=== PATIENT | female | born 1935 | race Caucasian/White ===

== ENCOUNTER 2019-11-29 08:55 | Outpatient (RCR) | payer MEDICARE, SELFPAY ==
[2019-09-14 09:55] LABS: INR 1.6
[2019-10-18 08:56] LABS: INR 1.9; Prothrombin Time 20.4 Seconds (9.64-11.0)
[2019-11-29 09:13] LABS: INR 2.5; Prothrombin Time 25.2 Seconds (9.64-11.0)
== END 2019-12-13 23:59 | disposition home or self-care (01) ==
LOC: CHSLAB 08:55
PROVIDERS: PCP Internal Medicine Cardiovascular Disease; Visit Provider Internal Medicine Cardiovascular Disease
DX: I48.91 Unspecified 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 (principal); Z79.01 Long term (current) use of anticoagulants
CPT/HCPCS: 36415; 85610

== ENCOUNTER 2020-03-27 09:06 | Outpatient (RCR) | payer MEDICARE, SELFPAY ==
[2020-01-04 09:41] LABS: INR 2.3; Prothrombin Time 22.8 Seconds (9.64-11.0)
[2020-02-14 07:43] LABS: INR 2.9; Prothrombin Time 28.5 Seconds (9.64-11.0)
[2020-03-27 09:38] LABS: INR 2.1; Prothrombin Time 20.8 Seconds (9.64-11.0)
== END 2020-04-03 23:59 | disposition home or self-care (01) ==
LOC: CHSLAB 09:06
PROVIDERS: PCP Internal Medicine Cardiovascular Disease; Visit Provider Internal Medicine Cardiovascular Disease
DX: I48.91 Unspecified 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 (principal); Z79.01 Long term (current) use of anticoagulants
CPT/HCPCS: 36415; 85610

== ENCOUNTER 2020-07-17 08:34 | Outpatient (RCR) | payer MEDICARE, SELFPAY ==
[2020-05-08 09:56] LABS: INR 3.2; Prothrombin Time 31.5 Seconds (9.64-11.0)
[2020-06-05 08:43] LABS: INR 2.8; Prothrombin Time 27.6 Seconds (9.64-11.0)
[2020-07-17 09:01] LABS: INR 2.8; Prothrombin Time 27.6 Seconds (9.64-11.0)
== END 2020-08-06 23:59 | disposition home or self-care (01) ==
LOC: CHSLAB 08:34
PROVIDERS: PCP Internal Medicine Cardiovascular Disease; Visit Provider Internal Medicine Cardiovascular Disease
DX: I48.0 Paroxysmal 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 (principal); Z79.01 Long term (current) use of anticoagulants
CPT/HCPCS: 36415; 85610

== ENCOUNTER 2020-10-09 08:09 | Outpatient (RCR) | payer MEDICARE, SELFPAY ==
[2020-08-28 08:28] LABS: INR 2.5; Prothrombin Time 25.5 Seconds (9.64-11.0)
[2020-10-09 08:33] LABS: INR 2.1; Prothrombin Time 22.3 Seconds (9.50-12.10)
== END 2020-11-26 23:59 | disposition home or self-care (01) ==
LOC: CHSLAB 08:09
PROVIDERS: PCP Family Medicine; Visit Provider Internal Medicine Cardiovascular Disease
DX: I48.0 Paroxysmal 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 (principal); Z79.01 Long term (current) use of anticoagulants
CPT/HCPCS: 36415; 85610

== ENCOUNTER 2020-10-18 05:47 | Emergency (ER) | payer MEDICARE, SELFPAY ==
[2020-10-18 06:16] VITALS: BP 125/68; PULSE 93; RESP 20; TEMP 37.5; O2SAT 96
[2020-10-18] MEDS: ACETAMINOPHEN 500 MG TABLET 1000 MG PO (06:23)
[2020-10-18 06:32] LABS: Influenza Control Valid (Valid)
[2020-10-18 06:38] LABS: SARS-CoV-2 Ag Positive (Negative)
--- NOTE | 2020-10-18 06:48 | ED.GENADULT ---
HPI - General Adult General Chief complaint: Unspecified Stated complaint: Body aches Source: patient and family History of Present Illness HPI narrative: This an 85-year-old female that presents with a mild cough otherwise asymptomatic with no shortness of breath no audible wheezing temperature is 37.5? with O2 saturations of 96% on room air. The patient believes that she has been exposed to COVID-19 while at work with people that are not wearing masks. The patient wanted to come in to be tested, again asymptomatic except for mild nonproductive cough. patient with a history of 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, hypertension and hyperlipidemia. Onset (ago): day(s) Severity: mild Related Data Home Medications Medication Instructions Recorded Confirmed hydrochlorothiazide 25 mg tablet 25 mg PO DAILY 05/16/20 10/18/20 losartan 100 mg tablet 100 mg PO DAILY 05/16/20 10/18/20 warfarin 4 mg tablet 4 mg PO DAILY 05/16/20 10/18/20 Allergies Allergy/AdvReac Type Severity Reaction Status Date / Time No Known Allergies Allergy Unknown Verified 05/16/20 10:20 Review of Systems Review of Systems: All systems reviewed & are unremarkable except as noted in HPI and below [facility] Past Medical History Medical History (Updated 10/18/20 @ 06:52 by Grant Alexander MD) Atrial fibrillation, chronic Hyperlipidemia Hypertension Surgical History Surgical History Hx of tonsillectomy Family History Family History Father Family history of malignant neoplasm Social History Social History Smoking status: Never smoker Exam Const: General: cooperative, comfortable, no acute distress and well developed HENMT: Head: normal to inspection General nose exam: Normal external nose present Face and sinus: normal facial exam Mouth: Yes Normal oral and palatal mucosa present Eyes: General: appearance normal, both eyes and all related structures Eyelids: eyelids normal Conjunctivae: conjunctivae normal Sclera: sclerae normal Pupils: Equal, round and reactive pupils present Neck: Neck: normal visual inspection Chest: Chest palpation & inspection: normal inspection of the chest and normal palpation of entire chest wall Resp: Effort & Inspection: normal respiratory effort and able to speak in complete sentences Auscultation: clear to auscultation bilaterally Cardio: Jugular venous distension: no JVD Palpation: normal PMI Rate: regular rate Rhythm: abnormal rhythm Heart sounds: S1 normal heart sound present and S2 normal heart sound present GI: Inspection: normal to inspection Percussion: Yes normal to percussion Back/Spine/Pelvis: Back: no CVA tenderness Skin: General skin exam: normal color and no rashes or lesions noted Course Course Emergency Course: Patient told that she was COVID positive and with no symptoms can be discharged home and advised to self isolate and follow-up with primary care physician if having increased symptoms Vital Signs Vital signs: Vital Signs Temperature 37.5 C 10/18/20 06:16 Pulse Rate 93 10/18/20 06:16 Respiratory Rate 20 10/18/20 06:16 Blood Pressure 125/68 10/18/20 06:16 Pulse Oximetry 96 10/18/20 06:16 Temperature 37.5 C 10/18/20 06:16 Pulse Rate 93 10/18/20 06:16 Respiratory Rate 20 10/18/20 06:16 Blood Pressure 125/68 10/18/20 06:16 Pulse Oximetry 96 10/18/20 06:16 Medical Decision Making Vital Signs Vital Signs: Vital Signs Temperature 37.5 C 10/18/20 06:16 Pulse Rate 93 10/18/20 06:16 Respiratory Rate 20 10/18/20 06:16 Blood Pressure 125/68 10/18/20 06:16 Pulse Oximetry 96 10/18/20 06:16 Temperature 37.5 C 10/18/20 06:16 Pulse Rate 93 10/18/20 06:16 Respiratory Rate 20 10/18/20 06:16 Blood Pressure 125/68 10/18/20 06:16 Pulse Oximetry 96
[2020-10-18 06:55] VITALS: BP 128/80; PULSE 80; RESP 20; TEMP 37.3; O2SAT 96
== END 2020-10-18 07:03 | disposition home or self-care (01) ==
PROVIDERS: Emergency Provider Emergency Medicine; PCP Family Medicine
DX: U07.1 COVID-19 (principal)
CPT/HCPCS: 87426; 87804; 99283; C9803

== ENCOUNTER 2020-10-28 09:32 | Inpatient (IN) | payer MEDICARE, SELFPAY ==
[2020-10-28] VITALS (8 sets, daily range): BP systolic 111–136; BP diastolic 52–63; PULSE 64–74; RESP 16–22; TEMP 35.7–36.6; O2SAT 93–100; BMI 31.0
--- NOTE | ~2020-10-28 | XR_ITS ---
EXAMINATION: XR chest 1V portable DATE: 10/28/2020 12:06 INDICATION: Dyspnea. COVID-19 positive. TECHNIQUE: A single frontal view of the chest was obtained. COMPARISON: None. FINDINGS: There are mild airspace opacities in the right mid and lower lung zones and left lower lung zone with a peripheral predominance. No pleural effusion or pneumothorax. The heart size is normal. IMPRESSION: 1. Mild airspace opacities in the right mid and lower lung zones and left lower lung zone, consistent with pneumonia. Reviewed, dictated and finalized at location B. MACY RESIDENT
--- NOTE | 2020-10-28 09:39 | ECG_ITS ---
Measurements Intervals [place] Rate: 71 P: 80 MA: 148 QRS: -50 QRSD: 108 T: 55 QT: 387 QTc: 422 Interpretive Statements SINUS RHYTHM LEFT AXIS DEVIATION INCOMPLETE RIGHT BUNDLE BRANCH BLOCK BORDERLINE ST ABNORMALITY- ANTEROLATERAL LEADS BASELINE ARTIFACT- II, III, AVR, AVL, V1 BORDERLINE ECG Electronically Signed On 10-28-2020 10:41:38 [employer] WORK[employer] by Adán Gunter D.O.
[2020-10-28] MEDS: SODIUM CHLORIDE 0.9% IV 1,000 ML 999 ML IV CONT ×2 (09:46→16:51)
--- NOTE | 2020-10-28 10:06 | ED.WEAKNESS ---
HPI - Weakness General Source: patient and family Mode of arrival: EMS Limitations: no limitations History of Present Illness HPI Narrative: 85-year-old woman comes in today complaining of weakness and mild shortness of breath. Patient states that she was diagnosed 10 days ago with COVID-19. she has had some diarrhea. Family states that she has not been eating or drinking for the last few days. She denies chest pain, vomiting, sputum production, sore throat, nasal congestion, fever, abdominal pain, blood in her stools, dysuria or hematuria. She denies history of lung disease. MD Complaint: generalized weakness Onset (ago): day(s) Duration: constant Location: generalized Migration: none Severity: moderate Relieving factors: none Exacerbating factors: none Context: recent illness Associated symptoms: loss of appetite, nausea/vomiting, myalgias and shortness of breath Related Data Home Medications Medication Instructions Recorded Confirmed hydrochlorothiazide 25 mg tablet 25 mg PO DAILY 05/16/20 10/28/20 losartan 100 mg tablet 100 mg PO DAILY 05/16/20 10/28/20 warfarin 4 mg tablet 4 mg PO DAILY 05/16/20 10/28/20 Allergies Allergy/AdvReac Type Severity Reaction Status Date / Time No Known Allergies Allergy Unknown Verified 10/24/20 12:11 Review of Systems Constitutional: Constitutional: Denies chills, Denies fever(s) and Reports weakness Eyes: Eyes: Denies change in vision and Denies photophobia ENT: Denies dysphagia, Denies nasal congestion and Denies sore throat Cardiovascular: Cardiovascular: Denies chest pain and Denies radiating jaw, neck or arm pain Respiratory: Respiratory: Denies cough, Reports dyspnea and Denies wheezing Gastrointestinal: Gastrointestinal: Denies abdominal pain, Reports diarrhea, Reports nausea and Denies vomiting Genitourinary: Genitourinary: Denies hematuria and Denies dysuria Musculoskeletal: Musculoskeletal: Denies back pain, Denies arthralgias and Denies joint swelling Integumentary/Breasts: Skin/Breast: Denies pruritus, Denies erythema and Denies rash Neurologic: Denies vertigo, Denies dizziness, Denies syncope and Reports headache(s) Hematologic/Lymphatic: Hematologic/Lymphatic: Denies easy bleeding and Denies easy bruising Allergic/Immunologic: Allergic/Immunologic: Denies lip swelling and Denies throat swelling [facility] Past Medical History Medical History (Updated 10/28/20 @ 17:38 by Duncan Dover MD) Atrial fibrillation, chronic Hyperlipidemia Hypertension Surgical History Surgical History Hx of tonsillectomy Family History Family History Father Family history of malignant neoplasm Social History Social History (Updated 10/28/20 @ 10:11 by Dunacn Dover MD) Smoking status: Never smoker Alcohol intake: former Drinks per week: 7 Substance use: never Living arrangements: with family Gender identity (if verbalized by the patient): Female Spiritual care concerns: No Exam Const: General: alert Other: Follow-up acute distress. oriented to person, place, month HENMT: Head: normal to inspection General nose exam: Normal nares present Face and sinus: normal facial exam Mouth: Yes moist mucous membranes Throat: posterior oropharynx normal Eyes: Conjunctivae: conjunctivae normal Pupils: Equal, round and reactive pupils present EOM: EOMs intact bilaterally Resp: Effort & Inspection: normal respiratory effort Auscultation: wheezes (bibasilar, faint expiratory) Cardio: Rate: regular rate Rhythm: regular rhythm Heart sounds: no murmurs GI: GI Palp: Yes Soft to palpation, No Tenderness to palpation present (GI) and No Guarding due to palpation present (GI) Auscultation: normal bowel sounds Skin: General skin exam: normal color, no jaundice and no pallor Rashes: no rashes Neuro: General: moves all extremities, n
[2020-10-28 10:14] LABS: Eosinophils Absolute Auto 0.01 K/mm3 (0.02-0.50); Eosinophils Percent Auto 0.2 % (1.0-6.0); Hemoglobin 12.4 g/dL (11.7-13.8); Immature Granulocyte Absolute 0.02 K/mm3 (0.00-0.00); Immature Granulocyte Percent A 0.4 % (0.0-0.0); Lymphocytes Absolute Auto 0.41 K/mm3 (1.10-4.50); Lymphocytes Percent Auto 8.1 % (18.0-42.0); Mean Corpuscular HGB Conc 34.4 g/dL (32.0-36.0); Mean Corpuscular Hemoglobin 27.9 pg (27.0-31.0); Mean Corpuscular Volume 81.1 fL (78.0-102.0); Mean Platelet Volume 8.9 fl (9.2-11.8); Monocytes Absolute Auto 0.31 K/mm3 (0.10-0.90); Monocytes Percent Auto 6.2 % (2.0-11.0); Neutrophils Absolute Auto 4.3 K/mm3 (1.7-7.2); Neutrophils Percent Auto 85.1 % (50.0-70.0); Platelet Count Result 267 K/mm3 (150-420); Red Blood Count 4.44 M/mm3 (4.20-5.40); Red Cell Distribution Width 13.3 % (11.6-14.4)
[2020-10-28 10:19] LABS: Base Excess ABG 4.2 mmol/L (0-2); HCO3 ABG 24.5 mmol/L (23-29); Oxygen Content ABG 18.9 %vol (16.0-22.0); Oxygen Saturation ABG 98.9 % (95-97); Oxyhemoglobin 98.2 % (94-100); PCO2 ABG 25.3 mmHg (35-45); PO2 ABG 156.3 mmHg (75-85); Total Hemoglobin 13.5 g/dL
[2020-10-28 10:21] LABS: Device NASAL CANNULA; Site Drawn RIGHT BRACHIAL
[2020-10-28 10:31] LABS: Influenza Control Valid (Valid)
[2020-10-28 10:32] LABS: BNP 14 pg/mL (0-100)
[2020-10-28 10:34] LABS: Alanine Aminotransferase 17 U/L (14-59); Albumin Level 2.8 g/dL (3.4-5.0); Alkaline Phosphatase 68 U/L (46-116); Anion Gap 10 mmol/L (8-16); Aspartate Amino Transferase 21 U/L (15-37); Bilirubin,Total 0.6 mg/dL (0.00-1.00); Blood Urea Nitrogen 38 mg/dL (7-18); Calcium 8.2 mg/dL (8.5-10.1); Carbon Dioxide 26 mmol/L (21-32); Chloride 97 mmol/L (98-108); Estimated Glomerular Filt Rate 30; Glucose 127 mg/dL (70-99); Osmolality Calculated 287 mOsm/kg (285-295); Potassium 3.1 mmol/L (3.5-5.1); Sodium 133 mmol/L (136-145); Total Protein 6.9 g/dL (6.4-8.2)
[2020-10-28 10:35] LABS: D Dimer < 0.19 mg/L (0.19-0.50); INR 1.6; Partial Thromboplastin Time 46.1 SEC (23.90-30.70); Prothrombin Time 16.2 Seconds (9.64-11.0)
[2020-10-28 11:55] LABS: Lactic Acid Reflex 1.3 mmol/L (0.4-2.0)
--- NOTE | 2020-10-28 12:10 | ADMGEN ---
This patient, Quin Talley, was admitted to 2nd Floor Room 209-1. Patient/family oriented to hospital policies and general routines including ID bracelet, bed and alarms, visiting hours, pain management, procedures, bathroom and other care routines, personal items, smoking policy, room service/diet, and visiting hours. Information on how to activate the Rapid Response Team has been discussed. Patient/Family are encouraged to report perceived risks to care and to ask questions if they do not understand what they are told or what they should do.
--- NOTE | 2020-10-28 13:55 | PM.IMHP ---
H&P: HPI History of Present Illness Date/Time: 10/28/20 13:55 Chief Complaint: Shortness of breath, fatigue, chills, and diarrhea Narrative: Quin Talley is a 85 year old female that presented to urgent care with generalized weakness, shortness of breath, chills, diarrhea, and decreased appetite. Patient has a past medical history of A. fib, hyperlipidemia and hypertension. According to patient she tested positive for Covid 1 10/18/2020. Yesterday 10/27/2020 was her last day of quarantine. Patient noted that her condition did not improve, patient states that I was miserable . She noted that she did have episodes of diarrhea ,she had a low-grade temperature of 99.0, she also experiences some shortness of breath with a productive cough ,clear white foamy sputum. Patient also noted that she had no desire to consume any fluids or eat. Patient did not receive any treatment for her Covid diagnosis. Patient sodium level 133 her potassium level 3.1 creatinine 1.65 lactic acid within normal limits. Patient is being admitted for pneumonia and Covid Review of Systems Review of Systems: All systems reviewed & are unremarkable except as noted in HPI and below (10 point system review) [facility] Past Medical History Medical History (Updated 10/28/20 @ 14:03 by JOSE ANGEL Alicea) Atrial fibrillation, chronic Hyperlipidemia Hypertension Surgical History Surgical History Hx of tonsillectomy Family History Family History Father Family history of malignant neoplasm Social History Social History (Updated 10/28/20 @ 10:11 by Duncan Dover MD) Smoking status: Never smoker Alcohol intake: former Drinks per week: 7 Substance use: never Living arrangements: with family Gender identity (if verbalized by the patient): Female Spiritual care concerns: No Meds Home Medications and Allergies Home Medications Medication Instructions Recorded Confirmed Type hydrochlorothiazide 25 mg tablet 25 mg PO DAILY 05/16/20 10/28/20 History losartan 100 mg tablet 100 mg PO DAILY 05/16/20 10/28/20 History warfarin 4 mg tablet 4 mg PO DAILY 05/16/20 10/28/20 History Allergies Allergy/AdvReac Type Severity Reaction Status Date / Time No Known Allergies Allergy Unknown Verified 10/24/20 12:11 Vital Signs Vital Signs - 24 hr 10/28/20 09:35 10/28/20 11:20 10/28/20 11:59 Temperature 97.9 F Pulse Rate 73 68 68 Respiratory Rate 16 Blood Pressure 131/58 L 111/55 L 134/52 L Pulse Oximetry 97 96 100 10/28/20 12:47 Temperature 97.2 F L Pulse Rate 66 Respiratory Rate 20 Blood Pressure 125/63 Pulse Oximetry 98 Exam Narrative: Exam Narrative: GENERAL: Fatigued elderly female, in no apparent distress. HEAD: normocephalic, atraumatic. EYES: PERRL. Sclera clear/white. Vision is grossly intact. EARS: External ears normal, auditory canals clear and without drainage, TMs normal without perforation. Hearing grossly intact. NOSE: External nose normal with no obvious nasal discharge, nares without redness, no rhinorrhea. THROAT: Mucous membranes moist, posterior pharynx clear. NECK: Neck supple, non-tender without lymphadenopathy, masses or thyromegaly. CARDIOVASCULAR: Regular rate and rhythm without murmurs, gallops, or rubs. RESPIRATORY: Wheezing GASTROINTESTINAL: Abdomen soft, non-tender, nondistended. Bowel sounds are active. No hepato-splenomegaly, or palpable masses. No guarding. SKIN: warm, intact with no suspicious lesions or rash, good texture and turgor. NEURO: awake, alert, and oriented to person, place and time. There were no obvious focal neurologic abnormalities. Steady gait EXTREMITIES: Normal range of motion. No edema. No calf tenderness. Negative Homans sign bilaterally. BACK: Nontender without deformity or crepitance. No flank tenderness. H&P: Results Labs Labs: Short CBC
--- NOTE | 2020-10-28 15:34 | PC.NURSE ---
Patient transferred up to commode and back to bed. SPO2 99-100%RA. 93% lying flat in bed 1 liter o2 applied
[2020-10-28] MEDS: LOSARTAN POTASSIUM 50 MG TABLET 100 MG PO (15:52)
[2020-10-28] MEDS: SODIUM CHLORIDE 0.9% IV 1,000 ML 150 ML IV CONT (15:52)
[2020-10-28] MEDS: HYDROcodone/acetaminophen (*CRX) 5-325 MG TABLET 1 TAB PO (15:54)
[2020-10-28] MEDS: WARFARIN (*PBKC) 2 MG TABLET 4 MG PO (16:51)
[2020-10-28] MEDS: BENZONATATE 100 MG CAPSULE PO (16:51)
[2020-10-28 18:38] LABS: Troponin I 8.8 ng/L (0.00-60.4)
[2020-10-28 18:39] LABS: Add Urine Microscopic? YES; Appearance Urine Clear (Clear); Bilirubin Urine Negative (Negative); Blood Urine Negative (Negative); Color Urine Yellow (Yellow); Glucose Urine UA Negative (Negative); Ketones Urine Trace (Negative); Leukocyte Esterase Ur Negative LEU/UL (Negative); Nitrate Urine Negative (Negative); Protein Urine Negative (Negative); Specific Grav Ur 1.025 (1.010-1.020); Urobilinogen Urine Negative mg/dL (0.2-1.0)
[2020-10-28 18:40] LABS: Bacteria Urine Trace /hpf; Mucus Urine Few /lpf; RBC Urine None seen /hpf (0-2); Squamous Epithelial Cell Urine Rare /hpf (Few); WBC Urine None seen /hpf (0-3)
[2020-10-28] MEDS: guaiFENesin 12 HR 600 MG TABCR PO (21:54)
[2020-10-28] MEDS: DOXYCYCLINE HYCLATE 100 MG TABLET PO (21:54)
[2020-10-28] MEDS: BUDESONIDE/FORMOTEROL 80/4.5 MCG 6.9 GM INHALER (*SP) 2 PUFF INHALATION (21:54)
[2020-10-29] VITALS (7 sets, daily range): BP systolic 111–152; BP diastolic 47–70; PULSE 57–68; RESP 18–20; TEMP 36.2–37.3; O2SAT 92–98
--- NOTE | 2020-10-29 | PC.NURSE ---
Pt. called for assistance to get up, upon assessment, pt. c/o feeling very nauseated. Pt. assisted to BSC and had small loose stool. Pt. given Zofran for nausea and SBA back to bed. Pt. VSS, call lou in reach.
[2020-10-29] MEDS: ONDANSETRON INJ 4 MG/2 ML VIAL IV PUSH (00:20)
[2020-10-29] MEDS: SODIUM CHLORIDE 0.9% IV 1,000 ML 150 ML IV CONT ×3 (00:32→14:52)
[2020-10-29 01:10] LABS: Troponin I 12.6 ng/L (0.00-60.4)
[2020-10-29 05:54] LABS: Basophils Absolute Auto 0.01 K/mm3 (0.00-0.10); Basophils Percent Auto 0.2 % (0.0-1.0); Eosinophils Absolute Auto 0.01 K/mm3 (0.02-0.50); Eosinophils Percent Auto 0.2 % (1.0-6.0); Hematocrit 31.8 % (35.0-42.0); Hemoglobin 10.2 g/dL (11.7-13.8); Immature Granulocyte Absolute 0.02 K/mm3 (0.00-0.00); Immature Granulocyte Percent A 0.5 % (0.0-0.0); Lymphocytes Absolute Auto 0.46 K/mm3 (1.10-4.50); Lymphocytes Percent Auto 11.4 % (18.0-42.0); Mean Corpuscular HGB Conc 32.1 g/dL (32.0-36.0); Mean Corpuscular Hemoglobin 27.1 pg (27.0-31.0); Mean Corpuscular Volume 84.6 fL (78.0-102.0); Mean Platelet Volume 9.1 fl (9.2-11.8); Monocytes Absolute Auto 0.35 K/mm3 (0.10-0.90); Monocytes Percent Auto 8.7 % (2.0-11.0); Neutrophils Absolute Auto 3.2 K/mm3 (1.7-7.2); Platelet Count Result 205 K/mm3 (150-420); Red Blood Count 3.76 M/mm3 (4.20-5.40); Red Cell Distribution Width 13.5 % (11.6-14.4)
[2020-10-29 06:08] LABS: INR 1.7; Prothrombin Time 18.2 Seconds (9.50-12.10)
[2020-10-29 06:39] LABS: Alanine Aminotransferase 13 U/L (14-59); Albumin Level 2.4 g/dL (3.4-5.0); Alkaline Phosphatase 58 U/L (46-116); Anion Gap 10 mmol/L (8-16); Aspartate Amino Transferase 29 U/L (15-37); Bilirubin,Total 0.4 mg/dL (0.00-1.00); Blood Urea Nitrogen 35 mg/dL (7-18); Calcium 7.1 mg/dL (8.5-10.1); Carbon Dioxide 28 mmol/L (21-32); Chloride 103 mmol/L (98-108); Estimated CRCL calculation 22 ml/min; Estimated Glomerular Filt Rate 26; Glucose 96 mg/dL (70-99); Osmolality Calculated 300 mOsm/kg (285-295); Potassium 3.3 mmol/L (3.5-5.1); Sodium 141 mmol/L (136-145); Total Protein 5.1 g/dL (6.4-8.2)
[2020-10-29] MEDS: POTASSIUM CHLORIDE 20 MEQ TABLET 40 MEQ PO (09:26)
[2020-10-29] MEDS: BENZONATATE 100 MG CAPSULE PO ×3 (11:10→16:51)
[2020-10-29] MEDS: DOXYCYCLINE HYCLATE 100 MG TABLET PO ×2 (11:11→21:50)
[2020-10-29] MEDS: DEXAMETHASONE SOD PHOS INJ 4 MG/ML VIAL 6 MG IV PUSH (11:11)
[2020-10-29] MEDS: BUDESONIDE/FORMOTEROL 80/4.5 MCG 6.9 GM INHALER (*SP) 2 PUFF INHALATION ×2 (11:11→21:50)
[2020-10-29] MEDS: POTASSIUM CHLORIDE 20 MEQ TABLET 40 MEQ (11:12)
[2020-10-29] MEDS: guaiFENesin 12 HR 600 MG TABCR PO ×2 (11:12→21:50)
--- NOTE | 2020-10-29 12:33 | PM.IMPN ---
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: Code(s): M76.32 - Iliotibial band syndrome, left leg Status: Chronic Assessment and Plan: 10/29/2020 Follow-up with primary care physician, patient has Tylenol and [place] for pain control as needed (4) Atrial fibrillation, chronic: Code(s): I48.20 - Chronic 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, unspecified Status: Chronic Assessment and Plan: 10/29/2020 continue Coumadin with pharmacy to dose and follow, discussion today is that since patient is on doxycycline this likely will cause INR levels to increase currently 1.7, telemetry monitoring, rate controlled at this time (5) Hypertension: Code(s): I10 - Essential (primary) hypertension Status: Chronic Assessment and Plan: 10/29/2020 Blood pressure stable, ontinue losartan 100 mg daily, adjust medication as needed Subjective Date/time seen: 10/29/20 12:33 Patient denies any issues this time. No questions or concerns. States her breathing is getting better. Patient's nurse indicated patient was having difficulty urinating. Patient stated she absolutely did not want a Kumar catheter placed because it makes urinating worse. Will allow patient to attempt to void on her own and at this time she has voided 100 mL. Bladder scan ordered. Review of Systems Constitutional: Constitutional: Reports no additional constitutional complaints Cardiovascular: Cardiovascular: Reports no additional cardiovascular complaints Respiratory: Respiratory: Reports no additional respiratory complaints Gastrointestinal: Gastrointestinal: Reports no additional gastrointestinal complaints Neurologic: Reports system reviewed and no additional complaints, except as documented Exam Const: General: cooperative, comfortable, no acute distress, alert and awake Nutritional Appearance: overweight Resp: Effort & Inspection: normal respiratory effort Auscultation: clear to auscultation bilaterally (But a little diminished) Cardio: Rate: regular rate Rhythm: regular rhythm Heart sounds: S1 normal heart sound present and S2 normal heart sound present Neuro: General: oriented to person, oriented to place and oriented to time Cranial nerves: Yes CN's II-XII intact bilaterally (grossly intact) Objective Data Vital Signs Vital Signs: Vital Signs - 24 hr 10/28/20 12:47 10/28/20 16:00 10/28/20 20:00 Temperature 97.2 F L 96.2 F L 97.2 F L Pulse Rate 66 74 64 Respiratory Rate 20 22 H 20 Blood Pressure 125/63 136/58 L 128/58 L Pulse Oximetry 98 97 93 10/28/20 20:05 10/28/20 22:34 10/29/20 00:00 Temperature 98.1 F Pulse Rate 64 64 57 L Respiratory Rate 20 Blood Pressure 135/55 L Pulse Oximetry 94 10/29/20 00:38 10/29/20 03:48 10/29/20 08:00 Temperature 99.1 F 97.4 F L Pulse Rate 57 L 65 61 Respiratory Rate 20 20 20 Blood Pressure 126/70 111/47 L Pulse Oximetry 94 97 95 Intake/Output Intake/Output: Intake & Output 10/26/20 10/27/20 10/28/20 10/29/20 23:59 23:59 23:59 23:59 Intake Total 1700 3070 Output Total 1200 300 Balance 500 2770 Meds/Results Medications: Active Medications Generic Name Dose Route Start Last Admin Trade Name Freq PRN Reason Stop Dose Admin Acetaminophen 1,000 mg 10/28/20 12:58 Acetaminophen 500 Mg Tablet PO Q6H PRN Mild Pain (1-3) or Fever Hydrocodone Bitart/Acet
[2020-10-29] MEDS: WARFARIN (*PBKC) 2 MG TABLET 4 MG PO (16:51)
[2020-10-30] VITALS: BP 123/65; PULSE 60; RESP 18; TEMP 36.1; O2SAT 91
[2020-10-30 04:00] VITALS: BP 119/50; PULSE 68; RESP 20; TEMP 36.1; O2SAT 95
[2020-10-30 06:12] LABS: INR 2.7; Prothrombin Time 28.6 Seconds (9.50-12.10)
[2020-10-30 06:51] LABS: Hematocrit 31.4 % (35.0-42.0); Hemoglobin 10.4 g/dL (11.7-13.8); Mean Corpuscular HGB Conc 33.1 g/dL (32.0-36.0); Mean Corpuscular Hemoglobin 27.9 pg (27.0-31.0); Mean Corpuscular Volume 84.2 fL (78.0-102.0); Mean Platelet Volume 9.3 fl (9.2-11.8); Platelet Count Result 254 K/mm3 (150-420); Red Blood Count 3.73 M/mm3 (4.20-5.40); Red Cell Distribution Width 13.7 % (11.6-14.4); White Blood Count 5.5 K/mm3 (4.8-10.8)
[2020-10-30 06:55] LABS: Anion Gap 13 mmol/L (8-16); Blood Urea Nitrogen 29 mg/dL (7-18); Calcium 7.6 mg/dL (8.5-10.1); Carbon Dioxide 23 mmol/L (21-32); Chloride 106 mmol/L (98-108); Estimated CRCL calculation 21 ml/min; Estimated Glomerular Filt Rate 25; Glucose 126 mg/dL (70-99); Osmolality Calculated 301 mOsm/kg (285-295); Potassium 3.6 mmol/L (3.5-5.1); Sodium 142 mmol/L (136-145)
[2020-10-30 08:00] VITALS: BP 148/59; PULSE 56; RESP 16; TEMP 36.2; O2SAT 95
[2020-10-30] MEDS: DEXAMETHASONE SOD PHOS INJ 4 MG/ML VIAL 6 MG IV PUSH (09:28)
[2020-10-30] MEDS: BUDESONIDE/FORMOTEROL 80/4.5 MCG 6.9 GM INHALER (*SP) 2 PUFF INHALATION (09:29)
[2020-10-30] MEDS: BENZONATATE 100 MG CAPSULE PO (09:30)
[2020-10-30] MEDS: DOXYCYCLINE HYCLATE 100 MG TABLET PO (09:30)
[2020-10-30] MEDS: guaiFENesin 12 HR 600 MG TABCR PO (09:30)
[2020-10-30] MEDS: LOSARTAN POTASSIUM 50 MG TABLET 100 MG PO (09:30)
--- NOTE | 2020-10-30 11:43 | PM.DS ---
DS: Admitting Diagnosis Admitting Diagnosis Admitting Diagnosis: COVID pneumonia, JUSTYN, Dehydration. <Shashi AnisaDENTON SanchezC - Last Filed: 10/30/20 12:19> DS: Discharge Diagnosis Discharge Diagnosis (1) COVID-19: Code(s): U07.1 - COVID-19 <Shashi AnisaRyan Landis APN-C - Last Filed: 10/30/20 12:19> Status: Acute <Shashi AnisaDENTON SanchezC - Last Filed: 10/30/20 12:19> Assessment and Plan: 10/29/2020 Patient tested positive for 10/18/2020, recommendation from ID is to start Decadron, supplemental oxygen as needed, patient's SpO2 at rest and on room air 95% 10/30/2020 will continue Decadron as PO on DC to complete 8 more days of Tx, Pt have no breathing issues at this time, she is able to walk about her room without SOB or increased WOB <DENTON AguilarC - Last Filed: 10/30/20 12:19> (2) CAP (community acquired pneumonia): Code(s): J18.9 - Pneumonia, unspecified organism <Shashi Landis APN-C - Last Filed: 10/30/20 12:19> Status: Acute <Shashi AnisaDENTON SanchezC - Last Filed: 10/30/20 12:19> Assessment and Plan: 10/29/2020 continue Rocephin and doxycycline, blood cultures still pending, supplemental oxygen as needed, WBC within normal limits 10/30/2020 Continue Doxycycline on DC for 5 days <Shashi Landis APN-C - Last Filed: 10/30/20 12:19> (3) 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: Code(s): M76.32 - Iliotibial band syndrome, left leg <DENTON AguilarC - Last Filed: 10/30/20 12:19> Status: Chronic <Shashi Landis APN-C - Last Filed: 10/30/20 12:19> Assessment and Plan: 10/29/2020 Follow-up with primary care physician, patient has Tylenol and [place] for pain control as needed 10/30/2020 according to the MAR Pt has not needed her PRN pain medication, she is to f/u with PCP after DC <JUSTIN Aguilar - Last Filed: 10/30/20 12:19> (4) Atrial fibrillation, chronic: Code(s): I48.20 - Chronic 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, unspecified <JUSTIN Aguilar - Last Filed: 10/30/20 12:19> Status: Chronic <JUSTIN Aguilar - Last Filed: 10/30/20 12:19> Assessment and Plan: 10/29/2020 continue Coumadin with pharmacy to dose and follow, discussion today is that since patient is on doxycycline this likely will cause INR levels to increase currently 1.7, telemetry monitoring, rate controlled at this time 10/30/2020 Continue Coumadin and f/u with PCP for new INR, Pt will need INR rechecked after Doxycycline is complete, HR controlled and has been SR. <JUSTIN Aguilar - Last Filed: 10/30/20 12:19> (5) Hypertension: Code(s): I10 - Essential (primary) hypertension <JUSTIN Aguilar - Last Filed: 10/30/20 12:19> Status: Chronic <JUSTIN Aguilar - Last Filed: 10/30/20 12:19> Assessment and Plan: 10/29/2020 Blood pressure stable, continue losartan 100 mg daily, adjust medication as needed 10/30/2020 Blood pressure has been stable, continue current regiment <JUSTIN Aguilar - Last Filed: 10/30/20 12:19> DS: Summary Hospital Course Hospital Course: Pt has had no breathing issues and is ambulating in the room without SOB or increased WOB, she did have some urinary retention but was able to void with some residual urine, Pt did refuse a franz cath stating it caused her NOT to be able to void once it was removed. Pt will follow up closely with PCP. <JUSTIN Aguilar - Last Filed: 10/30/20 12:19> Time Spent with Patient Time attestation: Total time spent providing and/or coordinating discharge services: < 30 minutes <JUSTIN Aguilar - Last Filed: 10/30/20 12:19> Exam Const: General: cooperative, comfortable, no acute distress, alert, awake and Physically active <JUSTIN Aguilar - Last Filed: 10/30/20 12:19> Nutritional Appearance: overweight <JUSTIN Aguilar - Last Filed: 10/30/20 12:19> Resp: Effort & I
[2020-10-30 12:00] VITALS: BP 136/66; PULSE 64; RESP 18; TEMP 36.3; O2SAT 94
--- NOTE | 2020-10-31 11:36 | PC.NURSE ---
Pt states she received and understood her discharge instructions. Has no other comments.
== END 2020-10-30 13:00 | disposition home or self-care (01) | DRG 177 ==
LOC: CHSED 09:36 → CHS2ND 11:55
PROVIDERS: Nurse Practitioner; Nurse Practitioner Family; Admitting Provider Emergency Medicine; Emergency Provider Emergency Medicine; PCP Family Medicine; Visit Provider Emergency Medicine
DX: U07.1 COVID-19 (principal); J12.82 Pneumonia due to coronavirus disease 2019; I48.20 Chronic 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, unspecified; N17.9 Acute kidney failure, unspecified; E86.0 Dehydration; E78.5 Hyperlipidemia, unspecified; I10 Essential (primary) hypertension; M76.32 Iliotibial band syndrome, left leg; Z79.01 Long term (current) use of anticoagulants
CPT/HCPCS: 36415; 36600; 71045; 80048; 80053; 81001; 82805; 83605; 83880; 84484; 85025; 85027; 85380; 85610; 85730; 87040; 87804; 93005; 96360; 99285; A9270; J0696; J1100; J2405; J7030

== ENCOUNTER 2021-02-05 07:51 | Outpatient (RCR) | payer MEDICARE, SELFPAY ==
[2020-12-05 08:17] LABS: INR 3.2; Prothrombin Time 32.3 Seconds (9.50-12.10)
[2021-01-02 08:16] LABS: INR 2.2
[2021-02-05 08:22] LABS: INR 1.9
== END 2021-03-05 23:59 | disposition home or self-care (01) ==
LOC: CHSLAB 07:51
PROVIDERS: PCP Family Medicine; Visit Provider Internal Medicine Cardiovascular Disease
DX: I48.0 Paroxysmal 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 (principal); Z79.01 Long term (current) use of anticoagulants
CPT/HCPCS: 36415; 85610

== ENCOUNTER 2021-06-05 07:58 | Outpatient (RCR) | payer MEDICARE, SELFPAY ==
[2021-03-19 08:19] LABS: INR 2.5; Prothrombin Time 25.6 Seconds (9.50-12.10)
[2021-04-30 09:07] LABS: INR 2.7; Prothrombin Time 27.7 Seconds (9.50-12.10)
[2021-06-05 08:50] LABS: INR 2.2; Prothrombin Time 22.8 Seconds (9.50-12.10)
== END 2021-06-17 23:59 | disposition home or self-care (01) ==
LOC: CHSLAB 07:58
PROVIDERS: PCP Family Medicine; Visit Provider Internal Medicine Cardiovascular Disease
DX: I48.0 Paroxysmal 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 (principal); Z79.01 Long term (current) use of anticoagulants
CPT/HCPCS: 36415; 85610

== ENCOUNTER 2021-10-01 08:11 | Outpatient (RCR) | payer MEDICARE, SELFPAY ==
[2021-07-16 08:49] LABS: INR 2.7; Prothrombin Time 27.2 Seconds (9.50-12.10)
[2021-08-28 08:25] LABS: INR 2.4; Prothrombin Time 24.9 Seconds (9.50-12.10)
[2021-10-01 08:43] LABS: INR 3.4; Prothrombin Time 34.3 Seconds (9.50-12.10)
== END 2021-10-14 23:59 | disposition home or self-care (01) ==
LOC: CHSLAB 08:11
PROVIDERS: PCP Family Medicine; Visit Provider Internal Medicine Cardiovascular Disease
DX: I48.0 Paroxysmal 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 (principal); Z79.01 Long term (current) use of anticoagulants
CPT/HCPCS: 36415; 85610

== ENCOUNTER 2021-10-15 08:29 | Outpatient (CLI) | payer MEDICARE, SELFPAY ==
--- NOTE | ~2021-10-15 | US_ITS ---
EXAMINATION: US carotid duplex BI DATE: 10/15/2021 09:10 INDICATION: Left carotid bruit. TECHNIQUE: Grayscale, color Doppler, and pulsed Doppler images of the cervical carotid arteries were obtained. The degree of vessel stenosis is placed in one of the following categories: normal, <50%, 5 0-69%, >=70% but less than near-occlusion, near-occlusion, or total occlusion. Note that percent sten osis relative to normal distal artery lumen diameter is indirectly measured from velocity measurement s as described by Lc, et al. Radiology 2003; [id number]. COMPARISON: Ultrasound 12/15/2017 FINDINGS: RIGHT: The right common carotid artery (CCA) peak systolic velocity (PSV) is 83 cm/s. The right internal car otid artery (ICA) PSV is 104 cm/s. The right ICA end-diastolic velocity (EDV) is 22 cm/s. The right I CA/CCA PSV ratio is 1.2. Grayscale and color Doppler images yield an estimate of <50% diameter reduct ion from plaque in the ICA. There is antegrade flow in the right vertebral artery. LEFT: The left CCA PSV is 103 cm/s. The left ICA PSV is 87 cm/s. The left ICA EDV is 24 cm/s. The left ICA/ CCA PSV ratio is 0.8. Grayscale and color Doppler images yield an estimate of <50% diameter reduction from plaque in the ICA. There is antegrade flow in the left vertebral artery. IMPRESSION: 1. <50% stenosis in the right internal carotid artery. 2. <50% stenosis in the left internal carotid artery. Reviewed, dictated and finalized at location A. LER
== END 2021-10-15 08:30 | disposition home or self-care (01) ==
PROVIDERS: PCP Family Medicine; Visit Provider Internal Medicine Cardiovascular Disease
DX: R09.89 Other specified symptoms and signs involving the circulatory and respiratory systems (principal); I65.23 Occlusion and stenosis of bilateral carotid arteries
CPT/HCPCS: 93880

== ENCOUNTER 2021-12-22 07:42 | Outpatient (CLI) | payer MEDICARE, SELFPAY ==
[2021-12-22 07:55] LABS: Basophils Absolute Auto 0.04 K/mm3 (0.00-0.10); Basophils Percent Auto 0.7 % (0.0-1.0); Eosinophils Absolute Auto 0.19 K/mm3 (0.02-0.50); Eosinophils Percent Auto 3.2 % (1.0-6.0); Hematocrit 39.2 % (35.0-42.0); Hemoglobin 12.2 g/dL (11.7-13.8); Immature Granulocyte Absolute 0.02 K/mm3 (0.00-0.00); Immature Granulocyte Percent A 0.3 % (0.0-0.0); Lymphocytes Absolute Auto 1.14 K/mm3 (1.10-4.50); Lymphocytes Percent Auto 19.4 % (18.0-42.0); Mean Corpuscular HGB Conc 31.1 g/dL (32.0-36.0); Mean Corpuscular Hemoglobin 27.5 pg (27.0-31.0); Mean Corpuscular Volume 88.3 fL (78.0-102.0); Mean Platelet Volume 8.9 fl (9.2-11.8); Monocytes Absolute Auto 0.35 K/mm3 (0.10-0.90); Neutrophils Absolute Auto 4.1 K/mm3 (1.7-7.2); Neutrophils Percent Auto 70.4 % (50.0-70.0); Platelet Count Result 319 K/mm3 (150-420); Red Blood Count 4.44 M/mm3 (4.20-5.40); White Blood Count 5.9 K/mm3 (4.8-10.8)
[2021-12-22 09:25] LABS: Alanine Aminotransferase 23 U/L (14-59); Albumin Level 3.2 g/dL (3.4-5.0); Alkaline Phosphatase 118 U/L (46-116); Anion Gap 9 mmol/L (8-16); Aspartate Amino Transferase 15 U/L (15-37); Bilirubin,Total 0.3 mg/dL (0.00-1.00); Blood Urea Nitrogen 17 mg/dL (7-18); Calcium 8.4 mg/dL (8.5-10.1); Carbon Dioxide 28 mmol/L (21-32); Chloride 106 mmol/L (98-108); Cholesterol 238 mg/dL (0-200); Estimated Glomerular Filt Rate 44; Glucose 99 mg/dL (70-99); HDL Direct 47 mg/dL (40-60); LDL Cholesterol Calculated 158 mg/dL (<130); Osmolality Calculated 297 mOsm/kg (285-295); Potassium 3.9 mmol/L (3.5-5.1); Sodium 143 mmol/L (136-145); Thyroid Stimulating Hormone 3.07 uIU/mL (0.36-3.74); Total Protein 5.8 g/dL (6.4-8.2); Triglycerides 165 mg/dL (0-150)
[2021-12-22 13:07] LABS: Creatinine Urine 259.27 mg/dL (40-278); MALB Creatinine Ratio 6.9 mg/g (0-30); Microalbumin Urine Random 18.1 mg/L
== END 2021-12-22 07:43 | disposition home or self-care (01) ==
LOC: CHSLAB 07:44
PROVIDERS: PCP Family Medicine; Visit Provider Family Medicine
DX: E78.2 Mixed hyperlipidemia (principal); I10 Essential (primary) hypertension
CPT/HCPCS: 36415; 80053; 80061; 82043; 84443; 85025

== ENCOUNTER 2022-02-19 07:46 | Outpatient (RCR) | payer MEDICARE, SELFPAY ==
[2021-12-03 10:00] LABS: INR 3.3; Prothrombin Time 33.3 Seconds (9.50-12.10)
[2022-01-08 08:58] LABS: INR 2.2; Prothrombin Time 22.4 Seconds (9.50-12.10)
[2022-02-19 08:28] LABS: INR 4.7; Prothrombin Time 46.6 Seconds (9.50-12.10)
== END 2022-03-03 23:59 | disposition home or self-care (01) ==
LOC: CHSLAB 07:46
PROVIDERS: PCP Family Medicine; Visit Provider Internal Medicine Cardiovascular Disease
DX: I48.0 Paroxysmal 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 (principal); Z79.01 Long term (current) use of anticoagulants
CPT/HCPCS: 36415; 85610

== ENCOUNTER 2022-05-14 08:30 | Outpatient (RCR) | payer MEDICARE, SELFPAY ==
[2022-03-05 11:39] LABS: INR 2.7; Prothrombin Time 27.2 Seconds (9.50-12.10)
[2022-04-24 08:21] LABS: INR 4.7; Prothrombin Time 45.1 Seconds (9.50-12.10)
[2022-05-14 08:54] LABS: INR 2.8; Prothrombin Time 28.7 Seconds (9.50-12.10)
== END 2022-06-03 23:59 | disposition home or self-care (01) ==
LOC: CHSLAB 08:30
PROVIDERS: PCP Family Medicine; Visit Provider Internal Medicine Cardiovascular Disease
DX: I48.0 Paroxysmal 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 (principal); Z79.01 Long term (current) use of anticoagulants
CPT/HCPCS: 36415; 85610

== ENCOUNTER 2022-09-10 11:29 | Emergency (ER) | payer MEDICARE, SELFPAY ==
[2022-09-10 11:42] VITALS: BP 150/81; PULSE 75; TEMP 35.7; O2SAT 100
[2022-09-10] MEDS: PHYTONADIONE INJ 10 MG/ML AMP SUB-Q (12:20)
--- NOTE | 2022-09-10 13:07 | ED.RECABL ---
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 Otherwise the patient is comfortable. Related Data Home Medications Medication Instructions Recorded Confirmed hydrochlorothiazide 25 mg tablet 25 mg PO DAILY 05/16/20 11/08/20 losartan 100 mg tablet 100 mg PO DAILY 05/16/20 11/08/20 warfarin 4 mg tablet 4 mg PO DAILY 05/16/20 11/08/20 Allergies Allergy/AdvReac Type Severity Reaction Status Date / Time No Known Allergies Allergy Unknown Verified 11/08/20 09:49 Review of Systems Review of Systems: All systems reviewed & are unremarkable except as noted in HPI and below Constitutional: Constitutional: Reports as per HPI Eyes: Eyes: Reports as per HPI ENT: Reports system reviewed and no additional complaints, except as documented Cardiovascular: Cardiovascular: Reports as per HPI Respiratory: Respiratory: Reports as per HPI PMFSH Past Medical History Medical History JUSTYN (acute kidney injury) Atrial fibrillation, chronic COVID-19 Hyperlipidemia Hypertension Pneumonia Surgical History Surgical History Hx of tonsillectomy Family History Family History Father Family history of malignant neoplasm Social History Social History Smoking status: Never smoker Alcohol intake: former Drinks per week: 7 Substance use: never Gender identity (if verbalized by the patient): Female Spiritual care concerns: No Exam Const: General: healthy appearing Nutritional Appearance: well nourished Orientation/consciousness: patient oriented x3 HENMT: Head: normal to inspection Face/Nose/Sinus: Normal external nose present Face and sinus: normal facial exam Eyes: Conjunctivae: conjunctivae normal Pupils: Equal, round and reactive pupils present EOM: EOMs intact bilaterally Neck: Neck: normal visual inspection Chest: Chest palpation & inspection: normal inspection of the chest Resp: Effort & Inspection: normal respiratory effort Auscultation: clear to auscultation bilaterally Cardio: Rate: regular rate Rhythm: regular rhythm GI: GI Palp: Yes Soft to palpation Auscultation: normal bowel sounds : General: Yes bladder normal to palpation Skin: General skin exam: normal color Rashes: no rashes Neuro: General: patient oriented x3 Cranial nerves: Yes Nystagmus not present Psych: Mental Status: mental status grossly normal Affect: normal affect Course Course Emergency Course: Currently no bleeding, patient did receive a dose of 10mg subQ vitamin K. Vital Signs Vital signs: Vital Signs Temperature 35.7 C L 09/10/22 11:42 Pulse Rate 75 09/10/22 11:42 Blood Pressure 150/81 H 09/10/22 11:42 Pulse Oximetry 100 09/10/22 11:42 Oxygen Delivery Room Air 09/10/22 11:42 Temperature 35.7 C L 09/10/22 11:42 Pulse Rate 75 09/10/22 11:42 Blood Pressure 150/81 H 09/10/22 11:42 Pulse Oximetry 100 09/10/22 11:42 Oxygen Delivery Room Air 09/10/22 11:42 Critical Care Time Critical Care Time Critical Care Time: No Discharge Plan Discharge Clinical Impression: Warfarin-induced coagulopathy Patient Disposition: Home, Self-Care Condition: Stable Instructions: Antibiotic Form
[2022-09-10 13:21] VITALS: BP 147/50; PULSE 66; RESP 20; TEMP 36.7; O2SAT 95
== END 2022-09-10 13:24 | disposition home or self-care (01) ==
PROVIDERS: Emergency Provider Emergency Medicine; PCP Family Medicine
DX: D68.8 Other specified coagulation defects (principal); I48.91 Unspecified 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; E78.5 Hyperlipidemia, unspecified; I10 Essential (primary) hypertension
CPT/HCPCS: 36415; 85610; 96372; 99283; J3430

== ENCOUNTER 2022-09-11 08:24 | Outpatient (RCR) | payer MEDICARE, SELFPAY ==
[2022-06-19 08:07] LABS: INR 2.4; Prothrombin Time 24.5 Seconds (9.50-12.10)
[2022-08-05 08:47] LABS: INR 4.9; Prothrombin Time 47.1 Seconds (9.50-12.10)
[2022-09-10 09:27] LABS: INR 12.2
[2022-09-10 11:05] LABS: INR 12.7
[2022-09-11 08:46] LABS: INR 2.2
== END 2022-09-17 23:59 | disposition home or self-care (01) ==
LOC: CHSLAB 08:24
PROVIDERS: PCP Family Medicine; Visit Provider Internal Medicine Cardiovascular Disease
DX: I48.0 Paroxysmal 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 (principal); Z79.01 Long term (current) use of anticoagulants
CPT/HCPCS: 36415; 85610

== ENCOUNTER 2022-09-23 15:26 | Outpatient (CLI) | payer MEDICARE, SELFPAY ==
--- NOTE | ~2022-09-23 | XR_ITS ---
Right wrist Technique: PA, oblique, lateral, and ulnar deviation views were obtained. Clinical History: Pain Findings: No acute fracture or dislocation is seen. There is degenerative change at the STT articulat ions. Soft tissues are unremarkable. 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
--- NOTE | ~2022-09-23 | XR_ITS ---
Left wrist Technique: PA, oblique, lateral, and ulnar deviation views were obtained. Clinical History: Pain Findings: No acute fracture or dislocation is seen. Osseous alignment is anatomic. Joint spaces are p reserved. Soft tissues are unremarkable. Impression: Unremarkable left wrist radiographs. Reviewed, dictated and finalized at location [] /SYQ 13 NAV/C2 OPERATOR Impression: Unremarkable left wrist radiographs.
[2022-09-23 16:08] LABS: Basophils Absolute Auto 0.02 K/mm3 (0.00-0.10); Basophils Percent Auto 0.3 % (0.0-1.0); Eosinophils Absolute Auto 0.05 K/mm3 (0.02-0.50); Eosinophils Percent Auto 0.7 % (1.0-6.0); Hematocrit 29.8 % (35.0-42.0); Hemoglobin 9.1 g/dL (11.7-13.8); Immature Granulocyte Absolute 0.03 K/mm3 (0.00-0.00); Immature Granulocyte Percent A 0.4 % (0.0-0.0); Lymphocytes Absolute Auto 0.91 K/mm3 (1.10-4.50); Lymphocytes Percent Auto 12.6 % (18.0-42.0); Mean Corpuscular HGB Conc 30.5 g/dL (32.0-36.0); Mean Corpuscular Hemoglobin 23.8 pg (27.0-31.0); Mean Platelet Volume 8.9 fl (9.2-11.8); Monocytes Absolute Auto 0.36 K/mm3 (0.10-0.90); Neutrophils Absolute Auto 5.9 K/mm3 (1.7-7.2); Platelet Count Result 489 K/mm3 (150-420); Red Blood Count 3.82 M/mm3 (4.20-5.40); Red Cell Distribution Width 16.1 % (11.6-14.4); White Blood Count 7.2 K/mm3 (4.8-10.8)
[2022-09-23 16:19] LABS: Rheumatoid Factor Screen Negative (Negative)
[2022-09-23 16:21] LABS: Anion Gap 7 mmol/L (8-16); Blood Urea Nitrogen 11 mg/dL (7-18); CRP 6.5 mg/dL (0.0-0.9); Calcium 8.9 mg/dL (8.5-10.1); Carbon Dioxide 33 mmol/L (21-32); Chloride 98 mmol/L (98-108); Estimated Glomerular Filt Rate 44; Glucose 101 mg/dL (70-99); Osmolality Calculated 285 mOsm/kg (285-295); Potassium 3.5 mmol/L (3.5-5.1); Sodium 138 mmol/L (136-145); Uric Acid 5.8 mg/dL (2.6-6.0)
[2022-09-23 17:12] LABS: Erythrocyte Sedimentation Rate 56 mm/hr (0-20)
[2022-09-23 18:06] LABS: Ferritin 141 ng/mL (8-252); Iron 14 ug/dL (50-170); Percent Iron Saturation 6 % (12-57)
[2022-10-01 23:38] LABS: ANCA Screen Negative (Negative)
== END 2022-09-23 15:27 | disposition home or self-care (01) ==
LOC: CHSLAB 15:29
PROVIDERS: PCP Family Medicine; Visit Provider Family Medicine
DX: M13.0 Polyarthritis, unspecified (principal); D64.9 Anemia, unspecified; M25.532 Pain in left wrist; M25.531 Pain in right wrist
CPT/HCPCS: 36415; 73110; 80048; 82728; 83540; 83550; 84550; 85025; 85652; 86036; 86140; 86430

== ENCOUNTER 2022-09-25 16:16 | Outpatient (CLI) | payer MEDICARE, SELFPAY ==
[2022-09-25 16:33] LABS: Add Urine Microscopic? YES; Appearance Urine Clear (Clear); Bilirubin Urine Negative (Negative); Blood Urine Negative (Negative); Color Urine Light Yellow (Yellow); Glucose Urine UA Negative (Negative); Ketones Urine Trace (Negative); Leukocyte Esterase Ur 3+ (Negative); Nitrate Urine Negative (Negative); Protein Urine Negative (Negative); Specific Grav Ur 1.025 (1.010-1.020); Urobilinogen Urine 0.2 mg/dL (0.2-1.0)
[2022-09-25 16:53] LABS: Creatinine Urine 153.52 mg/dL (40-278); MALB Creatinine Ratio 8.6 mg/g (0-30); Microalbumin Urine Random 13.3 mg/L
[2022-09-25 16:54] LABS: Bacteria Urine 1+ /hpf; Mucus Urine Few /lpf; Occult Blood Negative (Negative); RBC Urine None seen /hpf (0-2); Squamous Epithelial Cell Urine Few /hpf (Few); WBC Urine 16-20 /hpf (0-3)
[2022-09-25 16:55] LABS: Occult Blood Negative (Negative)
[2022-09-25 16:55] LABS: Occult Blood Negative (Negative)
== END 2022-09-25 16:17 | disposition home or self-care (01) ==
LOC: CHSLAB 16:21
PROVIDERS: PCP Family Medicine; Visit Provider Family Medicine
DX: D64.9 Anemia, unspecified (principal)
CPT/HCPCS: 81001; 82043; 82272

== ENCOUNTER 2023-01-07 08:37 | Outpatient (RCR) | payer MEDICARE, SELFPAY ==
[2022-10-14 09:09] LABS: INR 3.8; Prothrombin Time 37.7 Seconds (9.50-12.10)
[2022-11-11 11:14] LABS: INR 5.9; Prothrombin Time 55.9 Seconds (9.64-11.0)
[2022-11-25 09:35] LABS: INR 3.5; Prothrombin Time 34.3 Seconds (9.50-12.10)
[2023-01-07 09:09] LABS: INR 4.1; Prothrombin Time 40.4 Seconds (9.50-12.10)
== END 2023-01-12 23:59 | disposition home or self-care (01) ==
LOC: CHSLAB 08:37
PROVIDERS: PCP Family Medicine; Visit Provider Internal Medicine Cardiovascular Disease
DX: Z51.81 Encounter for therapeutic drug level monitoring (principal); I48.0 Paroxysmal 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; Z79.01 Long term (current) use of anticoagulants
CPT/HCPCS: 36415; 85610

== ENCOUNTER 2023-01-26 08:03 | Outpatient (RCR) | payer MEDICARE, SELFPAY ==
[2023-01-26 08:31] LABS: INR 1.9; Prothrombin Time 19.8 Seconds (9.50-12.10)
== END 2023-04-26 23:59 | disposition home or self-care (01) ==
LOC: CHSLAB 08:03
PROVIDERS: PCP Family Medicine; Visit Provider Internal Medicine Cardiovascular Disease
DX: Z51.81 Encounter for therapeutic drug level monitoring (principal); I48.91 Unspecified 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; Z79.01 Long term (current) use of anticoagulants
CPT/HCPCS: 36415; 85610

== ENCOUNTER 2024-10-15 00:56 | Inpatient (IN) | payer MEDICARE, SELFPAY ==
[2024-10-15] VITALS (11 sets, daily range): BP systolic 130–177; BP diastolic 47–97; PULSE 64–89; RESP 14–21; TEMP 36.2–37; O2SAT 91–99; BMI 21.7
--- NOTE | ~2024-10-15 | XR_ITS ---
XR chest 1V portable DATE: 10/15/2024 01:57 INDICATION: Anasarca TECHNIQUE: Portable upright AP chest on at 0155 hours COMPARISON: 10/28/2020 portable AP chest FINDINGS: Normal heart size. There is aortic arch calcification and aortic unfolding. No hilar or mediastinal enlargement. Bilateral hyperinflation. Minimal atelectasis lung bases. The lungs otherwise appear clear. Osteopenia. Mild thoracic levoscoliosis. Osteoarthritic changes glenohumeral joints, particularly severe on the right. IMPRESSION: Bilateral hyperinflation and minimal atelectasis at the lung bases Reviewed, dictated and finalized at location A. OIDERY OPERATOR
--- NOTE | 2024-10-15 01:15 | ED_ITS ---
HPI - Extremity Problem General Chief complaint: Extremity Problem,Nontraumatic Stated complaint: leg pain Time Seen by Provider: 10/15/24 01:14 Source: patient and family Mode of arrival: EMS Limitations: no limitations History of Present Illness HPI Narrative: 89-year-old female with a history of hypertension, CKD, 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, dyslipidemia presents to the ED with a 1 year history of -- generalized arthralgia with swelling of the knees. the patient had a hip replacement and was scheduled to get another hip replacement which could not be done secondary to her medical conditions including CKD and anemia -- anasarca -- unable to ambulate MD Complaint: extremity pain and extremity swelling Onset (ago): year(s) ( 1 year) Pain Consistency: constant Quality: aching Relieving factors: nothing Exacerbating factors: nothing Associated symptoms: denies other symptoms Related Data Home Medications ?Medication ?Instructions ?Recorded ?Confirmed ?Last Taken ?Type hydrochlorothiazide 25 mg tablet 25 mg PO DAILY 05/16/20 10/15/24 Unknown History losartan 100 mg tablet 100 mg PO DAILY 05/16/20 10/15/24 Unknown History warfarin 4 mg tablet 4 mg PO DAILY 05/16/20 10/15/24 Unknown History Allergies Allergy/AdvReac Type Severity Reaction Status Date / Time No Known Allergies Allergy Unknown Verified 10/15/24 01:34 Review of Systems 2 Review of Systems: All systems reviewed & are unremarkable except as noted in HPI and below Constitutional: Constitutional: Reports as per HPI and Reports no additional constitutional complaints Eyes: Eyes: Reports as per HPI and Reports no additional eye complaints ENT: Reports system reviewed and no additional complaints, except as documented and Reports as per HPI Cardiovascular: Cardiovascular: Reports as per HPI and Reports no additional cardiovascular complaints Respiratory: Respiratory: Reports as per HPI and Reports no additional respiratory complaints Gastrointestinal: Gastrointestinal: Reports as per HPI and Reports no additional gastrointestinal complaints Genitourinary: Genitourinary: Reports no additional female genitourinary complaints and Reports as per HPI Musculoskeletal: Musculoskeletal: Reports no additional musculoskeletal complaints and Reports as per HPI Integumentary/Breasts: Skin/Breast: Reports system reviewed and no additional complaints, except as docu and Reports as per HPI Neurologic: Reports system reviewed and no additional complaints, except as documented and Reports as per HPI Psychiatric: Psychiatric: Reports no additional psychiatric complaints and Reports as per HPI Endocrine: Endocrine: Reports no additional endocrine complaints and Reports as per HPI Hematologic/Lymphatic: Hematologic/Lymphatic: Reports no additional hematologic/lymphatic complaints and Reports as per HPI Allergic/Immunologic: Allergic/Immunologic: Reports no additional allergic/immunologic complaints and Reports as per HPI REPLACED BY [facility] Past Medical History Medical History JUSTYN (acute kidney injury) COVID-19 Pneumonia Atrial fibrillation, chronic Hypertension Hyperlipidemia Surgical History Surgical History Hx of tonsillectomy Family History Family History Father Family history of malignant neoplasm Social History Social History Smoking status: Never smoker Alcohol intake: former Drinks per week: 7 Substance use: never Living arrangements: with family Gender identity (if verbalized by the patient): Female Spiritual care concerns: No Exam 2 Narrative: blood pressure 135/97 Const: General: no acute distress Orientation/consciousness: patient oriented x3 HENMT: Head: normal to inspection Ears: external ears normal F mirela/Nose/Sinus: Normal external nose present Face and sinus: normal facial exam Mouth: Yes Normal oral and palatal mucosa present Throat: posterior oropharynx normal Eyes: Conjunctivae: conjunctivae normal Pupils: Equal, round and reactive pupils present EOM: EOMs intact bilaterally Direct Ophthalmoscopy: no photophobia Neck: Neck: normal visual inspection, no lymphadenopathy and no meningeal signs Chest: Chest palpation & inspection: normal inspection of the chest Resp: Effort & Inspection: normal respiratory effort Auscultation: clear to auscultation bilaterally Cardio: Rate: regular rate Rhythm: regular rhythm GI: GI Palp: Yes Soft to palpation Auscultation: normal bowel sounds O ther: no tenderness/rigidity/rebound : General: Yes no CVA tenderness Back/Spine/Pelvis: Back: no CVA tenderness Skin: General skin exam: normal color Rashes: no rashes Wounds: no wounds Neuro: General: patient oriented x3, moves all extremities, no meningeal signs, no focal motor deficits and CN's II-XI intact bilaterally Cranial nerves: Yes Nystagmus not present Speech: normal speech Extrem: General: normal to inspection and edema Psych: Mental Status: mental status grossly normal Affect: normal affect Attitude: cooperative Course Course Emergency Course: arthralgia anasarca- Patient had normal renal function. This could be secondary to CHF versus hypoproteinemia. anemia- H&H of 7.6/26.6. Anemia is microcytic hypochromic.This is chronic. CHF-- 1st troponin was noted to be 1 9. Repeat troponin was noted to be 193. patient has refused medical treatment in the past. She is unable to ambulate at home. Will admit the patient for placement. Vital Signs Vital signs: Vital Signs Temperature 37.0 C 10/15/24 01:06 Pulse Rate 89 10/15/24 01:06 Respiratory Rate 14 10/15/24 01:06 Blood Pressure 135/97 H 10/15/24 01:06 Pulse Oximetry 99 10/15/24 01:06 Oxygen Delivery Room Air 10/15/24 01:06 Temperature 37.0 C 10/15/24 01:06 Pulse Rate 89 10/15/24 01:06 Respiratory Rate 14 10/15/24 01:06 Blood Pressure 135/97 H 10/15/24 01:06 Pulse Oximetry 99 10/15/24 01:06 Oxygen Delivery Room Air 10/15/24 01:06 MDM - Extremity (Nontraumatic) MDM Narrative Medical decision making narrative: Arthralgia anasarca microcytic hypochromic anemia CHF Lab Data 10/15/24 01:51 10/15/24 01:51 Labs: Lab Results 10/15/24 10/15/24 Range/Units 01:51 06:11 WBC 7.4 (4.8-10.8) K/mm3 RBC 3.54 L (4.20-5.40) M/mm3 Hgb 7.6 L (11.7-13.8) g/dL Hct 26.6 L (35.0-42.0) % MCV 75.1 L (78.0-102.0) fL MCH 21.5 L (27.0-31.0) pg MCHC 28.6 L (32-36) g/dL RDW 17.9 H (11.6-14.4) % Plt Count 470 H (150-420) K/mm3 MPV 8.1 L (9.2-11.8) fl Immature Gran % (Auto) 0.5 H (0.0-0.0) % Neut % (Auto) 81.2 H (50.0-70.0) % Lymph % (Auto) 9.9 L (18.0-42.0) % [place] % (Auto) 6.5 (2.0-11.0) % Eos % (Auto) 1.4 (1.0-6.0) % Baso % (Auto) 0.5 (0.0-1.0) % Lymph # (Auto) 0.73 L (1.10-4.50) K/mm3 [place] # (Auto) 0.48 (0.10-0.90) K/mm3 Eos # (Auto) 0.10 (0.02-0.50) K/mm3 Baso # (Auto) 0.04 (0.00-0.10) K/mm3 Abs Immat Gran (auto) 0.04 H (0.00-0.00) K/mm3 Absolute Neuts (auto) 5.96 (1.70-7.20) K/mm3 Absolute Nucleated RBC 0.00 (0.00-0.00) K/mm3 Nucleated RBC % 0.0 (0-0.0) % PT 11.1 (9.50-12.1) Seconds INR 1.0 APTT 32.5 H (23.9-30.70) Sec Sodium 141 (136-145) mmol/L Potassium 3.7 (3.5-5.1) mmol/L Chloride 107 (98-108) mmol/L Carbon Dioxide 27 (21-32) mmol/L Anion Gap 7 (4-12) mmol/L BUN 16 (7-18) mg/dL Creatinine 1.00 (0.55-1.02) mg/dL Estim Creat Clear Calc 37 ml/min Estimated GFR 52 L (59 - ) Glucose 109 H (70-99) mg/dL Calculated Osmolality 294 (285-295) mOsm/kg Calcium 7.9 L (8.5-10.1) mg/dL Total Bilirubin 0.4 (0.00-1.00) mg/dL AST < 10 L (15-37) U/L ALT 8 L (14-59) U/L Alkaline Phosphatase 155 H (46-116) U/L Total Creatine Kinase 25 L (26-192) U/L Troponin I 209.4 H* 193.0 H* (0.00-60.4) ng/L NT-Pro-B Natriuret Pep 8428 H (0-450) pg/mL Total Protein 5.6 L (6.4-8.2) g/dL Albumin 1.9 L (3.4-5.0) g/dL Lipase 26 (16-77) U/L TSH 2.08 (0.36-3.74) uIU/mL Urine Color Light yellow (Yellow) Urine Appearance Clear (Clear) Urine pH 6.5 (5.0-8.0) Ur Specific [place] 1.020 (1.010-1.020) Urine Protein Negative (Negative) Urine Glucose (UA) Negative (Negative) Urine Ketones Negative (Negative) Ur Blood (Man) Negative (Negative) Urine Nitrate Negative (Negative) Urine Bilirubin Negative (Negative) Urine Urobilinogen 0.2 (0.2-1.0) mg/dL Leukocyte Esterase Rfl Negative (Negative) MASSIMO/UL Influenza A (RT-PCR) Negative (Negative) Influenza B (RT-PCR) Negative (Negative) RSV (RT-PCR) Negative (Negative) SARS-CoV-2 RNA (RT-PCR) Negative (Negative) ECG Data EKG #1: ECG completion date: 10/15/24 ECG completion time: 01:43 Interpretation: normal sinus rhythm. Right bundle-branch block pattern with left anterior hemiblock. No ST elevation noted. Discharge Plan Discharge Clinical Impression: Anemia Qualifiers: Anemia type: unspecified type Qualified Code(s): D64.9 - Anemia, unspecified Arthralgia Qualifiers: Joint pain location: unspecified Qualified Code(s): M25.50 - Pain in unspecified joint CHF (congestive heart failure) Qualifiers: Heart failure type: unspecified Heart failure chronicity: unspecified Qualified Code(s): I50.9 - Heart failure, unspecified Patient Disposition: Acute Care [facility] Condition: Stable Patient Language: Luxembourgish Prescriptions: No Action doxycycline hyclate 100 mg Tablet 100 mg PO Q12HR Qty: 10 0RF warfarin 4 mg tablet 4 mg PO DAILY hydrochlorothiazide 25 mg tablet 25 mg PO DAILY losartan 100 mg tablet 100 mg PO DAILY Follow-up/Referrals: UNKNOWN,DOCTOR [Primary Care Provider] - Time of Disposition: 07:01
--- NOTE | 2024-10-15 01:40 | ECG_ITS ---
Test Date: 2024-10-15 01:43:36 Measurements Intervals [place] Rate: 80 P: 66 DC: 134 QRS: -51 QRSD: 131 T: 48 QT: 415 QTc: 480 Interpretive Statements SINUS RHYTHM RIGHT BUNDLE BRANCH BLOCK [120+ ms QRS DURATION, UPRIGHT V1, 40+ ms S IN I/aVL/V4/V5/V6] LEFT ANTERIOR FASCICULAR BLOCK [QRS AXIS <= -45, QR IN I, RS IN II] No previous ECG available for comparison Electronically Signed On 10-17-2024 17:41:57 REHABILITATION CLERK by Janeen Comer M.D.
[2024-10-15 02:01] LABS: Basophils Absolute Auto 0.04 K/mm3 (0.00-0.10); Basophils Percent Auto 0.5 % (0.0-1.0); Eosinophils Percent Auto 1.4 % (1.0-6.0); Hematocrit 26.6 % (35.0-42.0); Hemoglobin 7.6 g/dL (11.7-13.8); Immature Granulocyte Absolute 0.04 K/mm3 (0.00-0.00); Immature Granulocyte Percent A 0.5 % (0.0-0.0); Lymphocytes Absolute Auto 0.73 K/mm3 (1.10-4.50); Lymphocytes Percent Auto 9.9 % (18.0-42.0); Mean Corpuscular HGB Conc 28.6 g/dL (32-36); Mean Corpuscular Hemoglobin 21.5 pg (27.0-31.0); Mean Corpuscular Volume 75.1 fL (78.0-102.0); Mean Platelet Volume 8.1 fl (9.2-11.8); Monocytes Absolute Auto 0.48 K/mm3 (0.10-0.90); Monocytes Percent Auto 6.5 % (2.0-11.0); Neutrophils Absolute Auto 5.96 K/mm3 (1.70-7.20); Neutrophils Percent Auto 81.2 % (50.0-70.0); Platelet Count Result 470 K/mm3 (150-420); Red Blood Count 3.54 M/mm3 (4.20-5.40); Red Cell Distribution Width 17.9 % (11.6-14.4); White Blood Count 7.4 K/mm3 (4.8-10.8)
--- NOTE | 2024-10-15 02:03 | PC.NURSE ---
pt aware urine specimen is needed. pt unable to urinate at this time
[2024-10-15 02:28] LABS: Partial Thromboplastin Time 32.5 Sec (23.9-30.70); Prothrombin Time 11.1 Seconds (9.50-12.1)
[2024-10-15 02:41] LABS: Alanine Aminotransferase 8 U/L (14-59); Albumin Level 1.9 g/dL (3.4-5.0); Alkaline Phosphatase 155 U/L (46-116); Anion Gap 7 mmol/L (4-12); Aspartate Amino Transferase < 10 U/L (15-37); Bilirubin,Total 0.4 mg/dL (0.00-1.00); Blood Urea Nitrogen 16 mg/dL (7-18); Calcium 7.9 mg/dL (8.5-10.1); Carbon Dioxide 27 mmol/L (21-32); Chloride 107 mmol/L (98-108); Creatine Kinase 25 U/L (26-192); Estimated CRCL calculation 37 ml/min; Estimated Glomerular Filt Rate 52; Glucose 109 mg/dL (70-99); Lipase 26 U/L (16-77); NT Pro B Type Natriuretic Pept 8428 pg/mL (0-450); Osmolality Calculated 294 mOsm/kg (285-295); Potassium 3.7 mmol/L (3.5-5.1); Sodium 141 mmol/L (136-145); Thyroid Stimulating Hormone 2.08 uIU/mL (0.36-3.74); Total Protein 5.6 g/dL (6.4-8.2)
[2024-10-15 02:46] LABS: SARS-CoV-2 RNA PCR Negative (Negative)
[2024-10-15 02:48] LABS: Influenza A QL RT-PCR Negative (Negative); Influenza B QL RT-PCR Negative (Negative); RSV RNA, RT-PCR Negative (Negative); Troponin I 209.4 ng/L (0.00-60.4)
[2024-10-15] MEDS: HYDROcodone/acetaminophen (*CRX) 5-325 MG TABLET 1 TAB PO ×2 (03:28→17:48)
--- NOTE | 2024-10-15 03:38 | PC.NURSE ---
Daughter, Nel Sheikh, . She is going to go home and get a nap. Please call her when repeat labs are complete and ERP has decided if transfer is necessary. She wants to be here to discuss options for transfer with her mother. She lives in [place].
[2024-10-15 05:05] LABS: Add Urine Microscopic? NO; Appearance Urine Clear (Clear); Bilirubin Urine Negative (Negative); Blood Urine Negative (Negative); Color Urine Light Yellow (Yellow); Glucose Urine UA Negative (Negative); Ketones Urine Negative (Negative); Leukocyte Esterase Ur Negative LEU/UL (Negative); Nitrate Urine Negative (Negative); Protein Urine Negative (Negative); Urobilinogen Urine 0.2 mg/dL (0.2-1.0); pH Urine 6.5 (5.0-8.0)
--- NOTE | 2024-10-15 06:55 | PC.NURSE ---
ASSUMED CARE. REPORT RECEIVED FROM SIMIN SETH. PATIENT CURRENTLY RESTING ON STRETCHER WITH EYES CLOSED. DR ALATORRE ON THE PHONE WITH PATIENTS DAUGHTER. CALL LIGHT IN REACH
--- NOTE | 2024-10-15 07:53 | PC.NURSE ---
PATIENT BEING HELPED OFF OF BEDSIDE COMMODE AND BACK TO BED BY ANILA SMITH
--- NOTE | 2024-10-15 08:16 | PC.NURSE ---
POLST COMPLETED BY DR MCKEON, FAMILY AND PATIENT AND PLACED ON CHART. ORIGINAL COPY WAS GIVEN TO FAMILY MEMBERS.
--- NOTE | 2024-10-15 08:20 | PC.NURSE ---
Patient arrived to unit in w/ and required 1 assist gait belt and walker to transfer from w/c to bed. Patient admitted to room 208. Patient educated on use of bed controls, call light, infection control practices, general hospital policies and visiting hours. Admission folder given to patient. Patient and patient's daughter voiced understanding on education.
--- NOTE | 2024-10-15 08:20 | PC.NURSE ---
NOTIFIED REGISTRATION THAT PATIENT WILL BE GOING TO ROOM 208 AT [facility]
--- NOTE | 2024-10-15 08:23 | PC.NURSE ---
UPDATED FAMILY ON ROOM ASSIGNMENT. PATIENT BACK UP TO BEDSIDE COMMODE WITH ASSIST X 1
[2024-10-15] MEDS: DOCUSATE SODIUM 100 MG CAPSULE PO ×2 (09:49→17:30)
[2024-10-15] MEDS: ENOXAPARIN 40 MG/0.4 ML SYRINGE SUB-Q (09:52)
[2024-10-15] MEDS: FUROSEMIDE INJ 40 MG/4 ML VIAL IV PUSH (10:18)
--- NOTE | 2024-10-15 11:30 | PC.NURSE ---
Nurses heard crying coming from patient's room. Patient was crying out loud because she didn't know what we had done to her because she was suddenly wet all over. Patient had urinated on herself. Splunk Architect got patient cleaned up and assisted patient to chair for lunch.
--- NOTE | 2024-10-15 12:32 | P.HP_ITS ---
H&P: HPI History of Present Illness Date/Time: 10/15/24 12:32 Chief Complaint: weakness Narrative: Quin is a 89F with a PMH of CHF, polyarthralgia, HTN, HLD and intermittent Afib that presented to the ED with generalized weakness, pain and anasarca. She stopped taking her meds over a year ago and has not left the house. She denies any chest pain, fevers, chills or injury. Review of Systems Review of Systems: All systems reviewed & are unremarkable except as noted in HPI and below PMFSH Past Medical History Medical History JUSTYN (acute kidney injury) COVID-19 Pneumonia Atrial fibrillation, chronic Hypertension Hyperlipidemia Surgical History Surgical History Hx of tonsillectomy Family History Family History Father Family history of malignant neoplasm Social History Social History Smoking packs per day: 1 Smoking cigarettes per day: 20.0 Years smoked: 20 Smoking pack-years: 20.00 Smoking status: Former smoker Tobacco type: cigarettes Second hand tobacco smoke exposure: Yes Smoking end date: 10/15/24 Alcohol intake: former Drinks per week: 7 Substance use: never Do You Feel Safe in your Home?: Yes Lack of Transportation: No Lack of Food: Never True Current Housing: I Have Housing Concerned About Future Housing: No Difficulty Paying Gas/Electric Bills: No Difficulty Paying for Meds: No Currently Unemployed: No Education: High School Diploma/GED Difficulty w/ Childcare or Family Care: No Living arrangements: with family Gender identity (if verbalized by the patient): Female Spiritual care concerns: No Meds Home Medications and Allergies Home Medications ?Medication ?Instructions ?Recorded ?Confirmed ?Type hydrochlorothiazide 25 mg tablet 25 mg PO DAILY 05/16/20 10/15/24 History losartan 100 mg tablet 100 mg PO DAILY 05/16/20 10/15/24 History warfarin 4 mg tablet 4 mg PO DAILY 05/16/20 10/15/24 History doxycycline hyclate 100 mg tablet 100 mg PO Q12HR #10 tabs 10/30/20 10/15/24 Rx Allergies Allergy/AdvReac Type Severity Reaction Status Date / Time No Known Allergies Allergy Unknown Verified 10/15/24 01:34 Vital Signs Vital Signs - 24 hr 10/15/24 01:06 10/15/24 01:16 10/15/24 01:31 Temperature 98.6 F Pulse Rate 89 82 79 Respiratory Rate 14 18 16 Blood Pressure 135/97 H 146/92 H 177/83 H Pulse Oximetry 99 99 Oxygen Delivery Room Air 10/15/24 05:00 10/15/24 07:00 10/15/24 07:16 Temperature Pulse Rate 68 65 80 Respiratory Rate 19 17 18 Blood Pressure 161/58 H 161/58 H Pulse Oximetry 96 96 94 Oxygen Delivery Room Air 10/15/24 07:31 10/15/24 07:57 10/15/24 08:01 Temperature Pulse Rate 75 66 70 Respiratory Rate 17 15 21 H Blood Pressure 157/47 H 173/62 H 172/68 H Pulse Oximetry 94 99 99 Oxygen Delivery Room Air Room Air Exam Narrative: blood pressure 135/97 Const: General: no acute distress Orientation/consciousness: patient oriented x3 HENMT: Head: normal to inspection Ears: external ears normal Face/Nose/Sinus: Normal external nose present Face and sinus: normal facial exam Mouth: Yes Normal oral and palatal mucosa present Throat: posterior oropharynx normal Eyes: Conjunctivae: conjunctivae normal Pupils: Equal, round and reactive pupils present EOM: EOMs intact bilaterally Direct Ophthalmoscopy: no photophobia Neck: Neck: normal visual inspection, no lymphadenopathy and no meningeal signs Chest: Chest palpation & inspection: normal inspection of the chest Resp: Effort & Inspection: normal respiratory effort Auscultation: clear to auscultation bilaterally Cardio: Rate: regular rate Rhythm: regular rhythm Other: Diffuse swelling with 4+ pitting edema up to the mid thigh. GI: GI Palp: Yes Soft to palpation Auscultation: normal bowel sounds Other: no tenderness/rigidity/rebound : General: Yes no CVA tenderness Back/Spine/Pelvis: Back: no CVA tenderness Skin: General skin exam: normal color Rashes: no rashes Wounds: no wounds Neuro: General: patient oriented x3, moves all extremities, no meningeal signs, no focal motor deficits and CN's II-XI intact bilaterally Cranial nerves: Yes Nystagmus not present Speech: normal speech Extrem: General: normal to inspection and edema Psych: Mental Status: mental status grossly normal Affect: normal affect Attitude: cooperative H&P: Results Labs Labs: Short CBC 10/15/24 Range/Units 01:51 WBC 7.4 (4.8-10.8) K/mm3 Hgb 7.6 L (11.7-13.8) g/dL Hct 26.6 L (35.0-42.0) % Plt Count 470 H (150-420) K/mm3 BMP 10/15/24 01:51 Sodium 141 Potassium 3.7 Chloride 107 Carbon Dioxide 27 BUN 16 Creatinine 1.00 Glucose 109 H Calcium 7.9 L Cardiac Enzymes 10/15/24 10/15/24 Range/Units 01:51 06:11 Total Creatine Kinase 25 L (26-192) U/L Troponin I 209.4 H* 193.0 H* (0.00-60.4) ng/L Liver Function 10/15/24 Range/Units 01:51 Total Bilirubin 0.4 (0.00-1.00) mg/dL AST < 10 L (15-37) U/L ALT 8 L (14-59) U/L Alkaline Phosphatase 155 H (46-116) U/L Albumin 1.9 L (3.4-5.0) g/dL Urine 10/15/24 Range/Units 01:51 Urine Color Light yellow (Yellow) Urine Appearance Clear (Clear) Urine pH 6.5 (5.0-8.0) Ur Specific [place] 1.020 (1.010-1.020) Urine Protein Negative (Negative) Urine Glucose (UA) Negative (Negative) Assessment and Plan Assessment and plan (1) CHF (congestive heart failure): Qualifiers: Heart failure chronicity: unspecified Heart failure type: unspecified Qualified Code(s): I50.9 - Heart failure, unspecified Code(s): I50.9 - Heart failure, unspecified Status: Acute Plan CHF exacerbation -most likely cause of Anasarca -lasix 40mg QD -will trend troponin, most likely high form CHF exacerbation -place catheter as she cannot get to commode in time Arthralgia -PT/OT Afib -currently in sinus rhythm Chronic anemia -ferritin and iron studies FEN/GI -No IV fluids -electrolytes WNL -Low sodium, heart healthy diet
[2024-10-15] MEDS: LORazepam INJ (*CRX) 2 MG/ML VIAL 0.5 MG IV PUSH (14:23)
[2024-10-15 14:41] LABS: Ferritin 393 ng/mL (8-252); Iron 13 ug/dL (50-170); Percent Iron Saturation 6 % (12-57)
--- NOTE | 2024-10-15 14:44 | PC.NURSE ---
Kumar catheter inserted. Patient tolerated well. Stabilization device applied.
[2024-10-15 14:48] LABS: Troponin I 208.9 ng/L (0.00-60.4)
--- NOTE | 2024-10-15 15:04 | PC.NURSE ---
Patient set off bed alarm and when nurses went to room, patient was climbing out of bed on the window side and was in danger of pulling out franz catheter. Patient moved to room 206 for patient safety.
[2024-10-15] MEDS: POTASSIUM CHLORIDE 20 MEQ PACKET (FOR LIQUID) 40 MEQ PO (17:50)
[2024-10-15] MEDS: MORPHINE SULFATE (*CRX) 2 MG/ML INJ IV PUSH (19:29)
[2024-10-16] VITALS (10 sets, daily range): BP systolic 145–171; BP diastolic 37–60; PULSE 70–96; RESP 16–17; TEMP 36.3–36.7; O2SAT 97–99
[2024-10-16 06:35] LABS: Hematocrit 23.7 % (35.0-42.0); Mean Corpuscular HGB Conc 28.7 g/dL (32-36); Mean Corpuscular Hemoglobin 21.5 pg (27.0-31.0); Mean Platelet Volume 7.8 fl (9.2-11.8); Platelet Count Result 356 K/mm3 (150-420); Red Blood Count 3.16 M/mm3 (4.20-5.40); Red Cell Distribution Width 17.9 % (11.6-14.4); White Blood Count 5.8 K/mm3 (4.8-10.8)
[2024-10-16 06:43] LABS: Hemoglobin 6.8 g/dL (11.7-13.8)
[2024-10-16 06:51] LABS: Alanine Aminotransferase 7 U/L (14-59); Albumin Level 1.7 g/dL (3.4-5.0); Alkaline Phosphatase 120 U/L (46-116); Anion Gap 7 mmol/L (4-12); Aspartate Amino Transferase < 10 U/L (15-37); Bilirubin,Total 0.4 mg/dL (0.00-1.00); Blood Urea Nitrogen 15 mg/dL (7-18); Calcium 8.1 mg/dL (8.5-10.1); Carbon Dioxide 30 mmol/L (21-32); Chloride 106 mmol/L (98-108); Estimated CRCL calculation 39 ml/min; Estimated Glomerular Filt Rate > 60; Glucose 89 mg/dL (70-99); Osmolality Calculated 295 mOsm/kg (285-295); Potassium 3.9 mmol/L (3.5-5.1); Sodium 143 mmol/L (136-145); Total Protein 4.8 g/dL (6.4-8.2)
--- NOTE | 2024-10-16 07:11 | PC.NURSE ---
Hgb at 6.8, patient may need blood transfusion. Attempts made x2 by newspaper writer to start new IV site since patient removed previous, attempts unsuccessful. Call placed to ED for assistance.
[2024-10-16] MEDS: SODIUM CHLORIDE 0.9% IV 250 ML 30 ML IV CONT (08:30)
[2024-10-16] MEDS: FUROSEMIDE INJ 40 MG/4 ML VIAL IV PUSH ×2 (08:52→17:01)
[2024-10-16] MEDS: FERROUS SULFATE 325 MG TABLET DR PO ×2 (09:58→17:01)
[2024-10-16] MEDS: DOCUSATE SODIUM 100 MG CAPSULE PO (09:58)
[2024-10-16] MEDS: LOSARTAN POTASSIUM 50 MG TABLET 100 MG PO (09:58)
[2024-10-16] MEDS: ENOXAPARIN 40 MG/0.4 ML SYRINGE SUB-Q (09:58)
[2024-10-16] MEDS: POTASSIUM CHLORIDE 20 MEQ PACKET (FOR LIQUID) 40 MEQ PO (09:58)
[2024-10-16] MEDS: ACETAMINOPHEN 325 MG TABLET 650 MG PO (10:00)
[2024-10-16 13:54] LABS: Hematocrit 31.9 % (35.0-42.0); Hemoglobin 9.2 g/dL (11.7-13.8)
--- NOTE | 2024-10-16 14:49 | P.PNIM_ITS ---
Progress Note: A&P Assessment and Plan (1) CHF (congestive heart failure): Qualifiers: Heart failure chronicity: unspecified Heart failure type: unspecified Qualified Code(s): I50.9 - Heart failure, unspecified Code(s): I50.9 - Heart failure, unspecified Status: Acute Assessment and Plan: patient reports history of congestive heart failure however she stopped taking all medications, presented today with moderate to severe edema to bilateral lower extremities Acute on chronic diastolic heart failure * BNP >8000 * IV Lasix b.i.d. * monitor renal function during diuresis * echocardiogram pending * EKG SR with BBB * chest x-ray reviewed * Resumed losartan started ASA * elevate/Rajiv wrap legs if needed (2) Hypertension: Code(s): I10 - Essential (primary) hypertension Status: Chronic Assessment and Plan: * Hypertensive on admission * not taking any BP medication stopped Losartan a year ago * Resumed 100mg daily losartan * monitor BP per unit protocol * adjust as needed (3) JUSTYN (acute kidney injury): Code(s): N17.9 - Acute kidney failure, unspecified Status: Resolved Assessment and Plan: patient with previous history CKD close to baseline small bump on admission * Avoid nephrotoxic drugs. * Monitor antihypertensive drug therapy. * Avoid NSAIDs. * Routine CMP monitoring GFR. * Monitor electrolytes especially potassium. RESOLVED (4) History of cardiac ablation for 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: Code(s): Z98.890 - Other specified postprocedural states; I48.91 - Unspecified 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 Status: Acute Assessment and Plan: Off Note for 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 2016 (5) Malnutrition: Code(s): E46 - Unspecified protein-calorie malnutrition Status: Acute Assessment and Plan: * encourage protein shakes with each meal (6) Non-STEMI (non-ST elevated myocardial infarction): Code(s): I21.4 - Non-ST elevation (NSTEMI) myocardial infarction Status: Acute Assessment and Plan: patient made aware of elevated troponins the possible need for evaluation by Cardiology however at this time patient states she does not want any cardiac interventions including cardiac catheterization or stress test she was made aware of the risks, elevated troponins trending flat could be secondary to CHF exacerbation, CKD and anemia * 209.4 <193<208.9 NG/L * echocardiogram pending * added ASA daily * resumed losartan 100 mg * patient wants no interventions or stress test (7) Anemia: Qualifiers: Anemia type: unspecified type Qualified Code(s): D64.9 - Anemia, unspecified Code(s): D64.9 - Anemia, unspecified Status: Acute Assessment and Plan: patient reported history of previous chronic anemia secondary to iron 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 was following with a orthotic fitter outpatient and had previously received iron transfusions patient reports she stopped taking her iron supplement due to constipation. * Hgb 6.8 * No acute bleeding noted * transfused 1 unit PRBC * started Ferrous Sulfate BID with stool softners * monitor and trend transfuse PRBC if Hgb <7.0 * Encouraged iron enriched foods (8) Hypoalbuminemia: Code(s): E88.09 - Other disorders of plasma-protein metabolism, not elsewhere classified Status: Acute Assessment and Plan: * albumin 1.9 could be secondary to her anasarca in malnutrition * albumin 25% x1 Plan Code status: Full code per patient DVT prophylaxis: SCD's Stress ulcer prophylaxis: Protonix 40 daily PT/OT notes: SWING Bed Disposition: Patient continues admission to the medical unit for further evaluation and treatment of CHF exacerbation and anemia will monitor hemoglobin and transfuse as needed continue with IV Lasix echocardiogram scheduled for 10/19/2024. plan for patient to discharge to swing bed for further rehabilitation needs. Time Spent With Patient Time with patient: 15 - 25 minutes Subjective Date/time seen: 10/16/24 14:49 Interval history: Patient is an 89-year-old female who presented to the emergency department with increased generalized weakness and increased swelling to bilateral lower extremities. Patient does report she had a past medical history of chronic kidney disease, 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 with an ablation x2, HTN and anemia. patient reports she does live home alone and was unable to ambulate or care for self due to worsening swelling. Patient was admitted to the medical unit for further evaluation and treatment of CHF exacerbation, anemia and acute on chronic renal failure. 10/16/2024: patient with no acute distress still reporting bilateral lower extremity edema pain but improving with Lasix. patient did report she discontinued any medications a year ago did not feel she needed them. patient denied any chest pain or shortness of breath no nausea or vomiting. hemoglobin dropped to 6.8 which patient has had a problem with anemia in the past but quit taking her iron supplements due to constipation. Patient was transfused 1 unit PRBCs, iron panel showing significant iron-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 resumed ferrous sulfate. Review of Systems Review of Systems: All systems reviewed & are unremarkable except as noted in HPI and below Exam Narrative: * GENERAL: Alert and oriented x 3 pleasant female up in chair with family at bedside. No acute distress. * EYES: PERRLA. * HEENT: Moist mucous membranes. * LUNGS: Clear to auscultation bilaterally. No accessory muscle use. * CARDIOVASCULAR: Regular rate and rhythm. Murmur noted ? echo pending. No JVD. S1-S2 * ABDOMEN: Soft, non tenderness and non-distended. No palpable masses. * EXTREMITIES: 2+ pitting edema. Non-tender * SKIN: No rashes or lesions. Skin warm, dry. Pale * NEUROLOGIC: No focal neurological deficits. CN II-XII grossly intact * PSYCHIATRIC: Appropriate mood and affect. Good judgement and insight. Objective Data Vital Signs Vital Signs: Vital Signs - 24 hr 10/15/24 16:00 10/15/24 20:00 10/16/24 00:00 Temperature 97.1 F L 97.7 F Pulse Rate 64 64 96 Respiratory Rate 16 16 17 Blood Pressure 130/51 L 171/59 H Pulse Oximetry 91 97 97 Oxygen Delivery Room Air Room Air Room Air 10/16/24 07:45 10/16/24 08:56 10/16/24 09:12 Temperature 97.6 F 97.6 F 97.8 F Pulse Rate 84 84 89 Respiratory Rate 16 16 16 Blood Pressure 161/60 H 161/60 H 145/42 H Pulse Oximetry 97 97 98 Oxygen Delivery Room Air 10/16/24 10:12 10/16/24 11:12 10/16/24 12:00 Temperature 98.1 F 97.3 F L 98.1 F Pulse Rate 84 72 70 Respiratory Rate 16 16 16 Blood Pressure 147/37 H 156/52 H 147/47 H Pulse Oximetry 99 99 99 Oxygen Delivery Intake/Output Intake/Output: Intake & Output 10/13/24 10/14/24 10/15/24 10/16/24 23:59 23:59 23:59 23:59 Intake Total 750 1230 Output Total 1950 1100 Balance -1200 130 Meds/Results Medications: Active Medications Generic Name Dose Route Start Last Admin Trade Name Freq PRN Reason Stop Dose Admin Acetaminophen 650 mg 10/15/24 08:18 10/16/24 10:00 Acetaminophen 325 Mg Tablet PO 650 mg Q4H PRN Administration Mild Pain (1-3) or Fever Hydrocodone Bitart/Acetaminophen 1 tab 10/15/24 08:18 10/15/24 17:48 Hydrocodone/Acetaminophen (*Crx) 5-325 Mg Tablet PO 1 tab Q4H PRN Administration Moderate Pain (4-6) Al Hydrox/Mg Hydrox/Simethicone 30 ml 10/15/24 08:18 Mag Hydrox/Al Hydrox/Simeth 30 Ml Udc PO QID PRN Dyspepsia Ferrous Sulfate 325 mg 10/16/24 09:00 10/16/24 09:58 Ferrous Sulfate [address] PO 325 mg BID ANGELINE Administration Furosemide 40 mg 10/16/24 09:00 10/16/24 08:52 Furosemide Inj 40 Mg/4 Ml Vial IV PUSH 40 mg BID ANGELINE Administration Sodium Chloride 250 mls @ 30 mls/hr 10/16/24 06:58 10/16/24 12:30 Normal Saline Iv IV CONT 10/16/24 15:17 Infused .Q8H20M STA Infusion Sodium Chloride 250 mls @ 30 mls/hr 10/16/24 13:02 Normal Saline Iv IV CONT 10/16/24 21:21 .Q8H20M STA Albumin Human 100 mls @ 60 mls/hr 10/16/24 14:46 Albutein IVPB 10/16/24 16:25 ONCE ONE Lorazepam 1 mg 10/15/24 18:19 Lorazepam Inj (*Crx) 2 Mg/Ml Vial IV PUSH Q6H PRN Anxiety Losartan Potassium 100 mg 10/15/24 17:31 10/16/24 09:58 Losartan Potassium 50 Mg Tablet PO 100 mg QAM ANGELINE Administration Morphine Sulfate 2 mg 10/15/24 08:18 10/15/24 19:29 Morphine Sulfate (*Crx) 2 Mg/Ml Inj IV PUSH 2 mg Q4H PRN Administration Pain Rated 7-10 Naloxone HCl 0.1 mg 10/15/24 08:18 Naloxone Hcl 0.4 Mg/Ml Vial IV PUSH Q2M PRN Opiate Reversal Ondansetron HCl 4 mg 10/15/24 08:18 Ondansetron Inj 4 Mg/2 Ml Vial IV PUSH Q6H PRN Nausea And Vomiting Perflutren Lipid Microsphere 0 ml 10/15/24 20:44 Perflutren Lipid Microspheres 1.5 Ml Vial Diluted To 10 Ml Total Volume IV PUSH 10/18/24 20:44 ONCE PRN adequate visualization Protocol Polyethylene Glycol 17 gm 10/16/24 14:47 Polyethylene Glycol 3350 17 Gm Powd.Pack PO QAM PRN Constipation Potassium Chloride 40 meq 10/15/24 17:30 10/16/24 09:58 Potassium Chloride 20 Meq Packet (For Liquid) PO 40 meq DAILY ANGELINE Administration Senna/Docusate Sodium 1 tab 10/16/24 21:00 Senna/Docusate Sodium Tablet PO HS ANGELINE Radiology Results: ITS Impressions Chest X-Ray 10/15/24 07:44 IMPRESSION: Bilateral hyperinflation and minimal atelectasis at the lung bases Labs Labs: Laboratory Results - last 24 hr 10/16/24 10/16/24 06:30 13:50 WBC 5.8 RBC 3.16 L Hgb 6.8 L* 9.2 L Hct 23.7 L 31.9 L MCV 75.0 L MCH 21.5 L MCHC 28.7 L RDW 17.9 H Plt Count 356 MPV 7.8 L Sodium 143 Potassium 3.9 Chloride 106 Carbon Dioxide 30 Anion Gap 7 BUN 15 Creatinine 0.83 Estim Creat Clear Calc 39 Estimated GFR > 60 Glucose 89 Calculated Osmolality 295 Calcium 8.1 L Total Bilirubin 0.4 AST < 10 L ALT 7 L Alkaline Phosphatase 120 H Total Protein 4.8 L Albumin 1.7 L Blood Type O Negative Antibody Screen Negative Crossmatch See Detail Quality VTE Prophylaxis VTE prophylaxis: mechanical ordered -Patient's previous records reviewed on admission -ER notes reviewed in detail on admission -discussed all findings and current treatment plan with patient/Family/POA -Consultations reviewed for recommendations -Patient's disposition for safe discharge discussed with disease case manager Dictation performed by [employer] direct speech recognition software, therefore oracle sql developer variants and typographical errors may occur. Hospitalist MIPS Advance Care Plan I have confirmed that the patient's Advanced Care Plan is present, code status is documented, or surrogate decision maker is listed in patient medical record.: Yes Medication Reconciliation I have utilized all available resources to obtain, update and review the patients current medications (includes all prescriptions, OTC, herbals, cannabis, and nutritional supplements).: Yes The patient is not eligible for med reconciliation; the patient is in a emergent medical situation where delaying treatment would jeopardize the patients health.: No
[2024-10-16] MEDS: ALBUMIN HUMAN 25% 25 GM/100 ML 100 ML IVPB (17:00)
[2024-10-16] MEDS: LORazepam INJ (*CRX) 2 MG/ML VIAL 1 MG IV PUSH (19:49)
[2024-10-16] MEDS: SENNA/DOCUSATE SODIUM TABLET 1 TAB PO (19:50)
[2024-10-16] MEDS: HYDROcodone/acetaminophen (*CRX) 5-325 MG TABLET 1 TAB PO (19:52)
[2024-10-16] MEDS: MORPHINE SULFATE (*CRX) 2 MG/ML INJ IV PUSH (23:18)
[2024-10-17] VITALS: BP 151/47; PULSE 85; RESP 17; TEMP 36.6; O2SAT 97
[2024-10-17 05:34] LABS: Hematocrit 26.2 % (35.0-42.0); Hemoglobin 7.7 g/dL (11.7-13.8); Mean Corpuscular HGB Conc 29.4 g/dL (32-36); Mean Corpuscular Hemoglobin 22.3 pg (27.0-31.0); Mean Corpuscular Volume 75.9 fL (78.0-102.0); Mean Platelet Volume 8.2 fl (9.2-11.8); Platelet Count Result 349 K/mm3 (150-420); Red Blood Count 3.45 M/mm3 (4.20-5.40); White Blood Count 5.5 K/mm3 (4.8-10.8)
[2024-10-17 05:50] LABS: Alanine Aminotransferase 12 U/L (14-59); Albumin Level 2.1 g/dL (3.4-5.0); Alkaline Phosphatase 104 U/L (46-116); Anion Gap 5 mmol/L (4-12); Aspartate Amino Transferase < 10 U/L (15-37); Bilirubin,Total 0.6 mg/dL (0.00-1.00); Blood Urea Nitrogen 17 mg/dL (7-18); Carbon Dioxide 33 mmol/L (21-32); Chloride 104 mmol/L (98-108); Estimated CRCL calculation 38 ml/min; Estimated Glomerular Filt Rate > 60; Glucose 95 mg/dL (70-99); Osmolality Calculated 295 mOsm/kg (285-295); Potassium 3.8 mmol/L (3.5-5.1); Sodium 142 mmol/L (136-145)
[2024-10-17 07:40] VITALS: BP 158/57; PULSE 91; RESP 16; TEMP 36.8; O2SAT 95
[2024-10-17] MEDS: POTASSIUM CHLORIDE 20 MEQ PACKET (FOR LIQUID) 40 MEQ PO (09:07)
[2024-10-17] MEDS: ASPIRIN 81 MG ENTERIC TABLET PO (09:07)
[2024-10-17] MEDS: FUROSEMIDE INJ 40 MG/4 ML VIAL IV PUSH ×2 (09:07→17:50)
[2024-10-17] MEDS: LOSARTAN POTASSIUM 50 MG TABLET 100 MG PO (09:07)
[2024-10-17] MEDS: FERROUS SULFATE 325 MG TABLET DR PO ×2 (09:08→17:51)
--- NOTE | 2024-10-17 10:28 | P.PNIM_ITS ---
Progress Note: A&P Assessment and Plan (1) CHF (congestive heart failure): Qualifiers: Heart failure chronicity: unspecified Heart failure type: unspecified Qualified Code(s): I50.9 - Heart failure, unspecified Code(s): I50.9 - Heart failure, unspecified Status: Acute Assessment and Plan: patient reports history of congestive heart failure however she stopped taking all medications, presented today with moderate to severe edema to bilateral lower extremities Acute on chronic diastolic heart failure * BNP >8000 * IV Lasix b.i.d. * monitor renal function during diuresis * echocardiogram pending * EKG SR with BBB * chest x-ray reviewed * Resumed losartan started ASA * elevate/Rajiv wrap legs if needed 10/17/2024 * appears euvolemic today we will transition to oral Lasix (2) Hypertension: Code(s): I10 - Essential (primary) hypertension Status: Chronic Assessment and Plan: * Hypertensive on admission * not taking any BP medication stopped Losartan a year ago * Resumed 100mg daily losartan * monitor BP per unit protocol * adjust as needed (3) JUSTYN (acute kidney injury): Code(s): N17.9 - Acute kidney failure, unspecified Status: Resolved Assessment and Plan: patient with previous history CKD close to baseline small bump on admission * Avoid nephrotoxic drugs. * Monitor antihypertensive drug therapy. * Avoid NSAIDs. * Routine CMP monitoring GFR. * Monitor electrolytes especially potassium. RESOLVED (4) History of cardiac ablation for 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: Code(s): Z98.890 - Other specified postprocedural states; I48.91 - Unspecified 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 Status: Acute Assessment and Plan: Off Note for 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 2016 (5) Malnutrition: Code(s): E46 - Unspecified protein-calorie malnutrition Status: Acute Assessment and Plan: * encourage protein shakes with each meal (6) Non-STEMI (non-ST elevated myocardial infarction): Code(s): I21.4 - Non-ST elevation (NSTEMI) myocardial infarction Status: Acute Assessment and Plan: patient made aware of elevated troponins the possible need for evaluation by Cardiology however at this time patient states she does not want any cardiac interventions including cardiac catheterization or stress test she was made aware of the risks, elevated troponins trending flat could be secondary to CHF exacerbation, CKD and anemia * 209.4 <193<208.9 NG/L * echocardiogram pending * added ASA daily * resumed losartan 100 mg * patient wants no interventions or stress test (7) Anemia: Qualifiers: Anemia type: unspecified type Qualified Code(s): D64.9 - Anemia, uns pecified Code(s): D64.9 - Anemia, unspecified Status: Acute Assessment and Plan: patient reported history of previous chronic anemia secondary to iron 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 was following with a network systems administrator outpatient and had previously received iron transfusions patient reports she stopped taking her iron supplement due to constipation. * Hgb 6.8 * No acute bleeding noted * transfused 1 unit PRBC * started Ferrous Sulfate BID with stool softners * monitor and trend transfuse PRBC if Hgb <7.0 * Encouraged iron enriched foods 10/17/2024 * Hgb 7.7 today * Patient denying any blood in stool will get and occult * give iron infusion (8) Hypoalbuminemia: Code(s): E88.09 - Other disorders of plasma-protein metabolism, not elsewhere classified Status: Acute Assessment and Plan: * albumin 1.9 could be secondary to her anasarca in malnutrition * albumin 25% x1 Plan Code status: Full code per patient DVT prophylaxis: SCD's Stress ulcer prophylaxis: Protonix 40 daily PT/OT notes: SWING Bed Disposition: Patient continues admission to the medical unit for further evaluation and treatment of CHF exacerbation and anemia will monitor hemoglobin and transfuse as needed continue with IV Lasix echocardiogram scheduled for 10/19/2024. plan for patient to discharge to swing bed for further re habilitation needs. Time Spent With Patient Time with patient: 15 - 25 minutes Subjective Date/time seen: 10/17/24 10:28 Interval history: Patient is an 89-year-old female who presented to the emergency department with increased generalized weakness and increased swelling to bilateral lower extremities. Patient does report she had a past medical history of chronic kidney disease, 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 with an ablation x2, HTN and anemia. patient reports she does live home alone and was unable to ambulate or care for self due to worsening swelling. Patient was admitted to the medical unit for further evaluation and treatment of CHF exacerbation, anemia and acute on chronic renal failure. 10/17/2024: Patient reporting weakness and very tired today otherwise denies CP, SOB, dizziness likely secondary to diuresis and low blood counts appears euvolemic today will transition back to oral Lasix. hemoglobin did have almost a 2 point drop will get an occult stool. Review of Systems Review of Systems: All systems reviewed & are unremarkable except as noted in HPI and below Exam Narrative: * GENERAL: Alert and oriented x 3 pleasant female up in chair lethargic. No acute distress. * EYES: PERRLA. * HEENT: Moist mucous membranes. * LUNGS: Clear to auscultation bilaterally. No accessory muscle use. * CARDIOVASCULAR: Regular rate and rhythm. Murmur noted ? echo pending. No JVD. S1-S2 * ABDOMEN: Soft, non tenderness and non-distended. No palpable masses. * EXTREMITIES: 2+ pitting edema. Non-tender * SKIN: No rashes or lesions. Skin warm, dry. Pale * NEUROLOGIC: No focal neurological deficits. CN II-XII grossly intact * PSYCHIATRIC: Appropriate mood and affect. Good judgement and insight. Objective Data Vital Signs Vital Signs: Vital Signs - 24 hr 10/16/24 11:12 10/16/24 12:00 10/16/24 16:40 Temperature 97.3 F L 98.1 F 97.7 F Pulse Rate 72 70 83 Respiratory Rate 16 16 16 Blood Pressure 156/52 H 147/47 H 155/53 H Pulse Oximetry 99 99 98 Oxygen Delivery Room Air 10/16/24 20:00 10/16/24 20:50 10/17/24 00:00 Temperature 97.9 F Pulse Rate 83 70 85 Respiratory Rate 16 17 17 Blood Pressure 151/47 H Pulse Oximetry 98 99 97 Oxygen Delivery Room Air Room Air Room Air 10/17/24 07:40 Temperature 98.3 F Pulse Rate 91 Respiratory Rate 16 Blood Pressure 158/57 H Pulse Oximetry 95 Oxygen Delivery Room Air Intake/Output Intake/Output: Intake & Output 10/14/24 10/15/24 10/16/24 10/17/24 23:59 23:59 23:59 23:59 Intake Total 750 1710 360 Output Total 1119 3219 2514 Balance -1200 -9399 -114 Meds/Results Medications: Active Medications Generic Name Dose Route Start Last Admin Trade Name Freq PRN Reason Stop Dose Admin Acetaminophen 650 mg 10/15/24 08:18 10/16/24 10:00 Acetaminophen 325 Mg Tablet PO 650 mg Q4H PRN Administration Mild Pain (1-3) or Fever Hydrocodone Bitart/Acetaminophen 1 tab 10/15/24 08:18 10/16/24 19:52 Hydrocodone/Acetaminophen (*Crx) 5-325 Mg Tablet PO 1 tab Q4H PRN Administration Moderate Pain (4-6) Al Hydrox/Mg Hydrox/Simethicone 30 ml 10/15/24 08:18 Mag Hydrox/Al Hydrox/Simeth 30 Ml Udc PO QID PRN Dyspepsia Aspirin 81 mg 10/17/24 09:00 10/17/24 09:07 Aspirin 81 Mg Enteric Tablet PO 81 mg QAM ANGELINE Administration Ferrous Sulfate 325 mg 10/16/24 09:00 10/17/24 09:08 Ferrous Sulfate [address] PO 325 mg BID ANGELINE Administration Furosemide 40 mg 10/16/24 09:00 10/17/24 09:07 Furosemide Inj 40 Mg/4 Ml Vial IV PUSH 40 mg BID ANGELINE Administration Lorazepam 1 mg 10/15/24 18:19 10/16/24 19:49 Lorazepam Inj (*Crx) 2 Mg/Ml Vial IV PUSH 1 mg Q6H PRN Administration Anxiety Losartan Potassium 100 mg 10/15/24 17:31 10/17/24 09:07 Losartan Potassium 50 Mg Tablet PO 100 mg QAM ANGELINE Administration Morphine Sulfate 2 mg 10/15/24 08:18 10/16/24 23:18 Morphine Sulfate (*Crx) 2 Mg/Ml Inj IV PUSH 2 mg Q4H PRN Administration Pain Rated 7-10 Naloxone HCl 0.1 mg 10/15/24 08:18 Naloxone Hcl 0.4 Mg/Ml Vial IV PUSH Q2M PRN Opiate Reversal Ondansetron HCl 4 mg 10/15/24 08:18 Ondansetron Inj 4 Mg/2 Ml Vial IV PUSH Q6H PRN Nausea And Vomiting Perflutren Lipid Microsphere 0 ml 10/15/24 20:44 Perflutren Lipid Microspheres 1.5 Ml Vial Diluted To 10 Ml Total Volume IV PUSH 10/18/24 20:44 ONCE PRN adequate visualization Protocol Polyethylene Glycol 17 gm 10/16/24 14:47 Polyethylene Glycol 3350 17 Gm Powd.Pack PO QAM PRN Constipation Potassium Chloride 40 meq 10/15/24 17:30 10/17/24 09:07 Potassium Chloride 20 Meq Packet (For Liquid) PO 40 meq DAILY ANGELINE Administration Senna/Docusate Sodium 1 tab 10/16/24 21:00 10/16/24 19:50 Senna/Docusate Sodium Tablet PO 1 tab HS ANGELINE Administration Radiology Results: ITS Impressions Chest X-Ray 10/15/24 07:44 IMPRESSION: Bilateral hyperinflation and minimal atelectasis at the lung bases Labs Labs: Laboratory Results - last 24 hr 10/16/24 10/16/24 10/17/24 06:30 13:50 05:23 WBC 5.5 RBC 3.45 L Hgb 9.2 L 7.7 L Hct 31.9 L 26.2 L MCV 75.9 L MCH 22.3 L MCHC 29.4 L RDW 18.0 H Plt Count 349 MPV 8.2 L Sodium 142 Potassium 3.8 Chloride 104 Carbon Dioxide 33 H Anion Gap 5 BUN 17 Creatinine 0.85 Estim Creat Clear Calc 38 Estimated GFR > 60 Glucose 95 Calculated Osmolality 295 Calcium 8.0 L Total Bilirubin 0.6 AST < 10 L ALT 12 L Alkaline Phosphatase 104 Total Protein 5.0 L Albumin 2.1 L Blood Type O Negative Antibody Screen Negative Crossmatch See Detail Quality VTE Prophylaxis VTE prophylaxis: mechanical ordered -Patient's previous records reviewed on admission -ER notes reviewed in detail on admission -discussed all findings and current treatment plan with patient/Family/POA -Consultations reviewed for recommendations -Patient's disposition for safe discharge discussed with family service caseworker Dictation performed by [employer] direct speech recognition software, therefore psychology technician variants and typographical errors may occur. Hospitalist MIPS Advance Care Plan I have confirmed that the patient's Advanced Care Plan is present, code status is documented, or surrogate decision maker is listed in patient medical record.: Yes Medication Reconciliation I have utilized all available resources to obtain, update and review the patients current medications (includes all prescriptions, OTC, herbals, cannabis, and nutritional supplements).: Yes The patient is not eligible for med reconciliation; the patient is in a emergent medical situation where delaying treatment would jeopardize the patients heal th.: No
[2024-10-17] MEDS: HYDROcodone/acetaminophen (*CRX) 5-325 MG TABLET 1 TAB PO ×2 (12:06→19:30)
[2024-10-17 16:45] VITALS: BP 163/58; PULSE 79; RESP 16; TEMP 36.4; O2SAT 99
[2024-10-17] MEDS: SENNA/DOCUSATE SODIUM TABLET 1 TAB PO (20:50)
[2024-10-18] VITALS: BP 149/46; PULSE 82; RESP 18; TEMP 36.9; O2SAT 98
[2024-10-18] MEDS: HYDROcodone/acetaminophen (*CRX) 5-325 MG TABLET 1 TAB PO ×3 (03:30→22:45)
[2024-10-18 05:14] LABS: Hematocrit 27.3 % (35.0-42.0); Mean Corpuscular HGB Conc 29.3 g/dL (32-36); Mean Platelet Volume 7.8 fl (9.2-11.8); Platelet Count Result 376 K/mm3 (150-420); Red Blood Count 3.64 M/mm3 (4.20-5.40); Red Cell Distribution Width 18.6 % (11.6-14.4); White Blood Count 5.6 K/mm3 (4.8-10.8)
[2024-10-18 05:31] LABS: Alanine Aminotransferase 9 U/L (14-59); Albumin Level 2.1 g/dL (3.4-5.0); Alkaline Phosphatase 119 U/L (46-116); Anion Gap 9 mmol/L (4-12); Aspartate Amino Transferase 12 U/L (15-37); Bilirubin,Total 0.5 mg/dL (0.00-1.00); Blood Urea Nitrogen 17 mg/dL (7-18); Calcium 8.2 mg/dL (8.5-10.1); Carbon Dioxide 30 mmol/L (21-32); Chloride 101 mmol/L (98-108); Estimated CRCL calculation 37 ml/min; Estimated Glomerular Filt Rate 60; Glucose 115 mg/dL (70-99); Osmolality Calculated 292 mOsm/kg (285-295); Potassium 3.7 mmol/L (3.5-5.1); Sodium 140 mmol/L (136-145); Total Protein 5.4 g/dL (6.4-8.2)
[2024-10-18 08:00] VITALS: BP 157/46; PULSE 81; RESP 16; TEMP 36.7; O2SAT 97
[2024-10-18] MEDS: FERROUS SULFATE 325 MG TABLET DR PO ×2 (09:06→16:17)
[2024-10-18] MEDS: LOSARTAN POTASSIUM 50 MG TABLET 100 MG PO (09:06)
[2024-10-18] MEDS: FUROSEMIDE INJ 40 MG/4 ML VIAL IV PUSH (09:07)
[2024-10-18] MEDS: POTASSIUM CHLORIDE 20 MEQ PACKET (FOR LIQUID) 40 MEQ PO (09:07)
[2024-10-18] MEDS: IRON SUCROSE COMPLEX 100 MG in SODIUM CHLORIDE 0.9% IV 50 ML 220 MG IVPB (09:08)
--- NOTE | 2024-10-18 13:03 | P.PNIM_ITS ---
Progress Note: A&P Assessment and Plan (1) CHF (congestive heart failure): Qualifiers: Heart failure chronicity: unspecified Heart failure type: unspecified Qualified Code(s): I50.9 - Heart failure, unspecified Code(s): I50.9 - Heart failure, unspecified Status: Acute Assessment and Plan: patient reports history of congestive heart failure however she stopped taking all medications, presented today with moderate to severe edema to bilateral lower extremities Acute on chronic diastolic heart failure * BNP >8000 * IV Lasix b.i.d. * monitor renal function during diuresis * echocardiogram pending * EKG SR with BBB * chest x-ray reviewed * Resumed losartan started ASA * elevate/Rajiv wrap legs if needed 10/17/2024 * appears euvolemic today we will transition to oral Lasix 10/18 * Euvolemic, on oral Lasix * Echo ordered (2) Hypertension: Code(s): I10 - Essential (primary) hypertension Status: Chronic Assessment and Plan: * Hypertensive on admission * not taking any BP medication stopped Losartan a year ago * Resumed 100mg daily losartan * monitor BP per unit protocol * adjust as needed 10/18 * blood pressures ranging 149/46 to 163/58 * continue losartan 100 mg daily * will start amlodipine 5 mg daily for better control, will hold off on giving her hydrochlorothiazide due to her acute kidney injury and she is already on Lasix. (3) JUSTYN (acute kidney injury): Code(s): N17.9 - Acute kidney failure, unspecified Status: Resolved Assessment and Plan: patient with previous history CKD close to baseline small bump on admission * Avoid nephrotoxic drugs. * Monitor antihypertensive drug therapy. * Avoid NSAIDs. * Routine CMP monitoring GFR. * Monitor electrolytes especially potassium. RESOLVED (4) History of cardiac ablation for 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: Code(s): Z98.890 - Other specified postprocedural states; I48.91 - Unspecified 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 Status: Acute Assessment and Plan: Of Note for 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 2017 (5) Malnutrition: Code(s): E46 - Unspecified protein-calorie malnutrition Status: Acute Assessment and Plan: 10/18 * encourage protein shakes with each meal * Nut Tightener consulted (6) Anemia: Qualifiers: Anemia type: unspecified type Qualified Code(s): D64.9 - Anemia, unspecified Code(s): D64.9 - Anemia, unspecified Status: Acute Assessment and Plan: patient reported history of previous chronic anemia secondary to iron 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 * Hgb 6.8 * No acute bleeding noted * transfused 1 unit PRBC * started Ferrous Sulfate BID with stool softners * monitor and trend transfuse PRBC if Hgb <7.0 * Encouraged iron enriched foods 10/17/2024 * Hgb 7.7 today * Patient denying any blood in stool will get and occult * give iron infusion 10/18 * Hgb 8.0 today * Occult blood negative * continue ferrous sulfate * Had iron infusion this admission (7) Hypoalbuminemia: Code(s): E88.09 - Other disorders of plasma-protein metabolism, not elsewhere classified Status: Acute Assessment and Plan: * albumin 1.9 could be secondary to her anasarca in malnutrition * albumin 25% x1 (8) Non-STEMI (non-ST elevated myocardial infarction): Code(s): I21.4 - Non-ST elevation (NSTEMI) myocardial infarction Status: Acute Assessment and Plan: patient made aware of elevated troponins the possible need for evaluation by Cardiology however at this time patient states she does not want any cardiac interventions including cardiac catheterization or stress test she was made aware of the risks, elevated troponins trending flat could be secondary to CHF exacerbation, CKD and anemia * 209.4 <193<208.9 NG/L * echocardiogram pending * added ASA daily * resumed losartan 100 mg * patient wants no interventions or stress test (9) Weakness generalized: Code(s): R53.1 - Weakness Status: Acute Assessment and Plan: 10/18 * Continue PT and OT * Continue fall precautions * Case management following * Awaiting insurance approval for swing bed program here at [place] Time Spent With Patient Time with patient: 25 - 35 minutes Subjective Date/time seen: 10/18/24 13:03 Interval history: Interval history: This is an 89-year-old female who presented to the hospital on 10/15/2024 with complaints of weakness. Workup in the hospital included a chest x-ray which shown bilateral hyperinflation and minimal atelectasis at the lung bases. Initial labs revealed a white blood cell count of 7.4, hemoglobin 7.6> 6.8 re quiring blood transfusion, INR 1.0. EKG showed sinus rhythm with right bundle branch block with a rate of 80, QTC 480. Patient was given Ativan, morphine while in the ED. she was then given Lasix 40 mg IV push b.i.d. once admitted to the floor. Patient received 1 unit of blood on 10/16/2024. Hemoglobin immediately post infusion was 9.2 then dropped to 7.7 yesterday and now is at 8.0 today. Her Lasix was also switched over to oral yesterday. PT and OT have been working with her and is recommending swing bed for rehab. subjective: Patient denies any fever, chills, nausea, vomiting, diarrhea, abdominal pain, chest pain, shortness a breath. She states she is much improved since she 1st was admitted. She still is requiring PT and OT as she does have some gen eralized weakness. Labs and imaging reviewed. Review of Systems Review of Systems: All systems reviewed & are unremarkable except as noted in HPI and below Constitutional: Constitutional: Reports as per HPI and Reports no additional constitutional complaints Eyes: Eyes: Reports as per HPI and Reports no additional eye complaints ENT: Reports system reviewed and no additional complaints, except as documented and Reports as per HPI Cardiovascular: Cardiovascular: Reports as per HPI and Reports no additional cardiovascular complaints Respiratory: Respiratory: Reports as per HPI and Reports no additional respiratory complaints Gastrointestinal: Gastrointestinal: Reports as per HPI and Reports no additional gastrointestinal complaints Genitourinary: Genitourinary: Reports no additional female genitourinary complaints and Reports as per HPI Musculoskeletal: Musculoskeletal: Reports no additional musculoskeletal complaints and Reports as per HPI Integumentary/Breasts: Skin/Breast: Reports system reviewed and no additional complaints, except as docu and Reports as per HPI Neurologic: Reports system reviewed and no additional complaints, except as documented and Reports as per HPI Psychiatric: Psychiatric: Reports no additional psychiatric complaints and Reports as per HPI Exam Narrative: General: In no acute distress Head: atraumatic, no encephalopathy Eyes: PERRLA, sclera clear ENT: moist mucous membranes, nasal passages clear Neck: supple, no JVD, no adenopathy, trachea midline Cardiac: Normal S1 and S2. No murmur, gallops or friction rubs, peripheral pulses intact. Respiratory: Lungs clear to auscultation, no adventitious lung sounds, currently on room air Gastrointestinal: soft, non-distended, non-tender, normoactive bowel sounds. BM noted today : franz catheter in place draining clear [place] urine. Extremities: moves all extremities well, 1+ pitting edema BLE Skin: clean, dry, intact. No wounds or lesions. Neuro: Alert and oriented x4, cranial nerves intact, no neuro deficits. Psych: normal mood, normal affect, interactive Objective Data Vital Signs Vital Signs: Vital Signs - 24 hr 10/17/24 16:45 10/18/24 00:00 10/18/24 08:00 Temperature 97.5 F L 98.5 F 98.1 F Pulse Rate 79 82 81 Respiratory Rate 16 18 16 Blood Pressure 163/58 H 149/46 H 157/46 H Pulse Oximetry 99 98 97 Oxygen Delivery Room Air Room Air Room Air Intake/Output Intake/Output: Intake & Output 10/15/24 10/16/24 10/17/24 10/18/24 23:59 23:59 23:59 23:59 Intake Total 750 1710 870 860 Output Total 6776 3475 4375 1300 Balance -1200 -1765 -3505 -440 Meds/Results Medications: Active Medications Generic Name Dose Route Start Last Admin Trade Name Freq PRN Reason Stop Dose Admin Acetaminophen 650 mg 10/15/24 08:18 10/16/24 10:00 Acetaminophen 325 Mg Tablet PO 650 mg Q4H PRN Administration Mild Pain (1-3) or Fever Hydrocodone Bitart/Acetaminophen 1 tab 10/15/24 08:18 10/18/24 09:05 Hydrocodone/Acetaminophen (*Crx) 5-325 Mg Tablet PO 1 tab Q4H PRN Administration Moderate Pain (4-6) Al Hydrox/Mg Hydrox/Simethicone 30 ml 10/15/24 08:18 Mag Hydrox/Al Hydrox/Simeth 30 Ml Udc PO QID PRN Dyspepsia Aspirin 81 mg 10/17/24 09:00 10/17/24 09:07 Aspirin 81 Mg Enteric Tablet PO 81 mg QAM ANGELINE Administration Ferrous Sulfate 325 mg 10/16/24 09:00 10/18/24 09:06 Ferrous Sulfate [address] PO 325 mg BID ANGELINE Administration Furosemide 40 mg 10/16/24 09:00 10/18/24 09:07 Furosemide Inj 40 Mg/4 Ml Vial IV PUSH 40 mg BID ANGELINE Administration Iron Sucrose 100 mg/ Sodium 55 mls @ 220 mls/hr 10/18/24 09:00 10/18/24 09:08 Chloride IVPB 220 mls/hr DAILY ANGELINE Administration Losartan Potassium 100 mg 10/15/24 17:31 10/18/24 09:06 Losartan Potassium 50 Mg Tablet PO 100 mg QAM ANGELINE Administration Naloxone HCl 0.1 mg 10/15/24 08:18 Naloxone Hcl 0.4 Mg/Ml Vial IV PUSH Q2M PRN Opiate Reversal Ondansetron HCl 4 mg 10/15/24 08:18 Ondansetron Inj 4 Mg/2 Ml Vial IV PUSH Q6H PRN Nausea And Vomiting Perflutren Lipid Microsphere 0 ml 10/15/24 20:44 Perflutren Lipid Microspheres 1.5 Ml Vial Diluted To 10 Ml Total Volume IV PUSH 10/18/24 20:44 ONCE PRN adequate visualization Protocol Polyethylene Glycol 17 gm 10/16/24 14:47 Polyethylene Glycol 3350 17 Gm Powd.Pack PO QAM PRN Constipation Potassium Chloride 40 meq 10/15/24 17:30 10/18/24 09:07 Potassium Chloride 20 Meq Packet (For Liquid) PO 40 meq DAILY ANGELINE Administration Senna/Docusate Sodium 1 tab 10/16/24 21:00 10/17/24 20:50 Senna/Docusate Sodium Tablet PO 1 tab HS ANGELINE Administration Radiology Results: ITS Impressions Chest X-Ray 10/15/24 07:44 IMPRESSION: Bilateral hyperinflation and minimal atelectasis at the lung bases Labs Labs: Laboratory Results - last 24 hr 10/18/24 05:03 WBC 5.6 RBC 3.64 L Hgb 8.0 L Hct 27.3 L MCV 75.0 L MCH 22.0 L MCHC 29.3 L RDW 18.6 H Plt Count 376 MPV 7.8 L Sodium 140 Potassium 3.7 Chloride 101 Carbon Dioxide 30 Anion Gap 9 BUN 17 Creatinine 0.89 Estim Creat Clear Calc 37 Estimated GFR 60 Glucose 115 H Calculated Osmolality 292 Calcium 8.2 L Total Bilirubin 0.5 AST 12 L ALT 9 L Alkaline Phosphatase 119 H Total Protein 5.4 L Albumin 2.1 L Quality VTE Prophylaxis VTE prophylaxis: mechanical ordered
[2024-10-18 16:00] VITALS: BP 151/51; PULSE 78; RESP 18; TEMP 36.8; O2SAT 98
[2024-10-18] MEDS: amLODIPine BESYLATE 5 MG TABLET PO (16:17)
--- NOTE | 2024-10-18 17:19 | PC.NURSE ---
Patient very tearful, wanting to call her mother. Attempting out of chair to leave facility. Much encouragement needed to console.
--- NOTE | 2024-10-18 17:32 | PC.NURSE ---
Was able to get ahold of pts family, Nel. Resident now talking to Nel on phone, still crying but not trying to get out of chair.
--- NOTE | 2024-10-18 18:01 | PC.NURSE ---
Patient now resting in bed with eyes closed.
[2024-10-18 18:34] LABS: Occult Blood Negative (Negative)
[2024-10-18 20:00] VITALS: PULSE 89; RESP 18; O2SAT 95
[2024-10-18] MEDS: SENNA/DOCUSATE SODIUM TABLET 1 TAB PO (21:19)
--- NOTE | 2024-10-18 22:40 | PC.NURSE ---
Pt crying and sitting at end of her bed wanting to get out of it to use BR. Pt assisted to BR and she was unable to urinate. Pt assisted back to bed w/ depend in place and c/o severe pain to her knees and bones. Pt asked if she wanted pain med and she stated yes at this time. Pt positions self in bed, call lou at side.
[2024-10-18 23:46] VITALS: BP 139/50; PULSE 88; RESP 18; TEMP 37.2; O2SAT 95
[2024-10-19 05:07] LABS: Hematocrit 33.8 % (35.0-42.0); Mean Corpuscular HGB Conc 26.6 g/dL (32-36); Mean Corpuscular Hemoglobin 22.3 pg (27.0-31.0); Mean Corpuscular Volume 83.9 fL (78.0-102.0); Platelet Count Result 382 K/mm3 (150-420); Red Blood Count 4.03 M/mm3 (4.20-5.40); Red Cell Distribution Width 19.2 % (11.6-14.4); White Blood Count 5.9 K/mm3 (4.8-10.8)
[2024-10-19 05:24] LABS: Alanine Aminotransferase < 6 U/L (14-59); Albumin Level 2.2 g/dL (3.4-5.0); Alkaline Phosphatase 126 U/L (46-116); Anion Gap 5 mmol/L (4-12); Aspartate Amino Transferase 15 U/L (15-37); Bilirubin,Total 0.6 mg/dL (0.00-1.00); Blood Urea Nitrogen 19 mg/dL (7-18); Calcium 8.8 mg/dL (8.5-10.1); Carbon Dioxide 29 mmol/L (21-32); Chloride 101 mmol/L (98-108); Estimated CRCL calculation 40 ml/min; Estimated Glomerular Filt Rate > 60; Glucose 105 mg/dL (70-99); Osmolality Calculated 282 mOsm/kg (285-295); Potassium 4.7 mmol/L (3.5-5.1); Sodium 135 mmol/L (136-145)
--- NOTE | 2024-10-19 06:00 | ECHO_ITS ---
Patient Info Name: Quin Talley Age: 89 years : 1935 Gender: Female Ht: 66 in Wt: 134 lbs BSA: 1.68 m2 HR: 88 bpm BP: 139 / 50 mmHg Heart Rhythm: Sinus Rhythm Technical Quality: Good Exam Date: 10/19/2024 9:49 AM Exam Location: Echo Lab Exam Room: [facility] Patient Status: Inpatient Admit Date: 10/16/2024 Staff Ordering Physician: Gwyn Kim DO Dub Room Engineer: Mia Dao RDCS Attending Provider: Flor Smith APRN Referring Physician: Julio MERRILL; Exam Type: CA echo doppler color flow Study Info Complete two-dimensional, color flow and Doppler transthoracic echocardiogram is performed. Summary 1. Complete two-dimensional, color flow and Doppler transthoracic echocardiogram is performed. 2. Left ventricular chamber dimension is normal. 3. Left ventricular systolic function is normal, estimated at 55-60%. 4. The left ventricular diastolic function is grade I diastolic dysfunction. 5. E/e' 16 is elevated. 6. The aortic valve is not well visualized. Cannot determine number of aortic valve leaflets. 7. There is at least moderate aortic valve sclerosis. 8. There is moderate to severe aortic valve stenosis with a peak velocity of 356 cm/s, mean gradient of 26 mmHg, and aortic valve area of 0.9 cm2. 9. The mitral valve has moderately calcified annulus. 10. There is mild mitral valve regurgitation. 11. There is trace tricuspid valve regurgitation. 12. No pulmonary hypertension, estimated pulmonary arterial systolic pressure is 24 mmHg. Left Ventricle E/e' 16 is elevated. Left ventricular chamber dimension is normal. Left ventricular systolic function is normal, estimated at 55-60%. The left ventricular diastolic function is grade I diastolic dysfunction. Right Ventricle Right ventricular systolic function is normal and with normal TAPSE 2.3 cm. Right ventricular chamber dimension is normal. Left Atria Left atrial chamber dimension is normal. Right Atria Right atrial chamber dimension is normal. Aortic Valve The aortic valve is not well visualized. Cannot determine number of aortic valve leaflets. There is at least moderate aortic valve sclerosis. There is moderate to severe aortic valve stenosis with a peak velocity of 356 cm/s, mean gradient of 26 mmHg, and aortic valve area of 0.9 cm2. There is no aortic valve regurgitation. Pulmonic Valve The pulmonic valve is not well visualized. Mitral Valve The mitral valve has moderately calcified annulus. There is no mitral valve stenosis. There is mild mitral valve regurgitation. Tricuspid Valve There is trace tricuspid valve regurgitation. No pulmonary hypertension, estimated pulmonary arterial systolic pressure is 24 mmHg. Pericardium/Pleural There is no pericardial effusion. Inferior Vena Cava Normal inferior vena cava with >50% collapse upon inspiration consistent with normal right atrial pressure, 5 mmHg. Aorta The aortic root size at the sinus of Valsalva is normal. Left Ventricular Outflow Tract Name Value Normal LVOT 2D LVOT Diameter 1.8 cm LVOT Doppler LVOT Peak Velocity 154 cm/s LVOT Peak Gradient 10 mmHg LVOT Mean Gradient 5 mmHg LVOT VTI 28 cm LVOT VTI/AV VTI Ratio 0.4 LVOT Stroke Volume 70 ml Pulmonic Valve Name Value Normal PV Doppler PV Peak Velocity 121 cm/s PV Peak Gradient 6 mmHg Mitral Valve Name Value Normal MV Doppler MV Peak Gradient 8 mmHg MV Mean Gradient 3 mmHg MV Decel Mccracken 321 cm/s2 MV PHT 102 ms MV Area (PHT) 2.2 cm2 4.0-5.0 MV Area (Cont Eq VTI) 1.8 cm2 MV Regurgitation Doppler MR Peak Gradient 196 mmHg MV Diastolic Function MV E Peak Velocity 112 cm/s MV A Peak Velocity 126 cm/s MV E/A 0.9 MV Decel Time 350 ms Tricuspid Valve Name Value Normal TV Regurgitation Doppler TR Peak Velocity 219 cm/s TR Peak Gradient 19 mmHg Estimated PAP/RSVP RA Pressure 5 mmHg <=5 PA Systolic Pressure 24 mmHg <36 RV Systolic Pressure 24 mmHg <36 Aortic Valve Name Value Normal AV Doppler AV Peak Velocity 356 cm/s AV Peak Gradient 40 mmHg AV Mean Gradient 26 mmHg AV VTI 78 cm AV Area (Cont Eq VTI) 0.9 cm2 >=3.0 AV Area (Cont Eq Festus) 1.1 cm2 AV V1/V2 Ratio 0.43 AV Regurgitation 2D LVOT Area 2.5 cm2 Ventricles Name Value Normal LV Dimensions 2D/MM IVS Diastolic Thickness (2D) 0.7 cm 0.6-1.0 LVID Diastole (2D) 4.7 cm 3.8-5.2 LVIW Diastolic Thickness (2D) 0.7 cm 0.6-0.9 LVID Systole (2D) 3.5 cm 2.2-3.5 LVOT Diameter 1.8 cm LV Mass (2D Cubed) 104.12 g 67.00-162.00 LV Mass Index (2D Cubed) 62 g/m2 43-95 Relative Wall Thickness (2D) 0.30 LV Fractional Shortening/Ejection Fraction 2D/MM LV Fractional Shortening (2D) 26 % 27-45 LV EF (2D Teicholz) 51 % 54-74 LV Diastolic Volume (4C MOD) 104 ml LV EF (4C MOD) 58 % LV Diastolic Volume (2C MOD) 120 ml LV EF (2C MOD) 61 % LV Diastolic Volume (BP MOD) 112 ml 46-106 LV Diastolic Volume Index (BP MOD) 66 ml/m2 29-61 LV Systolic Volume (BP MOD) 46 ml 14-42 LV Systolic Volume Index (BP MOD) 27 ml/m2 8-24 LV EF (BP MOD) 59 % 54-74 LV Diastolic Length (4C) 8.2 cm LV Systolic Length (4C) 6.8 cm LV Stroke Volume (4C MOD) 60 ml LV CO (BP MOD) 5.6 l/min LV CI (BP MOD) 3.4 l/min/m2 Atria Name Value Normal LA Dimensions LA Volume (4C A-L) 30 ml LA Volume (BP A-L) 43 ml RA Dimensions RA Area (4C) 15.6 cm2 <=18.0 Report Signatures
[2024-10-19 08:00] VITALS: BP 165/55; PULSE 84; RESP 18; TEMP 36.6; O2SAT 100
--- NOTE | 2024-10-19 08:34 | PM.DS ---
DS: Admitting Diagnosis Discharge Date 10/19/24 Admitting Diagnosis CHF DS: Discharge Diagnosis Discharge Diagnosis (1) CHF (congestive heart failure): Qualifiers: Heart failure chronicity: unspecified Heart failure type: unspecified Qualified Code(s): I50.9 - Heart failure, unspecified Code(s): I50.9 - Heart failure, unspecified Status: Acute (2) Hypertension: Code(s): I10 - Essential (primary) hypertension Status: Chronic (3) JUSTYN (acute kidney injury): Code(s): N17.9 - Acute kidney failure, unspecified Status: Resolved (4) History of cardiac ablation for 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: Code(s): Z98.890 - Other specified postprocedural states; I48.91 - Unspecified 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 Status: Acute (5) Malnutrition: Code(s): E46 - Unspecified protein-calorie malnutrition Status: Acute (6) Anemia: Qualifiers: Anemia type: unspecified type Qualified Code(s): D64.9 - Anemia, unspecified Code(s): D64.9 - Anemia, unspecified Status: Acute (7) Hypoalbuminemia: Code(s): E88.09 - Other disorders of plasma-protein metabolism, not elsewhere classified Status: Acute (8) Non-STEMI (non-ST elevated myocardial infarction): Code(s): I21.4 - Non-ST elevation (NSTEMI) myocardial infarction Status: Acute (9) Weakness generalized: Code(s): R53.1 - Weakness Status: Acute DS: Summary Hospital Course Reason for hospitalization: CHF Hospital Course: This is an 89-year-old female who presented to the hospital on 10/15/2024 with complaints of weakness. Workup in the hospital included a chest x-ray which shown bilateral hyperinflation and minimal atelectasis at the lung bases. Initial labs revealed a white blood cell count of 7.4, hemoglobin 7.6> 6.8 requiring blood transfusion, INR 1.0. EKG showed sinus rhythm with right bundle branch block with a rate of 80, QTC 480. Patient was given Ativan, morphine while in the ED. she was then given Lasix 40 mg IV push b.i.d. once admitted to the floor. Patient received 1 unit of blood on 10/16/2024. Hemoglobin immediately post infusion was 9.2 then dropped to 7.7 yesterday and now is at 8.0 today. Her Lasix was also switched over to oral yesterday. PT and OT have been working with her and is recommending swing bed for rehab. patient is stable for discharge at this time to swing bed program here at [facility]. Vital signs are stable, she is afebrile, she is currently on room air. Labs are unremarkable. final diagnosis: acute on chronic congestive heart failure, generalized deconditioning Status at Discharge Cognitive/behavioral status at discharge: alert and confused Functional status at discharge: uses cane/walker Overall status at discharge: patient is progressing back to baseline Time Spent with Patient Time attestation: Total time spent providing and/or coordinating discharge services: Time spent: Greater than 30 minutes Exam Narrative: General: In no acute distress Cardiac: Normal S1 and S2. No murmur, gallops or friction rubs, peripheral pulses intact. Respiratory: Lungs clear to auscultation, no adventitious lung sounds, currently on room air Gastrointestinal: soft, non-distended, non-tender, normoactive bowel sounds. BM noted today : voiding without difficulty Extremities: moves all extremities well, 1+ pitting edema BLE. Neuro: Alert and oriented x4 DS: Data Data Completed and Pending Completed studies during hospitalization: chest x-ray Pending studies at discharge: none Labs on day of discharge: Labs from last 24 hours 10/19/24 10/17/24 04:55 18:29 WBC 5.9 RBC 4.03 L Hgb 9.0 L Hct 33.8 L MCV 83.9 MCH 22.3 L MCHC 26.6 L RDW 19.2 H Plt Count 382 MPV 8.0 L Sodium 135 L Potassium 4.7 Chloride 101 Carbon Dioxide 29 Anion Gap 5 BUN 19 H Creatinine 0.80 Estim Creat Clear Calc 40 Estimated GFR > 60 Glucose 105 H Calculated Osmolality 282 L Calcium 8.8 Total Bilirubin 0.6 AST 15 ALT < 6 L Alkaline Phosphatase 126 H Total Protein 6.0 L Albumin 2.2 L Stool Occult Blood Negative Procedures/Treatments: none Discharge Plan Discharge Attending physician on discharge: Dat Babin Discharging Clinician: Flor Smith Anticipated Discharge Date/Time: 10/19/24 08:32 Patient Disposition: Hospital Swing Bed Patient Language: Citizen Of [place] Stand Alone Forms: General Discharge Information Discharge Medications: Continued losartan 100 mg tablet 100 mg PO DAILY Discontinued doxycycline hyclate 100 mg Tablet 100 mg PO Q12HR Qty: 10 0RF warfarin 4 mg tablet 4 mg PO DAILY hydrochlorothiazide 25 mg tablet 25 mg PO DAILY Date of admission: 10/16/24 15:23 Primary Care Provider: UNKNOWN,DOCTOR Admitting Provider: Dat Babin Attending physician on admission: Flor Smith Condition: Stable Quality VTE Prophylaxis VTE prophylaxis: mechanical ordered
[2024-10-19] MEDS: LOSARTAN POTASSIUM 50 MG TABLET 100 MG PO (09:33)
[2024-10-19] MEDS: amLODIPine BESYLATE 5 MG TABLET PO (09:33)
[2024-10-19] MEDS: FUROSEMIDE 40 MG TABLET PO (09:33)
[2024-10-19] MEDS: FERROUS SULFATE 325 MG TABLET DR PO (09:33)
[2024-10-19] MEDS: POTASSIUM CHLORIDE 20 MEQ PACKET (FOR LIQUID) 40 MEQ PO (09:33)
[2024-10-19] MEDS: IRON SUCROSE COMPLEX 100 MG in SODIUM CHLORIDE 0.9% IV 50 ML 220 MG IVPB (09:33)
[2024-10-19] MEDS: HYDROcodone/acetaminophen (*CRX) 5-325 MG TABLET 1 TAB PO (09:34)
--- OUTSIDE RECORDS SUMMARY | 2024-10-22 00:17 | XMS_ITS | Encounter Summary ---
Author Organization [facility] Address [address] [place] [address] Phone Care Team Providers Care Disability Rater Name Role Phone Denis Platt MD Primary Care Provider [phone] Reason for Visit * Auth/Cert Specialty Diagnoses / Procedures Referred By Lyndsey farmer Referred To Contact Referral ID Status Reason Start Date Expiration Date Visits Re quested Visits Authorized [id number] 1 1 Encounter Details Date Type Department Care Team (Late st Contact Info) Description 04/10/2022 Home Care Visit [facility] [address] [place] [address] Cyn Roblero, PT [place] TELEPHONE ENCOUNTER Social History Tobacco Use Types Packs/Day Years Used Date Smoking Tobacco: Former Cigarettes Q uit: 1970 Smokeless Tobacco: Never Alcohol Use Standard Drinks/Week Comments Not Currently 0 (1 standard drink = 0.6 oz pur e alcohol) Comments Unknown Sex and Gender Information Value Date Recorded Sex Assigned at Not on file Legal Sex Female 11:12 AM CDT Gender Identity Not on file Sexual Orientation Not on file COVID-19 Exposure Response Date Recorded In the last 10 days, have yo u been in contact with someone who was confirmed or suspected to have Coronavirus/COVID-19? No / Unsure 04/07/2022 5:12 AM CDT documented as of this encounter Plan of Treatment Not on file documented as of this encounter Visit Diagnoses Not on filedocumented in this encounter Care Teams Disability Rater Relationship Specialty Start Date End Date Denis Platt MD [address] [phone] PCP - General Pediatrics 04/08/22 02/15/24 documented as of this encounter
--- OUTSIDE RECORDS SUMMARY | 2024-10-22 00:17 | XMS_ITS | Encounter Summary ---
Author Organization [facility] Address [address] [place] [address] Phone Care Team Providers Care Flight Control Tower Operator Name Role Phone Denis Platt MD Primary Care Provider [phone] Reason for Visit * Auth/Cert Specialty Diagnoses / Procedures Referred By Lyndsey farmer Referred To Contact Referral ID Status Reason Start Date Expiration Date Visits Re quested Visits Authorized [id number] 1 1 Encounter Details Date Type Department Care Team (Late st Contact Info) Description 04/20/2022 1:00 PM CDT Home Care Visit [facility] [address] [place] [address] Verona Restrepo, DENTAL LABORATORY MANAGER PT - HOME VISIT Social History Tobacco Use Types Packs/Day Years [...] AM CDT documented as of this encounter Last Filed Vital Signs Vital Sign Reading Time Taken Comments Blood Pressure 122/58 04/20/2022 1:38 PM CDT Pulse 68 04/20/2022 1:38 PM CDT Temperature 35.9 ??C (96.6 ??F) 04/20/2022 1:38 PM CD T Respiratory Rate 18 04/20/2022 1:38 PM CDT Oxygen Saturation 97% 04/20/2022 1:38 PM CDT room air Inhaled Oxygen Concentration - - Weight - - Height - - Body Mass Index - - documented in this encounter Plan of Treatment Not on file documented as of this encounter Visit Diagnoses Not on filedocumented in this encounter Home Health Visit - Care Plan Visit Details Visit Type -PT - HOME VISIT Discipline -Physical Therapy Problems Problem Description Start Date Status Goals Interve ntions PHYSICAL THERAPY GENERAL (O) Disciplines: Physical Therapy Physical Therapy General Order 04/09/2022 Active 1 goal linked to scheduled/document ed intervention 1 goal intervention scheduled/document ed in this visit PT COMPREHENSIVE Disciplines: Physical Therapy 04/09/2022 Active 6 goals linked to scheduled/document ed interventions 6 goal interventions scheduled/document ed in this visit THERAPY INCISION/WOUN D CARE Disciplines: Physical Therapy PT Incision 04/09/2022 Active 1 goal linked to scheduled/document ed intervention 1 goal intervention scheduled/document ed in this visit Goals Goal Associated Problem Outcome Goal Met? 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 Target Date: by 05/02/22 (date) PHYSICAL THERAPY GENERAL (O) No PT Precautions Description: Short Term Goal: Patient will demonstrate adherence to anterior hip precautions - no excessive hip extension, no excessive external rotation in order to promote healing and reduce risk of injury. To be met by 05/02/22. PT COMPREHENSIVE No PT Stairs and Home Exit Description: Short Term Goal: Patient will be independent on 4-5 steps with use of 1 rail and cane while maintaining ordered precautions to allow for ability to enter/exit home safely . To be met by 05/02/22. PT COMPREHENSIVE No PT Bed Mobility Description: Short Term Goal Patient will be independent with supine to sit, sit to supine and repositioning in order to increase independence with functional mobility. To be met by 05/02/22. PT COMPREHENSIVE No PT Ambulation Description: Short Term Goal: Patient will ambulate Independently 150 feet with use of Straight cane, over even surfaces and uneven surfaces with the following improved gait characteristics good step length, good balance in order to safely leave home for appointments/work. To be met by 05/02/22. PT COMPREHENSIVE Ongoing (see interventions/no benigno) No PT Transfers Description: Short Term Goal: Patient will perform sit to stand/pivot transfers independently with use of device as needed ; in order to safely negotiate home. To be met by 05/02/22. PT COMPREHENSIVE No PT HEP/Strength and Exercise Description: HEP Goals: Short Term Goal: Patient will independently with initial HEP of ROM, strengthening, balance training and conditioning in order to progress strength and functional mobility. To be met by 05/02/22. PT COMPREHENSIVE No Therapy Incision/Wound Care Description: 1. Patient/Caregiver will verbalize understanding of wound treatment regimen, and signs and symptoms to report. 2. Expected wound outcome/goal: Closure 3. Target Date: 05/25/22 THERAPY INCISION/WOUND CARE No Interventions Intervention Associated Problem/Goal Status Variance Visit Notes Physical Therapy General (Order Only) Description: Admission Certification: 86 y.o. female admitted to [facility] for PT. Estimation of how long skilled services will be required 60 days. Face to Face encounter occurred on 04/07/[address] Her[address]nott. Dr. Herber Knott contacted and agrees with plan of care. Clinical findings: 86 year old female inpatient 04/07-04/08/22 for L total hip replacement, anterior approach by Dr. Herber Knott. She lives alone and has 4-5 stairs to enter. Her daughters have been staying with her since surgery. She is a very active woman, states that she hopes to return to work in the next 2 weeks. She works for a [employer], sedentary work. At PT eval patient answers the door without her walker, she was instructed to use the walker at all times for the first 2 weeks. She also was not wearing MARYANN hose, stating she didn't have them. She was also not interested in getting them stating that they would be too hard for her to get on and off. PT educated patient on DVT signs/symptoms. Sandoval's sign negative. Incision is covered with a non removeable dressing (to be removed day 5 post op). Patient is min assist with bed mobility (did show patient how to lift L LE with gait belt, however she wasn't interested in performing this way), CGA with transfers. She ambulates with wheeled walker as instructed, step to gait pattern with decreased single limb stance time on her L LE. Patient was instructed on stairs with one rail and cane on this date descending with the L LE first and ascending with the R LE first, min assist for safety. R hip strength is 3-/5 with pain with all motions of the hip. Patient was instructed in Dr. Knott's anterior hip precautions on this date: 1. NO hip extension beyond 10 degrees (kicking backwards) 2. NO external rotation greater than 30 degrees (Toes facing outwards) 3. No Straight Leg Raises for 4-6 weeks (Lifting the Right leg by itself) 4. No active hip flexion beyond 90 degrees for 6 weeks PT so see patient short term for strengthening, balance, gait safety, stair safety and bed mobility/transfers. Physical Therapy Focus: strengthening, balance, gait safety, stair safety and bed mobility/transfers. Occupational Therapy to evaluate and treat for: not ordered, patient declined the need Speech Therapy to evaluate and treat for: not ordered Skilled Nurse to evaluate for: not ordered Social Work to evaluate for: not ordered, patient declined need for ACP Replanting Machine Crew to provide: not ordered Past Medical History: A-fib, PAD, hypertension, aortic stenosis, GERD, R knee torn cartilage Other contributing issues: not willing to do MD recommendation with MARYANN abdi/bosotn Clinician to instruct patient/ caregiver on signs and symptoms to report, emergency measures, safety measures, diet, and activity. Instruct on medication regime, and patient management. Perform physical assessment including vital signs and pain assessment. Perform pulse oximetry PRN for intermittent assessment and/ or respiratory distress. Homebound Criteria 1- Patient has illness/injury: R total hip replacement , and needs/has: unsteady gait/frequent falls/poor balance Homebound Criteria 2- Inability to leave the home and leaving the home requires a taxing and considerable effort due to: leaving home exacerbates symptoms pain and fatigue Patient has the following structural impairments: Eye, ear, and related structures , Structures of the cardiovascular system and Structures related to movement Patient has the following functional impairments: Sensory functions and pain, Functions of the cardiovascular system and Functions of the skin and related structures The patient's activity limitation affects the following: Mobility, Self-care and Domestic life Telehealth contact via video or phone by any discipline as needed to assess/monitor condition related to current diagnoses, to assist with achieving identified goals. Problem:PHYSICAL THERAPY GENERAL (O) Goal:Physical Therapy General Scheduled with variance Not addressed at this visit PT Precautions Description: Educate patient on indicated precautions. Problem:PT COMPREHENSIVE Goal:PT Precautions Completed Instructed patient on Anterior hip precautions - no excessive hip extension, no excessive external rotation. To facilitate ability to maintain precautions while performing bed mobility. Skill provided Safety instruction. Evaluate compliance: compliant Instruction provided to Patient. Response verbalize understanding and return demonstration. PT Stairs and Home Exit Description: Instruct in proper safety and technique for stair training or home exit as directed in the goal. Problem:PT COMPREHENSIVE Goal:PT Stairs and Home Exit Completed Provided skilled training on 4 steps to back foyer then 1 step to outdoors, 1 step in/out of garage with use of cane with independence. Skills provided: Verbal cues consisting of pt to take her time and proper sequencing for descending LLE/ascending RLE Tolerance to activity good. Instruction provided to Patient. Response verbalize understanding, return demonstration and ongoing. Progress toward goal: goal partially met at [facility] today PT Bed Mobility Description: Instruct on bed mobility techniques and safety. Equipment as needed. Problem:PT COMPREHENSIVE Goal:PT Bed Mobility Completed Bed mobility training consisting of: supine to sit and sit to supine. Assistance required: be independent With use of No assistive device. Skills provided: Verbal cues consisting of scooting back onto bed more before lifting legs into bed. Tolerance to activity: good Instruction provided to Patient. Response verbalize understanding and return demonstration. PT Ambulation Description: Provide gait training for increased safety and efficiency. Progress per patient tolerance and safety. Problem:PT COMPREHENSIVE Goal:PT Ambulation Completed Patient ambulated Independently 150 feet with use of 4 wheel walker. WBAT Left lower extremity over even surfaces with the following gait characteristics fast alfred with reciprical pattern. No limp. No LOB noted. Pt instructed in use and proper sequencing of st cane in R hand for 100ft independently to/from detached garage with no LOB on grassy surface noted. Pt again using no AD up arrival and fair/poor compliance using the walker when therapy not present. Pt to see orthopedic MD tomorrow for follow up and instructed pt to continue using walker until then/further instruction from MD Skills provided: Verbal cues consisting of slow down, keep head up. Tolerance to activity Increased gait distance. Instruction provided to Patient. Response verbalize understanding, return demonstration and ongoing. PT Transfers Description: Instruct in proper safety and transfer technique. Problem:PT COMPREHENSIVE Goal:PT Transfers Completed Transfer training provided this date Sit to/from stand . Level of support required for safety independently. Assistive devices used: Front wheeled walker, no AD Skill provided Proper hand placement for BUE reach back and sit down slowly Tolerance to activity fair Instruction provided to Patient. Response verbalize understanding, return demonstration and ongoing. PT HEP/Strength and Exercise Description: Instruct on therapeutic exercises and home exercise program. Progress as tolerated. Problem:PT COMPREHENSIVE Goal:PT HEP/Strength and Exercise Completed Therapeutic exercise instruction this date Pt was instructed in and performed supine ex's to BLE x 15-20 reps: ankle pumps, quad sets, glut sets, heels slides, hip abd/add, saq. Pt was instructed in and performed standing ex's x 15-20 reps to LLE: B heel raises, B toe raises, partial hip flexion, hip abd/add, hamstring curls and partial mini squats. Pt denies any increase in pain in L hip following ex's. Skills provided: Initial instruction in technique and increase in reps this date Home Exercise Program issued continue LE HEP up to 20 reps Instruction provided to Patient. Response verbalize understanding, return demonstration and ongoing. Therapy Incision Care (O) Description: Incision care to be performed by therapist, patient and caregiver. Frequency: daily and PRN. Remove old dressing on day 5 post op. Cleanse incision with: wound cleanser, leave steri strips in place Cover incision with: island dressing. Secure with tape. Problem:THERAPY INCISION/WOUND CARE Goal:Therapy Incision/Wound Care Completed Wound care performed by therapist. Looked at incision with no drainage noted, good color. no odor. Pt planning to take shower this evening and will place new bandage. documented in this encounter Care Teams Flight Control Tower Operator Relationship Specialty Start Date End Date Denis Platt MD [address] [place] [address] PCP - General Pediatrics 04/08/22 02/15/24 documented as of this encounter
--- OUTSIDE RECORDS SUMMARY | 2024-10-22 00:17 | XMS_ITS | Clinical Summary ---
Author Organization [facility] Address [address] [place] [address] Phone Care Team Providers Care Aircraft Motor Mechanic Name Role Phone Gideon Campbell MD Primary Care Provider [phone] Allergies No known active allergies Medications warfarin (COUMADIN) 4 MG Tablet Take 4 mg by mouth daily. . Active losartan (COZAAR) 100 MG Tablet Take 100 mg by mouth daily. Active hydroCHLOROthiaz elena 25 MG Tablet Take 25 mg by mouth daily. Active HYDROcodone-acet aminophen (NORCO) 5-325 MG TabletIndication s:Moderate to Moderately Severe Pain Take 1-2 Tablets by mouth every 4 hours as needed for Moderate or more severe pain. Indications: Moderate to Moderately Severe Pain 60 Tablet 2 Active ondansetron (ZOFRAN-ODT) 4 MG TABLET DISPERSIBLE Take 1 Tablet by mouth every 6 hours as needed for Nausea - 1st line. 20 Tablet 1 2 Active scopolamine (TRANSDERM-SCOP) 1 MG/3DAYS PATCH 72 HR 1 Patch by Transdermal route every 72 hours. 1.5 mg patch delivers 1 mg over 3 days 4 Patch 2 Active ferrous sulfate 325 (65 Fe) MG Tablet Take 1 Tablet by mouth daily. 30 Tablet 2 Active senna-docusate (SENOKOT S) 8.6-50 MG Tablet Take 2 Tablets by mouth 2 times daily. 60 Tablet 1 2 Active ascorbic acid 500 MG Tablet Take 1 Tablet by mouth daily. 30 Tablet 2 Active Family History Medical History Relation Name Comments Cancer Father prostate No Known Problems Mother Relation Name Status Comments Father Mother Social History Tobacco Use Types Packs/Day Years [...] on file Sexual Orientation Not on file Last Filed Vital Signs Vital Sign Reading Time Taken Comments Blood Pressure 152/70 04/22/2022 12:08 PM CDT Pulse 70 04/22/2022 12:08 PM CDT Temperature 35.6 ??C (96 ??F) 04/22/2022 12:08 PM CDT Respiratory Rate 18 04/22/2022 12:08 PM CDT Oxygen Saturation 99% 04/22/2022 12:08 PM CDT Inhaled Oxygen Concentration - - Weight 81.6 kg (180 lb) 04/09/2022 1:56 PM CDT Height 162.6 cm (5' 4 ) 04/09/2022 1:56 PM CDT Body Mass Index 30.9 04/09/2022 1:56 PM CDT Plan of Treatment Health Maintenance Due Date Last Done Comments DEXA Bone Density 1935 Hepatitis C Virus (HCV) Screening 1935 TdaP Immunization 1935 Pneumococcal Immunization (50+ years) (1 of 1 - PCV) 1987 Zoster Immunization (1 of 2) 1987 Respiratory Syncytial Virus (RSV) Immunization (Adult) (1 - 1-dose 75+ series) 2012 Influenza Immunization (#1) 2024 SARS-COV-2 Immunization ( season) 2024 03/16/2022, 08/13/2021, 12/06/2020, Additional history exists Hepatitis B Immunization Aged Out No longer eligible based on patient's age to complete this topic Meningococcal Immunization (ACWY) Aged Out No longer eligible based on patient's age to complete this topic Rotavirus Immunization Aged Out No lo nger eligible based on patient's age to complete this topic Medical Devices Implanted Type Area Manager Of Patient Device Identifier Shelf Expiration Date Model / Serial / Lot Shell Actb 54mm Hip Sector Gription [place] - [id number] Implanted:Qty: 1 on 04/07/2022 by Herber Knott MD at [facility] IMPLANT Left: Hip [employer] 02/08/2032 [id number] / [id number] / [id number] Liner Actb Altrx [place] Neutral 54mm 36mm Hip - [id number] Implanted:Qty: 1 on 04/07/2022 by Herber Knott MD at [facility] IMPLANT Left: Hip [employer] 08/10/2026 [id number] / [id number] / [id number] Screw Bone 6.5mm 35mm [place] Dome 4 Point Cut Flute Hip Actb Canc Slftp Hex Head Blunt Tip - [id number] Implanted:Qty: 1 on 04/07/2022 by Herber Knott MD at [facility] IMPLANT Left: Hip [employer] 09/09/2031 [id number] / [id number] / [id number] Head Fem 1.5mm /14 Taper 36mm Hip Cementless Biolox Delta Articul/Warren - [id number] Implanted:Qty: 1 on 04/07/2022 by Herber Knott MD at [facility] IMPLANT Left: Hip [employer] 02/07/2027 [id number] / [id number] / [id number] Depuy Femoral Stem / Taper Actis Duofix Hip Prothesis Cementless, High Vollar Implanted:Qty: 1 on 04/07/2022 by Herber Knott MD at [facility] Left: Hip [employer] 12/09/2031 / / [id number] Insurance [facility] on file Advance Directives * Full Code (Latest Code Status on File) Date Activated Date Inactivated Comments 04/17/2022 9:30 AM Care Teams Aircraft Motor Mechanic Relationship Specialty Start Date End Date Gideon Campbell MD [address] [place] [address] [place] [address] PCP - General Clinical Phlebotomist 02/16/24
--- OUTSIDE RECORDS SUMMARY | 2024-10-22 00:17 | XMS_ITS | Encounter Summary ---
Author Organization [facility] Address [address] [place] [address] Phone Care Team Providers Care Memory Care Program Director Name Role Phone Denis Platt MD Primary Care Provider [phone] Reason for Visit * Auth/Cert Specialty Diagnoses / Procedures Referred By Lyndsey farmer Referred To Contact Referral ID Status Reason Start Date Expiration Date Visits Re quested Visits Authorized [id number] 1 1 Encounter Details Date Type Department Care Team (Late st Contact Info) Description 04/10/2022 [facility] [address] [place] [address] Cyn Roblero, PT [place] CASE COMMUNICATION Social History Tobacco Use Types Packs/Day Years [...] on filedocumented in this encounter Care Teams Memory Care Program Director Relationship Specialty Start Date End Date Denis Platt MD [address] [id number] PCP - General Pediatrics 04/08/22 02/15/24 documented as of this encounter
--- OUTSIDE RECORDS SUMMARY | 2024-10-22 00:17 | XMS_ITS | Encounter Summary ---
Author Organization [facility] Address [address] [place] [address] Phone Care Team Providers Care Process Manufacturing Engineer Name Role Phone Denis Platt MD Primary Care Provider [phone] Reason for Visit * Auth/Cert Specialty Diagnoses / Procedures Referred By Lyndsey farmer Referred To Contact Referral ID Status Reason Start Date Expiration Date Visits Re quested Visits Authorized [id number] 1 1 Encounter Details Date Type Department Care Team (Late st Contact Info) Description 04/16/2022 11:00 AM CDT Home Care Visit [facility] [address] [place] [address] Verona Restrepo, GOLF COURSE MECHANIC PT - HOME VISIT Social History Tobacco [...] Sign Reading Time Taken Comments Blood Pressure 132/60 04/16/2022 11:08 AM CDT Pulse 68 04/16/2022 11:08 AM CDT Temperature 36.1 ??C (96.9 ??F) 04/16/2022 11:08 AM C DT Respiratory Rate 18 04/16/2022 11:08 AM CDT Oxygen Saturation 96% 04/16/2022 11:08 AM CDT room air Inhaled Oxygen Concentration - [...] goal interventions scheduled/document ed in this visit Goals Goal Associated Problem Outcome Goal Met? 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 Target Date: by 05/02/22 (date) PHYSICAL THERAPY GENERAL (O) No PT Edema Management Description: Short Term Goal: Patient will demonstrate consistent implementation of therapeutic edema management principles including: rest, elevation, use of ice/cold as prescribed , ankle pumps, compression and therapeutic exercise as indicated in order to reduce edema. To be met by 05/02/22. PT COMPREHENSIVE [...] be met by 05/02/22. PT COMPREHENSIVE No Interventions Intervention Associated Problem/Goal Status Variance Visit Notes Physical Therapy General (Order Only) Description: Admission Certification: 86 y.o. female admitted to [facility] for PT. Estimation of [...] next 2 weeks. She works for a local [employer], sedentary work. At PT eval patient answers [...] not ordered, patient declined need for ACP Vice President Of Marketing to provide: not ordered Past Medical History: A-fib, PAD, hypertension, aortic stenosis, GERD, R knee torn cartilage Other contributing issues: not willing to do MD recommendation with MARYANN abdi/walker Clinician to instruct patient/ caregiver on signs [...] variance Not addressed at this visit PT Edema Management Description: Instruct on edema management techniques. If using ice/cold, utilize the following parameters: location left hip; duration 10-15 mintues; frequency 3-5X/day. Monitor skin integrity. Problem:PT COMPREHENSIVE Goal:PT Edema Management Completed Edema management performed reveiwed ice/elevation to L hip for pain and swelling control. Pt states that she is having swelling during the day but resolves with ice/elevation. Discussed iwth pt on keeping her L leg elevated more during the day. Instructed on Edema management techniques ice/elevation as needed during day and after therapy/exercise Evaluate compliance: compliant Instruction provided to Patient. Response verbalize understanding, return demonstration and ongoing. PT Stairs and Home Exit Description: Instruct in proper safety and technique for stair training or home exit as directed in the goal. Problem:PT COMPREHENSIVE Goal:PT Stairs and Home Exit Not addressed at this visit no outdoors steps today due to rainy weather PT Bed Mobility Description: Instruct on bed mobility techniques and safety. Equipment as needed. Problem:PT COMPREHENSIVE Goal:PT Bed Mobility Completed Bed mobility training consisting of: supine to sit and sit to supine. Assistance required: be independent With use of No assistive device. Pt using her UE's to assist leg into bed. Pt reports increase in L hip discomfort when getting in/out of bed. Skills provided: Verbal cues consisting of scooting farther back onto bed before lifting LE into bed. Tolerance to activity: fair Instruction provided to Patient. Response verbalize understanding, return demonstration and ongoing. PT Ambulation Description: Provide gait training for increased safety and efficiency. Progress per patient tolerance and safety. Problem:PT COMPREHENSIVE Goal:PT Ambulation Completed Patient ambulated With supervision/indep 200 feet with use of 2 wheel walker. WBAT Left lower extremity over even surfaces with the following gait characteristics fast alfred with pt at times keeping back walker legs up from floor. Pt using no AD again today upon arrival and discussed with pt on MD wanting walker use for first 2 weeks after surgery. Pt voices no real c/o pain just soreness with mild fatigue after gait. Skills provided: Verbal cues consisting of slow down, improve posture and keep walker legs on floor (recommended tennis ball on walker legs). Tolerance to activity Increased gait distance. Instruction provided to Patient. Response verbalize understanding, return demonstration and ongoing. PT Transfers Description: Instruct in proper safety and transfer technique. Problem:PT COMPREHENSIVE Goal:PT Transfers Completed Transfer training provided this date Sit to/from stand . Level of support required for safety independently. Assistive devices used: Front wheeled walker Skill provided Initial instruction in safety and technique with rising slowly Tolerance to activity fair Instruction provided to Patient. Response verbalize understanding, return demonstration and ongoing. PT HEP/Strength and Exercise Description: Instruct on therapeutic exercises and home exercise program. Progress as tolerated. Problem:PT COMPREHENSIVE Goal:PT HEP/Strength and Exercise Completed Therapeutic exercise instruction this date Pt was instructed in and performed supine ex's to BLE x 15 reps: ankle pumps, quad sets, glut sets, heels slides, hip abd/add, saq. Pt was instructed in and performed standing ex's x 15 reps to LLE: B heel raises, B toe raises, partial hip flexion, hip abd/add and hamstring curls. In sitting 15 reps heel/toe raises, attempt 3 reps of LAQ however pt reports increase in L hip pain therefore had pt stop. Skills provided: Initial instruction in technique and increase reps as tolerated Home Exercise Program issued continue LE HEP in supine position, use walker for all gait Instruction provided to Patient. Response verbalize understanding, return demonstration and ongoing. documented in this encounter Care Teams Process Manufacturing Engineer Relationship Specialty Start Date End Date Denis Platt MD [address] [place] [address] PCP - General Pediatrics 04/08/22 02/15/24 documented as of this encounter
--- OUTSIDE RECORDS SUMMARY | 2024-10-22 00:17 | XMS_ITS | Encounter Summary ---
Author Organization [facility] Address [address] [place] [address] Phone Care Team Providers Care Shoe Patternmaker Name Role Phone Denis Platt MD Primary Care Provider [phone]- [phone] Reason for Visit * Auth/Cert Specialty Diagnoses / Procedures Referred By Lyndsey farmer Referred To Contact Referral ID Status Reason Start Date Expiration Date Visits Re quested Visits Authorized [id number] 1 1 Encounter Details Date Type Department Care Team (Late st Contact Info) Description 04/13/2022 Home Care [facility] [address] [place] [address] Lilia Menendez, RN [place] CASE COMMUNICATION Social History Tobacco Use [...] on filedocumented in this encounter Care Teams Shoe Patternmaker Relationship Specialty Start Date End Date Denis Platt MD [address] [place] [address] PCP - General Pediatrics 04/08/22 02/15/24 documented as of this encounter
--- OUTSIDE RECORDS SUMMARY | 2024-10-22 00:17 | XMS_ITS | Encounter Summary ---
Author Organization [facility] Address [address] [place] [address] Phone Care Team Providers Care Gas Refrigerator Servicer Name Role Phone Denis Platt MD Primary Care Provider [phone]- [phone] Reason for Visit * Auth/Cert Specialty Diagnoses / Procedures Referred By Lyndsey farmer Referred To Contact Referral ID Status Reason Start Date Expiration Date Visits Re quested Visits Authorized [id number] 1 1 Encounter Details Date Type Department Care Team (Late st Contact Info) Description 04/14/2022 1:00 PM CDT Home Care Visit [facility] [address] [place] [address] Verona Restrepo, VACCINATOR PT - HOME VISIT Social History Tobacco [...] Sign Reading Time Taken Comments Blood Pressure 142/62 04/14/2022 1:07 PM CDT Pulse 60 04/14/2022 1:07 PM CDT Temperature 36.1 ??C (96.9 ??F) 04/14/2022 1:07 PM CD T Respiratory Rate 18 04/14/2022 1:07 PM CDT Oxygen Saturation 96% 04/14/2022 1:07 PM CDT Inhaled Oxygen Concentration - - Weight - [...] goals the following were identified: 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 Target Date: [...] next 2 weeks. She works for a [employer], sedentary work. At PT eval patient answers [...] not ordered, patient declined need for ACP Glass Blower to provide: not ordered Past Medical History: A-fib, PAD, hypertension, aortic stenosis, GERD, R knee torn cartilage Other contributing issues: not willing to do MD recommendation with MARYANN abdi/[place] Clinician to instruct patient/ caregiver on signs [...] facilitate ability to maintain precautions while performing ADL, gait and bed mobility. Skill provided Initial instruction in safety and technique. Evaluate compliance: compliant Instruction provided to Patient. Response verbalize understanding. PT Stairs and Home Exit Description: Instruct in proper safety and technique for stair training or home exit as directed in the goal. Problem:PT COMPREHENSIVE Goal:PT Stairs and Home Exit Completed Provided skilled training on 4 steps at back entry with use of 1 rail and cane with supervision. Skills provided: Verbal cues consisting of for proper sequencing- leading down with LLE, up with RLE Tolerance to activity fair. Instruction provided to Patient. Response verbalize understanding, return demonstration and ongoing. PT Bed Mobility Description: Instruct on bed mobility techniques and safety. Equipment as needed. Problem:PT COMPREHENSIVE Goal:PT Bed Mobility Completed Bed mobility training consisting of: supine to sit and sit to supine. Assistance required: require supervision With use of No assistive device. Skills provided: Verbal cues consisting of assisting L LE in/out of bed using UE's or cane as a electoral officer. Tolerance to activity: fair Instruction provided to Patient. Response verbalize understanding, return demonstration and ongoing. PT Ambulation Description: Provide gait training for increased safety and efficiency. Progress per patient tolerance and safety. Problem:PT COMPREHENSIVE Goal:PT Ambulation Completed Patient ambulated With supervision/indep 150 feet with use of 2 wheel walker. WBAT Left lower extremity over even surfaces with the following gait characteristics improved step thru pattern with very little limp. Pt answered door with no AD. Discussed with pt on using her w/walker for at least first 2 weeks per MD. Skills provided: Verbal cues consisting of step thru pattern. Tolerance to activity Increased gait distance. Instruction provided to Patient. Response verbalize understanding, return demonstration and ongoing. PT Transfers Description: Instruct in proper safety and transfer technique. Problem:PT COMPREHENSIVE Goal:PT Transfers Completed Transfer training provided this date Sit to/from stand from couch and EOB . Level of support required for safety independently. Assistive devices used: Front wheeled walker Skill provided Initial instruction in safety and technique maintaining ant hip precuations Tolerance to activity good Instruction provided to Patient. Response verbalize understanding, return demonstration and ongoing. PT HEP/Strength and Exercise Description: Instruct on therapeutic exercises and home exercise program. Progress as tolerated. Problem:PT COMPREHENSIVE Goal:PT HEP/Strength and Exercise Completed Therapeutic exercise instruction this date Pt was instructed in and performed standing ex's x 10 reps: B heel raises,B toe raises, partial L hip flexion, L hip abd/add, L hamstring curls.Pt was instructed in and performed supine ex's to BLE x 10 reps: ankle pumps, quad sets, glut sets, heels slides, hip abd/add, saq. Skills provided: Initial instruction in technique thru hip precaution range Home Exercise Program issued increase reps to 20 for LE HEP Instruction provided to Patient. Response verbalize understanding, [...] Incision/Wound Care Completed Wound care performed by therapist to L hip Removed old dressing. Cleansed with: wound cleanser. Covered with: island dressing. Secured with na. Patient tolerated good. Incision good color , no siginificant drainage documented in this encounter Care Teams Gas Refrigerator Servicer Relationship Specialty Start Date End Date Denis Platt MD [address] [place] [address] PCP - General Pediatrics 04/08/22 02/15/24 documented as of this encounter
--- OUTSIDE RECORDS SUMMARY | 2024-10-22 00:17 | XMS_ITS | Encounter Summary ---
Author Organization [facility] Address [address] [place] [address] Phone Care Team Providers Care Aircraft Metalsmith Name Role Phone Denis Platt MD Primary Care Provider [phone]- [phone] Reason for Visit * Auth/Cert Specialty Diagnoses / Procedures Referred By Lyndsey farmer Referred To Contact Referral ID Status Reason Start Date Expiration Date Visits Re quested Visits Authorized [id number] 1 1 Encounter Details Date Type Department Care Team (Latest Contact Info) Description 04/22/2022 12:00 PM CDT Home Care Visit [facility] [address] [place] [address] Cyn Roblero, PT [place] PT - OASIS DISCHARGE Social History Tobacco Use Types Packs/Day Years [...] Plan Visit Details Visit Type -PT - OASIS DISCH ARGE Discipline -Physical Therapy Problems Problem Description Start Date Status Goals Interve ntions THERAPY DISEASE MANAGEMENT (O) Disciplines: Physical Therapy 04/09/2022 Active - 1 problem intervention scheduled/documen maryann in this visit PAIN-MANAGEMENT /EDUCATION Disciplines: Skilled Clinicians 04/09/2022 Active 1 goal linked to scheduled/document ed intervention PT DISCHARGE/REASS ESSMENT Disciplines: Physical Therapy PT Discharge 04/09/2022 Active - 1 problem intervention scheduled/documen maryann in this visit PHYSICAL THERAPY GENERAL (O) Disciplines: Physical Therapy Physical Therapy General Order 04/09/2022 Active 1 goal linked to scheduled/document ed intervention 1 goal intervention scheduled/documen maryann in this visit FALL PREVENTION (O) Disciplines: SN, PT, OT, LICENSED LAND SURVEYOR, HCA, DOOR REPAIRMAN, RT 04/09/2022 Active 1 goal linked to scheduled/document ed intervention TELEHEALTH/VIRT UAL CONTACT Disciplines: All Home Care HC Telehealth/Virtu al Contact 04/09/2022 Active 1 goal linked to scheduled/document ed intervention PT COMPREHENSIVE Disciplines: Physical Therapy 04/09/2022 Active 8 goals linked to scheduled/document ed interventions 1 goal intervention scheduled/documen maryann in this visit THERAPY INCISION/WOUND CARE Disciplines: Physical Therapy PT Incision 04/09/2022 Active 1 goal linked to scheduled/document ed intervention Goals Goal Associated Problem Outcome Goal Met? Visit Notes Pain Management/Education Description: Shared goal applicable to all disciplines with visit frequency order. Patient's pain level will remain at an acceptable level of 2/10 or lower with current pain medications/intervention s. 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 Target Date: by 05/02/22 (date) PHYSICAL THERAPY GENERAL (O) Outcome Achieved Yes Fall Prevention Description: Shared goal applicable to all disciplines with a visit frequency order. Patient/ Caregiver will verbalize understanding of identified fall risk based on [facility]-10 Fall Risk assessment and methods to prevent falls. Target date: by 05/02/22 (date) FALL PREVENTION (O) Outcome Achieved Yes Telehealth/Virtual Contact TELEHEALTH/VIRTUAL CONTACT Outcome Achieved Yes PT Balance Description: Short Term Goal: Patient will show improved dynamic standing balance as demonstrated by improved Tinetti score from not to in order to Improve functional mobility. To be met by 05/02/22. PT COMPREHENSIVE Outcome Achieved Yes PT Precautions Description: Short Term Goal: Patient will demonstrate adherence to anterior hip precautions - no excessive hip extension, no excessive external rotation in order to promote healing and reduce risk of injury. To be met by 05/02/22. PT COMPREHENSIVE Outcome Achieved Yes PT Edema Management Description: Short Term Goal: Patient will demonstrate consistent implementation of therapeutic edema management principles including: rest, elevation, use of ice/cold as prescribed , ankle pumps, compression and therapeutic exercise as indicated in order to reduce edema. To be met by 05/02/22. PT COMPREHENSIVE Outcome Achieved Yes PT Stairs and Home Exit Description: Short Term Goal: Patient will be independent on 4-5 steps with use of 1 rail and cane while maintaining ordered precautions to allow for ability to enter/exit home safely . To be met by 05/02/22. PT COMPREHENSIVE Outcome Achieved Yes PT Bed Mobility Description: Short Term Goal Patient will be independent with supine to sit, sit to supine and repositioning in order to increase independence with functional mobility. To be met by 05/02/22. PT COMPREHENSIVE Outcome Achieved Yes PT Ambulation Description: Short Term Goal: Patient will ambulate Independently 150 feet with use of Straight cane, over even surfaces and uneven surfaces with the following improved gait characteristics good step length, good balance in order to safely leave home for appointments/work. To be met by 05/02/22. PT COMPREHENSIVE Outcome Achieved Yes PT Transfers Description: Short Term Goal: Patient will perform sit to stand/pivot transfers independently with use of device as needed ; in order to safely negotiate home. To be met by 05/02/22. PT COMPREHENSIVE Outcome Achieved Yes PT HEP/Strength and Exercise Description: HEP Goals: Short Term Goal: Patient will independently with initial HEP of ROM, strengthening, balance training and conditioning in order to progress strength and functional mobility. To be met by 05/02/22. PT COMPREHENSIVE Outcome Achieved Yes Therapy Incision/Wound Care Description: 1. Patient/Caregiver will verbalize understanding of wound treatment regimen, and signs and symptoms to report. 2. Expected wound outcome/goal: Closure 3. Target Date: 05/25/22 THERAPY INCISION/WOUND CARE Therapy: Goal partially met No Interventions Intervention Associated Problem/Goal Status Variance Visit Notes Therapy Pressure Injury Prevention (O) Description: Instruct on pressure injury prevention techniques and safety. Problem:THERAPY DISEASE MANAGEMENT (O) Completed Patient performed pressure injury prevention techniques of positioning, frequent standing with adaptive equipment of none with independence and good activity tolerance. Caregiver training provided na. Skill provided to improve this function consisted of transfers/mobility Compliance of follow through is good. Progress toward goal: met SSKIN Bundle interventions provided: N/A PT Discharge Problem:PT DISCHARGE/REASSESSMEN T Completed Medication list reviewed and left in home. Medicare notice of discharge signed on 04/22/22. Discharge Instructions provided to Patient. Response verbalize understanding. Physical Therapy General (Order Only) Description: Admission [...] 2 weeks. She works for a local [employer], sedentary work. At PT eval patient answers [...] not ordered, patient declined need for ACP Manager City to provide: not ordered Past Medical History: [...] Problem:PHYSICAL THERAPY GENERAL (O) Goal:Physical Therapy General Completed PT Ambulation Description: Provide gait training for increased safety and efficiency. Progress per patient tolerance and safety. Problem:PT COMPREHENSIVE Goal:PT Ambulation Completed Patient ambulated Independently 150 feet with use of no device and 150 feet with cane independenlty. Recommend cane for outdoors for safety. Skills provided: Verbal cues consisting of slow down, keep head up. Tolerance to activity Increased gait distance. Instruction provided to Patient. Response verbalize understanding, return demonstration and ongoing. Goal met documented in this encounter Care Teams Aircraft Metalsmith Relationship Specialty Start Date End Date Denis Platt MD [address] [place] [address] PCP - General Pediatrics 04/08/22 02/15/24 documented as of this encounter
--- OUTSIDE RECORDS SUMMARY | 2024-10-22 00:18 | XMS_ITS | Encounter Summary ---
Author Organization [facility] Address [address] [place] [address] Phone Care Team Providers Care Tooth Cutter Spur Name Role Phone Provider, Not On File Primary Care Provider Unav ailable Reason for Visit * Auth/Cert Specialty Diagnoses / Procedures Referred By Lyndsey farmer Referred To Contact Diagnoses PRIMARY OSTEOARTHRITIS OF LEFT HIP Procedures TOTAL HIP ARTHROPLASTY Herber Knott MD [address] [place] [address], [address] [place] [address] Phone: tel: fax: Referral ID Status Reason Start Date Expiration Date Visits Re quested Visits Authorized [id number] 1 1 Encounter Details Date Type Department Care Team (Late st Contact Info) Description 04/07/2022 7:29 AM CDT [facility] [address] [place] [address] Pito Sepulveda, [address] [place] [address] Malik Doss APRN, [facility] [address] [place] [address] Anesthesia Record Procedure Summary Procedure Name Responsible Anesthesiologist Anesthesia Start Time Anesthesia Stop Time LEFT TOTAL HIP ARTHROPLASTY, ANTERIOR APPROACH (Left: Hip) Pito Sepulveda DO 04/07/22 0729 04/07/22 0938 Events Date Time Event Comment 04/07/2022 0713 0729 An Start 0731 An Start Data 0734 ANASSESSCMPLT 0736 Spinal 0743 Start Supplemental O2 0757 Anesthesia Ready 0827 An LMA 0931 Airway Removed 0932 Stop Data Collection 0937 Handoff to RN I completed my SBAR handoff to the receiving nurse. Last vitals BP: 152/68 Temp: 37.2 ??C Pulse: 64 Resp: 16 SpO2: 96 % 0938 An Stop Last vitals: BP : 152/68 Temp: 37.2 ??C Pulse: 64 Resp: 16 SpO2: 96 % Meds Name Total propofol 10 mg/mL 428,670 mcg fentaNYL 50 mcg/mL 100 mcg ondansetron 4 mg/2 mL 4 mg dexamethasone 10 mg/mL 5 mg phenylephrine 10 mg/mL 400 mcg Bupivacaine 0.75% (Spinal) 1 mL ceFAZolin (ANCEF) injection 2 g 2 g tranexamic acid bolus from infusion 1,00 0 mg lactated ringers infusion 1,800 mL * Agents Name FiO2 (%) FexpO2 (%) Inspired CO2 (mmHg) ETCO2 (mmHg) Inspired N2O (%) N2O (%) Sevoflurane (%) Inspired Sevoflurane (%) * Blood No blood administrations on file. Lines, Drains, and Airways Type Details Placement Removal PIV-Single Lumen Placement Date: 04/07/22; Placement Time: 0555; Catheter Size: 20 G; Orientation: Anterior, Left, Proximal; Location: Forearm; Site Prep: Alcohol; Local Anesth: None; Technique: Anatomical landmarks; Insertion Attempts: 1; Patient Tolerance: Tolerated well; Removal Date: 04/08/22; Removal Time: 1056 04/07/22 0555 by Nehal Hammond RN 04/08/22 1056 by Mellissa Ruano RN RETIRED Incision 04/07/22; 0824; Left ; anterior; hip; 05/28/22 (Removed & Completed by utility. See Epic RA 4054); 1746 (Removed & Completed by utility. See Epic RA 4054) 04/07/22 0824 by Bia Howard RN 05/28/221746 by Charan Rivera documented in this encounter Social History Tobacco Use Types Packs/Day Years [...] AM CDT documented as of this encounter OR Notes * Anesthesia Postprocedure Evaluation - Pito Sepulveda DO - 04/07/2022 9:54 AM CDT Patient: Quin Talley Procedure Summary Date: 04/07/22 Room / Location: [facility] OR / [facility] Anesthesia Start: 728 Anesthesia Stop: 937 Procedure: LEFT TOTAL HIP ARTHROPLASTY, ANTERIOR APPROACH (Left Hip) Diagnosis: (PRIMARY OSTEOARTHRITIS OF LEFT HIP) Surgeons: Herber Knott MD Responsible Provider: Pito Sepulveda DO Anesthesia Type: spinal ASA Status: 3 Anesthesia Type: spinal Last vitals Vitals Value Taken Time BP Temp Pulse Resp SpO2 Pain score: 2 Pain management: adequate Patient location during evaluation: ASU Patient participation: Fully recovered to participate Level of consciousness: awake Cardiovascular status: acceptable Respiratory status: acceptable Hydration status: acceptable Anesthetic complications: no Airway patency: patent Nausea and Vomiting: none * Anesthesia Postprocedure Evaluation - Pito Sepulveda DO - 04/07/2022 9:52 AM CDT Patient: Quin Talley Procedure Summary Date: 04/07/22 Room / Location: [facility] OR 05 / [facility] [place] Anesthesia Start: 728 Anesthesia Stop: 937 Procedure: LEFT TOTAL HIP ARTHROPLASTY, ANTERIOR APPROACH (Left Hip) Diagnosis: (PRIMARY OSTEOARTHRITIS OF LEFT HIP) Surgeons: Herber Knott MD Responsible Provider: Pito Sepulveda DO Anesthesia Type: spinal ASA Status: 3 Anesthesia Type: spinal Last vitals Vitals Value Taken Time BP Temp Pulse Resp SpO2 Pain score: 2 Pain management: adequate Patient location during evaluation: ASU Patient participation: Fully recovered to participate Level of consciousness: awake Cardiovascular status: acceptable Respiratory status: acceptable Hydration status: acceptable Anesthetic complications: no Airway patency: patent Nausea and Vomiting: none * Anesthesia Procedure Notes - Pito Sepulveda DO - 04/07/2022 9:04 AM CDTAssociated Order(s): LMA LMA Staffing Performed: anesthesiologist Anesthesiologist: Pito Sepulveda DO Airway Details Overall Difficulty: Easy Preoxygenated: Yes LMA Size: 4 Adequate seal established: Yes LMA placement confirmed by: bilateral breath sounds, CO2 detection Atraumatic LMA Placement * Anesthesia Procedure Notes - Pito Sepulveda DO - 04/07/2022 8:10 AM CDTAssociated Order(s): Spinal by Anesthesia Spinal by Anesthesia Start time: 04/07/2022 7:36 AM End time: 04/07/2022 7:45 AM Staffing Performed: anesthesiologist Anesthesiologist: Pito Sepulveda DO Preanesthetic Checklist Completed: patient identified, IV checked, risks and benefits discussed, surgical consent, monitorsand equipment checked, pre-op evaluation and timeout performed Spinal: Monitoring: EKG Position: sitting Prep: Betadine, surgical hat, sterile gloves, sterile drape, surgical mask, sterile technique and surgical mask, surgical hat, sterile gloves Coaxial introducer size: none. Needle type: Quincke Needle gauge: 22g Needle length: 3.5 in Approach: midline Level: L3-L4 CSF: CSF return Paresthesia: Paresthesia noted. Heme: No blood return on aspiration Medications Given: Bupivacaine 0.75% (Spinal) - Intrathecal 1 mL - 04/07/2022 7:42:00 AM @ 04/07/2022 7:36 AM Additional Notes Patient Tolerance: Patient tolerated the procedure well with no immediate complications Additional Notes: Attempt at L2-3 with transient paraesthesia right leg no injection made switched to L3-4 first pass no paraesthesia no heme pos CSF 1.4 cc hyperbaric 0.75% bupivicaine with complication * Anesthesia Preprocedure Evaluation - Pito Sepulveda DO - 04/07/2022 7:15 AM CDT Anesthesia Evaluation Procedure Information Date/Time: 04/07/22709 Procedure: LEFT TOTAL HIP ARTHROPLASTY, ANTERIOR APPROACH (Left Hip) Location: [facility] OR 05 / [facility] Surgeons: Herber Knott MD Patient summary reviewed and Nursing notes reviewed No history of anesthetic complications No family history of anesthesia reaction Allergies: No Known Allergies Patient allergies reviewed. Medications: Current Facility-Administered Medications: ??? bupivacaine (PF) 0.5 % 100 mg, ketorolac 30 MG/ML 30 mg, morphine sulfate (PF) 10 MG/ML 10 mg, EPINEPHrine (Anaphylaxis) 0.3 mg solution, , Injection, Once, Herber Knott MD ??? ceFAZolin (ANCEF) injection 2 g, 2 g, Intravenous, Once, Herber Knott MD ??? lactated ringers infusion, 20 mL/hr, Intravenous, Continuous, Tim Amaya MD, Last Rate: 20 mL/hr at 04/07/22608, 20 mL/hr at 04/07/22608 ??? oxyCODONE (OxyCONTIN) ER tablet 20 mg, 20 mg, Oral, Once, Herber Knott MD ??? tranexamic acid (Cyklokapron) 1,220 mg in sodium chloride 0.9 % 100 mL IVPB, 15 mg/kg, Intravenous, Once, Herber Knott MD Medications Prior to Admission: hydroCHLOROthiazide 25 MG Tablet, Take 25 mg by mouth daily., Disp: , Rfl: losartan (COZAAR) 100 MG Tablet, Take 100 mg by mouth daily., Disp: , Rfl: warfarin (COUMADIN) 4 MG Tablet, Take 4 mg by mouth daily. ., Disp: , Rfl: Patient medications reviewed. Airway Mallampati: II TM distance: >3 FB Neck ROM: full Dental Pulmonary breath sounds clear to auscultation Cardiovascular (+) hypertension (afib), Neuro/Psych GI/Hepatic/Renal Endo/Other (+) arthritis, Risks, benefits, alternatives discussed with:patient. Anesthesia Plan ASA 3 spinal Anesthetic plan and risks discussed with Patient. Use of blood products discussed with patient who. Plan discussed with surgeon and SRNA. documented in this encounter Plan of Treatment Not on file documented as of this encounter Procedures Procedure Name Priority Date/Time Associated Diagnosis Comments LMA Routine 04/07/2022 9:04 AM CDT SPINAL Routine 04/07/2022 7:36 AM CDT documented in this encounter Results * LMA (04/07/2022 9:04 AM CDT) Narrative Pito Sepulveda DO - 04/07/2022 9:04 AM CDT Pito Sepulveda, ? 04/07/2022 ??9:04 AM LMA Staffing Performed: anesthesiologist Anesthesiologist: Pito Sepulveda DO Airway Details Overall Difficulty: ??Easy Preoxygenated: ??Yes LMA Size: ??4 Adequate seal established: ??Yes LMA placement confirmed by: ??bilateral breath sounds, ??CO2 detection Atraumatic LMA Placement Pito Sepulveda DO ANESTHESIA ORDERABL ES Final Result * Spinal by Anesthesia (04/07/2022 7:36 AM CDT) Narrative Pito Sepulveda DO - 04/07/2022 7:36 AM CDT Pito Sepulveda DO ? 04/07/2022 ??8:16 AM Spinal by Anesthesia Start time: 04/07/2022 7:36 AM End time: 04/07/2022 7:45 AM Staffing Performed: anesthesiologist Anesthesiologist: Pito Sepulveda DO Preanesthetic Checklist Completed: patient identified, IV checked, risks and benefits discussed, surgical consent, monitors and equipment checked, pre-op evaluation and timeout performed Spinal: Monitoring: EKG Position: sitting Prep: Betadine, surgical hat, sterile gloves, sterile drape, surgical mask, sterile technique and surgical mask, surgical hat, sterile gloves Coaxial introducer size: none. Needle type: Quincke Needle gauge: 22g Needle length: 3.5 in Approach: midline Level: L3-L4 CSF: CSF return Paresthesia: ??Paresthesia noted. Heme: ??No blood return on aspiration Medications Given: ??Bupivacaine 0.75% (Spinal) - Intrathecal 1 mL - 04/07/2022 7:42:00 AM @ ??04/07/2022 7:36 AM Additional Notes Patient Tolerance: ??Patient tolerated the procedure well with no immediate complications Additional Notes: Attempt at L2-3 with transient paraesthesia right leg no injection made switched to L3-4 first pass no paraesthesia no heme pos CSF 1.4 cc hyperbaric 0.75% bupivicaine with complication Pito Sepulveda DO ANESTHESIA ORDERABL ES Final Result documented in this encounter Visit Diagnoses Not on filedocumented in this encounter Administered Medications Inactive Administered Medications - up to 3 most recent administrations Medication Order MAR Action Action Date Dose Rate Site bupivacaine 0.75% in dextrose 8.25% (intrathecal) (SENSORCAINE) 0.75-8.25 % injection Intrathecal, Starting on Wed04/07/22 at 0742, Until Wed04/07/22 at 0742 Given 04/07/2022 7:42 AM CDT 1 mL ceFAZolin (ANCEF) injection 2 g 2 g, Intravenous, ONCE, 1 dose, On Wed04/07/22 at 0600, Administer over 5 Minutes, INTRA-OP, Indications: Perioperative PharmacoprophylaxisIndications:[place] operative Pharmacoprophylaxis Given 04/07/2022 7:45 AM CDT 2 g dexamethasone (DECADRON) injection Intravenous, ONCE (in OR), Starting on Wed04/07/22 at 0856, Until Wed04/07/22 at 0952 Given 04/07/2022 8:56 AM CDT 5 mg fentaNYL (PF) (SUBLIMAZE) injection Intravenous, ONCE (in OR), Starting on Wed04/07/22 at 0734, Until Wed04/07/22 at 0952 Given 04/07/2022 9:23 AM CDT 50 mcg Given 04/07/2022 7:34 AM CDT 50 mcg ondansetron (ZOFRAN) injection Intravenous, ONCE (in OR), Starting on Wed04/07/22 at 0857, Until Wed04/07/22 at 0952 Given 04/07/2022 8:57 AM CDT 4 mg phenylephrine (TERRI-SYNEPHRINE) injection Intravenous, ONCE (in OR), Starting on Wed04/07/22 at 0819, Until Wed04/07/22 at 0952 Given 04/07/2022 8:34 AM CD T 200 mcg Given 04/07/2022 8:19 AM CDT 200 mcg propofol (DIPRIVAN) injection Intravenous, ONCE (in OR), Starting on Wed04/07/22 at 0752, Until Wed04/07/22 at 0952 New Bag 04/07/2022 8:01 AM CDT 50 mcg/kg/min 24.66 mL/hr Given 04/07/2022 7:52 AM CDT 30 mg tranexamic acid bolus from infusion Intravenous, ONCE (in OR), Starting on Wed04/07/22 at 0749, Until Wed04/07/22 at 0952, Administer over 10 Minutes Given 04/07/2022 7:49 AM CDT 1,000 mg documented in this encounter Care Teams Tooth Cutter Spur Relationship Specialty Start Date End Date Provider, Not On File [place] PCP - General 03/19/22 04/07/22 documented as of this encounter
--- OUTSIDE RECORDS SUMMARY | 2024-10-22 00:18 | XMS_ITS | Encounter Summary ---
Author Organization [employer] Care Team Providers Care Sales And Catering Coordinator Name Role Phone Provider, Not On File Primary Care Provider Unav ailable Encounter Details Date Type Department Care Team (Latest Contact Info) Description 03/25/2022 Travel Social History Tobacco Use Types Packs/Day Years [...] suspected to have Coronavirus/COVID-19? No / Unsure 03/25/2022 8:17 AM CDT documented as of this encounter Plan of Treatment Not on file documented as of this encounter Visit Diagnoses Not on filedocumented in this encounter Care Teams Sales And Catering Coordinator Relationship Specialty Start Date End Date Provider, Not On File [place] PCP - General 03/19/22 04/07/22 documented as of this encounter
--- OUTSIDE RECORDS SUMMARY | 2024-10-22 00:18 | XMS_ITS | Encounter Summary ---
Author Organization [employer] Care Team Providers Care Bricklayer Apprentice Name Role Phone Provider, Not On File Primary Care Provider Unav ailable Encounter Details Date Type Department Care Team (Latest Contact Info) Description 04/07/2022 Travel Social History Tobacco Use Types Packs/Day [...] on filedocumented in this encounter Care Teams Bricklayer Apprentice Relationship Specialty Start Date End Date Provider, Not On File [place] PCP - General 03/19/22 04/07/22 documented as of this encounter
--- OUTSIDE RECORDS SUMMARY | 2024-10-22 00:18 | XMS_ITS | Encounter Summary ---
Author Organization [facility] Address [address] [place] [address] Phone Care Team Providers Care Meter Tester Name Role Phone Provider, Not On File Primary Care Provider Unav ailable Reason for Visit * Auth/Cert Specialty Diagnoses / Procedures Referred By Lyndsey t Referred To Contact Diagnoses PRIMARY OSTEOARTHRITIS OF LEFT HIP Procedures TOTAL HIP ARTHROPLASTY Herber Knott MD [address], [address] [place] [address] Phone: tel: fax: Referral ID Status Reason Start Date Expiration Date Visits Re quested Visits Authorized [id number] 1 1 Encounter Details Date Type Department Care Team (Late st Contact Info) Description 04/07/2022 7:10 AM CDT - 04/07/2022 9:10 AM CDT Surgery [facility] Periop [address] [place] [address] Herber Knott MD [address], [address] [place] [address] LEFT TOTAL HIP ARTHROPLASTY, ANTERIOR APPROACH Surgery Details Date/Time Status Location OR Service Patient Class Case Class Case Type Trauma Case? 04/07/2022 7:10 AM Posted [facility] [address] [place] [address] Ambulatory Surgery Panel 1 Procedure LRB Anes Op Region Wound Class Comments LEFT TOTAL HIP ARTHROPLASTY, ANTERIOR APPROACH Left Combined General and Spinal Hip Clean Surgeon Surgeon Role Service Panel Herber Knott MD Primary Orthopaedic 1 Special Needs 5'4 179#, VACC. W/ BOOST X2, HX AFIB AND ROLLS BAKER WARFARIN, TO HOLD 5 DAYS PRIOR TO SURGERY, PT AND PTT ON ADM. TO DS. + URINE CULTURE ON 03/22, OFFICE NOTIFIED ON 03/25. documented in this encounter Social History Tobacco [...] Sign Reading Time Taken Comments Blood Pressure 152/68 04/07/2022 5:59 AM CDT Pulse 64 04/07/2022 5:59 AM CDT Temperature 37.2 ??C (99 ??F) 04/07/2022 5:59 AM CDT Respiratory Rate 16 04/07/2022 5:59 AM CDT Oxygen Saturation 96% 04/07/2022 5:59 AM CDT Inhaled Oxygen Concentration - - Weight 82.2 kg (181 lb 5 oz) 04/07/2022 5:59 AM CDT Height 162.6 cm (5' 4 ) 04/07/2022 5:59 AM CDT Body Mass Index 30.9 04/07/2022 10:54 AM CDT documented in this encounter Discharge Summaries * Kami Lyons PAC - 04/08/2022 6:53 AM CDT Inpatient Discharge Summary BRIEF OVERVIEW Admitting Provider: Herber Knott MD Discharge Provider: Herber Knott MD Primary Care Physician at Discharge: NOT ON FILE PROVIDER None Admission Date: 04/07/2022 Discharge Date: 04/08/22 Primary Discharge Diagnosis: left hip osteoarthritis status post total hip arthroplasty Secondary Discharge Diagnosis: none DETAILS OF HOSPITAL STAY Presenting Problem/History of Present Illness: Left hip osteoarthritis Hospital Course: Quin Talley presented to the hospital and underwent a left total hip arthroplasty without any complications. She progressed well with physical therapy and met all objectives. Oral intake was tolerated well. Pain was well controlled with oral pain medication throughout the hospital stay.She was placed on lovenox bridge to coumadin for DVT prophylaxis and discharged to home in stable condition. Test Results Pending at Discharge: See chart Operative Procedures Performed: Procedure(s): LEFT TOTAL HIP ARTHROPLASTY, ANTERIOR APPROACH Discharge Details Physical Exam at Discharge: Discharge Condition: stable Pulse: 53 Resp: 18 BP: 113/40 Temp: 98.7 ??F (37.1 ??C) Weight: 180 lb (81.6 kg) Discharge Disposition: stable Discharge Instructions: Patient is continue with activity and weight-bearing as tolerated. Continue to keep the wound cleanand dry for 5 days. May shower on the 5th day. To perform p.r.n. dressing changes thereafter. Continue home therapy and home exercises. Discharge Medications: See chart Outpatient Follow-Up: No future appointments. Cosigned by Herber Knott MD at 04/21/2022 7:39 AM CDT documented in this encounter Discharge Instructions * Discharge Instructions* Delilah Woods - 04/08/2022 10:23 AM CDT You have chosen [facility] for the nursing, physical therapy your doctor has ordered. They will call you to schedule initial visit. If you have not heard from them within 24 hours of your discharge, please call ( ). [facility] is providing your wheeled walker. This has been delivered to your hospital room. If you have questions regarding your equipment, please call [phone] (or toll free [phone]). documented in this encounter Medications at Time of Discharge ascorbic acid 500 MG Tablet Take 1 Tablet by mouth daily. 30 Tablet 04/08/2022 ferrous sulfate 325 (65 Fe) MG Tablet Take 1 Tablet by mouth daily. 30 Tablet 04/08/2022 hydroCHLOROthiazi de 25 MG Tablet Take 25 mg by mouth daily. HYDROcodone-aceta minophen (NORCO) 5-325 MG TabletIndications :Moderate to Moderately Severe Pain Take 1-2 Tablets by mouth every 4 hours as needed for Moderate or more severe pain. Indications: Moderate to Moderately Severe Pain 60 Tablet 04/08/2022 losartan (COZAAR) 100 MG Tablet Take 100 mg by mouth daily. ondansetron (ZOFRAN-ODT) 4 MG TABLET DISPERSIBLE Take 1 Tablet by mouth every 6 hours as needed for Nausea - 1st line. 20 Tablet 1 04/08/2022 scopolamine (TRANSDERM-SCOP) 1 MG/3DAYS PATCH 72 HR 1 Patch by Transdermal route every 72 hours. 1.5 mg patch delivers 1 mg over 3 days 4 Patch 04/08/2022 senna-docusate (SENOKOT S) 8.6-50 MG Tablet Take 2 Tablets by mouth 2 times daily. 60 Tablet 1 04/08/2022 warfarin (COUMADIN) 4 MG Tablet Take 4 mg by mouth daily. . enoxaparin (LOVENOX) 40 MG/0.4ML Solution Prefilled Syringe [The details of the medication are not available because there are pending changes by a home health clinician.] 2.8 mL 04/08/2022 2 documented as of this encounter Progress Notes * Kami Lyons PAC - 04/08/2022 6:51 AM CDT Orthopedic Total Hip Progress Note Assessment & Plan Status post-left total hip arthroplasty: Doing well postoperatively. Nausea resolved. Pain controlled with norco. Discussed home health with patient, she does not want at this time, but will think about it and decide later this afternoon. Order placed. Continues current post-op course. Home with family on discharge today. Pt is to continue on lovenoxbridge to Coumadin for DVT prophylaxis and is to follow up two weeks following surgery for the initial postoperative appointment. She will call PCP tomorrow for INR checks Activity: up with assistance Weight Bearing: WBAT LOS: 1 day Subjective Post-Operative Day: 1 post-left total hip arthroplasty Systemic or Specific Complaints: No Complaints. Denies any chest pain, shortness of breath, nausea or vomiting. Pt is progressing well with physical therapy and is ambulating with the use of a wheeled walker. Pt reports mild pain, which is well controlled with prescribed oral narcotics. Objective Vital signs in last 24 hours: Temp: [96.8 ??F (36 ??C)-98.7 ??F (37.1 ??C)] 98.7 ??F (37.1 ??C) Pulse: [50-93] 53 Resp: [14-19] 18 BP: (103-135)/(39-80) 113/40 General: no distress, cooperative, appears stated age Neurovascular: NV intact Wound: Wound clean and dry no evidence of infection. Range of Motion: Limited due to post op state DVT Exam: No evidence of DVT seen on physical exam. Data Review CBC:@LABRCNTIP(WBC,RBC,HGB,HCT,PLT)@ VALENCIA Sullivan Date: 04/08/2022 Time: 6:51 AM CDT Cosigned by Herber Knott MD at 04/21/2022 7:39 AM CDT documented in this encounter H&P Notes * Herber Knott MD - 04/07/2022 7:10 AM CDT Risks, benefits, and alternatives reviewed and patient wishes to proceed with left total hip replacement. Herber Knott Source Note - Herber Knott MD - 03/24/2022 11:35 AM CDT documented in this encounter Nursing Notes * Bia Ang RN - 04/07/2022 9:44 AM CDT Specimen Transported to OR SPECIMEN ROOM by Kiarra ANG. * Bia Ang RN - 04/07/2022 9:07 AM CDT WHO Safety Checklist Team Debriefing completed. Additional information discussed during debrief, inrelation to patient specific assessment, includes blood loss, glycemic control, pain management, and venous thromboembolism prophylaxis, as needed. All members of the surgical team participated in the debriefing process, and each records information as applicable in their respective areas of documen tation. documented in this encounter OR Notes * OR Surgeon - Herber Knott MD - 04/08/2022 4:49 PM CDT OPERATIVE REPORT Admit: 04/07/2022 CSN: [id number] Dictating Provider: [id number] Herber Knott MD DATE OF PROCEDURE: 04/07/2022 SURGEON: Herber Knott MD PHOSPHATIC FERTILIZER SUPERVISOR: VALENCIA Hernandez PREOPERATIVE DIAGNOSIS: Left hip osteoarthritis. POSTOPERATIVE DIAGNOSIS: Left hip osteoarthritis. PROCEDURE: Left total hip replacement. ANESTHESIA: Spinal. COMPLICATIONS: None. ESTIMATED BLOOD LOSS: 200 cubic centimeters. CONDITION: Stable, to PACU. IMPLANTED COMPONENTS: Please see supplementary OR documentation for exact sizes. A DePuy Gription pinnacle shell with polyethylene liner and Actis femoral stem and ceramic head were implanted. TECHNIQUE: I met the patient in the preoperative holding area and signed her left hip. She was transferred to the operating room where spinal anesthesia was administered, preoperative antibiotics were given, and a time-out was carried out with all appropriate parties in the room. The bilateral lower extremities were prepped and draped in usual sterile fashion with the patient in the supine position. Following time-out, a longitudinal incision was made over the anterior aspect of the left hip and an anterior approach was carried out to the Hueter interval. The branches of the lateral femoral circumflex artery were identified and coagulated, and the pre-capsular fat pad was excised. An inverted T capsulotomy was performed, and the arthritic head was resected at the appropriate level as had been previously templated. The acetabulum was exposed and the pulvinar and labrum were excised. Acetabular reaming ensued, and the appropriate size cup was impacted under fluoroscopic guidance after thorough irrigation. Screws were drilled, measured and placed only if necessary, and the polyethylene was locked into place. Attention was turned to the femur, which was exposed in standard fashion utilizing the Omni-Tract femoral hook with the leg in adduction, external rotation and extension. Sequential broaching ensued up to the appropriate size, and the appropriate head and neck combination was placed and the hip was trialed. Leg lengths were appropriate, offset was appropriate, femoral and acetabular component position was appropriate under fluoroscopy, and stability testing was appropriate. Therefore, the hip was gently dislocated and the trial components were removed. The femoral canal was thoroughly irrigated, and the final Actis stem was placed inside at the same level as the previous broach. Therefore, the appropriate size ceramic head was tapped onto the clean dry trunnion and locking was confirmed. The hip was gently reduced with traction and internal rotation and once again, leg lengths were equal, Shuck test was appropriate, stability testing was appropriate and fluoroscopic images confirmed appropriate component position. The wound was thoroughly irrigated and injected with standard analgesic cocktail in the periarticular soft tissues, and then closed with tying of Orthocord suture in the capsule, running Stratafix in the fascia, running barbed suture in the subcutaneous tissue, and Monocryl in the skin reinforced with Steri-Strips. Sterile bandage was applied, and the patient was transported to the PACU in good condition having had no complications during her procedure. Sponge, needle, and instrument counts were all correct at the end of the case. JAKE/aracely /[id number] documented in this encounter Miscellaneous Notes * Interdisciplinary - Mellissa Ruano RN - 04/08/2022 4:44 PM CDT Patient up walking in the scott with walker without difficulty, pt denies pain at this time, no s/s of distress noted, pt has been unable to urinate today, pt has had adequate intake and a liter of fluids, bladder scan showed 400cc in her bladder, pt states she has trouble unless she is at home, made a call to Dr Monte office to make them aware and see if pt could still discharge, no return phone call at this time, pt insisted that she was going home, her ride is at bedside to transport her via family car, pt instructed to go to ER if she cont to not urinate and to call her primary doctor in the am. Patient understands all instructions. * Plan of Care - Bernie Schumacher, PT - 04/08/2022 12:15 PM CDT Problem: Adult Inpatient Plan of Care Goal: PT - Goal Description: PT Plan of Care: Date of Initial Evaluation: 04/07/2022 Patient to be seen by Physical Therapy BID. Physical Therapy to address impairments and functional limitations. Treatments to include: Balance training, Endurance training, Gait, Mobility/Transfers, Neuro re-education, Safety, Stairs , and Therex Precautions: Full Code, Hip: anterior hip precautions, Weight Bearing: WBAT, and Fall Goals to be achieved by: 04/14/2022 - Patient will perform supine-sit transfers with Supervision to be able to assist with positioning.MET 04/08/22 dcf - Patient will perform sit-stand transfers with wheeled walker and Stand by assist to be able to complete higher level upright mobility.MET 04/08/22 dcf - Patient will ambulate with least restrictive device for 100 feet with Contact guard assist to be able to facilitate patient access to entire home environment. MET 04/08/22 dcf - Patient will ascend/descend 2 stairs with single rail on right when ascending and Contact guard assist to be able to access main entry of apartment/home. MET 04/08/22 dcf - Patient will improve AM-PAC score to be greater than or equal to 2 points (predicted level of improvement) to indicate improved overall daily function. ONGOING 04/08/22 dcf - Patient will demonstrate hip precautions during functional mobility to promote healing of hip andreduce pain. ONGOING Patient stated goal: to be able to go shopping PHYSICAL THERAPY TREATMENT NOTE Recommendations: Recommendations for floor staff include up with assist and requires Stand by assist with Gait belt and Wheeled walker. At discharge from Acute care facility, it appears that patient would benefit from Home health physical therapy due to Impaired Gait and Balance Deficits. DME recommendations include: Wheeled walker. Activity recommendations communicated with , RN. Assessment: Patient seen Bedside for participation in physical therapy for treatment. Patient limited this session by Decreased endurance, Decreased strength, Impaired balance, and Impaired gait that leads to functional limitations including decreased ability to safely ambulate through the house where she lives along. Patient???s strengths include Good participation/motivation and Independent prior to admission. Patient demonstrates progress towards goals as evidenced by improved gait and transfers. Patient will benefit from continued physical therapy to address deficits. Next session plan to progress as tolerated. Patient was seen 04/08/2022. Plan of Care reviewed with: patient Patient Progress: Progress towards functional goals as expected All charges entered today are appropriate and separate from each other. Eval /Treat Visit and Timing Start Time: 950 Stop Time: 1008 Time Calculation (min): 17 min Time Calculation Comment: 17 therapttic activities Type of visit: Treatment Treatment Type: Therapeutic Activities Therapeutic Activity Time Entry: 17 Eval /Treat General Information Patient Profile Reviewed: yes Pertinent History of Current Functional Problem: left anterior approach TKA Onset of Illness/Injury or Date of Surgery: 04/07/22 Referring Physician: Hedy General Observations of Patient: Patient laying supine in bed with HOB elevated Subjective Information: I feel much better today, no more throwing up!' R: Location*: hip, right R: Number Pain Rating: Rest*: 0 R: Number Pain Rating: Activity*: 2 Existing Precautions/Restrictions: fall, hip, weight bearing Extremity Weight-bearing Status: left lower extremity Left Lower Extremity (Weight-bearing Status): weight-bearing as tolerated (WBAT) Safety Interventions Safety Promotion/Fall Prevention: lighting adjusted for task/safety, mobility aid, nonskid shoes/slippers when out of bed All Alarms: alarm(s) activated and audible Cognition Affect/Mental Status (Cognition): WFL Bed Mobility Bed Mobility: supine-sit Scooting/Bridging Huson (Bed Mobility): modified independence Supine-Sit Huson (Bed Mobility): modified independence Comment (Bed Mobility): Patient able to perform bed mobility indpedently but slowly without bed rails or assist. Sit/Stand Transfer Level of Assistance (Sit-Stand Transfers): verbal cues, standby assist, 1 person to manage equipment Level of Assistance (STAND/SIT): 1 person to manage equipment Assistive Device (Transfers): walker, front-wheeled, gait belt Comment: Patient verbalized safe sequencing, then perfomred task with [facility] and supervision for optimal balance. Gait Mobility Huson Level (Gait): verbal cues, standby assist, 1 person to manage equipment Assistive Device (Gait): walker, front-wheeled, gait belt Distance in Feet (Gait): 150 x 2 Deviations/Abnormal Patterns (Gait): decreased gait speed, decreased step length Comment: Patient ambulated 150 feet with wheeled walker with verbal cues to increase step length. After cueed, ambulation improved. pateint then walked an additional 150 feet and for approx 75 feet of that attempted ambulation without an assistive device. Patient requried CGA without the device andbut had no increase in pain. Instructed patient to make sure and use the wheeled walker at home. Stairs Mobility Negotiation (Stairs): stairs assistive device, handrail location, number of steps Assistive Device (Stairs): gait belt Number of Steps (Stairs): 4 Handrail Location (Stairs): left side (ascending) Stair Comments: Pateint was educated on sequencing for steps for optimal safety. Educated on rationale for sequencing. patient perfomred 2 steps x 2 with CGA and verbal cues in step to pattern. Mobility Exercises and addl. Comments Comment (Therapeutic Exercise): reviewed hip precautions with patient and educated on HHC and benefits of ongoing therapy to transition to a cane as tolerate. instructed patient to continue to use wheeled walker until cleared by HHC or doctor to progress away from walker. Balance Balance Assessment: sitting static balance, sitting dynamic balance, sit to stand dynamic balance, standing static balance, standing dynamic balance Static Sitting Balance: WFL Dynamic Sitting Balance: WFL Sit to Stand Dynamic Balance: WFL Static Standing Balance: WFL Dynamic Standing Balance: mild impairment Functional Outcome [facility] used: [facility]?? Basic Mobility Inpatient Short Form How much help from another person does the patient currently need??? 1. Turning from your back to your side while in a flat bed without using bedrails? 4 None 2. Moving from lying on your back to sitting on the side of a flat bed without using bedrails? 4 None 3. Moving to and from a bed to a chair (including a wheelchair)? 3 A Little 4. Standing up from a chair using your arms (e.g. wheelchair or bedside chair)? 3 A Little 5. To walk in hospital room? 3 A Little 6. Climbing 3-5 steps with a railing? 3 A Little Raw Score 20 16 or Less = predictive of discharge to an institutional setting. 17-24 = predictive of discharge to home Brendon Grover at al. Association of A-PAC ???6 Clicks?? Basic Mobility and Daily Activity Scores with Discharge Destination. PTJ. November 2020 Patient was left up in chair with indicated alarms after therapy with call light near. BERNIE SCHUMACHER, PT Outcome: Ongoing (see interventions/notes) * Plan of Care - Mellissa Ruano RN - 04/08/2022 10:54 AM CDT Patient has met all goals for this stay, pt to discharge home with home health and a walker * Interdisciplinary - Angeles Mast Ace - 04/08/2022 10:38 AM CDT Decal Applier - Transition Arrangements Coordinated Note - Transition Specialists do not coordinate all transitions or aspects of transitions- CONFIRM PATIENT READINESS WITH JUNIOR MEDIA BUYER PRIOR TO DISCHARGE Oil Refinery Operator notified: yes, notified NIA Mazariegos at the following time 1038 via ID. Additional Details of Discharge Plan: Patient is discharging home with home health. [facility] will call patient to schedule SOC. Home Health - coordination complete with [facility] (Home Health Agency) Updates for Elitra???s discharge sent to agencies and agency personnel notified: yes, notified [facility] at the following time 1029 via Epic IB. Home Agency added to/ verified on patient's [facility] Care Team? Agency does not have a Direct Messaging Digital Address Agency is [facility] Follow-Up Appointment Information: Readmission risk level (if calculated) is: (Note: TS makes the PRIMARY Hospital Follow Up appointment for Medium-High, High Risk and Heart Failure patients ONLY) N/A - Readmission risk level NOT high, medium-high, OR principle problem is NOT heart failure or COVID Bonny Mast Decal Applier Care Management, [facility] * Interdisciplinary - Angeles Mast Ace - 04/08/2022 10:37 AM CDT Decal Applier Coordination Note SUMMARY - Decal Applier currently working the potential transition plan(s): ??? 04/08/2022 @ 10:30 AM CDT ([facility]) Home Health [WASTEWATER SUPERINTENDENT] (See detail within the referral type(s) below for information on what is needed to complete coordination Note - the Transition Specialists do not coordinate all transition types - please direct all question regarding hospital transition to the Oil Refinery Operator) Readmission risk level (if calculated) is: Primary Care Provider: PCP: HODAN PENDLETON MD Primary Medical Coverage: Medicare Part A And B Secondary Medical Coverage: [employer] [place] [facility] Follow-Up appointment(s) scheduling status: ??? N/A - Readmission risk level NOT high, medium-high, OR principle problem is NOT heart failure or COVID Home Health Referral Status: coordination complete Referral Type: New Provider who will sign on-going Home Health Plan of Care: PCP: HODAN PENDLETON MD Home Health Services Needed: longterm, physical therapy Needed Information / Documentation to complete Home Health coordination: ??? None [facility] - ACCEPTED & SELECTED - coordination complete Contact is [facility] ??? 04/08/2022 @ 10:31 AM CDT (KTM, TS) Received IB from NIA Mazariegos stating that patient is discharging today and will need home health. Notified [facility] and referral was sent via [facility] IB * Interdisciplinary - Delilah Woods - 04/08/2022 10:23 AM CDT Case Management Discharge Readiness Note Quin's readmission risk level (if calculated) is: Patient Class: Hospital Ambulatory Surgery Consecutive Inpatient Midnights :none - not currently inpatient class Actual day(s) of hospital stay (compare to working DRG): 1 Discharge: Final home discharge arrangements: home with Home Health Mode of transportation at discharge:: Family car Additional Information regarding DC Plan: Patient is returning home with a walker that has been delivered to bedside and [facility]. Discharge Plan Notification/ Verification 1. Patient's Phone numbers: [phone] (home) 2. Patient's preferred discharge phone number for follow up appointments, etc: (if different from above): N/A 3. Information for bedside nurse to call report and fax PACT Document in Sticky Note?: Not applicable - no external home care agencies or hemodialysis 4. Nursing notified: YES Mellissa RN 5. Patient/ Decision Maker and family notified: Quin IM Letter Documentation, if applicable N/A - Medicare but Observation, Assisted Inpatient, Emergency, or Ambulatory Surgery patientclass Decision Maker / Caregiver Information Medical Decision Maker Assessment: Patient is medical decision-maker * Plan of Care - Delilah Woods Delio - 04/08/2022 10:17 AM CDT Case Management Comprehensive Assessment Quin's readmission risk level (if calculated) is: Patient Class: Hospital Ambulatory Surgery Consecutive Inpatient Midnights :none - not currently inpatient class Actual day(s) of hospital stay (compare to working DRG): 1 Reason for Oil Refinery OperatorFinance Officer: Consult for home health and walker Quin is in the hospital due to: Hip replacement Prior to Admission (Support, Living Environment,ADLs IADLs, Transportation, Employment, Access to Care) Patient is alert and oriented x3. Quin is an 86 year old, , , female. Patient lives alone in a single story house with 2 steps to enter/exit. She is independent with ADL's includingmeals, cleaning, laundry, and driving. Patient does not have or use DME. Patient's PCP is HODAN PENDLETON MD located in [place] and she is active with them. Patient has Medicare and BCBS and denies any complications obtaining or affording medications. Patient does not have advanced directives on file and declines information. Quin is not a 30 day re-hospitalization. Plan of Care (Problem/ situation/ barrier + goals/ milestones + interventions + evaluation of progress = Plan of Care) Hospital Plan: discharge home today, PT/OT, pain control Anticipated Discharge Plan: Home Health () 04/08/22 Patient/ patient digital media representative's preferences regarding the discharge plan: Return home with home health and walker SUMMARY (summary of interaction with patient/decision maker, family and interdisciplinary team) Met with Quin and introduced self and role and discussed plan of care. Patient plans to return home and her daughter will be staying to assist as needed. She is agreeablewith home health and walker. She prefers [facility] with referral for home health routed. CM provided walker at bedside. Patient denies any additional needs at this time. CM will continue to follow. IM Letter Documentation, if applicable N/A - Medicare but Observation, Assisted Inpatient, Emergency, or Ambulatory Surgery patientclass Decision Maker / [place] Information Patient is medical decision-maker New referral(s) for [facility] [[facility]PER[facility]END[facility]] Agency Choice(s) ??? [facility] List of Medicare approved HH agencies with quality measures and resource data (with any financial affiliations disclosed and/ or in network providers identified as applicable) provided to patient / family: Yes Provider who will be signing the ongoing Home Health plan of care: HODAN PENDLETON MD (Note: at least one PRIMARY service of longterm, physical therapy or speech is required to meet medical necessity criteria for [facility] SU[employer]INT[employer]) Home Health Services Needed: longterm, physical therapy Anticipated Needs: disease management and education, post hospital rehabilitation services (PT, OT,SP) * Interdisciplinary - Didi Pretty RD - 04/08/2022 9:46 AM CDT Consult for warfarin and vitamin K potential food and drug interaction completed. Patient with prior knowledge of foods containing vitamin K and states prior education related to same. Provided refresher diet education with printed diet guidelines for home reference. Denies further diet questions or concerns at this time. * Home Care Referral - Kami Lyons PAC - 04/08/2022 6:55 AM CDT Face to Face Encounter Referral to Home Health made for Quin Talley, : 1935. This patient has been under my care and I, or a nurse practitioner or physician???s assistant associate professor working with me, had a [id number] encounter with her that meets the requirements on (date) 04/08/22. Primary Reason for Home Health Care (description of the current medical condition): S/p L DEEDEE (This encounter was in whole or in part for the patient???s medical condition and reason for Home Care) Based on my findings, the following services are medically necessary home health services (must have at least one primary service: Nursing, PT, Speech Language Pathology): Primary Services : Nursing and Physical Therapy Additional Services: Nursing Care and Physical Therapy To provide the following care / treatments: Rehabilitation Services and Gait Training My clinical findings support the need for the above services because of the following problems: Patient with history of falls, problems with poor balance, gait instability (Describe what the RN, PT, or TRACTOR SWEEPER DRIVER and other services will be doing in the home Therapy services must be provided with the expectation that, based on the assessment made by the physician of the patient's restorative potential, the condition of the patient will improve materially in a reasonable and generally predictable period of time.) This patient is considered homebound because: Unsteady gait/frequent falls/poor/balance (The patient must either: Because of illness or injury, need the aid of supportive devices such as crutches, canes, wheelchairs, and walkers; the use of special transportation; or the assistance of another person in order to leave their place of residence, OR Have a condition such that leaving his or her home is medically contraindicated AND there must exist: A normal inability to leave home; ANDLeaving home must require a considerable and taxing effort.) Allergies: Allergies There is no known ICA information for this patient. Immunizations: Immunization History Administered Date(s) Administered ??? Covid-19, Mrna, Lnp-s, Pf, 100 Mcg Or 50 Mcg Dose (MODERNA) 11/08/2020, 12/06/2020, 08/13/2021 ??? Covid-19, Mrna, Lnp-s, Pf, 30 Mcg/0.3 Ml Dose, Lavon-sucrose ([facility]) 03/16/2022 She has a past medical history of A-fib (HCC), Arthritis, group home use of blood thinners, and Hypertension. She has a past surgical history that includes Tonsillectomy. Payor: MEDICARE / Plan: MEDICARE PART A AND B / Product Type: *No Product type* / The physician who will be the attending physician for ongoing home care services and who will sign the Plan of Care will be: Dr. Knott Midlevel Practitioner Statement: My supervising physician for this encounter and referral is Dr. Knott, who will review and cosign this order. Signed: VALENCIA Sullivan, 04/08/2022, 6:56 AM CDT Cosigned by Herber Knott MD at 04/21/2022 7:39 AM CDT * Interdisciplinary - Karan Cruz RN - 04/08/2022 5:48 AM CDT Patient resting in bed, alarm active and audible. Pt denies pain, denies SOB per shift. IV fluids infusing. Pt was up to chair previous shift. Hip dressing dry and intact per shift. Pedal pulses WNL per shift. IV fluids infusing per MAR. Pt denies nausea per shift. Call light in reach, will continue to monitor. * Plan of Care - Karan Cruz RN - 04/08/2022 3:24 AM CDT Problem: Adult Inpatient Plan of Care Goal: Plan of Care Review Flowsheets Taken 04/08/2022 0303 by Karan Cruz, RN Outcome Summary: Dressing D/I per shift. pedal pulses 2+ per shift. Patient-Specific Preferences: lights out door open Taken 04/07/2022 1940 by Karan Cruz, RN Today's Goal: Dressing D/I per shift Taken 04/07/2022 1201 by Nehal Rosario, RN Progress: progress toward functional goals as expected Plan of Care Reviewed With: patient Does the patient need assistance with discharge and/or transitioning to the next level of care?: No, no needs anticipated Goal: Absence of Hospital-Acquired Illness or Injury Intervention: Prevent and Manage VTE (Venous Thromboembolism) Risk Flowsheets (Taken 04/07/20221939) VTE Prevention/Management: patient refused intervention Goal: Optimal Comfort and Wellbeing Intervention: Provide Person-Centered Care Flowsheets (Taken 04/07/20221939) Trust Relationship/Rapport: care explained choices provided empathic listening provided questions answered questions encouraged reassurance provided respect patient/family decisions provided nonverbal communication acknowledged safe/supportive environment facilitated thoughts/feelings acknowledged Problem: Pain Acute Goal: Acceptable Pain Control and Functional Ability Intervention: Develop Pain Management Plan Flowsheets (Taken 04/07/20221939) Pain Management Interventions: care clustered medication offered but refused pain management plan reviewed with patient/caregiver quiet environment facilitated Intervention: Prevent or Manage Pain Flowsheets (Taken 04/07/20221939) Sensory Stimulation Regulation: care clustered lighting decreased quiet environment promoted sleep/wake cycle managed Bowel Elimination Promotion: activity promoted adequate fluid intake promoted Sleep/Rest Enhancement: awakenings minimized regular sleep/rest pattern promoted noise level reduced natural light exposure provided room darkened relaxation techniques promoted Medication Review/Management: medications reviewed Intervention: Optimize Psychosocial Wellbeing Flowsheets (Taken 04/07/2022 1201 by Nehal Rosario, RN) Supportive Measures: active listening utilized relaxation techniques promoted self-care encouraged Diversional Activities: television Spiritual Activities Assistance: affirmation provided Problem: Hypertension Comorbidity Goal: Blood Pressure in Desired Range Intervention: Maintain Blood Pressure Management Flowsheets (Taken 04/07/20221939) Medication Review/Management: medications reviewed Problem: Bleeding (Surgery Nonspecified) Goal: Absence of Bleeding Intervention: Monitor and Manage Bleeding Flowsheets (Taken 04/08/2022 0303) Bleeding Management: dressing monitored Problem: Bowel Motility Impaired (Surgery Nonspecified) Goal: Effective Bowel Elimination Intervention: Enhance Bowel Motility and Elimination Flowsheets (Taken 04/08/2022 0303) Bowel Elimination Management: relaxation techniques promoted toileting offered Bowel Motility Enhancement: ambulation promoted fluid intake encouraged Problem: Infection (Surgery Nonspecified) Goal: Absence of Infection Signs and Symptoms Intervention: Prevent or Manage Infection Flowsheets (Taken 04/08/2022 0303) Infection Management: aseptic techniques maintained Fever Reduction/Comfort Measures: fluid intake increased lightweight bedding lightweight clothing Problem: Ongoing Anesthesia Effects (Surgery Nonspecified) Goal: Anesthesia/Sedation Recovery Intervention: Optimize Anesthesia Recovery Flowsheets Taken 04/08/2022 0303 by Karan Cruz, RN Reorientation Measures: clock in view Taken 04/07/2022 1800 by Annetta Galvan CNA Safety Promotion/Fall Prevention: nonskid shoes/slippers when out of bed room near unit station low bed Problem: Pain (Surgery Nonspecified) Goal: Acceptable Pain Control Intervention: Prevent or Manage Pain Flowsheets Taken 04/07/2022 1940 by Karan Cruz, supervisor tank storage Interventions: care clustered medication offered but refused pain management plan reviewed with patient/caregiver quiet environment facilitated Taken 04/07/2022 1201 by Nehal Rosario RN Diversional Activities: television Problem: Postoperative Urinary Retention (Surgery Nonspecified) Goal: Effective Urinary Elimination Intervention: Monitor and Manage Urinary Retention Flowsheets (Taken 04/08/2022 0303) Urinary Elimination Promotion: toileting device within reach toileting offered * Interdisciplinary - Marichuy Alejo RN - 04/07/2022 5:20 PM CDT Patient had c/os of persisting nausea after zofran and compazine were given. Pam BUSH called orders for a scopolamine patch given * Plan of Care - Elizabeth Lopez OT - 04/07/2022 3:28 PM CDT Problem: Adult Inpatient Plan of Care Goal: OT- Goal Description: OT Plan of Care Date of Initial Evaluation: 04/07/2022 Patient to be seen by Occupational Therapy 2 to 3 x/week to address impairments and functional limitations. Treatments to include: ADL's, Balance training, Endurance training, Gait, Mobility/Transfers, Neuro re-education, and Safety Precautions: Anterior Hip Precautions (L), Weight Bearing: WBAT, and Fall Goals to be achieved by: 04/14/2022 - Patient will perform lower body bathing and dressing with Stand by assist using adaptive equipment while adhering to hip precautions to be able to complete independently at discharge. - Patient will perform self care transfer to toilet, chair, and tub/shower with Stand by assist to perform functional mobility within the home. - Patient will demo good balance for toileting tasks and clothing management. - Patient will perform all bed mobility while adhering to hip precautions with Modified Independentto be able to complete independently at discharge. - Patient will state all hip precautions independently and follow during ADL training to decrease possibility of dislocation. - Patient will improve AM-PAC score to be greater than or equal to 4 points (predicted level of improvement) to indicate improved overall daily function. Patient stated goal: I want to go back to work and walk normally Outcome: Ongoing (see interventions/notes) OCCUPATIONAL THERAPY INITIAL EVALUATION Recommendations: ? ? Recommendations for floor staff include sit <> stand transfer and requires Minimal assistwith Gait belt and Wheeled walker ??? At discharge from Acute care facility, it appears that patient would benefit from SNF with continued therapy v. with continued therapy due to Difficulty With Transfers, Balance Deficits, and Decreased Ability To Perform ADLs ??? DME recommendations include:Wheeled walker ??? Activity recommendations communicated with DORINDA Benedict. Assessment: ?? Significant occupational therapist findings with this patient include Weakness, Pain, Decreased endurance, Decreased strength, Impaired motor control, Impaired balance, Impaired coordination, Impaired gait, and Weight Bearing status that leads to functional limitations including decreased ability to complete ADLs independently. ?? This represents a functional decline that requires acute OT intervention. Patient will benefit from occupational therapy to address these deficits during their hospitalization. ?? Strengths of this patient include Good participation/motivation and Independent prior to admission. ?? Anticipate patient will progress toward stated goals with therapeutic intervention. ?? Next session plan to continue POC. Pt. is a 86 y.o. female admitted 04/07/2022 for L DEEDEE. Occupational Therapy was ordered on 04/07/2022for Eval and Treat. Patient was seen 04/07/2022. 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 Past Surgical History: has a past surgical history that includes Tonsillectomy. Number of Falls in the Previous Year: 0 All charges entered today are appropriate and separate from each other. OT Eval /Treat Visit and Timing Start Time: 1442 Stop Time: 1458 Time Calculation (min): 16 min OT Received On: 04/07/22 Type of visit: Evaluation OT Evaluation (Moderate) Time Entry: 16 OT Eval /Treat General Information Patient Profile Reviewed: yes Pertinent History of Current Functional Problem: left anterior approach TKA Onset of Illness/Injury or Date of Surgery: 04/07/22 Referring Physician: Hedy General Observations of Patient: Patient sitting in recliner with head in hand feeling nauseous when therapy entered. O2 sats at 97% on room air. Subjective Information: I feel like someone beat me up. R: Number Pain Rating: Rest*: 0 R: Number Pain Rating: Activity*: 0 Existing Precautions/Restrictions: fall, L anterior hip precautions, weight bearing (Safety) Left Lower Extremity (Weight-bearing Status): weight-bearing as tolerated (WBAT) Safety Interventions Safety Promotion/Fall Prevention: nonskid shoes/slippers when out of bed, fall reduction program maintained All Alarms: alarm(s) activated and audible Living Environment People in Home: alone Current Living Arrangements: home/apartment/condo Home Accessibility: stairs to enter home, stairs within home, 1 story Living Arrangement Comments: Patient reports she does the cooking, cleaning and laundry. Patient reports she drives. Stairs Within Home, Primary Stairs, Within Home, Primary: Basement laundry Number of Stairs, Within Home, Primary: eight Stair Railings, Within Home, Primary: railings on both sides of stairs Home Main Entrance Number of Stairs, Main Entrance: four Stair Railings, Main Entrance: railings on both sides of stairs Disability/Function Hearing Difficulty or Deaf: no Wear Glasses or Blind: yes Vision Management: Patient wears glasses Walking or Climbing Stairs Difficulty: none Dressing/Bathing Difficulty: no (Patient has a tub/shower and a shower chair that she doesn't use.) Doing Errands Independently Difficulty (such as shopping): no Equipment Currently Used at Home: shower chair Comments: Patient reports that she would like a walker to take home Cognition Affect/Mental Status (Cognition): WFL Orientation Status (Cognition): oriented x 4 Follows Commands (Cognition): follows two-step commands, WFL ROM ROM Upper Right Extremity: no ROM deficits were identified ROM Upper Left Extremity: no ROM deficits were identified Comment, General Range of Motion: BUE AROM grossly WFL Strength Comprehensive (MMT) General Manual Muscle Testing (MMT) Assessment: no strength deficits identified Comment, General Manual Muscle Testing (MMT) Assessment: 4-/5 BUE grossly Sit/Stand Transfer Level of Assistance (Sit-Stand Transfers): verbal cues, minimum assist (75% patient effort), set up Level of Assistance (STAND/SIT): verbal cues, minimum assist (75% patient effort), set up Assistive Device (Transfers): walker, front-wheeled, gait belt Comment: Patient required min A and verbal cues to follow hip precuations for sit <> stand with front-wheeled walker. O2 sats stayed at 97% on room air after activity. Balance Balance Assessment: sitting static balance, sitting dynamic balance, sit to stand dynamic balance, standing static balance Static Sitting Balance: WFL Dynamic Sitting Balance: WFL Sit to Stand Dynamic Balance: mild impairment Static Standing Balance: mild impairment Comment, Balance: Patient required front-wheeled walker to maintain balance in standing positions. Functional Outcome Measure Used: [facility]-PAC 6 Clicks Daily Activity How much help from another person does the patient currently need ??? 1.Putting on and taking off lower body clothing? 2 A Lot 2. Bathing (including washing, rinsing, drying?) 2 A Lot 3. Toileting, which includes using toilet, bedpan or urinal? 2 A Lot 4. Putting on and taking off regular upper body clothing? 3 A Little 5. Taking care of personal grooming such as brushing teeth? 3 A Little 6. Eating meals? 4 None Raw Score 16 18 or Less= predictive of discharge to institutional setting 19-24 predictive of discharge to home actual discharge disposition may be impacted by other factors Brendon Grover at al. [employer] of A-PAC ???6 Clicks?? Basic Mobility and Daily Activity Scores with Discharge Destination. PTJ. November 2020 General Comments: Patient states she feels nauseous at the beginning of the therapy session and that she threw up with PT earlier. Patient is still willing to participate in therapy session with OT to answer questions and perform sit <> stand. Patient states she has never had a surgery like her hip surgery before, therefore she would benefit from further ADL training and education on how to adhere to her anterior hip precautions while performing these activities going forward. Patient was left up in chair with indicated alarms after therapy with call light and phone near. SOCO ABBASI, Student I have read and agree with student documentation by Soco Abbasi, OT/s on this date. Review of documentation included: OT Navigator, Care plan documentation, Adult PCS flow sheet, Non-Violent/Non-Self Destructive Restraints flow sheet, Vitals flow sheet, and Education documentation. ELIZABETH LOPEZ OT * Plan of Care - Bernie Schumacher, PT - 04/07/2022 2:50 PM CDT Problem: Adult Inpatient Plan of Care Goal: PT - Goal Description: PT Plan of Care: Date of Initial Evaluation: 04/07/2022 Patient to be seen by Physical Therapy BID. Physical Therapy to address impairments and functional limitations. Treatments to include: Balance training, Endurance training, Gait, Mobility/Transfers, Neuro re-education, Safety, Stairs , and Therex Precautions: Full Code, Hip: anterior hip precautions, Weight Bearing: WBAT, and Fall Goals to be achieved by: 04/14/2022 - Patient will perform supine-sit transfers with Supervision to be able to assist with positioning. - Patient will perform sit-stand transfers with wheeled walker and Stand by assist to be able to complete higher level upright mobility. - Patient will ambulate with least restrictive device for 100 feet with Contact guard assist to be able to facilitate patient access to entire home environment. - Patient will ascend/descend 2 stairs with single rail on right when ascending and Contact guard assist to be able to access main entry of apartment/home. - Patient will improve AM-PAC score to be greater than or equal to 2 points (predicted level of improvement) to indicate improved overall daily function. - Patient will demonstrate hip precautions during functional mobility to promote healing of hip andreduce pain. Patient stated goal: to be able to go shopping Outcome: Ongoing (see interventions/notes) PHYSICAL THERAPY INITIAL EVALUATION Recommendations: Recommendations for floor staff include up with assist and requires Minimal assist with Gait belt and Wheeled walker. At discharge from Acute care facility, it appears that patient would benefit from Home health physical therapy due to Impaired Gait, Difficulty With Transfers, Balance Deficits, and Difficulty With Bed Mobility. DME recommendations include: Wheeled walker The patient qualifies for and requires the use of a wheeled walker Based on the following criteria: significant weakness, or gait abnormality, significant impairment of gait due to pain in the hip following surgery. The patient's mobility deficit can be gonzáles fficiently resolved with the use of the wheeld walker . The patient is able to safely use the wheeled walker . The patient's mobility impairment does not allow the patient to complete mobility related activities of daily living (MRADLs) in a reasonable timeframe or completely without the use of theassistive device (AD). The patient has a mobility limitation that impairs his/her ability to participate in one or more MRADLs, such as bathing and toileting. The patient is at a high risk of morbidity or mortality secondary to attempts to complete MRADLs in the home without an AD. .BERNIE SCHUMACHER, PT Activity recommendations communicated with DORINDA Benedict. Assessment: Significant physical therapist findings with this patient include Pain, Decreased strength, Decreased range of motion, Impaired balance, Impaired gait, and Weight Bearing status that leads to functional limitations including decreased ability to safely ambulate through the house to go to the bathroom. This represents a functional decline that requires acute PT intervention. Patient will benefit fromphysical therapy to address these deficits during their hospitalization. Strengths of this patient include Family support, Good participation/motivation, and Independent prior to admission. Anticipate patient will progress well toward stated goals with therapeutic intervention. Next session plan to progress with ambulation. Pt. is a 86 y.o. female admitted 04/07/2022 for DEEDEE. Physical Therapy was ordered on 04/07/2022 for Eval and Treat. Patient was seen 04/07/2022. 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 Past Surgical History: has a past surgical history that includes Tonsillectomy. Number of Falls in the Previous Year:4 All charges entered today are appropriate and separate from each other. Eval /Treat Visit and Timing Start Time: 1356 Stop Time: 1434 Time Calculation (min): 38 min PT Received On: 04/07/22 Type of visit: Evaluation, Treatment PT Evaluation (Moderate) Time Entry: 15 Treatment Type: Therapeutic Activities Therapeutic Activity Time Entry: Eval /Treat General Information Patient Profile Reviewed: yes Pertinent History of Current Functional Problem: left anterior approach TKA Onset of Illness/Injury or Date of Surgery: 04/07/22 Referring Physician: Heyd General Observations of Patient: patient laying in bed with PIV intact in left UE Subjective Information: I dont know how I feel, quesy but not really any pain. R: Location*: hip, right R: Number Pain Rating: Rest*: 0 R: Number Pain Rating: Activity*: 2 Existing Precautions/Restrictions: fall, hip, weight bearing Extremity Weight-bearing Status: left lower extremity Left Lower Extremity (Weight-bearing Status): weight-bearing as tolerated (WBAT) Safety Interventions Safety Promotion/Fall Prevention: assistive device, bed alarm, chair alarm, lighting adjusted for task/safety, nonskid shoes/slippers when out of bed All Alarms: alarm(s) activated and audible Living Environment People in Home: alone Current Living Arrangements: home/apartment/condo Home Accessibility: stairs to enter home, stairs within home, 1 story (laundry in basement) Primary Care Provided by: self Provides Primary Care For: no one Family Caregiver if Needed: child(angie), adult Family Caregiver Names: Daughter will be staying with her for a while after surgery Stairs Within Home, Primary Stairs, Within Home, Primary: to basement for laundry Number of Stairs, Within Home, Primary: eight Stair Railings, Within Home, Primary: railings on both sides of stairs Home Main Entrance Number of Stairs, Main Entrance: two Stair Railings, Main Entrance: railing on right side (ascending) Disability/Function Hearing Difficulty or Deaf: no Wear Glasses or Blind: yes Vision Management: wears glasses Concentrating, Remembering or Making Decisions Difficulty: no Difficulty Communicating: no Difficulty Eating/Swallowing: no Walking or Climbing Stairs Difficulty: none Dressing/Bathing Difficulty: no Doing Errands Independently Difficulty (such as shopping): no (Independent but difficulty walking throughout the store due to pain) Equipment Currently Used at Home: none Cognition Affect/Mental Status (Cognition): WNL Orientation Status (Cognition): oriented x 4 Follows Commands (Cognition): follows two-step commands Cognitive Function: WFL ROM Comment, General Range of Motion: right LE wfl, left limited hip flexion due to pain, otherwise wflwith respect to hip precautions Strength Comprehensive (MMT) Comment, General Manual Muscle Testing (MMT) Assessment: right LE wfl, left hip flexino 3-/5, knee extension 3+/5, knee flexion 4/5. ankle 4/5 Bed Mobility Bed Mobility: supine-sit Supine-Sit Huson (Bed Mobility): set up, verbal cues, 1 person assist, moderate assist (50% patient effort) Assistive Device (Bed Mobility): bed rails Comment (Bed Mobility): verbal cues for sequencing and mod assist to elevate trunk and move left leg to edge of bed Bed/Chair Transfer Bed-Chair Level of Assistance: set up, verbal cues, contact guard, 1 person assist Bed to Chair Distance: 3 steps Assistive Device (Bed-Chair Transfers): walker, front-wheeled, gait belt Comment: verbal cue sfor sequencing and walker placement, cues to push off bed and to reach back for chair. Sit/Stand Transfer Level of Assistance (Sit-Stand Transfers): verbal cues, contact guard Level of Assistance (STAND/SIT): verbal cues, minimum assist (75% patient effort), 1 person assist Assistive Device (Transfers): walker, front-wheeled, gait belt Comment: verbal cues to reach back for chair and cues to scoot left leg forward to decrease pain Gait Mobility Huson Level (Gait): set up, verbal cues, contact guard Assistive Device (Gait): walker, front-wheeled, gait belt Distance in Feet (Gait): 3 steps Pattern (Gait): step-to Deviations/Abnormal Patterns (Gait): antalgic, left, decreased heel strike, decreased step length, decreased weight shifting Comment: patient required cues for sequencing and walker placement. patient became nauseous and asked to go to chair. Mobility Exercises and addl. Comments Comment (Therapeutic Exercise): educated patient on anterior hip precautions and why she needs to adhere to them. Educated on use of walker and sequencing for gait and transfers. Balance Balance Assessment: sitting static balance, sit to stand dynamic balance, sitting dynamic balance, standing static balance, standing dynamic balance Static Sitting Balance: WFL Dynamic Sitting Balance: WFL Sit to Stand Dynamic Balance: mild impairment Static Standing Balance: mild impairment Dynamic Standing Balance: mild impairment Functional [facility]?? Basic Mobility Inpatient Short Form How much help from another person does the patient currently need??? 1. Turning from your back to your side while in a flat bed without using bedrails? 3 A Little 2. Moving from lying on your back to sitting on the side of a flat bed without using bedrails? 3 A Little 3. Moving to and from a bed to a chair (including a wheelchair)? 3 A Little 4. Standing up from a chair using your arms (e.g. wheelchair or bedside chair)? 3 A Little 5. To walk in hospital room? 3 A Little 6. Climbing 3-5 steps with a railing? 1 Unable Raw Score 16 16 or Less = predictive of discharge to an institutional setting. 17-24 = predictive of discharge to home jackeline Hernandez. Association of A-PAC ???6 Clicks?? Basic Mobility and Daily Activity Scores with Discharge Destination. PTJ. November 2020 Patient was left up in chair with indicated alarms after therapy with call light near. BERNIE SCHUMACHER, PT * Plan of Care - Nehal Rosario RN - 04/07/2022 12:04 PM CDT Problem: Adult Inpatient Plan of Care Goal: Plan of Care Review Flowsheets (Taken 04/07/2022 1201) Progress: progress toward functional goals as expected Plan of Care Reviewed With: patient Today's Goal: Pain control Does the patient need assistance with discharge and/or transitioning to the next level of care?: No, no needs anticipated Goal: Absence of Hospital-Acquired Illness or Injury Intervention: Prevent and Manage VTE (Venous Thromboembolism) Risk Flowsheets (Taken 04/07/2022 1201) VTE Prevention/Management: ambulation encouraged compression stockings on Goal: Optimal Comfort and Wellbeing Intervention: Provide Person-Centered Care Flowsheets (Taken 04/07/2022 1201) Trust Relationship/Rapport: care explained choices provided questions encouraged safe/supportive environment facilitated thoughts/feelings acknowledged Problem: Pain Acute Goal: Acceptable Pain Control and Functional Ability Intervention: Develop Pain Management Plan Flowsheets (Taken 04/07/2022 1201) Pain Management Interventions: pain management plan reviewed with patient/caregiver care clustered relaxation techniques promoted quiet environment facilitated Intervention: Prevent or Manage Pain Flowsheets (Taken 04/07/2022 1201) Sensory Stimulation Regulation: relaxation techniques promoted Bowel Elimination Promotion: ambulation promoted adequate fluid intake promoted Sleep/Rest Enhancement: awakenings minimized relaxation techniques promoted Medication Review/Management: medications reviewed Intervention: Optimize Psychosocial Wellbeing Flowsheets (Taken 04/07/2022 1201) Supportive Measures: active listening utilized relaxation techniques promoted self-care encouraged Diversional Activities: television Spiritual Activities Assistance: affirmation provided Problem: Hypertension Comorbidity Goal: Blood Pressure in Desired Range Intervention: Maintain Blood Pressure Management Flowsheets (Taken 04/07/2022 1201) Medication Review/Management: medications reviewed * Interdisciplinary - Marichuy Alejo RN - 04/07/2022 10:21 AM CDT Patient transferred from pacu. C/os of a dull ache. Pedal pulses 2 plus. Admission to follow. * Plan of Care - Annetta Carter RN - 04/07/2022 10:00 AM CDT Patient will be discharge from PACU when criteria has been met. * Plan of Care - Nehal Recinos RN - 04/07/2022 5:41 AM CDT Problem: Adult Inpatient Plan of Care Goal: Plan of Care Review Outcome: Ongoing (see interventions/notes) Flowsheets (Taken 04/07/2022 0540) Progress: progress toward functional goals as expected Plan of Care Reviewed With: patient Today's Goal: pain control Does the patient need assistance with discharge and/or transitioning to the next level of care?: No, no needs anticipated Goal: Absence of Hospital-Acquired Illness or Injury Outcome: Ongoing (see interventions/notes) Intervention: Prevent and Manage VTE (Venous Thromboembolism) Risk Flowsheets (Taken 04/07/2022 0540) VTE Prevention/Management: ambulation encouraged Goal: Optimal Comfort and Wellbeing Outcome: Ongoing (see interventions/notes) Intervention: Provide Person-Centered Care Flowsheets (Taken 04/07/2022 0540) Trust Relationship/Rapport: care explained choices provided Goal: Readiness for Transition of Care Outcome: Ongoing (see interventions/notes) * Padmini Soliz RN - 03/25/2022 8:52 AM CDT SPOKE TO KOLE WITH DR. KNOTT'S OFFICE TO INFORM THAT URINE CULTURE COLLECTED ON 03/19/22 AT [facility] WAS POSITIVE, BUT PATIENT STATED SHE IS NOT TREATING WITH ANTIBIOTIC YET. SHE STATED THAT SHE WOULD FOLLOW UP WITH DR. KNOTT REGARDING THIS INFORMATION. * Padmini Soliz RN - 03/25/2022 8:42 AM CDT [facility] ADULT TEACHING Patient Name: Quin Talley : 1935 [facility]#: [id number] Person Educated Patient Ready to Learn Yes Teaching Method Phone HAVE REQUIRED COVID SWAB TEST ON 04/04/22 [id number], ALONG WITH TYPE AND CROSSMATCH BLOOD DRAW. PROTECT FROM INFECTION AFTERWARDS UNTIL YOUR SURGERY. The Day of Surgery: Call your physician if your physical condition changes (cold, fever, flu). Do not come to the hospital without first calling your physician. Do not eat or drink (no gum, mints, water etc.) unless instructed to do so for at least 8 hours prior to arrival to the hospital. Medications can be taken with a small sip of water. Do not drink any alcohol 24 hours prior to surgery if applicable. Do not smoke for 24 hrs prior to surgery if applicable. Bring CPAP/BIPAP if applicable. Take a shower or bath. Do not apply make-up Wear comfortable, loose fitting clothing Instruction to leave all jewelry at home including wedding/engagement rings or any body piercing jewelry. Leave all valuables at home. Children ages 17 and under must be accompanied by a parent or legal guardian in the hospital at alltimes. Follow your surgeon's instructions for arrival time. If you have questions concerning arrival time,call your surgeon's office. Detailed instructions given for arrival location and parking. Arrange for a responsible person to accompany you, drive you home and stay with you for the first 24 hours following your surgery. If you have not made these arrangements you may be at risk of your surgery being cancelled. Follow directions regarding medications to Take or Hold. It is very important to follow directions from your surgeon's office on Diabetic medication or Blood Thinners. Only 2 adults over the age of 16 will be allowed to accompany you to the [facility]. No children under theage of 16 will be allowed in the [facility] unless they are the patient. If the patient chooses to bring their children under the age of 16, an adult must accompany those children in the surgery waiting room and cannot leave them unattended. During the flu season: refer to the visitation restriction guidelines implemented during that season if applicable. Fall Prevention Teaching The Day of Surgery: ?? Your safety while you are in the hospital is very important to us. Following surgery, you might be at increased risk for falling for several reasons: -The hospital environment is unfamiliar. It???s not the same as being at home -You may be weaker than you realize. -You may be connected to lines or equipment that can cause you to trip. -You may be on medications that make you drowsy or dizzy. We know this can happen especially with pain medication and anesthesia. We want to partner with you in the hospital to make sure you are safe -Please do not feel hesitant to ask for help while in the hospital. You will - need extra help untilyou get stronger especially with walking and using the bathroom. -Pay close attention to what the doctors and nurses tell you about your risk of falling. -A fall can mean a longer hospital stay. Also, injuries from a fall can affect your health for the rest of your life. Some things the nurses may do to keep you safe are: -Have you use the call light for help whenever you get out of bed. -Wear non-skid slippers to keep you from slipping on the floors -Use a special belt that wraps around your waist so we can help steady you when you walk -Activate an alarm on your bed so we know if you are getting up in case you forget to use your calllight -Stay in the bathroom with you in case you become dizzy or light headed Patient Response: Verbalizes Understanding Patient assessed for speech and language assistant during the preop interview and appropriate interventions taken if applicable. documented in this encounter Plan of Treatment Not on file documented as of this encounter Procedures Procedure Name Priority Date/Time Associated Diagnosis Comments CBC WITH AUTO DIFFERENTIAL Routine 04/08/2022 4:02 AM CDT PROTIME (PT) (PROTHROMBIN TIME) Routine 04/08/2022 4:02 AM CDT COMPLETE BLOOD COUNT (CBC) WITH DIFF Routine 04/08/2022 4:02 AM CDT BASIC METABOLIC PANEL W/ CALCIUM TOTAL Routine 04/08/2022 4:02 AM CDT APTT (PTT) STAT 04/07/2022 11:04 AM CDT PROTIME (PT) (PROTHROMBIN TIME) STAT 04/07/2022 11:04 AM CDT XR PELVIS AP PORT STAT 04/07/2022 9:5 7 AM CDT PATHOLOGY SURGICAL Routine 04/07/2022 9: 16 AM CDT XR SURGICAL EXAM Routine 04/07/2022 9:14 AM CDT TOTAL HIP ARTHROPLASTY 04/07/2022 7:09 AM CDT PRIMARY OSTEOARTHRITIS OF LEFT HIP Special Needs 5'4 179#, VACC. W/ BOOST X2, HX AFIB AND ROLLS BAKER WARFARIN, TO HOLD 5 DAYS PRIOR TO SURGERY, PT AND PTT ON ADM. TO DS. + URINE CULTURE ON 03/22, OFFICE NOTIFIED ON 03/25. ABO/RH (D) RECHECK Routine 04/07/2022 6: 20 AM CDT Pre-op testing URINALYSIS REFLEX IF INDICATED BY ABNORMAL RESULTS STAT 04/07/2022 5:34 AM CDT CULTURE, URINE Routine 04/07/2022 5:34 AM CDT documented in this encounter Results * (ABNORMAL) CBC with Auto Differential (04/08/2022 4:02 AM CDT) WBC 9.03 4.00 - 12.00 10(3)/mcL 04/08/2022 6:55 AM CDT [facility] RBC 3.51(L) 3.80 - 5.30 10(6)/mcL 04/08/2022 6:55 AM CDT [facility] HEMOGLOBIN (HGB) 9.3(L) 12.0 - 15.8 g/dL 04/08/2022 6:55 AM CDT [facility] HEMATOCRIT (HCT) 30.2(L) 36.0 - 47.0 % 04/08/2022 6:55 AM CDT [facility] MCV 86.0 82.0 - 96.0 fL 04/08/2022 6:55 AM CDT [facility] MCH 26.5 26.0 - 34.0 pg 04/08/2022 6:55 AM CDT [facility] MCHC 30.8(L) 31.0 - 36.0 g/dL 04/08/2022 6:55 AM CDT [facility] PLATELET COUNT 160 140 - 440 10(3)/mcL 04/08/2022 6:55 AM CDT [facility] RDW 14.3 11.8 - 15.5 % 04/08/2022 6:55 AM CDT [facility] MPV 10.5 9.7 - 12.4 fL 04/08/2022 6:55 AM CDT [facility] NEUTROPHILS 88.2(H) 47.0 - 73.0 % 04/08/2022 6:55 AM CDT [facility] LYMPHOCYTES 6.1(L) 18.0 - 42.0 % 04/08/2022 6:55 AM CDT [facility] MONOCYTES 5.6 4.0 - 12.0 % 04/08/2022 6:55 AM CDT [facility] EOSINOPHILS 0.0 0.0 - 5.0 % 04/08/2022 6:55 AM CDT [facility] BASOPHILS 0.1 0.0 - 1.0 % 04/08/2022 6:55 AM CDT [facility] ABSOLUTE NEUTROPHILS 7.96(H) 1.60 - 7.70 10(3)/[facility] 04/08/2022 6:55 AM CDT [facility] ABSOLUTE LYMPHOCYTES 0.55(L) 1.30 - 3.20 10(3)/[facility] 04/08/2022 6:55 AM CDT [facility] ABSOLUTE MONOCYTES 0.51 0.20 - 1.00 10(3)/[facility] 04/08/2022 6:55 AM CDT [facility] ABSOLUTE EOSINOPHIL 0.00 0.00 - 0.40 10(3)/[facility] 04/08/2022 6:55 AM CDT [facility] ABSOLUTE BASOPHILS 0.01 0.00 - 0.10 10(3)/[facility] 04/08/2022 6:55 AM CDT [facility] NRBC PER 100 WBC 0 04/08/20 6:55 AM CDT [facility] RESULTS ARE CONSISTENT WITH PERIPHERAL SMEAR REVIEW Yes 04/08/2022 6:55 AM CDT [facility] Blood Venipuncture / Unknown 04/08/2022 4:02 AM CDT 04/08/2022 5:07 AM CDT us Kami Lyons PAC HEMATOLOGY ORDERABLES Fin al Result [facility] [address] [place] [address] * Protime (PT) (Prothrombin Time) (04/08/2022 4:02 AM CDT) Only the most recent of2 resultswithin the time period is included. Pathologist [facility] PROTIME-PATIENT 13.9 11.6 - 14.8 sec 04/08/2022 5:34 AM CDT [facility] INR 1.1 0.9 - 1.2 04/08/2022 5:34 AM CDT [facility] Comment: Therapeutic Ranges INR = 2.0-3.0: Venous thromb, atrial fib, pul embolism, tissue heart valve, ami. INR = 2.5-3.5: Mechanical heart valve Critical value for INR is >/= 4.5 Blood Venipuncture / Unknown 04/08/2022 4:02 AM CDT 04/08/2022 5:07 AM CDT us Kami Lyons PAC HEMATOLOGY ORDERABLES Fin al Result [facility] [address] [place] [address] * (ABNORMAL) BMP with Ca, Total (04/08/2022 4:02 AM CDT) Pathologist [facility] SODIUM 131(L) 136 - 144 mmol/L 04/08/2022 5:27 AM CDT [facility] POTASSIUM 3.9 3.5 - 5.1 mmol/L 04/08/2022 5:27 AM CDT [facility] CHLORIDE 98(L) 100 - 110 mmol/L 04/08/2022 5:27 AM CDT [facility] CO2, VENOUS 26 22 - 32 mmol/L 04/08/2022 5:27 AM CDT [facility] ANION GAP 10.9 8.0 - 20.0 mmol/L 04/08/2022 5:27 AM CDT [facility] GLUCOSE 133(H) 70 - 99 mg/dL 04/08/2022 5:27 AM CDT [facility] BUN 22 8 - 23 mg/dL 04/08/2022 5:27 AM CDT [facility] CREATININE, BLOOD 1.44(H) 0.60 - 1.10 mg/dL 04/08/2022 5:27 AM CDT [facility] BUN/CREATININE RATIO 15 12 - 20 ratio 04/08/2022 5:27 AM CDT [facility] CALCIUM 8.0(L) 8.9 - 10.3 mg/dL 04/08/2022 5:27 AM CDT [facility] GFR, EST. NONAFRICAN 35(L) >=60 04/08/2022 5:27 AM CDT [facility] GFR, EST. 42(L) >=60 04/08/2022 5:27 AM CDT [facility] Comment: Creatinine Clearance is the preferred criteria for selecting drug dose adjustments in renally impaired patients. ??The GFR is provided as additional pertinent clinical information. GFR is reported in mL/min/1.73 sq m. HAS THE PATIENT BEEN FASTING? No 04/08/2022 5:27 AM CDT [facility] Blood Venipuncture / Unknown 04/08/2022 4:02 AM CDT 04/08/2022 5:07 AM CDT Kami Lyons PAC CHEMISTRY ORDERABLES Noris l Result [facility] [address] [place] [address] * APTT (PTT) (04/07/2022 11:04 AM CDT) PTT 31 24 - 36 sec 04/07/2022 11:30 AM CDT [facility] Blood Venipuncture / Unknown 04/07/2022 11:04 AM CDT 04/07/2022 11:14 AM CDT Narrative [facility] - 04/07/2022 11:30 AM CDT Therapeutic range for unfractionated heparin at 0.3-0.7 U/mL is an aPTT value in the range of 71-100 seconds. Critical value for the PTT test is >= 122 seconds. us Herber Knott MD HEMATOLOGY ORDERABLES Final Re sult [facility] [facility] [place] [address] * XR PELVIS AP PORT (04/07/2022 9:57 AM CDT) Anatomical Region Laterality Modality Abdomen, Pelvis N/A Digital Radiogra phy 04/07/2022 10:3 4 AM CDT Impressions 04/07/2022 10:37 AM CDT IMPRESSION: Recent postoperative changes from left hip arthroplasty. Narrative 04/07/2022 10:37 AM CDT EXAM DESCRIPTION: ?? XR PELVIS AP PORT REASON FOR STUDY: ?? s/p L DEEDEE TECHNIQUE: Frontal radiograph ??of the pelvis was obtained. COMPARISON: ?? None available FINDINGS: ??There are recent postoperative changes from left hip arthroplasty projecting in expected position. ??Postsurgical gas and soft tissue swelling are seen in the operative bed. ??No periprosthetic fracture. There is moderate right hip osteoarthritis. THIS IS AN ELECTRONICALLY VERIFIED FINAL REPORT 04/07/2022 10:34 AM - Electronically signed by ??Marcos Marquez M.D. KN: DESHAWN D: ??04/07/2022 10:34 AM T: ??04/07/2022 10:34 AM Report ID: [id number] Reading Location: ??[id number] Procedure Note Marcos Marquez MD - 04/07/2022 EXAM DESCRIPTION: XR PELVIS AP PORT REASON FOR STUDY: s/p L DEEDEE TECHNIQUE: Frontal radiograph of the pelvis was obtained. COMPARISON: None available FINDINGS: There are recent postoperative changes from left hip arthroplasty projecting in expected position. Postsurgical gas and soft tissue swelling are seen in the operative bed. No periprosthetic fracture. There is moderate right hip osteoarthritis. THIS IS AN ELECTRONICALLY VERIFIED FINAL REPORT 04/07/2022 10:34 AM - Electronically signed by Marcos Marquez M.D. KN: KN Report ID: [id number] Reading Location: [id number] IMPRESSION: Recent postoperative changes from left hip arthroplasty. us Kami Lyons PAC IMG DIAGNOSTIC ORDERABLES Final Result * Pathology Surgical (04/07/2022 9:16 AM CDT) Case Report Surgical Pathology Report ? Case: [id number] ? Authorizing Provider: ??Herber Knott MD ?Collected: ? 04/07/2022 09:16 AM ? [facility] ? Received: ?04/07/2022 10:57 AM ? [facility] ? Main OR ? Pathologist: ? Duncan Dillon MD ? Specimen: ?Hip, DEBRIDED BONE AND TISSUE, LEFT HIP ? 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 - HYPOCELLULAR MARROW. - NEGATIVE FOR MALIGNANCY OR SIGNIFICANT INFLAMMATION. 04/09/2022 8:57 AM [facility] Pre-Operative Diagnosis PRIMARY OSTEOARTHRITIS OF LEFT HIP 04/09/2022 8:57 AM T [facility] Gross Description A. DEBRIDED BONE AND TISSUE, LEFT HIP The specimen presents in a single formalin container for gross and microscopic examination, labeled with the patient's name, Quin Talley, and designated debrided bone and tissue left head. The specimen consist of a femoral head weighing 85 grams and measures up to 8 cm in diameter and has a maximum thickness of 4 cm. The femoral neck is attached and has a flat bony-hard resection margin measuring 3 x 3.5 x 1.4 cm. There is an osteophyte formation around the neck of the femoral head and on the surface of the femoral head there are areas of eburnation. Digital Design Engineer sample will be submitted in cassette A1 after proper fixation and decalcification. KS/sb 04/09/2022 8:57 AM T [facility] Microscopic Description Microscopic examination was performed which supports the final diagnosis. All control tissues stained appropriately. 04/09/2022 8:57 AM CDT [facility] Tissue HIP REGION STRUCTURE / Unknown 04/07/2022 9:16 AM CDT 04/07/2022 10:57 AM CDT us Herber Knott MD PATHOLOGY/CYTOLOGY ORDERABLES Final Result [facility] [address] [place] [address] * XR SURGICAL EXAM (04/07/2022 9:14 AM CDT) Anatomical Region Laterality Modality BODY N/A Radio Fluoroscop y 04/08/2022 9:29 AM CDT Impressions 04/08/2022 9:32 AM CDT IMPRESSION: ?? 1. ?? Intraoperative fluoroscopic image guidance utilized during a left hip arthroplasty. ??Please see operative report for further details. Narrative 04/08/2022 9:32 AM CDT EXAM DESCRIPTION: ?? XR SURGICAL EXAM REASON FOR STUDY: ?? Left hip pain. ??Left hip arthroplasty today. COMPARISON: ?? None available FLUOROSCOPY TIME/IMAGE COUNT: Fluoro Time: ?? 8.5 seconds Image Count: ?? 5 Views: 1 AP view of the hip TECHNIQUE: ?? Intraoperative fluoroscopic images were obtained during a left hip arthroplasty. FINDINGS: ??Initial images show placement the acetabular cup component of the prosthesis. ??Subsequent images show the femoral component of the prosthesis. THIS IS AN ELECTRONICALLY VERIFIED FINAL REPORT 04/08/2022 9:29 AM - Electronically signed by ??Jagdish Ratliff M.D. LB: MARISSA D: ??04/08/2022 9:29 AM T: ??04/08/2022 9:29 AM Report ID: [id number] Reading Location: ??[id number] Procedure Note Jagdish Ratliff MD - 04/08/2022 EXAM DESCRIPTION: XR SURGICAL EXAM REASON FOR STUDY: Left hip pain. Left hip arthroplasty today. COMPARISON: None available FLUOROSCOPY TIME/IMAGE COUNT: Fluoro Time: 8.5 seconds Image Count: 5 Views: 1 AP view of the hip TECHNIQUE: Intraoperative fluoroscopic images were obtained during a left hip arthroplasty. FINDINGS: Initial images show placement the acetabular cup component of the prosthesis. Subsequent images show the femoral component of the prosthesis. THIS IS AN ELECTRONICALLY VERIFIED FINAL REPORT 04/08/2022 9:29 AM - Electronically signed by Jagdish Ratliff M.D. LB: MARISSA Report ID: [id number] Reading Location: [id number] IMPRESSION: 1. Intraoperative fluoroscopic image guidance utilized during a left hip arthroplasty. Please see operative report for further details. Herber Knott MD IMG DIAGNOSTIC ORDERABLES Noris l Result * ABO/RH (D) Recheck (04/07/2022 6:20 AM CDT) ABO TYPING O 04/07/2022 7:20 AM CDT [facility] RH Positive 04/07/2022 7:20 AM CDT [facility] Blood Venipuncture / Unknown 04/07/2022 6:20 AM CDT 04/07/2022 6:24 AM CDT Duncan Dillon MD BLOOD BANK ORDERABLES Final Result [facility] [place] [address] * Culture, Urine (04/07/2022 5:34 AM CDT) [facility] CULTURE RESULTS MIXED GROWTH OF ONE OR MORE DISTAL URETHRAL CONTAMINANTS 04/08/2022 1:28 PM CDT [facility] Urine URINE SPECIMEN COLLECTION, CLEAN CATCH / Unknown Non-Phlebotomy Collection / Unknown 04/07/2022 5:34 AM CDT 04/07/2022 5:41 AM CDT Herber Knott MD MICROBIOLOGY - GENERAL ORDERAB LES Final Result [facility] [address] [place] [address], * (ABNORMAL) URINALYSIS REFLEX IF INDICATED BY ABNORMAL RESULTS (04/07/2022 5:34 AM CDT) SPECIFIC GRAVITY 1.015 1.003 - 1.030 04/07/2022 6:22 AM CDT [facility] URINE PH 5.0 5.0 - 9.0 04/07/2022 6:22 AM CDT [facility] WBC ESTERASE 500 /uL(A) Negative 04/07/2022 6:22 AM CDT [facility] NITRITE Negative Negative 04/07/2022 6:22 AM CDT [facility] PROTEIN, RANDOM URINE Negative Negative 04/07/2022 6:22 AM CDT [facility] URINE GLUCOSE, QUAL Negative Negative 04/07/2022 6:22 AM CDT [facility] URINE KETONES Negative Negative 04/07/2022 6:22 AM CDT [facility] UROBILINOGEN Normal Normal mg/dL 04/07/2022 6:22 AM CDT [facility] URINE BLOOD Negative Negative bill/ul 04/07/2022 6:22 AM CDT [facility] URINALYSIS COLOR Yellow 04/07/20 6:22 AM CDT [facility] URINALYSIS CLARITY Slightly Cloudy 04/07/2022 6:22 AM CDT [facility] WBC (Urine) 11-20(A) Negative, 0-5 /hpf 04/07/2022 6:22 AM CDT [facility] URINE RBC'S 0-2 Negative, 0-2 /hpf 04/07/2022 6:22 AM CDT [facility] EPITHELIAL CELLS Moderate amount /lpf 04/07/2022 6:22 AM CDT [facility] BACTERIA, URINE Many(A) Negative /hpf 04/07/2022 6:22 AM CDT [facility] Urine URINE SPECIMEN COLLECTION, CLEAN CATCH / Unknown Non-Phlebotomy Collection / Unknown 04/07/2022 5:34 AM CDT 04/07/2022 5:41 AM CDT Herber Knott MD URINE ORDERABLES Final Result [facility] [facility] [place] [address] documented in this encounter Visit Diagnoses Not on filedocumented in this encounter Administered Medications Inactive Administered Medications - up to 3 most recent administrations Medication Order MAR Action Action Date Dose Rate Site 0.9 % sodium chloride solution at 125 mL/hr, Intravenous, CONTINUOUS, Starting on Wed04/07/22 at 1100, Until Wed04/08/22 at 1849, POST-OP (NURSING UNIT) New Bag 04/08/2022 3:55 AM CDT 125 mL/hr New Bag 04/07/2022 8:00 PM CDT 125 mL/hr New Bag 04/07/2022 11:26 AM CDT 125 mL/hr acetaminophen (TYLENOL) tablet 975 mg 975 mg, Oral, ONCE, 1 dose, On Wed04/07/22 at 0600, Maximum dose of acetaminophen is 4000 mg from all sources in 24 hours., PRE-OP (SURGERY) Given 04/07/2022 6:08 AM CDT 975 mg ACETAMINOPHEN 325 MG PO TABS 1 dose, Starting on Wed04/07/22 at 0545, Until Wed04/07/22 at 0608, Created by cabinet override ascorbic acid tablet 500 mg 500 mg, Oral, DAILY, First dose on Wed04/07/22 at 1100, Until Discontinued Given 04/08/2022 8:23 AM CDT 500 mg Given 04/07/2022 11:22 AM CDT 500 mg bupivacaine (PF) 0.5 % 100 mg, ketorolac 30 MG/ML 30 mg, morphine sulfate (PF) 10 MG/ML 10 mg, EPINEPHrine (Anaphylaxis) 0.3 mg solution Injection, ONCE, 1 dose, On Wed04/07/22 at 0730, Total Volume in NS = 100 mL Given 04/07/2022 8:50 AM CDT Operative Site ceFAZolin (ANCEF) injection 2 g 2 g, Intravenous, EVERY 8 HOURS, 2 doses, First dose on Wed04/07/22 at 1530, Last dose on Wed04/07/22 at 2330, Administer over 5 Minutes, POST-OP (NURSING UNIT), Indications: Perioperative PharmacoprophylaxisIndications:Periop erative Pharmacoprophylaxis Given 04/07/2022 10:30 PM CDT 2 g Given 04/07/2022 4:18 PM CDT 2 g celecoxib (CeleBREX) capsule 200 mg 200 mg, Oral, 2 TIMES DAILY, First dose on Wed04/07/22 at 1100, Until Discontinued, POST-OP (NURSING UNIT) Given 04/07/2022 10:00 PM CDT 200 mg Given 04/07/2022 11:22 AM CDT 200 mg celecoxib (CeleBREX) capsule 400 mg 400 mg, Oral, ONCE, 1 dose, On Wed04/07/22 at 0600, Give in Pre-op holding area. Do not substitute., PRE-OP (SURGERY) Given 04/07/2022 6:08 AM CDT 400 mg CELECOXIB 200 MG PO CAPS 1 dose, Starting on Wed04/07/22 at 0545, Until Wed04/07/22 at 0608, Created by cabinet override dexamethasone (DECADRON) injection 8 mg 8 mg, Intravenous, ONCE, 1 dose, On Wed04/07/22 at 0600, PRE-OP (SURGERY) Given 04/07/2022 6:08 AM CDT 8 mg DEXAMETHASONE SODIUM PHOSPHATE 4 MG/ML IJ SOLN 1 dose, Starting on Wed04/07/22 at 0545, Until Wed04/07/22 at 0608, Created by cabinet override enoxaparin (LOVENOX) injection 40 mg 40 mg, Subcutaneous, EVERY 24 HOURS SCHEDULED (Daily), First dose on Wed04/07/22 at 2200, Until Discontinued, POST-OP (NURSING UNIT) Given 04/08/2022 9:00 AM CDT 40 mg Left Abdomen famotidine (PEPCID) tablet 20 mg 20 mg, Oral, 2 TIMES DAILY, First dose on Wed04/07/22 at 1100, Until Discontinued, POST-OP (NURSING UNIT), Indications: Stress Ulcer ProphylaxisIndications:Stress Ulcer Prophylaxis Given 04/08/2022 8:23 AM CDT 20 mg Given 04/07/2022 11:22 AM CDT 20 mg fentaNYL (PF) (SUBLIMAZE) injection 25 mcg 25 mcg, Intravenous, ONCE, 1 dose, On Wed04/07/22 at 1030 Given 04/07/2022 9:56 AM CDT 25 mcg ferrous sulfate tablet 325 mg 325 mg, Oral, DAILY, First dose on Wed04/07/22 at 1100, Until Discontinued, Do not crush., POST-OP (NURSING UNIT) Given 04/08/2022 8:23 AM CDT 325 mg Given 04/07/2022 11:22 AM CDT 325 mg hydroCHLOROthiazide tablet 25 mg 25 mg, Oral, DAILY, First dose on Wed04/07/22 at 1100, Until Discontinued, POST-OP (NURSING UNIT) Given 04/08/2022 8:23 AM CDT 25 mg Given 04/07/2022 11:22 AM CDT 25 mg ketorolac (TORADOL) injection 15 mg 15 mg, Intravenous, EVERY 6 HOURS, 2 doses, First dose on Wed04/07/22 at 1100, Last dose on Wed04/07/22 at 1700, POST-OP (NURSING UNIT) Given 04/07/2022 5: 14 PM CDT 15 mg Given 04/07/2022 11:22 AM CDT 15 mg lactated ringers infusion at 20 mL/hr, Intravenous, CONTINUOUS, Starting on Wed04/07/22 at 0600, Until Wed04/08/22 at 1849, PRE-OP (SURGERY) New Bag 04/07/2022 6:09 AM CDT 20 mL/hr 20 mL/hr lidocaine-EPINEPHrine 1 %-1:[id number] injection ONCE (in OR), Starting on Wed04/07/22 at 0921, Until Wed04/07/22 at 0934, INTRA-OP Given 04/07/2022 9:21 AM CDT 20 mL Operative Site losartan (COZAAR) tablet 100 mg 100 mg, Oral, DAILY, First dose on Wed04/07/22 at 1100, Until Discontinued, POST-OP (NURSING UNIT) Given 04/08/2022 8:23 AM CDT 100 mg Given 04/07/2022 11:22 AM CDT 100 mg ondansetron (ZOFRAN) injection 4 mg 4 mg, Intravenous, EVERY 6 HOURS PRN, Starting on Wed04/07/22 at 1016, Until Wed04/08/22 at 1849, Nausea - 1st line, 1. First Line Antiemetic. 2. Use Injection only if patient unable to tolerate oral medications., POST-OP (NURSING UNIT) Given 04/07/2022 1:58 PM CDT 4 mg ondansetron (ZOFRAN) injection 4 mg 4 mg, Intravenous, ONCE, 1 dose, On Wed04/07/22 at 0600, PRE-OP (SURGERY) Given 04/07/2022 6:08 AM CDT 4 mg ondansetron (ZOFRAN-ODT) disintegrating tablet 4 mg 4 mg, Oral, EVERY 6 HOURS PRN, Starting on Wed04/07/22 at 1016, Until Wed04/08/22 at 1849, Nausea - 1st line, 1. First Line Antiemetic. 2. Use PO form unless unable to tolerate PO medications, then use Injection, POST-OP (NURSING UNIT) ONDANSETRON HCL 4 MG/2ML IJ SOLN 1 dose, Starting on Wed04/07/22 at 0545, Until Wed04/07/22 at 0608, Created by cabinet masoudide oxyCODONE (OxyCONTIN) ER tablet 20 mg 20 mg, Oral, ONCE, 1 dose, On Wed04/07/22 at 0600, Do not crush. Give in holding area. Do not Substitute, PRE-OP (SURGERY) Given 04/07/2022 7:28 AM CDT 20 mg polymyxin B injection ONCE (in OR), Starting on Wed04/07/22 at 0845, Until Wed04/07/22 at 0934, INTRA-OP Given 04/07/2022 8:45 AM CDT 5,000 Units Operative Site Prochlorperazine Edisylate (COMPAZINE) injection 10 mg 10 mg, Intravenous, EVERY 6 HOURS PRN, Starting on Wed04/07/22 at 1016, Until Wed04/08/22 at 1849, Nausea - 2nd line, Second Line Antiemetic Give if nausea/vomiting recurs after ondansetron (if ordered)., POST-OP (NURSING UNIT) Given 04/07/2022 2:35 PM CDT 10 mg scopolamine (TRANSDERM-SCOP) 1 MG/3DAYS patch 1 mg 1 mg (1 Patch), Transdermal, ONCE, 1 dose, On Wed04/07/22 at 1730, Administer over 24 Hours, 1.5 mg patch delivers 1 mg over 3 days Patch Applied 04/07/2022 5:14 PM CDT 1 mg Behind the ear senna-docusate (SENOKOT S) 8.6-50 MG per tablet 2 Tablet 2 Tablet, Oral, 2 TIMES DAILY, First dose on Wed04/07/22 at 1100, Until Discontinued, Hold for loose stools (loose, liquid, mucoid, soft, watery stool that takes the shape of the container) or greater than 2 moderate or larger stools in 24hrs, POST-OP (NURSING UNIT) Given 04/08/2022 8:24 AM CDT 2 Tablets Given 04/07/2022 11:22 AM CDT 2 Tablets sodium chloride (irrigation) 0.9 % irrigation ONCE (in OR), Starting on Wed04/07/22 at 0921, Until Wed04/07/22 at 0934, INTRA-OP Given 04/07/2022 9:21 AM CDT 1,000 mL Operative Site TRANSDERMAL PATCH ACKNOWLEDGEMENT Miscellaneous, DAILY, First dose on Wed04/07/22 at 1730, Until Discontinued, This order is a communication order only. The patient has a scopolamine transdermal patch. Please use the Acknowledged' MAR action when documenting on the MAR. warfarin (COUMADIN) tablet 4 mg 4 mg, Oral, EVERY EVENING, First dose on Wed04/07/22 at 1800, Until Discontinued, POST-OP (NURSING UNIT) Given 04/07/2022 5:14 PM CDT 4 mg WARFARIN/COUMADIN THERAPY Miscellaneous, EVERY EVENING, First dose on Wed04/07/22 at 1800, Until Discontinued, This order is a communication order only. The patient is receiving Warfarin therapy and having INR values monitored on a routine basis. Please use 'Acknowledge' MAR action to document this on the MAR. documented in this encounter Active and Recently Administered Medications Times are shown in CDT. Scheduled Medication Order 04/06/2022 04/07/2022 04/08/2022 acetaminophen (TYLENOL) tablet 975 mg (COMPLETED) 975 mg, Oral, ONCE, 1 dose, On Wed04/07/22 at 0600, Maximum dose of acetaminophen is 4000 mg from all sources in 24 hours., PRE-OP (SURGERY) 0608 (Given - Provider: Nehal Recinos RN) ascorbic acid tablet 500 mg 500 mg, Oral, DAILY, First dose on Wed04/07/22 at 1100, Until Discontinued 1122 (Given - Provider: Nehal Rosario RN) 0823 (Given - Provider: Mellissa Ruano RN) bupivacaine (PF) 0.5 % 100 mg, ketorolac 30 MG/ML 30 mg, morphine sulfate (PF) 10 MG/ML 10 mg, EPINEPHrine (Anaphylaxis) 0.3 mg solution (COMPLETED) Injection, ONCE, 1 dose, On Wed04/07/22 at 0730, Total Volume in NS = 100 mL 0730 (Due)0850 (Given - Provider: Herber Knott MD) ceFAZolin (ANCEF) injection 2 g (COMPLETED) 2 g, Intravenous, ONCE, 1 dose, On Wed04/07/22 at 0600, Administer over 5 Minutes, INTRA-OP, Indications: Perioperative Pharmacoprophylaxis 0745 (Given - Provider: Pito Sepulveda DO) ceFAZolin (ANCEF) injection 2 g (COMPLETED) 2 g, Intravenous, EVERY 8 HOURS, 2 doses, First dose on Wed04/07/22 at 1530, Last dose on Wed04/07/22 at 2330, Administer over 5 Minutes, POST-OP (NURSING UNIT), Indications: Perioperative Pharmacoprophylaxis 1618 (Given - Provider: Nehal Rosario RN)2230 (Given - Provider: Karan Cruz, DORINDA) celecoxib (CeleBREX) capsule 200 mg (CANCELED) 200 mg, Oral, 2 TIMES DAILY, First dose on Wed04/07/22 at 1100, Until Discontinued, POST-OP (NURSING UNIT) 1122 (Given - Provider: Nehal Rosario, DORINDA)2200 (Given - Provider: Karan Cruz, DORINDA) celecoxib (CeleBREX) capsule 400 mg (COMPLETED) 400 mg, Oral, ONCE, 1 dose, On Wed04/07/22 at 0600, Give in Pre-op holding area. Do not substitute., PRE-OP (SURGERY) 06 (Given - Provider: Nehal Recinos, DORINDA) dexamethasone (DECADRON) injection 8 mg (COMPLETED) 8 mg, Intravenous, ONCE, 1 dose, On Wed04/07/22 at 0600, PRE-OP (SURGERY) 0608 (Given - Provider: Nehal Recinos, RN) enoxaparin (LOVENOX) injection 40 mg 40 mg, Subcutaneous, EVERY 24 HOURS SCHEDULED (Daily), First dose on Wed04/07/22 at 2200, Until Discontinued, POST-OP (NURSING UNIT) 2200 (Not Given - Provider: Karan Cruz, RN - Reason: Patient/family refused) 0900 (Given - Provider: Mellissa Ruano, RN) famotidine (PEPCID) tablet 20 mg 20 mg, Oral, 2 TIMES DAILY, First dose on Wed04/07/22 at 1100, Until Discontinued, POST-OP (NURSING UNIT), Indications: Stress Ulcer Prophylaxis 1122 (Given - Provider: Nehal Rosario, DORINDA)2100 (Not Given - Provider: Karan Cruz, RN - Reason: Patient/family refused) 0823 (Given - Provider: Mellissa Ruano, DORINDA) fentaNYL (PF) (SUBLIMAZE) injection 25 mcg (COMPLETED) 25 mcg, Intravenous, ONCE, 1 dose, On Wed04/07/22 at 1030 0956 (Given - Provider: Annetta Carter, DORINDA) ferrous sulfate tablet 325 mg 325 mg, Oral, DAILY, First dose on Wed04/07/22 at 1100, Until Discontinued, Do not crush., POST-OP (NURSING UNIT) 1122 (Given - Provider: Nehal Rosario, DORINDA) 0823 (Given - Provider: Mellissa Ruano, RN) hydroCHLOROthiazide tablet 25 mg 25 mg, Oral, DAILY, First dose on Wed04/07/22 at 1100, Until Discontinued, POST-OP (NURSING UNIT) 1122 (Given - Provider: Nehal Rosario, DORINDA) 0823 (Given - Provider: Mellissa Ruano, DORINDA) ketorolac (TORADOL) injection 15 mg (COMPLETED) 15 mg, Intravenous, EVERY 6 HOURS, 2 doses, First dose on Wed04/07/22 at 1100, Last dose on Wed04/07/22 at 1700, POST-OP (NURSING UNIT) 1122 (Given - Provider: Nehal Rosario, DORINDA)1714 (Given - Provider: Nehal Rosario, DORINDA) losartan (COZAAR) tablet 100 mg 100 mg, Oral, DAILY, First dose on Wed04/07/22 at 1100, Until Discontinued, POST-OP (NURSING UNIT) 1122 (Given - Provider: Nehal Rosario RN) 0823 (Given - Provider: Mellissa Ruano, RN) ondansetron (ZOFRAN) injection 4 mg (COMPLETED) 4 mg, Intravenous, ONCE, 1 dose, On Wed04/07/22 at 0600, PRE-OP (SURGERY) 0608 (Given - Provider: Nehal Recinos RN) oxyCODONE (OxyCONTIN) ER tablet 20 mg (COMPLETED) 20 mg, Oral, ONCE, 1 dose, On Wed04/07/22 at 0600, Do not crush. Give in holding area. Do not Substitute, PRE-OP (SURGERY) 727 (Given - Provider: Alice Saunders RN - Comment: pre-op before surgery) scopolamine (TRANSDERM-SCOP) 1 MG/3DAYS patch 1 mg 1 mg (1 Patch), Transdermal, ONCE, 1 dose, On Wed04/07/22 at 1730, Administer over 24 Hours, 1.5 mg patch delivers 1 mg over 3 days 1714 (Patch Applied - Provider: Nehal Rosario, DORINDA) 1714 (Patch Removed - Provider: Mellissa Ruano, DORINDA) senna-docusate (SENOKOT S) 8.6-50 MG per tablet 2 Tablet 2 Tablet, Oral, 2 TIMES DAILY, First dose on Wed04/07/22 at 1100, Until Discontinued, Hold for loose stools (loose, liquid, mucoid, soft, watery stool that takes the shape of the container) or greater than 2 moderate or larger stools in 24hrs, POST-OP (NURSING UNIT) 1122 (Given - Provider: Nehal Rosario, DORINDA)2100 (Not Given - Provider: Karan Cruz RN - Reason: Patient/family refused) 0824 (Given - Provider: Mellissa Ruano, DORINDA) TRANSDERMAL PATCH ACKNOWLEDGEMENT Miscellaneous, DAILY, First dose on Wed04/07/22 at 1730, Until Discontinued, This order is a communication order only. The patient has a scopolamine transdermal patch. Please use the Acknowledged' DEC action when documenting on the DEC. 173 (Acknowledged - Provider: Nehal Rosario RN) 0900 (Acknowledged - Provider: Mellissa Ruano, RN) warfarin (COUMADIN) tablet 4 mg 4 mg, Oral, EVERY EVENING, First dose on Wed04/07/22 at 1800, Until Discontinued, POST-OP (NURSING UNIT) 1714 (Given - Provider: Nehal Rosario, DORINDA) WARFARIN/COUMADIN THERAPY Miscellaneous, EVERY EVENING, First dose on Wed04/07/22 at 1800, Until Discontinued, This order is a communication order only. The patient is receiving Warfarin therapy and having INR values monitored on a routine basis. Please use 'Acknowledge' DEC action to document this on the DEC. 1800 (Acknowledged - Provider: Nehal Rosario RN) Continuous Medication Order 04/06/2022 04/07/2022 04/08/2022 0.9 % sodium chloride solution at 125 mL/hr, Intravenous, CONTINUOUS, Starting on Wed04/07/22 at 1100, Until Wed04/08/22 at 1849, POST-OP (NURSING UNIT) 1126 (New Bag - Provider: Nehal Rosario RN)1959 (Stopped - Provider: Karan Cruz, DORINDA)1999 (New Bag - Provider: Karan Cruz, DORINDA) 0354 (Stopped - Provider: Karan Cruz RN)0355 (New Bag - Provider: Karan Cruz, DORINDA)1055 (Stopped - Provider: Mellissa Ruano, DORINDA) lactated ringers infusion at 20 mL/hr, Intravenous, CONTINUOUS, Starting on Wed04/07/22 at 0600, Until Wed04/08/22 at 1849, PRE-OP (SURGERY) 0609 (New Bag - Provider: Nehal Recinos RN)0729 (Continued by Anesthesia - Provider: Pito Sepulveda DO)0951 (Anesthesia Volume Adjustment - Provider: Pito Sepulveda DO)1007 (Stopped - Provider: Annetta Carter RN) PRN Medication Order 04/06/2022 04/07/2022 04/08/2022 bisacodyl suppository 10 mg 10 mg, Rectal, DAILY PRN, Starting on Wed04/07/22 at 1016, Until Wed04/08/22 at 1849, Constipation - 3rd line, Hold for loose stools (loose, liquid, mucoid, soft, watery stool that takes the shape of the container) or greater than 2 moderate or larger stools in 24hrs, POST-OP (NURSING UNIT) calcium carbonate (TUMS) chewable tablet 1,000 mg 1,000 mg, Oral, 3 TIMES DAILY PRN, Starting on Wed04/07/22 at 1016, Until Wed04/08/22 at 1849, Heartburn, Indigestion, POST-OP (NURSING UNIT) diphenhydrAMINE (BENADRYL) capsule 25 mg 25 mg, Oral, EVERY 8 HOURS PRN, Starting on Wed04/07/22 at 1016, Until Wed04/08/22 at 1849, Itching, POST-OP (NURSING UNIT) HYDROcodone-acetaminophen (NORCO) 5-325 MG per tablet 1-2 Tablet 1-2 Tablet, Oral, EVERY 4 HOURS PRN, Starting on Wed04/07/22 at 1016, Until Wed04/08/22 at 1849, Moderate pain or more severe pain if patient requests, Maximum dose of acetaminophen is 4000 mg from all sources in 24 hours.If pain not effectively managed, then contact provider to discuss possibly 1) adding scheduled opioid dosing or non-opioid pain treatments, 2) increasing dosage, or 3) changing to SET UP MECHANIC., POST-OP (NURSING UNIT) lidocaine-EPINEPHrine 1 %-1:[id number] injection (CANCELED) ONCE (in OR), Starting on Wed04/07/22 at 0921, Until Wed04/07/22 at 0934, INTRA-OP 0921 (Given - Provider: Herber Knott MD) magnesium hydroxide (MILK OF MAGNESIA) 400 MG/5ML suspension 30 mL 30 mL, Oral, DAILY PRN, Starting on Wed04/07/22 at 1016, Until Wed04/08/22 at 1849, Constipation - 2nd line, Magnesium hydroxide 400 mg/5 ml = 166.7 mg elemental magnesium/5ml. Hold for loose stools (loose, liquid, mucoid, soft, watery stool that takes the shape of the container) or greater than 2 moderate or larger stools in 24hrs, POST-OP (NURSING UNIT) ondansetron (ZOFRAN) injection 4 mg(Linked Group 1) 4 mg, Intravenous, EVERY 6 HOURS PRN, Starting on Wed04/07/22 at 1016, Until Wed04/08/22 at 1849, Nausea - 1st line, 1. First Line Antiemetic. 2. Use Injection only if patient unable to tolerate oral medications., POST-OP (NURSING UNIT) 1358 (Given - Provider: Nehal Rosario, RN) ondansetron (ZOFRAN-ODT) disintegrating tablet 4 mg(Linked Group 1) 4 mg, Oral, EVERY 6 HOURS PRN, Starting on Wed04/07/22 at 1016, Until Wed04/08/22 at 1849, Nausea - 1st line, 1. First Line Antiemetic. 2. Use PO form unless unable to tolerate PO medications, then use Injection, POST-OP (NURSING UNIT) 1358 (See Alternative - Provider: Nehal Rosario RN) oxyCODONE (ROXICODONE) immediate release tablet 5 mg 5 mg, Oral, EVERY 4 HOURS PRN, Starting on Wed04/07/22 at 1016, Until Wed04/08/22 at 1849, Severe pain, If pain not effectively managed, then contact provider to discuss possibly 1) adding scheduled opioid dosing or non-opioid pain treatments, 2) increasing dosage, or 3) changing to SET UP MECHANIC., POST-OP (NURSING UNIT) polymyxin B injection (CANCELED) ONCE (in OR), Starting on Wed04/07/22 at 0845, Until Wed04/07/22 at 0934, INTRA-OP 0845 (Given - Provider: Herber Knott MD) Prochlorperazine Edisylate (COMPAZINE) injection 10 mg 10 mg, Intravenous, EVERY 6 HOURS PRN, Starting on Wed04/07/22 at 1016, Until Wed04/08/22 at 1849, Nausea - 2nd line, Second Line Antiemetic Give if nausea/vomiting recurs after ondansetron (if ordered)., POST-OP (NURSING UNIT) 1435 (Given - Provider: Nehal Rosario RN) sodium chloride (irrigation) 0.9 % irrigation (CANCELED) ONCE (in OR), Starting on Wed04/07/22 at 0921, Until Wed04/07/22 at 0934, INTRA-OP 0921 (Given - Provider: Herber Knott MD) Linked Groups Order Group 1: ondansetron (ZOFRAN-ODT) disintegrating tablet 4 mgJump to med 4 mg, Oral, EVERY 6 HOURS PRN, Starting on Wed04/07/22 at 1016, Until Wed04/08/22 at 1849, Nausea - 1st line, 1. First Line Antiemetic. 2. Use PO form unless unable to tolerate PO medications, then use Injection, POST-OP (NURSING UNIT) Or ondansetron (ZOFRAN) injection 4 mgJump to med 4 mg, Intravenous, EVERY 6 HOURS PRN, Starting on Wed04/07/22 at 1016, Until Wed04/08/22 at 1849, Nausea - 1st line, 1. First Line Antiemetic. 2. Use Injection only if patient unable to tolerate oral medications., POST-OP (NURSING UNIT) documented in this encounter Care Teams Meter Tester Relationship Specialty Start Date End Date Provider, Not On File [place] PCP - General 03/19/22 04/07/22 documented as of this encounter
--- OUTSIDE RECORDS SUMMARY | 2024-10-22 00:18 | XMS_ITS | Encounter Summary ---
Author Organization [facility] Address [address] [place] [address] Phone Care Team Providers Care Project Management Manager Name Role Phone Denis Platt MD Primary Care Provider [phone] Encounter Details Date Type Department Care Team ([facility] Contact Info) Description 04/09/2022 Plan of Care Documentation [facility] [address] [place] [address] Social History Tobacco Use Types Packs/Day Years [...] on filedocumented in this encounter Care Teams Project Management Manager Relationship Specialty Start Date End Date Denis Platt MD [address], [place] [id number] PCP - General Pediatrics 04/08/22 02/15/24 documented as of this encounter
--- OUTSIDE RECORDS SUMMARY | 2024-10-22 00:18 | XMS_ITS | Encounter Summary ---
Author Organization [facility] Address [address] [place] [address] Phone Care Team Providers Care White Sugar Boiler Name Role Phone Provider, Not On File Primary Care Provider Unav ailable Reason for Referral * Radiology Services (Routine) - Closed Specialty Diagnoses / Procedures Referred By Lyndsey farmer Referred To Contact Radiology Diagnoses Preop examination Procedures EKG 12 LEAD Herber Knott MD Phone: tel: fax: Referral ID Status Reason Start Date Expiration Date Visits Re quested Visits Authorized [id number] Closed 03/19/2022 1 1 Reason for Visit * Radiology Services (Routine) - Closed Specialty Diagnoses / Procedures Referred By Lyndsey farmer Referred To Contact Radiology Diagnoses Preop examination Procedures EKG 12 LEAD Herber Knott MD Phone: tel: fax: Referral ID Status Reason Start Date Expiration Date Visits Re quested Visits Authorized [id number] Closed 03/19/2022 1 1 Encounter Details Date Type Department Care Team (Latest Contact Info) Description 03/19/2022 11:30 AM CDT - 03/19/2022 12:58 PM CDT [facility] [address] [place] [address] Herber Knott MD [address] [place] [address], [address] [place] [address] Discharge Disposition: Discharged to home or Selfcare Social History Tobacco Use Types Packs/Day Years Used Date Smoking Tobacco: Never Assessed Comments Unknown Sex and Gender Information Value Date Recorded Sex Assigned at Not on file Legal Sex Female 11:12 AM CDT Gender Identity Not on file Sexual Orientation Not on file COVID-19 Exposure Response Date Recorded In the last 10 days, have yo u been in contact with someone who was confirmed or suspected to have Coronavirus/COVID-19? No / Unsure 03/19/2022 11:39 AM CDT documented as of this encounter Plan of Treatment Not on file documented as of this encounter Procedures Procedure Name Priority Date/Time Associated Diagnosis Comments EKG 12 LEAD Routine 03/19/2022 1:11 PM CDT Preop examination Preop cardiovascular exam documented in this encounter Results * EKG 12 LEAD (03/19/2022 1:11 PM CDT) Ventricular Rate BPM EXTERNAL EKG Atrial Rate BPM EXTERNAL EKG P-R Interval 140 ms EXTERNAL EKG QRS Duration 132 ms EXTERNAL EKG Q-T Duration 420 ms EXTERNAL EKG QTC CALCULATION 454 ms EXTERNAL EKG P [place] 75 degrees EXTERNAL EKG R [place] -56 degrees EXTERNAL EKG T [place] 53 degrees EXTERNAL EKG 03/19/2022 1:11 PM CDT Impressions EXTERNAL EKG - 03/20/2022 12:47 PM CDT Sinus rhythm Left axis deviation RBBB with left anterior fascicular block Possible anterior infarct - age undetermined Low QRS voltages in precordial leads Comparison Summary: No serial comparison made Summary: Abnormal ECG Confirmed by Giuliano Morrell [id number] on 03/20/2022 12:47:32 PM Narrative Procedure Note Petros Sher MD - 03/20/2022 IMPRESSION: Sinus rhythm Left axis deviation RBBB with left anterior fascicular block Possible anterior infarct - age undetermined Low QRS voltages in precordial leads Comparison Summary: No serial comparison made Summary: Abnormal ECG Confirmed by Giuliano Morrell [id number] on 03/20/2022 12:47:32 PM us Herber Knott MD IMG ECG ORDERABLES Final Resul t EXTERNAL EKG documented in this encounter Visit Diagnoses Diagnosis Preop examination Preoperative examination, unspecified Preop cardiovascular exam Pre-operative cardiovascular examination documented in this encounter Care Teams White Sugar Boiler Relationship Specialty Start Date End Date Provider, Not On File [place] PCP - General 03/19/22 04/07/22 documented as of this encounter
--- OUTSIDE RECORDS SUMMARY | 2024-10-22 00:18 | XMS_ITS | Encounter Summary ---
Author Organization [facility] Address [address] [place] [address] Phone Care Team Providers Care Overlock Collar Setter Name Role Phone Denis Platt MD Primary Care Provider [phone] Reason for Visit * Auth/Cert Specialty Diagnoses / Procedures Referred By Lyndsey farmer Referred To Contact Referral ID Status Reason Start Date Expiration Date Visits Re quested Visits Authorized [id number] 1 1 Encounter Details Date Type Department Care Team (Latest Contact Info) Description 04/09/2022 2:00 PM CDT Home Care Visit [facility] [address] [place] [address] Cyn Roblero, PT [place] PT - [place] START OF CARE Social History Tobacco Use Types Packs/Day Years [...] Sign Reading Time Taken Comments Blood Pressure 142/74 04/09/2022 1:56 PM CDT Pulse 63 04/09/2022 1:56 PM CDT Temperature 35.6 ??C (96.1 ??F) 04/09/2022 1:56 PM CD T Respiratory Rate 18 04/09/2022 1:56 PM CDT Oxygen Saturation 100% 04/09/2022 1:56 PM CDT Inhaled Oxygen Concentration - - Weight 81.6 kg (180 lb) 04/09/2022 1:56 PM CDT Height 162.6 cm (5' 4 ) 04/09/2022 1:56 PM CDT Body Mass Index 30.9 04/09/2022 1:56 PM CDT documented in this encounter Plan of Treatment Not on file documented as of this encounter Visit Diagnoses Not on filedocumented in this encounter Home Health Visit - Care Plan Visit Details Visit Type -PT - [facility] START OF CARE Discipline -Physical Therapy Problems Problem Description Start Date Status Goals Interve ntions PHYSICAL THERAPY GENERAL (O) Disciplines: Physical Therapy Physical Therapy General Order 04/09/2022 Active 1 goal linked to scheduled/documen maryann intervention 1 goal intervention scheduled/document ed in this visit PT COMPREHENSIVE Disciplines: Physical Therapy 04/09/2022 Active 1 goal linked to scheduled/documen maryann intervention 1 goal intervention scheduled/document ed in this visit Goals Goal Associated Problem Outcome Goal Met? 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 [employer] Date: by 05/02/22 (date) PHYSICAL THERAPY GENERAL (O) No PT HEP/Strength and Exercise Description: HEP [...] next 2 weeks. She works for a [employer], sedentary work. At PT eval patient answers [...] not ordered, patient declined need for ACP Team[facility] Consultant to provide: not ordered Past Medical History: A-fib, PAD, hypertension, aortic stenosis, GERD, R knee torn cartilage Other contributing issues: not willing to do MD recommendation with MARYANN hose/walker Clinician to instruct patient/ caregiver on signs [...] GENERAL (O) Goal:Physical Therapy General Completed PT HEP/Strength and Exercise Description: Instruct on therapeutic exercises and home exercise program. Progress as tolerated. Problem:PT COMPREHENSIVE Goal:PT HEP/Strength and Exercise Completed Therapeutic exercise instruction this date supine HEP: ankle pumps, quad sets, short arc quad, hip abduction (with assist), hip flexion (with assist). Educated on anterior hip precautions and given handouts: 1. NO hip extension beyond 10 degrees (kicking backwards) 2. NO external rotation greater than 30 degrees (Toes facing outwards) 3. No Straight Leg Raises for 4-6 weeks (Lifting the Right leg by itself) 4. No active hip flexion beyond 90 degrees for 6 weeks Skills provided: Initial instruction in technique, reps, and frequency to perform Home Exercise Program issued yes Instruction provided to Patient. Response verbalize understanding. Progress toward goal: ongoing documented in this encounter Care Teams Overlock Collar Setter Relationship Specialty Start Date End Date Denis Platt MD [address] [place] [address] PCP - General Pediatrics 04/08/22 02/15/24 documented as of this encounter
--- OUTSIDE RECORDS SUMMARY | 2024-10-22 00:18 | XMS_ITS | Encounter Summary ---
Author Organization [employer] Care Team Providers Care Music Educator Name Role Phone Provider, Not On File Primary Care Provider Unav ailable Encounter Details Date Type Department Care Team (Latest Contact Info) Description 03/19/2022 Travel Social History Tobacco Use Types Packs/Day [...] on filedocumented in this encounter Care Teams Music Educator Relationship Specialty Start Date End Date Provider, Not On File [place] PCP - General 03/19/22 04/07/22 documented as of this encounter
--- OUTSIDE RECORDS SUMMARY | 2024-10-22 00:18 | XMS_ITS | Encounter Summary ---
Author Organization [facility] Care Team Providers Care Lung Splitter Name Role Phone Provider, Not On File Primary Care Provider Unav ailable Encounter Details Date Type Department Care Team (Latest Contact Info) Description 04/04/2022 Travel Social History Tobacco Use Types Packs/Day [...] suspected to have Coronavirus/COVID-19? No / Unsure 04/04/2022 9:32 AM CDT documented as of this encounter Plan of Treatment Not on file documented as of this encounter Visit Diagnoses Not on filedocumented in this encounter Care Teams Lung Splitter Relationship Specialty Start Date End Date Provider, Not On File [place] PCP - General 03/19/22 04/07/22 documented as of this encounter
--- OUTSIDE RECORDS SUMMARY | 2024-10-22 00:18 | XMS_ITS | Encounter Summary ---
Author Organization [facility] Address [address] [place] [address] Phone Care Team Providers Care Communication Spec Name Role Phone Provider, Not On File Primary Care Provider Unav ailable Denis Pendleton MD Primary Care Provider [phone] Reason for Visit * Auth/Cert Specialty Diagnoses / Procedures Referred By Contac t Referred To Contact Diagnoses PRIMARY OSTEOARTHRITIS OF LEFT HIP Procedures TOTAL HIP ARTHROPLASTY Herber Knott MD [address], [address] [place] [address] Phone: tel: fax: Referral ID Status Reason Start Date Expiration Date Visits Re quested Visits Authorized [id number] 1 1 Encounter Details Date Type Department Care Team (Latest Contact Info) Description 04/07/2022 5:12 AM CDT - 04/08/2022 4:49 PM CDT Hospital Encounter [facility] [address] [place] [phone] Herber Knott MD [address], [address] [place] [address] Discharge Disposition: Home Health Care Svc Social History Tobacco Use Types Packs/Day Years [...] Sign Reading Time Taken Comments Blood Pressure 95/62 04/08/2022 3:32 PM CDT Pulse 53 04/07/2022 9:55 PM CDT Temperature 35.3 ??C (95.6 ??F) 04/08/2022 3:32 PM CD T Respiratory Rate 16 04/08/2022 3:32 PM CDT Oxygen Saturation 100% 04/08/2022 3:32 PM CDT Inhaled Oxygen Concentration - - Weight 81.6 kg (180 lb) 04/07/2022 10:54 AM CDT Height 162.6 cm (5' 4 ) 04/07/2022 10:54 AM CDT Body Mass Index 30.9 04/07/2022 [...] 04/08/2022 10:23 AM CDT You have chosen [facility] for the nursing, physical therapy your doctor has ordered. They will call you to schedule initial visit. If you have not heard from them within 24 hours of your discharge, please call ( ). [facility] is providing your wheeled walker. This has been delivered to your hospital room. If you have questions regarding your equipment, please call [phone] (or toll free [phone]). documented in this encounter Medications at Time [...] PM CDT OPERATIVE REPORT Admit: 04/07/2022 CSN: [id number] Dictating Provider: [id number] Herber Knott MD DATE OF PROCEDURE: 04/07/2022 SURGEON: Herber Knott MD FOOD DEMONSTRATOR: VALENCIA Hernandez PREOPERATIVE DIAGNOSIS: Left hip osteoarthritis. [...] at the end of the case. JAKE/aracely /[id number] documented in this encounter Miscellaneous Notes * [...] Wheeled walker. Activity recommendations communicated with , DORINDA. Assessment: Patient seen Bedside for participation in [...] WFL Bed Mobility Bed Mobility: supine-sit Scooting/Bridging Fountain (Bed Mobility): modified independence Supine-Sit Fountain (Bed Mobility): modified independence Comment (Bed Mobility): Patient able to perform bed mobility indpedently but slowly without bed rails or assist. Sit/Stand Transfer Level of Assistance (Sit-Stand Transfers): verbal cues, standby assist, 1 person to manage equipment Level of Assistance (STAND/SIT): 1 person to manage equipment Assistive Device (Transfers): walker, front-wheeled, gait belt Comment: Patient verbalized safe sequencing, then perfomred task with [facility] and supervision for optimal balance. Gait Mobility Fountain Level (Gait): verbal cues, standby assist, 1 [...] Balance: mild impairment Functional Outcome Measure used: [facility] AM-PAC?6 Clicks?? Basic Mobility Inpatient Short Form How [...] Mast Ace - 04/08/2022 10:38 AM CDT Supply Cataloguer - Transition Arrangements Coordinated Note - Transition Specialists do not coordinate all transitions or aspects of transitions- CONFIRM PATIENT READINESS WITH RELIEF OPERATOR PRIOR TO DISCHARGE Banquet Lead notified: yes, notified NIA Mazariegos at the following time 1038 via AL. Additional Details of Discharge Plan: Patient is discharging home with home health. [facility] will call patient to schedule SOC. Home Health - coordination complete with [facility] (Home Health Agency) Updates for Elitra???s discharge sent to agencies and agency personnel notified: yes, notified [facility] at the following time 1029 via Service Seeking IB. Home Agency added to/ verified on [...] NOT heart failure or COVID Bonny Mast Supply Cataloguer Care Management, Center of Expertise * Interdisciplinary - Angeles Mast Ace - 04/08/2022 10:37 AM CDT Supply Cataloguer Coordination Note SUMMARY - Supply Cataloguer currently working the potential transition plan(s): ??? 04/08/2022 @ 10:30 AM CDT (EMERALD [place]) Home Health [LINDERMAN MACHINE OPERATOR] (See detail within the referral type(s) below for information on what is needed to complete coordination Note - the Transition Specialists do not coordinate all transition types - please direct all question regarding hospital transition to the Banquet Lead) Readmission risk level (if calculated) is: Primary Care Provider: PCP: DENIS PENDLETON MD Primary Medical Coverage: Medicare Part A And B Secondary Medical Coverage: [employer] [facility] Follow-Up appointment(s) scheduling status: ??? N/A - Readmission risk level NOT high, medium-high, OR principle problem is NOT heart failure or COVID Home Health Referral Status: coordination complete Referral Type: New Provider who will sign on-going Home Health Plan of Care: PCP: DENIS PENDLETON MD Home Health Services Needed: long term, physical therapy Needed Information / Documentation to complete Home Health coordination: ??? None [facility] - ACCEPTED & SELECTED - coordination complete Contact is [facility] ??? 04/08/2022 @ 10:31 AM CDT (EMERALD W[place]) Received IB from NIA Mazariegos stating that patient is discharging today and will need home health. Notified [facility] and referral was sent via Service Seeking IB * Edwin - Delilah Woods - 04/08/2022 10:23 AM [...] Plan Notification/ Verification 1. Patient's Phone numbers: [phone] (home) 2. Patient's preferred discharge phone number for follow up appointments, etc: (if different from above): N/A 3. Information for bedside nurse to call report and fax PACT Document in Sticky Note?: Not applicable - no external home care agencies or hemodialysis 4. Nursing notified: YES Mellissa SETH 5. Patient/ Decision Maker and family notified: Quin IM Letter Documentation, if applicable N/A - Medicare but Observation, Penitentiary Inpatient, Emergency, or Ambulatory Surgery patientclass Decision Maker / Caregiver Information Medical Decision Maker Assessment: Patient is medical decision-maker * Plan of Care - Delilah Woods - 04/08/2022 10:17 AM CDT Case Management Comprehensive Assessment Quin's readmission risk level (if calculated) is: Patient Class: Hospital Ambulatory Surgery Consecutive Inpatient Midnights :none - not currently inpatient class Actual day(s) of hospital stay (compare to working DRG): 1 Reason for Banquet LeadRn Labor Delivery: Consult for home health and walker Quin [...] have or use DME. Patient's PCP is DENIS PENDLETON MD located in [place] and she is active with them. Patient has Medicare and BCBS and denies any complications obtaining or affording medications. Patient does not have advanced directives on file and declines information. Quni is not a 30 day re-hospitalization. Plan of Care (Problem/ situation/ barrier + goals/ milestones + interventions + evaluation of progress = Plan of Care) Hospital Plan: discharge home today, PT/OT, pain control Anticipated Discharge Plan: Home Health () 04/08/22 Patient/ patient education courses sales representative's preferences regarding the discharge plan: Return [...] if applicable N/A - Medicare but Observation, Penitentiary Inpatient, Emergency, or Ambulatory Surgery patientclass Decision Maker / Research Statistician Information Patient is medical decision-maker New referral(s) for Supply Cataloguer Home Health Agency [LINDERMAN MACHINE OPERATOR] Agency Choice(s) ??? [facility] List of Medicare approved HH agencies with quality measures and resource data (with any financial affiliations disclosed and/ or in network providers identified as applicable) provided to patient / family: Yes Provider who will be signing the ongoing Home Health plan of care: DENIS PENDLETON MD (Note: at least one PRIMARY service of long term, physical therapy or speech is required to meet medical necessity criteria for LINDERMAN MACHINE OPERATOR) Home Health Services Needed: long term, physical therapy Anticipated Needs: disease management and [...] I, or a nurse practitioner or physician???s dental assistant working with me, had a [id number]-ecti encounter with her that meets the requirements [...] instability (Describe what the RN, PT, or IT MANAGER and other services will be doing in [...] Lnp-s, Pf, 30 Mcg/0.3 Ml Dose, Lavon-sucrose (Mendix thomas top) 03/16/2022 She has a past medical history of A-fib (HCC), Arthritis, custodial use of blood thinners, and Hypertension. She [...] will review and cosign this order. Signed: Kami Lyons PAC, 04/08/2022, 6:56 AM CDT Cosigned by Herber [...] per shift Taken 04/07/2022 1201 by Nehal Rosario RN Progress: progress toward functional goals as expected Plan of Care Reviewed With: patient Does the patient need assistance with discharge and/or transitioning to the next level of care?: No, no needs anticipated Goal: Absence of Hospital-Acquired Illness or Injury Intervention: Prevent and Manage VTE (Venous Thromboembolism) Risk Flowsheets (Taken 04/07/2022 194) VTE Prevention/Management: patient refused intervention Goal: Optimal [...] Wellbeing Flowsheets (Taken 04/07/2022 1201 by Nehal Rosario RN) Supportive Measures: active listening utilized relaxation [...] Recovery Flowsheets Taken 04/08/2022 0303 by Karan Cruz RN Reorientation Measures: clock in view Taken 04/07/2022 1800 by Annetta Galvan CNA Safety Promotion/Fall Prevention: nonskid shoes/slippers when out of bed room near unit station low bed Problem: Pain (Surgery Nonspecified) Goal: Acceptable Pain Control Intervention: Prevent or Manage Pain Flowsheets Taken 04/07/2022 1940 by Karan Cruz, stiff straw hat washer Interventions: care clustered medication offered but refused [...] past medical history of A-fib (HCC), Arthritis, terminologist use of blood thinners, and Hypertension. Past [...] in standing positions. Functional Outcome Measure Used: [facility] AM-PAC 6 Clicks Daily Activity How much help [...] timeframe or completely without the use of the assistive device (AD). The patient has a mobility [...] past medical history of A-fib (HCC), Arthritis, custodial use of blood thinners, and Hypertension. Past [...] Type: Therapeutic Activities Therapeutic Activity Time Entry: 23 Eval /Treat General Information Patient Profile Reviewed: yes Pertinent History of Current Functional Problem: left anterior approach TKA Onset of Illness/Injury or Date of Surgery: 04/07/22 Referring Physician: Hedy General Observations of Patient: patient laying in [...] 4/5 Bed Mobility Bed Mobility: supine-sit Supine-Sit Fountain (Bed Mobility): set up, verbal cues, 1 [...] leg forward to decrease pain Gait Mobility Fountain Level (Gait): set up, verbal cues, contact [...] Balance: mild impairment Functional Outcome Measure used: [facility] AM-PAC?6 Clicks?? Basic Mobility Inpatient Short Form How [...] after therapy with call light near. BERNIE SCHUMACHER PT * Plan of Care - Nehal [...] of Care Outcome: Ongoing (see interventions/notes) * Interdisciplinary - Padmini Goddard RN - 03/25/2022 8:52 AM CDT SPOKE TO KOLE WITH DR. KNOTT'S OFFICE TO INFORM THAT URINE CULTURE COLLECTED ON 03/19/22 AT [facility] WAS POSITIVE, BUT PATIENT STATED SHE IS NOT TREATING WITH ANTIBIOTIC YET. SHE STATED THAT SHE WOULD FOLLOW UP WITH DR. KNOTT REGARDING THIS INFORMATION. * Interdisciplinary - Padmini Goddard RN - 03/25/2022 8:42 AM CDT [facility] ADULT TEACHING Patient Name: Quin Talley : 1935 CSN#: [id number] Person Educated Patient Ready to Learn Yes Teaching Method Phone HAVE REQUIRED COVID SWAB TEST ON 04/04/22 [id number], ALONG WITH TYPE AND CROSSMATCH BLOOD DRAW. [...] be allowed to accompany you to the [facility]. No children under theage of 16 will be allowed in the [facility] unless they are the patient. 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 W/ BOOST X2, HX AFIB AND MCC WARFARIN, TO HOLD 5 DAYS PRIOR TO [...] - 12.00 10(3)/mcL 04/08/2022 6:55 AM CDT [facility] RBC 3.51(L) 3.80 - 5.30 10(6)/mcL 04/08/2022 6:55 AM CDT [facility] HEMOGLOBIN (HGB) 9.3(L) 12.0 - 15.8 g/dL 04/08/2022 6:55 AM CDT [facility] HEMATOCRIT (HCT) 30.2(L) 36.0 - 47.0 % 04/08/2022 6:55 AM CDT [facility] MCV 86.0 82.0 - 96.0 fL 04/08/2022 6:55 AM CDT [facility] MCH 26.5 26.0 - 34.0 pg 04/08/2022 6:55 AM CDT [facility] MCHC 30.8(L) 31.0 - 36.0 g/dL 04/08/2022 6:55 AM CDT [facility] PLATELET COUNT 160 140 - 440 10(3)/mcL 04/08/2022 6:55 AM CDT [facility] RDW 14.3 11.8 - 15.5 % 04/08/2022 6:55 AM CDT [facility] MPV 10.5 9.7 - 12.4 fL 04/08/2022 6:55 AM CDT [facility] NEUTROPHILS 88.2(H) 47.0 - 73.0 % 04/08/2022 6:55 AM CDT [facility] LYMPHOCYTES 6.1(L) 18.0 - 42.0 % 04/08/2022 6:55 AM CDT [facility] MONOCYTES 5.6 4.0 - 12.0 % 04/08/2022 6:55 AM CDT [facility] EOSINOPHILS 0.0 0.0 - 5.0 % 04/08/2022 6:55 AM CDT [facility] BASOPHILS 0.1 0.0 - 1.0 % 04/08/2022 6:55 AM CDT [facility] ABSOLUTE NEUTROPHILS 7.96(H) 1.60 - 7.70 10(3)/mcL 04/08/2022 6:55 AM CDT [facility] ABSOLUTE LYMPHOCYTES 0.55(L) 1.30 - 3.20 10(3)/[facility] 04/08/2022 6:55 AM CDT [facility] ABSOLUTE MONOCYTES 0.51 0.20 - 1.00 10(3)/[facility] 04/08/2022 6:55 AM CDT [facility] ABSOLUTE EOSINOPHIL 0.00 0.00 - 0.40 10(3)/[facility] 04/08/2022 6:55 AM CDT [facility] ABSOLUTE BASOPHILS 0.01 0.00 - 0.10 10(3)/[facility] 04/08/2022 6:55 AM CDT [facility] NRBC PER 100 WBC 0 04/08/20 6:55 AM CDT [facility] RESULTS ARE CONSISTENT WITH PERIPHERAL SMEAR REVIEW Yes 04/08/2022 6:55 AM CDT [facility] Blood Venipuncture / Unknown 04/08/2022 4:02 AM CDT 04/08/2022 5:07 AM CDT Kami Lyons PAC HEMATOLOGY ORDERABLES Fin al Result [facility] [address] [place] [address] * Protime (PT) (Prothrombin Time) (04/08/2022 4:02 AM CDT) Only the most recent of2 resultswithin the time period is included. PROTIME-PATIENT 13.9 11.6 - 14.8 sec 04/08/2022 5:34 AM CDT [facility] INR 1.1 0.9 - 1.2 04/08/2022 5:34 AM CDT [facility] Comment: Therapeutic Ranges INR = 2.0-3.0: Venous thromb, atrial fib, pul embolism, tissue heart valve, ami. INR = 2.5-3.5: Mechanical heart valve Critical value for INR is >/= 4.5 Blood Venipuncture / Unknown 04/08/2022 4:02 AM CDT 04/08/2022 5:07 AM CDT us Kami Lyons PAC HEMATOLOGY ORDERABLES Fin al Result [facility] [address] [place] [address] * (ABNORMAL) BMP with Ca, Total (04/08/2022 4:02 AM CDT) SODIUM 131(L) 136 - 144 mmol/L 04/08/2022 5:27 AM CDT [facility] POTASSIUM 3.9 3.5 - 5.1 mmol/L 04/08/2022 5:27 AM CDT [facility] CHLORIDE 98(L) 100 - 110 mmol/L 04/08/2022 5:27 AM CDT [facility] CO2, VENOUS 26 22 - 32 mmol/L 04/08/2022 5:27 AM CDT [facility] ANION GAP 10.9 8.0 - 20.0 mmol/L 04/08/2022 5:27 AM CDT [facility] GLUCOSE 133(H) 70 - 99 mg/dL 04/08/2022 5:27 AM CDT [facility] BUN 22 8 - 23 mg/dL 04/08/2022 5:27 AM CDT [facility] CREATININE, BLOOD 1.44(H) 0.60 - 1.10 mg/dL 04/08/2022 5:27 AM CDT [facility] BUN/CREATININE RATIO 15 12 - 20 ratio 04/08/2022 5:27 AM CDT [facility] CALCIUM 8.0(L) 8.9 - 10.3 mg/dL 04/08/2022 5:27 AM CDT [facility] GFR, EST. NONAFRICAN 35(L) >=60 04/08/2022 5:27 AM CDT [facility] GFR, EST. 42(L) >=60 04/08/2022 5:27 AM CDT [facility] Comment: Creatinine Clearance is the preferred criteria for selecting drug dose adjustments in renally impaired patients. ??The GFR is provided as additional pertinent clinical information. GFR is reported in mL/min/1.73 sq m. HAS THE PATIENT BEEN FASTING? No 04/08/2022 5:27 AM CDT [facility] Blood Venipuncture / Unknown 04/08/2022 4:02 AM CDT 04/08/2022 5:07 AM CDT us Kami Lyons PAC CHEMISTRY ORDERABLES Noris l Result Performing Organization Address [place]/[facility] Co de Phone Number [facility] [address] [place] [address] * APTT (PTT) (04/07/2022 11:04 AM CDT) PTT 31 24 - 36 sec 04/07/2022 11:30 AM CDT [facility] Blood Venipuncture / Unknown 04/07/2022 11:04 AM CDT 04/07/2022 11:14 AM CDT Narrative [facility] - 04/07/2022 11:30 AM CDT Therapeutic range for unfractionated heparin at 0.3-0.7 U/mL is an aPTT value in the range of 71-100 seconds. Critical value for the PTT test is >= 122 seconds. us Herber Knott MD HEMATOLOGY ORDERABLES Final Re sult Performing Organization Address City/[facility]/ZIP Co de Phone Number [facility] [address] [place] [address] * XR PELVIS AP PORT (04/07/2022 9:57 [...] 10:34 AM - Electronically signed by ??Marcos HESS: DESHAWN D: ??04/07/2022 10:34 AM T: ??04/07/2022 10:34 AM Report ID: [id number] Reading Location: ??[id number] Procedure Note Marcos Marquez MD - 04/07/2022 [...] 10:34 AM - Electronically signed by Marcos HESS: DESHAWN Report ID: [id number] Reading Location: [id number] IMPRESSION: Recent postoperative changes from left hip arthroplasty. [facility] IMG DIAGNOSTIC ORDERABLES Final Result * Pathology Surgical (04/07/2022 9:16 AM CDT) Case Report Surgical Pathology Report ? Case: [id number] ? Authorizing Provider: ??Herber Knott MD ?Collected: ? 04/07/2022 09:16 AM ? Ordering Location: ? [facility] ? Received: ?04/07/2022 10:57 AM ? [facility] ? Main OR ? Pathologist: ? Duncan Dillon MD ? Specimen: ?Hip, DEBRIDED BONE AND TISSUE, LEFT HIP ? 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 - HYPOCELLULAR MARROW. - NEGATIVE FOR MALIGNANCY OR SIGNIFICANT INFLAMMATION. 04/09/2022 8:57 AM CDT [facility] Pre-Operative Diagnosis PRIMARY OSTEOARTHRITIS OF LEFT HIP 04/09/2022 8:57 AM CDT [facility] Gross Description A. DEBRIDED BONE AND [...] femoral head there are areas of eburnation. Cable Engineer sample will be submitted in cassette A1 after proper fixation and decalcification. KS/sb 04/09/2022 8:57 AM CDT [facility] Microscopic Description Microscopic examination was performed which supports the final diagnosis. All control tissues stained appropriately. 04/09/2022 8:57 AM CDT [facility] Tissue HIP REGION STRUCTURE / Unknown 04/07/2022 9:16 AM CDT 04/07/2022 10:57 AM CDT us Herber Knott MD PATHOLOGY/CYTOLOGY ORDERABLES Final Result [facility] [address] [place] [address] * XR SURGICAL EXAM (04/07/2022 9:14 AM [...] Electronically signed by ??Jagdish Ratliff M.D. LB: LB D: ??04/08/2022 9:29 AM T: ??04/08/2022 9:29 AM Report ID: [id number] Reading Location: ??[id number] Procedure Note Jagdish Ratliff MD - 04/08/2022 [...] Electronically signed by Jagdish Ratliff M.D. LB: LB Report ID: [id number] Reading Location: [id number] IMPRESSION: 1. Intraoperative fluoroscopic image guidance utilized during a left hip arthroplasty. Please see operative report for further details. Herber Knott MD IMG DIAGNOSTIC ORDERABLES Noris zunilda Result * ABO/RH (D) Recheck (04/07/2022 6:20 AM CDT) ABO TYPING O 04/07/2022 7:20 AM CDT [facility]OD [facility] RH Positive 04/07/2022 7:20 AM CDT [facility] Blood Venipuncture / Unknown 04/07/2022 6:20 AM CDT 04/07/2022 6:24 AM CDT us Duncan Dillon MD BLOOD BANK ORDERABLES Final Result [facility] BLOOD B[facility] [address] [place] [address] * Culture, Urine (04/07/2022 5:34 AM CDT) [facility] CULTURE RESULTS MIXED GROWTH OF ONE OR MORE DISTAL URETHRAL CONTAMINANTS 04/08/2022 1:28 PM CDT [facility]rine URINE SPECIMEN COLLECTION, CLEAN CATCH / Unknown Non-Phlebotomy Collection / Unknown 04/07/2022 5:34 AM CDT 04/07/2022 5:41 AM CDT us Herber Knott MD MICROBIOLOGY - GENERAL ORDERAB LES Final Result [facility] [address] [place] [address], [place] * (ABNORMAL) URINALYSIS REFLEX IF INDICATED BY ABNORMAL RESULTS (04/07/2022 5:34 AM CDT) Pathologist [facility] SPECIFIC GRAVITY 1.015 1.003 - 1.030 04/07/2022 6:22 AM CDT [facility] URINE PH 5.0 5.0 - 9.0 04/07/2022 6:22 AM CDT [facility] WBC ESTERASE 500 /uL(A) Negative 04/07/2022 6:22 AM CDT [facility] NITRITE Negative Negative 04/07/2022 6:22 AM CDT [facility] PROTEIN, RANDOM URINE Negative Negative 04/07/2022 6:22 AM CDT [facility] URINE GLUCOSE, QUAL Negative Negative 04/07/2022 6:22 AM CDT [facility] URINE KETONES Negative Negative 04/07/2022 6:22 AM CDT [facility] UROBILINOGEN Normal Normal mg/dL 04/07/2022 6:22 AM CDT [facility] URINE BLOOD Negative Negative bill/ul 04/07/2022 6:22 AM CDT [facility] URINALYSIS COLOR Yellow 04/07/20 6:22 AM CDT [facility] URINALYSIS CLARITY Slightly Cloudy 04/07/2022 6:22 AM CD[address] [facility] WBC (Urine) 11-20(A) Negative, 0-5 /hpf 04/07/2022 6:22 AM CDT [facility] URINE RBC'S 0-2 Negative, 0-2 /hpf 04/07/2022 6:22 AM CDT [facility] EPITHELIAL CELLS Moderate amount /lpf 04/07/2022 6:22 AM CDT [facility] BACTERIA, URINE Many(A) Negative /hpf 04/07/2022 6:22 AM CD[address] [facility] Urine URINE SPECIMEN COLLECTION, CLEAN CATCH / Unknown Non-Phlebotomy Collection / Unknown 04/07/2022 5:34 AM CDT 04/07/2022 5:41 AM CDT Herber Knott MD URINE ORDERABLES Final Result [facility] [address] [place] [address] documented in this encounter Visit Diagnoses Diagnosis Primary osteoarthritis of left hip- Primary Primary localized osteoarthrosis, pelvic region and thigh Pre-op testing Preoperative examination, unspecified documented in this encounter Administered Medications Inactive Administered [...] Given 04/07/2022 11:22 AM CDT 500 mg ceFAZolin (ANCEF) injection 2 g 2 g, Intravenous, EVERY 8 HOURS, 2 doses, First dose on Wed04/07/22 at 1530, Last dose on Wed04/07/22 at 2330, Administer over 5 Minutes, POST-OP (NURSING UNIT), Indications: Perioperative PharmacoprophylaxisIndications:Perioperative Pharmacoprophylaxis Given 04/07/2022 10:30 PM CDT 2 [...] 04/07/2022 6:09 AM CDT 20 mL/hr 20 mL /hr losartan (COZAAR) tablet 100 mg 100 mg, [...] 0545, Until Wed04/07/22 at 0608, Created by penny hung oxyCODONE (OxyCONTIN) ER tablet 20 mg 20 mg, Oral, ONCE, 1 dose, On Wed04/07/22 at 0600, Do not crush. Give in holding area. Do not Substitute, PRE-OP (SURGERY) Given 04/07/2022 7:28 AM CDT 20 mg Prochlorperazine Edisylate (COMPAZINE) injection 10 mg 10 [...] Given 04/07/2022 11:22 AM CDT 2 Tablets TRANSDERMAL PATCH ACKNOWLEDGEMENT Miscellaneous, DAILY, First dose on Wed04/07/22 at 1730, Until Discontinued, This order is a communication order only. The patient has a scopolamine transdermal patch. Please use the Acknowledged' DEC action when documenting on the MAR. warfarin [...] (SURGERY) 0608 (Given - Provider: Nehal Recinos, DORINDA) ascorbic acid tablet 500 mg 500 mg, Oral, DAILY, First dose on Wed04/07/22 at 1100, Until Discontinued 112 (Given - Provider: Nehal Rosario, DORINDA) 08 (Given - Provider: Mellissa Ruano RN) bupivacaine [...] Perioperative Pharmacoprophylaxis 1618 (Given - Provider: Nehal Rosario, DORINDA)2230 (Given - Provider: Karan Cruz RN) celecoxib (CeleBREX) capsule 200 mg (CANCELED) 200 mg, Oral, 2 TIMES DAILY, First dose on Wed04/07/22 at 1100, Until Discontinued, POST-OP (NURSING UNIT) 112 (Given - Provider: Nehal Rosario, RN)2200 (Given - Provider: Karan Cruz, RN) celecoxib (CeleBREX) capsule 400 mg (COMPLETED) 400 mg, Oral, ONCE, 1 dose, On Wed04/07/22 at 0600, Give in Pre-op holding area. Do not substitute., PRE-OP (SURGERY) 0608 (Given - Provider: Nehal Recinos, RN) dexamethasone (DECADRON) injection 8 mg (COMPLETED) 8 mg, Intravenous, ONCE, 1 dose, On Wed04/07/22 at 0600, PRE-OP (SURGERY) 0608 (Given - Provider: Nehal Recinos, RN) enoxaparin (LOVENOX) injection 40 mg 40 mg, Subcutaneous, EVERY 24 HOURS SCHEDULED (Daily), First dose on Wed04/07/22 at 2200, Until Discontinued, POST-OP (NURSING UNIT) 220 (Not Given - Provider: Karan Cruz, RN - Reason: Patient/family refused) 0900 (Given - Provider: Mellissa Ruano, DORINDA) famotidine (PEPCID) tablet 20 mg 20 mg, [...] 0823 (Given - Provider: Mellissa Ruano, DORINDA) hydroCHLOROthiazide tablet 25 mg 25 mg, Oral, DAILY, First dose on Wed04/07/22 at 1100, Until Discontinued, POST-OP (NURSING UNIT) 1122 (Given - Provider: Nehal Rosario RN) 0823 (Given - Provider: Mellissa Ruano, RN) ketorolac (TORADOL) injection 15 mg (COMPLETED) 15 mg, Intravenous, EVERY 6 HOURS, 2 doses, First dose on Wed04/07/22 at 1100, Last dose on Wed04/07/22 at 1700, POST-OP (NURSING UNIT) 112 (Given - Provider: Nehal Rosario RN)171 (Given - Provider: Nehal Rosario RN) losartan (COZAAR) tablet 100 mg 100 mg, Oral, DAILY, First dose on Wed04/07/22 at 1100, Until Discontinued, POST-OP (NURSING UNIT) 112 (Given - Provider: Nehal Rosario RN) 08 (Given - Provider: Mellissa Ruano, DORINDA) ondansetron (ZOFRAN) injection 4 mg (COMPLETED) 4 mg, Intravenous, ONCE, 1 dose, On Wed04/07/22 at 0600, PRE-OP (SURGERY) 06 (Given - Provider: Nehal Recinos RN) oxyCODONE [...] patch delivers 1 mg over 3 days 1713 (Patch Applied - Provider: Nehal Rosario RN) 1713 (Patch Removed - Provider: Mellissa Ruano, DORINDA) [...] Karan Cruz, RN - Reason: Patient/family refused) 0824 (Given - Provider: Mellissa Ruano, RN) TRANSDERMAL PATCH ACKNOWLEDGEMENT Miscellaneous, DAILY, First dose on Wed04/07/22 at 1730, Until Discontinued, This order is a communication order only. The patient has a scopolamine transdermal patch. Please use the Acknowledged' MAR action when documenting on the MAR. 1730 (Acknowledged - Provider: Nehal Rosario, DORINDA) 0900 (Acknowledged - Provider: Mellissa Ruano, RN) [...] action to document this on the MAR. 1800 (Acknowledged - Provider: Nehal Rosario, DORINDA) Continuous Medication Order 04/06/2022 04/07/2022 04/08/2022 0.9 % sodium chloride solution at 125 mL/hr, Intravenous, CONTINUOUS, Starting on Wed04/07/22 at 1100, Until Wed04/08/22 at 1849, POST-OP (NURSING UNIT) 1126 (New Bag - Provider: Nehal Rosario, DORINDA)1959 (Stopped - Provider: Karan Cruz, RN)1999 (New Bag - Provider: Karan Cruz, RN) 035 (Stopped - Provider: Karan Cruz, RN)035 (New Bag - Provider: Karan Cruz, RN)1055 (Stopped - Provider: Mellissa Ruano, RN) lactated ringers infusion at 20 mL/hr, Intravenous, [...] 2) increasing dosage, or 3) changing to WEBSITE ADMIN., POST-OP (NURSING UNIT) lidocaine-EPINEPHrine 1 %-[id number] injection (CANCELED) ONCE (in OR), Starting on [...] UNIT) 1358 (Given - Provider: Nehal Rosario, DORINDA) ondansetron (ZOFRAN-ODT) disintegrating tablet 4 mg(Linked Group 1) 4 mg, Oral, EVERY 6 HOURS PRN, Starting on Wed04/07/22 at 1016, Until Wed04/08/22 at 1849, Nausea - 1st line, 1. First Line Antiemetic. 2. Use PO form unless unable to tolerate PO medications, then use Injection, POST-OP (NURSING UNIT) 1358 (See Alternative - Provider: Nehal Rosario, DORINDA) oxyCODONE (ROXICODONE) immediate release tablet 5 mg 5 mg, Oral, EVERY 4 HOURS PRN, Starting on Wed04/07/22 at 1016, Until Wed04/08/22 at 1849, Severe pain, If pain not effectively managed, then contact provider to discuss possibly 1) adding scheduled opioid dosing or non-opioid pain treatments, 2) increasing dosage, or 3) changing to WEBSITE ADMIN., POST-OP (NURSING UNIT) polymyxin B injection (CANCELED) [...] UNIT) documented in this encounter Care Teams Communication Spec Relationship Specialty Start Date End Date Provider, Not On File [place] PCP - General 03/19/22 04/07/22 Denis Pendleton MD [address] [place] [address] PCP - General Pediatrics 04/08/22 02/15/24 documented as of this encounter
--- OUTSIDE RECORDS SUMMARY | 2024-10-22 00:18 | XMS_ITS | Encounter Summary ---
Author Organization [facility] Address [address] [place] [place] [address] Phone Care Team Providers Care Material Control Clerk Name Role Phone Provider, Not On File Primary Care Provider Unav ailable Reason for Referral * Radiology Services (Routine) - Closed Specialty Diagnoses / Procedures Referred By Lyndsey farmer Referred To Contact Radiology Diagnoses Preop examination Procedures EKG 12 LEAD Herber Knott MD Phone: tel: fax: Referral ID Status Reason Start Date Expiration Date Visits Re quested Visits Authorized [id number] Closed 03/19/2022 1 1 * Radiology Services (Routine) - Closed Specialty Diagnoses / Procedures Referred By Lyndsey farmer Referred To Contact Radiology Diagnoses Preop examination Procedures XR CHEST 2 VIEWS Herber Knott MD Phone: tel: fax: Referral ID Status Reason Start Date Expiration Date Visits Re quested Visits Authorized [id number] Closed 03/19/2022 1 1 Encounter Details Date Type Department Care Team (Latest Contact Info) Description 03/19/2022 Transcribe Orders [facility] Patient Access Admitting 1 [place] [address] Herber Knott MD [address] [place] [address], [address] [place] [address] Preop cardiovascular exam (Primary Dx); Preop examination Social History Tobacco Use Types Packs/Day Years [...] on file documented as of this encounter Results * XR CHEST 2 VIEWS (03/19/2022 1:23 PM CDT) Anatomical Region Laterality Modality Chest N/A Digital Radiogra phy 03/20/2022 3:45 PM CDT Impressions 03/20/2022 3:48 PM CDT IMPRESSION: ?? No acute cardiopulmonary findings. Narrative 03/20/2022 3:48 PM CDT EXAM DESCRIPTION: ?? XR CHEST 2 VIEWS REASON FOR STUDY: ?? Preoperative exam. TECHNIQUE: ?? Frontal ??and lateral radiographic views of the chest acquired. COMPARISON: ?? None available FINDINGS: LUNGS/PLEURA: ?? No focal consolidation or pneumothorax. No pleural effusion. HEART/MEDIASTINUM: ?? Heart size is normal. Normal mediastinal and hilar contours. HARDWARE/LINES/TUBES: ?? None. BONES: ?? No acute findings. OTHER: ?? No other significant finding. THIS IS AN ELECTRONICALLY VERIFIED FINAL REPORT 03/20/2022 3:45 PM - Electronically signed by ??Baldemar Caro M.D. MZ: CHULA D: ??03/20/2022 3:45 PM T: ??03/20/2022 3:45 PM Report ID: [id number] Reading Location: ??[id number] Procedure Note Baldemar Caro MD - 03/20/2022 EXAM DESCRIPTION: XR CHEST 2 VIEWS REASON FOR STUDY: Preoperative exam. TECHNIQUE: Frontal and lateral radiographic views of the chest acquired. COMPARISON: None available FINDINGS: LUNGS/PLEURA: No focal consolidation or pneumothorax. No pleural effusion. HEART/MEDIASTINUM: Heart size is normal. Normal mediastinal and hilar contours. HARDWARE/LINES/TUBES: None. BONES: No acute findings. OTHER: No other significant finding. THIS IS AN ELECTRONICALLY VERIFIED FINAL REPORT 03/20/2022 3:45 PM - Electronically signed by Baldemar Caro M.D. MZ: MZ Report ID: [id number] Reading Location: [id number] IMPRESSION: No acute cardiopulmonary findings. Herber Knott MD IMG DIAGNOSTIC ORDERABLES Noris l Result * EKG 12 LEAD (03/19/2022 1:11 PM CDT) Ventricular Rate BPM EXTERNAL EKG Atrial Rate BPM EXTERNAL EKG P-R Interval 140 ms EXTERNAL EKG QRS Duration 132 ms EXTERNAL EKG Q-T Duration 420 ms EXTERNAL EKG QTC CALCULATION 454 ms EXTERNAL EKG P [place] 75 degrees EXTERNAL EKG R [place] -56 degrees EXTERNAL EKG T [place] 53 degrees EXTERNAL EKG 03/19/2022 1:11 PM CDT Impressions EXTERNAL EKG - 03/20/2022 12:47 PM CDT Sinus rhythm Left axis deviation RBBB with left anterior fascicular block Possible anterior infarct - age undetermined Low QRS voltages in precordial leads Comparison Summary: No serial comparison made Summary: Abnormal ECG Confirmed by Giuliano Morrell [id number] on 03/20/2022 12:47:32 PM Narrative Procedure Note Petros Sher MD - 03/20/2022 IMPRESSION: Sinus rhythm Left axis deviation RBBB with left anterior fascicular block Possible anterior infarct - age undetermined Low QRS voltages in precordial leads Comparison Summary: No serial comparison made Summary: Abnormal ECG Confirmed by Giuliano Morrell [id number] on 03/20/2022 12:47:32 PM us Herber Knott MD IMG ECG ORDERABLES Final Resul t Performing Organization Address [facility] Co de Phone Number EXTERNAL EKG * (ABNORMAL) APTT (PTT) (03/19/2022 11:55 AM CDT) PTT 59(H) 24 - 36 sec 03/19/2022 12:38 PM CDT [facility] Blood Venipuncture / Unknown 03/19/2022 11:55 AM CDT 03/19/2022 12:19 PM CDT Narrative [facility] - 03/19/2022 12:38 PM CDT Therapeutic range for unfractionated heparin at 0.3-0.7 U/mL is an aPTT value in the range of 71-100 seconds. Critical value for the PTT test is >= 122 seconds. Herber Knott MD HEMATOLOGY ORDERABLES Final Re sult Performing Organization Address [facility] de Phone Number [facility] [address] [place] [address] * (ABNORMAL) CMP (COMPREHENSIVE METABOLIC PANEL) (03/19/2022 11:55 AM CDT) SODIUM 134(L) 136 - 144 mmol/L 03/19/2022 12:52 PM CDT [facility] POTASSIUM 3.4(L) 3.5 - 5.1 mmol/L 03/19/2022 12:52 PM CDT [facility] CHLORIDE 95(L) 100 - 110 mmol/L 03/19/2022 12:52 PM CDT [facility] CO2, VENOUS 28 22 - 32 mmol/L 03/19/2022 12:52 PM CDT [facility] ANION GAP 14.4 8.0 - 20.0 mmol/L 03/19/2022 12:52 PM CDT [facility] GLUCOSE 112(H) 70 - 99 mg/dL 03/19/2022 12:52 PM CDT [facility] BUN 16 8 - 23 mg/dL 03/19/2022 12:52 PM [facility] CREATININE, BLOOD 0.90 0.60 - 1.10 mg/dL 03/19/2022 12:52 PM [facility] BUN/CREATININE RATIO 18 12 - 20 ratio 03/19/2022 12:52 PM [facility] TOTAL PROTEIN 6.9 6.0 - 8.3 g/dL 03/19/2022 12:52 PM T [facility] ALBUMIN 4.0 3.5 - 5.2 g/dL 03/19/2022 12:52 PM [facility] Comment: The colormetric methods used for the determination of Albumin may lead to falsely elevated test results in patients suffering from renal failure or insufficiency due to interference with other proteins. A/G RATIO 1.4 1.0 - 2.0 03/19/2022 12:52 PM T [facility] CALCIUM 9.1 8.9 - 10.3 mg/dL 03/19/2022 12:52 PM [facility] T BILI 0.4 <=1.2 mg/dL 03/19/2022 12:52 PM [facility] SGOT (AST) 14 <=32 U/L 03/19/2022 12:52 PM [facility] SGPT (ALT) 7 <=41 U/L 03/19/2022 12:52 PM T [facility] ALKALINE PHOSPHATASE 120(H) 35 - 105 U/L 03/19/2022 12:52 PM [facility] GFR, EST. NONAFRICAN 60 >=60 03/19/2022 12:52 PM T [facility] GFR, EST. >60 >=60 022 12:52 PM T [facility] Comment: Creatinine Clearance is the preferred criteria for selecting drug dose adjustments in renally impaired patients. ??The GFR is provided as additional pertinent clinical information. GFR is reported in mL/min/1.73 sq m. IS THE PATIENT REQUIRED TO BE FASTING? No 03/19/2022 12:52 PM CDT [facility] Blood Venipuncture / Unknown 03/19/2022 11:55 AM CDT 03/19/2022 12:19 PM CDT Herber Knott MD CHEMISTRY ORDERABLES Final Res ult Performing Organization Address City/[facility]/ZIP Co de Phone Number [facility] [address] [place] [address] * (ABNORMAL) PROTIME (PT) (PROTHROMBIN TIME) (03/19/2022 11:55 AM CDT) PROTIME-PATIENT 26.7(H) 11.6 - 14.8 sec 03/19/2022 12:38 PM CDT [facility] INR 2.4(H) 0.9 - 1.2 03/19/2022 12:38 PM CDT [facility] Comment: Therapeutic Ranges INR = 2.0-3.0: Venous thromb, atrial fib, pul embolism, tissue heart valve, ami. INR = 2.5-3.5: Mechanical heart valve Critical value for INR is >/= 4.5 Blood Venipuncture / Unknown 03/19/2022 11:55 AM CDT 03/19/2022 12:19 PM CDT Herber Knott MD HEMATOLOGY ORDERABLES Final Re sult Performing Organization Address [facility] Co de Phone Number [facility] [address] [place] [address] * HEMOGLOBIN A1C W/ ESTIMATED GLUCOSE (03/19/2022 11:55 AM CDT) [facility] HGB-A1C 6.0 4.0 - 6.0 % 03/19/2022 1:02 PM CDT [facility] Est Average Glucose 125.5 mg/dL 03/19/2022 1:02 PM CDT [facility] Blood Venipuncture / Unknown 03/19/2022 11:55 AM CDT 03/19/2022 12:19 PM CDT Narrative [facility] - 03/19/2022 1:02 PM CDT HEMOGLOBIN A1C: DIABETIC PATIENTS: WELL-CONTROLLED: ?? 6.2 - 7.0 INTERMEDIATE WELL-CONTROLLED: ??7.0 - 9.0 POORLY-CONTROLLED: ??>9.0 us Herber Knott MD CHEMISTRY ORDERABLES Final Res ult [facility] [address] [place] [address] documented in this encounter Visit Diagnoses Diagnosis Preop cardiovascular exam- Primary Pre-operative cardiovascular examination Preop examination Preoperative examination, unspecified Preop examination Preoperative examination, unspecified Preop cardiovascular exam Pre-operative cardiovascular examination Preop examination Preoperative examination, unspecified Preop cardiovascular exam Pre-operative cardiovascular examination documented in this encounter Care Teams Material Control Clerk Relationship Specialty Start Date End Date Provider, Not On File [place] PCP - General 03/19/22 04/07/22 documented as of this encounter
--- OUTSIDE RECORDS SUMMARY | 2024-10-22 00:18 | XMS_ITS | Encounter Summary ---
Author Organization [facility] Address [address] [place] [address] Phone Care Team Providers Care Sleeve Sewer Name Role Phone Provider, Not On File Primary Care Provider Unav ailable Reason for Referral * Radiology Services (Routine) - Closed Specialty Diagnoses / Procedures Referred By Lyndsey farmer Referred To Contact Radiology Diagnoses Preop examination Procedures XR CHEST 2 VIEWS Herber Knott MD Phone: tel: fax: Referral ID Status Reason Start Date Expiration Date Visits Re quested Visits Authorized [id number] Closed 03/19/2022 1 1 Reason for Visit * Radiology Services (Routine) - Closed Specialty Diagnoses / Procedures Referred By Lyndsey farmer Referred To Contact Radiology Diagnoses Preop examination Procedures XR CHEST 2 VIEWS Herber Knott MD Phone: tel: fax: Referral ID Status Reason Start Date Expiration Date Visits Re quested Visits Authorized [id number] Closed 03/19/2022 1 1 Encounter Details Date Type Department Care Team (Latest Contact Info) Description 03/19/2022 12:59 PM CDT - 03/19/2022 11:59 PM CDT Hospital [facility] [address] [place] [address] Herber Knott MD [address] [place] [address], [address] [place] [address] Discharge Disposition: Discharged to home or Selfcare [...] Procedure Name Priority Date/Time Associated Diagnosis Comments XR CHEST 2 VIEWS Routine 03/19/2022 1:23 PM CDT Preop examination Preop cardiovascular exam documented in this encounter Results * XR CHEST 2 [...] PM T: ??03/20/2022 3:45 PM Report ID: [id number] Reading Location: ??[id number] Procedure Note Baldemar Caro MD - 03/20/2022 [...] Baldemar Caro M.D. MZ: MZ Report ID: [id number] Reading Location: [id number] IMPRESSION: No acute cardiopulmonary findings. Herber Knott MD IMG DIAGNOSTIC ORDERABLES Noris l Result documented in this encounter Visit Diagnoses Diagnosis Preop examination Preoperative examination, unspecified Preop cardiovascular exam Pre-operative cardiovascular examination documented in this encounter Care Teams Sleeve Sewer Relationship Specialty Start Date End Date Provider, Not On File [place] PCP - General 03/19/22 04/07/22 documented as of this encounter
--- OUTSIDE RECORDS SUMMARY | 2024-10-22 00:18 | XMS_ITS | Encounter Summary ---
Author Organization [facility] Address [address] [place] [address] Phone Care Team Providers Care Sap Technical Developer Name Role Phone Provider, Not On File Primary Care Provider Unav ailable Denis Platt MD Primary Care Provider Gideon Campbell MD Primary Care Provider Encounter Details Date Type Department Care Team (Late st Contact Info) Description 03/24/2022 Transcribe Orders [facility] Preop[facility]Pacu II 1 [place] [id number] Herber Knott MD [address] [place] [address], [address] [place] [address] Pre-op testing (Primary Dx) Social History Tobacco Use Types Packs/Day Years [...] documented as of this encounter Results * TYPE & SCREEN (CROSSMATCH CONVERTIBLE) (04/04/2022 9:50 AM CDT) ABO TYPING O 04/04/2022 11:22 AM CDT [facility] RH Positive 04/04/2022 11:22 AM CDT [facility] ABSC Negative 04/04/2022 11:22 AM CDT [facility] Blood Venipuncture / Unknown 04/04/2022 9:50 AM CDT 04/04/2022 10:04 AM CDT Herber Knott MD BLOOD BANK ORDERABLES Edited R esult - Final [facility] [address] [place] [address] * SARS-COV-2 BY MOLECULAR (04/04/2022 9:46 AM CDT) Pathologist [facility] SARSCOV2 NOT DETECTED (Referenc e Range for this test is Not Detected) [facility] [place] ID NOW 04/04/2022 10:33 AM CDT [facility] Comment:This test was perfor med by a MOLECULAR, NON-PCR method Other NASAL STRUCTURE / Unknown Non-Phlebotomy Collection / Unknown 04/04/2022 9:46 AM CDT 04/04/2022 10:04 AM CDT Narrative [facility] - 04/04/2022 10:33 AM CDT This test has been authorized by the FDA under an Emergency Use Authorization (EUA) only. Negative results should be treated as presumptive and, if inconsistent with clinical signs and symptoms or necessary for patient management, the patient should be tested with an alternative molecular assay. Negative results do not preclude SARS-CoV-2 infection or any other respiratory pathogen. Additional information for Clinicians can be found at: https://www.fda.gov/media/696639/download Additional information for Patients can be found at: https://www.fda.gov/media/442885/download us Herber Knott MD MICROBIOLOGY - GENERAL ORDERAB LES Final Result [facility] [address] [place] [address] documented in this encounter Visit Diagnoses Diagnosis Pre-op testing- Primary Preoperative examination, unspecified documented in this encounter Care Teams Sap Technical Developer Relationship Specialty Start Date End Date Provider, Not On File [place] PCP - General 03/19/22 04/07/22 Denis Platt MD [address] [place] [address] PCP - General Pediatrics 04/08/22 02/15/24 Gideon Campbell MD [address] [place] [address] [place] [address] PCP - General Composition Siding Worker 02/16/24 documented as of this encounter
--- OUTSIDE RECORDS SUMMARY | 2024-10-22 00:23 | XMS_ITS | Encounter Summary ---
Author Organization [facility] Healthcare Address [address] [place] [address] Care Team Providers Care State'S Attorney Name Role Phone Gideon Campbell MD Primary Care Provider [phone] Reason for Visit * Reason Onset Date Comments Medical Question/Miscellaneous 02/07/2024 Encounter Details Date Type Department Care Team (Late st Contact Info) Description 02/07/2024 Telephone [facility] Medical [facility] Primary Care at [address] [address] Gideon Campbell MD [address] [place] [address] [address] [place] [address] Medical Question/Miscellaneous Social History Tobacco Use Types Packs/Day Years Used Date Smoking Tobacco: Former Cigarettes Q uit: 09/28/1978 Smokeless Tobacco: Never Alcohol Use Standard Drinks/Week Comments Yes 0 (1 standard drink = 0.6 oz pur e alcohol) AUDIT-C Answer Date Recorded Q1: How often do you have a drink containing alcohol? Never 10/18/2023 Q2: How many drinks containi ng alcohol do you have on a typical day when you are drinking? Patient does not drink Q3: How often do you have si x or more drinks on one occasion? Never 10/18/2023 PHQ-2 Answer Date Recorded PHQ-2 Total Score (If total score is 3 or more points, staff should administer the PHQ-9) 0 10/18/2023 Comments No Sex and Gender Information Value Date Recorded Sex Assigned at Not on file Legal Sex Female 8:30 AM FLOOR COVERING LAYER Gender Identity Female 10/06/2021 4:28 PM FLOOR COVERING LAYER Sexual Orientation Choose not to disclose 2020 4:28 PM FLOOR COVERING LAYER documented as of this encounter Miscellaneous Notes * Telephone Encounter - Gideon Campbell MD - 02/15/2024 8:49 AM [address]T We can place referral to pain mgmt dx chronic joint pain, chronic back pain * Telephone Encounter - Bree Murdock MA - 02/14/2024 3:07 PM CDT Nel stated they would like to try pain management first. She states the pt may be in so much pain she is not able to cook for herself and is using a wheelchair to get around. She would like to stay local with pain management FYI * Telephone Encounter - Gideon Campbell MD - 02/14/2024 9:30 AM CDT I'm not sure if rheuymatology will be so helpful at [facility] time, but we can do either. We can etiher send referral to dr. Diaz dx primary osteoarthritis, chronic joint pain, or to pain management. As for the note from dr. Lofton I would agree in terms of the colonscopy but I like the grandson said it maybe difficult to do and they would need to discuss that with GI. We can place a referral to GI forher to be seen in the office first and discuss then. Likely would have to go to [facility] or [facility] Dx iron defiency anemia * Telephone Encounter - Juliet Cohn - 02/07/2024 9:15 AM CDT Medical Question/Miscellaneous Caller???s Concern: Patients Cresencio Carson calls in asking for the doctor to look over the notes that Dr. Lofton was sending on her iron and Anemia. He advised a Colonoscopy to see where she is losing the iron from She has a lot of joint pain/arthritis, and Alli is worried about her getting up so much when do a prep for a Colonoscopy. He asks if you think she should go to Pain Management, or Rheumatology? He is really concerned. He said he knows he isn't on HIPAA, but the patients daughter Nel Evans is, Ph. # [phone]. Please all her back with the advise on all of this. Does message need to be routed? Yes-Action Needed documented in this encounter Plan of Treatment Not on file documented as of this encounter Visit Diagnoses Not on filedocumented in this encounter Care Teams State'S Attorney Relationship Specialty Start Date End Date Gideon Campbell MD [address] [facility] [address] [place] [address] PCP - General Family Medicine 07/19/23 documented as of this encounter
--- OUTSIDE RECORDS SUMMARY | 2024-10-22 00:23 | XMS_ITS | Encounter Summary ---
Author Organization [facility] Address [address] [place] [address] Phone Care Team Providers Care Hot Sealing Machine Operator Name Role Phone Gideon Campbell MD Primary Care Provider [phone] Reason for Visit * Reason Comments Follow-up Anemia Encounter Details Date Type Department Care Team (Late st Contact Info) Description 01/31/2024 9:45 AM CDT Office Visit [facility] Oncology [address] [place] [address] Medical [facility] Delio Erickson [address] [place] [phone] Luis F Lofton MD [address] [place] [address] [place] [address] 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, unspecified iron 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 type (Primary Dx) Social History Tobacco Use Types [...] on file Legal Sex Female 8:30 AM CUPOLA TAPPER Gender Identity Female 10/06/2021 4:28 PM CUPOLA TAPPER Sexual Orientation Choose not to disclose 2020 4:28 PM CUPOLA TAPPER documented as of this encounter Last Filed Vital Signs Vital Sign Reading Time Taken Comments Blood Pressure 153/58 01/31/2024 9:55 AM CDT Pulse 71 01/31/2024 9:55 AM CDT Temperature 36.4 ??C (97.6 ??F) 01/31/2024 9:55 AM CD T Respiratory Rate 20 01/31/2024 9:55 AM CDT Oxygen Saturation 98% 01/31/2024 9:55 AM CDT Inhaled Oxygen Concentration - - Weight 56 kg (123 lb 6.4 oz) 01/31/2024 9:55 AM CDT Height - - Body Mass Index 21.52 12/13/2023 10:47 AM CUPOLA TAPPER documented in this encounter Progress Notes * Luis F Lofton MD - 01/31/2024 9:45 AM CDT Images from the original note were not included. Patient Identifying Data: Quin Talley is a 88 y.o. female seen in followup today DIAGNOSIS: CARLOS, Anemia of chronic disease HEMATOLOGY/ONCOLOGY TREATMENT HISTORY: 10/18/2023--the patient is an 88-year-old with multiple comorbidities including 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on chronic anticoagulation; hypertension; osteoarthritis of the left knee; hyperlipidemia; 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; microcytic anemia. She has a number of CBC is done over the past several years which shows that most recent normal hemoglobin occurred on 01/27/2017 at 12.9 grams/deciliter. However on the next day, 01/28/2017, the hemoglobin was 10.8. Since that time the hemoglobin has been in the 8.1-7.3 grams/deciliter range including today 10/18/2023. Iron studies done on 07/08/2023 revealed: Serum iron low at 11 TIBC low at 161 Iron saturation 7% No ferritin level drawn It should also be noted that her white blood cell count during this time interval has been normal. Her platelet count however has been normal until 06/16/2023 when it was noted to be 597 and then again today 507. Interval History: The patient returns today for reassessment of her anemia. She is with leg pain and constipation. She dizziness and SOB. She is taking only 1 ferrous sulfate per day. I do not have iron studies on her today but about 6 weeks ago on 12/13/2023 her iron saturation only 8% with a ferritin of 216 and an iron of 14 reticulocyte count was only 1. Her chemistry panel reveals a total protein is low at 5.9 with an albumin only 2.9. Creatinine 0.72 with an EGFR of 81 She has 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 and 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. I am sure she would feel better and perform better for hemoglobin was higher. Review of Systems Review of systems positive for symptoms as per interval history. All other review of systems negative. Objective Vitals: Vitals: 01/31/24 0955 BP: 153/58 BP Location: Right arm Pulse: 71 Resp: 20 Temp: 36.4 ??C (97.6 ??F) TempSrc: Skin SpO2: 98% Weight: 56 kg (123 lb 6.4 oz) PHYSICAL EXAM: Physical Exam -GENERAL: calm -EYES: Extraocular movements intact -ENT: Neck supple. -LUNG: Clear to auscultation bilaterally, No wheezes, No crackles -CVS: Regular rate rhythm, S1 and S2 normal, No murmurs, -EXT: no lower Ext edema. -NEURO: no deficit -SKIN: Skin color, texture, turgor normal. No rashes or lesions Lab/Radiology/Diagnostic Review: Hematology Lab History Latest Ref Rng & Units 07/08/2023 13:30 10/18/2023 10:35 12/13/2023 10:15 01/31/2024 09:20 Labs - Hematology WBC 3.8 - 9.9 K/cumm 6.2 6.9 6.2 5.2 Total Hb, POC 11.9 - 15.5 g/dL 7.6 7.3 7.5 7.5 Hct 35.6 - 45.5 % 26.6 26.3 26.7 26.2 Plt 150 - 400 K/cumm 510 507 559 468 Neutrophil abs 1.5 - 6.5 K/cumm 5.1 6.0 5.0 4.4 Lymphocytes, abs 0.8 - 3.3 K/cumm 0.7 0.5 0.7 0.5 Chemistry Component Value Date/Time SODIUM 138 01/31/2024 0920 POTASSIUM 4.1 01/31/2024 0920 CHLORIDE 101 01/31/2024 0920 CO2 27 01/31/2024 0920 BUNSER 9 01/31/2024 0920 CREATININE 0.72 01/31/2024 0920 GLUCOSE 108 01/31/2024 09 Component Value Date/Time CALCIUM 8.9 01/31/2024 0920 ALKPHOS 127 01/31/2024 0920 AST 7 (L) 01/31/2024 09 ALT 5 (L) 01/31/2024919 BILITOT 0.4 01/31/2024 09 Tumor Marker History Latest Ref Rng & Units 10/18/2023 13:00 Tumor Markers Fibrinogen 170 - 400 mg/dL 533 No results found. Recent labs, radiology and pathology reviewed in EPIC ASSESSMENT: CARLOS likely from GI with reactive thrombocytosis: Hemoglobin 7.5, MCV 67.1, and platelets 559 K. WBC normal. Ferritin 216, iron 14, TIBC 172, and TSAT 8%. With reticulocyte count of 1.0 and ESR elevated at 93. PT/INR: 14.2/1.25 slightly above normal. Will hold on further work up as recommended by Dr. Lofton. PLAN: Start oral iron slower release. If the slow iron release capsules do not effectively bring up her hemoglobin or least her iron levels, then we should discuss with her the possibility of getting parenteral iron on least 1 or 2 occasions if not 3 I discussed with her the thoughts about parenteral iron and having her return in 4-6 weeks to see if she needs 2 more seriously consider this but she did not want to reschedule appointment at this time Luis F Lofton MD Senior Support Engineer Internal Medicine-Medical Oncology [facility] in [place] - Physicians in [address]; [address] [address] Office: (after hours this rolls over to [facility] Oncologist on-call) Freight Separator completed using M*Modal fluency direct speaking software, therefore, silk screen layout drafter variances may occur. documented in this encounter Plan of Treatment Scheduled Orders Name Type Priority Associated Diagnoses Orde r Schedule CBC with auto differential Lab Routine 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, unspecified iron 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 type Expected: 02/28/2024, Expires: 01/30/2025 documented as of this encounter Visit Diagnoses Diagnosis 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, unspecified iron 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 type- Primary documented in this encounter Orders Appointment Requests Count Last Ordered Date Fi rst Ordered Date ONCBCN CLINIC APPOINTMENT REQUEST 1 024 ONCBCN LAB APPOINTMENT 1 01/31/2024 documented in this encounter Care Teams Hot Sealing Machine Operator Relationship Specialty Start Date End Date Gideon Campbell MD [address] [facility] [address] [place] [address] [place] [id number] PCP - General Family Medicine 07/19/23 documented as of this encounter
--- OUTSIDE RECORDS SUMMARY | 2024-10-22 00:23 | XMS_ITS | Referral Summary ---
Author Organization [facility] Address [address] [place] [address] Care Team Providers Care Psychiatric Clinical Nurse Specialist Name Role Phone Gideon Campbell MD Primary Care Provider [phone] Allergies No known active allergies Medications ascorbic acid (VITAMIN C) 500 mg tablet,chewable Take 1 tablet/chew tab (500 mg total) by mouth daily 2 Active losartan (COZAAR) 100 mg tablet TAKE 1 TABLET BY MOUTH DAILY 90 tablet 1 3 Active lidocaine (LIDODERM) 5 % Place 1 patch on the skin daily Apply to painful area 12 hours per day, remove for 12 hours. 90 patch 4 4 Active ferrous sulfate 325 mg (65 mg of elemental iron) tabletIndicatio ns:Iron Deficiency Anemia Take 1 tablet (65 mg of elemental iron total) by mouth daily with breakfast 90 tablet 2 4 Active Active Problems Problem Noted Date Diagnosed Date 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 secon kg to inadequate dietary iron intake 12/23/2023 Absolute anemia 07/29/2023 Medicare annual wellness visit, subsequent 07/29 Assessment & Plan (07/29/2023 12:14 PM CDT): A yearly Medicare Annual Wellness Visit has been performed today. Quin Huerta is up to date on screening tests. They are in need of None- no screening indicated at this time- these have been ordered. Patient is not up to date on needed preventative vaccinations; Is in need of Zoster and Covid-19 (booster). These have been ordered/arranged unless otherwise indicated. Microcytic anemia 07/08/2023 Assessment & Plan (07/08/2023 1:03 PM CDT): significant anemia and in setting of heart hx would recommend tranfusion if hgb <8 pt recently started PO iron - check cbc, iron panel now may need transfusion vs iron infusion scheduled for OR but postponed due to abnormalities also noted with thrombocytosis which is likely reactive Would recommend holding off surgery until there is improvement in hgb/hct or clearance from cardiology Primary osteoarthritis of right hip 06/15/2023 Assessment & Plan (10/18/2023 2:47 PM ONLINE ADVERTISING ANALYST): Worsening sx at this time Weight loss 01/27/2023 Assessment & Plan (10/18/2023 2:38 PM ONLINE ADVERTISING ANALYST): Wt Readings from Last 3 Encounters: 10/18/23 59.1 kg (130 lb 4.8 oz) 10/18/23 57 kg (125 lb 9.6 oz) 07/29/23 56.9 kg (125 lb 6.4 oz) 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 It is recommended that he remain anticoagulated for thromboprophylaxis.[id number]. Left carotid bruit 10/13/2017 Ventricular ectopy 05/17/2017 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 goal <100 04/07/2017 Assessment & Plan (07/08/2023 12:52 PM CDT): No results found for: CHOL , POCCHOL Lab Results Component Value Date POCHDL 46 04/07/2017 Lab Results Component Value Date POCLDL 105 04/07/2017 Lab Results Component Value Date POCTRIG 176 04/07/2017 Lab Results Component Value Date POCCHDLR 4.0 04/07/2017 Lab Results Component Value Date POCNONHDL 140 04/07/2017 Lab Results Component Value Date POCCHLPL 186 04/07/2017 PAD (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) 04/07/2017 Essential hypertension 04/07/2017 Assessment & Plan (10/18/2023 2:39 PM ONLINE ADVERTISING ANALYST): BP Readings from Last 3 Encounters: 10/18/23 160/78 10/18/23 168/68 07/29/23 130/60 Vitals BP 160/78 (BP Location: Left arm, Patient Position: Sitting) Pulse 63 Resp 16 Ht 161.3 cm (5' 3.5 ) Wt 59.1 kg (130 lb 4.8 oz) SpO2 99% BMI 22.72 kg/m?? Lab Results Component Value Date POTASSIUM 4.0 06/16/2023 Significantly elevated Likely 2/2 to pain Assessment & Plan (07/29/2023 12:14 PM CDT): BP Readings from Last 3 Encounters: 07/08/23 136/78 04/15/23 (!) 173/69 04/02/23 158/76 There were no vitals taken for this visit. Lab Results Component Value Date POTASSIUM 4.0 06/16/2023 At goal at this time Continue losartan 100 mg every day Has not been taking her hctz D/c hctz for now C/w losartan 100 mg every day only Assessment & Plan (07/08/2023 12:54 PM CDT): BP Readings from Last 3 Encounters: 07/08/23 136/78 04/15/23 (!) 173/69 04/02/23 158/76 Vitals BP 136/78 (BP Location: Right arm, Patient Position: Sitting) Pulse 69 Resp 16 Ht 161.3 cm (5' 3.5 ) Wt 57.7 kg (127 lb 4.8 oz) SpO2 99% BMI 22.19 kg/m?? Lab Results Component Value Date POTASSIUM 4.0 06/16/2023 At goal at this time Continue losartan 100 mg every day Has not been taking her hctz D/c hctz for now C/w losartan 100 mg every day only Atrial fibrillation (CMS/HCC) [I48.91] 7 Assessment & Plan (07/29/2023 12:02 PM CDT): Currently rate controlled Pt is s/p multiple ablations - no recent episodes as per patietn Chadvasc2 Following with cardio Assessment & Plan (07/08/2023 12:40 PM CDT): Currently rate controlled Pt is s/p multiple ablations - no recent episodes as per patietn Chadvasc2 Following with cardio Assessment & Plan (02/24/2018 11:08 AM CDT): Post repeat ablation of highly symptomatic paroxysmal 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 on 01/27/2017. Since her last office visit in August 2017 she denies any recent episodes of 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. She is currently maintaining sinus rhythm without the use of antiarrhythmic drug therapy. We will continue to monitor for recurrence and manage expectantly. She can follow up in 1 year for an office visit and 12 lead EKG. Assessment & Plan (08/19/2017 10:05 AM ONLINE ADVERTISING ANALYST): Post repeat ablation of her highly symptomatic paroxysmal 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 on 01/27/2017. Since her last office visit in May 2017 she denies any recent episodes of 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. She is currently maintaining sinus rhythm without antiarrhythmic drug therapy. We will continue to monitor for recurrence and manage expectantly. She can follow up in 6 months for an office visit and 12 lead EKG. Assessment & Plan (05/17/2017 2:09 PM CDT): Post repeat ablation of her highly symptomatic paroxysmal 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 01/27/2017. Since her last office visit February 2017 she denies any episodes of 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. She is currently maintaining sinus rhythm without antiarrhythmic drug therapy. We will continue to monitor for recurrence and manage expectantly. No changes to her medications were made at this time. She can follow up in 3 months for an office visit and 12 lead EKG. [facility] 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 0 03/29/2017 Assessment & Plan (07/08/2023 1:04 PM CDT): Pt no longer taking warfarin Unsure of cardiology aware Chadvasc2 = 2 (4% chance of stroke) Discussed risks of taking vs not taking medication Had some issues with getting INR under control but seems taht last INR on file was at goal Lab Results Component Value Date INR 1.90 (A) 01/26/2023 INR 4.10 (A) 01/07/2023 INR 3.50 (A) 11/25/2022 Had an episode where INR was supratherapeutic to 12 No episodes of bleeding Assessment & Plan (08/19/2017 10:05 AM ONLINE ADVERTISING ANALYST): She remains anticoagulated on Coumadin. She has a [id number] score of 4, therefore it is recommended that she remain anticoagulated for thromboprophylaxis. Assessment & Plan (05/17/2017 2:10 PM CDT): She remains anticoagulated with Coumadin.She has a [id number] score of 4(annualized stroke risk of 4%), therefore it is recommended that she remain anticoagulated for thromboprophylaxis. Resolved Problems Problem Noted Date Diagnosed Date Resolved Date Primary osteoarthritis of left hip 09/12/2020 04/21/2022 Immunizations Name Administration Dates Next Due Influenza, Quad, Adjuvantate d, Intramuscular 06/18/2023 Influenza, Quadrivalent, Dulce l Culture-based MDCK, Antibiotic Free, Intramuscular 08/06/2022 Influenza, Unspecified 07/04/2023,07/18/2022 Moderna SARS-CoV-2 Monovalen t Vaccination (12+ YRS) 12/06/2020,11/08/2020 Pneumococcal Conjugate Pcv20 10/18/2023(Deferred : Patient Refused) Social History Tobacco Use Types Packs/Day Years Used Date Smoking Tobacco: Former Cigarettes Q uit: 09/28/1978 Smokeless Tobacco: Never Tobacco Cessation:Counseling Given: Not Answered Alcohol Use Standard Drinks/Week Comments Yes 0 [...] on file Legal Sex Female 8:30 AM ONLINE ADVERTISING ANALYST Gender Identity Female 10/06/2021 4:28 PM ONLINE ADVERTISING ANALYST Sexual Orientation Choose not to disclose 2020 4:28 PM ONLINE ADVERTISING ANALYST Last Filed Vital Signs Vital Sign Reading [...] 6.4 oz) 01/31/2024 9:55 AM CDT Height 161.3 cm (5' 3.5 ) 12/13/2023 10:47 AM CS T Body Mass Index 21.52 12/13/2023 10:47 AM ONLINE ADVERTISING ANALYST Plan of Treatment Not on file Insurance MEDICARE [facility] MEDICARE [employer] [facility]IC[facility] Address: [address] [address] [place] [address] MEDICARE SOLUTIONS Care Teams Psychiatric Clinical Nurse Specialist Relationship Specialty Start Date End Date Gideon Campbell MD [address] [facility] [address] [place] [address] PCP - General Family Medicine 07/19/23
--- OUTSIDE RECORDS SUMMARY | 2024-10-22 00:23 | XMS_ITS | Encounter Summary ---
Author Organization [facility] Healthcare Address [address] [place] [address] Care Team Providers Care Issue Clerk Name Role Phone Gideon Campbell MD Primary Care Provider [phone] Encounter Details Date Type Department Care Team (Late st Contact Info) Description 01/31/2024 9:15 AM CDT Lab [facility] 4 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 Social History Tobacco Use Types Packs/Day Years [...] on file Legal Sex Female 8:30 AM MOLECULAR MODELER Gender Identity Female 10/06/2021 4:28 PM MOLECULAR MODELER Sexual Orientation Choose not to disclose 2020 4:28 PM MOLECULAR MODELER documented as of this encounter Plan of Treatment Not on file documented as of this encounter Procedures Procedure Name Priority Date/Time Associated Diagnosis Comments EGFR Routine 01/31/2024 9:20 AM CDT 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, unspecified iron 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 type long-term (current) use of anticoagulants DIFFERENTIAL AUTO Routine 01/31/2024 9:2 0 AM CDT 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, unspecified iron 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 type CBC WITH AUTO DIFFERENTIAL Routine 01/31/2024 9:20 AM CDT 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, unspecified iron 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 type COMPREHENSIVE METABOLIC PANEL Routine 01/31/2024 9:20 AM CDT 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, unspecified iron 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 type long-term (current) use of anticoagulants documented in this encounter Results * eGFR (01/31/2024 9:20 AM CDT) eGFR 81 >=60 mL/min/1. 73 m2 Comment: Interpretive Data Reference Interval Normal ?>/= 90 mL/min/1.73m2 Mildly decreased* ? 60 - 89 mL/min/1.73m2 Mildly to moderately decreased ?45 - 59 mL/min/1.73m2 Moderately to severely decreased ??30 - 44 mL/min/1.73m2 Severely decreased ?15 - 29 mL/min/1.73m2 Kidney Failure ?< 15 ??mL/min/1.73m2 *Relative to young adult level Estimated glomerular filtration rate is determined by the 2020 CKD-EPI equation recommended by the National Kidney Foundation (A Unifying Approach to GFR Estimation: Recommendations of the NKF-ASK Task Force on Reassessing the Inclusion of Race in Diagnosing Kidney Disease, JASN 2020). The CKD-EPI equation should not be used for patients with unstable renal function and has not been validated in children and those over 70. Current interpretive data was last reviewed 2021. Testing performed by: [place], [address] Blood 01/31/2024 9:20 AM CDT 01/31/2024 9:38 AM CDT us Luis F Lofton MD LAB BLOOD ORDERABLES Final Re sult [facility] ([place]) 1 [facility] [place] [address] * (ABNORMAL) Differential, auto (01/31/2024 9:20 AM CDT) Neutrophil abs 4.4 1.5 - 6.5 K/cumm Comment:Testing performed by : [place], [address] Imm gran abs 0.0 0.0 - 0.1 K/cumm [facility] ([place]) Comment:Testing performed by : [place], [address] Lymphocyte abs 0.5(L) 0.8 - 3.3 K/cumm [facility] ([place]) Comment:Testing performed by : [facility], [place], [address] Monocyte abs 0.5 0.2 - 0.8 K/cumm [facility] ([place]) Comment:Testing performed by : [facility], [place], [address] Eosinophil abs 0.0 0.0 - 0.5 K/cumm [facility] ([place]) Comment:Testing performed by : [place], [address] Basophil abs 0.0 0.0 - 0.1 K/cumm [facility] ([place]) Comment:Testing performed by : [facility], [place], [address] Neutrophil pct 79.3 % [facility] ([place]) Comment: Interpretive Data Percent cell count reference ranges are not reported, since discordance with absolute values may lead to misinterpretation of CBC data. Current Interpretive Data was last revised on 2018. Testing performed by: [place], [address] Imm gran pct 0.4 % [facility] ([place]) Comment: Interpretive Data Percent cell count reference ranges are not reported, since discordance with absolute values may lead to misinterpretation of CBC data. Current Interpretive Data was last revised on 2018. Testing performed by: [place], [address] Lymphocyte pct 9.7 % [facility] ([place]) Comment: Interpretive Data Percent cell count reference ranges are not reported, since discordance with absolute values may lead to misinterpretation of CBC data. Current Interpretive Data was last revised on 2018. Testing performed by: [place], [address] Monocyte pct 9.6 % [facility] ([place]) Comment: Interpretive Data Percent cell count reference ranges are not reported, since discordance with absolute values may lead to misinterpretation of CBC data. Current Interpretive Data was last revised on 2018. Testing performed by: [place], [address] Eosinophil pct 0.5 % [facility] ([place]) Comment: Interpretive Data Percent cell count reference ranges are not reported, since discordance with absolute values may lead to misinterpretation of CBC data. Current Interpretive Data was last revised on 2018. Testing performed by: [place], [address] Basophil pct 0.5 % [facility] ([place]) Comment: Interpretive Data Percent cell count reference ranges are not reported, since discordance with absolute values may lead to misinterpretation of CBC data. Current Interpretive Data was last revised on 2018. Testing performed by: [place], [address] Blood 01/31/2024 9:20 AM CDT 01/31/2024 9:41 AM CDT us Mia Barger TRACK SWEEPER LAB BLOOD ORDERABLES Final Result [facility] ([place]) 1 [facility] [place] [address] * (ABNORMAL) Comprehensive metabolic panel (01/31/2024 9:20 AM CDT) Sodium 138 135 - 145 mmol/L Comment:Testing performed by : [facility], [place], [address] Potassium, pl 4.1 3.3 - 4.9 mmol/L [facility] ([place]) Comment:Testing performed by : [facility], [place], [address] Chloride 101 97 - 110 mmol/L [facility] ([place]) Comment:Testing performed by : [facility], [place], [address] CO2 27 22 - 32 mmol/L [facility] ([place]) Comment:Testing performed by : [facility], [place], [address] Anion gap 10 2 - 15 mmol/L [facility] ([place]) Comment:Testing performed by : [facility], [place], [address] BUN 9 6 - 25 mg/dL [facility] ([place]) Comment:Testing performed by : [facility], [place], [address] Creatinine 0.72 0.60 - 1.10 mg/dL [facility] ([place]) Comment:Testing performed by : [facility], [place], [address] Glucose 108 70 - 199 mg/dL [facility] ([place]) Comment: Interpretive Data Fasting glucose >/= 126 mg/dl is diagnostic for diabetes. ?? Fasting is defined as no caloric intake for at least 8 hours. Fasting glucose between 100 mg/dl to 125 mg/dl is diagnostic of prediabetes. In a patient with classic symptoms of hyperglycemia or hyperglycemic crisis, a random glucose >/= 200 mg/dl is diagnostic for diabetes. In the absence of unequivocal hyperglycemia, results should be confirmed by repeat testing. The classification and Diagnosis of Diabetes Diabetes Care 2021; 46: S19-S40. Current interpretive data was last revised 2022. Testing performed by: [facility], [facility], [place], [address] Calcium 8.9 8.5 - 10.3 mg/dL [facility] ([place]) Comment:Testing performed by : [facility], [facility], [place], [address] Bilirubin, total 0.4 0.1 - 1.2 mg/dL [facility] ([place]) Comment:Testing performed by : [facility], [place], [address] Protein, pl 5.9(L) 6.5 - 8.5 g/dL [facility] ([place]) Comment:Testing performed by : [facility], [facility], [place], [address] Albumin 2.9(L) 3.5 - 5.0 g/dL [facility] ([place]) Comment:Testing performed by : [facility], [facility], [place], [address] Alk phos 127 40 - 130 Units/L [facility] ([place]) Comment:Testing performed by : [facility], [place], [address] ALT 5(L) 7 - 45 Units/L [facility] ([place]) Comment:Testing performed by : [facility], [place], [address] AST 7(L) 10 - 45 Units/L [facility] ([place]) Comment:Testing performed by : [facility], [place], [address] Blood 01/31/2024 9:20 AM CDT 01/31/2024 9:38 AM CDT Narrative [facility] ([place]) - 01/31/2024 10:05 AM CDT [id number] us Luis F Lofton MD LAB BLOOD ORDERABLES Final Re sult [facility] ([place]) 1 [facility] [place] [address] * (ABNORMAL) CBC with auto differential (01/31/2024 9:20 AM CDT) WBC 5.2 3.8 - 9.9 K/cumm Comment:Testing performed by : [facility] [place], [address], Medical Office [address], [place] [address] Hgb 7.5(L) 11.9 - 15.5 g/dL [facility] ([place]) Comment:Testing performed by : [facility] [address], Medical Office [facility] [address], [place] [address] Hct 26.2(L) 35.6 - 45.5 % [facility] ([place]) Comment:Testing performed by : [facility] [address], Medical Office [facility] [address], [place] [address] Plt 468(H) 150 - 400 K/cumm [facility] ([place]) Comment:Testing performed by : [facility] [address], Medical Office [facility] [address], [place] [address] MPV 8.7(L) 9.1 - 12.3 fL [facility] ([place]) Comment:Testing performed by : [facility] [address], Medical Office [facility] [address], [place] [address] RBC 3.64(L) 3.90 - 5.20 M/cumm [facility] ([place]) Comment:Testing performed by : [facility] [address], Medical Office [facility] [address], [place] [address] MCV 72.0(L) 81.3 - 96.4 fL [facility] ([place]) Comment:Testing performed by : [facility] [address], Medical Office [facility] [address], [place] [address] MCH 20.6(L) 27.1 - 33.3 pg [facility] ([place]) Comment:Testing performed by : [facility] [address], Medical Office [facility] [address], [place] [address] MCHC 28.6(L) 32.3 - 35.7 g/dL [facility] ([place]) Comment:Testing performed by : [facility] [address], Medical Office [facility] [address], [place] [address] RDW CV 21.4(H) 11.1 - 14.9 % [facility] ([place]) Comment:Testing performed by : [facility] [address], Medical Office [facility] [address], [place] [address] RDW SD 56.4(H) 35.7 - 48.1 fL [facility] ([place]) Comment:Testing performed by : [facility] [place], 4 [facility] , Medical Office [facility] [address], [place] [address] NRBC abs Not Measured 0.00 - 0.01 K/cumm [facility] ([place]) Comment:Testing performed by : [facility] [place], 4 [facility] , Medical Office [facility] [address], [place] [address] Blood 01/31/2024 9:20 AM CDT 01/31/2024 9:41 AM CDT Mia Barger TRACK SWEEPER LAB BLOOD ORDERABLES Final Result [facility] ([place]) 1 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
--- OUTSIDE RECORDS SUMMARY | 2024-10-22 00:23 | XMS_ITS | Clinical Summary ---
Author Organization [facility] Address [address] [place] [address] Care Team Providers Care Assembler Final Name Role Phone Gideon Campbell MD Primary Care Provider [phone] Allergies No known active allergies Medications ascorbic [...] Wellness Visit has been performed today. Quin Thomasonner is up to date on screening tests. [...] 06/15/2023 Assessment & Plan (10/18/2023 2:47 PM FLARING MACHINE OPERATOR): Worsening sx at this time Weight loss 01/27/2023 Assessment & Plan (10/18/2023 2:38 PM FLARING MACHINE OPERATOR): Wt Readings from Last 3 Encounters: 10/18/23 [...] is recommended that he remain anticoagulated for thromboprophylaxis.[id number]=3. Left carotid bruit 10/13/2017 Ventricular ectopy 05/17/2017 [...] 04/07/2017 Assessment & Plan (10/18/2023 2:39 PM FLARING MACHINE OPERATOR): BP Readings from Last 3 Encounters: 10/18/23 [...] EKG. Assessment & Plan (08/19/2017 10:05 AM FLARING MACHINE OPERATOR): Post repeat ablation of her highly symptomatic [...] an office visit and 12 lead EKG. intermediate 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 0 03/29/2017 [...] bleeding Assessment & Plan (08/19/2017 10:05 AM FLARING MACHINE OPERATOR): She remains anticoagulated on Coumadin. She has a [id number] score of 4, therefore it is recommended that she remain anticoagulated for thromboprophylaxis. Assessment & Plan (05/17/2017 2:10 PM CDT): She remains anticoagulated with Coumadin.She has a [id number]-YSDr score of 4(annualized stroke risk of 4%), [...] Pneumococcal Conjugate Pcv20 10/18/2023(Deferred : Patient Refused) Surgical History Surgery Date Site/Laterality Comments TONSILLECTOMY FL FLUORO GUIDED INJECTION HIP LEFT 06/26/2020 Left FL FLUORO GUIDED INJECTION HIP LEFT 10/23/2021 Left CATARACT EXTRACTION 10/11/2008 - 10/10/2009 JOINT REPLACEMENT left hip April 07, 2022 Medical History Medical History Date Comments Gastroesophageal reflux disease GERD Hx Other Medical 2005 PAD - non-occl. femoral sclerosis Hx Other Medical R. 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 Family History Medical History Relation Name Comments Cancer Father Rigo Oneill Hearing loss Father Rigo Oneill Heart attack Father Rigo Oneill Myocardial in farction; Unexplained Mother natural ca uses Relation Name Status Comments Father Rigo Oneill (Age 86) Mother (Age 95) Social History Tobacco Use Types Packs/Day Years [...] on file Legal Sex Female 8:30 AM FLARING MACHINE OPERATOR Gender Identity Female 10/06/2021 4:28 PM FLARING MACHINE OPERATOR Sexual Orientation Choose not to disclose 2020 4:28 PM FLARING MACHINE OPERATOR Obstetrics History Last Filed Vital Signs Vital Sign Reading [...] Body Mass Index 21.52 12/13/2023 10:47 AM FLARING MACHINE OPERATOR Plan of Treatment Health Maintenance Due Date Last Done Comments DTaP/Tdap/Td Vaccine (1 - Tdap) 1948 Hepatitis B Screening 1955 Zoster Vaccine (1 of 2) 1987 Pneumococcal vaccine 65+ (1 of 1 - PCV) 2002 Covid-19 Vaccine (5 - 2023-2 5 season) 2024 03/16/2022, 08/13/2021, 12/06/2020, Additional history exists Influenza Vaccine (#1) 2024 3, 06/18/2023, 08/06/2022, Additional history exists Fall Risk Assessment 07/29/2024 07/29/2023, 07/08/20 23 Well Visit 65+ 07/29/2024 07/29/2023 Depression Screening 10/18/2024 10/18/2023, 07/29/2023, 07/08/2023 Insurance MEDICARE [facility] MEDICARE SOLUTIONS MEDICARE SOLUTIONS Care Teams Assembler Final Relationship Specialty Start Date End Date Gideon Campbell MD [address] [facility] [place] [address] PCP - General Family Medicine 07/19/23
--- OUTSIDE RECORDS SUMMARY | 2024-10-22 00:23 | XMS_ITS | Encounter Summary ---
Author Organization [facility] Address [address] [place] [address] Phone Care Team Providers Care Submarine Operator Name Role Phone Gideon Campbell MD Primary Care Provider [phone] Encounter Details Date Type Department Care Team (Late st Contact Info) Description 02/22/2024 Telephone [facility] Oncology [address] [place] [id number] Yamileth Santiago, JACOB Social History Tobacco Use Types Packs/Day Years [...] on file Legal Sex Female 8:30 AM HEALTH ACTUARY Gender Identity Female 10/06/2021 4:28 PM HEALTH ACTUARY Sexual Orientation Choose not to disclose 2020 4:28 PM HEALTH ACTUARY documented as of this encounter Miscellaneous Notes * Telephone Encounter - Yamileth Santiago CLT - 02/22/2024 1:44 PM CDT PATIENT CALLED IN TO CANCEL APPT., DOES NOT WANT TO RESCHEDULE AT THIS TIME documented in this encounter Plan of Treatment Not on file documented as of this encounter Visit Diagnoses Not on filedocumented in this encounter Care Teams Submarine Operator Relationship Specialty Start Date End Date Gideon Campbell MD 2 [facility] [address] [place] [address] PCP - General Family Medicine 07/19/23 documented as of this encounter
--- OUTSIDE RECORDS SUMMARY | 2024-10-22 00:23 | XMS_ITS | Encounter Summary ---
Author Organization [facility] Healthcare Address [address] [place] [address] Care Team Providers Care Weekend Anchor Name Role Phone Gideon Campbell MD Primary Care Provider [phone] Reason for Referral * Consultation (Routine) - Authorized Specialty Diagnoses / Procedures Referred By Contac t Referred To Contact Pain Management Diagnoses Chronic joint pain Chronic back pain, unspecified back location, unspecified back pain laterality Gideon Campbell MD [address] [place] [address] [address] [place] [address] Phone: tel: fax: Wendi Washington MD Phone: tel: fax: Referral ID Status Reason Start Date Expiration Date Visits Requested Visits Authorized [id number] Authorized Specialty Services Required 02/15/2024 03/16/2025 1 1 Question Answer Please select the performing region: [facility] [144] To provider: WENDI WASHINGTON [[id number]] # of visits: 1 Comments Or other Provider * Consultation (Routine) - Closed Specialty Diagnoses / Procedures Referred By Contac t Referred To Contact Gastroenterology Diagnoses Other iron 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 Gideon Campbell MD 2 [facility] [address] [place] [address] Phone: tel: fax: Maynor Reyna MD 2 [facility] [address] [place] [address] Phone: tel: fax: Referral ID Status Reason Start Date Expiration Date V isits Requested Visits Authorized [id number] Closed Specialty Services Required 02/15/2024 03/16/2025 1 1 Question Answer Please select the performing region: External Order [171] To provider: MAYNOR REYNA [[id number]] # of visits: 1 Comments [facility] [address]Khalid Reyna (P) [phone] (F) [phone] Encounter Details Date Type Department Care Team (Late st Contact Info) Description 02/15/2024 Orders Only [facility] Primary [facility] [place] 2 [facility] [address] [place] [address] Gideon Campbell MD [address] [place] [address] [address] [place] [address] Other iron 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; Chronic joint pain; Chronic back pain, unspecified back location, unspecified back pain laterality Social History Tobacco Use Types Packs/Day Years [...] on file Legal Sex Female 8:30 AM OPTOELECTRONICS ENGINEER Gender Identity Female 10/06/2021 4:28 PM OPTOELECTRONICS ENGINEER Sexual Orientation Choose not to disclose 2020 4:28 PM OPTOELECTRONICS ENGINEER documented as of this encounter Plan of Treatment Scheduled Referrals Name Type Priority Associated Diagnoses Order Schedule Ambulatory referral to Gastroenterology Outpatient Referral Routine Other iron 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 Expected: 02/15/2024 (Approximate), Expires: 02/14/2025 Ambulatory referral to Pain Management Outpatient Referral Routine Chronic joint pain Chronic back pain, unspecified back location, unspecified back pain laterality Expected: 02/15/2024 (Approximate), Expires: 02/14/2025 documented as of this encounter Visit Diagnoses Diagnosis Other iron 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 Chronic joint pain Pain in joint, site unspecified Chronic back pain, unspecified back location, unspecified back pain laterality documented in this encounter Care Teams Weekend Anchor Relationship Specialty Start Date End Date Gideon Campbell MD [address] [facility] [address] [place] [address] PCP - General Family Medicine 07/19/23 documented as of this encounter
--- OUTSIDE RECORDS SUMMARY | 2024-10-22 00:23 | XMS_ITS | Encounter Summary ---
Author Organization [facility] Healthcare Address [address] [place] [address] Care Team Providers Care Sap Hana Developer Name Role Phone Gideon Campbell MD Primary Care Provider [phone] Encounter Details Date Type Department Care Team (Late st Contact Info) Description 01/14/2024 Telephone [facility] Orthopedics and Sports Medicine 4 [facility] [address] [place] [address] Herber Knott MD [address] [place] [address] [address] [place] [address] Social History Tobacco Use Types Packs/Day Years [...] on file Legal Sex Female 8:30 AM ALUMNI SECRETARY Gender Identity Female 10/06/2021 4:28 PM ALUMNI SECRETARY Sexual Orientation Choose not to disclose 2020 4:28 PM ALUMNI SECRETARY documented as of this encounter Miscellaneous Notes * Telephone Encounter - Tiana Beltran MA - 01/14/2024 3:16 PM CDT Spoke to patients daughter advised we are going to cancel appointment for her mother until she has been worked up completely, iron deficiency taken care of and any other issues that need addressed. The daughter stated her mother will go back to Dr. Lofton again on 01/31/24. Daughter states she would like to change her mother's PCP to [place] where all the family lives and this be much easier. Daughter stated understanding and agreed with proposed plan. Thank you * Telephone Encounter - Emerald Malone - 01/14/2024 2:50 PM CDT Patients daughter Nel called in and LVM stating that patient needs to be seen for over all bodypain. I called daughter back (on HIPAA) and informed her that we typically only treat one body part, that it would be best contact primary care doctor. Patients daughter requested to be scheduled with Dr. Garnica for R hip pain to discuss options since her previous surgery was cancelled due to bad labs. I scheduled patient but then spoke to Pam to discuss if apt needs to be cancelled due to her not being a surgery candidate. Will touch base with patient after reviewing with Pam. documented in this encounter Plan of Treatment Not on file documented as of this encounter Visit Diagnoses Not on filedocumented in this encounter Care Teams Sap Hana Developer Relationship Specialty Start Date End Date Gideon Campbell MD 2 [facility] [place] [address] [place], [place] [address] PCP - General Family Medicine 07/19/23 documented as of this encounter
--- OUTSIDE RECORDS SUMMARY | 2024-10-22 00:24 | XMS_ITS | Encounter Summary ---
Author Organization [facility] Address [address] [place] [address] Phone Care Team Providers Care Cooperer Name Role Phone Gideon Campbell MD Primary Care Provider [phone] Encounter Details Date Type Department Care Team (Late st Contact Info) Description 10/28/[address] [facility] Oncology [address] [place] [phone] Yamileth Santiago, JACOB Social History Tobacco [...] on file Legal Sex Female 8:30 AM TERADATA ARCHITECT Gender Identity Female 10/06/2021 4:28 PM TERADATA ARCHITECT Sexual Orientation Choose not to disclose 2020 4:28 PM TERADATA ARCHITECT documented as of this encounter Miscellaneous Notes * Telephone Encounter - Carmela Puri RN - 10/29/2023 8:12 AM TERADATA ARCHITECT Patient's daughter was called and reviewed lab test results with her. Patient to start on Slow Fe otc tablets 1 daily and FU labs and DV in 6 weeks./res DATA ARCHITECT documented in this encounter Plan of Treatment Not on file documented as of this encounter Visit Diagnoses Not on filedocumented in this encounter Care Teams Cooperer Relationship Specialty Start Date End Date Gideon Campbell MD [address] [facility] [address] [place] [id number] PCP - General Family Medicine 07/19/23 documented as of this encounter
--- OUTSIDE RECORDS SUMMARY | 2024-10-22 00:24 | XMS_ITS | Encounter Summary ---
Author Organization [facility] Address [address] [place] [address] Phone Care Team Providers Care Director Medical Name Role Phone Gideon Campbell MD Primary Care Provider [phone] Encounter Details Date Type Department Care Team (Late st Contact Info) Description 10/25/2023 Telephone [facility] Oncology [address] [place] [phone] Deborah Armstrong, JACOB Social History Tobacco Use Types Packs/Day [...] on file Legal Sex Female 8:30 AM PROCUREMENT AGENT Gender Identity Female 10/06/2021 4:28 PM PROCUREMENT AGENT Sexual Orientation Choose not to disclose 2020 4:28 PM PROCUREMENT AGENT documented as of this encounter Miscellaneous Notes * Telephone Encounter - Deborah Armstrong CLT - 10/25/2023 1:08 PM PROCUREMENT AGENT Patient's daughter Nel Sheikh called regarding lab results. Nel's number is [phone]. Carmela will return her call. UREMENT AGENT documented in this encounter Plan of Treatment Not on file documented as of this encounter Visit Diagnoses Not on filedocumented in this encounter Care Teams Director Medical Relationship Specialty Start Date End Date Gideon Campbell MD 2 [facility] [address] [place] [id number] PCP - General Family Medicine 07/19/23 documented as of this encounter
--- OUTSIDE RECORDS SUMMARY | 2024-10-22 00:24 | XMS_ITS | Encounter Summary ---
Author Organization [facility] Address [address] [place] [address] Care Team Providers Care Stock Clipper Name Role Phone Gideon Campbell MD Primary Care Provider [phone] Reason for Visit * Reason Comments OP Infusion * Episode Based Medications (Routine) - Closed Specialty Diagnoses / Procedures Referred By Contac t Referred To Contact Diagnoses 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 secondary to inadequate dietary iron intake Anemia, unspecified type Microcytic anemia Luis F Lofton MD [address] [place] [address] Phone: tel: fax: [address] [address] Phone: tel: Referral ID Status Reason Start Date Expiration Date Visits Re quested Visits Authorized [id number] Closed 12/23/2023 12/22/2024 3 3 Encounter Details Date Type Department Care Team (Late st Contact Info) Description 01/11/2024 9:00 AM CDT Infusion [address] [place] [phone] 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 secondary to inadequate dietary iron intake (Primary Dx); 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, unspecified iron 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 type; Anemia, unspecified type; Microcytic anemia Social History Tobacco Use Types Packs/Day Years [...] on file Legal Sex Female 8:30 AM 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 OF 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 Gender Identity Female 10/06/2021 4:28 PM DIRECTOR OF 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 Sexual Orientation Choose not to disclose 2020 4:28 PM DIRECTOR OF 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 documented as of this encounter Last Filed Vital Signs Vital Sign Reading Time Taken Comments Blood Pressure 158/49 01/11/2024 9:06 AM CDT Pulse 71 01/11/2024 9:06 AM CDT Temperature 36.3 ??C (97.3 ??F) 01/11/2024 9:06 AM CD T Respiratory Rate 20 01/11/2024 9:06 AM CDT Oxygen Saturation 100% 01/11/2024 9:06 AM CDT Inhaled Oxygen Concentration - - Weight - - Height - - Body Mass Index - - documented in this encounter Nursing Notes * Carmela Tirado RN - 01/11/2024 9:00 AM CDT The patient presented to the infusion center per Dr. Lofton for Venofer. The patients vital signs are stable and she has no questions or concerns. The IV was started in the left arm, blood return was noted and it flushed without resistance. Venofer was administered as ordered per DEC. Infusion completed and the patients IV was then flushed with NS and discontinued She was given her discharge instructions and left in stable condition. documented in this encounter Plan of Treatment Not on file documented as of this encounter Visit Diagnoses Diagnosis 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 secondary to inadequate dietary iron intake- Primary 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, unspecified iron 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 type Anemia, unspecified type Microcytic anemia Unspecified iron 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 documented in this encounter Administered Medications Inactive Administered Medications - up to 3 most recent administrations Medication Order MAR Action Action Date Dose Rate Site iron sucrose (VENOFER) 300 mg in sodium chloride 0.9% 250 mL IVPB 300 mg, intravenous, at 176.7 mL/hr, Administer over 90 Minutes, Once, On Wed01/11/24 at 0945, For 1 doseIndications: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 secondary to inadequate dietary iron intake,Anemia, unspecified type,Microcytic anemia New Bag 01/11/2024 9:15 AM CDT 300 mg 176.7 mL /hr sodium chloride 0.9% flush 10 mL 10 mL, intravenous, As needed, line care, Starting on Wed01/11/24 at 0914, Flush pre and post IV catheter use.Indications: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 secondary to inadequate dietary iron intake,Anemia, unspecified type,Microcytic anemia Given 01/11/2024 10:58 AM CDT 10 mL documented in this encounter Orders Appointment Requests Count Last Ordered Date Fi rst Ordered Date ONCBCN INFUSION APPT REQUEST 1 01/11/2024 documented in this encounter Care Teams Stock Clipper Relationship Specialty Start Date End Date Gideon Campbell MD 2 [facility] [address] [place] [id number] PCP - General Family Medicine 07/19/23 documented as of this encounter
--- OUTSIDE RECORDS SUMMARY | 2024-10-22 00:24 | XMS_ITS | Encounter Summary ---
Author Organization [facility] Address [address] [place] [address] Phone Care Team Providers Care Funeral Director/Embalmer Name Role Phone Gideon Campbell MD Primary Care Provider [phone] Reason for Visit * Reason Comments Follow-up FPC use (curre nt) of anticoagulant * Diagnostic Lab (Routine) - Canceled Specialty Diagnoses / Procedures Referred By Contac t Referred To Contact Lab Diagnoses 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, unspecified iron 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 type PAD (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) ([facility]) Procedures ESR - Miscellaneous Test ESR - Miscellaneous Test Luis F Lofton MD [address] [place] [address] [place] [address] Phone: tel: fax: Referral ID Status Reason Start Date Expiration Date V isits Requested Visits Authorized [id number] Canceled 10/28/2023 11/26/2024 1 1 Encounter Details Date Type Department Care Team (Late st Contact Info) Description 12/13/2023 10:15 AM GEOMORPHOLOGIST Office Visit [facility] Oncology [address] [place] [address] [place] [phone] Luis F Lofton MD [address] [place] [address] [place], [place] [id number] 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, unspecified iron 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 type; FPC (current) use of anticoagulants; PAD (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) ([facility]) Social History Tobacco Use Types Packs/Day Years [...] on file Legal Sex Female 8:30 AM GEOMORPHOLOGIST Gender Identity Female 10/06/2021 4:28 PM GEOMORPHOLOGIST Sexual Orientation Choose not to disclose 2020 4:28 PM GEOMORPHOLOGIST documented as of this encounter Last Filed Vital Signs Vital Sign Reading Time Taken Comments Blood Pressure 144/76 12/13/2023 10:47 AM GEOMORPHOLOGIST Pulse 77 12/13/2023 10:47 AM GEOMORPHOLOGIST Temperature 36.3 ??C (97.3 ??F) 12/13/2023 10:[address] Respiratory Rate 20 12/13/2023 10:47 AM GEOMORPHOLOGIST Oxygen Saturation 99% 12/13/2023 10:47 AM GEOMORPHOLOGIST Inhaled Oxygen Concentration - - Weight 54.4 kg (120 lb) 12/13/2023 10:47 AM GEOMORPHOLOGIST Height 161.3 cm (5' 3.5 ) 12/13/2023 10:47 AM CS T Body Mass Index 20.92 12/13/2023 10:47 AM GEOMORPHOLOGIST documented in this encounter Ordered Prescriptions Prescription Sig Dispense Quantity Refills Last Filled Start Date End Date ferrous sulfate 325 mg (65 mg of elemental iron) tabletIndications: Iron Deficiency Anemia Take 1 tablet (65 mg of elemental iron total) by mouth daily with breakfast 90 tablet 2 12/13/2023 documented in this encounter Progress Notes * Mia Barger, GANG SUPERVISOR - 12/13/2023 10:15 AM CST Images from the original note were not [...] her anemia. She is with leg pain anconstipation. She dizziness and SOB. Review of Systems Review of systems positive for symptoms as per interval history. All other review of systems negative. Objective Vitals: Vitals: 12/13/23 1047 BP: 144/76 BP Location: Right arm Pulse: 77 Resp: 20 Temp: 36.3 ??C (97.3 ??F) TempSrc: Skin SpO2: 99% Weight: 54.4 kg (120 lb) Height: 161.3 cm (5' 3.5 ) PHYSICAL EXAM: Physical Exam -GENERAL: calm -EYES: Extraocular movements intact -ENT: Neck supple. -LUNG: Clear to auscultation bilaterally, No wheezes, No crackles -CVS: Regular rate rhythm, S1 and S2 normal, No murmurs, -EXT: no lower Ext edema. -NEURO: no deficit -SKIN: Skin color, texture, turgor normal. No rashes or lesions Lab/Radiology/Diagnostic Review: Hematology Lab History Latest Ref Rng & Units 06/16/2023 10:05 07/08/2023 13:30 10/18/2023 10:35 12/13/2023 10:15 Labs - Hematology WBC 3.8 - 9.9 K/cumm 7.3 6.2 6.9 6.2 Total Hb, POC 11.9 - 15.5 g/dL 8.1 7.6 7.3 7.5 Hct 35.6 - 45.5 % 28.2 26.6 26.3 26.7 Plt 150 - 400 K/cumm 597 510 507 559 Neutrophil abs 1.5 - 6.5 K/cumm 6.0 5.1 6.0 5.0 Lymphocytes, abs 0.8 - 3.3 K/cumm 0.7 0.7 0.5 0.7 Chemistry Component Value Date/Time SODIUM 137 06/16/2023 1005 POTASSIUM 4.0 06/16/2023 1005 CHLORIDE 99 06/16/2023 1005 CO2 25 06/16/2023 1005 BUNSER 14 06/16/2023 1005 CREATININE 0.76 06/16/2023 1005 GLUCOSE 104 06/16/2023 1005 Component Value Date/Time CALCIUM 9.2 06/16/2023 1005 ALKPHOS 115 06/16/2023 1005 AST 8 (L) 06/16/2023 1005 ALT 6 (L) 06/16/2023 1005 BILITOT 0.5 06/16/2023 1005 Tumor Marker History Latest Ref Rng & Units 10/18/2023 13:00 Tumor Markers Fibrinogen 170 - 400 mg/dL 533 No results found. Recent labs, radiology and pathology reviewed in [facility] ASSESSMENT: CARLOS likely from GI with reactive thrombocytosis: Hemoglobin 7.5, MCV 67.1, and platelets 559 K. WBC normal. Ferritin 216, iron 14, TIBC 172, and TSAT 8%. With reticulocyte count of 1.0 and ESR elevated at 93. PT/INR: 14.2/1.25 slightly above normal. Will hold on further work up as recommended by Dr. Lofton. PLAN: Start oral iron slower release. She will return for office visit in 4 weeks with repeat laboratory studies. I have discussed the assessment and plan of care of this patient with my collaborating physician. PENELOPE Arriaga Nurse Practitioner Medical Oncology [facility] ORPHOLOGIST documented in this encounter Miscellaneous Notes * Addendum Note - Sarita Parnell CLT - 12/13/2023 10:15 AM CSTAddended by: SARITA PARNELL on: 01/31/2024 09:20 AM Modules accepted: Orders documented in this encounter Plan of Treatment Not on file documented as of this encounter Results * (ABNORMAL) CBC with auto differential (01/31/2024 9:20 AM CDT) WBC 5.2 3.8 - 9.9 K/cumm Comment:Testing performed by : [facility] [address], Medical Office [facility] [address], [place] [address] Hgb 7.5(L) 11.9 - 15.5 g/dL [facility] ([place]) Comment:Testing performed by : [facility] [address], Medical Office [facility] [address], [place] [address] Hct 26.2(L) 35.6 - 45.5 % [facility] ([place]) Comment:Testing performed by : [facility] [address], Medical Office [facility] [address], [place] [address] Plt 468(H) 150 - 400 K/cumm [facility] ([place]) Comment:Testing performed by : [facility] [address], Medical Office [facility] [address], [place] [address] MPV 8.7(L) 9.1 - 12.3 fL [facility] ([place]) Comment:Testing performed by : [facility] [address], Medical Office [facility] [address], [place] [address] RBC 3.64(L) 3.90 - 5.20 M/cumm [facility] ([place]) Comment:Testing performed by : [facility] [address], Medical Office [facility] [address], [place] [address] MCV 72.0(L) 81.3 - 96.4 fL [facility] ([place]) Comment:Testing performed by : [facility] [address], Medical Office [facility] [address], [place] [address] MCH 20.6(L) 27.1 - 33.3 pg [facility] ([place]) Comment:Testing performed by : [facility] [address], Medical Office [address], [place] [address] MCHC 28.6(L) 32.3 - 35.7 g/dL [facility] ([place]) Comment:Testing performed by : [facility] [address], Medical Office [facility] [address], [place] [address] RDW CV 21.4(H) 11.1 - 14.9 % [facility] ([place]) Comment:Testing performed by : [facility] [address], Medical Office [facility] [address], [place] [address] RDW SD 56.4(H) 35.7 - 48.1 fL [facility] ([place]) Comment:Testing performed by : [facility] [address], Medical Office [facility] [address], [place] [address] NRBC abs Not Measured 0.00 - 0.01 K/cumm [facility] ([place]) Comment:Testing performed by : [facility] [address], Medical Office [facility] [address], [place] [address] Blood 01/31/2024 9:20 AM CDT 01/31/2024 9:41 AM CDT us Mia Barger GANG SUPERVISOR LAB BLOOD ORDERABLES Final Result [facility] ([place]) [address] [facility] [place] [address] * (ABNORMAL) Protime-INR (12/13/2023 11:30 AM GEOMORPHOLOGIST) PT 14.2(H) 10.3 - 13.7 sec [facility] ([place]) Comment:Testing performed by : [facility], [place], [address] INR 1.25(H) 0.90 - 1.20 [facility] ([place]) Comment: Interpretive data Oral anticoagulant therapeutic ranges: Venous thromboembolism prophylaxis or treatment: 2.0-3.0 CARDIOLOGY Standard range: 2.0-3.0 High-intensity range: 2.5-3.5 Refer to indication-specific guidelines for appropriate target ranges for prosthetic heart valve replacement. Current interpretive data was last revised on 2019. Testing performed by: [facility], [place], [address] Blood 12/13/2023 11:3 0 AM GEOMORPHOLOGIST 12/13/2023 12:04 PM GEOMORPHOLOGIST us Mia Barger GANG SUPERVISOR LAB BLOOD ORDERABLES Final Result [facility] ([place]) [address] [place] [address] [place] [address] documented in this encounter Visit Diagnoses Diagnosis 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, unspecified iron 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 type terminal gauger (current) use of anticoagulants Long-term (current) use of anticoagulants PAD (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) (HCC) Unspecified peripheral vascular disease documented in this encounter Orders Appointment Requests Count Last Ordered Date Fi rst Ordered Date ONCBCN CLINIC APPOINTMENT REQUEST 2 024 ONCBCN LAB APPOINTMENT 1 12/13/2023 documented in this encounter Care Teams Funeral Director/Embalmer Relationship Specialty Start Date End Date Gideon Campbell MD [address] [facility] [address] [place] [address] PCP - General Family Medicine 07/19/23 documented as of this encounter
--- OUTSIDE RECORDS SUMMARY | 2024-10-22 00:24 | XMS_ITS | Encounter Summary ---
Author Organization [facility] Healthcare Address [address] [place] [address] Care Team Providers Care Lei Seller Name Role Phone Gideon Campbell MD Primary Care Provider [phone] Reason for Visit * Reason Comments OP Infusion * Episode Based Medications (Routine) - Closed Specialty Diagnoses / Procedures Referred By Contac t Referred To Contact Diagnoses 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 secondary to inadequate dietary iron intake Anemia, unspecified type Microcytic anemia Luis F Lofton MD [address] [place] [address] Phone: tel: fax: [address] [place] [phone] Phone: tel: Referral ID Status Reason Start Date Expiration Date Visits Re quested Visits Authorized [id number] Closed 12/23/2023 12/22/2024 3 3 Encounter Details Date Type Department Care Team (Late st Contact Info) Description 12/28/2023 9:00 AM CDT Infusion [address] [place] [phone] 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 secondary to inadequate dietary [...] on file Legal Sex Female 8:30 AM FOOD SERVICE 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 ATTENDANT Gender Identity Female 10/06/2021 4:28 PM FOOD SERVICE TRAY ATTENDANT Sexual Orientation Choose not to disclose 2020 4:28 PM FOOD SERVICE TRAY ATTENDANT documented as of this encounter Last Filed Vital Signs Vital Sign Reading Time Taken Comments Blood Pressure 159/55 12/28/2023 9:10 AM CDT Pulse 75 12/28/2023 9:10 AM CDT Temperature 36.2 ??C (97.1 ??F) 12/28/2023 9:10 AM CD T Respiratory Rate 20 12/28/2023 9:10 AM CDT Oxygen Saturation 100% 12/28/2023 9:10 AM CDT Inhaled Oxygen Concentration - - Weight - - Height - - Body Mass Index - - documented in this encounter Nursing Notes * Glynn Zheng RN - 12/28/2023 9:00 AM CDT Patient presented to infusion center for venofer infusion. Vitals were taken and stable. All patient questions answered. IV was placed in left arm and showed brisk blood return and easy flush. Venofer was given per order and tolerated well by patient. IV was removed after reassessing for brisk blood return and easy flush. AVS was printed and presented to patient who was discharged in stable condition. documented in this encounter [...] mL/hr, Administer over 90 Minutes, Once, On Wed12/28/23 at 0945, For 1 doseIndications: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 secondary to inadequate dietary iron intake,Anemia, unspecified type,Microcytic anemia New Bag 12/28/2023 9:34 AM CDT 300 mg 176.7 mL /hr sodium chloride 0.9% flush 10 mL 10 mL, intravenous, As needed, line care, Starting on Wed12/28/23 at 0905, Flush pre and post IV catheter use.Indications: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 secondary to inadequate dietary iron intake,Anemia, unspecified type,Microcytic anemia Given 12/28/2023 11:14 AM CDT 10 mL documented in this encounter Orders Appointment Requests Count Last Ordered Date Fi rst Ordered Date ONCBCN INFUSION APPT REQUEST 1 12/28/2023 documented in this encounter Care Teams Lei Seller Relationship Specialty Start Date End Date Gideon Campbell MD [address] [place] [address] [address] [place] [id number] PCP - General Family Medicine 07/19/23 documented as of this encounter
--- OUTSIDE RECORDS SUMMARY | 2024-10-22 00:24 | XMS_ITS | Encounter Summary ---
Author Organization [facility] Address [address] [place] [address] Care Team Providers Care House Fellow Name Role Phone Gideon Campbell MD Primary Care Provider [phone] Encounter Details Date Type Department Care Team (Late st Contact Info) Description 12/23/2023 Orders Only [facility] 4 [facility] [address] [place] [address] Luis F Lofton MD [address] [place] [address] [address] [place] [address] Social History Tobacco Use Types Packs/Day Years [...] on file Legal Sex Female 8:30 AM DECISION SCIENCE ANALYST Gender Identity Female 10/06/2021 4:28 PM DECISION SCIENCE ANALYST Sexual Orientation Choose not to disclose 2020 4:28 PM DECISION SCIENCE ANALYST documented as of this encounter Plan of Treatment Not on file documented as of this encounter Visit Diagnoses Not on filedocumented in this encounter Care Teams House Fellow Relationship Specialty Start Date End Date Gideon Campbell MD [address] [facility] [address] [place] [address] PCP - General Family Medicine 07/19/23 documented as of this encounter
--- OUTSIDE RECORDS SUMMARY | 2024-10-22 00:24 | XMS_ITS | Encounter Summary ---
Author Organization [facility] Address [address] [place] [address] Phone Care Team Providers Care Denture Processor Name Role Phone Gideon Campbell MD Primary Care Provider [phone] Encounter Details Date Type Department Care Team (Late st Contact Info) Description 12/23/2023 Orders Only [facility] Oncology [address] [place] [phone] Karen Giles RN 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, unspecified iron 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 [...] on file Legal Sex Female 8:30 AM CARPENTER WOODEN TANK ERECTING Gender Identity Female 10/06/2021 4:28 PM CARPENTER WOODEN TANK ERECTING Sexual Orientation Choose not to disclose 2020 4:28 PM CARPENTER WOODEN TANK ERECTING documented as of this encounter Plan of Treatment Not on file documented as of this encounter Visit Diagnoses Diagnosis 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, unspecified iron 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 type- Primary documented in this encounter Orders Appointment Requests Count Last Ordered Date Fi rst Ordered Date ONCBCN INFUSION APPT REQUEST 3 01/11/2024 12/28/2023 documented in this encounter Care Teams Denture Processor Relationship Specialty Start Date End Date Gideon Campbell MD [address] [facility] [address] [place] [phone] PCP - General Family Medicine 07/19/23 documented as of this encounter
--- OUTSIDE RECORDS SUMMARY | 2024-10-22 00:24 | XMS_ITS | Encounter Summary ---
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 Procedures pROTIME MIXING TEST - Miscellaneous Test Luis F Lofton MD [address] [place] [id number] Phone: tel: fax: Referral ID Status Reason Start Date Expiration Date V isits Requested Visits Authorized [id number] Canceled 10/18/2023 11/16/2024 1 1 Encounter Details Date Type Department Care Team (Late st Contact Info) Description 10/18/2023 10:30 AM SUPERVISOR TAN ROOM Lab [facility] 4 [facility] [address] [place] [phone] 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, unspecified iron 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 type (Primary Dx); 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 Social History Tobacco [...] on file Legal Sex Female 8:30 AM SUPERVISOR TAN ROOM Gender Identity Female 10/06/2021 4:28 PM SUPERVISOR TAN ROOM Sexual Orientation Choose not to disclose 2020 4:28 PM SUPERVISOR TAN ROOM documented as of this encounter Plan of Treatment Not on file documented as of this encounter Procedures Procedure Name Priority Date/Time Associated Diagnosis Comments PT MIXING STUDY Routine 10/18/2023 1:00 PM SUPERVISOR TAN ROOM APTT Routine 10/18/2023 1:00 PM SUPERVISOR TAN ROOM 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, unspecified iron 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 type 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 PROTIME-INR Routine 10/18/2023 1:00 PM SUPERVISOR TAN ROOM 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, unspecified iron 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 type senior care (current) use of anticoagulants FIBRINOGEN Routine 10/18/2023 1:00 PM SUPERVISOR TAN ROOM 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, unspecified iron 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 type 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 DIFFERENTIAL AUTO Routine 10/18/2023 10: 35 AM SUPERVISOR TAN ROOM 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, unspecified iron 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 type CBC WITH AUTO DIFFERENTIAL Routine 10/18/2023 10:35 AM SUPERVISOR TAN ROOM 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, unspecified iron 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 type documented in this encounter Results * PT mixing study (10/18/2023 1:00 PM SUPERVISOR TAN ROOM) PT 13.5 10.3 - 13.7 sec [facility] ([place]) Comment:Testing performed by : [facility], [address] [facility] [place]., [address] INR 1.18 0.90 - 1.20 [facility] ([place]) Comment: Interpretive data Oral anticoagulant therapeutic ranges: Venous thromboembolism prophylaxis or treatment: 2.0-3.0 CARDIOLOGY Standard range: 2.0-3.0 High-intensity range: 2.5-3.5 Refer to indication-specific guidelines for appropriate target ranges for prosthetic heart valve replacement. Current interpretive data was last revised on 2019. Testing performed by: [facility], [address] [place]., [address] PT, 50/50 mix See Comment 10.3 - 13.7 sec [facility] ([place]) Comment: Credited,Test Not Indicated. Interpretive data Evaluating an unexpected prolonged aPTT/PT begins with a 50:50 mix (patient plasma: pooled normal plasma). If the aPTT/PT is markedly prolonged and 50:50 mix corrects (to within or slightly above upper limit of aPTT/PT reference range), a deficiency of > 1 coagulation factor is likely. If aPTT/PT 50:50 mix does not correct, there may be an inhibitory antibody. Order testing for lupus anticoagulant (LA) or specific factor inhibitor (almost exclusively to FVIII), guided by clinical findings. FVIII inhibitors (and rarely LA) will partially correct immediately after 50:50 mix, but prolong again after 1 hour incubation. When the aPTT/PT is minimally prolonged, 50:50 mix complete correction is non-specific since a weak inhibitor may disappear on dilution. Anticoagulants (heparin, LMWH, argatroban, bivalirudin, dabigatran) prolong aPTT and behave like inhibitory antibodies in 50:50 mix. The lab will screen for them and cancel if present. Current interpretive data was last revised on 2019. Testing performed by: [facility], [address] [place]., [address] INR, 50/50 mix See Comment 0.90 - 1.20 [facility] ([place]) Comment: Credited,Test Not Indicated. Testing performed by: [facility], [address] [place]., [address] Blood 10/18/2023 1:00 PM SUPERVISOR TAN ROOM 10/18/2023 6:00 PM SUPERVISOR TAN ROOM Luis F Lofton MD LAB BLOOD ORDERABLES Final Re sult Performing Organization Address City/[facility] Co de Phone Number [facility] ([place]) 1 [facility] [place] [address] * (ABNORMAL) Fibrinogen (10/18/2023 1:00 PM SUPERVISOR TAN ROOM) Fibrinogen 533(H) 170 - 400 mg/dL [facility] ([place]) Comment:Testing performed by : [place], [address] Blood 10/18/2023 1:00 PM SUPERVISOR TAN ROOM 10/18/2023 2:08 PM SUPERVISOR TAN ROOM Luis F Lofton MD LAB BLOOD ORDERABLES Final Re sult Performing Organization Address [facility] de Phone Number [facility] ([place]) [address] [place] [address] Department [place] [address] * Protime-INR (10/18/2023 1:00 PM SUPERVISOR TAN ROOM) PT 13.7 10.3 - 13.7 sec [facility] ([place]) Comment:Testing performed by : [place], [address] INR 1.20 0.90 - 1.20 [facility] ([place]) Comment: Interpretive data Oral anticoagulant therapeutic ranges: Venous thromboembolism prophylaxis or treatment: 2.0-3.0 CARDIOLOGY Standard range: 2.0-3.0 High-intensity range: 2.5-3.5 Refer to indication-specific guidelines for appropriate target ranges for prosthetic heart valve replacement. Current interpretive data was last revised on 2019. Testing performed by: [place], [address] Blood 10/18/2023 1:00 PM SUPERVISOR TAN ROOM 10/18/2023 2:08 PM SUPERVISOR TAN ROOM Result [facility] Luis F Lofton MD LAB BLOOD ORDERABLES Final Re sult Performing Organization Address City/[facility]/ZIP Co de Phone Number [facility] ([place]) 1 [facility] Department [place] [address] * (ABNORMAL) aPTT (10/18/2023 1:00 PM SUPERVISOR TAN ROOM) aPTT 40(H) 28 - 38 sec [facility] ([place]) Comment: Interpretive Data Heparin therapeutic range: 66.0 - 100.0 seconds. Range based on correlation with therapeutic heparin activity range of 0.3 - 0.7 Units/mL. Current interpretive data was last revised on 2023. Testing performed by: [facility], One [facility], [place], [address] Blood 10/18/2023 1:00 PM SUPERVISOR TAN ROOM 10/18/2023 2:08 PM SUPERVISOR TAN ROOM Luis F Lofton MD LAB BLOOD ORDERABLES Final Re sult Performing Organization Address [facility] Co de Phone Number [facility] ([place]) 1 [facility] Department [place] [address] * (ABNORMAL) Differential, auto (10/18/2023 10:35 AM SUPERVISOR TAN ROOM) Neutrophil abs 6.0 1.5 - 6.5 K/cumm [facility] ([place]) Comment:Testing performed by : [facility] [address], Medical Office [facility] [address], [place] [address] Imm gran abs 0.0 0.0 - 0.1 K/cumm [facility] ([place]) Comment:Testing performed by : [facility] [address], Medical Office [facility] [address], [place] [address] Lymphocyte abs 0.5(L) 0.8 - 3.3 K/cumm [facility] ([place]) Comment:Testing performed by : [facility] [address], Medical Office [facility] [address], [place] [address] Monocyte abs 0.3 0.2 - 0.8 K/cumm [facility] ([place]) Comment:Testing performed by : [facility] [address], Medical Office [facility] [address], [place] [address] Eosinophil abs 0.1 0.0 - 0.5 K/cumm [facility] ([place]) Comment:Testing performed by : [facility] [address], Medical Office [facility] [address], [place] [address] Basophil abs 0.0 0.0 - 0.1 K/cumm [facility] ([place]) Comment:Testing performed by : [facility] [address], Medical Office [facility] [address], [place] [address] Neutrophil pct 87.1 % [facility] ([place]) Comment: Interpretive Data Percent cell count reference ranges are not reported, since discordance with absolute values may lead to misinterpretation of CBC data. Current Interpretive Data was last revised on 2022. Testing performed by: [facility] [address], Medical Office [facility] [address], [place] [address] Imm gran pct 0.1 % [facility] ([place]) Comment: Interpretive Data Percent cell count reference ranges are not reported, since discordance with absolute values may lead to misinterpretation of CBC data. Current Interpretive Data was last revised on 2022. Testing performed by: [facility] [address], Medical Office [facility] [address], [place] [address] Lymphocyte pct 7.4 % [facility] ([place]) Comment: Interpretive Data Percent cell count reference ranges are not reported, since discordance with absolute values may lead to misinterpretation of CBC data. Current Interpretive Data was last revised on 2022. Testing performed by: [facility] [address], Medical Office [facility] [address], [place] [address] Monocyte pct 3.9 % [facility] ([place]) Comment: Interpretive Data Percent cell count reference ranges are not reported, since discordance with absolute values may lead to misinterpretation of CBC data. Current Interpretive Data was last revised on 2022. Testing performed by: [facility] [address], Medical Office [facility] [address], [place] [address] Eosinophil pct 1.2 % [facility] ([place]) Comment: Interpretive Data Percent cell count reference ranges are not reported, since discordance with absolute values may lead to misinterpretation of CBC data. Current Interpretive Data was last revised on 2022. Testing performed by: [facility] [address], Medical Office [facility] B [facility] [address], [place] [address] Basophil pct 0.3 % [facility] ([place]) Comment: Interpretive Data Percent cell count reference ranges are not reported, since discordance with absolute values may lead to misinterpretation of CBC data. Current Interpretive Data was last revised on 2022. Testing performed by: [facility] [address], Medical Office [facility] B [facility] [address], [place] [address] Blood 10/18/2023 10:3 5 AM SUPERVISOR TAN ROOM 10/18/2023 10:36 AM SUPERVISOR TAN ROOM us Luis F Lofton MD LAB BLOOD ORDERABLES Final Re sult [facility] ([place]) 1 [facility] [place] [address] * (ABNORMAL) CBC with auto differential (10/18/2023 10:35 AM SUPERVISOR TAN ROOM) WBC 6.9 3.8 - 9.9 K/cumm [facility] ([place]) Comment:Testing performed by : [facility] [address], Medical Office [facility] [address], [place] [address] Hgb 7.3(L) 11.9 - 15.5 g/dL [facility] ([place]) Comment:Testing performed by : [facility] [address], Medical Office [facility] B [facility] [address], [place] [address] Hct 26.3(L) 35.6 - 45.5 % [facility] ([place]) Comment:Testing performed by : [facility] [address], Medical Office [facility] B [facility] [address], [place] [address] Plt 507(H) 150 - 400 K/cumm [facility] ([place]) Comment:Testing performed by : [facility] [address], Medical Office [facility] [address], [place] [address] MPV 8.5(L) 9.1 - 12.3 fL [facility] ([place]) Comment:Testing performed by : [facility] [address], Medical Office [facility] [address] [facility] [address], [place] [address] RBC 3.97 3.90 - 5.20 M/cumm [facility] ([place]) Comment:Testing performed by : [facility] [address], Medical Office [facility] B [facility] [address], [place] [address] MCV 66.2(L) 81.3 - 96.4 fL [facility] ([place]) Comment:Testing performed by : [facility] [address], Medical Office [facility] [address], [place] [address] MCH 18.4(L) 27.1 - 33.3 pg [facility] ([place]) Comment:Testing performed by : [facility] [address], Medical Office [facility] [address], [place] [address] MCHC 27.8(L) 32.3 - 35.7 g/dL [facility] ([place]) Comment:Testing performed by : [facility] [address], Medical Office [facility] B [facility] [address], [place] [address] RDW CV 19.4(H) 11.1 - 14.9 % [facility] ([place]) Comment:Testing performed by : [facility] [address], Medical Office [facility] B [facility] [address], [place] [address] RDW SD 46.5 35.7 - 48.1 fL [facility] ([place]) Comment:Testing performed by : [facility] [address], Medical Office [facility] [address], [place] [address] NRBC abs Not Measured 0.00 - 0.01 K/cumm [facility] ([place]) Comment:Testing performed by : [facility] [address], Medical Office [facility] [address], [place] [address] Blood 10/18/2023 10:3 5 AM SUPERVISOR TAN ROOM 10/18/2023 10:36 AM SUPERVISOR TAN ROOM us Luis F Lofton MD LAB BLOOD ORDERABLES Final Re sult [facility] ([place]) 1 [facility] Department [place] [address] documented in this encounter Visit Diagnoses Diagnosis 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, unspecified iron 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 type- Primary senior care (current) use of anticoagulants Long-term (current) use of anticoagulants documented in this encounter Care Teams Deicer Finisher Relationship Specialty Start Date End Date Gideon Campbell MD 2 [facility] [address] [address] PCP - General Family Medicine 07/19/23 documented as of this encounter
--- OUTSIDE RECORDS SUMMARY | 2024-10-22 00:24 | XMS_ITS | Encounter Summary ---
Author Organization [facility] Healthcare Address [address] [place] [address] Care Team Providers Care Administrative Secretary Name Role Phone Gideon Campbell MD Primary Care Provider [phone] Reason for Visit * Reason Comments Leg Pain Hip Pain Follow-up Pt is trying to get back on surgery list. Dr. Lofton found something in her lab that needs discussed. Leg Swelling Pt R leg and knee is swollen Encounter Details Date Type Department Care Team (Late st Contact Info) Description 10/18/2023 2:30 PM CATTLE BROKER Office Visit [facility] Primary Care at [address] [phone] Gideon Campbell MD [address] [place] [phone] Weight loss (Primary Dx); Essential hypertension; Primary osteoarthritis of right hip; Microcytic anemia Social History Tobacco Use Types [...] on file Legal Sex Female 8:30 AM CATTLE BROKER Gender Identity Female 10/06/2021 4:28 PM CATTLE BROKER Sexual Orientation Choose not to disclose 2020 4:28 PM CATTLE BROKER documented as of this encounter Last Filed Vital Signs Vital Sign Reading Time Taken Comments Blood Pressure 160/78 10/18/2023 2:18 PM CATTLE BROKER Pulse 63 10/18/2023 2:18 PM CATTLE BROKER Temperature - - Respiratory Rate 16 10/18/2023 2:18 PM CATTLE BROKER Oxygen Saturation 99% 10/18/2023 2:18 PM CATTLE BROKER Inhaled Oxygen Concentration - - Weight 59.1 kg (130 lb 4.8 oz) 10/18/2023 2:18 P M CATTLE BROKER Height 161.3 cm (5' 3.5 ) 10/18/2023 2:18 PM CATTLE BROKER Body Mass Index 22.72 10/18/2023 2:18 PM CATTLE BROKER documented in this encounter Ordered Prescriptions Prescription Sig Dispense Quantity Refills Last Filled Start Date End Date lidocaine (LIDODERM) 5 % Place 1 patch on the skin daily Apply to painful area 12 hours per day, remove for 12 hours. 90 patch 4 10/18/2023 documented in this encounter Progress Notes * Gideon Campbell MD - 10/18/2023 2:30 PM CST Images from the original note were not included. Subjective/Objective Patient ID: Quin Talley is a 88 y.o. female. Chief Complaint Leg Pain, Hip Pain, Follow-up (Pt is trying to get back on surgery list. Dr. oLfton found something in her lab that needs discussed. ), and Leg Swelling (Pt R leg and knee is swollen) HPI: Quin Talley 88 y.o. woman has a past medical history of Arthritis, Gastroesophageal refluxdisease, OTHER MEDICAL (2005), OTHER MEDICAL, Hypertension, and 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. who presents for follow up of leg pain and blood work abnormalities Daughter present today as indepdent historian PHQ Screening Over the last 2 weeks, how often have you been bothered by any of the following problems? Little Interest or Pleasure in Doing Things: Not at all Feeling Down, Depressed, or Hopeless: Not at all PHQ-2 Total Score (If total score is 3 or more points, staff should administer the PHQ-9): 0 Over the past 2 weeks, how often have you been bothered by any of the following problems? Little Interest or Pleasure in Doing Things: Not at all Feeling Down, Depressed, or Hopeless: Not at all PHQ-2 Total Score (If total score is 3 or more points, staff should administer the PHQ-9): 0 No Known Allergies Current Outpatient Medications Medication Sig Dispense Refill ascorbic acid (VITAMIN C) 500 mg tablet,chewable Take 1 tablet/chew tab (500 mg total) by mouth daily losartan (COZAAR) 100 mg tablet TAKE 1 TABLET BY MOUTH DAILY 90 tablet 1 No current facility-administered medications for this visit. Review of Systems Constitutional: Negative for chills and fever. Respiratory: Negative for cough, chest tightness and shortness of breath. Cardiovascular: Negative for chest pain and palpitations. Gastrointestinal: Negative for abdominal pain and diarrhea. Genitourinary: Negative for difficulty urinating. Musculoskeletal: Positive for arthralgias, gait problem and myalgias. Neurological: Negative for headaches. BP 160/78 (BP Location: Left arm, Patient Position: Sitting) Pulse 63 Resp 16 Ht 161.3 cm (5'3.5 ) Wt 59.1 kg (130 lb 4.8 oz) SpO2 99% BMI 22.72 kg/m?? Body mass index is 22.72 kg/m??. Physical Exam HENT: Head: Normocephalic. Right Ear: External ear normal. Left Ear: External ear normal. Nose: Nose normal. Eyes: Extraocular Movements: Extraocular movements intact. Pulmonary: Effort: Pulmonary effort is normal. Musculoskeletal: General: Normal range of motion. Cervical back: Normal range of motion. Right lower leg: Edema present. Left lower leg: Edema present. Neurological: Mental Status: She is alert and oriented to person, place, and time. Psychiatric: Mood and Affect: Mood normal. Behavior: Behavior normal. Lab Results Component Value Date WBC 6.9 10/18/2023 HGB 7.3 (L) 10/18/2023 HCT 26.3 (L) 10/18/2023 MCV 66.2 (L) 10/18/2023 LABPLAT 507 (H) 10/18/2023 Chemistry Lab Results Component Value Date SODIUM 137 06/16/2023 POTASSIUM 4.0 06/16/2023 CHLORIDE 99 06/16/2023 CO2 25 06/16/2023 ANIONGAP 14 06/16/2023 BUNSER 14 06/16/2023 CREATININE 0.76 06/16/2023 GLUCOSE 104 06/16/2023 CALCIUM 9.2 06/16/2023 BILITOT 0.5 06/16/2023 ALBUMIN 3.1 (L) 06/16/2023 GFRNAA 77 06/16/2023 ALKPHOS 115 06/16/2023 AST 8 (L) 06/16/2023 ALT 6 (L) 06/16/2023 Lab Results Component Value Date HGBA1C 5.2 06/16/2023 Lab Results Component Value Date LDLCALC 81 07/08/2023 CREATININE 0.76 06/16/2023 Lab Results Component Value Date CHOL 143 07/08/2023 Lab Results Component Value Date HDL 43 07/08/2023 POCHDL 46 04/07/2017 Lab Results Component Value Date LDLCALC 81 07/08/2023 POCLDL 105 04/07/2017 Lab Results Component Value Date TRIG 94 07/08/2023 POCTRIG 176 04/07/2017 Lab Results Component Value Date POCCHDLR 4.0 04/07/2017 Lab Results Component Value Date POCNONHDL 140 04/07/2017 Lab Results Component Value Date POCCHLPL 186 04/07/2017 Assessment/Plan Diagnoses and all orders for this visit: Weight loss (Primary) Assessment & Plan: Wt Readings from Last 3 Encounters: 10/18/23 59.1 kg (130 lb 4.8 oz) 10/18/23 57 kg (125 lb 9.6 oz) 07/29/23 56.9 kg (125 lb 6.4 oz) Essential hypertension Assessment & Plan: BP Readings from Last 3 Encounters: 10/18/23 160/78 10/18/23 168/68 07/29/23 130/60 Vitals BP 160/78 (BP Location: Left arm, Patient Position: Sitting) Pulse 63 Resp 16 Ht 161.3 cm (5' 3.5 ) Wt 59.1 kg (130 lb 4.8 oz) SpO2 99% BMI 22.72 kg/m?? Lab Results Component Value Date POTASSIUM 4.0 06/16/2023 Significantly elevated Likely 2/2 to pain Primary osteoarthritis of right hip Assessment & Plan: Worsening sx at this time Microcytic anemia Comments: worsening at this time following with Heme will defer mgmt for now/further recs Other orders - lidocaine (LIDODERM) 5 %; Place 1 patch on the skin daily Apply to painful area 12 hours per day,remove for 12 hours. No follow-ups on file. LE BROKER documented in this encounter Miscellaneous Notes * Assessment & Plan Note - Gideon Campbell MD - 10/18/2023 2:47 PM CSTAssociated Problem(s): Primary osteoarthritis of right hip Worsening sx at this time LE BROKER * Assessment & Plan Note - Gideon Campbell MD - 10/18/2023 2:39 PM CSTAssociated Problem(s): Essential hypertension BP Readings from Last 3 Encounters: 10/18/23 160/78 10/18/23 168/68 07/29/23 130/60 Vitals BP 160/78 (BP Location: Left arm, Patient Position: Sitting) Pulse 63 Resp 16 Ht 161.3 cm (5' 3.5 ) Wt 59.1 kg (130 lb 4.8 oz) SpO2 99% BMI 22.72 kg/m?? Lab Results Component Value Date POTASSIUM 4.0 06/16/2023 Significantly elevated Likely 2/2 to pain LE BROKER * Assessment & Plan Note - Gideon Campbell MD - 10/18/2023 2:38 PM CSTAssociated Problem(s): Weight loss Wt Readings from Last 3 Encounters: 10/18/23 59.1 kg (130 lb 4.8 oz) 10/18/23 57 kg (125 lb 9.6 oz) 07/29/23 56.9 kg (125 lb 6.4 oz) LE BROKER documented in this encounter Plan of Treatment Not on file documented as of this encounter Visit Diagnoses Diagnosis Weight loss- Primary Loss of weight Essential hypertension Unspecified essential hypertension Primary osteoarthritis of right hip Microcytic anemia Unspecified iron 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 documented in this encounter Care Teams Administrative Secretary Relationship Specialty Start Date End Date Gideon Campbell MD 2 [facility] [address] [address] PCP - General Family Medicine 07/19/23 documented as of this encounter
--- OUTSIDE RECORDS SUMMARY | 2024-10-22 00:24 | XMS_ITS | Encounter Summary ---
Author Organization [facility] Address [address] [place] [address] Phone Care Team Providers Care Scroll Saw Operator Name Role Phone Gideon Campbell MD Primary Care Provider [phone] Encounter Details Date Type Department Care Team (Late st Contact Info) Description 12/10/2023 Telephone [facility] Oncology [address] [place] [phone] Deborah Armstrong, JACOB Social History Tobacco [...] on file Legal Sex Female 8:30 AM ORGANIZATIONAL DEVELOPMENT CONSULTANT Gender Identity Female 10/06/2021 4:28 PM ORGANIZATIONAL DEVELOPMENT CONSULTANT Sexual Orientation Choose not to disclose 2020 4:28 PM ORGANIZATIONAL DEVELOPMENT CONSULTANT documented as of this encounter Miscellaneous Notes * Telephone Encounter - Deborah Armstrong CLT - 12/10/2023 1:50 PM ORGANIZATIONAL DEVELOPMENT CONSULTANT 12/13/23 appt confirmation NIZATIONAL DEVELOPMENT CONSULTANT documented in this encounter Plan of Treatment Not on file documented as of this encounter Visit Diagnoses Not on filedocumented in this encounter Care Teams Scroll Saw Operator Relationship Specialty Start Date End Date Gideon Campbell MD 2 [facility] [address] [address] PCP - General Family Medicine 07/19/23 documented as of this encounter
--- OUTSIDE RECORDS SUMMARY | 2024-10-22 00:24 | XMS_ITS | Encounter Summary ---
Author Organization [facility] Address [address] [place] [address] Phone Care Team Providers Care Garbage Truck Helper Name Role Phone Gideon Campbell MD Primary Care Provider [phone] Encounter Details Date Type Department Care Team (Late st Contact Info) Description 12/23/2023 Telephone [facility] Oncology [address] [place] [address] [phone] Luis F Lofton MD [address] [place] [phone] Social History Tobacco Use Types Packs/Day Years [...] on file Legal Sex Female 8:30 AM SCRAP DROP CRANE OPERATOR Gender Identity Female 10/06/2021 4:28 PM SCRAP DROP CRANE OPERATOR Sexual Orientation Choose not to disclose 2020 4:28 PM SCRAP DROP CRANE OPERATOR documented as of this encounter Miscellaneous Notes * Telephone Encounter - Karen Giles RN - 12/23/2023 2:11 PM CDT Patient will be set up for Venofer weekly x 3 and follow up 2 weeks after last infusion. * Telephone Encounter - Deborah Armstrong CLT - 12/23/2023 12:24 PM CDT Patients daughter called, Nel, she is on patients HIPAA form. They have discussed her needing iron infusions and want to go ahead with it, can you please call her at [phone] documented in this encounter Plan of Treatment Not on file documented as of this encounter Visit Diagnoses Not on filedocumented in this encounter Care Teams Garbage Truck Helper Relationship Specialty Start Date End Date Gideon Campbell MD [address] [facility] [place] [place] [address] PCP - General Family Medicine 07/19/23 documented as of this encounter
--- OUTSIDE RECORDS SUMMARY | 2024-10-22 00:24 | XMS_ITS | Encounter Summary ---
Author Organization [facility] Address [address] [place] [address] Phone Care Team Providers Care Associate Professor Of Communication Name Role Phone Gideon Campbell MD Primary Care Provider [phone] Encounter Details Date Type Department Care Team (Late st Contact Info) Description 10/28/2023 Orders Only [facility] Oncology [address] [place] [phone] Carmela Puri RN 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, unspecified iron 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 type (Primary Dx); PAD (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) (HCC) Social History Tobacco Use Types Packs/Day Years [...] on file Legal Sex Female 8:30 AM FUEL CELL BINDER Gender Identity Female 10/06/2021 4:28 PM FUEL CELL BINDER Sexual Orientation Choose not to disclose 2020 4:28 PM FUEL CELL BINDER documented as of this encounter Miscellaneous Notes * Addendum Note - Deborah Armstrong CLT - 10/28/2023 4:36 PM CSTAddended by: DEBORAH ARMSTRONG on: 12/13/2023 10:12 AM Modules accepted: Orders CELL BINDER * Addendum Note - Sarita Parnell CLT - 10/28/2023 4:36 PM CSTAddended by: SARITA PARNELL on: 12/13/2023 11:37 AM Modules accepted: Orders CELL BINDER documented in this encounter Plan of Treatment Not on file documented as of this encounter Results * (ABNORMAL) CBC with auto differential (12/13/2023 10:15 AM FUEL CELL BINDER) WBC 6.2 3.8 - 9.9 K/cumm [facility] ([place]) Comment:Testing performed by : [facility] [address], Medical Office [facility] [address], [place] [address] Hgb 7.5(L) 11.9 - 15.5 g/dL [facility] ([place]) Comment:Testing performed by : [facility] [address], Medical Office [facility] [address], [place] [address] Hct 26.7(L) 35.6 - 45.5 % [facility] ([place]) Comment:Testing performed by : [facility] [address], Medical Office [facility] [address], [place] [address] Plt 559(H) 150 - 400 K/cumm [facility] ([place]) Comment:Testing performed by : [facility] [address], Medical Office [facility] [address], [place] [address] MPV 8.1(L) 9.1 - 12.3 fL [facility] ([place]) Comment:Testing performed by : [facility] [address], Medical Office [facility], [place] [address] RBC 3.98 3.90 - 5.20 M/cumm [facility] ([place]) Comment:Testing performed by : [facility] [address], Medical Office [facility], [place] [address] MCV 67.1(L) 81.3 - 96.4 fL [facility] ([place]) Comment:Testing performed by : [facility] [address], Medical Office [facility], [place] [address] MCH 18.8(L) 27.1 - 33.3 pg [facility] ([place]) Comment:Testing performed by : [facility] [address], Medical Office [facility], [place] [address] MCHC 28.1(L) 32.3 - 35.7 g/dL [facility] ([place]) Comment:Testing performed by : [facility] [address], Medical Office [facility], [place] [address] RDW CV 19.2(H) 11.1 - 14.9 % [facility] ([place]) Comment:Testing performed by : [facility] [address], Medical Office [facility], [place] [address] RDW SD 47.1 35.7 - 48.1 fL [facility] ([place]) Comment:Testing performed by : [facility] [address], Medical Office [facility] [address], [place] [address] NRBC abs Not Measured 0.00 - 0.01 K/cumm [facility] ([place]) Comment:Testing performed by : [facility] [address], Medical Office [facility], [place] [address] Blood 12/13/2023 10:1 5 AM FUEL CELL BINDER 12/13/2023 10:20 AM FUEL CELL BINDER us Luis F Lofton MD LAB BLOOD ORDERABLES Final Re sult [facility] ([place]) 1 [facility] Department [place] [address] * (ABNORMAL) Iron profile w/ IBC (12/13/2023 10:15 AM FUEL CELL BINDER) Iron 14(L) 35 - 145 mcg/dL [facility] ([place]) Comment:Testing performed by : [facility], [facility], [place], [address] TIBC 172(L) 250 - 400 mcg/dL [facility] ([place]) Comment:Testing performed by : [facility], [facility], [place], [address] Transferrin saturation 8(L) 20 - 50 % [facility] ([place]) Comment:Testing performed by : [facility], [place], [address] Blood 12/13/2023 10:1 5 AM FUEL CELL BINDER 12/13/2023 10:32 AM FUEL CELL BINDER Luis F Lofton MD LAB BLOOD ORDERABLES Final Re sult [facility] ([place]) [address] [place] [address] Department [place] [address] * (ABNORMAL) Ferritin (12/13/2023 10:15 AM FUEL CELL BINDER) Ferritin 216(H) 15 - 150 ng/mL [facility] ([place]) Comment:Testing performed by : [facility], [place], [address] Blood 12/13/2023 10:1 5 AM FUEL CELL BINDER 12/13/2023 10:32 AM FUEL CELL BINDER Luis F Lofton MD LAB BLOOD ORDERABLES Final Re sult [facility] ([place]) [address] [place] [address] Department [place] [address] * (ABNORMAL) Reticulocyte Count (12/13/2023 10:15 AM FUEL CELL BINDER) Retics, absolute 0.038 0.020 - 0.087 M/cumm [facility] ([place]) Comment:Testing performed by : [facility], [facility], [place], [address] Retics 1.0 0.4 - 2.9 % [facility] ([place]) Comment:Testing performed by : [facility], [facility], [place], [address] Reticulocyte Hgb 17.7(L) 30.5 - 38.0 pg [facility] ([place]) Comment:Testing performed by : [facility], [facility], [place], [address] Blood 12/13/2023 10:1 5 AM FUEL CELL BINDER 12/13/2023 10:32 AM FUEL CELL BINDER us Luis F Lofton MD LAB BLOOD ORDERABLES Final Re sult [facility] ([place]) 1 [facility] Department [place] [address] documented in this encounter Visit Diagnoses Diagnosis 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, unspecified iron 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 type- Primary PAD (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) (HCC) Unspecified peripheral vascular disease documented in this encounter Orders Appointment Requests Count Last Ordered Date Fi rst Ordered Date ONCBCN LAB APPOINTMENT 1 12/13/2023 documented in this encounter Care Teams Associate Professor Of Communication Relationship Specialty Start Date End Date Gideon Campbell MD [address] [facility] [address] [place] [address] PCP - General Family Medicine 07/19/23 documented as of this encounter
--- OUTSIDE RECORDS SUMMARY | 2024-10-22 00:24 | XMS_ITS | Encounter Summary ---
Author Organization [facility] Address [address] [place] [address] Care Team Providers Care Workday Consultant Name Role Phone Gideon Campbell MD Primary Care Provider Reason for Visit * Reason Comments OP Infusion * Episode Based Medications (Routine) - Closed Specialty Diagnoses / Procedures Referred By Contac t Referred To Contact Diagnoses 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 secondary to inadequate dietary iron intake Anemia, unspecified type Microcytic anemia Luis F Lofton MD [address] [place] [address] Phone: tel: fax: [address] [address] Phone: tel: Referral ID Status Reason Start Date Expiration Date Visits Re quested Visits Authorized [id number] Closed 12/23/2023 12/22/2024 3 3 Encounter Details Date Type Department Care Team (Late st Contact Info) Description 01/04/2024 2:00 PM CDT Infusion [address] [phone] 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 secondary to inadequate dietary [...] on file Legal Sex Female 8:30 AM HAT COPYIST Gender Identity Female 10/06/2021 4:28 PM HAT COPYIST Sexual Orientation Choose not to disclose 2020 4:28 PM HAT COPYIST documented as of this encounter Last Filed Vital Signs Vital Sign Reading Time Taken Comments Blood Pressure 148/47 01/04/2024 1:54 PM CDT Pulse 79 01/04/2024 1:54 PM CDT Temperature 36.7 ??C (98.1 ??F) 01/04/2024 1:54 PM CD T Respiratory Rate 20 01/04/2024 1:54 PM CDT Oxygen Saturation 100% 01/04/2024 1:54 PM CDT Inhaled Oxygen Concentration - - Weight - - Height - - Body Mass Index - - documented in this encounter Nursing Notes * Velma Albert RN - 01/04/2024 2:00 PM CDT Patient presented to the infusion center today for IV venofer. Vitals stable. IV inserted in the left forearm. Venofer given as ordered and charted on DEC. Patient tolerated well. IV removed. AVS printed and reviewed with patient. Patient had no further questions and left in stable condition. documented in [...] mL/hr, Administer over 90 Minutes, Once, On Wed01/04/24 at 1445, For 1 doseIndications: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 secondary to inadequate dietary iron intake,Anemia, unspecified type,Microcytic anemia New Bag 01/04/2024 2:10 PM CDT 300 mg 176.7 mL /hr sodium chloride 0.9% flush 10 mL 10 mL, intravenous, As needed, line care, Starting on Wed01/04/24 at 1410, Flush pre and post IV catheter use.Indications: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 secondary to inadequate dietary iron intake,Anemia, unspecified type,Microcytic anemia Given 01/04/2024 3:41 PM CDT 10 mL documented in this encounter Orders Appointment Requests Count Last Ordered Date Fi rst Ordered Date ONCBCN INFUSION APPT REQUEST 1 01/04/2024 documented in this encounter Care Teams Workday Consultant Relationship Specialty Start Date End Date Gideon Campbell MD 2 [facility] [address] [address] PCP - General Family Medicine 07/19/23 documented as of this encounter
--- OUTSIDE RECORDS SUMMARY | 2024-10-22 00:24 | XMS_ITS | Encounter Summary ---
Author Organization [facility] Healthcare Address [address] [place] [address] Care Team Providers Care Reporting Developer Name Role Phone Gideon Campbell MD Primary Care Provider [phone] Reason for Visit * Diagnostic Lab (Routine) - Canceled Specialty Diagnoses / Procedures Referred By Lyndsey t Referred To Contact Lab Diagnoses 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, unspecified iron 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 type PAD (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) (HCC) Procedures ESR - Miscellaneous Test ESR - Miscellaneous Test Luis F Lofton MD [address] [place] [address] Phone: tel: fax: Referral ID Status Reason Start Date Expiration Date V isits Requested Visits Authorized [id number] Canceled 10/28/2023 11/26/2024 1 1 Encounter Details Date Type Department Care Team (Late st Contact Info) Description 12/13/2023 9:45 AM INDUSTRIAL THERAPIST Lab [address] [place] [phone] 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, unspecified iron 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 type (Primary Dx); 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 (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) (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); 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 Social History Tobacco [...] on file Legal Sex Female 8:30 AM INDUSTRIAL THERAPIST Gender Identity Female 10/06/2021 4:28 PM INDUSTRIAL THERAPIST Sexual Orientation Choose not to disclose 2020 4:28 PM INDUSTRIAL THERAPIST documented as of this encounter Plan of Treatment Not on file documented as of this encounter Procedures Procedure Name Priority Date/Time Associated Diagnosis Comments ERYTHROCYTE SEDIMENTATION RATE Routine 12/13/2023 11:30 AM INDUSTRIAL THERAPIST PROTIME-INR Routine 12/13/2023 11:30 AM INDUSTRIAL THERAPIST [facility] (current) use of anticoagulants DIFFERENTIAL AUTO Routine 12/13/2023 10: 15 AM INDUSTRIAL THERAPIST 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, unspecified iron 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 type IRON PROFILE W/ IBC Routine 12/13/2023 1 0:15 AM INDUSTRIAL THERAPIST 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, unspecified iron 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 type CBC WITH AUTO DIFFERENTIAL Routine 12/13/2023 10:15 AM INDUSTRIAL THERAPIST 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, unspecified iron 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 type ERYTHROCYTE SEDIMENTATION RATE Routine 12/13/2023 10:15 AM INDUSTRIAL THERAPIST 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, unspecified iron 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 type RETICULOCYTES Routine 12/13/2023 10:15 AM INDUSTRIAL THERAPIST 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, unspecified iron 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 type FERRITIN Routine 12/13/2023 10:15 AM INDUSTRIAL THERAPIST 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, unspecified iron 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 type documented in this encounter Results * (ABNORMAL) Erythrocyte sedimentation rate (12/13/2023 11:30 AM INDUSTRIAL THERAPIST) Erythrocyte sedimentation rate 99(H) 1 - 30 mm/hr [facility] (TRURO) Comment:Testing performed by : [place], [address] Blood 12/13/2023 11:3 0 AM INDUSTRIAL THERAPIST 12/13/2023 12:11 PM INDUSTRIAL THERAPIST us Luis F Lofton MD LAB BLOOD ORDERABLES Final Re sult [facility] ([place]) [address] [place] [address] [place] [address] * (ABNORMAL) Protime-INR (12/13/2023 11:30 AM INDUSTRIAL THERAPIST) Pathologist [facility] PT 14.2(H) 10.3 - 13.7 sec [facility] (TRURO) Comment:Testing performed by : [facility] [place], [address] INR 1.25(H) 0.90 - 1.20 [facility] (TRURO) Comment: Interpretive data Oral anticoagulant therapeutic ranges: Venous thromboembolism prophylaxis or treatment: 2.0-3.0 CARDIOLOGY Standard range: 2.0-3.0 High-intensity range: 2.5-3.5 Refer to indication-specific guidelines for appropriate target ranges for prosthetic heart valve replacement. Current interpretive data was last revised on 2019. Testing performed by: [facility], [place], [address] Blood 12/13/2023 11:3 0 AM INDUSTRIAL THERAPIST 12/13/2023 12:04 PM INDUSTRIAL THERAPIST us Mia Barger NP LAB BLOOD ORDERABLES Final Result [facility] ([place]) 1 [facility] Department [place] [address] * (ABNORMAL) Differential, auto (12/13/2023 10:15 AM INDUSTRIAL THERAPIST) Pathologist [facility] Neutrophil abs 5.0 1.5 - 6.5 K/cumm [facility] ([place]) Comment:Testing performed by : [facility] [address] Medical [address], [place] [address] Imm gran abs 0.0 0.0 - 0.1 K/cumm [facility] ([place]) Comment:Testing performed by : [facility] [address], Medical [address], [place] [address] Lymphocyte abs 0.7(L) 0.8 - 3.3 K/cumm [facility] ([place]) Comment:Testing performed by : [facility] [address], Medical [address], [place] [address] Monocyte abs 0.4 0.2 - 0.8 K/cumm [facility] ([place]) Comment:Testing performed by : [facility] [address], Medical Office [facility] [address], [place] [address] Eosinophil abs 0.0 0.0 - 0.5 K/cumm [facility] ([place]) Comment:Testing performed by : [facility] [address], Medical Office [facility] [address], [place] [address] Basophil abs 0.0 0.0 - 0.1 K/cumm [facility] ([place]) Comment:Testing performed by : [facility] [address], Medical Office [facility] [address], [place] [address] Neutrophil pct 81.6 % [facility] (TRUR[place]) Comment: Interpretive Data Percent cell count reference ranges are not reported, since discordance with absolute values may lead to misinterpretation of CBC data. Current Interpretive Data was last revised on 2022. Testing performed by: [facility] [address], Medical Office [facility] [address], [place] [address] Imm gran pct 0.2 % [facility] (TR[facility]) Comment: Interpretive Data Percent cell count reference ranges are not reported, since discordance with absolute values may lead to misinterpretation of CBC data. Current Interpretive Data was last revised on 2022. Testing performed by: [facility] [address], Medical Office [address], [place] [address] Lymphocyte pct 10.9 % [facility] ([place]) Comment: Interpretive Data Percent cell count reference ranges are not reported, since discordance with absolute values may lead to misinterpretation of CBC data. Current Interpretive Data was last revised on 2022. Testing performed by: [facility] [address], Medical Office [facility] [address], [place] [address] Monocyte pct 6.5 % [facility] ([place]) Comment: Interpretive Data Percent cell count reference ranges are not reported, since discordance with absolute values may lead to misinterpretation of CBC data. Current Interpretive Data was last revised on 2022. Testing performed by: [facility] [address], Medical Office [facility] [address], [place] [address] Eosinophil pct 0.6 % [facility] R [facility] ([place]) Comment: Interpretive Data Percent cell count reference ranges are not reported, since discordance with absolute values may lead to misinterpretation of CBC data. Current Interpretive Data was last revised on 2022. Testing performed by: [facility] [address], Medical Office [facility] [address], [place] [address] Basophil pct 0.2 % [facility] ([place]) Comment: Interpretive Data Percent cell count reference ranges are not reported, since discordance with absolute values may lead to misinterpretation of CBC data. Current Interpretive Data was last revised on 2022. Testing performed by: [facility] [address], Medical Office [facility] [address], [place] [address] Blood 12/13/2023 10:1 5 AM INDUSTRIAL THERAPIST 12/13/2023 10:20 AM INDUSTRIAL THERAPIST us Luis F Lofton MD LAB BLOOD ORDERABLES Final Re sult [facility] ([place]) 1 [facility] [place] [address] * (ABNORMAL) CBC with auto differential (12/13/2023 10:15 AM INDUSTRIAL THERAPIST) WBC 6.2 3.8 - 9.9 K/cumm [facility] ([place]) Comment:Testing performed by : [facility] [address], Medical Office [address], [place] [address] Hgb 7.5(L) 11.9 - 15.5 g/dL [facility] ([place]) Comment:Testing performed by : [facility] [address], Medical Office [address], [place] [address] Hct 26.7(L) 35.6 - 45.5 % [facility] ([place]) Comment:Testing performed by : [facility] [address], Medical Office [facility] [address], [place] [address] Plt 559(H) 150 - 400 K/cumm [facility] ([place]) Comment:Testing performed by : [facility] [address], Medical Office [facility] [address], [place] [address] MPV 8.1(L) 9.1 - 12.3 fL [facility] ([place]) Comment:Testing performed by : [facility] [address], Medical Office [facility] [address], [place] [address] RBC 3.98 3.90 - 5.20 M/cumm [facility] ([place]) Comment:Testing performed by : [facility] [address], Medical Office [facility] [address], [place] [address] MCV 67.1(L) 81.3 - 96.4 fL [facility] ([place]) Comment:Testing performed by : [facility] [address], Medical Office [facility] [address], [place] [address] MCH 18.8(L) 27.1 - 33.3 pg [facility] ([place]) Comment:Testing performed by : [facility] [address], Medical Office [address], [place] [address] MCHC 28.1(L) 32.3 - 35.7 g/dL [facility] ([place]) Comment:Testing performed by : [facility] [address], Medical Office [facility] [address], [place] [address] RDW CV 19.2(H) 11.1 - 14.9 % [facility] ([place]) Comment:Testing performed by : [facility] [address], Medical Office [facility] [address], [place] [address] RDW SD 47.1 35.7 - 48.1 fL [facility] (TR[facility]) Comment:Testing performed by : [facility] [address], Medical Office [facility] [address], [place] [address] NRBC abs Not Measured 0.00 - 0.01 K/cumm [facility] ([facility]) Comment:Testing performed by : [facility] [address], Medical Office [facility] [address], [place] [address] Blood 12/13/2023 10:1 5 AM INDUSTRIAL THERAPIST 12/13/2023 10:20 AM INDUSTRIAL THERAPIST Luis F Lofton MD LAB BLOOD ORDERABLES Final Re sult Performing Organization Address [facility]/ZIP Co de Phone Number [facility] ([place]) 1 [facility] [place] [address] * (ABNORMAL) Reticulocyte Count (12/13/2023 10:15 AM INDUSTRIAL THERAPIST) Retics, absolute 0.038 0.020 - 0.087 M/cumm [facility] (TR[facility]) Comment:Testing performed by : [place], [address] Retics 1.0 0.4 - 2.9 % [facility] (TR[facility]) Comment:Testing performed by : [place], [address] Reticulocyte Hgb 17.7(L) 30.5 - 38.0 pg [facility] (TRURO) Comment:Testing performed by : [facility], [place], [address] Blood 12/13/2023 10:1 5 AM INDUSTRIAL THERAPIST 12/13/2023 10:32 AM INDUSTRIAL THERAPIST Luis F Lofton MD LAB BLOOD ORDERABLES Final Re sult Performing Organization Address City/[facility]/ZIP Co de Phone Number [facility] ([place]) 1 [facility] [place] [address] * (ABNORMAL) Ferritin (12/13/2023 10:15 AM INDUSTRIAL THERAPIST) Ferritin 216(H) 15 - 150 ng/mL [facility] ([place]) Comment:Testing performed by : [place], [address] Blood 12/13/2023 10:1 5 AM INDUSTRIAL THERAPIST 12/13/2023 10:32 AM INDUSTRIAL THERAPIST Luis F Lofton MD LAB BLOOD ORDERABLES Final Re sult [facility] ([place]) [address] [place] [address] [place] [address] * (ABNORMAL) Iron profile w/ IBC (12/13/2023 10:15 AM INDUSTRIAL THERAPIST) Iron 14(L) 35 - 145 mcg/dL [facility] ([place]) Comment:Testing performed by : [place], [address] TIBC 172(L) 250 - 400 mcg/dL [facility] ([place]) Comment:Testing performed by : [place], [address] Transferrin saturation 8(L) 20 - 50 % [facility] ([place]) Comment:Testing performed by : [place], [address] Blood 12/13/2023 10:1 5 AM INDUSTRIAL THERAPIST 12/13/2023 10:32 AM INDUSTRIAL THERAPIST Luis F Lofton MD LAB BLOOD ORDERABLES Final Re sult [facility] ([place]) 1 [facility] [place] [address] * (ABNORMAL) Erythrocyte sedimentation rate (12/13/2023 10:15 AM INDUSTRIAL THERAPIST) Erythrocyte sedimentation rate 93(H) 1 - 30 mm/hr [facility] ([place]) Comment:Testing performed by : [place], [address] Blood 12/13/2023 10:1 5 AM INDUSTRIAL THERAPIST 12/13/2023 10:20 AM INDUSTRIAL THERAPIST us Luis F Lofton MD LAB BLOOD ORDERABLES Final Re sult [facility] ([place]) 1 [facility] [place] [address] documented in this encounter Visit Diagnoses Diagnosis 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, unspecified iron 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 type- Primary PAD (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) (HCC) Unspecified peripheral vascular disease [facility] (current) use of anticoagulants Long-term (current) use of anticoagulants documented in this encounter Orders Appointment Requests Count Last Ordered Date Fi rst Ordered Date ONCBCN LAB APPOINTMENT 1 12/13/2023 documented in this encounter Care Teams Reporting Developer Relationship Specialty Start Date End Date Gideon Campbell MD [address] [facility] [address] [place] [address] PCP - General Family Medicine 07/19/23 documented as of this encounter
--- OUTSIDE RECORDS SUMMARY | 2024-10-22 00:24 | XMS_ITS | Encounter Summary ---
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 Social History Tobacco Use Types Packs/Day Years [...] on file Legal Sex Female 8:30 AM PLATE PREPARER Gender Identity Female 10/06/2021 4:28 PM PLATE PREPARER Sexual Orientation Choose not to disclose 2020 4:28 PM PLATE PREPARER documented as of this encounter Plan of Treatment Not on file documented as of this encounter Visit Diagnoses Diagnosis Atrial fibrillation (CMS/HCC) [I48.91]- Primary Atrial fibrillation half-way 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 documented in this encounter Care Teams Printed Circuit Boards Laminator Relationship Specialty Start Date End Date Gideon Campbell MD 2 [facility] [place] [id number] PCP - General Family Medicine 07/19/23 documented as of this encounter
--- OUTSIDE RECORDS SUMMARY | 2024-10-22 00:24 | XMS_ITS | Encounter Summary ---
Author Organization [facility] Healthcare Address [address] [place] [address] Care Team Providers Care Robot Designer Name Role Phone Gideon Campbell MD Primary Care Provider [phone] Encounter Details Date Type Department Care Team (Late st Contact Info) Description 10/18/2023 Telephone [facility] Medical Group Cardiology [address] [place] [address] Andrade Brown MD [facility] [place] [address] Social History Tobacco Use Types Packs/Day Years [...] on file Legal Sex Female 8:30 AM COLLECTIONS REPRESENTATIVE Gender Identity Female 10/06/2021 4:28 PM COLLECTIONS REPRESENTATIVE Sexual Orientation Choose not to disclose 2020 4:28 PM COLLECTIONS REPRESENTATIVE documented as of this encounter Miscellaneous Notes * Telephone Encounter - Jacque Hitchcock RN - 10/22/2023 10:21 AM COLLECTIONS REPRESENTATIVE Unable to reach pt by phone, Par8o message sent. ECTIONS REPRESENTATIVE * Telephone Encounter - Jacque Hitchcock RN - 10/20/2023 1:55 PM COLLECTIONS REPRESENTATIVE LM on with response from [facility]. Requested pt return call to schedule a f/u in the office with [facility]. ECTIONS REPRESENTATIVE * Telephone Encounter - Jacque Hitchcock RN - 10/18/2023 4:55 PM COLLECTIONS REPRESENTATIVE Spoke with pt after getting INR results today. Called pt to discuss. Pt states she is no longer taking warfarin and she stopped i a while ago . Advised that I did not have any notes about a discussion of her stopping warfarin. She states she has had 2 ablations and doesn't need it anymore. Also noted, pt does not have a f/u with [facility]. Will forward to [facility]. ECTIONS REPRESENTATIVE documented in this encounter Plan of Treatment Not on file documented as of this encounter Visit Diagnoses Not on filedocumented in this encounter Care Teams Robot Designer Relationship Specialty Start Date End Date Gideon Campbell MD [address] [place] [address] [place] [address] PCP - General Family Medicine 07/19/23 documented as of this encounter
--- OUTSIDE RECORDS SUMMARY | 2024-10-22 00:24 | XMS_ITS | Encounter Summary ---
Author Organization [facility] Address [address] [place] [address] Phone Care Team Providers Care Centrifugal Casting Machine Tender Name Role Phone Gideon Campbell MD Primary Care Provider [phone] Encounter Details Date Type Department Care Team (Late st Contact Info) Description 10/28/2023 Orders Only [facility] Oncology [address] [place] [address] Medical [facility] [place] [address] [address] Luis F Lofton MD [address] [place] [address] Social History Tobacco Use Types Packs/Day Years [...] on file Legal Sex Female 8:30 AM ORDER PICKER/ASSEMBLER Gender Identity Female 10/06/2021 4:28 PM ORDER PICKER/ASSEMBLER Sexual Orientation Choose not to disclose 2020 4:28 PM ORDER PICKER/ASSEMBLER documented as of this encounter Plan of Treatment Not on file documented as of this encounter Visit Diagnoses Not on filedocumented in this encounter Care Teams Centrifugal Casting Machine Tender Relationship Specialty Start Date End Date Gideon Campbell MD 2 [facility] [address] [address] PCP - General Family Medicine 07/19/23 documented as of this encounter
--- OUTSIDE RECORDS SUMMARY | 2024-10-22 00:24 | XMS_ITS | Encounter Summary ---
Author Organization [facility] Address [address] [place] [address] Phone Care Team Providers Care Studio Operations Manager Name Role Phone Gideon Campbell MD Primary Care Provider [phone] Encounter Details Date Type Department Care Team (Late st Contact Info) Description 10/28/2023 Documentation [facility] Oncology [address] [place] [phone] Carmela Puri RN Social History Tobacco Use Types Packs/Day Years [...] on file Legal Sex Female 8:30 AM INSTRUCTIONAL MATERIALS DIRECTOR Gender Identity Female 10/06/2021 4:28 PM INSTRUCTIONAL MATERIALS DIRECTOR Sexual Orientation Choose not to disclose 2020 4:28 PM INSTRUCTIONAL MATERIALS DIRECTOR documented as of this encounter Nursing Notes * Carmela Puri RN - 10/28/2023 4:45 PM CST Patient's daughter calls asking for patient's blood test results. Dr. Lofton reviewed them. Patient was scheduled to return tomorrow for follow up but cancelled and rescheduled afraid of bad weather. After Dr. Lofton's review. He ordered patient to start on slow Fe one talet daily. Reschedule appointment for follow up in 6 weeks with labs CBC, Retic, Iron panel/IBC ferritin, and ESR. Patient's daughter was called and told Dr. Lofton's recommendations. Patient's daughter had asked about iron infusions. Patient was to have had right hip replacement surgery back in June 2023, but this was cancelled due to patient's anemia. Dr. Lofton was asked about the iron infusion and he does not recommendthem. Plan will stay as above. Orders placed for appointments and labs placed in chart./res RUCTIONAL MATERIALS DIRECTOR documented in this encounter Plan of Treatment Not on file documented as of this encounter Visit Diagnoses Not on filedocumented in this encounter Care Teams Studio Operations Manager Relationship Specialty Start Date End Date Gideon Campbell MD [address] [place] [address] [address] PCP - General Family Medicine 07/19/23 documented as of this encounter
--- OUTSIDE RECORDS SUMMARY | 2024-10-22 00:24 | XMS_ITS | Encounter Summary ---
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 Social History [...] on file Legal Sex Female 8:30 AM SHIP CEILER Gender Identity Female 10/06/2021 4:28 PM SHIP CEILER Sexual Orientation Choose not to disclose 2020 4:28 PM SHIP CEILER documented as of this encounter Plan of Treatment Not on file documented as of this encounter Visit Diagnoses Diagnosis Atrial fibrillation (CMS/HCC) [I48.91]- Primary Atrial fibrillation snf 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 documented in this encounter Care Teams Sanitation Director Relationship Specialty Start Date End Date Gideon Campbell MD 2 [facility] [place] [id number] PCP - General Family Medicine 07/19/23 documented as of this encounter
--- OUTSIDE RECORDS SUMMARY | 2024-10-22 00:24 | XMS_ITS | Encounter Summary ---
Author Organization [facility] Address [address] [place] [address] Phone Care Team Providers Care Salesperson Burial Plots Name Role Phone Gideon Campbell MD Primary Care Provider [phone] Encounter Details Date Type Department Care Team (Late st Contact Info) Description 12/23/2023 Orders Only [facility] Oncology [address] [place] [address] Medical Count Includes [facility] [address] [address] Luis F Lofton MD [address] [place] [address] Social History Tobacco Use Types Packs/Day Years [...] on file Legal Sex Female 8:30 AM FEATURE WRITER Gender Identity Female 10/06/2021 4:28 PM FEATURE WRITER Sexual Orientation Choose not to disclose 2020 4:28 PM FEATURE WRITER documented as of this encounter Plan of Treatment Not on file documented as of this encounter Visit Diagnoses Not on filedocumented in this encounter Care Teams Salesperson Burial Plots Relationship Specialty Start Date End Date Gideon Campbell MD 2 [facility] [address] [address] PCP - General Family Medicine 07/19/23 documented as of this encounter
--- OUTSIDE RECORDS SUMMARY | 2024-10-22 00:25 | XMS_ITS | Encounter Summary ---
Author Organization [facility] Address [address] [place] [address] Phone Care Team Providers Care Disintegrator Name Role Phone Gideon Campbell MD Primary Care Provider [phone] Reason for Referral * Consultation (Routine) - Closed Specialty Diagnoses / Procedures Referred By Contac t Referred To Contact Oncology Diagnoses 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, unspecified iron 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 type Gideon Campbell MD [address] [place] [address] [address] [place] [address] Phone: tel: fax: [facility] [address] [place] [address] Medical [facility] [address] [place] [address] Phone: tel: fax: Referral ID Status Reason Start Date Expiration Date V isits Requested Visits Authorized [id number] Closed Specialty Services Required 09/15/2023 10/10/2024 99 99 Question Answer Please select the performing region: [facility] (All Locations) [[id number]] Please select the performing department: [facility] IM ONC [facility] [id number] [[id number]] Is this referral for Breast Health Multi-Disciplinary Clinic? No Does the patient have a diagnosis of a Head and Neck cancer? No # of visits: 1 PRESIDENT FINANCIAL Encounter Details Date Type Department Care Team (Late st Contact Info) Description 09/15/2023 Orders Only [facility] 4 [facility] [place][Note 2] Office Bldg Delio Erickson [address] [place] [id number] Yamileth Santiago, CLT 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, unspecified iron 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 type (Primary Dx) Social History Tobacco Use Types Packs/Day Years Used Date Smoking Tobacco: Former Cigarettes Q uit: 09/28/1978 Smokeless Tobacco: Never Alcohol Use Standard Drinks/Week Comments Yes 0 (1 standard drink = 0.6 oz pur e alcohol) AUDIT-C Answer Date Recorded Q1: How often do you have a drink containing alcohol? Never 07/29/2023 Q2: How many drinks containi ng alcohol do you have on a typical day when you are drinking? Patient does not drink Q3: How often do you have si x or more drinks on one occasion? Never 07/29/2023 PHQ-2 Answer Date Recorded PHQ-2 Total Score (If total score is 3 or more points, staff should administer the PHQ-9) 0 07/29/2023 Comments No Sex and Gender Information Value Date Recorded Sex Assigned at Not on file Legal Sex Female 8:30 AM VICE PRESIDENT FINANCIAL Gender Identity Female 10/06/2021 4:28 PM VICE PRESIDENT FINANCIAL Sexual Orientation Choose not to disclose 2020 4:28 PM VICE PRESIDENT FINANCIAL documented as of this encounter Plan of Treatment Scheduled Referrals Name Type Priority Associated Diagnoses Orde r Schedule Ambulatory referral to Oncology Outpatient Referral Routine 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, unspecified iron 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 type Expected: 09/29/2023 (Approximate), Expires: 09/15/2024 documented as of this encounter Visit Diagnoses Diagnosis 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, unspecified iron 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 type- Primary documented in this encounter Care Teams Disintegrator Relationship Specialty Start Date End Date Gideon Campbell MD [address] [place] [address] [place] [address] PCP - General Family Medicine 07/19/23 documented as of this encounter
--- OUTSIDE RECORDS SUMMARY | 2024-10-22 00:25 | XMS_ITS | Encounter Summary ---
Author Organization [facility] Healthcare Address [address] [place] [address] Care Team Providers Care Manager Float Name Role Phone Denis Platt MD Primary Care Provide r Encounter Details Date Type Department Care Team (Latest Contact Info) Description 06/16/2023 9:32 AM CDT - 06/16/2023 11:59 PM CDT Hospital Encounter [facility] [address] [place] [address] Pre-operative exam Discharge Disposition: Discharge to home or self care Social History Tobacco Use Types Packs/Day Years Used Date Smoking Tobacco: Former Cigarettes Q uit: 09/28/1978 Smokeless Tobacco: Never Alcohol Use Standard Drinks/Week Comments Yes 0 (1 standard drink = 0.6 oz pur e alcohol) Comments Unknown Sex and Gender Information Value Date Recorded Sex Assigned at Not on file Legal Sex Female 8:30 AM MOTION GRAPHICS ARTIST Gender Identity Female 10/06/2021 4:28 PM MOTION GRAPHICS ARTIST Sexual Orientation Choose not to disclose 2020 4:28 PM MOTION GRAPHICS ARTIST documented as of this encounter Medications at Time of Discharge ascorbic acid (VITAMIN C) 500 mg tablet,chewable Take 1 tablet/chew tab (500 mg total) by mouth daily 04/08/2022 hydroCHLOROthiazi de (HYDRODIURIL) 25 mg tablet Take 1 tablet (25 mg total) by mouth daily 90 tablet 2 10/20/2021 07/08/2023 losartan (COZAAR) 100 mg tablet Take 1 tablet (100 mg total) by mouth daily 90 tablet 2 12/11/2022 08/13/2023 warfarin (COUMADIN) 4 mg tablet Take 1 tablet (4 mg total) by mouth daily 90 tablet 09/22/2022 07/08/2023 documented as of this encounter Discharge Disposition Disposition Code Departure Means Destination Discharge to home or self care documented in this encounter Plan of Treatment Not on file documented as of this encounter Procedures Procedure Name Priority Date/Time Associated Diagnosis Comments XR CHEST PA LATERAL 2 VIEWS Schedule Routine, Read Routine (OP Routine) 06/16/2023 10:01 AM CDT Pre-operative exam documented in this encounter Results * XR Chest Pa Lateral 2 Views (06/16/2023 10:01 AM CDT) Anatomical Region Laterality Modality Body, Chest N/A Computed Radiogr aphy 06/17/2023 5:08 PM CDT Narrative 06/17/2023 5:08 PM CDT EXAM DESCRIPTION: ?? XR CHEST PA LATERAL 2 VIEWS REASON FOR STUDY: Pre-operative Exam ?? Pre-op for hip replacement. ??No respiratory issues. ??Medicated for high blood pressure. ? TECHNIQUE: 2 ??radiographic view(s) of the chest. COMPARISON: None FINDINGS: The cardiomediastinal silhouette appears normal. ??There is no airspace consolidation or pleural effusion. ?? Calcified granuloma in the right lung. IMPRESSION: No acute findings. THIS IS AN ELECTRONICALLY VERIFIED FINAL REPORT 06/17/2023 5:08 PM - Electronically signed by ??aKli Georges M.D., JR: D: ??06/17/2023 5:08 PM T: ??06/17/2023 5:08 PM Report ID: [id number] Reading Location: ??[id number] Procedure Note Kali Georges MD - 06/17/2023 EXAM DESCRIPTION: XR CHEST PA LATERAL 2 VIEWS REASON FOR STUDY: Pre-operative Exam Pre-op for hip replacement. No respiratory issues. Medicated for highblood pressure. TECHNIQUE: 2 radiographic view(s) of the chest. COMPARISON: None FINDINGS: The cardiomediastinal silhouette appears normal. There is no airspace consolidation or pleural effusion. Calcified granuloma in the rightlung. IMPRESSION: No acute findings. THIS IS AN ELECTRONICALLY VERIFIED FINAL REPORT 06/17/2023 5:08 PM - Electronically signed by Kali Georges M.D. JR: Report ID: [id number] Reading Location: [place] [address] Herber Knott MD IMG XR PROCEDURES Final Result documented in this encounter Visit Diagnoses Diagnosis Pre-operative exam Unspecified pre-operative examination documented in this encounter Care Teams Manager Float Relationship Specialty Start Date End Date Denis Platt MD [address] [place] [address] PCP - General Family Medicine 01/14/22 07/18/23 documented as of this encounter
--- OUTSIDE RECORDS SUMMARY | 2024-10-22 00:25 | XMS_ITS | Encounter Summary ---
Author Organization [facility] Healthcare Address [address] [place] [address] Care Team Providers Care Writing Center Director Name Role Phone Gideon Campbell MD Primary Care Provider [phone] Encounter Details Date Type Department Care Team (Late st Contact Info) Description 07/19/2023 Telephone [facility] Medical Group Primary Care at [address] [place] [address] Gideon Campbell MD [address] [place] [address] [address] [place] [address] Social History Tobacco Use Types Packs/Day Years Used Date Smoking Tobacco: Former Cigarettes Q uit: 09/28/1978 Smokeless Tobacco: Never Alcohol Use Standard Drinks/Week Comments Yes 0 (1 standard drink = 0.6 oz pur e alcohol) PHQ-2 Answer Date Recorded PHQ-2 Total Score (If total score is 3 or more points, staff should administer the PHQ-9) 0 07/08/2023 Comments No Sex and Gender Information Value Date Recorded Sex Assigned at Not on file Legal Sex Female 8:30 AM CREW SCHEDULER Gender Identity Female 10/06/2021 4:28 PM CREW SCHEDULER Sexual Orientation Choose not to disclose 2020 4:28 PM CREW SCHEDULER documented as of this encounter Miscellaneous Notes * Telephone Encounter - Diandra Christopher LPN - 07/19/2023 3:18 PM CDT Patient made aware of lab results. Patient declines being referred to personnel manager at this time andwants to discuss it further at her upcoming appointment. * Telephone Encounter - Diandra Christopher LPN - 07/19/2023 3:14 PM CDT ----- Message from Gideon Campbell MD sent at 07/19/2023 9:24 AM CDT ----- Blood work shows significant anemia still and very low iron - however, it does looke like her iron is being bound up I would probably recommend evaluation by dr. Lofton - dr. Knott has a certain cut off for her red blood cell level to do surgery - if we can't this taken care of best bet would be to see hematology Dx would anemia of chronic disease, iron 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 She should continue her iron supplement, and may need iron infusions as well but I would recommend seeing dr. Lofton first documented in this encounter Plan of Treatment Not on file documented as of this encounter Visit Diagnoses Not on filedocumented in this encounter Care Teams Writing Center Director Relationship Specialty Start Date End Date Gideon Campbell MD [address] [place] [address] [place] [address] PCP - General Family Medicine 07/19/23 documented as of this encounter
--- OUTSIDE RECORDS SUMMARY | 2024-10-22 00:25 | XMS_ITS | Encounter Summary ---
Author Organization [facility] Address [address] [place] [address] Care Team Providers Care Shoe Repair Supervisor Name Role Phone Denis Platt MD Primary Care Provide r Reason for Visit * Reason Comments Establish Care New patient Hip Pain Knee Pain Encounter Details Date Type Department Care Team (Late st Contact Info) Description 07/08/2023 12:30 PM CDT Office Visit [facility] Primary Care at [address] [place] [address] Gideon Campbell MD [address] [place] [address] [address] [place] [address] Essential hypertension (Primary Dx); Paroxysmal 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 (CMS/HCC) (HCC); Microcytic anemia; 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 goal <100; Non-rheumatic aortic stenosis; Thrombocytosis; FDC 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 Social History [...] on file Legal Sex Female 8:30 AM AVIONICS ENGINEER Gender Identity Female 10/06/2021 4:28 PM AVIONICS ENGINEER Sexual Orientation Choose not to disclose 2020 4:28 PM AVIONICS ENGINEER documented as of this encounter Last Filed Vital Signs Vital Sign Reading Time Taken Comments Blood Pressure 136/78 07/08/2023 12:28 PM CDT Pulse 69 07/08/2023 12:28 PM CDT Temperature - - Respiratory Rate 16 07/08/2023 12:28 PM CDT Oxygen Saturation 99% 07/08/2023 12:28 PM CDT Inhaled Oxygen Concentration - - Weight 57.7 kg (127 lb 4.8 oz) 07/08/2023 12:28 PM CDT Height 161.3 cm (5' 3.5 ) 07/08/2023 12:28 PM CD T Body Mass Index 22.19 07/08/2023 12:28 PM CDT documented in this encounter Progress Notes * Gideon Campbell MD - 07/08/2023 12:30 PM CDT Images from the original note were not included. Subjective/Objective Patient ID: Quin Talley is a 87 y.o. female. Chief Complaint Establish Care (New patient), Hip Pain, and Knee Pain HPI: Quin Talley 87 y.o. woman has a past medical history of Arthritis, Gastroesophageal refluxdisease, OTHER MEDICAL (2006), OTHER MEDICAL, and Hypertension. who presents to [facility] States that she recently went for pst testing Hip surgery is currently on hold due to abnormal blood work PHQ Screening Over the last 2 weeks, [...] Current Outpatient Medications Medication Sig Dispense Refill hydroCHLOROthiazide (HYDRODIURIL) 25 mg tablet Take 1 tablet (25 mg total) by mouth daily 90 tablet2 losartan (COZAAR) 100 mg tablet Take 1 tablet (100 mg total) by mouth daily 90 tablet 2 ascorbic acid (VITAMIN C) 500 mg tablet,chewable Take 1 tablet/chew tab (500 mg total) by mouth daily (Patient not taking: Reported on 07/08/2023) No current facility-administered medications for this visit. Review of Systems Constitutional: Negative for chills and fever. Respiratory: Negative for cough, chest tightness and shortness of breath. Cardiovascular: Negative for chest pain and palpitations. Gastrointestinal: Negative for abdominal pain and diarrhea. Genitourinary: Negative for difficulty urinating. Neurological: Negative for headaches. BP 136/78 (BP Location: Right arm, Patient Position: Sitting) Pulse 69 Resp 16 Ht 161.3 cm (5' 3.5 ) Wt 57.7 kg (127 lb 4.8 oz) SpO2 99% BMI 22.19 kg/m?? Body mass index is 22.19 kg/m??. Physical Exam Constitutional: Appearance: Normal appearance. Cardiovascular: Rate and Rhythm: Normal rate and regular rhythm. Pulses: Normal pulses. Heart sounds: Murmur heard. Pulmonary: Effort: Pulmonary effort is normal. Breath sounds: Normal breath sounds. Musculoskeletal: General: Normal range of motion. Cervical back: Neck supple. Skin: General: Skin is warm and dry. Neurological: Mental Status: She is alert and oriented to person, place, and time. Lab Results Component Value Date WBC 7.3 06/16/2023 HGB 8.1 (L) 06/16/2023 HCT 28.2 (L) 06/16/2023 MCV 70.5 (L) 06/16/2023 LABPLAT 597 (H) 06/16/2023 Chemistry Lab Results Component Value Date SODIUM [...] 5.2 06/16/2023 Lab Results Component Value Date CREATININE 0.76 06/16/2023 No results found for: CHOL , POCCHOL Lab Results Component Value Date POCHDL 46 04/07/2017 Lab Results Component Value Date POCLDL 105 04/07/2017 Lab Results Component Value Date POCTRIG 176 04/07/2017 Lab Results Component Value Date POCCHDLR 4.0 04/07/2017 Lab Results Component Value Date POCNONHDL 140 04/07/2017 Lab Results Component Value Date POCCHLPL 186 04/07/2017 Assessment/Plan Diagnoses and all orders for this visit: Essential hypertension (Primary) Assessment & Plan: BP Readings from Last 3 Encounters: 07/08/23 [...] C/w losartan 100 mg every day only Paroxysmal 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 (CMS/HCC) (HCC) Assessment & Plan: Currently rate controlled Pt is s/p multiple ablations - no recent episodes as per bhupendra Andino Following with cardio Microcytic anemia Assessment & Plan: significant anemia and in setting of heart hx would recommend tranfusion if hgb <8 pt recently started PO iron - check cbc, iron panel now may need transfusion vs iron infusion scheduled for OR but postponed due to abnormalities also noted with thrombocytosis which is likely reactive Would recommend holding off surgery until there is improvement in hgb/hct or clearance from cardiology Orders: - CBC with auto differential; Future - Iron profile w/ IBC; Future 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 goal <100 Assessment & Plan: No results found for: CHOL , POCCHOL Lab Results Component Value Date POCHDL 46 04/07/2017 Lab Results Component Value Date POCLDL 105 04/07/2017 Lab Results Component Value Date POCTRIG 176 04/07/2017 Lab Results Component Value Date POCCHDLR 4.0 04/07/2017 Lab Results Component Value Date POCNONHDL 140 04/07/2017 Lab Results Component Value Date POCCHLPL 186 04/07/2017 Orders: - Lipid panel; Future Non-rheumatic aortic stenosis Comments: stable at this time following with cardio +murmur Thrombocytosis 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 Pt no longer taking warfarin Unsure of [...] supratherapeutic to 12 No episodes of bleeding * Assessment & Plan Note - Gideon Campbell MD - 07/08/2023 1:03 PM CDTAssociated Problem(s): Microcytic anemia significant anemia and in setting of heart hx would recommend tranfusion if hgb <8 pt recently started PO iron - check cbc, iron panel now may need transfusion vs iron infusion scheduled for OR but postponed due to abnormalities also noted with thrombocytosis which is likely reactive Would recommend holding off surgery until there is improvement in hgb/hct or clearance from cardiology * Assessment & Plan Note - Gideon Campbell MD - 07/08/2023 12:52 PM CDTAssociated Problem(s): 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 goal <100 No results found for: CHOL , POCCHOL Lab Results Component Value Date POCHDL 46 04/07/2017 Lab Results Component Value Date POCLDL 105 04/07/2017 Lab Results Component Value Date POCTRIG 176 04/07/2017 Lab Results Component Value Date POCCHDLR 4.0 04/07/2017 Lab Results Component Value Date POCNONHDL 140 04/07/2017 Lab Results Component Value Date POCCHLPL 186 04/07/2017 * Assessment & Plan Note - Gideon Campbell MD - 07/08/2023 12:40 PM CDTAssociated Problem(s): Atrial fibrillation (CMS/HCC) [I48.91] Currently rate controlled Pt is s/p multiple ablations - no recent episodes as per bhupendra Andino Following with cardio * Assessment & Plan Note - Gideon Campbell MD - 07/08/2023 12:38 PM CDTAssociated Problem(s): Essential hypertension BP Readings from Last 3 Encounters: 07/08/23 [...] C/w losartan 100 mg every day only documented in this encounter Plan of Treatment Not on file documented as of this encounter Results * Lipid panel (07/08/2023 1:30 PM CDT) Cholesterol 143 30 - 199 mg/dL [facility] ([place]) Comment: Interpretive Data Ages < or = 19 years ??Acceptable: ? <170 mg/dL ??Borderline high: ??170-199 mg/dL ??High: ? >or= 200 mg/dL Ages > or = 20 years ??Desirable: ?<200 mg/dL ??Borderline high: ??200-239 mg/dL ??High: ? >or= 240 mg/dL Literature References: 1. Expert Panel on Integrated Guidelines for Cardiovascular Health and Risk Reduction in Children and Adolescents. Pediatrics 2011;128:S213 2. NCEP Expert Panel. Circulation 2004;110:227 Current Interpretive Data was last revised on 2018. Triglycerides 94 <=149 mg/dL [facility] ([place]) Comment: Interpretive Data Ages < or = 9 years ??Acceptable: ? <75 mg/dL ??Borderline high: ??75-99 mg/dL ??High: ? >or= 100 mg/dL Ages 10 to 20 years ??Acceptable: ? <90 mg/dL ??Borderline high: ??90-129 mg/dL ??High: ? >or= 130 mg/dL Ages > or = 20 years ??Desirable: ?<150 mg/dL ??Borderline high: ??150-199 mg/dL ??High: ? 200-499 mg/dL ?Very high: ?? >or= 499 mg/dL Literature References: 1. Expert Panel on Integrated Guidelines for Cardiovascular Health and Risk Reduction in Children and Adolescents. Pediatrics 2011;128:S213 2. NCEP Expert Panel. Circulation 2004;110:227 Current Interpretive Data was last revised on 2018. HDL 43 >=40 mg/dL [facility] ([place]) Comment: Interpretive Data Ages < or = 19 years ??Acceptable: ? >45 mg/dL ??Borderline low: ?? 40-45 mg/dL ??Low: ? <40 mg/dL Ages > or = 20 years ??Desirable: ?>or= 60 mg/dL ??Low: ? <40 mg/dL Literature References: 1. Expert Panel on Integrated Guidelines for Cardiovascular Health and Risk Reduction in Children and Adolescents. Pediatrics 2011;128:S213 2. NCEP Expert Panel. Circulation 2004;110:227 Current Interpretive Data was last revised on 2018. LDL, calculated 81 <=129 mg/dL [facility] ([place]) Comment: Interpretive Data Ages < or = 19 years ??Acceptable: ? <110 mg/dL ??Borderline high: ??110-129 mg/dL ??High: ?>or= 130 mg/dL Ages > or = 20 years ??Optimal: ? <100 mg/dL ??Near optimal: ?100-129 mg/dL ??Borderline high: ?? 130-159 mg/dL ??High: ?>160 mg/dL Literature References: 1. Expert Panel on Integrated Guidelines for Cardiovascular Health and Risk Reduction in Children and Adolescents. Pediatrics 2011;128:S213 2. NCEP Expert Panel. Circulation 2004;110:227 Current Interpretive Data was last revised on 2018. Non-HDL Cholesterol 100 mg/dL [facility] ([place]) Comment: Interpretive Data Ages < or = 19 years ??Acceptable: ?<120 mg/dL ??Borderline high: ??120-144 mg/dL ??High: ?>145 mg/dL Ages > or = 20 years ??When triglycerides are >200 mg/dL, Non-HDL cholesterol is a secondary target of ? therapy with treatment goals that are 30 mg/dL greater than the LDL cholesterol target. ? Literature References: 1. Expert Panel on Integrated Guidelines for Cardiovascular Health and Risk Reduction in Children and Adolescents. Pediatrics 2011;128:S213 2. NCEP Expert Panel. Circulation 2004;110:227 Current Interpretive Data was last revised on 2018. Chol/HDL ratio 3 [facility] ([place]) Blood 07/08/2023 1:30 PM CDT 07/08/2023 2:09 PM CDT Gideon Campbell MD LAB BLOOD ORDERABLES Final Resul t [facility] ([place]) [address] [facility] [place] [address] * (ABNORMAL) Iron profile w/ IBC (07/08/2023 1:30 PM CDT) Iron 11(L) 35 - 145 mcg/dL [facility] ([place]) TIBC 161(L) 250 - 400 mcg/dL [facility] ([place]) Transferrin saturation 7(L) 20 - 50 % [facility] ([place]) Blood 07/08/2023 1:30 PM CDT 07/08/2023 2:09 PM CDT Gideon Campbell MD LAB BLOOD ORDERABLES Final Resul t [facility] ([place]) [address] [facility] [place] [address] * (ABNORMAL) CBC with auto differential (07/08/2023 1:30 PM CDT) WBC 6.2 3.8 - 9.9 K/cumm [facility] ([place]) Hgb 7.6(L) 11.9 - 15.5 g/dL [facility] ([place]) Hct 26.6(L) 35.6 - 45.5 % [facility] ([place]) Plt 510(H) 150 - 400 K/cumm [facility] ([place]) MPV 9.2 9.1 - 12.3 fL [facility] ([place]) RBC 3.75(L) 3.90 - 5.20 M/cumm [facility] ([place]) MCV 70.9(L) 81.3 - 96.4 fL [facility] ([place]) MCH 20.3(L) 27.1 - 33.3 pg [facility] ([place] MCHC 28.6(L) 32.3 - 35.7 g/dL [facility] ([place]) RDW CV 18.4(H) 11.1 - 14.9 % [facility] ([place]) RDW SD 46.8 35.7 - 48.1 fL [facility] ([place]) NRBC abs 0.00 0.00 - 0.01 K/cumm [facility] ([place]) Blood 07/08/2023 1:30 PM CDT 07/08/2023 2:09 PM CDT us Gideon Campbell MD LAB BLOOD ORDERABLES Final Resul t [facility] ([place]) 1 [facility] [place] [address] documented in this encounter Visit Diagnoses Diagnosis Essential hypertension- Primary Unspecified essential hypertension Paroxysmal 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 (CMS/HCC) (HCC) Atrial fibrillation Microcytic anemia Unspecified iron 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 goal <100 Other and unspecified hyperlipidemia Non-rheumatic aortic stenosis Thrombocytosis Essential thrombocythemia 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 warfarin (COUMADIN) 4 mg tablet Take 1 tablet (4 mg total) by mouth 10/18/2023 added in this encounter Care Teams Shoe Repair Supervisor Relationship Specialty Start Date End Date Denis Platt MD [address] [place] [address] PCP - General Family Medicine 01/14/22 07/18/23 documented as of this encounter
--- OUTSIDE RECORDS SUMMARY | 2024-10-22 00:25 | XMS_ITS | Encounter Summary ---
Author Organization [facility] Address [address] [place] [address] Care Team Providers Care Merchandising Internship Name Role Phone Denis Platt MD Primary Care Provide r Encounter Details Date Type Department Care Team (Late st Contact Info) Description 06/11/2023 Telephone [facility] Orthopedics and Sports Medicine [address] [facility] [address] [place] [phone] Herber Knott MD [address] [place] [address] [address] [place] [address] Social History Tobacco Use Types Packs/Day Years Used Date Smoking Tobacco: Former Cigarettes Q uit: 09/28/1978 Smokeless Tobacco: Never Alcohol Use Standard Drinks/Week Comments Yes 0 (1 standard drink = 0.6 oz pur e alcohol) Comments Unknown Sex and Gender Information Value Date Recorded Sex Assigned at Not on file Legal Sex Female 8:30 AM HAT BRUSHER MACHINE Gender Identity Female 10/06/2021 4:28 PM HAT BRUSHER MACHINE Sexual Orientation Choose not to disclose 2020 4:28 PM HAT BRUSHER MACHINE documented as of this encounter Miscellaneous Notes * Telephone Encounter - Amie Lion MA - 06/11/2023 11:23 AM CDT Called and lvm for patient to have labs and clearance done chloe. documented in this encounter Plan of Treatment Not on file documented as of this encounter Visit Diagnoses Not on filedocumented in this encounter Care Teams Merchandising Internship Relationship Specialty Start Date End Date Denis Platt MD [address] [place] [address] PCP - General Family Medicine 01/14/22 07/18/23 documented as of this encounter
--- OUTSIDE RECORDS SUMMARY | 2024-10-22 00:25 | XMS_ITS | Encounter Summary ---
Author Organization [facility] Address [address] [place] [address] Care Team Providers Care Photoengraver Apprentice Name Role Phone Gideon Campbell MD Primary Care Provider Encounter Details Date Type Department Care Team (Late st Contact Info) Description 07/30/2023 Orders Only [facility] Primary Care at [address] [place] [address] Gideon Campbell MD [address] [place] [address] [address] [place] [address] Other iron 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 (Primary Dx); Unintentional weight loss Social History Tobacco Use Types Packs/Day Years [...] on file Legal Sex Female 8:30 AM 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 JOB CAPTAIN Gender Identity Female 10/06/2021 4:28 PM 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 JOB CAPTAIN Sexual Orientation Choose not to disclose 2020 4:28 PM 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 JOB CAPTAIN documented as of this encounter Plan of Treatment Not on file documented as of this encounter Visit Diagnoses Diagnosis Other iron 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- Primary Unintentional weight loss Loss of weight documented in this encounter Care Teams Photoengraver Apprentice Relationship Specialty Start Date End Date Gideon Campbell MD [address] [facility] [facility] [facility] [address] ROJAS [address] [place] [id number] PCP - General Family Medicine 07/19/23 documented as of this encounter
--- OUTSIDE RECORDS SUMMARY | 2024-10-22 00:25 | XMS_ITS | Encounter Summary ---
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 Gender Identity Female 10/06/2021 4:28 PM MUSIC SUPERVISOR Sexual Orientation Choose not to disclose 2020 4:28 PM MUSIC SUPERVISOR documented as of this encounter Miscellaneous Notes * Telephone Encounter - Yamileth Santiago CLT - 08/02/2023 8:42 AM CDT LMOM TO SCHEDULE APPT documented in this encounter Plan of Treatment Not on file documented as of this encounter Visit Diagnoses Not on filedocumented in this encounter Care Teams Receivables Specialist Relationship Specialty Start Date End Date Gideon Campbell MD 2 [facility] [address] [address] PCP - General Family Medicine 07/19/23 documented as of this encounter
--- OUTSIDE RECORDS SUMMARY | 2024-10-22 00:25 | XMS_ITS | Encounter Summary ---
Author Organization [facility] Healthcare Address [address] [place] [address] Care Team Providers Care Occupational Physician Name Role Phone Denis Platt MD Primary Care Provide r Encounter Details Date Type Department Care Team (Late st Contact Info) Description 06/16/2023 9:25 AM CDT [address] [phone] Pre-operative exam Social History Tobacco Use Types Packs/Day Years Used Date Smoking Tobacco: Former Cigarettes Q uit: 09/28/1978 Smokeless Tobacco: Never Alcohol Use Standard Drinks/Week Comments Yes 0 (1 standard drink = 0.6 oz pur e alcohol) Comments Unknown Sex and Gender Information Value Date Recorded Sex Assigned at Not on file Legal Sex Female 8:30 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 Gender Identity Female 10/06/2021 4:28 PM DENSITOMETER READER Sexual Orientation Choose not to disclose 2020 4:28 PM DENSITOMETER READER documented as of this encounter Plan of Treatment Not on file documented as of this encounter Procedures Procedure Name Priority Date/Time Associated Diagnosis Comments EGFR Routine 06/16/2023 10:05 AM CDT Pre-operative exam DIFFERENTIAL AUTO Routine 06/16/2023 10: 05 AM CDT Pre-operative exam CBC WITH AUTO DIFFERENTIAL Routine 06/16/2023 10:05 AM CDT Pre-operative exam HEMOGLOBIN A1C Routine 06/16/2023 10:05 AM CDT Pre-operative exam COMPREHENSIVE METABOLIC PANEL Routine 06/16/2023 10:05 AM CDT Pre-operative exam documented in this encounter Results * eGFR (06/16/2023 10:05 AM CDT) eGFR 77 mL/min/1. 73 m2 [facility] ([place]) Comment: Interpretive Data Reference Interval Normal ?>/= [...] of Race in Diagnosing Kidney Disease, JASN 202). The CKD-EPI equation should not be used for patients with unstable renal function and has not been validated in children and those over 70. Current interpretive data was last reviewed 2021. Blood 06/16/2023 10:0 5 AM CDT 06/16/2023 11:05 AM CDT us Herber Knott MD LAB BLOOD ORDERABLES Fin al Result [facility] ([place]) 1 [facility] Department [place] [address] * (ABNORMAL) Differential, auto (06/16/2023 10:05 AM CDT) Neutrophil abs 6.0 1.7 - 6.5 K/cumm [facility] ([place]) Imm gran abs 0.0 0.0 - 0.1 K/cumm [facility] ([place]) Lymphocyte abs 0.7(L) 0.8 - 3.3 K/cumm [facility] ([place]) Monocyte abs 0.5 0.2 - 0.8 K/cumm [facility] ([place]) Eosinophil abs 0.1 0.0 - 0.5 K/cumm [facility] ([place]) Basophil abs 0.0 0.0 - 0.1 K/cumm [facility] ([place]) Neutrophil pct 82.2 % [facility] ([place]) Comment: Interpretive Data Percent cell count reference ranges are not reported, since discordance with absolute values may lead to misinterpretation of CBC data. Current Interpretive Data was last revised on 2018. Imm gran pct 0.3 % [facility] ([place]) Comment: Interpretive Data Percent cell count reference ranges are not reported, since discordance with absolute values may lead to misinterpretation of CBC data. Current Interpretive Data was last revised on 2018. Lymphocyte pct 9.2 % [facility] ([place]) Comment: Interpretive Data Percent cell count reference ranges are not reported, since discordance with absolute values may lead to misinterpretation of CBC data. Current Interpretive Data was last revised on 2018. Monocyte pct 6.7 % [facility] ([place]) Comment: Interpretive Data Percent cell count reference ranges are not reported, since discordance with absolute values may lead to misinterpretation of CBC data. Current Interpretive Data was last revised on 2018. Eosinophil pct 1.0 % [facility] ([place]) Comment: Interpretive Data Percent cell count reference ranges are not reported, since discordance with absolute values may lead to misinterpretation of CBC data. Current Interpretive Data was last revised on 2018. Basophil pct 0.6 % [facility] ([place]) Comment: Interpretive Data Percent cell count reference ranges are not reported, since discordance with absolute values may lead to misinterpretation of CBC data. Current Interpretive Data was last revised on 2018. Blood 06/16/2023 10:0 5 AM CDT 06/16/2023 11:05 AM CDT us Herber Knott MD LAB BLOOD ORDERABLES Fin al Result [facility] ([place]) 1 [facility] [employer] [place] [address] * (ABNORMAL) CBC with auto differential (06/16/2023 10:05 AM CDT) WBC 7.3 3.8 - 9.9 K/cumm [facility] ([place]) Hgb 8.1(L) 11.9 - 15.5 g/dL [facility] ([place]) Hct 28.2(L) 35.6 - 45.5 % [facility] ([place]) Plt 597(H) 150 - 400 K/cumm [facility] ([place]) MPV 8.8(L) 9.1 - 12.3 fL [facility] ([place]) RBC 4.00 3.90 - 5.20 M/cumm [facility] ([place]) MCV 70.5(L) 81.3 - 96.4 fL [facility] ([place]) MCH 20.3(L) 27.1 - 33.3 pg [facility] ([place]) MCHC 28.7(L) 32.3 - 35.7 g/dL [facility] ([place]) RDW CV 18.2(H) 11.1 - 14.9 % [facility] ([place]) RDW SD 46.0 35.7 - 48.1 fL [facility] ([place]) NRBC abs 0.00 0.00 - 0.01 K/cumm [facility] ([place]) Blood 06/16/2023 10:0 5 AM CDT 06/16/2023 11:05 AM CDT us Herber Knott MD LAB BLOOD ORDERABLES Fin al Result [facility] ([place]) 1 [facility] Department [place] [address] * (ABNORMAL) Comprehensive metabolic panel (06/16/2023 10:05 AM CDT) Sodium 137 135 - 145 mmol/L [facility] ([place]) Potassium, pl 4.0 3.3 - 4.9 mmol/L [facility] ([place]) Chloride 99 97 - 110 mmol/L [facility] ([place]) CO2 25 22 - 32 mmol/L [facility] ([place]) Anion gap 14 2 - 15 mmol/L [facility] ([place]) BUN 14 6 - 25 mg/dL [facility] ([place]) Creatinine 0.76 0.60 - 1.10 mg/dL [facility] ([place]) Glucose 104 70 - 199 mg/dL [facility] ([place]) Comment: Interpretive Data Fasting glucose >/= 126 [...] Current interpretive data was last revised 2022. Calcium 9.2 8.5 - 10.3 mg/dL [facility] ([place]) Bilirubin, total 0.5 0.1 - 1.2 mg/dL [facility] ([place]) Protein, pl 6.4(L) 6.5 - 8.5 g/dL [facility] ([place]) Albumin 3.1(L) 3.5 - 5.0 g/dL [facility] ([place]) Alk phos 115 40 - 130 Units/L [facility] ([place]) ALT 6(L) 7 - 45 Units/L [facility] ([place]) AST 8(L) 10 - 45 Units/L [facility] ([place]) Blood 06/16/2023 10:0 5 AM CDT 06/16/2023 11:05 AM CDT Herber Knott MD LAB BLOOD ORDERABLES Fin al Result Performing Organization Address [facility] Co de Phone Number [facility] ([place]) 1 [facility] [place] [address] * Hemoglobin A1c (06/16/2023 10:05 AM CDT) Hgb A1C 5.2 4.0 - 5.6 % [facility] ([place]) Estimated Average Glucose 103 mg/dL [facility] ([place]) Comment: The ADA recommends reporting an estimated Average Glucose (eAG) with all Hemoglobin A1c results using the equation derived from a study of 507 normal and diabetic adults. ??Minority populations were underrepresented and children were not included. ?? (Diabetes Care 31:8863-9380, 2008). ??The eAG is not equivalent to a fasting glucose. Blood 06/16/2023 10:0 5 AM CDT 06/16/2023 11:05 AM CDT Herber Knott MD LAB BLOOD ORDERABLES Fin al Result Performing Organization Address [facility] de Phone Number [facility] ([place]) [address] [facility] [place] [address] documented in this encounter Visit Diagnoses Diagnosis Pre-operative exam Unspecified pre-operative examination documented in this encounter Care Teams Occupational Physician Relationship Specialty Start Date End Date Denis Platt MD [address] [place] [address] PCP - General Family Medicine 01/14/22 07/18/23 documented as of this encounter
--- OUTSIDE RECORDS SUMMARY | 2024-10-22 00:25 | XMS_ITS | Encounter Summary ---
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 Gender Identity Female 10/06/2021 4:28 PM HUMAN RESOURCES ANALYST Sexual Orientation Choose not to disclose 2020 4:28 PM HUMAN RESOURCES ANALYST documented as of this encounter Plan of Treatment Not on file documented as of this encounter Procedures Procedure Name Priority Date/Time Associated Diagnosis Comments DIFFERENTIAL AUTO Routine 07/08/2023 1:3 0 PM CDT Microcytic anemia IRON PROFILE W/ IBC Routine 07/08/2023 1 :30 PM CDT Microcytic anemia CBC WITH AUTO DIFFERENTIAL Routine 07/08/2023 1:30 PM CDT Microcytic anemia LIPID PANEL Routine 07/08/2023 1:30 PM CDT 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 goal <100 documented in this encounter Results * (ABNORMAL) Differential, auto (07/08/2023 1:30 PM CDT) Neutrophil abs 5.1 1.7 - 6.5 K/cumm [facility] ([place]) Imm gran abs 0.0 0.0 - 0.1 K/cumm [facility] ([place]) Lymphocyte abs 0.7(L) 0.8 - 3.3 K/cumm [facility] ([place]) Monocyte abs 0.4 0.2 - 0.8 K/cumm [facility] ([place]) Eosinophil abs 0.0 0.0 - 0.5 K/cumm [facility] ([place]) Basophil abs 0.0 0.0 - 0.1 K/cumm [facility] ([place]) Neutrophil pct 81.5 % [facility] ([place]) Comment: Interpretive Data Percent cell count reference ranges are not reported, since discordance with absolute values may lead to misinterpretation of CBC data. Current Interpretive Data was last revised on 2018. Imm gran pct 0.6 % [facility] ([place]) Comment: Interpretive Data Percent cell count reference ranges are not reported, since discordance with absolute values may lead to misinterpretation of CBC data. Current Interpretive Data was last revised on 2018. Lymphocyte pct 11.0 % [facility] ([place]) Comment: Interpretive Data Percent cell count reference ranges are not reported, since discordance with absolute values may lead to misinterpretation of CBC data. Current Interpretive Data was last revised on 2018. Monocyte pct 6.1 % [facility] ([place]) Comment: Interpretive Data Percent cell count reference ranges are not reported, since discordance with absolute values may lead to misinterpretation of CBC data. Current Interpretive Data was last revised on 2018. Eosinophil pct 0.3 % [facility] ([place]) Comment: Interpretive Data Percent cell count reference ranges are not reported, since discordance with absolute values may lead to misinterpretation of CBC data. Current Interpretive Data was last revised on 2018. Basophil pct 0.5 % [facility] ([place]) Comment: Interpretive Data Percent cell count reference ranges are not reported, since discordance with absolute values may lead to misinterpretation of CBC data. Current Interpretive Data was last revised on 2018. Blood 07/08/2023 1:30 PM CDT 07/08/2023 2:09 PM CDT us Gideon Campbell MD LAB BLOOD ORDERABLES Final Resul t [facility] ([place]) 1 [facility] Department [place] [address] * Lipid panel (07/08/2023 1:30 PM CDT) [...] on 2018. HDL 43 >=40 mg/dL [facility]) Comment: Interpretive Data Ages < or = [...] last revised on 2018. Chol/HDL ratio 3 [facility] ([place]) Blood 07/08/2023 1:30 PM CDT 07/08/2023 2:09 PM CDT us Gideon Campbell MD LAB BLOOD ORDERABLES Final Resul t [facility] ([place]) 1 [facility] Department of Laboratories [place], [place] [id number] * (ABNORMAL) Iron profile w/ IBC (07/08/2023 1:30 PM CDT) Iron 11(L) 35 - 145 mcg/dL [facility] ([place]) TIBC 161(L) 250 - 400 mcg/dL [facility] ([place]) Transferrin saturation 7(L) 20 - 50 % [facility] ([place]) Blood 07/08/2023 1:30 PM CDT 07/08/2023 2:09 PM CDT us Gideon Campbell MD LAB BLOOD ORDERABLES Final Resul t Performing Organization Address City/[facility]/ZIP Co de Phone Number [facility] ([place]) 1 [facility] [place] [address] * (ABNORMAL) CBC with auto differential (07/08/2023 [...] - 33.3 pg [facility] ([place]) MCHC 28.6(L) 32.3 - 35.7 g/dL [facility] ([place]) RDW CV 18.4(H) 11.1 - 14.9 % [facility] ([place]) RDW SD 46.8 35.7 - 48.1 fL [facility] ([place]) NRBC abs 0.00 0.00 - 0.01 K/cumm [facility] ([place]) Blood 07/08/2023 1:30 PM CDT 07/08/2023 2:09 PM CDT us Gideon Campbell MD LAB BLOOD ORDERABLES Final Resul t [facility] ([place]) 1 [facility] Department [place] [employer] [place] [address] documented in this encounter Visit Diagnoses Diagnosis Microcytic anemia Unspecified iron 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 goal <100 Other and unspecified hyperlipidemia documented in this encounter Care Teams Capacitor Inspector Relationship Specialty Start Date End Date Denis Platt MD [address] [place] [address] PCP - General Family Medicine 01/14/22 07/18/23 documented as of this encounter
--- OUTSIDE RECORDS SUMMARY | 2024-10-22 00:25 | XMS_ITS | Encounter Summary ---
Author Organization [facility] Healthcare Address [address] [place] [address] Care Team Providers Care Flash Developer Name Role Phone Gideon Campbell MD Primary Care Provider [phone] Reason for Visit * Reason Comments Anemia Follow-up Pt states she is hav ing a lot of pain in her joints. B shoulders and knees hurt. Encounter Details Date Type Department Care Team (Late st Contact Info) Description 07/29/2023 12:30 PM CDT Office Visit [facility] Primary Care at [address] [place] [id number] Gideon Campbell MD [address] [place] [id number] Medicare annual wellness visit, subsequent (Primary Dx); Paroxysmal 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 (CMS/HCC) (HCC); Other iron 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; Essential hypertension; Unintentional weight loss Social History Tobacco Use [...] on file Legal Sex Female 8:30 AM REHABILITATION PHYSICIAN Gender Identity Female 10/06/2021 4:28 PM REHABILITATION PHYSICIAN Sexual Orientation Choose not to disclose 2020 4:28 PM REHABILITATION PHYSICIAN documented as of this encounter Last Filed Vital Signs Vital Sign Reading Time Taken Comments Blood Pressure 130/60 07/29/2023 12:29 PM CDT Pulse 75 07/29/2023 12:29 PM CDT Temperature - - Respiratory Rate 16 07/29/2023 12:29 PM CDT Oxygen Saturation 99% 07/29/2023 12:29 PM CDT Inhaled Oxygen Concentration - - Weight 56.9 kg (125 lb 6.4 oz) 07/29/2023 12:29 PM CDT Height 161.3 cm (5' 3.5 ) 07/29/2023 12:29 PM CD T Body Mass Index 21.86 07/29/2023 12:29 PM CDT documented in this encounter Progress Notes * Gideon Campbell MD - 07/29/2023 12:30 PM CDT Images from the original note were not included. MEDICARE ANNUAL WELLNESS VISIT Quin Talley Medicare Health Risk Assessment has been completed. Presents for medicare wellness visit and follow up of iron def anemia Problem List, Past Medical and Surgical History: Patient Active Problem List Diagnosis Atrial fibrillation (CMS/HCC) [I48.91] monitoring specialist 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 goal <100 PAD (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) (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 femoral sclerosis HX OTHER MEDICAL R. knee torn cartlage Hypertension Past Surgical History: Procedure Laterality Date CATARACT EXTRACTION 2008 [place] FLUORO GUIDED INJECTION HIP LEFT Left 06/26/2020 FL FLUORO GUIDED INJECTION HIP LEFT Left 10/23/2021 JOINT REPLACEMENT left hip April 07, 2022 TONSILLECTOMY Family History: Family History Problem Relation Age of Onset Heart attack Father Myocardial infarction; Cancer Father Hearing loss Father Unexplained Mother natural causes Social History: Social History Tobacco Use Smoking status: Former Types: Cigarettes Quit date: 09/28/1978 Years since quittin.8 Smokeless tobacco: Never Substance and Sexual Activity Drug use: No Sexual activity: None Alcohol Use: Not At Risk (07/29/2023) AUDIT-C Frequency of Alcohol Consumption: Never Average Number of Drinks: Patient does not drink Frequency of Binge Drinking: Never Allergies: No Known Allergies Medications: Current Outpatient Medications: losartan (COZAAR) 100 mg tablet, Take 1 tablet (100 mg total) by mouth daily, Disp: 90 tablet, Rfl:2 ascorbic acid (VITAMIN C) 500 mg tablet,chewable, Take 1 tablet/chew tab (500 mg total) by mouth daily (Patient not taking: Reported on 07/08/2023), Disp: , Rfl: warfarin (COUMADIN) 4 mg tablet, Take 1 tablet (4 mg total) by mouth (Patient not taking: Reported on 07/29/2023), Disp: , Rfl: Vitals: Vitals BP 130/60 (BP Location: Left arm, Patient Position: Sitting) Pulse 75 Resp 16 Ht 161.3 cm (5' 3.5 ) Wt 56.9 kg (125 lb 6.4 oz) SpO2 99% BMI 21.86 kg/m?? Body mass index is 21.86 kg/m??. Exam: Physical Exam Constitutional: Appearance: Normal appearance. Cardiovascular: Rate and Rhythm: Normal rate and regular rhythm. Pulses: Normal pulses. Heart sounds: Normal heart sounds. Pulmonary: Effort: Pulmonary effort is normal. Breath sounds: Normal breath sounds. Musculoskeletal: General: Normal range of motion. Cervical back: Neck supple. Skin: General: Skin is warm and dry. Neurological: Mental Status: She is alert and oriented to person, place, and time. Care Team Providers: Patient Care Team: Gideon Campbell MD as PCP - General (Family Medicine) Primary Pharmacy/DME suppliers: [facility] [place], [place] - [address] [facility] [id number] [employer] (MAIL [facility]) [facility] [place], [place] - [address] [facility] [id number] Medicare Health Risk Assessment Basic Information In general, would you say your health is: Excellent Do you have an advance directive, such as a living will or durable power of waste handling technician?: (!) No Would you like information regarding Advanced Directive (Living Will) and/or Durable Power of Patient Accounting Representative?: No Do you have to strain or struggle to hear/understand conversations?: No Fall Risk In the past year, patient experienced: One or more falls in the last year: No Do you feel unsteady when standing or walking?: No Do you worry about falling?: No Safety Do you have a working smoke detector in your home?: Yes Does your home have throw rugs, poor lighting, or a slippery bath tub/shower?: No Do you always fasten your seatbelt when you are in a vehicle?: Yes What is your typical mode of transportation: Car Physical Activity How many days a week do you usually exercise?: 0 - I do not exercise How intense is your typical exercise?: I am currently not exercising Nutrition How would you rate your appetite?: Good How would you describe the condition of your mouth and teeth/dentures?: Fair On a typical day, how many servings of fruits and vegetables do you eat?: 1 On a typical day, how many servings of high fiber/whole-grain foods do you eat?: 1 On a typical day, how many servings of high fat/fried foods do you eat?: 0 Have you experienced any of the following problems currently or recently? Eating: No Grooming: No Bathing: No Walking: No Using the toilet: No Memory problems: No Difficulty speaking: No Dressing: No Balance: No Pain: No Sexual Health: No Fatigue: No Have you experienced any of the following problems currently or recently? Laundry and/or housekeeping: No Handling money: No Shopping: No Using the Phone: No Food preparation: No Transportation: No Taking and/or getting your own medications: No Do you use prescription drugs that are not prescribed for you?: No Do you struggle with any of the following: depression, stress, anger, loneliness or social isolation?: No Depression/PHQ Screen: Over the past 2 weeks, how often have you been bothered by any of the following problems? Little Interest or Pleasure in Doing Things: Not at all Feeling Down, Depressed, or Hopeless: Not at all PHQ-2 Total Score (If total score is 3 or more points, staff should administer the PHQ-9): 0 Diet: well balanced Physical Activities: Never Functional Capacity Patient is able to perform the following: ambulation, bathing and hygiene, feeding, continence, grooming, toileting, and dressing Up and Go Test: Patient was unsteady or time test was longer than 30 seconds? No CRYSTALADI Fall Risk Screening: In the past year, patient experienced: One or more falls in the last year: No Incontinence: Are you experiencing or have concern about urine leakage? No How does your current physical health compare to last year? worse How does your current mental health compare to last year? same Medication Compliance: Over the past 2 weeks, were there any days that you did not take your medicine as prescribed? no How often do you miss doses? Not often What factor keeps you from taking your medicine as directed? none Weight Loss: Have you recently lost weight without trying? Yes - 50 lbs in about 1 year Wt Readings from Last 3 Encounters: 07/29/23 56.9 kg (125 lb 6.4 oz) 07/08/23 57.7 kg (127 lb 4.8 oz) 04/15/23 59.4 kg (131 lb) Vitals: Vitals BP 130/60 (BP Location: Left arm, Patient Position: Sitting) Pulse 75 Resp 16 Ht 161.3 cm (5' 3.5 ) Wt 56.9 kg (125 lb 6.4 oz) SpO2 99% BMI 21.86 kg/m?? BP Readings from Last 3 Encounters: 07/29/23 130/60 07/08/23 136/78 04/15/23 (!) 173/69 Lab Results Component Value Date WBC 6.2 07/08/2023 HGB 7.6 (L) 07/08/2023 HCT 26.6 (L) 07/08/2023 MCV 70.9 (L) 07/08/2023 LABPLAT 510 (H) 07/08/2023 Chemistry Lab Results Component Value Date SODIUM 137 06/16/2023 POTASSIUM 4.0 06/16/2023 CHLORIDE 99 06/16/2023 CO2 25 06/16/2023 ANIONGAP 14 06/16/2023 BUNSER 14 06/16/2023 CREATININE 0.76 06/16/2023 GLUCOSE 104 06/16/2023 CALCIUM 9.2 06/16/2023 BILITOT 0.5 06/16/2023 ALBUMIN 3.1 (L) 06/16/2023 GFRNAA 77 06/16/2023 ALKPHOS 115 06/16/2023 AST 8 (L) 06/16/2023 ALT 6 (L) 06/16/2023 Lab Results Component Value Date CHOL [...] Results Component Value Date POCCHLPL 186 04/07/2017 Lab Results Component Value Date HGBA1C 5.2 06/16/2023 Lab Results Component Value Date LDLCALC 81 07/08/2023 CREATININE 0.76 06/16/2023 .last Counseling and Referral of Preventative Services: Lifestyle Recommendations Increase Physical Activity Detection of Cognitive Impairment: The patient does not have cognitive impairment based on direct observation, discussion with patientor family, or review of medical records. [facility] Mental Status Mini-Cog Test: The Mini-Cog Repeat Words: Patient was able to repeat words Clock Drawing Test: Normal Clock Word Recall: Three words recalled Advanced Directive Durable Power of AttorneyNo Living Will No Health Maintenance: Health Maintenance Topics with due status: Overdue Topic Date Due DTaP/Tdap/Td Vaccine Never done Zoster Vaccine Never done Pneumococcal vaccine 65+ Never done Covid-19 Vaccine 05/11/2022 Health Maintenance Topics with due status: Not Due Topic Last Completion Date Fall Risk Assessment 07/29/2023 Depression Screening-PHQ 07/29/2023 Well Visit 65+ 07/29/2023 Health Maintenance Topics with due status: Completed Topic Last Completion Date Influenza Vaccine 07/04/2023 Assessment and Plan: Diagnoses and all orders for this visit: Medicare annual wellness visit, subsequent (Primary) Assessment & Plan: A yearly Medicare Annual Wellness Visit has been performed today. Quin Talley is up to date on screening tests. They are in need of None- no screening indicated at this time- these have been ordered. Patient is not up to date on needed preventative vaccinations; Is in need of Zoster and Covid-19 (booster). These have been ordered/arranged unless otherwise indicated. Paroxysmal 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 (CMS/HCC) (HCC) Assessment & Plan: Currently rate controlled Pt is s/p multiple ablations - no recent episodes as per bhupendra Andino Following with cardio Other iron 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 Comments: unsure of cause at this time - worsening could be chjronic blood loss well refer to heme onc- discussed iron transfusion as well Essential hypertension Assessment & Plan: BP Readings from Last 3 Encounters: 07/08/23 136/78 04/15/23 (!) 173/69 04/02/23 158/76 There were no vitals taken for this visit. Lab Results Component Value Date POTASSIUM 4.0 06/16/2023 At goal at this time Continue losartan 100 mg every day Has not been taking her hctz D/c hctz for now C/w losartan 100 mg every day only Unintentional weight loss Comments: will refer to heme onc for eval in setting of anemia of chornic disease Patient here for annual Medicare wellness visit and for review of complete medical problem list. All the elements of the plan were completed as outlined by CMS. A copy of the prevention plan was given to the patient. I reviewed Medicare Wellness Questionnaire (other physicians involved in care, depression screen, advanced directives), cognitive/memory, and functional assessment. Forms scanned in progress notes. I reviewed and updated the complete problem list, medication list, family history, and immunization records with the patient. I provided preventive counseling and early detection interventions to the patient through health maintenance update and summary of today's office visit. Thanks for coming in today. Gideon Campbell MD documented in this encounter Miscellaneous Notes * Assessment & Plan Note - Gideon Campbell MD - 07/29/2023 12:14 PM CDTAssociated Problem(s): Essential hypertension BP Readings from Last 3 Encounters: 07/08/23 136/78 04/15/23 (!) 173/69 04/02/23 158/76 There were no vitals taken for this visit. Lab Results Component Value Date POTASSIUM 4.0 06/16/2023 At goal at this time Continue losartan 100 mg every day Has not been taking her hctz D/c hctz for now C/w losartan 100 mg every day only * Assessment & Plan Note - Gideon Campbell MD - 07/29/2023 12:14 PM CDTAssociated Problem(s): Medicare annual wellness visit, subsequent A yearly Medicare Annual Wellness Visit has been performed today. Quin Talley is up to date on screening tests. They are in need of None- no screening indicated at this time- these have been ordered. Patient is not up to date on needed preventative vaccinations; Is in need of Zoster and Covid-19 (booster). These have been ordered/arranged unless otherwise indicated. * Assessment & Plan Note - Gideon Campbell MD - 07/29/2023 12:02 PM CDTAssociated Problem(s): Atrial fibrillation (CMS/HCC) [I48.91] Currently rate controlled Pt is s/p multiple ablations - no recent episodes as per bhupendra Andino Following with cardio documented in this encounter Plan of Treatment Not on file documented as of this encounter Visit Diagnoses Diagnosis Medicare annual wellness visit, subsequent- Primary Paroxysmal 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 (CMS/HCC) (HCC) Atrial fibrillation Other iron 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 Essential hypertension Unspecified essential hypertension Unintentional weight loss Loss of weight documented in this encounter Care Teams Flash Developer Relationship Specialty Start Date End Date Gideon Campbell MD 2 [facility] [address] [address] PCP - General Family Medicine 07/19/23 documented as of this encounter
--- OUTSIDE RECORDS SUMMARY | 2024-10-22 00:25 | XMS_ITS | Encounter Summary ---
Author Organization [facility] Healthcare Address [address] [place] [address] Care Team Providers Care Filter Plant Supervisor Name Role Phone Denis Platt MD Primary Care Provide r Encounter Details Date Type Department Care Team (Latest Contact Info) Description 06/17/2023 10:54 AM CDT - 06/17/2023 11:59 PM CDT Hospital Encounter [address] [phone] Pre-operative exam Discharge Disposition: Discharge to home [...] on file Legal Sex Female 8:30 AM FILLING MIXER Gender Identity Female 10/06/2021 4:28 PM FILLING MIXER Sexual Orientation Choose not to disclose 2020 4:28 PM FILLING MIXER documented as of this encounter Medications at [...] Procedure Name Priority Date/Time Associated Diagnosis Comments URINALYSIS AND REFLEX TO MICROSCOPIC AND CULTURE Routine 06/17/2023 10:30 AM CDT Pre-operative exam URINALYSIS, MICROSCOPIC ONLY Routine 06/17/2023 10:30 AM CDT Pre-operative exam URINE CULTURE Routine 06/17/2023 10:30 AM CDT documented in this encounter Results * Urine culture Urine (06/17/2023 10:30 AM CDT) Report Final Report: Less than 100,000 colonies/mL (clinically insignificant growth based on current clinical standards) [facility] CONN ([place]) Comment:Testing performed by : [facility], [address] [facility] [place]., [address] Organism (CLINICALLY INSIGNIFICANT GROWTH [facility] ([place]) Urine 06/17/2023 10:3 0 AM CDT 06/17/2023 3:00 PM CDT Narrative [facility] ([place]) - 06/18/2023 5:27 PM CDT Urine culture reflexed based upon urinalysis results. Testing performed by [facility] ([phone]) us Herber Knott MD LAB MICROBIOLOGY - [facility] AL ORDERABLES Final Result [facility]IGRE CONTI) 1 [facility] Department [place] [address] * (ABNORMAL) Urinalysis, microscopic only (06/17/2023 10:30 AM CDT) WBC, ur >50(A) 0 - 5 /HPF [facility] ([place]) RBC, ur 11-20(A) 0 - 2 /HPF [facility] ([place]) Epithelial cells, squamous, ur 1-5 0 - 5 /HPF [facility] ([place]) Bacteria, ur Trace(A) [facility] ([place]) Mucous, ur Present(A) [facility] A ([place]) Hyaline casts, ur 1-5 0 - 10 /LPF [facility] ([place]) Culture Reflex Comment Reflex to urine culture will be performed. [facility] ([place]) Urine 06/17/2023 10:3 0 AM CDT 06/17/2023 11:12 AM CDT Herber Knott MD LAB URINE ORDERABLES [facility] al Result [facility] ([place]) [address] [facility] [place] [address] * (ABNORMAL) Urinalysis reflex to microscopic and culture Urine (06/17/2023 10:30 AM CDT) Color, ur Yellow Yellow [facility] ([place]) Clarity, ur Turbid(A) Clear [facility] A ([place]) Specific gravity, ur 1.009 1.003 - 1.030 [facility] ([place]) pH, urine 6.5 [facility] ([place]) Protein, ur ql Negative Negative [facility] ([place]) Glucose, ur ql Negative Negative [facility] ([place]) Ketones, ur Negative Negative [facility] A ([place]) Bilirubin, ur Negative Negative [facility] ([place]) Blood, ur Negative Negative [facility] ([place]) Urobilinogen, ur <2.0 <2.0 mg/dL [facility] ([place]) Nitrite, ur Negative Negative [facility] ([place]) Leukocyte esterase, ur 4+(A) Negative [facility] ([place]) UA reflex comment Reflex to microscopic UA will be performed. [facility] ([place]) Urine 06/17/2023 10:3 0 AM CDT 06/17/2023 11:12 AM CDT Narrative [facility] CON[facility] ([place]) - 06/17/2023 11:16 AM CDT ?? Urine pH is affected by diet, medications, systemic acid-base disturbances, and renal tubular function. ??pH may affect urinary stone formation. ??For example, urine pH below 6.0 may help reduce the tendency for calcium phosphate stones and pH greater than 6.0 may reduce the tendency for uric acid stone formation. Source: [employer]. Last revised 10-21-2017 us Herber Knott MD LAB MICROBIOLOGY - [facility] AL ORDERABLES Final Result [facility] FABIEN ([place]) 1 [facility] Department [place] [address] documented in this encounter Visit Diagnoses Diagnosis Pre-operative exam Unspecified pre-operative examination documented in this encounter Care Teams Filter Plant Supervisor Relationship Specialty Start Date End Date Denis Platt MD [address] [place] [address] PCP - General Family Medicine 01/14/22 07/18/23 documented as of this encounter
--- OUTSIDE RECORDS SUMMARY | 2024-10-22 00:25 | XMS_ITS | Encounter Summary ---
Author Organization [facility] Address [address] [place] [address] Phone Care Team Providers Care Director Security Risk Management Name Role Phone Gideon Campbell MD Primary Care Provider [phone] Reason for Visit * Reason Comments Consult * Consultation (Routine) - Closed Specialty Diagnoses / Procedures Referred By Contac t Referred To Contact Oncology Diagnoses 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, unspecified iron 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 type Gideon Campbell MD [address] [facility] [address] [place] [address] Phone: tel: fax: [facility] [address] [place] [address] [address] Phone: tel: fax: Referral ID Status Reason Start Date Expiration Date V isits Requested Visits Authorized [id number] Closed Specialty Services Required 09/15/2023 10/10/2024 99 [phone] Encounter Details Date Type Department Care Team (Late st Contact Info) Description 10/18/2023 11:00 AM JEWELLERY DESIGNER Office Visit [facility] [address] [place] [address] B [facility] [address] [place] [address] Luis F Lofton MD [address] [place] [address] [address] [place] [address] FPC (current) use of anticoagulants (Primary Dx); 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, unspecified iron 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 type Social History Tobacco Use Types Packs/Day Years [...] on file Legal Sex Female 8:30 AM JEWELLERY DESIGNER Gender Identity Female 10/06/2021 4:28 PM JEWELLERY DESIGNER Sexual Orientation Choose not to disclose 2020 4:28 PM JEWELLERY DESIGNER documented as of this encounter Last Filed Vital Signs Vital Sign Reading Time Taken Comments Blood Pressure 168/68 10/18/2023 11:16 AM JEWELLERY DESIGNER Pulse 75 10/18/2023 11:16 AM JEWELLERY DESIGNER Temperature 36.3 ??C (97.3 ??F) 10/18/2023 11:[address] Respiratory Rate 20 10/18/2023 11:16 AM JEWELLERY DESIGNER Oxygen Saturation 100% 10/18/2023 11:16 AM JEWELLERY DESIGNER Inhaled Oxygen Concentration - - Weight 57 kg (125 lb 9.6 oz) 10/18/2023 11:16 AM JEWELLERY DESIGNER Height 161.3 cm (5' 3.5 ) 10/18/2023 11:16 AM CS T Body Mass Index 21.9 10/18/2023 11:16 AM JEWELLERY DESIGNER documented in this encounter Progress Notes * Luis F Lofton MD - 10/18/2023 11:00 AM CST Hematology/Oncology Consult Visit Date: 10/18/2023 Primary Care Physician:Gideon Campbell MD Requesting Provider: MD Quin Perry Mayank 88 y.o. female Chief Complaint: The patient was referred from my opinion and recommendations regarding further evaluation and management of her CARLOS/anemia of chronic disease. However the patient was elderly and may have some problem with confusion thought that she was here for me to evaluate her ???clotting disorder?? HPI: 10/18/2023--the patient is an 88-year-old with multiple [...] to be 597 and then again today 507 Past Medical History: Diagnosis Date Arthritis Gastroesophageal reflux disease GERD HX OTHER MEDICAL 2005 PAD - non-occl. femoral sclerosis HX OTHER MEDICAL R. knee torn cartlage Hypertension 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 Past Surgical History: Procedure Laterality Date CATARACT EXTRACTION 2008 [place] FLUORO GUIDED INJECTION HIP LEFT Left 06/26/2020 FL FLUORO GUIDED INJECTION HIP LEFT Left 10/23/2021 JOINT REPLACEMENT left hip April 07, 2022 TONSILLECTOMY Prior to Admission medications Medication Sig Start Date End Date Taking? Authorizing Provider ascorbic acid (VITAMIN C) 500 mg tablet,chewable Take 1 tablet/chew tab (500 mg total) by mouth daily 04/08/22 Yes Peggy Perla MD losartan (COZAAR) 100 mg tablet TAKE 1 TABLET BY MOUTH DAILY 08/13/23 Yes Andrade Brown MD warfarin (COUMADIN) 4 mg tablet Take 1 tablet (4 mg total) by mouth 10/18/23 Yes Peggy Perla MD No Known Allergies Social History Tobacco Use Smoking status: Former Types: Cigarettes Quit date: 09/28/1978 Years since quittin.0 Smokeless tobacco: Never Substance and Sexual Activity Drug use: No Sexual activity: None Alcohol Use: Not At Risk (07/29/2023) AUDIT-C Frequency of Alcohol Consumption: Never Average Number of Drinks: Patient does not drink Frequency of Binge Drinking: Never Family History Problem Relation Age of Onset Heart attack Father Myocardial infarction; Cancer Father Hearing loss Father Unexplained Mother natural causes Review of Systems: Review of Systems Constitutional: Positive for fatigue. Negative for appetite change, chills, diaphoresis, fever and unexpected weight change. HENT: Negative for hearing loss, lump/mass, mouth sores, nosebleeds, sore throat, tinnitus, troubleswallowing and voice change. Eyes: Negative for eye problems and icterus. Respiratory: Negative for chest tightness, cough, hemoptysis, shortness of breath and wheezing. Cardiovascular: Negative for chest pain, leg swelling and palpitations. Gastrointestinal: Negative for abdominal distention, abdominal pain, blood in stool, constipation, diarrhea, nausea, rectal pain and vomiting. Endocrine: Negative for hot flashes. Genitourinary: Negative for bladder incontinence, difficulty urinating, dyspareunia, dysuria, frequency, hematuria and nocturia. Musculoskeletal: Negative for arthralgias, back pain, flank pain, gait problem, myalgias, neck painand neck stiffness. Skin: Negative for itching, rash and wound. Neurological: Negative for dizziness, extremity weakness, gait problem, headaches, light-headedness, numbness, seizures and speech difficulty. Hematological: Negative for adenopathy. Does not bruise/bleed easily. Psychiatric/Behavioral: Negative for confusion, decreased concentration, depression, sleep disturbance and suicidal ideas. The patient is not nervous/anxious. Objective Vitals: Vitals BP 168/68 (BP Location: Right arm) Pulse 75 Temp 36.3 ??C (97.3 ??F) (Skin) Resp 20 Ht 161.3 cm (5' 3.5 ) Wt 57 kg (125 lb 9.6 oz) SpO2 100% BMI 21.90 kg/m?? Physical Exam: Physical Exam Vitals and nursing note reviewed. Constitutional: General: She is not in acute distress. Appearance: Normal appearance. She is normal weight. She is not ill-appearing, toxic-appearing or diaphoretic. HENT: Head: Normocephalic and atraumatic. Right Ear: Tympanic membrane, ear canal and external ear normal. Left Ear: Tympanic membrane, ear canal and external ear normal. Nose: Nose normal. Mouth/Throat: Mouth: Mucous membranes are moist. Pharynx: Oropharynx is clear. No oropharyngeal exudate or posterior oropharyngeal erythema. Eyes: General: No scleral icterus. Right eye: No discharge. Left eye: No discharge. Extraocular Movements: Extraocular movements intact. Conjunctiva/sclera: Conjunctivae normal. Pupils: Pupils are equal, round, and reactive to light. Cardiovascular: Rate and Rhythm: Normal rate and regular rhythm. Pulses: Normal pulses. Heart sounds: Normal heart sounds. No murmur heard. No friction rub. No gallop. Pulmonary: Effort: Pulmonary effort is normal. No respiratory distress. Breath sounds: Normal breath sounds. No stridor. No wheezing, rhonchi or rales. Chest: Chest wall: No tenderness. Abdominal: General: Abdomen is flat. Bowel sounds are normal. There is no distension. Palpations: Abdomen is soft. There is no mass. Tenderness: There is no abdominal tenderness. There is no right CVA tenderness, left CVA tenderness, guarding or rebound. Hernia: No hernia is present. Musculoskeletal: General: No swelling, tenderness, deformity or signs of injury. Cervical back: No rigidity. No muscular tenderness. Right lower leg: No edema. Left lower leg: No edema. Lymphadenopathy: Cervical: No cervical adenopathy. Skin: Coloration: Skin is not jaundiced or pale. Findings: No bruising, erythema, lesion or rash. Neurological: General: No focal deficit present. Mental Status: She is alert and oriented to person, place, and time. Mental status is at baseline. Cranial Nerves: No cranial nerve deficit. Sensory: No sensory deficit. Motor: No weakness. Coordination: Coordination normal. Gait: Gait normal. Psychiatric: Mood and Affect: Mood normal. Behavior: Behavior normal. Thought Content: Thought content normal. Judgment: Judgment normal. Lab/Radiology/Diagnostic Review: Recent Results (from the past 336 hour(s)) CBC with auto differential Collection Time: 10/18/23 10:35 AM Result Value Ref Range WBC 6.9 3.8 - 9.9 K/cumm Hgb 7.3 (L) 11.9 - 15.5 g/dL Hct 26.3 (L) 35.6 - 45.5 % Plt 507 (H) 150 - 400 K/cumm MPV 8.5 (L) 9.1 - 12.3 fL RBC 3.97 3.90 - 5.20 M/cumm MCV 66.2 (L) 81.3 - 96.4 fL MCH 18.4 (L) 27.1 - 33.3 pg MCHC 27.8 (L) 32.3 - 35.7 g/dL RDW CV 19.4 (H) 11.1 - 14.9 % RDW SD 46.5 35.7 - 48.1 fL NRBC abs Not Measured 0.00 - 0.01 K/cumm Differential, auto Collection Time: 10/18/23 10:35 AM Result Value Ref Range Neutrophil abs 6.0 1.5 - 6.5 K/cumm Imm gran abs 0.0 0.0 - 0.1 K/cumm Lymphocyte abs 0.5 (L) 0.8 - 3.3 K/cumm Monocyte abs 0.3 0.2 - 0.8 K/cumm Eosinophil abs 0.1 0.0 - 0.5 K/cumm Basophil abs 0.0 0.0 - 0.1 K/cumm Neutrophil pct 87.1 % Imm gran pct 0.1 % Lymphocyte pct 7.4 % Monocyte pct 3.9 % Eosinophil pct 1.2 % Basophil pct 0.3 % No results found. Patient Active Problem List Diagnosis Date Noted Absolute anemia 07/29/2023 Medicare annual wellness visit, subsequent 07/29/2023 Microcytic anemia 07/08/2023 Primary osteoarthritis of right hip 06/15/2023 Weight loss 01/27/2023 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 04/21/2022 Primary osteoarthritis of left knee 10/30/2021 Pes anserinus bursitis of left knee 10/30/2021 Non-rheumatic aortic stenosis 08/20/2021 History of COVID-19 02/12/2021 Anticoagulation management encounter 02/24/2018 Left carotid bruit 10/13/2017 Ventricular ectopy 05/17/2017 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 goal <100 04/07/2017 PAD (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) ([facility]) 04/07/2017 Essential hypertension 04/07/2017 Atrial fibrillation ([facility]) [I48.91] 03/29/2017 FPC 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 03/29/2017 Assessment: This patient appears to have iron-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. She also has thrombocytosis which can occur star number of situations but in this setting reasons possible that she is having some GI bleeding causing both problems. Although she thought that she had some problem with clotting problems except that I can not find any indication of such other than her expected prolongation of protime and PTT with warfarin. . She stated that she stopped taking warfarin on 10/18/23 (today) Plan: She will return in a few weeks to repeat her protime, PTT, and fibrinogen having been off warfarin for several days. If she still has a prolonged PTT and/or PT, then I will do a factor 8 activity as well as von Willebrand's factor activity and antigen which is the only likely condition she could have unless she hassome antibody to 1 of the clotting factors or significant liver disease that we do not see. When she returns he will also get a ferritin in addition to her CBC and iron panel. When she returns I anticipate putting her on ferrous sulfate in the form of Slow Fe OTC in order tominimize GI toxicity and hopefully get some iron absorbed Luis F Lofton MD 10/18/2023 LLERY DESIGNER documented in this encounter Plan of Treatment Scheduled Orders Name Type Priority Associated Diagnoses Orde r Schedule CBC with auto differential Lab Routine 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, unspecified iron 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 type FPC (current) use of anticoagulants Expected: 10/25/2023, Expires: 10/18/2024 documented as of this encounter Results * (ABNORMAL) Comprehensive metabolic panel (01/31/2024 9:20 AM CDT) Sodium 138 135 - 145 mmol/L Comment:Testing performed by : [place], [address] Potassium, pl 4.1 3.3 - 4.9 mmol/L [facility] Comment:Testing performed by : [place], [address] Chloride 101 97 - 110 mmol/L [facility]) Comment:Testing performed by : [place], [address] CO2 27 22 - 32 mmol/L [facility]) Comment:Testing performed by : [facility], [facility], [place], [address] Anion gap 10 2 - 15 mmol/L [facility]) Comment:Testing performed by : [facility], [facility], [place], [address] BUN 9 6 - 25 mg/dL [facility]) Comment:Testing performed by : [facility], [place], [address] Creatinine 0.72 0.60 - 1.10 mg/dL [facility]) Comment:Testing performed by : [facility], [place], [address] Glucose 108 70 - 199 mg/dL [facility]) Comment: Interpretive Data Fasting glucose >/= 126 [...] was last revised 2022. Testing performed by: [facility], [place], [address] Calcium 8.9 8.5 - 10.3 mg/dL [facility]) Comment:Testing performed by : [facility], [place], [address] Bilirubin, total 0.4 0.1 - 1.2 mg/dL [facility] Comment:Testing performed by : [facility], [place], [address] Protein, pl 5.9(L) 6.5 - 8.5 g/dL [facility] Comment:Testing performed by : [facility], [place], [address] Albumin 2.9(L) 3.5 - 5.0 g/dL [facility]) Comment:Testing performed by : [place], [address] Alk phos 127 40 - 130 Units/L [facility]) Comment:Testing performed by : [facility], [facility], [place], [address] ALT 5(L) 7 - 45 Units/L [facility]) Comment:Testing performed by : [facility], [facility], [place], [address] AST 7(L) 10 - 45 Units/L [facility]) Comment:Testing performed by : [facility], [facility], [place], [address] Blood 01/31/2024 9:20 AM CDT 01/31/2024 9:38 AM CDT Narrative [facility]) - 01/31/2024 10:05 AM CDT [facility] us Luis F Lofton MD LAB BLOOD ORDERABLES Final Re sult Performing Organization Address City/[facility]/ZIP Co de Phone Number [facility]) [address] [place] [address] Department [place] [address] * (ABNORMAL) aPTT (10/18/2023 1:00 PM JEWELLERY DESIGNER) aPTT 40(H) 28 - 38 sec [facility]) Comment: Interpretive Data Heparin therapeutic range: 66.0 - 100.0 seconds. Range based on correlation with therapeutic heparin activity range of 0.3 - 0.7 Units/mL. Current interpretive data was last revised on 2023. Testing performed by: [place], [address] Blood 10/18/2023 1:00 PM JEWELLERY DESIGNER 10/18/2023 2:08 PM JEWELLERY DESIGNER us Luis F Lofton MD LAB BLOOD ORDERABLES Final Re sult [facility]) 1 [facility] Department [place] [address] * Protime-INR (10/18/2023 1:00 PM JEWELLERY DESIGNER) PT 13.7 10.3 - 13.7 sec [facility]) Comment:Testing performed by : [place], [address] INR 1.20 0.90 - 1.20 [facility]) Comment: Interpretive data Oral anticoagulant therapeutic ranges: Venous thromboembolism prophylaxis or treatment: 2.0-3.0 CARDIOLOGY Standard range: 2.0-3.0 High-intensity range: 2.5-3.5 Refer to indication-specific guidelines for appropriate target ranges for prosthetic heart valve replacement. Current interpretive data was last revised on 2019. Testing performed by: [place], [address] Blood 10/18/2023 1:00 PM JEWELLERY DESIGNER 10/18/2023 2:08 PM JEWELLERY DESIGNER Luis F Lofton MD LAB BLOOD ORDERABLES Final Re sult Performing Organization Address City/[facility]/ZIP Co de Phone Number [facility]) [address] [place] [address] [place] [address] * (ABNORMAL) Fibrinogen (10/18/2023 1:00 PM JEWELLERY DESIGNER) Fibrinogen 533(H) 170 - 400 mg/dL [facility]) Comment:Testing performed by : [facility], [place], [address] Blood 10/18/2023 1:00 PM JEWELLERY DESIGNER 10/18/2023 2:08 PM JEWELLERY DESIGNER Luis F Lofton MD LAB BLOOD ORDERABLES Final Re sult [facility]) 1 [facility] [place] [address] documented in this encounter Visit Diagnoses Diagnosis FPC (current) use of anticoagulants- Primary Long-term (current) use of anticoagulants 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, unspecified iron 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 type 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, unspecified iron 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 type FPC (current) use of anticoagulants Long-term (current) use of anticoagulants documented in this encounter Discontinued Medications Medication Sig Discontinue Reason Start Date End Da te warfarin (COUMADIN) 4 mg tablet Take 1 tablet (4 mg total) by mouth Error 10/18/2023 documented as of this encounter Orders Outpatient Referral Count Last Ordered Date Fir st Ordered Date AMB REFERRAL TO ONCOLOGY 1 10/18/2023 Appointment Requests Count Last Ordered Date Fi rst Ordered Date ON[facility]N CLINIC APPOINTMENT REQUEST 1 024 ON[facility] LAB APPOINTMENT 1 10/18/2023 documented in this encounter Care Teams Director Security Risk Management Relationship Specialty Start Date End Date Gideon Campbell MD [address] [facility] [address] [place] [address] PCP - General Family Medicine 07/19/23 documented as of this encounter
--- OUTSIDE RECORDS SUMMARY | 2024-10-22 00:25 | XMS_ITS | Encounter Summary ---
Author Organization [facility] Address [address] [place] [address] Phone Care Team Providers Care Manager Nicu Name Role Phone Gideon Campbell MD Primary Care Provider [phone] Encounter Details Date Type Department Care Team (Late st Contact Info) Description 10/15/2023 Telephone [facility] Oncology [address] [place] [phone] Deborah Armstrong, JACOB Social History Tobacco [...] on file Legal Sex Female 8:30 AM NURSE GYNECOLOGY Gender Identity Female 10/06/2021 4:28 PM NURSE GYNECOLOGY Sexual Orientation Choose not to disclose 2020 4:28 PM NURSE GYNECOLOGY documented as of this encounter Miscellaneous Notes * Telephone Encounter - Deborah Armstrong CLT - 10/15/2023 1:32 PM NURSE GYNECOLOGY appt confirmation E GYNECOLOGY documented in this encounter Plan of Treatment Not on file documented as of this encounter Visit Diagnoses Not on filedocumented in this encounter Care Teams Manager Nicu Relationship Specialty Start Date End Date Gideon Campbell MD [address] [facility] [address] [place] [address] PCP - General Family Medicine 07/19/23 documented as of this encounter
--- OUTSIDE RECORDS SUMMARY | 2024-10-22 00:25 | XMS_ITS | Encounter Summary ---
Author Organization [facility] Address [address] [facility] [address] [place] [address] Care Team Providers Care Direct Care Provider Name Role Phone Denis Platt MD Primary Care Provide r Encounter Details Date Type Department Care Team (Late st Contact Info) Description 06/18/2023 Telephone [facility] Orthopedics and Sports Medicine [address] [facility] [address] [place] [address] Herber Knott MD [address] [place] [address] [address] [place] [address] Social History Tobacco Use Types Packs/Day Years Used Date Smoking Tobacco: Former Cigarettes Q uit: 09/28/1978 Smokeless Tobacco: Never Alcohol Use Standard Drinks/Week Comments Yes 0 (1 standard drink = 0.6 oz pur e alcohol) Comments Unknown Sex and Gender Information Value Date Recorded Sex Assigned at Not on file Legal Sex Female 8:30 AM BALL MAKER Gender Identity Female 10/06/2021 4:28 PM BALL MAKER Sexual Orientation Choose not to disclose 2020 4:28 PM BALL MAKER documented as of this encounter Miscellaneous Notes * Telephone Encounter - Lisa Hernandez MA - 06/30/2023 3:16 PM CDT Pt called in. She has fired her PCP. Pt stated that she wanted a vitamin K injection like she got in the past to fix her labs. I tried to explain to her that most physicians would want to work up theabnormal labs. Pt [facility] the [facility] if they are acceptingnew patients. * Telephone Encounter - Lisa Hernandez MA - 06/24/2023 10:08 AM CDT Pt called in. She felt like her PCP was doing nothing regarding her abnormal labs. I spoke with pt and she stated that she has been anemic in the past and gotten infusions and been good to go. I tried to explain to her that it sounded like her PCP was ordering additional labs to make sure that was the problem before treating her. I also tried to explain to her that would be the correct plan sinceif she was anemic and was getting treated for anemia that could cause more problems. Pt stated thatshe felt like her PCP was just running up labs bills. Pt was informed that she is welcome to try finding a new PCP and transferring care. Pt was instructed about PCPs in [facility]. Pt also informed she could try [place] or calling her insurance for recommendations. * Telephone Encounter - Amie Lion MA - 06/22/2023 1:03 PM CDT Taken out of book thank you. * Telephone Encounter - Lisa Hernandez MA - 06/22/2023 11:26 AM CDT Pt returned called. She was informed that we would need to postpone her surgery due to abnormal labs. Pt was informed that she would need to reach out to PCP do discuss her lab levels. ONce she is worked up and cleared by her PCP she will give us a call and get her surgery rescheduled. * Telephone Encounter - Lisa Hernandez MA - 06/22/2023 9:01 AM CDT 3 attempt made to contact pt. No answer. Message left asking pt to give the office a call back [id number]. Mychart message will be sent. * Telephone Encounter - Lsia Hernandez MA - 06/21/2023 8:52 AM CDT Attempted to contact pt. No answer. Message left asking pt to give the office a call back. * Telephone Encounter - Lisa Hernandez MA - 06/18/2023 12:50 PM CDT Attempted to contact pt. No answer. Message left asking pt to give the office a call back. * Telephone Encounter - Victoria Madison PA - 06/18/2023 12:27 PM CDT At 8.1 she will need to be postponed and worked up further by her PCP. * Telephone Encounter - Lisa Hernandez MA - 06/18/2023 10:49 AM CDT Pt had her pre op testing done. Please review. Pts HGB and HCT have dropped from 04/08 at [facility]. documented in this encounter Plan of Treatment Not on file documented as of this encounter Visit Diagnoses Not on filedocumented in this encounter Care Teams Direct Care Provider Relationship Specialty Start Date End Date Denis Platt MD [address] [place] [address] PCP - General Family Medicine 01/14/22 07/18/23 documented as of this encounter
--- OUTSIDE RECORDS SUMMARY | 2024-10-22 00:25 | XMS_ITS | Encounter Summary ---
Author Organization [facility] Address [address] [place] [address] Phone Care Team Providers Care Recreational Vehicle Resort Manager Name Role Phone Gideon Campbell MD Primary Care Provider [phone] Encounter Details Date Type Department Care Team (Late st Contact Info) Description 08/04/2023 Telephone [facility] [address] [place] [phone] Yamileth Santiago, JACOB Social History Tobacco [...] on file Legal Sex Female 8:30 AM BIOMECHANICAL ENGINEER Gender Identity Female 10/06/2021 4:28 PM BIOMECHANICAL ENGINEER Sexual Orientation Choose not to disclose 2020 4:28 PM BIOMECHANICAL ENGINEER documented as of this encounter Miscellaneous Notes * Telephone Encounter - Yamileth Santiago CLT - 08/04/2023 10:06 AM CDT PATIENT REFUSED TO SCHEDULE CONSULT STATING THE SHE IS TIRED OF FOOLING WITH IT. SURGERY WAS CANCELLED BECAUSE SOMETHING WAS WRONG WITH HER BLOOD. documented in this encounter Plan of Treatment Not on file documented as of this encounter Visit Diagnoses Not on filedocumented in this encounter Care Teams Recreational Vehicle Resort Manager Relationship Specialty Start Date End Date Gideon Campbell MD [address] [facility] [address] [place] [id number] PCP - General Family Medicine 07/19/23 documented as of this encounter
--- OUTSIDE RECORDS SUMMARY | 2024-10-22 00:25 | XMS_ITS | Encounter Summary ---
Author Organization [facility] Healthcare Address [address] [place] [address] Care Team Providers Care Tag Meter Operator Name Role Phone Denis Platt MD Primary Care Provide r Encounter Details Date Type Department Care Team (Late st Contact Info) Description 06/16/2023 Orders Only [facility] Cardiology [address] [place] [id number] Stormy Bell Social History Tobacco Use Types Packs/Day Years Used Date Smoking Tobacco: Former Cigarettes Q uit: 09/28/1978 Smokeless Tobacco: Never Alcohol Use Standard Drinks/Week Comments Yes 0 (1 standard drink = 0.6 oz pur e alcohol) Comments Unknown Sex and Gender Information Value Date Recorded Sex Assigned at Not on file Legal Sex Female 8:30 AM TRANSACTION PROCESSOR Gender Identity Female 10/06/2021 4:28 PM TRANSACTION PROCESSOR Sexual Orientation Choose not to disclose 2020 4:28 PM TRANSACTION PROCESSOR documented as of this encounter Plan of Treatment Not on file documented as of this encounter Visit Diagnoses Not on filedocumented in this encounter Care Teams Tag Meter Operator Relationship Specialty Start Date End Date Denis Platt MD [address] [place] [address] PCP - General Family Medicine 01/14/22 07/18/23 documented as of this encounter
--- OUTSIDE RECORDS SUMMARY | 2024-10-22 00:25 | XMS_ITS | Encounter Summary ---
Author Organization [facility] Healthcare Address [address] [place] [address] Care Team Providers Care Processor Solid Propellant Name Role Phone Denis Platt MD Primary Care Provide r Reason for Referral * Cardiology (Routine) - Closed Specialty Diagnoses / Procedures Referred By Jayaac t Referred To Contact Diagnoses Pre-operative exam Procedures ECG 12 lead Herber Knott MD [address] [place] [address] [address], [place] [address] Phone: tel: [address] [phone] Referral ID Status Reason Start Date Expiration Date Visits Re quested Visits Authorized [id number] Closed 04/22/2023 06/16/2023 1 1 Reason for Visit * Cardiology (Routine) - Closed Specialty Diagnoses / Procedures Referred By Lyndsey farmer Referred To Contact Diagnoses Pre-operative exam Procedures ECG 12 lead Herber Knott MD [address] [place] [address] [address], [place] [address] Phone: tel: [address] [phone] Referral ID Status Reason Start Date Expiration Date Visits Re quested Visits Authorized [id number] Closed 04/22/2023 06/16/2023 1 1 Encounter Details Date Type Department Care Team (Latest Contact Info) Description 06/16/2023 9:30 AM CDT - 06/16/2023 11:59 PM CDT Hospital Encounter [facility] Cardiology [address] [place] [address] Pre-operative exam Discharge Disposition: Discharge to home [...] on file Legal Sex Female 8:30 AM TITLE 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 Gender Identity Female 10/06/2021 4:28 PM TITLE OFFICER Sexual Orientation Choose not to disclose 2020 4:28 PM TITLE OFFICER documented as of this encounter Medications at [...] Procedure Name Priority Date/Time Associated Diagnosis Comments ECG 12-LEAD Routine 06/16/2023 10:25 AM CDT Pre-operative exam documented in this encounter Results * ECG 12 lead (06/16/2023 10:25 AM CDT) 06/16/2023 11:0 0 AM CDT Narrative [facility] - 06/16/2023 11:36 AM CDT Vent Rate: 70 bpm RR Interval: [address] Interval: 139 msec QRS Duration: 132 msec QT Interval: 393 msec QTC Interval: 414 msec P-R-T [place]: 76 - -60 - 38 degrees SINUS RHYTHM RIGHT BUNDLE BRANCH BLOCK ??[120+ ms QRS DURATION, UPRIGHT V1, 40+ ms S IN I/aVL/V4/V5/V6] LEFT ANTERIOR FASCICULAR BLOCK ??[QRS AXIS <= -45, QR IN I, RS IN II] PROBABLE SEPTAL MYOCARDIAL INFARCTION , OF INDETERMINATE AGE [35 ms Q WAVE IN V1/V2] ABNORMAL ECG Electronically Signed By: Lewis Darby MD us Herber Knott MD ECG ORDERABLES Edited R esult - Final [facility] Apiphany [facility] documented in this encounter Visit Diagnoses Diagnosis Pre-operative exam Unspecified pre-operative examination documented in this encounter Care Teams Processor Solid Propellant Relationship Specialty Start Date End Date Denis Platt MD [address] [place] [address] PCP - General Family Medicine 01/14/22 07/18/23 documented as of this encounter
--- OUTSIDE RECORDS SUMMARY | 2024-10-22 00:25 | XMS_ITS | Encounter Summary ---
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 Pt should be contacted to schedule. * Telephone Encounter - Evie Funk - 07/29/2023 2:20 PM CDT Provider Referral Request Requesting Provider: Dr. Campbell Specialty: Specialty Provider/ desired region: Dr. Lofton Diagnosis/Reason for referral: unintentional weight loss, anemia of chronic disease, iron deficiency Additional information: documented in this encounter Plan of Treatment Not on file documented as of this encounter Visit Diagnoses Not on filedocumented in this encounter Care Teams Filtration Plant Operator Relationship Specialty Start Date End Date Gideon Campbell MD [address] [facility] [address] [address] PCP - General Family Medicine 07/19/23 documented as of this encounter
--- OUTSIDE RECORDS SUMMARY | 2024-10-22 00:26 | XMS_ITS | Encounter Summary ---
Author Organization [facility] Address [address] [place] [address] Care Team Providers Care Repair Welder Name Role Phone Denis Platt MD Primary Care Provide r Reason for Referral * Diagnostic Imaging (Routine) - Closed Specialty Diagnoses / Procedures Referred By Lyndsey farmer Referred To Contact Diagnoses 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 Procedures XR Hip Left 2 or 3 Views Herber Knott MD [address] [place] [address] [address], [place] [address] Phone: tel: [facility] Referral ID Status Reason Start Date Expiration Date Visits Re quested Visits Authorized [id number] Closed 04/15/2023 04/15/2023 1 1 Reason for Visit * Reason Comments Follow-up Encounter Details Date Type Department Care Team (Late st Contact Info) Description 04/15/2023 9:45 AM CDT Office Visit [facility] Orthopedics and Sports Medicine [address] [facility] [address], [place] [address] Herber Knott MD [address] [place] [address] 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 (Primary Dx); Primary osteoarthritis of right hip; Aftercare following joint replacement surgery, unspecified joint Social History Tobacco Use Types Packs/Day Years Used Date Smoking Tobacco: Former Cigarettes Q uit: 09/28/1978 Smokeless Tobacco: Never Alcohol Use Standard Drinks/Week Comments Yes 0 (1 standard drink = 0.6 oz pur e alcohol) Comments Unknown Sex and Gender Information Value Date Recorded Sex Assigned at Not on file 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 Gender Identity Female 10/06/2021 4:28 PM SHOW HORSE DRIVER Sexual Orientation Choose not to disclose 2020 4:28 PM SHOW HORSE DRIVER documented as of this encounter Last Filed Vital Signs Vital Sign Reading Time Taken Comments Blood Pressure 173/69 04/15/2023 8:51 AM CDT Pulse 73 04/15/2023 8:51 AM CDT Temperature - - Respiratory Rate - - Oxygen Saturation - - Inhaled Oxygen Concentration - - Weight 59.4 kg (131 lb) 04/15/2023 8:51 AM CDT Height 161.3 cm (5' 3.5 ) 04/15/2023 8:51 AM CDT Body Mass Index 22.84 04/15/2023 8:51 AM CDT documented in this encounter Progress Notes * Herber Knott MD - 04/15/2023 9:45 AM CDT Images from the original note were not included. FOLLOW UP VISIT Subjective CHIEF COMPLAINT She had concerns including Follow-up of the Left Hip. HISTORY OF PRESENT ILLNESS This is a pleasant 87-year-old female who is 1 year status post left total hip arthroplasty with nopain and full function on that side and satisfactory result. However she has pain on the right sidewhich is relatively severe and debilitating. She is known advanced right hip osteoarthritis which has failed extensive conservative management including anti-inflammatories, pain medication, injections, activity modification, and more. She is diminished quality of life and pain with activities of daily living and has questions regarding ongoing care. Pain Assessment Pain Assessment: 0-10 Pain Score: 0 - No pain MEDICATIONS She has a current medication list which includes the following prescription(s): ascorbic acid, hydrochlorothiazide, losartan, and warfarin. REVIEW OF SYSTEMS Review of Systems Constitutional: Negative for appetite change and fever. HENT: Negative for drooling, facial swelling and voice change. Eyes: Negative for discharge. Respiratory: Negative for apnea and wheezing. Cardiovascular: Negative for chest pain and palpitations. Gastrointestinal: Negative for abdominal distention and abdominal pain. Endocrine: Negative for polydipsia. Genitourinary: Negative for flank pain. Musculoskeletal: Positive for arthralgias and myalgias. Skin: Negative for color change and rash. Neurological: Negative for speech difficulty. Hematological: Does not bruise/bleed easily. Psychiatric/Behavioral: Negative for hallucinations. Objective PHYSICAL EXAM BP (!) 173/69 Pulse 73 Ht 161.3 cm (5' 3.5 ) Wt 59.4 kg (131 lb) BMI 22.84 kg/m?? Right hip Inspection Erythema: absent Edema: absent Swelling: absent Effusion: absent Skin temperature: normal Surgical scar/wound: absent. Gait: antalgic Limp: slight Supportive device: none Limb length: equal. Palpation Tenderness: absent. Radiating pain: no. Pop or click: no. Pelvic stability AP stress: stable Pelvic stability lateral stress: stable Range of motion The patient has reduced range of motion of the right hip. The patient has pain with range of motion of the right hip. Stability The patient has normal stabiltiy of the right hip. Strength The patient has 5/5 strength throughout. Neurovascular The patient has normal vascular on the right side of their body. The patient has normal sensation. Tests Anterior impingement: positive Posterior impingement: posterior Lateral impingement: positive Anterior apprehension: posterior JAVIER: positive Resisted SLR (straight leg raise): positive REVIEW OF X-RAYS/STUDIES/LABS XR Hip Left 2 or 3 Views Left total hip arthroplasty in appropriate position with advanced right hip osteoarthritis with ryko-po-lzoi contact, osteophyte formation, subluxation. Assessment/Plan Quin was seen today for follow-up. Diagnoses and all orders for this visit: 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 - XR Hip Left 2 or 3 Views Primary osteoarthritis of right hip PLAN I personally discussed the nature of the patient's arthritis with the patient in clinic today. The patient has tried conservative treatment with minimal relief. I recommended total hip replacement inclinic today and personally discussed the risks and benefits of total hip replacement with the patient. The risks that were discussed include, but are not limited to, delayed wound healing, infection, blood clot in the form of DVT or PE, leg length discrepancy, dislocation, periprosthetic fracture, persistent pain and dysfunction, need for additional surgery, implant wear and failure, perioperative myocardial infarction, stroke, pneumonia, and even . Patient understands these risks and agreed to proceed with the surgery as described above. All questions and concerns were addressed with the patient prior to informed surgical consent being established in the office today. The patient will follow up for surgery. Herber Knott MD documented in this encounter Plan of Treatment Not on file documented as of this encounter Procedures Procedure Name Priority Date/Time Associated Diagnosis Comments XR HIP LEFT 2 OR 3 VIEWS Schedule Routine, Read Routine (OP Routine) 04/15/2023 8:55 AM CDT 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 documented in this encounter Results * XR Hip Left 2 or 3 Views (04/15/2023 8:55 AM CDT) Anatomical Region Laterality Modality Lower Extremities, Hip, Pelvis Left D igital Radiography Narrative 04/15/2023 3:35 PM CDT Left total hip arthroplasty in appropriate position with advanced right hip osteoarthritis with ukdn-gb-deyn contact, osteophyte formation, subluxation. us Herber Knott MD IMG XR PROCEDURES Final Result documented in this encounter Visit Diagnoses Diagnosis 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- Primary Primary osteoarthritis of right hip Aftercare following joint replacement surgery, unspecified joint documented in this encounter Care Teams Repair Welder Relationship Specialty Start Date End Date Denis Platt MD [address] [place] [address] PCP - General Family Medicine 01/14/22 07/18/23 documented as of this encounter
--- OUTSIDE RECORDS SUMMARY | 2024-10-22 00:26 | XMS_ITS | Encounter Summary ---
Author Organization [facility] Address [address] [place] [address] Care Team Providers Care Perishable Freight Inspector Name Role Phone Denis Platt MD Primary Care Provide r Reason for Visit * Reason Comments Aortic Stenosis Atrial Fibrillation 6 mo f/u Encounter Details Date Type Department Care Team (Latest Contact Info) Description 01/27/2023 11:30 AM CDT Office Visit [facility] Cardiology [address] [place] [address] Andrade Brown MD [address] [address] Non-rheumatic aortic stenosis (Primary Dx); Paroxysmal 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 (CMS/HCC) (HCC); Essential hypertension; 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 goal <100; PAD (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) (HCC); 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; Weight loss Social History Tobacco Use Types Packs/Day Years Used Date Smoking Tobacco: Former Cigarettes Q uit: 09/28/1978 Smokeless Tobacco: Never Alcohol Use Standard Drinks/Week Comments Yes 0 (1 standard drink = 0.6 oz pur e alcohol) Comments Unknown Sex and Gender Information Value Date Recorded Sex Assigned at Not on file Legal Sex Female 8:30 AM TICKET SALES SUPERVISOR Gender Identity Female 10/06/2021 4:28 PM TICKET SALES SUPERVISOR Sexual Orientation Choose not to disclose 2020 4:28 PM TICKET SALES SUPERVISOR documented as of this encounter Last Filed Vital Signs Vital Sign Reading Time Taken Comments Blood Pressure 164/70 01/27/2023 11:31 AM CDT Pulse 78 01/27/2023 11:31 AM CDT Temperature - - Respiratory Rate - - Oxygen Saturation 99% 01/27/2023 11:31 AM CDT Inhaled Oxygen Concentration - - Weight 67.1 kg (148 lb) 01/27/2023 11:31 AM CDT Height 165.1 cm (5' 5 ) 01/27/2023 11:31 AM CDT Body Mass Index 24.63 01/27/2023 11:31 AM CDT documented in this encounter Progress Notes * Andrade Brown MD - 01/27/2023 11:30 AM CDT Images from the original note were not included. [facility] DATE OF VISIT: 01/27/2023 CHIEF COMPLAINT Chief Complaint Patient presents with Aortic Stenosis Atrial Fibrillation 6 mo f/u HPI Quin Talley is a 87 y.o. female with 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. She was originally seen in 2012 and she spontaneously converted. She has history of PAF dating back to 2005. She had been on flecainide and well controlled but due to worsening symptoms she was sent to Dr. Love who performed a PVI ablation last fall. Unfortunately she has reverted back into 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 had its frequent episodes and she had repeat PVI ablation recently which has been successful to this point. She feels welland denies any chest pain, shortness of breath, syncope, presyncope, paroxysmal nocturnal dyspnea, orthopnea, edema or palpitations Follow-up note October 13, 2017: Patient returns today feeling very well and denies any chest pain, shortness of breath, syncope, presyncope, paroxysmal nocturnal dyspnea, orthopnea, edema palpitations. Follow-up note 08/20/2021: Patient returns today feeling well and denies any chest pain, shortness breath, syncope, presyncope, paroxysmal nocturnal dyspnea, orthopnea, edema or palpitations. No bleeding problems Follow-up note 01/14/2022: She returns today feeling okay from a cardiac perspective: She denies any chest pain, shortness breath, syncope, presyncope, paroxysmal nocturnal dyspnea, orthopnea, edema or palpitations. She is however having significant hip pain and is probably going to be having a hipreplacement within the next couple months. Surgical date is not scheduled. Follow-up note 01/27/2023 She denies any chest pain, shortness breath, syncope, presyncope, paroxysmal nocturnal dyspnea, orthopnea, edema or palpitations. She has lost significant weight since last visit which she attributes to eating less because of inability to shop as she typically would MEDICAL HISTORY Past Medical History: Diagnosis Date Gastroesophageal reflux disease GERD HX OTHER MEDICAL 2005 PAD - non-occl. femoral sclerosis HX OTHER MEDICAL R. knee torn cartlage Hypertension Social History Tobacco Use Smoking status: Former Smoker Types: Cigarettes Quit date: 09/28/1978 Years since quittin.3 Smokeless tobacco: Never Used Substance Use Topics Alcohol use: Yes Drug use: No Family History Problem Relation Age of Onset Heart attack Father Myocardial infarction; Cancer Father Hearing loss Father Unexplained Mother natural causes MEDICATIONS Medication List Accurate as of January 27, 2023 11:35 AM. If you have any questions, ask your nurse or doctor. CONTINUE taking these medications ascorbic acid 500 mg tablet,chewable Commonly known as: VITAMIN C hydroCHLOROthiazide 25 mg tablet Commonly known as: HYDRODIURIL Take 1 tablet (25 mg total) by mouth daily losartan 100 mg tablet Commonly known as: COZAAR Take 1 tablet (100 mg total) by mouth daily warfarin 4 mg tablet Commonly known as: COUMADIN Take 1 tablet (4 mg total) by mouth daily STOP taking these medications ferrous sulfate 325 mg (65 mg of elemental iron) tablet Stopped by: Andrade Brown MD HYDROcodone-acetaminophen 5-325 mg per tablet Commonly known as: NORCO Stopped by: Andrade Brown MD ondansetron ODT 4 mg disintegrating tablet Commonly known as: ZOFRAN-ODT Stopped by: Andrade Brown MD scopolamine 1 mg over 3 days patch 3 day Stopped by: Andrade Brown MD senna-docusate 8.6-50 mg Commonly known as: PERICOLACE Stopped by: Andrade Brown MD ALLERGIES No Known Allergies REVIEW OF SYSTEMS Review of Systems Constitutional: Negative for weight gain and weight loss. HENT: Negative for hearing loss. Eyes: Negative for blurred vision and visual disturbance. Cardiovascular: Negative for chest pain, claudication, dyspnea on exertion, irregular heartbeat, leg swelling, near-syncope, orthopnea, palpitations, paroxysmal nocturnal dyspnea and syncope. Respiratory: Negative for cough, hemoptysis, shortness of breath, sleep disturbances due to breathing, snoring and wheezing. Endocrine: Negative for cold intolerance, heat intolerance and polyuria. Hematologic/Lymphatic: Bruises/bleeds easily. Skin: Negative for color change, itching and rash. Musculoskeletal: Positive for joint pain. Negative for falls, joint swelling, muscle cramps, muscleweakness and myalgias. Gastrointestinal: Positive for heartburn. Negative for abdominal pain, nausea and vomiting. Genitourinary: Negative for dysuria. Neurological: Negative for excessive daytime sleepiness, dizziness, focal weakness, headaches, light-headedness, loss of balance and numbness. Psychiatric/Behavioral: Negative for altered mental status, depression and substance abuse. The patient is not nervous/anxious. Allergic/Immunologic: Negative for environmental allergies. PHYSICAL EXAM Blood pressure 164/70, pulse 78, height 165.1 cm (5' 5 ), weight 67.1 kg (148 lb), SpO2 99 %. Body mass index is 24.63 kg/m??. Physical Exam HENT: Head: Normocephalic and atraumatic. Nose: Nose normal. Eyes: General: No scleral icterus. Conjunctiva/sclera: Conjunctivae normal. Cardiovascular: Rate and Rhythm: Normal rate and regular rhythm. Pulses: Intact distal pulses. Carotid pulses are on the left side with bruit. Heart sounds: Normal heart sounds. No murmur heard. No friction rub. No gallop. Pulmonary: Effort: Pulmonary effort is normal. No respiratory distress. Breath sounds: Normal breath sounds. No wheezing or rales. Chest: Chest wall: No tenderness. Abdominal: General: Bowel sounds are normal. There is no distension. Palpations: Abdomen is soft. Tenderness: There is no abdominal tenderness. Musculoskeletal: General: Normal range of motion. Cervical back: Neck supple. Comments: Trivial lower extremity edema bilaterally Skin: General: Skin is warm and dry. Findings: No rash. Neurological: Mental Status: She is alert and oriented to person, place, and time. LABS AND OTHER DIAGNOSTIC TESTS Lab Results Component Value Date WBC 4.73 01/28/2017 HGB 10.8 (L) 01/28/2017 HCT 33.7 (L) 01/28/2017 MCV 86.6 01/28/2017 Chemistry Component Value Date/Time CO2 24 01/28/2017 0553 CREATININE 1.21 (H) 01/28/201753 Component Value Date/Time CALCIUM 7.7 (L) 01/28/2017 0553 No results found for: CHOL No results found for: HDL No results found for: LDL] No results found for: LDLCALC No results found for: TRIG No results found for: CHOLHDL EKG 01/14/2022: Normal sinus rhythm, right bundle-branch block, left anterior fascicular block. Abnormal EKG Echo 04/02/2021 Normal left ventricular systolic function. No focal wall motion abnormalities. Normal left ventricular size. Moderate concentric left ventricular hypertrophy. Paradoxical septal motion consistent with IVCD or bundle branch block. Ejection fraction is measured at 74 %. Normal appearance of the mitral valve. Mild mitral annular calcification. Trivial regurgitation of the mitral valve. Aortic valve not well visualized. Mild aortic stenosis. Peak gradient of 23.0 mmHg. Mean gradient of 12.0 mmHg. Valve area of 1.54 cm2. No aortic regurgitation. Normal appearance of the tricuspid valve. Mild pulmonary hypertension based on right ventricular systolic pressure. Estimated peak RVSP is 38 mmHg. Mild tricuspid regurgitation. Normal sinus rhythm. Carotid artery Dopplers 10/2021: Less than 50% bilateral carotid disease MPI 02/26/2022 There is hyperdynamic global left ventricular systolic function. Left ventricular ejection fraction is 76 %. Myocardial perfusion imaging is normal. Negative EKG portion of stress test. ASSESSMENT Diagnoses and all orders for this visit: 1. Hyperlipidemia, unspecified hyperlipidemia type (Primary) Off statin because of her rash 2. Paroxysmal 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 (CMS/HCC) Status post PVI ablation x2 with recent success 3. USP (current) use of anticoagulants [Z79.01] No bleeding problems 4. PAD (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/HCC) Mild femoral disease 5. 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 goal <100 6. HTN (hypertension), benign At goal 7.. Mild carotid artery disease 8. Non-rheumatic aortic stenosis Mild: Asymptomatic 9. Weight loss Concerning amount of weight loss since last visit PLAN/RECOMMENDATIONS She has lost a concerning amount of weight since last visit. I have encouraged her to follow-up with her primary care provider for further workup evaluation and treatment. She verbalized understanding Home INR monitoring is discussed but she is not interested. Will continue to do in lab testing. She is otherwise stable. I recommend continue her current cardiac regimen without change including warfarin for PAF and anticoagulation and I will see her back in 6 months or sooner as clinically indicated. 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 Weight loss Loss of weight documented in this encounter Discontinued Medications Medication Sig Discontinue Reason Start Date End Da te ferrous sulfate 325 mg (65 mg of elemental iron) tablet Take 325 mg by mouth daily Therapy completed 04/08/2022 01/27/2023 HYDROcodone-acetaminophen (NORCO) 5-325 mg per tablet Take 1-2 tablets by mouth every 4 (four) hours as needed Therapy completed 04/08/2022 01/27/2023 ondansetron ODT (ZOFRAN-ODT) 4 mg disintegrating tablet Take 4 mg by mouth every 6 (six) hours as needed Therapy completed 04/08/2022 01/27/2023 scopolamine 1 mg over 3 days patch [address] 1 mg on the skin every third day Therapy completed 04/08/2022 01/27/2023 senna-docusate (PERICOLACE) 8.6-50 mg Take 2 tablets by mouth 2 (two) times a day Therapy completed 04/08/2022 01/27/2023 documented as of this encounter Care Teams Perishable Freight Inspector Relationship Specialty Start Date End Date Denis Platt MD [address] [place] [address] PCP - General Family Medicine 01/14/22 07/18/23 documented as of this encounter
--- OUTSIDE RECORDS SUMMARY | 2024-10-22 00:26 | XMS_ITS | Encounter Summary ---
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 Social History Tobacco Use Types Packs/Day Years Used Date Smoking Tobacco: Former Cigarettes Q uit: 09/28/1978 Smokeless Tobacco: Never Alcohol Use Standard Drinks/Week Comments Yes 0 (1 standard drink = 0.6 oz pur e alcohol) Comments Unknown Sex and Gender Information Value Date Recorded Sex Assigned at Not on file Legal Sex Female 8:30 AM TRANSIT BUS DRIVER Gender Identity Female 10/06/2021 4:28 PM TRANSIT BUS DRIVER Sexual Orientation Choose not to disclose 2020 4:28 PM TRANSIT BUS DRIVER documented as of this encounter Plan of Treatment Not on file documented as of this encounter Procedures Procedure Name Priority Date/Time Associated Diagnosis Comments PROTIME-INR Routine 01/26/2023 documented in this encounter Results * (ABNORMAL) Protime-INR (01/26/2023) INR 1.90(A) 0.9 - 1.1 EXTERNAL LAB Blood us Historical Provider LAB BLOOD ORDERABLES Noris mauro Result EXTERNAL LAB documented in this encounter Visit Diagnoses Diagnosis Atrial fibrillation, unspecified type (HCC)- Primary [facility]DC 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 documented in this encounter Care Teams Dopster Relationship Specialty Start Date End Date Denis Platt MD [address] [place] [address] PCP - General Family Medicine 01/14/22 07/18/23 documented as of this encounter
--- OUTSIDE RECORDS SUMMARY | 2024-10-22 00:26 | XMS_ITS | Encounter Summary ---
Author Organization [facility] Address [address] [place] [address] Care Team Providers Care Cdl Company Flatbed Driver Name Role Phone Denis Platt MD Primary Care Provide r Reason for Referral * Cardiology (Routine) - Closed Specialty Diagnoses / Procedures Referred By Lyndsey t Referred To Contact Diagnoses Pre-operative exam Procedures ECG 12 lead Herber Knott MD [address] [place] [address] [address], [place] [address] Phone: tel: [facility] [address] [place] [address] Referral ID Status Reason Start Date Expiration Date Visits Re quested Visits Authorized [id number] Closed 04/22/2023 06/16/2023 1 1 Encounter Details Date Type Department Care Team (Late st Contact Info) Description 04/22/2023 Orders Only [facility] Orthopedics and Sports Medicine [address], [place] [address] Herber Knott MD [address] [place] [address] [address] [place] [address] Pre-operative exam (Primary Dx) Social History Tobacco Use Types Packs/Day Years Used Date Smoking Tobacco: Former Cigarettes Q uit: 09/28/1978 Smokeless Tobacco: Never Alcohol Use Standard Drinks/Week Comments Yes 0 (1 standard drink = 0.6 oz pur e alcohol) Comments Unknown Sex and Gender Information Value Date Recorded Sex Assigned at Not on file Legal Sex Female 8:30 AM EVIDENCE CUSTODIAN Gender Identity Female 10/06/2021 4:28 PM EVIDENCE CUSTODIAN Sexual Orientation Choose not to disclose 2020 4:28 PM EVIDENCE CUSTODIAN documented as of this encounter Miscellaneous Notes * Addendum Note - Amy Tripathi CLT - 04/22/2023 1:03 PM CDTAddended by: AMY TRIPATHI on: 06/16/2023 10:36 AM Modules accepted: Orders documented in this encounter Plan of Treatment Not on file documented as of this encounter Results * (ABNORMAL) Urinalysis reflex to microscopic and culture Urine (06/17/2023 10:30 AM CDT) Color, ur Yellow Yellow [facility] ([place] Clarity, ur Turbid(A) Clear [facility] ([place]) Specific gravity, ur 1.009 1.003 - 1.030 [facility]) pH, urine 6.5 [facility] Protein, ur ql Negative Negative [facility]) Glucose, ur ql Negative Negative [facility]) Ketones, ur Negative Negative [facility] ([place]) Bilirubin, ur Negative Negative [facility]) Blood, ur Negative Negative [facility]) Urobilinogen, ur <2.0 <2.0 mg/dL [facility] ([place]) Nitrite, ur Negative Negative [facility]) Leukocyte esterase, ur 4+(A) Negative [facility] ([place]) UA reflex comment Reflex to microscopic UA will be performed. [facility]) Urine 06/17/2023 10:3 0 AM CDT 06/17/2023 11:12 AM CDT Narrative [facility] - 06/17/2023 11:16 AM CDT ?? Urine pH is affected by diet, medications, systemic acid-base disturbances, and renal tubular function. ??pH may affect urinary stone formation. ??For example, urine pH below 6.0 may help reduce the tendency for calcium phosphate stones and pH greater than 6.0 may reduce the tendency for uric acid stone formation. Source: [employer]. Last revised 10-21-2017 Herber Knott MD LAB MICROBIOLOGY - GENER AL ORDERABLES Final Result Performing Organization Address [facility] Co de Phone Number [facility] ([place]) [address] Department [place] [address] * ECG 12 lead (06/16/2023 10:25 AM CDT) 06/16/2023 11:0 0 AM CDT Narrative [facility] - 06/16/2023 11:36 AM CDT Vent Rate: 70 bpm RR Interval: 852 msec DC Interval: 139 msec QRS Duration: 132 msec QT Interval: 393 msec QTC Interval: 414 msec P-R-T Lamoni: 76 - -60 - 38 degrees SINUS RHYTHM RIGHT BUNDLE BRANCH BLOCK ??[120+ ms QRS DURATION, UPRIGHT V1, 40+ ms S IN I/aVL/V4/V5/V6] LEFT ANTERIOR FASCICULAR BLOCK ??[QRS AXIS <= -45, QR IN I, RS IN II] PROBABLE SEPTAL MYOCARDIAL INFARCTION , OF INDETERMINATE AGE [35 ms Q WAVE IN V1/V2] ABNORMAL ECG Electronically Signed By: Lewis Darby MD Herber Knott MD ECG ORDERABLES Edited R esult - Final Performing Organization Address [facility] de Phone Number [facility] * (ABNORMAL) CBC with auto differential (06/16/2023 10:05 AM CDT) WBC 7.3 3.8 - 9.9 K/cumm [facility]) Hgb 8.1(L) 11.9 - 15.5 g/dL [facility] ([place]) Hct 28.2(L) 35.6 - 45.5 % [facility] ([place]) Plt 597(H) 150 - 400 K/cumm [facility]) MPV 8.8(L) 9.1 - 12.3 fL [facility] ([place]) RBC 4.00 3.90 - 5.20 M/cumm [facility] ([place]) MCV 70.5(L) 81.3 - 96.4 fL [facility] ([place]) MCH 20.3(L) 27.1 - 33.3 pg [facility] ([place]) MCHC 28.7(L) 32.3 - 35.7 g/dL [facility] RDW CV 18.2(H) 11.1 - 14.9 % [facility]) RDW SD 46.0 35.7 - 48.1 fL [facility] NRBC abs 0.00 0.00 - 0.01 K/cumm [facility] Blood 06/16/2023 10:0 5 AM CDT 06/16/2023 11:05 AM CDT us Herber Knott MD LAB BLOOD ORDERABLES Fin al Result [facility] ([place]) [address] Department [place] [address] * (ABNORMAL) Comprehensive metabolic panel (06/16/2023 10:05 AM CDT) Sodium 137 135 - 145 mmol/L [facility] Potassium, pl 4.0 3.3 - 4.9 mmol/L [facility] Chloride 99 97 - 110 mmol/L [facility]) CO2 25 22 - 32 mmol/L [facility] Anion gap 14 2 - 15 mmol/L [facility] BUN 14 6 - 25 mg/dL [facility] Creatinine 0.76 0.60 - 1.10 mg/dL [facility]) Glucose 104 70 - 199 mg/dL [facility] Comment: Interpretive Data Fasting glucose [...] 2022. Calcium 9.2 8.5 - 10.3 mg/dL [facility] Bilirubin, total 0.5 0.1 - [...] LAB BLOOD ORDERABLES Fin al Result [facility] [address] Department [place] [address] * Hemoglobin A1c (06/16/2023 10:05 AM CDT) Hgb A1C 5.2 4.0 - 5.6 % [facility] ([place]) Estimated Average Glucose 103 mg/dL [facility] ([place]) Comment: The ADA recommends reporting an estimated Average Glucose (eAG) with all Hemoglobin A1c results using the equation derived from a study of 507 normal and diabetic adults. ??Minority populations were underrepresented and children were not included. ?? (Diabetes Care 31:3054-1892, 2008). ??The eAG is not equivalent to a fasting glucose. Blood 06/16/2023 10:0 5 AM CDT 06/16/2023 11:05 AM CDT us Herber Knott MD LAB BLOOD ORDERABLES Fin al Result [facility] [place]) [address] Department [place] [address] * XR Chest Pa Lateral 2 Views [...] 06/17/2023 5:08 PM - Electronically signed by ??Kali Georges M.D., JR: D: ??06/17/2023 5:08 PM T: ??06/17/2023 5:08 PM Report ID: [id number] Reading Location: ??[id number] Procedure Note Kali Georges MD - 06/17/2023 [...] PM - Electronically signed by Kali Georges M.D., JR: Report ID: [id number] Reading Location: [id number] Herber Knott MD IMG XR PROCEDURES Final Result documented in this encounter Visit Diagnoses Diagnosis Pre-operative exam- Primary Unspecified pre-operative examination Pre-operative exam Unspecified pre-operative examination Pre-operative exam Unspecified pre-operative examination Pre-operative exam Unspecified pre-operative examination documented in this encounter Care Teams Cdl Company Flatbed Driver Relationship Specialty Start Date End Date Denis Platt MD [address] [place] [address] PCP - General Family Medicine 01/14/22 07/18/23 documented as of this encounter
--- OUTSIDE RECORDS SUMMARY | 2024-10-22 00:26 | XMS_ITS | Encounter Summary ---
Author Organization [facility] Address [address] [place] [address] Care Team Providers Care Rn Correctional Name Role Phone Denis Platt MD Primary Care Provide r Encounter Details Date Type Department Care Team (Late st Contact Info) Description 04/24/[address] 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 Gender Identity Female 10/06/2021 4:28 PM DUMB WAITER OPERATOR Sexual Orientation Choose not to disclose 2020 4:28 PM DUMB WAITER OPERATOR documented as of this encounter Miscellaneous Notes * Telephone Encounter - Rosy White RN - 04/24/2022 9:13 AM CDT Spoke with Tennille and informed we manage INR and will call pt for todays inr * Telephone Encounter - Gavin Thornton - 04/24/2022 9:00 AM CDT Tennille called from pcp office inquiring on who manages pt INR, she will be faxing INR results from 04/05 and 04/24 to [phone],Thank you Contact:[phone] documented in this encounter Plan of Treatment Not on file documented as of this encounter Visit Diagnoses Not on filedocumented in this encounter Care Teams Rn Correctional Relationship Specialty Start Date End Date Denis Platt MD [address] [place] [address] PCP - General Family Medicine 01/14/22 07/18/23 documented as of this encounter
--- OUTSIDE RECORDS SUMMARY | 2024-10-22 00:26 | XMS_ITS | Encounter Summary ---
Author Organization [facility] Address [address] [place] [address] Care Team Providers Care Crusher Machine Operator Name Role Phone Denis Platt MD Primary Care Provide r Reason for Visit * Diagnostic Imaging (Routine) - Closed Specialty Diagnoses / Procedures Referred By Lyndsey farmer Referred To Contact Diagnoses 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 Procedures XR Hip Left 2 or 3 Views Herber Knott MD Phone: tel: [facility] Referral ID Status Reason Start Date Expiration Date Visits Re quested Visits Authorized [id number] Closed 05/21/2022 06/20/2023 1 1 Encounter Details Date Type Department Care Team (Latest Contact Info) Description 05/21/2022 7:45 AM CDT - 05/21/2022 11:59 PM CDT Hospital Encounter [facility] Orthopedics and Sports Medicine [address] [place] [address] [place] [phone] Discharge Disposition: Discharge to home or self care Social History Tobacco Use Types Packs/Day Years Used Date Smoking Tobacco: Former Cigarettes Q uit: 09/28/1978 Smokeless Tobacco: Never Alcohol Use Standard Drinks/Week Comments Yes 0 (1 standard drink = 0.6 oz pur e alcohol) Comments Unknown Sex and Gender Information Value Date Recorded Sex Assigned at Not on file Legal Sex Female 8:30 AM ADMINISTRATIVE INTERN Gender Identity Female 10/06/2021 4:28 PM ADMINISTRATIVE INTERN Sexual Orientation Choose not to disclose 2020 4:28 PM ADMINISTRATIVE INTERN documented as of this encounter Medications at Time of Discharge ascorbic acid (VITAMIN C) 500 mg tablet,chewable Take 1 tablet/chew tab (500 mg total) by mouth daily 04/08/2022 ferrous sulfate 325 mg (65 mg of elemental iron) tablet Take 325 mg by mouth daily 04/08/2022 3 hydroCHLOROthiazide (HYDRODIURIL) 25 mg tablet Take 1 tablet (25 mg total) by mouth daily 90 tablet 2 10/20/2021 3 HYDROcodone-acetamin ophen (NORCO) 5-325 mg per tablet Take 1-2 tablets by mouth every 4 (four) hours as needed 04/08/2022 3 losartan (COZAAR) 100 mg tablet Take 1 tablet (100 mg total) by mouth daily 90 tablet 2 01/08/2022 3 ondansetron ODT (ZOFRAN-ODT) 4 mg disintegrating tablet Take 4 mg by mouth every 6 (six) hours as needed 04/08/2022 3 scopolamine 1 mg over 3 days patch [address] 1 mg on the skin every third day 04/08/2022 3 senna-docusate (PERICOLACE) 8.6-50 mg Take 2 tablets by mouth 2 (two) times a day 04/08/2022 3 warfarin (COUMADIN) 4 mg tablet Take 1 tablet (4 mg total) by mouth daily 90 tablet 03/26/2022 2 documented as of this encounter Discharge Disposition Disposition Code Departure Means Destination Discharge to home or self care documented in this encounter Plan of Treatment Not on file documented as of this encounter Procedures Procedure Name Priority Date/Time Associated Diagnosis Comments XR HIP LEFT 2 OR 3 VIEWS Schedule Routine, Read Routine (OP Routine) 05/21/2022 9:06 AM CDT 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 documented in this encounter Results * XR Hip Left 2 or 3 Views (05/21/2022 9:06 AM CDT) Anatomical Region Laterality Modality Lower Extremities, Hip, Pelvis Left D igital Radiography Narrative 05/21/2022 9:26 AM CDT Left total hip replacement Herber Knott MD IMG XR PROCEDURES Edited Result - Final documented in this encounter Visit Diagnoses Not on filedocumented in this encounter Care Teams Crusher Machine Operator Relationship Specialty Start Date End Date Denis Platt MD [address] [place] [address] PCP - General Family Medicine 01/14/22 07/18/23 documented as of this encounter
--- OUTSIDE RECORDS SUMMARY | 2024-10-22 00:26 | XMS_ITS | Encounter Summary ---
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 Social History Tobacco Use Types Packs/Day Years Used Date Smoking Tobacco: Former Cigarettes Q uit: 09/28/1978 Smokeless Tobacco: Never Alcohol Use Standard Drinks/Week Comments Yes 0 (1 standard drink = 0.6 oz pur e alcohol) Comments Unknown Sex and Gender Information Value Date Recorded Sex Assigned at Not on file Legal Sex Female 8:30 AM 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 CEMENT AND PAINT MAKER Gender Identity Female 10/06/2021 4:28 PM ROOF CEMENT AND PAINT MAKER Sexual Orientation Choose not to disclose 2020 4:28 PM ROOF CEMENT AND PAINT MAKER documented as of this encounter Plan of Treatment Not on file documented as of this encounter Procedures Procedure Name Priority Date/Time Associated Diagnosis Comments PROTIME-INR Routine 08/05/2022 documented in this encounter Results * (ABNORMAL) Protime-INR (08/05/2022) INR 4.90(A) 0.9 - 1.1 EXTERNAL LAB Blood Narrative Resulting Agency Comment us Historical Provider LAB BLOOD ORDERABLES Noris mauro Result EXTERNAL LAB documented in this encounter Visit Diagnoses Diagnosis Atrial fibrillation, unspecified type (HCC)- Primary 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
--- OUTSIDE RECORDS SUMMARY | 2024-10-22 00:26 | XMS_ITS | Encounter Summary ---
Author Organization [facility] Address [address] [place] [address] Care Team Providers Care Ships Equipment Engineer Name Role Phone Denis Platt MD Primary Care Provide r Reason for Visit * Reason Comments Post-op Encounter Details Date Type Department Care Team ([facility] st Contact Info) Description 04/21/2022 11:00 AM CDT Office Visit [facility] Orthopedics and Sports Medicine [address] [place] [phone] Victoria Madison PA [address] [place] [address] [address] [place] [address] 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 (Primary Dx) Social History Tobacco Use Types Packs/Day Years Used Date Smoking Tobacco: Former Cigarettes Q uit: 09/28/1978 Smokeless Tobacco: Never Alcohol Use Standard Drinks/Week Comments Yes 0 (1 standard drink = 0.6 oz pur e alcohol) Comments Unknown Sex and Gender Information Value Date Recorded Sex Assigned at Not on file Legal Sex Female 8:30 AM EARLY CHILDHOOD LEAD TEACHER Gender Identity Female 10/06/2021 4:28 PM EARLY CHILDHOOD LEAD TEACHER Sexual Orientation Choose not to disclose 2020 4:28 PM EARLY CHILDHOOD LEAD TEACHER documented as of this encounter Last Filed Vital Signs Vital Sign Reading Time Taken Comments Blood Pressure 157/60 04/21/2022 10:53 AM CDT Pulse 67 04/21/2022 10:53 AM CDT Temperature - - Respiratory Rate - - Oxygen Saturation - - Inhaled Oxygen Concentration - - Weight 78.5 kg (173 lb) 04/21/2022 10:53 AM CDT Height 162.6 cm (5' 4 ) 04/21/2022 10:53 AM CDT Body Mass Index 29.7 04/21/2022 10:53 AM CDT documented in this encounter Progress Notes * Victoria Madison PA - 04/21/2022 11:00 AM CDT POST-OPERATIVE PROGRESS NOTE History of Present Illness Patient is a 86 y.o. female who presents for a 2 week follow-up s/p left total hip arthroplasty. The patient has no complaints at this time and has been progressing well. Pain is well controlled withoral pain medications. ROS Negative except for stated in HPI. Physical Exam Patient is A&Ox3, NAD. Incision healing well without erythema or drainage. Good hip ROM withoutimpingement. Leg lengths equal bilaterally. Ambulates well with minimal limp or antalgic gait. SILT, good DF/PF. 2+ distal pulses, cap refill < 2 seconds. XR Interpretation X-rays show well positioned hip arthroplasty without interval change. No acute pathology is noted. Assessment 1. S/P left DEEDEE, progressing well. Plan 1. Continue WBAT and activity as tolerated. 2. Continue Warfarin for post-operative DVT prophylaxis x 4 weeks. 3. Continue home therapy and daily home exercise program. 4. Follow up in 4 weeks for re-evaluation. Cosigned by Herber Knott MD at 04/21/2022 12:53 PM CDT documented in this encounter Plan of Treatment Not on file documented as of this encounter Visit Diagnoses Diagnosis 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- Primary documented in this encounter Historical Medications * This list may reflect changes made after this encounter. ascorbic acid (VITAMIN C) 500 mg tablet,chewable Take 1 tablet/chew tab (500 mg total) by mouth daily 04/08/2022 senna-docusate (PERICOLACE) 8.6-50 mg Take 2 tablets by mouth 2 (two) times a day 04/08/2022 3 scopolamine 1 mg over 3 days patch [address] 1 mg on the skin every third day 04/08/2022 3 ondansetron ODT (ZOFRAN-ODT) 4 mg disintegrating tablet Take 4 mg by mouth every 6 (six) hours as needed 04/08/2022 3 HYDROcodone-acetamin ophen (NORCO) 5-325 mg per tablet Take 1-2 tablets by mouth every 4 (four) hours as needed 04/08/2022 3 ferrous sulfate 325 mg (65 mg of elemental iron) tablet Take 325 mg by mouth daily 04/08/2022 3 added in this encounter Care Teams Ships Equipment Engineer Relationship Specialty Start Date End Date Denis Platt MD [address] [place], [place] [id number] PCP - General Family Medicine 01/14/22 07/18/23 documented as of this encounter
--- OUTSIDE RECORDS SUMMARY | 2024-10-22 00:26 | XMS_ITS | Encounter Summary ---
Author Organization [facility] Address [address] [place] [address] Care Team Providers Care Flavoring Oil Filterer Name Role Phone Denis Platt MD Primary Care Provide r Encounter Details Date Type Department Care Team (Latest Contact Info) Description 09/23/2022 Anticoagulation Visit [facility] Cardiology 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 Social History Tobacco Use Types Packs/Day Years Used Date Smoking Tobacco: Former Cigarettes Q uit: 09/28/1978 Smokeless Tobacco: Never Alcohol Use Standard Drinks/Week Comments Yes 0 (1 standard drink = 0.6 oz pur e alcohol) Comments Unknown Sex and Gender Information Value Date Recorded Sex Assigned at Not on file Legal Sex Female 8:30 AM USED CAR MANAGER Gender Identity Female 10/06/2021 4:28 PM USED CAR MANAGER Sexual Orientation Choose not to disclose 2020 4:28 PM USED CAR MANAGER documented as of this encounter Plan of Treatment Not on file documented as of this encounter Visit Diagnoses Diagnosis Atrial fibrillation, unspecified type (HCC)- Primary 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
--- OUTSIDE RECORDS SUMMARY | 2024-10-22 00:26 | XMS_ITS | Encounter Summary ---
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 Social History Tobacco Use Types Packs/Day Years Used Date Smoking Tobacco: Former Cigarettes Q uit: 09/28/1978 Smokeless Tobacco: Never Alcohol Use Standard Drinks/Week Comments Yes 0 (1 standard drink = 0.6 oz pur e alcohol) Comments Unknown Sex and Gender Information Value Date Recorded Sex Assigned at Not on file Legal Sex Female 8:30 AM DRAWING IN HAND Gender Identity Female 10/06/2021 4:28 PM DRAWING IN HAND Sexual Orientation Choose not to disclose 2020 4:28 PM DRAWING IN HAND documented as of this encounter Plan of Treatment Not on file documented as of this encounter Procedures Procedure Name Priority Date/Time Associated Diagnosis Comments PROTIME-INR Routine 05/14/2022 documented in this encounter Results * (ABNORMAL) Protime-INR (05/14/2022) INR 2.80(A) 0.9 - 1.1 EXTERNAL LAB Blood specimen (specimen) us Historical Provider LAB BLOOD ORDERABLES Noris mauro Result EXTERNAL LAB documented in this encounter Visit Diagnoses Diagnosis Atrial fibrillation, unspecified type (HCC)- Primary skilled nursing 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 documented in this encounter Care Teams Inspector Boiler Relationship Specialty Start Date End Date Denis Platt MD [address] [place] [address] PCP - General Family Medicine 01/14/22 07/18/23 documented as of this encounter
--- OUTSIDE RECORDS SUMMARY | 2024-10-22 00:26 | XMS_ITS | Encounter Summary ---
Author Organization [facility] Address [address] [place] [address] Care Team Providers Care Doctor Chiropractic Name Role Phone Denis Platt MD Primary Care Provide r Encounter Details Date Type Department Care Team (Late st Contact Info) Description 01/26/2023 Telephone [facility] Cardiology [address] [place] [address] Andrade Brown MD [facility] [place] [phone] Social History Tobacco Use Types Packs/Day Years Used Date Smoking Tobacco: Former Cigarettes Q uit: 09/28/1978 Smokeless Tobacco: Never Alcohol Use Standard Drinks/Week Comments Yes 0 (1 standard drink = 0.6 oz pur e alcohol) Comments Unknown Sex and Gender Information Value Date Recorded Sex Assigned at Not on file Legal Sex Female 8:30 AM FILTER PRESS SUPERVISOR Gender Identity Female 10/06/2021 4:28 PM FILTER PRESS SUPERVISOR Sexual Orientation Choose not to disclose 2020 4:28 PM FILTER PRESS SUPERVISOR documented as of this encounter Miscellaneous Notes * Telephone Encounter - Jacque Hitchcock RN - 01/26/2023 9:12 AM CDT Order faxed as requested. * Telephone Encounter - Elif Christina - 01/26/2023 8:45 AM CDT Alice called from [facility] requesting standing INR order be faxed. Contact: documented in this encounter Plan of Treatment Not on file documented as of this encounter Visit Diagnoses Not on filedocumented in this encounter Care Teams Doctor Chiropractic Relationship Specialty Start Date End Date Denis Platt MD [address] [place] [address] PCP - General Family Medicine 01/14/22 07/18/23 documented as of this encounter
--- OUTSIDE RECORDS SUMMARY | 2024-10-22 00:26 | XMS_ITS | Encounter Summary ---
Author Organization [facility] Address [address] [place] [address] Care Team Providers Care Interior Design Professor Name Role Phone Denis Platt MD Primary Care Provide r Encounter Details Date Type Department Care Team (Latest Contact Info) Description 04/24/2022 Anticoagulation Visit [facility] Cardiology [address] [place] [address] Rosy White RN Atrial fibrillation, unspecified type (HCC) (Primary Dx); prison 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 Social History Tobacco Use Types Packs/Day Years Used Date Smoking Tobacco: Former Cigarettes Q uit: 09/28/1978 Smokeless Tobacco: Never Alcohol Use Standard Drinks/Week Comments Yes 0 (1 standard drink = 0.6 oz pur e alcohol) Comments Unknown Sex and Gender Information Value Date Recorded Sex Assigned at Not on file Legal Sex Female 8:30 AM CORDUROY CUTTING SUPERVISOR Gender Identity Female 10/06/2021 4:28 PM CORDUROY CUTTING SUPERVISOR Sexual Orientation Choose not to disclose 2020 4:28 PM CORDUROY CUTTING SUPERVISOR documented as of this encounter Plan of Treatment Not on file documented as of this encounter Procedures Procedure Name Priority Date/Time Associated Diagnosis Comments PROTIME-INR Routine 04/24/2022 documented in this encounter Results * (ABNORMAL) Protime-INR (04/24/2022) INR 4.70(A) 0.9 - 1.1 EXTERNAL LAB Blood specimen (specimen) us Historical Provider LAB BLOOD ORDERABLES Noris mauro Result EXTERNAL LAB documented in this encounter Visit Diagnoses Diagnosis Atrial fibrillation, unspecified type (HCC)- Primary prison 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 documented in this encounter Care Teams Interior Design Professor Relationship Specialty Start Date End Date Denis Platt MD [address] [place] [address] PCP - General Family Medicine 01/14/22 07/18/23 documented as of this encounter
--- OUTSIDE RECORDS SUMMARY | 2024-10-22 00:26 | XMS_ITS | Encounter Summary ---
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 Social History Tobacco Use Types Packs/Day Years Used Date Smoking Tobacco: Former Cigarettes Q uit: 09/28/1978 Smokeless Tobacco: Never Alcohol Use Standard Drinks/Week Comments Yes 0 (1 standard drink = 0.6 oz pur e alcohol) Comments Unknown Sex and Gender Information Value Date Recorded Sex Assigned at Not on file Legal Sex Female 8:30 AM CHAIN REPAIRER Gender Identity Female 10/06/2021 4:28 PM CHAIN REPAIRER Sexual Orientation Choose not to disclose 2020 4:28 PM CHAIN REPAIRER documented as of this encounter Plan of Treatment Not on file documented as of this encounter Procedures Procedure Name Priority Date/Time Associated Diagnosis Comments PROTIME-INR Routine 11/25/2022 documented in this encounter Results * (ABNORMAL) Protime-INR (11/25/2022) INR 3.50(A) 0.9 - 1.1 EXTERNAL LAB Blood us Historical Provider LAB BLOOD ORDERABLES Noris mauro Result EXTERNAL LAB documented in this encounter Visit Diagnoses Diagnosis Atrial fibrillation, unspecified type (HCC)- Primary senior care 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 documented in this encounter Care Teams Head Stock Operator Relationship Specialty Start Date End Date Denis Platt MD [address] [place] [address] PCP - General Family Medicine 01/14/22 07/18/23 documented as of this encounter
--- OUTSIDE RECORDS SUMMARY | 2024-10-22 00:26 | XMS_ITS | Encounter Summary ---
Author Organization [facility] Address [address] [place] [address] Care Team Providers Care It Administrator Name Role Phone Denis Platt MD Primary Care Provide r Encounter Details Date Type Department Care Team (Late st Contact Info) Description 09/17/2022 Telephone [facility] Cardiology [address] [facility] [place] [address] Andrade Brown MD [facility] [place] [phone] Social History Tobacco Use Types Packs/Day Years Used Date Smoking Tobacco: Former Cigarettes Q uit: 09/28/1978 Smokeless Tobacco: Never Alcohol Use Standard Drinks/Week Comments Yes 0 (1 standard drink = 0.6 oz pur e alcohol) Comments Unknown Sex and Gender Information Value Date Recorded Sex Assigned at Not on file Legal Sex Female 8:30 AM REHAB THERAPIST Gender Identity Female 10/06/2021 4:28 PM REHAB THERAPIST Sexual Orientation Choose not to disclose 2020 4:28 PM REHAB THERAPIST documented as of this encounter Miscellaneous Notes * Telephone Encounter - Rachel Zhao RN - 09/23/2022 1:16 PM REHAB THERAPIST Spoke with pt, reviewed message from [facility]-she is agreeable to go back on warfarin-she wanted to [id number] 5 days a week and 2mg 2 days a week and will recheck INR in 2 weeks. B THERAPIST * Telephone Encounter - Rachel Zhao RN - 09/22/2022 9:15 AM REHAB THERAPIST Sent pt [facility]'s response via my chart also. B THERAPIST * Telephone Encounter - Rachel Zhao RN - 09/22/2022 9:13 AM REHAB THERAPIST LM on VM reviewing message from [facility]-requested callback to discuss. B THERAPIST * Telephone Encounter - Rachel Zhao RN - 09/21/2022 9:29 AM REHAB THERAPIST LM on VM reviewing message from [facility]-requested callback to discuss. B THERAPIST * Telephone Encounter - Rachel Zhao RN - 09/18/2022 10:21 AM REHAB THERAPIST LM on VM reviewing message from [facility]-requested callback to discuss. B THERAPIST * Telephone Encounter - Rachel Zhao RN - 09/17/2022 3:07 PM REHAB THERAPIST Spoke with pt about INR from last week-see ac flowsheet. Pt had an INR on 12.0 last week, went to ED for vit K and the following day was 2.2. Pt is very skeptical about taking warfarin anymore because of these recent erratic readings and she has not resumed her warfarin because of this. She would prefer to not take anymore if ok with [facility]. She would like to know his recommendations. Will forward to [facility]. Please advise, thank you! B THERAPIST documented in this encounter Plan of Treatment Not on file documented as of this encounter Visit Diagnoses Not on filedocumented in this encounter Care Teams It Administrator Relationship Specialty Start Date End Date Denis Platt MD [address] [place], [place] [id number] PCP - General Family Medicine 01/14/22 07/18/23 documented as of this encounter
--- OUTSIDE RECORDS SUMMARY | 2024-10-22 00:26 | XMS_ITS | Encounter Summary ---
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 Procedures XR Hip Left 2 or 3 Views Herber Knott MD [address] [place] [address] [address], [place] [address] Phone: tel: [facility] Referral ID Status Reason Start Date Expiration Date Visits Re quested Visits Authorized [id number] Closed 04/15/2023 04/15/2023 1 1 Encounter Details Date Type Department Care Team (Latest Contact Info) Description 04/15/2023 7:43 AM CDT - 04/15/2023 11:59 PM CDT Hospital Encounter [facility] Orthopedics and Sports Medicine [address] [facility] [address] [place] [id number] Discharge Disposition: Discharge to home or self care Social History Tobacco Use Types Packs/Day Years Used Date Smoking Tobacco: Former Cigarettes Q uit: 09/28/1978 Smokeless Tobacco: Never Alcohol Use Standard Drinks/Week Comments Yes 0 (1 standard drink = 0.6 oz pur e alcohol) Comments Unknown Sex and Gender Information Value Date Recorded Sex Assigned at Not on file Legal Sex Female 8:30 AM EDGE POLISHER Gender Identity Female 10/06/2021 4:28 PM EDGE POLISHER Sexual Orientation Choose not to disclose 2020 4:28 PM EDGE POLISHER documented as of this encounter Medications at [...] position with advanced right hip osteoarthritis with [id number] contact, osteophyte formation, subluxation. us Herber Knott MD IMG XR PROCEDURES Final Result documented in this encounter Visit Diagnoses Not on filedocumented in this encounter Care Teams Retrimmer Relationship Specialty Start Date End Date Denis Platt MD [address] [place] [address] PCP - General Family Medicine 01/14/22 07/18/23 documented as of this encounter
--- OUTSIDE RECORDS SUMMARY | 2024-10-22 00:26 | XMS_ITS | Encounter Summary ---
Author Organization [facility] Address [address] [place] [address] Care Team Providers Care Hardware Supplies Sales Representative Name Role Phone Denis Platt MD Primary Care Provide r Encounter Details Date Type Department Care Team (Late st Contact Info) Description 04/22/2023 Documentation [facility] Orthopedics and Sports Medicine [address] [facility] [address] [place] [phone] Amie Lion MA Social History Tobacco Use Types Packs/Day Years Used Date Smoking Tobacco: Former Cigarettes Q uit: 09/28/1978 Smokeless Tobacco: Never Alcohol Use Standard Drinks/Week Comments Yes 0 (1 standard drink = 0.6 oz pur e alcohol) Comments Unknown Sex and Gender Information Value Date Recorded Sex Assigned at Not on file Legal Sex Female 8:30 AM LEAD MECHANICAL ENGINEER Gender Identity Female 10/06/2021 4:28 PM LEAD MECHANICAL ENGINEER Sexual Orientation Choose not to disclose 2020 4:28 PM LEAD MECHANICAL ENGINEER documented as of this encounter Progress Notes * Amie Lion MA - 04/22/2023 3:29 PM CDT 1. Have you ever had a total joint replacement before? yes 2. Have you ever had a problem with anesthesia? no 3. Do you have anyone at home who can care for you? no 4. Do you have a preference of home health or outpatient therapy for the first two weeks? [facility] 5. Lower extremity only Do you own a walker? yes 6. What Pharmacy do you prefer - [facility] 7. What outpatient therapy location do you prefer - [facility] documented in this encounter Plan of Treatment Not on file documented as of this encounter Visit Diagnoses Not on filedocumented in this encounter Care Teams Hardware Supplies Sales Representative Relationship Specialty Start Date End Date Denis Platt MD [address] [place] [address] PCP - General Family Medicine 01/14/22 07/18/23 documented as of this encounter
--- OUTSIDE RECORDS SUMMARY | 2024-10-22 00:26 | XMS_ITS | Encounter Summary ---
Author Organization [facility] Address [address] [place] [address] Care Team Providers Care Community Organization Director Name Role Phone Denis Platt MD Primary Care Provide r Encounter Details Date Type Department Care Team (Latest Contact Info) Description 04/02/2023 7:54 AM CDT - 04/02/2023 11:59 PM CDT Hospital Encounter [facility] Orthopedics and Sports Medicine [address] [facility] [address], [place] [address] Discharge Disposition: Discharge to home or self care Social History Tobacco Use Types Packs/Day Years Used Date Smoking Tobacco: Former Cigarettes Q uit: 09/28/1978 Smokeless Tobacco: Never Alcohol Use Standard Drinks/Week Comments Yes 0 (1 standard drink = 0.6 oz pur e alcohol) Comments Unknown Sex and Gender Information Value Date Recorded Sex Assigned at Not on file Legal Sex Female 8:30 AM BRUSHING OPERATOR Gender Identity Female 10/06/2021 4:28 PM BRUSHING OPERATOR Sexual Orientation Choose not to disclose 2020 4:28 PM BRUSHING OPERATOR documented as of this encounter Medications at [...] Name Priority Date/Time Associated Diagnosis Comments XR KNEE RIGHT 4 OR MORE VIEWS Schedule Routine, Read Routine (OP Routine) 04/02/2023 3:33 PM CDT Primary osteoarthritis of right knee documented in this encounter Results * XR Knee Right 4 or More Views (04/02/2023 3:33 PM CDT) Anatomical Region Laterality Modality Lower Extremities, Knee Right Digital Radiography Narrative 04/05/2023 3:19 PM CDT AP, PA, lateral, and sunrise views taken of the right knee today reveal moderate to severe degenerative changes with subchondral sclerosis, osteophyte formation, and diminished joint space. us Ann Marie BUSH IMG XR PROCEDURES Final Resu lt documented in this encounter Visit Diagnoses Not on filedocumented in this encounter Care Teams Community Organization Director Relationship Specialty Start Date End Date Denis Platt MD [address] [place] [address] PCP - General Family Medicine 01/14/22 07/18/23 documented as of this encounter
--- OUTSIDE RECORDS SUMMARY | 2024-10-22 00:26 | XMS_ITS | Encounter Summary ---
Author Organization [facility] Address [address] [place] [address] Care Team Providers Care Kaiwhakahaere Name Role Phone Denis Platt MD Primary Care Provide r Encounter Details Date Type Department Care Team (Latest Contact Info) Description 11/11/[address] 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 Social History Tobacco Use Types Packs/Day Years Used Date Smoking Tobacco: Former Cigarettes Q uit: 09/28/1978 Smokeless Tobacco: Never Alcohol Use Standard Drinks/Week Comments Yes 0 (1 standard drink = 0.6 oz pur e alcohol) Comments Unknown Sex and Gender Information Value Date Recorded Sex Assigned at Not on file Legal Sex Female 8:30 AM OVERLOCK ELASTIC ATTACHER Gender Identity Female 10/06/2021 4:28 PM OVERLOCK ELASTIC ATTACHER Sexual Orientation Choose not to disclose 2020 4:28 PM OVERLOCK ELASTIC ATTACHER documented as of this encounter Plan of Treatment Not on file documented as of this encounter Procedures Procedure Name Priority Date/Time Associated Diagnosis Comments PROTIME-INR Routine 11/11/2022 documented in this encounter Results * (ABNORMAL) Protime-INR (11/11/2022) INR 5.88(A) 0.9 - 1.1 EXTERNAL LAB Blood us Historical Provider LAB BLOOD ORDERABLES Noris mauro Result EXTERNAL LAB documented in this encounter Visit Diagnoses Diagnosis Atrial fibrillation, unspecified type (HCC)- Primary nursing home 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 documented in this encounter Care Teams Kaiwhakahaere Relationship Specialty Start Date End Date Denis Platt MD [address] [place] [address] PCP - General Family Medicine 01/14/22 07/18/23 documented as of this encounter
--- OUTSIDE RECORDS SUMMARY | 2024-10-22 00:26 | XMS_ITS | Encounter Summary ---
Author Organization [facility] Address [address] [place] [address] Care Team Providers Care Architecture Department Chair Name Role Phone Denis Platt MD Primary Care Provide r Encounter Details Date Type Department Care Team (Latest Contact Info) Description 01/07/[address] 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 Social History Tobacco Use Types Packs/Day Years Used Date Smoking Tobacco: Former Cigarettes Q uit: 09/28/1978 Smokeless Tobacco: Never Alcohol Use Standard Drinks/Week Comments Yes 0 (1 standard drink = 0.6 oz pur e alcohol) Comments Unknown Sex and Gender Information Value Date Recorded Sex Assigned at Not on file Legal Sex Female 8:30 AM CLINICAL NURSING ASSISTANT Gender Identity Female 10/06/2021 4:28 PM CLINICAL NURSING ASSISTANT Sexual Orientation Choose not to disclose 2020 4:28 PM CLINICAL NURSING ASSISTANT documented as of this encounter Plan of Treatment Not on file documented as of this encounter Procedures Procedure Name Priority Date/Time Associated Diagnosis Comments PROTIME-INR Routine 01/07/2023 documented in this encounter Results * (ABNORMAL) Protime-INR (01/07/2023) INR 4.10(A) 0.9 - 1.1 EXTERNAL LAB Blood us Historical Provider LAB BLOOD ORDERABLES Edit ed Result - Final EXTERNAL LAB documented in this encounter Visit Diagnoses Diagnosis Atrial fibrillation, unspecified type (HCC)- Primary assisted 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 documented in this encounter Care Teams Architecture Department Chair Relationship Specialty Start Date End Date Denis Platt MD [address] [place] [address] PCP - General Family Medicine 01/14/22 07/18/23 documented as of this encounter
--- OUTSIDE RECORDS SUMMARY | 2024-10-22 00:26 | XMS_ITS | Encounter Summary ---
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 Social History Tobacco Use Types Packs/Day Years Used Date Smoking Tobacco: Former Cigarettes Q uit: 09/28/1978 Smokeless Tobacco: Never Alcohol Use Standard Drinks/Week Comments Yes 0 (1 standard drink = 0.6 oz pur e alcohol) Comments Unknown Sex and Gender Information Value Date Recorded Sex Assigned at Not on file Legal Sex Female 8:30 AM FRONT DESK MONITOR Gender Identity Female 10/06/2021 4:28 PM FRONT DESK MONITOR Sexual Orientation Choose not to disclose 2020 4:28 PM FRONT DESK MONITOR documented as of this encounter Plan of Treatment Not on file documented as of this encounter Procedures Procedure Name Priority Date/Time Associated Diagnosis Comments PROTIME-INR Routine 09/11/2022 PROTIME-INR Routine 09/10/2022 documented in this encounter Results * (ABNORMAL) Protime-INR (09/11/2022) INR 2.20(A) 0.9 - 1.1 EXTERNAL LAB Blood Historical Provider MD LAB BLOOD ORDERABLES Noris l Result EXTERNAL LAB * (ABNORMAL) Protime-INR (09/10/2022) INR 12.20(A) 0.9 - 1.1 EXTERNAL LAB Blood Historical Provider LAB BLOOD ORDERABLES Noris l Result EXTERNAL LAB documented in this encounter Visit Diagnoses Diagnosis Atrial fibrillation, unspecified type (HCC)- Primary [facility] 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 documented in this encounter Care Teams Rn Midwife Relationship Specialty Start Date End Date Denis Platt MD [address] [place] [address] PCP - General Family Medicine 01/14/22 07/18/23 documented as of this encounter
--- OUTSIDE RECORDS SUMMARY | 2024-10-22 00:26 | XMS_ITS | Encounter Summary ---
Author Organization [facility] Address [address] [place] [address] Care Team Providers Care Spool Fixer Name Role Phone Denis Platt MD Primary Care Provide r Encounter Details Date Type Department Care Team (Late st Contact Info) Description 01/20/2023 Telephone [facility] Cardiology [address] [place] [address] Andrade Brwon MD [facility] [place] [id number] Social History Tobacco Use Types Packs/Day Years Used Date Smoking Tobacco: Former Cigarettes Q uit: 09/28/1978 Smokeless Tobacco: Never Alcohol Use Standard Drinks/Week Comments Yes 0 (1 standard drink = 0.6 oz pur e alcohol) Comments Unknown Sex and Gender Information Value Date Recorded Sex Assigned at Not on file Legal Sex Female 8:30 AM MARINE ENGINEER Gender Identity Female 10/06/2021 4:28 PM MARINE ENGINEER Sexual Orientation Choose not to disclose 2020 4:28 PM MARINE ENGINEER documented as of this encounter Miscellaneous Notes * Telephone Encounter - Jacque Hitchcock RN - 01/25/2023 3:31 PM CDT Standing order for INR faxed to [facility] as requested. * Telephone Encounter - Rachel Zhao RN - 01/20/2023 9:52 AM CDT See ac note. * Telephone Encounter - Elif Christina - 01/20/2023 9:38 AM CDT Pt returned call from Rachel. Informed pt her INR from 01/07 was 4.1. States she has been taking Warfarin 2 mg everyday. Also states she has not started antibiotics, steroids or any other changes to her medications. Contact: documented in this encounter Plan of Treatment Scheduled Orders Name Type Priority Associated Diagnoses Orde r Schedule Protime-INR Lab Routine Atrial fibrillation, unspecified type (HCC) [facility] 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 52 Occurrences starting 01/25/2023 until 01/26/2024 documented as of this encounter Visit Diagnoses Diagnosis Atrial fibrillation, unspecified type (HCC)- Primary [facility] 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 documented in this encounter Care Teams Spool Fixer Relationship Specialty Start Date End Date Denis Platt MD [address] [place] [address] PCP - General Family Medicine 01/14/22 07/18/23 documented as of this encounter
--- OUTSIDE RECORDS SUMMARY | 2024-10-22 00:26 | XMS_ITS | Encounter Summary ---
Author Organization [facility] Address [address] [place] [address] Care Team Providers Care Evp Strategy Name Role Phone Denis Platt MD Primary Care Provide r Reason for Visit * Diagnostic Imaging (Routine) - Closed Specialty Diagnoses / Procedures Referred By Lyndsey farmer Referred To Contact Diagnoses Primary osteoarthritis of right knee Procedures XR Hip Right 2 or 3 Views Ann Marie Puri PA Phone: tel: fax: [facility] Referral ID Status Reason Start Date Expiration Date Visits Re quested Visits Authorized [id number] Closed 04/02/2023 04/02/2023 1 1 Encounter Details Date Type Department Care Team (Latest Contact Info) Description 04/02/2023 3:51 PM CDT - 04/02/2023 11:59 PM CDT Hospital Encounter [facility] Orthopedics and Sports Medicine [address] [place] [address] [address], [place] [phone] Discharge Disposition: Discharge to home or self care Social History Tobacco Use Types Packs/Day Years Used Date Smoking Tobacco: Former Cigarettes Q uit: 09/28/1978 Smokeless Tobacco: Never Alcohol Use Standard Drinks/Week Comments Yes 0 (1 standard drink = 0.6 oz pur e alcohol) Comments Unknown Sex and Gender Information Value Date Recorded Sex Assigned at Not on file Legal Sex Female 8:30 AM COMPOUND SPECIALIST Gender Identity Female 10/06/2021 4:28 PM COMPOUND SPECIALIST Sexual Orientation Choose not to disclose 2020 4:28 PM COMPOUND SPECIALIST documented as of this encounter Medications at [...] Priority Date/Time Associated Diagnosis Comments XR HIP RIGHT 2 OR 3 VIEWS Schedule Routine, Read Routine (OP Routine) 04/05/2023 3:18 PM CDT Primary osteoarthritis of right knee documented in this encounter Results * XR Hip Right 2 or 3 Views (04/05/2023 3:18 PM CDT) Anatomical Region Laterality Modality Lower Extremities, Hip, Pelvis Right D igital Radiography Narrative 04/05/2023 3:18 PM CDT AP pelvis and false profile radiographs taken of the right hip today reveal severe degenerative changes with subchondral sclerosis, osteophyte formation, and diminished joint space. us Ann Marie BUSH IMG XR PROCEDURES Final Resu lt documented in this encounter Visit Diagnoses Not on filedocumented in this encounter Care Teams Evp Strategy Relationship Specialty Start Date End Date Denis Platt MD [address] [place] [address] PCP - General Family Medicine 01/14/22 07/18/23 documented as of this encounter
--- OUTSIDE RECORDS SUMMARY | 2024-10-22 00:26 | XMS_ITS | Encounter Summary ---
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 Social History Tobacco Use Types Packs/Day Years Used Date Smoking Tobacco: Former Cigarettes Q uit: 09/28/1978 Smokeless Tobacco: Never Alcohol Use Standard Drinks/Week Comments Yes 0 (1 standard drink = 0.6 oz pur e alcohol) Comments Unknown Sex and Gender Information Value Date Recorded Sex Assigned at Not on file Legal Sex Female 8:30 AM WOOD WEB WEAVING MACHINE OPERATOR Gender Identity Female 10/06/2021 4:28 PM WOOD WEB WEAVING MACHINE OPERATOR Sexual Orientation Choose not to disclose 2020 4:28 PM WOOD WEB WEAVING MACHINE OPERATOR documented as of this encounter Plan of Treatment Not on file documented as of this encounter Procedures Procedure Name Priority Date/Time Associated Diagnosis Comments PROTIME-INR Routine 10/14/2022 documented in this encounter Results * (ABNORMAL) Protime-INR (10/14/2022) INR 3.80(A) 0.9 - 1.1 EXTERNAL LAB Blood us Historical Provider LAB BLOOD ORDERABLES Noris mauro Result EXTERNAL LAB documented in this encounter Visit Diagnoses Diagnosis Atrial fibrillation, unspecified type (HCC)- Primary retirement 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 documented in this encounter Care Teams Head Of Design Relationship Specialty Start Date End Date Denis Platt MD [address] [place] [address] PCP - General Family Medicine 01/14/22 07/18/23 documented as of this encounter
--- OUTSIDE RECORDS SUMMARY | 2024-10-22 00:26 | XMS_ITS | Encounter Summary ---
Author Organization [facility] Address [address] [facility] [address] [place] [address] Care Team Providers Care V Belt Finisher Name Role Phone Denis Platt MD Primary Care Provide r Reason for Visit * Reason Comments Follow-up 6 mo f/u Atrial Fibrillation Non-rheumatic aortic stenosis Encounter Details Date Type Department Care Team (Latest Contact Info) Description 07/22/2022 10:30 AM CDT Office Visit [facility] Cardiology [address] [place] [address] Andrade Brown MD [facility] [address] PAD (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/HCC) (HCC) (Primary Dx); 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 goal <100; 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; Non-rheumatic aortic stenosis; Essential hypertension Social History Tobacco Use Types Packs/Day Years Used Date Smoking Tobacco: Former Cigarettes Q uit: 09/28/1978 Smokeless Tobacco: Never Alcohol Use Standard Drinks/Week Comments Yes 0 (1 standard drink = 0.6 oz pur e alcohol) Comments Unknown Sex and Gender Information Value Date Recorded Sex Assigned at Not on file Legal Sex Female 8:30 AM SALESPERSON FURS Gender Identity Female 10/06/2021 4:28 PM SALESPERSON FURS Sexual Orientation Choose not to disclose 2020 4:28 PM SALESPERSON FURS documented as of this encounter Last Filed Vital Signs Vital Sign Reading Time Taken Comments Blood Pressure 138/60 07/22/2022 10:23 AM CDT Pulse 80 07/22/2022 10:23 AM CDT Temperature - - Respiratory Rate - - Oxygen Saturation 99% 07/22/2022 10:23 AM CDT Inhaled Oxygen Concentration - - Weight 76.8 kg (169 lb 4.8 oz) 07/22/2022 10:23 AM CDT Height 165.1 cm (5' 5 ) 07/22/2022 10:23 AM CDT Body Mass Index 28.17 07/22/2022 10:23 AM CDT documented in this encounter Progress Notes * Andrade Brown MD - 07/22/2022 10:30 AM CDT Images from the original note were not included. [facility] DATE OF VISIT: 07/22/2022 CHIEF COMPLAINT Chief Complaint Patient presents with Follow-up 6 mo f/u Atrial Fibrillation Non-rheumatic aortic stenosis HPI Quin Talley is a 86 y.o. female with 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. She was [...] Surgical date is not scheduled. Follow-up note 07/22/2022: She denies any chest pain, shortness breath, syncope, presyncope, paroxysmal nocturnal dyspnea, orthopnea, edema or palpitations. MEDICAL HISTORY Past Medical History: Diagnosis Date [...] causes MEDICATIONS Medication List Accurate as of July 22, 2022 11:13 AM. If you have any questions, ask your nurse or doctor. CONTINUE taking these medications ascorbic acid 500 mg tablet,chewable Commonly known as: VITAMIN C ferrous sulfate 325 mg (65 mg of elemental iron) tablet hydroCHLOROthiazide 25 mg tablet Commonly known as: HYDRODIURIL Take 1 tablet (25 mg total) by mouth daily HYDROcodone-acetaminophen 5-325 mg per tablet Commonly known as: NORCO losartan 100 mg tablet Commonly known as: COZAAR Take 1 tablet (100 mg total) by mouth daily ondansetron ODT 4 mg disintegrating tablet Commonly known as: ZOFRAN-ODT scopolamine 1 mg over 3 days patch 3 day senna-docusate 8.6-50 mg Commonly known as: PERICOLACE warfarin 4 mg tablet Commonly known as: COUMADIN Take 1 tablet (4 mg total) by mouth daily ALLERGIES No Known Allergies REVIEW OF SYSTEMS [...] for environmental allergies. PHYSICAL EXAM Blood pressure 138/60, pulse 80, height 165.1 cm (5' 5 ), weight 76.8 kg (169 lb 4.8 oz), SpO2 99 %. Body mass index is 28.17 kg/m??. 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 PAD (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/HCC) Mild femoral disease 5. 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 goal <100 6. HTN (hypertension), benign At goal 7.. Mild carotid artery disease 8. Non-rheumatic aortic stenosis Mild: Asymptomatic PLAN/RECOMMENDATIONS She is otherwise stable. I recommend continue her current cardiac regimen without change including warfarin and I will see her back in 6 months or sooner as clinically indicated. 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
--- OUTSIDE RECORDS SUMMARY | 2024-10-22 00:26 | XMS_ITS | Encounter Summary ---
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 Social History Tobacco Use Types Packs/Day Years Used Date Smoking Tobacco: Former Cigarettes Q uit: 09/28/1978 Smokeless Tobacco: Never Alcohol Use Standard Drinks/Week Comments Yes 0 (1 standard drink = 0.6 oz pur e alcohol) Comments Unknown Sex and Gender Information Value Date Recorded Sex Assigned at Not on file Legal Sex Female 8:30 AM SNOW RANGER Gender Identity Female 10/06/2021 4:28 PM SNOW RANGER Sexual Orientation Choose not to disclose 2020 4:28 PM SNOW RANGER documented as of this encounter Plan of Treatment Not on file documented as of this encounter Procedures Procedure Name Priority Date/Time Associated Diagnosis Comments PROTIME-INR Routine 06/19/2022 documented in this encounter Results * (ABNORMAL) Protime-INR (06/19/2022) INR 2.40(A) 0.9 - 1.1 EXTERNAL LAB Blood us Historical Provider LAB BLOOD ORDERABLES Noris mauro Result EXTERNAL LAB documented in this encounter Visit Diagnoses Diagnosis Atrial fibrillation, unspecified type (HCC)- Primary 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
--- OUTSIDE RECORDS SUMMARY | 2024-10-22 00:26 | XMS_ITS | Encounter Summary ---
Author Organization [facility] Address [address] [place] [address] Care Team Providers Care Professional Soccer Player Name Role Phone Denis Platt MD Primary Care Provide r Encounter Details Date Type Department Care Team (Late st Contact Info) Description 01/15/2023 Telephone [facility] Cardiology [address] [place] [address] Andrade Brown MD [facility] [place] [phone] Social History Tobacco Use Types Packs/Day Years Used Date Smoking Tobacco: Former Cigarettes Q uit: 09/28/1978 Smokeless Tobacco: Never Alcohol Use Standard Drinks/Week Comments Yes 0 (1 standard drink = 0.6 oz pur e alcohol) Comments Unknown Sex and Gender Information Value Date Recorded Sex Assigned at Not on file Legal Sex Female 8:30 AM RECEIVING ASSOCIATE STORE Gender Identity Female 10/06/2021 4:28 PM RECEIVING ASSOCIATE STORE Sexual Orientation Choose not to disclose 2020 4:28 PM RECEIVING ASSOCIATE STORE documented as of this encounter Miscellaneous Notes * Telephone Encounter - Rachel Zhao RN - 01/15/2023 9:41 AM CDT Pt INR from 01/07 was 4.1. I have reached out to pt daily via phone calls and VM, sent her a my chart message and mailing her a letter today but have been unsuccessful in reaching pt. Her second contact is a non working number. Difficulty in reaching pt regarding INR results has been a re-occuring problem. Will forward to [facility] as FYI. Pt has an upcoming appt on 01/27. documented in this encounter Plan of Treatment Not on file documented as of this encounter Visit Diagnoses Not on filedocumented in this encounter Care Teams Professional Soccer Player Relationship Specialty Start Date End Date Denis Platt MD [address] [place] [phone] PCP - General Family Medicine 01/14/22 07/18/23 documented as of this encounter
--- OUTSIDE RECORDS SUMMARY | 2024-10-22 00:26 | XMS_ITS | Encounter Summary ---
Author Organization [facility] Address [address] [place] [address] Care Team Providers Care High Court Justice Name Role Phone Denis Platt MD Primary Care Provide r Reason for Referral * Diagnostic Imaging (Routine) - Closed Specialty Diagnoses / Procedures Referred By Lyndsey farmer Referred To Contact Diagnoses 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 Procedures XR Hip Left 2 or 3 Views Herber Knott MD Phone: tel: [facility] Referral ID Status Reason Start Date Expiration Date Visits Re quested Visits Authorized [id number] Closed 05/21/2022 06/20/2023 1 1 Reason for Visit * Reason Comments Post-op Encounter Details Date Type Department Care Team ([facility] st Contact Info) Description 05/21/2022 9:15 AM CDT Office Visit [facility] Orthopedics and Sports Medicine [address] [facility] [address] [place] [phone] Herber Knott MD [address] [place] [address] [address] [place] [address] 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 (Primary Dx); Aftercare following joint replacement surgery, unspecified joint Social History Tobacco Use Types Packs/Day Years Used Date Smoking Tobacco: Former Cigarettes Q uit: 09/28/1978 Smokeless Tobacco: Never Alcohol Use Standard Drinks/Week Comments Yes 0 (1 standard drink = 0.6 oz pur e alcohol) Comments Unknown Sex and Gender Information Value Date Recorded Sex Assigned at Not on file Legal Sex Female 8:30 AM MICROPHONE OPERATOR Gender Identity Female 10/06/2021 4:28 PM MICROPHONE OPERATOR Sexual Orientation Choose not to disclose 2020 4:28 PM MICROPHONE OPERATOR documented as of this encounter Last Filed Vital Signs Vital Sign Reading Time Taken Comments Blood Pressure 160/72 05/21/2022 9:02 AM CDT Pulse 61 05/21/2022 9:02 AM CDT Temperature - - Respiratory Rate - - Oxygen Saturation - - Inhaled Oxygen Concentration - - Weight 78.5 kg (173 lb) 05/21/2022 9:02 AM CDT Height 162.6 cm (5' 4 ) 05/21/2022 9:02 AM CDT Body Mass Index 29.7 05/21/2022 9:02 AM CDT documented in this encounter Progress Notes * Herber Knott MD - 05/21/2022 9:15 AM CDT POST-OPERATIVE PROGRESS NOTE History of Present Illness Patient is a 86 y.o. female who presents for a 6 week follow-up s/p left total hip arthroplasty. The patient has no complaints at this time and has been progressing well. ROS Negative except for stated in HPI. Physical Exam Patient is A&Ox3, NAD. Incision is well healed. Good ROM without impingement. No limp or antalgic gait. 2+ distal pulses, cap refill < 2 seconds. SILT, good DF/PF. Assessment 1. S/P left DEEDEE, progressing well. Plan 1. Continue WBAT and activity as tolerated. 2. May discontinue post-operative DVT prophylaxis. 3. Follow up at one year for re-evaluation. 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
--- OUTSIDE RECORDS SUMMARY | 2024-10-22 00:26 | XMS_ITS | Encounter Summary ---
Author Organization [facility] Address [address] [place] [address] Care Team Providers Care Diesel Truck Technician Name Role Phone Denis Platt MD Primary Care Provide r Reason for Visit * Reason Onset Date Comments Surgery Date 04/16/2023 Encounter Details Date Type Department Care Team (Late st Contact Info) Description 04/16/2023 Telephone [facility] Orthopedics and Sports Medicine [address] [facility] [address] [place] [id number] Herber Knott MD [address] [place] [address] [address] [place], [place] [id number] Surgery Date Social History Tobacco Use Types Packs/Day Years Used Date Smoking Tobacco: Former Cigarettes Q uit: 09/28/1978 Smokeless Tobacco: Never Alcohol Use Standard Drinks/Week Comments Yes 0 (1 standard drink = 0.6 oz pur e alcohol) Comments Unknown Sex and Gender Information Value Date Recorded Sex Assigned at Not on file Legal Sex Female 8:30 AM POLYSTYRENE MOLDING MACHINE TENDER Gender Identity Female 10/06/2021 4:28 PM POLYSTYRENE MOLDING MACHINE TENDER Sexual Orientation Choose not to disclose 2020 4:28 PM POLYSTYRENE MOLDING MACHINE TENDER documented as of this encounter Miscellaneous Notes * Telephone Encounter - Nichole Shaikh - 04/21/2023 9:06 AM CDT Patient left a message stating that she will be able to come in tomorrow 04/22 as close to 1 pm as possible to sign her paperwork. * Telephone Encounter - Emi Núñez - 04/20/2023 9:45 AM CDT Patient returned Amie's call, stated to call back @ [phone]---tried calling that #,, it is not accepting calls at this time. Left voicemail on [phone] to let us know which day she can come in and what time between 1-3 she can come in. * Telephone Encounter - Amie Lion MA - 04/19/2023 10:54 AM CDT Called and left voicemail she may come in tomorrow 04/20 between 1:00pm and 3:00pm or between the same times, and to just give us a call if one of those days work for her. I have a folder filled out in my cabinet. * Telephone Encounter - Lisa Hernandez MA - 04/16/2023 11:18 AM CDT Pt called in. She would like to go ahead and hold a surgery date of 06/28. Pt will need to come in and formally sign consent. Please call her to set up a time for her to come in. documented in this encounter Plan of Treatment Not on file documented as of this encounter Visit Diagnoses Not on filedocumented in this encounter Care Teams Diesel Truck Technician Relationship Specialty Start Date End Date Denis Platt MD [address] [place] [id number] PCP - General Family Medicine 01/14/22 07/18/23 documented as of this encounter
--- OUTSIDE RECORDS SUMMARY | 2024-10-22 00:26 | XMS_ITS | Encounter Summary ---
Author Organization [facility] Address [address] [place] [address] Care Team Providers Care Telegraph Dispatcher Name Role Phone Denis Platt MD Primary Care Provide r Encounter Details Date Type Department Care Team (Late st Contact Info) Description 09/10/2022 Telephone [facility] Cardiology [address] [place] [address] Andrade Brown MD [facility] [place] [phone] Social History Tobacco Use Types Packs/Day Years Used Date Smoking Tobacco: Former Cigarettes Q uit: 09/28/1978 Smokeless Tobacco: Never Alcohol Use Standard Drinks/Week Comments Yes 0 (1 standard drink = 0.6 oz pur e alcohol) Comments Unknown Sex and Gender Information Value Date Recorded Sex Assigned at Not on file Legal Sex Female 8:30 AM ENTERPRISE APPLICATION DEVELOPER Gender Identity Female 10/06/2021 4:28 PM ENTERPRISE APPLICATION DEVELOPER Sexual Orientation Choose not to disclose 2020 4:28 PM ENTERPRISE APPLICATION DEVELOPER documented as of this encounter Miscellaneous Notes * Telephone Encounter - Jacque Hitchcock RN - 09/10/2022 11:24 AM ENTERPRISE APPLICATION DEVELOPER Called and spoke with pt, pt agreed to go to ER. Pt will go to [facility]. Called [facility], spoke with Olivia SETH to make aware. MAF aware. RPRISE APPLICATION DEVELOPER * Telephone Encounter - Elif Christina - 09/10/2022 11:05 AM CST Elizabeth called from [facility] to report a critical INR result. They repeated it as requested. Pt still refusing to go to ER. Pt states she is going home to take a nap. INR- 12.7 Contact: RPRISE APPLICATION DEVELOPER RPRISE APPLICATION DEVELOPER * Telephone Encounter - Jacque Hitchcock RN - 09/10/2022 9:38 AM ENTERPRISE APPLICATION DEVELOPER [facility]ceived [facility] from [facility] Critical INR result of 12.2. Spoke with pt, pt refusing to go to ER. Advised of risk of bleeding. Pt verbalizes understanding. Pt states she is done with coumadin and is not going to take it any more. She reports that she stopped taking it after the last time her INR was elevated and then restarted it taking 4 mg daily and has been doing this the past 4weeks. Discussed the risk of not taking warfarin and risk of stroke. Discussed with MAF. Pt will have INR redrawn STAT. Pt agrees. Will await repeat INR. RPRISE APPLICATION DEVELOPER RPRISE APPLICATION DEVELOPER documented in this encounter Plan of Treatment Not on file documented as of this encounter Visit Diagnoses Not on filedocumented in this encounter Care Teams Telegraph Dispatcher Relationship Specialty Start Date End Date Denis Platt MD [address] [place] [address] PCP - General Family Medicine 01/14/22 07/18/23 documented as of this encounter
--- OUTSIDE RECORDS SUMMARY | 2024-10-22 00:26 | XMS_ITS | Encounter Summary ---
Author Organization [facility] Address [address] [address] Care Team Providers Care Entry Level Paralegal Name Role Phone Denis Platt MD Primary Care Provide r Reason for Referral * Procedure (Routine) - Closed Specialty Diagnoses / Procedures Referred By Contac t Referred To Contact Diagnoses Primary osteoarthritis of right knee Procedures Large Joint (Hip, Knee, Shoulder) Injection: R knee Ann Marie Puri PA Phone: tel: fax: [facility] Referral ID Status Reason Start Date Expiration Date Visits Re quested Visits Authorized [id number] Closed 04/05/2023 04/05/2023 1 1 * Diagnostic Imaging (Routine) - Closed Specialty Diagnoses / Procedures Referred By Contac t Referred To Contact Diagnoses Primary osteoarthritis of right knee Procedures XR Hip Right 2 or 3 Views Ann Marie Puri PA Phone: tel: fax: [facility] Referral ID Status Reason Start Date Expiration Date Visits Re quested Visits Authorized [id number] Closed 04/02/2023 04/02/2023 1 1 Reason for Visit * Reason Comments Pain Encounter Details Date Type Department Care Team (Late st Contact Info) Description 04/02/2023 3:15 PM CDT Office Visit [facility] Orthopedics and Sports Medicine [address] [address] [place] [address] Ann Marie Puri PA [address] [place] [address] [address] [place] [address] Primary osteoarthritis of right knee (Primary Dx); Primary osteoarthritis of right hip Social History Tobacco Use Types Packs/Day Years Used Date Smoking Tobacco: Former Cigarettes Q uit: 09/28/1978 Smokeless Tobacco: Never Alcohol Use Standard Drinks/Week Comments Yes 0 (1 standard drink = 0.6 oz pur e alcohol) Comments Unknown Sex and Gender Information Value Date Recorded Sex Assigned at Not on file Legal Sex Female 8:30 AM SURGICAL SUPPLY ASSISTANT Gender Identity Female 10/06/2021 4:28 PM SURGICAL SUPPLY ASSISTANT Sexual Orientation Choose not to disclose 2020 4:28 PM SURGICAL SUPPLY ASSISTANT documented as of this encounter Last Filed Vital Signs Vital Sign Reading Time Taken Comments Blood Pressure 158/76 04/02/2023 3:37 PM CDT Pulse 99 04/02/2023 3:37 PM CDT Temperature - - Respiratory Rate - - Oxygen Saturation - - Inhaled Oxygen Concentration - - Weight 61.2 kg (135 lb) 04/02/2023 3:37 PM CDT Height 162.6 cm (5' 4 ) 04/02/2023 3:37 PM CDT Body Mass Index 23.17 04/02/2023 3:37 PM CDT documented in this encounter Progress Notes * Ann Marie Puri PA - 04/02/2023 3:15 PM CDTAssociated Order(s): Large Joint (Hip, Knee, Shoulder) Injection: R knee Post-Procedure Diagnose(s): Primary osteoarthritis of right knee Images from the original note were not included. FOLLOW UP VISIT WITH NEW COMPLAINT Subjective CHIEF COMPLAINT She had concerns including Pain of the Right Knee. HISTORY OF PRESENT ILLNESS Quin Talley is a pleasant 87 y.o. female who presents today with complaints of right knee pain.The right knee pain started over the last few months and is a continuous ache. The pain is worse with moving and better with sitting. She takes Tylenol, which eases the pain temporarily. She reports that she tries to do as little as possible to avoid the knee pain. The pain is located on the sides of the knee and on the superior aspect of the knee. She reports she only has pain with standing. Shereports having injections into the knees in the past with relief. She had a left DEEDEE on 04/07/2022. Her past medical history includes hypertension and ablation for 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 (2). She has been able to stop warfarin with the successful ablation. She denies any history of heart attack, stroke, or DVT/PE. She is not a diabetic. She is a former smoker who quit in 1977. Her BMI in the office today is 23.17. Pain Assessment Pain Assessment: 0-10 Pain Score: 9 MEDICATIONS She has a current medication list which includes the following prescription(s): ascorbic acid, hydrochlorothiazide, losartan, and warfarin. REVIEW OF SYSTEMS Review of Systems Constitutional: Negative for activity change, appetite change, chills and fever. HENT: Negative for congestion, dental problem, ear pain, hearing loss and voice change. Eyes: Negative for pain and visual disturbance. Respiratory: Negative for apnea, cough, chest tightness and shortness of breath. Cardiovascular: Negative for chest pain, palpitations and leg swelling. Gastrointestinal: Negative for blood in stool, constipation, diarrhea, nausea and vomiting. Endocrine: Negative for cold intolerance and heat intolerance. Genitourinary: Negative for difficulty urinating and hematuria. Musculoskeletal: Positive for arthralgias and myalgias. Skin: Negative for color change, rash and wound. Allergic/Immunologic: Negative for environmental allergies. Neurological: Negative for dizziness, syncope, numbness and headaches. Hematological: Negative for adenopathy. Does not bruise/bleed easily. Psychiatric/Behavioral: Negative for confusion. The patient is not nervous/anxious and is not hyperactive. Objective PHYSICAL EXAM BP 158/76 Pulse 99 Ht 162.6 cm (5' 4 ) Wt 61.2 kg (135 lb) BMI 23.17 kg/m?? Right hip Inspection Erythema: absent Edema: [...] positive Resisted SLR (straight leg raise): positive Right knee Inspection Erythema: absent Cellulitis: absent Swelling: mild Surgical scar/wound: absent. Skin temperature: normal Alignment: neutral Gait: antalgic Palpation Tenderness: present. The tenderness is located in the condyle, patella and tibial tubercle. Patellar tracking: normal Crepitus: positive Patella grind: positive Subluxation: negative Range of motion The patient has reduced range of motion of the right knee. The patient has pain with range of motion of the right knee. Active extension: 0 Active flexion: 121-125 Extensor lag: no. Stability AP stability: stable ML stability: stable Varus stress at 0 degrees: stable Valgus stress at 0 degrees: stable Varus stress at 30 degrees: stable Valgus stress at 30 degrees: stable Pivot shift: negative Sherry: negative Anterior drawer: negative Posterior drawer: negative Strength The patient has 5/5 strength thoughout right knee. Neurovascular The patient has normal vascular on the right side of their body. The patient has normal sensation on the right side of their body. Special tests Spencer: medial negative Spencer: lateral negative Patellar apprehension: negative REVIEW OF X-RAYS/STUDIES/LABS XR Knee Right 4 or More Views AP, PA, lateral, and sunrise views taken of the right knee today reveal moderate to severe degenerative changes with subchondral sclerosis, osteophyte formation, and diminished joint space. XR Hip Right 2 or 3 Views AP pelvis and false profile radiographs taken of the right hip today reveal severe degenerative changes with subchondral sclerosis, osteophyte formation, and diminished joint space. Assessment/Plan Quin was seen today for pain. Diagnoses and all orders for this visit: Primary osteoarthritis of right knee - XR Knee Right 4 or More Views - XR Hip Right 2 or 3 Views Primary osteoarthritis of right hip Other orders - Large Joint (Hip, Knee, Shoulder) Injection Large Joint (Hip, Knee, Shoulder) Injection: R knee Performed by: Ann Marie Puri PA Authorized by: Ann Marie Puri PA Large Joint Injection/Aspiration: Consent Given by: Patient Site marked: the procedure site was marked Timeout: prior to procedure the correct patient, procedure, and site was verified Verbal consent obtained: Yes Supporting Documentation: Indications: Pain Procedure Details: Location: Knee Site: R knee Needle Size: 22 G Approach: Anterolateral Medications: 80 mg methylPREDNISolone acetate 80 mg/mL; 3 mL lidocaine 20 mg/mL (2 %) Patient tolerance: Patient tolerated the procedure well with no immediate complications PLAN I discussed with Ms. Talley her condition and treatment options. He has moderate to severe osteoarthritis of her right knee. I recommended conservative management at this time including antiinflammatories, activity modification, and intraarticular steroid injection. I gave an intraarticular steroidinjection into her right knee today which She tolerated well. She may return to clinic in 3 months for reevaluation and possible repeat injection. On examination, I noticed that she had painful and decreased range of motion of her right hip, which may be contributing to her right knee pain. I ordered a right hip x-ray, which showed severe osteoarthritis of the right hip. I offered the patient a intra-articular fluoro guided injection to be done at [facility], but the patient would tend to see how the right knee injection went first. If the knee injection does not provide relief, she will call and we can either order a fluoro guided right hip injection or she may see Dr. Knott to discuss surgical options. She should call the office should Shehave any concerns or questions. RACHELLE Fu documented in this encounter Plan of Treatment Not on file documented as of this encounter Procedures Procedure Name Priority Date/Time Associated Diagnosis Comments XR HIP RIGHT 2 OR 3 VIEWS Schedule Routine, Read Routine (OP Routine) 04/05/2023 3:18 PM CDT Primary osteoarthritis of right knee XR KNEE RIGHT 4 OR MORE VIEWS Schedule Routine, Read Routine (OP Routine) 04/02/2023 3:33 PM CDT Primary osteoarthritis of right knee DE ARTHROCENTESIS ASPIR&/INJ MAJOR JT/BURSA W/O US Routine 04/02/2023 3:15 PM CDT Primary osteoarthritis of right knee [...] sclerosis, osteophyte formation, and diminished joint space. Ann Marie BUSH IMG XR PROCEDURES Final Resu lt * XR Knee Right 4 or More Views (04/02/2023 3:33 PM CDT) Anatomical Region Laterality Modality Lower Extremities, Knee Right Digital Radiography Narrative 04/05/2023 3:19 PM CDT AP, PA, lateral, and sunrise views taken of the right knee today reveal moderate to severe degenerative changes with subchondral sclerosis, osteophyte formation, and diminished joint space. Ann Marie BUSH IMG XR PROCEDURES Final Resu lt * DE ARTHROCENTESIS ASPIR&/INJ MAJOR JT/BURSA W/O US (04/02/2023 3:15 PM CDT) Narrative Ann Marie Puri PA - 04/02/2023 3:15 PM CDT Ann Marie Puri PA ? 04/05/2023 ??3:21 PM Large Joint (Hip, Knee, Shoulder) Injection: R knee Performed by: Ann Marie Puri PA Authorized by: Ann Marie Puri PA ?? Large Joint Injection/Aspiration: ??Consent Given by: ??Patient ??Site marked: the procedure site was marked ?Timeout: prior to procedure the correct patient, procedure, and site was verified ?Verbal consent obtained: Yes ?? Supporting Documentation: ??Indications: ??Pain Procedure Details: ??Location: ??Knee ??Site: ??R knee ??Needle Size: ??22 G ??Approach: ??Anterolateral ??Medications: ??80 mg methylPREDNISolone acetate 80 mg/mL; 3 mL lidocaine 20 mg/mL (2 %) ??Patient tolerance: ??Patient tolerated the procedure well with no immediate complications us Ann Marie BUSH IN CLINIC/BEDSIDE ORDERABLES Final Result documented in this encounter Visit Diagnoses Diagnosis Primary osteoarthritis of right knee- Primary Primary osteoarthritis of right hip documented in this encounter Administered Medications Inactive Administered Medications - up to 3 most recent administrations Medication Order MAR Action Action Date Dose Rate Site lidocaine (XYLOCAINE) 20 mg/mL (2 %) injection 3 mL 3 mL, One-Time Injection, Starting on Wed04/05/23 at 1520, For 1 dose, Indications: Administration of Local AnesthesiaIndications:Administ ration of Local Anesthesia Given 04/05/2023 3:20 PM CDT 3 mL Right Knee methylPREDNISolone acetate (DEPO-medrol) injection 80 mg 80 mg, intra-articular, One-Time Injection, Starting on Wed04/05/23 at 1520, For 1 doseIndications:Primary osteoarthritis of right knee Given 04/05/2023 3:20 PM CDT 80 mg Right Knee documented in this encounter Care Teams Entry Level Paralegal Relationship Specialty Start Date End Date Denis Platt MD [address] [place] [address] PCP - General Family Medicine 01/14/22 07/18/23 documented as of this encounter
--- OUTSIDE RECORDS SUMMARY | 2024-10-22 00:27 | XMS_ITS | Encounter Summary ---
Author Organization [facility] Address [address] [place] [address] Care Team Providers Care Plumber Maintenance Name Role Phone Devaughn Macias MD Primary Care Provider Encounter Details Date Type Department Care Team (Latest Contact Info) Description 04/30/2021 Anticoagulation Visit [facility] Cardiology [address] [place] [address] Jesica Estrada RN Atrial fibrillation, unspecified type (HCC) (Primary Dx); long-term 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 Social History Tobacco Use Types Packs/Day Years Used Date Smoking Tobacco: Former Cigarettes Q uit: 09/28/1978 Smokeless Tobacco: Never Alcohol Use Standard Drinks/Week Comments Yes 0 (1 standard drink = 0.6 oz pur e alcohol) Comments Unknown Sex and Gender Information Value Date Recorded Sex Assigned at Not on file Legal Sex Female 8:30 AM 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 Gender Identity Female 10/06/2021 4:28 PM 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 Sexual Orientation Choose not to disclose 2020 4:28 PM 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 documented as of this encounter Plan of Treatment Not on file documented as of this encounter Procedures Procedure Name Priority Date/Time Associated Diagnosis Comments PROTIME-INR Routine 04/30/2021 documented in this encounter Results * (ABNORMAL) Protime-INR (04/30/2021) INR 2.70(A) 0.9 - 1.1 EXTERNAL LAB Blood specimen (specimen) us Historical Provider LAB BLOOD ORDERABLES Noris mauro Result EXTERNAL LAB documented in this encounter Visit Diagnoses Diagnosis Atrial fibrillation, unspecified type (HCC)- Primary 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
--- OUTSIDE RECORDS SUMMARY | 2024-10-22 00:27 | XMS_ITS | Encounter Summary ---
Author Organization [facility] Address [address] [place] [address] Care Team Providers Care Broadcast Checker Name Role Phone Devaughn Macias MD Primary Care Provider Reason for Visit * Diagnostic Imaging (Routine) - Closed Specialty Diagnoses / Procedures Referred By Lyndsey t Referred To Contact Diagnoses Left knee pain, unspecified chronicity Procedures XR Knee Left 4 or More Views Victoria Madison PA [address] [place] [address] [address] [address] Phone: tel: fax: Referral ID Status Reason Start Date Expiration Date Visits Re quested Visits Authorized [id number] Closed 10/30/2021 11/29/2022 1 1 Encounter Details Date Type Department Care Team (Latest Contact Info) Description 10/30/2021 7:48 AM ANTHROPOMETRIST - 10/30/2021 11:59 PM ANTHROPOMETRIST Hospital Encounter [facility] Orthopedics and Sports Medicine [address] [place] [id number] Discharge Disposition: Discharge to home or self care Social History Tobacco Use Types Packs/Day Years Used Date Smoking Tobacco: Former Cigarettes Q uit: 09/28/1978 Smokeless Tobacco: Never Alcohol Use Standard Drinks/Week Comments Yes 0 (1 standard drink = 0.6 oz pur e alcohol) Comments Unknown Sex and Gender Information Value Date Recorded Sex Assigned at Not on file Legal Sex Female 8:30 AM ANTHROPOMETRIST Gender Identity Female 10/06/2021 4:28 PM ANTHROPOMETRIST Sexual Orientation Choose not to disclose 2020 4:28 PM ANTHROPOMETRIST documented as of this encounter Medications at Time of Discharge hydroCHLOROthiazi de (HYDRODIURIL) 25 mg tablet Take 1 tablet (25 mg total) by mouth daily 90 tablet 2 10/20/2021 07/08/2023 losartan (COZAAR) 100 mg tablet Take 1 tablet (100 mg total) by mouth daily 90 tablet 2 10/20/2021 01/08/2022 warfarin (COUMADIN) 4 mg tablet Take one and one-half tablets by mouth every Wednesday, , and one tablet all other days of the week. 90 tablet 10/20/2021 01/08/2022 documented as of this encounter Discharge Disposition Disposition Code Departure Means Destination Discharge to home or self care documented in this encounter Plan of Treatment Not on file documented as of this encounter Procedures Procedure Name Priority Date/Time Associated Diagnosis Comments XR KNEE LEFT 4 OR MORE VIEWS Schedule Routine, Read Routine (OP Routine) 10/30/2021 8:49 AM ANTHROPOMETRIST Primary osteoarthritis of left knee documented in this encounter Results * XR Knee Left 4 or More Views (10/30/2021 8:49 AM ANTHROPOMETRIST) Anatomical Region Laterality Modality Lower Extremities, Knee Left Digital Radiography Narrative 10/30/2021 9:37 AM ANTHROPOMETRIST Radiographs taken of the left knee today reveal moderate degenerative changes with subchondral sclerosis, osteophyte formation, and diminished joint space. Victoria BUSH IMG XR PROCEDURES Fin al Result documented in this encounter Visit Diagnoses Not on filedocumented in this encounter Care Teams Broadcast Checker Relationship Specialty Start Date End Date Devaughn Macias MD PCP - General Family Medicine 01/31/20 01/13/22 documented as of this encounter
--- OUTSIDE RECORDS SUMMARY | 2024-10-22 00:27 | XMS_ITS | Encounter Summary ---
Author Organization [facility] Address [address] [place] [address] Care Team Providers Care Slide Maker Name Role Phone Devaughn Macias MD Primary Care Provider Encounter Details Date Type Department Care Team (Late st Contact Info) Description 10/09/[address] [facility] Orthopedics and Sports Medicine [address] [facility] [address], [place] [address] Blossom Conley MA Social History Tobacco Use Types Packs/Day Years Used Date Smoking Tobacco: Former Cigarettes Q uit: 09/28/1978 Smokeless Tobacco: Never Alcohol Use Standard Drinks/Week Comments Yes 0 (1 standard drink = 0.6 oz pur e alcohol) Comments Unknown Sex and Gender Information Value Date Recorded Sex Assigned at Not on file Legal Sex Female 8:30 AM CORNER BLOCK CUTTER Gender Identity Female 10/06/2021 4:28 PM CORNER BLOCK CUTTER Sexual Orientation Choose not to disclose 2020 4:28 PM CORNER BLOCK CUTTER documented as of this encounter Miscellaneous Notes * Telephone Encounter - Blossom Conley MA - 10/13/2021 9:01 AM CORNER BLOCK CUTTER Secondary insurance is a Medicare supplement plan. No auth required. Called and left voicemail for patient with scheduling's number. ER BLOCK CUTTER * Telephone Encounter - Blossom Conley MA - 10/09/2021 10:52 AM CORNER BLOCK CUTTER Fluoro guided injection ordered. Working on auth- has secondary insurance of [employer] ER BLOCK CUTTER documented in this encounter Plan of Treatment Not on file documented as of this encounter Visit Diagnoses Not on filedocumented in this encounter Care Teams Slide Maker Relationship Specialty Start Date End Date Devaughn Macias MD PCP - General Family Medicine 01/31/20 01/13/22 documented as of this encounter
--- OUTSIDE RECORDS SUMMARY | 2024-10-22 00:27 | XMS_ITS | Encounter Summary ---
Author Organization [facility] Address [address] [place] [address] Care Team Providers Care Activities Specialist Name Role Phone Denis Platt MD Primary Care Provide r Reason for Visit * Reason Comments Follow-up Encounter Details Date Type Department Care Team ([facility] Contact Info) Description 03/19/2022 10:30 AM CDT Office Visit [facility] Orthopedics and Sports Medicine [address] [facility] [address] [place] [phone] Herber Knott MD [address] [place] [address] [address] [place] [address] Primary osteoarthritis of left hip (Primary Dx); Pre-operative exam Social History Tobacco Use Types Packs/Day Years Used Date Smoking Tobacco: Former Cigarettes Q uit: 09/28/1978 Smokeless Tobacco: Never Alcohol Use Standard Drinks/Week Comments Yes 0 (1 standard drink = 0.6 oz pur e alcohol) Comments Unknown Sex and Gender Information Value Date Recorded Sex Assigned at Not on file Legal Sex Female 8:30 AM RESEARCH LAB ASSISTANT Gender Identity Female 10/06/2021 4:28 PM RESEARCH LAB ASSISTANT Sexual Orientation Choose not to disclose 2020 4:28 PM RESEARCH LAB ASSISTANT documented as of this encounter Last Filed Vital Signs Vital Sign Reading Time Taken Comments Blood Pressure 149/68 03/19/2022 10:07 AM CDT Pulse 79 03/19/2022 10:07 AM CDT Temperature - - Respiratory Rate - - Oxygen Saturation - - Inhaled Oxygen Concentration - - Weight 81.6 kg (180 lb) 03/19/2022 10:07 AM CDT Height 162.6 cm (5' 4 ) 03/19/2022 10:07 AM CDT Body Mass Index 30.9 03/19/2022 10:07 AM CDT documented in this encounter Progress Notes * Herber Knott MD - 03/19/2022 10:30 AM CDT Images from the original note were not included. FOLLOW UP VISIT Subjective CHIEF COMPLAINT She had concerns including Follow-up of the Left Hip. HISTORY OF PRESENT ILLNESS This is a pleasant 86-year-old female with known severe advanced left hip osteoarthritis refractoryto extensive conservative management including anti- inflammatories, pain medication, injections, activity modification, and more. She has diminished quality of life and pain with activities of daily living. She is requesting left total hip replacement. Her pain is 9/10 in severity. She denies diabetes and smoking and has a BMI of 31. Pain Assessment Pain Assessment: 0-10 Pain Score: 9 MEDICATIONS She has a current medication list which includes the following prescription(s): hydrochlorothiazide, losartan, and warfarin. REVIEW OF SYSTEMS Review of Systems Constitutional: Negative for appetite change and fever. HENT: Negative for drooling, facial swelling and voice change. Eyes: Negative for discharge. Respiratory: Negative for apnea and wheezing. Cardiovascular: Negative for chest pain and palpitations. Gastrointestinal: Negative for abdominal distention and abdominal pain. Endocrine: Negative for polydipsia. Genitourinary: Negative for flank pain. Musculoskeletal: Positive for arthralgias, gait problem, joint swelling and myalgias. Skin: Negative for color change and rash. Neurological: Negative for speech difficulty. Hematological: Does not bruise/bleed easily. Psychiatric/Behavioral: Negative for hallucinations. Objective PHYSICAL EXAM BP 149/68 Pulse 79 Ht 162.6 cm (5' 4 ) Wt 81.6 kg (180 lb) BMI 30.90 kg/m?? Left hip Inspection Erythema: absent Edema: absent Swelling: absent Effusion: absent Skin temperature: normal Surgical scar/wound: absent. Gait: antalgic Limp: slight Supportive device: none Limb length: equal. Palpation Tenderness: absent. Radiating pain: no. Pop or click: no. Pelvic stability AP stress: stable Pelvic stability lateral stress: stable Range of motion The patient has reduced range of motion of the left hip. The patient has pain with range of motion of the left hip. Stability The patient has normal stability of the left hip. Strength The patient has 5/5 strength throughout. Neurovascular The patient has normal vascular on the left side of their body. The patient has normal sensation on the left side of their body. Tests Anterior impingement: positive Posterior impingement: positive Lateral impingement: positive Anterior apprehension: positive JAVIER: positive Hardeep's: negative Resisted SLR (straight leg raise): positive REVIEW OF X-RAYS/STUDIES/LABS severe advanced left hip osteoarthritis with [id number] contact, osteophyte formation, subluxation. Assessment/Plan Quin was seen today for follow-up. Diagnoses and all orders for this visit: Pre-operative exam - XR Chest Pa Lateral 2 Views; Future - Urinalysis reflex to microscopic and culture Urine; Future - Protime-INR; Future - Hemoglobin A1c; Future - ECG 12 lead; Future - Comprehensive metabolic panel; Future - CBC with auto differential; Future - aPTT; Future PLAN I personally discussed the nature of [...] as of this encounter Visit Diagnoses Diagnosis Primary osteoarthritis of left hip- Primary Pre-operative exam Unspecified pre-operative examination documented in this encounter Care Teams Activities Specialist Relationship Specialty Start Date End Date Denis Platt MD [address] [place] [address] PCP - General Family Medicine 01/14/22 07/18/23 documented as of this encounter
--- OUTSIDE RECORDS SUMMARY | 2024-10-22 00:27 | XMS_ITS | Encounter Summary ---
Author Organization [facility] Address [address] [place] [address] Care Team Providers Care Drivematic Machine Operator Name Role Phone Denis Platt MD Primary Care Provide r Encounter Details Date Type Department Care Team (Late st Contact Info) Description 03/25/2022 Orders Only [facility] Orthopedics and Sports Medicine [address] [facility] [address] [place] [address] Herber Knott MD [address] [place] [address] [address] [place], [place] [id number] Social History Tobacco Use Types Packs/Day Years Used Date Smoking Tobacco: Former Cigarettes Q uit: 09/28/1978 Smokeless Tobacco: Never Alcohol Use Standard Drinks/Week Comments Yes 0 (1 standard drink = 0.6 oz pur e alcohol) Comments Unknown Sex and Gender Information Value Date Recorded Sex Assigned at Not on file Legal Sex Female 8:30 AM FILM TESTS CHECKER Gender Identity Female 10/06/2021 4:28 PM FILM TESTS CHECKER Sexual Orientation Choose not to disclose 2020 4:28 PM FILM TESTS CHECKER documented as of this encounter Ordered Prescriptions Prescription Sig Dispense Quantity Refills Last Filled Start Date End Date nitrofurantoin monohydrate (MACROBID) 100 mg capsule Take 1 capsule (100 mg total) by mouth 2 (two) times a day for 10 days 20 capsule 03/25/2022 documented in this encounter Progress Notes * Lilly Moncada MA - 03/25/2022 12:11 PM CDT Sent script to patients pharmacy and she is aware documented in this encounter Plan of Treatment Not on file documented as of this encounter Visit Diagnoses Not on filedocumented in this encounter Care Teams Drivematic Machine Operator Relationship Specialty Start Date End Date Denis Platt MD [address] [place], [place] [id number] PCP - General Family Medicine 01/14/22 07/18/23 documented as of this encounter
--- OUTSIDE RECORDS SUMMARY | 2024-10-22 00:27 | XMS_ITS | Encounter Summary ---
Author Organization [facility] Address [address] [place] [address] Care Team Providers Care Magnetic Doctor Name Role Phone Devaughn Macias MD Primary Care Provider Encounter Details Date Type Department Care Team (Latest Contact Info) Description 07/16/2021 Anticoagulation Visit [facility] Cardiology [address] [place] [address] Rachel Zhao RN Atrial fibrillation, unspecified type (HCC) (Primary Dx); skilled nursing 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 Social History Tobacco Use Types Packs/Day Years Used Date Smoking Tobacco: Former Cigarettes Q uit: 09/28/1978 Smokeless Tobacco: Never Alcohol Use Standard Drinks/Week Comments Yes 0 (1 standard drink = 0.6 oz pur e alcohol) Comments Unknown Sex and Gender Information Value Date Recorded Sex Assigned at Not on file Legal Sex Female 8:30 AM HOT STRIP FINISHER Gender Identity Female 10/06/2021 4:28 PM HOT STRIP FINISHER Sexual Orientation Choose not to disclose 2020 4:28 PM HOT STRIP FINISHER documented as of this encounter Plan of Treatment Not on file documented as of this encounter Procedures Procedure Name Priority Date/Time Associated Diagnosis Comments PROTIME-INR Routine 07/16/2021 documented in this encounter Results * (ABNORMAL) Protime-INR (07/16/2021) INR 2.70(A) 0.9 - 1.1 EXTERNAL LAB Blood specimen (specimen) us Historical Provider LAB BLOOD ORDERABLES Noris mauro Result EXTERNAL LAB documented in this encounter Visit Diagnoses Diagnosis Atrial fibrillation, unspecified type (HCC)- Primary skilled nursing 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 documented in this encounter Care Teams Magnetic Doctor Relationship Specialty Start Date End Date Devaughn Macias MD PCP - General Family Medicine 01/31/20 01/13/22 documented as of this encounter
--- OUTSIDE RECORDS SUMMARY | 2024-10-22 00:27 | XMS_ITS | Encounter Summary ---
Author Organization [facility] Address [address] [address] Care Team Providers Care Commuter Train Operator Name Role Phone Devaughn Macias MD Primary Care Provider Reason for Referral * Procedure (Routine) - Closed Specialty Diagnoses / Procedures Referred By Contac t Referred To Contact Diagnoses Primary osteoarthritis of left knee Procedures Large Joint (Hip, Knee, Shoulder) Injection: L knee Victoria Madison PA [address] [place] [address] Phone: tel: fax: [facility] Referral ID Status Reason Start Date Expiration Date Visits Re quested Visits Authorized [id number] Closed 10/30/2021 11/29/2022 1 1 RVISOR SOUND TECHNICIAN * Diagnostic Imaging (Routine) - Closed Specialty Diagnoses / Procedures Referred By Contac t Referred To Contact Diagnoses Left knee pain, unspecified chronicity Procedures XR Knee Left 4 or More Views Victoria Madison PA [address] [place] [address] [place] [address] Phone: tel: fax: Referral ID Status Reason Start Date Expiration Date Visits Re quested Visits Authorized [id number] Closed 10/30/2021 11/29/2022 1 1 RVISOR SOUND TECHNICIAN Reason for Visit * Reason Comments Pain Encounter Details Date Type Department Care Team (Late st Contact Info) Description 10/30/2021 9:00 AM SUPERVISOR SOUND TECHNICIAN Office Visit [facility] Orthopedics and Sports Medicine [address] [place] [address] [address] [place] [phone] Victoria Madison PA [address] [place] [address] [address] [place] [address] Primary osteoarthritis of left knee (Primary Dx); Pes anserinus bursitis of left knee Social History Tobacco Use Types Packs/Day Years Used Date Smoking Tobacco: Former Cigarettes Q uit: 09/28/1978 Smokeless Tobacco: Never Alcohol Use Standard Drinks/Week Comments Yes 0 (1 standard drink = 0.6 oz pur e alcohol) Comments Unknown Sex and Gender Information Value Date Recorded Sex Assigned at Not on file Legal Sex Female 8:30 AM SUPERVISOR SOUND TECHNICIAN Gender Identity Female 10/06/2021 4:28 PM SUPERVISOR SOUND TECHNICIAN Sexual Orientation Choose not to disclose 2020 4:28 PM SUPERVISOR SOUND TECHNICIAN documented as of this encounter Last Filed Vital Signs Vital Sign Reading Time Taken Comments Blood Pressure 172/77 10/30/2021 8:52 AM SUPERVISOR SOUND TECHNICIAN Pulse 56 10/30/2021 8:52 AM SUPERVISOR SOUND TECHNICIAN Temperature - - Respiratory Rate - - Oxygen Saturation - - Inhaled Oxygen Concentration - - Weight 86.2 kg (190 lb) 10/30/2021 8:52 AM SUPERVISOR SOUND TECHNICIAN Height 165.1 cm (5' 5 ) 10/30/2021 8:52 AM SUPERVISOR SOUND TECHNICIAN Body Mass Index 31.62 10/30/2021 8:52 AM SUPERVISOR SOUND TECHNICIAN documented in this encounter Progress Notes * Victoria Madison PA - 10/30/2021 9:00 AM CSTAssociated Order(s): Large Joint (Hip, Knee, Shoulder) Injection: L knee Post-Procedure Diagnose(s): Primary osteoarthritis of left knee Images from the original note were not included. This patient has been reviewed and COVID-19 risk has been assessed. Based on our clinical judgement, we find it appropriate to see this patient in clinic today. Our staff performed proper precautionsand wore appropriate PPE when caring for this patient in office today. Both myself and the patient wore a mask throughout the visit. The patient understands current COVID-19 risks and wished to be seen today. NEW PATIENT VISIT Subjective CHIEF COMPLAINT She had no chief complaint listed for this encounter. HISTORY OF PRESENT ILLNESS Ms. Talley is a pleasant 86 year old female who presents to clinic with the new complaint of left knee pain. The pain has been present for quite some time now and continues to worsen gradually. She denies any pain at rest, but states her symptoms worsen with standing and ambulation. She localizes the pain primarily to the medial aspect of her knee with radiation down the anterior aspect of her lower leg. She describes the pain as a dull ache and rates it at a 5 to 6/10. She takes Tylenol when it is severe, which provides her with relief. She denies any mechanical symptoms or feelings of instability as well as any other complaints at this time. PAST MEDCIAL HISTORY She has a past medical history of Gastroesophageal reflux disease, OTHER MEDICAL (2005), and OTHER MEDICAL. PAST SURGICAL HISTORY She has a past surgical history that includes Tonsillectomy; [place] Fluoro Guided Injection Hip Left (Left, 06/26/2020); and [place] Fluoro Guided Injection Hip Left (Left, 10/23/2021). MEDICATIONS She has a current medication list which includes the following prescription(s): hydrochlorothiazide, losartan, and warfarin. ALLERGIES She has No Known Allergies. SOCIAL HISTORY She reports that she quit smoking about 43 years ago. Her smoking use included cigarettes. She has never used smokeless tobacco. She reports current alcohol use. She reports that she does not use drugs. FAMILY HISTORY Her family history includes Cancer in her father; Heart attack in her father; Unexplained in her mother. REVIEW OF SYSTEMS Review of Systems Constitutional: Negative for appetite change and fever. HENT: Negative for drooling, facial swelling and voice change. Eyes: Negative for discharge. Respiratory: Negative for apnea and wheezing. Cardiovascular: Negative for chest pain and palpitations. Gastrointestinal: Negative for abdominal distention and abdominal pain. Endocrine: Negative for polydipsia. Genitourinary: Negative for flank pain. Musculoskeletal: Positive for arthralgias, joint swelling and myalgias. Skin: Negative for color change and rash. Neurological: Negative for speech difficulty. Hematological: Does not bruise/bleed easily. Psychiatric/Behavioral: Negative for hallucinations. Objective PHYSICAL EXAM There were no vitals taken for this visit. Left knee Inspection Erythema: absent Cellutlis: absent Swelling: mild Effusion: absent Surgical scar/wound: absent. Skin temperature: normal Alignment: neutral Gait: antalgic Palpation Tenderness: present. The tenderness is located in the condyle, patella, tibial tubercle and pes anserinus. Patellar tracking: normal Crepitus: positive Patella grind: positive Subluxation: negative Range of motion The patient has normal range of motion of the left knee. The patient does not have pain with range of motion of the left knee. Active extension: 0 Active flexion: 121-125 Extensor lag: no. Stability AP stability: stable ML stability: stable Varus stress at 0 degrees: stable Valgus stress at 0 degrees: stable Varus stress at 30 degrees: stable Valgus stress at 30 degrees: stable Sherry: negative Anterior drawer: negative Posterior drawer: negative Strength The patient has 5/5 strength throughout. Neurovascular The patient has normal vascular on the left side of their body. The patient has normal sensation on the left side of their body. Special tests Spencer: medial negative lateral negative Patellar apprehension: negative REVIEW OF X-RAYS/STUDIES/LABS Assessment/Plan There are no diagnoses linked to this encounter. Large Joint (Hip, Knee, Shoulder) Injection: L knee Performed by: Victoria Madison PA Authorized by: Victoria Madison PA Large Joint Injection/Aspiration: Consent Given by: Patient Site marked: the procedure site was marked Timeout: prior to procedure the correct patient, procedure, and site was verified Verbal consent obtained: Yes Supporting Documentation: Indications: Pain Procedure Details: Location: Knee Site: L knee Needle Size: 22 G Approach: Anterolateral Medications: 3 mL lidocaine 20 mg/mL (2 %); 40 mg triamcinolone 40 mg/mL Patient tolerance: Patient tolerated the procedure well with no immediate complications PLAN I explained to Ms. Talley the nature of her condition and treatment options. I provided her with anintra-articular steroid injection under sterile conditions, which she tolerated well. Hopefully this provides her with excellent relief. She is also experiencing symptoms of pes bursitis, but states this does not cause her discomfort very often. She should continue with Tylenol use and activity modification and may return to clinic in 3-4 months as needed. She may contact our office with any additional questions or concerns moving forward. RACHELLE Sparrow Cosigned by Herber Knott MD at 11/04/2021 3:51 PM SUPERVISOR SOUND TECHNICIAN RVISOR SOUND TECHNICIAN RVISOR SOUND TECHNICIAN documented in this encounter Plan of Treatment Not on file documented as of this encounter Procedures Procedure Name Priority Date/Time Associated Diagnosis Comments NM ARTHROCENTESIS ASPIR&/INJ MAJOR JT/BURSA W/O US Routine 10/30/2021 9:00 AM SUPERVISOR SOUND TECHNICIAN Primary osteoarthritis of left knee XR KNEE LEFT 4 OR MORE VIEWS Schedule Routine, Read Routine (OP Routine) 10/30/2021 8:49 AM SUPERVISOR SOUND TECHNICIAN Primary osteoarthritis of left knee documented in this encounter Results * NM ARTHROCENTESIS ASPIR&/INJ MAJOR JT/BURSA W/O US (10/30/2021 9:00 AM SUPERVISOR SOUND TECHNICIAN) Narrative Herber Knott MD - 10/30/2021 9:00 AM SUPERVISOR SOUND TECHNICIAN Victoria Madison PA ? 10/30/2021 ??9:44 AM Large Joint (Hip, Knee, Shoulder) Injection: L knee Performed by: Victoria Madison PA Authorized by: Victoria Madison PA Large Joint Injection/Aspiration: ??Consent Given by: ??Patient ??Site marked: the procedure site was marked ?Timeout: prior to procedure the correct patient, procedure, and site was verified ?Verbal consent obtained: Yes ?? Supporting Documentation: ??Indications: ??Pain Procedure Details: ??Location: ??Knee ??Site: ??L knee ??Needle Size: ??22 G ??Approach: ??Anterolateral ??Medications: ??3 mL lidocaine 20 mg/mL (2 %); 40 mg triamcinolone 40 mg/mL ??Patient tolerance: ??Patient tolerated the procedure well with no immediate complications us Victoria BUSH IN CLINIC/BEDSIDE ORD ERABLES Final Result * XR Knee Left 4 or More Views (10/30/2021 8:49 AM SUPERVISOR SOUND TECHNICIAN) Anatomical Region Laterality Modality Lower Extremities, Knee Left Digital Radiography Narrative 10/30/2021 9:37 AM SUPERVISOR SOUND TECHNICIAN Radiographs taken of the left knee today reveal moderate degenerative changes with subchondral sclerosis, osteophyte formation, and diminished joint space. Victoria BUSH IMG XR PROCEDURES Fin al Result documented in this encounter Visit Diagnoses Diagnosis Primary osteoarthritis of left knee- Primary Pes anserinus bursitis of left knee documented in this encounter Administered Medications Inactive Administered Medications - up to 3 most recent administrations Medication Order MAR Action Action Date Dose Rate Site lidocaine (XYLOCAINE) 20 mg/mL (2 %) injection 3 mL 3 mL, One-Time Injection, Starting on Lisbeth 10/30/21 at 0944, For 1 dose, Indications: Administration of Local AnesthesiaIndications:Administratio n of Local Anesthesia Given 10/30/2021 9:44 AM SUPERVISOR SOUND TECHNICIAN 3 mL triamcinolone (KENALOG) 40 mg/mL injection 40 mg 40 mg, intra-articular, One-Time Injection, Starting on Lisbeth 10/30/21 at 0944, For 1 doseIndications:Primary osteoarthritis of left knee Given 10/30/2021 9:44 AM SUPERVISOR SOUND TECHNICIAN 40 mg documented in this encounter Care Teams Commuter Train Operator Relationship Specialty Start Date End Date Devaughn Macias MD PCP - General Family Medicine 01/31/20 01/13/22 documented as of this encounter
--- OUTSIDE RECORDS SUMMARY | 2024-10-22 00:27 | XMS_ITS | Encounter Summary ---
Author Organization [facility] Address [address] [place] [address] Care Team Providers Care Insulation And Flooring Assembler Name Role Phone Devaughn Macias MD Primary Care Provider Reason for Referral * Diagnostic Imaging (Routine) - Closed Specialty Diagnoses / Procedures Referred By Lyndsey t Referred To Contact Diagnoses Primary osteoarthritis of left hip Procedures FL Fluoro Guided Injection Hip Left Tawny Yung PA Phone: tel: fax: [facility] [address] [place] [address] Referral ID Status Reason Start Date Expiration Date Visits Re quested Visits Authorized [id number] Closed 10/09/2021 11/08/2022 1 1 EPOINT TRAINER Reason for Visit * Reason Comments Pain Encounter Details Date Type Department Care Team (Late st Contact Info) Description 10/09/2021 9:15 AM SHAREPOINT TRAINER Office Visit [facility] Orthopedics and Sports Medicine [address] [place] [address] Tawny Yung PA [address] [address] Primary osteoarthritis of left hip (Primary Dx) Social History Tobacco Use Types Packs/Day Years Used Date Smoking Tobacco: Former Cigarettes Q uit: 09/28/1978 Smokeless Tobacco: Never Alcohol Use Standard Drinks/Week Comments Yes 0 (1 standard drink = 0.6 oz pur e alcohol) Comments Unknown Sex and Gender Information Value Date Recorded Sex Assigned at Not on file Legal Sex Female 8:30 AM SHAREPOINT TRAINER Gender Identity Female 10/06/2021 4:28 PM SHAREPOINT TRAINER Sexual Orientation Choose not to disclose 2020 4:28 PM SHAREPOINT TRAINER documented as of this encounter Last Filed Vital Signs Vital Sign Reading Time Taken Comments Blood Pressure 174/73 10/09/2021 9:11 AM SHAREPOINT TRAINER Pulse 64 10/09/2021 9:11 AM SHAREPOINT TRAINER Temperature - - Respiratory Rate - - Oxygen Saturation - - Inhaled Oxygen Concentration - - Weight 89.2 kg (196 lb 9.6 oz) 10/09/2021 9:11 A M SHAREPOINT TRAINER Height 165.1 cm (5' 5 ) 10/09/2021 9:11 AM SHAREPOINT TRAINER Body Mass Index 32.72 10/09/2021 9:11 AM SHAREPOINT TRAINER documented in this encounter Progress Notes * Tawny Yugn PA - 10/09/2021 9:15 AM CST Images from the original note [...] risks and wished to be seen today. FOLLOW UP VISIT Subjective CHIEF COMPLAINT She had concerns including Pain of the Left Hip. HISTORY OF PRESENT ILLNESS Quin Talley is a pleasant 86 y.o. female who presents today in follow up of her left hip osteoarthritis. She was seen last year, at which time an intraarticular injection was ordered. This was performed on 06/26/2020 and provided excellent relief for over a year. She now states she has groin pain that radiates down into her knee at times. She is not currently taking anything for her discomfort and is unable to tolerate NSAIDs due to being on Coumadin. She has a history A-fib and PAD for which she takes Coumadin. She denies history of stroke, seizures, DVT/PE. Pain Assessment Pain Assessment: 0-10 Pain Score: 5 - Moderate pain PAST MEDCIAL HISTORY She has a past medical history of Gastroesophageal reflux disease, OTHER MEDICAL (2005), and OTHER MEDICAL. PAST SURGICAL HISTORY She has a past surgical history that includes Tonsillectomy and FL Fluoro Guided Injection Hip Left(Left, 06/26/2020). MEDICATIONS She has a current medication list [...] is not hyperactive. Objective PHYSICAL EXAM BP (!) 174/73 Pulse 64 Ht 165.1 cm (5' 5 ) Wt 89.2 kg (196 lb 9.6 oz) BMI 32.72 kg/m?? Left hip Inspection Erythema: absent Edema: [...] (straight leg raise): positive REVIEW OF X-RAYS/STUDIES/LABS Assessment/Plan Quin was seen today for pain. Diagnoses and all orders for this visit: Primary osteoarthritis of left hip PLAN I discussed with Ms. Talley the results of her injection and future treatment options. She has known severe osteoarthritis of her left hip and would benefit from a total hip arthroplasty in the future. She would like to receive an additional injection, which I have ordered for her today. Shall her symptoms in the knee fail to improve, she may return to clinic at any time for evaluation. She is encouraged to contact the office with any further questions or concerns. RACHELLE Mckeon Cosigned by Herber Knott MD at 10/14/2021 3:28 PM SHAREPOINT TRAINER EPOINT TRAINER EPOINT TRAINER documented in this encounter Miscellaneous Notes * Addendum Note - Rito Patel MA - 10/09/2021 9:15 AM CSTAddended by: RITO PATEL on: 10/09/2021 10:51 AM Modules accepted: Orders EPOINT TRAINER documented in this encounter Plan of Treatment Not on file documented as of this encounter Results * FL Fluoro Guided Injection Hip Left (10/23/2021 2:34 PM SHAREPOINT TRAINER) Anatomical Region Laterality Modality Hip Left Radio Fluoroscop y 10/24/2021 6:25 AM SHAREPOINT TRAINER Narrative 10/24/2021 6:27 AM SHAREPOINT TRAINER EXAMINATION: ? Left hip ??joint injection under fluoroscopic guidance HISTORY: Left hip ??osteoarthritis ATTENDING PRESENCE: Dr. Grant Carlos M.D., the attending radiologist, was present from the beginning to the end of the procedure. SEDATION: The patient did not require conscious sedation for the procedure. TECHNIQUE: The risks, benefits and alternatives were discussed and informed consent was obtained. ??Prior to beginning the procedure, universal Protocol was performed to confirm the patient's identity and the planned procedure. Sterile barriers used during the procedure included cap, mask, hand hygiene, sterile gloves, and sterile drape. ??Chloraprep was used for cutaneous antisepsis. The patient was placed supine on the fluoroscopy ??table. ?? The ipsilateral artery was palpated and marked. ??The ??left hip ??joint was localized with fluoroscopic guidance. ??Local anesthesia was achieved with subcutaneous injection of 1% lidocaine 2 mL. ??A 22-gauge needle was then introduced into the joint under fluoroscopic guidance. ??3 mL of a 2:1 mixture of Omnipaque-240 and 1% lidocaine was injected to verify intra-articular position of the needle tip. Subsequently, a 3 mL mixture consisting of Depo-Medrol 80 mg/mL, 1% lidocaine 1 mL, and 1 mL Omnipaque 240 was administered. The needle was removed. The skin was cleansed with hydrogen peroxide, and a bandage was placed. There were no complications of the procedure. ?? ESTIMATED BLOOD LOSS: None CONDITION: Stable condition. DISCHARGED TO: Home FINDINGS: Fluoroscopy time was 22.6 seconds. 3 fluoroscopic images submitted. ?? Fluoroscopic images confirm intra-articular position of the needle tip. ?? IMPRESSION: 1. ?? Left hip ??joint injection under fluoroscopic guidance. ?? THIS IS AN ELECTRONICALLY VERIFIED FINAL REPORT 10/24/2021 6:27 AM - Electronically signed by ??Grant LOPEZ: JOHN D: ??10/24/2021 6:27 AM T: ??10/24/2021 6:27 AM Report ID: [id number] Reading Location: ??[id number] Procedure Note Grant Carlos MD - 10/24/2021 EXAMINATION: Left hip joint injection under fluoroscopic guidance HISTORY: Left hip osteoarthritis ATTENDING PRESENCE: Dr. Grant Carlos M.D., the attendingradiologist, was present from the beginning to the end of the procedure. SEDATION: The patient did not require conscious sedation for theprocedure. TECHNIQUE: The risks, benefits and alternatives were discussed andinformed consent was obtained. Prior to beginning the procedure, universalProtocol was performed to confirm the patient's identity and the plannedprocedure. Sterile barriers used during the procedure included cap, mask, handhygiene, sterile gloves, and sterile drape. Chloraprep was used for cutaneous antisepsis. The patient was placed supine on the fluoroscopy table. The ipsilateral artery was palpated and marked. The left hip joint was localized with fluoroscopic guidance. Local anesthesia was achieved with subcutaneous injection of 1% lidocaine 2 mL. A 22-gauge needle was then introducedinto the joint under fluoroscopic guidance. 3 mL of a 2:1 mixture ofOmnipaque-240 and 1% lidocaine was injected to verify intra-articular position of theneedle tip. Subsequently, a 3 mL mixture consisting of Depo-Medrol 80 mg/mL, 1% lidocaine 1 mL, and 1 mL Omnipaque 240 was administered. The needle was removed. The skin was cleansed with hydrogen peroxide, and a bandage was placed. There were no complications of the procedure. ESTIMATED BLOOD LOSS: None CONDITION: Stable condition. DISCHARGED TO: Home FINDINGS: Fluoroscopy time was 22.6 seconds. 3 fluoroscopic images submitted. Fluoroscopic images confirm intra-articular position of the needle tip. IMPRESSION: 1. Left hip joint injection under fluoroscopic guidance. THIS IS AN ELECTRONICALLY VERIFIED FINAL REPORT 10/24/2021 6:27 AM - Electronically signed by Grant Carlos M.D. MF: [email or web address] Report ID: [id number] Reading Location: [id number] Tawny BUSH IMG FLUOROSCOPY PROCEDURE S Final Result documented in this encounter Visit Diagnoses Diagnosis Primary osteoarthritis of left hip- Primary Primary osteoarthritis of left hip documented in this encounter Care Teams Insulation And Flooring Assembler Relationship Specialty Start Date End Date Devaughn Macias MD PCP - General Family Medicine 01/31/20 01/13/22 documented as of this encounter
--- OUTSIDE RECORDS SUMMARY | 2024-10-22 00:27 | XMS_ITS | Encounter Summary ---
Author Organization [facility] Address [address] [place] [address] Care Team Providers Care Silk Folder Name Role Phone Denis Platt MD Primary Care Provide r Encounter Details Date Type Department Care Team (Late st Contact Info) Description 03/19/2022 Telephone [facility] Orthopedics and Sports Medicine [address], [place] [address] Lilly Moncada MA Social History Tobacco Use Types Packs/Day Years Used Date Smoking Tobacco: Former Cigarettes Q uit: 09/28/1978 Smokeless Tobacco: Never Alcohol Use Standard Drinks/Week Comments Yes 0 (1 standard drink = 0.6 oz pur e alcohol) Comments Unknown Sex and Gender Information Value Date Recorded Sex Assigned at Not on file Legal Sex Female 8:30 AM SCORER HELPER Gender Identity Female 10/06/2021 4:28 PM SCORER HELPER Sexual Orientation Choose not to disclose 2020 4:28 PM SCORER HELPER documented as of this encounter Miscellaneous Notes * Telephone Encounter - Lilly Moncada MA - 03/19/2022 10:57 AM CDT 1. Have you ever had a total joint replacement before? no 2. Have you ever had a problem with anesthesia? no 3. Do you have anyone at home who can care for you? yes 4. Do you have a preference of home health or outpatient therapy for the first two weeks? n/a 5. Lower extremity only Do you own a walker? no 6. What Pharmacy do you prefer - [facility] 7. What outpatient therapy location do you prefer - n/a documented in this encounter Plan of Treatment Not on file documented as of this encounter Visit Diagnoses Not on filedocumented in this encounter Care Teams Silk Folder Relationship Specialty Start Date End Date Denis Platt MD [address] [place] [address] PCP - General Family Medicine 01/14/22 07/18/23 documented as of this encounter
--- OUTSIDE RECORDS SUMMARY | 2024-10-22 00:27 | XMS_ITS | Encounter Summary ---
Author Organization [facility] Address [address] [place] [address] Care Team Providers Care Continuous Miner Operator Name Role Phone Denis Platt MD Primary Care Provide r Encounter Details Date Type Department Care Team (Late st Contact Info) Description 03/25/2022 Telephone [facility] Orthopedics and Sports Medicine [address] [place] [address] Herber Knott MD [address] [place] [address] [address] [place] [address] Social History Tobacco Use Types Packs/Day Years Used Date Smoking Tobacco: Former Cigarettes Q uit: 09/28/1978 Smokeless Tobacco: Never Alcohol Use Standard Drinks/Week Comments Yes 0 (1 standard drink = 0.6 oz pur e alcohol) Comments Unknown Sex and Gender Information Value Date Recorded Sex Assigned at Not on file Legal Sex Female 8:30 AM CALL CENTER TRAINER Gender Identity Female 10/06/2021 4:28 PM CALL CENTER TRAINER Sexual Orientation Choose not to disclose 2020 4:28 PM CALL CENTER TRAINER documented as of this encounter Miscellaneous Notes * Telephone Encounter - Anh Polanco - 03/25/2022 4:28 PM CDT Per Padmini needs written order. This was faxed * Telephone Encounter - Lilly Moncada MA - 03/25/2022 12:14 PM CDT Talked to patient script sent to pharmacy LM for padmini [phone] to let her know repeat urine morning of surgery * Telephone Encounter - Lilly Moncada MA - 03/25/2022 10:41 AM CDT LM for patient to return call * Telephone Encounter - Victoria Madison PA - 03/25/2022 9:36 AM CDT Please reach out to patient to inquire if her PCP has already treated her for this. If not, she will need a prescription for Macrobid. Her urine will need repeated the morning of surgery. * Telephone Encounter - Lilly Moncada MA - 03/25/2022 9:11 AM CDT Please advise * Telephone Encounter - Anh Polanco - 03/25/2022 8:52 AM CDT Padmini at [facility] calling stated patient had a positive urine culture with many bacteria. Please review She is also asking if repeat urine is needed day of surgery documented in this encounter Plan of Treatment Not on file documented as of this encounter Visit Diagnoses Not on filedocumented in this encounter Care Teams Continuous Miner Operator Relationship Specialty Start Date End Date Denis Platt MD [address] [place], [place] [id number] PCP - General Family Medicine 01/14/22 07/18/23 documented as of this encounter
--- OUTSIDE RECORDS SUMMARY | 2024-10-22 00:27 | XMS_ITS | Encounter Summary ---
Author Organization [facility] Address [address] [place] [address] Care Team Providers Care Piece Goods Packer Name Role Phone Denis Platt MD Primary Care Provide r Encounter Details Date Type Department Care Team (Latest Contact Info) Description 03/06/2022 Anticoagulation Visit [facility] Cardiology [address] [place] [address] Rachel Zhao RN Atrial fibrillation, unspecified type (HCC) (Primary Dx); joint terminal attack controller 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 Social History Tobacco Use Types Packs/Day Years Used Date Smoking Tobacco: Former Cigarettes Q uit: 09/28/1978 Smokeless Tobacco: Never Alcohol Use Standard Drinks/Week Comments Yes 0 (1 standard drink = 0.6 oz pur e alcohol) Comments Unknown Sex and Gender Information Value Date Recorded Sex Assigned at Not on file Legal Sex Female 8:30 AM CENTER PUNCH OPERATOR Gender Identity Female 10/06/2021 4:28 PM CENTER PUNCH OPERATOR Sexual Orientation Choose not to disclose 2020 4:28 PM CENTER PUNCH OPERATOR documented as of this encounter Plan of Treatment Not on file documented as of this encounter Procedures Procedure Name Priority Date/Time Associated Diagnosis Comments PROTIME-INR Routine 03/05/2022 documented in this encounter Results * (ABNORMAL) Protime-INR (03/05/2022) INR 2.70(A) 0.9 - 1.1 EXTERNAL LAB Blood specimen (specimen) us Historical Provider LAB BLOOD ORDERABLES Noris mauro Result EXTERNAL LAB documented in this encounter Visit Diagnoses Diagnosis Atrial fibrillation, unspecified type (HCC)- Primary joint terminal attack controller 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 documented in this encounter Care Teams Piece Goods Packer Relationship Specialty Start Date End Date Denis Platt MD [address] [place] [address] PCP - General Family Medicine 01/14/22 07/18/23 documented as of this encounter
--- OUTSIDE RECORDS SUMMARY | 2024-10-22 00:27 | XMS_ITS | Encounter Summary ---
Author Organization [facility] Address [address] [place] [address] Care Team Providers Care Near Eastern Archaeology Lecturer Name Role Phone Devaughn Macias MD Primary Care Provider Denis Platt MD Primary Care Provide r Encounter Details Date Type Department Care Team (Late st Contact Info) Description 04/02/2021 Orders Only [facility] Health Information Management [address] [place] [address] Scanning, Provider Social History Tobacco Use Types Packs/Day Years Used Date Smoking Tobacco: Former Cigarettes Q uit: 09/28/1978 Smokeless Tobacco: Never Alcohol Use Standard Drinks/Week Comments Yes 0 (1 standard drink = 0.6 oz pur e alcohol) Comments Unknown Sex and Gender Information Value Date Recorded Sex Assigned at Not on file Legal Sex Female 8:30 AM 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 WOOD MODEL MAKER Gender Identity Female 10/06/2021 4:28 PM 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 WOOD MODEL MAKER Sexual Orientation Choose not to disclose 2020 4:28 PM 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 WOOD MODEL MAKER documented as of this encounter Plan of Treatment Not on file documented as of this encounter Procedures Procedure Name Priority Date/Time Associated Diagnosis Comments CARDIOLOGY DOCUMENT SCAN 04/02/2021 documented in this encounter Results * SCAN - CARDIOLOGY (04/02/2021) Anatomical Region Laterality Modality Other us Provider Scanning CV CARDIAC SERVICES PROCEDURES Final Result documented in this encounter Visit Diagnoses Not on filedocumented in this encounter Care Teams Near Eastern Archaeology Lecturer Relationship Specialty Start Date End Date Devaughn Macias MD PCP - General Family Medicine 01/31/20 01/13/22 Denis Platt MD [address] [place] [address] PCP - General Family Medicine 01/14/22 07/18/23 documented as of this encounter
--- OUTSIDE RECORDS SUMMARY | 2024-10-22 00:27 | XMS_ITS | Encounter Summary ---
Author Organization [facility] Address [address] [place] [address] Care Team Providers Care Sausage Machine Operator Name Role Phone Denis Platt MD Primary Care Provide r Encounter Details Date Type Department Care Team (Late st Contact Info) Description 01/14/2022 Telephone [facility] Cardiology [address] [place] [address] Andrade Brown MD [facility] [place] [id number] Social History Tobacco Use Types Packs/Day Years Used Date Smoking Tobacco: Former Cigarettes Q uit: 09/28/1978 Smokeless Tobacco: Never Alcohol Use Standard Drinks/Week Comments Yes 0 (1 standard drink = 0.6 oz pur e alcohol) Comments Unknown Sex and Gender Information Value Date Recorded Sex Assigned at Not on file Legal Sex Female 8:30 AM HEEL CUTTER Gender Identity Female 10/06/2021 4:28 PM HEEL CUTTER Sexual Orientation Choose not to disclose 2020 4:28 PM HEEL CUTTER documented as of this encounter Miscellaneous Notes * Telephone Encounter - Rachel Zhao RN - 01/14/2022 12:45 PM CDT Standing INR sent to [facility] as pt requested. documented in this encounter Plan of Treatment Scheduled Orders Name Type Priority Associated Diagnoses Orde r Schedule Protime-INR Lab Routine Paroxysmal 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 (CMS/HCC) (HCC) Anticoagulation management encounter weekly for 52 Occurrences starting 01/14/2022 until 01/14/2023 documented as of this encounter Visit Diagnoses Diagnosis Paroxysmal 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 (CMS/HCC) (HCC)- Primary Atrial fibrillation Anticoagulation management encounter Encounter for therapeutic drug monitoring documented in this encounter Care Teams Sausage Machine Operator Relationship Specialty Start Date End Date Denis Platt MD [address] [place] [address] PCP - General Family Medicine 01/14/22 07/18/23 documented as of this encounter
--- OUTSIDE RECORDS SUMMARY | 2024-10-22 00:27 | XMS_ITS | Encounter Summary ---
Author Organization [facility] Address [address] [place] [address] Care Team Providers Care Medical Collections Specialist Name Role Phone Denis Platt MD Primary Care Provide r Reason for Visit * Diagnostic Imaging (Routine) - Closed Specialty Diagnoses / Procedures Referred By Lyndsey farmer Referred To Contact Diagnoses Left hip pain Procedures XR Hip Left 2 or 3 Views Kami Lyons PA Phone: tel: fax: [facility] Referral ID Status Reason Start Date Expiration Date Visits Re quested Visits Authorized [id number] Closed 02/26/2022 03/28/2023 1 1 Encounter Details Date Type Department Care Team (Latest Contact Info) Description 02/26/2022 8:05 AM CDT - 02/26/2022 11:59 PM CDT Hospital Encounter [facility] Orthopedics and Sports Medicine [address] [place] [address] [address] [address] Discharge Disposition: Discharge to home [...] on file Legal Sex Female 8:30 AM PRINTING ENGINEER Gender Identity Female 10/06/2021 4:28 PM PRINTING ENGINEER Sexual Orientation Choose not to disclose 2020 4:28 PM PRINTING ENGINEER documented as of this encounter Medications at Time of Discharge hydroCHLOROthiazi de (HYDRODIURIL) 25 mg tablet Take 1 tablet (25 mg total) by mouth daily 90 tablet 2 10/20/2021 07/08/2023 losartan (COZAAR) 100 mg tablet Take 1 tablet (100 mg total) by mouth daily 90 tablet 2 01/08/2022 12/11/2022 warfarin (COUMADIN) 4 mg tablet Take one and one-half tablets by mouth every Wednesday, , and one tablet all other days of the week. 90 tablet 01/08/2022 03/23/2022 documented as of this encounter Discharge Disposition Disposition Code Departure Means Destination Discharge to home or self care documented in this encounter Plan of Treatment Not on file documented as of this encounter Procedures Procedure Name Priority Date/Time Associated Diagnosis Comments XR HIP LEFT 2 OR 3 VIEWS Schedule Routine, Read Routine (OP Routine) 02/26/2022 2:59 PM CDT Left hip pain documented in this encounter Results * XR Hip Left 2 or 3 Views (02/26/2022 2:59 PM CDT) Anatomical Region Laterality Modality Lower Extremities, Hip, Pelvis Left D igital Radiography Narrative 02/26/2022 3:20 PM CDT AP pelvis and false profile radiographs taken of the left hip today reveal severe degenerative changes with subchondral sclerosis, osteophyte formation, and bone on bone contact. Kami BUSH IMBen XR PROCEDURES F inal Result documented in this encounter Visit Diagnoses Not on filedocumented in this encounter Care Teams Medical Collections Specialist Relationship Specialty Start Date End Date Denis Platt MD [address] [place] [address] PCP - General Family Medicine 01/14/22 07/18/23 documented as of this encounter
--- OUTSIDE RECORDS SUMMARY | 2024-10-22 00:27 | XMS_ITS | Encounter Summary ---
Author Organization [facility] Address [address] [facility] [address] [place] [address] Care Team Providers Care Cotton Baler Name Role Phone Denis Platt MD Primary Care Provide r Reason for Visit * Reason Comments Atrial Fibrillation Peripheral Artery Disease Hypertension Aortic Stenosis 5 mo f/u Encounter Details Date Type Department Care Team (Latest Contact Info) Description 01/14/2022 11:30 AM CDT Office Visit [facility] Cardiology [address] [facility] [address] [place] [address] Andrade Brown MD [facility] [address] Non-rheumatic aortic stenosis (Primary Dx); snf 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; 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 goal <100; Essential hypertension Social History Tobacco Use Types Packs/Day Years Used Date Smoking Tobacco: Former Cigarettes Q uit: 09/28/1978 Smokeless Tobacco: Never Alcohol Use Standard Drinks/Week Comments Yes 0 (1 standard drink = 0.6 oz pur e alcohol) Comments Unknown Sex and Gender Information Value Date Recorded Sex Assigned at Not on file Legal Sex Female 8:30 AM RISK MANAGEMENT SPECIALIST Gender Identity Female 10/06/2021 4:28 PM RISK MANAGEMENT SPECIALIST Sexual Orientation Choose not to disclose 2020 4:28 PM RISK MANAGEMENT SPECIALIST documented as of this encounter Last Filed Vital Signs Vital Sign Reading Time Taken Comments Blood Pressure 160/64 01/14/2022 11:41 AM CDT Pulse 79 01/14/2022 11:41 AM CDT Temperature - - Respiratory Rate - - Oxygen Saturation 99% 01/14/2022 11:41 AM CDT Inhaled Oxygen Concentration - - Weight 84.8 kg (187 lb) 01/14/2022 11:41 AM CDT Height 165.1 cm (5' 5 ) 01/14/2022 11:41 AM CDT Body Mass Index 31.12 01/14/2022 11:41 AM CDT documented in this encounter Progress Notes * Andrade Brown MD - 01/14/2022 11:30 AM CDT Images from the original note were not included. [facility] DATE OF VISIT: 01/14/2022 CHIEF COMPLAINT Chief Complaint Patient presents with ??? Atrial Fibrillation ??? Peripheral Artery Disease ??? Hypertension ??? Aortic Stenosis 5 mo f/u HPI Quin Camacho Mayank is a 86 y.o. female with atrial [...] couple months. Surgical date is not scheduled. MEDICAL HISTORY Past Medical History: Diagnosis Date ??? Gastroesophageal reflux disease GERD ??? HX OTHER MEDICAL 2006 PAD - non-occl. femoral sclerosis ??? HX OTHER MEDICAL R. knee torn cartlage ??? Hypertension Social History Tobacco Use ??? Smoking status: Former Smoker Types: Cigarettes Quit date: 09/28/1978 Years since quittin.3 ??? Smokeless tobacco: Never Used Substance Use Topics ??? Alcohol use: Yes ??? Drug use: No Family History Problem Relation Age of Onset ??? Heart attack Father Myocardial infarction; ??? Cancer Father ??? Hearing loss Father ??? Unexplained Mother natural causes MEDICATIONS Medication List Accurate as of January 14, 2022 12:09 PM. If you have any questions, ask your nurse or doctor. CONTINUE taking these medications hydroCHLOROthiazide 25 mg tablet Commonly known as: HYDRODIURIL Take 1 tablet (25 mg total) by mouth daily losartan 100 mg tablet Commonly known as: COZAAR Take 1 tablet (100 mg total) by mouth daily warfarin 4 mg tablet Commonly known as: COUMADIN Take one and one-half tablets by mouth every Wednesday, , and one tablet all other days of theweek. ALLERGIES No Known Allergies REVIEW OF SYSTEMS [...] for environmental allergies. PHYSICAL EXAM Blood pressure 160/64, pulse 79, height 165.1 cm (5' 5 ), weight 84.8 kg (187 lb), SpO2 99 %. Body mass index is 31.12 kg/m??. Physical Exam HENT: Head: Normocephalic and [...] 10/2021: Less than 50% bilateral carotid disease ASSESSMENT Diagnoses and all orders for this visit: 1. Hyperlipidemia, unspecified hyperlipidemia type (Primary) Off statin because of her rash 2. Paroxysmal 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 (CMS/HCC) Status post PVI ablation x2 with recent success 3. 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 [Z79.01] No bleeding problems 4. PAD (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/HCC) Mild femoral disease 5. 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 goal <100 6. HTN (hypertension), benign At goal 7.. Mild carotid artery disease 8. Non-rheumatic aortic stenosis Mild: Asymptomatic PLAN/RECOMMENDATIONS EKG today because of her 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 history Standing order for INR to be sent to [place] She will likely need a stress test prior to hip surgery. I do not reliably think that she can perform greater than 4 Mets without stopping because of hip pain. She also does not have a normal EKG. Lexiscan to be performed prior to surgery. This will not be ordered yet though until a more firm surgical date is scheduled She is otherwise stable. I recommend continue her current cardiac regimen without change including warfarin and I will see her back in 6 months or sooner as clinically indicated. Low-salt diet Andrade Brown MD, [facility] documented in this encounter Miscellaneous Notes * Addendum Note - Austin Ross MA - 01/14/2022 11:30 AM CDTAddended by: AUSTIN ROSS on: 01/14/2022 02:44 PM Modules accepted: Orders documented in this encounter Plan of Treatment Not on file documented as of this encounter Procedures Procedure Name Priority Date/Time Associated Diagnosis Comments ECG 12-LEAD Routine 01/14/2022 Non-rheumatic aortic stenosis Essential hypertension documented in this encounter Results * ECG 12 lead (01/14/2022) us Andrade Brown MD ECG ORDERABLES Final Res ult documented in this encounter Visit Diagnoses Diagnosis Non-rheumatic aortic stenosis- Primary snf 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 goal <100 Other and unspecified hyperlipidemia Essential hypertension Unspecified essential hypertension documented in this encounter Care Teams Cotton Baler Relationship Specialty Start Date End Date Denis Platt MD [address] [place], [place] [id number] PCP - General Family Medicine 01/14/22 07/18/23 documented as of this encounter
--- OUTSIDE RECORDS SUMMARY | 2024-10-22 00:27 | XMS_ITS | Encounter Summary ---
Author Organization [facility] Address [address] [place] [address] Care Team Providers Care Md Psychiatry Name Role Phone Denis Platt MD Primary Care Provide r Encounter Details Date Type Department Care Team (Late st Contact Info) Description 04/14/2022 Telephone [facility] Orthopedics and Sports Medicine [address] [facility] [address] [place] [address] Herber Knott MD [address] [place] [address] [address] [place] [address] Social History Tobacco Use Types Packs/Day Years Used Date Smoking Tobacco: Former Cigarettes Q uit: 09/28/1978 Smokeless Tobacco: Never Alcohol Use Standard Drinks/Week Comments Yes 0 (1 standard drink = 0.6 oz pur e alcohol) Comments Unknown Sex and Gender Information Value Date Recorded Sex Assigned at Not on file Legal Sex Female 8:30 AM PUBLISHING MANAGER Gender Identity Female 10/06/2021 4:28 PM PUBLISHING MANAGER Sexual Orientation Choose not to disclose 2020 4:28 PM PUBLISHING MANAGER documented as of this encounter Miscellaneous Notes * Telephone Encounter - Stephanie Saldaña - 04/14/2022 10:48 AM CDT Padmini with [facility] called stating they still need the op note documented. documented in this encounter Plan of Treatment Not on file documented as of this encounter Visit Diagnoses Not on filedocumented in this encounter Care Teams Md Psychiatry Relationship Specialty Start Date End Date Denis Platt MD [address] [place] [address] PCP - General Family Medicine 01/14/22 07/18/23 documented as of this encounter
--- OUTSIDE RECORDS SUMMARY | 2024-10-22 00:27 | XMS_ITS | Encounter Summary ---
Author Organization [facility] Healthcare Address [address] [place] [address] Care Team Providers Care Cook Restaurant Name Role Phone Devaughn Macias MD Primary Care Provider Denis Platt MD Primary Care Provide r Gideon Campbell MD Primary Care Provider [phone] Encounter Details Date Type Department Care Team (Late st Contact Info) Description 10/15/2021 Telephone [facility] [address] [place] [address] Katie Hendrix, DORINDA Social History Tobacco Use Types Packs/Day Years Used Date Smoking Tobacco: Former Cigarettes Q uit: 09/28/1978 Smokeless Tobacco: Never Alcohol Use Standard Drinks/Week Comments Yes 0 (1 standard drink = 0.6 oz pur e alcohol) Comments Unknown Sex and Gender Information Value Date Recorded Sex Assigned at Not on file Legal Sex Female 8:30 AM REGULATION SUPERVISOR Gender Identity Female 10/06/2021 4:28 PM REGULATION SUPERVISOR Sexual Orientation Choose not to disclose 2020 4:28 PM REGULATION SUPERVISOR documented as of this encounter Plan of Treatment Not on file documented as of this encounter Visit Diagnoses Not on filedocumented in this encounter Care Teams Cook Restaurant Relationship Specialty Start Date End Date Devaughn Macias MD PCP - General Family Medicine 01/31/20 01/13/22 Denis Platt MD [address] [place] [address] PCP - General Family Medicine 01/14/22 07/18/23 Gideon Campbell MD [address] [facility] [address] [address] PCP - General Family Medicine 07/19/23 documented as of this encounter
--- OUTSIDE RECORDS SUMMARY | 2024-10-22 00:27 | XMS_ITS | Encounter Summary ---
Author Organization [facility] Address [address] [place] [address] Care Team Providers Care Psychology Lecturer Name Role Phone Devaughn Macias MD Primary Care Provider Reason for Visit * Reason Comments Peripheral Artery Disease Atrial Fibrillation 6 mo f/u Encounter Details Date Type Department Care Team (Latest Contact Info) Description 08/20/2021 9:45 AM INSPECTOR PACKER GLASS CONTAINER Office Visit [facility] Cardiology [address] [facility] [address] [place] [address] Andrade Brown MD [address] [address] Non-rheumatic aortic stenosis (Primary Dx); HTN (hypertension), benign; PAD (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) ([facility]/HCC) (HCC); 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; 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 goal <100; Left carotid bruit Social History Tobacco Use Types Packs/Day Years Used Date Smoking Tobacco: Former Cigarettes Q uit: 09/28/1978 Smokeless Tobacco: Never Alcohol Use Standard Drinks/Week Comments Yes 0 (1 standard drink = 0.6 oz pur e alcohol) Comments Unknown Sex and Gender Information Value Date Recorded Sex Assigned at Not on file Legal Sex Female 8:30 AM INSPECTOR PACKER GLASS CONTAINER Gender Identity Female 10/06/2021 4:28 PM INSPECTOR PACKER GLASS CONTAINER Sexual Orientation Choose not to disclose 2020 4:28 PM INSPECTOR PACKER GLASS CONTAINER documented as of this encounter Last Filed Vital Signs Vital Sign Reading Time Taken Comments Blood Pressure 112/62 08/20/2021 9:38 AM INSPECTOR PACKER GLASS CONTAINER Pulse 60 08/20/2021 9:38 AM INSPECTOR PACKER GLASS CONTAINER Temperature - - Respiratory Rate - - Oxygen Saturation 98% 08/20/2021 9:38 AM INSPECTOR PACKER GLASS CONTAINER Inhaled Oxygen Concentration - - Weight 87.1 kg (192 lb) 08/20/2021 9:38 AM INSPECTOR PACKER GLASS CONTAINER Height 165.1 cm (5' 5 ) 08/20/2021 9:38 AM INSPECTOR PACKER GLASS CONTAINER Body Mass Index 31.95 08/20/2021 9:38 AM INSPECTOR PACKER GLASS CONTAINER documented in this encounter Progress Notes * Andrade Brown MD - 08/20/2021 9:45 AM CST [facility] DATE OF VISIT: 08/20/2021 CHIEF COMPLAINT Chief Complaint Patient presents with ??? Peripheral Artery Disease ??? Atrial Fibrillation 6 mo f/u HPI Quin Talley is a 86 y.o. [...] orthopnea, edema or palpitations. No bleeding problems MEDICAL HISTORY Past Medical History: Diagnosis Date ??? Gastroesophageal reflux disease GERD ??? HX OTHER MEDICAL 2006 PAD - non-occl. femoral sclerosis ??? HX OTHER MEDICAL R. knee torn cartlage Social History Tobacco Use ??? Smoking status: Former Smoker Types: Cigarettes Quit date: 09/28/1978 Years since quittin.9 ??? Smokeless tobacco: Never Used Substance Use Topics ??? Alcohol use: Yes ??? Drug use: No Family History Problem Relation Age of Onset ??? Heart attack Father Myocardial infarction; ??? Cancer Father ??? Unexplained Mother natural causes MEDICATIONS ALLERGIES No Known Allergies REVIEW OF SYSTEMS [...] for environmental allergies. PHYSICAL EXAM Blood pressure 112/62, pulse 60, height 165.1 cm (5' 5 ), weight 87.1 kg (192 lb), SpO2 98 %. Body mass index is 31.95 kg/m??. Physical Exam HENT: Head: Normocephalic and [...] TRIG No results found for: CHOLHDL EKG Echo 04/02/2021 Normal left ventricular systolic [...] regurgitation. Normal sinus rhythm. Carotid artery Dopplers December 2017: Less than 50% bilateral carotid disease ASSESSMENT Diagnoses and all orders for this visit: 1. Hyperlipidemia, unspecified hyperlipidemia type (Primary) Off statin because of her rash 2. Paroxysmal 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 (CMS/HCC) Status post PVI ablation x2 with recent success 3. 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 PAD (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/HCC) Mild femoral disease 5. 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 goal <100 6. HTN (hypertension), benign At goal 7.. Mild carotid artery disease 8. Non-rheumatic aortic stenosis Mild: Asymptomatic 9. Left carotid bruit Seems more prominent PLAN/RECOMMENDATIONS Bilateral carotid artery ultrasound because of her bruit and known mild carotid disease. She is otherwise stable. I recommend continue her current cardiac regimen without change including warfarin and I will see her back in 5- 6 months or sooner as clinically indicated. 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
--- OUTSIDE RECORDS SUMMARY | 2024-10-22 00:27 | XMS_ITS | Encounter Summary ---
Author Organization [facility] Address [address] [place] [address] Care Team Providers Care Elevator Starter Name Role Phone Devaughn Macias MD Primary Care Provider Encounter Details Date Type Department Care Team (Latest Contact Info) Description 07/16/2021 Anticoagulation Visit [facility] Cardiology [address] [place] [address] Rachel Zhao RN Atrial fibrillation, unspecified type (HCC) (Primary Dx); longterm 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 Social History Tobacco Use Types Packs/Day Years Used Date Smoking Tobacco: Former Cigarettes Q uit: 09/28/1978 Smokeless Tobacco: Never Alcohol Use Standard Drinks/Week Comments Yes 0 (1 standard drink = 0.6 oz pur e alcohol) Comments Unknown Sex and Gender Information Value Date Recorded Sex Assigned at Not on file Legal Sex Female 8:30 AM RACEBOOK WRITER Gender Identity Female 10/06/2021 4:28 PM RACEBOOK WRITER Sexual Orientation Choose not to disclose 2020 4:28 PM RACEBOOK WRITER documented as of this encounter Plan [...] Diagnosis Atrial fibrillation, unspecified type (HCC)- Primary longterm 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 documented in this encounter Care Teams Elevator Starter Relationship Specialty Start Date End Date Devaughn Macias MD PCP - General Family Medicine 01/31/20 01/13/22 documented as of this encounter
--- OUTSIDE RECORDS SUMMARY | 2024-10-22 00:27 | XMS_ITS | Encounter Summary ---
Author Organization [facility] Address [address] [place] [address] Care Team Providers Care Cloud Architect Name Role Phone Denis Platt MD Primary Care Provide r Encounter Details Date Type Department Care Team (Late st Contact Info) Description 03/25/2022 Orders Only [facility] Orthopedics and Sports Medicine [address] [facility] [address] [place] [address] Herber Knott MD [address] [place] [address] [address] [place], [place] [id number] Primary osteoarthritis of left hip (Primary Dx); [...] on file Legal Sex Female 8:30 AM PARKING TECHNICIAN Gender Identity Female 10/06/2021 4:28 PM PARKING TECHNICIAN Sexual Orientation Choose not to disclose 2020 4:28 PM PARKING TECHNICIAN documented as of this encounter Plan of Treatment Scheduled Orders Name Type Priority Associated Diagnoses Orde r Schedule Urinalysis reflex to microscopic and culture Urine Microbiology Routine Primary osteoarthritis of left hip Pre-operative exam Expected: 03/25/2022, Expires: 03/25/2023 documented as of this encounter Visit Diagnoses Diagnosis Primary osteoarthritis of left hip- Primary Pre-operative exam Unspecified pre-operative examination documented in this encounter Care Teams Cloud Architect Relationship Specialty Start Date End Date Denis Platt MD [address] [place] [address] PCP - General Family Medicine 01/14/22 07/18/23 documented as of this encounter
--- OUTSIDE RECORDS SUMMARY | 2024-10-22 00:27 | XMS_ITS | Encounter Summary ---
Author Organization [facility] Address [address] [place] [address] Care Team Providers Care Patch Finisher Name Role Phone Devaughn Macias MD Primary Care Provider Encounter Details Date Type Department Care Team (Latest Contact Info) Description 10/01/2021 Anticoagulation Visit [facility] Cardiology [address] [place] [address] Rosy White RN Atrial fibrillation, unspecified type (HCC) (Primary Dx); care home 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 Social History Tobacco Use Types Packs/Day Years Used Date Smoking Tobacco: Former Cigarettes Q uit: 09/28/1978 Smokeless Tobacco: Never Alcohol Use Standard Drinks/Week Comments Yes 0 (1 standard drink = 0.6 oz pur e alcohol) Comments Unknown Sex and Gender Information Value Date Recorded Sex Assigned at Not on file Legal Sex Female 8:30 AM FORESTRY SUPPORT SPECIALIST Gender Identity Female 10/06/2021 4:28 PM FORESTRY SUPPORT SPECIALIST Sexual Orientation Choose not to disclose 2020 4:28 PM FORESTRY SUPPORT SPECIALIST documented as of this encounter Plan of Treatment Not on file documented as of this encounter Procedures Procedure Name Priority Date/Time Associated Diagnosis Comments PROTIME-INR Routine 10/01/2021 documented in this encounter Results * (ABNORMAL) Protime-INR (10/01/2021) INR 3.40(A) 0.9 - 1.1 EXTERNAL LAB Blood specimen (specimen) us Historical Provider LAB BLOOD ORDERABLES Noris mauro Result EXTERNAL LAB documented in this encounter Visit Diagnoses Diagnosis Atrial fibrillation, unspecified type (HCC)- Primary care home 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 documented in this encounter Care Teams Patch Finisher Relationship Specialty Start Date End Date Devaughn Macias MD PCP - General Family Medicine 01/31/20 01/13/22 documented as of this encounter
--- OUTSIDE RECORDS SUMMARY | 2024-10-22 00:27 | XMS_ITS | Encounter Summary ---
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 Social History Tobacco Use Types Packs/Day Years Used Date Smoking Tobacco: Former Cigarettes Q uit: 09/28/1978 Smokeless Tobacco: Never Alcohol Use Standard Drinks/Week Comments Yes 0 (1 standard drink = 0.6 oz pur e alcohol) Comments Unknown Sex and Gender Information Value Date Recorded Sex Assigned at Not on file Legal Sex Female 8:30 AM SWEATBAND SHAPER Gender Identity Female 10/06/2021 4:28 PM SWEATBAND SHAPER Sexual Orientation Choose not to disclose 2020 4:28 PM SWEATBAND SHAPER documented as of this encounter Plan of Treatment Not on file documented as of this encounter Procedures Procedure Name Priority Date/Time Associated Diagnosis Comments PROTIME-INR Routine 02/19/2022 documented in this encounter Results * (ABNORMAL) Protime-INR (02/19/2022) INR 4.70(A) 0.9 - 1.1 EXTERNAL LAB Blood specimen (specimen) us Historical Provider LAB BLOOD ORDERABLES Noris mauro Result EXTERNAL LAB documented in this encounter Visit Diagnoses Diagnosis Atrial fibrillation, unspecified type (HCC)- Primary intermediate 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 documented in this encounter Care Teams Sleeve Baster Relationship Specialty Start Date End Date Denis Platt MD [address] [place] [address] PCP - General Family Medicine 01/14/22 07/18/23 documented as of this encounter
--- OUTSIDE RECORDS SUMMARY | 2024-10-22 00:27 | XMS_ITS | Encounter Summary ---
Author Organization [facility] Healthcare Address [address] [place] [address] Care Team Providers Care Moving Worker Name Role Phone Devaughn Macias MD Primary Care Provider Encounter Details Date Type Department Care Team (Late st Contact Info) Description 10/20/2021 Telephone [facility] [address] [place] [address] Katie Hendrix RN Social History Tobacco Use Types Packs/Day Years Used Date Smoking Tobacco: Former Cigarettes Q uit: 09/28/1978 Smokeless Tobacco: Never Alcohol Use Standard Drinks/Week Comments Yes 0 (1 standard drink = 0.6 oz pur e alcohol) Comments Unknown Sex and Gender Information Value Date Recorded Sex Assigned at Not on file Legal Sex Female 8:30 AM TRUCK CRANE OPERATOR HELPER Gender Identity Female 10/06/2021 4:28 PM TRUCK CRANE OPERATOR HELPER Sexual Orientation Choose not to disclose 2020 4:28 PM TRUCK CRANE OPERATOR HELPER documented as of this encounter Miscellaneous Notes * Telephone Encounter - Katie Hendrix RN - 10/20/2021 11:07 AM TRUCK CRANE OPERATOR HELPER Patient called to let IR know that she was instructed to hold blood thinners for hip injection on 10/23/21. K CRANE OPERATOR HELPER documented in this encounter Plan of Treatment Not on file documented as of this encounter Visit Diagnoses Not on filedocumented in this encounter Care Teams Moving Worker Relationship Specialty Start Date End Date Devaughn Macias MD PCP - General Family Medicine 01/31/20 01/13/22 documented as of this encounter
--- OUTSIDE RECORDS SUMMARY | 2024-10-22 00:27 | XMS_ITS | Encounter Summary ---
Author Organization [facility] Address [address] [place] [address] Care Team Providers Care Emc Storage Architect Name Role Phone Devaughn Macias MD Primary Care Provider Encounter Details Date Type Department Care Team (Late st Contact Info) Description 08/20/2021 Orders Only [facility] Cardiology [address] [place] [id number] ProviderPeggy MD [address] [place], [place] [id number] Social History Tobacco Use Types Packs/Day Years Used Date Smoking Tobacco: Former Cigarettes Q uit: 09/28/1978 Smokeless Tobacco: Never Alcohol Use Standard Drinks/Week Comments Yes 0 (1 standard drink = 0.6 oz pur e alcohol) Comments Unknown Sex and Gender Information Value Date Recorded Sex Assigned at Not on file Legal Sex Female 8:30 AM MACHINE PAINT MIXER Gender Identity Female 10/06/2021 4:28 PM MACHINE PAINT MIXER Sexual Orientation Choose not to disclose 2020 4:28 PM MACHINE PAINT MIXER documented as of this encounter Plan of Treatment Not on file documented as of this encounter Procedures Procedure Name Priority Date/Time Associated Diagnosis Comments CARDIOLOGY DOCUMENT SCAN Routine 08/20/2021 documented in this encounter Results * SCAN - CARDIOLOGY (08/20/2021) Anatomical Region Laterality Modality Other Historical Provider CV CARDIAC SERVICES FRANCISCO J PRUETT Final Result documented in this encounter Visit Diagnoses Not on filedocumented in this encounter Care Teams Emc Storage Architect Relationship Specialty Start Date End Date Devaughn Macias MD PCP - General Family Medicine 01/31/20 01/13/22 documented as of this encounter
--- OUTSIDE RECORDS SUMMARY | 2024-10-22 00:27 | XMS_ITS | Encounter Summary ---
Author Organization [facility] Address [address] [place] [address] Care Team Providers Care Reporting Coordinator Name Role Phone Denis Platt MD Primary Care Provide r Encounter Details Date Type Department Care Team (Late st Contact Info) Description 03/27/2022 Documentation [facility] Orthopedics and Sports Medicine [address] [place] [address] [address] [place] [phone] Lilly Moncada MA Social History Tobacco Use Types Packs/Day Years Used Date Smoking Tobacco: Former Cigarettes Q uit: 09/28/1978 Smokeless Tobacco: Never Alcohol Use Standard Drinks/Week Comments Yes 0 (1 standard drink = 0.6 oz pur e alcohol) Comments Unknown Sex and Gender Information Value Date Recorded Sex Assigned at Not on file Legal Sex Female 8:30 AM MANAGER CASH Gender Identity Female 10/06/2021 4:28 PM MANAGER CASH Sexual Orientation Choose not to disclose 2020 4:28 PM MANAGER CASH documented as of this encounter Progress Notes * Lilly Moncada MA - 03/27/2022 10:24 AM CDT Patient is cleared for LTHA on 04/07/[address] Platt and Dr. Brown documented in this encounter Plan of Treatment Not on file documented as of this encounter Visit Diagnoses Not on filedocumented in this encounter Care Teams Reporting Coordinator Relationship Specialty Start Date End Date Denis Platt MD [address] [place] [address] PCP - General Family Medicine 01/14/22 07/18/23 documented as of this encounter
--- OUTSIDE RECORDS SUMMARY | 2024-10-22 00:27 | XMS_ITS | Encounter Summary ---
Author Organization [facility] Address [address] [place] [address] Care Team Providers Care Dry Pan Operator Name Role Phone Devaughn Macias MD Primary Care Provider Encounter Details Date Type Department Care Team (Late st Contact Info) Description 10/16/2021 Telephone [facility] Cardiology [address] [facility] [address] [address] [facility] [address] [place] [address] Andrade Brown MD [facility] [place] [id number] Social History Tobacco Use Types Packs/Day Years Used Date Smoking Tobacco: Former Cigarettes Q uit: 09/28/1978 Smokeless Tobacco: Never Alcohol Use Standard Drinks/Week Comments Yes 0 (1 standard drink = 0.6 oz pur e alcohol) Comments Unknown Sex and Gender Information Value Date Recorded Sex Assigned at Not on file Legal Sex Female 8:30 AM SMOKEHOUSE WORKER Gender Identity Female 10/06/2021 4:28 PM SMOKEHOUSE WORKER Sexual Orientation Choose not to disclose 2020 4:28 PM SMOKEHOUSE WORKER documented as of this encounter Miscellaneous Notes * Telephone Encounter - Rosy White RN - 10/16/2021 1:32 PM CST No significant carotid disease bilateral. Spoke w/ pt and reviewed results above per MAF. Pt verbalized understanding. KK/VW EHOUSE WORKER documented in this encounter Plan of Treatment Not on file documented as of this encounter Visit Diagnoses Not on filedocumented in this encounter Care Teams Dry Pan Operator Relationship Specialty Start Date End Date Devaughn Macias MD PCP - General Family Medicine 01/31/20 01/13/22 documented as of this encounter
--- OUTSIDE RECORDS SUMMARY | 2024-10-22 00:27 | XMS_ITS | Encounter Summary ---
Author Organization [facility] Address [address] [place] [address] Care Team Providers Care General Warehouse Worker Name Role Phone Denis Platt MD Primary Care Provide r Reason for Referral * Diagnostic Imaging (Routine) - Closed Specialty Diagnoses / Procedures Referred By Lyndsey farmer Referred To Contact Diagnoses Left hip pain Procedures XR Hip Left 2 or 3 Views Kami Lyons PA Phone: tel: fax: [facility] Referral ID Status Reason Start Date Expiration Date Visits Re quested Visits Authorized [id number] Closed 02/26/2022 03/28/2023 1 1 Reason for Visit * Reason Comments Pain Encounter Details Date Type Department Care Team (Late st Contact Info) Description 02/26/2022 3:15 PM CDT Office Visit [facility] Orthopedics and Sports Medicine [address] [place] [address] [address], [place] [address] [place] [address] [place] [address] Left hip pain (Primary Dx); Primary osteoarthritis of left hip Social History Tobacco Use Types Packs/Day Years Used Date Smoking Tobacco: Former Cigarettes Q uit: 09/28/1978 Smokeless Tobacco: Never Alcohol Use Standard Drinks/Week Comments Yes 0 (1 standard drink = 0.6 oz pur e alcohol) Comments Unknown Sex and Gender Information Value Date Recorded Sex Assigned at Not on file Legal Sex Female 8:30 AM ENVIRONMENTAL COORDINATOR Gender Identity Female 10/06/2021 4:28 PM ENVIRONMENTAL COORDINATOR Sexual Orientation Choose not to disclose 2020 4:28 PM ENVIRONMENTAL COORDINATOR documented as of this encounter Last Filed Vital Signs Vital Sign Reading Time Taken Comments Blood Pressure 144/70 02/26/2022 3:01 PM CDT Pulse 73 02/26/2022 3:01 PM CDT Temperature - - Respiratory Rate - - Oxygen Saturation - - Inhaled Oxygen Concentration - - Weight 82 kg (180 lb 12.8 oz) 02/26/2022 3:01 PM CDT Height 162.6 cm (5' 4 ) 02/26/2022 3:01 PM CDT Body Mass Index 31.03 02/26/2022 3:01 PM CDT documented in this encounter Progress Notes * Kami Lyons PA - 02/26/2022 3:15 PM CDT Images from the original note were not included. FOLLOW UP VISIT Subjective CHIEF COMPLAINT She had concerns including Pain of the Left Hip. HISTORY OF PRESENT ILLNESS Quin Talley is a pleasant 86 y.o. female who presents today for follow up of her left hip osteoarthritis. She was last seen on 10/09/21, at which time she preferred to continue with conservative management. Her last fluoro guided injection was on 10/23/21 which provided her with 1 week of relief. She reports continued groin pain with radiation down to her knee. Her pain is worse with activity and better with rest. She is ready to pursue surgery as she has failed conservative management. She is on Coumadin due to a-fib. She denies history of DM, DVT/PE. BMI is 31. She lives alone but will have family available to help her after surgery. MEDICATIONS She has a current medication list [...] is not hyperactive. Objective PHYSICAL EXAM BP 144/70 Pulse 73 Ht 162.6 cm (5' 4 ) Wt 82 kg (180 lb 12.8 oz) BMI 31.03 kg/m?? Left hip Inspection Erythema: absent Edema: [...] (straight leg raise): positive REVIEW OF X-RAYS/STUDIES/LABS AP pelvis and false profile radiographs taken of the left hip today reveal severe degenerative changes with subchondral sclerosis, osteophyte formation, and bone on bone contact. Assessment/Plan Quin was seen today for pain. Diagnoses and all orders for this visit: Left hip pain - Cancel: XR Spine Lumbar 2 or 3 Views - XR Hip Left 2 or 3 Views PLAN I discussed with Ms Talley her condition and treatment options. She continues to have pain and decrease in quality of life due to her severe osteoarthritis of her left hip. She has failed conservative management, including activity modification, antiinflammatories, and steroid injection. She would like to pursue total hip arthroplasty, therefore, I will refer the patient to Dr. Knott for surgical evaluation. She will pick a date today. She should call the office should She have any concerns or questions. RACHELLE Sullivan Cosigned by Herber Knott MD at 02/26/2022 6:27 PM CDT documented in this encounter Plan [...] and bone on bone contact. Kami BUSH IMG XR PROCEDURES F inal Result documented in this encounter Visit Diagnoses Diagnosis Left hip pain- Primary Pain in joint, pelvic region and thigh Primary osteoarthritis of left hip documented in this encounter Care Teams General Warehouse Worker Relationship Specialty Start Date End Date Denis Platt MD [address] [place] [address] PCP - General Family Medicine 01/14/22 07/18/23 documented as of this encounter
--- OUTSIDE RECORDS SUMMARY | 2024-10-22 00:27 | XMS_ITS | Encounter Summary ---
Author Organization [facility] Address [address] [place] [address] Care Team Providers Care Airplane Cleaner Name Role Phone Devaughn Macias MD Primary Care Provider Encounter Details Date Type Department Care Team (Latest Contact Info) Description 08/28/2021 Anticoagulation Visit [facility] Cardiology [address] [place] [address] Jacque Hitchcock RN Atrial fibrillation, unspecified type (HCC) (Primary Dx); snf 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 Social History Tobacco Use Types Packs/Day Years Used Date Smoking Tobacco: Former Cigarettes Q uit: 09/28/1978 Smokeless Tobacco: Never Alcohol Use Standard Drinks/Week Comments Yes 0 (1 standard drink = 0.6 oz pur e alcohol) Comments Unknown Sex and Gender Information Value Date Recorded Sex Assigned at Not on file Legal Sex Female 8:30 AM CORPORATE TRAINER Gender Identity Female 10/06/2021 4:28 PM CORPORATE TRAINER Sexual Orientation Choose not to disclose 2020 4:28 PM CORPORATE TRAINER documented as of this encounter Plan of Treatment Not on file documented as of this encounter Procedures Procedure Name Priority Date/Time Associated Diagnosis Comments PROTIME-INR Routine 08/28/2021 documented in this encounter Results * (ABNORMAL) Protime-INR (08/28/2021) INR 2.40(A) 0.9 - 1.1 EXTERNAL LAB Blood specimen (specimen) us Historical Provider LAB BLOOD ORDERABLES Noris mauro Result EXTERNAL LAB documented in this encounter Visit Diagnoses Diagnosis Atrial fibrillation, unspecified type (HCC)- Primary snf 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 documented in this encounter Care Teams Airplane Cleaner Relationship Specialty Start Date End Date Devaughn Macias MD PCP - General Family Medicine 01/31/20 01/13/22 documented as of this encounter
--- OUTSIDE RECORDS SUMMARY | 2024-10-22 00:27 | XMS_ITS | Encounter Summary ---
Author Organization formerly [facility] Address [address] [place] [address] Care Team Providers Care Adapted Physical Education Specialist Name Role Phone Devaughn Macias MD Primary Care Provider Reason for Referral * Diagnostic Imaging (Routine) - Closed Specialty Diagnoses / Procedures Referred By Contac t Referred To Contact Diagnoses Primary osteoarthritis of left hip Procedures FL Fluoro Guided Injection Hip Left Tawny Yung PA Phone: tel: fax: [address] [phone] Referral ID Status Reason Start Date Expiration Date Visits Re quested Visits Authorized [id number] Closed 10/09/2021 11/08/2022 1 1 DESIGNER Reason for Visit * Diagnostic Imaging (Routine) - Closed Specialty Diagnoses / Procedures Referred By Lyndsey farmer Referred To Contact Diagnoses Primary osteoarthritis of left hip Procedures FL Fluoro Guided Injection Hip Left Tawny Yung PA Phone: tel: fax: [address] [phone] Referral ID Status Reason Start Date Expiration Date Visits Re quested Visits Authorized [id number] Closed 10/09/2021 11/08/2022 1 1 Encounter Details Date Type Department Care Team (Latest Contact Info) Description 10/23/2021 1:58 PM PCB DESIGNER - 10/23/2021 11:59 PM PCB DESIGNER Hospital Encounter [facility] [address] [place] [address] Tawny Yung, RACHELLE [address] [place] [address] Rad, Amh Breast Primary osteoarthritis of left hip Discharge Disposition: Discharge to home or self care Social History Tobacco Use Types Packs/Day Years Used Date Smoking Tobacco: Former Cigarettes Q uit: 09/28/1978 Smokeless Tobacco: Never Alcohol Use Standard Drinks/Week Comments Yes 0 (1 standard drink = 0.6 oz pur e alcohol) Comments Unknown Sex and Gender Information Value Date Recorded Sex Assigned at Not on file Legal Sex Female 8:30 AM PCB DESIGNER Gender Identity Female 10/06/2021 4:28 PM PCB DESIGNER Sexual Orientation Choose not to disclose 2020 4:28 PM PCB DESIGNER documented as of this encounter Medications at [...] or self care documented in this encounter Miscellaneous Notes * Post-Procedure Note - Grant Carlos MD - 10/23/2021 2:15 PM PCB DESIGNER Radiology Brief Post Procedure Note Attending: Dr. Grant Carlos Sedation/Anesthesia: Local Pre-procedure Diagnosis: Left hip OA Post-procedure Diagnosis: Same Procedure Performed: FL FLUORO GUIDED INJECTION HIP LEFT Procedure Findings: Successful Complications: None Estimated Blood Loss: None Specimens: None Condition: Stable Full report to follow. DESIGNER documented in this encounter Plan of Treatment Not on file documented as of this encounter Procedures Procedure Name Priority Date/Time Associated Diagnosis Comments FL FLUORO GUIDED INJECTION HIP LEFT Schedule Routine, Read Routine (OP Routine) 10/23/2021 2:34 PM PCB DESIGNER Primary osteoarthritis of left hip documented in this encounter Results * FL Fluoro Guided Injection Hip Left (10/23/2021 2:34 PM PCB DESIGNER) Anatomical Region Laterality Modality Hip Left Radio Fluoroscop y 10/24/2021 6:25 AM PCB DESIGNER Narrative 10/24/2021 6:27 AM PCB DESIGNER EXAMINATION: ? Left hip ??joint injection under [...] 6:27 AM - Electronically signed by ??Grant Carlos M.D. MF: JOHN D: ??10/24/2021 6:27 AM T: ??10/24/2021 6:27 AM Report ID: [id number] Reading Location: ??[id number] Procedure Note Grant Carlos MD - 10/24/2021 [...] Grant Carlos M.D. MF: JOHN Report ID: [id number] Reading Location: [place] [address] Tawny BUSH IMG FLUOROSCOPY PROCEDURE S Final Result documented in this encounter Visit Diagnoses Diagnosis Primary osteoarthritis of left hip documented in this encounter Administered Medications Inactive Administered Medications - up to 3 most recent administrations Medication Order MAR Action Action Date Dose Rate Site iohexoL (OMNIPAQUE) 240 mg iodine/mL injection solution 10 mL 10 mL, intra-articular, Once in imaging, contrast, Starting on Lisbeth 10/23/21 at 1404, For 1 dose Contrast Given 10/23/2021 2:17 PM PCB DESIGNER 1 mL lidocaine PF (XYLOCAINE) 10 mg/mL (1 %) preservative free injection 50 mg 50 mg (5 mL), other, Once, On Lisbeth 10/23/21 at 1445, For 1 dose Given 10/23/2021 2:18 PM PCB DESIGNER 5 mL methylPREDNISolone acetate (DEPO-medrol) injection 80 mg 80 mg, intra-articular, Once, On Lisbeth 10/23/21 at 1445, For 1 dose Given 10/23/2021 2:18 PM PCB DESIGNER 80 mg documented in this encounter Care Teams Adapted Physical Education Specialist Relationship Specialty Start Date End Date Devaughn Mcaias MD PCP - General Family Medicine 01/31/20 01/13/22 documented as of this encounter
--- OUTSIDE RECORDS SUMMARY | 2024-10-22 00:27 | XMS_ITS | Encounter Summary ---
Author Organization [facility] Address [address] [place] [address] Care Team Providers Care Landscape Architect Name Role Phone Devaughn Macias MD Primary Care Provider Denis Platt MD Primary Care Provide r Gideon Campbell MD Primary Care Provider [phone] Encounter Details Date Type Department Care Team (Late st Contact Info) Description 10/17/2021 Telephone [facility] [address] [place] [address] Katie Hendrix, DORINDA Social History Tobacco Use Types Packs/Day Years Used Date Smoking Tobacco: Former Cigarettes Q uit: 09/28/1978 Smokeless Tobacco: Never Alcohol Use Standard Drinks/Week Comments Yes 0 (1 standard drink = 0.6 oz pur e alcohol) Comments Unknown Sex and Gender Information Value Date Recorded Sex Assigned at Not on file Legal Sex Female 8:30 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 AND COMMUNICATIONS OFFICER Gender Identity Female 10/06/2021 4:28 PM MARKETING AND COMMUNICATIONS OFFICER Sexual Orientation Choose not to disclose 2020 4:28 PM MARKETING AND COMMUNICATIONS OFFICER documented as of this encounter Plan of Treatment Not on file documented as of this encounter Visit Diagnoses Not on filedocumented in this encounter Care Teams Landscape Architect Relationship Specialty Start Date End Date Devaughn Macias MD PCP - General Family Medicine 01/31/20 01/13/22 Denis Platt MD [address] [place] [address] PCP - General Family Medicine 01/14/22 07/18/23 Gideon Campbell MD [address] [facility] [address] [address] PCP - General Family Medicine 07/19/23 documented as of this encounter
--- OUTSIDE RECORDS SUMMARY | 2024-10-22 00:27 | XMS_ITS | Encounter Summary ---
Author Organization [facility] Address [address] [place] [address] Care Team Providers Care Aluminum Container Tester Name Role Phone Devaughn Macias MD Primary Care Provider Encounter Details Date Type Department Care Team (Latest Contact Info) Description 06/05/2021 Anticoagulation Visit [facility] Cardiology [address] [place] [address] Jesica Estrada RN Atrial fibrillation, unspecified type (HCC) (Primary Dx); nursing home 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 Social History Tobacco Use Types Packs/Day Years Used Date Smoking Tobacco: Former Cigarettes Q uit: 09/28/1978 Smokeless Tobacco: Never Alcohol Use Standard Drinks/Week Comments Yes 0 (1 standard drink = 0.6 oz pur e alcohol) Comments Unknown Sex and Gender Information Value Date Recorded Sex Assigned at Not on file Legal Sex Female 8:30 AM CITY DETECTIVE Gender Identity Female 10/06/2021 4:28 PM CITY DETECTIVE Sexual Orientation Choose not to disclose 2020 4:28 PM CITY DETECTIVE documented as of this encounter Plan of Treatment Not on file documented as of this encounter Procedures Procedure Name Priority Date/Time Associated Diagnosis Comments PROTIME-INR Routine 06/05/2021 documented in this encounter Results * (ABNORMAL) Protime-INR (06/05/2021) INR 2.20(A) 0.9 - 1.1 EXTERNAL LAB Blood specimen (specimen) us Historical Provider LAB BLOOD ORDERABLES Noris mauro Result EXTERNAL LAB documented in this encounter Visit Diagnoses Diagnosis Atrial fibrillation, unspecified type (HCC)- Primary inspector clip on sunglasses 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 documented in this encounter Care Teams Aluminum Container Tester Relationship Specialty Start Date End Date Devaughn Macias MD PCP - General Family Medicine 01/31/20 01/13/22 documented as of this encounter
--- OUTSIDE RECORDS SUMMARY | 2024-10-22 00:27 | XMS_ITS | Encounter Summary ---
Author Organization [facility] Address [address] [place] [address] Care Team Providers Care Distribution Sales Representative Name Role Phone Devaughn Macias MD Primary Care Provider Encounter Details Date Type Department Care Team (Latest Contact Info) Description 12/03/2021 Anticoagulation Visit [facility] Cardiology [address] [place] [address] Jacque Hitchcock RN Atrial fibrillation, unspecified type (HCC) (Primary Dx); senior care 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 Social History Tobacco Use Types Packs/Day Years Used Date Smoking Tobacco: Former Cigarettes Q uit: 09/28/1978 Smokeless Tobacco: Never Alcohol Use Standard Drinks/Week Comments Yes 0 (1 standard drink = 0.6 oz pur e alcohol) Comments Unknown Sex and Gender Information Value Date Recorded Sex Assigned at Not on file Legal Sex Female 8:30 AM MONOGRAM MAKER Gender Identity Female 10/06/2021 4:28 PM MONOGRAM MAKER Sexual Orientation Choose not to disclose 2020 4:28 PM MONOGRAM MAKER documented as of this encounter Plan of Treatment Not on file documented as of this encounter Procedures Procedure Name Priority Date/Time Associated Diagnosis Comments PROTIME-INR Routine 12/03/2021 documented in this encounter Results * (ABNORMAL) Protime-INR (12/03/2021) INR 3.30(A) 0.9 - 1.1 EXTERNAL LAB Blood specimen (specimen) us Historical Provider LAB BLOOD ORDERABLES Noris mauro Result EXTERNAL LAB documented in this encounter Visit Diagnoses Diagnosis Atrial fibrillation, unspecified type (HCC)- Primary senior care 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 documented in this encounter Care Teams Distribution Sales Representative Relationship Specialty Start Date End Date Devaughn Macias MD PCP - General Family Medicine 01/31/20 01/13/22 documented as of this encounter
--- OUTSIDE RECORDS SUMMARY | 2024-10-22 00:27 | XMS_ITS | Encounter Summary ---
Author Organization [facility] Address [address] [place] [address] Care Team Providers Care Lieutenant Firefighter Name Role Phone Denis Platt MD Primary Care Provide r Reason for Referral * Diagnostic Imaging (Routine) - Closed Specialty Diagnoses / Procedures Referred By Lyndsey farmer Referred To Contact Diagnoses Preoperative clearance Paroxysmal 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 (CMS/HCC) (HCC) Essential hypertension PAD (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) (HCC) 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 goal <100 Procedures NM MPI SPECT (Rest and/or Stress) Multiple Studies Ciarra Fitzpatrick MD [address] [place] [address] Phone: tel: fax: [facility] Referral ID Status Reason Start Date Expiration Date Visits Re quested Visits Authorized [id number] Closed 02/18/2022 03/20/2023 1 1 Encounter Details Date Type Department Care Team (Late Contact Info) Description 02/17/2022 Telephone [facility] Cardiology [address] [facility] [address] [place] [address] Ciarra Fitzpatrick MD [address] [place] [address] Social History Tobacco Use Types Packs/Day Years Used Date Smoking Tobacco: Former Cigarettes Q uit: 09/28/1978 Smokeless Tobacco: Never Alcohol Use Standard Drinks/Week Comments Yes 0 (1 standard drink = 0.6 oz pur e alcohol) Comments Unknown Sex and Gender Information Value Date Recorded Sex Assigned at Not on file Legal Sex Female 8:30 AM STAINED GLASS ARTIST Gender Identity Female 10/06/2021 4:28 PM STAINED GLASS ARTIST Sexual Orientation Choose not to disclose 2020 4:28 PM STAINED GLASS ARTIST documented as of this encounter Miscellaneous Notes * Telephone Encounter - Rachel Zhao RN - 02/18/2022 11:01 AM CDT Called pt and scheduled stress test-reviewed instructions with her and she verbalized understanding. * Telephone Encounter - Rachel Zhao RN - 02/18/2022 10:54 AM CDT Ordered stress test. * Telephone Encounter - Ciarra Fitzpatrick MD - 02/18/2022 10:40 AM CDT Proceed in order a Lexiscan stress test for ischemic evaluation with diagnosis preop. Inability to exercise because of hip pain * Telephone Encounter - Rachel Zhao RN - 02/17/2022 2:15 PM CDT Will forward to [facility]. Please advise, thank you! * Telephone Encounter - Elif Christina - 02/17/2022 1:52 PM CDT Pt states [facility] recommends pt gets a stress test done prior to surgery. Pt states she has an appointment on 02/25 to set a date for surgery but pt is wanting to get the stress test done sooner rather than later. There is no order placed for a stress test. Please place stress test order to assist in scheduling. Thank you. Contact: documented in this encounter Plan of Treatment Not on file documented as of this encounter Results * NM MPI SPECT (Rest and/or Stress) Multiple Studies (02/26/2022 12:07 PM CDT) Anatomical Region Laterality Modality Body N/A Nuclear Medicine 02/26/2022 9:55 AM CDT Narrative 02/26/2022 1:09 PM CDT [facility] Cardiology [address] [facility] [address], [place] [address] [address] [facility] [address], [place] [address] P:[phone] P:[phone] MPI Imaging Report Patient Name: QUIN HUERTADoug : 1935 Study Date: 02/26/2022 9:55:19 AM Gender: F Tech: [facility] Location: [place] Ref.Provider: CIARRA FITZPATRICK Height(Cm): 165.1 BSA: Weight(Kg): 84.8 BMI: 31.11Order Provider: CIARRA FITZPATRICK - Physician: Referring Physician: Dr. Platt. HCG Physician: Adalberto Fitzpatrick M.D. Interpreting Physician: Adalberto Fitzpatrick M.D. Stress Supervision: Adalberto Fitzpatrick M.D. Procedures: Myocardial perfusion imaging with Tc99M Sestamibi SPECT at rest and stress post regadenoson (Lexiscan) infusion. Indications: Paroxysmal Atrial Fibrillation, Hypertension. PAD, Pre-Op Clearance, Family Hx CAD, High Cholesterol, and Former Smoker. Findings: Procedural Findings: One day rest/stress was used. Tc99m Sestamibi injected IV at rest was 10.4 millicuries. 33.0 millicuries of Tc99M Sestamibi injected IV during Lexiscan stress. Lexiscan 0.4mg administered IV over 10 seconds. Patient had no symptoms during stress test. Baseline heart rate was 60 BPM. Maximum Heart Rate Achieved was: 93 BPM. Baseline blood pressure was 142/78 mmHg. Post Stress Blood Pressure was 144/78 mmHg. Termination: Protocol complete. Resting ECG: Cannot r/o anterior infarct - age uncertain. RBBB, LAFB. Post ECG: No diagnostic ST changes. Perfusion Findings: Normal perfusion imaging. No definite fixed or reversible defects. Technical quality of study is excellent. Prone imaging was not performed. Left ventricle cavity size at rest is normal. Left ventricle cavity size with stress is unchanged. A TID of 0.75 was automatically calculated. LV Function: There is hyperdynamic global left ventricular systolic function. Left ventricular ejection fraction is 76 %. Conclusions: There is hyperdynamic global left ventricular systolic function. Left ventricular ejection fraction is 76 %. Myocardial perfusion imaging is normal. Negative EKG portion of stress test. Electronically Signed By: Ciarra Fitzpatrick MD 2022-02-26 13:09:00 CDT Electronically Signed By: Ciarra Fitzpatrick MD 2022-02-26 13:09:00 CDT CC: CC: Procedure Note Ciarra Fitzpatrick MD - 02/26/2022 [facility] Cardiology [address] [facility] [address] [address] [address] [facility] [address], [place] [address] P:[phone] P:[phone] MPI Imaging Report Patient Name: QUIN HUERTA Rickey ID: [id number] : [id number] Date: 02/26/2022 9:55:19 AM Gender: FAccession #: [id number] Tech: [facility], MTLocation: [place] Ref.Provider: Shanell FITZPATRICKight(Cm): 165.1 BSA: Weight(Kg): 84.8 BMI: 31.11Order Provider: CIARRA FITZPATRICK - Physician: Referring Physician: Dr. Platt. HCG Physician: Adalberto Fitzpatrick M.D.Interpreting Physician: Adalberto Fitzpatrick M.D. Stress Supervision: Adalberto Kevin, M.D. Procedures: Myocardial perfusion imaging with Tc99M Sestamibi SPECT at rest and stresspost regadenoson (Lexiscan) infusion. Indications: Paroxysmal Atrial Fibrillation, Hypertension. PAD, Pre-Op Clearance,Family Hx CAD, High Cholesterol, and Former Smoker. Findings: Procedural Findings: One day rest/stress was used. Tc99m Sestamibi injected IV at rest was 10.4millicuries. 33.0 millicuries of Tc99M Sestamibi injected IV during Lexiscan stress.Lexiscan 0.4mg administered IV over 10 seconds. Patient had no symptoms during stresstest. Baseline heart rate was 60 BPM. Maximum Heart Rate Achieved was: 93 BPM. Baselineblood pressure was 142/78 mmHg. Post Stress Blood Pressure was 144/78 mmHg. Termination: Protocol complete. Resting ECG: Cannot r/o anterior infarct - age uncertain. RBBB, LAFB. Post ECG: No diagnostic ST changes. Perfusion Findings: Normal perfusion imaging. No definite fixed or reversible defects.Technical quality of study is excellent. Prone imaging was not performed. Left ventricle cavitysize at rest is normal. Left ventricle cavity size with stress is unchanged. A TID of0.75 was automatically calculated. LV Function: There is hyperdynamic global left ventricular systolic function. Leftventricular ejection fraction is 76 %. Conclusions: There is hyperdynamic global left ventricular systolic function. Leftventricular ejection fraction is 76 %. Myocardial perfusion imaging is normal. Negative EKG portion of stress test. Electronically Signed By: Ciarra Fitzpatrick MD 2022-02-26 13:09:00 CDT Electronically Signed By: Ciarra Fitzpatrick MD 2022-02-26 13:09:00 CDT CC: CC: us Ciarra Fitzpatrick MD IMG NM PROCEDURES Final R esult documented in this encounter Visit Diagnoses Diagnosis Preoperative clearance- Primary Unspecified pre-operative examination Paroxysmal 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 (CMS/HCC) (HCC) Atrial fibrillation Essential hypertension Unspecified essential hypertension PAD (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) (HCC) Unspecified peripheral vascular disease 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 goal <100 Other and unspecified hyperlipidemia Preoperative clearance Unspecified pre-operative examination Paroxysmal 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 (CMS/HCC) (HCC) Atrial fibrillation Essential hypertension Unspecified essential hypertension PAD (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) (HCC) Unspecified peripheral vascular disease 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 goal <100 Other and unspecified hyperlipidemia documented in this encounter Care Teams Lieutenant Firefighter Relationship Specialty Start Date End Date Denis Platt MD [address] [place], [place] [id number] PCP - General Family Medicine 01/14/22 07/18/23 documented as of this encounter
--- OUTSIDE RECORDS SUMMARY | 2024-10-22 00:27 | XMS_ITS | Encounter Summary ---
Author Organization [facility] Address [address] [place] [address] Care Team Providers Care High Pressure Boiler Operator Name Role Phone Denis Platt MD Primary Care Provide r Reason for Visit * Diagnostic Imaging (Routine) - Closed Specialty Diagnoses / Procedures Referred By Lyndsey farmer Referred To Contact Diagnoses Preoperative clearance Paroxysmal 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 (CMS/HCC) (HCC) Essential hypertension PAD (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) (HCC) 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 goal <100 Procedures NM MPI SPECT (Rest and/or Stress) Multiple Studies Andrade Fitzpatrick MD [facility] [address] Phone: tel: fax: [facility] Referral ID Status Reason Start Date Expiration Date Visits Re quested Visits Authorized [id number] Closed 02/18/2022 03/20/2023 1 1 Encounter Details Date Type Department Care Team (Latest Contact Info) Description 02/26/2022 10:15 AM CDT Ancillary Procedure [facility] Cardiology [address] [facility] [address] [place] [address] Preoperative clearance; Paroxysmal 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 (CMS/HCC) (HCC); Essential hypertension; PAD (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/HCC) (HCC); 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 goal <100 Social History Tobacco Use Types Packs/Day Years Used Date Smoking Tobacco: Former Cigarettes Q uit: 09/28/1978 Smokeless Tobacco: Never Alcohol Use Standard Drinks/Week Comments Yes 0 (1 standard drink = 0.6 oz pur e alcohol) Comments Unknown Sex and Gender Information Value Date Recorded Sex Assigned at Not on file Legal Sex Female 8:30 AM MOLDING MACHINE OPERATOR HELPER Gender Identity Female 10/06/2021 4:28 PM MOLDING MACHINE OPERATOR HELPER Sexual Orientation Choose not to disclose 2020 4:28 PM MOLDING MACHINE OPERATOR HELPER documented as of this encounter Plan of Treatment Not on file documented as of this encounter Procedures Procedure Name Priority Date/Time Associated Diagnosis Comments NM MPI SPECT (REST AND/OR STRESS) MULTIPLE STUDIES Schedule Routine, Read Routine (OP Routine) 02/26/2022 12:07 PM CDT Preoperative clearance Paroxysmal 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 (CMS/HCC) (HCC) Essential hypertension PAD (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/HCC) (HCC) 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 goal <100 documented in this encounter Results * NM MPI SPECT (Rest and/or Stress) Multiple Studies (02/26/2022 12:07 PM CDT) Anatomical Region Laterality Modality Body N/A Nuclear Medicine 02/26/2022 9:55 AM CDT Narrative 02/26/2022 1:09 PM CDT [facility] Cardiology [address] [facility] [address], [place] [address] [place] [address] [address] [id number] P:[phone] P:[phone] MPI Imaging Report Patient Name: QUIN HUERTADoug : [birth year] Study Date: 02/26/2022 9:55:19 AM Gender: F Tech: [facility] Location: [place] Ref.Provider: ANDRADE FITZPATRICK Height(Cm): 165.1 BSA: Weight(Kg): 84.8 BMI: 31.11Order Provider: ANDRADE FITZPATRICK - Physician: Referring Physician: Dr. Platt. [...] portion of stress test. Electronically Signed By: Andrade Fitzpatrick MD 2022-02-26 13:09:00 CDT Electronically Signed By: Andrade Fitzpatrick MD 2022-02-26 13:09:00 CDT CC: CC: Procedure Note Andrade Fitzpatrick MD - 02/26/2022 [facility] Cardiology [address] [facility] [address], [place] [address] [address], [place] [address] P:[phone] P:[phone] MPI Imaging Report Patient Name: QUIN HUERTA Nydiant ID: [id number] : [id number] Date: 02/26/2022 9:55:19 AM Gender: FAccession #: [id number] Tech: LE, CNMTLocation: [place] Ref.Provider: Shanell FITZPATRICKight(Cm): 165.1 BSA: Weight(Kg): 84.8 BMI: 31.11Order Provider: ANDRADE FITZPATRICK - Physician: Referring Physician: Dr. Platt. [...] portion of stress test. Electronically Signed By: Andrade Fitzpatrick MD 2022-02-26 13:09:00 CDT Electronically Signed By: Andrade Fitzpatrick MD 2022-02-26 13:09:00 CDT CC: CC: us Andrade Fitzpatrick MD IMG NM PROCEDURES Final R esult documented in this encounter Visit Diagnoses Diagnosis Preoperative clearance Unspecified pre-operative examination Paroxysmal 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 (CMS/HCC) (HCC) Atrial fibrillation Essential hypertension Unspecified essential hypertension PAD (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) (HCC) Unspecified peripheral vascular disease 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 goal <100 Other and unspecified hyperlipidemia documented in this encounter Administered Medications Inactive Administered Medications - up to 3 most recent administrations Medication Order MAR Action Action Date Dose Rate Site regadenoson (LEXISCAN) 0.4 mg/5 mL injection 0.4 mg 0.4 mg, intravenous, Once, On Lisbeth 02/26/22 at 1245, For 1 dose, Administer IV push over 10 seconds., Indications: Myocardial Perfusion Imaging AdjunctIndications:Myocard ial Perfusion Imaging Adjunct Given 02/26/2022 12:08 PM CDT 0.4 mg tc-99m sestamibi unit dose injection 10.4 millicurie 10.4 millicurie, intravenous, Once in imaging, radiopharmaceutical, Starting on Lisbeth 02/26/22 at 1008, For 1 dose, Indications: Diagnostic RadiographyIndications:Chelsea gnostic Radiography Given 02/26/2022 10:09 AM CDT 10.4 millicuries tc-99m sestamibi unit dose injection 33 millicurie 33 millicurie, intravenous, Once in imaging, radiopharmaceutical, Starting on Lisbeth 02/26/22 at 1207, For 1 dose, Indications: Diagnostic RadiographyIndications:Chelsea gnostic Radiography Given 02/26/2022 12:09 PM CDT 33 millicuries documented in this encounter Care Teams High Pressure Boiler Operator Relationship Specialty Start Date End Date Denis Platt MD [address] [place] [address] PCP - General Family Medicine 01/14/22 07/18/23 documented as of this encounter
--- OUTSIDE RECORDS SUMMARY | 2024-10-22 00:27 | XMS_ITS | Encounter Summary ---
Author Organization [facility] Address [address] [facility] [address] [place] [address] Care Team Providers Care Ferry Pilot Name Role Phone Denis Platt MD Primary Care Provide r Encounter Details Date Type Department Care Team (Late st Contact Info) Description 01/15/2022 Telephone [facility] Orthopedics and Sports Medicine [address] [facility] [address] [place] [address] Herber Knott MD [address] [place] [address] [address] [place] [address] Social History Tobacco Use Types Packs/Day Years Used Date Smoking Tobacco: Former Cigarettes Q uit: 09/28/1978 Smokeless Tobacco: Never Alcohol Use Standard Drinks/Week Comments Yes 0 (1 standard drink = 0.6 oz pur e alcohol) Comments Unknown Sex and Gender Information Value Date Recorded Sex Assigned at Not on file Legal Sex Female 8:30 AM TOWER SUPERVISOR Gender Identity Female 10/06/2021 4:28 PM TOWER SUPERVISOR Sexual Orientation Choose not to disclose 2020 4:28 PM TOWER SUPERVISOR documented as of this encounter Miscellaneous Notes * Telephone Encounter - Delfina Lugo - 01/15/2022 3:53 PM CDT Pt called wanting to be next or Wednesday by one of Dr Knott's PA S to schedule surgery andwhen I told her I couldn't get her in til at least March and Tawny was no longer with us she saiddwaynecarie would see Victoria instead, I told her I have 1115 am or 230 pm on March 06 with Victoria and she said that she cant do this right now and hung up. documented in this encounter Plan of Treatment Not on file documented as of this encounter Visit Diagnoses Not on filedocumented in this encounter Care Teams Ferry Pilot Relationship Specialty Start Date End Date Denis Platt MD [address] [place] [address] PCP - General Family Medicine 01/14/22 07/18/23 documented as of this encounter
--- OUTSIDE RECORDS SUMMARY | 2024-10-22 00:27 | XMS_ITS | Encounter Summary ---
Author Organization [facility] Address [address] [place] [address] Care Team Providers Care Recruitment And Outreach Assistant Name Role Phone Denis Platt MD Primary Care Provide r Encounter Details Date Type Department Care Team (Late st Contact Info) Description 04/08/2022 Telephone [facility] Orthopedics and Sports Medicine [address] [facility] [address] [address] Tiana Beltran MA Social History Tobacco Use Types Packs/Day Years Used Date Smoking Tobacco: Former Cigarettes Q uit: 09/28/1978 Smokeless Tobacco: Never Alcohol Use Standard Drinks/Week Comments Yes 0 (1 standard drink = 0.6 oz pur e alcohol) Comments Unknown Sex and Gender Information Value Date Recorded Sex Assigned at Not on file Legal Sex Female 8:30 AM PLUG GROWER Gender Identity Female 10/06/2021 4:28 PM PLUG GROWER Sexual Orientation Choose not to disclose 2020 4:28 PM PLUG GROWER documented as of this encounter Miscellaneous Notes * Telephone Encounter - Tiana Beltran MA - 04/09/2022 8:27 AM CDT Called patient to see how she is doing today. She states she is doing well, she urinated quite a bit when she got home and was able to relax. She slept well last night, having minimal pain today, having her first cup of coffee and she will call if she needs anything. Thank you * Telephone Encounter - Tiana Beltran MA - 04/08/2022 4:57 PM CDT Patient had surgery on 04/07/22 DEED[place], Mellissa(nurse) called from [facility] stating the patient had not urinated since surgery and she was scanned, noting 400 cc's urine. I instructed Dr. Knott and his team were in surgery and would try to get a verbal and call back. [phone] I could not reach Dr. Knott or his team as they were in surgery all day. I called Mellissa back at [facility], she stated the patient was adamant about going home, was released and she stated she does this, she will go to the bathroom when she gets home. Mellissa instructed patient to go to ER if she does notand symptoms worsen. Patient told Mellissa, per Mellissa, she understood and would call clinic if any further issues. Thank you documented in this encounter Plan of Treatment Not on file documented as of this encounter Visit Diagnoses Not on filedocumented in this encounter Care Teams Recruitment And Outreach Assistant Relationship Specialty Start Date End Date Denis Platt MD [address] [place] [address] PCP - General Family Medicine 01/14/22 07/18/23 documented as of this encounter
--- OUTSIDE RECORDS SUMMARY | 2024-10-22 00:27 | XMS_ITS | Encounter Summary ---
Author Organization [facility] Address [address] [facility] [address] [place] [address] Care Team Providers Care Machine Worker Name Role Phone Devaughn Macias MD Primary Care Provider Encounter Details Date Type Department Care Team (Latest Contact Info) Description 01/08/2022 Anticoagulation Visit [facility] Cardiology [address] [place] [address] Jacque Hitchcock RN Atrial fibrillation, unspecified type (HCC) (Primary Dx); [facility] 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 Social History Tobacco Use Types Packs/Day Years Used Date Smoking Tobacco: Former Cigarettes Q uit: 09/28/1978 Smokeless Tobacco: Never Alcohol Use Standard Drinks/Week Comments Yes 0 (1 standard drink = 0.6 oz pur e alcohol) Comments Unknown Sex and Gender Information Value Date Recorded Sex Assigned at Not on file Legal Sex Female 8:30 AM WATER PURIFIER OPERATOR Gender Identity Female 10/06/2021 4:28 PM WATER PURIFIER OPERATOR Sexual Orientation Choose not to disclose 2020 4:28 PM WATER PURIFIER OPERATOR documented as of this encounter Plan of Treatment Not on file documented as of this encounter Procedures Procedure Name Priority Date/Time Associated Diagnosis Comments PROTIME-INR Routine 01/08/2022 documented in this encounter Results * (ABNORMAL) Protime-INR (01/08/2022) INR 2.20(A) 0.9 - 1.1 EXTERNAL LAB Blood specimen (specimen) us Historical Provider LAB BLOOD ORDERABLES Noris mauro Result EXTERNAL LAB documented in this encounter Visit Diagnoses Diagnosis Atrial fibrillation, unspecified type (HCC)- Primary [facility] 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 documented in this encounter Care Teams Machine Worker Relationship Specialty Start Date End Date Devaughn Macias MD PCP - General Family Medicine 01/31/20 01/13/22 documented as of this encounter
--- OUTSIDE RECORDS SUMMARY | 2024-10-22 00:28 | XMS_ITS | Encounter Summary ---
Author Organization [facility] Address [address] [place] [address] Care Team Providers Care Supervisor Phosphatic Fertilizer Name Role Phone Devaughn Macias MD Primary Care Provider Encounter Details Date Type Department Care Team (Late st Contact Info) Description 06/19/2020 Telephone [facility] Orthopedics and Sports Medicine [address] [facility] [address], [place] [address] [place] [address] [place] [address] Social History Tobacco Use Types Packs/Day Years Used Date Smoking Tobacco: Former Cigarettes Q uit: 09/28/1978 Smokeless Tobacco: Never Alcohol Use Standard Drinks/Week Comments Yes 0 (1 standard drink = 0.6 oz pur e alcohol) Comments Unknown Sex and Gender Information Value Date Recorded Sex Assigned at Not on file Legal Sex Female 8:30 AM CUT AND COVER LINE WORKER Gender Identity Female 10/06/2021 4:28 PM CUT AND COVER LINE WORKER Sexual Orientation Choose not to disclose 2020 4:28 PM CUT AND COVER LINE WORKER documented as of this encounter Miscellaneous Notes * Telephone Encounter - Lilly Moncada MA - 06/19/2020 1:32 PM CDT Noted * Telephone Encounter - Andrade Brown MD - 06/19/2020 1:18 PM CDT Okay to hold for 4 days prior then resume on day of injection * Telephone Encounter - Lilly Moncada MA - 06/19/2020 8:32 AM CDT Is it ok for this patient to hold her blood thinner 3-5 days prior to having fluoro guided hip injection? * Telephone Encounter - Tennille Roy - 06/19/2020 8:24 AM CDT Jadgish with [facility] called over here, she wants to let us know they are rescheduling this patient's fluoro guided injection scheduled for today, patient was not aware that she needed to stop taking her blood thinners as she took some yesterday. Jagdish states this has been the 3rd or 4th time this has happened with patients now and she just wants us to let the patients know this when scheduling . documented in this encounter Plan of Treatment Not on file documented as of this encounter Visit Diagnoses Not on filedocumented in this encounter Care Teams Supervisor Phosphatic Fertilizer Relationship Specialty Start Date End Date Devaughn Macias MD PCP - General Family Medicine 01/31/20 01/13/22 documented as of this encounter
--- OUTSIDE RECORDS SUMMARY | 2024-10-22 00:28 | XMS_ITS | Encounter Summary ---
Author Organization [facility] Address [address] [place] [address] Care Team Providers Care Launch Engineer Name Role Phone Devaughn Macias MD Primary Care Provider Encounter Details Date Type Department Care Team (Latest Contact Info) Description 02/05/2021 Anticoagulation Visit [facility] Cardiology [address] [place] [address] Rachel Zhao RN Atrial fibrillation, unspecified type (CMS/HCC); detention 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 Social History Tobacco Use Types Packs/Day Years Used Date Smoking Tobacco: Former Cigarettes Q uit: 09/28/1978 Smokeless Tobacco: Never Alcohol Use Standard Drinks/Week Comments Yes 0 (1 standard drink = 0.6 oz pur e alcohol) Comments Unknown Sex and Gender Information Value Date Recorded Sex Assigned at Not on file Legal Sex Female 8:30 AM CHARHOUSE WORKER Gender Identity Female 10/06/2021 4:28 PM CHARHOUSE WORKER Sexual Orientation Choose not to disclose 2020 4:28 PM CHARHOUSE WORKER documented as of this encounter Plan of Treatment Not on file documented as of this encounter Procedures Procedure Name Priority Date/Time Associated Diagnosis Comments PROTIME-INR Routine 02/05/2021 documented in this encounter Results * (ABNORMAL) Protime-INR (02/05/2021) INR 1.90(A) 0.9 - 1.1 EXTERNAL LAB Blood specimen (specimen) us Historical Provider LAB BLOOD ORDERABLES Noris mauro Result EXTERNAL LAB documented in this encounter Visit Diagnoses Diagnosis Atrial fibrillation, unspecified type (HCC) detention 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 documented in this encounter Care Teams Launch Engineer Relationship Specialty Start Date End Date Devaughn Macias MD PCP - General Family Medicine 01/31/20 01/13/22 documented as of this encounter
--- OUTSIDE RECORDS SUMMARY | 2024-10-22 00:28 | XMS_ITS | Encounter Summary ---
Author Organization [facility] Address [address] [place] [address] Care Team Providers Care Apartment Rental Clerk Name Role Phone Devaughn Macias MD Primary Care Provider Encounter Details Date Type Department Care Team (Latest Contact Info) Description 09/20/2020 Anticoagulation Visit [facility] Cardiology [address] [place] [address] Jesica Estrada RN penitentiary 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; Atrial fibrillation, unspecified type (CMS/HCC) Social History Tobacco Use Types Packs/Day Years Used Date Smoking Tobacco: Former Cigarettes Q uit: 09/28/1978 Smokeless Tobacco: Never Alcohol Use Standard Drinks/Week Comments Yes 0 (1 standard drink = 0.6 oz pur e alcohol) Comments Unknown Sex and Gender Information Value Date Recorded Sex Assigned at Not on file Legal Sex Female 8:30 AM ENVIRONMENTAL ASSOCIATE Gender Identity Female 10/06/2021 4:28 PM ENVIRONMENTAL ASSOCIATE Sexual Orientation Choose not to disclose 2020 4:28 PM ENVIRONMENTAL ASSOCIATE documented as of this encounter Progress Notes * Jesica Estrada RN - 09/20/2020 3:44 PM CST Opened under wrong patient RONMENTAL ASSOCIATE documented in this encounter Plan of Treatment Not on file documented as of this encounter Procedures Procedure Name Priority Date/Time Associated Diagnosis Comments PROTIME-INR Routine 09/20/2020 documented in this encounter Results * (ABNORMAL) Protime-INR (09/20/2020) INR 2.50(A) 0.9 - 1.1 EXTERNAL LAB Blood specimen (specimen) Historical Provider LAB BLOOD ORDERABLES Noris l Result EXTERNAL LAB documented in this encounter 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
--- OUTSIDE RECORDS SUMMARY | 2024-10-22 00:28 | XMS_ITS | Encounter Summary ---
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 Social History Tobacco Use Types Packs/Day Years Used Date Smoking Tobacco: Former Cigarettes Q uit: 09/28/1978 Smokeless Tobacco: Never Alcohol Use Standard Drinks/Week Comments Yes 0 (1 standard drink = 0.6 oz pur e alcohol) Comments Unknown Sex and Gender Information Value Date Recorded Sex Assigned at Not on file Legal Sex Female 8:30 AM MRI SPECIAL PROCEDURES TECHNOLOGIST Gender Identity Female 10/06/2021 4:28 PM MRI SPECIAL PROCEDURES TECHNOLOGIST Sexual Orientation Choose not to disclose 2020 4:28 PM MRI SPECIAL PROCEDURES TECHNOLOGIST documented as of this encounter Plan of Treatment Not on file documented as of this encounter Procedures Procedure Name Priority Date/Time Associated Diagnosis Comments PROTIME-INR Routine 03/27/2020 documented in this encounter Results * (ABNORMAL) Protime-INR (03/27/2020) INR 2.10(A) 0.9 - 1.1 EXTERNAL LAB Blood specimen (specimen) us Historical Provider LAB BLOOD ORDERABLES Noris mauro Result EXTERNAL LAB documented in this encounter Visit Diagnoses Diagnosis Atrial fibrillation (CMS/HCC) (HCC) Atrial fibrillation halfway 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 documented in this encounter Care Teams Paper Sorter And Counter Relationship Specialty Start Date End Date Devaughn Macias MD PCP - General Family Medicine 01/31/20 01/13/22 documented as of this encounter
--- OUTSIDE RECORDS SUMMARY | 2024-10-22 00:28 | XMS_ITS | Encounter Summary ---
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 Social History Tobacco Use Types Packs/Day Years Used Date Smoking Tobacco: Former Cigarettes Q uit: 09/28/1978 Smokeless Tobacco: Never Alcohol Use Standard Drinks/Week Comments Yes 0 (1 standard drink = 0.6 oz pur e alcohol) Comments Unknown Sex and Gender Information Value Date Recorded Sex Assigned at Not on file Legal Sex Female 8:30 AM COLLECTIONS ASSISTANT Gender Identity Female 10/06/2021 4:28 PM COLLECTIONS ASSISTANT Sexual Orientation Choose not to disclose 2020 4:28 PM COLLECTIONS ASSISTANT documented as of this encounter Plan of Treatment Not on file documented as of this encounter Visit Diagnoses Diagnosis Atrial fibrillation (CMS/HCC) (HCC) Atrial fibrillation [facility] 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 documented in this encounter Care Teams Coupon And Bond Collection Clerk Relationship Specialty Start Date End Date Devaughn Macias MD PCP - General Family Medicine 01/31/20 01/13/22 documented as of this encounter
--- OUTSIDE RECORDS SUMMARY | 2024-10-22 00:28 | XMS_ITS | Encounter Summary ---
Author Organization [facility] Address [address] [place] [address] Care Team Providers Care Industrial Truck Driver Name Role Phone Devaughn Macias MD Primary Care Provider Reason for Visit * Cardiology (Routine) - Closed Specialty Diagnoses / Procedures Referred By Contac t Referred To Contact Diagnoses History of COVID-19 Paroxysmal 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 (CMS/HCC) (HCC) HTN (hypertension), benign Procedures Transthoracic Echo Complete W Doppler/CF Ciarra Fitzpatrick MD [address] [address] Phone: tel: fax: [facility] Referral ID Status Reason Start Date Expiration Date Visits Re quested Visits Authorized [id number] Closed 02/12/2021 03/14/2022 1 1 Encounter Details Date Type Department Care Team (Latest Contact Info) Description 04/02/2021 9:15 AM CDT Ancillary Procedure [facility] Cardiology [address] [place] [address] History of COVID-19; Paroxysmal 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 (CMS/HCC); HTN (hypertension), benign Social History Tobacco Use Types Packs/Day Years Used Date Smoking Tobacco: Former Cigarettes Q uit: 09/28/1978 Smokeless Tobacco: Never Alcohol Use Standard Drinks/Week Comments Yes 0 (1 standard drink = 0.6 oz pur e alcohol) Comments Unknown Sex and Gender Information Value Date Recorded Sex Assigned at Not on file Legal Sex Female 8:30 AM MANAGER EDITORIAL Gender Identity Female 10/06/2021 4:28 PM MANAGER EDITORIAL Sexual Orientation Choose not to disclose 2020 4:28 PM MANAGER EDITORIAL documented as of this encounter Plan of Treatment Not on file documented as of this encounter Procedures Procedure Name Priority Date/Time Associated Diagnosis Comments TRANSTHORACIC ECHO (TTE) COMPLETE W DOPPLER/CF WO CONTRAST Routine 04/02/2021 9:59 AM CDT History of COVID-19 Paroxysmal 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 (CMS/HCC) HTN (hypertension), benign documented in this encounter Results * TRANSTHORACIC ECHO (TTE) COMPLETE W DOPPLER/CF WO CONTRAST (04/02/2021 9:59 AM CDT) Anatomical Region Laterality Modality Ultrasound 04/02/2021 8:42 AM CDT Narrative 04/02/2021 12:28 PM CDT [facility] Cardiology [address] [facility], [place] [address] [address], [place] [address] P:[phone] P:[phone] Echocardiographic Report Patient Name: QUIN HUERTA : [id number] Study Date: 04/02/2021 8:42:16 AM Gender: F Tech: Location: MD Ref.Provider: CIARRA FITZPATRICK Height(Cm): 165 BSA: 1.94 Weight(Kg): 86.64 Heart Rate: 56 BP: 150/88 Quality: Good Order Provider: CIARRA FITZPATRICK Procedures: Echocardiographic Report: Transthoracic echocardiogram with complete 2D, M-Mode, and color Doppler examination. Indications: History of COVID, Hypertension, and Paroxysmal 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. Measurements: 2D/M Mode ?Doppler ? Measurement ?Value ?Normal Range ? Measurement ?Value ?Normal Range ? EF Mod ? 74 ?JULISA ?1.54 ? [ 2.00 - 4.00 ] cm2 ? EF MM ?68 ? [ 55 - 70 ] % ?AV Mean PG ? 12 ? mmHg ? LVIDd MM ? 4.67 ? [ 3.90 - 5.30 ] cm ? AV Peak Festus ?2.40 ? m/s ? LVIDs MM ? 2.92 ? [ 2.30 - 3.90 ] cm ? AV Peak PG ? 23 ? mmHg ? LVPWd MM ? 1.33 ? [ 0.60 - 1.00 ] cm ? AV VTI ? 0.67 ? cm ? IVSd MM ?1.33 ? [ 0.60 - 0.90 ] cm ? LVOT Diam ?2.01 ? [ 1.70 - 2.10 ] cm ? LA Dimension MM ?3.92 ? [ 2.70 - 3.80 ] cm ? LVOT Peak Festus ?1.16 ? [ 0.70 - 1.10 ] m/s ? AoR Diam MM ?2.83 ? [ 2.60 - 3.70 ] cm ? LVOT VTI ? 0.29 ? cm ? LA Volume Index ?21.00 ?[ 16.00 - 28.00 ] cc/m2 ?MV E Peak Festus ?0.98 ? [ 0.60 - 1.30 ] m/s ? ACS MM ? 1.67 ? cm ? MV A Peak Festus ?0.87 ? [ 0.40 - 0.80 ] m/s ? MV Decel Time ?289 ?[ 150 - 200 ] msec ? PV Peak Festus ?1.38 ? [ 0.40 - 0.80 ] m/s ? TR Peak Festus ?2.75 ? [ 0.40 - 0.80 ] m/s ? TR Peak PG ? 30 ? mmHg ? RVSP ? 38.00 ?mmHg ? E' ? 0.09 ? E/E' ? 10 ? Findings: Interpretation Site: Exam was interpreted at [facility]. Left Ventricle: Normal left ventricular systolic function. No focal wall motion abnormalities. Normal left ventricular size. Moderate concentric left ventricular hypertrophy. Paradoxical septal motion consistent with IVCD or bundle branch block. Ejection fraction is measured at 74 %. Right Ventricle: Normal right ventricular size. Normal right ventricular systolic function. Left Atrium: The left atrium is normal in size. Right Atrium: The right atrium is normal in size. Atrial Septum: Normal atrial septum. Mitral Valve: Normal appearance of the mitral valve. Mild mitral annular calcification. Trivial regurgitation of the mitral valve. Aortic Valve: Aortic valve not well visualized. Mild aortic stenosis. Peak gradient of 23.0 mmHg. Mean gradient of 12.0 mmHg. Valve area of 1.54 cm2. No aortic regurgitation. Tricuspid Valve: Normal appearance of the tricuspid valve. Mild pulmonary hypertension based on right ventricular systolic pressure. Estimated peak RVSP is 38 mmHg. Mild tricuspid regurgitation. Pulmonic Valve: Pulmonic valve not well visualized. Trivial regurgitation in the pulmonic valve. Pericardium: Normal pericardium with no significant pericardial effusion. There is an anterior echo free space consistent with epicardial fat pad. Aorta: Normal aortic root. No aortic root dilation. Mild aortic root calcification. IVC: The IVC is not well visualized. Conclusions: Normal left ventricular systolic function. No focal [...] mmHg. Mild tricuspid regurgitation. Normal sinus rhythm. Electronically Signed By: Natalie Rowell MD 2021-04-02 12:28:51 CDT Procedure Note Prieto Rowell MD - 04/02/2021 [facility] Cardiology [address] [facility] [address], [place] [address] [address] [address] P:[phone] P:[phone] Echocardiographic Report Patient Name: QUIN HUERTAPatient ID: [id number] : [id number] Date: 04/02/2021 8:42:16 AM Gender: FAccession #: [id number] Tech: GMLocation: MD Ref.Provider: CIARRA FITZPATRICKHeight(Cm): 165 BSA: 1.94Weight(Kg): 86.64 Heart Rate: 56BP: 150/88 Quality: GoodOrder Provider: CIARRA FITZPATRICK Procedures: Echocardiographic Report: Transthoracic echocardiogram with complete 2D, M-Mode, and color Dopplerexamination. Indications: History of COVID, Hypertension, and Paroxysmal 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. Measurements: 2D/M Mode Doppler Measurement Value Normal Range MeasurementValue Normal Range EF Mod 74 AVA1.54 [ 2.00 - 4.00 ] cm2 EF MM 68 [ 55 - 70 ] % AV Mean PG 12mmHg LVIDd MM 4.67 [ 3.90 - 5.30 ] cm AV Peak Vel2.40 m/s LVIDs MM 2.92 [ 2.30 - 3.90 ] cm AV Peak PG 23mmHg LVPWd MM 1.33 [ 0.60 - 1.00 ] cm AV VTI0.67 cm IVSd MM 1.33 [ 0.60 - 0.90 ] cm LVOT Diam2.01 [ 1.70 - 2.10 ] cm LA Dimension MM 3.92 [ 2.70 - 3.80 ] cm LVOT Peak Vel1.16 [ 0.70 - 1.10 ] m/s AoR Diam MM 2.83 [ 2.60 - 3.70 ] cm LVOT VTI0.29 cm LA Volume Index 21.00 [ 16.00 - 28.00 ] cc/m2 MV E Peak Vel0.98 [ 0.60 - 1.30 ] m/s ACS MM 1.67 cm MV A Peak Vel0.87 [ 0.40 - 0.80 ] m/s MV Decel [id number] [ 150 - 200 ] msec PV Peak Vel1.38 [ 0.40 - 0.80 ] m/s TR Peak Vel2.75 [ 0.40 - 0.80 ] m/s TR Peak PG 30mmHg RVSP38.00 mmHg E'0.09 E/E' 10 Findings: Interpretation Site: Exam was interpreted at [facility]. Left Ventricle: Normal left ventricular systolic function. No focal wall motionabnormalities. Normal left ventricular size. Moderate concentric left ventricular hypertrophy.Paradoxical septal motion consistent with IVCD or bundle branch block. Ejectionfraction is measured at 74 %. Right Ventricle: Normal right ventricular size. Normal right ventricular systolicfunction. Left Atrium: The left atrium is normal in size. Right Atrium: The right atrium is normal in size. Atrial Septum: Normal atrial septum. Mitral Valve: Normal appearance of the mitral valve. Mild mitral annular calcification.Trivial regurgitation of the mitral valve. Aortic Valve: Aortic valve not well visualized. Mild aortic stenosis. Peak gradient of23.0 mmHg. Mean gradient of 12.0 mmHg. Valve area of 1.54 cm2. No aortic regurgitation. Tricuspid Valve: Normal appearance of the tricuspid valve. Mild pulmonary hypertensionbased on right ventricular systolic pressure. Estimated peak RVSP is 38 mmHg. Mildtricuspid regurgitation. Pulmonic Valve: Pulmonic valve not well visualized. Trivial regurgitation in the pulmonicvalve. Pericardium: Normal pericardium with no significant pericardial effusion. There is ananterior echo free space consistent with epicardial fat pad. Aorta: Normal aortic root. No aortic root dilation. Mild aortic rootcalcification. IVC: The IVC is not well visualized. Conclusions: Normal left ventricular systolic function. No focal wall motionabnormalities. Normal left ventricular size. Moderate concentric left ventricular hypertrophy.Paradoxical septal motion consistent with IVCD or bundle branch block. Ejectionfraction is measured at 74 %. Normal appearance of the mitral valve. Mild mitral annular calcification.Trivial regurgitation of the mitral valve. Aortic valve not well visualized. Mild aortic stenosis. Peak gradient of23.0 mmHg. Mean gradient of 12.0 mmHg. Valve area of 1.54 cm2. No aortic regurgitation. Normal appearance of the tricuspid valve. Mild pulmonary hypertensionbased on right ventricular systolic pressure. Estimated peak RVSP is 38 mmHg. Mildtricuspid regurgitation. Normal sinus rhythm. Electronically Signed By: Natalie Rowell MD 2021-04-02 12:28:51 CDT us Ciarra Fitzpatrick MD CV ECHO PROCEDURES Final Result documented in this encounter Visit Diagnoses Diagnosis History of COVID-19 Paroxysmal 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 (CMS/HCC) (HCC) Atrial fibrillation HTN (hypertension), benign Essential hypertension, benign documented in this encounter Care Teams Industrial Truck Driver Relationship Specialty Start Date End Date Devaughn Macias MD PCP - General Family Medicine 01/31/20 01/13/22 documented as of this encounter
--- OUTSIDE RECORDS SUMMARY | 2024-10-22 00:28 | XMS_ITS | Encounter Summary ---
Author Organization [facility] Address [address] [place] [address] Care Team Providers Care Or Scrub Tech Name Role Phone Devaughn Macias MD Primary Care Provider Encounter Details Date Type Department Care Team (Late st Contact Info) Description 12/04/2020 Telephone [facility] Cardiology [address] [facility] [address] [place] [address] Andrade Brown MD [facility] [place] [id number] Social History Tobacco Use Types Packs/Day Years Used Date Smoking Tobacco: Former Cigarettes Q uit: 09/28/1978 Smokeless Tobacco: Never Alcohol Use Standard Drinks/Week Comments Yes 0 (1 standard drink = 0.6 oz pur e alcohol) Comments Unknown Sex and Gender Information Value Date Recorded Sex Assigned at Not on file Legal Sex Female 8:30 AM CERTIFIED NURSING ATTENDANT Gender Identity Female 10/06/2021 4:28 PM CERTIFIED NURSING ATTENDANT Sexual Orientation Choose not to disclose 2020 4:28 PM CERTIFIED NURSING ATTENDANT documented as of this encounter Ordered Prescriptions Prescription Sig Dispense Quantity Refills Last Filled Start Date End Date warfarin (COUMADIN) 4 mg tablet TAKE ONE AND ONE-HALF TABLETS BY MOUTH EVERY WEDNESDAY, WEDNESDAY AND ONE TABLET BY MOUTH ALL OTHER DAYS OR DIRECTED 90 tablet 12/04/2020 documented in this encounter Miscellaneous Notes * Telephone Encounter - Jacque Hurley MA - 12/04/2020 4:20 PM CST Spoke with pt and sent 90 day supply. She is overdue for INR check bc she had COVID in Oct 2020. Ptwill get blood test tomorrow. IFIED NURSING ATTENDANT * Telephone Encounter - Khushi Mcelroy - 12/04/2020 3:00 PM CST Received refill for Warfarin, but instead od 90 day supply, she received a 30 day supply. Pharmacy told her that's what we ordered and we will have to send them a new order. Verified pharmacy in chart is correct. IFIED NURSING ATTENDANT documented in this encounter Plan of Treatment Not on file documented as of this encounter Visit Diagnoses Not on filedocumented in this encounter Discontinued Medications Medication Sig Discontinue Reason Start Date End Da te warfarin (COUMADIN) 4 mg tablet TAKE ONE AND ONE-HALF TABLETS BY MOUTH EVERY WEDNESDAY, WEDNESDAY AND ONE TABLET BY MOUTH ALL OTHER DAYS OR DIRECTED Reorder 12/04/2020 12/04/2020 documented as of this encounter Care Teams Or Scrub Tech Relationship Specialty Start Date End Date Devaughn Macias MD PCP - General Family Medicine 01/31/20 01/13/22 documented as of this encounter
--- OUTSIDE RECORDS SUMMARY | 2024-10-22 00:28 | XMS_ITS | Encounter Summary ---
Author Organization [facility] Address [address] [address] [place] [address] Care Team Providers Care Establishment Guide Name Role Phone Devaughn Macias MD Primary Care Provider Encounter Details Date Type Department Care Team (Latest Contact Info) Description 02/14/2020 Anticoagulation Visit [facility] Cardiology [address] [place] [address] Jacque Herrera RN Paroxysmal 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 (CMS/HCC); rn long term care 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 Social History Tobacco Use Types Packs/Day Years Used Date Smoking Tobacco: Former Cigarettes Q uit: 09/28/1978 Smokeless Tobacco: Never Alcohol Use Standard Drinks/Week Comments Yes 0 (1 standard drink = 0.6 oz pur e alcohol) Comments Unknown Sex and Gender Information Value Date Recorded Sex Assigned at Not on file Legal Sex Female 8:30 AM MILL ROLL OPERATOR Gender Identity Female 10/06/2021 4:28 PM MILL ROLL OPERATOR Sexual Orientation Choose not to disclose 2020 4:28 PM MILL ROLL OPERATOR documented as of this encounter Plan of Treatment Not on file documented as of this encounter Procedures Procedure Name Priority Date/Time Associated Diagnosis Comments PROTIME-INR Routine 02/14/2020 documented in this encounter Results * (ABNORMAL) Protime-INR (02/14/2020) INR 2.90(A) 0.9 - 1.1 EXTERNAL LAB Blood specimen (specimen) us Historical Provider LAB BLOOD ORDERABLES Noris mauro Result EXTERNAL LAB documented in this encounter Visit Diagnoses Diagnosis Paroxysmal 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 (CMS/HCC) (HCC) Atrial fibrillation [facility] 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 documented in this encounter Care Teams Establishment Guide Relationship Specialty Start Date End Date Devaughn Macias MD PCP - General Family Medicine 01/31/20 01/13/22 documented as of this encounter
--- OUTSIDE RECORDS SUMMARY | 2024-10-22 00:28 | XMS_ITS | Encounter Summary ---
Author Organization [facility] Address [address] [facility] [address] [facility] [address] [place] [address] Care Team Providers Care Head Teller Name Role Phone Devaughn Macias MD Primary Care Provider Encounter Details Date Type Department Care Team (Latest Contact Info) Description 05/08/2020 Anticoagulation Visit [facility] Cardiology [address] [place] [address] Rosy White RN Atrial fibrillation (CMS/HCC); residential 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 Social History Tobacco Use Types Packs/Day Years Used Date Smoking Tobacco: Former Cigarettes Q uit: 09/28/1978 Smokeless Tobacco: Never Alcohol Use Standard Drinks/Week Comments Yes 0 (1 standard drink = 0.6 oz pur e alcohol) Comments Unknown Sex and Gender Information Value Date Recorded Sex Assigned at Not on file Legal Sex Female 8:30 AM PHOTOGRAPHIC ENLARGER OPERATOR Gender Identity Female 10/06/2021 4:28 PM PHOTOGRAPHIC ENLARGER OPERATOR Sexual Orientation Choose not to disclose 2020 4:28 PM PHOTOGRAPHIC ENLARGER OPERATOR documented as of this encounter Plan of Treatment Not on file documented as of this encounter Procedures Procedure Name Priority Date/Time Associated Diagnosis Comments PROTIME-INR Routine 05/08/2020 documented in this encounter Results * (ABNORMAL) Protime-INR (05/08/2020) INR 3.20(A) 0.9 - 1.1 EXTERNAL LAB Blood specimen (specimen) us Historical Provider LAB BLOOD ORDERABLES Noris mauro Result EXTERNAL LAB documented in this encounter Visit Diagnoses Diagnosis Atrial fibrillation (CMS/HCC) (HCC) Atrial fibrillation residential 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 documented in this encounter Care Teams Head Teller Relationship Specialty Start Date End Date Devaughn Macias MD PCP - General Family Medicine 01/31/20 01/13/22 documented as of this encounter
--- OUTSIDE RECORDS SUMMARY | 2024-10-22 00:28 | XMS_ITS | Encounter Summary ---
Author Organization [facility] Medical Group Address [address] [place] [address] Care Team Providers Care Computer Systems Information Director Name Role Phone Devaughn Macias MD Primary Care Provider Encounter Details Date Type Department Care Team (Late st Contact Info) Description 02/12/2021 Telephone [facility] Medical [facility] Cardiology [address] [place] [address] Andrade Brown MD [facility] [place] [id number] Social History Tobacco Use Types Packs/Day Years Used Date Smoking Tobacco: Former Cigarettes Q uit: 09/28/1978 Smokeless Tobacco: Never Alcohol Use Standard Drinks/Week Comments Yes 0 (1 standard drink = 0.6 oz pur e alcohol) Comments Unknown Sex and Gender Information Value Date Recorded Sex Assigned at Not on file Legal Sex Female 8:30 AM YARN SPOOLER Gender Identity Female 10/06/2021 4:28 PM YARN SPOOLER Sexual Orientation Choose not to disclose 2020 4:28 PM YARN SPOOLER documented as of this encounter Miscellaneous Notes * Telephone Encounter - Rosy White RN - 02/12/2021 10:56 AM CDT Pt inr documented in this encounter Plan of Treatment Scheduled Orders Name Type Priority Associated Diagnoses Orde r Schedule Protime-INR Lab Routine Paroxysmal 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 (CMS/HCC) manager intermediate 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 52 Occurrences starting 02/12/2021 until 02/12/2022 documented as of this encounter Visit Diagnoses Diagnosis Paroxysmal 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 (CMS/HCC) (HCC)- Primary Atrial fibrillation shelter 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 documented in this encounter Care Teams Computer Systems Information Director Relationship Specialty Start Date End Date Devaughn Macias MD PCP - General Family Medicine 01/31/20 01/13/22 documented as of this encounter
--- OUTSIDE RECORDS SUMMARY | 2024-10-22 00:28 | XMS_ITS | Encounter Summary ---
Author Organization [facility] Medical Group Address [address] [place] [address] Care Team Providers Care Sweatband Perforator Name Role Phone Devaughn Macias MD Primary Care Provider Encounter Details Date Type Department Care Team (Late st Contact Info) Description 10/09/2020 Telephone [facility] Medical Group Cardiology [address] [facility] [address] [place] [address] Andrade Brown MD [facility] [place] [id number] Social History Tobacco Use Types Packs/Day Years Used Date Smoking Tobacco: Former Cigarettes Q uit: 09/28/1978 Smokeless Tobacco: Never Alcohol Use Standard Drinks/Week Comments Yes 0 (1 standard drink = 0.6 oz pur e alcohol) Comments Unknown Sex and Gender Information Value Date Recorded Sex Assigned at Not on file Legal Sex Female 8:30 AM GROUP PRESIDENT Gender Identity Female 10/06/2021 4:28 PM GROUP PRESIDENT Sexual Orientation Choose not to disclose 2020 4:28 PM GROUP PRESIDENT documented as of this encounter Miscellaneous Notes * Telephone Encounter - Jesica Estrada RN - 10/09/2020 11:16 AM GROUP PRESIDENT Images from the original note were not included. Spoke with patient,test was in error and Patient had labs drawn again today. MayankQuin akins Matthew Alan, MD 2 hours ago (8:31 AM) My Chart shows results from a test. I had no such test taken. P PRESIDENT documented in this encounter Plan of Treatment Not on file documented as of this encounter Visit Diagnoses Not on filedocumented in this encounter Care Teams Sweatband Perforator Relationship Specialty Start Date End Date Devaughn Macias MD PCP - General Family Medicine 01/31/20 01/13/22 documented as of this encounter
--- OUTSIDE RECORDS SUMMARY | 2024-10-22 00:28 | XMS_ITS | Encounter Summary ---
Author Organization [facility] Medical Group Address [address] [place] [address] Care Team Providers Care Director Of Software Engineering Name Role Phone Devaughn Macias MD Primary Care Provider Encounter Details Date Type Department Care Team (Latest Contact Info) Description 07/17/2020 Anticoagulation Visit [facility] Medical Group Cardiology [address] [place] [address] Rachel Zhao RN Atrial fibrillation, unspecified type (CMS/HCC); jail 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 Social History Tobacco Use Types Packs/Day Years Used Date Smoking Tobacco: Former Cigarettes Q uit: 09/28/1978 Smokeless Tobacco: Never Alcohol Use Standard Drinks/Week Comments Yes 0 (1 standard drink = 0.6 oz pur e alcohol) Comments Unknown Sex and Gender Information Value Date Recorded Sex Assigned at Not on file Legal Sex Female 8:30 AM FRAME BANDER Gender Identity Female 10/06/2021 4:28 PM FRAME BANDER Sexual Orientation Choose not to disclose 2020 4:28 PM FRAME BANDER documented as of this encounter Plan of Treatment Not on file documented as of this encounter Procedures Procedure Name Priority Date/Time Associated Diagnosis Comments PROTIME-INR Routine 07/17/2020 documented in this encounter Results * (ABNORMAL) Protime-INR (07/17/2020) INR 2.80(A) 0.9 - 1.1 EXTERNAL LAB Blood specimen (specimen) us Historical Provider LAB BLOOD ORDERABLES Noris mauro Result EXTERNAL LAB documented in this encounter Visit Diagnoses Diagnosis Atrial fibrillation, unspecified type (HCC) jail 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 documented in this encounter Care Teams Director Of Software Engineering Relationship Specialty Start Date End Date Devaughn Macias MD PCP - General Family Medicine 01/31/20 01/13/22 documented as of this encounter
--- OUTSIDE RECORDS SUMMARY | 2024-10-22 00:28 | XMS_ITS | Encounter Summary ---
Author Organization [facility] Medical Group Address [address] [place] [address] Care Team Providers Care Inspector Finishing Name Role Phone Devaughn Macias MD Primary Care Provider Encounter Details Date Type Department Care Team (Latest Contact Info) Description 06/05/[address] 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 Social History Tobacco Use Types Packs/Day Years Used Date Smoking Tobacco: Former Cigarettes Q uit: 09/28/1978 Smokeless Tobacco: Never Alcohol Use Standard Drinks/Week Comments Yes 0 (1 standard drink = 0.6 oz pur e alcohol) Comments Unknown Sex and Gender Information Value Date Recorded Sex Assigned at Not on file Legal Sex Female 8:30 AM COLLAR TAILOR Gender Identity Female 10/06/2021 4:28 PM COLLAR TAILOR Sexual Orientation Choose not to disclose 2020 4:28 PM COLLAR TAILOR documented as of this encounter Plan of Treatment Not on file documented as of this encounter Procedures Procedure Name Priority Date/Time Associated Diagnosis Comments PROTIME-INR Routine 06/05/2020 documented in this encounter Results * (ABNORMAL) Protime-INR (06/05/2020) INR 2.80(A) 0.9 - 1.1 EXTERNAL LAB Blood specimen (specimen) us Historical Provider LAB BLOOD ORDERABLES Noris mauro Result EXTERNAL LAB documented in this encounter Visit Diagnoses Diagnosis Atrial fibrillation (CMS/HCC) (HCC) Atrial fibrillation halfway 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 documented in this encounter Care Teams Inspector Finishing Relationship Specialty Start Date End Date Devaughn Macias MD PCP - General Family Medicine 01/31/20 01/13/22 documented as of this encounter
--- OUTSIDE RECORDS SUMMARY | 2024-10-22 00:28 | XMS_ITS | Encounter Summary ---
Author Organization [facility] Healthcare Address [address] [place] [address] Care Team Providers Care Controls Designer Name Role Phone Devaughn Macias MD Primary Care Provider Reason for Visit * Diagnostic Imaging (Routine) - Closed Specialty Diagnoses / Procedures Referred By Lyndsey farmer Referred To Contact Diagnoses Left hip pain Primary osteoarthritis of left hip Procedures FL Fluoro Guided Injection Hip Left Kaim Lyons PA Phone: tel: fax: [address] [phone] Referral ID Status Reason Start Date Expiration Date Visits Re quested Visits Authorized [id number] Closed 06/07/2020 07/07/2021 1 1 Encounter Details Date Type Department Care Team (Late st Contact Info) Description 06/26/2020 7:32 AM CDT - 06/26/2020 11:59 PM CDT Hospital Encounter [facility] [address] [place] [address] Herber Knott MD [address] [place] [address] [place] [address] [place] [address] Discharge Disposition: Discharge to home or self care Social History Tobacco Use Types Packs/Day Years Used Date Smoking Tobacco: Former Cigarettes Q uit: 09/28/1978 Smokeless Tobacco: Never Alcohol Use Standard Drinks/Week Comments Yes 0 (1 standard drink = 0.6 oz pur e alcohol) Comments Unknown Sex and Gender Information Value Date Recorded Sex Assigned at Not on file Legal Sex Female 8:30 AM IGNITER CAPPER Gender Identity Female 10/06/2021 4:28 PM IGNITER CAPPER Sexual Orientation Choose not to disclose 2020 4:28 PM IGNITER CAPPER documented as of this encounter Medications at Time of Discharge hydroCHLOROthiazi de (HYDRODIURIL) 25 mg tablet TAKE 1 TABLET BY MOUTH DAILY 90 tablet 1 01/29/2020 08/05/2020 losartan (COZAAR) 100 mg tablet TAKE 1 TABLET BY MOUTH DAILY 90 tablet 1 01/29/2020 08/05/2020 warfarin (COUMADIN) 4 mg tablet 6 mg (4 mg x 1.5) every Mon, Lisbeth; 4 mg (4 mg x 1) all other days 90 tablet 2 02/27/2020 10/09/2020 documented as of this encounter Discharge Disposition Disposition Code Departure Means Destination Discharge to home or self care documented in this encounter Miscellaneous Notes * Post-Procedure Note - Grant Carlos MD - 06/26/2020 9:00 AM CDT Radiology Brief Post Procedure Note Attending: Dr. Grant Carlos Sedation/Anesthesia: Local Pre-procedure Diagnosis: Left hip OA Post-procedure Diagnosis: Same Procedure Performed: FL FLUORO GUIDED INJECTION HIP LEFT Procedure Findings: Successful Complications: None Estimated Blood Loss: None Specimens: None Condition: Stable Full report to follow. documented in this encounter Plan of Treatment Not on file documented as of this encounter Procedures Procedure Name Priority Date/Time Associated Diagnosis Comments FL FLUORO GUIDED INJECTION HIP LEFT Schedule Routine, Read Routine (OP Routine) 06/26/2020 10:18 AM CDT Left hip pain Primary osteoarthritis of left hip PROTIME-INR STAT 06/26/2020 8:31 AM CDT documented in this encounter Results * Protime-INR (06/26/2020 8:31 AM CDT) PT 12.8 9.5 - 13.0 sec [facility] INR 1.1 0.9 - 1.2 [facility] Comment: Interpretive data Oral anticoagulant therapeutic ranges: Venous thromboembolism prophylaxis or treatment: 2.0-3.0 CARDIOLOGY Standard range: 2.0-3.0 High-intensity range: 2.5-3.5 Refer to indication-specific guidelines for appropriate target ranges for prosthetic heart valve replacement. Current interpretive data was last revised on 2019. Blood specimen (specimen) 06/26/2020 8:31 AM CDT 06/26/2020 8:33 AM CDT us Kami BUSH LAB BLOOD ORDERABLE S Final Result [facility] ([place]) [address] [facility] Department [place] [address] documented in this encounter Visit Diagnoses Not on filedocumented in this encounter Administered Medications Inactive Administered Medications - up to 3 most recent administrations Medication Order MAR Action Action Date Dose Rate Site iohexoL (OMNIPAQUE) 240 mg iodine/mL injection solution 10 mL 10 mL, intra-articular, Once in imaging, contrast, Starting on Wed06/26/20 at 0917, For 1 dose Given 06/26/2020 10:26 AM CDT 1 mL lidocaine PF (XYLOCAINE) 10 mg/mL (1 %) preservative free injection 300 mg 300 mg (30 mL), subcutaneous, Once, On Wed06/26/20 at 1000, For 1 dose Given 06/26/2020 10:25 AM CDT 5 mL Left Upper Hip methylPREDNISolone acetate (DEPO-medrol) injection 80 mg 80 mg, intra-articular, Once, On Wed06/26/20 at 1000, For 1 dose Given 06/26/2020 10:24 AM CDT 80 mg documented in this encounter Care Teams Controls Designer Relationship Specialty Start Date End Date Devaughn Macias MD PCP - General Family Medicine 01/31/20 01/13/22 documented as of this encounter
--- OUTSIDE RECORDS SUMMARY | 2024-10-22 00:28 | XMS_ITS | Encounter Summary ---
Author Organization [facility] Medical Group Address [address] [place] [address] Care Team Providers Care Amortization Clerk Name Role Phone Devaughn Macias MD Primary Care Provider Reason for Visit * Diagnostic Imaging (Routine) - Closed Specialty Diagnoses / Procedures Referred By Lyndsey farmer Referred To Contact Diagnoses Left hip pain Procedures XR Hip Left 2 or 3 Views Kami Lyons PA Phone: tel: fax: Referral ID Status Reason Start Date Expiration Date Visits Re quested Visits Authorized [id number] Closed 06/07/2020 07/07/2021 1 1 Encounter Details Date Type Department Care Team (Latest Contact Info) Description 06/07/2020 8:06 AM CDT - 06/07/2020 11:59 PM CDT Hospital Encounter [facility] Medical [facility] Orthopedics and Sports Medicine [address] [place] [address] [address] [address] Discharge Disposition: Discharge to home [...] on file Legal Sex Female 8:30 AM HAND STONE POLISHER Gender Identity Female 10/06/2021 4:28 PM HAND STONE POLISHER Sexual Orientation Choose not to disclose 12/27/ 2021 4:28 PM HAND STONE POLISHER documented as of this encounter Medications [...] VIEWS Schedule Routine, Read Routine (OP Routine) 06/07/2020 1:18 PM CDT Left hip pain documented in this encounter Results * XR Hip Left 2 or 3 Views (06/07/2020 1:18 PM CDT) Anatomical Region Laterality Modality Lower Extremities, Hip, Pelvis Left D igital Radiography Narrative 06/07/2020 1:18 PM CDT AP pelvis and false profile radiographs taken of the left hip today reveal severe degenerative changes with subchondral sclerosis, osteophyte formation, and bone on bone contact. Kami BUSH IMBen XR PROCEDURES F inal Result documented in this encounter Visit Diagnoses Not on filedocumented in this encounter Care Teams Amortization Clerk Relationship Specialty Start Date End Date Devaughn Macias MD PCP - General Family Medicine 01/31/20 01/13/22 documented as of this encounter
--- OUTSIDE RECORDS SUMMARY | 2024-10-22 00:28 | XMS_ITS | Encounter Summary ---
Author Organization [facility] Medical Group Address [address] [place] [address] Care Team Providers Care Forging Die Finisher Name Role Phone Devaughn Macias MD Primary Care Provider Reason for Visit * Reason Comments Pain Encounter Details Date Type Department Care Team (Late st Contact Info) Description 09/12/2020 11:30 AM PROGRAM MANAGER TRANSPORTATION Office Visit [facility] Medical [facility] Orthopedics and Sports Medicine [address] [place] [phone] Victoria Madison PA [address] [place] [address] [address] [place] [address] Primary osteoarthritis of left hip (Primary Dx) Social History Tobacco Use Types Packs/Day Years Used Date Smoking Tobacco: Former Cigarettes Q uit: 09/28/1978 Smokeless Tobacco: Never Alcohol Use Standard Drinks/Week Comments Yes 0 (1 standard drink = 0.6 oz pur e alcohol) Comments Unknown Sex and Gender Information Value Date Recorded Sex Assigned at Not on file Legal Sex Female 8:30 AM PROGRAM MANAGER TRANSPORTATION Gender Identity Female 10/06/2021 4:28 PM PROGRAM MANAGER TRANSPORTATION Sexual Orientation Choose not to disclose 2020 4:28 PM PROGRAM MANAGER TRANSPORTATION documented as of this encounter Last Filed Vital Signs Vital Sign Reading Time Taken Comments Blood Pressure 190/84 09/12/2020 11:11 AM PROGRAM MANAGER TRANSPORTATION Pulse 72 09/12/2020 11:11 AM PROGRAM MANAGER TRANSPORTATION Temperature 36.1 ??C (96.9 ??F) 09/12/2020 11:[address] Respiratory Rate - - Oxygen Saturation - - Inhaled Oxygen Concentration - - Weight 88.9 kg (196 lb) 09/12/2020 11:11 AM PROGRAM MANAGER TRANSPORTATION Height 165.1 cm (5' 5 ) 09/12/2020 11:11 AM PROGRAM MANAGER TRANSPORTATION Body Mass Index 32.62 09/12/2020 11:11 AM PROGRAM MANAGER TRANSPORTATION documented in this encounter Progress Notes * Victoria Madison PA - 09/12/2020 11:30 AM CST Images from the original note [...] UP VISIT Subjective CHIEF COMPLAINT She had no chief complaint listed for this encounter. HISTORY OF PRESENT ILLNESS Quin Talley is a pleasant 85 y.o. female who presents today in follow up of her left hip osteoarthritis. She was seen by Pam in May, at which time an intraarticular injection was ordered. Thiswas performed on 06/26 and provided moderate relief. She notes new onset pain about her right knee and lateral hip as well, but states her groin pain is the worst of the three at this time. She is notcurrently taking anything for her discomfort and is unable to tolerate NSAIDs due to being on Coumadin. She has a history A fib and PAD for which she takes Coumadin. She denies history of stroke, seizures, DVT/PE. PAST MEDCIAL HISTORY She has a past [...] She reports that she quit smoking about 41 years ago. Her smoking use included cigarettes. [...] and is not hyperactive. Objective PHYSICAL EXAM There were no vitals taken for this visit. Left hip Inspection Erythema: absent Edema: absent [...] leg raise): positive REVIEW OF X-RAYS/STUDIES/LABS Assessment/Plan There are no diagnoses linked to this encounter. PLAN I discussed with Ms Talley the results of her injection and future treatment options. She has knownsevere osteoarthritis of her left hip and would benefit from a total hip arthroplasty in the future. However, she is undecided as to whether or not she would like to proceed at this time. She is going to take some time to think about it and will contact us when she decides how to proceed, be it an additional intraarticular injection under fluoroscopy vs. scheduling of DEEDEE. Shall her symptoms in the knee fail to improve, she may return to clinic at any time for evaluation. She is encouraged to contact the office with any further questions or concerns. RACHELLE Sparrow Cosigned by Herber Knott MD at 09/12/2020 4:09 PM PROGRAM MANAGER TRANSPORTATION RAM MANAGER TRANSPORTATION RAM MANAGER TRANSPORTATION documented in this encounter Plan of Treatment Not on file documented as of this encounter Visit Diagnoses Diagnosis Primary osteoarthritis of left hip- Primary documented in this encounter Care Teams Forging Die Finisher Relationship Specialty Start Date End Date Devaughn Macias MD PCP - General Family Medicine 01/31/20 01/13/22 documented as of this encounter
--- OUTSIDE RECORDS SUMMARY | 2024-10-22 00:28 | XMS_ITS | Encounter Summary ---
Author Organization [facility] Medical Group Address [address] [place] [address] Care Team Providers Care Photo Intern Name Role Phone Devaughn Macias MD Primary Care Provider Encounter Details Date Type Department Care Team (Latest Contact Info) Description 01/02/2021 Anticoagulation Visit [facility] Medical [facility] Cardiology [address] [place] [address] Jesica Estrada RN Atrial fibrillation, unspecified type (CMS/HCC); correction 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 Social History Tobacco Use Types Packs/Day Years Used Date Smoking Tobacco: Former Cigarettes Q uit: 09/28/1978 Smokeless Tobacco: Never Alcohol Use Standard Drinks/Week Comments Yes 0 (1 standard drink = 0.6 oz pur e alcohol) Comments Unknown Sex and Gender Information Value Date Recorded Sex Assigned at Not on file Legal Sex Female 8:30 AM INDUSTRIAL ENERGY ENGINEER Gender Identity Female 10/06/2021 4:28 PM INDUSTRIAL ENERGY ENGINEER Sexual Orientation Choose not to disclose 2020 4:28 PM INDUSTRIAL ENERGY ENGINEER documented as of this encounter Plan of Treatment Not on file documented as of this encounter Procedures Procedure Name Priority Date/Time Associated Diagnosis Comments PROTIME-INR Routine 01/02/2021 documented in this encounter Results * (ABNORMAL) Protime-INR (01/02/2021) INR 2.20(A) 0.9 - 1.1 EXTERNAL LAB Blood specimen (specimen) us Historical Provider LAB BLOOD ORDERABLES Noris mauro Result EXTERNAL LAB documented in this encounter Visit Diagnoses Diagnosis Atrial fibrillation, unspecified type (HCC) long term 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 documented in this encounter Care Teams Photo Intern Relationship Specialty Start Date End Date Devaughn Macias MD PCP - General Family Medicine 01/31/20 01/13/22 documented as of this encounter
--- OUTSIDE RECORDS SUMMARY | 2024-10-22 00:28 | XMS_ITS | Encounter Summary ---
Author Organization [facility] Medical Group Address 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 Social History Tobacco Use Types Packs/Day Years Used Date Smoking Tobacco: Former Cigarettes Q uit: 09/28/1978 Smokeless Tobacco: Never Alcohol Use Standard Drinks/Week Comments Yes 0 (1 standard drink = 0.6 oz pur e alcohol) Comments Unknown Sex and Gender Information Value Date Recorded Sex Assigned at Not on file Legal Sex Female 8:30 AM PAN GREASER Gender Identity Female 10/06/2021 4:28 PM PAN GREASER Sexual Orientation Choose not to disclose 2020 4:28 PM PAN GREASER documented as of this encounter Plan of Treatment Not on file documented as of this encounter Procedures Procedure Name Priority Date/Time Associated Diagnosis Comments PROTIME-INR Routine 08/28/2020 documented in this encounter Results * (ABNORMAL) Protime-INR (08/28/2020) INR 2.50(A) 0.9 - 1.1 EXTERNAL LAB Blood specimen (specimen) us Historical Provider LAB BLOOD ORDERABLES Noris mauro Result EXTERNAL LAB documented in this encounter Visit Diagnoses Diagnosis Paroxysmal 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 (CMS/HCC) (HCC) Atrial fibrillation [facility] 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 documented in this encounter Care Teams Perishable Freight Inspector Relationship Specialty Start Date End Date Devaughn Macias MD PCP - General Family Medicine 01/31/20 01/13/22 documented as of this encounter
--- OUTSIDE RECORDS SUMMARY | 2024-10-22 00:28 | XMS_ITS | Encounter Summary ---
Author Organization [facility] Address [address] [place] [address] Care Team Providers Care Inspecting And Testing Lead Hand Name Role Phone Devaughn Macias MD Primary Care Provider Encounter Details Date Type Department Care Team (Latest Contact Info) Description 10/09/2020 Anticoagulation Visit [facility] Cardiology [address] [place] [address] Jesica Estrada RN Atrial fibrillation, unspecified type (CMS/HCC); shelter 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 Social History Tobacco Use Types Packs/Day Years Used Date Smoking Tobacco: Former Cigarettes Q uit: 09/28/1978 Smokeless Tobacco: Never Alcohol Use Standard Drinks/Week Comments Yes 0 (1 standard drink = 0.6 oz pur e alcohol) Comments Unknown Sex and Gender Information Value Date Recorded Sex Assigned at Not on file Legal Sex Female 8:30 AM SUPERVISOR GAS METER REPAIR Gender Identity Female 10/06/2021 4:28 PM SUPERVISOR GAS METER REPAIR Sexual Orientation Choose not to disclose 2020 4:28 PM SUPERVISOR GAS METER REPAIR documented as of this encounter Plan of Treatment Not on file documented as of this encounter Procedures Procedure Name Priority Date/Time Associated Diagnosis Comments PROTIME-INR Routine 10/09/2020 documented in this encounter Results * (ABNORMAL) Protime-INR (10/09/2020) INR 2.10(A) 0.9 - 1.1 EXTERNAL LAB Blood specimen (specimen) us Historical Provider LAB BLOOD ORDERABLES Noris mauro Result EXTERNAL LAB documented in this encounter Visit Diagnoses Diagnosis Atrial fibrillation, unspecified type (HCC) 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
--- OUTSIDE RECORDS SUMMARY | 2024-10-22 00:28 | XMS_ITS | Encounter Summary ---
Author Organization [facility] Address [address] [place] [address] Care Team Providers Care Steamer Blocker Name Role Phone Devaughn Macias MD Primary Care Provider Reason for Visit * Reason Comments Hyperlipidemia Hypertension Peripheral Artery Disease 6 mo f/u Encounter Details Date Type Department Care Team (Latest Contact Info) Description 01/31/2020 9:45 AM CDT Telemedicine [facility] Cardiology [address] [place] [address] Andrade Brown MD [address] [address] PAD (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/HCC) (Primary Dx); 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 goal <100; 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; Paroxysmal 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 (CMS/HCC); HTN (hypertension), benign Social History Tobacco Use Types Packs/Day Years Used Date Smoking Tobacco: Former Cigarettes Q uit: 09/28/1978 Smokeless Tobacco: Never Alcohol Use Standard Drinks/Week Comments Yes 0 (1 standard drink = 0.6 oz pur e alcohol) Comments Unknown Sex and Gender Information Value Date Recorded Sex Assigned at Not on file Legal Sex Female 8:30 AM AUTOMOBILE BRAKE BONDER Gender Identity Female 10/06/2021 4:28 PM AUTOMOBILE BRAKE BONDER Sexual Orientation Choose not to disclose 2020 4:28 PM AUTOMOBILE BRAKE BONDER documented as of this encounter Last Filed Vital Signs Vital Sign Reading Time Taken Comments Blood Pressure 130/80 01/31/2020 9:43 AM CDT Pulse 58 01/31/2020 9:43 AM CDT Temperature - - Respiratory Rate - - Oxygen Saturation - - Inhaled Oxygen Concentration - - Weight - - Height - - Body Mass Index - - documented in this encounter Progress Notes * Andrade Brown MD - 01/31/2020 9:45 AM CDT [facility] DATE OF VISIT: 01/31/2020 CHIEF COMPLAINT Chief Complaint Patient presents with ??? Hyperlipidemia ??? Hypertension ??? Peripheral Artery Disease 6 mo f/u HPI Quin Talley is a 84 y.o. female with 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. She was [...] presyncope, paroxysmal nocturnal dyspnea, orthopnea, edema palpitations. Telephone visit 01/31/2020: Patient returns feeling well and denies any chest pain, shortness breath, syncope, presyncope, paroxysmal nocturnal dyspnea, orthopnea, edema or palpitations. No bleeding problems MEDICAL HISTORY Past Medical History: Diagnosis Date ??? Gastroesophageal reflux disease GERD ??? HX OTHER MEDICAL 2006 PAD - non-occl. femoral sclerosis ??? HX OTHER MEDICAL R. knee torn cartlage Social History Tobacco Use ??? Smoking status: Former Smoker Types: Cigarettes Last attempt to quit: 09/28/1978 Years since quittin.3 ??? Smokeless tobacco: Never Used Substance Use Topics ??? Alcohol use: Yes ??? Drug use: No Family History Problem Relation Age of Onset ??? Heart attack Father Myocardial infarction; ??? Cancer Father ??? Unexplained Mother natural causes MEDICATIONS Home Medications HYDROCHLOROTHIAZIDE (HYDRODIURIL) 25 MG TABLET TAKE 1 TABLET BY MOUTH DAILY LOSARTAN (COZAAR) 100 MG TABLET TAKE 1 TABLET BY MOUTH DAILY WARFARIN (COUMADIN) 4 MG TABLET TAKE 1 TABLET BY MOUTH DAILY. GENERIC EQUIVALENT FOR COUMADIN. ALLERGIES No Known Allergies REVIEW OF SYSTEMS Review of Systems Cardiovascular: Negative for chest pain, dyspnea on exertion, irregular heartbeat, leg swelling, near-syncope, orthopnea, palpitations, paroxysmal nocturnal dyspnea and syncope. Hematologic/Lymphatic: Does not bruise/bleed easily. PHYSICAL EXAM Blood pressure 130/80, pulse 58. There is no height or weight on file to calculate BMI. Physical Exam Psychiatric: She has a normal mood and affect. LABS AND OTHER DIAGNOSTIC TESTS Lab Results [...] No results found for: CHOLHDL EKG Echo Carotid artery Dopplers December 2017: Less than 50% bilateral carotid disease ASSESSMENT Diagnoses and all orders for this visit: 1. Hyperlipidemia, unspecified hyperlipidemia type (Primary) Off statin because of her rash 2. Paroxysmal 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 (CMS/HCC) Status post PVI ablation x2 with recent success 3. retirement (current) use of anticoagulants [Z79.01] No bleeding problems 4. PAD (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/HCC) Mild femoral disease 5. 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 goal <100 6. HTN (hypertension), benign At goal 7.. Mild carotid artery disease PLAN/RECOMMENDATIONS She is stable. I recommend continue her current cardiac regimen without change and I will see her back in 6 months or sooner as clinically indicated. Andrade Brown MD, [facility] This was a telemedicine visit with Quin Talley which took place via Telephone. During the visit, I was located [facility] and the patient was located at her home. The session started at 9:48 a.m. and ended at 9:53 a.m.. The patient has been informed that the visit may not be secure and acknowledged the information. I have explained the option of participating in a telephone or video visit during the COVID-19 public health emergency to the patient. After being given an opportunity to ask questions about and discuss this type of visit, the patient verbally consented to proceeding with the telephone / video visit. The patient understands that this service replaces an office visit and they may be billed and/or responsible for any applicable copayments. 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
--- OUTSIDE RECORDS SUMMARY | 2024-10-22 00:28 | XMS_ITS | Encounter Summary ---
Author Organization [facility] Address [address] [place] [address] Care Team Providers Care Green Chain Offbearer Name Role Phone Devaughn Macias MD Primary Care Provider Encounter Details Date Type Department Care Team (Latest Contact Info) Description 12/05/[address] [facility] Cardiology [address] [place] [address] Rosy White RN Atrial fibrillation, unspecified type (CMS/HCC); [facility] 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 Social History Tobacco Use Types Packs/Day Years Used Date Smoking Tobacco: Former Cigarettes Q uit: 09/28/1978 Smokeless Tobacco: Never Alcohol Use Standard Drinks/Week Comments Yes 0 (1 standard drink = 0.6 oz pur e alcohol) Comments Unknown Sex and Gender Information Value Date Recorded Sex Assigned at Not on file Legal Sex Female 8:30 AM CANT GANG SAWYER Gender Identity Female 10/06/2021 4:28 PM CANT GANG SAWYER Sexual Orientation Choose not to disclose 2020 4:28 PM CANT GANG SAWYER documented as of this encounter Plan of Treatment Not on file documented as of this encounter Procedures Procedure Name Priority Date/Time Associated Diagnosis Comments PROTIME-INR Routine 12/05/2020 documented in this encounter Results * (ABNORMAL) Protime-INR (12/05/2020) INR 3.20(A) 0.9 - 1.1 EXTERNAL LAB Blood specimen (specimen) us Historical Provider LAB BLOOD ORDERABLES Noris mauro Result EXTERNAL LAB documented in this encounter Visit Diagnoses Diagnosis Atrial fibrillation, unspecified type (HCC) 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
--- OUTSIDE RECORDS SUMMARY | 2024-10-22 00:28 | XMS_ITS | Encounter Summary ---
Author Organization [facility] Address [address] [place] [address] Care Team Providers Care Certified Personal Finance Counselor Name Role Phone Devaughn Macias MD Primary Care Provider Denis Platt MD Primary Care Provide r Gideon Campbell MD Primary Care Provider [phone] Encounter Details Date Type Department Care Team (Late st Contact Info) Description 06/18/2020 Telephone [facility] [address] [place] [address] Jagdish Ortega RT Social History Tobacco Use Types Packs/Day Years Used Date Smoking Tobacco: Former Cigarettes Q uit: 09/28/1978 Smokeless Tobacco: Never Alcohol Use Standard Drinks/Week Comments Yes 0 (1 standard drink = 0.6 oz pur e alcohol) Comments Unknown Sex and Gender Information Value Date Recorded Sex Assigned at Not on file Legal Sex Female 8:30 AM GLASS CURVATURE GAUGER Gender Identity Female 10/06/2021 4:28 PM GLASS CURVATURE GAUGER Sexual Orientation Choose not to disclose 2020 4:28 PM GLASS CURVATURE GAUGER documented as of this encounter Plan of Treatment Not on file documented as of this encounter Visit Diagnoses Not on filedocumented in this encounter Care Teams Certified Personal Finance Counselor Relationship Specialty Start Date End Date Devaughn Macias MD PCP - General Family Medicine 01/31/20 01/13/22 Denis Platt MD [address] [place] [address] PCP - General Family Medicine 01/14/22 07/18/23 Gideon Campbell MD [address] [address] [place] [id number] PCP - General Family Medicine 07/19/23 documented as of this encounter
--- OUTSIDE RECORDS SUMMARY | 2024-10-22 00:28 | XMS_ITS | Encounter Summary ---
Author Organization [facility] Address [address] [place] [address] Care Team Providers Care Laser Engineer Name Role Phone Devaughn Macias MD Primary Care Provider Encounter Details Date Type Department Care Team (Late st Contact Info) Description 02/08/2020 Telephone [facility] Cardiology [address] [place] [address] Andrade Brown MD [facility] [place] [id number] Social History Tobacco Use Types Packs/Day Years Used Date Smoking Tobacco: Former Cigarettes Q uit: 09/28/1978 Smokeless Tobacco: Never Alcohol Use Standard Drinks/Week Comments Yes 0 (1 standard drink = 0.6 oz pur e alcohol) Comments Unknown Sex and Gender Information Value Date Recorded Sex Assigned at Not on file Legal Sex Female 8:30 AM ESTIMATOR BINDING Gender Identity Female 10/06/2021 4:28 PM ESTIMATOR BINDING Sexual Orientation Choose not to disclose 2020 4:28 PM ESTIMATOR BINDING documented as of this encounter Miscellaneous Notes * Telephone Encounter - Rachel Zhao, RN - 02/08/2020 9:19 AM CDT Called pt back. New standing order for INR faxed to [facility] as requested. * Telephone Encounter - Mandy Zamora - 02/08/2020 9:12 AM CDT Pt called to request a blood work order be faxed to [facility]. 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
--- OUTSIDE RECORDS SUMMARY | 2024-10-22 00:28 | XMS_ITS | Encounter Summary ---
Author Organization [facility] Address [address] [address] Care Team Providers Care Jig Boring Machine Set Up Operator Name Role Phone Devaughn Macias MD Primary Care Provider Reason for Referral * Diagnostic Imaging (Routine) - Closed Specialty Diagnoses / Procedures Referred By Contac t Referred To Contact Diagnoses Left hip pain Primary osteoarthritis of left hip Procedures [place] Fluoro Guided Injection Hip Left Kami Lyons PA Phone: tel: fax: [address] [phone] Referral ID Status Reason Start Date Expiration Date Visits Re quested Visits Authorized [id number] Closed 06/07/2020 07/07/2021 1 1 * Diagnostic Imaging (Routine) - Closed Specialty Diagnoses / Procedures Referred By Contac t Referred To Contact Diagnoses Left hip pain Procedures XR Hip Left 2 or 3 Views Kami Lyons PA Phone: tel: fax: Referral ID Status Reason Start Date Expiration Date Visits Re quested Visits Authorized [id number] Closed 06/07/2020 07/07/2021 1 1 Reason for Visit * Reason Comments Pain Encounter Details Date Type Department Care Team (Late st Contact Info) Description 06/07/2020 1:30 PM CDT Office Visit [facility] Orthopedics and Sports Medicine [address] [place] [address] [place] [phone] [place] [id number] [place] [address] Primary osteoarthritis of left hip (Primary Dx); Left hip pain Social History Tobacco Use Types Packs/Day Years Used Date Smoking Tobacco: Former Cigarettes Q uit: 09/28/1978 Smokeless Tobacco: Never Alcohol Use Standard Drinks/Week Comments Yes 0 (1 standard drink = 0.6 oz pur e alcohol) Comments Unknown Sex and Gender Information Value Date Recorded Sex Assigned at Not on file Legal Sex Female 8:30 AM INSIGHT LEADER Gender Identity Female 10/06/2021 4:28 PM INSIGHT LEADER Sexual Orientation Choose not to disclose 2020 4:28 PM INSIGHT LEADER documented as of this encounter Last Filed Vital Signs Vital Sign Reading Time Taken Comments Blood Pressure - - Pulse 71 06/07/2020 1:14 PM CDT Temperature - - Respiratory Rate - - Oxygen Saturation - - Inhaled Oxygen Concentration - - Weight 87.4 kg (192 lb 9.6 oz) 06/07/2020 1:14 P M CDT Height 165.1 cm (5' 5 ) 06/07/2020 1:14 PM CDT Body Mass Index 32.05 06/07/2020 1:14 PM CDT documented in this encounter Progress Notes * Kami Lyons PA - 06/07/2020 1:30 PM CDT Images from the original note [...] PATIENT VISIT Subjective CHIEF COMPLAINT She had concerns including Pain of the Left Hip. HISTORY OF PRESENT ILLNESS Quin Talley is a pleasant 84 y.o. female who presents today with complaints of left hip pain for the past several years. Her pain is located in her groin and is worse with walking, crossing her left leg over her right, and getting into and out of a car.. She denies any recent injury or trauma. She denies any numbness, tingling, radiculopathy. She has a history A fib and PAD for which she takes Coumadin. She denies history of stroke, seizures, DVT/PE. PAST MEDCIAL HISTORY She has a past medical history of Gastroesophageal reflux disease, OTHER MEDICAL (2005), and OTHER MEDICAL. PAST SURGICAL HISTORY She has a past surgical history that includes Tonsillectomy. MEDICATIONS She has a current medication list [...] and is not hyperactive. Objective PHYSICAL EXAM Pulse 71 Ht 165.1 cm (5' 5 ) Wt 87.4 kg (192 lb 9.6 oz) BMI 32.05 kg/m?? Left hip Inspection Erythema: absent Edema: [...] formation, and bone on bone contact. Assessment/Plan There are no diagnoses linked to this encounter. PLAN I discussed with Ms Talley her condition and treatment options. She has severe osteoarthritis of her left hip. She will likely need a total hip arthroplasty for definitive treatment, however, she would like to begin with conservative management including antiinflammatories, activity modification, and intraarticular steroid injection. I will order an intraarticular steroid injection into her left hip to be done under fluoro at [facility]. She may return to clinic in 3 months for reevaluation. She should call the office should She have any concerns or questions. RACHELLE Sullivan Cosigned by Herber Knott MD at 06/10/2020 3:24 PM CDT documented in this encounter Plan of Treatment Not on file documented as of this encounter Procedures Procedure Name Priority Date/Time Associated Diagnosis Comments XR HIP LEFT 2 OR 3 VIEWS Schedule Routine, Read Routine (OP Routine) 06/07/2020 1:18 PM CDT Left hip pain documented in this encounter Results * FL Fluoro Guided Injection Hip Left (06/26/2020 10:18 AM CDT) Anatomical Region Laterality Modality Hip Left Radio Fluoroscop y 06/26/2020 11:0 8 AM CDT Impressions 06/26/2020 11:10 AM CDT 1. ??Left hip joint injection under fluoroscopic guidance. Electronically signed by: Grant Carlos M.D. Narrative 06/26/2020 11:10 AM CDT EXAMINATION: ??Left hip joint injection under fluoroscopic guidance HISTORY: Left hip osteoarthritis ATTENDING PRESENCE: Dr. Grant Carlos M.D., the attending radiologist, was present from the beginning to the end of the procedure. SEDATION: The patient did not require conscious sedation for the procedure. TECHNIQUE: ??The risks, benefits and alternatives were discussed and informed consent was obtained. ??Prior to beginning the procedure, Star Protocol was performed to confirm the patient's identity and the planned procedure. Sterile barriers used during the procedure included cap, mask, hand hygiene, sterile gloves, and sterile drape. ??Chloraprep was used for cutaneous antisepsis. The patient was placed supine on the fluoroscopy ??table. ??The ipsilateral femoral artery was palpated and marked. The left hip joint was localized with fluoroscopic guidance. ??Local anesthesia was achieved with subcutaneous injection of 1% lidocaine 2 mL. ??A 22-gauge ??needle was then introduced into the joint under fluoroscopic guidance. ??5 mL of a 2:1 mixture of Omnipaque-240 and 0.5% bupivacaine was injected to verify intra-articular position of the needle tip. Subsequently, a 3 mL mixture consisting of Depo-Medrol 80 mg/mL, 1% lidocaine 1 mL, and 1 mL Omnipaque 240 was administered. The needle was removed. ??The skin was cleansed with hydrogen peroxide, and a bandage was placed. ??There were no complications of the procedure. ?? ESTIMATED BLOOD LOSS: None CONDITION: Stable condition. DISCHARGED TO: Home FINDINGS: The fluoroscopy time is 23.2 seconds. ?? Fluoroscopic images confirm intra-articular position of the needle tip. ?? Procedure Note Grant Carlos MD - 06/26/2020 EXAMINATION: Left hip joint injection under fluoroscopic guidance HISTORY: Left hip osteoarthritis ATTENDING PRESENCE: Dr. Grant Carlos M.D., the attending radiologist, was present from the beginning to the end of the procedure. SEDATION: The patient did not require conscious sedation for the procedure. TECHNIQUE: The risks, benefits and alternatives were discussed and informed consent was obtained. Prior to beginning the procedure, Star Protocol was performed to confirm the patient's identity and the planned procedure. Sterile barriers used during the procedure included cap, mask, hand hygiene, sterile gloves, and sterile drape. Chloraprep was used for cutaneous antisepsis. The patient was placed supine on the fluoroscopy table. The ipsilateral femoral artery was palpated and marked. The left hip joint was localized with fluoroscopic guidance. Local anesthesia was achieved with subcutaneous injection of 1% lidocaine 2 mL. A 22-gauge needle was then introduced into the joint under fluoroscopic guidance. 5 mL of a 2:1 mixture of Omnipaque-240 and 0.5% bupivacaine was injected to verify intra-articular position of [...] CONDITION: Stable condition. DISCHARGED TO: Home FINDINGS: The fluoroscopy time is 23.2 seconds. Fluoroscopic images confirm intra-articular position of the needle tip. IMPRESSION: 1. Left hip joint injection under fluoroscopic guidance. Electronically signed by: Grant Carlos M.D. Kami BUSH IMG FLUOROSCOPY PRO CEDURES Final Result * XR Hip Left 2 or 3 [...] Diagnosis Primary osteoarthritis of left hip- Primary Left hip pain Pain in joint, pelvic region and thigh documented in this encounter Care Teams Jig Boring Machine Set Up Operator Relationship Specialty Start Date End Date Devaughn Macias MD PCP - General Family Medicine 01/31/20 01/13/22 documented as of this encounter
--- OUTSIDE RECORDS SUMMARY | 2024-10-22 00:28 | XMS_ITS | Encounter Summary ---
Author Organization [facility] Address [address] [place] [address] Care Team Providers Care Office Inspector Name Role Phone Devaughn Macias MD Primary Care Provider Reason for Referral * Cardiology (Routine) - Closed Specialty Diagnoses / Procedures Referred By Contac t Referred To Contact Diagnoses History of COVID-19 Paroxysmal 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 (CMS/HCC) (HCC) HTN (hypertension), benign Procedures Transthoracic Echo Complete W Doppler/CF Ciarra Fitzpatrick MD [address] [facility] [address] [place] [address] Phone: tel: fax: [facility] Referral ID Status Reason Start Date Expiration Date Visits Re quested Visits Authorized [id number] Closed 02/12/2021 03/14/2022 1 1 Reason for Visit * Reason Comments Atrial Fibrillation Carotid Artery Disease Hypertension 6 mo f/u Encounter Details Date Type Department Care Team (Latest Contact Info) Description 02/12/2021 10:15 AM CDT Office Visit [facility] Cardiology [address] [facility] [address] [place] [address] Ciarra Fitzpatrick MD [address] [place] [address] History of COVID-19 (Primary Dx); [facility] 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; Paroxysmal 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 (CMS/HCC); PAD (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/HCC); HTN (hypertension), benign Social History Tobacco Use Types Packs/Day Years Used Date Smoking Tobacco: Former Cigarettes Q uit: 09/28/1978 Smokeless Tobacco: Never Alcohol Use Standard Drinks/Week Comments Yes 0 (1 standard drink = 0.6 oz pur e alcohol) Comments Unknown Sex and Gender Information Value Date Recorded Sex Assigned at Not on file Legal Sex Female 8:30 AM ADJUNCT INSTRUCTOR CHEMISTRY Gender Identity Female 10/06/2021 4:28 PM ADJUNCT INSTRUCTOR CHEMISTRY Sexual Orientation Choose not to disclose 2020 4:28 PM ADJUNCT INSTRUCTOR CHEMISTRY documented as of this encounter Last Filed Vital Signs Vital Sign Reading Time Taken Comments Blood Pressure 160/72 02/12/2021 10:24 AM CDT Pulse 66 02/12/2021 10:24 AM CDT Temperature - - Respiratory Rate - - Oxygen Saturation 99% 02/12/2021 10:24 AM CDT Inhaled Oxygen Concentration - - Weight 86.6 kg (191 lb) 02/12/2021 10:24 AM CDT Height 165.1 cm (5' 5 ) 02/12/2021 10:24 AM CDT Body Mass Index 31.78 02/12/2021 10:24 AM CDT documented in this encounter Progress Notes * Ciarra Fitzpatrick MD - 02/12/2021 10:15 AM CDT [facility] DATE OF VISIT: 02/12/2021 CHIEF COMPLAINT Chief Complaint Patient presents with ??? Atrial Fibrillation ??? Carotid Artery Disease ??? Hypertension 6 mo f/u SADIE Camacho Mayank is a 85 y.o. female with 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. She was [...] nocturnal dyspnea, orthopnea, edema palpitations. Follow-up note 02/12/2021: Patient returns today feeling well and denies [...] Types: Cigarettes Quit date: 09/28/1978 Years since quittin.4 ??? Smokeless tobacco: Never Used Substance Use Topics ??? Alcohol use: Yes ??? Drug use: No Family History Problem Relation Age of Onset ??? Heart attack Father Myocardial infarction; ??? Cancer Father ??? Unexplained Mother natural causes MEDICATIONS Home Medications HYDROCHLOROTHIAZIDE (HYDRODIURIL) 25 MG TABLET TAKE 1 TABLET BY MOUTH DAILY. LOSARTAN (COZAAR) 100 MG TABLET TAKE 1 TABLET BY MOUTH DAILY. WARFARIN (COUMADIN) 4 MG TABLET TAKE ONE AND ONE-HALF TABLETS BY MOUTH EVERY WEDNESDAY, WEDNESDAY AND ONE TABLET BY MOUTH ALL OTHER DAYS OR DIRECTED ALLERGIES No Known Allergies REVIEW OF SYSTEMS Review of Systems Constitution: Negative for weight gain and weight loss. [...] for environmental allergies. PHYSICAL EXAM Blood pressure 160/72, pulse 66, height 165.1 cm (5' 5 ), weight 86.6 kg (191 lb), SpO2 99 %. Body mass index is 31.78 kg/m??. Physical Exam Constitutional: She is oriented to person, place, and time. She appears well-nourished. HENT: Head: Normocephalic and atraumatic. Nose: Nose normal. Eyes: Conjunctivae and EOM are normal. No scleral icterus. Cardiovascular: Normal rate, regular rhythm, normal heart sounds and intact distal pulses. Exam reveals no gallop and no friction rub. No murmur heard. Pulses: Carotid pulses are on the left side with bruit. Pulmonary/Chest: Effort normal and breath sounds normal. No respiratory distress. She has no wheezes. She has no rales. She exhibits no tenderness. Abdominal: Soft. Bowel sounds are normal. She exhibits no distension. There is no abdominal tenderness. Musculoskeletal: General: Edema present. Normal range of motion. Cervical back: Neck supple. Comments: Trivial lower extremity edema bilaterally Neurological: She is alert and oriented to person, place, and time. Skin: Skin is warm and dry. No rash noted. 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 PAD (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/HCC) Mild femoral disease 5. 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 goal <100 6. HTN (hypertension), benign At goal 7.. Mild carotid artery disease 8. History of COVID PLAN/RECOMMENDATIONS 2D echocardiogram Doppler because of her history of COVID as well as PAF, hypertension Home blood pressure monitoring is encouraged and she will contact us with results She is otherwise stable. I recommend continue her current cardiac regimen without change and I willsee her back in 6 months or sooner as clinically indicated. Low-salt diet Ciarra Fitzpatrick MD, [facility] documented in this encounter Plan of Treatment Not on file documented as of this encounter Results * TRANSTHORACIC ECHO (TTE) COMPLETE W DOPPLER/CF WO CONTRAST (04/02/2021 9:59 AM CDT) Anatomical Region Laterality Modality Ultrasound 04/02/2021 8:42 AM CDT Narrative 04/02/2021 12:28 PM CDT [facility] Cardiology [address], [place] [address] [address] [facility] [address], [place] [address] P:[phone] P:[phone] Echocardiographic Report Patient Name: QUIN HUERTA : 1935 Study Date: 04/02/2021 8:42:16 AM Gender: F Tech: Location: [place] Ref.Provider: CIARRA FITZPATRICK Height(Cm): 165 BSA: 1.94 [...] Interpretation Site: Exam was interpreted at [facility]. Left Ventricle: Normal left ventricular systolic function. [...] Procedure Note Prieto Rowell MD - 04/02/2021 [facility] Cardiology [address], [place] [address] [address] [facility] [address], [place] [address] P:[phone] P:[phone] Echocardiographic Report Patient Name: QUIN HUERTAPatient ID: [id number] : [id number] Date: 04/02/2021 8:42:16 AM Gender: FAccession #: [id number] Tech: GMLocation: [place] Ref.Provider: CIARRA FITZPATRICKHeight(Cm): 165 BSA: 1.94Weight(Kg): 86.64 [...] 0.40 - 0.80 ] m/s MV Decel [id number] [ 150 - 200 ] msec PV Peak Vel1.38 [ 0.40 - 0.80 ] m/s TR Peak Vel2.75 [ 0.40 - 0.80 ] m/s TR Peak PG 30mmHg RVSP38.00 mmHg E'0.09 E/E' 10 Findings: Interpretation Site: Exam was interpreted at [facility]. Left Ventricle: Normal left ventricular systolic function. 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
--- OUTSIDE RECORDS SUMMARY | 2024-10-22 00:28 | XMS_ITS | Encounter Summary ---
Author Organization [facility] Address [address] [place] [address] Care Team Providers Care On Site Nurse Name Role Phone Devaughn Macias MD Primary Care Provider Encounter Details Date Type Department Care Team (Late st Contact Info) Description 06/26/2020 8:15 AM CDT [address] [address] Social History Tobacco Use Types Packs/Day Years Used Date Smoking Tobacco: Former Cigarettes Q uit: 09/28/1978 Smokeless Tobacco: Never Alcohol Use Standard Drinks/Week Comments Yes 0 (1 standard drink = 0.6 oz pur e alcohol) Comments Unknown Sex and Gender Information Value Date Recorded Sex Assigned at Not on file Legal Sex Female 8:30 AM CHALKER SOLES Gender Identity Female 10/06/2021 4:28 PM CHALKER SOLES Sexual Orientation Choose not to disclose 2020 4:28 PM CHALKER SOLES documented as of this encounter Plan of Treatment Not on file documented as of this encounter Visit Diagnoses Not on filedocumented in this encounter Care Teams On Site Nurse Relationship Specialty Start Date End Date Devaughn Macias MD PCP - General Family Medicine 01/31/20 01/13/22 documented as of this encounter
--- OUTSIDE RECORDS SUMMARY | 2024-10-22 00:28 | XMS_ITS | Encounter Summary ---
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 Social History Tobacco Use Types Packs/Day Years Used Date Smoking Tobacco: Former Cigarettes Q uit: 09/28/1978 Smokeless Tobacco: Never Alcohol Use Standard Drinks/Week Comments Yes 0 (1 standard drink = 0.6 oz pur e alcohol) Comments Unknown Sex and Gender Information Value Date Recorded Sex Assigned at Not on file Legal Sex Female 8:30 AM UKRAINIAN FOLK ARTS INSTRUCTOR Gender Identity Female 10/06/2021 4:28 PM UKRAINIAN FOLK ARTS INSTRUCTOR Sexual Orientation Choose not to disclose 2020 4:28 PM UKRAINIAN FOLK ARTS INSTRUCTOR documented as of this encounter Plan of Treatment Not on file documented as of this encounter Procedures Procedure Name Priority Date/Time Associated Diagnosis Comments PROTIME-INR Routine 03/19/2021 documented in this encounter Results * (ABNORMAL) Protime-INR (03/19/2021) INR 2.50(A) 0.9 - 1.1 EXTERNAL LAB Blood specimen (specimen) us Historical Provider LAB BLOOD ORDERABLES Noris mauro Result EXTERNAL LAB documented in this encounter Visit Diagnoses Diagnosis Atrial fibrillation, unspecified type (HCC)- Primary 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
--- OUTSIDE RECORDS SUMMARY | 2024-10-22 00:28 | XMS_ITS | Encounter Summary ---
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 Social History Tobacco Use Types Packs/Day Years Used Date Smoking Tobacco: Former Cigarettes Q uit: 09/28/1978 Smokeless Tobacco: Never Alcohol Use Standard Drinks/Week Comments Yes 0 (1 standard drink = 0.6 oz pur e alcohol) Comments Unknown Sex and Gender Information Value Date Recorded Sex Assigned at Not on file Legal Sex Female 8:30 AM TANK SETTER HELPER Gender Identity Female 10/06/2021 4:28 PM TANK SETTER HELPER Sexual Orientation Choose not to disclose 2020 4:28 PM TANK SETTER HELPER documented as of this encounter Plan of Treatment Not on file documented as of this encounter Procedures Procedure Name Priority Date/Time Associated Diagnosis Comments PROTIME-INR Routine 01/04/2020 documented in this encounter Results * (ABNORMAL) Protime-INR (01/04/2020) INR 2.30(A) 0.9 - 1.1 EXTERNAL LAB Blood specimen (specimen) us Historical Provider LAB BLOOD ORDERABLES Noris mauro Result EXTERNAL LAB documented in this encounter Visit Diagnoses Diagnosis Paroxysmal 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 (CMS/HCC) (HCC) 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
--- OUTSIDE RECORDS SUMMARY | 2024-10-22 00:28 | XMS_ITS | Encounter Summary ---
Author Organization [facility] Address [address] [place] [address] Care Team Providers Care R And D Lab Technician Name Role Phone Devaughn Macias MD Primary Care Provider Reason for Visit * Reason Comments Follow-up Encounter Details Date Type Department Care Team (Latest Contact Info) Description 08/07/2020 10:15 AM CDT Office Visit [facility] Cardiology [address] [place] [address] Andrade Brown MD [facility] [place] [id number] PAD (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/HCC) (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); 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; Paroxysmal atrial [...] on file Legal Sex Female 8:30 AM COMMUNITY RELATIONS SPECIALIST Gender Identity Female 10/06/2021 4:28 PM COMMUNITY RELATIONS SPECIALIST Sexual Orientation Choose not to disclose 2020 4:28 PM COMMUNITY RELATIONS SPECIALIST documented as of this encounter Last Filed Vital Signs Vital Sign Reading Time Taken Comments Blood Pressure 150/76 08/07/2020 11:00 AM CDT Pulse 66 08/07/2020 11:00 AM CDT Temperature - - Respiratory Rate - - Oxygen Saturation 97% 08/07/2020 11:00 AM CDT Inhaled Oxygen Concentration - - Weight 90.7 kg (200 lb) 08/07/2020 11:00 AM CDT Height 165.1 cm (5' 5 ) 08/07/2020 11:00 AM CDT Body Mass Index 33.28 08/07/2020 11:00 AM CDT documented in this encounter Progress Notes * Andrade Brown MD - 08/07/2020 10:15 AM CDT [facility] DATE OF VISIT: 08/07/2020 CHIEF COMPLAINT Chief Complaint Patient presents with ??? Follow-up HPI Quin Talley is a 85 y.o. female with atrial [...] nocturnal dyspnea, orthopnea, edema palpitations. Follow-up note 08/07/2020: Patient returns today feeling well and denies [...] Cigarettes Quit date: 09/28/1978 Years since quittin.8 ??? Smokeless tobacco: Never Used Substance Use [...] MOUTH DAILY. WARFARIN (COUMADIN) 4 MG TABLET 6 mg (4 mg x 1.5) every Mon, Lisbeth; 4 mg (4 mg x 1) all other days ALLERGIES No Known Allergies REVIEW OF SYSTEMS [...] for environmental allergies. PHYSICAL EXAM Blood pressure 150/76, pulse 66, height 165.1 cm (5' 5 ), weight 90.7 kg (200 lb), SpO2 97 %. Body mass index is 33.28 kg/m??. Physical Exam Constitutional: She is oriented to person, place, and time. She appears well-nourished. HENT: Head: Normocephalic and atraumatic. Nose: Nose normal. Eyes: Conjunctivae and EOM are normal. No scleral icterus. Neck: Neck supple. Cardiovascular: Normal rate, regular rhythm, normal heart [...] distension. There is no abdominal tenderness. Musculoskeletal: Normal range of motion. General: Edema present. Comments: Trivial lower extremity edema bilaterally Neurological: [...] PVI ablation x2 with recent success 3. detention (current) use of anticoagulants [Z79.01] No bleeding problems 4. PAD (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/HCC) Mild femoral disease 5. 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 goal <100 6. HTN (hypertension), benign At goal 7.. Mild carotid artery disease PLAN/RECOMMENDATIONS She is stable. I recommend continue her current cardiac regimen without change and I will see her back in 6 months or sooner as clinically indicated. Low-salt diet and home blood pressure monitor Andrade Brown MD, [facility] documented in this encounter Plan of Treatment Not on file documented as of this encounter Visit Diagnoses Diagnosis PAD (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) (HCC)- Primary Unspecified peripheral vascular disease detention 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 Paroxysmal 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 (CMS/HCC) (HCC) Atrial fibrillation HTN (hypertension), benign Essential hypertension, benign documented in this encounter Care Teams R And D Lab Technician Relationship Specialty Start Date End Date Devaughn Macias MD PCP - General Family Medicine 01/31/20 01/13/22 documented as of this encounter
--- OUTSIDE RECORDS SUMMARY | 2024-10-22 00:29 | XMS_ITS | Encounter Summary ---
Author Organization [facility] Care Team Providers Care Dado Operator Name Role Phone Kali Hunt MD Primary Care Provider [phone] Encounter Details Date Type Department Care Team (Latest Contact Info) Description 07/26/2019 Travel Social History Tobacco Use Types Packs/Day Years Used Date Smoking Tobacco: Former Cigarettes Q uit: 09/28/1978 Smokeless Tobacco: Never Alcohol Use Standard Drinks/Week Comments Yes 0 (1 standard drink = 0.6 oz pur e alcohol) Comments Unknown Sex and Gender Information Value Date Recorded Sex Assigned at Not on file Legal Sex Female 8:30 AM LABOR SERVICE REPRESENTATIVE Gender Identity Female 10/06/2021 4:28 PM LABOR SERVICE REPRESENTATIVE Sexual Orientation Choose not to disclose 2020 4:28 PM LABOR SERVICE REPRESENTATIVE documented as of this encounter Plan of Treatment Not on file documented as of this encounter Visit Diagnoses Not on filedocumented in this encounter Care Teams Dado Operator Relationship Specialty Start Date End Date Kali Hunt MD [address] [address] PCP - General Family Medicine 02/08/19 01/30/20 documented as of this encounter
--- OUTSIDE RECORDS SUMMARY | 2024-10-22 00:29 | XMS_ITS | Encounter Summary ---
Author Organization [facility] Address [address] [place] [address] Care Team Providers Care Lead Application Architect Name Role Phone Kali Hunt MD Primary Care Provider Encounter Details Date Type Department Care Team (Latest Contact Info) Description 08/02/2019 Anticoagulation Visit [facility] [address] [place] [phone] Rosy White RN Paroxysmal 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 (CMS/HCC); halfway 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 Social History Tobacco Use Types Packs/Day Years Used Date Smoking Tobacco: Former Cigarettes Q uit: 09/28/1978 Smokeless Tobacco: Never Alcohol Use Standard Drinks/Week Comments Yes 0 (1 standard drink = 0.6 oz pur e alcohol) Comments Unknown Sex and Gender Information Value Date Recorded Sex Assigned at Not on file Legal Sex Female 8:30 AM TUBE FITTER Gender Identity Female 10/06/2021 4:28 PM TUBE FITTER Sexual Orientation Choose not to disclose 2020 4:28 PM TUBE FITTER documented as of this encounter Plan of Treatment Not on file documented as of this encounter Procedures Procedure Name Priority Date/Time Associated Diagnosis Comments PROTIME-INR Routine 08/02/2019 documented in this encounter Results * (ABNORMAL) Protime-INR (08/02/2019) INR 2.10(A) 0.9 - 1.1 EXTERNAL LAB Blood specimen (specimen) us Historical Provider LAB BLOOD ORDERABLES Noris mauro Result EXTERNAL LAB documented in this encounter Visit Diagnoses Diagnosis Paroxysmal 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 (CMS/HCC) (HCC) 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
--- OUTSIDE RECORDS SUMMARY | 2024-10-22 00:29 | XMS_ITS | Encounter Summary ---
Author Organization [facility] Address [address] [place] [address] Care Team Providers Care Optometrist/Practice Owner Name Role Phone Priscilla Barrera MD Primary Care Provider [phone] Reason for Visit * Reason Comments Atrial Fibrillation Encounter Details Date Type Department Care Team (Late st Contact Info) Description 02/23/2018 2:00 PM CDT Office Visit [facility] [address] [place] [address] Kath Byrd, [place] [address] [place] [address] Paroxysmal 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 (CMS/HCC) (Primary Dx); HTN (hypertension), benign; Anticoagulation management encounter Social History Tobacco Use Types Packs/Day Years Used Date Smoking Tobacco: Former Smokeless Tobacco: Never Alcohol Use Standard Drinks/Week Comments Yes 0 (1 standard drink = 0.6 oz pur e alcohol) Comments Unknown Sex and Gender Information Value Date Recorded Sex Assigned at Not on file Legal Sex Female 8:30 AM DOPING SUPERVISOR Gender Identity Female 10/06/2021 4:28 PM DOPING SUPERVISOR Sexual Orientation Choose not to disclose 2020 4:28 PM DOPING SUPERVISOR documented as of this encounter Last Filed Vital Signs Vital Sign Reading Time Taken Comments Blood Pressure 138/78 02/23/2018 2:02 PM CDT Pulse 60 02/23/2018 2:02 PM CDT Temperature - - Respiratory Rate - - Oxygen Saturation - - Inhaled Oxygen Concentration - - Weight 88.6 kg (195 lb 6.4 oz) 02/23/2018 2:02 P M CDT Height 167.6 cm (5' 6 ) 02/23/2018 2:02 PM CDT Body Mass Index 31.54 02/23/2018 2:02 PM CDT documented in this encounter Patient Instructions * Patient Instructions* Aimee Gomez MA - 02/23/2018 1:53 PM CDT Images from the original note were not included. Patient Education A-fib (Atrial Fibrillation) FUR TRAPPER: Atrial fibrillation (a-fib) is an irregular heartbeat. It reduces your heart's ability to pump blood through your body. A-fib may come and go, or it may be a long-term condition. A-fib can cause life-threatening blood clots, stroke, or heart failure. It is important to treat and manage a-fib to help prevent these problems. Common signs and symptoms include the following: ?? A heartbeat that races, pounds, or flutters ?? Weakness, severe tiredness, or confusion ?? Feeling lightheaded, sweaty, dizzy, or faint ?? Shortness of breath or anxiety ?? Chest pain or pressure Call 911 for any of the following: ?? You have any of the following signs of a heart attack: ?? Squeezing, pressure, or pain in your chest that lasts longer than 5 minutes or returns ?? Discomfort or pain in your back, neck, jaw, stomach, or arm ?? Trouble breathing ?? Nausea or vomiting ?? Lightheadedness or a sudden cold sweat, especially with chest pain or trouble breathing ?? You have any of the following signs of a stroke: ?? Numbness or drooping on one side of your face ?? Weakness in an arm or leg ?? Confusion or difficulty speaking ?? Dizziness, a severe headache, or vision loss Seek care immediately if: You have any of the following signs of a blood clot: ?? You feel lightheaded, are short of breath, and have chest pain. ?? You cough up blood. ?? You have swelling, redness, pain, or warmth in your arm or leg. Contact your fit model or healthcare provider if: ?? Your target heart rate is not in the range it should be. ?? You have new or worsening swelling in your legs, feet, ankles, or abdomen. ?? You are short of breath, even at rest. ?? You have questions or concerns about your condition or care. Treatment for A-fib: Conditions that cause a-fib, such as thyroid disease, will be treated. You mayalso need any of the following: ?? Heart medicines help control your heart rate and rhythm. You may need more than one medicine to treat your symptoms. ?? Antiplatelet and blood thinner medicines help prevent blood clots. ?? Cardioversion is a procedure to return your heart rate and rhythm to normal. It can be done using medicines or electric shock. ?? A-fib ablation is a procedure that uses energy to burn a small area of heart tissue. This creates scar tissue and prevents electrical signals that cause a- fib. You may need this procedure more than once. Ask for more information on a- fib ablation. ?? A pacemaker may be inserted into your heart. A pacemaker is a device that controls your heartbeat. A pacemaker may be inserted during an ablation procedure or surgery. Ask your healthcare providerfor more information on pacemakers. ?? Surgery may be needed if other procedures do not work. During surgery your healthcare provider will make cuts in the upper part of your heart. The provider will stitch the cuts together to create scar tissue. The scar tissue will prevent electrical signals that cause a-fib. Manage A-fib: ?? Know your target heart rate. Learn how to take your pulse and monitor your heart rate. ?? Manage other health conditions. This includes high blood pressure, sleep apnea, thyroid disease,diabetes, and other heart conditions. Take medicine as directed and follow your treatment plan. ?? Limit or do not drink alcohol. Alcohol can make a-fib hard to manage. Ask your healthcare provider if it is safe for you to drink alcohol. A drink of alcohol is 12 ounces of beer, 5 ounces of wine, or 1?? ounces of liquor. ?? Do not smoke. Nicotine and other chemicals in cigarettes and cigars can cause heart and lung damage. Ask your healthcare provider for information if you currently smoke and need help to quit. E-cigarettes or smokeless tobacco still contain nicotine. Talk to your healthcare provider before you use these products. ?? Eat heart-healthy foods. Heart healthy foods will help keep your cholesterol low. These include fruits, vegetables, whole-grain breads, low-fat dairy products, beans, lean meats, and fish. Replacebutter and margarine with heart- healthy oils such as olive oil and canola oil. ?? Maintain a healthy weight. Ask your healthcare provider how much you should weigh. Ask him to help you create a weight loss plan if you are overweight. ?? Exercise for 30 minutes most days of the week. Ask your healthcare provider about the best exercise plan for you. Follow up with your fit model as directed: You will need regular blood tests and monitoring. Write down your questions so you remember to ask them during your visits. ?? 2016 [employer]. Information is for End User's use only and may not be sold, redistributed or otherwise used for commercial purposes. All illustrations and images included in CareNotes?? are the copyrighted property of [employer]. or [employer]. The above information is an inpatient nursing aide only. It is not intended as medical advice for individual conditions or treatments. Talk to your doctor, nurse or pharmacist before following any medical regimen to see if it is safe and effective for you. documented in this encounter Progress Notes * Kath Byrd NP - 02/23/2018 2:00 PM CDT [facility] [address] [place] [address], [address] [address] Patient Name: Quin Talley Date of : 1935 Primary Physician: Priscilla Barrera MD This note was dictated with voice-recognition software, and strap stitcher errors may be present. Subjective/Objective Patient ID: Quin Talley is a 82 y.o. female Chief Complaint Atrial Fibrillation HPI Ms. Talley presented to the [facility] on 02/23/2018, for follow-up today for her history of 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. She is an 82-year-old female who has a past medical history PAF, hypertension, dyslipidemia. On 07/23/2016 she underwent radiofrequency catheter ablation of her 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. She was free of atrial arrhythmia for brief time following the procedure but then continued to have 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 on a near daily basis shortly thereafter. When she was seenin December of 2016 options for management were discussed and she was offered repeat ablation. On 01/27/2017 she underwent repeat ablation which included repeat ablation of LSPV/LIPV clarke, RIPV, linearablation of the left atrium, SVT isolation, and focal right atrial tachycardia ablation. She was last seen in August 2017. She denies any recent palpitations, shortness of breath, dizziness, or chest pain. She remains active and feels well. She remains anticoagulated with Coumadin is tolerating well. EKG on my review today demonstrates sinus rhythm (60) with normal QRS duration and QT interval. No Known Allergies Current Outpatient Prescriptions: ??? hydroCHLOROthiazide (HYDRODIURIL) 25 mg tablet, TAKE 1 TABLET BY MOUTH DAILY, Disp: 90 tablet, Rfl: 3 ??? losartan (COZAAR) 100 mg tablet, TAKE 1 TABLET BY MOUTH DAILY, Disp: 90 tablet, Rfl: 2 ??? warfarin (COUMADIN) 4 mg tablet, TAKE 1 TABLET BY MOUTH DAILY, Disp: 90 tablet, Rfl: 0 Past Medical History: Past Medical History: Diagnosis Date ??? Gastroesophageal reflux disease GERD ??? HX OTHER MEDICAL 2006 PAD - non-occl. femoral sclerosis ??? HX OTHER MEDICAL R. knee torn cartlage Family History: Family History Problem Relation Age of Onset ??? Heart attack Father Myocardial infarction; ??? Cancer Father ??? Unexplained Mother natural causes Social History: Social History Social History ??? Marital status: Spouse name: N/A ??? Number of children: N/A ??? Years of education: N/A Occupational History ??? Not on file. Social History Main Topics ??? Smoking status: Former Smoker ??? Smokeless tobacco: Never Used ??? Alcohol use Yes ??? Drug use: No ??? Sexual activity: Not on file Other Topics Concern ??? Not on file Social History Narrative ??? No narrative on file Review of Systems Constitutional: Negative. HENT: Negative. Eyes: Negative. Respiratory: Negative. Cardiovascular: Negative. Gastrointestinal: Negative. Endocrine: Negative. Genitourinary: Negative. Musculoskeletal: Negative. Skin: Positive for rash. Allergic/Immunologic: Negative. Neurological: Negative. Hematological: Negative. Psychiatric/Behavioral: Negative. Breast: Negative. Physical Exam Constitutional: She is oriented to person, place, and time. She appears well- developed and well-nourished. HENT: Head: Normocephalic and atraumatic. Eyes: Conjunctivae and EOM are normal. Neck: Normal range of motion. Neck supple. Cardiovascular: Normal rate and regular rhythm. No murmur heard. Pulmonary/Chest: Effort normal and breath sounds normal. Abdominal: Soft. Bowel sounds are normal. Musculoskeletal: Normal range of motion. Neurological: She is alert and oriented to person, place, and time. Skin: Skin is warm and dry. Psychiatric: She has a normal mood and affect. Her behavior is normal. BP 138/78 (BP Location: Left arm, Patient Position: Sitting) Pulse 60 Ht 167.6 cm (5' 6 ) Wt 88.6 kg (195 lb 6.4 oz) BMI 31.54 kg/m?? Assessment/Plan Diagnoses and all orders for this visit: Paroxysmal 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 (CMS/HCC) (Primary) Assessment & Plan: Post repeat ablation of highly symptomatic paroxysmal [...] an office visit and 12 lead EKG. Orders: - ECG 12 lead HTN (hypertension), benign Anticoagulation management encounter Assessment & Plan: She remains anticoagulated on Coumadin. It is recommended that he remain anticoagulated for thromboprophylaxis.[id number]. Kath Byrd NP 02/23/2018 documented in this encounter Miscellaneous Notes * Assessment & Plan Note - Kath Byrd NP - 02/24/2018 11:07 AM CDT Associated Problem(s): Atrial fibrillation (CMS/HCC) [I48.91] Post repeat ablation of highly symptomatic paroxysmal [...] an office visit and 12 lead EKG. * Assessment & Plan Note - Kath Byrd NP - 02/24/2018 11:07 AM CDT Associated Problem(s): Anticoagulation management encounter She remains anticoagulated on Coumadin. It is recommended that he remain anticoagulated for thromboprophylaxis.[id number]. documented in this encounter Plan of Treatment Not on file documented as of this encounter Procedures Procedure Name Priority Date/Time Associated Diagnosis Comments ECG 12-LEAD Routine 02/23/2018 Paroxysmal 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 (CMS/HCC) documented in this encounter Results * ECG 12 lead (02/23/2018) Kath Byrd NP ECG ORDERABLES Edited Res ult - Final documented in this encounter Visit Diagnoses Diagnosis Paroxysmal 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 (CMS/HCC) (HCC)- Primary Atrial fibrillation HTN (hypertension), benign Essential hypertension, benign Anticoagulation management encounter Encounter for therapeutic drug monitoring documented in this encounter Discontinued Medications Medication Sig Discontinue Reason Start Date End Da te atorvastatin (LIPITOR) 40 mg tablet Take 1 tablet (40 mg total) by mouth daily. Allergic response 02/03/2018 02/23/2018 documented as of this encounter Care Teams Optometrist/Practice Owner Relationship Specialty Start Date End Date Priscilla Barrera MD [place] [address] PCP - General 01/08/17 02/07/19 documented as of this encounter
--- OUTSIDE RECORDS SUMMARY | 2024-10-22 00:29 | XMS_ITS | Encounter Summary ---
Author Organization [facility] Address [address] [place] [address] Care Team Providers Care Press Smith Helper Name Role Phone Priscilla Barrera MD Primary Care Provider [phone] Encounter Details Date Type Department Care Team (Late st Contact Info) Description 04/27/2018 Telephone [facility] [address] [address] [address] [place] [address] Andrade Brown MD [facility] [place] [address] Social History Tobacco Use Types Packs/Day Years Used Date Smoking Tobacco: Former Smokeless Tobacco: Never Alcohol Use Standard Drinks/Week Comments Yes 0 (1 standard drink = 0.6 oz pur e alcohol) Comments Unknown Sex and Gender Information Value Date Recorded Sex Assigned at Not on file Legal Sex Female 8:30 AM CANTEEN OPERATOR Gender Identity Female 10/06/2021 4:28 PM CANTEEN OPERATOR Sexual Orientation Choose not to disclose 2020 4:28 PM CANTEEN OPERATOR documented as of this encounter Miscellaneous Notes * Telephone Encounter - Jacque Herrera RN - 04/27/2018 12:04 PM CDT Called patient with INR result. States that [facility] never received standing order. Order [facility]axed to [facility] [phone]. documented in this encounter Plan of Treatment Not on file documented as of this encounter Visit Diagnoses Not on filedocumented in this encounter Care Teams Press Smith Helper Relationship Specialty Start Date End Date Priscilla Barrera MD [address] [place] [address] PCP - General 01/08/17 02/07/19 documented as of this encounter
--- OUTSIDE RECORDS SUMMARY | 2024-10-22 00:29 | XMS_ITS | Encounter Summary ---
Author Organization [facility] Address [address] [place] [address] Care Team Providers Care Forestry Technical Officer Name Role Phone Priscilla Barrera MD Primary Care Provider [phone] Encounter Details Date Type Department Care Team (Latest Contact Info) Description 09/21/2018 Anticoagulation Visit [facility] [address] [place] [id number] Andrade Brown MD [facility] [place] [address] Paroxysmal 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 (CMS/HCC); detention 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 Social History Tobacco Use Types Packs/Day Years Used Date Smoking Tobacco: Former Smokeless Tobacco: Never Alcohol Use Standard Drinks/Week Comments Yes 0 (1 standard drink = 0.6 oz pur e alcohol) Comments Unknown Sex and Gender Information Value Date Recorded Sex Assigned at Not on file Legal Sex Female 8:30 AM FIELD AUDITOR Gender Identity Female 10/06/2021 4:28 PM FIELD AUDITOR Sexual Orientation Choose not to disclose 2020 4:28 PM FIELD AUDITOR documented as of this encounter Plan of Treatment Not on file documented as of this encounter Procedures Procedure Name Priority Date/Time Associated Diagnosis Comments PROTIME-INR Routine 09/21/2018 documented in this encounter Results * (ABNORMAL) Protime-INR (09/21/2018) INR 2.42(A) 0.9 - 1.1 EXTERNAL LAB Blood specimen (specimen) us Historical Provider LAB BLOOD ORDERABLES Noris mauro Result EXTERNAL LAB documented in this encounter Visit Diagnoses Diagnosis Paroxysmal 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 (CMS/HCC) (HCC) Atrial fibrillation detention 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 documented in this encounter Care Teams Forestry Technical Officer Relationship Specialty Start Date End Date Priscilla Barrera MD [address] [place] [address] PCP - General 01/08/17 02/07/19 documented as of this encounter
--- OUTSIDE RECORDS SUMMARY | 2024-10-22 00:29 | XMS_ITS | Encounter Summary ---
Author Organization [facility] Address [address] [place] [address] Care Team Providers Care Sorter Packer Name Role Phone Kali Hunt MD Primary Care Provider [phone] Encounter Details Date Type Department Care Team (Latest Contact Info) Description 11/29/[address] [facility] [address] [place] [phone] Rosy White RN Paroxysmal 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 (CMS/HCC); senior living 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 Social History Tobacco Use Types Packs/Day Years Used Date Smoking Tobacco: Former Cigarettes Q uit: 09/28/1978 Smokeless Tobacco: Never Alcohol Use Standard Drinks/Week Comments Yes 0 (1 standard drink = 0.6 oz pur e alcohol) Comments Unknown Sex and Gender Information Value Date Recorded Sex Assigned at Not on file Legal Sex Female 8:30 AM SUPERVISOR WATERPROOFING Gender Identity Female 10/06/2021 4:28 PM SUPERVISOR WATERPROOFING Sexual Orientation Choose not to disclose 2020 4:28 PM SUPERVISOR WATERPROOFING documented as of this encounter Plan of Treatment Not on file documented as of this encounter Procedures Procedure Name Priority Date/Time Associated Diagnosis Comments PROTIME-INR Routine 11/29/2019 documented in this encounter Results * (ABNORMAL) Protime-INR (11/29/2019) INR 2.50(A) 0.9 - 1.1 EXTERNAL LAB Blood specimen (specimen) us Historical Provider LAB BLOOD ORDERABLES Noris mauro Result EXTERNAL LAB documented in this encounter Visit Diagnoses Diagnosis Paroxysmal 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 (CMS/HCC) (HCC) Atrial fibrillation senior living 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 documented in this encounter Care Teams Sorter Packer Relationship Specialty Start Date End Date Kali Hunt MD [address] [place] [address] PCP - General Family Medicine 02/08/19 01/30/20 documented as of this encounter
--- OUTSIDE RECORDS SUMMARY | 2024-10-22 00:29 | XMS_ITS | Encounter Summary ---
Author Organization [facility] Address [address] [place] [address] Care Team Providers Care Stock Preparation Supervisor Name Role Phone Kali Hunt MD Primary Care Provider [phone] Reason for Visit * Reason Comments Atrial Fibrillation Encounter Details Date Type Department Care Team ([facility] Contact Info) Description 03/01/2019 11:00 AM CDT Office Visit [facility] [address] [address] [facility] [address] [place] [address] Kath Byrd, RAMONA [address] [facility] [address] [place] [address] Paroxysmal 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 (CMS/HCC) (Primary Dx) Social History Tobacco Use Types Packs/Day Years Used Date Smoking Tobacco: Former Cigarettes Q uit: 09/28/1978 Smokeless Tobacco: Never Alcohol Use Standard Drinks/Week Comments Yes 0 (1 standard drink = 0.6 oz pur e alcohol) Comments Unknown Sex and Gender Information Value Date Recorded Sex Assigned at Not on file Legal Sex Female 8:30 AM WHITE METAL CORROSION PROOFER Gender Identity Female 10/06/2021 4:28 PM WHITE METAL CORROSION PROOFER Sexual Orientation Choose not to disclose 2020 4:28 PM WHITE METAL CORROSION PROOFER documented as of this encounter Last Filed Vital Signs Vital Sign Reading Time Taken Comments Blood Pressure 132/80 03/01/2019 10:20 AM CDT Pulse 57 03/01/2019 10:20 AM CDT Temperature - - Respiratory Rate - - Oxygen Saturation - - Inhaled Oxygen Concentration - - Weight 89.8 kg (198 lb) 03/01/2019 10:20 AM CDT Height 167.6 cm (5' 6 ) 03/01/2019 10:20 AM CDT Body Mass Index 31.96 03/01/2019 10:20 AM CDT documented in this encounter Progress Notes * Kaht Byrd, RETAIL SALES ADVISOR - 03/01/2019 11:00 AM CDT Patient ID: Quin Talley is a 83 y.o. female Chief Complaint Atrial fibrillation HPI Ms. Talley presents to the [facility] on 03/01/2019 for follow-up today for her history of 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. She is an 82-year-old female who has a past medical history PAF, hypertension, dyslipidemia. On 07/23/2016 she underwent radiofrequency catheter ablation of her 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.She was free of atrial arrhythmia for brief time following the procedure but then continued to have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 on a near daily basis shortly thereafter. When she was seen in December of 2016 options for management were discussed and she was offered repeat ablation. On 01/27/2017 she underwent repeat ablation which included repeat ablation of LSPV/LIPV clarke, RIPV, linear ablation of the left atrium, SVT isolation, and focal right atrial tachycardia ablation. She denies any recent palpitations, shortness of breath, dizziness, or chest pain. She remains active and feels well. She remains anticoagulated with Coumadin is tolerating well. EKG on my review today demonstrates sinus rhythm (57) with normal QRS duration and QT interval. Past Medical History: Diagnosis Date ??? Gastroesophageal reflux disease GERD ??? HX OTHER MEDICAL 2006 PAD - non-occl. femoral sclerosis ??? HX OTHER MEDICAL R. knee torn cartla Family History Problem Relation Age of Onset ??? Heart attack Father Myocardial infarction; ??? Cancer Father ??? Unexplained Mother natural causes Social History Tobacco Use ??? Smoking status: Former Smoker Types: Cigarettes Last attempt to quit: 09/28/1978 Years since quittin.4 ??? Smokeless tobacco: Never Used Substance Use Topics ??? Alcohol use: Yes Current Outpatient Medications: ??? hydroCHLOROthiazide (HYDRODIURIL) 25 mg tablet, TAKE 1 TABLET BY MOUTH DAILY, Disp: 90 tablet, Rfl: 0 ??? losartan (COZAAR) 100 mg tablet, TAKE 1 TABLET BY MOUTH DAILY, Disp: 90 tablet, Rfl: 1 ??? warfarin (COUMADIN) 4 mg tablet, TAKE 1 TABLET BY MOUTH DAILY, Disp: 90 tablet, Rfl: 0 Review of Systems Constitutional: Negative. HENT: Negative. Eyes: Negative. Respiratory: Negative. Cardiovascular: Negative. Gastrointestinal: Negative. Endocrine: Negative. Genitourinary: Negative. Skin: Negative. Neurological: Negative. Hematological: Negative. Psychiatric/Behavioral: Negative. Physical Exam Constitutional: No distress. Head: Normocephalic. Nose: Nose normal. Mouth/Throat: Mucous membranes are normal. Eyes: EOM are normal. Neck: Normal range of motion. Cardiovascular: Regular rhythm, S1 normal and S2 normal. Pulmonary/Chest: Effort normal and breath sounds normal. Abdominal: Soft. Normal appearance. Neurological: alert, oriented to person, place, and time and easily aroused. Skin: warm and dry. Psychiatric: normal mood and affect. Musculoskeletal: No joint inflammation Assessment/Plan Diagnoses and all orders for this visit: Paroxysmal 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 (CMS/HCC) (Primary) - ECG 12 lead Impression: 1. Paroxysmal 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. She is status post repeat ablation for her highly symptomatic paroxysmal 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 on 01/27/2017. Since her last office visit she denies any recent episodes of 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. She is currently maintaining sinus rhythm without the use of antiarrhythmic drug therapy. At this time she would prefer to follow up with us as needed and will continue to follow with Dr. Brown with [facility]. 2. Hypertension 3. Long-term use of anticoagulant therapy. She remains anticoagulated on Coumadin. It is recommended that she remain anticoagulated for thromboprophylaxis. Plan: No changes to her medications are made at this office visit She will follow-up with Dr. Brown. She will follow up with us as needed. documented in this encounter Plan of Treatment Not on file documented as of this encounter Procedures Procedure Name Priority Date/Time Associated Diagnosis Comments ECG 12-LEAD Routine 03/01/2019 Paroxysmal 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 (CMS/HCC) documented in this encounter Results * ECG 12 lead (03/01/2019) Kath Byrd RETAIL SALES ADVISOR ECG ORDERABLES Edited Res ult - Final documented in this encounter Visit Diagnoses Diagnosis Paroxysmal 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 (CMS/HCC) (HCC)- Primary Atrial fibrillation documented in this encounter Care Teams Stock Preparation Supervisor Relationship Specialty Start Date End Date Kali Hunt MD [address] [place] [address] PCP - General Family Medicine 02/08/19 01/30/20 documented as of this encounter
--- OUTSIDE RECORDS SUMMARY | 2024-10-22 00:29 | XMS_ITS | Encounter Summary ---
Author Organization [facility] Care Team Providers Care Inspector Assemblies And Installations Name Role Phone Kali Hunt MD Primary Care Provider [phone] Encounter Details Date Type Department Care Team (Latest Contact Info) Description 02/08/2019 Travel Social History Tobacco Use Types Packs/Day Years Used Date Smoking Tobacco: Former Cigarettes Q uit: 09/28/1978 Smokeless Tobacco: Never Alcohol Use Standard Drinks/Week Comments Yes 0 (1 standard drink = 0.6 oz pur e alcohol) Comments Unknown Sex and Gender Information Value Date Recorded Sex Assigned at Not on file Legal Sex Female 8:30 AM SENIOR NET WEB DEVELOPER Gender Identity Female 10/06/2021 4:28 PM SENIOR NET WEB DEVELOPER Sexual Orientation Choose not to disclose 2020 4:28 PM SENIOR NET WEB DEVELOPER documented as of this encounter Plan of Treatment Not on file documented as of this encounter Visit Diagnoses Not on filedocumented in this encounter Care Teams Inspector Assemblies And Installations Relationship Specialty Start Date End Date Kali Hunt MD [address] [address] PCP - General Family Medicine 02/08/19 01/30/20 documented as of this encounter
--- OUTSIDE RECORDS SUMMARY | 2024-10-22 00:29 | XMS_ITS | Encounter Summary ---
Author Organization [facility] Address [address] [place] [address] Care Team Providers Care Parcel Carrier Name Role Phone Kali Hunt MD Primary Care Provider [phone] Encounter Details Date Type Department Care Team (Latest Contact Info) Description 05/17/2019 [facility]ticoagulation Visit [facility] [address] [place] [phone] Andrade Brown MD [address] [place] [address] Paroxysmal 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 (CMS/HCC); [facility] 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 Social History Tobacco Use Types Packs/Day Years Used Date Smoking Tobacco: Former Cigarettes Q uit: 09/28/1978 Smokeless Tobacco: Never Alcohol Use Standard Drinks/Week Comments Yes 0 (1 standard drink = 0.6 oz pur e alcohol) Comments Unknown Sex and Gender Information Value Date Recorded Sex Assigned at Not on file Legal Sex Female 8:30 AM ANODIZING LINE OPERATOR Gender Identity Female 10/06/2021 4:28 PM ANODIZING LINE OPERATOR Sexual Orientation Choose not to disclose 2020 4:28 PM ANODIZING LINE OPERATOR documented as of this encounter Plan of Treatment Not on file documented as of this encounter Procedures Procedure Name Priority Date/Time Associated Diagnosis Comments PROTIME-INR Routine 05/17/2019 documented in this encounter Results * (ABNORMAL) Protime-INR (05/17/2019) INR 2.42(A) 0.9 - 1.1 EXTERNAL LAB Blood specimen (specimen) us [facility] Provider LAB BLOOD ORDERABLES Noris l Result EXTERNAL LAB documented in this encounter Visit Diagnoses Diagnosis Paroxysmal 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 (CMS/HCC) (HCC) Atrial fibrillation [facility] 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 documented in this encounter Care Teams Parcel Carrier Relationship Specialty Start Date End Date Kali Hunt MD [address] [address] PCP - General Family Medicine 02/08/19 01/30/20 documented as of this encounter
--- OUTSIDE RECORDS SUMMARY | 2024-10-22 00:29 | XMS_ITS | Encounter Summary ---
Author Organization [facility] Facility Care Team Providers Care Braiding Operator Name Role Phone Kali Hunt MD Primary Care Provider Encounter Details Date Type Department Care Team (Latest Contact Info) Description 03/01/2019 Travel Social History Tobacco Use Types Packs/Day Years Used Date Smoking Tobacco: Former Cigarettes Q uit: 09/28/1978 Smokeless Tobacco: Never Alcohol Use Standard Drinks/Week Comments Yes 0 (1 standard drink = 0.6 oz pur e alcohol) Comments Unknown Sex and Gender Information Value Date Recorded Sex Assigned at Not on file Legal Sex Female 8:30 AM STULL HEWER Gender Identity Female 10/06/2021 4:28 PM STULL HEWER Sexual Orientation Choose not to disclose 2020 4:28 PM STULL HEWER documented as of this encounter Plan of Treatment Not on file documented as of this encounter Visit Diagnoses Not on filedocumented in this encounter Care Teams Braiding Operator Relationship Specialty Start Date End Date Kali Hunt MD [address] [address] PCP - General Family Medicine 02/08/19 01/30/20 documented as of this encounter
--- OUTSIDE RECORDS SUMMARY | 2024-10-22 00:29 | XMS_ITS | Encounter Summary ---
Author Organization [facility] Address [address] [facility] [address] [place] [address] Care Team Providers Care Certified Bench Jeweler Technician Name Role Phone Priscilla Barrera MD Primary Care Provider [phone] Encounter Details Date Type Department Care Team (Late st Contact Info) Description 04/07/2018 Telephone [facility] [address] [phone] Andrade Brown MD [address] [place], [place] [id number] Social History Tobacco Use Types Packs/Day Years Used Date Smoking Tobacco: Former Smokeless Tobacco: Never Alcohol Use Standard Drinks/Week Comments Yes 0 (1 standard drink = 0.6 oz pur e alcohol) Comments Unknown Sex and Gender Information Value Date Recorded Sex Assigned at Not on file Legal Sex Female 8:30 AM BREAK OUT WORKER Gender Identity Female 10/06/2021 4:28 PM BREAK OUT WORKER Sexual Orientation Choose not to disclose 2020 4:28 PM BREAK OUT WORKER documented as of this encounter Miscellaneous Notes * Telephone Encounter - Nalini Zazueta RN - 04/07/2018 10:01 AM CDT Faxed standing order for PT/INR to [facility]. * Telephone Encounter - Yuedlka Marie - 04/07/2018 9:42 AM CDT Needs new standing orders for blood work sent to [facility] lab. documented in this encounter Plan of Treatment Not on file documented as of this encounter Visit Diagnoses Not on filedocumented in this encounter Care Teams Certified Bench Jeweler Technician Relationship Specialty Start Date End Date Priscilla Barrera MD [address] [place] [address] PCP - General 01/08/17 02/07/19 documented as of this encounter
--- OUTSIDE RECORDS SUMMARY | 2024-10-22 00:29 | XMS_ITS | Encounter Summary ---
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 Social History Tobacco Use Types Packs/Day Years Used Date Smoking Tobacco: Former Smokeless Tobacco: Never Alcohol Use Standard Drinks/Week Comments Yes 0 (1 standard drink = 0.6 oz pur e alcohol) Comments Unknown Sex and Gender Information Value Date Recorded Sex Assigned at Not on file Legal Sex Female 8:30 AM SURVEILLANCE SPECIALIST Gender Identity Female 10/06/2021 4:28 PM SURVEILLANCE SPECIALIST Sexual Orientation Choose not to disclose 2020 4:28 PM SURVEILLANCE SPECIALIST documented as of this encounter Plan of Treatment Not on file documented as of this encounter Procedures Procedure Name Priority Date/Time Associated Diagnosis Comments PROTIME-INR Routine 02/16/2018 documented in this encounter Results * (ABNORMAL) Protime-INR (02/16/2018) INR 2.51(A) 0.9 - 1.1 EXTERNAL LAB Blood specimen (specimen) us Historical Provider LAB BLOOD ORDERABLES Noris mauro Result EXTERNAL LAB documented in this encounter Visit Diagnoses Diagnosis Paroxysmal 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 (CMS/HCC) (HCC) Atrial fibrillation [facility] 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 documented in this encounter Care Teams Guide Tour Relationship Specialty Start Date End Date Priscilla Barrera MD [address] [place] [address] PCP - General 01/08/17 02/07/19 documented as of this encounter
--- OUTSIDE RECORDS SUMMARY | 2024-10-22 00:29 | XMS_ITS | Encounter Summary ---
Author Organization [facility] Address [address] [facility] [address] [place] [address] Care Team Providers Care Track Man Name Role Phone Priscilla Barrera MD Primary Care Provider [phone] Encounter Details Date Type Department Care Team (Latest Contact Info) Description 04/27/2018 Anticoagulation Visit [facility] [address] [facility] [address] [place] [phone] Andrade Brown MD [facility] [place] [address] Paroxysmal 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 (CMS/HCC); [facility] 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 Social History Tobacco Use Types Packs/Day Years Used Date Smoking Tobacco: Former Smokeless Tobacco: Never Alcohol Use Standard Drinks/Week Comments Yes 0 (1 standard drink = 0.6 oz pur e alcohol) Comments Unknown Sex and Gender Information Value Date Recorded Sex Assigned at Not on file Legal Sex Female 8:30 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 ADMIN Gender Identity Female 10/06/2021 4:28 PM MARKETING ADMIN Sexual Orientation Choose not to disclose 2020 4:28 PM MARKETING ADMIN documented as of this encounter Plan of Treatment Not on file documented as of this encounter Procedures Procedure Name Priority Date/Time Associated Diagnosis Comments PROTIME-INR Routine 04/27/2018 documented in this encounter Results * (ABNORMAL) Protime-INR (04/27/2018) INR 2.78(A) 0.9 - 1.1 EXTERNAL LAB Blood specimen (specimen) us Historical Provider LAB BLOOD ORDERABLES Noris mauro Result EXTERNAL LAB documented in this encounter Visit Diagnoses Diagnosis Paroxysmal 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 (CMS/HCC) (HCC) Atrial fibrillation [facility] 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 documented in this encounter Care Teams Track Man Relationship Specialty Start Date End Date Priscilla Barrera MD [address] [place] [address] PCP - General 01/08/17 02/07/19 documented as of this encounter
--- OUTSIDE RECORDS SUMMARY | 2024-10-22 00:29 | XMS_ITS | Encounter Summary ---
Author Organization [facility] Address [address] [facility] [address] [place] [address] Care Team Providers Care Forming And Assembling Supervisor Name Role Phone Kali Hunt MD Primary Care Provider [phone] Devaughn Macias MD Primary Care Provider Encounter Details Date Type Department Care Team (Late st Contact Info) Description 10/18/2019 Orders Only [facility] [address] [place] [address] Scanning, Provider Social History Tobacco Use Types Packs/Day Years Used Date Smoking Tobacco: Former Cigarettes Q uit: 09/28/1978 Smokeless Tobacco: Never Alcohol Use Standard Drinks/Week Comments Yes 0 (1 standard drink = 0.6 oz pur e alcohol) Comments Unknown Sex and Gender Information Value Date Recorded Sex Assigned at Not on file Legal Sex Female 8:30 AM INDUSTRIAL HYGENIST Gender Identity Female 10/06/2021 4:28 PM INDUSTRIAL HYGENIST Sexual Orientation Choose not to disclose 2020 4:28 PM INDUSTRIAL HYGENIST documented as of this encounter Plan of Treatment Not on file documented as of this encounter Procedures Procedure Name Priority Date/Time Associated Diagnosis Comments SCAN - LABS 10/18/2019 documented in this encounter Results * SCAN - LABS (10/18/2019) us Provider Scanning Final Result documented in this encounter Visit Diagnoses Not on filedocumented in this encounter Care Teams Forming And Assembling Supervisor Relationship Specialty Start Date End Date Kali Hunt MD [address] [place] [address] PCP - General Family Medicine 02/08/19 01/30/20 Devaughn Macias MD [address] [place] [address] PCP - General Family Medicine 01/31/20 01/13/22 documented as of this encounter
--- OUTSIDE RECORDS SUMMARY | 2024-10-22 00:29 | XMS_ITS | Encounter Summary ---
Author Organization [facility] Address [address] [facility] [address] [place] [address] Care Team Providers Care Coal Bagger Name Role Phone Priscilla Barrera MD Primary Care Provider [phone] Encounter Details Date Type Department Care Team (Latest Contact Info) Description 01/18/2019 Anticoagulation Visit [facility] [address] [facility] [address] [place] [phone] Andrade Brown MD [facility] [place] [address] Paroxysmal 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 (CMS/HCC); long-term 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 Social History Tobacco Use Types Packs/Day Years Used Date Smoking Tobacco: Former Smokeless Tobacco: Never Alcohol Use Standard Drinks/Week Comments Yes 0 (1 standard drink = 0.6 oz pur e alcohol) Comments Unknown Sex and Gender Information Value Date Recorded Sex Assigned at Not on file Legal Sex Female 8:30 AM ELECTRONICS TECHNICIAN Gender Identity Female 10/06/2021 4:28 PM ELECTRONICS TECHNICIAN Sexual Orientation Choose not to disclose 2020 4:28 PM ELECTRONICS TECHNICIAN documented as of this encounter Plan of Treatment Not on file documented as of this encounter Procedures Procedure Name Priority Date/Time Associated Diagnosis Comments PROTIME-INR Routine 01/18/2019 documented in this encounter Results * (ABNORMAL) Protime-INR (01/18/2019) INR 2.06(A) 0.9 - 1.1 EXTERNAL LAB Blood specimen (specimen) us Historical Provider LAB BLOOD ORDERABLES Noris mauro Result EXTERNAL LAB documented in this encounter Visit Diagnoses Diagnosis Paroxysmal 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 (CMS/HCC) (HCC) Atrial fibrillation long-term 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 documented in this encounter Care Teams Coal Bagger Relationship Specialty Start Date End Date Priscilla Barrera MD [address] [place] [address] PCP - General 01/08/17 02/07/19 documented as of this encounter
--- OUTSIDE RECORDS SUMMARY | 2024-10-22 00:29 | XMS_ITS | Encounter Summary ---
Author Organization [facility] Address [address] [facility] [address] [place] [address] Care Team Providers Care Legal Contracts Specialist Name Role Phone Kali Hunt MD Primary Care Provider Reason for Visit * Reason Comments Atrial Fibrillation Peripheral Artery Disease Hypertension Hyperlipidemia 6 mo f/u Encounter Details Date Type Department Care Team (Latest Contact Info) Description 07/26/2019 11:30 AM CDT Office Visit [facility] [address] [facility] [address] [place] [address] Andrade Brown MD [address] [address] 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 goal <100 (Primary Dx); 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; PAD (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/HCC); Paroxysmal 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 (CMS/HCC) Social History Tobacco Use Types Packs/Day Years Used Date Smoking Tobacco: Former Cigarettes Q uit: 09/28/1978 Smokeless Tobacco: Never Alcohol Use Standard Drinks/Week Comments Yes 0 (1 standard drink = 0.6 oz pur e alcohol) Comments Unknown Sex and Gender Information Value Date Recorded Sex Assigned at Not on file Legal Sex Female 8:30 AM CLAY PRESS OPERATOR Gender Identity Female 10/06/2021 4:28 PM CLAY PRESS OPERATOR Sexual Orientation Choose not to disclose 2020 4:28 PM CLAY PRESS OPERATOR documented as of this encounter Last Filed Vital Signs Vital Sign Reading Time Taken Comments Blood Pressure 126/80 07/26/2019 11:33 AM CDT Pulse 53 07/26/2019 11:33 AM CDT Temperature - - Respiratory Rate - - Oxygen Saturation - - Inhaled Oxygen Concentration - - Weight 87.1 kg (192 lb) 07/26/2019 11:33 AM CDT Height 161.9 cm (5' 3.75 ) 07/26/2019 11:33 AM C DT Body Mass Index 33.22 07/26/2019 11:33 AM CDT documented in this encounter Progress Notes * Andrade Brown MD - 07/26/2019 11:30 AM CDT [facility] DATE OF VISIT: 07/26/2019 CHIEF COMPLAINT Chief Complaint Patient presents with ??? Atrial Fibrillation ??? Peripheral Artery Disease ??? Hypertension ??? Hyperlipidemia 6 mo f/u HPI Quin Talley is a 83 y.o. female with 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. She was [...] nocturnal dyspnea, orthopnea, edema palpitations. Follow-up note 07/26/2019: Patient returns today feeling well and denies [...] Last attempt to quit: 09/28/1978 Years since quittin.8 ??? Smokeless tobacco: [...] MOUTH DAILY WARFARIN (COUMADIN) 4 MG TABLET Take 1 tablet (4 mg total) by [...] cold intolerance, heat intolerance and polyuria. Hematologic/Lymphatic: Does not bruise/bleed easily. Skin: Negative for color change, itching [...] for environmental allergies. PHYSICAL EXAM Blood pressure 126/80, pulse 53, height 161.9 cm (5' 3.75 ), weight 87.1 kg (192 lb), head circumference 98 cm (38.58 ). Body mass index is 33.22 kg/m??. Physical Exam Constitutional: She is oriented [...] She exhibits no distension. There is no tenderness. Musculoskeletal: Normal range of motion. General: No edema. Neurological: She is alert and oriented to [...] PVI ablation x2 with recent success 3. skilled nursing (current) use of anticoagulants [Z79.01] No bleeding problems 4. PAD (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/HCC) Mild femoral disease 5. 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 goal <100 6. HTN (hypertension), benign At goal 7.. Mild carotid artery disease PLAN/RECOMMENDATIONS She is stable. I recommend continue her current cardiac regimen without change and I will see her back in 6 months or sooner as clinically indicated. Andrade Brown MD, [facility] documented in this encounter Plan of Treatment Not on file documented as of this encounter Visit Diagnoses Diagnosis 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 goal <100- Primary Other and unspecified hyperlipidemia skilled nursing 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 PAD (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) (HCC) Unspecified peripheral vascular disease Paroxysmal 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 (CMS/HCC) (HCC) Atrial fibrillation documented in this encounter Care Teams Legal Contracts Specialist Relationship Specialty Start Date End Date Kali Hunt MD [address] [place] [address] PCP - General Family Medicine 02/08/19 01/30/20 documented as of this encounter
--- OUTSIDE RECORDS SUMMARY | 2024-10-22 00:29 | XMS_ITS | Encounter Summary ---
Author Organization [facility] Address [address] [facility] [place] [address] Care Team Providers Care City Carrier Assistant Name Role Phone Priscilla Barrera MD Primary Care Provider Reason for Visit * Reason Comments Atrial Fibrillation Peripheral Artery Disease Hypertension Hyperlipidemia Encounter Details Date Type Department Care Team (Latest Contact Info) Description 04/20/2018 9:30 AM CDT Office Visit [facility] [address] [facility] [address] [place] [address] Andrade Brown MD [facility] [place] [id number] HTN (hypertension), benign (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); 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; PAD (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) ([facility]) Social History Tobacco Use Types Packs/Day Years Used Date Smoking Tobacco: Former Smokeless Tobacco: Never Alcohol Use Standard Drinks/Week Comments Yes 0 (1 standard drink = 0.6 oz pur e alcohol) Comments Unknown Sex and Gender Information Value Date Recorded Sex Assigned at Not on file Legal Sex Female 8:30 AM METAL BUGGY OPERATOR Gender Identity Female 10/06/2021 4:28 PM METAL BUGGY OPERATOR Sexual Orientation Choose not to disclose 2020 4:28 PM METAL BUGGY OPERATOR documented as of this encounter Last Filed Vital Signs Vital Sign Reading Time Taken Comments Blood Pressure 138/68 04/20/2018 10:21 AM CDT Pulse 64 04/20/2018 10:21 AM CDT Temperature - - Respiratory Rate - - Oxygen Saturation 97% 04/20/2018 10:21 AM CDT Inhaled Oxygen Concentration - - Weight 87.5 kg (193 lb) 04/20/2018 10:21 AM CDT Height 167.6 cm (5' 6 ) 04/20/2018 10:21 AM CDT Body Mass Index 31.15 04/20/2018 10:21 AM CDT documented in this encounter Progress Notes * Andrade Brown MD - 04/20/2018 9:30 AM CDT [facility] DATE OF VISIT: 04/20/2018 CHIEF COMPLAINT Chief Complaint Patient presents with ??? Atrial Fibrillation ??? Peripheral Artery Disease ??? Hypertension ??? Hyperlipidemia HPI Quin Talley is a 82 y.o. female with 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. She was [...] nocturnal dyspnea, orthopnea, edema palpitations. Follow-up note 04/20/2018: Patient returns today feeling well and denies any chest pain, shortness breath, syncope, presyncope, paroxysmal nocturnal dyspnea, orthopnea, edema or palpitations. MEDICAL HISTORY Past Medical History: Diagnosis Date ??? Gastroesophageal reflux disease GERD ??? HX OTHER MEDICAL 2006 PAD - non-occl. femoral sclerosis ??? HX OTHER MEDICAL R. knee torn cartlage Social History Substance Use Topics ??? Smoking status: Former Smoker ??? Smokeless tobacco: Never Used ??? Alcohol use Yes Family History Problem Relation Age of Onset ??? Heart attack Father Myocardial infarction; ??? Cancer Father ??? Unexplained Mother natural causes MEDICATIONS Home Medications HYDROCHLOROTHIAZIDE (HYDRODIURIL) 25 MG TABLET TAKE 1 TABLET BY MOUTH DAILY LOSARTAN (COZAAR) 100 MG TABLET TAKE 1 TABLET BY MOUTH DAILY WARFARIN (COUMADIN) 4 MG TABLET TAKE 1 TABLET BY MOUTH DAILY ALLERGIES No Known Allergies REVIEW OF SYSTEMS [...] intolerance and polyuria. Hematologic/Lymphatic: Bruises/bleeds easily. Skin: Positive for rash. Negative for color change and itching. Musculoskeletal: Positive for joint pain. Negative for [...] for environmental allergies. PHYSICAL EXAM Blood pressure 138/68, pulse 64, height 167.6 cm (5' 6 ), weight 87.5 kg (193 lb), SpO2 97 %. Body mass index is 31.15 kg/m??. Physical Exam Constitutional: She is oriented [...] no tenderness. Musculoskeletal: Normal range of motion. She exhibits no edema. Neurological: She is alert and oriented to person, place, and time. Skin: Skin is warm and dry. Rash noted. Psychiatric: She has a normal mood [...] visit: 1. Hyperlipidemia, unspecified hyperlipidemia type (Primary) Rash which she thinks is related to her statin 2. 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 PAD (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/HCC) Mild femoral disease 5. 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 goal <100 6. HTN (hypertension), benign At goal 7.. Mild carotid artery disease PLAN/RECOMMENDATIONS 1. Stop simvastatin because of her rash. 2. 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
--- OUTSIDE RECORDS SUMMARY | 2024-10-22 00:29 | XMS_ITS | Encounter Summary ---
Author Organization [facility] Address [address] [facility] [address] [place] [address] Care Team Providers Care Gis Scientist Name Role Phone Priscilla Barrera MD Primary Care Provider [phone] Encounter Details Date Type Department Care Team (Late st Contact Info) Description 04/28/2018 Orders Only [facility] [address] [facility] [address] [place] [phone] Provider, MD Peggy [address] [place] [address] Social History Tobacco Use Types Packs/Day Years Used Date Smoking Tobacco: Former Smokeless Tobacco: Never Alcohol Use Standard Drinks/Week Comments Yes 0 (1 standard drink = 0.6 oz pur e alcohol) Comments Unknown Sex and Gender Information Value Date Recorded Sex Assigned at Not on file Legal Sex Female 8:30 AM THERAPEUTIC RECREATION DIRECTOR Gender Identity Female 10/06/2021 4:28 PM THERAPEUTIC RECREATION DIRECTOR Sexual Orientation Choose not to disclose 2020 4:28 PM THERAPEUTIC RECREATION DIRECTOR documented as of this encounter Plan of Treatment Not on file documented as of this encounter Procedures Procedure Name Priority Date/Time Associated Diagnosis Comments XR BONE AGE STUDY Schedule Routine, Re ad Routine (OP Routine) 04/27/2018 documented in this encounter Results * XR Bone Age Study (04/27/2018) Anatomical Region Laterality Modality Upper Extremities, Shoulder, Upper Arm, Elbow, Forearm, Wrist, Hand N/A Radiographic Imaging Historical Provider MD RODRIGUEZ XR PROCEDURES Final R esult documented in this encounter Visit Diagnoses Not on filedocumented in this encounter Care Teams Gis Scientist Relationship Specialty Start Date End Date Priscilla Barrera MD [facility] [place] [address] PCP - General 01/08/17 02/07/19 documented as of this encounter
--- OUTSIDE RECORDS SUMMARY | 2024-10-22 00:29 | XMS_ITS | Encounter Summary ---
Author Organization [facility] Address [address] [facility] [address] [place] [address] Care Team Providers Care Dopeman Name Role Phone Kali Hunt MD Primary Care Provider [phone] Encounter Details Date Type Department Care Team (Latest Contact Info) Description 04/12/2019 Anticoagulation Visit [facility] [address] [place] [address] Andrade Brown MD [address] [place] [address] Paroxysmal 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 (CMS/HCC); long-term current use [...] on file Legal Sex Female 8:30 AM PERSONAL SECURITY SPECIALIST Gender Identity Female 10/06/2021 4:28 PM PERSONAL SECURITY SPECIALIST Sexual Orientation Choose not to disclose 2020 4:28 PM PERSONAL SECURITY SPECIALIST documented as of this encounter Plan of Treatment Not on file documented as of this encounter Procedures Procedure Name Priority Date/Time Associated Diagnosis Comments PROTIME-INR Routine 04/12/2019 documented in this encounter Results * (ABNORMAL) Protime-INR (04/12/2019) INR 2.50(A) 0.9 - 1.1 EXTERNAL LAB Blood specimen (specimen) us [facility] Provider LAB BLOOD ORDERABLES Noris l Result EXTERNAL LAB documented in this encounter Visit Diagnoses Diagnosis Paroxysmal 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 (CMS/HCC) (HCC) Atrial fibrillation long-term 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 documented in this encounter Care Teams Dopeman Relationship Specialty Start Date End Date Kali Hunt MD [address] [address] PCP - General Family Medicine 02/08/19 01/30/20 documented as of this encounter
--- OUTSIDE RECORDS SUMMARY | 2024-10-22 00:29 | XMS_ITS | Encounter Summary ---
Author Organization [facility] Address [address] [facility] [address] [place] [address] Care Team Providers Care Self Propelled Hot Mix Roller Operator Name Role Phone Kali Hunt MD Primary Care Provider [phone] Reason for Visit * Reason Comments Atrial Fibrillation Hyperlipidemia Peripheral Artery Disease Carotid Artery Disease 6 mo f/u Encounter Details Date Type Department Care Team (Latest Contact Info) Description 02/08/2019 10:15 AM CDT Office Visit [facility] [address] [facility] [address] [place] [address] Andrade Brown MD [facility] [address] PAD (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/HCC) (Primary Dx); Paroxysmal 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 (CMS/HCC); HTN (hypertension), benign; retirement 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; 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 goal <100 Social History Tobacco Use Types Packs/Day Years Used Date Smoking Tobacco: Former Cigarettes Q uit: 09/28/1978 Smokeless Tobacco: Never Alcohol Use Standard Drinks/Week Comments Yes 0 (1 standard drink = 0.6 oz pur e alcohol) Comments Unknown Sex and Gender Information Value Date Recorded Sex Assigned at Not on file Legal Sex Female 8:30 AM PIPE FITTER SUPERVISOR MAINTENANCE Gender Identity Female 10/06/2021 4:28 PM PIPE FITTER SUPERVISOR MAINTENANCE Sexual Orientation Choose not to disclose 2020 4:28 PM PIPE FITTER SUPERVISOR MAINTENANCE documented as of this encounter Last Filed Vital Signs Vital Sign Reading Time Taken Comments Blood Pressure 130/74 02/08/2019 10:28 AM CDT Pulse 55 02/08/2019 10:28 AM CDT Temperature - - Respiratory Rate - - Oxygen Saturation 98% 02/08/2019 10:28 AM CDT Inhaled Oxygen Concentration - - Weight 89.8 kg (198 lb) 02/08/2019 10:28 AM CDT Height 167.6 cm (5' 6 ) 02/08/2019 10:28 AM CDT Body Mass Index 31.96 02/08/2019 10:28 AM CDT documented in this encounter Progress Notes * Andrade Brown MD - 02/08/2019 10:15 AM CDT [facility] DATE OF VISIT: 02/08/2019 CHIEF COMPLAINT Chief Complaint Patient presents with ??? Atrial Fibrillation ??? Hyperlipidemia ??? Peripheral Artery Disease ??? Carotid Artery Disease 6 mo f/u HPI Quin [...] nocturnal dyspnea, orthopnea, edema palpitations. Follow-up note 02/08/2019: Patient returns today feeling well and denies [...] for environmental allergies. PHYSICAL EXAM Blood pressure 130/74, pulse 55, height 167.6 cm (5' 6 ), weight 89.8 kg (198 lb), SpO2 98 %. Body mass index is 31.96 kg/m??. Physical Exam Constitutional: She is oriented [...] sooner as clinically indicated. Andrade Brown MD, [facility] documented in this encounter Plan of Treatment Not on file documented as of this encounter Visit Diagnoses Diagnosis PAD (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) (HCC)- Primary Unspecified peripheral vascular disease Paroxysmal 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 (CMS/HCC) (HCC) Atrial fibrillation HTN (hypertension), benign Essential hypertension, benign skid [address] man 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 goal <100 Other and unspecified hyperlipidemia documented in this encounter Discontinued Medications Medication Sig Discontinue Reason Start Date End Da te warfarin (COUMADIN) 4 mg tablet TAKE 1 TABLET BY MOUTH DAILY Duplicate order 01/30/2019 02/08/2019 documented as of this encounter Care Teams Self Propelled Hot Mix Roller Operator Relationship Specialty Start Date End Date Kali Hunt MD [address] [place] [address] PCP - General Family Medicine 02/08/19 01/30/20 documented as of this encounter
--- OUTSIDE RECORDS SUMMARY | 2024-10-22 00:29 | XMS_ITS | Encounter Summary ---
Author Organization [facility] Address [address] [facility] [address] [place] [address] Care Team Providers Care Quality Facilitator Name Role Phone Priscilla Barrera MD Primary Care Provider [phone] Encounter Details Date Type Department Care Team (Latest Contact Info) Description 11/02/2018 Anticoagulation Visit [facility] [address] [facility] [address] [place] [phone] Andrade Brown MD [facility] [place] [address] Paroxysmal 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 (CMS/HCC); senior living 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 Social History Tobacco Use Types Packs/Day Years Used Date Smoking Tobacco: Former Smokeless Tobacco: Never Alcohol Use Standard Drinks/Week Comments Yes 0 (1 standard drink = 0.6 oz pur e alcohol) Comments Unknown Sex and Gender Information Value Date Recorded Sex Assigned at Not on file Legal Sex Female 8:30 AM PUBLIC RELATIONS Gender Identity Female 10/06/2021 4:28 PM PUBLIC RELATIONS Sexual Orientation Choose not to disclose 2020 4:28 PM PUBLIC RELATIONS documented as of this encounter Plan of Treatment Not on file documented as of this encounter Procedures Procedure Name Priority Date/Time Associated Diagnosis Comments PROTIME-INR Routine 11/02/2018 documented in this encounter Results * (ABNORMAL) Protime-INR (11/02/2018) INR 1.58(A) 0.9 - 1.1 EXTERNAL LAB Blood specimen (specimen) us Historical Provider LAB BLOOD ORDERABLES Noris mauro Result EXTERNAL LAB documented in this encounter Visit Diagnoses Diagnosis Paroxysmal 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 (CMS/HCC) (HCC) Atrial fibrillation senior living 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 documented in this encounter Care Teams Quality Facilitator Relationship Specialty Start Date End Date Priscilla Barrera MD [address] [place] [address] PCP - General 01/08/17 02/07/19 documented as of this encounter
--- OUTSIDE RECORDS SUMMARY | 2024-10-22 00:29 | XMS_ITS | Encounter Summary ---
Author Organization [facility] Address [address] [facility] [address] [place] [address] Care Team Providers Care Belt Machine Operator Name Role Phone Kali Hunt MD Primary Care Provider [phone] Encounter Details Date Type Department Care Team (Late st Contact Info) Description 04/25/2019 Telephone [facility] [address] [facility] [address] [place] [address] Andrade Brown MD [facility] [place] [id number] Social History Tobacco Use Types Packs/Day Years Used Date Smoking Tobacco: Former Cigarettes Q uit: 09/28/1978 Smokeless Tobacco: Never Alcohol Use Standard Drinks/Week Comments Yes 0 (1 standard drink = 0.6 oz pur e alcohol) Comments Unknown Sex and Gender Information Value Date Recorded Sex Assigned at Not on file Legal Sex Female 8:30 AM STATE ARCHIVIST Gender Identity Female 10/06/2021 4:28 PM STATE ARCHIVIST Sexual Orientation Choose not to disclose 2020 4:28 PM STATE ARCHIVIST documented as of this encounter Ordered Prescriptions Prescription Sig Dispense Quantity Refills Last Filled Start Date End Date warfarin (COUMADIN) 4 mg tablet Take 1 tablet (4 mg total) by mouth daily 90 tablet 04/25/2019 07/12/2019 documented in this encounter Miscellaneous Notes * Telephone Encounter - Mellissa Ross MA - 04/25/2019 11:18 AM CDT Refills approved and sent to pharmacy as requested. * Telephone Encounter - Yudelka Marie - 04/25/2019 11:11 AM CDT Erik hernandez called for a 90 day prescription of warfarin 4 mg tabs. Gave reference #[id number] documented in this encounter Plan of Treatment Not on file documented as of this encounter Visit Diagnoses Not on filedocumented in this encounter Discontinued Medications Medication Sig Discontinue Reason Start Date End Da te warfarin (COUMADIN) 4 mg tablet Take 1 tablet (4 mg total) by mouth as directed Duplicate order 04/24/2019 04/25/2019 warfarin (COUMADIN) 4 mg tablet TAKE 1 TABLET BY MOUTH DAILY Reorder 06/14/2018 04/25/2019 documented as of this encounter Care Teams Belt Machine Operator Relationship Specialty Start Date End Date Kali Hunt MD [address] [place] [address] PCP - General Family Medicine 02/08/19 01/30/20 documented as of this encounter
--- OUTSIDE RECORDS SUMMARY | 2024-10-22 00:29 | XMS_ITS | Encounter Summary ---
Author Organization [facility] Address [address] [facility] [address] [place] [address] Care Team Providers Care Marketing Agent Name Role Phone Kali Hunt MD Primary Care Provider [phone] Encounter Details Date Type Department Care Team (Latest Contact Info) Description 03/01/2019 Anticoagulation Visit [facility] [address] [place] [address] Andrade Brown MD [address] [place] [address] Paroxysmal 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 (CMS/HCC); [facility] 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 Social History Tobacco Use Types Packs/Day Years Used Date Smoking Tobacco: Former Cigarettes Q uit: 09/28/1978 Smokeless Tobacco: Never Alcohol Use Standard Drinks/Week Comments Yes 0 (1 standard drink = 0.6 oz pur e alcohol) Comments Unknown Sex and Gender Information Value Date Recorded Sex Assigned at Not on file Legal Sex Female 8:30 AM TREATMENT SUPERVISOR Gender Identity Female 10/06/2021 4:28 PM TREATMENT SUPERVISOR Sexual Orientation Choose not to disclose 2020 4:28 PM TREATMENT SUPERVISOR documented as of this encounter Plan of Treatment Not on file documented as of this encounter Procedures Procedure Name Priority Date/Time Associated Diagnosis Comments PROTIME-INR Routine 03/01/2019 documented in this encounter Results * (ABNORMAL) Protime-INR (03/01/2019) INR 2.14(A) 0.9 - 1.1 EXTERNAL LAB Blood specimen (specimen) us Historical Provider LAB BLOOD ORDERABLES Noris l Result EXTERNAL LAB documented in this encounter Visit Diagnoses Diagnosis Paroxysmal 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 (CMS/HCC) (HCC) Atrial fibrillation [facility] 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 documented in this encounter Care Teams Marketing Agent Relationship Specialty Start Date End Date Kali Hunt MD [address] [address] PCP - General Family Medicine 02/08/19 01/30/20 documented as of this encounter
--- OUTSIDE RECORDS SUMMARY | 2024-10-22 00:29 | XMS_ITS | Encounter Summary ---
Author Organization [facility] Address [address] [facility] [address] [place] [address] Care Team Providers Care Credit Union Field Examiner Name Role Phone Kali Hunt MD Primary Care Provider [phone] Encounter Details Date Type Department Care Team (Latest Contact Info) Description 06/28/2019 Anticoagulation Visit [facility] [address] [place] [phone] Andrade Brown MD [address] [place] [address] Paroxysmal 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 (CMS/HCC); group home 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 Social History Tobacco Use Types Packs/Day Years Used Date Smoking Tobacco: Former Cigarettes Q uit: 09/28/1978 Smokeless Tobacco: Never Alcohol Use Standard Drinks/Week Comments Yes 0 (1 standard drink = 0.6 oz pur e alcohol) Comments Unknown Sex and Gender Information Value Date Recorded Sex Assigned at Not on file Legal Sex Female 8:30 AM SOFTWARE LICENSING EXECUTIVE Gender Identity Female 10/06/2021 4:28 PM SOFTWARE LICENSING EXECUTIVE Sexual Orientation Choose not to disclose 2020 4:28 PM SOFTWARE LICENSING EXECUTIVE documented as of this encounter Plan of Treatment Not on file documented as of this encounter Procedures Procedure Name Priority Date/Time Associated Diagnosis Comments PROTIME-INR Routine 06/28/2019 documented in this encounter Results * (ABNORMAL) Protime-INR (06/28/2019) INR 1.97(A) 0.9 - 1.1 EXTERNAL LAB Blood specimen (specimen) us [facility] Provider LAB BLOOD ORDERABLES Noris l Result EXTERNAL LAB documented in this encounter Visit Diagnoses Diagnosis Paroxysmal 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 (CMS/HCC) (HCC) Atrial fibrillation group home 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 documented in this encounter Care Teams Credit Union Field Examiner Relationship Specialty Start Date End Date Kali Hunt MD [address] [address] PCP - General Family Medicine 02/08/19 01/30/20 documented as of this encounter
--- OUTSIDE RECORDS SUMMARY | 2024-10-22 00:29 | XMS_ITS | Encounter Summary ---
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 Social History Tobacco Use Types Packs/Day Years Used Date Smoking Tobacco: Former Smokeless Tobacco: Never Alcohol Use Standard Drinks/Week Comments Yes 0 (1 standard drink = 0.6 oz pur e alcohol) Comments Unknown Sex and Gender Information Value Date Recorded Sex Assigned at Not on file Legal Sex Female 8:30 AM CLINICAL OPERATIONS LEADER Gender Identity Female 10/06/2021 4:28 PM CLINICAL OPERATIONS LEADER Sexual Orientation Choose not to disclose 2020 4:28 PM CLINICAL OPERATIONS LEADER documented as of this encounter Plan of Treatment Not on file documented as of this encounter Procedures Procedure Name Priority Date/Time Associated Diagnosis Comments PROTIME-INR Routine 12/07/2018 documented in this encounter Results * (ABNORMAL) Protime-INR (12/07/2018) INR 2.33(A) 0.9 - 1.1 EXTERNAL LAB Blood specimen (specimen) us Historical Provider LAB BLOOD ORDERABLES Noris mauro Result EXTERNAL LAB documented in this encounter Visit Diagnoses Diagnosis Paroxysmal 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 (CMS/HCC) (HCC) Atrial fibrillation [facility] 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 documented in this encounter Care Teams Radiator Fitter Relationship Specialty Start Date End Date Priscilla Barrera MD [address] [place] [address] PCP - General 01/08/17 02/07/19 documented as of this encounter
--- OUTSIDE RECORDS SUMMARY | 2024-10-22 00:29 | XMS_ITS | Encounter Summary ---
Author Organization [facility] Address [address] [facility] [address] [place] [address] Care Team Providers Care Sumac Tanner Name Role Phone Priscilla Barrera MD Primary Care Provider [phone] Encounter Details Date Type Department Care Team (Latest Contact Info) Description 07/06/2018 Anticoagulation Visit [facility] [address] [facility] [address] [place] [phone] Andrade Brown MD [facility] [place] [address] Paroxysmal 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 (CMS/HCC); care home 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 Social History Tobacco Use Types Packs/Day Years Used Date Smoking Tobacco: Former Smokeless Tobacco: Never Alcohol Use Standard Drinks/Week Comments Yes 0 (1 standard drink = 0.6 oz pur e alcohol) Comments Unknown Sex and Gender Information Value Date Recorded Sex Assigned at Not on file Legal Sex Female 8:30 AM LOAN OPERATIONS MANAGER Gender Identity Female 10/06/2021 4:28 PM LOAN OPERATIONS MANAGER Sexual Orientation Choose not to disclose 2020 4:28 PM LOAN OPERATIONS MANAGER documented as of this encounter Plan of Treatment Not on file documented as of this encounter Procedures Procedure Name Priority Date/Time Associated Diagnosis Comments PROTIME-INR Routine 07/06/2018 documented in this encounter Results * (ABNORMAL) Protime-INR (07/06/2018) INR 2.94(A) 0.9 - 1.1 EXTERNAL LAB Blood specimen (specimen) us Historical Provider LAB BLOOD ORDERABLES Noris mauro Result EXTERNAL LAB documented in this encounter Visit Diagnoses Diagnosis Paroxysmal 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 (CMS/HCC) (HCC) Atrial fibrillation care home 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 documented in this encounter Care Teams Sumac Tanner Relationship Specialty Start Date End Date Priscilla Barrera MD [address] [place] [address] PCP - General 01/08/17 02/07/19 documented as of this encounter
--- OUTSIDE RECORDS SUMMARY | 2024-10-22 00:29 | XMS_ITS | Encounter Summary ---
Author Organization [facility] Address [address] [facility] [address] [place] [address] Care Team Providers Care Windows Vmware Engineer Name Role Phone Priscilla Barrera MD Primary Care Provider Encounter Details Date Type Department Care Team (Latest Contact Info) Description 06/01/2018 Anticoagulation Visit [facility] [address] [facility] [address] [place] [phone] Andrade Brown MD [facility] [place] [address] Paroxysmal 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 (CMS/HCC); longterm 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 Social History Tobacco Use Types Packs/Day Years Used Date Smoking Tobacco: Former Smokeless Tobacco: Never Alcohol Use Standard Drinks/Week Comments Yes 0 (1 standard drink = 0.6 oz pur e alcohol) Comments Unknown Sex and Gender Information Value Date Recorded Sex Assigned at Not on file Legal Sex Female 8:30 AM PAINTER HAND Gender Identity Female 10/06/2021 4:28 PM PAINTER HAND Sexual Orientation Choose not to disclose 2020 4:28 PM PAINTER HAND documented as of this encounter Plan of Treatment Not on file documented as of this encounter Procedures Procedure Name Priority Date/Time Associated Diagnosis Comments PROTIME-INR Routine 06/01/2018 documented in this encounter Results * (ABNORMAL) Protime-INR (06/01/2018) INR 1.58(A) 0.9 - 1.1 EXTERNAL LAB Blood specimen (specimen) us Historical Provider LAB BLOOD ORDERABLES Noris mauro Result EXTERNAL LAB documented in this encounter Visit Diagnoses Diagnosis Paroxysmal 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 (CMS/HCC) (HCC) Atrial fibrillation longterm 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 documented in this encounter Care Teams Windows Vmware Engineer Relationship Specialty Start Date End Date Priscilla Barrera MD [address] [place] [address] PCP - General 01/08/17 02/07/19 documented as of this encounter
--- OUTSIDE RECORDS SUMMARY | 2024-10-22 00:29 | XMS_ITS | Encounter Summary ---
Author Organization [facility] Address [address] [facility] [address] [place] [address] Care Team Providers Care Process Machine Operator Name Role Phone Priscilla Barrera MD Primary Care Provider [phone] Encounter Details Date Type Department Care Team (Latest Contact Info) Description 08/10/2018 Anticoagulation Visit [facility] [address] [facility] [address] [place] [phone] Andrade Brown MD [facility] [place] [address] Paroxysmal 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 (CMS/HCC); jail 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 Social History Tobacco Use Types Packs/Day Years Used Date Smoking Tobacco: Former Smokeless Tobacco: Never Alcohol Use Standard Drinks/Week Comments Yes 0 (1 standard drink = 0.6 oz pur e alcohol) Comments Unknown Sex and Gender Information Value Date Recorded Sex Assigned at Not on file Legal Sex Female 8:30 AM UNDERLINER Gender Identity Female 10/06/2021 4:28 PM UNDERLINER Sexual Orientation Choose not to disclose 2020 4:28 PM UNDERLINER documented as of this encounter Plan of Treatment Not on file documented as of this encounter Procedures Procedure Name Priority Date/Time Associated Diagnosis Comments PROTIME-INR Routine 08/10/2018 documented in this encounter Results * (ABNORMAL) Protime-INR (08/10/2018) INR 2.17(A) 0.9 - 1.1 EXTERNAL LAB Blood specimen (specimen) us Historical Provider LAB BLOOD ORDERABLES Noris mauro Result EXTERNAL LAB documented in this encounter Visit Diagnoses Diagnosis Paroxysmal 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 (CMS/HCC) (HCC) Atrial fibrillation jail 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 documented in this encounter Care Teams Process Machine Operator Relationship Specialty Start Date End Date Priscilla Barrera MD [address] [place] [address] PCP - General 01/08/17 02/07/19 documented as of this encounter
--- OUTSIDE RECORDS SUMMARY | 2024-10-22 00:29 | XMS_ITS | Encounter Summary ---
Author Organization [facility] Address [address] [facility] [address] [place] [address] Care Team Providers Care Optimization Consultant Name Role Phone Priscilla Barrera MD Primary Care Provider [phone] Encounter Details Date Type Department Care Team (Latest Contact Info) Description 03/24/2018 Anticoagulation Visit [facility] [address] [facility] [address] [place] [phone] Andrade Brown MD [facility] [place] [address] Paroxysmal 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 (CMS/HCC); assisted 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 Social History Tobacco Use Types Packs/Day Years Used Date Smoking Tobacco: Former Smokeless Tobacco: Never Alcohol Use Standard Drinks/Week Comments Yes 0 (1 standard drink = 0.6 oz pur e alcohol) Comments Unknown Sex and Gender Information Value Date Recorded Sex Assigned at Not on file Legal Sex Female 8:30 AM HEEL SLUGGER Gender Identity Female 10/06/2021 4:28 PM HEEL SLUGGER Sexual Orientation Choose not to disclose 2020 4:28 PM HEEL SLUGGER documented as of this encounter Plan of Treatment Not on file documented as of this encounter Procedures Procedure Name Priority Date/Time Associated Diagnosis Comments PROTIME-INR Routine 03/24/2018 documented in this encounter Results * (ABNORMAL) Protime-INR (03/24/2018) INR 2.39(A) 0.9 - 1.1 EXTERNAL LAB Blood specimen (specimen) us Historical Provider LAB BLOOD ORDERABLES Noris mauro Result EXTERNAL LAB documented in this encounter Visit Diagnoses Diagnosis Paroxysmal 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 (CMS/HCC) (HCC) Atrial fibrillation assisted 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 documented in this encounter Care Teams Optimization Consultant Relationship Specialty Start Date End Date Priscilla Barrera MD [address] [place] [address] PCP - General 01/08/17 02/07/19 documented as of this encounter
--- OUTSIDE RECORDS SUMMARY | 2024-10-22 00:29 | XMS_ITS | Encounter Summary ---
Author Organization [facility] Address [address] [facility] [address] [place] [address] Care Team Providers Care Pupil Personnel Worker Name Role Phone Kali Hunt MD Primary Care Provider [phone] Encounter Details Date Type Department Care Team (Latest Contact Info) Description 10/18/[address] 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 Social History Tobacco Use Types Packs/Day Years Used Date Smoking Tobacco: Former Cigarettes Q uit: 09/28/1978 Smokeless Tobacco: Never Alcohol Use Standard Drinks/Week Comments Yes 0 (1 standard drink = 0.6 oz pur e alcohol) Comments Unknown Sex and Gender Information Value Date Recorded Sex Assigned at Not on file Legal Sex Female 8:30 AM WEATHERIZATION OPERATIONS MANAGER Gender Identity Female 10/06/2021 4:28 PM WEATHERIZATION OPERATIONS MANAGER Sexual Orientation Choose not to disclose 2020 4:28 PM WEATHERIZATION OPERATIONS MANAGER documented as of this encounter Plan of Treatment Not on file documented as of this encounter Procedures Procedure Name Priority Date/Time Associated Diagnosis Comments PROTIME-INR Routine 10/18/2019 documented in this encounter Results * (ABNORMAL) Protime-INR (10/18/2019) INR 1.90(A) 0.9 - 1.1 EXTERNAL LAB Blood specimen (specimen) us Historical Provider LAB BLOOD ORDERABLES Noris mauro Result EXTERNAL LAB documented in this encounter Visit Diagnoses Diagnosis Paroxysmal 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 (CMS/HCC) (HCC) Atrial fibrillation continuous churn buttermaker 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
--- OUTSIDE RECORDS SUMMARY | 2024-10-22 00:29 | XMS_ITS | Encounter Summary ---
Author Organization [facility] Address [address] [facility] [address] [place] [address] Care Team Providers Care Orange Grower Name Role Phone Kali Hunt MD Primary Care Provider [phone] Encounter Details Date Type Department Care Team (Latest Contact Info) Description 09/14/2019 Anticoagulation Visit [facility] [address] [facility] [address] [place] [phone] Rosy White RN Paroxysmal 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 (CMS/HCC); residential 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 Social History Tobacco Use Types Packs/Day Years Used Date Smoking Tobacco: Former Cigarettes Q uit: 09/28/1978 Smokeless Tobacco: Never Alcohol Use Standard Drinks/Week Comments Yes 0 (1 standard drink = 0.6 oz pur e alcohol) Comments Unknown Sex and Gender Information Value Date Recorded Sex Assigned at Not on file Legal Sex Female 8:30 AM SPA DIRECTOR/FINANCE Gender Identity Female 10/06/2021 4:28 PM SPA DIRECTOR/FINANCE Sexual Orientation Choose not to disclose 2020 4:28 PM SPA DIRECTOR/FINANCE documented as of this encounter Plan of Treatment Not on file documented as of this encounter Procedures Procedure Name Priority Date/Time Associated Diagnosis Comments PROTIME-INR Routine 09/14/2019 documented in this encounter Results * (ABNORMAL) Protime-INR (09/14/2019) INR 1.60(A) 0.9 - 1.1 EXTERNAL LAB Blood specimen (specimen) us Historical Provider LAB BLOOD ORDERABLES Noris mauro Result EXTERNAL LAB documented in this encounter Visit Diagnoses Diagnosis Paroxysmal 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 (CMS/HCC) (HCC) Atrial fibrillation 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
--- OUTSIDE RECORDS SUMMARY | 2024-10-22 00:30 | XMS_ITS | Encounter Summary ---
Author Organization [facility] Address [address] [facility] [address] [place] [address] Care Team Providers Care Emergency Technician Name Role Phone Priscilla Barrera MD Primary Care Provider [phone] Encounter Details Date Type Department Care Team (Late st Contact Info) Description 01/27/2017 Orders Only [facility] [address] [facility] [address], [place] [address] Oracio Love MD [address] [facility] [address] [place] [address] Social History Tobacco Use Types Packs/Day Years Used Date Smoking Tobacco: Former Cigarettes Q uit: 10/11/1977 Alcohol Use Standard Drinks/Week Comments Yes 0 (1 standard drink = 0.6 oz pur e alcohol) Comments Unknown Sex and Gender Information Value Date Recorded Sex Assigned at Not on file Legal Sex Female 8:30 AM GAS PROCESSING PLANT OPERATOR Gender Identity Female 10/06/2021 4:28 PM GAS PROCESSING PLANT OPERATOR Sexual Orientation Choose not to disclose 2020 4:28 PM GAS PROCESSING PLANT OPERATOR documented as of this encounter Plan of Treatment Not on file documented as of this encounter Procedures Procedure Name Priority Date/Time Associated Diagnosis Comments BASIC METABOLIC PANEL Routine 01/27/2017 6:41 AM CDT documented in this encounter Results * (ABNORMAL) Basic metabolic panel (01/27/2017 6:41 AM CDT) Sodium 141 135 - 145 mmol/L [facility] Potassium, pl 3.6 3.6 - 5.2 mmol/L [facility] Chloride 100 97 - 110 mmol/L [facility] CO2 26 22 - 32 mmol/L [facility] BUN 20.5 8.0 - 25.0 mg/dL [facility] Glucose 110 70 - 199 mg/dL [facility] Comment: Interpretive Data Glucose is assumed to be non-fasting. Current interpretive data was last revised 2017. Creatinine 1.23(H) 0.60 - 1.10 mg/dL [facility] Calcium 9.0 8.5 - 10.3 mg/dL [facility] Anion gap 15 2 - 15 mmol/L [facility] Blood specimen (specimen) 01/27/2017 6:41 AM CDT 01/27/2017 6:52 AM CDT us Oracio Love MD LAB BLOOD ORDERABLES Fi nal Result [facility] [address] [place] [address] documented in this encounter Visit Diagnoses Not on filedocumented in this encounter Care Teams Emergency Technician Relationship Specialty Start Date End Date Priscilla Barrera MD [address] [place] [address] PCP - General 01/08/17 02/07/19 documented as of this encounter
--- OUTSIDE RECORDS SUMMARY | 2024-10-22 00:30 | XMS_ITS | Encounter Summary ---
Author Organization [facility] Address [address] [facility] [address] [place] [address] Care Team Providers Care Neck Band Maker Name Role Phone Priscilla Barrera MD Primary Care Provider [phone] Encounter Details Date Type Department Care Team (Late st Contact Info) Description 01/27/2017 Orders Only [facility] [address] [facility] [address], [place] [address] Oracio Love MD [address] [facility] [address] [place] [address] Social History Tobacco Use Types Packs/Day Years Used Date Smoking Tobacco: Former Cigarettes Q uit: 10/11/1977 Alcohol Use Standard Drinks/Week Comments Yes 0 (1 standard drink = 0.6 oz pur e alcohol) Comments Unknown Sex and Gender Information Value Date Recorded Sex Assigned at Not on file Legal Sex Female 8:30 AM PIGMENT WEIGHER Gender Identity Female 10/06/2021 4:28 PM PIGMENT WEIGHER Sexual Orientation Choose not to disclose 2020 4:28 PM PIGMENT WEIGHER documented as of this encounter Plan of Treatment Not on file documented as of this encounter Procedures Procedure Name Priority Date/Time Associated Diagnosis Comments APTT Routine 01/27/2017 6:41 AM CDT documented in this encounter Results * aPTT (01/27/2017 6:41 AM CDT) aPTT 33.0 26.0 - 36.0 sec [facility] Comment: Interpretive Data Therapeutic Heparin Range: ??52-80 seconds. Note: Coagulation specimens must be collected peripherally for best results. As a result of changes in our Laboratory Information System, selected coagulation test results may be reported prior to identification of contaminated or clotted samples. In such cases, affected tests may subsequently be canceled and re-collection ordered, with notification to nursing. Please contact Hematology at with any questions. Current Interpretive Data was last revised on 2016. Blood specimen (specimen) 01/27/2017 6:41 AM CDT 01/27/2017 6:53 AM CDT us Oracio Love MD LAB BLOOD ORDERABLES Fi nal Result [facility] [address] Department [place] [address] documented in this encounter Visit Diagnoses Not on filedocumented in this encounter Care Teams Neck Band Maker Relationship Specialty Start Date End Date Priscilla Barrera MD [address] [place] [address] PCP - General 01/08/17 02/07/19 documented as of this encounter
--- OUTSIDE RECORDS SUMMARY | 2024-10-22 00:30 | XMS_ITS | Encounter Summary ---
Author Organization [facility] Address [address] [place] [address] Care Team Providers Care Accounting Professor Name Role Phone Priscilla Barrera MD Primary Care Provider [phone] Kali Hunt MD Primary Care Provider [phone] Devaughn Macias MD Primary Care Provider Denis Platt MD Primary Care Provide r Gideon Campbell MD Primary Care Provider [phone] Encounter Details Date Type Department Care Team (Late st Contact Info) Description 12/15/2017 Orders Only [facility] Health Information Management [address] [place] [address] Scanning, Provider Social History Tobacco Use Types Packs/Day Years Used Date Smoking Tobacco: Former Smokeless Tobacco: Never Alcohol Use Standard Drinks/Week Comments Yes 0 (1 standard drink = 0.6 oz pur e alcohol) Comments Unknown Sex and Gender Information Value Date Recorded Sex Assigned at Not on file Legal Sex Female 8:30 AM CHANNEL DEVELOPMENT DIRECTOR Gender Identity Female 10/06/2021 4:28 PM CHANNEL DEVELOPMENT DIRECTOR Sexual Orientation Choose not to disclose 2020 4:28 PM CHANNEL DEVELOPMENT DIRECTOR documented as of this encounter Plan of Treatment Not on file documented as of this encounter Procedures Procedure Name Priority Date/Time Associated Diagnosis Comments SCAN - RADIOLOGY/IMAGING 12/18/2017 1:20 AM CHANNEL DEVELOPMENT DIRECTOR documented in this encounter Results * SCAN - RADIOLOGY/IMAGING (12/18/2017 1:20 AM CHANNEL DEVELOPMENT DIRECTOR) Anatomical Region Laterality Modality Other us Provider Scanning Edited Result - Final documented in this encounter Visit Diagnoses Not on filedocumented in this encounter Care Teams Accounting Professor Relationship Specialty Start Date End Date Priscilla Barrera MD [address] [place] [address] PCP - General 01/08/17 02/07/19 Kali Hunt MD [address] [place] [address] PCP - General Family Medicine 02/08/19 01/30/20 Devaughn Macias MD [address] [place] [address] PCP - General Family Medicine 01/31/20 01/13/22 Denis Platt MD [address] [place] [address] PCP - General Family Medicine 01/14/22 07/18/23 Gideon Campbell MD [address] [place] [address] [address] ROJAS [address] [place] [address] PCP - General Family Medicine 07/19/23 documented as of this encounter
--- OUTSIDE RECORDS SUMMARY | 2024-10-22 00:30 | XMS_ITS | Encounter Summary ---
Author Organization [facility] Address [address] [place] [address] Care Team Providers Care White Sourer Name Role Phone Priscilla Barrera MD Primary Care Provider [phone] Reason for Visit * Reason Comments Atrial Fibrillation Encounter Details Date Type Department Care Team (Latest Contact Info) Description 05/13/2017 10:30 AM CDT Office Visit [facility]ia [facility] [address] [facility] [address] [place] [address] Kath Byrd, STAKING PRESS OPERATOR [address] [facility] [address] [place] [address] Paroxysmal 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 (CMS/HCC) (Primary Dx); 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 [Z79.01]; Ventricular ectopy; PAD (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/HCC) Social History Tobacco Use Types Packs/Day Years Used Date Smoking Tobacco: Former Smokeless Tobacco: Never Alcohol Use Standard Drinks/Week Comments Yes 0 (1 standard drink = 0.6 oz pur e alcohol) Comments Unknown Sex and Gender Information Value Date Recorded Sex Assigned at Not on file Legal Sex Female 8:30 AM CLIENT CARE COORDINATOR Gender Identity Female 10/06/2021 4:28 PM CLIENT CARE COORDINATOR Sexual Orientation Choose not to disclose 2020 4:28 PM CLIENT CARE COORDINATOR documented as of this encounter Last Filed Vital Signs Vital Sign Reading Time Taken Comments Blood Pressure 148/72 05/13/2017 9:51 AM CDT Pulse 59 05/13/2017 9:51 AM CDT Temperature - - Respiratory Rate - - Oxygen Saturation - - Inhaled Oxygen Concentration - - Weight 90.7 kg (200 lb) 05/13/2017 9:51 AM CDT Height 167.6 cm (5' 6 ) 05/13/2017 9:51 AM CDT Body Mass Index 32.28 05/13/2017 9:51 AM CDT documented in this encounter Patient Instructions * Patient Instructions* Aimee Gomez MA - 05/13/2017 9:50 AM CDT Images from the original note were not included. Patient Education A-fib (Atrial Fibrillation) AWNING ASSEMBLER: Atrial fibrillation (a-fib) is an irregular heartbeat. [...] in your arm or leg. Contact your call center supervisor or healthcare provider if: ?? Your target [...] plan for you. Follow up with your call center supervisor as directed: You will need regular blood tests and monitoring. Write down your questions so you remember to ask them during your visits. ?? 2016 [employer]. Information is for End User's use only and may not be sold, redistributed or otherwise used for commercial purposes. All illustrations and images included in CareNotes?? are the copyrighted property of [employer]. or [employer]. The above information is an occupational rehabilitation aide only. It is not intended as medical advice for individual conditions or treatments. Talk to your doctor, nurse or pharmacist before following any medical regimen to see if it is safe and effective for you. documented in this encounter Progress Notes * Kath Byrd NP - 05/13/2017 10:30 AM CDT Subjective/Objective Patient ID: Quin Talley is a 81 y.o. female. Chief Complaint Atrial Fibrillation Quin Talley presents in follow-up today for her 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. She is a 81-year-old female with history of PAF, hypertension, and dyslipidemia. On 07/23/2016, the patient underwent radiofrequency catheter ablation for 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. She was free of atrial arrhythmia for brief. Following the procedure but then continued to have 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 on near daily basis shortly thereafter. When she was seen in December of 2016 options for management were discussed and she was offered repeat ablation. On 01/27/2017 she underwent repeat ablation which included repeat ablation of LSPV/LIPVcarina, RIPV, linear ablation of the left atrium, SVC isolation, and focal right atrial tachycardia ablation. She was recently seen in the clinic in February of 2017. She denies palpitations, shortness ofbreath, dizziness, or chest pain. She remains quite active. She denies any symptoms of indicate recurrence of her 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. She remains anticoagulated with Coumadin is tolerating well. EKG on my review today demonstrates sinus rhythm (59) with normal QRS duration and QT interval. Review of Systems Constitutional: Negative. HENT: Negative. Eyes: Negative. Respiratory: Negative. Cardiovascular: Negative. Gastrointestinal: Positive for acid reflux Endocrine: Negative. Genitourinary: Negative. Musculoskeletal: Negative. Skin: Negative. Allergic/Immunologic: Negative. Neurological: Negative. Hematological: Negative. Psychiatric/Behavioral: Negative. Physical Exam Constitutional: She is oriented to person, place, and time. She appears well- developed and well-nourished. HENT: Head: Normocephalic and atraumatic. Cardiovascular: Normal rate and regular rhythm. No murmur heard. Pulmonary/Chest: Effort normal and breath sounds normal. Abdominal: Soft. Bowel sounds are normal. Musculoskeletal: Normal range of motion. Neurological: She is alert and oriented to person, place, and time. Skin: Skin is warm and dry. Psychiatric: She has a normal mood and affect. Her behavior is normal. Assessment/Plan Diagnoses and all orders for this visit: 1. Paroxysmal 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 (CMS/HCC) (Primary) Assessment & Plan: Post repeat ablation of her highly symptomatic [...] lead EKG. Orders: - ECG 12 lead 2. 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 3. Ventricular ectopy 4. 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 * Assessment & Plan Note - Kath Byrd NP - 05/17/2017 2:09 PM CDT Associated Problem(s): Atrial fibrillation ([facility]) [I48.91] Post repeat ablation of her highly symptomatic [...] an office visit and 12 lead EKG. 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 [Z79.01] Long-term (current) use of anticoagulants Ventricular ectopy Other premature beats PAD (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) (HCC) Unspecified peripheral vascular disease documented in this encounter Discontinued Medications Medication Sig Discontinue Reason Start Date End Da te enoxaparin (LOVENOX) 60 mg/0.6 mL syringe nject 50mg by subcutaneous route twice daily (every 12 hours) 2016 05/13/2017 documented as of this encounter Care Teams White Sourer Relationship Specialty Start Date End Date Priscilla Barrera MD [address] [place] [address] PCP - General 01/08/17 02/07/19 documented as of this encounter
--- OUTSIDE RECORDS SUMMARY | 2024-10-22 00:30 | XMS_ITS | Encounter Summary ---
Author Organization [facility] Address [address] [place] [address] Care Team Providers Care Binder Cutter Name Role Phone Priscilla Barrera MD Primary Care Provider [phone] Encounter Details Date Type Department Care Team (Late st Contact Info) Description 01/28/2017 Orders Only Arrhythmia Center [address] [facility] [address] [address] Oracio Love MD [address] [facility] [address] [place] [address] Social History Tobacco Use Types Packs/Day Years Used Date Smoking Tobacco: Former Cigarettes Q uit: 10/11/1977 Alcohol Use Standard Drinks/Week Comments Yes 0 (1 standard drink = 0.6 oz pur e alcohol) Comments Unknown Sex and Gender Information Value Date Recorded Sex Assigned at Not on file Legal Sex Female 8:30 AM TEST PREPARATION TUTOR Gender Identity Female 10/06/2021 4:28 PM TEST PREPARATION TUTOR Sexual Orientation Choose not to disclose 2020 4:28 PM TEST PREPARATION TUTOR documented as of this encounter Plan of Treatment Not on file documented as of this encounter Procedures Procedure Name Priority Date/Time Associated Diagnosis Comments DIFFERENTIAL AUTO Routine 01/28/2017 5:5 3 AM CDT documented in this encounter Results * Differential, auto (01/28/2017 5:53 AM CDT) Neutrophil pct 69.5 44.0 - 80.0 % [facility] Imm gran pct 0.4 0.0 - 1.0 % [facility] Lymphocyte pct 16.9 13.0 - 44.0 % [facility] Monocyte pct 10.1 2.0 - 11.0 % [facility] Eosinophil pct 2.5 0.0 - 6.0 % [facility] Basophil pct 0.6 0.0 - 3.0 % [facility] Neutrophil abs 3.28 1.70 - 6.50 K/cumm [facility] Imm gran abs 0.02 0.00 - 0.10 K/cumm [facility] Lymphocyte abs 0.80 0.80 - 3.30 K/cumm [facility] Monocyte abs 0.48 0.20 - 0.80 K/cumm [facility] Eosinophil abs 0.12 0.00 - 0.50 K/cumm [facility] Basophil abs 0.03 0.00 - 0.10 K/cumm [facility] Blood specimen (specimen) 01/28/2017 5:53 AM CDT 01/28/2017 6:12 AM CDT us Oracio Love MD LAB BLOOD ORDERABLES Fi nal Result [facility] [address] Department [place] [address] documented in this encounter Visit Diagnoses Not on filedocumented in this encounter Care Teams Binder Cutter Relationship Specialty Start Date End Date Priscilla Barrera MD [address] [place] [address] PCP - General 01/08/17 02/07/19 documented as of this encounter
--- OUTSIDE RECORDS SUMMARY | 2024-10-22 00:30 | XMS_ITS | Encounter Summary ---
Author Organization [facility] Address [address] [place] [address] Care Team Providers Care Retanner Name Role Phone Priscilla Barrera MD Primary Care Provider [phone] Encounter Details Date Type Department Care Team (Late st Contact Info) Description 11/26/2017 Telephone Arrhythmia Center [address] [facility] [address], [place] [address] Oracio Love MD [address] [facility] [address] [place] [address] Social History Tobacco Use Types [...] PRINTING ENGINEER documented as of this encounter Miscellaneous Notes * Telephone Encounter - Caitlyn Li - 11/26/2017 12:54 PM CST SUBHASH - Kath out of the office on 02/17/18 & need to r/s TING ENGINEER documented in this encounter Plan of Treatment Not on file documented as of this encounter Visit Diagnoses Not on filedocumented in this encounter Care Teams Retanner Relationship Specialty Start Date End Date Priscilla Barrera MD [address] [place] [address] PCP - General 01/08/17 02/07/19 documented as of this encounter
--- OUTSIDE RECORDS SUMMARY | 2024-10-22 00:30 | XMS_ITS | Encounter Summary ---
Author Organization [facility] Address [address] [place] [address] Care Team Providers Care Meeting/Event Planner Name Role Phone Priscilla Barrera MD Primary Care Provider [phone] Encounter Details Date Type Department Care Team (Latest Contact Info) Description 04/26/2017 Anticoagulation Visit [facility] [address] [place] [address] Andrade Brown MD [facility] [place] [address] Paroxysmal 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 (CMS/HCC); [facility] (current) use of anticoagulants Social History Tobacco Use Types Packs/Day Years Used Date Smoking Tobacco: Former Cigarettes Q uit: 10/11/1977 Alcohol Use Standard Drinks/Week Comments Yes 0 (1 standard drink = 0.6 oz pur e alcohol) Comments Unknown Sex and Gender Information Value Date Recorded Sex Assigned at Not on file Legal Sex Female 8:30 AM SPECIAL EDUCATION CURRICULUM SPECIALIST Gender Identity Female 10/06/2021 4:28 PM SPECIAL EDUCATION CURRICULUM SPECIALIST Sexual Orientation Choose not to disclose 2020 4:28 PM SPECIAL EDUCATION CURRICULUM SPECIALIST documented as of this encounter Plan of Treatment Not on file documented as of this encounter Procedures Procedure Name Priority Date/Time Associated Diagnosis Comments PROTIME-INR Routine 04/26/2017 11:38 AM CDT documented in this encounter Results * (ABNORMAL) Protime-INR (04/26/2017 11:38 AM CDT) INR 2.53(A) 0.9 - 1.1 EXTERNAL LAB Blood specimen (specimen) us Andrade Brown MD LAB BLOOD ORDERABLES Noris mauro Result EXTERNAL LAB documented in this encounter Visit Diagnoses Diagnosis Paroxysmal 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 (CMS/HCC) (HCC) Atrial fibrillation manager intermediate (current) use of anticoagulants Long-term (current) use of anticoagulants documented in this encounter Care Teams Meeting/Event Planner Relationship Specialty Start Date End Date Priscilla Barrera MD [address] [place] [address] PCP - General 01/08/17 02/07/19 documented as of this encounter
--- OUTSIDE RECORDS SUMMARY | 2024-10-22 00:30 | XMS_ITS | Encounter Summary ---
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 (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/HCC); 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 Social History Tobacco Use Types Packs/Day Years Used Date Smoking Tobacco: Former Smokeless Tobacco: Never Alcohol Use Standard Drinks/Week Comments Yes 0 (1 standard drink = 0.6 oz pur e alcohol) Comments Unknown Sex and Gender Information Value Date Recorded Sex Assigned at Not on file Legal Sex Female 8:30 AM WORKERS' COMPENSATION HEARINGS OFFICER Gender Identity Female 10/06/2021 4:28 PM WORKERS' COMPENSATION HEARINGS OFFICER Sexual Orientation Choose not to disclose 2020 4:28 PM WORKERS' COMPENSATION HEARINGS OFFICER documented as of this encounter Plan of Treatment Not on file documented as of this encounter Procedures Procedure Name Priority Date/Time Associated Diagnosis Comments PROTIME-INR Routine 12/10/2017 documented in this encounter Results * (ABNORMAL) Protime-INR (12/10/2017) INR 3.30(A) 0.9 - 1.1 EXTERNAL LAB Blood specimen (specimen) Historical Provider LAB BLOOD ORDERABLES Noris l Result EXTERNAL LAB documented in this encounter Visit Diagnoses Diagnosis Paroxysmal 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 (CMS/HCC) (HCC) Atrial fibrillation 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
--- OUTSIDE RECORDS SUMMARY | 2024-10-22 00:30 | XMS_ITS | Encounter Summary ---
Author Organization [facility] Address [address] [facility] [place] [address] Care Team Providers Care Legal Practice Manager Name Role Phone Priscilla Barrera MD Primary Care Provider [phone] Encounter Details Date Type Department Care Team (Late st Contact Info) Description 05/28/2017 Telephone [facility] [address] [address] [place] [address] Andrade Brown MD [facility] [place] [address] Social History Tobacco Use Types Packs/Day Years Used Date Smoking Tobacco: Former Smokeless Tobacco: Never Alcohol Use Standard Drinks/Week Comments Yes 0 (1 standard drink = 0.6 oz pur e alcohol) Comments Unknown Sex and Gender Information Value Date Recorded Sex Assigned at Not on file Legal Sex Female 8:30 AM STATION INSTALLER AND REPAIRER Gender Identity Female 10/06/2021 4:28 PM STATION INSTALLER AND REPAIRER Sexual Orientation Choose not to disclose 2020 4:28 PM STATION INSTALLER AND REPAIRER documented as of this encounter Miscellaneous Notes * Telephone Encounter - Nalini Zazueta RN - 05/28/2017 11:09 AM CDT Will fax standing order to [facility] per request documented in this encounter Plan of Treatment Not on file documented as of this encounter Visit Diagnoses Not on filedocumented in this encounter Care Teams Legal Practice Manager Relationship Specialty Start Date End Date Priscilla Barrera MD [address] [place] [address] PCP - General 01/08/17 02/07/19 documented as of this encounter
--- OUTSIDE RECORDS SUMMARY | 2024-10-22 00:30 | XMS_ITS | Encounter Summary ---
Author Organization [facility] Address [address] [place] [address] Care Team Providers Care Powertrain Engineer Name Role Phone Priscilla Barrera MD Primary Care Provider [phone] Encounter Details Date Type Department Care Team (Late st Contact Info) Description 02/04/2018 Telephone [facility] [address] [address] [address] [place] [address] Andrade Brown MD [facility] [place] [address] Social History Tobacco Use Types Packs/Day Years Used Date Smoking Tobacco: Former Smokeless Tobacco: Never Alcohol Use Standard Drinks/Week Comments Yes 0 (1 standard drink = 0.6 oz pur e alcohol) Comments Unknown Sex and Gender Information Value Date Recorded Sex Assigned at Not on file Legal Sex Female 8:30 AM DEVOPS ENGINEER Gender Identity Female 10/06/2021 4:28 PM DEVOPS ENGINEER Sexual Orientation Choose not to disclose 2020 4:28 PM DEVOPS ENGINEER documented as of this encounter Miscellaneous Notes * Telephone Encounter - Nalini Zazueta RN - 02/04/2018 11:07 AM CDT Spoke to pharmacy ; Made aware pt is to DC simvastatin and start Atorvastatin. * Telephone Encounter - Khushi Mcelroy - 02/04/2018 10:54 AM CDT Received call from pharmacy - have questions about duplicate therapies. Simvastatin and Atorvastatin. Call back number is and reference # is [id number] documented in this encounter Plan of Treatment Not on file documented as of this encounter Visit Diagnoses Not on filedocumented in this encounter Care Teams Powertrain Engineer Relationship Specialty Start Date End Date Priscilla Barrera MD [address] [place] [address] PCP - General 01/08/17 02/07/19 documented as of this encounter
--- OUTSIDE RECORDS SUMMARY | 2024-10-22 00:30 | XMS_ITS | Encounter Summary ---
Author Organization [facility] Address [address] [facility] [place] [address] Care Team Providers Care Dough Brake Machine Operator Name Role Phone Priscilla Barrera MD Primary Care Provider [phone] Encounter Details Date Type Department Care Team (Latest Contact Info) Description 01/12/2018 Anticoagulation Visit [facility] [address] [facility] [address] [place] [address] Andrade Brown MD [facility] [place] [address] Paroxysmal 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 (CMS/HCC); residential 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 Social History Tobacco Use Types Packs/Day Years Used Date Smoking Tobacco: Former Smokeless Tobacco: Never Alcohol Use Standard Drinks/Week Comments Yes 0 (1 standard drink = 0.6 oz pur e alcohol) Comments Unknown Sex and Gender Information Value Date Recorded Sex Assigned at Not on file Legal Sex Female 8:30 AM ROOF TRUSS DETAILER Gender Identity Female 10/06/2021 4:28 PM ROOF TRUSS DETAILER Sexual Orientation Choose not to disclose 2020 4:28 PM ROOF TRUSS DETAILER documented as of this encounter Plan of Treatment Not on file documented as of this encounter Procedures Procedure Name Priority Date/Time Associated Diagnosis Comments PROTIME-INR Routine 01/12/2018 documented in this encounter Results * (ABNORMAL) Protime-INR (01/12/2018) INR 2.12(A) 0.9 - 1.1 EXTERNAL LAB Blood specimen (specimen) us Historical Provider LAB BLOOD ORDERABLES Noris mauro Result EXTERNAL LAB documented in this encounter Visit Diagnoses Diagnosis Paroxysmal 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 (CMS/HCC) (HCC) Atrial fibrillation residential 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 documented in this encounter Care Teams Dough Brake Machine Operator Relationship Specialty Start Date End Date Priscilla Barrera MD [address] [place] [address] PCP - General 01/08/17 02/07/19 documented as of this encounter
--- OUTSIDE RECORDS SUMMARY | 2024-10-22 00:30 | XMS_ITS | Encounter Summary ---
Author Organization [facility] Address [address] [place] [address] Care Team Providers Care Cable Splicer Apprentice Name Role Phone Priscilla Barrera MD Primary Care Provider [phone] Encounter Details Date Type Department Care Team (Latest Contact Info) Description 10/01/2017 Anticoagulation Visit [facility] [address] [facility] [address] [place] [address] Andrade Brown MD [facility] [place] [address] Paroxysmal 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 (CMS/HCC); [facility] 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 Social History Tobacco Use Types Packs/Day Years Used Date Smoking Tobacco: Former Smokeless Tobacco: Never Alcohol Use Standard Drinks/Week Comments Yes 0 (1 standard drink = 0.6 oz pur e alcohol) Comments Unknown Sex and Gender Information Value Date Recorded Sex Assigned at Not on file Legal Sex Female 8:30 AM METAL SPINNER Gender Identity Female 10/06/2021 4:28 PM METAL SPINNER Sexual Orientation Choose not to disclose 2020 4:28 PM METAL SPINNER documented as of this encounter Plan of Treatment Not on file documented as of this encounter Procedures Procedure Name Priority Date/Time Associated Diagnosis Comments PROTIME-INR Routine 10/01/2017 documented in this encounter Results * (ABNORMAL) Protime-INR (10/01/2017) INR 2.73(A) 0.9 - 1.1 EXTERNAL LAB Blood specimen (specimen) us Historical Provider LAB BLOOD ORDERABLES Noris mauro Result EXTERNAL LAB documented in this encounter Visit Diagnoses Diagnosis Paroxysmal 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 (CMS/HCC) (HCC) Atrial fibrillation [facility] 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 documented in this encounter Care Teams Cable Splicer Apprentice Relationship Specialty Start Date End Date Priscilla Barrera MD [address] [place] [address] PCP - General 01/08/17 02/07/19 documented as of this encounter
--- OUTSIDE RECORDS SUMMARY | 2024-10-22 00:30 | XMS_ITS | Encounter Summary ---
Author Organization [facility] Address [address] [place] [address] Care Team Providers Care Ultrasound Technician Name Role Phone Priscilla Barrera MD Primary Care Provider [phone] Encounter Details Date Type Department Care Team (Late st Contact Info) Description 01/28/2017 Orders Only [facility] [address] [address] Oracio Love MD [address] [facility] [address] [place] [address] Social History Tobacco Use Types Packs/Day Years Used Date Smoking Tobacco: Former Cigarettes Q uit: 10/11/1977 Alcohol Use Standard Drinks/Week Comments Yes 0 (1 standard drink = 0.6 oz pur e alcohol) Comments Unknown Sex and Gender Information Value Date Recorded Sex Assigned at Not on file Legal Sex Female 8:30 AM TAX ACCOUNTING ASSISTANT Gender Identity Female 10/06/2021 4:28 PM TAX ACCOUNTING ASSISTANT Sexual Orientation Choose not to disclose 2020 4:28 PM TAX ACCOUNTING ASSISTANT documented as of this encounter Plan of Treatment Not on file documented as of this encounter Procedures Procedure Name Priority Date/Time Associated Diagnosis Comments BASIC METABOLIC PANEL Routine 01/28/2017 5:53 AM CDT documented in this encounter Results * (ABNORMAL) Basic metabolic panel (01/28/2017 5:53 AM CDT) Sodium 141 135 - 145 mmol/L [facility] Potassium, pl 3.3(L) 3.6 - 5.2 mmol/L [facility] Chloride 102 97 - 110 mmol/L [facility] CO2 24 22 - 32 mmol/L [facility] BUN 13.8 8.0 - 25.0 mg/dL [facility] Glucose 108 70 - 199 mg/dL [facility] Comment: Interpretive Data Glucose is assumed to be non-fasting. Current interpretive data was last revised 2017. Creatinine 1.21(H) 0.60 - 1.10 mg/dL [facility] Calcium 7.7(L) 8.5 - 10.3 mg/dL [facility] Anion gap 15 2 - 15 mmol/L [facility] Blood specimen (specimen) 01/28/2017 5:53 AM CDT 01/28/2017 6:11 AM CDT us Oracio Love MD LAB BLOOD ORDERABLES Fi nal Result [facility] [address] Department [place] [address] documented in this encounter Visit Diagnoses Not on filedocumented in this encounter Care Teams Ultrasound Technician Relationship Specialty Start Date End Date Priscilla Barrera MD [address] [place] [address] PCP - General 01/08/17 02/07/19 documented as of this encounter
--- OUTSIDE RECORDS SUMMARY | 2024-10-22 00:30 | XMS_ITS | Encounter Summary ---
Author Organization [facility] Address [address] [place] [address] Care Team Providers Care Lunchroom Mother Name Role Phone Priscilla Barrera MD Primary Care Provider [phone] Reason for Visit * Reason Comments Follow-up 4 mo follow up a-fib Encounter Details Date Type Department Care Team (Latest Contact Info) Description 04/07/2017 10:45 AM CDT Office Visit [facility] [address] [place] [address] Andrade Brown MD [facility] [place] [id number] Hyperlipidemia, unspecified hyperlipidemia type (Primary Dx); Paroxysmal 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 (CMS/HCC); 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]; PAD (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/HCC); 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 goal <100; HTN (hypertension), benign Social History Tobacco Use Types Packs/Day Years Used Date Smoking Tobacco: Former Cigarettes Q uit: 10/11/1977 Alcohol Use Standard Drinks/Week Comments Yes 0 (1 standard drink = 0.6 oz pur e alcohol) Comments Unknown Sex and Gender Information Value Date Recorded Sex Assigned at Not on file Legal Sex Female 8:30 AM CONSTRUCTION SITE MANAGER Gender Identity Female 10/06/2021 4:28 PM CONSTRUCTION SITE MANAGER Sexual Orientation Choose not to disclose 2020 4:28 PM CONSTRUCTION SITE MANAGER documented as of this encounter Last Filed Vital Signs Vital Sign Reading Time Taken Comments Blood Pressure 122/84 04/07/2017 10:30 AM CDT Pulse 72 04/07/2017 10:30 AM CDT Temperature - - Respiratory Rate 14 04/07/2017 10:30 AM CDT Oxygen Saturation - - Inhaled Oxygen Concentration - - Weight 92.1 kg (203 lb) 04/07/2017 10:30 AM CDT Height 167.6 cm (5' 6 ) 04/07/2017 10:30 AM CDT Body Mass Index 32.77 04/07/2017 10:30 AM CDT documented in this encounter Ordered Prescriptions Prescription Sig Dispense Quantity Refills Last Filled Start Date End Date warfarin (COUMADIN) 4 mg tablet Take 1 tablet (4 mg total) by mouth daily. 30 tablet 2 04/07/2017 04/11/2017 simvastatin (ZOCOR) 40 mg tablet Take 1 tablet (40 mg total) by mouth nightly. 30 tablet 5 04/07/2017 04/11/2017 losartan (COZAAR) 100 mg tablet Take 1 tablet (100 mg total) by mouth daily. 30 tablet 5 04/07/2017 04/11/2017 hydroCHLOROthiazid e (HYDRODIURIL) 25 mg tablet Take 1 tablet (25 mg total) by mouth daily. 30 tablet 5 04/07/2017 04/11/2017 documented in this encounter Progress Notes * Andrade Brown MD - 04/07/2017 10:45 AM CDT [facility] DATE OF VISIT: 04/07/2017 CHIEF COMPLAINT Chief Complaint Patient presents with ??? Follow-up 4 mo follow up daija Camacho Mayank is a 81 y.o. female with 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. She was [...] paroxysmal nocturnal dyspnea, orthopnea, edema or palpitations MEDICAL HISTORY Past Medical History: Diagnosis Date ??? Gastroesophageal reflux disease GERD ??? HX OTHER MEDICAL 2006 PAD - non-occl. femoral sclerosis ??? HX OTHER MEDICAL R. knee torn [place] Social History Substance Use Topics ??? Smoking status: Former Smoker Quit date: 10/11/1977 ??? Smokeless tobacco: Not on file ??? Alcohol use Yes Family History Problem Relation Age of Onset ??? Heart attack Father Myocardial infarction; ??? Cancer Father ??? Unexplained Mother natural causes MEDICATIONS Home Medications ENOXAPARIN (LOVENOX) 60 MG/0.6 ML SYRINGE nject 50mg by subcutaneous route twice daily (every 12 hours) HYDROCHLOROTHIAZIDE (HYDRODIURIL) 25 MG TABLET TAKE 1 TABLET BY MOUTH DAILY LOSARTAN (COZAAR) 100 MG TABLET take 1 tablet by oral route every day SIMVASTATIN (ZOCOR) 40 MG TABLET TAKE 1 TABLET BY MOUTH DAILY AT BEDTIME WARFARIN (COUMADIN) 4 MG TABLET TAKE 1 TABLET BY MOUTH DAILY ALLERGIES No Known Allergies REVIEW OF SYSTEMS Review of Systems Constitution: Negative for weight gain and weight loss. HENT: Negative for headaches. Eyes: Negative for blurred vision and visual disturbance. Cardiovascular: Negative for chest pain, claudication, dyspnea on exertion, irregular heartbeat, leg swelling, near-syncope, orthopnea, palpitations, paroxysmal nocturnal dyspnea and syncope. Respiratory: Negative for cough, hemoptysis, shortness of breath, sleep disturbances due to breathing, snoring and wheezing. Endocrine: Negative for cold intolerance, heat intolerance and polyuria. Hematologic/Lymphatic: Does not bruise/bleed easily. Skin: Positive for rash. Negative for color change and itching. Musculoskeletal: Negative for falls, joint pain, joint swelling, muscle cramps, muscle weakness andmyalgias. Gastrointestinal: Positive for heartburn. Negative for abdominal pain, nausea and vomiting. Genitourinary: Negative for dysuria. Neurological: Negative for excessive daytime sleepiness, dizziness, focal weakness, light-headedness, loss of balance and numbness. Psychiatric/Behavioral: Negative for altered mental status, depression and substance abuse. The patient is not nervous/anxious. Allergic/Immunologic: Negative for environmental allergies. PHYSICAL EXAM Blood pressure 122/84, pulse 72, resp. rate 14, height 167.6 cm (5' 6 ), weight 92.1 kg (203 lb). Body mass index is 32.77 kg/m??. Physical Exam Constitutional: She is oriented to person, place, and time. She appears well-nourished. HENT: Head: Normocephalic and atraumatic. Nose: Nose normal. Eyes: Conjunctivae and EOM are normal. No scleral icterus. Neck: Neck supple. Cardiovascular: Normal rate, regular rhythm, normal heart sounds and intact distal pulses. Exam reveals no gallop and no friction rub. No murmur heard. Pulmonary/Chest: Effort normal and [...] No results found for: CHOLHDL EKG Echo ASSESSMENT Diagnoses and all orders for this visit: 1. Hyperlipidemia, unspecified hyperlipidemia type (Primary) - Lipid panel POC (performed in office) 2. Paroxysmal 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 (CMS/HCC) Status post PVI ablation x2 with recent success 3. penitentiary (current) use of anticoagulants [Z79.01] No bleeding problems 4. PAD (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/HCC) Mild femoral disease 5. 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 goal <100 6. HTN (hypertension), benign At goal PLAN/RECOMMENDATIONS No changes to her cardiac regimen. I will see her back in 6 months or sooner as clinically indicated Andrade Brown MD, [facility] documented in this encounter Plan of Treatment Not on file documented as of this encounter Procedures Procedure Name Priority Date/Time Associated Diagnosis Comments POCT LIPID PANEL Routine 04/07/2017 10:3 5 AM CDT Hyperlipidemia, unspecified hyperlipidemia type documented in this encounter Results * Lipid panel POC (performed in office) (04/07/2017 10:35 AM CDT) HDL, POC 46 mg/dL Triglycerides, POC 176 mg/dL LDL Cholesterol POC 105 mg/dL Chol/HDL Ratio, POC 4.0 Non-HDL Cholesterol, POC 140 mg/dL Cholesterol Total, POC 186 mg/dL Blood specimen (specimen) 04/07/2017 10:35 AM CDT Andrade Brown MD POINT OF CARE TEST ORDERA BLES Final Result documented in this encounter Visit Diagnoses Diagnosis Hyperlipidemia, unspecified hyperlipidemia type- Primary Paroxysmal 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 (CMS/HCC) (HCC) Atrial fibrillation 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] Long-term (current) use of anticoagulants PAD (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) (HCC) Unspecified peripheral vascular disease HTN (hypertension), benign Essential hypertension, benign documented in this encounter Discontinued Medications Medication Sig Discontinue Reason Start Date End Da te hydroCHLOROthiazide (HYDRODIURIL) 25 mg tablet TAKE 1 TABLET BY MOUTH DAILY Reorder 03/19/2015 04/07/2017 losartan (COZAAR) 100 mg tablet take 1 tablet by oral route every day Reorder 12/30/2015 04/07/2017 simvastatin (ZOCOR) 40 mg tablet TAKE 1 TABLET BY MOUTH DAILY AT BEDTIME Reorder 05/30/2009 04/07/2017 warfarin (COUMADIN) 4 mg tablet TAKE 1 TABLET BY MOUTH DAILY Reorder 03/02/2013 04/07/2017 documented as of this encounter Care Teams Lunchroom Mother Relationship Specialty Start Date End Date Priscilla Barrera MD [address] [place] [address] PCP - General 01/08/17 02/07/19 documented as of this encounter
--- OUTSIDE RECORDS SUMMARY | 2024-10-22 00:30 | XMS_ITS | Encounter Summary ---
Author Organization [facility] Address [address] [place] [address] Care Team Providers Care Manager Database Name Role Phone Priscilla Barrera MD Primary Care Provider [phone] Encounter Details Date Type Department Care Team (Latest Contact Info) Description 11/05/2017 Anticoagulation Visit [facility] [address] [facility] [facility] [address] [place] [address] Andrade Brown MD [facility] [place] [address] Paroxysmal 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 (CMS/HCC); snf 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 Social History Tobacco Use Types Packs/Day Years Used Date Smoking Tobacco: Former Smokeless Tobacco: Never Alcohol Use Standard Drinks/Week Comments Yes 0 (1 standard drink = 0.6 oz pur e alcohol) Comments Unknown Sex and Gender Information Value Date Recorded Sex Assigned at Not on file Legal Sex Female 8:30 AM LINUX SOLARIS ADMINISTRATOR Gender Identity Female 10/06/2021 4:28 PM LINUX SOLARIS ADMINISTRATOR Sexual Orientation Choose not to disclose 2020 4:28 PM LINUX SOLARIS ADMINISTRATOR documented as of this encounter Plan of Treatment Not on file documented as of this encounter Procedures Procedure Name Priority Date/Time Associated Diagnosis Comments PROTIME-INR Routine 11/05/2017 documented in this encounter Results * (ABNORMAL) Protime-INR (11/05/2017) INR 2.22(A) 0.9 - 1.1 EXTERNAL LAB Blood specimen (specimen) us Historical Provider LAB BLOOD ORDERABLES Noris mauro Result EXTERNAL LAB documented in this encounter Visit Diagnoses Diagnosis Paroxysmal 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 (CMS/HCC) (HCC) Atrial fibrillation snf 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 documented in this encounter Care Teams Manager Database Relationship Specialty Start Date End Date Priscilla Barrera MD [address] [place] [address] PCP - General 01/08/17 02/07/19 documented as of this encounter
--- OUTSIDE RECORDS SUMMARY | 2024-10-22 00:30 | XMS_ITS | Encounter Summary ---
Author Organization [facility] Address [address] [place] [address] Care Team Providers Care Director Hydrogen Storage Engineering Name Role Phone Priscilla Barerra MD Primary Care Provider [phone] Encounter Details Date Type Department Care Team (Late st Contact Info) Description 01/28/2017 Orders Only Arrhythmia Center [address] [facility] [address], [place] [address] Oracio Love MD [address] [facility] [address] [place] [address] Social History Tobacco Use Types Packs/Day Years Used Date Smoking Tobacco: Former Cigarettes Q uit: 10/11/1977 Alcohol Use Standard Drinks/Week Comments Yes 0 (1 standard drink = 0.6 oz pur e alcohol) Comments Unknown Sex and Gender Information Value Date Recorded Sex Assigned at Not on file Legal Sex Female 8:30 AM ENGRAVER OPTICAL FRAMES Gender Identity Female 10/06/2021 4:28 PM ENGRAVER OPTICAL FRAMES Sexual Orientation Choose not to disclose 2020 4:28 PM ENGRAVER OPTICAL FRAMES documented as of this encounter Plan of Treatment Not on file documented as of this encounter Procedures Procedure Name Priority Date/Time Associated Diagnosis Comments EGFR Routine 01/28/2017 5:53 AM CDT documented in this encounter Results * eGFR (01/28/2017 5:53 AM CDT) eGFR 43 mL/min/1.[address] [facility] Comment: Interpretive Data Reference Interval Normal ?>/= 90 mL/min/1.73m2 Mildly decreased* ? 60 - 89 mL/min/1.73m2 Mildly to moderately decreased ?45 - 59 mL/min/1.73m2 Moderately to severely decreased ??30 - 44 mL/min/1.73m2 Severely decreased ?15 - 29 mL/min/1.73m2 Kidney Failure ?< 15 ??mL/min/1.73m2 *Relative to young adult level If -Sudanese multiply value by 1.16. Estimated glomerular filtration rate is determined by the CKD-EPI equation recommended by the National Kidney Foundation (KDIGO 2012 Clinical Practice Guideline for the Evaluation and Management of Chronic Kidney Disease. Kidney Intnl Suppl Oct 2012;3:1). The CKD-EPI equation should not be used for patients with unstable renal function and has not been validated in children and those over 70. Current interpretive data was last reviewed 2017. Blood specimen (specimen) 01/28/2017 5:53 AM CDT 01/28/2017 6:11 AM CDT us Oracio Love MD LAB BLOOD ORDERABLES Fi nal Result [facility] [address] Department [place] [address] documented in this encounter Visit Diagnoses Not on filedocumented in this encounter Care Teams Director Hydrogen Storage Engineering Relationship Specialty Start Date End Date Priscilla Barrera MD [address] [place] [address] PCP - General 01/08/17 02/07/19 documented as of this encounter
--- OUTSIDE RECORDS SUMMARY | 2024-10-22 00:30 | XMS_ITS | Encounter Summary ---
Author Organization [facility] Address [address] [place] [address] Care Team Providers Care Aerospace Engineer Officer Armament Name Role Phone Priscilla Barrera MD Primary Care Provider [phone] Encounter Details Date Type Department Care Team (Late st Contact Info) Description 01/28/2017 Orders Only Arrhythm[facility] Center [address] [facility] [address] [facility] [address] [address] Oracio Love MD [address] [facility] [address] [place] [address] Social History Tobacco Use Types Packs/Day Years Used Date Smoking Tobacco: Former Cigarettes Q uit: 10/11/1977 Alcohol Use Standard Drinks/Week Comments Yes 0 (1 standard drink = 0.6 oz pur e alcohol) Comments Unknown Sex and Gender Information Value Date Recorded Sex Assigned at Not on file Legal Sex Female 8:30 AM PREPARATION OPERATOR Gender Identity Female 10/06/2021 4:28 PM PREPARATION OPERATOR Sexual Orientation Choose not to disclose 2020 4:28 PM PREPARATION OPERATOR documented as of this encounter Plan of Treatment Not on file documented as of this encounter Procedures Procedure Name Priority Date/Time Associated Diagnosis Comments CBC WITH AUTO DIFFERENTIAL Routine 01/28/2017 5:53 AM CDT documented in this encounter Results * (ABNORMAL) CBC with auto differential (01/28/2017 5:53 AM CDT) WBC 4.73 3.80 - 9.90 K/cumm [facility] RBC 3.89(L) 3.90 - 5.20 M/cumm [facility] Hgb 10.8(L) 11.9 - 15.5 g/dL [facility] Hct 33.7(L) 35.6 - 45.5 % [facility] MCV 86.6 81.3 - 96.4 fL [facility] MCH 27.8 27.1 - 33.3 pg [facility] MCHC 32.0(L) 32.3 - 35.7 g/dL [facility] RDW CV 14.4 11.1 - 14.9 % [facility] RDW SD 45.5 35.7 - 48.1 fL [facility] Plt 178 150 - 400 K/cumm [facility] MPV 9.7 9.1 - 12.3 fL [facility] NRBC 0.00 0.00 - 0.20 % [facility] NRBC abs 0.00 0.00 - 0.01 K/cumm [facility] Blood specimen (specimen) 01/28/2017 5:53 AM CDT 01/28/2017 6:12 AM CDT us Oracio Love MD LAB BLOOD ORDERABLES Fi nal Result [facility] [address] [place] [address] documented in this encounter Visit Diagnoses Not on filedocumented in this encounter Care Teams Aerospace Engineer Officer Armament Relationship Specialty Start Date End Date Priscilla Barrera MD [address] [place] [address] PCP - General 01/08/17 02/07/19 documented as of this encounter
--- OUTSIDE RECORDS SUMMARY | 2024-10-22 00:30 | XMS_ITS | Encounter Summary ---
Author Organization [facility] Address [address] [place] [address] Care Team Providers Care Men'S Swim Coach Name Role Phone Priscilla Barrera MD Primary Care Provider [phone] Encounter Details Date Type Department Care Team (Latest Contact Info) Description 05/26/2017 Anticoagulation Visit [facility] [address] [place] [address] Andrade Brown MD [facility] [place] [address] Paroxysmal 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 (CMS/HCC); [facility] (current) use of anticoagulants Social History Tobacco Use Types Packs/Day Years Used Date Smoking Tobacco: Former Smokeless Tobacco: Never Alcohol Use Standard Drinks/Week Comments Yes 0 (1 standard drink = 0.6 oz pur e alcohol) Comments Unknown Sex and Gender Information Value Date Recorded Sex Assigned at Not on file Legal Sex Female 8:30 AM GRAND JURY DEPUTY SHERIFF Gender Identity Female 10/06/2021 4:28 PM GRAND JURY DEPUTY SHERIFF Sexual Orientation Choose not to disclose 2020 4:28 PM GRAND JURY DEPUTY SHERIFF documented as of this encounter Plan of Treatment Not on file documented as of this encounter Procedures Procedure Name Priority Date/Time Associated Diagnosis Comments PROTIME-INR Routine 05/26/2017 10:45 AM CDT documented in this encounter Results * (ABNORMAL) Protime-INR (05/26/2017 10:45 AM CDT) INR 2.52(A) 0.9 - 1.1 EXTERNAL LAB Blood specimen (specimen) us Historical Provider LAB BLOOD ORDERABLES Noris l Result EXTERNAL LAB documented in this encounter Visit Diagnoses Diagnosis Paroxysmal 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 (CMS/HCC) (HCC) Atrial fibrillation intermediate manager (current) use of anticoagulants Long-term (current) use of anticoagulants documented in this encounter Care Teams Men'S Swim Coach Relationship Specialty Start Date End Date Priscilla Barrera MD [address] [place] [address] PCP - General 01/08/17 02/07/19 documented as of this encounter
--- OUTSIDE RECORDS SUMMARY | 2024-10-22 00:30 | XMS_ITS | Encounter Summary ---
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 Social History Tobacco Use Types Packs/Day Years Used Date Smoking Tobacco: Former Smokeless Tobacco: Never Alcohol Use Standard Drinks/Week Comments Yes 0 (1 standard drink = 0.6 oz pur e alcohol) Comments Unknown Sex and Gender Information Value Date Recorded Sex Assigned at Not on file Legal Sex Female 8:30 AM TECHNICAL ASSISTANCE CONSULTANT Gender Identity Female 10/06/2021 4:28 PM TECHNICAL ASSISTANCE CONSULTANT Sexual Orientation Choose not to disclose 2020 4:28 PM TECHNICAL ASSISTANCE CONSULTANT documented as of this encounter Plan of Treatment Not on file documented as of this encounter Procedures Procedure Name Priority Date/Time Associated Diagnosis Comments PROTIME-INR Routine 06/24/2017 9:53 AM CDT documented in this encounter Results * (ABNORMAL) Protime-INR (06/24/2017 9:53 AM CDT) INR 2.51(A) 0.9 - 1.1 EXTERNAL LAB Blood specimen (specimen) us Historical Provider LAB BLOOD ORDERABLES Noris l Result EXTERNAL LAB documented in this encounter Visit Diagnoses Diagnosis Paroxysmal 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 (CMS/HCC) (HCC) Atrial fibrillation 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
--- OUTSIDE RECORDS SUMMARY | 2024-10-22 00:30 | XMS_ITS | Encounter Summary ---
Author Organization [facility] Address [address] [place] [address] Care Team Providers Care Wrapper Off Name Role Phone Priscilla Barrera MD Primary Care Provider [phone] Encounter Details Date Type Department Care Team (Late st Contact Info) Description 01/27/2017 Orders Only [facility] [address] [address] Oracio Love MD [address] [address] [place] [address] Social History Tobacco Use Types Packs/Day Years Used Date Smoking Tobacco: Former Cigarettes Q uit: 10/11/1977 Alcohol Use Standard Drinks/Week Comments Yes 0 (1 standard drink = 0.6 oz pur e alcohol) Comments Unknown Sex and Gender Information Value Date Recorded Sex Assigned at Not on file Legal Sex Female 8:30 AM HAIR PREPARER Gender Identity Female 10/06/2021 4:28 PM HAIR PREPARER Sexual Orientation Choose not to disclose 2020 4:28 PM HAIR PREPARER documented as of this encounter Plan of Treatment Not on file documented as of this encounter Procedures Procedure Name Priority Date/Time Associated Diagnosis Comments EGFR Routine 01/27/2017 6:41 AM CDT documented in this encounter Results * eGFR (01/27/2017 6:41 AM CDT) eGFR 42 mL/min/1.7 3 m2 [facility] Comment: Interpretive Data Reference Interval Normal ?>/= 90 mL/min/1.73m2 Mildly decreased* ? 60 - 89 mL/min/1.73m2 Mildly to moderately decreased ?45 - 59 mL/min/1.73m2 Moderately to severely decreased ??30 - 44 mL/min/1.73m2 Severely decreased ?15 - 29 mL/min/1.73m2 Kidney Failure ?< 15 ??mL/min/1.73m2 *Relative to young adult level If -Tajik multiply value by 1.16. Estimated glomerular filtration [...] was last reviewed 2017. Blood specimen (specimen) 01/27/2017 6:41 AM CDT 01/27/2017 6:52 AM CDT us Oracio Love MD LAB BLOOD ORDERABLES Fi nal Result [facility] [address] Department of Laboratories [place], [place] [id number] documented in this encounter Visit Diagnoses Not on filedocumented in this encounter Care Teams Wrapper Off Relationship Specialty Start Date End Date Priscilla Barrera MD [address] [place] [address] PCP - General 01/08/17 02/07/19 documented as of this encounter
--- OUTSIDE RECORDS SUMMARY | 2024-10-22 00:30 | XMS_ITS | Encounter Summary ---
Author Organization [facility] Address [address] [place] [address] Care Team Providers Care Field Crop Farmworker Name Role Phone Priscilla Barrera MD Primary Care Provider Reason for Visit * Reason Comments Atrial Fibrillation Encounter Details Date Type Department Care Team (Latest Contact Info) Description 08/19/2017 11:00 AM GUEST SERVICE TEAM LEADER Office Visit [facility] [address] [place] [address] Kath Byrd, PHOTOTYPESETTER OPERATOR [address] [facility] [place] [address] Paroxysmal 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 (CMS/HCC) (Primary Dx); HTN (hypertension), benign; terminal gauger 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 Social History Tobacco Use Types Packs/Day Years Used Date Smoking Tobacco: Former Smokeless Tobacco: Never Alcohol Use Standard Drinks/Week Comments Yes 0 (1 standard drink = 0.6 oz pur e alcohol) Comments Unknown Sex and Gender Information Value Date Recorded Sex Assigned at Not on file Legal Sex Female 8:30 AM GUEST SERVICE TEAM LEADER Gender Identity Female 10/06/2021 4:28 PM GUEST SERVICE TEAM LEADER Sexual Orientation Choose not to disclose 2020 4:28 PM GUEST SERVICE TEAM LEADER documented as of this encounter Last Filed Vital Signs Vital Sign Reading Time Taken Comments Blood Pressure 140/68 08/19/2017 9:55 AM GUEST SERVICE TEAM LEADER Pulse 59 08/19/2017 9:55 AM GUEST SERVICE TEAM LEADER Temperature - - Respiratory Rate - - Oxygen Saturation - - Inhaled Oxygen Concentration - - Weight 89.8 kg (198 lb) 08/19/2017 9:55 AM GUEST SERVICE TEAM LEADER Height 167.6 cm (5' 6 ) 08/19/2017 9:55 AM GUEST SERVICE TEAM LEADER Body Mass Index 31.96 08/19/2017 9:55 AM GUEST SERVICE TEAM LEADER documented in this encounter Patient Instructions * Patient Instructions* Aimee Gomez MA - 08/19/2017 9:39 AM GUEST SERVICE TEAM LEADER Images from the original note were not included. Patient Education A-fib (Atrial Fibrillation) MEDICAL CODER: Atrial fibrillation (a-fib) is an irregular heartbeat. [...] in your arm or leg. Contact your senior dot net developer or healthcare provider if: ?? Your target [...] plan for you. Follow up with your senior dot net developer as directed: You will need regular blood tests and monitoring. Write down your questions so you remember to ask them during your visits. ?? 2016 [employer]. Information is for End User's use only and may not be sold, redistributed or otherwise used for commercial purposes. All illustrations and images included in CareNotes?? are the copyrighted property of [employer]. or [employer]. The above information is an prosthetic aides teacher only. It is not intended as medical advice for individual conditions or treatments. Talk to your doctor, nurse or pharmacist before following any medical regimen to see if it is safe and effective for you. T SERVICE TEAM LEADER T SERVICE TEAM LEADER documented in this encounter Progress Notes * Kath Byrd NP - 08/19/2017 11:00 AM CST Subjective/Objective Patient ID: Quin Talley is a 82 y.o. female. Chief Complaint Atrial Fibrillation Patient presents in follow-up today for her history of 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. She is an 82-year-old female with a past medical history of PAF, hypertension, dyslipidemia. On 07/23/2016, the patient underwent radiofrequency catheter ablation of her 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. She was free of atrial arrhythmia for a brief time following the procedure but then continued to have 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 on a near daily basis shortly thereafter. When she was seen in December of 2016 options for management were discussed and she was offered repeat ablation. On 01/27/2017 she underwent repeat ablation which included repeat ablation of LSPV/LIPV clarke, RIPV, linear ablation of the left atrium, SVC, isolation, and focal right atrial tachycardia ablation. She was last seen in May of 2017. She denies any recent palpitations, shortness of breath, dizziness, or chest pain. She remains very active and feels well. She remains anticoagulated with Coumadin and is tolerating well. EKG on my review today demonstrates sinus rhythm (59) with normal QRS duration and QT interval. Review of Systems Constitutional: Negative. HENT: Negative. Eyes: Negative. Respiratory: Negative. Gastrointestinal: Negative. Endocrine: Negative. Genitourinary: Negative. [...] EKG. Orders: - ECG 12 lead 2. HTN (hypertension), benign 3. MCC 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 Assessment & Plan: She remains anticoagulated on Coumadin. She has a [id number] score of 4, therefore it is recommended that she remain anticoagulated for thromboprophylaxis. T SERVICE TEAM LEADER documented in this encounter Miscellaneous Notes * Assessment & Plan Note - Kath Byrd NP - 08/19/2017 10:05 AM GUEST SERVICE TEAM LEADER Associated Problem(s): Atrial fibrillation (CMS/HCC) [I48.91] Post repeat ablation of her highly [...] an office visit and 12 lead EKG. T SERVICE TEAM LEADER * Assessment & Plan Note - Kath Byrd NP - 08/19/2017 10:04 AM GUEST SERVICE TEAM LEADER Associated Problem(s): terminal gauger 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 She remains anticoagulated on Coumadin. She has a FAK3QX-FWWx score of 4, therefore it is recommended that she remain anticoagulated for thromboprophylaxis. T SERVICE TEAM LEADER documented in this encounter Plan of Treatment Not on file documented as of this encounter Procedures Procedure Name Priority Date/Time Associated Diagnosis Comments ECG 12-LEAD Routine 08/19/2017 Paroxysmal 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 (CMS/HCC) documented in this encounter Results * ECG 12 lead (08/19/2017) Kath Byrd NP ECG ORDERABLES Edited Res ult - Final documented in this encounter Visit Diagnoses Diagnosis Paroxysmal 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 (CMS/HCC) (HCC)- Primary Atrial fibrillation HTN (hypertension), benign Essential hypertension, benign MCC 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 documented in this encounter Care Teams Field Crop Farmworker Relationship Specialty Start Date End Date Priscilla Barrera MD [address] [place] [address] PCP - General 01/08/17 02/07/19 documented as of this encounter
--- OUTSIDE RECORDS SUMMARY | 2024-10-22 00:30 | XMS_ITS | Encounter Summary ---
Author Organization [facility] Address [address] [place] [address] Care Team Providers Care Rolling Mill Operator Helper Name Role Phone Priscilla Barrera MD Primary Care Provider [phone] Encounter Details Date Type Department Care Team (Latest Contact Info) Description 07/23/2017 Anticoagulation Visit [facility] [address] [place] [address] Andrade Brown MD [facility] [place] [address] Paroxysmal 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 (CMS/HCC) Social History Tobacco Use Types Packs/Day Years Used Date Smoking Tobacco: Former Smokeless Tobacco: Never Alcohol Use Standard Drinks/Week Comments Yes 0 (1 standard drink = 0.6 oz pur e alcohol) Comments Unknown Sex and Gender Information Value Date Recorded Sex Assigned at Not on file Legal Sex Female 8:30 AM SHAFT HEADMAN Gender Identity Female 10/06/2021 4:28 PM SHAFT HEADMAN Sexual Orientation Choose not to disclose 2020 4:28 PM SHAFT HEADMAN documented as of this encounter Plan of Treatment Not on file documented as of this encounter Procedures Procedure Name Priority Date/Time Associated Diagnosis Comments PROTIME-INR Routine 07/23/2017 8:50 AM CDT documented in this encounter Results * (ABNORMAL) Protime-INR (07/23/2017 8:50 AM CDT) INR 2.16(A) 0.9 - 1.1 EXTERNAL LAB Comment:pt [phone] Blood specimen (specimen) us Historical Provider LAB BLOOD ORDERABLES Noris l Result EXTERNAL LAB documented in this encounter Visit Diagnoses Diagnosis Paroxysmal 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 (CMS/HCC) (HCC) Atrial fibrillation documented in this encounter Care Teams Rolling Mill Operator Helper Relationship Specialty Start Date End Date Priscilla Barrera MD [address] [place] [address] PCP - General 01/08/17 02/07/19 documented as of this encounter
--- OUTSIDE RECORDS SUMMARY | 2024-10-22 00:30 | XMS_ITS | Encounter Summary ---
Author Organization [facility] Address [address] [place] [address] Care Team Providers Care Executive Consultant Name Role Phone Priscilla Barrera MD Primary Care Provider [phone] Encounter Details Date Type Department Care Team (Late st Contact Info) Description 02/02/2018 Telephone [facility] [address] [address] [address] [place] [address] Andrade Brown MD [facility] [place] [address] Social History Tobacco Use Types Packs/Day Years Used Date Smoking Tobacco: Former Smokeless Tobacco: Never Alcohol Use Standard Drinks/Week Comments Yes 0 (1 standard drink = 0.6 oz pur e alcohol) Comments Unknown Sex and Gender Information Value Date Recorded Sex Assigned at Not on file Legal Sex Female 8:30 AM ASSISTANT DISTRICT ATTORNEY Gender Identity Female 10/06/2021 4:28 PM ASSISTANT DISTRICT ATTORNEY Sexual Orientation Choose not to disclose 2020 4:28 PM ASSISTANT DISTRICT ATTORNEY documented as of this encounter Miscellaneous Notes * Telephone Encounter - Jacque Herrera RN - 02/03/2018 8:[address] Brown, switch patient to Atorvastatin 40mg daily. Will send Rx to pharmacy. Patient requesting a 90 day supply. * Telephone Encounter - Jacque Herrera RN - 02/02/2018 9:22 AM CDT Spoke with patient, she states that her biology instructor feels that she may be developing hives from her Simvastatin and is wondering if there is an alternative. States that this has been going on for acouple of years. Will review with Dr. Brown. documented in this encounter Plan of Treatment Not on file documented as of this encounter Visit Diagnoses Not on filedocumented in this encounter Care Teams Executive Consultant Relationship Specialty Start Date End Date Priscilla Barrera MD [address] [place] [address] PCP - General 01/08/17 02/07/19 documented as of this encounter
--- OUTSIDE RECORDS SUMMARY | 2024-10-22 00:30 | XMS_ITS | Encounter Summary ---
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 Social History Tobacco Use Types Packs/Day Years Used Date Smoking Tobacco: Former Smokeless Tobacco: Never Alcohol Use Standard Drinks/Week Comments Yes 0 (1 standard drink = 0.6 oz pur e alcohol) Comments Unknown Sex and Gender Information Value Date Recorded Sex Assigned at Not on file Legal Sex Female 8:30 AM STITCH MARKER Gender Identity Female 10/06/2021 4:28 PM STITCH MARKER Sexual Orientation Choose not to disclose 2020 4:28 PM STITCH MARKER documented as of this encounter Plan of Treatment Not on file documented as of this encounter Procedures Procedure Name Priority Date/Time Associated Diagnosis Comments PROTIME-INR Routine 08/27/2017 3:08 PM STITCH MARKER documented in this encounter Results * (ABNORMAL) Protime-INR (08/27/2017 3:08 PM STITCH MARKER) INR 2.36(A) 0.9 - 1.1 EXTERNAL LAB Blood specimen (specimen) us Historical Provider LAB BLOOD ORDERABLES Noris mauro Result EXTERNAL LAB documented in this encounter Visit Diagnoses Diagnosis Paroxysmal 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 (CMS/HCC) (HCC) Atrial fibrillation group home 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 documented in this encounter Care Teams Strategic Sourcing Specialist Relationship Specialty Start Date End Date Priscilla Barrera MD [address] [place] [address] PCP - General 01/08/17 02/07/19 documented as of this encounter
--- OUTSIDE RECORDS SUMMARY | 2024-10-22 00:30 | XMS_ITS | Encounter Summary ---
Author Organization [facility] Address [address] [place] [address] Care Team Providers Care Search Strategist Name Role Phone Priscilla Barrera MD Primary Care Provider [phone] Encounter Details Date Type Department Care Team (Latest Contact Info) Description 03/29/2017 Anticoagulation Visit [facility] [address] [facility] [address] [place] [address] Andrade Brown MD [facility] [place] [address] Paroxysmal 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 (CMS/HCC); group home (current) use of anticoagulants Social History Tobacco Use Types Packs/Day Years Used Date Smoking Tobacco: Former Cigarettes Q uit: 10/11/1977 Alcohol Use Standard Drinks/Week Comments Yes 0 (1 standard drink = 0.6 oz pur e alcohol) Comments Unknown Sex and Gender Information Value Date Recorded Sex Assigned at Not on file Legal Sex Female 8:30 AM FOREST MANAGEMENT TEACHER Gender Identity Female 10/06/2021 4:28 PM FOREST MANAGEMENT TEACHER Sexual Orientation Choose not to disclose 2020 4:28 PM FOREST MANAGEMENT TEACHER documented as of this encounter Plan of Treatment Not on file documented as of this encounter Procedures Procedure Name Priority Date/Time Associated Diagnosis Comments PROTIME-INR Routine 03/29/2017 10:23 AM CDT documented in this encounter Results * (ABNORMAL) Protime-INR (03/29/2017 10:23 AM CDT) INR 1.94(A) 0.9 - 1.1 EXTERNAL LAB Blood specimen (specimen) us Andrade Brown MD LAB BLOOD ORDERABLES Noris mauro Result EXTERNAL LAB documented in this encounter Visit Diagnoses Diagnosis Paroxysmal 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 (CMS/HCC) (HCC) Atrial fibrillation long term care phlebotomist (current) use of anticoagulants Long-term (current) use of anticoagulants documented in this encounter Care Teams Search Strategist Relationship Specialty Start Date End Date Priscilla Barrera MD [address] [place] [address] PCP - General 01/08/17 02/07/19 documented as of this encounter
--- OUTSIDE RECORDS SUMMARY | 2024-10-22 00:30 | XMS_ITS | Encounter Summary ---
Author Organization [facility] Address [address] [place] [address] Care Team Providers Care Human Services Instructor Name Role Phone Priscilla Barrera MD Primary Care Provider [phone] Reason for Visit * Reason Comments Atrial Fibrillation Peripheral Artery Disease Hypertension Hyperlipidemia 6 mo f/u Encounter Details Date Type Department Care Team (Latest Contact Info) Description 10/13/2017 9:30 AM CLIP ON SUNGLASSES ASSEMBLER Office Visit [facility] [address] [facility] [address] [place] [address] Andrade Brown MD [facility] [place] [id number] Left carotid bruit (Primary Dx); PAD (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/HCC); 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; 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 goal <100; HTN (hypertension), benign; Paroxysmal 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 (CMS/HCC) Social History Tobacco Use Types Packs/Day Years Used Date Smoking Tobacco: Former Smokeless Tobacco: Never Alcohol Use Standard Drinks/Week Comments Yes 0 (1 standard drink = 0.6 oz pur e alcohol) Comments Unknown Sex and Gender Information Value Date Recorded Sex Assigned at Not on file Legal Sex Female 8:30 AM CLIP ON SUNGLASSES ASSEMBLER Gender Identity Female 10/06/2021 4:28 PM CLIP ON SUNGLASSES ASSEMBLER Sexual Orientation Choose not to disclose 2020 4:28 PM CLIP ON SUNGLASSES ASSEMBLER documented as of this encounter Last Filed Vital Signs Vital Sign Reading Time Taken Comments Blood Pressure 126/74 10/13/2017 9:12 AM CLIP ON SUNGLASSES ASSEMBLER Pulse 64 10/13/2017 9:12 AM CLIP ON SUNGLASSES ASSEMBLER Temperature - - Respiratory Rate - - Oxygen Saturation 97% 10/13/2017 9:12 AM CLIP ON SUNGLASSES ASSEMBLER Inhaled Oxygen Concentration - - Weight 92.1 kg (203 lb) 10/13/2017 9:12 AM CLIP ON SUNGLASSES ASSEMBLER Height 167.6 cm (5' 6 ) 10/13/2017 9:12 AM CLIP ON SUNGLASSES ASSEMBLER Body Mass Index 32.77 10/13/2017 9:12 AM CLIP ON SUNGLASSES ASSEMBLER documented in this encounter Ordered Prescriptions Prescription Sig Dispense Quantity Refills Last Filled Start Date End Date warfarin (COUMADIN) 4 mg tablet Take one daily or as directed. 90 tablet 10/13/2017 12/18/2017 documented in this encounter Progress Notes * Andrade Brown MD - 10/13/2017 9:30 AM CST [facility] DATE OF VISIT: 10/13/2017 CHIEF COMPLAINT Chief Complaint Patient presents with ??? Atrial Fibrillation ??? Peripheral Artery Disease ??? Hypertension ??? Hyperlipidemia 6 mo f/u HPI Quin Camacho Mayank is a 82 y.o. female with atrial [...] feeling very well and denies any chest pain,shortness of breath, syncope, presyncope, paroxysmal nocturnal dyspnea, orthopnea, edema palpitations. MEDICAL HISTORY Past Medical History: Diagnosis [...] TABLET TAKE 1 TABLET BY MOUTH DAILY SIMVASTATIN (ZOCOR) 40 MG TABLET TAKE 1 TABLET BY MOUTH DAILY AT BEDTIME WARFARIN (COUMADIN) 4 MG TABLET TAKE 1 TABLET BY MOUTH DAILY ALLERGIES No Known Allergies REVIEW OF SYSTEMS Review of Systems Constitution: Negative for weight gain and weight loss. Eyes: Negative for blurred vision and [...] for environmental allergies. PHYSICAL EXAM Blood pressure 126/74, pulse 64, height 167.6 cm (5' 6 ), weight 92.1 kg (203 lb), SpO2 97 %. Body mass index is 32.77 kg/m??. Physical [...] visit: 1. Hyperlipidemia, unspecified hyperlipidemia type (Primary) 2. Paroxysmal 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 (CMS/HCC) Status post PVI ablation x2 with recent success 3. [facility] (current) use of anticoagulants [Z79.01] No bleeding problems 4. PAD (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/HCC) Mild femoral disease 5. 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 goal <100 6. HTN (hypertension), benign At goal 7.. Left carotid bruit PLAN/RECOMMENDATIONS Bilateral carotid artery ultrasound to evaluate her bruit Otherwise continue her current cardiac regimen without change in follow-up in 6 months or sooner asclinically indicated. 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 goal <100 Other and unspecified hyperlipidemia HTN (hypertension), benign Essential hypertension, benign Paroxysmal 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 (CMS/HCC) (HCC) Atrial fibrillation documented in this encounter Discontinued Medications Medication Sig Discontinue Reason Start Date End Da te warfarin (COUMADIN) 4 mg tablet TAKE 1 TABLET BY MOUTH DAILY Reorder 09/30/2017 10/13/2017 documented as of this encounter Care Teams Human Services Instructor Relationship Specialty Start Date End Date Priscilla Barrera MD [address] [place] [address] PCP - General 01/08/17 02/07/19 documented as of this encounter
--- OUTSIDE RECORDS SUMMARY | 2024-10-22 00:30 | XMS_ITS | Encounter Summary ---
Author Organization [facility] Healthcare Address [address] [place] [address] Care Team Providers Care Environmental Advisor Name Role Phone Priscilla Barrera MD Primary Care Provider [phone] Encounter Details Date Type Department Care Team (Latest Contact Info) Description 01/27/2017 6:03 AM CDT - 01/28/2017 12:31 PM CDT Hospital Encounter [facility] [address] [place] [address] Oracio Love MD [address] [address] Discharge Disposition: Discharge to home or self care Social History Tobacco Use Types Packs/Day Years Used Date Smoking Tobacco: Former Cigarettes Q uit: 10/11/1977 Alcohol Use Standard Drinks/Week Comments Yes 0 (1 standard drink = 0.6 oz pur e alcohol) Comments Unknown Sex and Gender Information Value Date Recorded Sex Assigned at Not on file Legal Sex Female 8:30 AM SWEEP MOLDER Gender Identity Female 10/06/2021 4:28 PM SWEEP MOLDER Sexual Orientation Choose not to disclose 2020 4:28 PM SWEEP MOLDER documented as of this encounter Last Filed Vital Signs Vital Sign Reading Time Taken Comments Blood Pressure 139/58 01/28/2017 8:25 AM CDT Pulse 73 01/28/2017 8:25 AM CDT Temperature - - Respiratory Rate - - Oxygen Saturation - - Inhaled Oxygen Concentration - - Weight 93 kg (205 lb 0.4 oz) 01/27/2017 8:00 PM CDT Height 167.6 cm (5' 5.98 ) 01/27/2017 8:00 PM CD T Body Mass Index 33.11 01/28/2017 1:26 PM CDT documented in this encounter Medications at Time of Discharge enoxaparin (LOVENOX) 60 mg/0.6 mL syringe nject 50mg by subcutaneous route twice daily (every 12 hours) 10 Syringe 1 2016 7 hydroCHLOROthiaz elena (HYDRODIURIL) 25 mg tablet TAKE 1 TABLET BY MOUTH DAILY 90 0 03/19/2015 7 losartan (COZAAR) 100 mg tablet take 1 tablet by oral route every day 90 3 12/30/2015 7 simvastatin (ZOCOR) 40 mg tablet TAKE 1 TABLET BY MOUTH DAILY AT BEDTIME 90 0 05/30/2009 7 warfarin (COUMADIN) 4 mg tablet TAKE 1 TABLET BY MOUTH DAILY 90 0 03/02/2013 7 documented as of this encounter Discharge Disposition Disposition Code Departure Means Destination Discharge to home or self care documented in this encounter Plan of Treatment Not on file documented as of this encounter Visit Diagnoses Not on filedocumented in this encounter Care Teams Environmental Advisor Relationship Specialty Start Date End Date Priscilla Barrera MD [address] [place] [address] PCP - General 01/08/17 02/07/19 documented as of this encounter
--- OUTSIDE RECORDS SUMMARY | 2024-10-22 00:30 | XMS_ITS | Encounter Summary ---
Author Organization [facility] Medical Group Address [address] [facility] [address] [place] [address] Care Team Providers Care Field Sampling Technician Name Role Phone Priscilla Barrera MD Primary Care Provider [phone] Encounter Details Date Type Department Care Team (Late st Contact Info) Description 01/27/2017 Orders Only [facility] [address] [facility] [address] [address] Oracio Love MD [address] [facility] [address] [place] [address] Social History Tobacco Use Types Packs/Day Years Used Date Smoking Tobacco: Former Cigarettes Q uit: 10/11/1977 Alcohol Use Standard Drinks/Week Comments Yes 0 (1 standard drink = 0.6 oz pur e alcohol) Comments Unknown Sex and Gender Information Value Date Recorded Sex Assigned at Not on file Legal Sex Female 8:30 AM POULTRY HATCHERY MAN Gender Identity Female 10/06/2021 4:28 PM POULTRY HATCHERY MAN Sexual Orientation Choose not to disclose 2020 4:28 PM POULTRY HATCHERY MAN documented as of this encounter Plan of Treatment Not on file documented as of this encounter Procedures Procedure Name Priority Date/Time Associated Diagnosis Comments PROTIME-INR Routine 01/27/2017 6:41 AM CDT documented in this encounter Results * Protime-INR (01/27/2017 6:41 AM CDT) PT 12.1 10.0 - 13.0 sec [facility] Comment: Note: Coagulation specimens must be collected peripherally for best results. As a result of changes in our Laboratory Information System, selected coagulation test results may be reported prior to identification of contaminated or clotted samples. In such cases, affected tests may subsequently be canceled and re-collection ordered, with notification to nursing. Please contact Hematology at with any questions. INR 1.0 0.9 - 1.2 [facility] Comment: INDICATION: ORTHOPEDIC Total Hip and Knee Arthroplasty ?? 1.8 to 2.6 Hip Fracture ?1.8 to 2.6 CARDIOLOGY Atrial Fibrillation ? 2.0 to 3.0 Cardiomyopathy ?2.0 to 3.0 Myocardial Infarction ? 2.5 to 3.0 Non-kletsel dehe wintun Heart Valve ?2.0 to 3.5 TREATMENT OF VENOUS THROMBOSIS Deep Vein Thrombosis ?2.0 to 3.0 Pulmonary Embolism ?2.0 to 3.0 Note: Coagulation specimens must be collected peripherally for best results. As a result of changes in our Laboratory Information System, selected coagulation test results may be reported prior to identification of contaminated or clotted samples. In such cases, affected tests may subsequently be canceled and re-collection ordered, with notification to nursing. Please contact Hematology at with any questions. Blood specimen (specimen) 01/27/2017 6:41 AM CDT 01/27/2017 6:53 AM CDT us Oracio Love MD LAB BLOOD ORDERABLES Fi nal Result [facility] [address] Department [place] [address] documented in this encounter Visit Diagnoses Not on filedocumented in this encounter Care Teams Field Sampling Technician Relationship Specialty Start Date End Date Priscilla Barrera MD [address] [place] [address] PCP - General 01/08/17 02/07/19 documented as of this encounter
--- OUTSIDE RECORDS SUMMARY | 2024-10-22 00:31 | XMS_ITS | Encounter Summary ---
Author Organization [facility] Medical Group Address [address] [facility] [address] [place] [address] Care Team Providers Care Rug Receiving Clerk Name Role Phone Priscilla Barrera MD Primary Care Provider [phone] Priscilla Barrera MD Primary Care Provider [phone] Priscilla Barrera MD Primary Care Provider [phone] Kali Hunt MD Primary Care Provider [phone] Devaughn Macias MD Primary Care Provider Denis Platt MD Primary Care Provide r Gideon Campbell MD Primary Care Provider [phone] Encounter Details Date Type Department Care Team (Late st Contact Info) Description 07/23/2016 Orders Only [facility] Provider, MD Peggy [address] [place] [address] Social History Tobacco Use Types Packs/Day Years Used Date Smoking Tobacco: Former Cigarettes Q uit: 10/11/1977 Alcohol Use Standard Drinks/Week Comments Yes 0 (1 standard drink = 0.6 oz pur e alcohol) Comments Unknown Sex and Gender Information Value Date Recorded Sex Assigned at Not on file Legal Sex Female 8:30 AM BATH MIXER Gender Identity Female 10/06/2021 4:28 PM BATH MIXER Sexual Orientation Choose not to disclose 2020 4:28 PM BATH MIXER documented as of this encounter Plan of Treatment Not on file documented as of this encounter Procedures Procedure Name Priority Date/Time Associated Diagnosis Comments CARDIOLOGY REPORT 07/23/2016 documented in this encounter Results * CARDIOLOGY REPORT (07/23/2016) Anatomical Region Laterality Modality Other Narrative 07/23/2016 Ordered by an unspecified provider. us Historical Provider [facility] Final Result documented in this encounter Visit Diagnoses Not on filedocumented in this encounter Care Teams Rug Receiving Clerk Relationship Specialty Start Date End Date Priscilla Barrera MD [address] [place] [address] PCP - General 01/08/17 02/07/19 Priscilla Barrera MD [address] [place] [address] PCP - General 08/27/16 01/07/17 Priscilla Barrera MD [address] [place] [address] PCP - General 01/30/16 08/26/16 Kali Hunt MD [address] [place] [address] PCP - General Family Medicine 02/08/19 01/30/20 Devaughn Macias MD [address] [place] [address] PCP - General Family Medicine 01/31/20 01/13/22 Denis Platt MD [address] [place] [address] PCP - General Family Medicine 01/14/22 07/18/23 Gideon Campbell MD [address] [facility] [address] [place] [address] PCP - General Family Medicine 07/19/23 documented as of this encounter
--- OUTSIDE RECORDS SUMMARY | 2024-10-22 00:31 | XMS_ITS | Encounter Summary ---
Author Organization [facility] Facility Care Team Providers Care Topographical Field Assistant Name Role Phone Priscilla Barrera MD Primary Care Provider [phone] Encounter Details Date Type Department Care Team (Latest Contact Info) Description 07/15/2016 12:54 PM CDT - 07/15/2016 11:59 PM CDT Hospital Encounter [facility] Kate, Wendi Veliz MD [address] [address] Chronic 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 (CMS/HCC) Social History Tobacco Use Types Packs/Day Years Used Date Smoking Tobacco: Former Cigarettes Q uit: 10/11/1977 Alcohol Use Standard Drinks/Week Comments Yes 0 (1 standard drink = 0.6 oz pur e alcohol) Comments Unknown Sex and Gender Information Value Date Recorded Sex Assigned at Not on file Legal Sex Female 8:30 AM FILLING HAND Gender Identity Female 10/06/2021 4:28 PM FILLING HAND Sexual Orientation Choose not to disclose 2020 4:28 PM FILLING HAND documented as of this encounter Medications at Time of Discharge hydroCHLOROthiazi de (HYDRODIURIL) 25 mg tablet TAKE 1 TABLET BY MOUTH DAILY 90 0 03/19/2015 04/07/2017 losartan (COZAAR) 100 mg tablet take 1 tablet by oral route every day 90 3 12/30/2015 04/07/2017 simvastatin (ZOCOR) 40 mg tablet TAKE 1 TABLET BY MOUTH DAILY AT BEDTIME 90 0 05/30/2009 04/07/2017 warfarin (COUMADIN) 4 mg tablet TAKE 1 TABLET BY MOUTH DAILY 90 0 03/02/2013 04/07/2017 documented as of this encounter Plan of Treatment Not on file documented as of this encounter Procedures Procedure Name Priority Date/Time Associated Diagnosis Comments CT ABLATION Routine 07/15/2016 2:29 PM CDT documented in this encounter Results * CT Ablation (07/15/2016 2:29 PM CDT) Anatomical Region Laterality Modality N/A Computed Tomogra phy 07/15/2016 2:29 PM CDT Narrative 07/15/2016 6:[address] HEART, PRE-ABLATION HISTORY: ??Atrial fibrillation. ??Assess pulmonary vein anatomy. COMPARISON: ??No prior studies available. TECHNIQUE: CT scans were obtained of the chest using cardiac gated acquisition during rapid intravenous infusion of 96 mL of Optiray 350. ??Thin-section axial images were sent to a separate 3-D workstation for three-dimensional reconstructions of the left atrial anatomy. ??Thin-slab map imaging was performed as well. FINDINGS: LEFT ATRIAL ANATOMY: The patient has conventional left atrial anatomy with two right and two left pulmonary veins. ??The right inferior pulmonary vein measures 2.2 x 2 cm at its orifice. ??The distance from its orifice to the 1st major branch vessel is 14 mm. ??The right superior pulmonary vein measures 1.7 x 1.5 cm at its orifice. ??The distance from its orifice to the 1st major branch vessel is four millimeters. ??The left inferior pulmonary vein measures 17 x 1.0 cm. ??The distance from the orifice to the 1st major branch vessel is 17 mm. ??The left superior pulmonary vein measures 2.2 x 1.5 cm. ??The distance from the orifice to the 1st major branch vessel is 14 mm. There is no thrombus in the left atrial appendage or within the left atrium itself. CHEST FINDINGS: There is moderate coronary artery atherosclerosis. ??There is no mediastinal mass or adenopathy. ??The aorta contains calcifications compatible with atherosclerosis without evidence of aneurysm or dissection. ??There is a calcified nodule in the right upper lobe. ?? There is some minor dependent atelectasis in the lower lobes. ??The central airways are grossly unremarkable. IMPRESSION: 1. ??Normal left atrial anatomy without evidence of left atrial thrombus. 2. ??Coronary artery atherosclerosis. ??Aortic atherosclerosis. 3. ??Old granulomatous disease. Electronically signed by: Enrique Manzo M.D. Radiologist: ENRIQUE MANZO ??MRyanDRyan ?? Attending: ??WENDI BULL Requesting: WENDI BULL Requesting Fax: ?? Requesting ID: [id number] Attending Fax: ?? Attending ID: ?? [id number] Completed Time: ?? 07/15/2016 2:29 PM Dictated Time: ?N/A Transcribed Time: 07/15/2016 6:19 PM Signed by: ?ENRIQUE MANZO ?? Radha on 07/15/2016 6:19 PM Report To 1 ID: Report To 1 Name: , Report To 1 FAX: Report To 2 ID: Report To 2 Name: , Report To 2 FAX: Report To 3 ID: Report To 3 Name: , Report To 3 FAX: NextGen Order #: Procedure Note Provider, MD Peggy - 02/16/2017 CT HEART, PRE-ABLATION HISTORY: Atrial fibrillation. Assess pulmonary vein anatomy. COMPARISON: No prior studies available. TECHNIQUE: CT scans were obtained of the chest using cardiac gated acquisition during rapid intravenous infusion of 96 mL of Optiray 350. Thin-section axial images were sent to a separate 3-D workstation for three-dimensional reconstructions of the left atrial anatomy. Thin-slab map imaging was performed as well. FINDINGS: LEFT ATRIAL ANATOMY: The patient has conventional left atrial anatomy with two right and two left pulmonary veins. The right inferior pulmonary vein measures 2.2 x 2 cm at its orifice. The distance from its orifice to the 1st major branch vessel is 14 mm. The right superior pulmonary vein measures 1.7 x 1.5 cm at its orifice. The distance from its orifice to the 1st major branch vessel is four millimeters. The left inferior pulmonary vein measures 17 x 1.0 cm. The distance from the orifice to the 1st major branch vessel is 17 mm. The left superior pulmonary vein measures 2.2 x 1.5 cm. The distance from the orifice to the 1st major branch vessel is 14 mm. There is no thrombus in the left atrial appendage or within the left atrium itself. CHEST FINDINGS: There is moderate coronary artery atherosclerosis. There is no mediastinal mass or adenopathy. The aorta contains calcifications compatible with atherosclerosis without evidence of aneurysm or dissection. There is a calcified nodule in the right upper lobe. There is some minor dependent atelectasis in the lower lobes. The central airways are grossly unremarkable. IMPRESSION: 1. Normal left atrial anatomy without evidence of left atrial thrombus. 2. Coronary artery atherosclerosis. Aortic atherosclerosis. 3. Old granulomatous disease. Electronically signed by: Enrique Manzo M.D. Radiologist: ENRIQUE MANZO M.D. Attending: WENDI BULL Requesting: WENDI BULL Requesting Requesting ID: [id number] Attending Attending ID: [id number] Completed Time: 07/15/2016 2:29 PM Dictated Time: N/A Transcribed Time: 07/15/2016 6:19 PM Signed by: ENRIQUE MANZO M.D. on 07/15/2016 6:19 PM Report To 1 ID: Report To 1 Name: , Report To 1 FAX: Report To 2 ID: Report To 2 Name: , Report To 2 FAX: Report To 3 ID: Report To 3 Name: , Report To 3 FAX: NextGen Order #: Historical Provider MD RODRIGUEZ CT PROCEDURES Final R esult documented in this encounter Visit Diagnoses Diagnosis Chronic 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 (HCC) Atrial fibrillation documented in this encounter Care Teams Topographical Field Assistant Relationship Specialty Start Date End Date Priscilla Barrera MD [facility] [place] [address] PCP - General 01/30/16 08/26/16 documented as of this encounter
--- OUTSIDE RECORDS SUMMARY | 2024-10-22 00:31 | XMS_ITS | Encounter Summary ---
Author Organization [facility] Medical Group Address [address] [facility] [address] [place] [address] Care Team Providers Care Tag And Label Cutter Name Role Phone Priscilla Barrera MD Primary Care Provider [phone] Encounter Details Date Type Department Care Team (Late st Contact Info) Description 01/27/2017 Orders Only [facility] [address] [facility] [address], [place] [address] Oracio Love MD [address] [facility] [address] [place] [address] Social History Tobacco Use Types Packs/Day Years Used Date Smoking Tobacco: Former Cigarettes Q uit: 10/11/1977 Alcohol Use Standard Drinks/Week Comments Yes 0 (1 standard drink = 0.6 oz pur e alcohol) Comments Unknown Sex and Gender Information Value Date Recorded Sex Assigned at Not on file Legal Sex Female 8:30 AM FOLDER TAPER OPERATOR Gender Identity Female 10/06/2021 4:28 PM FOLDER TAPER OPERATOR Sexual Orientation Choose not to disclose 2020 4:28 PM FOLDER TAPER OPERATOR documented as of this encounter Plan of Treatment Not on file documented as of this encounter Procedures Procedure Name Priority Date/Time Associated Diagnosis Comments CBC WITH AUTO DIFFERENTIAL Routine 01/27/2017 6:41 AM CDT documented in this encounter Results * CBC with auto differential (01/27/2017 6:41 AM CDT) WBC 4.22 3.80 - 9.90 K/cumm [facility] RBC 4.67 3.90 - 5.20 M/cumm [facility] Hgb 12.9 11.9 - 15.5 g/dL [facility] Hct 39.8 35.6 - 45.5 % [facility] MCV 85.2 81.3 - 96.4 fL [facility] MCH 27.6 27.1 - 33.3 pg [facility] MCHC 32.4 32.3 - 35.7 g/dL [facility] RDW CV 14.1 11.1 - 14.9 % [facility] RDW SD 43.3 35.7 - 48.1 fL [facility] Plt 233 150 - 400 K/cumm [facility] MPV 9.2 9.1 - 12.3 fL [facility] NRBC 0.00 0.00 - 0.20 % [facility] NRBC abs 0.00 0.00 - 0.01 K/cumm [facility] Blood specimen (specimen) 01/27/2017 6:41 AM CDT 01/27/2017 6:52 AM CDT us Oracio Love MD LAB BLOOD ORDERABLES Fi nal Result [facility] [address] Department [place] [address] documented in this encounter Visit Diagnoses Not on filedocumented in this encounter Care Teams Tag And Label Cutter Relationship Specialty Start Date End Date Priscilla Barrera MD [address] [place] [address] PCP - General 01/08/17 02/07/19 documented as of this encounter
--- OUTSIDE RECORDS SUMMARY | 2024-10-22 00:31 | XMS_ITS | Encounter Summary ---
Author Organization [facility] Medical Group Address [address] [facility] [address] [place] [address] Care Team Providers Care Felt Tipping Machine Tender Name Role Phone Priscilla Barrera MD Primary Care Provider [phone] Priscilla Barrera MD Primary Care Provider [phone] Priscilla Barrera MD Primary Care Provider [phone] Kali Hunt MD Primary Care Provider [phone] Devaughn Macias MD Primary Care Provider Denis Platt MD Primary Care Provide r Gideon Campbell MD Primary Care Provider [phone] Encounter Details Date Type Department Care Team (Late st Contact Info) Description 06/24/2016 Orders Only [facility] Provider, MD Peggy [address] [place] [address] Social History Tobacco Use Types Packs/Day Years Used Date Smoking Tobacco: Former Cigarettes Q uit: 10/11/1977 Alcohol Use Standard Drinks/Week Comments Yes 0 (1 standard drink = 0.6 oz pur e alcohol) Comments Unknown Sex and Gender Information Value Date Recorded Sex Assigned at Not on file Legal Sex Female 8:30 AM BLENDING MACHINE FEEDER Gender Identity Female 10/06/2021 4:28 PM BLENDING MACHINE FEEDER Sexual Orientation Choose not to disclose 2020 4:28 PM BLENDING MACHINE FEEDER documented as of this encounter Plan of Treatment Not on file documented as of this encounter Procedures Procedure Name Priority Date/Time Associated Diagnosis Comments CARDIOLOGY REPORT 06/24/2016 documented in this encounter Results * CARDIOLOGY REPORT (06/24/2016) Anatomical Region Laterality Modality Other Narrative 06/24/2016 Ordered by an unspecified provider. us Historical Provider [facility] FR[facility] J PRUETT Final Result documented in this encounter Visit Diagnoses Not on filedocumented in this encounter Care Teams Felt Tipping Machine Tender Relationship Specialty Start Date End Date Priscilla Barrera MD [address] [place] [address] PCP - General 01/08/17 02/07/19 Priscilla Barrera MD [address] [place] [address] PCP - General 08/27/16 01/07/17 Priscilla Barrera MD [address] [place] [address] PCP - General 01/30/16 08/26/16 Kali Hunt MD [address] [place] [address] PCP - General Family Medicine 02/08/19 01/30/20 Devaughn Macias MD [address] [place] [address] PCP - General Family Medicine 01/31/20 01/13/22 Denis Platt MD [address] [place] [address] PCP - General Family Medicine 01/14/22 07/18/23 Gideon Campbell MD [address] [facility] [address] [place] [address] PCP - General Family Medicine 07/19/23 documented as of this encounter
--- OUTSIDE RECORDS SUMMARY | 2024-10-22 00:31 | XMS_ITS | Encounter Summary ---
Author Organization [facility] Medical Group Address [address] [facility] [address] [place] [address] Care Team Providers Care Bias Cutting Machine Operator Vertical Name Role Phone Priscilla Barrera MD Primary Care Provider Encounter Details Date Type Department Care Team (Late st Contact Info) Description 01/27/2017 [facility] Only [facility] [address] [facility] [address] [address] Oracio Love MD [address] [facility] [address] [place] [address] Social History Tobacco Use Types Packs/Day Years Used Date Smoking Tobacco: Former Cigarettes Q uit: 10/11/1977 Alcohol Use Standard Drinks/Week Comments Yes 0 (1 standard drink = 0.6 oz pur e alcohol) Comments Unknown Sex and Gender Information Value Date Recorded Sex Assigned at Not on file Legal Sex Female 8:30 AM PLATFORM OPERATIONS DIRECTOR Gender Identity Female 10/06/2021 4:28 PM PLATFORM OPERATIONS DIRECTOR Sexual Orientation Choose not to disclose 2020 4:28 PM PLATFORM OPERATIONS DIRECTOR documented as of this encounter Plan of Treatment Not on file documented as of this encounter Procedures Procedure Name Priority Date/Time Associated Diagnosis Comments DIFFERENTIAL AUTO Routine 01/27/2017 6:4 1 AM CDT documented in this encounter Results * (ABNORMAL) Differential, auto (01/27/2017 6:41 AM CDT) Neutrophil pct 70.7 44.0 - 80.0 % [facility] Imm gran pct 0.2 0.0 - 1.0 % [facility] Lymphocyte pct 17.8 13.0 - 44.0 % [facility] Monocyte pct 7.8 2.0 - 11.0 % [facility] Eosinophil pct 2.8 0.0 - 6.0 % [facility] Basophil pct 0.7 0.0 - 3.0 % [facility] Neutrophil abs 2.98 1.70 - 6.50 K/cumm [facility] Imm gran abs 0.01 0.00 - 0.10 K/cumm [facility] Lymphocyte abs 0.75(L) 0.80 - 3.30 K/cumm [facility] Monocyte abs 0.33 0.20 - 0.80 K/cumm [facility] Eosinophil abs 0.12 0.00 - 0.50 K/cumm [facility] Basophil abs 0.03 0.00 - 0.10 K/cumm [facility] Blood specimen (specimen) 01/27/2017 6:41 AM CDT 01/27/2017 6:52 AM CDT us Oracio Love MD LAB BLOOD ORDERABLES Fi nal Result [facility] [address] Department [place] [address] documented in this encounter Visit Diagnoses Not on filedocumented in this encounter Care Teams Bias Cutting Machine Operator Vertical Relationship Specialty Start Date End Date Priscilla Barrera MD [address] [place] [address] PCP - General 01/08/17 02/07/19 documented as of this encounter
--- OUTSIDE RECORDS SUMMARY | 2024-10-22 00:31 | XMS_ITS | Encounter Summary ---
Author Organization [facility] Address [address] [facility] [address] [place] [address] Care Team Providers Care English Language Learner Tutor Name Role Phone rPiscilla Barrera MD Primary Care Provider [phone] Priscilla Barrera MD Primary Care Provider [phone] Kali Hunt MD Primary Care Provider [phone] Devaughn Macias MD Primary Care Provider Denis Platt MD Primary Care Provide r Gideon Campbell MD Primary Care Provider [phone] Encounter Details Date Type Department Care Team (Late st Contact Info) Description 12/24/2016 Orders Only [facility] Provider, MD Peggy [address] [place] [address] Social History Tobacco Use Types Packs/Day Years Used Date Smoking Tobacco: Former Cigarettes Q uit: 10/11/1977 Alcohol Use Standard Drinks/Week Comments Yes 0 (1 standard drink = 0.6 oz pur e alcohol) Comments Unknown Sex and Gender Information Value Date Recorded Sex Assigned at Not on file Legal Sex Female 8:30 AM QUARTZ CUTTER Gender Identity Female 10/06/2021 4:28 PM QUARTZ CUTTER Sexual Orientation Choose not to disclose 2020 4:28 PM QUARTZ CUTTER documented as of this encounter Plan of Treatment Not on file documented as of this encounter Procedures Procedure Name Priority Date/Time Associated Diagnosis Comments CARDIOLOGY REPORT 12/24/2016 documented in this encounter Results * CARDIOLOGY REPORT (12/24/2016) Anatomical Region Laterality Modality Other Narrative 12/24/2016 Ordered by an unspecified provider. us Historical Provider [facility] FRANCISCO J PRUETT Final Result documented in this encounter Visit Diagnoses Not on filedocumented in this encounter Care Teams English Language Learner Tutor Relationship Specialty Start Date End Date Priscilla Barrera MD [address] [place] [address] PCP - General 01/08/17 02/07/19 Priscilla Barrera MD [address] [place] [address] PCP - General 08/27/16 01/07/17 Kali Hunt MD [address] [place] [address] PCP - General Family Medicine 02/08/19 01/30/20 Devaughn Macias MD [address] [employer] [place] [address] PCP - General Family Medicine 01/31/20 01/13/22 Denis Platt MD [address] [place] [address] PCP - General Family Medicine 01/14/22 07/18/23 Gideon Campbell MD [address] [place] [address] [place] [address] PCP - General Family Medicine 07/19/23 documented as of this encounter
--- OUTSIDE RECORDS SUMMARY | 2024-10-22 00:31 | XMS_ITS | Encounter Summary ---
Author Organization [facility] Address [address] [facility] [address] [place] [address] Care Team Providers Care Concrete Craftsman Name Role Phone Priscilla Barrera MD Primary Care Provider [phone] Priscilla Barrera MD Primary Care Provider [phone] Kali Hunt MD Primary Care Provider [phone] Devaughn Macias MD Primary Care Provider Denis Platt MD Primary Care Provide r Gideon Campbell MD Primary Care Provider [phone] Encounter Details Date Type Department Care Team (Late st Contact Info) Description 10/29/2016 Orders Only [facility] Provider, MD Peggy [address] [place] [address] Social History Tobacco Use Types Packs/Day Years Used Date Smoking Tobacco: Former Cigarettes Q uit: 10/11/1977 Alcohol Use Standard Drinks/Week Comments Yes 0 (1 standard drink = 0.6 oz pur e alcohol) Comments Unknown Sex and Gender Information Value Date Recorded Sex Assigned at Not on file Legal Sex Female 8:30 AM COMPUTATIONAL PHYSICIST Gender Identity Female 10/06/2021 4:28 PM COMPUTATIONAL PHYSICIST Sexual Orientation Choose not to disclose 2020 4:28 PM COMPUTATIONAL PHYSICIST documented as of this encounter Plan of Treatment Not on file documented as of this encounter Procedures Procedure Name Priority Date/Time Associated Diagnosis Comments CARDIOLOGY REPORT 10/29/2016 documented in this encounter Results * CARDIOLOGY REPORT (10/29/2016) Anatomical Region Laterality Modality Other Narrative 10/29/2016 Ordered by an unspecified provider. us Historical Provider [facility] FRANCISCO J PRUETT Final Result documented in this encounter Visit Diagnoses Not on filedocumented in this encounter Care Teams Concrete Craftsman Relationship Specialty Start Date End Date Priscilla Barrera MD [address] [place] [address] PCP - General 01/08/17 02/07/19 Priscilla Barrera MD [address] [place] [address] PCP - General 08/27/16 01/07/17 Kali Hunt MD [address] [place] [address] PCP - General Family Medicine 02/08/19 01/30/20 Devaughn Macias MD [address] [place] [address] PCP - General Family Medicine 01/31/20 01/13/22 Denis Platt MD [address] [place] [address] PCP - General Family Medicine 01/14/22 07/18/23 Gideon Campbell MD [address] [place] [address] [place] [address] PCP - General Family Medicine 07/19/23 documented as of this encounter
--- OUTSIDE RECORDS SUMMARY | 2024-10-22 00:31 | XMS_ITS | Encounter Summary ---
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 Social History Tobacco Use Types Packs/Day Years Used Date Smoking Tobacco: Former Cigarettes Q uit: 10/11/1977 Alcohol Use Standard Drinks/Week Comments Yes 0 (1 standard drink = 0.6 oz pur e alcohol) Comments Unknown Sex and Gender Information Value Date Recorded Sex Assigned at Not on file Legal Sex Female 8:30 AM POT RUNNER Gender Identity Female 10/06/2021 4:28 PM POT RUNNER Sexual Orientation Choose not to disclose 2020 4:28 PM POT RUNNER documented as of this encounter Last Filed Vital Signs Vital Sign Reading Time Taken Comments Blood Pressure 150/46 07/23/2016 12:06 PM CDT Pulse 69 07/23/2016 12:06 PM CDT Temperature - - Respiratory Rate - - Oxygen Saturation - - Inhaled Oxygen Concentration - - Weight 92.4 kg (203 lb 11.2 oz) 016 11:54 AM CDT Height 167.6 cm (5' 5.98 ) 07/23/2016 1 1:54 AM CDT Body Mass Index 32.89 07/23/2016 11:54 AM CDT documented in this encounter Medications at [...] Procedure Name Priority Date/Time Associated Diagnosis Comments PLASMA PROTHROMBIN TIME (PT) Routine 07/23/2016 2:03 PM CDT PLASMA BASIC METABOLIC PANEL Routine 07/23/2016 7:04 AM CDT BLOOD CELL COUNT (CBC), MORPHOLOGIC EXAM Routine 07/23/2016 7:04 AM CDT ELECTROCARDIOGRAPHY (ECG) 07/23/2016 DISCHARGE LABORATORY CUMULATIVE REPORT 07/23/2016 PLASMA PROTHROMBIN TIME (PT) Routine 07/22/2016 7:09 AM CDT PLASMA BASIC METABOLIC PANEL Routine 07/22/2016 7:09 AM CDT BLOOD CELL COUNT (CBC), MORPHOLOGIC EXAM Routine 07/22/2016 7:09 AM CDT CARDIAC CATHETERIZATION Routine 07/22/20 16 6:37 AM CDT ELECTROCARDIOGRAPHY (ECG) 07/22/2016 documented in this encounter Results * (ABNORMAL) Plasma prothrombin time (PT) (07/23/2016 2:03 PM CDT) Prothrombin time (PT) 15.5(H) 10.0 - 13.0 seconds CDR HISTORICAL RESULTS INR 1.3(H) 0.9 - 1.2 CDR HISTOR ICAL RESULTS Comment: INDICATION: ORTHOPEDIC Total Hip and Knee Arthroplasty 1.8 to 2.6 Hip Fracture 1.8 to 2.6 CARDIOLOGY Atrial Fibrillation 2.0 to 3.0 Cardiomyopathy 2.0 to 3.0 Myocardial Infarction 2.0 to 3.0 Non-confederated yakama Valves 2.0 to 3.5 TREATMENT OF VENOUS THRMBOSIS Deep Vein Thrombosis 2.0 to 3.0 Pulmonary Embolism 2.0 to 3.0 Plasma 07/23/2016 2:03 PM CDT Kath Byrd NP LAB BLOOD ORDERABLES Final Result CDR HISTORICAL RESULTS * (ABNORMAL) Blood cell count (CBC), morphologic exam (07/23/2016 7:04 AM CDT) WBC 6.7 3.8 - 9.9 K/cumm CDR HISTORICAL RESULTS RBC 3.91 3.90 - 5.20 M/cumm CDR HISTORICAL RESULTS Hgb 11.0(L) 11.9 - 15.5 g/dl CDR HISTORICAL RESULTS Hct 34.1(L) 35.6 - 45.5 % CDR HISTORICAL RESULTS MCV 87.2 81.3 - 96.4 fl CDR HISTORICAL RESULTS MCH 28.1 27.1 - 33.3 pg CDR HISTORICAL RESULTS MCHC 32.3 32.3 - 35.7 g/dl CDR HISTORICAL RESULTS RDW 45.5 35.7 - 48.1 fl CDR HISTORICAL RESULTS Rdw 14.2 11.1 - 14.9 % CDR HISTORICAL RESULTS Platelets 194 150 - 400 K/cumm CDR HISTORICAL RESULTS MPV 9.3 9.1 - 12.3 fl CDR HISTORICAL RESULTS Neutrophils 80.1(H) 44.0 - 80.0 % CDR HISTORICAL RESULTS Lymphocytes 8.7(L) 13.0 - 44.0 % CDR HISTORICAL RESULTS Monos 9.5 2.0 - 11.0 % CDR HISTORICAL RESULTS Eosinophils 0.9 0.0 - 6.0 % CDR HISTORICAL RESULTS Basophils 0.5 0.0 - 3.0 % CDR HISTORICAL RESULTS Immature granulocytes 0.3 0.0 - 1.0 % CDR HISTORICAL RESULTS NRBC 0.0 0.0 - 0.2 % CDR HISTORICAL RESULTS Neutrophils, abs 5.3 1.7 - 6.5 K/cumm CDR HISTORICAL RESULTS Lymphocytes, abs 0.6(L) 0.8 - 3.3 K/cumm CDR HISTORICAL RESULTS Monocytes, absolute 0.6 0.2 - 0.8 K/cumm CDR HISTORICAL RESULTS Eosinophils, abs 0.1 0.0 - 0.5 K/cumm CDR HISTORICAL RESULTS Basophils, abs 0.0 0.0 - 0.1 K/cumm CDR HISTORICAL RESULTS Immature granulocyte, abs 0.0 0.0 - 0.1 K/cumm CDR HISTORICAL RESULTS NRBC, abs 0.00 0.00 - 0.01 K/cumm CDR HISTORICAL RESULTS Blood specimen (specimen) 07/23/2016 7:04 AM CDT Oracio Love MD LAB BLOOD ORDERABLES Fi nal Result CDR HISTORICAL RESULTS * (ABNORMAL) Plasma basic metabolic panel (07/23/2016 7:04 AM CDT) Sodium 140 136 - 146 mmol/L CDR HISTORICAL RESULTS K, pl 3.0(L) 3.3 - 4.9 mmol/L CDR HISTORICAL RESULTS Chloride 105 98 - 108 mmol/L CDR HISTORICAL RESULTS CO2 26 22 - 33 mmol/L CDR HISTORICAL RESULTS BUN 13 7 - 18 mg/dl CDR HISTORICAL RESULTS Glucose 115 70 - 140 mg/dl CDR HISTORICAL RESULTS Comment: Glucose is assumed to be non-fasting. ?? Fasting Glucose normal ranges are: 0 days - 2 months: ? 40 mg/dL - 100 mg/dL 2 months - 999 years: ?70 mg/dL - 99 mg/dL Creatinine 1.34 0.50 - 1.50 mg/dl CDR HISTORICAL RESULTS eGFR 38 ml/min/1.7 3 m2 CDR HISTORICAL RESULTS Comment: GFR Reference Range: = > 60 mL/min/1.73 m2 This result has been calculated assuming the patient is Non-. ??If the patient is , please multiply this result by 1.21. The GFR value is not recommended for medication dose adjustment for renal function, creatinine clearance values should be used. Calcium 7.3(L) 8.5 - 10.5 mg/dl CDR HISTORICAL RESULTS Plasma 07/23/2016 7:04 AM CDT Oracio Love MD LAB BLOOD ORDERABLES Fi nal Result CDR HISTORICAL RESULTS * DISCHARGE LABORATORY CUMULATIVE REPORT (07/23/2016) Narrative 07/23/2016 Ordered by an unspecified provider. [facility] Provider LAB BLOOD ORDERABLES Noris l Result * ELECTROCARDIOGRAPHY (ECG) (07/23/2016) Narrative 07/23/2016 Ordered by an unspecified provider. [facility] Provider ECG ORDERABLES Final Res ult * (ABNORMAL) Blood cell count (CBC), morphologic exam (07/22/2016 7:09 AM CDT) WBC 5.0 3.8 - 9.9 K/cumm CDR HISTORICAL RESULTS RBC 4.47 3.90 - 5.20 M/cumm CDR HISTORICAL RESULTS Hgb 12.7 11.9 - 15.5 g/dl CDR HISTORICAL RESULTS Hct 38.7 35.6 - 45.5 % CDR HISTORICAL RESULTS MCV 86.6 81.3 - 96.4 fl CDR HISTORICAL RESULTS MCH 28.4 27.1 - 33.3 pg CDR HISTORICAL RESULTS MCHC 32.8 32.3 - 35.7 g/dl CDR HISTORICAL RESULTS RDW 43.6 35.7 - 48.1 fl CDR HISTORICAL RESULTS Rdw 13.8 11.1 - 14.9 % CDR HISTORICAL RESULTS Platelets 213 150 - 400 K/cumm CDR HISTORICAL RESULTS MPV 9.4 9.1 - 12.3 fl CDR HISTORICAL RESULTS Neutrophils 75.0 44.0 - 80.0 % CDR HISTORICAL RESULTS Lymphocytes 12.8(L) 13.0 - 44.0 % CDR HISTORICAL RESULTS Monos 8.6 2.0 - 11.0 % CDR HISTORICAL RESULTS Eosinophils 2.2 0.0 - 6.0 % CDR HISTORICAL RESULTS Basophils 1.0 0.0 - 3.0 % CDR HISTORICAL RESULTS Immature granulocytes 0.4 0.0 - 1.0 % CDR HISTORICAL RESULTS NRBC 0.0 0.0 - 0.2 % CDR HISTORICAL RESULTS Neutrophils, abs 3.8 1.7 - 6.5 K/cumm CDR HISTORICAL RESULTS Lymphocytes, abs 0.6(L) 0.8 - 3.3 K/cumm CDR HISTORICAL RESULTS Monocytes, absolute 0.4 0.2 - 0.8 K/cumm CDR HISTORICAL RESULTS Eosinophils, abs 0.1 0.0 - 0.5 K/cumm CDR HISTORICAL RESULTS Basophils, abs 0.0 0.0 - 0.1 K/cumm CDR HISTORICAL RESULTS Immature granulocyte, abs 0.0 0.0 - 0.1 K/cumm CDR HISTORICAL RESULTS NRBC, abs 0.00 0.00 - 0.010 K/cumm CDR HISTORICAL RESULTS Blood specimen (specimen) 07/22/2016 7:09 AM CDT Oracio Love MD LAB BLOOD ORDERABLES Fi nal Result Performing Organization Address [facility] de Phone Number CDR HISTORICAL RESULTS * (ABNORMAL) Plasma prothrombin time (PT) (07/22/2016 7:09 AM CDT) Prothrombin time (PT) 14.7(H) 10.0 - 13.0 seconds CDR HISTORICAL RESULTS INR 1.2 0.9 - 1.2 CDR HISTOR ICAL RESULTS Comment: INDICATION: ORTHOPEDIC Total Hip and Knee Arthroplasty 1.8 to 2.6 Hip Fracture 1.8 to 2.6 CARDIOLOGY Atrial Fibrillation 2.0 to 3.0 Cardiomyopathy 2.0 to 3.0 Myocardial Infarction 2.0 to 3.0 Non-confederated yakama Valves 2.0 to 3.5 TREATMENT OF VENOUS THRMBOSIS Deep Vein Thrombosis 2.0 to 3.0 Pulmonary Embolism 2.0 to 3.0 Plasma 07/22/2016 7:09 AM CDT Oracio Love MD LAB BLOOD ORDERABLES Fi nal Result Performing Organization Address [facility] de Phone Number CDR HISTORICAL RESULTS * Plasma basic metabolic panel (07/22/2016 7:09 AM CDT) Sodium 141 136 - 146 mmol/L CDR HISTORICAL RESULTS K, pl 3.5 3.3 - 4.9 mmol/L CDR HISTORICAL RESULTS Chloride 104 98 - 108 mmol/L CDR HISTORICAL RESULTS CO2 30 22 - 33 mmol/L CDR HISTORICAL RESULTS BUN 14 7 - 18 mg/dl CDR HISTORICAL RESULTS Glucose 114 70 - 140 mg/dl CDR HISTORICAL RESULTS Comment: Glucose is assumed to be non-fasting. ?? Fasting Glucose normal ranges are: 0 days - 2 months: ? 40 mg/dL - 100 mg/dL 2 months - 999 years: ?70 mg/dL - 99 mg/dL Creatinine 1.22 0.50 - 1.50 mg/dl CDR HISTORICAL RESULTS eGFR 43 ml/min/1.7 3 m2 CDR HISTORICAL RESULTS Comment: GFR Reference Range: = > 60 mL/min/1.73 m2 This result has been calculated assuming the patient is Non-. ??If the patient is , please multiply this result by 1.21. The GFR value is not recommended for medication dose adjustment for renal function, creatinine clearance values should be used. Calcium 9.2 8.5 - 10.5 mg/dl CDR HISTORICAL RESULTS Plasma 07/22/2016 7:09 AM CDT Result [facility] Oracio Love MD LAB BLOOD ORDERABLES Fi nal Result CDR HISTORICAL RESULTS * Cardiac Catheterization (07/22/2016 6:37 AM CDT) Anatomical Region Laterality Modality X-Ray Angiograph y 07/22/2016 6:37 AM CDT Historical Provider CV CARDIAC CATH PROCEDURE S Final Result * ELECTROCARDIOGRAPHY (ECG) (07/22/2016) Narrative 07/22/2016 Ordered by an unspecified provider. 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
--- OUTSIDE RECORDS SUMMARY | 2024-10-22 00:31 | XMS_ITS | Encounter Summary ---
Author Organization [facility] Address [address] [facility] [address] [place] [address] Care Team Providers Care Ornamenter Hand Name Role Phone Priscilla Barrera MD Primary Care Provider [phone] Priscilla Barrera MD Primary Care Provider [phone] Priscilla Barrera MD Primary Care Provider Kali Hunt MD Primary Care Provider [phone] Devaughn Macias MD Primary Care Provider Denis Platt MD Primary Care Provide r Gideon Campbell MD Primary Care Provider Encounter Details Date Type Department Care Team (Late st Contact Info) Description 07/22/2016 Orders Only [facility] Provider, MD Peggy [address] [place] [address] Social History Tobacco Use Types Packs/Day Years Used Date Smoking Tobacco: Former Cigarettes Q uit: 10/11/1977 Alcohol Use Standard Drinks/Week Comments Yes 0 (1 standard drink = 0.6 oz pur e alcohol) Comments Unknown Sex and Gender Information Value Date Recorded Sex Assigned at Not on file Legal Sex Female 8:30 AM NETWORK COMMUNICATIONS ENGINEER Gender Identity Female 10/06/2021 4:28 PM NETWORK COMMUNICATIONS ENGINEER Sexual Orientation Choose not to disclose 2020 4:28 PM NETWORK COMMUNICATIONS ENGINEER documented as of this encounter Plan of Treatment Not on file documented as of this encounter Procedures Procedure Name Priority Date/Time Associated Diagnosis Comments CARDIOLOGY REPORT 07/22/2016 documented in this encounter Results * CARDIOLOGY REPORT (07/22/2016) Anatomical Region Laterality Modality Other Narrative 07/22/2016 Ordered by an unspecified provider. us Historical Provider CV CARDIAC SERVICES FRANCISCO J PRUETT Final Result documented in this encounter Visit Diagnoses Not on filedocumented in this encounter Care Teams Ornamenter Hand Relationship Specialty Start Date End Date Priscilla Barrera MD [address] [place] [address] PCP - General 01/08/17 02/07/19 Priscilla Barrera MD [address] [place] [address] PCP - General 08/27/16 01/07/17 Priscilla Barrera MD [address] [place] [address] PCP - General 01/30/16 08/26/16 Kali Hunt MD [address] [place] [address] PCP - General Family Medicine 02/08/19 01/30/20 Devaughn Macias MD [address] [place] [address] PCP - General Family Medicine 01/31/20 01/13/22 Denis Platt MD [address] [place] [address] PCP - General Family Medicine 01/14/22 07/18/23 Gideon Campbell MD [address] [facility] [address] [place] [address] PCP - General Family Medicine 07/19/23 documented as of this encounter
--- OUTSIDE RECORDS SUMMARY | 2024-10-22 00:43 | XMS_ITS | Continuity of Care Document ---
Author Organization [facility] Address [address] [place] [address] Phone Care Team Providers Care Tire Building Supervisor Name Role Phone Zimmer OD, Heber [...] Diagnoses Date Provider Providers Copied on Encounter [facility], [address], [place], [place], [id number], [place] tel:[phone] [facility] No Information [phone] Zimmer OD Heber. [address] , [address], [place], [address], [place]. tel:[phone] [facility], [address] [place] [address] [address], [place], [place], [id number], tel:[phone] [facility] No Information [phone] Zimmer OD Heber. [address] , [address], [place], [place], [facility], [place]. tel:[phone] [facility], [address] [place] [address] [address], [place], [place], [id number], [place] tel:[phone] [facility] No Information [phone] Doisy Edward. [address] , [address], [place], [place], [facility], [place]. tel:[phone] Referring Provider: Heber Zimmer OD A, [facility] [address], [place], [place], [facility]. tel:[phone] Office/outpat ient Visit, [facility] [address] [place] [address] [address], [place], [place], [id number], tel:[phone] [facility] No Information 201 0 Doisy Edward. [address], [place], [place], [facility], [place]. tel:[phone] Referring Provider: Heber Zimmer OD A, [facility] [address], [place], [facility]. tel:[phone] [facility], [address] [place] [address] [address], [place], [place], [id number], [place] tel:[phone] [facility] No Information [phone] Zimmer OD Heber. [address] , [address], [place], [facility], [place]. tel:[phone] [facility], [address] [place] [address] [address], [place], [place], [id number], [place] tel:[phone] [facility] No Information [phone] Doisy Edward. [address] , [address], [place], [place], [facility], . tel:[phone] [facility], [address] [place] [address] [address], [place], [place], [id number], tel:[phone] [facility] No Information [address]athya Nain. [address], [address], [place], [facility], . tel:[phone] Referring Provider: Heber Plunkett, [address], [place], [facility]. tel:[phone] Office/outpat ient Visit, [facility], [address] [place] [address] [address], [place], [place], [id number], tel:[phone] [facility] No Information [address] 9 [facility] Nain. [facility] [address] [facility], [address], [place], [facility], . tel:[phone] Referring Provider: Heber Plunkett, [address], [place], [facility]. tel:[phone] [facility], [address] [place] [address] [address], [place], [place], [id number], tel:[phone] [facility] No Information 5[address] 9 Zimmer OD Heber. [facility] [address] [address], [address], [place], [place], [facility], [place]. tel:[phone] Family History Family Member Type Diagnosis Age At Onset No Information Payers Payer name Insurance type Covered libertarian ID Authoriza tion(s) No Information Social History [...]
--- OUTSIDE RECORDS SUMMARY | 2024-10-22 00:52 | XMS_ITS | Encounter Summary ---
Author Organization [facility] Address [address] [place] [address] Care Team Providers Care Labor Specialist Name Role Phone Gideon Campbell MD Primary Care Provider [phone] Encounter Details Date Type Department Care Team (Late st Contact Info) Description 10/18/[address] [facility] Cardiology [address] [place] [address] Andrade Brown MD [employer] [place] [address] Social History Tobacco Use Types Packs/Day Years [...] on file Legal Sex Female 8:30 AM REFRIGERATOR CAR ICER Gender Identity Female 10/06/2021 4:28 PM REFRIGERATOR CAR ICER Sexual Orientation Choose not to disclose 2020 4:28 PM REFRIGERATOR CAR ICER documented as of this encounter Miscellaneous Notes * Telephone Encounter - Jacque Hitchcock RN - 10/22/2023 10:21 AM REFRIGERATOR CAR ICER Unable to reach pt by phone, [employer] message sent. IGERATOR CAR ICER * Telephone Encounter - Jacque Hitchcock RN - 10/20/2023 1:55 PM REFRIGERATOR CAR ICER LM on with response from [facility]. Requested pt return call to schedule a f/u in the office with [facility]. IGERATOR CAR ICER * Telephone Encounter - Jacque Hitchcock RN - 10/18/2023 4:55 PM REFRIGERATOR CAR ICER Spoke with pt after getting INR results [...] pt does not have a f/u with [facility]. Will forward to [facility]. IGERATOR CAR ICER documented in this encounter Plan of Treatment Not on file documented as of this encounter Visit Diagnoses Not on filedocumented in this encounter Care Teams Labor Specialist Relationship Specialty Start Date End Date Gideon Campbell MD [address] [place] [address] [place] [address] PCP - General Family Medicine 07/19/23 documented as of this encounter
--- OUTSIDE RECORDS SUMMARY | 2024-10-22 00:52 | XMS_ITS | Encounter Summary ---
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 Social History [...] on file Legal Sex Female 8:30 AM CIRCUS SUPERVISOR Gender Identity Female 10/06/2021 4:28 PM CIRCUS SUPERVISOR Sexual Orientation Choose not to disclose 2020 4:28 PM CIRCUS SUPERVISOR documented as of this encounter Plan of Treatment Not on file documented as of this encounter Visit Diagnoses Diagnosis Atrial fibrillation (CMS/HCC) [I48.91]- Primary Atrial fibrillation [facility] 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 documented in this encounter Care Teams Multi Share Program Coordinator Relationship Specialty Start Date End Date Gideon Campbell MD 2 [facility] [place] [id number] PCP - General Family Medicine 07/19/23 documented as of this encounter
--- OUTSIDE RECORDS SUMMARY | 2024-10-22 00:52 | XMS_ITS | Encounter Summary ---
Author Organization [facility] Address [address] [place] [address] Care Team Providers Care Blind Cleaner Name Role Phone Gideon Campbell MD Primary Care Provider [phone] Encounter Details Date Type Department Care Team (Late st Contact Info) Description 12/23/2023 Orders Only [facility] Cancer [facility] 4 [facility] [address] [place] [address] Luis F Lofton MD [address] [place] [address] [address] [place] [address] Social History Tobacco Use Types Packs/Day Years [...] on file Legal Sex Female 8:[address]ROL OFFICER Gender Identity Female 10/06/2021 4:[address] PATROL OFFICER Sexual Orientation Choose not to disclose 2020 4:[address] PATR[address] OFFICER documented as of this encounter Plan of Treatment Not on file documented as of this encounter Visit Diagnoses Not on filedocumented in this encounter Care Teams Blind Cleaner Relationship Specialty Start Date End Date Gideon Campbell MD [address] [facility] [address] ROJ[address] [place] [address] PCP - General Family Medicine 07/19/23 documented as of this encounter
--- OUTSIDE RECORDS SUMMARY | 2024-10-22 00:52 | XMS_ITS | Encounter Summary ---
Author Organization [facility] Address [address] [place] [address] Phone Care Team Providers Care Mediation Commissioner Name Role Phone Gideon Campbell MD Primary Care Provider [phone] Encounter Details Date Type Department Care Team (Late st Contact Info) Description 12/23/2023 Telephone [facility] Oncology [address] [place] [address] [address] Luis F Lofton MD [address] [place] [address] Social History Tobacco Use Types Packs/Day Years [...] on file Legal Sex Female 8:30 AM STAND UP COMEDIAN Gender Identity Female 10/06/2021 4:28 PM STAND UP COMEDIAN Sexual Orientation Choose not to disclose 2020 4:28 PM STAND UP COMEDIAN documented as of this encounter Miscellaneous Notes [...] it, can you please call her at [phone] documented in this encounter Plan of Treatment Not on file documented as of this encounter Visit Diagnoses Not on filedocumented in this encounter Care Teams Mediation Commissioner Relationship Specialty Start Date End Date Gideon Campbell MD [address] [facility] [place] [address] PCP - General Family Medicine 07/19/23 documented as of this encounter
--- OUTSIDE RECORDS SUMMARY | 2024-10-22 00:52 | XMS_ITS | Continuity of Care Document ---
Author Organization [facility] Address [address] [place] [address] Phone Care Team Providers Care Curb Attendant Name Role Phone Zimmer OD, Heber Unavailable [...] Diagnoses Date Provider Providers Copied on Encounter [facility], [address], [place], [place], [address], [place] tel:[phone] [facility] No Information 8-201 0 Zimmer OD Heber. [address] , [address], [place], [address], [place]. tel:[phone] [facility], [address] [place] [address] [address], [place], [place], [address], tel:[phone] [facility] No Information 0 [phone] Zimmer OD Heber. [address] , [address], [place], [place], [facility], [place]. tel:[phone] [facility], [address] [place] [address] [address], [place], [place], [id number], [place] tel:[phone] [facility] No Information 0 [phone] Doisy Edward. [address] , [address], [place], [facility], [place]. tel:[phone] Referring Provider: Heber Zimmer OD A, [facility] [address], [place], [facility]. tel:[phone] Office/outpat ient Visit, [facility], [address] [place] [address] [address], [place], [place], [id number], tel:[phone] [facility] No Information 201 0 Doisy Edward. [address], [place], [facility], [place]. tel:[phone] Referring Provider: Heber Zimmer OD A, [facility] [address], [place], [facility]. tel:[phone] [facility], [address] [place] [address] [address], [place], [place], [address], [place] tel:[phone] [facility] No Information 3-200 9 Zimmer OD Heber. [address] , [address], [place], [facility], [place]. tel:[phone] [facility], [address] [place] [address] [address], [place], [place], [address], [place] tel:[phone] [facility] No Information 9-200 9 Doisy Edward. [address] , [address], [place], [facility], . tel:[phone] [facility], [address] [place] [address] [address], [place], [place], [address], tel:[phone] [facility] No Information 8[address] Sathya Nain. [address], [address], [place], [facility], . tel:[phone] Referring Provider: Heber Plunkett, [address], [place], [facility]. tel:[phone] Office/outpat ient Visit, [facility], [address] [place] [address] [address], [place], [place], [address], tel:[phone] [facility] No Information 200 9 [facility] Nain. [facility], [address], [place], [facility], . tel:[phone] Referring Provider: Heber Plunkett, [address], [place], [facility]. tel:[phone] [facility], [address] [place] [address] [address], [place], [place], [address], tel:[phone] [facility] No Information 5200 9 Zimmer OD Heber. [facility] [address] [facility], [address], [place], [place], [facility], [place]. tel:[phone] Family History Family Member Type Diagnosis Age [...]
--- OUTSIDE RECORDS SUMMARY | 2024-10-22 00:52 | XMS_ITS | Encounter Summary ---
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 Gender Identity Female 10/06/2021 4:28 PM RAILROAD TRACK REPAIR SUPERVISOR Sexual Orientation Choose not to disclose 2020 4:28 PM RAILROAD TRACK REPAIR SUPERVISOR documented as of this encounter Nursing Notes [...] for appointments and labs placed in chart./res ROAD TRACK REPAIR SUPERVISOR documented in this encounter Plan of Treatment Not on file documented as of this encounter Visit Diagnoses Not on filedocumented in this encounter Care Teams Senior Web Applications Developer Relationship Specialty Start Date End Date Gideon Campbell MD [address] [place] [address] [address] PCP - General Family Medicine 07/19/23 documented as of this encounter
--- OUTSIDE RECORDS SUMMARY | 2024-10-22 00:52 | XMS_ITS | Clinical Summary ---
Author Organization [facility] Address [address] [place] [address] Care Team Providers Care Baker Name Role Phone Gideon Campbell MD Primary Care Provider [phone] Allergies No known active allergies Medications ascorbic [...] 06/15/2023 Assessment & Plan (10/18/2023 2:47 PM SUPERVISOR ROVING DEPARTMENT): Worsening sx at this time Weight loss 01/27/2023 Assessment & Plan (10/18/2023 2:38 PM SUPERVISOR ROVING DEPARTMENT): Wt Readings from Last 3 Encounters: 10/18/23 [...] is recommended that he remain anticoagulated for thromboprophylaxis.[id number]=3. Left carotid bruit 10/13/2017 Ventricular ectopy 05/17/2017 [...] 04/07/2017 Assessment & Plan (10/18/2023 2:39 PM SUPERVISOR ROVING DEPARTMENT): BP Readings from Last 3 Encounters: 10/18/23 [...] EKG. Assessment & Plan (08/19/2017 10:05 AM SUPERVISOR ROVING DEPARTMENT): Post repeat ablation of her highly symptomatic [...] an office visit and 12 lead EKG. [facility] 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 0 03/29/2017 [...] bleeding Assessment & Plan (08/19/2017 10:05 AM SUPERVISOR ROVING DEPARTMENT): She remains anticoagulated on Coumadin. She has a AXK3YS-DDVy score of 4, therefore it is recommended that she remain anticoagulated for thromboprophylaxis. 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 Family History Medical [...] file Legal Sex Female 8:30 AM SUPERVISOR ROVING DEPARTMENT Gender Identity Female 10/06/2021 4:28 PM SUPERVISOR ROVING DEPARTMENT Sexual Orientation Choose not to disclose 2020 4:28 PM SUPERVISOR ROVING DEPARTMENT Obstetrics History Last Filed Vital Signs Vital [...] Body Mass Index 21.52 12/13/2023 10:47 AM SUPERVISOR ROVING DEPARTMENT Plan of Treatment Health Maintenance Due Date [...] Screening 10/18/2024 10/18/2023, 07/29/2023, 07/08/2023 Insurance MEDICARE [facility] MEDICARE [employer] MEDICARE [employer] Care Teams Baker Relationship Specialty Start Date End Date Gideon Campbell MD [address] [facility] [place] [address] PCP - General Family Medicine 07/19/23
--- OUTSIDE RECORDS SUMMARY | 2024-10-22 00:52 | XMS_ITS | Encounter Summary ---
Author Organization [facility] Address [address] [place] [address] Phone Care Team Providers Care Daily Sales Audit Clerk Name Role Phone Gideon Campbell MD Primary Care Provider Encounter Details Date Type Department Care Team (Late st Contact Info) Description 12/23/2023 Orders Only [facility] Oncology [address] [place] [address] Medical [facility] [address] [address] Luis F Lofton MD [address] [place] [address] Social History Tobacco Use Types Packs/Day Years [...] on file 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
--- OUTSIDE RECORDS SUMMARY | 2024-10-22 00:52 | XMS_ITS | Encounter Summary ---
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
--- OUTSIDE RECORDS SUMMARY | 2024-10-22 00:52 | XMS_ITS | Encounter Summary ---
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 Gender Identity Female 10/06/2021 4:28 PM BIOLOGY LECTURER Sexual Orientation Choose not to disclose 2020 4:28 PM BIOLOGY LECTURER documented as of this encounter Plan of Treatment Not on file documented as of this encounter Procedures Procedure Name Priority Date/Time Associated Diagnosis Comments EGFR Routine 01/31/2024 9:20 AM CDT 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, unspecified iron 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 type FPC (current) use of anticoagulants DIFFERENTIAL AUTO Routine 01/31/2024 9:2 0 AM CDT 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, unspecified iron 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 type CBC WITH AUTO DIFFERENTIAL Routine 01/31/2024 9:20 AM CDT 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, unspecified iron 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 type COMPREHENSIVE METABOLIC PANEL Routine 01/31/2024 9:20 AM CDT 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, unspecified iron 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 type FPC (current) use of anticoagulants documented in this [...] was last reviewed 2021. Testing performed by: [place], [address] Blood 01/31/2024 9:20 AM CDT 01/31/2024 9:38 AM CDT us Luis F Lofton MD LAB BLOOD ORDERABLES Final Re sult [facility] [address] [facility] Department [place] [address] * (ABNORMAL) Differential, auto (01/31/2024 9:20 AM CDT) Neutrophil abs 4.4 1.5 - 6.5 K/cumm Comment:Testing performed by : [place], [address] Imm gran abs 0.0 0.0 - 0.1 K/cumm [facility] ([place]) Comment:Testing performed by : [place], [address] Lymphocyte abs 0.5(L) 0.8 - 3.3 K/cumm [facility] ([place]) Comment:Testing performed by : [facility], [place], [address] Monocyte abs 0.5 0.2 - 0.8 K/cumm [facility] ([place]) Comment:Testing performed by : [facility], [place], [address] Eosinophil abs 0.0 0.0 - 0.5 K/cumm [facility] ([place]) Comment:Testing performed by : [place], [address] Basophil abs 0.0 0.0 - 0.1 K/cumm [facility] ([place]) Comment:Testing performed by : [facility], [place], [address] Neutrophil pct 79.3 % [facility] ([place]) Comment: Interpretive Data Percent cell count reference ranges are not reported, since discordance with absolute values may lead to misinterpretation of CBC data. Current Interpretive Data was last revised on 2018. Testing performed by: [place], [address] Imm gran pct 0.4 % [facility] ([place]) Comment: Interpretive Data Percent cell count reference ranges are not reported, since discordance with absolute values may lead to misinterpretation of CBC data. Current Interpretive Data was last revised on 2018. Testing performed by: [place], [address] Lymphocyte pct 9.7 % [facility] ([place]) Comment: Interpretive Data Percent cell count reference ranges are not reported, since discordance with absolute values may lead to misinterpretation of CBC data. Current Interpretive Data was last revised on 2018. Testing performed by: [place], [address] Monocyte pct 9.6 % [facility] ([place]) Comment: Interpretive Data Percent cell count reference ranges are not reported, since discordance with absolute values may lead to misinterpretation of CBC data. Current Interpretive Data was last revised on 2018. Testing performed by: [place], [address] Eosinophil pct 0.5 % [facility] ([place]) Comment: Interpretive Data Percent cell count reference ranges are not reported, since discordance with absolute values may lead to misinterpretation of CBC data. Current Interpretive Data was last revised on 2018. Testing performed by: [place], [address] Basophil pct 0.5 % [facility] ([place]) Comment: Interpretive Data Percent cell count reference ranges are not reported, since discordance with absolute values may lead to misinterpretation of CBC data. Current Interpretive Data was last revised on 2018. Testing performed by: [place], [address] Blood 01/31/2024 9:20 AM CDT 01/31/2024 9:41 AM CDT us Mia Barger MECHANICAL ESTIMATOR LAB BLOOD ORDERABLES Final Result [facility] ([place]) 1 [facility] Department [place] [address] * (ABNORMAL) Comprehensive metabolic panel (01/31/2024 9:20 AM CDT) Sodium 138 135 - 145 mmol/L Comment:Testing performed by : [facility], [place], [address] Potassium, pl 4.1 3.3 - 4.9 mmol/L [facility] ([place]) Comment:Testing performed by : [facility], [facility], [place], [address] Chloride 101 97 - 110 mmol/L [facility] ([place]) Comment:Testing performed by : [facility], [facility], [place], [address] CO2 27 22 - 32 mmol/L [facility] ([place]) Comment:Testing performed by : [facility], [place], [address] Anion gap 10 2 - 15 mmol/L [facility] ([place]) Comment:Testing performed by : [facility], [facility], [place], [address] BUN 9 6 - 25 mg/dL [facility] ([place]) Comment:Testing performed by : [facility], [place], [address] Creatinine 0.72 0.60 - 1.10 mg/dL [facility] ([place]) Comment:Testing performed by : [facility], [place], [address] Glucose 108 70 - 199 mg/dL [facility] ([place] Comment: Interpretive Data Fasting glucose >/= 126 [...] was last revised 2022. Testing performed by: [facility], [facility], [place], [address] Calcium 8.9 8.5 - 10.3 mg/dL [facility] ([place]) Comment:Testing performed by : [facility], [facility], [place], [address] Bilirubin, total 0.4 0.1 - 1.2 mg/dL [facility] ([place]) Comment:Testing performed by : [facility], [facility], [place], [address] Protein, pl 5.9(L) 6.5 - 8.5 g/dL [facility] ([place]) Comment:Testing performed by : [facility], [facility], [place], [address] Albumin 2.9(L) 3.5 - 5.0 g/dL [facility] ([place]) Comment:Testing performed by : [facility], [facility], [place], [address] Alk phos 127 40 - 130 Units/L [facility] ([place]) Comment:Testing performed by : [facility], [facility], [place], [address] ALT 5(L) 7 - 45 Units/L [facility] ([place]) Comment:Testing performed by : [facility], [facility], [place], [address] AST 7(L) 10 - 45 Units/L [facility] ([place]) Comment:Testing performed by : [facility], [place], [address] Blood 01/31/2024 9:20 AM CDT 01/31/2024 9:38 AM CDT Narrative [facility] - 01/31/2024 10:05 AM CDT [employer] us Luis F Lofton MD LAB BLOOD ORDERABLES Final Re sult [facility] ([place] 1 [facility] Department [place] [address] * (ABNORMAL) CBC with auto differential (01/31/2024 9:20 AM CDT) WBC 5.2 3.8 - 9.9 K/cumm Comment:Testing performed by : [facility] [place], [address], Medical [address], [place] [address] Hgb 7.5(L) 11.9 - 15.5 g/dL [facility] ([place]) Comment:Testing performed by : [facility] [address], Medical Office [facility] [address], [place] [address] Hct 26.2(L) 35.6 - 45.5 % [facility] ([place]) Comment:Testing performed by : [facility] [address], Medical Office [facility] [address], [place] [address] Plt 468(H) 150 - 400 K/cumm [facility] ([place]) Comment:Testing performed by : [facility] [address], Medical Office [facility] [address], [place] [address] MPV 8.7(L) 9.1 - 12.3 fL [facility] ([place]) Comment:Testing performed by : [facility] [address], Medical Office [facility] [address], [place] [address] RBC 3.64(L) 3.90 - 5.20 M/cumm [facility] ([place]) Comment:Testing performed by : [facility] [address], Medical Office [facility] [address], [place] [address] MCV 72.0(L) 81.3 - 96.4 fL [facility] ([place]) Comment:Testing performed by : [facility] [address], Medical Office [facility] [address], [place] [address] MCH 20.6(L) 27.1 - 33.3 pg [facility] ([place]) Comment:Testing performed by : [facility] [address], Medical Office [facility] [address], [place] [address] MCHC 28.6(L) 32.3 - 35.7 g/dL [facility] ([place]) Comment:Testing performed by : [facility] [address], Medical Office [facility] [address], [place] [address] RDW CV 21.4(H) 11.1 - 14.9 % [facility] ([place]) Comment:Testing performed by : [facility] [address], Medical Office [facility] [address], [place] [address] RDW SD 56.4(H) 35.7 - 48.1 fL [facility] ([place]) Comment:Testing performed by : [facility] [place], [address] [facility] , Medical Office [facility] [address], [place] [address] NRBC abs Not Measured 0.00 - 0.01 K/cumm [facility] ([place]) Comment:Testing performed by : [facility] [place], [address] [facility] , Medical Office [facility] [address], [place] [address] Blood 01/31/2024 9:20 AM CDT 01/31/2024 9:41 AM CDT Mia Barger MECHANICAL ESTIMATOR LAB BLOOD ORDERABLES Final Result [facility] ([place]) 1 [facility] Department [place] [address] documented in this encounter Visit Diagnoses Diagnosis 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, unspecified iron 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 type 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
--- OUTSIDE RECORDS SUMMARY | 2024-10-22 00:52 | XMS_ITS | Encounter Summary ---
Author Organization [facility] Healthcare Address [address] [place] [address] Care Team Providers Care Retail Coordinator Name Role Phone Gideon Campbell MD Primary Care Provider [phone] Reason for Visit * Diagnostic Lab (Routine) - Canceled Specialty Diagnoses / Procedures Referred By Lyndsey t Referred To Contact Lab Diagnoses 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, unspecified iron 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 type PAD (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) (HCC) Procedures ESR - Miscellaneous Test ESR - Miscellaneous Test Luis F Lofton MD [address] [place] [id number] Phone: tel: fax: Referral ID Status Reason Start Date Expiration Date V isits Requested Visits Authorized [id number] Canceled 10/28/2023 11/26/2024 1 1 Encounter Details Date Type Department Care Team (Late st Contact Info) Description 12/13/2023 9:45 AM CASINO PORTER Lab [address] [place] [phone] 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, unspecified iron 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 type (Primary Dx); PAD (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) (HCC); 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 Social History Tobacco [...] on file Legal Sex Female 8:30 AM CASINO PORTER Gender Identity Female 10/06/2021 4:28 PM CASINO PORTER Sexual Orientation Choose not to disclose 2020 4:28 PM CASINO PORTER documented as of this encounter Plan of Treatment Not on file documented as of this encounter Procedures Procedure Name Priority Date/Time Associated Diagnosis Comments ERYTHROCYTE SEDIMENTATION RATE Routine 12/13/2023 11:30 AM CASINO PORTER PROTIME-INR Routine 12/13/2023 11:30 AM CASINO PORTER shelter (current) use of anticoagulants DIFFERENTIAL AUTO Routine 12/13/2023 10: 15 AM CASINO PORTER 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, unspecified iron 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 type IRON PROFILE W/ IBC Routine 12/13/2023 1 0:15 AM CASINO PORTER 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, unspecified iron 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 type CBC WITH AUTO DIFFERENTIAL Routine 12/13/2023 10:15 AM CASINO PORTER 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, unspecified iron 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 type ERYTHROCYTE SEDIMENTATION RATE Routine 12/13/2023 10:15 AM CASINO PORTER 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, unspecified iron 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 type RETICULOCYTES Routine 12/13/2023 10:15 AM CASINO PORTER 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, unspecified iron 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 type FERRITIN Routine 12/13/2023 10:15 AM CASINO PORTER 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, unspecified iron 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 type documented in this encounter Results * (ABNORMAL) Erythrocyte sedimentation rate (12/13/2023 11:30 AM CASINO PORTER) Erythrocyte sedimentation rate 99(H) 1 - 30 mm/hr [facility] ([place]) Comment:Testing performed by : [place], [address] Blood 12/13/2023 11:3 0 AM CASINO PORTER 12/13/2023 12:11 PM CASINO PORTER us Luis F Lofton MD LAB BLOOD ORDERABLES Final Re sult [facility] ([place]) [address] [place] [address] Department [place] [address] * (ABNORMAL) Protime-INR (12/13/2023 11:30 AM CASINO PORTER) Pathologist [facility] PT 14.2(H) 10.3 - 13.7 sec [facility] ([place]) Comment:Testing performed by : [facility], [place], [address] INR 1.25(H) 0.90 - 1.20 [facility] ([place]) Comment: Interpretive data Oral anticoagulant therapeutic ranges: Venous thromboembolism prophylaxis or treatment: 2.0-3.0 CARDIOLOGY Standard range: 2.0-3.0 High-intensity range: 2.5-3.5 Refer to indication-specific guidelines for appropriate target ranges for prosthetic heart valve replacement. Current interpretive data was last revised on 2019. Testing performed by: [facility], [place], [address] Blood 12/13/2023 11:3 0 AM CASINO PORTER 12/13/2023 12:04 PM CASINO PORTER us Mia Barger NP LAB BLOOD ORDERABLES Final Result [facility] ([place]) 1 [facility] Department [place] [address] * (ABNORMAL) Differential, auto (12/13/2023 10:15 AM CASINO PORTER) Pathologist [facility] Neutrophil abs 5.0 1.5 - 6.5 K/cumm [facility] ([place]) Comment:Testing performed by : [facility] [address] Medical [address], [place] [address] Imm gran abs 0.0 0.0 - 0.1 K/cumm [facility] ([place]) Comment:Testing performed by : [facility] [address], Medical [address], [place] [address] Lymphocyte abs 0.7(L) 0.8 - 3.3 K/cumm [facility] ([place]) Comment:Testing performed by : [facility] [address], [address], [place] [address] Monocyte abs 0.4 0.2 - 0.8 K/cumm [facility] ([place]) Comment:Testing performed by : [facility] [address], Medical Office [facility] [address], [place] [address] Eosinophil abs 0.0 0.0 - 0.5 K/cumm [facility] ([place]) Comment:Testing performed by : [facility] [address], Medical Office [facility] [address], [place] [address] Basophil abs 0.0 0.0 - 0.1 K/cumm [facility] ([place]) Comment:Testing performed by : [facility] [address], Medical Office [facility] [address], [place] [address] Neutrophil pct 81.6 % [facility] ([place]) Comment: Interpretive Data Percent cell count reference ranges are not reported, since discordance with absolute values may lead to misinterpretation of CBC data. Current Interpretive Data was last revised on 2022. Testing performed by: [facility] [address], Medical Office [facility] [address], [place] [address] Imm gran pct 0.2 % [facility] ([place]) Comment: Interpretive Data Percent cell count reference ranges are not reported, since discordance with absolute values may lead to misinterpretation of CBC data. Current Interpretive Data was last revised on 2022. Testing performed by: [facility] [address], Medical Office [address], [place] [address] Lymphocyte pct 10.9 % [facility] ([place]) Comment: Interpretive Data Percent cell count reference ranges are not reported, since discordance with absolute values may lead to misinterpretation of CBC data. Current Interpretive Data was last revised on 2022. Testing performed by: [facility] [address], Medical Office [facility] [address], [place] [address] Monocyte pct 6.5 % [facility] ([place]) Comment: Interpretive Data Percent cell count reference ranges are not reported, since discordance with absolute values may lead to misinterpretation of CBC data. Current Interpretive Data was last revised on 2022. Testing performed by: [facility] [address], Medical Office [facility] [address], [place] [address] Eosinophil pct 0.6 % [facility] ([place]) Comment: Interpretive Data Percent cell count reference ranges are not reported, since discordance with absolute values may lead to misinterpretation of CBC data. Current Interpretive Data was last revised on 2022. Testing performed by: [facility] [address], Medical Office [facility] [address], [place] [address] Basophil pct 0.2 % [facility] ([place]) Comment: Interpretive Data Percent cell count reference ranges are not reported, since discordance with absolute values may lead to misinterpretation of CBC data. Current Interpretive Data was last revised on 2022. Testing performed by: [facility] [address], Medical Office [facility] [address], [place] [address] Blood 12/13/2023 10:1 5 AM CASINO PORTER 12/13/2023 10:20 AM CASINO PORTER us Luis F Lofton MD LAB BLOOD ORDERABLES Final Re sult [facility] ([place]) 1 [facility] Department [place] [address] * (ABNORMAL) CBC with auto differential (12/13/2023 10:15 AM CASINO PORTER) WBC 6.2 3.8 - 9.9 K/cumm [facility] ([place]) Comment:Testing performed by : [facility] [address], Medical [address], [place] [address] Hgb 7.5(L) 11.9 - 15.5 g/dL [facility] ([place]) Comment:Testing performed by : [facility] [address], Medical Office [address], [place] [address] Hct 26.7(L) 35.6 - 45.5 % [facility] ([place]) Comment:Testing performed by : [facility] [address], Medical Office [facility] [address], [place] [address] Plt 559(H) 150 - 400 K/cumm [facility] ([place]) Comment:Testing performed by : [facility] [address], Medical Office [facility] [address], [place] [address] MPV 8.1(L) 9.1 - 12.3 fL [facility] ([place]) Comment:Testing performed by : [facility] [address], Medical Office [facility] [address], [place] [address] RBC 3.98 3.90 - 5.20 M/cumm [facility] ([place]) Comment:Testing performed by : [facility] [address], Medical Office [facility] [address], [place] [address] MCV 67.1(L) 81.3 - 96.4 fL [facility] ([place]) Comment:Testing performed by : [facility] [address], Medical Office [facility] [address], [place] [address] MCH 18.8(L) 27.1 - 33.3 pg [facility] ([place]) Comment:Testing performed by : [facility] [address], Medical Office [address], [place] [address] MCHC 28.1(L) 32.3 - 35.7 g/dL [facility] ([place]) Comment:Testing performed by : [facility] [address], Medical Office [facility] [address], [place] [address] RDW CV 19.2(H) 11.1 - 14.9 % [facility] ([place]) Comment:Testing performed by : [facility] [address], Medical Office [facility] [address], [place] [address] RDW SD 47.1 35.7 - 48.1 fL [facility] ([place]) Comment:Testing performed by : [facility] [address], Medical Office [facility] [address], [place] [address] NRBC abs Not Measured 0.00 - 0.01 K/cumm [facility] ([place]) Comment:Testing performed by : [facility] [address], Medical Office [facility] [address], [place] [address] Blood 12/13/2023 10:1 5 AM CASINO PORTER 12/13/2023 10:20 AM CASINO PORTER Luis F Lofton MD LAB BLOOD ORDERABLES Final Re sult Performing Organization Address [facility]/ZIP Co de Phone Number [facility] ([place]) 1 [facility] Department [place] [address] * (ABNORMAL) Reticulocyte Count (12/13/2023 10:15 AM CASINO PORTER) Retics, absolute 0.038 0.020 - 0.087 M/cumm [facility] ([place]) Comment:Testing performed by : [place], [address] Retics 1.0 0.4 - 2.9 % [facility] ([place]) Comment:Testing performed by : [place], [address] Reticulocyte Hgb 17.7(L) 30.5 - 38.0 pg [facility] ([place]) Comment:Testing performed by : [facility], [place], [address] Blood 12/13/2023 10:1 5 AM CASINO PORTER 12/13/2023 10:32 AM CASINO PORTER Luis F Lofton MD LAB BLOOD ORDERABLES Final Re sult Performing Organization Address City/[facility]/ZIP Co de Phone Number [facility] ([place]) 1 [facility] Department [place] [address] * (ABNORMAL) Ferritin (12/13/2023 10:15 AM CASINO PORTER) Ferritin 216(H) 15 - 150 ng/mL [facility] ([place]) Comment:Testing performed by : [place], [address] Blood 12/13/2023 10:1 5 AM CASINO PORTER 12/13/2023 10:32 AM CASINO PORTER Luis F Lofton MD LAB BLOOD ORDERABLES Final Re sult [facility] ([place]) [address] [place] [address] Department [place] [address] * (ABNORMAL) Iron profile w/ IBC (12/13/2023 10:15 AM CASINO PORTER) Iron 14(L) 35 - 145 mcg/dL [facility] ([place]) Comment:Testing performed by : [place], [address] TIBC 172(L) 250 - 400 mcg/dL [facility] ([place]) Comment:Testing performed by : [place], [address] Transferrin saturation 8(L) 20 - 50 % [facility] ([place]) Comment:Testing performed by : [place], [address] Blood 12/13/2023 10:1 5 AM CASINO PORTER 12/13/2023 10:32 AM CASINO PORTER Luis F Lofton MD LAB BLOOD ORDERABLES Final Re sult [facility] ([place]) 1 [facility] Department [place] [address] * (ABNORMAL) Erythrocyte sedimentation rate (12/13/2023 10:15 AM CASINO PORTER) Erythrocyte sedimentation rate 93(H) 1 - 30 mm/hr [facility] ([place]) Comment:Testing performed by : [place], [address] Blood 12/13/2023 10:1 5 AM CASINO PORTER 12/13/2023 10:20 AM CASINO PORTER us Luis F Lofton MD LAB BLOOD ORDERABLES Final Re sult [facility] ([place]) 1 [facility] Department [place] [address] documented in this encounter Visit Diagnoses Diagnosis 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, unspecified iron 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 type- Primary PAD (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) (HCC) Unspecified peripheral vascular disease shelter (current) use of anticoagulants Long-term (current) use of anticoagulants documented in this encounter Orders Appointment Requests Count Last Ordered Date Fi rst Ordered Date ONCBCN LAB APPOINTMENT 1 12/13/2023 documented in this encounter Care Teams Retail Coordinator Relationship Specialty Start Date End Date Gideon Campbell MD 2 [facility] [address] [place] [address] PCP - General Family Medicine 07/19/23 documented as of this encounter
--- OUTSIDE RECORDS SUMMARY | 2024-10-22 00:52 | XMS_ITS | Encounter Summary ---
Author Organization [facility] Address [address] [place] [address] Phone Care Team Providers Care Vehicle Detailer Name Role Phone Gideon Campbell MD Primary Care Provider [phone] Encounter Details Date Type Department Care Team (Late st Contact Info) Description 12/10/2023 Telephone [facility] Oncology [address] [place] [phone] Deborah Armstrong, JACOB Social History Tobacco [...] file Legal Sex Female 8:30 AM INDUSTRIAL RELATIONS WORKER Gender Identity Female 10/06/2021 4:28 PM INDUSTRIAL RELATIONS WORKER Sexual Orientation Choose not to disclose 2020 4:28 PM INDUSTRIAL RELATIONS WORKER documented as of this encounter Miscellaneous Notes * Telephone Encounter - Deborah Armstrong CLT - 12/10/2023 1:50 PM INDUSTRIAL RELATIONS WORKER 12/13/23 appt confirmation STRIAL RELATIONS WORKER documented in this encounter Plan of Treatment Not on file documented as of this encounter Visit Diagnoses Not on filedocumented in this encounter Care Teams Vehicle Detailer Relationship Specialty Start Date End Date Gideon Campbell MD 2 [facility] [address] [address] PCP - General Family Medicine 07/19/23 documented as of this encounter
--- OUTSIDE RECORDS SUMMARY | 2024-10-22 00:52 | XMS_ITS | Encounter Summary ---
Author Organization [facility] Healthcare Address [address] [place] [address] Care Team Providers Care Yard Warehouse Worker Name Role Phone Gideon Campbell MD Primary Care Provider [phone] Reason for Referral * Consultation (Routine) - Authorized Specialty Diagnoses / Procedures Referred By Contac t Referred To Contact Pain Management Diagnoses Chronic joint pain Chronic back pain, unspecified back location, unspecified back pain laterality Gideon Campbell MD [address] [place] [address] [address] [place] [address] Phone: tel: fax: Wendi Washington MD Phone: tel: fax: Referral ID Status Reason Start Date Expiration Date Visits Requested Visits Authorized [id number] Authorized Specialty Services Required 02/15/2024 03/16/2025 1 1 Question Answer Please select the performing region: [facility] [144] To provider: WENDI WASHINGTON [[id number]] # of visits: 1 Comments Or other Provider * Consultation (Routine) - Closed Specialty Diagnoses / Procedures Referred By Contac t Referred To Contact Gastroenterology Diagnoses Other iron 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 Gideon Campbell MD [address] [facility] [address] [place] [address] Phone: tel: fax: Maynor Reyna MD 2 [facility] [address] [place] [address] Phone: tel: fax: Referral ID Status Reason Start Date Expiration Date V isits Requested Visits Authorized [id number] Closed Specialty Services Required 02/15/2024 03/16/2025 1 1 Question Answer Please select the performing region: External Order [171] To provider: MAYNOR REYNA [[id number]] # of visits: 1 Comments [facility] [address]Khalid Reyna (P) [phone] (F) [phone] Encounter Details Date Type Department Care Team (Late st Contact Info) Description 02/15/2024 Orders Only [facility] [place] 2 [facility] [address] [place] [address] Gideon Campbell MD [address] [place] [address] [address] [place] [address] Other iron 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; Chronic joint pain; [...] on file Legal Sex Female 8:30 AM AQUATICS MANAGER Gender Identity Female 10/06/2021 4:28 PM AQUATICS MANAGER Sexual Orientation Choose not to disclose 2020 4:28 PM AQUATICS MANAGER documented as of this encounter Plan [...] laterality documented in this encounter Care Teams Yard Warehouse Worker Relationship Specialty Start Date End Date Gideon Campbell MD [address] [facility] [address] [place] [address] PCP - General Family Medicine 07/19/23 documented as of this encounter
--- OUTSIDE RECORDS SUMMARY | 2024-10-22 00:52 | XMS_ITS | Encounter Summary ---
Author Organization [facility] Healthcare Address [address] [place] [address] Care Team Providers Care General Office Assistant Name Role Phone Gideon Campbell MD Primary Care Provider [phone] Reason for Visit * Reason Comments OP Infusion * Episode Based Medications (Routine) - Closed Specialty Diagnoses / Procedures Referred By Contac t Referred To Contact Diagnoses 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 secondary to inadequate dietary iron intake Anemia, unspecified type Microcytic anemia Luis F Lofton MD [address] [place] [address] Phone: tel: fax: [address] [phone] Phone: tel: Referral ID Status Reason Start Date Expiration Date Visits Re quested Visits Authorized [id number] Closed 12/23/2023 12/22/2024 3 3 Encounter Details Date Type Department Care Team (Late st Contact Info) Description 01/11/2024 9:00 AM CDT Infusion [address] [place] [phone] 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 secondary to inadequate dietary [...] on file Legal Sex Female 8:30 AM LINEMAN Gender Identity Female 10/06/2021 4:28 PM LINEMAN Sexual Orientation Choose not to disclose 2020 4:28 PM LINEMAN documented as of this encounter Last Filed [...] 01/11/2024 documented in this encounter Care Teams General Office Assistant Relationship Specialty Start Date End Date Gideon Campbell MD [address] [facility] [address] [place] [address] PCP - General Family Medicine 07/19/23 documented as of this encounter
--- OUTSIDE RECORDS SUMMARY | 2024-10-22 00:52 | XMS_ITS | Encounter Summary ---
Author Organization [facility] Healthcare Address [address] [place] [address] Care Team Providers Care Sr. Payroll Manager Name Role Phone Gideon Campbell MD Primary Care Provider [phone] Reason for Visit * Reason Comments OP Infusion * Episode Based Medications (Routine) - Closed Specialty Diagnoses / Procedures Referred By Contac t Referred To Contact Diagnoses 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 secondary to inadequate dietary iron intake Anemia, unspecified type Microcytic anemia Luis F Lofton MD [address] [place] [address] Phone: tel: fax: [address] [phone] Phone: tel: Referral ID Status Reason Start Date Expiration Date Visits Re quested Visits Authorized [id number] Closed 12/23/2023 12/22/2024 3 3 Encounter Details Date Type Department Care Team (Late st Contact Info) Description 01/04/2024 2:00 PM CDT Infusion [address] [phone] 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 secondary to inadequate dietary [...] on file Legal Sex Female 8:30 AM PUNCH OPERATOR Gender Identity Female 10/06/2021 4:28 PM PUNCH OPERATOR Sexual Orientation Choose not to disclose 2020 4:28 PM PUNCH OPERATOR documented as of this encounter Last [...] 01/04/2024 documented in this encounter Care Teams Sr. Payroll Manager Relationship Specialty Start Date End Date Gideon Campbell MD 2 [facility] [address] [address] PCP - General Family Medicine 07/19/23 documented as of this encounter
--- OUTSIDE RECORDS SUMMARY | 2024-10-22 00:52 | XMS_ITS | Encounter Summary ---
Author Organization [facility] Healthcare Address [address] [place] [address] Care Team Providers Care Asset Recovery Specialist Name Role Phone Gideon Campbell MD Primary Care Provider Reason for Visit * Reason Onset Date Comments Medical Question/Miscellaneous 02/07/2024 Encounter Details Date Type Department Care Team (Late st Contact Info) Description 02/07/2024 Telephone [facility] Medical Group Primary Care at [address] [phone] Gideon Campbell MD [address] [place] [address] [address] [place] [address] Medical Question/Miscellaneous Social History Tobacco [...] file Legal Sex Female 8:30 AM PIPE FITTINGS MOLDER Gender Identity Female 10/06/2021 4:28 PM PIPE FITTINGS MOLDER Sexual Orientation Choose not to disclose 2020 4:28 PM PIPE FITTINGS MOLDER documented as of this encounter Miscellaneous Notes [...] if rheuymatology will be so helpful at [facility] time, but we can do either. We [...] then. Likely would have to go to [facility] Dx iron defiency anemia [...] patients daughter Nel Evans is, Ph. # [phone]. Please all her back with the advise on all of this. Does message need to be routed? Yes-Action Needed documented in this encounter Plan of Treatment Not on file documented as of this encounter Visit Diagnoses Not on filedocumented in this encounter Care Teams Asset Recovery Specialist Relationship Specialty Start Date End Date Gideon Campbell MD [address] [facility] [address] [place] [address] PCP - General Family Medicine 07/19/23 documented as of this encounter
--- OUTSIDE RECORDS SUMMARY | 2024-10-22 00:52 | XMS_ITS | Encounter Summary ---
Author Organization [facility] Healthcare Address [address] [place] [address] Care Team Providers Care Kineseologist Name Role Phone Gideon Campbell MD Primary Care Provider [phone] Reason for Visit * Reason Comments OP Infusion * Episode Based Medications (Routine) - Closed Specialty Diagnoses / Procedures Referred By Contac t Referred To Contact Diagnoses 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 secondary to inadequate dietary iron intake Anemia, unspecified type Microcytic anemia Luis F Lofton MD [address] [place] [address] Phone: tel: fax: [address] [place] [phone] Phone: tel: Referral ID Status Reason Start Date Expiration Date Visits Re quested Visits Authorized [id number] Closed 12/23/2023 12/22/2024 3 3 Encounter Details Date Type Department Care Team (Late st Contact Info) Description 12/28/2023 9:00 AM CDT Infusion [address] [place] [phone] 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 secondary to inadequate dietary [...] on file Legal Sex Female 8:30 AM LAND SURVEYING SURVEY WORKER Gender Identity Female 10/06/2021 4:28 PM LAND SURVEYING SURVEY WORKER Sexual Orientation Choose not to disclose 2020 4:28 PM LAND SURVEYING SURVEY WORKER documented as of this encounter Last Filed [...] 12/28/2023 documented in this encounter Care Teams Kineseologist Relationship Specialty Start Date End Date Gideon Campbell MD [address] [place] [address] [address] [place] [address] PCP - General Family Medicine 07/19/23 documented as of this encounter
--- OUTSIDE RECORDS SUMMARY | 2024-10-22 00:52 | XMS_ITS | Encounter Summary ---
Author Organization [facility] Address [address] [place] [address] Phone Care Team Providers Care Permanent Waver Name Role Phone Gideon Campbell MD Primary Care Provider Reason for Visit * Reason Comments Follow-up FCI use (curre nt) of anticoagulant * Diagnostic Lab (Routine) - Canceled Specialty Diagnoses / Procedures Referred By Contac t Referred To Contact Lab Diagnoses 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, unspecified iron 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 type PAD (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) ([facility]) Procedures ESR - Miscellaneous Test ESR - Miscellaneous Test Luis F Lofton MD [address] [place] [address] [place] [address] Phone: tel: fax: Referral ID Status Reason Start Date Expiration Date V isits Requested Visits Authorized [id number] Canceled 10/28/2023 11/26/2024 1 1 Encounter Details Date Type Department Care Team (Late st Contact Info) Description 12/13/2023 10:15 AM ADVANCED MANUFACTURING CONSULTANT Office Visit [facility] Oncology [address] [place] [address] [place] [phone] Luis F Lofton MD [address] [place] [address] [place], [place] [id number] 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, unspecified iron 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 type; [facility]CI (current) use of anticoagulants; PAD (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) ([facility]) Social History Tobacco Use Types Packs/Day Years [...] on file Legal Sex Female 8:30 AM ADVANCED MANUFACTURING CONSULTANT Gender Identity Female 10/06/2021 4:28 PM ADVANCED MANUFACTURING CONSULTANT Sexual Orientation Choose not to disclose 2020 4:28 PM ADVANCED MANUFACTURING CONSULTANT documented as of this encounter Last Filed Vital Signs Vital Sign Reading Time Taken Comments Blood Pressure 144/76 12/13/2023 10:47 AM ADVANCED MANUFACTURING CONSULTANT Pulse 77 12/13/2023 10:47 AM ADVANCED MANUFACTURING CONSULTANT Temperature 36.3 ??C (97.3 ??F) 12/13/2023 10:[address] Respiratory Rate 20 12/13/2023 10:47 AM ADVANCED MANUFACTURING CONSULTANT Oxygen Saturation 99% 12/13/2023 10:47 AM ADVANCED MANUFACTURING CONSULTANT Inhaled Oxygen Concentration - - Weight 54.4 kg (120 lb) 12/13/2023 10:47 AM ADVANCED MANUFACTURING CONSULTANT Height 161.3 cm (5' 3.5 ) 12/13/2023 10:47 AM CS T Body Mass Index 20.92 12/13/2023 10:47 AM ADVANCED MANUFACTURING CONSULTANT documented in this encounter Ordered Prescriptions Prescription Sig Dispense Quantity Refills Last Filled Start Date End Date ferrous sulfate 325 mg (65 mg of elemental iron) tabletIndications: Iron Deficiency Anemia Take 1 tablet (65 mg of elemental iron total) by mouth daily with breakfast 90 tablet 2 12/13/2023 documented in this encounter Progress Notes * Mia Barger, RETAIL POS SPECIALIST - 12/13/2023 10:15 AM CST Images from [...] Recent labs, radiology and pathology reviewed in [facility] ASSESSMENT: CARLOS likely from GI with [...] physician. PENELOPE Arriaga Nurse Practitioner Medical Oncology [facility] NCED MANUFACTURING CONSULTANT documented in this encounter Miscellaneous Notes * [...] - 9.9 K/cumm Comment:Testing performed by : [facility] [address], Medical Office [facility] [address], [place] [address] Hgb 7.5(L) 11.9 - 15.5 g/dL [facility] ([place]) Comment:Testing performed by : [facility] [address], Medical Office [facility] [address], [place] [address] Hct 26.2(L) 35.6 - 45.5 % [facility] ([place]) Comment:Testing performed by : [facility] [address], Medical Office [facility] [address], [place] [address] Plt 468(H) 150 - 400 K/cumm [facility] ([place]) Comment:Testing performed by : [facility] [address], Medical Office [facility] [address], [place] [address] MPV 8.7(L) 9.1 - 12.3 fL [facility] ([place]) Comment:Testing performed by : [facility] [address], Medical Office [facility] [address], [place] [address] RBC 3.64(L) 3.90 - 5.20 M/cumm [facility] ([place]) Comment:Testing performed by : [facility] [address], Medical Office [facility] [address], [place] [address] MCV 72.0(L) 81.3 - 96.4 fL [facility] ([place]) Comment:Testing performed by : [facility] [address], Medical Office [facility] [address], [place] [address] MCH 20.6(L) 27.1 - 33.3 pg [facility] ([place]) Comment:Testing performed by : [facility] [address], Medical Office [address], [place] [address] MCHC 28.6(L) 32.3 - 35.7 g/dL [facility] ([place]) Comment:Testing performed by : [facility] [address], Medical Office [facility] [address], [place] [address] RDW CV 21.4(H) 11.1 - 14.9 % [facility] ([place]) Comment:Testing performed by : [facility] [address], Medical Office [facility] [address], [place] [address] RDW SD 56.4(H) 35.7 - 48.1 fL [facility] ([place]) Comment:Testing performed by : [facility] [address], Medical Office [facility] [address], [place] [address] NRBC abs Not Measured 0.00 - 0.01 K/cumm [facility] ([place]) Comment:Testing performed by : [facility] [address], Medical Office [facility] [address], [place] [address] Blood 01/31/2024 9:20 AM CDT 01/31/2024 9:41 AM CDT us Mia Barger RETAIL POS SPECIALIST LAB BLOOD ORDERABLES Final Result [facility] ([place]) 1 [facility] [place] [address] * (ABNORMAL) Protime-INR (12/13/2023 11:30 AM ADVANCED MANUFACTURING CONSULTANT) PT 14.2(H) 10.3 - 13.7 sec [facility] ([place]) Comment:Testing performed by : [facility], [place], [address] INR 1.25(H) 0.90 - 1.20 [facility] ([place]) Comment: Interpretive data Oral anticoagulant therapeutic ranges: Venous thromboembolism prophylaxis or treatment: 2.0-3.0 CARDIOLOGY Standard range: 2.0-3.0 High-intensity range: 2.5-3.5 Refer to indication-specific guidelines for appropriate target ranges for prosthetic heart valve replacement. Current interpretive data was last revised on 2019. Testing performed by: [facility], [place], [address] Blood 12/13/2023 11:3 0 AM ADVANCED MANUFACTURING CONSULTANT 12/13/2023 12:04 PM ADVANCED MANUFACTURING CONSULTANT us Mia Barger RETAIL POS SPECIALIST LAB BLOOD ORDERABLES Final Result [facility] ([place]) [address] [place] [address] Department [place] [address] documented in this encounter Visit Diagnoses Diagnosis 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, unspecified iron 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 type meterman (current) use of anticoagulants Long-term (current) use of anticoagulants PAD (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) (HCC) Unspecified peripheral vascular disease documented in this encounter Orders Appointment Requests Count Last Ordered Date Fi rst Ordered Date ONCBCN CLINIC APPOINTMENT REQUEST 2 024 ONCBCN LAB APPOINTMENT 1 12/13/2023 documented in this encounter Care Teams Permanent Waver Relationship Specialty Start Date End Date Gideon Campbell MD 2 [facility] [address] [place] [address] PCP - General Family Medicine 07/19/23 documented as of this encounter
--- OUTSIDE RECORDS SUMMARY | 2024-10-22 00:52 | XMS_ITS | Encounter Summary ---
Author Organization [facility] Address [address] [place] [address] Phone Care Team Providers Care Hospital Fellow Name Role Phone Gideon Campbell MD Primary Care Provider [phone] Encounter Details Date Type Department Care Team (Late st Contact Info) Description 10/28/2023 Orders Only [facility] Oncology [address] [place] [phone] Carmela Puri RN 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, [...] on file Legal Sex Female 8:30 AM AWNING MAKER AND INSTALLER Gender Identity Female 10/06/2021 4:28 PM AWNING MAKER AND INSTALLER Sexual Orientation Choose not to disclose 2020 4:28 PM AWNING MAKER AND INSTALLER documented as of this encounter Miscellaneous Notes * Addendum Note - Deborah Armstrong CLT - 10/28/2023 4:36 PM CSTAddended by: DEBORAH ARMSTRONG on: 12/13/2023 10:12 AM Modules accepted: Orders NG MAKER AND INSTALLER * Addendum Note - Sarita Parnell CLT - 10/28/2023 4:36 PM CSTAddended by: SARITA PARNELL on: 12/13/2023 11:37 AM Modules accepted: Orders NG MAKER AND INSTALLER documented in this encounter Plan of Treatment Not on file documented as of this encounter Results * (ABNORMAL) CBC with auto differential (12/13/2023 10:15 AM AWNING MAKER AND INSTALLER) WBC 6.2 3.8 - 9.9 K/cumm [facility] ([place]) Comment:Testing performed by : [facility] [address], Medical Office [facility] [address], [place] [address] Hgb 7.5(L) 11.9 - 15.5 g/dL [facility] ([place]) Comment:Testing performed by : [facility] [address], Medical Office [facility] [address], [place] [address] Hct 26.7(L) 35.6 - 45.5 % [facility] ([place]) Comment:Testing performed by : [facility] [address], Medical Office [facility] [address], [place] [address] Plt 559(H) 150 - 400 K/cumm [facility] ([place]) Comment:Testing performed by : [facility] [address], Medical Office [facility] [address], [place] [address] MPV 8.1(L) 9.1 - 12.3 fL [facility] ([place]) Comment:Testing performed by : [facility] [address], Medical Office [facility] B [facility], [place] [address] RBC 3.98 3.90 - 5.20 M/cumm [facility] ([place]) Comment:Testing performed by : [facility] [address], Medical Office [facility] B [facility] [address], [place] [address] MCV 67.1(L) 81.3 - 96.4 fL [facility] ([place]) Comment:Testing performed by : [facility] [address], Medical Office [facility] [address] [facility] [address], [place] [address] MCH 18.8(L) 27.1 - 33.3 pg [facility] ([place]) Comment:Testing performed by : [facility] [address], Medical Office [facility] B [facility] [address], [place] [address] MCHC 28.1(L) 32.3 - 35.7 g/dL [facility] ([place]) Comment:Testing performed by : [facility] [address], Medical Office [facility] B [facility] [address], [place] [address] RDW CV 19.2(H) 11.1 - 14.9 % [facility] ([place]) Comment:Testing performed by : [facility] [address], Medical Office [facility] B [facility] [address], [place] [address] RDW SD 47.1 35.7 - 48.1 fL [facility] ([place]) Comment:Testing performed by : [facility] [address], Medical Office [facility] [address], [place] [address] NRBC abs Not Measured 0.00 - 0.01 K/cumm [facility] ([place]) Comment:Testing performed by : [facility] [address], Medical Office [facility] B [facility], [place] [address] Blood 12/13/2023 10:1 5 AM AWNING MAKER AND INSTALLER 12/13/2023 10:20 AM AWNING MAKER AND INSTALLER us Luis F Lofton MD LAB BLOOD ORDERABLES Final Re sult [facility] ([place]) 1 [facility] Department [place] [address] * (ABNORMAL) Iron profile w/ IBC (12/13/2023 10:15 AM AWNING MAKER AND INSTALLER) Iron 14(L) 35 - 145 mcg/dL [facility] ([place]) Comment:Testing performed by : [facility], [facility], [place], [address] TIBC 172(L) 250 - 400 mcg/dL [facility] ([place]) Comment:Testing performed by : [facility], [facility], [place], [address] Transferrin saturation 8(L) 20 - 50 % [facility] ([place]) Comment:Testing performed by : [facility], [place], [address] Blood 12/13/2023 10:1 5 AM AWNING MAKER AND INSTALLER 12/13/2023 10:32 AM AWNING MAKER AND INSTALLER Luis F Lofton MD LAB BLOOD ORDERABLES Final Re sult [facility] ([place]) [address] [place] [address] Department [place] [address] * (ABNORMAL) Ferritin (12/13/2023 10:15 AM AWNING MAKER AND INSTALLER) Ferritin 216(H) 15 - 150 ng/mL [facility] ([place]) Comment:Testing performed by : [facility], [place], [address] Blood 12/13/2023 10:1 5 AM AWNING MAKER AND INSTALLER 12/13/2023 10:32 AM AWNING MAKER AND INSTALLER Luis F Lofton MD LAB BLOOD ORDERABLES Final Re sult [facility] ([place]) [address] [place] [address] Department [place] [address] * (ABNORMAL) Reticulocyte Count (12/13/2023 10:15 AM AWNING MAKER AND INSTALLER) Retics, absolute 0.038 0.020 - 0.087 M/cumm [facility] ([place]) Comment:Testing performed by : [facility], [facility], [place], [address] Retics 1.0 0.4 - 2.9 % [facility] ([place]) Comment:Testing performed by : [facility], [facility], [place], [address] Reticulocyte Hgb 17.7(L) 30.5 - 38.0 pg [facility] ([place]) Comment:Testing performed by : [facility], [facility], [place], [address] Blood 12/13/2023 10:1 5 AM AWNING MAKER AND INSTALLER 12/13/2023 10:32 AM AWNING MAKER AND INSTALLER us Luis F Lofton MD LAB BLOOD ORDERABLES Final Re sult [facility] ([place]) 1 [facility] Department [place] [address] documented in this encounter Visit Diagnoses Diagnosis 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, unspecified iron 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 type- Primary PAD (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) (HCC) Unspecified peripheral vascular disease documented in this encounter Orders Appointment Requests Count Last Ordered Date Fi rst Ordered Date ONCBCN LAB APPOINTMENT 1 12/13/2023 documented in this encounter Care Teams Hospital Fellow Relationship Specialty Start Date End Date Gideon Campbell MD [address] [facility] [address] [place] [address] PCP - General Family Medicine 07/19/23 documented as of this encounter
--- OUTSIDE RECORDS SUMMARY | 2024-10-22 00:52 | XMS_ITS | Encounter Summary ---
Author Organization [facility] Address [address] [place] [address] Phone Care Team Providers Care Administration Specialist Name Role Phone Gideon Campbell MD Primary Care Provider [phone] Encounter Details Date Type Department Care Team (Late st Contact Info) Description 10/28/2023 Orders Only [facility] Oncology [address] [place] [address] Medical [facility] [address] [address] Luis F Lofton MD [address] [place] [address] Social History Tobacco Use Types Packs/Day Years [...] on file Legal Sex Female 8:30 AM UNDERCOLLAR MAKER Gender Identity Female 10/06/2021 4:28 PM UNDERCOLLAR MAKER Sexual Orientation Choose not to disclose 2020 4:28 PM UNDERCOLLAR MAKER documented as of this encounter Plan of Treatment Not on file documented as of this encounter Visit Diagnoses Not on filedocumented in this encounter Care Teams Administration Specialist Relationship Specialty Start Date End Date Gideon Campbell MD 2 [facility] [address] [address] PCP - General Family Medicine 07/19/23 documented as of this encounter
--- OUTSIDE RECORDS SUMMARY | 2024-10-22 00:52 | XMS_ITS | Referral Summary ---
Author Organization [facility] Address [address] [place] [address] Care Team Providers Care Lead Quality Technician Name Role Phone Gideon Campbell MD Primary Care Provider [phone] Allergies No known active allergies Medications ascorbic [...] 06/15/2023 Assessment & Plan (10/18/2023 2:47 PM ARMATURE WINDER REPAIR HELPER): Worsening sx at this time Weight loss 01/27/2023 Assessment & Plan (10/18/2023 2:38 PM ARMATURE WINDER REPAIR HELPER): Wt Readings from Last 3 Encounters: 10/18/23 [...] is recommended that he remain anticoagulated for thromboprophylaxis.[id number]. Left carotid bruit 10/13/2017 Ventricular ectopy 05/17/2017 [...] 04/07/2017 Assessment & Plan (10/18/2023 2:39 PM ARMATURE WINDER REPAIR HELPER): BP Readings from Last 3 Encounters: 10/18/23 [...] EKG. Assessment & Plan (08/19/2017 10:05 AM ARMATURE WINDER REPAIR HELPER): Post repeat ablation of her highly symptomatic [...] an office visit and 12 lead EKG. [facility] 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 0 03/29/2017 [...] bleeding Assessment & Plan (08/19/2017 10:05 AM ARMATURE WINDER REPAIR HELPER): She remains anticoagulated on Coumadin. She has a [id number]-[id number] score of 4, therefore it is recommended that she remain anticoagulated for thromboprophylaxis. Assessment & Plan (05/17/2017 2:10 PM CDT): She remains anticoagulated with Coumadin.She has a CNR1HQ0-[id number] score of 4(annualized stroke risk of 4%), [...] on file Legal Sex Female 8:30 AM ARMATURE WINDER REPAIR HELPER Gender Identity Female 10/06/2021 4:28 PM ARMATURE WINDER REPAIR HELPER Sexual Orientation Choose not to disclose 2020 4:28 PM ARMATURE WINDER REPAIR HELPER Last Filed Vital Signs Vital Sign Reading [...] Body Mass Index 21.52 12/13/2023 10:47 AM ARMATURE WINDER REPAIR HELPER Plan of Treatment Not on file Insurance MEDICARE [facility] MEDICARE [facility] Address: [address] [address] [place] [address] MEDICARE [employer] Care Teams Lead Quality Technician Relationship Specialty Start Date End Date Gideon Campbell MD [address] [facility] [address] [place] [address] PCP - General Family Medicine 07/19/23
--- OUTSIDE RECORDS SUMMARY | 2024-10-22 00:52 | XMS_ITS | Encounter Summary ---
Author Organization [facility] Address [address] [place] [address] Phone Care Team Providers Care Branch Customer Service Representative Name Role Phone Gideon Campbell MD Primary Care Provider [phone] Reason for Visit * Reason Comments Follow-up Anemia Encounter Details Date Type Department Care Team (Late st Contact Info) Description 01/31/2024 9:45 AM CDT Office Visit [facility] Oncology [address] [place] [address] Medical [facility] Delio Erickson [address] [place] [address] Luis F Lofton MD [address] [place] [address] [place] [address] 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, unspecified iron 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 [...] on file Legal Sex Female 8:30 AM STUDENT OUTREACH COORDINATOR Gender Identity Female 10/06/2021 4:28 PM STUDENT OUTREACH COORDINATOR Sexual Orientation Choose not to disclose 2020 4:28 PM STUDENT OUTREACH COORDINATOR documented as of this encounter Last [...] Body Mass Index 21.52 12/13/2023 10:47 AM STUDENT OUTREACH COORDINATOR documented in this encounter Progress Notes * [...] at this time Luis F Lofton MD Branch Service Specialist Internal Medicine-Medical Oncology [facility] in [place] - Physicians in [address]; [address] [address] Office: (after hours this rolls over to [facility] Oncologist on-call) Executive Office Manager completed using M*Modal fluency direct speaking software, therefore, datawarehouse developer variances may occur. documented in this encounter [...] 01/31/2024 documented in this encounter Care Teams Branch Customer Service Representative Relationship Specialty Start Date End Date Gideon Campbell MD [address] [facility] [address] [place] [address] PCP - General Family Medicine 07/19/23 documented as of this encounter
--- OUTSIDE RECORDS SUMMARY | 2024-10-22 00:52 | XMS_ITS | Encounter Summary ---
Author Organization [facility] Address [address] [place] [address] Phone Care Team Providers Care Municipal Court Magistrate Name Role Phone Gideon Campbell MD Primary Care Provider [phone] Encounter Details Date Type Department Care Team (Late st Contact Info) Description 12/23/2023 Orders Only [facility] Oncology [address] [place] [phone] Karen Giles RN 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, [...] file Legal Sex Female 8:30 AM FOOD QUALITY TESTER Gender Identity Female 10/06/2021 4:28 PM FOOD QUALITY TESTER Sexual Orientation Choose not to disclose 2020 4:28 PM FOOD QUALITY TESTER documented as of this encounter Plan of Treatment Not on file documented as of this encounter Visit Diagnoses Diagnosis 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, unspecified iron 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 type- Primary documented in this encounter Orders Appointment Requests Count Last Ordered Date Fi rst Ordered Date ONCBCN INFUSION APPT REQUEST 3 01/11/2024 12/28/2023 documented in this encounter Care Teams Municipal Court Magistrate Relationship Specialty Start Date End Date Gideon Campbell MD [address] [facility] [address] [place] [address] PCP - General Family Medicine 07/19/23 documented as of this encounter
--- OUTSIDE RECORDS SUMMARY | 2024-10-22 00:52 | XMS_ITS | Encounter Summary ---
Author Organization [facility] Address [address] [place] [address] Phone Care Team Providers Care Last Dipper Name Role Phone Gideon Campbell MD Primary Care Provider [phone] Encounter Details Date Type Department Care Team (Late st Contact Info) Description 10/25/2023 Telephone [facility] Oncology [address] [place] [phone] Deborah Armstrong, JACOB Social History Tobacco [...] on file Legal Sex Female 8:30 AM MAINFRAME SYSTEMS ADMINISTRATOR Gender Identity Female 10/06/2021 4:28 PM MAINFRAME SYSTEMS ADMINISTRATOR Sexual Orientation Choose not to disclose 2020 4:28 PM MAINFRAME SYSTEMS ADMINISTRATOR documented as of this encounter Miscellaneous Notes * Telephone Encounter - Deborah Armstrong CLT - 10/25/2023 1:08 PM MAINFRAME SYSTEMS ADMINISTRATOR Patient's daughter Nel Sheikh called regarding lab results. Nel's number is [phone]. Carmela will return her call. FRAME SYSTEMS ADMINISTRATOR documented in this encounter Plan of Treatment Not on file documented as of this encounter Visit Diagnoses Not on filedocumented in this encounter Care Teams Last Dipper Relationship Specialty Start Date End Date Gideon Campbell MD [address] [facility] [address] [place] [id number] PCP - General Family Medicine 07/19/23 documented as of this encounter
--- OUTSIDE RECORDS SUMMARY | 2024-10-22 00:52 | XMS_ITS | Encounter Summary ---
Author Organization [facility] Address [address] [place] [address] Phone Care Team Providers Care Lead Pony Rider Name Role Phone Gideon Campbell MD Primary Care Provider [phone] Encounter Details Date Type Department Care Team (Late st Contact Info) Description 10/28/2023 Telephone [facility] Oncology [address] [place] [phone] Yamileth Santiago, JACOB Social History Tobacco [...] file Legal Sex Female 8:30 AM NETWORK LIAISON Gender Identity Female 10/06/2021 4:28 PM NETWORK LIAISON Sexual Orientation Choose not to disclose 2020 4:28 PM NETWORK LIAISON documented as of this encounter Miscellaneous Notes * Telephone Encounter - Carmela Puri RN - 10/29/2023 8:12 AM NETWORK LIAISON Patient's daughter was called and reviewed lab test results with her. Patient to start on Slow Fe otc tablets 1 daily and FU labs and DV in 6 weeks./res ORK LIAISON documented in this encounter Plan of Treatment Not on file documented as of this encounter Visit Diagnoses Not on filedocumented in this encounter Care Teams Lead Pony Rider Relationship Specialty Start Date End Date Gideon Campbell MD [address] [facility] [address] [place] [address] PCP - General Family Medicine 07/19/23 documented as of this encounter
--- OUTSIDE RECORDS SUMMARY | 2024-10-22 00:52 | XMS_ITS | Encounter Summary ---
Author Organization [facility] Address [address] [place] [address] Phone Care Team Providers Care Assistant Manager Airside Operations Name Role Phone Gideon Campbell MD Primary Care Provider Encounter Details Date Type Department Care Team (Late st Contact Info) Description 02/22/2024 Telephone [facility] Oncology [address] [place] [phone] Yamileth Santiago, JACOB Social History Tobacco [...] on file Legal Sex Female 8:30 AM THEATER PROJECTIONIST Gender Identity Female 10/06/2021 4:28 PM THEATER PROJECTIONIST Sexual Orientation Choose not to disclose 2020 4:28 PM THEATER PROJECTIONIST documented as of this encounter Miscellaneous Notes * Telephone Encounter - Yamileth Santiago CLT - 02/22/2024 1:44 PM CDT PATIENT CALLED IN TO CANCEL APPT., DOES NOT WANT TO RESCHEDULE AT THIS TIME documented in this encounter Plan of Treatment Not on file documented as of this encounter Visit Diagnoses Not on filedocumented in this encounter Care Teams Assistant Manager Airside Operations Relationship Specialty Start Date End Date Gideon Campbell MD 2 [facility] [address] [place] [address] PCP - General Family Medicine 07/19/23 documented as of this encounter
--- OUTSIDE RECORDS SUMMARY | 2024-10-22 00:52 | XMS_ITS | Encounter Summary ---
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 current use [...] on file Legal Sex Female 8:30 AM FELT PAD CUTTER Gender Identity Female 10/06/2021 4:28 PM FELT PAD CUTTER Sexual Orientation Choose not to disclose 2020 4:28 PM FELT PAD CUTTER documented as of this encounter Plan of Treatment Not on file documented as of this encounter Visit Diagnoses Diagnosis Atrial fibrillation (CMS/HCC) [I48.91]- Primary Atrial fibrillation senior care 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 documented in this encounter Care Teams Poultry Pinner Relationship Specialty Start Date End Date Gideon Campbell MD 2 [facility] [place] [id number] PCP - General Family Medicine 07/19/23 documented as of this encounter
--- OUTSIDE RECORDS SUMMARY | 2024-10-22 00:53 | XMS_ITS | Encounter Summary ---
Author Organization [facility] Address [address] [facility] [address] [place] [address] Care Team Providers Care Auto Brake Mechanic Name Role Phone Denis Platt MD Primary Care Provide r Encounter Details Date Type Department Care Team (Late st Contact Info) Description 04/22/2023 Documentation [facility] Orthopedics and Sports Medicine [address] [facility] [address] [place] [phone] Amie Lion MA Social History Tobacco Use Types Packs/Day Years Used Date Smoking Tobacco: Former Cigarettes Q uit: 09/28/1978 Smokeless Tobacco: Never Alcohol Use Standard Drinks/Week Comments Yes 0 (1 standard drink = 0.6 oz pur e alcohol) Comments Unknown Sex and Gender Information Value Date Recorded Sex Assigned at Not on file Legal Sex Female 8:30 AM OUTSIDE DEALER SALES REPRESENTATIVE Gender Identity Female 10/06/2021 4:28 PM OUTSIDE DEALER SALES REPRESENTATIVE Sexual Orientation Choose not to disclose 2020 4:28 PM OUTSIDE DEALER SALES REPRESENTATIVE documented as of this encounter Progress Notes [...] on filedocumented in this encounter Care Teams Auto Brake Mechanic Relationship Specialty Start Date End Date Denis Platt MD [address] [place] [address] PCP - General Family Medicine 01/14/22 07/18/23 documented as of this encounter
--- OUTSIDE RECORDS SUMMARY | 2024-10-22 00:53 | XMS_ITS | Encounter Summary ---
Author Organization [facility] Healthcare Address [address] [place] [address] Care Team Providers Care Drafting Detailer Name Role Phone Gideon Campbell MD Primary Care Provider [phone] Reason for Visit * Reason Comments Leg Pain Hip Pain Follow-up Pt is trying to get back on surgery list. Dr. Lofton found something in her lab that needs discussed. Leg Swelling Pt R leg and knee is swollen Encounter Details Date Type Department Care Team (Late st Contact Info) Description 10/18/2023 2:30 PM SURGICAL CONSULTANT Office Visit [facility] Primary Care at [address] [phone] Gideon Campbell MD [address] [place] [address] Weight loss (Primary Dx); Essential hypertension; [...] file Legal Sex Female 8:30 AM SURGICAL CONSULTANT Gender Identity Female 10/06/2021 4:28 PM SURGICAL CONSULTANT Sexual Orientation Choose not to disclose 2020 4:28 PM SURGICAL CONSULTANT documented as of this encounter Last Filed Vital Signs Vital Sign Reading Time Taken Comments Blood Pressure 160/78 10/18/2023 2:18 PM SURGICAL CONSULTANT Pulse 63 10/18/2023 2:18 PM SURGICAL CONSULTANT Temperature - - Respiratory Rate 16 10/18/2023 2:18 PM SURGICAL CONSULTANT Oxygen Saturation 99% 10/18/2023 2:18 PM SURGICAL CONSULTANT Inhaled Oxygen Concentration - - Weight 59.1 kg (130 lb 4.8 oz) 10/18/2023 2:18 P M SURGICAL CONSULTANT Height 161.3 cm (5' 3.5 ) 10/18/2023 2:18 PM SURGICAL CONSULTANT Body Mass Index 22.72 10/18/2023 2:18 PM SURGICAL CONSULTANT documented in this encounter Ordered Prescriptions [...] for 12 hours. No follow-ups on file. ICAL CONSULTANT documented in this encounter Miscellaneous Notes * Assessment & Plan Note - Gideon Campbell MD - 10/18/2023 2:47 PM CSTAssociated Problem(s): Primary osteoarthritis of right hip Worsening sx at this time ICAL CONSULTANT * Assessment & Plan Note - Gideon [...] 06/16/2023 Significantly elevated Likely 2/2 to pain ICAL CONSULTANT * Assessment & Plan Note - Gideon Campbell MD - 10/18/2023 2:38 PM CSTAssociated Problem(s): Weight loss Wt Readings from Last 3 Encounters: 10/18/23 59.1 kg (130 lb 4.8 oz) 10/18/23 57 kg (125 lb 9.6 oz) 07/29/23 56.9 kg (125 lb 6.4 oz) ICAL CONSULTANT documented in this encounter Plan of Treatment Not on file documented as of this encounter Visit Diagnoses Diagnosis Weight loss- Primary Loss of weight Essential hypertension Unspecified essential hypertension Primary osteoarthritis of right hip Microcytic anemia Unspecified iron 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 documented in this encounter Care Teams Drafting Detailer Relationship Specialty Start Date End Date Gideon Campbell MD 2 [facility] [address] [address] PCP - General Family Medicine 07/19/23 documented as of this encounter
--- OUTSIDE RECORDS SUMMARY | 2024-10-22 00:53 | XMS_ITS | Encounter Summary ---
Author Organization [facility] Healthcare Address [address] [place] [address] Care Team Providers Care Kitchenhand Name Role Phone Gideon Campbell MD Primary Care Provider [phone] Encounter Details Date Type Department Care Team ([facility] st Contact Info) Description 07/29/2023 Telephone [facility] Medical [facility] Primary Care at [address] [place] [address] Gideon Campbell MD [address] [place] [address] [address] [place] [address] Social History Tobacco Use Types [...] file Legal Sex Female 8:30 AM NURSE RECEPTIONIST Gender Identity Female 10/06/2021 4:28 PM NURSE RECEPTIONIST Sexual Orientation Choose not to disclose 2020 4:28 PM NURSE RECEPTIONIST documented as of this encounter Miscellaneous Notes [...] on filedocumented in this encounter Care Teams Kitchenhand Relationship Specialty Start Date End Date Gideon Campbell MD 2 [facility] [address] [address] PCP - General Family Medicine 07/19/23 documented as of this encounter
--- OUTSIDE RECORDS SUMMARY | 2024-10-22 00:53 | XMS_ITS | Encounter Summary ---
Author Organization [facility] Healthcare Address [address] [place] [address] Care Team Providers Care Automotive Worker Name Role Phone Gideon Campbell MD Primary Care Provider [phone] Reason for Visit * Reason Comments Anemia Follow-up Pt states she is hav ing a lot of pain in her joints. B shoulders and knees hurt. Encounter Details Date Type Department Care Team (Late st Contact Info) Description 07/29/2023 12:30 PM CDT Office Visit [facility] Medical [facility] Primary Care at [address] [place] [phone] Gideon Campbell MD [address] [place] [address] Medicare annual wellness visit, subsequent (Primary [...] on file Legal Sex Female 8:30 AM IRRIGATION INSTALLATION SPECIALIST Gender Identity Female 10/06/2021 4:28 PM IRRIGATION INSTALLATION SPECIALIST Sexual Orientation Choose not to disclose 2020 4:28 PM IRRIGATION INSTALLATION SPECIALIST documented as of this encounter Last [...] Problem List Diagnosis Atrial fibrillation (CMS/HCC) [I48.91] 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 goal <100 PAD (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) ([facility]) Essential hypertension Ventricular ectopy Left carotid bruit [...] (Family Medicine) Primary Pharmacy/DME suppliers: [facility] [place], [place] - [address] [facility] [address] [facility] (MAIL SERVICE) [facility] [place] [place] - [address] [facility] [address] [facility] [address] Medicare Health Risk Assessment Basic Information In general, would you say your health is: Excellent Do you have an advance directive, such as a living will or durable power of divorce attorney?: (!) No Would you like information regarding Advanced Directive (Living Will) and/or Durable Power of Potter Or Ceramic Artist?: No Do you have to strain or [...] patientor family, or review of medical records. [facility] Mental Status Mini-Cog Test: The Mini-Cog Repeat [...] weight documented in this encounter Care Teams Automotive Worker Relationship Specialty Start Date End Date Gideon Campbell MD 2 [facility] [address] [address] PCP - General Family Medicine 07/19/23 documented as of this encounter
--- OUTSIDE RECORDS SUMMARY | 2024-10-22 00:53 | XMS_ITS | Encounter Summary ---
Author Organization [facility] Healthcare Address [address] [place] [address] Care Team Providers Care Finance Effectiveness Manager Name Role Phone Denis Platt MD Primary Care Provide r Encounter Details Date Type Department Care Team (Late st Contact Info) Description 07/08/2023 1:25 PM CDT Lab [address] [address] Microcytic anemia; 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 goal <100 Social [...] on file Legal Sex Female 8:30 AM ELECTRICIAN MANAGER Gender Identity Female 10/06/2021 4:28 PM ELECTRICIAN MANAGER Sexual Orientation Choose not to disclose 2020 4:28 PM ELECTRICIAN MANAGER documented as of this encounter Plan [...] Final Resul t [facility] ([place]) [facility] Department [place] [address] * Lipid panel (07/08/2023 1:30 PM CDT) Cholesterol 143 30 - 199 mg/dL [facility] ([place]) Comment: Interpretive Data Ages < or [...] Final Resul t [facility] ([place]) 1 [facility] Department of Laboratories [place], [place] [id number] * (ABNORMAL) Iron profile w/ IBC (07/08/2023 1:30 PM CDT) Iron 11(L) 35 - 145 mcg/dL [facility] ([place]) TIBC 161(L) 250 - 400 mcg/dL [facility] ([place]) Transferrin saturation 7(L) 20 - 50 % [facility] ([place]) Blood 07/08/2023 1:30 PM CDT 07/08/2023 2:09 PM CDT us Gideon Campbell MD LAB BLOOD ORDERABLES Final Resul t Performing Organization Address City/[facility]/ZIP Co de Phone Number [facility] ([place]) 1 [facility] [email or web address] [address] * (ABNORMAL) CBC with auto differential (07/08/2023 [...] Final Resul t [facility] ([place]) 1 [facility] Department [place] [address] documented in this encounter Visit Diagnoses Diagnosis Microcytic anemia Unspecified iron 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 goal <100 Other and unspecified hyperlipidemia documented in this encounter Care Teams Finance Effectiveness Manager Relationship Specialty Start Date End Date Denis Platt MD [address] [place] [address] PCP - General Family Medicine 01/14/22 07/18/23 documented as of this encounter
--- OUTSIDE RECORDS SUMMARY | 2024-10-22 00:53 | XMS_ITS | Encounter Summary ---
Author Organization [facility] Healthcare Address [address] [place] [address] Care Team Providers Care County Nurse Name Role Phone Gideon Campbell MD Primary Care Provider Encounter Details Date Type Department Care Team (Late st Contact Info) Description 07/19/[address] [facility] Medical [facility] Primary Care at [address] [place] [address] Gideon Campbell MD [address] [place] [address] [address] [place] [address] Social History Tobacco Use Types [...] on file Legal Sex Female 8:30 AM COMMUNICATIONS PROJECT MANAGER Gender Identity Female 10/06/2021 4:28 PM COMMUNICATIONS PROJECT MANAGER Sexual Orientation Choose not to disclose 2020 4:28 PM COMMUNICATIONS PROJECT MANAGER documented as of this encounter Miscellaneous Notes * Telephone Encounter - Diandra Christopher LPN - 07/19/2023 3:18 PM CDT Patient made aware of lab results. Patient declines being referred to client service manager at this time andwants to discuss [...] on filedocumented in this encounter Care Teams County Nurse Relationship Specialty Start Date End Date Gideon Campbell MD 2 [facility] [address] [place] [address] PCP - General Family Medicine 07/19/23 documented as of this encounter
--- OUTSIDE RECORDS SUMMARY | 2024-10-22 00:53 | XMS_ITS | Encounter Summary ---
Author Organization [facility] Healthcare Address [address] [place] [address] Care Team Providers Care Commercial Lawn Specialist Name Role Phone Denis Platt MD Primary Care Provide r Encounter Details Date Type Department Care Team (Late st Contact Info) Description 06/16/2023 Orders Only [facility] Cardiology [address] [place] [address] Stormy Bell Social History Tobacco Use Types Packs/Day Years Used Date Smoking Tobacco: Former Cigarettes Q uit: 09/28/1978 Smokeless Tobacco: Never Alcohol Use Standard Drinks/Week Comments Yes 0 (1 standard drink = 0.6 oz pur e alcohol) Comments Unknown Sex and Gender Information Value Date Recorded Sex Assigned at Not on file Legal Sex Female 8:30 AM PROOFER APPRENTICE Gender Identity Female 10/06/2021 4:28 PM PROOFER APPRENTICE Sexual Orientation Choose not to disclose 2020 4:28 PM PROOFER APPRENTICE documented as of this encounter Plan of Treatment Not on file documented as of this encounter Visit Diagnoses Not on filedocumented in this encounter Care Teams Commercial Lawn Specialist Relationship Specialty Start Date End Date Denis Platt MD [address] [place] [address] PCP - General Family Medicine 01/14/22 07/18/23 documented as of this encounter
--- OUTSIDE RECORDS SUMMARY | 2024-10-22 00:53 | XMS_ITS | Encounter Summary ---
Author Organization [facility] Address [address] [place] [address] Phone Care Team Providers Care National Accounts Sales Name Role Phone Gideon Campbell MD Primary Care Provider [phone] Encounter Details Date Type Department Care Team (Late st Contact Info) Description 08/04/2023 Telephone [facility] Oncology [address] [place] [phone] Yamileth Santiago, JACOB Social History Tobacco [...] on file Legal Sex Female 8:30 AM SOLAR PV INSTALLER Gender Identity Female 10/06/2021 4:28 PM SOLAR PV INSTALLER Sexual Orientation Choose not to disclose 2020 4:28 PM SOLAR PV INSTALLER documented as of this encounter Miscellaneous [...] on filedocumented in this encounter Care Teams National Accounts Sales Relationship Specialty Start Date End Date Gideon Campbell MD [address] [facility] [address] [place] [address] PCP - General Family Medicine 07/19/23 documented as of this encounter
--- OUTSIDE RECORDS SUMMARY | 2024-10-22 00:53 | XMS_ITS | Encounter Summary ---
Author Organization [facility] Address [address] [place] [address] Phone Care Team Providers Care Trackless Trolley Driver Name Role Phone Gideon Campbell MD Primary Care Provider [phone] Reason for Visit * Reason Comments Consult * Consultation (Routine) - Closed Specialty Diagnoses / Procedures Referred By Contac t Referred To Contact Oncology Diagnoses 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, unspecified iron 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 type Gideon Campbell MD [address] [place] [address] Phone: tel: fax: [facility] On[facility] [address] [place] [address] [address] Phone: tel: fax: Referral ID Status Reason Start Date Expiration Date V isits Requested Visits Authorized [id number] Closed Specialty Services Required 09/15/2023 10/10/2024 99 99 Encounter Details Date Type Department Care Team (Late st Contact Info) Description 10/18/2023 11:00 AM UPPER INSPECTOR Office Visit [facility] Oncology [address] [place] [address] B [facility] [address] [place] [address] Luis F Lofton MD [address] [place] [address] [address] [place] [address] snf (current) use of anticoagulants (Primary Dx); Iron [...] on file Legal Sex Female 8:30 AM UPPER INSPECTOR Gender Identity Female 10/06/2021 4:28 PM UPPER INSPECTOR Sexual Orientation Choose not to disclose 2020 4:28 PM UPPER INSPECTOR documented as of this encounter Last Filed Vital Signs Vital Sign Reading Time Taken Comments Blood Pressure 168/68 10/18/2023 11:16 AM UPPER INSPECTOR Pulse 75 10/18/2023 11:16 AM UPPER INSPECTOR Temperature 36.3 ??C (97.3 ??F) 10/18/2023 11:[address] Respiratory Rate 20 10/18/2023 11:16 AM UPPER INSPECTOR Oxygen Saturation 100% 10/18/2023 11:16 AM UPPER INSPECTOR Inhaled Oxygen Concentration - - Weight 57 kg (125 lb 9.6 oz) 10/18/2023 11:16 AM UPPER INSPECTOR Height 161.3 cm (5' 3.5 ) 10/18/2023 11:16 AM CS T Body Mass Index 21.9 10/18/2023 11:16 AM UPPER INSPECTOR documented in this encounter Progress Notes * [...] goal <100 04/07/2017 PAD (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) ([facility]) 04/07/2017 Essential hypertension 04/07/2017 Atrial fibrillation ([facility]) [I48.91] 03/29/2017 snf 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 03/29/2017 Assessment: [...] iron absorbed Luis F Lofton MD 10/18/2023 R INSPECTOR documented in this encounter Plan of Treatment Scheduled Orders Name Type Priority Associated Diagnoses Orde r Schedule CBC with auto differential Lab Routine 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, unspecified iron 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 type snf (current) use of anticoagulants Expected: 10/25/2023, Expires: 10/18/2024 documented as of this encounter Results * (ABNORMAL) Comprehensive metabolic panel (01/31/2024 9:20 AM CDT) Sodium 138 135 - 145 mmol/L Comment:Testing performed by : [place], [address] Potassium, pl 4.1 3.3 - 4.9 mmol/L [facility] ([place]) Comment:Testing performed by : [place], [address] Chloride 101 97 - 110 mmol/L [facility] ([place]) Comment:Testing performed by : [place], [address] CO2 27 22 - 32 mmol/L [facility] ([place]) Comment:Testing performed by : [facility], [place], [address] Anion gap 10 2 - 15 mmol/L [facility] ([place]) Comment:Testing performed by : [facility], [facility], [place], [address] BUN 9 6 - 25 mg/dL [facility]) Comment:Testing performed by : [facility], [place], [address] Creatinine 0.72 0.60 - 1.10 mg/dL [facility] ([place]) Comment:Testing performed by : [facility], [place], [address] Glucose 108 70 - 199 mg/dL [facility] ([place]) Comment: Interpretive Data Fasting glucose >/= 126 [...] was last revised 2022. Testing performed by: [facility], [place], [address] Calcium 8.9 8.5 - 10.3 mg/dL [facility] ([place]) Comment:Testing performed by : [facility], [place], [address] Bilirubin, total 0.4 0.1 - 1.2 mg/dL [facility]) Comment:Testing performed by : [facility], [place], [address] Protein, pl 5.9(L) 6.5 - 8.5 g/dL [facility]) Comment:Testing performed by : [facility], [place], [address] Albumin 2.9(L) 3.5 - 5.0 g/dL [facility] ([place]) Comment:Testing performed by : [place], [address] Alk phos 127 40 - 130 Units/L [facility] ([place]) Comment:Testing performed by : [facility], [facility], [place], [address] ALT 5(L) 7 - 45 Units/L [facility] ([place]) Comment:Testing performed by : [facility], [facility], [place], [address] AST 7(L) 10 - 45 Units/L [facility] ([place]) Comment:Testing performed by : [facility], [facility], [place], [address] Blood 01/31/2024 9:20 AM CDT 01/31/2024 9:38 AM CDT Narrative [facility]) - 01/31/2024 10:05 AM CDT [facility] us Luis F Lofton MD LAB BLOOD ORDERABLES Final Re sult Performing Organization Address City/[facility]/ZIP Co de Phone Number [facility] ([place]) [address] [place] [address] [place] [address] * (ABNORMAL) aPTT (10/18/2023 1:00 PM UPPER INSPECTOR) aPTT 40(H) 28 - 38 sec [facility] ([place]) Comment: Interpretive Data Heparin therapeutic range: 66.0 - 100.0 seconds. Range based on correlation with therapeutic heparin activity range of 0.3 - 0.7 Units/mL. Current interpretive data was last revised on 2023. Testing performed by: [place], [address] Blood 10/18/2023 1:00 PM UPPER INSPECTOR 10/18/2023 2:08 PM UPPER INSPECTOR us Luis F Lofton MD LAB BLOOD ORDERABLES Final Re sult [facility] ([place]) 1 [facility] Department [place] [address] * Protime-INR (10/18/2023 1:00 PM UPPER INSPECTOR) PT 13.7 10.3 - 13.7 sec [facility] ([place]) Comment:Testing performed by : [place], [address] INR 1.20 0.90 - 1.20 [facility] ([place]) Comment: Interpretive data Oral anticoagulant therapeutic ranges: Venous thromboembolism prophylaxis or treatment: 2.0-3.0 CARDIOLOGY Standard range: 2.0-3.0 High-intensity range: 2.5-3.5 Refer to indication-specific guidelines for appropriate target ranges for prosthetic heart valve replacement. Current interpretive data was last revised on 2019. Testing performed by: [place], [address] Blood 10/18/2023 1:00 PM UPPER INSPECTOR 10/18/2023 2:08 PM UPPER INSPECTOR Luis F Lofton MD LAB BLOOD ORDERABLES Final Re sult Performing Organization Address City/[facility]/ZIP Co de Phone Number [facility] ([place]) [address] [place] [address] [place] [address] * (ABNORMAL) Fibrinogen (10/18/2023 1:00 PM UPPER INSPECTOR) Fibrinogen 533(H) 170 - 400 mg/dL [facility] ([place]) Comment:Testing performed by : [facility], [place], [address] Blood 10/18/2023 1:00 PM UPPER INSPECTOR 10/18/2023 2:08 PM UPPER INSPECTOR Luis F Lofton MD LAB BLOOD ORDERABLES Final Re sult [facility] ([place]) 1 [facility] [place] [address] documented in this encounter Visit Diagnoses Diagnosis snf (current) use of anticoagulants- Primary Long-term (current) use of anticoagulants 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, unspecified iron 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 type 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, unspecified iron 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 type snf (current) use of anticoagulants Long-term (current) use [...] 10/18/2023 documented in this encounter Care Teams Trackless Trolley Driver Relationship Specialty Start Date End Date Gideon Campbell MD [address] [place] [address] PCP - General Family Medicine 07/19/23 documented as of this encounter
--- OUTSIDE RECORDS SUMMARY | 2024-10-22 00:53 | XMS_ITS | Encounter Summary ---
Author Organization [facility] Address [address] [place] [address] Care Team Providers Care Seat Scooper Machine Name Role Phone Denis Platt MD Primary Care Provide r Encounter Details Date Type Department Care Team (Late st Contact Info) Description 06/18/2023 Telephone [facility] Orthopedics and Sports Medicine [facility] [address] [place] [address] Herber Knott MD [address] [place] [address] [address] [place] [address] Social History Tobacco Use Types Packs/Day Years Used Date Smoking Tobacco: Former Cigarettes Q uit: 09/28/1978 Smokeless Tobacco: Never Alcohol Use Standard Drinks/Week Comments Yes 0 (1 standard drink = 0.6 oz pur e alcohol) Comments Unknown Sex and Gender Information Value Date Recorded Sex Assigned at Not on file Legal Sex Female 8:30 AM TOMATO PASTE MAKER Gender Identity Female 10/06/2021 4:28 PM TOMATO PASTE MAKER Sexual Orientation Choose not to disclose 2020 4:28 PM TOMATO PASTE MAKER documented as of this encounter Miscellaneous [...] [facility] see if they are acceptingnew patients. [...] care. Pt was instructed about PCPs in [facility]. Pt also informed she could try [facility] or calling her insurance for recommendations. * [...] will be sent. * Telephone Encounter - Lisa Hernandez MA - 06/21/2023 8:52 AM CDT [...] on filedocumented in this encounter Care Teams Seat Scooper Machine Relationship Specialty Start Date End Date Denis Platt MD [address] [place] [address] PCP - General Family Medicine 01/14/22 07/18/23 documented as of this encounter
--- OUTSIDE RECORDS SUMMARY | 2024-10-22 00:53 | XMS_ITS | Encounter Summary ---
Author Organization [facility] Address [address] [place] [address] Phone Care Team Providers Care Reconnaissance Man Name Role Phone Gideon Campbell MD Primary Care Provider [phone] Reason for Referral * Consultation (Routine) - Closed Specialty Diagnoses / Procedures Referred By Contac t Referred To Contact Oncology Diagnoses 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, unspecified iron 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 type Gideon Campbell MD [address] [place] [address] [address] [place] [address] Phone: tel: fax: [facility] [address] [place] [address] [facility] [address] [place] [address] Phone: tel: fax: Referral ID Status Reason Start Date Expiration Date V isits Requested Visits Authorized [id number] Closed Specialty Services Required 09/15/2023 10/10/2024 99 99 Question Answer Please select the performing region: [facility] (All Locations) [[phone]] Please select the performing department: [facility] IM ONC [facility] B134 [[id number]] Is this referral for Breast Health Multi-Disciplinary Clinic? No Does the patient have a diagnosis of a Head and Neck cancer? No # of visits: 1 IPITATOR SUPERVISOR Encounter Details Date Type Department Care Team (Late st Contact Info) Description 09/15/2023 Orders Only [facility] Oncology 4 [facility] Office Bldg Delio Erickson [address] [place] [phone] Yamileth Santiago, CLT 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, unspecified [...] on file Legal Sex Female 8:30 AM PRECIPITATOR SUPERVISOR Gender Identity Female 10/06/2021 4:28 PM PRECIPITATOR SUPERVISOR Sexual Orientation Choose not to disclose 2020 4:28 PM PRECIPITATOR SUPERVISOR documented as of this encounter Plan of Treatment Scheduled Referrals Name Type Priority Associated Diagnoses Orde r Schedule Ambulatory referral to Oncology Outpatient Referral Routine 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, unspecified iron 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 type Expected: 09/29/2023 (Approximate), Expires: 09/15/2024 documented as of this encounter Visit Diagnoses Diagnosis 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, unspecified iron 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 type- Primary documented in this encounter Care Teams Reconnaissance Man Relationship Specialty Start Date End Date Gideon Campbell MD [address] [place] [address] PCP - General Family Medicine 07/19/23 documented as of this encounter
--- OUTSIDE RECORDS SUMMARY | 2024-10-22 00:53 | XMS_ITS | Encounter Summary ---
Author Organization [facility] Address [address] [place] [address] Care Team Providers Care Laborer Steel Handling Name Role Phone Denis Platt MD Primary Care Provide r Reason for Referral * Cardiology (Routine) - Closed Specialty Diagnoses / Procedures Referred By Jayaac t Referred To Contact Diagnoses Pre-operative exam Procedures ECG 12 lead Herber Knott MD [address] [place] [address] [address] [address] Phone: tel: [address] [phone] Referral ID Status Reason Start Date Expiration Date Visits Re quested Visits Authorized [id number] Closed 04/22/2023 06/16/2023 1 1 Reason for Visit * Cardiology (Routine) - Closed Specialty Diagnoses / Procedures Referred By Lyndsey farmer Referred To Contact Diagnoses Pre-operative exam Procedures ECG 12 lead Herber Knott MD [address] [place] [address] [address] [address] Phone: tel: [address] [phone] Referral ID Status Reason Start Date Expiration Date Visits Re quested Visits Authorized [id number] Closed 04/22/2023 06/16/2023 1 1 Encounter Details Date Type Department Care Team (Latest Contact Info) Description 06/16/2023 9:30 AM CDT - 06/16/2023 11:59 PM CDT Hospital Encounter [facility] Cardiology [address] [place] [address] Pre-operative exam Discharge Disposition: Discharge to home [...] on file Legal Sex Female 8:30 AM C ENGINEER Gender Identity Female 10/06/2021 4:28 PM C ENGINEER Sexual Orientation Choose not to disclose 2020 4:28 PM C ENGINEER documented as of this encounter Medications [...] CDT) 06/16/2023 11:0 0 AM CDT Narrative [facility] - 06/16/2023 11:36 AM CDT Vent Rate: 70 bpm RR Interval: 852 msec ID Interval: 139 msec QRS Duration: 132 msec QT Interval: 393 msec QTC Interval: 414 msec P-R-T [place]: 76 - -60 - 38 degrees SINUS [...] ECG ORDERABLES Edited R esult - Final [facility] [employer] documented in this encounter Visit Diagnoses Diagnosis Pre-operative exam Unspecified pre-operative examination documented in this encounter Care Teams Laborer Steel Handling Relationship Specialty Start Date End Date Denis Platt MD [address] [place] [address] PCP - General Family Medicine 01/14/22 07/18/23 documented as of this encounter
--- OUTSIDE RECORDS SUMMARY | 2024-10-22 00:53 | XMS_ITS | Encounter Summary ---
Author Organization [facility] Address [address] [place] [address] Care Team Providers Care Slack Line Yarder Name Role Phone Denis Platt MD Primary Care Provide r Reason for Visit * Reason Onset Date Comments Surgery Date 04/16/2023 Encounter Details Date Type Department Care Team (Late st Contact Info) Description 04/16/2023 Telephone [facility] Orthopedics and Sports Medicine 4 [facility] [address] [place] [phone] Herber Knott MD [address] [place] [address] [address] [place], [place] [id number] Surgery Date Social History Tobacco Use Types Packs/Day Years Used Date Smoking Tobacco: Former Cigarettes Q uit: 09/28/1978 Smokeless Tobacco: Never Alcohol Use Standard Drinks/Week Comments Yes 0 (1 standard drink = 0.6 oz pur e alcohol) Comments Unknown Sex and Gender Information Value Date Recorded Sex Assigned at Not on file Legal Sex Female 8:30 AM HAND OR MACHINE PASTER Gender Identity Female 10/06/2021 4:28 PM HAND OR MACHINE PASTER Sexual Orientation Choose not to disclose 2020 4:28 PM HAND OR MACHINE PASTER documented as of this encounter Miscellaneous Notes [...] Amie's call, stated to call back @ [phone]---tried calling that #,, it is not accepting calls at this time. Left voicemail on [phone] to let us know which day she [...] on filedocumented in this encounter Care Teams Slack Line Yarder Relationship Specialty Start Date End Date Denis Platt MD [address] [place] [address] PCP - General Family Medicine 01/14/22 07/18/23 documented as of this encounter
--- OUTSIDE RECORDS SUMMARY | 2024-10-22 00:53 | XMS_ITS | Encounter Summary ---
Author Organization [facility] Address [address] [place] [address] Care Team Providers Care Head Of Cytogenetics Name Role Phone Denis Platt MD Primary Care Provide r Encounter Details Date Type Department Care Team (Late st Contact Info) Description 06/11/2023 Telephone [facility] Orthopedics and Sports Medicine 4 [facility] [address] [place] [address] Herber Knott MD [address] [place] [address] [place] [address] Social History Tobacco Use Types Packs/Day Years Used Date Smoking Tobacco: Former Cigarettes Q uit: 09/28/1978 Smokeless Tobacco: Never Alcohol Use Standard Drinks/Week Comments Yes 0 (1 standard drink = 0.6 oz pur e alcohol) Comments Unknown Sex and Gender Information Value Date Recorded Sex Assigned at Not on file Legal Sex Female 8:30 AM CLIENT CARE MANAGER Gender Identity Female 10/06/2021 4:28 PM CLIENT CARE MANAGER Sexual Orientation Choose not to disclose 2020 4:28 PM CLIENT CARE MANAGER documented as of this encounter Miscellaneous Notes * Telephone Encounter - Amie Lion MA - 06/11/2023 11:23 AM CDT Called and lvm for patient to have labs and clearance done chloe. documented in this encounter Plan of Treatment Not on file documented as of this encounter Visit Diagnoses Not on filedocumented in this encounter Care Teams Head Of Cytogenetics Relationship Specialty Start Date End Date Denis Platt MD [address] [place] [address] PCP - General Family Medicine 01/14/22 07/18/23 documented as of this encounter
--- OUTSIDE RECORDS SUMMARY | 2024-10-22 00:53 | XMS_ITS | Encounter Summary ---
Author Organization [facility] Healthcare Address [address] [place] [address] Care Team Providers Care Operations Administrative Assistant Name Role Phone Denis Platt MD Primary Care Provide r Encounter Details Date Type Department Care Team (Latest Contact Info) Description 06/16/2023 9:32 AM CDT - 06/16/2023 11:59 PM CDT Hospital Encounter [facility] [address] [place] [address] Pre-operative exam Discharge Disposition: Discharge to home [...] on file Legal Sex Female 8:30 AM STAVE GRADER Gender Identity Female 10/06/2021 4:28 PM STAVE GRADER Sexual Orientation Choose not to disclose 2020 4:28 PM STAVE GRADER documented as of this encounter Medications at [...] PM T: ??06/17/2023 5:08 PM Report ID: [id number] Reading Location: ??[id number] Procedure Note Kali Georges MD - 06/17/2023 [...] by Kali Georges M.D. JR: Report ID: [id number] Reading Location: [place] [address] Herber Knott MD IMG XR PROCEDURES Final Result documented in this encounter Visit Diagnoses Diagnosis Pre-operative exam Unspecified pre-operative examination documented in this encounter Care Teams Operations Administrative Assistant Relationship Specialty Start Date End Date Denis Platt MD [address] [place] [address] PCP - General Family Medicine 01/14/22 07/18/23 documented as of this encounter
--- OUTSIDE RECORDS SUMMARY | 2024-10-22 00:53 | XMS_ITS | Encounter Summary ---
Author Organization [facility] Healthcare Address [address] [place] [address] Care Team Providers Care Urgent Care Physician Assistant Name Role Phone Denis Platt MD Primary Care Provide r Encounter Details Date Type Department Care Team (Late st Contact Info) Description 06/16/2023 9:25 AM CDT [address] [address] Pre-operative exam Social History Tobacco Use Types Packs/Day Years Used Date Smoking Tobacco: Former Cigarettes Q uit: 09/28/1978 Smokeless Tobacco: Never Alcohol Use Standard Drinks/Week Comments Yes 0 (1 standard drink = 0.6 oz pur e alcohol) Comments Unknown Sex and Gender Information Value Date Recorded Sex Assigned at Not on file Legal Sex Female 8:30 AM HEALTH COMPANION Gender Identity Female 10/06/2021 4:28 PM HEALTH COMPANION Sexual Orientation Choose not to disclose 2020 4:28 PM HEALTH COMPANION documented as of this encounter Plan of [...] eGFR 77 mL/min/1. 73 m2 [facility] ([place]) Comment: Interpretive Data Reference Interval Normal ?>/= [...] BLOOD ORDERABLES Fin al Result [facility] ([place]) 1 [facility] [place] [address] * (ABNORMAL) Differential, auto (06/16/2023 10:05 AM [...] Fin al Result [facility] ([place]) 1 [facility] [employer] [place] [place] [address] * (ABNORMAL) CBC with auto differential (06/16/2023 [...] Fin al Result [facility] ([place]) 1 [facility] [place] [address] * (ABNORMAL) Comprehensive metabolic panel (06/16/2023 10:05 [...] 6(L) 7 - 45 Units/L [facility] ([place]) AST 8(L) 10 - 45 Units/L [facility] ([place]) Blood 06/16/2023 10:0 5 AM CDT 06/16/2023 11:05 AM CDT Herber Knott MD LAB BLOOD ORDERABLES Fin al Result Performing Organization Address [facility] Co de Phone Number [facility] ([place]) 1 [facility] [place] [address] * Hemoglobin A1c (06/16/2023 10:05 AM CDT) Hgb A1C 5.2 4.0 - 5.6 % [facility] ([place]) Estimated Average Glucose 103 mg/dL [facility] ([place]) Comment: The ADA recommends reporting an estimated Average Glucose (eAG) with all Hemoglobin A1c results using the equation derived from a study of 507 normal and diabetic adults. ??Minority populations were underrepresented and children were not included. ?? (Diabetes Care 31:5251-2290, 2008). ??The eAG is not equivalent to a fasting glucose. Blood 06/16/2023 10:0 5 AM CDT 06/16/2023 11:05 AM CDT Herber Knott MD LAB BLOOD ORDERABLES Fin al Result Performing Organization Address [facility] de Phone Number [facility] ([place]) 1 [facility] [address] [place] [address] documented in this encounter Visit Diagnoses Diagnosis Pre-operative exam Unspecified pre-operative examination documented in this encounter Care Teams Urgent Care Physician Assistant Relationship Specialty Start Date End Date Denis Platt MD [address] [place] [address] PCP - General Family Medicine 01/14/22 07/18/23 documented as of this encounter
--- OUTSIDE RECORDS SUMMARY | 2024-10-22 00:53 | XMS_ITS | Encounter Summary ---
Author Organization [facility] Address [address] [place] [address] Care Team Providers Care Dryer Operator Name Role Phone Denis Platt MD Primary Care Provide r Reason for Visit * Reason Comments Establish Care New patient Hip Pain Knee Pain Encounter Details Date Type Department Care Team (Late st Contact Info) Description 07/08/2023 12:30 PM CDT Office Visit [facility] Primary Care at [address] [place] [address] Gideon Campbell MD [address] [place] [address] [address] [place] [address] Essential hypertension (Primary Dx); Paroxysmal 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 (CMS/HCC) (HCC); Microcytic anemia; 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 goal <100; Non-rheumatic aortic stenosis; Thrombocytosis; shelter 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 Social [...] on file Legal Sex Female 8:30 AM WELT MAKER Gender Identity Female 10/06/2021 4:28 PM WELT MAKER Sexual Orientation Choose not to disclose 2020 4:28 PM WELT MAKER documented as of this encounter Last Filed [...] OTHER MEDICAL, and Hypertension. 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 Pt no [...] Final Resul t [facility] ([place]) 1 [facility] [place] [address] * (ABNORMAL) Iron profile w/ IBC (07/08/2023 1:30 PM CDT) Iron 11(L) 35 - 145 mcg/dL [facility] ([place]) TIBC 161(L) 250 - 400 mcg/dL [facility] ([place]) Transferrin saturation 7(L) 20 - 50 % [facility] ([place]) Blood 07/08/2023 1:30 PM CDT 07/08/2023 2:09 PM CDT Gideon Campbell MD LAB BLOOD ORDERABLES Final Resul t [facility] ([place]) 1 [facility] [place] [address] * (ABNORMAL) CBC with auto differential (07/08/2023 [...] ([place]) MCH 20.3(L) 27.1 - 33.3 pg [facility] ([place]) MCHC 28.6(L) 32.3 - 35.7 g/dL [facility] ([place]) RDW CV 18.4(H) 11.1 - 14.9 % [facility] ([place]) RDW SD 46.8 35.7 - 48.1 fL [facility] ([place]) NRBC abs 0.00 0.00 - 0.01 K/cumm [facility] ([place]) Blood 07/08/2023 1:30 PM CDT 07/08/2023 2:09 PM CDT us Gideon Campbell MD LAB BLOOD ORDERABLES Final Resul t [facility] ([place]) 1 [facility] [place] [address] documented in this encounter Visit Diagnoses Diagnosis Essential hypertension- Primary Unspecified essential hypertension Paroxysmal 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 (CMS/HCC) (HCC) Atrial fibrillation Microcytic anemia Unspecified iron 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 goal <100 Other and unspecified hyperlipidemia Non-rheumatic aortic stenosis Thrombocytosis Essential thrombocythemia 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
--- OUTSIDE RECORDS SUMMARY | 2024-10-22 00:53 | XMS_ITS | Encounter Summary ---
Author Organization [facility] Healthcare Address [address] [place] [address] Care Team Providers Care Professor Of Theology Name Role Phone Gideon Campbell MD Primary Care Provider [phone] Encounter Details Date Type Department Care Team (Late st Contact Info) Description 07/30/2023 Orders Only [facility] Primary Care at [address] [place] [address] Gideon Campbell MD [address] [place] [address] [address] [place] [address] Other iron 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 (Primary [...] on file Legal Sex Female 8:30 AM BILLET RECORDER Gender Identity Female 10/06/2021 4:28 PM BILLET RECORDER Sexual Orientation Choose not to disclose 2020 4:28 PM BILLET RECORDER documented as of this encounter Plan of Treatment Not on file documented as of this encounter Visit Diagnoses Diagnosis Other iron 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- Primary Unintentional weight loss Loss of weight documented in this encounter Care Teams Professor Of Theology Relationship Specialty Start Date End Date Gideon Campbell MD [address] [facility] [address] [place] [address] PCP - General Family Medicine 07/19/23 documented as of this encounter
--- OUTSIDE RECORDS SUMMARY | 2024-10-22 00:53 | XMS_ITS | Encounter Summary ---
Author Organization [facility] Address [address] [place] [address] Phone Care Team Providers Care General Activities Therapist Name Role Phone Gideon Campbell MD Primary Care Provider [phone] Encounter Details Date Type Department Care Team (Late st Contact Info) Description 08/02/2023 Telephone [facility] Oncology [address] [place] [address] Yamileth Santiago, JACOB Social History Tobacco [...] on file Legal Sex Female 8:30 AM SCHOOL PLANT CONSULTANT Gender Identity Female 10/06/2021 4:28 PM SCHOOL PLANT CONSULTANT Sexual Orientation Choose not to disclose 2020 4:28 PM SCHOOL PLANT CONSULTANT documented as of this encounter Miscellaneous Notes * Telephone Encounter - Yamileth Santiago CLT - 08/02/2023 8:42 AM CDT LMOM TO SCHEDULE APPT documented in this encounter Plan of Treatment Not on file documented as of this encounter Visit Diagnoses Not on filedocumented in this encounter Care Teams General Activities Therapist Relationship Specialty Start Date End Date Gideon Campbell MD 2 [facility] [address] [address] PCP - General Family Medicine 07/19/23 documented as of this encounter
--- OUTSIDE RECORDS SUMMARY | 2024-10-22 00:53 | XMS_ITS | Encounter Summary ---
Author Organization [facility] Healthcare Address [address] [place] [address] Care Team Providers Care Sap Bw Bi Developer Name Role Phone Denis Platt MD Primary Care Provide r Encounter Details Date Type Department Care Team (Latest Contact Info) Description 06/17/2023 10:54 AM CDT - 06/17/2023 11:59 PM CDT Hospital Encounter [address] [address] Pre-operative exam Discharge Disposition: Discharge to home [...] on file Legal Sex Female 8:30 AM CYLINDER SANDER OPERATOR Gender Identity Female 10/06/2021 4:28 PM CYLINDER SANDER OPERATOR Sexual Orientation Choose not to disclose 2020 4:28 PM CYLINDER SANDER OPERATOR documented as of this encounter Medications [...] [facility] ([place]) Comment:Testing performed by : [facility], [address] [facility] [place]., [address] Organism (CLINICALLY INSIGNIFICANT GROWTH [facility] ([place]) Urine 06/17/2023 10:3 0 AM CDT 06/17/2023 3:00 PM CDT Narrative [facility] ([place]) - 06/18/2023 5:27 PM CDT Urine culture reflexed based upon urinalysis results. Testing performed by [facility] Microbiology Laboratory ([phone]) us Herber Knott MD LAB MICROBIOLOGY - [facility] AL ORDERABLES Final Result [facility]) 1 [facility] Department [place] [address] * (ABNORMAL) Urinalysis, microscopic only (06/17/2023 10:30 AM CDT) WBC, ur >50(A) 0 - 5 /HPF [facility] ([place]) RBC, ur 11-20(A) 0 - 2 /HPF [facility] ([place]) Epithelial cells, squamous, ur 1-5 0 - 5 /HPF [facility] ([place]) Bacteria, ur Trace(A) [facility] ([place]) Mucous, ur Present(A) [facility] A ([place]) Hyaline casts, ur 1-5 0 - 10 /LPF [facility] ([place]) Culture Reflex Comment Reflex to urine culture will be performed. [facility] ([place]) Urine 06/17/2023 10:3 0 AM CDT 06/17/2023 11:12 AM CDT Herber Knott MD LAB URINE ORDERABLES [facility] al Result [facility] ([place]) 1 [facility] Department [place] [address] * (ABNORMAL) Urinalysis reflex to microscopic and culture Urine (06/17/2023 10:30 AM CDT) Color, ur Yellow Yellow [facility] ([place]) Clarity, ur Turbid(A) Clear [facility] A ([place]) Specific gravity, ur 1.009 1.003 - 1.030 [facility] ([place]) pH, urine 6.[address] [facility] ([place]) Protein, ur ql Negative Negative [...] 06/17/2023 11:12 AM CDT Narrative [facility] ([place]) - 06/17/2023 11:16 AM CDT ?? Urine pH is affected by diet, medications, systemic acid-base disturbances, and renal tubular function. ??pH may affect urinary stone formation. ??For example, urine pH below 6.0 may help reduce the tendency for calcium phosphate stones and pH greater than 6.0 may reduce the tendency for uric acid stone formation. Source: [employer]. Last revised 10-21-2017 us Herber Knott MD LAB MICROBIOLOGY - [facility] AL ORDERABLES Final Result [facility] ([place]) 1 [facility] Department [place] [address] documented in this encounter Visit Diagnoses Diagnosis Pre-operative exam Unspecified pre-operative examination documented in this encounter Care Teams Sap Bw Bi Developer Relationship Specialty Start Date End Date Denis Platt MD [address] [place] [address] PCP - General Family Medicine 01/14/22 07/18/23 documented as of this encounter
--- OUTSIDE RECORDS SUMMARY | 2024-10-22 00:53 | XMS_ITS | Encounter Summary ---
Author Organization [facility] Address [address] [place] [address] Care Team Providers Care Bench Inspector Name Role Phone Denis Platt MD Primary Care Provide r Reason for Referral * Cardiology (Routine) - Closed Specialty Diagnoses / Procedures Referred By Lyndsey t Referred To Contact Diagnoses Pre-operative exam Procedures ECG 12 lead Herber Knott MD [address] [place] [address] [address], [place] [address] Phone: tel: [facility] [address] [place] [address] Referral ID Status Reason Start Date Expiration Date Visits Re quested Visits Authorized [id number] Closed 04/22/2023 06/16/2023 1 1 Encounter Details Date Type Department Care Team (Late st Contact Info) Description 04/22/2023 Orders Only [facility] Orthopedics and Sports Medicine [address] [facility] [address], [place] [address] Herber Knott MD [address] [place] [address] [address] [place] [address] Pre-operative exam (Primary Dx) Social History Tobacco Use Types Packs/Day Years Used Date Smoking Tobacco: Former Cigarettes Q uit: 09/28/1978 Smokeless Tobacco: Never Alcohol Use Standard Drinks/Week Comments Yes 0 (1 standard drink = 0.6 oz pur e alcohol) Comments Unknown Sex and Gender Information Value Date Recorded Sex Assigned at Not on file Legal Sex Female 8:30 AM TEMPERATURE REGULATOR Gender Identity Female 10/06/2021 4:28 PM TEMPERATURE REGULATOR Sexual Orientation Choose not to disclose 2020 4:28 PM TEMPERATURE REGULATOR documented as of this encounter Miscellaneous Notes [...] tendency for uric acid stone formation. Source: [employer]em[employer]. Last revised 10-21-2017 Herber Knott MD LAB MICROBIOLOGY - GENER AL ORDERABLES Final Result Performing Organization Address [facility] Co de Phone Number [facility] ([place]) 1 [facility] [place] [address] * ECG 12 lead (06/16/2023 10:25 AM CDT) 06/16/2023 11:0 0 AM CDT Narrative [facility] - 06/16/2023 11:36 AM CDT Vent Rate: 70 bpm RR Interval: 852 msec AL Interval: 139 msec QRS Duration: 132 msec QT Interval: 393 msec QTC Interval: 414 msec P-R-T Corin[place]: 76 - -60 - 38 degrees SINUS [...] R esult - Final Performing Organization Address [facility] de Phone Number [facility] * (ABNORMAL) CBC with auto differential (06/16/2023 [...] 20.3(L) 27.1 - 33.3 pg [facility] ([place]) MCHC 28.7(L) 32.3 - 35.7 g/dL [facility] ([place] RDW CV 18.2(H) 11.1 - 14.9 % [facility] ([place]) RDW SD 46.0 35.7 - 48.1 fL [facility] ([place] NRBC abs 0.00 0.00 - 0.01 K/cumm [facility] ([place] Blood 06/16/2023 10:0 5 AM CDT 06/16/2023 11:05 AM CDT us Herber Knott MD LAB BLOOD ORDERABLES Fin al Result [facility] ([place]) 1 [facility] [place] [address] * (ABNORMAL) Comprehensive metabolic panel (06/16/2023 10:05 AM CDT) Sodium 137 135 - 145 mmol/L [facility] ([place] Potassium, pl 4.0 3.3 - 4.9 mmol/L [facility] ([place]) Chloride 99 97 - 110 mmol/L [facility] ([place]) CO2 25 22 - 32 mmol/L [facility] ([place]) Anion gap 14 2 - 15 mmol/L [facility] ([place]) BUN 14 6 - 25 mg/dL [facility] ([place]) Creatinine 0.76 0.60 - 1.10 mg/dL [facility] ([place]) Glucose 104 70 - 199 mg/dL [facility] ([place] Comment: Interpretive Data Fasting glucose [...] 2022. Calcium 9.2 8.5 - 10.3 mg/dL [facility] ([place]) Bilirubin, total 0.5 0.1 - [...] LAB BLOOD ORDERABLES Fin al Result [facility] 1 [facility] [place] [address] * Hemoglobin A1c (06/16/2023 10:05 AM CDT) Hgb A1C 5.2 4.0 - 5.6 % [facility] ([place]) Estimated Average Glucose 103 mg/dL [facility] ([place]) Comment: The ADA recommends reporting an estimated Average Glucose (eAG) with all Hemoglobin A1c results using the equation derived from a study of 507 normal and diabetic adults. ??Minority populations were underrepresented and children were not included. ?? (Diabetes Care 31:3402-8265, 2008). ??The eAG is not equivalent to a fasting glucose. Blood 06/16/2023 10:0 5 AM CDT 06/16/2023 11:05 AM CDT us Herber Knott MD LAB BLOOD ORDERABLES Fin al Result [facility] [place]) 1 [facility] [place] [address] * XR Chest Pa Lateral 2 Views [...] PM T: ??06/17/2023 5:08 PM Report ID: [id number] Reading Location: ??[id number] Procedure Note Kali Georges MD - 06/17/2023 [...] by Kali Georges M.D., JR: Report ID: [id number] Reading Location: [id number] Herber Knott MD IMG XR PROCEDURES Final Result documented in this encounter Visit Diagnoses Diagnosis Pre-operative exam- Primary Unspecified pre-operative examination Pre-operative exam Unspecified pre-operative examination Pre-operative exam Unspecified pre-operative examination Pre-operative exam Unspecified pre-operative examination documented in this encounter Care Teams Bench Inspector Relationship Specialty Start Date End Date Denis Platt MD [address] [place] [address] PCP - General Family Medicine 01/14/22 07/18/23 documented as of this encounter
--- OUTSIDE RECORDS SUMMARY | 2024-10-22 00:53 | XMS_ITS | Encounter Summary ---
Author Organization [facility] Address [address] [place] [address] Phone Care Team Providers Care Veterinary Anatomist Name Role Phone Gideon Campbell MD Primary Care Provider Encounter Details Date Type Department Care Team (Late st Contact Info) Description 10/15/2023 Telephone [facility] Oncology [address] [place] [address] Deborah Armstrong, JACOB Social History Tobacco [...] on file Legal Sex Female 8:30 AM SEA SHELL GATHERER Gender Identity Female 10/06/2021 4:28 PM SEA SHELL GATHERER Sexual Orientation Choose not to disclose 2020 4:28 PM SEA SHELL GATHERER documented as of this encounter Miscellaneous Notes * Telephone Encounter - Deborah Armstrong CLT - 10/15/2023 1:32 PM SEA SHELL GATHERER appt confirmation SHELL GATHERER documented in this encounter Plan of Treatment Not on file documented as of this encounter Visit Diagnoses Not on filedocumented in this encounter Care Teams Veterinary Anatomist Relationship Specialty Start Date End Date Gideon Campbell MD [address] [facility] [address] [place] [address] PCP - General Family Medicine 07/19/23 documented as of this encounter
--- OUTSIDE RECORDS SUMMARY | 2024-10-22 00:53 | XMS_ITS | Encounter Summary ---
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 Social History Tobacco [...] on file Legal Sex Female 8:30 AM FISH AND WILDLIFE TECHNICIAN Gender Identity Female 10/06/2021 4:28 PM FISH AND WILDLIFE TECHNICIAN Sexual Orientation Choose not to disclose 2020 4:28 PM FISH AND WILDLIFE TECHNICIAN documented as of this encounter Plan of Treatment Not on file documented as of this encounter Procedures Procedure Name Priority Date/Time Associated Diagnosis Comments PT MIXING STUDY Routine 10/18/2023 1:00 PM FISH AND WILDLIFE TECHNICIAN APTT Routine 10/18/2023 1:00 PM FISH AND WILDLIFE TECHNICIAN 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, 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 PROTIME-INR Routine 10/18/2023 1:00 PM FISH AND WILDLIFE TECHNICIAN 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, unspecified iron deficiency anemia type longterm (current) use of anticoagulants FIBRINOGEN Routine 10/18/2023 1:00 PM FISH AND WILDLIFE TECHNICIAN 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, 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 DIFFERENTIAL AUTO Routine 10/18/2023 10: 35 AM FISH AND WILDLIFE TECHNICIAN 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, unspecified iron deficiency anemia type CBC WITH AUTO DIFFERENTIAL Routine 10/18/2023 10:35 AM FISH AND WILDLIFE TECHNICIAN 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, unspecified iron deficiency anemia type documented in this encounter Results * PT mixing study (10/18/2023 1:00 PM FISH AND WILDLIFE TECHNICIAN) PT 13.5 10.3 - 13.7 sec [facility] ([place]) Comment:Testing performed by : [facility], [address] [place]., [address] INR 1.18 0.90 - 1.20 [facility] ([place]) Comment: Interpretive data Oral anticoagulant therapeutic ranges: Venous thromboembolism prophylaxis or treatment: 2.0-3.0 CARDIOLOGY Standard range: 2.0-3.0 High-intensity range: 2.5-3.5 Refer to indication-specific guidelines for appropriate target ranges for prosthetic heart valve replacement. Current interpretive data was last revised on 2019. Testing performed by: [facility], [address] [place]., [address] PT, 50/50 mix See Comment 10.3 - [...] last revised on 2019. Testing performed by: [facility], [address] [place]., [address] INR, 50/50 mix See Comment 0.90 - 1.20 [facility] ([place]) Comment: Credited,Test Not Indicated. Testing performed by: [facility], [address] [place]., [address] Blood 10/18/2023 1:00 PM FISH AND WILDLIFE TECHNICIAN 10/18/2023 6:00 PM FISH AND WILDLIFE TECHNICIAN Luis F Lofton MD LAB BLOOD ORDERABLES Final Re sult Performing Organization Address City/[facility] Co de Phone Number [facility] ([place]) 1 [facility] [place] [address] * (ABNORMAL) Fibrinogen (10/18/2023 1:00 PM FISH AND WILDLIFE TECHNICIAN) Fibrinogen 533(H) 170 - 400 mg/dL [facility] ([place]) Comment:Testing performed by : [place], [address] Blood 10/18/2023 1:00 PM FISH AND WILDLIFE TECHNICIAN 10/18/2023 2:08 PM FISH AND WILDLIFE TECHNICIAN Luis F Lofton MD LAB BLOOD ORDERABLES Final Re sult Performing Organization Address [facility] de Phone Number [facility]RE [facility]N ([place]) [address] [place] [address] Department [place] [address] * Protime-INR (10/18/2023 1:00 PM FISH AND WILDLIFE TECHNICIAN) PT 13.7 10.3 - 13.7 sec [facility] ([place]) Comment:Testing performed by : [place], [address] INR 1.20 0.90 - 1.20 [facility] ([place]) Comment: Interpretive data Oral anticoagulant therapeutic ranges: Venous thromboembolism prophylaxis or treatment: 2.0-3.0 CARDIOLOGY Standard range: 2.0-3.0 High-intensity range: 2.5-3.5 Refer to indication-specific guidelines for appropriate target ranges for prosthetic heart valve replacement. Current interpretive data was last revised on 2019. Testing performed by: [place], [address] Blood 10/18/2023 1:00 PM FISH AND WILDLIFE TECHNICIAN 10/18/2023 2:08 PM FISH AND WILDLIFE TECHNICIAN Result [facility] Luis F Lofton MD LAB BLOOD ORDERABLES Final Re sult Performing Organization Address City/[facility]/ZIP Co de Phone Number [facility] ([place]) 1 [facility] [place] [address] * (ABNORMAL) aPTT (10/18/2023 1:00 PM FISH AND WILDLIFE TECHNICIAN) aPTT 40(H) 28 - 38 sec [facility] ([place]) Comment: Interpretive Data Heparin therapeutic range: 66.0 - 100.0 seconds. Range based on correlation with therapeutic heparin activity range of 0.3 - 0.7 Units/mL. Current interpretive data was last revised on 2023. Testing performed by: [facility], [address] [facility], [place], [address] Blood 10/18/2023 1:00 PM FISH AND WILDLIFE TECHNICIAN 10/18/2023 2:08 PM FISH AND WILDLIFE TECHNICIAN Luis F Lofton MD LAB BLOOD ORDERABLES Final Re sult Performing Organization Address [facility] Co de Phone Number [facility] ([place]) 1 [facility] [place] [address] * (ABNORMAL) Differential, auto (10/18/2023 10:35 AM FISH AND WILDLIFE TECHNICIAN) Neutrophil abs 6.0 1.5 - 6.5 K/cumm [facility] ([place]) Comment:Testing performed by : [facility] [address], Medical Office [facility] [address], [place] [address] Imm gran abs 0.0 0.0 - 0.1 K/cumm [facility] ([place]) Comment:Testing performed by : [facility] [address], Medical Office [facility] [address], [place] [address] Lymphocyte abs 0.5(L) 0.8 - 3.3 K/cumm [facility] ([place]) Comment:Testing performed by : [facility] [address], Medical Office [facility] [address], [place] [address] Monocyte abs 0.3 0.2 - 0.8 K/cumm [facility] ([place]) Comment:Testing performed by : [facility] [address], Medical Office [facility] [address], [place] [address] Eosinophil abs 0.1 0.0 - 0.5 K/cumm [facility] ([place]) Comment:Testing performed by : [facility] [address], Medical Office [facility] [address], [place] [address] Basophil abs 0.0 0.0 - 0.1 K/cumm [facility] ([place]) Comment:Testing performed by : [facility] [address], Medical Office [facility] [address], [place] [address] Neutrophil pct 87.1 % [facility] ([place]) Comment: Interpretive Data Percent cell count reference ranges are not reported, since discordance with absolute values may lead to misinterpretation of CBC data. Current Interpretive Data was last revised on 2022. Testing performed by: [facility] [address], Medical Office [facility] [address], [place] [address] Imm gran pct 0.1 % [facility] ([place]) Comment: Interpretive Data Percent cell count reference ranges are not reported, since discordance with absolute values may lead to misinterpretation of CBC data. Current Interpretive Data was last revised on 2022. Testing performed by: [facility] [address], Medical Office [facility] [address], [place] [address] Lymphocyte pct 7.4 % [facility] ([place]) Comment: Interpretive Data Percent cell count reference ranges are not reported, since discordance with absolute values may lead to misinterpretation of CBC data. Current Interpretive Data was last revised on 2022. Testing performed by: [facility] [address], Medical Office [facility] [address], [place] [address] Monocyte pct 3.9 % [facility] ([place]) Comment: Interpretive Data Percent cell count reference ranges are not reported, since discordance with absolute values may lead to misinterpretation of CBC data. Current Interpretive Data was last revised on 2022. Testing performed by: [facility] [address], Medical Office [facility] [address], [place] [address] Eosinophil pct 1.2 % [facility] ([place]) Comment: Interpretive Data Percent cell count reference ranges are not reported, since discordance with absolute values may lead to misinterpretation of CBC data. Current Interpretive Data was last revised on 2022. Testing performed by: [facility] [address], Medical Office [facility] [address] [facility] [address], [place] [address] Basophil pct 0.3 % [facility] ([place]) Comment: Interpretive Data Percent cell count reference ranges are not reported, since discordance with absolute values may lead to misinterpretation of CBC data. Current Interpretive Data was last revised on 2022. Testing performed by: [facility] [address], Medical Office [facility] [address], [place] [address] Blood 10/18/2023 10:3 5 AM FISH AND WILDLIFE TECHNICIAN 10/18/2023 10:36 AM FISH AND WILDLIFE TECHNICIAN us Luis F Lofton MD LAB BLOOD ORDERABLES Final Re sult [facility] ([place]) 1 [facility] [place] [address] * (ABNORMAL) CBC with auto differential (10/18/2023 10:35 AM FISH AND WILDLIFE TECHNICIAN) WBC 6.9 3.8 - 9.9 K/cumm [facility] ([place]) Comment:Testing performed by : [facility] [address], Medical Office [facility] [address], [place] [address] Hgb 7.3(L) 11.9 - 15.5 g/dL [facility] ([place]) Comment:Testing performed by : [facility] [address], Medical Office [facility] [address], [place] [address] Hct 26.3(L) 35.6 - 45.5 % [facility] ([place]) Comment:Testing performed by : [facility] [address], Medical Office [facility] [address], [place] [address] Plt 507(H) 150 - 400 K/cumm [facility] ([place]) Comment:Testing performed by : [facility] [address], Medical Office [facility] [address], [place] [address] MPV 8.5(L) 9.1 - 12.3 fL [facility] ([place]) Comment:Testing performed by : [facility] [address], Medical Office [facility] [address], [place] [address] RBC 3.97 3.90 - 5.20 M/cumm [facility] ([place]) Comment:Testing performed by : [facility] [address], Medical Office [facility] [address], [place] [address] MCV 66.2(L) 81.3 - 96.4 fL [facility] ([place]) Comment:Testing performed by : [facility] [address], Medical Office [facility] [address], [place] [address] MCH 18.4(L) 27.1 - 33.3 pg [facility] ([place]) Comment:Testing performed by : [facility] [address], Medical Office [facility] [address], [place] [address] MCHC 27.8(L) 32.3 - 35.7 g/dL [facility] ([place]) Comment:Testing performed by : [facility] [address], Medical Office [facility] [address], [place] [address] RDW CV 19.4(H) 11.1 - 14.9 % [facility] ([place]) Comment:Testing performed by : [facility] [address], Medical Office [facility] [address], [place] [address] RDW SD 46.5 35.7 - 48.1 fL [facility] ([place]) Comment:Testing performed by : [facility] [address], Medical Office [facility] [address], [place] [address] NRBC abs Not Measured 0.00 - 0.01 K/cumm [facility] ([place]) Comment:Testing performed by : [facility] [address], Medical Office [facility] [address], [place] [address] Blood 10/18/2023 10:3 5 AM FISH AND WILDLIFE TECHNICIAN 10/18/2023 10:36 AM FISH AND WILDLIFE TECHNICIAN us Luis F Lofton MD LAB BLOOD ORDERABLES Final Re sult [facility] ([place]) 1 [facility] [place] [address] documented in this encounter Visit Diagnoses Diagnosis 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, unspecified iron deficiency anemia type- Primary longterm (current) use of anticoagulants Long-term (current) use of anticoagulants documented in this encounter Care Teams Pearl Peller Relationship Specialty Start Date End Date Gideon Campbell MD 2 [facility] [address] [address] PCP - General Family Medicine 07/19/23 documented as of this encounter
--- OUTSIDE RECORDS SUMMARY | 2024-10-22 00:54 | XMS_ITS | Encounter Summary ---
Author Organization [facility] Medical Group Address [address] [facility] [address] [place] [address] Care Team Providers Care Interactive Digital Media Specialist Name Role Phone Denis Platt MD Primary Care Provide r Reason for Visit * Diagnostic Imaging (Routine) - Closed Specialty Diagnoses / Procedures Referred By Lyndsey farmer Referred To Contact Diagnoses Primary osteoarthritis of right knee Procedures XR Hip Right 2 or 3 Views Ann Marie Puri PA Phone: tel: fax: [facility] Medical Group Referral ID Status Reason Start Date Expiration Date Visits Re quested Visits Authorized [id number] Closed 04/02/2023 04/02/2023 1 1 Encounter Details Date Type Department Care Team (Latest Contact Info) Description 04/02/2023 3:51 PM CDT - 04/02/2023 11:59 PM CDT Hospital Encounter [facility] Medical Group Orthopedics and Sports Medicine [address] [place] [address] [address], [place] [phone] Discharge Disposition: Discharge to home or self care Social History Tobacco Use Types Packs/Day Years Used Date Smoking Tobacco: Former Cigarettes Q uit: 09/28/1978 Smokeless Tobacco: Never Alcohol Use Standard Drinks/Week Comments Yes 0 (1 standard drink = 0.6 oz pur e alcohol) Comments Unknown Sex and Gender Information Value Date Recorded Sex Assigned at Not on file Legal Sex Female 8:30 AM HOOP EXPANDER Gender Identity Female 10/06/2021 4:28 PM HOOP EXPANDER Sexual Orientation Choose not to disclose 2020 4:28 PM HOOP EXPANDER documented as of this encounter Medications at [...] on filedocumented in this encounter Care Teams Interactive Digital Media Specialist Relationship Specialty Start Date End Date Denis Platt MD [address] [place] [address] PCP - General Family Medicine 01/14/22 07/18/23 documented as of this encounter
--- OUTSIDE RECORDS SUMMARY | 2024-10-22 00:54 | XMS_ITS | Encounter Summary ---
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 Social History Tobacco Use Types Packs/Day Years Used Date Smoking Tobacco: Former Cigarettes Q uit: 09/28/1978 Smokeless Tobacco: Never Alcohol Use Standard Drinks/Week Comments Yes 0 (1 standard drink = 0.6 oz pur e alcohol) Comments Unknown Sex and Gender Information Value Date Recorded Sex Assigned at Not on file Legal Sex Female 8:30 AM BOMBSIGHT SPECIALIST Gender Identity Female 10/06/2021 4:28 PM BOMBSIGHT SPECIALIST Sexual Orientation Choose not to disclose 2020 4:28 PM BOMBSIGHT SPECIALIST documented as of this encounter Plan [...] Diagnosis Atrial fibrillation, unspecified type (HCC)- Primary 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
--- OUTSIDE RECORDS SUMMARY | 2024-10-22 00:54 | XMS_ITS | Encounter Summary ---
Author Organization [facility] Medical Group Address [address] [facility] [address] [place] [address] Care Team Providers Care Media Planner Name Role Phone Denis Platt MD Primary Care Provide r Encounter Details Date Type Department Care Team (Late st Contact Info) Description 04/08/2022 Telephone [facility] Medical Group Orthopedics and Sports Medicine [address] [facility] [address], [place] [address] Tiana Beltran MA Social History Tobacco Use Types Packs/Day Years Used Date Smoking Tobacco: Former Cigarettes Q uit: 09/28/1978 Smokeless Tobacco: Never Alcohol Use Standard Drinks/Week Comments Yes 0 (1 standard drink = 0.6 oz pur e alcohol) Comments Unknown Sex and Gender Information Value Date Recorded Sex Assigned at Not on file Legal Sex Female 8:30 AM MOTORCYCLE TECHNICIAN Gender Identity Female 10/06/2021 4:28 PM MOTORCYCLE TECHNICIAN Sexual Orientation Choose not to disclose 2020 4:28 PM MOTORCYCLE TECHNICIAN documented as of this encounter Miscellaneous Notes [...] to get a verbal and call back. [phone] could not reach Dr. Knott or [...] on filedocumented in this encounter Care Teams Media Planner Relationship Specialty Start Date End Date Denis Platt MD [address] [place] [address] PCP - General Family Medicine 01/14/22 07/18/23 documented as of this encounter
--- OUTSIDE RECORDS SUMMARY | 2024-10-22 00:54 | XMS_ITS | Encounter Summary ---
Author Organization [facility] Medical Group Address [address] [facility] [address] [facility] [address] [place] [address] Care Team Providers Care Spring Inspector Name Role Phone Denis Platt MD Primary Care Provide r Encounter Details Date Type Department Care Team (Latest Contact Info) Description 11/11/2022 Anticoagulation Visit [facility] Medical Group Cardiology [address] [place] [address] Rachel Zhao RN Atrial fibrillation, [...] on file Legal Sex Female 8:30 AM YARDAGE ESTIMATOR Gender Identity Female 10/06/2021 4:28 PM YARDAGE ESTIMATOR Sexual Orientation Choose not to disclose 2020 4:28 PM YARDAGE ESTIMATOR documented as of this encounter Plan of [...] Diagnosis Atrial fibrillation, unspecified type (HCC)- Primary halfway 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 documented in this encounter Care Teams Spring Inspector Relationship Specialty Start Date End Date Denis Platt MD [address] [place] [address] PCP - General Family Medicine 01/14/22 07/18/23 documented as of this encounter
--- OUTSIDE RECORDS SUMMARY | 2024-10-22 00:54 | XMS_ITS | Encounter Summary ---
Author Organization [facility] Medical Group Address [address] [facility] [address] [place] [address] Care Team Providers Care Ivory Polisher Name Role Phone Denis Platt MD Primary Care Provide r Reason for Visit * Reason Comments Post-op Encounter Details Date Type Department Care Team ([facility] st Contact Info) Description 04/21/2022 11:00 AM CDT Office Visit [facility] Medical Group Orthopedics and Sports Medicine [address] [facility] [address] [place] [phone] Victoria Madison PA [address] [place] [address] [address] [place] [address] 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
--- OUTSIDE RECORDS SUMMARY | 2024-10-22 00:54 | XMS_ITS | Encounter Summary ---
Author Organization [facility] Address [address] [place] [address] Care Team Providers Care Flake Or Shred Roll Operator Name Role Phone Denis Platt MD Primary Care Provide r Encounter Details Date Type Department Care Team (Late st Contact Info) Description 09/17/2022 Telephone [facility] Cardiology [address] [place] [address] Andrade Brown MD [facility] [place] [id number] Social History Tobacco Use Types Packs/Day Years Used Date Smoking Tobacco: Former Cigarettes Q uit: 09/28/1978 Smokeless Tobacco: Never Alcohol Use Standard Drinks/Week Comments Yes 0 (1 standard drink = 0.6 oz pur e alcohol) Comments Unknown Sex and Gender Information Value Date Recorded Sex Assigned at Not on file Legal Sex Female 8:30 AM TIME STUDY ENGINEER Gender Identity Female 10/06/2021 4:28 PM TIME STUDY ENGINEER Sexual Orientation Choose not to disclose 2020 4:28 PM TIME STUDY ENGINEER documented as of this encounter Miscellaneous Notes * Telephone Encounter - Rachel Zhao RN - 09/23/2022 1:16 PM TIME STUDY ENGINEER Spoke with pt, reviewed message from [facility]-she is agreeable to go back on warfarin-she wanted to pkvw3ly 5 days a week and 2mg 2 days a week and will recheck INR in 2 weeks. STUDY ENGINEER * Telephone Encounter - Rachel Zhao RN - 09/22/2022 9:15 AM TIME STUDY ENGINEER Sent pt [facility]'s response via my chart also. STUDY ENGINEER * Telephone Encounter - Rachel Zhao RN - 09/22/2022 9:13 AM TIME STUDY ENGINEER LM on VM reviewing message from [facility]-requested callback to discuss. STUDY ENGINEER * Telephone Encounter - Rachel Zhao RN - 09/21/2022 9:29 AM TIME STUDY ENGINEER LM on VM reviewing message from [facility]-requested callback to discuss. STUDY ENGINEER * Telephone Encounter - Rachel Zhao RN - 09/18/2022 10:21 AM TIME STUDY ENGINEER LM on VM reviewing message from [facility]-requested callback to discuss. STUDY ENGINEER * Telephone Encounter - Rachel Zhao RN - 09/17/2022 3:07 PM TIME STUDY ENGINEER Spoke with pt about INR from last [...] to not take anymore if ok with [facility]. She would like to know his recommendations. Will forward to [facility]. Please advise, thank you! STUDY ENGINEER documented in this encounter Plan of Treatment Not on file documented as of this encounter Visit Diagnoses Not on filedocumented in this encounter Care Teams Flake Or Shred Roll Operator Relationship Specialty Start Date End Date Denis Platt MD [address] [place], [place] [id number] PCP - General Family Medicine 01/14/22 07/18/23 documented as of this encounter
--- OUTSIDE RECORDS SUMMARY | 2024-10-22 00:54 | XMS_ITS | Encounter Summary ---
Author Organization [facility] Address [address] [place] [address] Care Team Providers Care Crm Marketing Specialist Name Role Phone Denis Platt MD Primary Care Provide r Encounter Details Date Type Department Care Team (Latest Contact Info) Description 04/02/2023 7:54 AM CDT - 04/02/2023 11:59 PM CDT Hospital Encounter [facility] Orthopedics and Sports Medicine [address] [facility] [address] [address] Discharge Disposition: Discharge to home [...] file Legal Sex Female 8:30 AM MENTAL TELEPATHIST Gender Identity Female 10/06/2021 4:28 PM MENTAL TELEPATHIST Sexual Orientation Choose not to disclose 2020 4:28 PM MENTAL TELEPATHIST documented as of this encounter Medications at [...] on filedocumented in this encounter Care Teams Crm Marketing Specialist Relationship Specialty Start Date End Date Denis Platt MD [address] [place] [address] PCP - General Family Medicine 01/14/22 07/18/23 documented as of this encounter
--- OUTSIDE RECORDS SUMMARY | 2024-10-22 00:54 | XMS_ITS | Encounter Summary ---
Author Organization [facility] Address [address] [place] [address] Care Team Providers Care Sanitation Inspector Name Role Phone Denis Platt MD Primary Care Provide r Encounter Details Date Type Department Care Team (Latest Contact Info) Description 04/24/2022 Anticoagulation Visit [facility] Cardiology [address] [place] [address] Rosy White RN Atrial fibrillation, unspecified type (HCC) (Primary Dx); halfway 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 Social History Tobacco Use Types Packs/Day Years Used Date Smoking Tobacco: Former Cigarettes Q uit: 09/28/1978 Smokeless Tobacco: Never Alcohol Use Standard Drinks/Week Comments Yes 0 (1 standard drink = 0.6 oz pur e alcohol) Comments Unknown Sex and Gender Information Value Date Recorded Sex Assigned at Not on file Legal Sex Female 8:30 AM MIXER FOAM RUBBER Gender Identity Female 10/06/2021 4:28 PM MIXER FOAM RUBBER Sexual Orientation Choose not to disclose 2020 4:28 PM MIXER FOAM RUBBER documented as of this encounter Plan of [...] documented in this encounter Care Teams Sanitation Inspector Relationship Specialty Start Date End Date Denis Platt MD [address] [place] [address] PCP - General Family Medicine 01/14/22 07/18/23 documented as of this encounter
--- OUTSIDE RECORDS SUMMARY | 2024-10-22 00:54 | XMS_ITS | Encounter Summary ---
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 Social History Tobacco Use Types Packs/Day Years Used Date Smoking Tobacco: Former Cigarettes Q uit: 09/28/1978 Smokeless Tobacco: Never Alcohol Use Standard Drinks/Week Comments Yes 0 (1 standard drink = 0.6 oz pur e alcohol) Comments Unknown Sex and Gender Information Value Date Recorded Sex Assigned at Not on file Legal Sex Female 8:30 AM ACCOUNTING MACHINE SERVICER Gender Identity Female 10/06/2021 4:28 PM ACCOUNTING MACHINE SERVICER Sexual Orientation Choose not to disclose 2020 4:28 PM ACCOUNTING MACHINE SERVICER documented as of this encounter Plan of [...] Diagnosis Atrial fibrillation, unspecified type (HCC)- Primary [facility] 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 documented in this encounter Care Teams Food Storeroom Clerk Relationship Specialty Start Date End Date Denis Platt MD [address] [place] [address] PCP - General Family Medicine 01/14/22 07/18/23 documented as of this encounter
--- OUTSIDE RECORDS SUMMARY | 2024-10-22 00:54 | XMS_ITS | Encounter Summary ---
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 Social History Tobacco Use Types Packs/Day Years Used Date Smoking Tobacco: Former Cigarettes Q uit: 09/28/1978 Smokeless Tobacco: Never Alcohol Use Standard Drinks/Week Comments Yes 0 (1 standard drink = 0.6 oz pur e alcohol) Comments Unknown Sex and Gender Information Value Date Recorded Sex Assigned at Not on file Legal Sex Female 8:30 AM RESTAURANT CREW MEMBER Gender Identity Female 10/06/2021 4:28 PM RESTAURANT CREW MEMBER Sexual Orientation Choose not to disclose 2020 4:28 PM RESTAURANT CREW MEMBER documented as of this encounter Plan of [...] therapy documented in this encounter Care Teams Racking Technician Relationship Specialty Start Date End Date Denis Platt MD [address] [place] [address] PCP - General Family Medicine 01/14/22 07/18/23 documented as of this encounter
--- OUTSIDE RECORDS SUMMARY | 2024-10-22 00:54 | XMS_ITS | Encounter Summary ---
Author Organization [facility] Address [address] [place] [address] Care Team Providers Care Senior Java Engineer Name Role Phone Denis Platt MD Primary Care Provide r Reason for Visit * Reason Comments Aortic Stenosis Atrial Fibrillation 6 mo f/u Encounter Details Date Type Department Care Team (Latest Contact Info) Description 01/27/2023 11:30 AM CDT Office Visit [facility] Cardiology [address] [facility] [address] [place] [address] Andrade Brown MD [address] [address] Non-rheumatic aortic stenosis (Primary Dx); Paroxysmal 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 (CMS/HCC) (HCC); Essential hypertension; 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 goal <100; PAD (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) (HCC); 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; Weight loss Social History Tobacco Use Types Packs/Day Years Used Date Smoking Tobacco: Former Cigarettes Q uit: 09/28/1978 Smokeless Tobacco: Never Alcohol Use Standard Drinks/Week Comments Yes 0 (1 standard drink = 0.6 oz pur e alcohol) Comments Unknown Sex and Gender Information Value Date Recorded Sex Assigned at Not on file Legal Sex Female 8:30 AM MEDIA/INSTRUCTIONAL DESIGNER Gender Identity Female 10/06/2021 4:28 PM MEDIA/INSTRUCTIONAL DESIGNER Sexual Orientation Choose not to disclose 2020 4:28 PM MEDIA/INSTRUCTIONAL DESIGNER documented as of this encounter Last [...] PVI ablation x2 with recent success 3. long-term (current) use of anticoagulants [Z79.01] No bleeding [...] clinically indicated. 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
--- OUTSIDE RECORDS SUMMARY | 2024-10-22 00:54 | XMS_ITS | Encounter Summary ---
Author Organization [facility] Address [address] [place] [address] Care Team Providers Care Customer Experience Manager Name Role Phone Denis Platt MD Primary Care Provide r Encounter Details Date Type Department Care Team (Late st Contact Info) Description 04/24/2022 Telephone [facility] Cardiology [address] [facility] [address] [facility] [address] [place] [address] Andrade Brown MD [facility] [place] [phone] Social History Tobacco Use Types Packs/Day Years Used Date Smoking Tobacco: Former Cigarettes Q uit: 09/28/1978 Smokeless Tobacco: Never Alcohol Use Standard Drinks/Week Comments Yes 0 (1 standard drink = 0.6 oz pur e alcohol) Comments Unknown Sex and Gender Information Value Date Recorded Sex Assigned at Not on file Legal Sex Female 8:30 AM TECHNICAL MANAGER CHEMICAL PLANT Gender Identity Female 10/06/2021 4:28 PM TECHNICAL MANAGER CHEMICAL PLANT Sexual Orientation Choose not to disclose 2020 4:28 PM TECHNICAL MANAGER CHEMICAL PLANT documented as of this encounter Miscellaneous Notes [...] INR results from 04/05 and 04/24 to 6170,Thank you Contact:[phone] documented in this encounter Plan of Treatment Not on file documented as of this encounter Visit Diagnoses Not on filedocumented in this encounter Care Teams Customer Experience Manager Relationship Specialty Start Date End Date Denis Platt MD [address] [place] [address] PCP - General Family Medicine 01/14/22 07/18/23 documented as of this encounter
--- OUTSIDE RECORDS SUMMARY | 2024-10-22 00:54 | XMS_ITS | Encounter Summary ---
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 Procedures XR Hip Left 2 or 3 Views Herber Knott MD Phone: tel: [facility] Referral ID Status Reason Start Date Expiration Date Visits Re quested Visits Authorized [id number] Closed 05/21/2022 06/20/2023 1 1 Encounter Details Date Type Department Care Team (Latest Contact Info) Description 05/21/2022 7:45 AM CDT - 05/21/2022 11:59 PM CDT Hospital Encounter [facility] Orthopedics and Sports Medicine [address] [place] [address] [place] [phone] Discharge Disposition: Discharge to home or self care Social History Tobacco Use Types Packs/Day Years Used Date Smoking Tobacco: Former Cigarettes Q uit: 09/28/1978 Smokeless Tobacco: Never Alcohol Use Standard Drinks/Week Comments Yes 0 (1 standard drink = 0.6 oz pur e alcohol) Comments Unknown Sex and Gender Information Value Date Recorded Sex Assigned at Not on file Legal Sex Female 8:30 AM ASSEMBLER LEATHER GOODS Gender Identity Female 10/06/2021 4:28 PM ASSEMBLER LEATHER GOODS Sexual Orientation Choose not to disclose 2020 4:28 PM ASSEMBLER LEATHER GOODS documented as of this encounter Medications at [...] on filedocumented in this encounter Care Teams Semiconductor Testing Group Leader Relationship Specialty Start Date End Date Denis Platt MD [address] [place] [address] PCP - General Family Medicine 01/14/22 07/18/23 documented as of this encounter
--- OUTSIDE RECORDS SUMMARY | 2024-10-22 00:54 | XMS_ITS | Encounter Summary ---
Author Organization [facility] Address [address] [place] [address] Care Team Providers Care Scoring Machine Operator Name Role Phone Denis Platt MD Primary Care Provide r Encounter Details Date Type Department Care Team (Late st Contact Info) Description 09/10/2022 Telephone [facility] Cardiology [address] [facility] [address] [place] [address] Andrade Brown MD [facility] [place] [id number] Social History Tobacco Use Types Packs/Day Years Used Date Smoking Tobacco: Former Cigarettes Q uit: 09/28/1978 Smokeless Tobacco: Never Alcohol Use Standard Drinks/Week Comments Yes 0 (1 standard drink = 0.6 oz pur e alcohol) Comments Unknown Sex and Gender Information Value Date Recorded Sex Assigned at Not on file Legal Sex Female 8:30 AM BUSINESS INTELLIGENCE ENGINEER Gender Identity Female 10/06/2021 4:28 PM BUSINESS INTELLIGENCE ENGINEER Sexual Orientation Choose not to disclose 2020 4:28 PM BUSINESS INTELLIGENCE ENGINEER documented as of this encounter Miscellaneous Notes * Telephone Encounter - Jacque Hitchcock RN - 09/10/2022 11:24 AM BUSINESS INTELLIGENCE ENGINEER Called and spoke with pt, pt agreed to go to ER. Pt will go to [facility]. Called [facility], spoke with Olivia SETH to make aware. MAF aware. NESS INTELLIGENCE ENGINEER * Telephone Encounter - Elif Christina - 09/10/2022 11:05 AM CST Elizabeth called from [facility] to report a critical INR result. They repeated it as requested. Pt still refusing to go to ER. Pt states she is going home to take a nap. INR- 12.7 Contact: NESS INTELLIGENCE ENGINEER NESS INTELLIGENCE ENGINEER * Telephone Encounter - Jacque Hitchcock RN - 09/10/2022 9:38 AM BUSINESS INTELLIGENCE ENGINEER [facility] result of 12.2. Spoke [...] STAT. Pt agrees. Will await repeat INR. NESS INTELLIGENCE ENGINEER NESS INTELLIGENCE ENGINEER documented in this encounter Plan of Treatment Not on file documented as of this encounter Visit Diagnoses Not on filedocumented in this encounter Care Teams Scoring Machine Operator Relationship Specialty Start Date End Date Denis Platt MD [address] [place] [address] PCP - General Family Medicine 01/14/22 07/18/23 documented as of this encounter
--- OUTSIDE RECORDS SUMMARY | 2024-10-22 00:54 | XMS_ITS | Encounter Summary ---
Author Organization [facility] Address [address] [place] [address] Care Team Providers Care Manager Hair Name Role Phone Denis Platt MD Primary Care Provide r Encounter Details Date Type Department Care Team (Late st Contact Info) Description 03/27/2022 Documentation [facility] Orthopedics and Sports Medicine [address] [place] [address] [address] [place] [phone] Lilly Moncada MA Social History Tobacco Use Types Packs/Day Years Used Date Smoking Tobacco: Former Cigarettes Q uit: 09/28/1978 Smokeless Tobacco: Never Alcohol Use Standard Drinks/Week Comments Yes 0 (1 standard drink = 0.6 oz pur e alcohol) Comments Unknown Sex and Gender Information Value Date Recorded Sex Assigned at Not on file Legal Sex Female 8:30 AM SATELLITE COMMUNICATIONS ENGINEER Gender Identity Female 10/06/2021 4:28 PM SATELLITE COMMUNICATIONS ENGINEER Sexual Orientation Choose not to disclose 2020 4:28 PM SATELLITE COMMUNICATIONS ENGINEER documented as of this encounter Progress Notes * Lilly Moncada MA - 03/27/2022 10:24 AM CDT Patient is cleared for LTHA on 04/07/[address] Platt and Dr. Brown documented in this encounter Plan of Treatment Not on file documented as of this encounter Visit Diagnoses Not on filedocumented in this encounter Care Teams Manager Hair Relationship Specialty Start Date End Date Denis Platt MD [address] [place] [address] PCP - General Family Medicine 01/14/22 07/18/23 documented as of this encounter
--- OUTSIDE RECORDS SUMMARY | 2024-10-22 00:54 | XMS_ITS | Encounter Summary ---
Author Organization [facility] Address [address] [place] [address] Care Team Providers Care Resident Care Manager Rn Name Role Phone Denis Platt MD Primary Care Provide r Encounter Details Date Type Department Care Team (Late st Contact Info) Description 01/20/2023 Telephone [facility] Cardiology [address] [facility] [address] [place] [address] Andrade Brown MD [facility] [place] [phone] Social History Tobacco Use Types Packs/Day Years Used Date Smoking Tobacco: Former Cigarettes Q uit: 09/28/1978 Smokeless Tobacco: Never Alcohol Use Standard Drinks/Week Comments Yes 0 (1 standard drink = 0.6 oz pur e alcohol) Comments Unknown Sex and Gender Information Value Date Recorded Sex Assigned at Not on file Legal Sex Female 8:30 AM SECURITY SERVICES MANAGER Gender Identity Female 10/06/2021 4:28 PM SECURITY SERVICES MANAGER Sexual Orientation Choose not to disclose 2020 4:28 PM SECURITY SERVICES MANAGER documented as of this encounter Miscellaneous Notes * Telephone Encounter - Jacque Hitchcock RN - 01/25/2023 3:31 PM CDT Standing order for INR faxed to [facility] as requested. * Telephone Encounter - Rachel [...] Lab Routine Atrial fibrillation, unspecified type (HCC) senior care 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 52 Occurrences starting 01/25/2023 until 01/26/2024 documented as of this encounter Visit Diagnoses Diagnosis Atrial fibrillation, unspecified type (HCC)- Primary senior care 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 documented in this encounter Care Teams Resident Care Manager Rn Relationship Specialty Start Date End Date Denis Platt MD [address] [place] [address] PCP - General Family Medicine 01/14/22 07/18/23 documented as of this encounter
--- OUTSIDE RECORDS SUMMARY | 2024-10-22 00:54 | XMS_ITS | Encounter Summary ---
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 Social History Tobacco Use Types Packs/Day Years Used Date Smoking Tobacco: Former Cigarettes Q uit: 09/28/1978 Smokeless Tobacco: Never Alcohol Use Standard Drinks/Week Comments Yes 0 (1 standard drink = 0.6 oz pur e alcohol) Comments Unknown Sex and Gender Information Value Date Recorded Sex Assigned at Not on file Legal Sex Female 8:30 AM ALUMINUM SHEET CUTTER Gender Identity Female 10/06/2021 4:28 PM ALUMINUM SHEET CUTTER Sexual Orientation Choose not to disclose 2020 4:28 PM ALUMINUM SHEET CUTTER documented as of this encounter Plan of Treatment Not on file documented as of this encounter Visit Diagnoses Diagnosis Atrial fibrillation, unspecified type (HCC)- Primary 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
--- OUTSIDE RECORDS SUMMARY | 2024-10-22 00:54 | XMS_ITS | Encounter Summary ---
Author Organization [facility] Address [address] [place] [address] Care Team Providers Care Lining Cleaner Name Role Phone Denis Platt MD Primary Care Provide r Encounter Details Date Type Department Care Team (Late st Contact Info) Description 03/25/2022 Orders Only [facility] Orthopedics and Sports Medicine [address] [place] [address] Herber Knott MD [address] [place] [address] [address] [place], [place] [id number] Social History Tobacco Use Types Packs/Day Years Used Date Smoking Tobacco: Former Cigarettes Q uit: 09/28/1978 Smokeless Tobacco: Never Alcohol Use Standard Drinks/Week Comments Yes 0 (1 standard drink = 0.6 oz pur e alcohol) Comments Unknown Sex and Gender Information Value Date Recorded Sex Assigned at Not on file Legal Sex Female 8:30 AM ADJUNCT PROFESSOR OF ENGLISH Gender Identity Female 10/06/2021 4:28 PM ADJUNCT PROFESSOR OF ENGLISH Sexual Orientation Choose not to disclose 2020 4:28 PM ADJUNCT PROFESSOR OF ENGLISH documented as of this encounter Ordered Prescriptions [...] on filedocumented in this encounter Care Teams Lining Cleaner Relationship Specialty Start Date End Date Denis Platt MD [address] [place], [place] [phone] PCP - General Family Medicine 01/14/22 07/18/23 documented as of this encounter
--- OUTSIDE RECORDS SUMMARY | 2024-10-22 00:54 | XMS_ITS | Encounter Summary ---
Author Organization [facility] Address [address] [place] [address] Care Team Providers Care Captain Room Service Name Role Phone Denis Platt MD Primary Care Provide r Encounter Details Date Type Department Care Team (Latest Contact Info) Description 01/27/[address] 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 Social History Tobacco Use Types Packs/Day Years Used Date Smoking Tobacco: Former Cigarettes Q uit: 09/28/1978 Smokeless Tobacco: Never Alcohol Use Standard Drinks/Week Comments Yes 0 (1 standard drink = 0.6 oz pur e alcohol) Comments Unknown Sex and Gender Information Value Date Recorded Sex Assigned at Not on file Legal Sex Female 8:30 AM POCKET MARKER Gender Identity Female 10/06/2021 4:28 PM POCKET MARKER Sexual Orientation Choose not to disclose 2020 4:28 PM POCKET MARKER documented as of this encounter Plan [...] Diagnosis Atrial fibrillation, unspecified type (HCC)- Primary jail 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 documented in this encounter Care Teams Captain Room Service Relationship Specialty Start Date End Date Denis Platt MD [address] [place] [address] PCP - General Family Medicine 01/14/22 07/18/23 documented as of this encounter
--- OUTSIDE RECORDS SUMMARY | 2024-10-22 00:54 | XMS_ITS | Encounter Summary ---
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 Procedures XR Hip Left 2 or 3 Views Herber Knott MD [address] [place] [address] [address], [place] [address] Phone: tel: [facility] Referral ID Status Reason Start Date Expiration Date Visits Re quested Visits Authorized [id number] Closed 04/15/2023 04/15/2023 1 1 Encounter Details Date Type Department Care Team (Latest Contact Info) Description 04/15/2023 7:43 AM CDT - 04/15/2023 11:59 PM CDT Hospital Encounter [facility] Orthopedics and Sports Medicine [address] [facility] [address] [place] [id number] Discharge Disposition: Discharge to home or self care Social History Tobacco Use Types Packs/Day Years Used Date Smoking Tobacco: Former Cigarettes Q uit: 09/28/1978 Smokeless Tobacco: Never Alcohol Use Standard Drinks/Week Comments Yes 0 (1 standard drink = 0.6 oz pur e alcohol) Comments Unknown Sex and Gender Information Value Date Recorded Sex Assigned at Not on file Legal Sex Female 8:30 AM TRAFFIC CHECKER Gender Identity Female 10/06/2021 4:28 PM TRAFFIC CHECKER Sexual Orientation Choose not to disclose 2020 4:28 PM TRAFFIC CHECKER documented as of this encounter Medications at [...] position with advanced right hip osteoarthritis with czcs-nd-jyej contact, osteophyte formation, subluxation. us Herber Knott MD IMG XR PROCEDURES Final Result documented in this encounter Visit Diagnoses Not on filedocumented in this encounter Care Teams Lead Radiation Therapist Relationship Specialty Start Date End Date Denis Platt MD [address] [place] [address] PCP - General Family Medicine 01/14/22 07/18/23 documented as of this encounter
--- OUTSIDE RECORDS SUMMARY | 2024-10-22 00:54 | XMS_ITS | Encounter Summary ---
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 Social History Tobacco Use Types Packs/Day Years Used Date Smoking Tobacco: Former Cigarettes Q uit: 09/28/1978 Smokeless Tobacco: Never Alcohol Use Standard Drinks/Week Comments Yes 0 (1 standard drink = 0.6 oz pur e alcohol) Comments Unknown Sex and Gender Information Value Date Recorded Sex Assigned at Not on file Legal Sex Female 8:30 AM ASSISTANT FARM OPERATIONS MANAGER Gender Identity Female 10/06/2021 4:28 PM ASSISTANT FARM OPERATIONS MANAGER Sexual Orientation Choose not to disclose 2020 4:28 PM ASSISTANT FARM OPERATIONS MANAGER documented as of this encounter [...] therapy documented in this encounter Care Teams Foreign Clerk Relationship Specialty Start Date End Date Denis Platt MD [address] [place] [address] PCP - General Family Medicine 01/14/22 07/18/23 documented as of this encounter
--- OUTSIDE RECORDS SUMMARY | 2024-10-22 00:54 | XMS_ITS | Encounter Summary ---
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 Social History Tobacco Use Types Packs/Day Years Used Date Smoking Tobacco: Former Cigarettes Q uit: 09/28/1978 Smokeless Tobacco: Never Alcohol Use Standard Drinks/Week Comments Yes 0 (1 standard drink = 0.6 oz pur e alcohol) Comments Unknown Sex and Gender Information Value Date Recorded Sex Assigned at Not on file Legal Sex Female 8:30 AM MOVIE STUNT PERFORMER Gender Identity Female 10/06/2021 4:28 PM MOVIE STUNT PERFORMER Sexual Orientation Choose not to disclose 2020 4:28 PM MOVIE STUNT PERFORMER documented as of this encounter Plan of [...] Atrial fibrillation, unspecified type (HCC)- Primary 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
--- OUTSIDE RECORDS SUMMARY | 2024-10-22 00:54 | XMS_ITS | Encounter Summary ---
Author Organization [facility] Address [address] [place] [address] Care Team Providers Care Snuff Container Inspector Name Role Phone Denis Platt MD Primary Care Provide r Encounter Details Date Type Department Care Team (Late st Contact Info) Description 04/14/2022 Telephone [facility] Orthopedics and Sports Medicine 4 [facility] [address] [place] [address] Herber Knott MD [address] [place] [address] [address] [place] [address] Social History Tobacco Use Types Packs/Day Years Used Date Smoking Tobacco: Former Cigarettes Q uit: 09/28/1978 Smokeless Tobacco: Never Alcohol Use Standard Drinks/Week Comments Yes 0 (1 standard drink = 0.6 oz pur e alcohol) Comments Unknown Sex and Gender Information Value Date Recorded Sex Assigned at Not on file Legal Sex Female 8:30 AM COMMUNICATIONS AND SIGNALS SUPERVISOR Gender Identity Female 10/06/2021 4:28 PM COMMUNICATIONS AND SIGNALS SUPERVISOR Sexual Orientation Choose not to disclose 2020 4:28 PM COMMUNICATIONS AND SIGNALS SUPERVISOR documented as of this encounter Miscellaneous Notes * Telephone Encounter - Stephanie Saldaña - 04/14/2022 10:48 AM CDT Padmini with [facility] called stating they still need the op note documented. documented in this encounter Plan of Treatment Not on file documented as of this encounter Visit Diagnoses Not on filedocumented in this encounter Care Teams Snuff Container Inspector Relationship Specialty Start Date End Date Denis Platt MD [address] [place] [address] PCP - General Family Medicine 01/14/22 07/18/23 documented as of this encounter
--- OUTSIDE RECORDS SUMMARY | 2024-10-22 00:54 | XMS_ITS | Encounter Summary ---
Author Organization [facility] Address [address] [place] [address] Care Team Providers Care Stonecutter Apprentice Hand Name Role Phone Denis Platt MD Primary Care Provide r Encounter Details Date Type Department Care Team (Late st Contact Info) Description 01/26/2023 Telephone [facility] Cardiology [address] [place] [address] Andrade Brown MD [facility] [place] [id number] Social History Tobacco Use Types Packs/Day Years Used Date Smoking Tobacco: Former Cigarettes Q uit: 09/28/1978 Smokeless Tobacco: Never Alcohol Use Standard Drinks/Week Comments Yes 0 (1 standard drink = 0.6 oz pur e alcohol) Comments Unknown Sex and Gender Information Value Date Recorded Sex Assigned at Not on file Legal Sex Female 8:30 AM SURFACE LOGGING SYSTEMS LOGGER Gender Identity Female 10/06/2021 4:28 PM SURFACE LOGGING SYSTEMS LOGGER Sexual Orientation Choose not to disclose 2020 4:28 PM SURFACE LOGGING SYSTEMS LOGGER documented as of this encounter Miscellaneous Notes * Telephone Encounter - Jacque Hitchcock RN - 01/26/2023 9:12 AM CDT Order faxed as requested. * Telephone Encounter - Elif Christina - 01/26/2023 8:45 AM CDT Alice called from [facility] requesting standing INR order be faxed. Contact: documented in this encounter Plan of Treatment Not on file documented as of this encounter Visit Diagnoses Not on filedocumented in this encounter Care Teams Stonecutter Apprentice Hand Relationship Specialty Start Date End Date Denis Platt MD [address] [place] [address] PCP - General Family Medicine 01/14/22 07/18/23 documented as of this encounter
--- OUTSIDE RECORDS SUMMARY | 2024-10-22 00:54 | XMS_ITS | Encounter Summary ---
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 Procedures XR Hip Left 2 or 3 Views Herber Knott MD [address] [place] [address] [address] [address] Phone: tel: [facility] Referral ID Status Reason Start Date Expiration Date Visits Re quested Visits Authorized [id number] Closed 04/15/2023 04/15/2023 1 1 Reason for Visit * Reason Comments Follow-up Encounter Details Date Type Department Care Team (Late st Contact Info) Description 04/15/2023 9:45 AM CDT Office Visit [facility] Orthopedics and Sports Medicine [address] [facility] [address] [address] Herber Knott MD [address] [facility] [place] [address] Aftercare following left hip joint [...] on file Legal Sex Female 8:30 AM SOFA COVER INSPECTOR Gender Identity Female 10/06/2021 4:28 PM SOFA COVER INSPECTOR Sexual Orientation Choose not to disclose 2020 4:28 PM SOFA COVER INSPECTOR documented as of this encounter Last [...] position with advanced right hip osteoarthritis with coxw-of-xqik contact, osteophyte formation, subluxation. Assessment/Plan Quin was [...] position with advanced right hip osteoarthritis with xlzi-wh-lwgi contact, osteophyte formation, subluxation. 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
--- OUTSIDE RECORDS SUMMARY | 2024-10-22 00:54 | XMS_ITS | Encounter Summary ---
Author Organization [facility] Address [address] [address] Care Team Providers Care Digital Community Manager Name Role Phone Denis Platt MD Primary Care Provide r Encounter Details Date Type Department Care Team (Late st Contact Info) Description 03/25/2022 Orders Only [facility] Orthopedics and Sports Medicine [address] [facility] [address] [place] [address] Herber Knott MD [address] [place] [address] [address] [place], [place] [id number] Primary osteoarthritis of left hip (Primary Dx); [...] file Legal Sex Female 8:30 AM HUMAN SERVICES ASSISTANT Gender Identity Female 10/06/2021 4:28 PM HUMAN SERVICES ASSISTANT Sexual Orientation Choose not to disclose 2020 4:28 PM HUMAN SERVICES ASSISTANT documented as of this encounter Plan [...] examination documented in this encounter Care Teams Digital Community Manager Relationship Specialty Start Date End Date Denis Platt MD [address] [place] [address] PCP - General Family Medicine 01/14/22 07/18/23 documented as of this encounter
--- OUTSIDE RECORDS SUMMARY | 2024-10-22 00:54 | XMS_ITS | Encounter Summary ---
Author Organization [facility] Address [address] [address] Care Team Providers Care Traffic Inspector Name Role Phone Denis Platt MD Primary Care Provide r Reason for Referral * Procedure (Routine) - Closed Specialty Diagnoses / Procedures Referred By Contac t Referred To Contact Diagnoses Primary osteoarthritis of right knee Procedures Large Joint (Hip, Knee, Shoulder) Injection: R knee Ann Marie Puri PA Phone: tel: fax: [facility] Referral ID Status Reason Start Date Expiration Date Visits Re quested Visits Authorized [id number] Closed 04/05/2023 04/05/2023 1 1 * Diagnostic Imaging (Routine) - Closed Specialty Diagnoses / Procedures Referred By Contac t Referred To Contact Diagnoses Primary osteoarthritis of right knee Procedures XR Hip Right 2 or 3 Views Ann Marie Puri PA Phone: tel: fax: [facility] Referral ID Status Reason Start Date Expiration Date Visits Re quested Visits Authorized [id number] Closed 04/02/2023 04/02/2023 1 1 Reason for Visit * Reason Comments Pain Encounter Details Date Type Department Care Team (Late st Contact Info) Description 04/02/2023 3:15 PM CDT Office Visit [facility] Orthopedics and Sports Medicine [address] [facility] [address] [place] [address] Ann Marie Puri PA [address] [place] [address] [address] [place] [address] Primary osteoarthritis of right knee (Primary Dx); [...] on file Legal Sex Female 8:30 AM MEDICAID ANALYST Gender Identity Female 10/06/2021 4:28 PM MEDICAID ANALYST Sexual Orientation Choose not to disclose 2020 4:28 PM MEDICAID ANALYST documented as of this encounter Last Filed [...] fluoro guided injection to be done at [facility], but the patient would tend to see [...] PM CDT Primary osteoarthritis of right knee UT ARTHROCENTESIS ASPIR&/INJ MAJOR JT/BURSA W/O US Routine [...] IMG XR PROCEDURES Final Resu lt * UT ARTHROCENTESIS ASPIR&/INJ MAJOR JT/BURSA W/O US (04/02/2023 [...] Knee documented in this encounter Care Teams Traffic Inspector Relationship Specialty Start Date End Date Denis Platt MD [address] [place] [address] PCP - General Family Medicine 01/14/22 07/18/23 documented as of this encounter
--- OUTSIDE RECORDS SUMMARY | 2024-10-22 00:54 | XMS_ITS | Encounter Summary ---
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 Social History Tobacco Use Types Packs/Day Years Used Date Smoking Tobacco: Former Cigarettes Q uit: 09/28/1978 Smokeless Tobacco: Never Alcohol Use Standard Drinks/Week Comments Yes 0 (1 standard drink = 0.6 oz pur e alcohol) Comments Unknown Sex and Gender Information Value Date Recorded Sex Assigned at Not on file Legal Sex Female 8:30 AM REHABILITATION COORDINATOR Gender Identity Female 10/06/2021 4:28 PM REHABILITATION COORDINATOR Sexual Orientation Choose not to disclose 2020 4:28 PM REHABILITATION COORDINATOR documented as of this encounter Plan of [...] in this encounter Care Teams Field Crop I Farmworker Relationship Specialty Start Date End Date Denis Platt MD [address] [place] [address] PCP - General Family Medicine 01/14/22 07/18/23 documented as of this encounter
--- OUTSIDE RECORDS SUMMARY | 2024-10-22 00:54 | XMS_ITS | Encounter Summary ---
Author Organization [facility] Medical [facility] Address [address] [place] [address] Care Team Providers Care Electro Mechanical Designer Name Role Phone Denis Platt MD Primary Care Provide r Reason for Visit * Reason Comments Follow-up 6 mo f/u Atrial Fibrillation Non-rheumatic aortic stenosis Encounter Details Date Type Department Care Team (Latest Contact Info) Description 07/22/2022 10:30 AM CDT Office Visit [facility] Cardiology [address] [place] [address] Andrade Brown MD [facility] [address] PAD (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/HCC) (HCC) (Primary Dx); 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 goal <100; salvage determiner 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; Non-rheumatic aortic [...] on file Legal Sex Female 8:30 AM BOAT DRIVER Gender Identity Female 10/06/2021 4:28 PM BOAT DRIVER Sexual Orientation Choose not to disclose 2020 4:28 PM BOAT DRIVER documented as of this encounter Last [...] PVI ablation x2 with recent success 3. salvage determiner (current) use of anticoagulants [Z79.01] No bleeding [...] clinically indicated. Low-salt diet Andrade Brown MD, [facility] documented in this encounter Plan of Treatment Not on file documented as of this encounter Visit Diagnoses Diagnosis PAD (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) (HCC)- Primary Unspecified peripheral vascular disease 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 goal <100 Other and unspecified hyperlipidemia salvage determiner 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 Non-rheumatic aortic stenosis Essential hypertension Unspecified essential hypertension documented in this encounter Care Teams Electro Mechanical Designer Relationship Specialty Start Date End Date Denis Platt MD [address] [place] [address] PCP - General Family Medicine 01/14/22 07/18/23 documented as of this encounter
--- OUTSIDE RECORDS SUMMARY | 2024-10-22 00:54 | XMS_ITS | Encounter Summary ---
Author Organization 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 Orthopedics and Sports Medicine [address] [facility] [address] [place] [address] Herber Knott MD [address] [place] [address] [address] [place] [address] Aftercare following left hip joint [...] on file Legal Sex Female 8:30 AM FACTORY MAINTENANCE MANAGER Gender Identity Female 10/06/2021 4:28 PM FACTORY MAINTENANCE MANAGER Sexual Orientation Choose not to disclose 2020 4:28 PM FACTORY MAINTENANCE MANAGER documented as of this encounter Last [...] joint documented in this encounter Care Teams Digital Strategist Relationship Specialty Start Date End Date Denis Platt MD [address] [place] [address] PCP - General Family Medicine 01/14/22 07/18/23 documented as of this encounter
--- OUTSIDE RECORDS SUMMARY | 2024-10-22 00:54 | XMS_ITS | Encounter Summary ---
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 Social History Tobacco Use Types Packs/Day Years Used Date Smoking Tobacco: Former Cigarettes Q uit: 09/28/1978 Smokeless Tobacco: Never Alcohol Use Standard Drinks/Week Comments Yes 0 (1 standard drink = 0.6 oz pur e alcohol) Comments Unknown Sex and Gender Information Value Date Recorded Sex Assigned at Not on file Legal Sex Female 8:30 AM ORTHOPEDIC PODIATRIST Gender Identity Female 10/06/2021 4:28 PM ORTHOPEDIC PODIATRIST Sexual Orientation Choose not to disclose 2020 4:28 PM ORTHOPEDIC PODIATRIST documented as of this encounter Plan of [...] Diagnosis Atrial fibrillation, unspecified type (HCC)- Primary [facility] 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 documented in this encounter Care Teams Head Lineman Relationship Specialty Start Date End Date Denis Platt MD [address] [place] [address] PCP - General Family Medicine 01/14/22 07/18/23 documented as of this encounter
--- OUTSIDE RECORDS SUMMARY | 2024-10-22 00:54 | XMS_ITS | Encounter Summary ---
Author Organization [facility] Address [address] [place] [address] Care Team Providers Care Gas Combustion Engineer Name Role Phone Denis Platt MD Primary Care Provide r Encounter Details Date Type Department Care Team (Late st Contact Info) Description 01/15/2023 Telephone [facility] Cardiology [address] [place] [address] Andrade Brown MD [facility] [place] [id number] Social History Tobacco Use Types Packs/Day Years Used Date Smoking Tobacco: Former Cigarettes Q uit: 09/28/1978 Smokeless Tobacco: Never Alcohol Use Standard Drinks/Week Comments Yes 0 (1 standard drink = 0.6 oz pur e alcohol) Comments Unknown Sex and Gender Information Value Date Recorded Sex Assigned at Not on file Legal Sex Female 8:30 AM MULTIMEDIA PROGRAMMER Gender Identity Female 10/06/2021 4:28 PM MULTIMEDIA PROGRAMMER Sexual Orientation Choose not to disclose 2020 4:28 PM MULTIMEDIA PROGRAMMER documented as of this encounter Miscellaneous Notes [...] been a re-occuring problem. Will forward to [facility] as FYI. Pt has an upcoming appt on 01/27. documented in this encounter Plan of Treatment Not on file documented as of this encounter Visit Diagnoses Not on filedocumented in this encounter Care Teams Gas Combustion Engineer Relationship Specialty Start Date End Date Denis Platt MD [address] [id number] PCP - General Family Medicine 01/14/22 07/18/23 documented as of this encounter
--- OUTSIDE RECORDS SUMMARY | 2024-10-22 00:55 | XMS_ITS | Encounter Summary ---
Author Organization [facility] Address [address] [place] [address] Care Team Providers Care Heavy Equipment Sales Manager Name Role Phone Devaughn Macias MD Primary Care Provider Encounter Details Date Type Department Care Team (Latest Contact Info) Description 06/05/2021 Anticoagulation Visit [facility] Cardiology [address] [place] [address] Jesica Estrada RN Atrial fibrillation, [...] on file Legal Sex Female 8:30 AM SALES PROMOTION COORDINATOR Gender Identity Female 10/06/2021 4:28 PM SALES PROMOTION COORDINATOR Sexual Orientation Choose not to disclose 2020 4:28 PM SALES PROMOTION COORDINATOR documented as of this encounter Plan [...] Atrial fibrillation, unspecified type (HCC)- Primary 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
--- OUTSIDE RECORDS SUMMARY | 2024-10-22 00:55 | XMS_ITS | Encounter Summary ---
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 Social History Tobacco Use Types Packs/Day Years Used Date Smoking Tobacco: Former Cigarettes Q uit: 09/28/1978 Smokeless Tobacco: Never Alcohol Use Standard Drinks/Week Comments Yes 0 (1 standard drink = 0.6 oz pur e alcohol) Comments Unknown Sex and Gender Information Value Date Recorded Sex Assigned at Not on file Legal Sex Female 8:30 AM CINDER PIT WORKER Gender Identity Female 10/06/2021 4:28 PM CINDER PIT WORKER Sexual Orientation Choose not to disclose 2020 4:28 PM CINDER PIT WORKER documented as of this encounter Plan [...] therapy documented in this encounter Care Teams High Pressure Cleaner Relationship Specialty Start Date End Date Denis Platt MD [address] [place] [address] PCP - General Family Medicine 01/14/22 07/18/23 documented as of this encounter
--- OUTSIDE RECORDS SUMMARY | 2024-10-22 00:55 | XMS_ITS | Encounter Summary ---
Author Organization [facility] Address [address] [place] [address] Care Team Providers Care Epic Willow Specialist Name Role Phone Devaughn Macias MD Primary Care Provider Encounter Details Date Type Department Care Team (Latest Contact Info) Description 08/28/2021 Anticoagulation Visit [facility] Cardiology [address] [place] [address] Jacque Hitchcock RN Atrial fibrillation, [...] on file Legal Sex Female 8:30 AM PRODUCTION CONTROL CLERK Gender Identity Female 10/06/2021 4:28 PM PRODUCTION CONTROL CLERK Sexual Orientation Choose not to disclose 2020 4:28 PM PRODUCTION CONTROL CLERK documented as of this encounter Plan of [...] therapy documented in this encounter Care Teams Epic Willow Specialist Relationship Specialty Start Date End Date Devaughn Macias MD PCP - General Family Medicine 01/31/20 01/13/22 documented as of this encounter
--- OUTSIDE RECORDS SUMMARY | 2024-10-22 00:55 | XMS_ITS | Encounter Summary ---
Author Organization [facility] Address [address] [address] Care Team Providers Care Palliative Care Physician Name Role Phone Devaughn Macias MD Primary Care Provider Reason for Referral * Procedure (Routine) - Closed Specialty Diagnoses / Procedures Referred By Contac t Referred To Contact Diagnoses Primary osteoarthritis of left knee Procedures Large Joint (Hip, Knee, Shoulder) Injection: L knee Victoria Madison PA [address] [address] Phone: tel: fax: [facility] Referral ID Status Reason Start Date Expiration Date Visits Re quested Visits Authorized [id number] Closed 10/30/2021 11/29/2022 1 1 LE WASHER MACHINE * Diagnostic Imaging (Routine) - Closed Specialty Diagnoses / Procedures Referred By Contac t Referred To Contact Diagnoses Left knee pain, unspecified chronicity Procedures XR Knee Left 4 or More Views Victoria Madison PA [address] [place] [address] [place] [address] Phone: tel: fax: Referral ID Status Reason Start Date Expiration Date Visits Re quested Visits Authorized [id number] Closed 10/30/2021 11/29/2022 1 1 LE WASHER MACHINE Reason for Visit * Reason Comments Pain Encounter Details Date Type Department Care Team (Late st Contact Info) Description 10/30/2021 9:00 AM BOTTLE WASHER MACHINE Office Visit [facility] Orthopedics and Sports Medicine [address] [place] [address] [address] [place] [phone] Victoria Madison PA [address] [place] [address] [address] [place] [address] Primary osteoarthritis of left knee (Primary Dx); [...] on file Legal Sex Female 8:30 AM BOTTLE WASHER MACHINE Gender Identity Female 10/06/2021 4:28 PM BOTTLE WASHER MACHINE Sexual Orientation Choose not to disclose 2020 4:28 PM BOTTLE WASHER MACHINE documented as of this encounter Last Filed Vital Signs Vital Sign Reading Time Taken Comments Blood Pressure 172/77 10/30/2021 8:52 AM BOTTLE WASHER MACHINE Pulse 56 10/30/2021 8:52 AM BOTTLE WASHER MACHINE Temperature - - Respiratory Rate - - Oxygen Saturation - - Inhaled Oxygen Concentration - - Weight 86.2 kg (190 lb) 10/30/2021 8:52 AM BOTTLE WASHER MACHINE Height 165.1 cm (5' 5 ) 10/30/2021 8:52 AM BOTTLE WASHER MACHINE Body Mass Index 31.62 10/30/2021 8:52 AM BOTTLE WASHER MACHINE documented in this encounter Progress Notes * Victorai Madison PA - 10/30/2021 9:00 AM CSTAssociated [...] Herber Knott MD at 11/04/2021 3:51 PM BOTTLE WASHER MACHINE LE WASHER MACHINE LE WASHER MACHINE documented in this encounter Plan of Treatment Not on file documented as of this encounter Procedures Procedure Name Priority Date/Time Associated Diagnosis Comments DC ARTHROCENTESIS ASPIR&/INJ MAJOR JT/BURSA W/O US Routine 10/30/2021 9:00 AM BOTTLE WASHER MACHINE Primary osteoarthritis of left knee XR KNEE LEFT 4 OR MORE VIEWS Schedule Routine, Read Routine (OP Routine) 10/30/2021 8:49 AM BOTTLE WASHER MACHINE Primary osteoarthritis of left knee documented in this encounter Results * DC ARTHROCENTESIS ASPIR&/INJ MAJOR JT/BURSA W/O US (10/30/2021 9:00 AM BOTTLE WASHER MACHINE) Narrative Herber Knott MD - 10/30/2021 9:00 AM BOTTLE WASHER MACHINE Victoria Madison PA ? 10/30/2021 ??9:44 AM [...] 4 or More Views (10/30/2021 8:49 AM BOTTLE WASHER MACHINE) Anatomical Region Laterality Modality Lower Extremities, Knee Left Digital Radiography Narrative 10/30/2021 9:37 AM BOTTLE WASHER MACHINE Radiographs taken of the left knee today [...] of Local Anesthesia Given 10/30/2021 9:44 AM BOTTLE WASHER MACHINE 3 mL triamcinolone (KENALOG) 40 mg/mL injection 40 mg 40 mg, intra-articular, One-Time Injection, Starting on Lisbeth 10/30/21 at 0944, For 1 doseIndications:Primary osteoarthritis of left knee Given 10/30/2021 9:44 AM BOTTLE WASHER MACHINE 40 mg documented in this encounter Care Teams Palliative Care Physician Relationship Specialty Start Date End Date Devaughn Macias MD PCP - General Family Medicine 01/31/20 01/13/22 documented as of this encounter
--- OUTSIDE RECORDS SUMMARY | 2024-10-22 00:55 | XMS_ITS | Encounter Summary ---
Author Organization [facility] Address [address] [place] [address] Care Team Providers Care Loan Interviewer Mortgage Name Role Phone Devaughn Macias MD Primary Care Provider Encounter Details Date Type Department Care Team (Late st Contact Info) Description 10/16/2021 Telephone [facility] Cardiology [address] [place] [address] Andrade Brown MD [facility] [place] [id number] Social History Tobacco Use Types Packs/Day Years Used Date Smoking Tobacco: Former Cigarettes Q uit: 09/28/1978 Smokeless Tobacco: Never Alcohol Use Standard Drinks/Week Comments Yes 0 (1 standard drink = 0.6 oz pur e alcohol) Comments Unknown Sex and Gender Information Value Date Recorded Sex Assigned at Not on file Legal Sex Female 8:30 AM B2B APPOINTMENT SETTER Gender Identity Female 10/06/2021 4:28 PM B2B APPOINTMENT SETTER Sexual Orientation Choose not to disclose 2020 4:28 PM B2B APPOINTMENT SETTER documented as of this encounter Miscellaneous Notes * Telephone Encounter - Rosy White RN - 10/16/2021 1:32 PM CST No significant carotid disease bilateral. Spoke w/ pt and reviewed results above per MAF. Pt verbalized understanding. KK/VW B2B APPOINTMENT SETTER documented in this encounter Plan of Treatment Not on file documented as of this encounter Visit Diagnoses Not on filedocumented in this encounter Care Teams Loan Interviewer Mortgage Relationship Specialty Start Date End Date Devaughn Macias MD PCP - General Family Medicine 01/31/20 01/13/22 documented as of this encounter
--- OUTSIDE RECORDS SUMMARY | 2024-10-22 00:55 | XMS_ITS | Encounter Summary ---
Author Organization [facility] Address [address] [place] [address] Care Team Providers Care Ortho Tech Name Role Phone Denis Platt MD Primary Care Provide r Encounter Details Date Type Department Care Team (Late st Contact Info) Description 01/15/2022 Telephone [facility] Orthopedics and Sports Medicine [address] [facility] [address] [place] [address] Herebr Knott MD [address] [place] [address] [address] [place] [address] Social History Tobacco Use Types Packs/Day Years Used Date Smoking Tobacco: Former Cigarettes Q uit: 09/28/1978 Smokeless Tobacco: Never Alcohol Use Standard Drinks/Week Comments Yes 0 (1 standard drink = 0.6 oz pur e alcohol) Comments Unknown Sex and Gender Information Value Date Recorded Sex Assigned at Not on file Legal Sex Female 8:30 AM SUMMER CAMP COUNSELOR Gender Identity Female 10/06/2021 4:28 PM SUMMER CAMP COUNSELOR Sexual Orientation Choose not to disclose 2020 4:28 PM SUMMER CAMP COUNSELOR documented as of this encounter Miscellaneous Notes [...] on filedocumented in this encounter Care Teams Ortho Tech Relationship Specialty Start Date End Date Denis Platt MD [address] [place] [address] PCP - General Family Medicine 01/14/22 07/18/23 documented as of this encounter
--- OUTSIDE RECORDS SUMMARY | 2024-10-22 00:55 | XMS_ITS | Encounter Summary ---
Author Organization [facility] Address [address] [place] [address] Care Team Providers Care Neurology Physician Name Role Phone Denis Platt MD Primary Care Provide r Reason for Visit * Reason Comments Atrial Fibrillation Peripheral Artery Disease Hypertension Aortic Stenosis 5 mo f/u Encounter Details Date Type Department Care Team (Latest Contact Info) Description 01/14/2022 11:30 AM CDT Office Visit [facility] Cardiology [address] [facility] [address] [place] [address] Andrade Brown MD [facility] [address] Non-rheumatic aortic stenosis (Primary Dx); senior living 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; 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 [...] on file Legal Sex Female 8:30 AM FISHING ROD MECHANIC Gender Identity Female 10/06/2021 4:28 PM FISHING ROD MECHANIC Sexual Orientation Choose not to disclose 2020 4:28 PM FISHING ROD MECHANIC documented as of this encounter Last Filed [...] PVI ablation x2 with recent success 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 PAD (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/HCC) Mild femoral disease 5. 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 goal <100 6. HTN (hypertension), benign At goal 7.. Mild carotid artery disease 8. Non-rheumatic aortic stenosis Mild: Asymptomatic PLAN/RECOMMENDATIONS EKG today because of her atrial fibrillation history Standing order for INR to be sent to [place] She will likely need a stress test [...] clinically indicated. Low-salt diet Andrade Brown MD, [facility] documented in this encounter Miscellaneous Notes * [...] Visit Diagnoses Diagnosis Non-rheumatic aortic stenosis- Primary senior living 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 goal <100 Other and unspecified hyperlipidemia Essential hypertension Unspecified essential hypertension documented in this encounter Care Teams Neurology Physician Relationship Specialty Start Date End Date Denis Platt MD [address] [place], [place] [phone] PCP - General Family Medicine 01/14/22 07/18/23 documented as of this encounter
--- OUTSIDE RECORDS SUMMARY | 2024-10-22 00:55 | XMS_ITS | Encounter Summary ---
Author Organization [facility] Address [address] [place] [address] Care Team Providers Care Whey Department Operator Name Role Phone Devaughn Macias MD Primary Care Provider Denis Platt MD Primary Care Provide r Gideon Campbell MD Primary Care Provider [phone] Encounter Details Date Type Department Care Team (Late st Contact Info) Description 10/17/2021 Telephone [facility] [address] [place] [address] Katie Hendrix, DORINDA Social History Tobacco Use Types Packs/Day Years Used Date Smoking Tobacco: Former Cigarettes Q uit: 09/28/1978 Smokeless Tobacco: Never Alcohol Use Standard Drinks/Week Comments Yes 0 (1 standard drink = 0.6 oz pur e alcohol) Comments Unknown Sex and Gender Information Value Date Recorded Sex Assigned at Not on file Legal Sex Female 8:30 AM SIGNAL INTEGRITY ENGINEER Gender Identity Female 10/06/2021 4:28 PM SIGNAL INTEGRITY ENGINEER Sexual Orientation Choose not to disclose 2020 4:28 PM SIGNAL INTEGRITY ENGINEER documented as of this encounter Plan of Treatment Not on file documented as of this encounter Visit Diagnoses Not on filedocumented in this encounter Care Teams Whey Department Operator Relationship Specialty Start Date End Date Devaughn Macias MD PCP - General Family Medicine 01/31/20 01/13/22 Denis Platt MD [address] [place] [address] PCP - General Family Medicine 01/14/22 07/18/23 Gideon Campbell MD [address] [facility] [address] [address] PCP - General Family Medicine 07/19/23 documented as of this encounter
--- OUTSIDE RECORDS SUMMARY | 2024-10-22 00:55 | XMS_ITS | Encounter Summary ---
Author Organization [facility] Address [address] [place] [address] Care Team Providers Care Concrete Pipe Plant Supervisor Name Role Phone Devaughn Macias MD Primary Care Provider Encounter Details Date Type Department Care Team (Late st Contact Info) Description 10/20/2021 Telephone [facility] [address] [place] [id number] Katie Hendrix RN Social History Tobacco Use Types Packs/Day Years Used Date Smoking Tobacco: Former Cigarettes Q uit: 09/28/1978 Smokeless Tobacco: Never Alcohol Use Standard Drinks/Week Comments Yes 0 (1 standard drink = 0.6 oz pur e alcohol) Comments Unknown Sex and Gender Information Value Date Recorded Sex Assigned at Not on file Legal Sex Female 8:30 AM GEOTHERMAL POWERPLANT MECHANIC Gender Identity Female 10/06/2021 4:28 PM GEOTHERMAL POWERPLANT MECHANIC Sexual Orientation Choose not to disclose 2020 4:28 PM GEOTHERMAL POWERPLANT MECHANIC documented as of this encounter Miscellaneous Notes * Telephone Encounter - Katie Hendrix RN - 10/20/2021 11:07 AM GEOTHERMAL POWERPLANT MECHANIC Patient called to let IR know that she was instructed to hold blood thinners for hip injection on 10/23/21. HERMAL POWERPLANT MECHANIC documented in this encounter Plan of Treatment Not on file documented as of this encounter Visit Diagnoses Not on filedocumented in this encounter Care Teams Concrete Pipe Plant Supervisor Relationship Specialty Start Date End Date Devaughn Macias MD PCP - General Family Medicine 01/31/20 01/13/22 documented as of this encounter
--- OUTSIDE RECORDS SUMMARY | 2024-10-22 00:55 | XMS_ITS | Encounter Summary ---
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 Social History Tobacco Use Types Packs/Day Years Used Date Smoking Tobacco: Former Cigarettes Q uit: 09/28/1978 Smokeless Tobacco: Never Alcohol Use Standard Drinks/Week Comments Yes 0 (1 standard drink = 0.6 oz pur e alcohol) Comments Unknown Sex and Gender Information Value Date Recorded Sex Assigned at Not on file Legal Sex Female 8:30 AM LEGAL INTERN Gender Identity Female 10/06/2021 4:28 PM LEGAL INTERN Sexual Orientation Choose not to disclose 2020 4:28 PM LEGAL INTERN documented as of this encounter Plan of [...] Diagnosis Atrial fibrillation, unspecified type (HCC)- Primary 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
--- OUTSIDE RECORDS SUMMARY | 2024-10-22 00:55 | XMS_ITS | Encounter Summary ---
Author Organization [facility] Address [address] [place] [address] Care Team Providers Care Scientific Artist Name Role Phone Devaughn Macias MD Primary Care Provider Encounter Details Date Type Department Care Team (Latest Contact Info) Description 12/03/2021 Anticoagulation Visit [facility] Cardiology [address] [place] [address] Jacque Hitchcock RN Atrial fibrillation, unspecified type (HCC) (Primary Dx); penitentiary current use of anticoagulant therapy Social History Tobacco Use Types Packs/Day Years Used Date Smoking Tobacco: Former Cigarettes Q uit: 09/28/1978 Smokeless Tobacco: Never Alcohol Use Standard Drinks/Week Comments Yes 0 (1 standard drink = 0.6 oz pur e alcohol) Comments Unknown Sex and Gender Information Value Date Recorded Sex Assigned at Not on file Legal Sex Female 8:30 AM HEBREW TEACHER Gender Identity Female 10/06/2021 4:28 PM HEBREW TEACHER Sexual Orientation Choose not to disclose 2020 4:28 PM HEBREW TEACHER documented as of this encounter Plan [...] Diagnosis Atrial fibrillation, unspecified type (HCC)- Primary penitentiary current use of anticoagulant therapy documented in this encounter Care Teams Scientific Artist Relationship Specialty Start Date End Date Devaughn Macias MD PCP - General Family Medicine 01/31/20 01/13/22 documented as of this encounter
--- OUTSIDE RECORDS SUMMARY | 2024-10-22 00:55 | XMS_ITS | Encounter Summary ---
Author Organization [facility] Address [address] [place] [address] Care Team Providers Care Trench Digger Name Role Phone Denis Platt MD Primary Care Provide r Encounter Details Date Type Department Care Team (Late st Contact Info) Description 03/19/[address] [facility] Orthopedics and Sports Medicine [address] [facility] [address], [place] [address] Lilly Moncada MA Social History Tobacco Use Types Packs/Day Years Used Date Smoking Tobacco: Former Cigarettes Q uit: 09/28/1978 Smokeless Tobacco: Never Alcohol Use Standard Drinks/Week Comments Yes 0 (1 standard drink = 0.6 oz pur e alcohol) Comments Unknown Sex and Gender Information Value Date Recorded Sex Assigned at Not on file Legal Sex Female 8:30 AM VETERAN APPEALS REVIEWER Gender Identity Female 10/06/2021 4:28 PM VETERAN APPEALS REVIEWER Sexual Orientation Choose not to disclose 2020 4:28 PM VETERAN APPEALS REVIEWER documented as of this encounter Miscellaneous Notes [...] on filedocumented in this encounter Care Teams Trench Digger Relationship Specialty Start Date End Date Denis Platt MD [address] [place] [address] PCP - General Family Medicine 01/14/22 07/18/23 documented as of this encounter
--- OUTSIDE RECORDS SUMMARY | 2024-10-22 00:55 | XMS_ITS | Encounter Summary ---
Author Organization [facility] Address [address] [facility] [address] [place] [address] Care Team Providers Care Patient Registration Clerk Name Role Phone Devaughn Macias MD Primary Care Provider Reason for Referral * Diagnostic Imaging (Routine) - Closed Specialty Diagnoses / Procedures Referred By Lyndsey t Referred To Contact Diagnoses Primary osteoarthritis of left hip Procedures FL Fluoro Guided Injection Hip Left Tawny Yung PA Phone: tel: fax: [facility] [address] [place] [address] Referral ID Status Reason Start Date Expiration Date Visits Re quested Visits Authorized [id number] Closed 10/09/2021 11/08/2022 1 1 ECTION SYSTEMS ADMINISTRATOR Reason for Visit * Reason Comments Pain Encounter Details Date Type Department Care Team (Late st Contact Info) Description 10/09/2021 9:15 AM COLLECTION SYSTEMS ADMINISTRATOR Office Visit [facility] Orthopedics and Sports Medicine [address] [facility] [address] [place] [address] Tawny Yung PA [address] [place] [address] Primary osteoarthritis of left hip (Primary Dx) Social History Tobacco Use Types Packs/Day Years Used Date Smoking Tobacco: Former Cigarettes Q uit: 09/28/1978 Smokeless Tobacco: Never Alcohol Use Standard Drinks/Week Comments Yes 0 (1 standard drink = 0.6 oz pur e alcohol) Comments Unknown Sex and Gender Information Value Date Recorded Sex Assigned at Not on file Legal Sex Female 8:30 AM COLLECTION SYSTEMS ADMINISTRATOR Gender Identity Female 10/06/2021 4:28 PM COLLECTION SYSTEMS ADMINISTRATOR Sexual Orientation Choose not to disclose 2020 4:28 PM COLLECTION SYSTEMS ADMINISTRATOR documented as of this encounter Last Filed Vital Signs Vital Sign Reading Time Taken Comments Blood Pressure 174/73 10/09/2021 9:11 AM COLLECTION SYSTEMS ADMINISTRATOR Pulse 64 10/09/2021 9:11 AM COLLECTION SYSTEMS ADMINISTRATOR Temperature - - Respiratory Rate - - Oxygen Saturation - - Inhaled Oxygen Concentration - - Weight 89.2 kg (196 lb 9.6 oz) 10/09/2021 9:11 A M COLLECTION SYSTEMS ADMINISTRATOR Height 165.1 cm (5' 5 ) 10/09/2021 9:11 AM COLLECTION SYSTEMS ADMINISTRATOR Body Mass Index 32.72 10/09/2021 9:11 AM COLLECTION SYSTEMS ADMINISTRATOR documented in this encounter Progress Notes * Tawny Yung PA - 10/09/2021 9:15 AM CST Images [...] Herber Knott MD at 10/14/2021 3:28 PM COLLECTION SYSTEMS ADMINISTRATOR ECTION SYSTEMS ADMINISTRATOR ECTION SYSTEMS ADMINISTRATOR documented in this encounter Miscellaneous Notes * Addendum Note - Rito Patel MA - 10/09/2021 9:15 AM CSTAddended by: RITO PATEL on: 10/09/2021 10:51 AM Modules accepted: Orders ECTION SYSTEMS ADMINISTRATOR documented in this encounter Plan of Treatment Not on file documented as of this encounter Results * FL Fluoro Guided Injection Hip Left (10/23/2021 2:34 PM COLLECTION SYSTEMS ADMINISTRATOR) Anatomical Region Laterality Modality Hip Left Radio Fluoroscop y 10/24/2021 6:25 AM COLLECTION SYSTEMS ADMINISTRATOR Narrative 10/24/2021 6:27 AM COLLECTION SYSTEMS ADMINISTRATOR EXAMINATION: ? Left hip ??joint injection under [...] AM T: ??10/24/2021 6:27 AM Report ID: [id number] Reading Location: ??[id number] Procedure Note Grant Carlos MD - 10/24/2021 [...] Grant Carlos M.D. MF: JOHN Report ID: [id number] Reading Location: [id number] Tawny BUSH IMG FLUOROSCOPY PROCEDURE S Final Result documented in this encounter Visit Diagnoses Diagnosis Primary osteoarthritis of left hip- Primary Primary osteoarthritis of left hip documented in this encounter Care Teams Patient Registration Clerk Relationship Specialty Start Date End Date Devaughn Macias MD PCP - General Family Medicine 01/31/20 01/13/22 documented as of this encounter
--- OUTSIDE RECORDS SUMMARY | 2024-10-22 00:55 | XMS_ITS | Encounter Summary ---
Author Organization [facility] Address [address] [place] [address] Care Team Providers Care Superintendent Police Name Role Phone Devaughn Macias MD Primary Care Provider Encounter Details Date Type Department Care Team (Late st Contact Info) Description 10/09/2021 Telephone [facility] Orthopedics and Sports Medicine [address] [facility] [address] [address] Blossom Conley MA Social History Tobacco Use Types Packs/Day Years Used Date Smoking Tobacco: Former Cigarettes Q uit: 09/28/1978 Smokeless Tobacco: Never Alcohol Use Standard Drinks/Week Comments Yes 0 (1 standard drink = 0.6 oz pur e alcohol) Comments Unknown Sex and Gender Information Value Date Recorded Sex Assigned at Not on file Legal Sex Female 8:30 AM STORE SHOPPER Gender Identity Female 10/06/2021 4:28 PM STORE SHOPPER Sexual Orientation Choose not to disclose 2020 4:28 PM STORE SHOPPER documented as of this encounter Miscellaneous Notes * Telephone Encounter - Blossom Conley MA - 10/13/2021 9:01 AM STORE SHOPPER Secondary insurance is a Medicare supplement plan. No auth required. Called and left voicemail for patient with scheduling's number. E SHOPPER * Telephone Encounter - Blossom Conley MA - 10/09/2021 10:52 AM STORE SHOPPER Fluoro guided injection ordered. Working on auth- has secondary insurance of [employer] E SHOPPER documented in this encounter Plan of Treatment Not on file documented as of this encounter Visit Diagnoses Not on filedocumented in this encounter Care Teams Superintendent Police Relationship Specialty Start Date End Date Devaughn Macias MD PCP - General Family Medicine 01/31/20 01/13/22 documented as of this encounter
--- OUTSIDE RECORDS SUMMARY | 2024-10-22 00:55 | XMS_ITS | Encounter Summary ---
Author Organization [facility] Address [address] [place] [address] Care Team Providers Care Senior Gamemaster Name Role Phone Denis Platt MD Primary Care Provide r Reason for Visit * Reason Comments Follow-up Encounter Details Date Type Department Care Team ([facility] Contact Info) Description 03/19/2022 10:30 AM CDT Office Visit [facility] Orthopedics and Sports Medicine [address] [facility] [address] [place] [address] Herber Knott MD [address] [place] [address] [address] [place] [address] Primary osteoarthritis of left hip (Primary Dx); [...] on file Legal Sex Female 8:30 AM ORNAMENT STITCHER Gender Identity Female 10/06/2021 4:28 PM ORNAMENT STITCHER Sexual Orientation Choose not to disclose 2020 4:28 PM ORNAMENT STITCHER documented as of this encounter Last Filed [...] X-RAYS/STUDIES/LABS severe advanced left hip osteoarthritis with [id number] contact, osteophyte formation, subluxation. Assessment/Plan Quin was [...] examination documented in this encounter Care Teams Senior Gamemaster Relationship Specialty Start Date End Date Denis Platt MD [address] [place] [address] PCP - General Family Medicine 01/14/22 07/18/23 documented as of this encounter
--- OUTSIDE RECORDS SUMMARY | 2024-10-22 00:55 | XMS_ITS | Encounter Summary ---
Author Organization [facility] Address [address] [place] [address] Care Team Providers Care Quotation Clerk Name Role Phone Devaughn Macias MD Primary Care Provider Reason for Visit * Cardiology (Routine) - Closed Specialty Diagnoses / Procedures Referred By Contac t Referred To Contact Diagnoses History of COVID-19 Paroxysmal atrial fibrillation (CMS/HCC) (HCC) HTN (hypertension), benign Procedures Transthoracic Echo Complete W Doppler/CF Ciarra Fitzpatrick MD [address] [address] Phone: tel: fax: [facility] Referral ID Status Reason Start Date Expiration Date Visits Re quested Visits Authorized [id number] Closed 02/12/2021 03/14/2022 1 1 Encounter Details Date Type Department Care Team (Latest Contact Info) Description 04/02/2021 9:15 AM CDT Ancillary Procedure [facility] [address] [place] [address] History of COVID-19; Paroxysmal atrial [...] on file Legal Sex Female 8:30 AM DETECTIVE [place] Gender Identity Female 10/06/2021 4:28 PM DETECTIVE [place] Sexual Orientation Choose not to disclose 2020 4:28 PM DETECTIVE [place] documented as of this encounter Plan of [...] AM CDT Narrative 04/02/2021 12:28 PM CDT [facility] Cardiology [address] [facility] [address], [place] [address] [facility] [facility] [address], [place] [address] P:[phone] P:[phone] Echocardiographic Report Patient Name: QUIN HUERTA : [id number] Study Date: 04/02/2021 8:42:16 AM Gender: F Tech: Location: OR Ref.Provider: CIARRA FITZPATRICK Height(Cm): 165 BSA: 1.94 [...] Findings: Interpretation Site: Exam was interpreted at [facility]. Left Ventricle: Normal left ventricular systolic function. [...] Procedure Note Prieto Rowell MD - 04/02/2021 [facility] Cardiology [address] [facility] [address], [place] [address] [facility] [address], [place] [address] P:[phone] P:[phone] Echocardiographic Report Patient Name: QUIN HUERTAPatient ID: [id number] : [id number] Date: 04/02/2021 8:42:16 AM Gender: FAccession #: [id number] Tech: GMLocation: OR Ref.Provider: CIARRA FITZPATRICKHeight(Cm): 165 BSA: 1.94Weight(Kg): 86.64 [...] 0.40 - 0.80 ] m/s MV Decel Xqeu277 [ 150 - 200 ] msec PV Peak Vel1.38 [ 0.40 - 0.80 ] m/s TR Peak Vel2.75 [ 0.40 - 0.80 ] m/s TR Peak PG 30mmHg RVSP38.00 mmHg E'0.09 E/E' 10 Findings: Interpretation Site: Exam was interpreted at [facility]. Left Ventricle: Normal left ventricular systolic function. [...] benign documented in this encounter Care Teams Quotation Clerk Relationship Specialty Start Date End Date Devaughn Macias MD PCP - General Family Medicine 01/31/20 01/13/22 documented as of this encounter
--- OUTSIDE RECORDS SUMMARY | 2024-10-22 00:55 | XMS_ITS | Encounter Summary ---
Author Organization [facility] Address [address] [place] [address] Care Team Providers Care Sports Photographer Name Role Phone Devaughn Macias MD Primary Care Provider Encounter Details Date Type Department Care Team (Late st Contact Info) Description 02/12/2021 Telephone [facility] Cardiology [address] [facility] [address] [place] [address] Andrade Brown MD [facility] [place] [id number] Social History Tobacco Use Types Packs/Day Years Used Date Smoking Tobacco: Former Cigarettes Q uit: 09/28/1978 Smokeless Tobacco: Never Alcohol Use Standard Drinks/Week Comments Yes 0 (1 standard drink = 0.6 oz pur e alcohol) Comments Unknown Sex and Gender Information Value Date Recorded Sex Assigned at Not on file Legal Sex Female 8:30 AM OIL MIXER Gender Identity Female 10/06/2021 4:28 PM OIL MIXER Sexual Orientation Choose not to disclose 2020 4:28 PM OIL MIXER documented as of this encounter Miscellaneous Notes * Telephone Encounter - Rosy White RN - 02/12/2021 10:56 AM CDT Pt inr documented in this encounter Plan of Treatment Scheduled Orders Name Type Priority Associated Diagnoses Orde r Schedule Protime-INR Lab Routine Paroxysmal atrial fibrillation (CMS/HCC) technician terminal and repeater current use of anticoagulant therapy 52 Occurrences starting 02/12/2021 until 02/12/2022 documented as of this encounter Visit Diagnoses Diagnosis Paroxysmal atrial fibrillation (CMS/HCC) (HCC)- Primary Atrial fibrillation longterm current use of anticoagulant therapy documented in this encounter Care Teams Sports Photographer Relationship Specialty Start Date End Date Devaughn Macias MD PCP - General Family Medicine 01/31/20 01/13/22 documented as of this encounter
--- OUTSIDE RECORDS SUMMARY | 2024-10-22 00:55 | XMS_ITS | Encounter Summary ---
Author Organization [facility] Address [address] [place] [address] Care Team Providers Care Crop Grain Or Livestock Farm Manager Name Role Phone Devaughn Macias MD Primary Care Provider Encounter Details Date Type Department Care Team (Latest Contact Info) Description 07/16/2021 Anticoagulation Visit [facility] Cardiology [address] [place] [address] Rachel Zhao RN Atrial fibrillation, unspecified type (HCC) (Primary Dx); assisted current use of anticoagulant therapy Social History Tobacco Use Types Packs/Day Years Used Date Smoking Tobacco: Former Cigarettes Q uit: 09/28/1978 Smokeless Tobacco: Never Alcohol Use Standard Drinks/Week Comments Yes 0 (1 standard drink = 0.6 oz pur e alcohol) Comments Unknown Sex and Gender Information Value Date Recorded Sex Assigned at Not on file Legal Sex Female 8:30 AM WELL HEAD PUMPER Gender Identity Female 10/06/2021 4:28 PM WELL HEAD PUMPER Sexual Orientation Choose not to disclose 2020 4:28 PM WELL HEAD PUMPER documented as of this encounter Plan of [...] therapy documented in this encounter Care Teams Crop Grain Or Livestock Farm Manager Relationship Specialty Start Date End Date Devaughn Macias MD PCP - General Family Medicine 01/31/20 01/13/22 documented as of this encounter
--- OUTSIDE RECORDS SUMMARY | 2024-10-22 00:55 | XMS_ITS | Encounter Summary ---
Author Organization [facility] Address [address] [place] [address] Care Team Providers Care Jewelry Department Supervisor Name Role Phone Devaughn Macias MD Primary Care Provider Reason for Visit * Reason Comments Peripheral Artery Disease Atrial Fibrillation 6 mo f/u Encounter Details Date Type Department Care Team (Latest Contact Info) Description 08/20/2021 9:45 AM SHORER Office Visit [facility] Cardiology [address] [facility] [address] [place] [address] Andrade Brown MD [address] [address] Non-rheumatic aortic stenosis (Primary Dx); HTN (hypertension), benign; PAD (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) ([facility]/HCC) (HCC); 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; 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 [...] on file Legal Sex Female 8:30 AM SHORER Gender Identity Female 10/06/2021 4:28 PM SHORER Sexual Orientation Choose not to disclose 2020 4:28 PM SHORER documented as of this encounter Last Filed Vital Signs Vital Sign Reading Time Taken Comments Blood Pressure 112/62 08/20/2021 9:38 AM SHORER Pulse 60 08/20/2021 9:38 AM SHORER Temperature - - Respiratory Rate - - Oxygen Saturation 98% 08/20/2021 9:38 AM SHORER Inhaled Oxygen Concentration - - Weight 87.1 kg (192 lb) 08/20/2021 9:38 AM SHORER Height 165.1 cm (5' 5 ) 08/20/2021 9:38 AM SHORER Body Mass Index 31.95 08/20/2021 9:38 AM SHORER documented in this encounter Progress Notes * [...] ablation x2 with recent success 3. 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
--- OUTSIDE RECORDS SUMMARY | 2024-10-22 00:55 | XMS_ITS | Encounter Summary ---
Author Organization [facility] Address [address] [facility] [facility] [address] [place] [address] Care Team Providers Care Program Manager Transportation Name Role Phone Devaughn Macias MD Primary Care Provider Denis Platt MD Primary Care Provide r Encounter Details Date Type Department Care Team (Late st Contact Info) Description 04/02/2021 Orders Only [facility] Health Information Management [address] [place] [address] Scanning, Provider Social History Tobacco Use Types Packs/Day Years Used Date Smoking Tobacco: Former Cigarettes Q uit: 09/28/1978 Smokeless Tobacco: Never Alcohol Use Standard Drinks/Week Comments Yes 0 (1 standard drink = 0.6 oz pur e alcohol) Comments Unknown Sex and Gender Information Value Date Recorded Sex Assigned at Not on file Legal Sex Female 8:30 AM SYRUPER Gender Identity Female 10/06/2021 4:28 PM SYRUPER Sexual Orientation Choose not to disclose 2020 4:28 PM SYRUPER documented as of this encounter Plan of [...] on filedocumented in this encounter Care Teams Program Manager Transportation Relationship Specialty Start Date End Date Devaughn Macias MD PCP - General Family Medicine 01/31/20 01/13/22 Denis Platt MD [address] [place] [address] PCP - General Family Medicine 01/14/22 07/18/23 documented as of this encounter
--- OUTSIDE RECORDS SUMMARY | 2024-10-22 00:55 | XMS_ITS | Encounter Summary ---
Author Organization [facility] Address [address] [place] [address] Care Team Providers Care Adult Literacy Instructor Name Role Phone Denis Platt MD Primary Care Provide r Reason for Visit * Diagnostic Imaging (Routine) - Closed Specialty Diagnoses / Procedures Referred By Lyndsey farmer Referred To Contact Diagnoses Left hip pain Procedures XR Hip Left 2 or 3 Views Kami Lyons PA Phone: tel: fax: [facility] Referral ID Status Reason Start Date Expiration Date Visits Re quested Visits Authorized [id number] Closed 02/26/2022 03/28/2023 1 1 Encounter Details Date Type Department Care Team (Latest Contact Info) Description 02/26/2022 8:05 AM CDT - 02/26/2022 11:59 PM CDT Hospital Encounter [facility] Orthopedics and Sports Medicine [address] [place] [address] [address] [address] Discharge Disposition: Discharge to home [...] on file Legal Sex Female 8:30 AM ZIPPER LINING FOLDER Gender Identity Female 10/06/2021 4:28 PM ZIPPER LINING FOLDER Sexual Orientation Choose not to disclose 2020 4:28 PM ZIPPER LINING FOLDER documented as of this encounter Medications at [...] on filedocumented in this encounter Care Teams Adult Literacy Instructor Relationship Specialty Start Date End Date Denis Platt MD [address] [place] [address] PCP - General Family Medicine 01/14/22 07/18/23 documented as of this encounter
--- OUTSIDE RECORDS SUMMARY | 2024-10-22 00:55 | XMS_ITS | Encounter Summary ---
Author Organization [facility] Address [address] [place] [address] Care Team Providers Care Entry Level Machine Operator Name Role Phone Denis Platt MD Primary Care Provide r Encounter Details Date Type Department Care Team (Late st Contact Info) Description 01/14/2022 Telephone [facility] Cardiology [address] [facility] [address] [place] [address] Andrade Brown MD [facility] [place] [id number] Social History Tobacco Use Types Packs/Day Years Used Date Smoking Tobacco: Former Cigarettes Q uit: 09/28/1978 Smokeless Tobacco: Never Alcohol Use Standard Drinks/Week Comments Yes 0 (1 standard drink = 0.6 oz pur e alcohol) Comments Unknown Sex and Gender Information Value Date Recorded Sex Assigned at Not on file Legal Sex Female 8:30 AM FLIGHT INSTRUCTOR Gender Identity Female 10/06/2021 4:28 PM FLIGHT INSTRUCTOR Sexual Orientation Choose not to disclose 2020 4:28 PM FLIGHT INSTRUCTOR documented as of this encounter Miscellaneous Notes [...] monitoring documented in this encounter Care Teams Entry Level Machine Operator Relationship Specialty Start Date End Date Denis Platt MD [address] [place] [address] PCP - General Family Medicine 01/14/22 07/18/23 documented as of this encounter
--- OUTSIDE RECORDS SUMMARY | 2024-10-22 00:55 | XMS_ITS | Encounter Summary ---
Author Organization [facility] Address [address] [place] [address] Care Team Providers Care Physical Therapy Resident Name Role Phone Devaughn Macias MD Primary Care Provider Denis Platt MD Primary Care Provide r Gideon Campbell MD Primary Care Provider [phone] Encounter Details Date Type Department Care Team (Late st Contact Info) Description 10/15/2021 Telephone [facility] [address] [place] [address] Katie Hendrix, DORINDA Social History Tobacco Use Types Packs/Day Years Used Date Smoking Tobacco: Former Cigarettes Q uit: 09/28/1978 Smokeless Tobacco: Never Alcohol Use Standard Drinks/Week Comments Yes 0 (1 standard drink = 0.6 oz pur e alcohol) Comments Unknown Sex and Gender Information Value Date Recorded Sex Assigned at Not on file Legal Sex Female 8:30 AM DETAILER PHARMACEUTICALS Gender Identity Female 10/06/2021 4:28 PM DETAILER [employer]ARMACE[employer]ICALS Sexual Orientation Choose not to disclose 2020 4:28 PM DETAILER PHARMACEUTICALS documented as of this encounter Plan of Treatment Not on file documented as of this encounter Visit Diagnoses Not on filedocumented in this encounter Care Teams Physical Therapy Resident Relationship Specialty Start Date End Date Devaughn Macias MD PCP - General Family Medicine 01/31/20 01/13/22 Denis Platt MD [address] [place] [address] PCP - General Family Medicine 01/14/22 07/18/23 Gideon Campbell MD [address] [facility] [address] [address] PCP - General Family Medicine 07/19/23 documented as of this encounter
--- OUTSIDE RECORDS SUMMARY | 2024-10-22 00:55 | XMS_ITS | Encounter Summary ---
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
--- OUTSIDE RECORDS SUMMARY | 2024-10-22 00:55 | XMS_ITS | Encounter Summary ---
Author Organization [facility] Address [address] [facility] [address] [place] [address] Care Team Providers Care Land Development Project Manager Name Role Phone Denis Platt MD Primary Care Provide r Reason for Referral * Diagnostic Imaging (Routine) - Closed Specialty Diagnoses / Procedures Referred By Lnydsey farmer Referred To Contact Diagnoses Left hip pain Procedures XR Hip Left 2 or 3 Views Kami Lyons PA Phone: tel: fax: [facility] Referral ID Status Reason Start Date Expiration Date Visits Re quested Visits Authorized [id number] Closed 02/26/2022 03/28/2023 1 1 Reason for Visit * Reason Comments Pain Encounter Details Date Type Department Care Team (Late st Contact Info) Description 02/26/2022 3:15 PM CDT Office Visit [facility] Orthopedics and Sports Medicine [address] [place] [address] [address] [address] [place] [address] [place] [address] Left hip pain (Primary Dx); Primary osteoarthritis [...] on file Legal Sex Female 8:30 AM FUNERAL PREARRANGEMENT COUNSELOR Gender Identity Female 10/06/2021 4:28 PM FUNERAL PREARRANGEMENT COUNSELOR Sexual Orientation Choose not to disclose 2020 4:28 PM FUNERAL PREARRANGEMENT COUNSELOR documented as of this encounter Last Filed [...] hip documented in this encounter Care Teams Land Development Project Manager Relationship Specialty Start Date End Date Denis Platt MD [address] [place] [address] PCP - General Family Medicine 01/14/22 07/18/23 documented as of this encounter
--- OUTSIDE RECORDS SUMMARY | 2024-10-22 00:55 | XMS_ITS | Encounter Summary ---
Author Organization [facility] Address [address] [facility] [address] [place] [address] Care Team Providers Care Cylinder Press Operator Apprentice Name Role Phone Devaughn Macias MD Primary Care Provider Encounter Details Date Type Department Care Team (Late st Contact Info) Description 08/20/2021 Orders Only [facility] Cardiology [address] [facility] [address] [place] [id number] ProviderPeggy MD [address] [place], [place] [id number] Social History Tobacco Use Types Packs/Day Years Used Date Smoking Tobacco: Former Cigarettes Q uit: 09/28/1978 Smokeless Tobacco: Never Alcohol Use Standard Drinks/Week Comments Yes 0 (1 standard drink = 0.6 oz pur e alcohol) Comments Unknown Sex and Gender Information Value Date Recorded Sex Assigned at Not on file Legal Sex Female 8:30 AM DIRECTOR OF EDUCATION AND TRAINING Gender Identity Female 10/06/2021 4:28 PM DIRECTOR OF EDUCATION AND TRAINING Sexual Orientation Choose not to disclose 2020 4:28 PM DIRECTOR OF EDUCATION AND TRAINING documented as of this encounter Plan of [...] on filedocumented in this encounter Care Teams Cylinder Press Operator Apprentice Relationship Specialty Start Date End Date Devaughn Macias MD PCP - General Family Medicine 01/31/20 01/13/22 documented as of this encounter
--- OUTSIDE RECORDS SUMMARY | 2024-10-22 00:55 | XMS_ITS | Encounter Summary ---
Author Organization [facility] Address [address] [facility] [address] [place] [address] Care Team Providers Care Boom Boss Name Role Phone Devaughn Macias MD Primary Care Provider Encounter Details Date Type Department Care Team (Latest Contact Info) Description 10/01/2021 Anticoagulation Visit [facility] Cardiology [address] [place] [address] Rosy White RN Atrial fibrillation, unspecified type (HCC) (Primary Dx); [facility] current use of anticoagulant therapy Social History Tobacco Use Types Packs/Day Years Used Date Smoking Tobacco: Former Cigarettes Q uit: 09/28/1978 Smokeless Tobacco: Never Alcohol Use Standard Drinks/Week Comments Yes 0 (1 standard drink = 0.6 oz pur e alcohol) Comments Unknown Sex and Gender Information Value Date Recorded Sex Assigned at Not on file Legal Sex Female 8:30 AM FERRY PILOT Gender Identity Female 10/06/2021 4:28 PM FERRY PILOT Sexual Orientation Choose not to disclose 2020 4:28 PM FERRY PILOT documented as of this encounter Plan of [...] therapy documented in this encounter Care Teams Boom Boss Relationship Specialty Start Date End Date Devaughn Macias MD PCP - General Family Medicine 01/31/20 01/13/22 documented as of this encounter
--- OUTSIDE RECORDS SUMMARY | 2024-10-22 00:55 | XMS_ITS | Encounter Summary ---
Author Organization [facility] Address [address] [facility] [address] [place] [address] Care Team Providers Care Fishing Boat Captain Name Role Phone Denis Platt MD Primary Care Provide r Encounter Details Date Type Department Care Team (Late st Contact Info) Description 03/25/2022 Telephone [facility] Orthopedics and Sports Medicine [address] [facility] [address] [place] [address] Herber Knott MD [address] [place] [address] [address] [place] [address] Social History Tobacco Use Types Packs/Day Years Used Date Smoking Tobacco: Former Cigarettes Q uit: 09/28/1978 Smokeless Tobacco: Never Alcohol Use Standard Drinks/Week Comments Yes 0 (1 standard drink = 0.6 oz pur e alcohol) Comments Unknown Sex and Gender Information Value Date Recorded Sex Assigned at Not on file Legal Sex Female 8:30 AM CLAIMS COLLECTOR Gender Identity Female 10/06/2021 4:28 PM CLAIMS COLLECTOR Sexual Orientation Choose not to disclose 2020 4:28 PM CLAIMS COLLECTOR documented as of this encounter Miscellaneous Notes * Telephone Encounter - Anh Polanco - 03/25/2022 4:28 PM CDT Per Padmini needs written order. This was faxed * Telephone Encounter - Lilly Moncada MA - 03/25/2022 12:14 PM CDT Talked to patient script sent to pharmacy LM for padmini [phone] to let her know repeat urine morning [...] on filedocumented in this encounter Care Teams Fishing Boat Captain Relationship Specialty Start Date End Date Denis Platt MD [address] [place], [place] [id number] PCP - General Family Medicine 01/14/22 07/18/23 documented as of this encounter
--- OUTSIDE RECORDS SUMMARY | 2024-10-22 00:55 | XMS_ITS | Encounter Summary ---
Author Organization [facility] Address [address] [place] [address] Care Team Providers Care Tunnel Worker Name Role Phone Devaughn Macias MD Primary Care Provider Reason for Referral * Diagnostic Imaging (Routine) - Closed Specialty Diagnoses / Procedures Referred By Contac t Referred To Contact Diagnoses Primary osteoarthritis of left hip Procedures FL Fluoro Guided Injection Hip Left Tawny Yung PA Phone: tel: fax: [address] [phone] Referral ID Status Reason Start Date Expiration Date Visits Re quested Visits Authorized [id number] Closed 10/09/2021 11/08/2022 1 1 OSING ROOM MACHINIST Reason for Visit * Diagnostic Imaging (Routine) - Closed Specialty Diagnoses / Procedures Referred By Lyndsey farmer Referred To Contact Diagnoses Primary osteoarthritis of left hip Procedures FL Fluoro Guided Injection Hip Left Tawny Yung PA Phone: tel: fax: [address] [phone] Referral ID Status Reason Start Date Expiration Date Visits Re quested Visits Authorized [id number] Closed 10/09/2021 11/08/2022 1 1 Encounter Details Date Type Department Care Team (Latest Contact Info) Description 10/23/2021 1:58 PM COMPOSING ROOM MACHINIST - 10/23/2021 11:59 PM COMPOSING ROOM MACHINIST Hospital Encounter [facility] [address] [place] [address] Tawny Yung, RACHELLE [address] [place] [address] Rad, Amh Breast Primary osteoarthritis of left [...] on file Legal Sex Female 8:30 AM COMPOSING ROOM MACHINIST Gender Identity Female 10/06/2021 4:28 PM COMPOSING ROOM MACHINIST Sexual Orientation Choose not to disclose 2020 4:28 PM COMPOSING ROOM MACHINIST documented as of this encounter Medications at [...] Grant Carlos MD - 10/23/2021 2:15 PM COMPOSING ROOM MACHINIST Radiology Brief Post Procedure Note Attending: Dr. Grant Carlos Sedation/Anesthesia: Local Pre-procedure Diagnosis: Left hip OA Post-procedure Diagnosis: Same Procedure Performed: FL FLUORO GUIDED INJECTION HIP LEFT Procedure Findings: Successful Complications: None Estimated Blood Loss: None Specimens: None Condition: Stable Full report to follow. OSING ROOM MACHINIST documented in this encounter Plan of Treatment Not on file documented as of this encounter Procedures Procedure Name Priority Date/Time Associated Diagnosis Comments FL FLUORO GUIDED INJECTION HIP LEFT Schedule Routine, Read Routine (OP Routine) 10/23/2021 2:34 PM COMPOSING ROOM MACHINIST Primary osteoarthritis of left hip documented in this encounter Results * FL Fluoro Guided Injection Hip Left (10/23/2021 2:34 PM COMPOSING ROOM MACHINIST) Anatomical Region Laterality Modality Hip Left Radio Fluoroscop y 10/24/2021 6:25 AM COMPOSING ROOM MACHINIST Narrative 10/24/2021 6:27 AM COMPOSING ROOM MACHINIST EXAMINATION: ? Left hip ??joint injection under [...] AM T: ??10/24/2021 6:27 AM Report ID: [id number] Reading Location: ??[id number] Procedure Note Grant Carlos MD - 10/24/2021 [...] Grant Carlos M.D. MF: JOHN Report ID: [id number] Reading Location: [place] [address] Tawny BUSH IMG FLUOROSCOPY PROCEDURE S Final [...] 1 dose Contrast Given 10/23/2021 2:17 PM COMPOSING ROOM MACHINIST 1 mL lidocaine PF (XYLOCAINE) 10 mg/mL (1 %) preservative free injection 50 mg 50 mg (5 mL), other, Once, On Lisbeth 10/23/21 at 1445, For 1 dose Given 10/23/2021 2:18 PM COMPOSING ROOM MACHINIST 5 mL methylPREDNISolone acetate (DEPO-medrol) injection 80 mg 80 mg, intra-articular, Once, On Lisbeth 10/23/21 at 1445, For 1 dose Given 10/23/2021 2:18 PM COMPOSING ROOM MACHINIST 80 mg documented in this encounter Care Teams Tunnel Worker Relationship Specialty Start Date End Date Devaughn Macias MD PCP - General Family Medicine 01/31/20 01/13/22 documented as of this encounter
--- OUTSIDE RECORDS SUMMARY | 2024-10-22 00:55 | XMS_ITS | Encounter Summary ---
Author Organization [facility] Address [address] [facility] [address] [place] [address] Care Team Providers Care Door Liner Name Role Phone Devaughn Macias MD Primary Care Provider Reason for Visit * Diagnostic Imaging (Routine) - Closed Specialty Diagnoses / Procedures Referred By Lyndsey t Referred To Contact Diagnoses Left knee pain, unspecified chronicity Procedures XR Knee Left 4 or More Views Victoria Madison PA [address] [place] [address], [place] [address] Phone: tel: fax: Referral ID Status Reason Start Date Expiration Date Visits Re quested Visits Authorized [id number] Closed 10/30/2021 11/29/2022 1 1 Encounter Details Date Type Department Care Team (Latest Contact Info) Description 10/30/2021 7:48 AM SENIOR GAMEMASTER - 10/30/2021 11:59 PM SENIOR GAMEMASTER Hospital Encounter [facility] Orthopedics and Sports Medicine [address] [facility] [address] [place] [address] Discharge Disposition: Discharge to home or self [...] file Legal Sex Female 8:30 AM SENIOR GAMEMASTER Gender Identity Female 10/06/2021 4:28 PM SENIOR GAMEMASTER Sexual Orientation Choose not to disclose 2020 4:28 PM SENIOR GAMEMASTER documented as of this encounter Medications at [...] Read Routine (OP Routine) 10/30/2021 8:49 AM SENIOR GAMEMASTER Primary osteoarthritis of left knee documented in this encounter Results * XR Knee Left 4 or More Views (10/30/2021 8:49 AM SENIOR GAMEMASTER) Anatomical Region Laterality Modality Lower Extremities, Knee Left Digital Radiography Narrative 10/30/2021 9:37 AM SENIOR GAMEMASTER Radiographs taken of the left knee today reveal moderate degenerative changes with subchondral sclerosis, osteophyte formation, and diminished joint space. Victoria BUSH IMG XR PROCEDURES Fin al Result documented in this encounter Visit Diagnoses Not on filedocumented in this encounter Care Teams Door Liner Relationship Specialty Start Date End Date Devaughn Macias MD PCP - General Family Medicine 01/31/20 01/13/22 documented as of this encounter
--- OUTSIDE RECORDS SUMMARY | 2024-10-22 00:55 | XMS_ITS | Encounter Summary ---
Author Organization [facility] Address [address] [facility] [address] [place] [address] Care Team Providers Care Ingredient Mixer Name Role Phone Devaughn Macias MD Primary Care Provider Encounter Details Date Type Department Care Team (Latest Contact Info) Description 01/08/2022 Anticoagulation Visit [facility] Cardiology [address] [place] [address] Jacque Hitchcock RN Atrial fibrillation, unspecified type (HCC) (Primary Dx); [facility] current use of anticoagulant therapy Social History Tobacco Use Types Packs/Day Years Used Date Smoking Tobacco: Former Cigarettes Q uit: 09/28/1978 Smokeless Tobacco: Never Alcohol Use Standard Drinks/Week Comments Yes 0 (1 standard drink = 0.6 oz pur e alcohol) Comments Unknown Sex and Gender Information Value Date Recorded Sex Assigned at Not on file Legal Sex Female 8:30 AM TEAM LEADER/RESEARCH PSYCHOLOGIST Gender Identity Female 10/06/2021 4:28 PM TEAM LEADER/RESEARCH PSYCHOLOGIST Sexual Orientation Choose not to disclose 2020 4:28 PM TEAM LEADER/RESEARCH PSYCHOLOGIST documented as of this encounter Plan of [...] Diagnosis Atrial fibrillation, unspecified type (HCC)- Primary [facility] current use of anticoagulant therapy documented in this encounter Care Teams Ingredient Mixer Relationship Specialty Start Date End Date Devaughn Macias MD PCP - General Family Medicine 01/31/20 01/13/22 documented as of this encounter
--- OUTSIDE RECORDS SUMMARY | 2024-10-22 00:55 | XMS_ITS | Encounter Summary ---
Author Organization [facility] Address [address] [facility] [address] [place] [address] Care Team Providers Care Counter Top Maker Name Role Phone Devaughn Macias MD Primary Care Provider Encounter Details Date Type Department Care Team (Latest Contact Info) Description 07/16/2021 Anticoagulation Visit [facility] Cardiology [address] [place] [address] Rachel Zhao RN Atrial fibrillation, unspecified type (HCC) (Primary Dx); retirement current use of anticoagulant therapy Social History Tobacco Use Types Packs/Day Years Used Date Smoking Tobacco: Former Cigarettes Q uit: 09/28/1978 Smokeless Tobacco: Never Alcohol Use Standard Drinks/Week Comments Yes 0 (1 standard drink = 0.6 oz pur e alcohol) Comments Unknown Sex and Gender Information Value Date Recorded Sex Assigned at Not on file Legal Sex Female 8:30 AM CASKET LINER Gender Identity Female 10/06/2021 4:28 PM CASKET LINER Sexual Orientation Choose not to disclose 2020 4:28 PM CASKET LINER documented as of this encounter Plan of [...] therapy documented in this encounter Care Teams Counter Top Maker Relationship Specialty Start Date End Date Devaughn Macias MD PCP - General Family Medicine 01/31/20 01/13/22 documented as of this encounter
--- OUTSIDE RECORDS SUMMARY | 2024-10-22 00:55 | XMS_ITS | Encounter Summary ---
Author Organization [facility] Address [address] [facility] [address] [place] [address] Care Team Providers Care Pattern Maker Name Role Phone Denis Platt MD Primary [...] Studies Ciarra Fitzpatrick MD [address] [place] [address] [place] [address] Phone: tel: fax: [facility] Referral ID Status Reason Start Date Expiration Date Visits Re quested Visits Authorized [id number] Closed 02/18/2022 03/20/2023 1 1 Encounter Details Date Type Department Care Team (Late Contact Info) Description 02/17/[address] [facility] Cardiology [address] [facility] [address] [place] [address] Ciarra Fitzpatrick MD [address] [place] [address] Social History Tobacco Use Types Packs/Day Years Used Date Smoking Tobacco: Former Cigarettes Q uit: 09/28/1978 Smokeless Tobacco: Never Alcohol Use Standard Drinks/Week Comments Yes 0 (1 standard drink = 0.6 oz pur e alcohol) Comments Unknown Sex and Gender Information Value Date Recorded Sex Assigned at Not on file Legal Sex Female 8:30 AM AIR TRAFFIC CONTROL EQUIPMENT REPAIRER Gender Identity Female 10/06/2021 4:28 PM AIR TRAFFIC CONTROL EQUIPMENT REPAIRER Sexual Orientation Choose not to disclose 2020 4:28 PM AIR TRAFFIC CONTROL EQUIPMENT REPAIRER documented as of this encounter Miscellaneous [...] 02/17/2022 2:15 PM CDT Will forward to [facility]. Please advise, thank you! * Telephone Encounter - Elif Christina - 02/17/2022 1:52 PM CDT Pt states [facility] recommends pt gets a stress test done [...] AM CDT Narrative 02/26/2022 1:[address] [facility] Cardiology [address] [facility] [address], [place] [address] [address] [facility] [address], [place] [address] P:[phone] P:[phone] MPI Imaging Report Patient Name: QUIN HUERTADoug : 1935 Study Date: 02/26/2022 9:55:19 AM Gender: F Tech: NOR[facility] Location: [place] Ref.Provider: CIARRA FITZPATRICK Height(Cm): 165.1 BSA: Weight(Kg): [...] Procedure Note Ciarra Fitzpatrick MD - 02/26/2022 [facility] Cardiology [address] [facility] [address] [address] [address] [facility] [address], [place] [address] P:[phone] P:[phone] MPI Imaging Report Patient Name: QUIN HUERTA Rickey ID: [id number] : [id number] Date: 02/26/2022 9:55:19 AM Gender: FAccession #: [id number] Tech: NORMA, [place]Location: [place] Ref.Provider: Shanell FITZPATRICKight(Cm): 165.1 BSA: Weight(Kg): 84.8 [...] hyperlipidemia documented in this encounter Care Teams Pattern Maker Relationship Specialty Start Date End Date Denis Platt MD [address] [place], [place] [id number] PCP - General Family Medicine 01/14/22 07/18/23 documented as of this encounter
--- OUTSIDE RECORDS SUMMARY | 2024-10-22 00:55 | XMS_ITS | Encounter Summary ---
Author Organization [facility] Address [address] [facility] [address] [place] [address] Care Team Providers Care Deputy Sheriff/Investigator Name Role Phone Devaughn Macias MD Primary Care Provider Encounter Details Date Type Department Care Team (Latest Contact Info) Description 04/30/2021 Anticoagulation Visit [facility] Cardiology [address] [place] [address] Jesica Estrada RN Atrial fibrillation, [...] file Legal Sex Female 8:30 AM FUEL DISTRIBUTION SYSTEM OPERATOR Gender Identity Female 10/06/2021 4:28 PM FUEL DISTRIBUTION SYSTEM OPERATOR Sexual Orientation Choose not to disclose 2020 4:28 PM FUEL DISTRIBUTION SYSTEM OPERATOR documented as of this encounter Plan [...] Atrial fibrillation, unspecified type (HCC)- 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
--- OUTSIDE RECORDS SUMMARY | 2024-10-22 00:55 | XMS_ITS | Encounter Summary ---
Author Organization [facility] Address [address] [facility] [address] [place] [address] Care Team Providers Care Vascular Nurse Name Role Phone Denis Platt MD Primary Care Provide r Reason for Visit * Diagnostic Imaging (Routine) - Closed Specialty Diagnoses / Procedures Referred By Lyndsey farmer Referred To Contact Diagnoses Preoperative clearance Paroxysmal atrial fibrillation (CMS/HCC) (HCC) Essential hypertension PAD (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) (HCC) 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 goal <100 Procedures NM MPI SPECT (Rest and/or Stress) Multiple Studies Andrade Fitzpatrick MD [facility] [address] Phone: tel: fax: [facility] Referral ID Status Reason Start Date Expiration Date Visits Re quested Visits Authorized [id number] Closed 02/18/2022 03/20/2023 1 1 Encounter Details Date Type Department Care Team (Latest Contact Info) Description 02/26/2022 10:15 AM CDT Ancillary Procedure [facility] Cardiology [address] [facility] [address] [place] [address] Preoperative clearance; Paroxysmal atrial fibrillation [...] on file Legal Sex Female 8:30 AM HR ASSISTANT Gender Identity Female 10/06/2021 4:28 PM HR ASSISTANT Sexual Orientation Choose not to disclose 2020 4:28 PM HR ASSISTANT documented as of this encounter Plan [...] AM CDT Narrative 02/26/2022 1:09 PM CDT [facility] Cardiology [address] [facility] [address] [address] [place] [address] [address] [id number] P:[phone] P:[phone] MPI Imaging Report Patient Name: QUIN HUERTADoug : [birth year] Study Date: 02/26/2022 9:55:19 AM Gender: F Tech: [facility] Location: [place] Ref.Provider: ANDRADE FITZPATRICK Height(Cm): 165.1 BSA: Weight(Kg): [...] Procedure Note Andrade Fitzpatrick MD - 02/26/2022 [facility] Cardiology [address] [facility] [address], [place] [address] [address], [place] [address] P:[phone] P:[phone] MPI Imaging Report Patient Name: QUIN HUERTA Nydiant ID: [id number] : [id number] Date: 02/26/2022 9:55:19 AM Gender: FAccession #: [id number] Tech: LE, CNMTLocation: [place] Ref.Provider: Shanell FITZPATRICKight(Cm): 165.1 BSA: Weight(Kg): 84.8 [...] millicuries documented in this encounter Care Teams Vascular Nurse Relationship Specialty Start Date End Date Denis Platt MD [address] [place] [address] PCP - General Family Medicine 01/14/22 07/18/23 documented as of this encounter
--- OUTSIDE RECORDS SUMMARY | 2024-10-22 00:56 | XMS_ITS | Encounter Summary ---
Author Organization [facility] Address [address] [facility] [address] [place] [address] Care Team Providers Care Winterizer Name Role Phone Kali Hunt MD Primary Care Provider [phone] Encounter Details Date Type Department Care Team (Latest Contact Info) Description 10/18/[address] 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 Social History Tobacco Use Types Packs/Day Years Used Date Smoking Tobacco: Former Cigarettes Q uit: 09/28/1978 Smokeless Tobacco: Never Alcohol Use Standard Drinks/Week Comments Yes 0 (1 standard drink = 0.6 oz pur e alcohol) Comments Unknown Sex and Gender Information Value Date Recorded Sex Assigned at Not on file Legal Sex Female 8:30 AM UPHOLSTERY CLEANER Gender Identity Female 10/06/2021 4:28 PM UPHOLSTERY CLEANER Sexual Orientation Choose not to disclose 2020 4:28 PM UPHOLSTERY CLEANER documented as of this encounter Plan of [...] Paroxysmal atrial fibrillation (CMS/HCC) (HCC) 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
--- OUTSIDE RECORDS SUMMARY | 2024-10-22 00:56 | XMS_ITS | Encounter Summary ---
Author Organization [facility] Address [address] [place] [address] Care Team Providers Care Spray Unit Feeder Name Role Phone Devaughn Macias MD Primary Care Provider Reason for Visit * Reason Comments Follow-up Encounter Details Date Type Department Care Team (Latest Contact Info) Description 08/07/2020 10:15 AM CDT Office Visit [facility] Cardiology [address] [place] [address] Andrade Brown MD [facility] [place] [id number] PAD (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/HCC) (Primary Dx); ekg monitor current use of anticoagulant therapy; Paroxysmal atrial [...] on file Legal Sex Female 8:30 AM CLOTH PACKER Gender Identity Female 10/06/2021 4:28 PM CLOTH PACKER Sexual Orientation Choose not to disclose 2020 4:28 PM CLOTH PACKER documented as of this encounter Last Filed [...] home blood pressure monitor Andrade Brown MD, [facility] documented in this encounter Plan of Treatment Not on file documented as of this encounter Visit Diagnoses Diagnosis PAD (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) (HCC)- Primary Unspecified peripheral vascular disease skilled nursing current use of anticoagulant therapy Paroxysmal atrial fibrillation (CMS/HCC) (HCC) Atrial fibrillation HTN (hypertension), benign Essential hypertension, benign documented in this encounter Care Teams Spray Unit Feeder Relationship Specialty Start Date End Date Devaughn Macias MD PCP - General Family Medicine 01/31/20 01/13/22 documented as of this encounter
--- OUTSIDE RECORDS SUMMARY | 2024-10-22 00:56 | XMS_ITS | Encounter Summary ---
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
--- OUTSIDE RECORDS SUMMARY | 2024-10-22 00:56 | XMS_ITS | Encounter Summary ---
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 therapy Social History Tobacco Use Types Packs/Day Years Used Date Smoking Tobacco: Former Cigarettes Q uit: 09/28/1978 Smokeless Tobacco: Never Alcohol Use Standard Drinks/Week Comments Yes 0 (1 standard drink = 0.6 oz pur e alcohol) Comments Unknown Sex and Gender Information Value Date Recorded Sex Assigned at Not on file Legal Sex Female 8:30 AM LEAD TEACHER Gender Identity Female 10/06/2021 4:28 PM LEAD TEACHER Sexual Orientation Choose not to disclose 2020 4:28 PM LEAD TEACHER documented as of this encounter Plan [...] Diagnosis Atrial fibrillation (CMS/HCC) (HCC) Atrial fibrillation 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
--- OUTSIDE RECORDS SUMMARY | 2024-10-22 00:56 | XMS_ITS | Encounter Summary ---
Author Organization [facility] Care Team Providers Care Record Label Internship Name Role Phone Kali Hunt MD Primary Care Provider [phone] Encounter Details Date Type Department Care Team [...] on file Legal Sex Female 8:30 AM CUFF KNITTER Gender Identity Female 10/06/2021 4:28 PM CUFF KNITTER Sexual Orientation Choose not to disclose 2020 4:28 PM CUFF KNITTER documented as of this encounter Plan of Treatment Not on file documented as of this encounter Visit Diagnoses Not on filedocumented in this encounter Care Teams Record Label Internship Relationship Specialty Start Date End Date Kali Hunt MD [address] [address] PCP - General Family Medicine 02/08/19 01/30/20 documented as of this encounter
--- OUTSIDE RECORDS SUMMARY | 2024-10-22 00:56 | XMS_ITS | Encounter Summary ---
Author Organization [facility] Address [address] [place] [address] Care Team Providers Care Real Estate Accountant Name Role Phone Priscilla Barrera MD Primary Care Provider [phone] Encounter Details Date Type Department Care Team (Latest Contact Info) Description 11/02/2018 Anticoagulation Visit [facility] [address] [place] [id number] Andrade Brown MD [facility] [place] [address] Paroxysmal atrial fibrillation (CMS/HCC); [facility] current use of anticoagulant therapy Social History Tobacco Use Types Packs/Day Years Used Date Smoking Tobacco: Former Smokeless Tobacco: Never Alcohol Use Standard Drinks/Week Comments Yes 0 (1 standard drink = 0.6 oz pur e alcohol) Comments Unknown Sex and Gender Information Value Date Recorded Sex Assigned at Not on file Legal Sex Female 8:30 AM OUTDOOR ADVENTURE LEADER Gender Identity Female 10/06/2021 4:28 PM OUTDOOR ADVENTURE LEADER Sexual Orientation Choose not to disclose 2020 4:28 PM OUTDOOR ADVENTURE LEADER documented as of this encounter Plan [...] Paroxysmal atrial fibrillation (CMS/HCC) (HCC) Atrial fibrillation [facility] current use of anticoagulant therapy documented in this encounter Care Teams Real Estate Accountant Relationship Specialty Start Date End Date Priscilla Barrera MD [address] [place] [address] PCP - General 01/08/17 02/07/19 documented as of this encounter
--- OUTSIDE RECORDS SUMMARY | 2024-10-22 00:56 | XMS_ITS | Encounter Summary ---
Author Organization [facility] Healthcare Address [address] [place] [address] Care Team Providers Care Asp Web Developer Name Role Phone Devaughn Macias MD Primary Care Provider Reason for Visit * Diagnostic Imaging (Routine) - Closed Specialty Diagnoses / Procedures Referred By Lyndsey farmer Referred To Contact Diagnoses Left hip pain Primary osteoarthritis of left hip Procedures [place] Fluoro Guided Injection Hip Left Kami Lyons PA Phone: tel: fax: [address] [address] Referral ID Status Reason Start Date Expiration Date Visits Re quested Visits Authorized [id number] Closed 06/07/2020 07/07/2021 1 1 Encounter Details Date Type Department Care Team (Late st Contact Info) Description 06/26/2020 7:32 AM CDT - 06/26/2020 11:59 PM CDT Hospital Encounter [facility] [address] [place] [address] Herber Knott MD [address] [place] [address] [place] [address] [address] [place] [address] Discharge Disposition: Discharge to home or self care Social History Tobacco Use Types Packs/Day Years Used Date Smoking Tobacco: Former Cigarettes Q uit: 09/28/1978 Smokeless Tobacco: Never Alcohol Use Standard Drinks/Week Comments Yes 0 (1 standard drink = 0.6 oz pur e alcohol) Comments Unknown Sex and Gender Information Value Date Recorded Sex Assigned at Not on file Legal Sex Female 8:30 AM PEDIATRIC CARE COORDINATOR Gender Identity Female 10/06/2021 4:28 PM PEDIATRIC CARE COORDINATOR Sexual Orientation Choose not to disclose 2020 4:28 PM PEDIATRIC CARE COORDINATOR documented as of this encounter Medications at [...] 12.8 9.5 - 13.0 sec [facility] INR 1.1 0.9 - 1.2 [facility] Comment: Interpretive data Oral anticoagulant therapeutic ranges: Venous thromboembolism prophylaxis or treatment: 2.0-3.0 CARDIOLOGY Standard range: 2.0-3.0 High-intensity range: 2.5-3.5 Refer to indication-specific guidelines for appropriate target ranges for prosthetic heart valve replacement. Current interpretive data was last revised on 2019. Blood specimen (specimen) 06/26/2020 8:31 AM CDT 06/26/2020 8:33 AM CDT us Kami [facility] BLOOD ORDERABLE S Final Result [facility] [address] [facility] [place] [address] documented in this encounter Visit Diagnoses Not [...] mg documented in this encounter Care Teams Asp Web Developer Relationship Specialty Start Date End Date Devaughn Macias MD PCP - General Family Medicine 01/31/20 01/13/22 documented as of this encounter
--- OUTSIDE RECORDS SUMMARY | 2024-10-22 00:56 | XMS_ITS | Encounter Summary ---
Author Organization [facility] Address [address] [place] [address] Care Team Providers Care Locomotive Engineer Name Role Phone Priscilla Barrera MD Primary Care Provider [phone] Encounter Details Date Type Department Care Team (Latest Contact Info) Description 06/01/2018 Anticoagulation Visit [facility] [address] [place] [address] Andrade Brown MD [facility] [place] [address] Paroxysmal atrial fibrillation (CMS/HCC); [facility] current use of anticoagulant therapy Social History Tobacco Use Types Packs/Day Years Used Date Smoking Tobacco: Former Smokeless Tobacco: Never Alcohol Use Standard Drinks/Week Comments Yes 0 (1 standard drink = 0.6 oz pur e alcohol) Comments Unknown Sex and Gender Information Value Date Recorded Sex Assigned at Not on file Legal Sex Female 8:30 AM A&P TECHNICIAN Gender Identity Female 10/06/2021 4:28 PM A&P TECHNICIAN Sexual Orientation Choose not to disclose 2020 4:28 PM A&P TECHNICIAN documented as of this encounter Plan [...] therapy documented in this encounter Care Teams Locomotive Engineer Relationship Specialty Start Date End Date Priscilla Barrera MD [address] [place] [address] PCP - General 01/08/17 02/07/19 documented as of this encounter
--- OUTSIDE RECORDS SUMMARY | 2024-10-22 00:56 | XMS_ITS | Encounter Summary ---
Author Organization [facility] Healthcare Address [address] [place] [address] Care Team Providers Care Aircraft Detail Draftsperson Name Role Phone Devaughn Macias MD Primary Care Provider Denis Platt MD Primary Care Provide r Gideon Campbell MD Primary Care Provider [phone] Encounter Details Date Type Department Care Team (Late st Contact Info) Description 06/18/2020 Telephone [facility] [address] [place] [address] Jagdish Ortega RT Social History Tobacco Use Types Packs/Day Years Used Date Smoking Tobacco: Former Cigarettes Q uit: 09/28/1978 Smokeless Tobacco: Never Alcohol Use Standard Drinks/Week Comments Yes 0 (1 standard drink = 0.6 oz pur e alcohol) Comments Unknown Sex and Gender Information Value Date Recorded Sex Assigned at Not on file Legal Sex Female 8:30 AM VOLCANOLOGY TEACHER Gender Identity Female 10/06/2021 4:28 PM VOLCANOLOGY TEACHER Sexual Orientation Choose not to disclose 2020 4:28 PM VOLCANOLOGY TEACHER documented as of this encounter Plan of Treatment Not on file documented as of this encounter Visit Diagnoses Not on filedocumented in this encounter Care Teams Aircraft Detail Draftsperson Relationship Specialty Start Date End Date Devaughn Macias MD PCP - General Family Medicine 01/31/20 01/13/22 Denis Platt MD [address] [place] [address] PCP - General Family Medicine 01/14/22 07/18/23 Gideon Campbell MD [address] [place] [address] PCP - General Family Medicine 07/19/23 documented as of this encounter
--- OUTSIDE RECORDS SUMMARY | 2024-10-22 00:56 | XMS_ITS | Encounter Summary ---
Author Organization [facility] Address [address] [place] [address] Care Team Providers Care Waiter/Waitress Name Role Phone Devaughn Macias MD Primary Care Provider Reason for Visit * Diagnostic Imaging (Routine) - Closed Specialty Diagnoses / Procedures Referred By Lyndsey farmer Referred To Contact Diagnoses Left hip pain Procedures XR Hip Left 2 or 3 Views Kami Lyons PA Phone: tel: fax: Referral ID Status Reason Start Date Expiration Date Visits Re quested Visits Authorized [id number] Closed 06/07/2020 07/07/2021 1 1 Encounter Details Date Type Department Care Team (Latest Contact Info) Description 06/07/2020 8:06 AM CDT - 06/07/2020 11:59 PM CDT Hospital Encounter [facility] Orthopedics and Sports Medicine [address] [place] [address] [address] [address] Discharge Disposition: Discharge to home [...] on file Legal Sex Female 8:30 AM FILE CLERK DATA ENTRY Gender Identity Female 10/06/2021 4:28 PM FILE CLERK DATA ENTRY Sexual Orientation Choose not to disclose 12/27/ 2021 4:28 PM FILE CLERK DATA ENTRY documented as of this encounter Medications at [...] on filedocumented in this encounter Care Teams Waiter/Waitress Relationship Specialty Start Date End Date Devaughn Macias MD PCP - General Family Medicine 01/31/20 01/13/22 documented as of this encounter
--- OUTSIDE RECORDS SUMMARY | 2024-10-22 00:56 | XMS_ITS | Encounter Summary ---
Author Organization [facility] Address [address] [place] [address] Care Team Providers Care Data Entry Analyst Name Role Phone Devaughn Macias MD Primary Care Provider Encounter Details Date Type Department Care Team (Latest Contact Info) Description 10/09/2020 Anticoagulation Visit [facility] Cardiology [address] [place] [address] Jesica Estrada RN Atrial fibrillation, unspecified type (CMS/HCC); snf current use of anticoagulant therapy Social History Tobacco Use Types Packs/Day Years Used Date Smoking Tobacco: Former Cigarettes Q uit: 09/28/1978 Smokeless Tobacco: Never Alcohol Use Standard Drinks/Week Comments Yes 0 (1 standard drink = 0.6 oz pur e alcohol) Comments Unknown Sex and Gender Information Value Date Recorded Sex Assigned at Not on file Legal Sex Female 8:30 AM NETWORK SECURITY ARCHITECT Gender Identity Female 10/06/2021 4:28 PM NETWORK SECURITY ARCHITECT Sexual Orientation Choose not to disclose 2020 4:28 PM NETWORK SECURITY ARCHITECT documented as of this encounter Plan of [...] Atrial fibrillation, unspecified type (HCC) 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
--- OUTSIDE RECORDS SUMMARY | 2024-10-22 00:56 | XMS_ITS | Encounter Summary ---
Author Organization [facility] Address [address] [place] [address] Care Team Providers Care Clinical Social Work Therapist Name Role Phone Devaughn Macias MD Primary Care Provider Encounter Details Date Type Department Care Team (Late st Contact Info) Description 02/08/2020 Telephone [facility] Cardiology [address] [place] [address] Andrade Brown MD [facility] [place] [id number] Social History Tobacco Use Types Packs/Day Years Used Date Smoking Tobacco: Former Cigarettes Q uit: 09/28/1978 Smokeless Tobacco: Never Alcohol Use Standard Drinks/Week Comments Yes 0 (1 standard drink = 0.6 oz pur e alcohol) Comments Unknown Sex and Gender Information Value Date Recorded Sex Assigned at Not on file Legal Sex Female 8:30 AM BRIDGE DESIGN ENGINEER Gender Identity Female 10/06/2021 4:28 PM BRIDGE DESIGN ENGINEER Sexual Orientation Choose not to disclose 2020 4:28 PM BRIDGE DESIGN ENGINEER documented as of this encounter Miscellaneous Notes * Telephone Encounter - Rachel Zhao, RN - 02/08/2020 9:19 AM CDT Called pt back. New standing order for INR faxed to [facility] as requested. * Telephone Encounter - Mandy Zamora - 02/08/2020 9:12 AM CDT Pt called to request a blood work order be faxed to [facility]. 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
--- OUTSIDE RECORDS SUMMARY | 2024-10-22 00:56 | XMS_ITS | Encounter Summary ---
Author Organization [facility] Address [address] [place] [address] Care Team Providers Care Culled Fruit Packer Name Role Phone Devaughn Macias MD Primary Care Provider Encounter Details Date Type Department Care Team (Latest Contact Info) Description 07/17/2020 Anticoagulation Visit [facility] Cardiology [address] [place] [address] Rachel Zhao RN Atrial fibrillation, unspecified type (CMS/HCC); assisted current use of anticoagulant therapy Social History Tobacco Use Types Packs/Day Years Used Date Smoking Tobacco: Former Cigarettes Q uit: 09/28/1978 Smokeless Tobacco: Never Alcohol Use Standard Drinks/Week Comments Yes 0 (1 standard drink = 0.6 oz pur e alcohol) Comments Unknown Sex and Gender Information Value Date Recorded Sex Assigned at Not on file Legal Sex Female 8:30 AM AIR CONDITIONING COIL ASSEMBLER Gender Identity Female 10/06/2021 4:28 PM AIR CONDITIONING COIL ASSEMBLER Sexual Orientation Choose not to disclose 2020 4:28 PM AIR CONDITIONING COIL ASSEMBLER documented as of this encounter Plan of [...] Diagnoses Diagnosis Atrial fibrillation, unspecified type (HCC) assisted current use of anticoagulant therapy documented in this encounter Care Teams Culled Fruit Packer Relationship Specialty Start Date End Date Devaughn Macias MD PCP - General Family Medicine 01/31/20 01/13/22 documented as of this encounter
--- OUTSIDE RECORDS SUMMARY | 2024-10-22 00:56 | XMS_ITS | Encounter Summary ---
Author Organization [facility] Address [address] [place] [address] Care Team Providers Care Cutting Pressman Name Role Phone Kali Hunt MD Primary Care Provider [phone] Reason for Visit * Reason Comments Atrial Fibrillation Peripheral Artery Disease Hypertension Hyperlipidemia 6 mo f/u Encounter Details Date Type Department Care Team (Latest Contact Info) Description 07/26/2019 11:30 AM CDT Office Visit [facility] [address] [place] [address] Andrade Brown MD [address] [address] 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 goal <100 (Primary Dx); 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 Andrade Brown MD, [facility] documented in this encounter Plan of Treatment Not on file documented as of this encounter Visit Diagnoses Diagnosis 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 goal <100- Primary Other and unspecified hyperlipidemia [facility]iary current use of anticoagulant therapy PAD (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) (HCC) Unspecified peripheral vascular disease Paroxysmal atrial fibrillation (CMS/HCC) (HCC) Atrial fibrillation documented in this encounter Care Teams Cutting Pressman Relationship Specialty Start Date End Date Kali Hunt MD [address] [place] [address] PCP - General Family Medicine 02/08/19 01/30/20 documented as of this encounter
--- OUTSIDE RECORDS SUMMARY | 2024-10-22 00:56 | XMS_ITS | Encounter Summary ---
Author Organization [facility] Address [address] [facility] [address] [place] [address] Care Team Providers Care Explosives Worker Name Role Phone Devaughn Macias MD Primary Care Provider Reason for Referral * Cardiology (Routine) - Closed Specialty Diagnoses / Procedures Referred By Contac t Referred To Contact Diagnoses History of COVID-19 Paroxysmal atrial fibrillation (CMS/HCC) (HCC) HTN (hypertension), benign Procedures Transthoracic Echo Complete W Doppler/CF Ciarra Fitzpatrick MD [address] [facility] [address] [place] [address] Phone: tel: fax: [facility] Referral ID Status Reason Start Date Expiration Date Visits Re quested Visits Authorized [id number] Closed 02/12/2021 03/14/2022 1 1 Reason for Visit * Reason Comments Atrial Fibrillation Carotid Artery Disease Hypertension 6 mo f/u Encounter Details Date Type Department Care Team (Latest Contact Info) Description 02/12/2021 10:15 AM CDT Office Visit [facility] Cardiology [address] [facility] [address] [place] [address] Ciarra Fitzpatrick MD [address] [place] [address] History of 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 termite helper (current) use of anticoagulants [Z79.01] No bleeding [...] clinically indicated. Low-salt diet Ciarra Fitzpatrick MD, [facility] documented in this encounter Plan of Treatment Not on file documented as of this encounter Results * TRANSTHORACIC ECHO (TTE) COMPLETE W DOPPLER/CF WO CONTRAST (04/02/2021 9:59 AM CDT) Anatomical Region Laterality Modality Ultrasound 04/02/2021 8:42 AM CDT Narrative 04/02/2021 12:28 PM CDT [facility] Cardiology [address] [facility] [address] [address] [address] [facility] [address] [address] P:[phone] P:[phone] Echocardiographic Report Patient Name: QUIN HUERTA : 1935 Study Date: 04/02/2021 8:42:16 AM Gender: F Tech: Location: [place] Ref.Provider: CIARRA FITZPATRICK Height(Cm): 165 BSA: 1.94 [...] Findings: Interpretation Site: Exam was interpreted at [facility]. Left Ventricle: Normal left ventricular systolic [...] Procedure Note Prieto Rowell MD - 04/02/2021 [facility] Cardiology [address], [place] [address] [address] [facility] [address], [place] [address] P:[phone] P:[phone] Echocardiographic Report Patient Name: QUIN HUERTAPatient ID: [id number] : [id number] Date: 04/02/2021 8:42:16 AM Gender: FAccession #: [id number] Tech: GMLocation: [place] Ref.Provider: CIARRA FITZPATRICKHeight(Cm): 165 BSA: 1.94Weight(Kg): 86.64 [...] 0.40 - 0.80 ] m/s MV Decel [id number] [ 150 - 200 ] msec PV Peak Vel1.38 [ 0.40 - 0.80 ] m/s TR Peak Vel2.75 [ 0.40 - 0.80 ] m/s TR Peak PG 30mmHg RVSP38.00 mmHg E'0.09 E/E' 10 Findings: Interpretation Site: Exam was interpreted at [facility]. 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
--- OUTSIDE RECORDS SUMMARY | 2024-10-22 00:56 | XMS_ITS | Encounter Summary ---
Author Organization [facility] Address [address] [facility] [address] [place] [address] Care Team Providers Care Sales Marketing Name Role Phone Devaughn Macias MD Primary Care Provider Reason for Visit * Reason Comments Hyperlipidemia Hypertension Peripheral Artery Disease 6 mo f/u Encounter Details Date Type Department Care Team (Latest Contact Info) Description 01/31/2020 9:45 AM CDT Telemedicine [facility] Cardiology [address] [place] [address] Andrade Brown MD [address] [address] PAD (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/HCC) (Primary Dx); 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 goal <100; long term current use of anticoagulant therapy; Paroxysmal atrial [...] on file Legal Sex Female 8:30 AM SLIP COVER MAKER Gender Identity Female 10/06/2021 4:28 PM SLIP COVER MAKER Sexual Orientation Choose not to disclose 2020 4:28 PM SLIP COVER MAKER documented as of this encounter Last [...] PVI ablation x2 with recent success 3. FDC (current) use of anticoagulants [Z79.01] No bleeding problems 4. PAD (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/HCC) Mild femoral disease 5. 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 goal <100 6. HTN (hypertension), benign At goal 7.. Mild carotid artery disease PLAN/RECOMMENDATIONS She is stable. I recommend continue her current cardiac regimen without change and I will see her back in 6 months or sooner as clinically indicated. Andrade Brown MD, [facility] This was a telemedicine visit with Quin Talley which took place via Telephone. During the visit, I was located [facility] and the patient was located at [...] LDL goal <100 Other and unspecified hyperlipidemia long term current use of anticoagulant therapy Paroxysmal atrial fibrillation (CMS/HCC) (HCC) Atrial fibrillation HTN (hypertension), benign Essential hypertension, benign documented in this encounter Care Teams Sales Marketing Relationship Specialty Start Date End Date Devaughn Macias MD PCP - General Family Medicine 01/31/20 01/13/22 documented as of this encounter
--- OUTSIDE RECORDS SUMMARY | 2024-10-22 00:56 | XMS_ITS | Encounter Summary ---
Author Organization [facility] Address [address] [facility] [address] [place] [address] Care Team Providers Care Basket Hand Weaver Name Role Phone Kali Hunt MD Primary Care Provider [phone] Encounter Details Date Type Department Care Team (Latest Contact Info) Description 03/01/2019 Anticoagulation Visit [facility] [address] [place] [address] Andrade Brown MD [address] [place] [address] Paroxysmal atrial fibrillation (CMS/HCC); group home [...] on file Legal Sex Female 8:30 AM APPLICATIONS SYSTEMS ANALYST Gender Identity Female 10/06/2021 4:28 PM APPLICATIONS SYSTEMS ANALYST Sexual Orientation Choose not to disclose 2020 4:28 PM APPLICATIONS SYSTEMS ANALYST documented as of this encounter Plan [...] therapy documented in this encounter Care Teams Basket Hand Weaver Relationship Specialty Start Date End Date Kali Hunt MD [address] [address] PCP - General Family Medicine 02/08/19 01/30/20 documented as of this encounter
--- OUTSIDE RECORDS SUMMARY | 2024-10-22 00:56 | XMS_ITS | Encounter Summary ---
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 Social History Tobacco Use Types Packs/Day Years Used Date Smoking Tobacco: Former Cigarettes Q uit: 09/28/1978 Smokeless Tobacco: Never Alcohol Use Standard Drinks/Week Comments Yes 0 (1 standard drink = 0.6 oz pur e alcohol) Comments Unknown Sex and Gender Information Value Date Recorded Sex Assigned at Not on file Legal Sex Female 8:30 AM CREATIVE STRATEGIST Gender Identity Female 10/06/2021 4:28 PM CREATIVE STRATEGIST Sexual Orientation Choose not to disclose 2020 4:28 PM CREATIVE STRATEGIST documented as of this encounter Plan of [...] Diagnosis Atrial fibrillation (CMS/HCC) (HCC) Atrial fibrillation [facility]P current use of anticoagulant therapy documented in this encounter Care Teams Emergency Registrar Relationship Specialty Start Date End Date Devaughn Macias MD PCP - General Family Medicine 01/31/20 01/13/22 documented as of this encounter
--- OUTSIDE RECORDS SUMMARY | 2024-10-22 00:56 | XMS_ITS | Encounter Summary ---
Author Organization [facility] Address [address] [facility] [address] [place] [address] Care Team Providers Care Top Dyeing Machine Loader Name Role Phone Devaughn Macias MD Primary Care Provider Reason for Visit * Reason Comments Pain Encounter Details Date Type Department Care Team (Late st Contact Info) Description 09/12/2020 11:30 AM EDUCATION INSTRUCTOR Office Visit [facility] Orthopedics and Sports Medicine [address] [facility] [address] [place] [address] Victoria Madsion PA [address] [place] [address] [address] [place] [address] Primary osteoarthritis of left hip (Primary Dx) Social History Tobacco Use Types Packs/Day Years Used Date Smoking Tobacco: Former Cigarettes Q uit: 09/28/1978 Smokeless Tobacco: Never Alcohol Use Standard Drinks/Week Comments Yes 0 (1 standard drink = 0.6 oz pur e alcohol) Comments Unknown Sex and Gender Information Value Date Recorded Sex Assigned at Not on file Legal Sex Female 8:30 AM EDUCATION INSTRUCTOR Gender Identity Female 10/06/2021 4:28 PM EDUCATION INSTRUCTOR Sexual Orientation Choose not to disclose 2020 4:28 PM EDUCATION INSTRUCTOR documented as of this encounter Last Filed Vital Signs Vital Sign Reading Time Taken Comments Blood Pressure 190/84 09/12/2020 11:11 AM EDUCATION INSTRUCTOR Pulse 72 09/12/2020 11:11 AM EDUCATION INSTRUCTOR Temperature 36.1 ??C (96.9 ??F) 09/12/2020 11:[address] Respiratory Rate - - Oxygen Saturation - - Inhaled Oxygen Concentration - - Weight 88.9 kg (196 lb) 09/12/2020 11:11 AM EDUCATION INSTRUCTOR Height 165.1 cm (5' 5 ) 09/12/2020 11:11 AM EDUCATION INSTRUCTOR Body Mass Index 32.62 09/12/2020 11:11 AM EDUCATION INSTRUCTOR documented in this encounter Progress Notes * [...] or concerns. RACHELLE Sparrow Cosigned by Herber Kntot MD at 09/12/2020 4:09 PM EDUCATION INSTRUCTOR ATION INSTRUCTOR ATION INSTRUCTOR documented in this encounter Plan of Treatment Not on file documented as of this encounter Visit Diagnoses Diagnosis Primary osteoarthritis of left hip- Primary documented in this encounter Care Teams Top Dyeing Machine Loader Relationship Specialty Start Date End Date Devaughn Macias MD PCP - General Family Medicine 01/31/20 01/13/22 documented as of this encounter
--- OUTSIDE RECORDS SUMMARY | 2024-10-22 00:56 | XMS_ITS | Encounter Summary ---
Author Organization [facility] Care Team Providers Care Imaging Specialist Name Role Phone Kali Hunt MD Primary Care Provider [phone] Encounter Details Date Type Department Care Team [...] file Legal Sex Female 8:30 AM ASSISTANT PROGRAM MANAGER Gender Identity Female 10/06/2021 4:28 PM ASSISTANT PROGRAM MANAGER Sexual Orientation Choose not to disclose 2020 4:28 PM ASSISTANT PROGRAM MANAGER documented as of this encounter Plan of Treatment Not on file documented as of this encounter Visit Diagnoses Not on filedocumented in this encounter Care Teams Imaging Specialist Relationship Specialty Start Date End Date Kali Hunt MD [address] [address] PCP - General Family Medicine 02/08/19 01/30/20 documented as of this encounter
--- OUTSIDE RECORDS SUMMARY | 2024-10-22 00:56 | XMS_ITS | Encounter Summary ---
Author Organization [facility] Address [address] [facility] [address] [place] [address] Care Team Providers Care Security Assurance Specialist Name Role Phone Priscilla Barrera MD Primary Care Provider [phone] Encounter Details Date Type Department Care Team (Latest Contact Info) Description 09/21/2018 Anticoagulation Visit [facility] [address] [facility] [address] [place] [phone] Andrade Brown MD [facility] [place] [address] Paroxysmal atrial fibrillation (CMS/HCC); [facility] current use of anticoagulant therapy Social History Tobacco Use Types Packs/Day Years Used Date Smoking Tobacco: Former Smokeless Tobacco: Never Alcohol Use Standard Drinks/Week Comments Yes 0 (1 standard drink = 0.6 oz pur e alcohol) Comments Unknown Sex and Gender Information Value Date Recorded Sex Assigned at Not on file Legal Sex Female 8:30 AM CW OPERATOR Gender Identity Female 10/06/2021 4:28 PM CW OPERATOR Sexual Orientation Choose not to disclose 2020 4:28 PM CW OPERATOR documented as of this encounter Plan [...] therapy documented in this encounter Care Teams Security Assurance Specialist Relationship Specialty Start Date End Date Priscilla Barrera MD [address] [place] [address] PCP - General 01/08/17 02/07/19 documented as of this encounter
--- OUTSIDE RECORDS SUMMARY | 2024-10-22 00:56 | XMS_ITS | Encounter Summary ---
Author Organization [facility] Address [address] [facility] [address] [place] [address] Care Team Providers Care Railway Patrol Officer Name Role Phone Devaughn Macias MD Primary Care Provider Encounter Details Date Type Department Care Team (Latest Contact Info) Description 09/20/[address] [facility] Cardiology [address] [place] [address] Jesica Estrada RN retirement current use of anticoagulant therapy; Atrial fibrillation, [...] on file Legal Sex Female 8:30 AM IRRIGATOR GRAVITY FLOW Gender Identity Female 10/06/2021 4:28 PM IRRIGATOR GRAVITY FLOW Sexual Orientation Choose not to disclose 2020 4:28 PM IRRIGATOR GRAVITY FLOW documented as of this encounter Progress Notes * Jesica Estrada RN - 09/20/2020 3:44 PM CST Opened under wrong patient GATOR GRAVITY FLOW documented in this encounter Plan of Treatment Not on file documented as of this encounter Procedures Procedure Name Priority Date/Time Associated Diagnosis Comments PROTIME-INR Routine 09/20/2020 documented in this encounter Results * (ABNORMAL) Protime-INR (09/20/2020) INR 2.50(A) 0.9 - 1.1 EXTERNAL LAB Blood specimen (specimen) Historical Provider LAB BLOOD ORDERABLES Noris l Result EXTERNAL LAB documented in this encounter Visit Diagnoses 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
--- OUTSIDE RECORDS SUMMARY | 2024-10-22 00:56 | XMS_ITS | Encounter Summary ---
Author Organization [facility] Address [address] [facility] [address] [place] [address] Care Team Providers Care Basketball Commentator Name Role Phone Devaughn Macias MD Primary Care Provider Encounter Details Date Type Department Care Team (Late st Contact Info) Description 12/04/2020 Telephone [facility] Cardiology [address] [facility] [address] [place] [address] Andrade Brown MD [facility] [place] [id number] Social History Tobacco Use Types Packs/Day Years Used Date Smoking Tobacco: Former Cigarettes Q uit: 09/28/1978 Smokeless Tobacco: Never Alcohol Use Standard Drinks/Week Comments Yes 0 (1 standard drink = 0.6 oz pur e alcohol) Comments Unknown Sex and Gender Information Value Date Recorded Sex Assigned at Not on file Legal Sex Female 8:30 AM THERAPIST RADIATION Gender Identity Female 10/06/2021 4:28 PM THERAPIST RADIATION Sexual Orientation Choose not to disclose 2020 4:28 PM THERAPIST RADIATION documented as of this encounter Ordered Prescriptions [...] Oct 2020. Ptwill get blood test tomorrow. APIST RADIATION * Telephone Encounter - Khushi Mcelroy - 12/04/2020 3:00 PM CST Received refill for Warfarin, but instead od 90 day supply, she received a 30 day supply. Pharmacy told her that's what we ordered and we will have to send them a new order. Verified pharmacy in chart is correct. APIST RADIATION documented in this encounter Plan of Treatment [...] documented as of this encounter Care Teams Basketball Commentator Relationship Specialty Start Date End Date Devaughn Macias MD PCP - General Family Medicine 01/31/20 01/13/22 documented as of this encounter
--- OUTSIDE RECORDS SUMMARY | 2024-10-22 00:56 | XMS_ITS | Encounter Summary ---
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 [...] on file Legal Sex Female 8:30 AM HYDRAULIC BLOCKER Gender Identity Female 10/06/2021 4:28 PM HYDRAULIC BLOCKER Sexual Orientation Choose not to disclose 2020 4:28 PM HYDRAULIC BLOCKER documented as of this encounter Plan of Treatment Not on file documented as of this encounter Visit Diagnoses Diagnosis Atrial fibrillation (CMS/HCC) (HCC) Atrial fibrillation [facility] current use of anticoagulant therapy documented in this encounter Care Teams Beverage Sales Consultant Relationship Specialty Start Date End Date Devaughn Macias MD PCP - General Family Medicine 01/31/20 01/13/22 documented as of this encounter
--- OUTSIDE RECORDS SUMMARY | 2024-10-22 00:56 | XMS_ITS | Encounter Summary ---
Author Organization [facility] Address [address] [facility] [address] [place] [address] Care Team Providers Care City Detective Name Role Phone Devaughn Macias MD Primary Care Provider Encounter Details Date Type Department Care Team (Late st Contact Info) Description 10/09/[address] [facility] Cardiology [address] [facility] [address] [place] [address] Andrade Brown MD [facility] [place] [id number] Social History Tobacco Use Types Packs/Day Years Used Date Smoking Tobacco: Former Cigarettes Q uit: 09/28/1978 Smokeless Tobacco: Never Alcohol Use Standard Drinks/Week Comments Yes 0 (1 standard drink = 0.6 oz pur e alcohol) Comments Unknown Sex and Gender Information Value Date Recorded Sex Assigned at Not on file Legal Sex Female 8:30 AM BASKET HAND BRAIDER Gender Identity Female 10/06/2021 4:28 PM BASKET HAND BRAIDER Sexual Orientation Choose not to disclose 2020 4:28 PM BASKET HAND BRAIDER documented as of this encounter Miscellaneous Notes * Telephone Encounter - Jesica Estrada RN - 10/09/2020 11:16 AM BASKET HAND BRAIDER Images from the original note were not included. Spoke with patient,test was in error and Patient had labs drawn again today. MayankQuin akins Matthew Alan, MD 2 hours ago (8:31 AM) My Chart shows results from a test. I had no such test taken. ET HAND BRAIDER documented in this encounter Plan of Treatment Not on file documented as of this encounter Visit Diagnoses Not on filedocumented in this encounter Care Teams City Detective Relationship Specialty Start Date End Date Devaughn Macias MD PCP - General Family Medicine 01/31/20 01/13/22 documented as of this encounter
--- OUTSIDE RECORDS SUMMARY | 2024-10-22 00:56 | XMS_ITS | Encounter Summary ---
Author Organization [facility] Address [address] [facility] [address] [place] [address] Care Team Providers Care Machine Room Engineer Name Role Phone Kali Hunt MD Primary Care Provider [phone] Encounter Details Date Type Department Care Team (Latest Contact Info) Description 04/12/2019 Anticoagulation Visit [facility] [address] [place] [address] Andrade Brown MD [address] [place] [address] Paroxysmal atrial fibrillation (CMS/HCC); jail current use [...] on file Legal Sex Female 8:30 AM BUS DISPATCHER INTERSTATE Gender Identity Female 10/06/2021 4:28 PM BUS DISPATCHER INTERSTATE Sexual Orientation Choose not to disclose 2020 4:28 PM BUS DISPATCHER INTERSTATE documented as of this encounter Plan of Treatment Not on file documented as of this encounter Procedures Procedure Name Priority Date/Time Associated Diagnosis Comments PROTIME-INR Routine 04/12/2019 documented in this encounter Results * (ABNORMAL) Protime-INR (04/12/2019) INR 2.50(A) 0.9 - 1.1 EXTERNAL LAB Blood specimen (specimen) us [facility] [place] Provider LAB BLOOD ORDERABLES Noris l Result EXTERNAL LAB documented in this encounter Visit Diagnoses Diagnosis Paroxysmal atrial fibrillation (CMS/HCC) (HCC) Atrial fibrillation jail current use of anticoagulant therapy documented in this encounter Care Teams Machine Room Engineer Relationship Specialty Start Date End Date Kali Hunt MD [address] [address] PCP - General Family Medicine 02/08/19 01/30/20 documented as of this encounter
--- OUTSIDE RECORDS SUMMARY | 2024-10-22 00:56 | XMS_ITS | Encounter Summary ---
Author Organization [facility] Address [address] [facility] [address] [place] [address] Care Team Providers Care Operations Liaison Name Role Phone Kali Hunt MD Primary Care Provider [phone] Encounter Details Date Type Department Care Team (Latest Contact Info) Description 08/02/2019 Anticoagulation Visit [facility] [address] [facility] [address] [place] [phone] Rosy White RN Paroxysmal atrial fibrillation (CMS/HCC); [facility] current use [...] on file Legal Sex Female 8:30 AM DIALYSIS CLINICAL MANAGER Gender Identity Female 10/06/2021 4:28 PM DIALYSIS CLINICAL MANAGER Sexual Orientation Choose not to disclose 2020 4:28 PM DIALYSIS CLINICAL MANAGER documented as of this encounter Plan [...] Paroxysmal atrial fibrillation (CMS/HCC) (HCC) Atrial fibrillation supervisor 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 current use of anticoagulant therapy documented in this encounter Care Teams Operations Liaison Relationship Specialty Start Date End Date Kali Hunt MD [address] [place] [address] PCP - General Family Medicine 02/08/19 01/30/20 documented as of this encounter
--- OUTSIDE RECORDS SUMMARY | 2024-10-22 00:56 | XMS_ITS | Encounter Summary ---
Author Organization [facility] Address [address] [facility] [address] [place] [address] Care Team Providers Care Business Coordinator Name Role Phone Kali Hunt MD Primary Care Provider [phone] Reason for Visit * Reason Comments Atrial Fibrillation Encounter Details Date Type Department Care Team ([facility] Contact Info) Description 03/01/2019 11:00 AM CDT Office Visit [facility] [address] [facility] [address] [place] [address] Kath Byrd, RAM[place] [address] [facility] [address] [place] [address] Paroxysmal atrial fibrillation (CMS/HCC) (Primary Dx) Social History Tobacco Use Types Packs/Day Years Used Date Smoking Tobacco: Former Cigarettes Q uit: 09/28/1978 Smokeless Tobacco: Never Alcohol Use Standard Drinks/Week Comments Yes 0 (1 standard drink = 0.6 oz pur e alcohol) Comments Unknown Sex and Gender Information Value Date Recorded Sex Assigned at Not on file Legal Sex Female 8:30 AM SLATE TRIMMER Gender Identity Female 10/06/2021 4:28 PM SLATE TRIMMER Sexual Orientation Choose not to disclose 2020 4:28 PM SLATE TRIMMER documented as of this encounter Last Filed [...] this encounter Progress Notes * Kaht Byrd, MANAGER BAKERY - 03/01/2019 11:00 AM CDT Patient ID: [...] follow with Dr. Brown with [facility]. 2. Hypertension 3. Long-term use of anticoagulant [...] * ECG 12 lead (03/01/2019) Kath Byrd MANAGER BAKERY ECG ORDERABLES Edited Res ult - Final documented in this encounter Visit Diagnoses Diagnosis Paroxysmal atrial fibrillation (CMS/HCC) (HCC)- Primary Atrial fibrillation documented in this encounter Care Teams Business Coordinator Relationship Specialty Start Date End Date Kali Hunt MD [address] [place] [address] PCP - General Family Medicine 02/08/19 01/30/20 documented as of this encounter
--- OUTSIDE RECORDS SUMMARY | 2024-10-22 00:56 | XMS_ITS | Encounter Summary ---
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 Social History Tobacco Use Types Packs/Day Years Used Date Smoking Tobacco: Former Cigarettes Q uit: 09/28/1978 Smokeless Tobacco: Never Alcohol Use Standard Drinks/Week Comments Yes 0 (1 standard drink = 0.6 oz pur e alcohol) Comments Unknown Sex and Gender Information Value Date Recorded Sex Assigned at Not on file Legal Sex Female 8:30 AM BREAST TRIMMER Gender Identity Female 10/06/2021 4:28 PM BREAST TRIMMER Sexual Orientation Choose not to disclose 2020 4:28 PM BREAST TRIMMER documented as of this encounter Plan of [...] therapy documented in this encounter Care Teams Industrial Safety And Health Specialist Relationship Specialty Start Date End Date Devaughn Macias MD PCP - General Family Medicine 01/31/20 01/13/22 documented as of this encounter
--- OUTSIDE RECORDS SUMMARY | 2024-10-22 00:56 | XMS_ITS | Encounter Summary ---
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 Social History Tobacco Use Types Packs/Day Years Used Date Smoking Tobacco: Former Smokeless Tobacco: Never Alcohol Use Standard Drinks/Week Comments Yes 0 (1 standard drink = 0.6 oz pur e alcohol) Comments Unknown Sex and Gender Information Value Date Recorded Sex Assigned at Not on file Legal Sex Female 8:30 AM PRINT COLOR OPERATOR Gender Identity Female 10/06/2021 4:28 PM PRINT COLOR OPERATOR Sexual Orientation Choose not to disclose 2020 4:28 PM PRINT COLOR OPERATOR documented as of this encounter Plan [...] therapy documented in this encounter Care Teams Quarrying Manager Relationship Specialty Start Date End Date Priscilla Barrrea MD [address] [place] [address] PCP - General 01/08/17 02/07/19 documented as of this encounter
--- OUTSIDE RECORDS SUMMARY | 2024-10-22 00:56 | XMS_ITS | Encounter Summary ---
Author Organization [facility] Address [address] [address] Care Team Providers Care Systems Programmer Analyst Name Role Phone Devaughn Macias MD Primary Care Provider Reason for Referral * Diagnostic Imaging (Routine) - Closed Specialty Diagnoses / Procedures Referred By Contac t Referred To Contact Diagnoses Left hip pain Primary osteoarthritis of left hip Procedures [place] Fluoro Guided Injection Hip Left Kami Lyons PA Phone: tel: fax: [address] [address] Referral ID Status Reason Start Date Expiration Date Visits Re quested Visits Authorized [id number] Closed 06/07/2020 07/07/2021 1 1 * Diagnostic Imaging (Routine) - Closed Specialty Diagnoses / Procedures Referred By Contac t Referred To Contact Diagnoses Left hip pain Procedures XR Hip Left 2 or 3 Views Kami Lyons PA Phone: tel: fax: Referral ID Status Reason Start Date Expiration Date Visits Re quested Visits Authorized [id number] Closed 06/07/2020 07/07/2021 1 1 Reason for Visit * Reason Comments Pain Encounter Details Date Type Department Care Team (Late st Contact Info) Description 06/07/2020 1:30 PM CDT Office Visit [facility] Orthopedics and Sports Medicine [address] [place] [address] [place] [address] [place] [address] [place] [address] Primary osteoarthritis of left hip (Primary Dx); [...] on file Legal Sex Female 8:30 AM BACK JOINER Gender Identity Female 10/06/2021 4:28 PM BACK JOINER Sexual Orientation Choose not to disclose 2020 4:28 PM BACK JOINER documented as of this encounter Last Filed [...] hip to be done under fluoro at [facility]. She may return to clinic in 3 [...] was obtained. ??Prior to beginning the procedure, [place] Protocol was performed to confirm the patient's [...] was obtained. Prior to beginning the procedure, [place] Protocol was performed to confirm the patient's [...] thigh documented in this encounter Care Teams Systems Programmer Analyst Relationship Specialty Start Date End Date Devaughn Macias MD PCP - General Family Medicine 01/31/20 01/13/22 documented as of this encounter
--- OUTSIDE RECORDS SUMMARY | 2024-10-22 00:56 | XMS_ITS | Encounter Summary ---
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 Social History Tobacco Use Types Packs/Day Years Used Date Smoking Tobacco: Former Cigarettes Q uit: 09/28/1978 Smokeless Tobacco: Never Alcohol Use Standard Drinks/Week Comments Yes 0 (1 standard drink = 0.6 oz pur e alcohol) Comments Unknown Sex and Gender Information Value Date Recorded Sex Assigned at Not on file Legal Sex Female 8:30 AM AUTOMOTIVE TECHNICIAN INSTRUCTOR Gender Identity Female 10/06/2021 4:28 PM AUTOMOTIVE TECHNICIAN INSTRUCTOR Sexual Orientation Choose not to disclose 2020 4:28 PM AUTOMOTIVE TECHNICIAN INSTRUCTOR documented as of this encounter Plan [...] Paroxysmal atrial fibrillation (CMS/HCC) (HCC) 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
--- OUTSIDE RECORDS SUMMARY | 2024-10-22 00:56 | XMS_ITS | Encounter Summary ---
Author Organization [facility] Address [address] [facility] [address] [place] [address] Care Team Providers Care Payroll Administrator Name Role Phone Kali Hutn MD Primary Care Provider [phone] Encounter Details Date Type Department Care Team (Late st Contact Info) Description 04/25/2019 Telephone [facility] [address] [facility] [address] [place] [address] Andrade Brown MD [facility] [place] [id number] Social History Tobacco Use Types Packs/Day Years Used Date Smoking Tobacco: Former Cigarettes Q uit: 09/28/1978 Smokeless Tobacco: Never Alcohol Use Standard Drinks/Week Comments Yes 0 (1 standard drink = 0.6 oz pur e alcohol) Comments Unknown Sex and Gender Information Value Date Recorded Sex Assigned at Not on file Legal Sex Female 8:30 AM INTERRELATED SPECIAL EDUCATION TEACHER Gender Identity Female 10/06/2021 4:28 PM INTERRELATED SPECIAL EDUCATION TEACHER Sexual Orientation Choose not to disclose 2020 4:28 PM INTERRELATED SPECIAL EDUCATION TEACHER documented as of this encounter Ordered Prescriptions [...] warfarin 4 mg tabs. Gave reference #[id number] documented in this encounter Plan of Treatment [...] documented as of this encounter Care Teams Payroll Administrator Relationship Specialty Start Date End Date Kali Hunt MD [address] [place] [address] PCP - General Family Medicine 02/08/19 01/30/20 documented as of this encounter
--- OUTSIDE RECORDS SUMMARY | 2024-10-22 00:56 | XMS_ITS | Encounter Summary ---
Author Organization [facility] Address [address] [place] [address] Care Team Providers Care Senior Business Intelligence Analyst Name Role Phone Devaughn Macias MD Primary Care Provider Encounter Details Date Type Department Care Team (Late st Contact Info) Description 06/26/2020 8:15 AM CDT [address] [address] Social History Tobacco Use Types Packs/Day Years Used Date Smoking Tobacco: Former Cigarettes Q uit: 09/28/1978 Smokeless Tobacco: Never Alcohol Use Standard Drinks/Week Comments Yes 0 (1 standard drink = 0.6 oz pur e alcohol) Comments Unknown Sex and Gender Information Value Date Recorded Sex Assigned at Not on file Legal Sex Female 8:30 AM RESOLUTION SPECIALIST Gender Identity Female 10/06/2021 4:28 PM RESOLUTION SPECIALIST Sexual Orientation Choose not to disclose 2020 4:28 PM RESOLUTION SPECIALIST documented as of this encounter Plan of Treatment Not on file documented as of this encounter Visit Diagnoses Not on filedocumented in this encounter Care Teams Senior Business Intelligence Analyst Relationship Specialty Start Date End Date Devaughn Macias MD PCP - General Family Medicine 01/31/20 01/13/22 documented as of this encounter
--- OUTSIDE RECORDS SUMMARY | 2024-10-22 00:56 | XMS_ITS | Encounter Summary ---
Author Organization [facility] Address [address] [facility] [address] [place] [address] Care Team Providers Care University Registrar Name Role Phone Devaughn Macias MD Primary Care Provider Encounter Details Date Type Department Care Team (Latest Contact Info) Description 12/05/2020 Anticoagulation Visit [facility] Cardiology [address] [place] [address] Rosy White RN Atrial fibrillation, unspecified type (CMS/HCC); shelter [...] file Legal Sex Female 8:30 AM RISK CONTROL PRODUCT LIABILITY DIRECTOR Gender Identity Female 10/06/2021 4:28 PM RISK CONTROL PRODUCT LIABILITY DIRECTOR Sexual Orientation Choose not to disclose 2020 4:28 PM RISK CONTROL PRODUCT LIABILITY DIRECTOR documented as of this encounter Plan [...] Diagnoses Diagnosis Atrial fibrillation, 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
--- OUTSIDE RECORDS SUMMARY | 2024-10-22 00:56 | XMS_ITS | Encounter Summary ---
Author Organization [facility] Address [address] [facility] [address] [place] [address] Care Team Providers Care Patternmaker Name Role Phone Kali Hunt MD Primary Care Provider [phone] Devaughn Macias MD Primary Care Provider Encounter Details Date Type Department Care Team (Late st Contact Info) Description 10/18/2019 Orders Only [facility] Health Information Management [address] [place] [address] Scanning, Provider Social History Tobacco Use Types Packs/Day Years Used Date Smoking Tobacco: Former Cigarettes Q uit: 09/28/1978 Smokeless Tobacco: Never Alcohol Use Standard Drinks/Week Comments Yes 0 (1 standard drink = 0.6 oz pur e alcohol) Comments Unknown Sex and Gender Information Value Date Recorded Sex Assigned at Not on file Legal Sex Female 8:30 AM FLAT POLISHER Gender Identity Female 10/06/2021 4:28 PM FLAT POLISHER Sexual Orientation Choose not to disclose 2020 4:28 PM FLAT POLISHER documented as of this encounter Plan of Treatment Not on file documented as of this encounter Procedures Procedure Name Priority Date/Time Associated Diagnosis Comments SCAN - LABS 10/18/2019 documented in this encounter Results * SCAN - LABS (10/18/2019) us Provider Scanning Final Result documented in this encounter Visit Diagnoses Not on filedocumented in this encounter Care Teams Patternmaker Relationship Specialty Start Date End Date Kali Hunt MD [address] [place] [address] PCP - General Family Medicine 02/08/19 01/30/20 Devaughn Macias MD [address] [place] [address] PCP - General Family Medicine 01/31/20 01/13/22 documented as of this encounter
--- OUTSIDE RECORDS SUMMARY | 2024-10-22 00:56 | XMS_ITS | Encounter Summary ---
Author Organization [facility] Address [address] [facility] [address] [place] [address] Care Team Providers Care Nuclear Licensing Engineer Name Role Phone Kali Hunt MD Primary Care Provider [phone] Encounter Details Date Type Department Care Team (Latest Contact Info) Description 05/17/2019 Anticoagulation Visit [facility] [address] [place] [address] Andrade Brown MD [address] [place] [address] Paroxysmal atrial fibrillation (CMS/HCC); halfway current use [...] file Legal Sex Female 8:30 AM BREAST BUFFER Gender Identity Female 10/06/2021 4:28 PM BREAST BUFFER Sexual Orientation Choose not to disclose 2020 4:28 PM BREAST BUFFER documented as of this encounter Plan of Treatment Not on file documented as of this encounter Procedures Procedure Name Priority Date/Time Associated Diagnosis Comments PROTIME-INR Routine 05/17/2019 documented in this encounter Results * (ABNORMAL) Protime-INR (05/17/2019) INR 2.42(A) 0.9 - 1.1 EXTERNAL LAB Blood specimen (specimen) us [facility] Provider LAB BLOOD ORDERABLES Noris l Result EXTERNAL LAB documented in this encounter Visit Diagnoses Diagnosis Paroxysmal atrial fibrillation (CMS/HCC) (HCC) Atrial fibrillation halfway current use of anticoagulant therapy documented in this encounter Care Teams Nuclear Licensing Engineer Relationship Specialty Start Date End Date Kali Hunt MD [address] [address] PCP - General Family Medicine 02/08/19 01/30/20 documented as of this encounter
--- OUTSIDE RECORDS SUMMARY | 2024-10-22 00:56 | XMS_ITS | Encounter Summary ---
Author Organization [facility] Address [address] [facility] [address] [place] [address] Care Team Providers Care Bottle Label Inspector Name Role Phone Devaughn Macias MD Primary Care Provider Encounter Details Date Type Department Care Team (Late st Contact Info) Description 06/19/2020 Telephone [facility] Orthopedics and Sports Medicine [address] [facility] [address] [address] [place] [address] [place] [address] Social History Tobacco Use Types Packs/Day Years Used Date Smoking Tobacco: Former Cigarettes Q uit: 09/28/1978 Smokeless Tobacco: Never Alcohol Use Standard Drinks/Week Comments Yes 0 (1 standard drink = 0.6 oz pur e alcohol) Comments Unknown Sex and Gender Information Value Date Recorded Sex Assigned at Not on file Legal Sex Female 8:30 AM LABORER SHELLFISH PROCESSING Gender Identity Female 10/06/2021 4:28 PM LABORER SHELLFISH PROCESSING Sexual Orientation Choose not to disclose 2020 4:28 PM LABORER SHELLFISH PROCESSING documented as of this encounter Miscellaneous Notes [...] Tennille Roy - 06/19/2020 8:24 AM CDT Jagdish with [facility] called over here, she [...] on filedocumented in this encounter Care Teams Bottle Label Inspector Relationship Specialty Start Date End Date Devaughn Macias MD PCP - General Family Medicine 01/31/20 01/13/22 documented as of this encounter
--- OUTSIDE RECORDS SUMMARY | 2024-10-22 00:56 | XMS_ITS | Encounter Summary ---
Author Organization [facility] Address [address] [facility] [address] [place] [address] Care Team Providers Care Regulatory Affairs Manager Name Role Phone Devaughn Macias MD Primary Care Provider Encounter Details Date Type Department Care Team (Latest Contact Info) Description 05/08/2020 Anticoagulation Visit [facility] Cardiology [address] [place] [address] Rosy White RN Atrial fibrillation (CMS/HCC); [facility] current use of anticoagulant therapy Social History Tobacco Use Types Packs/Day Years Used Date Smoking Tobacco: Former Cigarettes Q uit: 09/28/1978 Smokeless Tobacco: Never Alcohol Use Standard Drinks/Week Comments Yes 0 (1 standard drink = 0.6 oz pur e alcohol) Comments Unknown Sex and Gender Information Value Date Recorded Sex Assigned at Not on file Legal Sex Female 8:30 AM FACIAL OPERATOR Gender Identity Female 10/06/2021 4:28 PM FACIAL OPERATOR Sexual Orientation Choose not to disclose 2020 4:28 PM FACIAL OPERATOR documented as of this encounter Plan [...] Diagnosis Atrial fibrillation (CMS/HCC) (HCC) Atrial fibrillation [facility] current use of anticoagulant therapy documented in this encounter Care Teams Regulatory Affairs Manager Relationship Specialty Start Date End Date Devaughn Macias MD PCP - General Family Medicine 01/31/20 01/13/22 documented as of this encounter
--- OUTSIDE RECORDS SUMMARY | 2024-10-22 00:56 | XMS_ITS | Encounter Summary ---
Author Organization [facility] Address [address] [facility] [address] [place] [address] Care Team Providers Care Garbage Collection Supervisor Name Role Phone Kali Hunt MD Primary Care Provider [phone] Encounter Details Date Type Department Care Team (Latest Contact Info) Description 06/28/2019 Anticoagulation Visit [facility] [address] [place] [phone] Andrade Brown MD [address] [place] [address] Paroxysmal atrial fibrillation (CMS/HCC); penit[facility]iary current [...] file Legal Sex Female 8:30 AM BUSINESS COMMUNICATIONS INSTRUCTOR Gender Identity Female 10/06/2021 4:28 PM BUSINESS COMMUNICATIONS INSTRUCTOR Sexual Orientation Choose not to disclose 2020 4:28 PM BUSINESS COMMUNICATIONS INSTRUCTOR documented as of this encounter Plan of Treatment Not on file documented as of this encounter Procedures Procedure Name Priority Date/Time Associated Diagnosis Comments PROTIME-INR Routine 06/28/2019 documented in this encounter Results * (ABNORMAL) Protime-INR (06/28/2019) INR 1.97(A) 0.9 - 1.1 EXTERNAL LAB Blood specimen (specimen) us [facility] Provider LAB BLOOD ORDERABLES Noris l Result EXTERNAL LAB documented in this encounter Visit Diagnoses Diagnosis Paroxysmal atrial fibrillation (CMS/HCC) (HCC) Atrial fibrillation pen[facility] current use of anticoagulant therapy documented in this encounter Care Teams Garbage Collection Supervisor Relationship Specialty Start Date End Date Kali Hunt MD [address] [address] PCP - General Family Medicine 02/08/19 01/30/20 documented as of this encounter
--- OUTSIDE RECORDS SUMMARY | 2024-10-22 00:56 | XMS_ITS | Encounter Summary ---
Author Organization [facility] Address [address] [facility] [address] [place] [address] Care Team Providers Care Manager Forms Name Role Phone Priscilla Barrera MD Primary Care Provider [phone] Encounter Details Date Type Department Care Team (Latest Contact Info) Description 01/18/2019 Anticoagulation Visit [facility] [address] [facility] [address] [place] [phone] Andrade Brown MD [facility] [place] [address] Paroxysmal atrial fibrillation (CMS/HCC); [facility] current use of anticoagulant therapy Social History Tobacco Use Types Packs/Day Years Used Date Smoking Tobacco: Former Smokeless Tobacco: Never Alcohol Use Standard Drinks/Week Comments Yes 0 (1 standard drink = 0.6 oz pur e alcohol) Comments Unknown Sex and Gender Information Value Date Recorded Sex Assigned at Not on file Legal Sex Female 8:30 AM GLASS LAMINATING OPERATOR Gender Identity Female 10/06/2021 4:28 PM GLASS LAMINATING OPERATOR Sexual Orientation Choose not to disclose 2020 4:28 PM GLASS LAMINATING OPERATOR documented as of this encounter Plan [...] documented in this encounter Care Teams Manager Forms Relationship Specialty Start Date End Date Priscilla Barrera MD [address] [place] [address] PCP - General 01/08/17 02/07/19 documented as of this encounter
--- OUTSIDE RECORDS SUMMARY | 2024-10-22 00:56 | XMS_ITS | Encounter Summary ---
Author Organization [facility] Address [address] [facility] [address] [place] [address] Care Team Providers Care Oceanographic Meteorologist Name Role Phone Priscilla Barrera MD Primary Care Provider [phone] Encounter Details Date Type Department Care Team (Latest Contact Info) Description 07/06/2018 Anticoagulation Visit [facility] [address] [facility] [address] [place] [phone] Andrade Brown MD [facility] [place] [address] Paroxysmal atrial fibrillation (CMS/HCC); residential current use of anticoagulant therapy Social History Tobacco Use Types Packs/Day Years Used Date Smoking Tobacco: Former Smokeless Tobacco: Never Alcohol Use Standard Drinks/Week Comments Yes 0 (1 standard drink = 0.6 oz pur e alcohol) Comments Unknown Sex and Gender Information Value Date Recorded Sex Assigned at Not on file Legal Sex Female 8:30 AM WOUND CARE RN Gender Identity Female 10/06/2021 4:28 PM WOUND CARE RN Sexual Orientation Choose not to disclose 2020 4:28 PM WOUND CARE RN documented as of this encounter Plan of [...] therapy documented in this encounter Care Teams Oceanographic Meteorologist Relationship Specialty Start Date End Date Priscilla Barrera MD [address] [place] [address] PCP - General 01/08/17 02/07/19 documented as of this encounter
--- OUTSIDE RECORDS SUMMARY | 2024-10-22 00:56 | XMS_ITS | Encounter Summary ---
Author Organization [facility] Address [address] [address] [place] [address] Care Team Providers Care Crm Consultant Name Role Phone Priscilla Barrera MD Primary Care Provider [phone] Encounter Details Date Type Department Care Team (Latest Contact Info) Description 08/10/2018 Anticoagulation Visit [facility] [address] [facility] [address] [facility] [address] [place] [address] Andrade Brown MD [facility] [place] [address] Paroxysmal atrial fibrillation (CMS/HCC); jail current use of anticoagulant therapy Social History Tobacco Use Types Packs/Day Years Used Date Smoking Tobacco: Former Smokeless Tobacco: Never Alcohol Use Standard Drinks/Week Comments Yes 0 (1 standard drink = 0.6 oz pur e alcohol) Comments Unknown Sex and Gender Information Value Date Recorded Sex Assigned at Not on file Legal Sex Female 8:30 AM TERRITORY SERVICE REPRESENTATIVE Gender Identity Female 10/06/2021 4:28 PM TERRITORY SERVICE REPRESENTATIVE Sexual Orientation Choose not to disclose 2020 4:28 PM TERRITORY SERVICE REPRESENTATIVE documented as of this encounter [...] therapy documented in this encounter Care Teams Crm Consultant Relationship Specialty Start Date End Date Priscilla Barrera MD [address] [place] [address] PCP - General 01/08/17 02/07/19 documented as of this encounter
--- OUTSIDE RECORDS SUMMARY | 2024-10-22 00:56 | XMS_ITS | Encounter Summary ---
Author Organization [facility] Address [address] [facility] [address] [place] [address] Care Team Providers Care Electrical Instrument Technician Name Role Phone Kali Hunt MD Primary Care Provider [phone] Encounter Details Date Type Department Care Team (Latest Contact Info) Description 11/29/[address] [facility] Cardiology [address] [place] [address] Rosy White RN Paroxysmal atrial fibrillation (CMS/HCC); [facility] current use [...] on file Legal Sex Female 8:30 AM EXCELLENCE COACH Gender Identity Female 10/06/2021 4:28 PM EXCELLENCE COACH Sexual Orientation Choose not to disclose 2020 4:28 PM EXCELLENCE COACH documented as of this encounter Plan of [...] therapy documented in this encounter Care Teams Electrical Instrument Technician Relationship Specialty Start Date End Date Kali Hunt MD [address] [place] [address] PCP - General Family Medicine 02/08/19 01/30/20 documented as of this encounter
--- OUTSIDE RECORDS SUMMARY | 2024-10-22 00:56 | XMS_ITS | Encounter Summary ---
Author Organization [facility] Address [address] [facility] [address] [place] [address] Care Team Providers Care Temporary Staff Accountant Name Role Phone Devaughn Macias MD Primary Care Provider Encounter Details Date Type Department Care Team (Latest Contact Info) Description 02/05/2021 Anticoagulation Visit [facility] Cardiology [address] [place] [address] Rachel Zhao RN Atrial fibrillation, unspecified type (CMS/HCC); [facility] current use of anticoagulant therapy Social History Tobacco Use Types Packs/Day Years Used Date Smoking Tobacco: Former Cigarettes Q uit: 09/28/1978 Smokeless Tobacco: Never Alcohol Use Standard Drinks/Week Comments Yes 0 (1 standard drink = 0.6 oz pur e alcohol) Comments Unknown Sex and Gender Information Value Date Recorded Sex Assigned at Not on file Legal Sex Female 8:30 AM CORRECTIONAL CASE MANAGER Gender Identity Female 10/06/2021 4:28 PM CORRECTIONAL CASE MANAGER Sexual Orientation Choose not to disclose 2020 4:28 PM CORRECTIONAL CASE MANAGER documented as of this encounter Plan [...] Diagnoses Diagnosis Atrial fibrillation, unspecified type (HCC) [facility] current use of anticoagulant therapy documented in this encounter Care Teams Temporary Staff Accountant Relationship Specialty Start Date End Date Devaughn Macias MD PCP - General Family Medicine 01/31/20 01/13/22 documented as of this encounter
--- OUTSIDE RECORDS SUMMARY | 2024-10-22 00:56 | XMS_ITS | Encounter Summary ---
Author Organization [facility] Address [address] [facility] [address] [place] [address] Care Team Providers Care Adjunct Professor Of Voice Name Role Phone Kali Hunt MD Primary Care Provider [phone] Encounter Details Date Type Department Care Team (Latest Contact Info) Description 09/14/2019 Anticoagulation Visit [facility] [address] [facility] [address] [place] [address] Rosy White RN Paroxysmal atrial fibrillation (CMS/HCC); [...] on file Legal Sex Female 8:30 AM IT MANAGER Gender Identity Female 10/06/2021 4:28 PM IT MANAGER Sexual Orientation Choose not to disclose 2020 4:28 PM IT MANAGER documented as of this encounter Plan [...] fibrillation (CMS/HCC) (HCC) 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
--- OUTSIDE RECORDS SUMMARY | 2024-10-22 00:56 | XMS_ITS | Encounter Summary ---
Author Organization [facility] Address [address] [facility] [address] [place] [address] Care Team Providers Care Bundle Shaker Name Role Phone Kali Hunt MD Primary Care Provider [phone] Reason for Visit * Reason Comments Atrial Fibrillation Hyperlipidemia Peripheral Artery Disease Carotid Artery Disease 6 mo f/u Encounter Details Date Type Department Care Team (Latest Contact Info) Description 02/08/2019 10:15 AM CDT Office Visit [facility] [address] [facility] [address] [place] [address] Andrade Brown MD [facility] [address] PAD (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/HCC) (Primary Dx); Paroxysmal atrial fibrillation (CMS/HCC); HTN (hypertension), benign; prison current use of anticoagulant therapy; 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 [...] on file Legal Sex Female 8:30 AM SLIPCOVER CUTTER Gender Identity Female 10/06/2021 4:28 PM SLIPCOVER CUTTER Sexual Orientation Choose not to disclose 2020 4:28 PM SLIPCOVER CUTTER documented as of this encounter Last Filed [...] PVI ablation x2 with recent success 3. prison (current) use of anticoagulants [Z79.01] No bleeding problems 4. PAD (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/HCC) Mild femoral disease 5. 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 goal <100 6. HTN (hypertension), benign At goal 7.. Mild carotid artery disease PLAN/RECOMMENDATIONS She is stable. I recommend continue her current cardiac regimen without change and I will see her back in 6 months or sooner as clinically indicated. 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
--- OUTSIDE RECORDS SUMMARY | 2024-10-22 00:56 | XMS_ITS | Encounter Summary ---
Author Organization [facility] Address [address] [facility] [address] [place] [address] Care Team Providers Care Dump Grader Name Role Phone Devaughn Macias MD Primary Care Provider Encounter Details Date Type Department Care Team (Latest Contact Info) Description 01/02/2021 Anticoagulation Visit [facility] Cardiology [address] [place] [address] Jesica Estrada RN Atrial fibrillation, unspecified type (CMS/HCC); nursing home current use of anticoagulant therapy Social History Tobacco Use Types Packs/Day Years Used Date Smoking Tobacco: Former Cigarettes Q uit: 09/28/1978 Smokeless Tobacco: Never Alcohol Use Standard Drinks/Week Comments Yes 0 (1 standard drink = 0.6 oz pur e alcohol) Comments Unknown Sex and Gender Information Value Date Recorded Sex Assigned at Not on file Legal Sex Female 8:30 AM SALES AGENT TRADING STAMPS Gender Identity Female 10/06/2021 4:28 PM SALES AGENT TRADING STAMPS Sexual Orientation Choose not to disclose 2020 4:28 PM SALES AGENT TRADING STAMPS documented as of this encounter Plan of [...] Diagnoses Diagnosis Atrial fibrillation, unspecified type (HCC) 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
--- OUTSIDE RECORDS SUMMARY | 2024-10-22 00:56 | XMS_ITS | Encounter Summary ---
Author Organization [facility] Care Team Providers Care Communication Signals Intelligence Name Role Phone Kali Hunt MD Primary Care Provider [phone] Encounter Details Date Type Department Care Team [...] on file Legal Sex Female 8:30 AM HIV/AIDS CARE NURSE Gender Identity Female 10/06/2021 4:28 PM HIV/AIDS CARE NURSE Sexual Orientation Choose not to disclose 2020 4:28 PM HIV/AIDS CARE NURSE documented as of this encounter Plan of Treatment Not on file documented as of this encounter Visit Diagnoses Not on filedocumented in this encounter Care Teams Communication Signals Intelligence Relationship Specialty Start Date End Date Kali Hunt MD [address] [address] PCP - General Family Medicine 02/08/19 01/30/20 documented as of this encounter
--- OUTSIDE RECORDS SUMMARY | 2024-10-22 00:57 | XMS_ITS | Encounter Summary ---
Author Organization [facility] Address [address] [facility] [address] [place] [address] Care Team Providers Care Sales Enablement Lead Name Role Phone Priscilla Barrera MD Primary Care Provider [phone] Encounter Details Date Type Department Care Team (Late st Contact Info) Description 01/27/2017 Orders Only [facility] [address] [facility] [address], [place] [address] Oracio Love MD [address] [facility] [address] [place] [address] Social History Tobacco Use Types Packs/Day Years Used Date Smoking Tobacco: Former Cigarettes Q uit: 10/11/1977 Alcohol Use Standard Drinks/Week Comments Yes 0 (1 standard drink = 0.6 oz pur e alcohol) Comments Unknown Sex and Gender Information Value Date Recorded Sex Assigned at Not on file Legal Sex Female 8:30 AM CASKET UPHOLSTERER Gender Identity Female 10/06/2021 4:28 PM CASKET UPHOLSTERER Sexual Orientation Choose not to disclose 2020 4:28 PM CASKET UPHOLSTERER documented as of this encounter Plan of Treatment Not on file documented as of this encounter Procedures Procedure Name Priority Date/Time Associated Diagnosis Comments BASIC METABOLIC PANEL Routine 01/27/2017 6:41 AM CDT documented in this encounter Results * (ABNORMAL) Basic metabolic panel (01/27/2017 6:41 AM CDT) Sodium 141 135 - 145 mmol/L [facility] Potassium, pl 3.6 3.6 - 5.2 mmol/L [facility] Chloride 100 97 - 110 mmol/L [facility] CO2 26 22 - 32 mmol/L [facility] BUN 20.5 8.0 - 25.0 mg/dL [facility] Glucose 110 70 - 199 mg/dL [facility] Comment: Interpretive Data Glucose is assumed to be non-fasting. Current interpretive data was last revised 2017. Creatinine 1.23(H) 0.60 - 1.10 mg/dL [facility] Calcium 9.0 8.5 - 10.3 mg/dL [facility] Anion gap 15 2 - 15 mmol/L [facility] Blood specimen (specimen) 01/27/2017 6:41 AM CDT 01/27/2017 6:52 AM CDT us Oracio Love MD LAB BLOOD ORDERABLES Fi nal Result [facility] [address] [place] [address] documented in this encounter Visit Diagnoses Not on filedocumented in this encounter Care Teams Sales Enablement Lead Relationship Specialty Start Date End Date Priscilla Barrera MD [address] [place] [address] PCP - General 01/08/17 02/07/19 documented as of this encounter
--- OUTSIDE RECORDS SUMMARY | 2024-10-22 00:57 | XMS_ITS | Encounter Summary ---
Author Organization [facility] Address [address] [facility] [address] [place] [address] Care Team Providers Care Cabin Supervisor Name Role Phone Priscilla Barrera MD Primary Care Provider [phone] Encounter Details Date Type Department Care Team (Latest Contact Info) Description 04/27/2018 Anticoagulation Visit [facility] [address] [facility] [address] [place] [address] Andrade Brown MD [facility] [place] [address] Paroxysmal atrial fibrillation (CMS/HCC); intermediate current use of anticoagulant therapy Social History Tobacco Use Types Packs/Day Years Used Date Smoking Tobacco: Former Smokeless Tobacco: Never Alcohol Use Standard Drinks/Week Comments Yes 0 (1 standard drink = 0.6 oz pur e alcohol) Comments Unknown Sex and Gender Information Value Date Recorded Sex Assigned at Not on file Legal Sex Female 8:30 AM BAIL AGENT Gender Identity Female 10/06/2021 4:28 PM BAIL AGENT Sexual Orientation Choose not to disclose 2020 4:28 PM BAIL AGENT documented as of this encounter Plan of [...] atrial fibrillation (CMS/HCC) (HCC) Atrial fibrillation intermediate current use of anticoagulant therapy documented in this encounter Care Teams Cabin Supervisor Relationship Specialty Start Date End Date Priscilla Barrera MD [address] [place] [address] PCP - General 01/08/17 02/07/19 documented as of this encounter
--- OUTSIDE RECORDS SUMMARY | 2024-10-22 00:57 | XMS_ITS | Encounter Summary ---
Author Organization [facility] Address [address] [place] [address] Care Team Providers Care Accounts Receivable Accountant Name Role Phone Priscilla Barrera MD Primary Care Provider [phone] Encounter Details Date Type Department Care Team (Late st Contact Info) Description 02/02/2018 Telephone [facility] [address] [address] [address] [place] [address] Andrade Brown MD [facility] [place] [address] Social History Tobacco Use Types Packs/Day Years Used Date Smoking Tobacco: Former Smokeless Tobacco: Never Alcohol Use Standard Drinks/Week Comments Yes 0 (1 standard drink = 0.6 oz pur e alcohol) Comments Unknown Sex and Gender Information Value Date Recorded Sex Assigned at Not on file Legal Sex Female 8:30 AM STRUCTURAL TEST ENGINEER Gender Identity Female 10/06/2021 4:28 PM STRUCTURAL TEST ENGINEER Sexual Orientation Choose not to disclose 2020 4:28 PM STRUCTURAL TEST ENGINEER documented as of this encounter Miscellaneous Notes * Telephone Encounter - Jacque Herrera RN - 02/03/2018 8:[address] Brown, switch patient to Atorvastatin 40mg daily. Will send Rx to pharmacy. Patient requesting a 90 day supply. * Telephone Encounter - Jacque Herrera RN - 02/02/2018 9:22 AM CDT Spoke with patient, she states that her rebrander feels that she may be developing hives from her Simvastatin and is wondering if there is an alternative. States that this has been going on for acouple of years. Will review with Dr. Brown. documented in this encounter Plan of Treatment Not on file documented as of this encounter Visit Diagnoses Not on filedocumented in this encounter Care Teams Accounts Receivable Accountant Relationship Specialty Start Date End Date Priscilla Barrera MD [address] [place] [address] PCP - General 01/08/17 02/07/19 documented as of this encounter
--- OUTSIDE RECORDS SUMMARY | 2024-10-22 00:57 | XMS_ITS | Encounter Summary ---
Author Organization [facility] Address [address] [facility] [address] [place] [address] Care Team Providers Care Hr Receptionist Name Role Phone Priscilla Barrera MD Primary Care Provider [phone] Encounter Details Date Type Department Care Team (Latest Contact Info) Description 03/29/2017 Anticoagulation Visit [facility] [address] [facility] [address] [place] [address] Andrade Brown MD [facility] [place] [address] Paroxysmal atrial fibrillation (CMS/HCC); care home (current) use of anticoagulants Social History Tobacco Use Types Packs/Day Years Used Date Smoking Tobacco: Former Cigarettes Q uit: 10/11/1977 Alcohol Use Standard Drinks/Week Comments Yes 0 (1 standard drink = 0.6 oz pur e alcohol) Comments Unknown Sex and Gender Information Value Date Recorded Sex Assigned at Not on file Legal Sex Female 8:30 AM JANITOR CLEANER Gender Identity Female 10/06/2021 4:28 PM JANITOR CLEANER Sexual Orientation Choose not to disclose 2020 4:28 PM JANITOR CLEANER documented as of this encounter Plan [...] atrial fibrillation (CMS/HCC) (HCC) Atrial fibrillation 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
--- OUTSIDE RECORDS SUMMARY | 2024-10-22 00:57 | XMS_ITS | Encounter Summary ---
Author Organization [facility] Address [address] [facility] [address] [place] [address] Care Team Providers Care Manager Search Name Role Phone Priscilla Barrera MD Primary Care Provider [phone] Encounter Details Date Type Department Care Team (Latest Contact Info) Description 05/26/2017 Anticoagulation Visit [facility] [address] [facility] [address] [place] [address] Andrade Brown MD [facility] [place] [address] Paroxysmal atrial fibrillation (CMS/HCC); halfway (current) use of anticoagulants Social History Tobacco Use Types Packs/Day Years Used Date Smoking Tobacco: Former Smokeless Tobacco: Never Alcohol Use Standard Drinks/Week Comments Yes 0 (1 standard drink = 0.6 oz pur e alcohol) Comments Unknown Sex and Gender Information Value Date Recorded Sex Assigned at Not on file Legal Sex Female 8:30 AM INTERNATIONAL STUDENT COUNSELOR Gender Identity Female 10/06/2021 4:28 PM INTERNATIONAL STUDENT COUNSELOR Sexual Orientation Choose not to disclose 2020 4:28 PM INTERNATIONAL STUDENT COUNSELOR documented as of this encounter Plan of [...] atrial fibrillation (CMS/HCC) (HCC) 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
--- OUTSIDE RECORDS SUMMARY | 2024-10-22 00:57 | XMS_ITS | Encounter Summary ---
Author Organization [facility] Address [address] [facility] [address] [place] [address] Care Team Providers Care Poising Inspector Name Role Phone Priscilla Barrera MD Primary Care Provider [phone] Encounter Details Date Type Department Care Team (Late st Contact Info) Description 02/04/2018 Telephone [facility] [address] [address] [address] [place] [address] Andrade Brown MD [facility] [place] [address] Social History Tobacco Use Types Packs/Day Years Used Date Smoking Tobacco: Former Smokeless Tobacco: Never Alcohol Use Standard Drinks/Week Comments Yes 0 (1 standard drink = 0.6 oz pur e alcohol) Comments Unknown Sex and Gender Information Value Date Recorded Sex Assigned at Not on file Legal Sex Female 8:30 AM GANG SUPERVISOR PIPE LINES Gender Identity Female 10/06/2021 4:28 PM GANG SUPERVISOR PIPE LINES Sexual Orientation Choose not to disclose 2020 4:28 PM GANG SUPERVISOR PIPE LINES documented as of this encounter Miscellaneous Notes [...] back number is and reference # is [id number] documented in this encounter Plan of Treatment Not on file documented as of this encounter Visit Diagnoses Not on filedocumented in this encounter Care Teams Poising Inspector Relationship Specialty Start Date End Date Priscilla Barrera MD [address] [place] [address] PCP - General 01/08/17 02/07/19 documented as of this encounter
--- OUTSIDE RECORDS SUMMARY | 2024-10-22 00:57 | XMS_ITS | Encounter Summary ---
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 Social History Tobacco Use Types Packs/Day Years Used Date Smoking Tobacco: Former Smokeless Tobacco: Never Alcohol Use Standard Drinks/Week Comments Yes 0 (1 standard drink = 0.6 oz pur e alcohol) Comments Unknown Sex and Gender Information Value Date Recorded Sex Assigned at Not on file Legal Sex Female 8:30 AM CLOTH BALE HEADER Gender Identity Female 10/06/2021 4:28 PM CLOTH BALE HEADER Sexual Orientation Choose not to disclose 2020 4:28 PM CLOTH BALE HEADER documented as of this encounter Plan of Treatment Not on file documented as of this encounter Procedures Procedure Name Priority Date/Time Associated Diagnosis Comments PROTIME-INR Routine 08/27/2017 3:08 PM CLOTH BALE HEADER documented in this encounter Results * (ABNORMAL) Protime-INR (08/27/2017 3:08 PM CLOTH BALE HEADER) INR 2.36(A) 0.9 - 1.1 EXTERNAL LAB Blood specimen (specimen) us Historical Provider LAB BLOOD ORDERABLES Noris mauro Result EXTERNAL LAB documented in this encounter Visit Diagnoses Diagnosis Paroxysmal atrial fibrillation (CMS/HCC) (HCC) Atrial fibrillation care home current use of anticoagulant therapy documented in this encounter Care Teams Last Cleaner Relationship Specialty Start Date End Date Priscilla Barrera MD [address] [place] [address] PCP - General 01/08/17 02/07/19 documented as of this encounter
--- OUTSIDE RECORDS SUMMARY | 2024-10-22 00:57 | XMS_ITS | Encounter Summary ---
Author Organization [facility] Medical Group Address [address] [facility] [address] [place] [address] Care Team Providers Care Php Wordpress Developer Name Role Phone Priscilla Barrera MD Primary Care Provider [phone] Encounter Details Date Type Department Care Team (Latest Contact Info) Description 07/23/2017 Anticoagulation Visit [facility] [address] [facility] [address] [place] [address] Andrade Brown MD [facility] [place] [address] Paroxysmal atrial fibrillation (CMS/HCC) Social History Tobacco Use Types Packs/Day Years Used Date Smoking Tobacco: Former Smokeless Tobacco: Never Alcohol Use Standard Drinks/Week Comments Yes 0 (1 standard drink = 0.6 oz pur e alcohol) Comments Unknown Sex and Gender Information Value Date Recorded Sex Assigned at Not on file Legal Sex Female 8:30 AM MOLDED GOODS INSPECTOR TRIMMER Gender Identity Female 10/06/2021 4:28 PM MOLDED GOODS INSPECTOR TRIMMER Sexual Orientation Choose not to disclose 2020 4:28 PM MOLDED GOODS INSPECTOR TRIMMER documented as of this encounter Plan of Treatment Not on file documented as of this encounter Procedures Procedure Name Priority Date/Time Associated Diagnosis Comments PROTIME-INR Routine 07/23/2017 8:50 AM CDT documented in this encounter Results * (ABNORMAL) Protime-INR (07/23/2017 8:50 AM CDT) INR 2.16(A) 0.9 - 1.1 EXTERNAL LAB Comment:pt [phone] Blood specimen (specimen) us Historical Provider LAB BLOOD ORDERABLES Noris l Result EXTERNAL LAB documented in this encounter Visit Diagnoses Diagnosis Paroxysmal atrial fibrillation (CMS/HCC) (HCC) Atrial fibrillation documented in this encounter Care Teams Php Wordpress Developer Relationship Specialty Start Date End Date Priscilla Barrera MD [address] [place] [address] PCP - General 01/08/17 02/07/19 documented as of this encounter
--- OUTSIDE RECORDS SUMMARY | 2024-10-22 00:57 | XMS_ITS | Encounter Summary ---
Author Organization [facility] Medical Group Address [address] [facility] [address] [place] [address] Care Team Providers Care Deodorizer Operator Name Role Phone Priscilla Barrera MD Primary Care Provider [phone] Encounter Details Date Type Department Care Team (Late st Contact Info) Description 11/26/2017 Telephone Arrhythmia Center [address] [facility] [address] [address] Oracio Love MD [address] [facility] [address] [place] [address] Social History Tobacco Use Types Packs/Day Years Used Date Smoking Tobacco: Former Smokeless Tobacco: Never Alcohol Use Standard Drinks/Week Comments Yes 0 (1 standard drink = 0.6 oz pur e alcohol) Comments Unknown Sex and Gender Information Value Date Recorded Sex Assigned at Not on file Legal Sex Female 8:30 AM SHREDDING SPECIALIST Gender Identity Female 10/06/2021 4:28 PM SHREDDING SPECIALIST Sexual Orientation Choose not to disclose 2020 4:28 PM SHREDDING SPECIALIST documented as of this encounter Miscellaneous Notes * Telephone Encounter - Caitlyn Li - 11/26/2017 12:54 PM CST SUBHASH - Kath out of the office on 02/17/18 & need to r/s DDING SPECIALIST documented in this encounter Plan of Treatment Not on file documented as of this encounter Visit Diagnoses Not on filedocumented in this encounter Care Teams Deodorizer Operator Relationship Specialty Start Date End Date Priscilla Barrera MD [address] [place] [address] PCP - General 01/08/17 02/07/19 documented as of this encounter
--- OUTSIDE RECORDS SUMMARY | 2024-10-22 00:57 | XMS_ITS | Encounter Summary ---
Author Organization [facility] Address [address] [facility] [address] [place] [address] Care Team Providers Care Daily Release And Dupe Printer Name Role Phone Priscilla Barrera MD Primary Care Provider [phone] Reason for Visit * Reason Comments Atrial Fibrillation Encounter Details Date Type Department Care Team (Late st Contact Info) Description 02/23/2018 2:00 PM CDT Office Visit Ar[facility]hythmia Center [address] [facility] [address] [place] [address] Kath Byrd, RAMONA [address] [facility] [address] [place] [address] Paroxysmal atrial fibrillation (CMS/HCC) (Primary [...] on file Legal Sex Female 8:30 AM RESERVE OPERATOR Gender Identity Female 10/06/2021 4:28 PM RESERVE OPERATOR Sexual Orientation Choose not to disclose 2020 4:28 PM RESERVE OPERATOR documented as of this encounter Last [...] not included. Patient Education A-fib (Atrial Fibrillation) SEX WORKER OR ESCORT: Atrial fibrillation (a-fib) is an irregular heartbeat. [...] in your arm or leg. Contact your general foundry worker or healthcare provider if: ?? Your target [...] plan for you. Follow up with your general foundry worker as directed: You will need regular blood tests and monitoring. Write down your questions so you remember to ask them during your visits. ?? 2016 [employer]. Information is for End User's use only and may not be sold, redistributed or otherwise used for commercial purposes. All illustrations and images included in CareNotes?? are the copyrighted property of [employer]. or [employer]. The above information is an braiding machine tender only. It is not intended as medical advice for individual conditions or treatments. Talk to your doctor, nurse or pharmacist before following any medical regimen to see if it is safe and effective for you. documented in this encounter Progress Notes * Kath Byrd NP - 02/23/2018 2:00 PM CDT [facility] Arrhythmia Center [address] [place] [address], [address] [address] Patient Name: Quin Talley Date of : 1935 Primary Physician: Priscilla Barrera MD This note was dictated with voice-recognition software, and grocery manager errors may be present. Subjective/Objective Patient ID: Quin Talley is a 82 y.o. female Chief Complaint Atrial Fibrillation HPI Ms. Talley presented to the [facility] Arrhythmia Center on 02/23/2018, [...] is recommended that he remain anticoagulated for thromboprophylaxis.[id number]. Kath Byrd NP 02/23/2018 documented in this [...] is recommended that he remain anticoagulated for thromboprophylaxis.[id number]. documented in this encounter Plan of Treatment [...] documented as of this encounter Care Teams Daily Release And Dupe Printer Relationship Specialty Start Date End Date Priscilla Barrera MD [facility] [address] PCP - General 01/08/17 02/07/19 documented as of this encounter
--- OUTSIDE RECORDS SUMMARY | 2024-10-22 00:57 | XMS_ITS | Encounter Summary ---
Author Organization [facility] Medical Group Address [address] [facility] [address] [place] [address] Care Team Providers Care Front End Wheel Loader Operator Name Role Phone Priscilla Barrera MD Primary Care Provider [phone] Encounter Details Date Type Department Care Team (Late st Contact Info) Description 04/28/2018 Orders Only [facility] [address] [facility] [address] [place] [address] Provider, MD Peggy [address] [place] [address] Social History Tobacco Use Types Packs/Day Years Used Date Smoking Tobacco: Former Smokeless Tobacco: Never Alcohol Use Standard Drinks/Week Comments Yes 0 (1 standard drink = 0.6 oz pur e alcohol) Comments Unknown Sex and Gender Information Value Date Recorded Sex Assigned at Not on file Legal Sex Female 8:30 AM INTERTYPE OPERATOR Gender Identity Female 10/06/2021 4:28 PM INTERTYPE OPERATOR Sexual Orientation Choose not to disclose 2020 4:28 PM INTERTYPE OPERATOR documented as of this encounter Plan [...] on filedocumented in this encounter Care Teams Front End Wheel Loader Operator Relationship Specialty Start Date End Date Priscilla Barrera MD [facility] [place] [address] PCP - General 01/08/17 02/07/19 documented as of this encounter
--- OUTSIDE RECORDS SUMMARY | 2024-10-22 00:57 | XMS_ITS | Encounter Summary ---
Author Organization [facility] Medical [facility] Address [address] [facility] [address] [place] [address] Care Team Providers Care Underwear Finisher Name Role Phone Priscilla Barrera MD Primary Care Provider [phone] Reason for Visit * Reason Comments Atrial Fibrillation Encounter Details Date Type Department Care Team (Latest Contact Info) Description 08/19/2017 11:00 AM COLLISION WORKER Office Visit Arrhythmia Center [address] [facility] [address] [place] [address] Kath Byrd, COURIER [address] [facility] [address] [place] [address] Paroxysmal atrial fibrillation (CMS/HCC) (Primary Dx); HTN (hypertension), benign; 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 Social History Tobacco Use Types Packs/Day Years Used Date Smoking Tobacco: Former Smokeless Tobacco: Never Alcohol Use Standard Drinks/Week Comments Yes 0 (1 standard drink = 0.6 oz pur e alcohol) Comments Unknown Sex and Gender Information Value Date Recorded Sex Assigned at Not on file Legal Sex Female 8:30 AM COLLISION WORKER Gender Identity Female 10/06/2021 4:28 PM COLLISION WORKER Sexual Orientation Choose not to disclose 2020 4:28 PM COLLISION WORKER documented as of this encounter Last Filed Vital Signs Vital Sign Reading Time Taken Comments Blood Pressure 140/68 08/19/2017 9:55 AM COLLISION WORKER Pulse 59 08/19/2017 9:55 AM COLLISION WORKER Temperature - - Respiratory Rate - - Oxygen Saturation - - Inhaled Oxygen Concentration - - Weight 89.8 kg (198 lb) 08/19/2017 9:55 AM COLLISION WORKER Height 167.6 cm (5' 6 ) 08/19/2017 9:55 AM COLLISION WORKER Body Mass Index 31.96 08/19/2017 9:55 AM COLLISION WORKER documented in this encounter Patient Instructions * Patient Instructions* Aimee Gomez MA - 08/19/2017 9:39 AM COLLISION WORKER Images from the original note were not included. Patient Education A-fib (Atrial Fibrillation) FLUE LINING DIPPER: Atrial fibrillation (a-fib) is an irregular heartbeat. [...] in your arm or leg. Contact your rn spine or healthcare provider if: ?? Your target [...] plan for you. Follow up with your rn spine as directed: You will need regular blood tests and monitoring. Write down your questions so you remember to ask them during your visits. ?? 2016 [employer]. Information is for End User's use only and may not be sold, redistributed or otherwise used for commercial purposes. All illustrations and images included in CareNotes?? are the copyrighted property of [employer]. or [employer]. The above information is an nursing home aide only. It is not intended as medical advice for individual conditions or treatments. Talk to your doctor, nurse or pharmacist before following any medical regimen to see if it is safe and effective for you. ISION WORKER ISION WORKER documented in this encounter Progress Notes * [...] 12 lead 2. HTN (hypertension), benign 3. [facility] current use of anticoagulant therapy Assessment & Plan: She remains anticoagulated on Coumadin. She has a [id number] score of 4, therefore it is recommended that she remain anticoagulated for thromboprophylaxis. ISION WORKER documented in this encounter Miscellaneous Notes * Assessment & Plan Note - Kath Byrd NP - 08/19/2017 10:05 AM COLLISION WORKER Associated Problem(s): Atrial fibrillation (CMS/HCC) [I48.91] Post [...] an office visit and 12 lead EKG. 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 She has a PDG4FG-ENDp score of 4, therefore it is recommended that she remain anticoagulated for thromboprophylaxis. ISION WORKER documented in this encounter Plan of [...] fibrillation HTN (hypertension), benign Essential hypertension, benign [facility] current use of anticoagulant therapy documented in this encounter Care Teams Underwear Finisher Relationship Specialty Start Date End Date Priscilla Barrera MD [address] [place] [address] PCP - General 01/08/17 02/07/19 documented as of this encounter
--- OUTSIDE RECORDS SUMMARY | 2024-10-22 00:57 | XMS_ITS | Encounter Summary ---
Author Organization [facility] Medical Group Address [address] [facility] [address] [place] [address] Care Team Providers Care Supervisor Accounts Receivable Name Role Phone Priscilla Barrera MD Primary Care Provider [phone] Reason for Visit * Reason Comments Follow-up 4 mo follow up a-fib Encounter Details Date Type Department Care Team (Latest Contact Info) Description 04/07/2017 10:45 AM CDT Office Visit [facility] [address] [facility] [address] [place] [address] Andrade Brown MD [facility] [place] [id number] Hyperlipidemia, unspecified hyperlipidemia type (Primary Dx); Paroxysmal atrial fibrillation (CMS/HCC); 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 PAD (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/HCC) Mild femoral disease 5. 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 goal <100 6. HTN (hypertension), benign At goal PLAN/RECOMMENDATIONS No changes to her cardiac regimen. 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
--- OUTSIDE RECORDS SUMMARY | 2024-10-22 00:57 | XMS_ITS | Encounter Summary ---
Author Organization [facility] Medical Group Address [address] [facility] [address] [place] [address] Care Team Providers Care Production Engineer Track Name Role Phone Priscilla Barrera MD Primary Care Provider [phone] Encounter Details Date Type Department Care Team (Late st Contact Info) Description 01/28/2017 Orders Only Arrhythmia Center [address] [facility] [address], [place] [address] Oracio Love MD [address] [facility] [address] [place] [address] Social History Tobacco Use Types Packs/Day Years Used Date Smoking Tobacco: Former Cigarettes Q uit: 10/11/1977 Alcohol Use Standard Drinks/Week Comments Yes 0 (1 standard drink = 0.6 oz pur e alcohol) Comments Unknown Sex and Gender Information Value Date Recorded Sex Assigned at Not on file Legal Sex Female 8:30 AM TIME STUDY TECHNOLOGIST Gender Identity Female 10/06/2021 4:28 PM TIME STUDY TECHNOLOGIST Sexual Orientation Choose not to disclose 2020 4:28 PM TIME STUDY TECHNOLOGIST documented as of this encounter Plan of Treatment Not on file documented as of this encounter Procedures Procedure Name Priority Date/Time Associated Diagnosis Comments DIFFERENTIAL AUTO Routine 01/28/2017 5:5 3 AM CDT documented in this encounter Results * Differential, auto (01/28/2017 5:53 AM CDT) Neutrophil pct 69.5 44.0 - 80.0 % [facility] Imm gran pct 0.4 0.0 - 1.0 % [facility] Lymphocyte pct 16.9 13.0 - 44.0 % [facility] Monocyte pct 10.1 2.0 - 11.0 % [facility] Eosinophil pct 2.5 0.0 - 6.0 % [facility] Basophil pct 0.6 0.0 - 3.0 % [facility] Neutrophil abs 3.28 1.70 - 6.50 K/cumm [facility] Imm gran abs 0.02 0.00 - 0.10 K/cumm [facility] Lymphocyte abs 0.80 0.80 - 3.30 K/cumm [facility] Monocyte abs 0.48 0.20 - 0.80 K/cumm [facility] Eosinophil abs 0.12 0.00 - 0.50 K/cumm [facility] Basophil abs 0.03 0.00 - 0.10 K/cumm [facility] Blood specimen (specimen) 01/28/2017 5:53 AM CDT 01/28/2017 6:12 AM CDT us Oracio Love MD LAB BLOOD ORDERABLES Fi nal Result [facility] [address] Department [place] [address] documented in this encounter Visit Diagnoses Not on filedocumented in this encounter Care Teams Production Engineer Track Relationship Specialty Start Date End Date Priscilla Barrera MD [address] [place] [address] PCP - General 01/08/17 02/07/19 documented as of this encounter
--- OUTSIDE RECORDS SUMMARY | 2024-10-22 00:57 | XMS_ITS | Encounter Summary ---
Author Organization [facility] Medical [facility] Address [address] [facility] [address] [place] [address] Care Team Providers Care Balance Screwhead Polisher Name Role Phone Priscilla Barrera MD Primary Care Provider [phone] Encounter Details Date Type Department Care Team (Late st Contact Info) Description 01/28/2017 Orders Only Arrhythmia Center [address] [facility] [address], [place] [address] Oracio Love MD [address] [facility] [address] [place] [address] Social History Tobacco Use Types Packs/Day Years Used Date Smoking Tobacco: Former Cigarettes Q uit: 10/11/1977 Alcohol Use Standard Drinks/Week Comments Yes 0 (1 standard drink = 0.6 oz pur e alcohol) Comments Unknown Sex and Gender Information Value Date Recorded Sex Assigned at Not on file Legal Sex Female 8:30 AM TRANSFER OPERATOR Gender Identity Female 10/06/2021 4:28 PM TRANSFER OPERATOR Sexual Orientation Choose not to disclose 2020 4:28 PM TRANSFER OPERATOR documented as of this encounter Plan of Treatment Not on file documented as of this encounter Procedures Procedure Name Priority Date/Time Associated Diagnosis Comments BASIC METABOLIC PANEL Routine 01/28/2017 5:53 AM CDT documented in this encounter Results * (ABNORMAL) Basic metabolic panel (01/28/2017 5:53 AM CDT) Sodium 141 135 - 145 mmol/L [facility] Potassium, pl 3.3(L) 3.6 - 5.2 mmol/L [facility] Chloride 102 97 - 110 mmol/L [facility] CO2 24 22 - 32 mmol/L [facility] BUN 13.8 8.0 - 25.0 mg/dL [facility] Glucose 108 70 - 199 mg/dL [facility] Comment: Interpretive Data Glucose is assumed to be non-fasting. Current interpretive data was last revised 2017. Creatinine 1.21(H) 0.60 - 1.10 mg/dL [facility] Calcium 7.7(L) 8.5 - 10.3 mg/dL [facility] Anion gap 15 2 - 15 mmol/L [facility] Blood specimen (specimen) 01/28/2017 5:53 AM CDT 01/28/2017 6:11 AM CDT us Oracio Love MD LAB BLOOD ORDERABLES Fi nal Result [facility] [address] Department [place] [address] documented in this encounter Visit Diagnoses Not on filedocumented in this encounter Care Teams Balance Screwhead Polisher Relationship Specialty Start Date End Date Priscilla Barrera MD [address] [place] [address] PCP - General 01/08/17 02/07/19 documented as of this encounter
--- OUTSIDE RECORDS SUMMARY | 2024-10-22 00:57 | XMS_ITS | Encounter Summary ---
Author Organization [facility] Healthcare Address [address] [place] [address] Care Team Providers Care Milking Machine Mechanic Name Role Phone Priscilla Barrera MD Primary Care Provider [phone] Kali Hunt MD Primary Care Provider [phone] Devaughn Macias MD Primary Care Provider Denis Platt MD Primary Care Provide r Gideon Campbell MD Primary Care Provider [phone] Encounter Details Date Type Department Care Team (Late st Contact Info) Description 12/15/2017 Orders Only [facility] Information Management [address] [place] [address] Scanning, Provider Social History Tobacco Use Types Packs/Day Years Used Date Smoking Tobacco: Former Smokeless Tobacco: Never Alcohol Use Standard Drinks/Week Comments Yes 0 (1 standard drink = 0.6 oz pur e alcohol) Comments Unknown Sex and Gender Information Value Date Recorded Sex Assigned at Not on file Legal Sex Female 8:30 AM FIELD SALES SPECIALIST Gender Identity Female 10/06/2021 4:28 PM FIELD SALES SPECIALIST Sexual Orientation Choose not to disclose 2020 4:28 PM FIELD SALES SPECIALIST documented as of this encounter Plan of Treatment Not on file documented as of this encounter Procedures Procedure Name Priority Date/Time Associated Diagnosis Comments SCAN - RADIOLOGY/IMAGING 12/18/2017 1:20 AM FIELD SALES SPECIALIST documented in this encounter Results * SCAN - RADIOLOGY/IMAGING (12/18/2017 1:20 AM FIELD SALES SPECIALIST) Anatomical Region Laterality Modality Other us Provider Scanning Edited Result - Final documented in this encounter Visit Diagnoses Not on filedocumented in this encounter Care Teams Milking Machine Mechanic Relationship Specialty Start Date End Date Priscilla Barrera MD [address] [place] [address] PCP - General 01/08/17 02/07/19 Kali Hunt MD [address] [place] [address] PCP - General Family Medicine 02/08/19 01/30/20 Devaughn Macias MD [address] [place] [address] PCP - General Family Medicine 01/31/20 01/13/22 Denis Platt MD [address] [place] [address] PCP - General Family Medicine 01/14/22 07/18/23 Gideon Campbell MD [address] [place] [address] DR ROJAS [address] [place] [address] PCP - General Family Medicine 07/19/23 documented as of this encounter
--- OUTSIDE RECORDS SUMMARY | 2024-10-22 00:57 | XMS_ITS | Encounter Summary ---
Author Organization [facility] Address [address] [facility] [address] [place] [address] Care Team Providers Care Court Crier Name Role Phone Priscilla Barrera MD Primary Care Provider [phone] Encounter Details Date Type Department Care Team (Latest Contact Info) Description 01/12/2018 Anticoagulation Visit [facility] [address] [facility] [address] [place] [address] Andrade Brown MD [facility] [place] [address] Paroxysmal atrial fibrillation (CMS/HCC); nursing home current use of anticoagulant therapy Social History Tobacco Use Types Packs/Day Years Used Date Smoking Tobacco: Former Smokeless Tobacco: Never Alcohol Use Standard Drinks/Week Comments Yes 0 (1 standard drink = 0.6 oz pur e alcohol) Comments Unknown Sex and Gender Information Value Date Recorded Sex Assigned at Not on file Legal Sex Female 8:30 AM SOFT HAT BINDER Gender Identity Female 10/06/2021 4:28 PM SOFT HAT BINDER Sexual Orientation Choose not to disclose 2020 4:28 PM SOFT HAT BINDER documented as of this encounter Plan of [...] Paroxysmal atrial fibrillation (CMS/HCC) (HCC) Atrial fibrillation nursing home current use of anticoagulant therapy documented in this encounter Care Teams Court Crier Relationship Specialty Start Date End Date Priscilla Barrera MD [address] [place] [address] PCP - General 01/08/17 02/07/19 documented as of this encounter
--- OUTSIDE RECORDS SUMMARY | 2024-10-22 00:57 | XMS_ITS | Encounter Summary ---
Author Organization [facility] Address [address] [place] [address] Care Team Providers Care Stove Carriage Operator Name Role Phone Priscilla Barrera MD Primary Care Provider [phone] Encounter Details Date Type Department Care Team (Late st Contact Info) Description 04/27/2018 Telephone [facility] [address] [address] [address] [place] [address] Andrade Brown MD [facility] [place] [address] Social History Tobacco Use Types Packs/Day Years Used Date Smoking Tobacco: Former Smokeless Tobacco: Never Alcohol Use Standard Drinks/Week Comments Yes 0 (1 standard drink = 0.6 oz pur e alcohol) Comments Unknown Sex and Gender Information Value Date Recorded Sex Assigned at Not on file Legal Sex Female 8:30 AM TANK BUILDER Gender Identity Female 10/06/2021 4:28 PM TANK BUILDER Sexual Orientation Choose not to disclose 2020 4:28 PM TANK BUILDER documented as of this encounter Miscellaneous Notes * Telephone Encounter - Jacque Herrera RN - 04/27/2018 12:04 PM CDT Called patient with INR result. States that [facility] never received standing order. Order [facility]axed to [facility] [phone]. documented in this encounter Plan of Treatment Not on file documented as of this encounter Visit Diagnoses Not on filedocumented in this encounter Care Teams Stove Carriage Operator Relationship Specialty Start Date End Date Priscilla Barrera MD [address] [place] [address] PCP - General 01/08/17 02/07/19 documented as of this encounter
--- OUTSIDE RECORDS SUMMARY | 2024-10-22 00:57 | XMS_ITS | Encounter Summary ---
Author Organization [facility] Medical [facility] Address [address] [place] [address] Care Team Providers Care Project Builder Name Role Phone Priscilla Barrera MD Primary Care Provider [phone] Encounter Details Date Type Department Care Team (Latest Contact Info) Description 04/26/2017 Anticoagulation Visit [facility] [address] [facility] [address] [place] [address] Andrade Brown MD [facility] [place] [address] Paroxysmal atrial fibrillation (CMS/HCC); [facility] (current) use of anticoagulants Social History Tobacco Use Types Packs/Day Years Used Date Smoking Tobacco: Former Cigarettes Q uit: 10/11/1977 Alcohol Use Standard Drinks/Week Comments Yes 0 (1 standard drink = 0.6 oz pur e alcohol) Comments Unknown Sex and Gender Information Value Date Recorded Sex Assigned at Not on file Legal Sex Female 8:30 AM LAW FIRM ADMINISTRATOR Gender Identity Female 10/06/2021 4:28 PM LAW FIRM ADMINISTRATOR Sexual Orientation Choose not to disclose 2020 4:28 PM LAW FIRM ADMINISTRATOR documented as of this encounter Plan [...] Paroxysmal atrial fibrillation (CMS/HCC) (HCC) 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
--- OUTSIDE RECORDS SUMMARY | 2024-10-22 00:57 | XMS_ITS | Encounter Summary ---
Author Organization [facility] Address [address] [place] [address] Care Team Providers Care Pretzel Twister Name Role Phone Priscilla Barrera MD Primary Care Provider [phone] Encounter Details Date Type Department Care Team (Late st Contact Info) Description 01/27/2017 Orders Only [facility] [address] [address], [place] [address] Oracio Love MD [address] [facility] [address] [place] [address] Social History Tobacco Use Types Packs/Day Years Used Date Smoking Tobacco: Former Cigarettes Q uit: 10/11/1977 Alcohol Use Standard Drinks/Week Comments Yes 0 (1 standard drink = 0.6 oz pur e alcohol) Comments Unknown Sex and Gender Information Value Date Recorded Sex Assigned at Not on file Legal Sex Female 8:30 AM SEAL DELIVERY VEHICLE TEAM TECHNICIAN Gender Identity Female 10/06/2021 4:28 PM SEAL DELIVERY VEHICLE TEAM TECHNICIAN Sexual Orientation Choose not to disclose 2020 4:28 PM SEAL DELIVERY VEHICLE TEAM TECHNICIAN documented as of this encounter Plan of Treatment Not on file documented as of this encounter Procedures Procedure Name Priority Date/Time Associated Diagnosis Comments EGFR Routine 01/27/2017 6:41 AM CDT documented in this encounter Results * eGFR (01/27/2017 6:41 AM CDT) eGFR 42 mL/min/1.7 3 m2 [facility] Comment: Interpretive Data Reference Interval Normal ?>/= 90 mL/min/1.73m2 Mildly decreased* ? 60 - 89 mL/min/1.73m2 Mildly to moderately decreased ?45 - 59 mL/min/1.73m2 Moderately to severely decreased ??30 - 44 mL/min/1.73m2 Severely decreased ?15 - 29 mL/min/1.73m2 Kidney Failure ?< 15 ??mL/min/1.73m2 *Relative to young adult level If -[place] multiply value by 1.16. Estimated glomerular filtration [...] MD LAB BLOOD ORDERABLES Fi nal Result [facility] [address] Department of Laboratories [place], [place] [id number] documented in this encounter Visit Diagnoses Not on filedocumented in this encounter Care Teams Pretzel Twister Relationship Specialty Start Date End Date Priscilla Barrera MD [address] [place] [address] PCP - General 01/08/17 02/07/19 documented as of this encounter
--- OUTSIDE RECORDS SUMMARY | 2024-10-22 00:57 | XMS_ITS | Encounter Summary ---
Author Organization [facility] Healthcare Address [address] [place] [address] Care Team Providers Care Chief Bank Examiner Name Role Phone Priscilla Barrera MD Primary Care Provider [phone] Encounter Details Date Type Department Care Team (Latest Contact Info) Description 01/27/2017 6:03 AM CDT - 01/28/2017 12:31 PM CDT Hospital Encounter [facility] [address] [place] [address] Oracio oLve MD [address] [address] Discharge Disposition: Discharge to home or self care Social History Tobacco Use Types Packs/Day Years Used Date Smoking Tobacco: Former Cigarettes Q uit: 10/11/1977 Alcohol Use Standard Drinks/Week Comments Yes 0 (1 standard drink = 0.6 oz pur e alcohol) Comments Unknown Sex and Gender Information Value Date Recorded Sex Assigned at Not on file Legal Sex Female 8:30 AM SINGE MACHINE OPERATOR Gender Identity Female 10/06/2021 4:28 PM SINGE MACHINE OPERATOR Sexual Orientation Choose not to disclose 2020 4:28 PM SINGE MACHINE OPERATOR documented as of this encounter Last [...] on filedocumented in this encounter Care Teams Chief Bank Examiner Relationship Specialty Start Date End Date Priscilla Barrera MD [address] [place] [address] PCP - General 01/08/17 02/07/19 documented as of this encounter
--- OUTSIDE RECORDS SUMMARY | 2024-10-22 00:57 | XMS_ITS | Encounter Summary ---
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 Social History Tobacco Use Types Packs/Day Years Used Date Smoking Tobacco: Former Smokeless Tobacco: Never Alcohol Use Standard Drinks/Week Comments Yes 0 (1 standard drink = 0.6 oz pur e alcohol) Comments Unknown Sex and Gender Information Value Date Recorded Sex Assigned at Not on file Legal Sex Female 8:30 AM JEWELSMITH Gender Identity Female 10/06/2021 4:28 PM JEWELSMITH Sexual Orientation Choose not to disclose 2020 4:28 PM JEWELSMITH documented as of this encounter Plan of [...] therapy documented in this encounter Care Teams Mill Supervisor Relationship Specialty Start Date End Date Priscilla Barrera MD [address] [place] [address] PCP - General 01/08/17 02/07/19 documented as of this encounter
--- OUTSIDE RECORDS SUMMARY | 2024-10-22 00:57 | XMS_ITS | Encounter Summary ---
Author Organization [facility] Address [address] [facility] [address] [place] [address] Care Team Providers Care Financial Investment Adviser Name Role Phone Priscilla Barrera MD Primary Care Provider [phone] Encounter Details Date Type Department Care Team (Late st Contact Info) Description 05/28/2017 Telephone [facility] [address] [address] [address] [place] [address] Andrade Brown MD [facility] [place] [address] Social History Tobacco Use Types Packs/Day Years Used Date Smoking Tobacco: Former Smokeless Tobacco: Never Alcohol Use Standard Drinks/Week Comments Yes 0 (1 standard drink = 0.6 oz pur e alcohol) Comments Unknown Sex and Gender Information Value Date Recorded Sex Assigned at Not on file Legal Sex Female 8:30 AM PARTS SALES ASSOCIATE Gender Identity Female 10/06/2021 4:28 PM PARTS SALES ASSOCIATE Sexual Orientation Choose not to disclose 2020 4:28 PM PARTS SALES ASSOCIATE documented as of this encounter Miscellaneous Notes * Telephone Encounter - Nalini Zazueta RN - 05/28/2017 11:09 AM CDT Will fax standing order to [facility] per request documented in this encounter Plan of Treatment Not on file documented as of this encounter Visit Diagnoses Not on filedocumented in this encounter Care Teams Financial Investment Adviser Relationship Specialty Start Date End Date Priscilla Barrera MD [address] [place] [address] PCP - General 01/08/17 02/07/19 documented as of this encounter
--- OUTSIDE RECORDS SUMMARY | 2024-10-22 00:57 | XMS_ITS | Encounter Summary ---
Author Organization [facility] Medical [facility] Address [address] [place] [address] Care Team Providers Care Sap Bi Developer Name Role Phone Priscilla Barrera MD Primary Care Provider [phone] Reason for Visit * Reason Comments Atrial Fibrillation Peripheral Artery Disease Hypertension Hyperlipidemia Encounter Details Date Type Department Care Team (Latest Contact Info) Description 04/20/2018 9:30 AM CDT Office Visit [facility] [address] [facility] [address] [place] [address] Andrade Brown MD [facility] [id number] HTN (hypertension), benign (Primary Dx); 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; PAD (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) ([facility]) Social History Tobacco Use Types Packs/Day Years Used Date Smoking Tobacco: Former Smokeless Tobacco: Never Alcohol Use Standard Drinks/Week Comments Yes 0 (1 standard drink = 0.6 oz pur e alcohol) Comments Unknown Sex and Gender Information Value Date Recorded Sex Assigned at Not on file Legal Sex Female 8:30 AM CONE CHOCOLATE DIPPER Gender Identity Female 10/06/2021 4:28 PM CONE CHOCOLATE DIPPER Sexual Orientation Choose not to disclose 2020 4:28 PM CONE CHOCOLATE DIPPER documented as of this encounter Last Filed [...] PVI ablation x2 with recent success 3. 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 PAD (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/HCC) Mild femoral disease 5. 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 goal <100 6. HTN (hypertension), benign At goal 7.. Mild carotid artery disease PLAN/RECOMMENDATIONS 1. Stop simvastatin because of her rash. 2. 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
--- OUTSIDE RECORDS SUMMARY | 2024-10-22 00:57 | XMS_ITS | Encounter Summary ---
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 Social History Tobacco Use Types Packs/Day Years Used Date Smoking Tobacco: Former Smokeless Tobacco: Never Alcohol Use Standard Drinks/Week Comments Yes 0 (1 standard drink = 0.6 oz pur e alcohol) Comments Unknown Sex and Gender Information Value Date Recorded Sex Assigned at Not on file Legal Sex Female 8:30 AM PYTHON PROGRAMMER Gender Identity Female 10/06/2021 4:28 PM PYTHON PROGRAMMER Sexual Orientation Choose not to disclose 2020 4:28 PM PYTHON PROGRAMMER documented as of this encounter Plan of [...] Paroxysmal atrial fibrillation (CMS/HCC) (HCC) 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
--- OUTSIDE RECORDS SUMMARY | 2024-10-22 00:57 | XMS_ITS | Encounter Summary ---
Author Organization [facility] Medical [facility] Address [address] [facility] [address] [place] [address] Care Team Providers Care Industrial Specialist Name Role Phone Priscilla Barrera MD Primary Care Provider [phone] Encounter Details Date Type Department Care Team (Late st Contact Info) Description 04/07/2018 Telephone [facility] [address] [address] Andrade Brown MD [address] [place], [place] [address] Social History Tobacco Use Types Packs/Day Years Used Date Smoking Tobacco: Former Smokeless Tobacco: Never Alcohol Use Standard Drinks/Week Comments Yes 0 (1 standard drink = 0.6 oz pur e alcohol) Comments Unknown Sex and Gender Information Value Date Recorded Sex Assigned at Not on file Legal Sex Female 8:30 AM PEOPLESOFT PROGRAMMER Gender Identity Female 10/06/2021 4:28 PM PEOPLESOFT PROGRAMMER Sexual Orientation Choose not to disclose 2020 4:28 PM PEOPLESOFT PROGRAMMER documented as of this encounter Miscellaneous Notes * Telephone Encounter - Nalini Zazueta RN - 04/07/2018 10:01 AM CDT Faxed standing order for PT/INR to [facility]. * Telephone Encounter - Yudelka Marie - 04/07/2018 9:42 AM CDT Needs new standing orders for blood work sent to [facility] lab. documented in this encounter Plan of Treatment Not on file documented as of this encounter Visit Diagnoses Not on filedocumented in this encounter Care Teams Industrial Specialist Relationship Specialty Start Date End Date Priscilla Barrera MD [address] [place] [address] PCP - General 01/08/17 02/07/19 documented as of this encounter
--- OUTSIDE RECORDS SUMMARY | 2024-10-22 00:57 | XMS_ITS | Encounter Summary ---
Author Organization [facility] Address [address] [facility] [address] [place] [address] Care Team Providers Care Inspector Eyeglass Name Role Phone Priscilla Barrera MD Primary Care Provider [phone] Encounter Details Date Type Department Care Team (Latest Contact Info) Description 03/24/2018 Anticoagulation Visit [facility] [address] [facility] [address] [place] [address] Andrade Brown MD [facility] [place] [address] Paroxysmal atrial fibrillation (CMS/HCC); [facility] current use of anticoagulant therapy Social History Tobacco Use Types Packs/Day Years Used Date Smoking Tobacco: Former Smokeless Tobacco: Never Alcohol Use Standard Drinks/Week Comments Yes 0 (1 standard drink = 0.6 oz pur e alcohol) Comments Unknown Sex and Gender Information Value Date Recorded Sex Assigned at Not on file Legal Sex Female 8:30 AM LEATHER CUTTER Gender Identity Female 10/06/2021 4:28 PM LEATHER CUTTER Sexual Orientation Choose not to disclose 2020 4:28 PM LEATHER CUTTER documented as of this encounter Plan [...] documented in this encounter Care Teams Inspector Eyeglass Relationship Specialty Start Date End Date Priscilla Barrera MD [address] [place] [address] PCP - General 01/08/17 02/07/19 documented as of this encounter
--- OUTSIDE RECORDS SUMMARY | 2024-10-22 00:57 | XMS_ITS | Encounter Summary ---
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 Social History Tobacco Use Types Packs/Day Years Used Date Smoking Tobacco: Former Smokeless Tobacco: Never Alcohol Use Standard Drinks/Week Comments Yes 0 (1 standard drink = 0.6 oz pur e alcohol) Comments Unknown Sex and Gender Information Value Date Recorded Sex Assigned at Not on file Legal Sex Female 8:30 AM TECHNOLOGIES DIVISION CHAIR Gender Identity Female 10/06/2021 4:28 PM TECHNOLOGIES DIVISION CHAIR Sexual Orientation Choose not to disclose 2020 4:28 PM TECHNOLOGIES DIVISION CHAIR documented as of this encounter Plan of [...] Paroxysmal atrial fibrillation (CMS/HCC) (HCC) Atrial fibrillation 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
--- OUTSIDE RECORDS SUMMARY | 2024-10-22 00:57 | XMS_ITS | Encounter Summary ---
Author Organization [facility] Address [address] [facility] [address] [place] [address] Care Team Providers Care Graphic Engineer Name Role Phone Priscilla Barrera MD Primary Care Provider [phone] Encounter Details Date Type Department Care Team (Latest Contact Info) Description 10/01/2017 Anticoagulation Visit [facility] [address] [facility] [address] [place] [address] Andrade Brown MD [facility] [place] [address] Paroxysmal atrial fibrillation (CMS/HCC); assisted current use of anticoagulant therapy Social History Tobacco Use Types Packs/Day Years Used Date Smoking Tobacco: Former Smokeless Tobacco: Never Alcohol Use Standard Drinks/Week Comments Yes 0 (1 standard drink = 0.6 oz pur e alcohol) Comments Unknown Sex and Gender Information Value Date Recorded Sex Assigned at Not on file Legal Sex Female 8:30 AM SOLAR SALES ADVISOR Gender Identity Female 10/06/2021 4:28 PM SOLAR SALES ADVISOR Sexual Orientation Choose not to disclose 2020 4:28 PM SOLAR SALES ADVISOR documented as of this encounter Plan of [...] therapy documented in this encounter Care Teams Graphic Engineer Relationship Specialty Start Date End Date Priscilla Barrera MD [address] [place] [address] PCP - General 01/08/17 02/07/19 documented as of this encounter
--- OUTSIDE RECORDS SUMMARY | 2024-10-22 00:57 | XMS_ITS | Encounter Summary ---
Author Organization [facility] Address [address] 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 [Z79.01]; Ventricular ectopy; PAD (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/HCC) Social History Tobacco Use Types Packs/Day Years Used Date Smoking Tobacco: Former Smokeless Tobacco: Never Alcohol Use Standard Drinks/Week Comments Yes 0 (1 standard drink = 0.6 oz pur e alcohol) Comments Unknown Sex and Gender Information Value Date Recorded Sex Assigned at Not on file Legal Sex Female 8:30 AM REPAIRER ENGINE PRODUCTION Gender Identity Female 10/06/2021 4:28 PM REPAIRER ENGINE PRODUCTION Sexual Orientation Choose not to disclose 2020 4:28 PM REPAIRER ENGINE PRODUCTION documented as of this encounter Last Filed [...] not included. Patient Education A-fib (Atrial Fibrillation) DRUG ABUSE TREATMENT SPECIALIST: Atrial fibrillation (a-fib) is an irregular heartbeat. [...] in your arm or leg. Contact your manager grocery or healthcare provider if: ?? Your target [...] plan for you. Follow up with your manager grocery as directed: You will need regular blood tests and monitoring. Write down your questions so you remember to ask them during your visits. ?? 2016 [employer]. Information is for End User's use only and may not be sold, redistributed or otherwise used for commercial purposes. All illustrations and images included in CareNotes?? are the copyrighted property of [employer] or [employer]. The above information is an radiology aide only. It is not intended as [...] EKG. Orders: - ECG 12 lead 2. 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 3. Ventricular ectopy 4. 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
--- OUTSIDE RECORDS SUMMARY | 2024-10-22 00:57 | XMS_ITS | Encounter Summary ---
Author Organization [facility] Address [address] [facility] [address] [place] [address] Care Team Providers Care Brazing Furnace Operator Name Role Phone Priscilla Barrera MD Primary Care Provider [phone] Reason for Visit * Reason Comments Atrial Fibrillation Peripheral Artery Disease Hypertension Hyperlipidemia 6 mo f/u Encounter Details Date Type Department Care Team (Latest Contact Info) Description 10/13/2017 9:30 AM KILN STACKER Office Visit [facility] [address] [facility] [address] [place] [address] Andrade Brown MD [facility] [place] [id number] Left carotid bruit (Primary Dx); PAD (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/HCC); 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; 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 [...] on file Legal Sex Female 8:30 AM KILN STACKER Gender Identity Female 10/06/2021 4:28 PM KILN STACKER Sexual Orientation Choose not to disclose 2020 4:28 PM KILN STACKER documented as of this encounter Last Filed Vital Signs Vital Sign Reading Time Taken Comments Blood Pressure 126/74 10/13/2017 9:12 AM KILN STACKER Pulse 64 10/13/2017 9:12 AM KILN STACKER Temperature - - Respiratory Rate - - Oxygen Saturation 97% 10/13/2017 9:12 AM KILN STACKER Inhaled Oxygen Concentration - - Weight 92.1 kg (203 lb) 10/13/2017 9:12 AM KILN STACKER Height 167.6 cm (5' 6 ) 10/13/2017 9:12 AM KILN STACKER Body Mass Index 32.77 10/13/2017 9:12 AM KILN STACKER documented in this encounter Ordered Prescriptions Prescription [...] PVI ablation x2 with recent success 3. 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 PAD (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/HCC) Mild femoral disease 5. 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 goal <100 6. HTN (hypertension), benign At goal 7.. Left carotid bruit PLAN/RECOMMENDATIONS Bilateral carotid artery ultrasound to evaluate her bruit Otherwise continue her current cardiac regimen without change in follow-up in 6 months or sooner asclinically indicated. 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 goal <100 Other and unspecified hyperlipidemia HTN (hypertension), benign Essential hypertension, benign Paroxysmal atrial fibrillation (CMS/HCC) (HCC) Atrial fibrillation documented in this encounter Discontinued Medications Medication Sig Discontinue Reason Start Date End Da te warfarin (COUMADIN) 4 mg tablet TAKE 1 TABLET BY MOUTH DAILY Reorder 09/30/2017 10/13/2017 documented as of this encounter Care Teams Brazing Furnace Operator Relationship Specialty Start Date End Date Priscilla Barrera MD [address] [place] [address] PCP - General 01/08/17 02/07/19 documented as of this encounter
--- OUTSIDE RECORDS SUMMARY | 2024-10-22 00:57 | XMS_ITS | Encounter Summary ---
Author Organization [facility] Address [address] [facility] [address] [place] [address] Care Team Providers Care Lighting Adviser Name Role Phone Priscilla Barrera MD Primary Care Provider [phone] Encounter Details Date Type Department Care Team (Late st Contact Info) Description 01/28/2017 Orders Only [facility] [address] [facility] [address], [place] [address] Oracio Love MD [address] [facility] [address] [place] [address] Social History Tobacco Use Types Packs/Day Years Used Date Smoking Tobacco: Former Cigarettes Q uit: 10/11/1977 Alcohol Use Standard Drinks/Week Comments Yes 0 (1 standard drink = 0.6 oz pur e alcohol) Comments Unknown Sex and Gender Information Value Date Recorded Sex Assigned at Not on file Legal Sex Female 8:30 AM HOLDER PILE DRIVING Gender Identity Female 10/06/2021 4:28 PM HOLDER PILE DRIVING Sexual Orientation Choose not to disclose 2020 4:28 PM HOLDER PILE DRIVING documented as of this encounter Plan of Treatment Not on file documented as of this encounter Procedures Procedure Name Priority Date/Time Associated Diagnosis Comments CBC WITH AUTO DIFFERENTIAL Routine 01/28/2017 5:53 AM CDT documented in this encounter Results * (ABNORMAL) CBC with auto differential (01/28/2017 5:53 AM CDT) WBC 4.73 3.80 - 9.90 K/cumm [facility] RBC 3.89(L) 3.90 - 5.20 M/cumm [facility] Hgb 10.8(L) 11.9 - 15.5 g/dL [facility] Hct 33.7(L) 35.6 - 45.5 % [facility] MCV 86.6 81.3 - 96.4 fL [facility] MCH 27.8 27.1 - 33.3 pg [facility] MCHC 32.0(L) 32.3 - 35.7 g/dL [facility] RDW CV 14.4 11.1 - 14.9 % [facility] RDW SD 45.5 35.7 - 48.1 fL [facility] Plt 178 150 - 400 K/cumm [facility] MPV 9.7 9.1 - 12.3 fL [facility] NRBC 0.00 0.00 - 0.20 % [facility] NRBC abs 0.00 0.00 - 0.01 K/cumm [facility] Blood specimen (specimen) 01/28/2017 5:53 AM CDT 01/28/2017 6:12 AM CDT us Oracio Love MD LAB BLOOD ORDERABLES Fi nal Result [facility] [address] Department [place] [address] documented in this encounter Visit Diagnoses Not on filedocumented in this encounter Care Teams Lighting Adviser Relationship Specialty Start Date End Date Priscilla Barrera MD [address] [place] [address] PCP - General 01/08/17 02/07/19 documented as of this encounter
--- OUTSIDE RECORDS SUMMARY | 2024-10-22 00:57 | XMS_ITS | Encounter Summary ---
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/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); 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 Social History Tobacco Use Types Packs/Day Years Used Date Smoking Tobacco: Former Smokeless Tobacco: Never Alcohol Use Standard Drinks/Week Comments Yes 0 (1 standard drink = 0.6 oz pur e alcohol) Comments Unknown Sex and Gender Information Value Date Recorded Sex Assigned at Not on file Legal Sex Female 8:30 AM RESIDENTIAL PLUMBER Gender Identity Female 10/06/2021 4:28 PM RESIDENTIAL PLUMBER Sexual Orientation Choose not to disclose 2020 4:28 PM RESIDENTIAL PLUMBER documented as of this encounter Plan of [...] atrial fibrillation (CMS/HCC) (HCC) 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
--- OUTSIDE RECORDS SUMMARY | 2024-10-22 00:57 | XMS_ITS | Encounter Summary ---
Author Organization [facility] Medical [facility] Address [address] [facility] [address] [place] [address] Care Team Providers Care Outreach Team Member Name Role Phone Priscilla Barrera MD Primary Care Provider Encounter Details Date Type Department Care Team (Late st Contact Info) Description 01/28/2017 Orders Only Arrhythmia Center [address] [facility] [address] [address] Oracio Love MD [address] [facility] [address] [place] [address] Social History Tobacco Use Types Packs/Day Years Used Date Smoking Tobacco: Former Cigarettes Q uit: 10/11/1977 Alcohol Use Standard Drinks/Week Comments Yes 0 (1 standard drink = 0.6 oz pur e alcohol) Comments Unknown Sex and Gender Information Value Date Recorded Sex Assigned at Not on file Legal Sex Female 8:30 AM EXECUTIVE COMPENSATION ANALYST Gender Identity Female 10/06/2021 4:28 PM EXECUTIVE COMPENSATION ANALYST Sexual Orientation Choose not to disclose 2020 4:28 PM EXECUTIVE COMPENSATION ANALYST documented as of this encounter Plan of Treatment Not on file documented as of this encounter Procedures Procedure Name Priority Date/Time Associated Diagnosis Comments EGFR Routine 01/28/2017 5:53 AM CDT documented in this encounter Results * eGFR (01/28/2017 5:53 AM CDT) eGFR 43 mL/min/1.7 3 m2 [facility] Comment: Interpretive Data Reference Interval Normal ?>/= 90 mL/min/1.73m2 Mildly decreased* ? 60 - 89 mL/min/1.73m2 Mildly to moderately decreased ?45 - 59 mL/min/1.73m2 Moderately to severely decreased ??30 - 44 mL/min/1.73m2 Severely decreased ?15 - 29 mL/min/1.73m2 Kidney Failure ?< 15 ??mL/min/1.73m2 *Relative to young adult level If -Azerbaijani multiply value by 1.16. Estimated glomerular filtration [...] LAB BLOOD ORDERABLES Fi nal Result [facility] [address] Department [place] [address] documented in this encounter Visit Diagnoses Not on filedocumented in this encounter Care Teams Outreach Team Member Relationship Specialty Start Date End Date Priscilla Barrera MD [address] [place] [address] PCP - General 01/08/17 02/07/19 documented as of this encounter
--- OUTSIDE RECORDS SUMMARY | 2024-10-22 00:58 | XMS_ITS | Encounter Summary ---
Author Organization [facility] Medical [facility] Address [address] [facility] [address] [place] [address] Care Team Providers Care Dental Laboratory Technician Name Role Phone Priscilla Barrera MD Primary Care Provider [phone] Priscilla Barrera MD Primary Care Provider [phone] Kali Hunt MD Primary Care Provider [phone] Devaughn Macias MD Primary Care Provider Denis Platt MD Primary Care Provide r Gideon Campbell MD Primary Care Provider [phone] Encounter Details Date Type Department Care Team (Late st Contact Info) Description 10/29/2016 Orders Only [facility]hythmia Center Provider, MD Peggy [address] [place] [address] Social History Tobacco Use Types Packs/Day Years Used Date Smoking Tobacco: Former Cigarettes Q uit: 10/11/1977 Alcohol Use Standard Drinks/Week Comments Yes 0 (1 standard drink = 0.6 oz pur e alcohol) Comments Unknown Sex and Gender Information Value Date Recorded Sex Assigned at Not on file Legal Sex Female 8:30 AM ASSISTANT KITCHEN MANAGER Gender Identity Female 10/06/2021 4:28 PM ASSISTANT KITCHEN MANAGER Sexual Orientation Choose not to disclose 2020 4:28 PM ASSISTANT KITCHEN MANAGER documented as of this encounter Plan [...] on filedocumented in this encounter Care Teams Dental Laboratory Technician Relationship Specialty Start Date End Date Priscilla Barrera MD [address] [place] [address] PCP - General 01/08/17 02/07/19 Priscilla Barrera MD [address] [place] [address] PCP - General 08/27/16 01/07/17 Kali Hunt MD [address] [place] [address] PCP - General Family Medicine 02/08/19 01/30/20 Devaughn Macias MD [address] [place] [address] PCP - General Family Medicine 01/31/20 01/13/22 Denis Platt MD [address] [place] [address] PCP - General Family Medicine 01/14/22 07/18/23 Gideon Campbell MD [address] [place] [address] [place] [address] PCP - General Family Medicine 07/19/23 documented as of this encounter
--- OUTSIDE RECORDS SUMMARY | 2024-10-22 00:58 | XMS_ITS | Encounter Summary ---
Author Organization 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 Social History Tobacco Use Types Packs/Day Years Used Date Smoking Tobacco: Former Cigarettes Q uit: 10/11/1977 Alcohol Use Standard Drinks/Week Comments Yes 0 (1 standard drink = 0.6 oz pur e alcohol) Comments Unknown Sex and Gender Information Value Date Recorded Sex Assigned at Not on file Legal Sex Female 8:30 AM NON ACOUSTIC OPERATOR Gender Identity Female 10/06/2021 4:28 PM NON ACOUSTIC OPERATOR Sexual Orientation Choose not to disclose 2020 4:28 PM NON ACOUSTIC OPERATOR documented as of this encounter Last [...] to 3.0 Myocardial Infarction 2.0 to 3.0 Non-big lagoon Valves 2.0 to 3.5 TREATMENT OF VENOUS [...] Narrative 07/23/2016 Ordered by an unspecified provider. [facility] Provider LAB BLOOD ORDERABLES Noris l Result * ELECTROCARDIOGRAPHY (ECG) (07/23/2016) Narrative 07/23/2016 Ordered by an unspecified provider. [facility] Provider ECG ORDERABLES Final Res ult * [...] ORDERABLES Fi nal Result Performing Organization Address [facility] de Phone Number CDR HISTORICAL RESULTS [...] to 3.0 Myocardial Infarction 2.0 to 3.0 Non-big lagoon Valves 2.0 to 3.5 TREATMENT OF VENOUS THRMBOSIS Deep Vein Thrombosis 2.0 to 3.0 Pulmonary Embolism 2.0 to 3.0 Plasma 07/22/2016 7:09 AM CDT Oracio Love MD LAB BLOOD ORDERABLES Fi nal Result Performing Organization Address 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
--- OUTSIDE RECORDS SUMMARY | 2024-10-22 00:58 | XMS_ITS | Encounter Summary ---
Author Organization [facility] Address [address] [facility] [address] [place] [address] Care Team Providers Care Custodial Operations Manager Name Role Phone Priscilla Barrera MD Primary Care Provider [phone] Encounter Details Date Type Department Care Team (Late st Contact Info) Description 01/27/2017 Orders Only [facility] Center [address] [facility] [address] [address] Oracio Love MD [address] [facility] [address] [place] [address] Social History Tobacco Use Types Packs/Day Years Used Date Smoking Tobacco: Former Cigarettes Q uit: 10/11/1977 Alcohol Use Standard Drinks/Week Comments Yes 0 (1 standard drink = 0.6 oz pur e alcohol) Comments Unknown Sex and Gender Information Value Date Recorded Sex Assigned at Not on file Legal Sex Female 8:30 AM FLIGHT READINESS TECHNICIAN Gender Identity Female 10/06/2021 4:28 PM FLIGHT READINESS TECHNICIAN Sexual Orientation Choose not to disclose 2020 4:28 PM FLIGHT READINESS TECHNICIAN documented as of this encounter Plan of Treatment Not on file documented as of this encounter Procedures Procedure Name Priority Date/Time Associated Diagnosis Comments PROTIME-INR Routine 01/27/2017 6:41 AM CDT documented in this encounter Results * Protime-INR (01/27/2017 6:41 AM CDT) PT 12.1 10.0 - 13.0 sec [facility] Comment: Note: Coagulation specimens must be collected [...] any questions. INR 1.0 0.9 - 1.2 [facility] Comment: INDICATION: ORTHOPEDIC Total Hip and Knee Arthroplasty ?? 1.8 to 2.6 Hip Fracture ?1.8 to 2.6 CARDIOLOGY Atrial Fibrillation ? 2.0 to 3.0 Cardiomyopathy ?2.0 to 3.0 Myocardial Infarction ? 2.5 to 3.0 Non-nikolai Heart Valve ?2.0 to 3.5 TREATMENT OF [...] MD LAB BLOOD ORDERABLES Fi nal Result [facility] [address] Department of [employer] [place] [address] documented in this encounter Visit Diagnoses Not on filedocumented in this encounter Care Teams Custodial Operations Manager Relationship Specialty Start Date End Date Priscilla Barrera MD [address] [place] [address] PCP - General 01/08/17 02/07/19 documented as of this encounter
--- OUTSIDE RECORDS SUMMARY | 2024-10-22 00:58 | XMS_ITS | Encounter Summary ---
Author Organization [facility] Medical [facility] Address [address] [facility] [address] [place] [address] Care Team Providers Care Vp Global Marketing [employer] Name Role Phone Priscilla Barrera MD Primary Care Provider [phone] Encounter Details Date Type Department Care Team (Late st Contact Info) Description 01/27/2017 Orders Only [facility] [address] [facility] [address], [place] [address] Oracio Love MD [address] [facility] [address] [place] [address] Social History Tobacco Use Types Packs/Day Years Used Date Smoking Tobacco: Former Cigarettes Q uit: 10/11/1977 Alcohol Use Standard Drinks/Week Comments Yes 0 (1 standard drink = 0.6 oz pur e alcohol) Comments Unknown Sex and Gender Information Value Date Recorded Sex Assigned at Not on file Legal Sex Female 8:30 AM RECEPTIONIST/TELEPHONE OPERATOR Gender Identity Female 10/06/2021 4:28 PM RECEPTIONIST/TELEPHONE OPERATOR Sexual Orientation Choose not to disclose 2020 4:28 PM RECEPTIONIST/TELEPHONE OPERATOR documented as of this encounter Plan of Treatment Not on file documented as of this encounter Procedures Procedure Name Priority Date/Time Associated Diagnosis Comments CBC WITH AUTO DIFFERENTIAL Routine 01/27/2017 6:41 AM CDT documented in this encounter Results * CBC with auto differential (01/27/2017 6:41 AM CDT) WBC 4.22 3.80 - 9.90 K/cumm [facility] RBC 4.67 3.90 - 5.20 M/cumm [facility] Hgb 12.9 11.9 - 15.5 g/dL [facility] Hct 39.8 35.6 - 45.5 % [facility] MCV 85.2 81.3 - 96.4 fL [facility] MCH 27.6 27.1 - 33.3 pg [facility] MCHC 32.4 32.3 - 35.7 g/dL [facility] RDW CV 14.1 11.1 - 14.9 % [facility] RDW SD 43.3 35.7 - 48.1 fL [facility] Plt 233 150 - 400 K/cumm [facility] MPV 9.2 9.1 - 12.3 fL [facility] NRBC 0.00 0.00 - 0.20 % [facility] NRBC abs 0.00 0.00 - 0.01 K/cumm [facility] Blood specimen (specimen) 01/27/2017 6:41 AM CDT 01/27/2017 6:52 AM CDT us Oracio Love MD LAB BLOOD ORDERABLES Fi nal Result [facility] [address] Department [place] [address] documented in this encounter Visit Diagnoses Not on filedocumented in this encounter Care Teams Vp Global Marketing [employer] Relationship Specialty Start Date End Date Priscilla Barrera MD [address] [place] [address] PCP - General 01/08/17 02/07/19 documented as of this encounter
--- OUTSIDE RECORDS SUMMARY | 2024-10-22 00:58 | XMS_ITS | Encounter Summary ---
Author Organization [facility] Medical [facility] Address [address] [facility] [address] [place] [address] Care Team Providers Care Complaint Evaluation Supervisor Name Role Phone Priscilla Barrera MD Primary Care Provider [phone] Priscilla Barrera MD Primary Care Provider [phone] Kali Hunt MD Primary Care Provider [phone] Devaughn Macias MD Primary Care Provider Denis Platt MD Primary Care Provide r Gideon Campbell MD Primary Care Provider [phone] Encounter Details Date Type Department Care Team (Late st Contact Info) Description 12/24/2016 Orders Only Arrhythmia Center Provider, MD Peggy [address] [place] [address] Social History Tobacco Use Types Packs/Day Years Used Date Smoking Tobacco: Former Cigarettes Q uit: 10/11/1977 Alcohol Use Standard Drinks/Week Comments Yes 0 (1 standard drink = 0.6 oz pur e alcohol) Comments Unknown Sex and Gender Information Value Date Recorded Sex Assigned at Not on file Legal Sex Female 8:30 AM CARDIAC EXERCISE PHYSIOLOGIST Gender Identity Female 10/06/2021 4:28 PM CARDIAC EXERCISE PHYSIOLOGIST Sexual Orientation Choose not to disclose 2020 4:28 PM CARDIAC EXERCISE PHYSIOLOGIST documented as of this encounter Plan of [...] on filedocumented in this encounter Care Teams Complaint Evaluation Supervisor Relationship Specialty Start Date End Date Priscilla Barrera MD [address] [place] [address] PCP - General 01/08/17 02/07/19 Priscilla Barrera MD [address] [place] [address] PCP - General 08/27/16 01/07/17 Kali Hunt MD [address] [place] [address] PCP - General Family Medicine 02/08/19 01/30/20 Devaughn Macias MD [address] [place] [address] PCP - General Family Medicine 01/31/20 01/13/22 Denis Platt MD [address] [place] [address] PCP - General Family Medicine 01/14/22 07/18/23 Gideon Campbell MD [address] [place] [address] [place] [address] PCP - General Family Medicine 07/19/23 documented as of this encounter
--- OUTSIDE RECORDS SUMMARY | 2024-10-22 00:58 | XMS_ITS | Encounter Summary ---
Author Organization [facility] Facility Care Team Providers Care Profile Mill Operator Tape Control Name Role Phone Priscilla Barrera MD Primary Care Provider [phone] Encounter Details Date Type Department Care Team (Latest Contact Info) Description 07/15/2016 12:54 PM CDT - 07/15/2016 11:59 PM CDT Hospital Encounter [facility] CLINCONV Kate, Wendi Veliz MD [address] [address] Chronic atrial fibrillation (CMS/HCC) Social History Tobacco Use Types Packs/Day Years Used Date Smoking Tobacco: Former Cigarettes Q uit: 10/11/1977 Alcohol Use Standard Drinks/Week Comments Yes 0 (1 standard drink = 0.6 oz pur e alcohol) Comments Unknown Sex and Gender Information Value Date Recorded Sex Assigned at Not on file Legal Sex Female 8:30 AM OPERATIONS RESEARCH DIRECTOR Gender Identity Female 10/06/2021 4:28 PM OPERATIONS RESEARCH DIRECTOR Sexual Orientation Choose not to disclose 2020 4:28 PM OPERATIONS RESEARCH DIRECTOR documented as of this encounter Medications at [...] WENDI BULL Requesting Fax: ?? Requesting ID: [id number] Attending Fax: ?? Attending ID: ?? [id number] Completed Time: ?? 07/15/2016 2:29 PM Dictated [...] BULL Requesting: WENDI BULL Requesting Requesting ID: [id number] Attending Attending ID: [id number] Completed Time: 07/15/2016 2:29 PM Dictated Time: [...] fibrillation documented in this encounter Care Teams Profile Mill Operator Tape Control Relationship Specialty Start Date End Date Priscilla Barrera MD [facility] [place] [address] PCP - General 01/30/16 08/26/16 documented as of this encounter
--- OUTSIDE RECORDS SUMMARY | 2024-10-22 00:58 | XMS_ITS | Encounter Summary ---
Author Organization [facility] Address [address] [facility] [address] [place] [address] Care Team Providers Care Basin Cleaner Name Role Phone Priscilla Barrera MD Primary Care Provider [phone] Priscilla Barrera MD Primary Care Provider [phone] Priscilla Barrera MD Primary Care Provider [phone] Kali Hunt MD Primary Care Provider [phone] Devaughn Macias MD Primary Care Provider Denis Platt MD Primary Care Provide r Gideon Campbell MD Primary Care Provider [phone] Encounter Details Date Type Department Care Team (Late st Contact Info) Description 07/22/2016 Orders Only [facility] Provider, MD Peggy [address] [place] [address] Social History Tobacco Use Types Packs/Day Years Used Date Smoking Tobacco: Former Cigarettes Q uit: 10/11/1977 Alcohol Use Standard Drinks/Week Comments Yes 0 (1 standard drink = 0.6 oz pur e alcohol) Comments Unknown Sex and Gender Information Value Date Recorded Sex Assigned at Not on file Legal Sex Female 8:30 AM CRYPTOLOGIC SUPERVISOR Gender Identity Female 10/06/2021 4:28 PM CRYPTOLOGIC SUPERVISOR Sexual Orientation Choose not to disclose 2020 4:28 PM CRYPTOLOGIC SUPERVISOR documented as of this encounter Plan [...] on filedocumented in this encounter Care Teams Basin Cleaner Relationship Specialty Start Date End Date Priscilla Barrera MD [address] [place] [address] PCP - General 01/08/17 02/07/19 Priscilla Barrera MD [address] [place] [address] PCP - General 08/27/16 01/07/17 Priscilla Barrera MD [address] [place] [address] PCP - General 01/30/16 08/26/16 Kali Hunt MD [address] [place] [address] PCP - General Family Medicine 02/08/19 01/30/20 Devaughn Macias MD [address] [place] [address] PCP - General Family Medicine 01/31/20 01/13/22 Denis Platt MD [address] [place] [address] PCP - General Family Medicine 01/14/22 07/18/23 Gideon Campbell MD [address] [facility] [address] [place] [address] PCP - General Family Medicine 07/19/23 documented as of this encounter
--- OUTSIDE RECORDS SUMMARY | 2024-10-22 00:58 | XMS_ITS | Encounter Summary ---
Author Organization [facility] Medical Group Address [address] [facility] [address] [place] [address] Care Team Providers Care Nuisance Wildlife Trapper Name Role Phone Priscilla Barrera MD Primary Care Provider [phone] Encounter Details Date Type Department Care Team (Late st Contact Info) Description 01/27/2017 Orders Only [facility] [address] [facility] [address] [address] Oracio Love MD [address] [facility] [address] [place] [address] Social History Tobacco Use Types Packs/Day Years Used Date Smoking Tobacco: Former Cigarettes Q uit: 10/11/1977 Alcohol Use Standard Drinks/Week Comments Yes 0 (1 standard drink = 0.6 oz pur e alcohol) Comments Unknown Sex and Gender Information Value Date Recorded Sex Assigned at Not on file Legal Sex Female 8:30 AM BRANCH OPERATIONS SPECIALIST Gender Identity Female 10/06/2021 4:28 PM BRANCH OPERATIONS SPECIALIST Sexual Orientation Choose not to disclose 2020 4:28 PM BRANCH OPERATIONS SPECIALIST documented as of this encounter Plan of Treatment Not on file documented as of this encounter Procedures Procedure Name Priority Date/Time Associated Diagnosis Comments APTT Routine 01/27/2017 6:41 AM CDT documented in this encounter Results * aPTT (01/27/2017 6:41 AM CDT) aPTT 33.0 26.0 - 36.0 sec [facility] [place] [facility] Comment: Interpretive Data Therapeutic Heparin Range: [...] [address] Department [place] [address] documented in this encounter Visit Diagnoses Not on filedocumented in this encounter Care Teams Nuisance Wildlife Trapper Relationship Specialty Start Date End Date Priscilla Barrera MD [address] [place] [address] PCP - General 01/08/17 02/07/19 documented as of this encounter
--- OUTSIDE RECORDS SUMMARY | 2024-10-22 00:58 | XMS_ITS | Encounter Summary ---
Author Organization [facility] Medical [facility] Address [address] [facility] [address] [place] [address] Care Team Providers Care It Service Manager Name Role Phone Priscilla Barrera MD Primary Care Provider [phone] Priscilla Barrera MD Primary Care Provider [phone] Priscilla Barrera MD Primary Care Provider [phone] Kali Hunt MD Primary Care Provider [phone] Devaughn Macias MD Primary Care Provider Denis Platt MD Primary Care Provide r Gideon Campbell MD Primary Care Provider [phone] Encounter Details Date Type Department Care Team (Late st Contact Info) Description 06/24/2016 Orders Only [facility] Provider, MD Peggy [address] [place] [address] Social History Tobacco Use Types Packs/Day Years Used Date Smoking Tobacco: Former Cigarettes Q uit: 10/11/1977 Alcohol Use Standard Drinks/Week Comments Yes 0 (1 standard drink = 0.6 oz pur e alcohol) Comments Unknown Sex and Gender Information Value Date Recorded Sex Assigned at Not on file Legal Sex Female 8:30 AM BILLBOARD POSTER HELPER Gender Identity Female 10/06/2021 4:28 PM BILLBOARD POSTER HELPER Sexual Orientation Choose not to disclose 2020 4:28 PM BILLBOARD POSTER HELPER documented as of this encounter Plan [...] filedocumented in this encounter Care Teams It Service Manager Relationship Specialty Start Date End Date Priscilla Barrera MD [address] [place] [address] PCP - General 01/08/17 02/07/19 Priscilla Barrera MD [address] [place] [address] PCP - General 08/27/16 01/07/17 Priscilla Barrera MD [address] [place] [address] PCP - General 01/30/16 08/26/16 Kali Hunt MD [address] [place] [address] PCP - General Family Medicine 02/08/19 01/30/20 Devaughn Macias MD [address] [place] [address] PCP - General Family Medicine 01/31/20 01/13/22 Denis Platt MD [address] [place] [address] PCP - General Family Medicine 01/14/22 07/18/23 Gideon Campbell MD [address] [facility] [address] [place] [address] PCP - General Family Medicine 07/19/23 documented as of this encounter
--- OUTSIDE RECORDS SUMMARY | 2024-10-22 00:58 | XMS_ITS | Encounter Summary ---
Author Organization [facility] Medical [facility] Address [address] [facility] [address] [place] [address] Care Team Providers Care Hand Filer Balance Wheel Name Role Phone Priscilla Barrera MD Primary Care Provider [phone] Encounter Details Date Type Department Care Team (Late st Contact Info) Description 01/27/2017 Orders Only [facility] [address] [facility] [address], [place] [address] Oracio Love MD [address] [facility] [address] [place] [address] Social History Tobacco Use Types Packs/Day Years Used Date Smoking Tobacco: Former Cigarettes Q uit: 10/11/1977 Alcohol Use Standard Drinks/Week Comments Yes 0 (1 standard drink = 0.6 oz pur e alcohol) Comments Unknown Sex and Gender Information Value Date Recorded Sex Assigned at Not on file Legal Sex Female 8:30 AM LOOM OPERATOR APPRENTICE Gender Identity Female 10/06/2021 4:28 PM LOOM OPERATOR APPRENTICE Sexual Orientation Choose not to disclose 2020 4:28 PM LOOM OPERATOR APPRENTICE documented as of this encounter Plan of Treatment Not on file documented as of this encounter Procedures Procedure Name Priority Date/Time Associated Diagnosis Comments DIFFERENTIAL AUTO Routine 01/27/2017 6:4 1 AM CDT documented in this encounter Results * (ABNORMAL) Differential, auto (01/27/2017 6:41 AM CDT) Neutrophil pct 70.7 44.0 - 80.0 % [facility] Imm gran pct 0.2 0.0 - 1.0 % [facility] Lymphocyte pct 17.8 13.0 - 44.0 % [facility] Monocyte pct 7.8 2.0 - 11.0 % [facility] Eosinophil pct 2.8 0.0 - 6.0 % [facility] Basophil pct 0.7 0.0 - 3.0 % [facility] Neutrophil abs 2.98 1.70 - 6.50 K/cumm [facility] Imm gran abs 0.01 0.00 - 0.10 K/cumm [facility] Lymphocyte abs 0.75(L) 0.80 - 3.30 K/cumm [facility] Monocyte abs 0.33 0.20 - 0.80 K/cumm [facility] Eosinophil abs 0.12 0.00 - 0.50 K/cumm [facility] Basophil abs 0.03 0.00 - 0.10 K/cumm [facility] Blood specimen (specimen) 01/27/2017 6:41 AM CDT 01/27/2017 6:52 AM CDT us Oracio Love MD LAB BLOOD ORDERABLES Fi nal Result [facility] [address] Department [place] [address] documented in this encounter Visit Diagnoses Not on filedocumented in this encounter Care Teams Hand Filer Balance Wheel Relationship Specialty Start Date End Date Priscilla Barrera MD [address] [place] [address] PCP - General 01/08/17 02/07/19 documented as of this encounter
--- OUTSIDE RECORDS SUMMARY | 2024-10-22 00:58 | XMS_ITS | Encounter Summary ---
Author Organization [facility] Medical Group Address [address] [facility] [address] [place] [address] Care Team Providers Care Adjunct Phlebotomy Instructor Name Role Phone Priscilla Barrera MD Primary Care Provider [phone] Priscilla Barrera MD Primary Care Provider [phone] Priscilla Barrera MD Primary Care Provider [phone] Kali Hunt MD Primary Care Provider [phone] Devaughn Macias MD Primary Care Provider Denis Platt MD Primary Care Provide r Gideon Campbell MD Primary Care Provider [phone] Encounter Details Date Type Department Care Team (Late st Contact Info) Description 07/23/2016 Orders Only [facility] Provider, MD Peggy [address] [place] [address] Social History Tobacco Use Types Packs/Day Years Used Date Smoking Tobacco: Former Cigarettes Q uit: 10/11/1977 Alcohol Use Standard Drinks/Week Comments Yes 0 (1 standard drink = 0.6 oz pur e alcohol) Comments Unknown Sex and Gender Information Value Date Recorded Sex Assigned at Not on file Legal Sex Female 8:30 AM DIRECTOR OF PHILANTHROPY Gender Identity Female 10/06/2021 4:28 PM DIRECTOR OF PHILANTHROPY Sexual Orientation Choose not to disclose 2020 4:28 PM DIRECTOR OF PHILANTHROPY documented as of this encounter Plan of [...] on filedocumented in this encounter Care Teams Adjunct Phlebotomy Instructor Relationship Specialty Start Date End Date Priscilla Barrera MD [address] [place] [address] PCP - General 01/08/17 02/07/19 Priscilla Barrera MD [address] [place] [address] PCP - General 08/27/16 01/07/17 Priscilla Barrera MD [address] [place] [address] PCP - General 01/30/16 08/26/16 Kali Hunt MD [address] [place] [address] PCP - General Family Medicine 02/08/19 01/30/20 Devaughn Macias MD [address] [place] [address] PCP - General Family Medicine 01/31/20 01/13/22 Denis Platt MD [address] [place] [address] PCP - General Family Medicine 01/14/22 07/18/23 Gideon Campbell MD [address] [facility] [address] [place] [address] PCP - General Family Medicine 07/19/23 documented as of this encounter
--- OUTSIDE RECORDS SUMMARY | 2024-10-22 01:05 | XMS_ITS | Encounter Summary ---
Author Organization [facility] Address [address] [place] [address] Phone Care Team Providers Care Category Specialist Name Role Phone Denis Platt MD Primary Care Provider [phone] Reason for Visit * Auth/Cert Specialty Diagnoses / Procedures Referred By Lyndsey farmer Referred To Contact Referral ID Status Reason Start Date Expiration Date Visits Re quested Visits Authorized [id number] 1 1 Encounter Details Date Type Department Care Team (Late st Contact Info) Description 04/14/2022 1:00 PM CDT Home Care Visit [facility] [address] [place] [address] Verona Restrepo, INDUSTRIAL GAS SERVICE HELPER PT - HOME VISIT Social History Tobacco [...] goals the following were identified: 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 Target Date: [...] next 2 weeks. She works for a [employer], sedentary work. 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 Tolerance to activity: fair Instruction provided to [...] drainage documented in this encounter Care Teams Category Specialist Relationship Specialty Start Date End Date Denis Platt MD [address] [place] [address] PCP - General Pediatrics 04/08/22 02/15/24 documented as of this encounter
--- OUTSIDE RECORDS SUMMARY | 2024-10-22 01:05 | XMS_ITS | Clinical Summary ---
Author Organization [facility] Address [address] [place] [address] Phone Care Team Providers Care Gravity Flow Irrigator Name Role Phone Gideon Campbell MD Primary Care Provider [phone] Allergies No known active allergies Medications warfarin [...] this topic Medical Devices Implanted Type Area Tube Maker Device Identifier Shelf Expiration Date Model / Serial / Lot Shell Actb 54mm Hip Sector Gription [place] - [id number] Implanted:Qty: 1 on 04/07/2022 by Herber Knott MD at [facility] IMPLANT Left: Hip [employer] 02/08/2032 [id number] / [id number] / [id number] Liner Actb Altrx [place] Neutral 54mm 36mm Hip - [id number] Implanted:Qty: 1 on 04/07/2022 by Herber Knott MD at [facility] IMPLANT Left: Hip [employer] 08/10/2026 [id number] / [id number] / [id number] Screw Bone 6.5mm 35mm [place] Dome 4 Point Cut Flute Hip Actb Canc Slftp Hex Head Blunt Tip - [id number] Implanted:Qty: 1 on 04/07/2022 by Herber Knott MD at [facility] IMPLANT Left: Hip [employer] 09/09/2031 [id number] / [id number] / [id number] Head Fem 1.5mm /14 Taper 36mm Hip Cementless Biolox Delta Articul/Warren - [id number] Implanted:Qty: 1 on 04/07/2022 by Herber Knott MD at [facility] IMPLANT Left: Hip [employer] 02/07/2027 [id number] / [id number] / [id number] Depuy Femoral Stem / Taper Actis Duofix Hip Prothesis Cementless, High Vollar Implanted:Qty: 1 on 04/07/2022 by Herber Knott [facility] at [facility] Left: Hip [employer] 12/09/2031 / / [id number] Insurance [facility] on file Advance Directives * Full Code (Latest Code Status on File) Date Activated Date Inactivated Comments 04/17/2022 9:30 AM Care Teams Gravity Flow Irrigator Relationship Specialty Start Date End Date Gideon Campbell MD [address] [place] [address] [place] [address] PCP - General Photographic Process Screen Maker 02/16/24
--- OUTSIDE RECORDS SUMMARY | 2024-10-22 01:05 | XMS_ITS | Encounter Summary ---
Author Organization [facility] Address [address] [place] [address] Phone Care Team Providers Care Manager Business Management Name Role Phone Denis Platt MD Primary Care Provider [phone] Reason for Visit * Auth/Cert Specialty Diagnoses / Procedures Referred By Lyndsey farmer Referred To Contact Referral ID Status Reason Start Date Expiration Date Visits Re quested Visits Authorized [id number] 1 1 Encounter Details Date Type Department Care Team (Late st Contact Info) Description 04/20/2022 1:00 PM CDT Home Care Visit [facility] [address] [place] [address] Verona Restrepo, WAITRESS PT - HOME VISIT Social History Tobacco [...] goals the following were identified: 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 Target Date: [...] next 2 weeks. She works for a [employer], sedentary work. At PT eval patient answers [...] not ordered, patient declined need for ACP Semiconductor Processor to provide: not ordered Past Medical History: [...] Progress toward goal: goal partially met at [facility] today PT Bed Mobility Description: Instruct on [...] bandage. documented in this encounter Care Teams Manager Business Management Relationship Specialty Start Date End Date Denis Platt MD [address] [place] [address] PCP - General Pediatrics 04/08/22 02/15/24 documented as of this encounter
--- OUTSIDE RECORDS SUMMARY | 2024-10-22 01:05 | XMS_ITS | Encounter Summary ---
Author Organization [facility] Address [address] [place] [address] Phone Care Team Providers Care Glaciologist Name Role Phone Denis Platt MD Primary Care Provider [phone] Reason for Visit * Auth/Cert Specialty Diagnoses / Procedures Referred By Lyndsey farmer Referred To Contact Referral ID Status Reason Start Date Expiration Date Visits Re quested Visits Authorized [id number] 1 1 Encounter Details Date Type Department Care Team (Late st Contact Info) Description 04/16/2022 11:00 AM CDT Home Care Visit [facility] [address] [place] [address] Verona Restrepo, HR PAYROLL COORDINATOR PT - HOME VISIT Social History Tobacco [...] goals the following were identified: 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 Target Date: [...] 2 weeks. She works for a local [employer], sedentary work. At PT eval patient answers [...] not ordered, patient declined need for ACP Information Systems Administrator to provide: not ordered Past Medical History: [...] ongoing. documented in this encounter Care Teams Glaciologist Relationship Specialty Start Date End Date Denis Platt MD [address] [place] [address] PCP - General Pediatrics 04/08/22 02/15/24 documented as of this encounter
--- OUTSIDE RECORDS SUMMARY | 2024-10-22 01:05 | XMS_ITS | Encounter Summary ---
Author Organization [facility] Address [address] 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 Target Date: [...] next 2 weeks. She works for a [employer], sedentary work. At PT eval patient answers [...] not ordered, patient declined need for ACP Administrative Aide to provide: not ordered Past Medical History: [...] ongoing documented in this encounter Care Teams Substation Designer Relationship Specialty Start Date End Date Denis Platt MD [address] [place] [address] PCP - General Pediatrics 04/08/22 02/15/24 documented as of this encounter
--- OUTSIDE RECORDS SUMMARY | 2024-10-22 01:05 | XMS_ITS | Encounter Summary ---
Author Organization [facility] Address [address] [place] [address] Phone Care Team Providers Care Post Closer Name Role Phone Denis Platt MD Primary Care Provider [phone] Encounter Details Date Type Department Care Team ([facility] Contact Info) Description 04/09/2022 Plan of Care Documentation [facility] [address] [place] [address] Social History Tobacco Use Types Packs/Day Years [...] on filedocumented in this encounter Care Teams Post Closer Relationship Specialty Start Date End Date Denis Platt MD [address] [place], [place] [id number] PCP - General Pediatrics 04/08/22 02/15/24 documented as of this encounter
--- OUTSIDE RECORDS SUMMARY | 2024-10-22 01:05 | XMS_ITS | Encounter Summary ---
Author Organization [facility] Address [address] [place] [address] Phone Care Team Providers Care Wood Casket Maker Name Role Phone Denis Platt MD Primary Care Provider [phone] Reason for Visit * Auth/Cert Specialty Diagnoses / Procedures Referred By Lyndsey farmer Referred To Contact Referral ID Status Reason Start Date Expiration Date Visits Re quested Visits Authorized [id number] 1 1 Encounter Details Date Type Department Care Team (Late st Contact Info) Description 04/10/2022 [facility] [address] [place] [address] Cyn Roblero, PT [place] CASE COMMUNICATION Social [...] on filedocumented in this encounter Care Teams Wood Casket Maker Relationship Specialty Start Date End Date Denis Platt MD [address] [place] [id number] PCP - General Pediatrics 04/08/22 02/15/24 documented as of this encounter
--- OUTSIDE RECORDS SUMMARY | 2024-10-22 01:05 | XMS_ITS | Encounter Summary ---
Author Organization [facility] Address [address] [place] [address] Phone Care Team Providers Care Iv Rn Name Role Phone Denis Platt MD Primary Care Provider [phone] Reason for Visit * Auth/Cert Specialty Diagnoses / Procedures Referred By Lyndsey farmer Referred To Contact Referral ID Status Reason Start Date Expiration Date Visits Re quested Visits Authorized [id number] 1 1 Encounter Details Date Type Department Care Team (Latest Contact Info) Description 04/22/2022 12:00 PM CDT Home Care Visit [facility] [address] [place] [address] Cyn Roblero, PT [place] PT - OASIS [...] FALL PREVENTION (O) Disciplines: SN, PT, OT, CHARGE ATTENDANT, [facility], [place] REDEVELOPMENT SITE MANAGER, RT 04/09/2022 Active 1 goal linked to [...] goals the following were identified: 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 Target Date: [...] 2 weeks. She works for a local [employer], sedentary work. At PT eval patient answers [...] not ordered, patient declined need for ACP Sub Assembly Team Worker to provide: not ordered Past Medical History: [...] met documented in this encounter Care Teams Iv Rn Relationship Specialty Start Date End Date Denis Platt MD [address] [place] [address] PCP - General Pediatrics 04/08/22 02/15/24 documented as of this encounter
--- OUTSIDE RECORDS SUMMARY | 2024-10-22 01:05 | XMS_ITS | Encounter Summary ---
Author Organization [facility] Address [address] [place] [address] Phone Care Team Providers Care Retail Sales Merchandiser Name Role Phone Denis Platt MD Primary Care Provider [phone] Reason for Visit * Auth/Cert Specialty Diagnoses / Procedures Referred By Lyndsey farmer Referred To Contact Referral ID Status Reason Start Date Expiration Date Visits Re quested Visits Authorized [id number] 1 1 Encounter Details Date Type Department Care Team (Late st Contact Info) Description 04/10/2022 [facility] [address] [place] [address] Cyn Roblero, PT [place] TELEPHONE ENCOUNTER Social [...] on filedocumented in this encounter Care Teams Retail Sales Merchandiser Relationship Specialty Start Date End Date Denis Platt MD [address] [place] [id number] PCP - General Pediatrics 04/08/22 02/15/24 documented as of this encounter
--- OUTSIDE RECORDS SUMMARY | 2024-10-22 01:05 | XMS_ITS | Encounter Summary ---
Author Organization [facility] Address [address] [place] [address] Phone Care Team Providers Care Planting Supervisor Name Role Phone Denis Platt MD Primary Care Provider [phone] Reason for Visit * Auth/Cert Specialty Diagnoses / Procedures Referred By Lyndsey farmer Referred To Contact Referral ID Status Reason Start Date Expiration Date Visits Re quested Visits Authorized [id number] 1 1 Encounter Details Date Type Department Care Team (Late st Contact Info) Description 04/13/2022 [facility] [address] [place] [address] Lilia Menendez, RN [place] CASE COMMUNICATION Social [...] on filedocumented in this encounter Care Teams Planting Supervisor Relationship Specialty Start Date End Date Denis Platt MD [address] [place] [address] PCP - General Pediatrics 04/08/22 02/15/24 documented as of this encounter
--- OUTSIDE RECORDS SUMMARY | 2024-10-22 01:06 | XMS_ITS | Encounter Summary ---
Author Organization [facility] Address [address] [place] [address] Phone Care Team Providers Care Final Inspector Movement Assembly Name Role Phone Provider, Not On File Primary Care Provider Unav ailable Reason for Referral * Radiology Services (Routine) - Closed Specialty Diagnoses / Procedures Referred By Lyndsey farmer Referred To Contact Radiology Diagnoses Preop examination Procedures EKG 12 LEAD Herber Knott MD Phone: tel: fax: Referral ID Status Reason Start Date Expiration Date Visits Re quested Visits Authorized [id number] Closed 03/19/2022 1 1 Reason for Visit * Radiology Services (Routine) - Closed Specialty Diagnoses / Procedures Referred By Lyndsey farmer Referred To Contact Radiology Diagnoses Preop examination Procedures EKG 12 LEAD Herber Knott MD Phone: tel: fax: Referral ID Status Reason Start Date Expiration Date Visits Re quested Visits Authorized [id number] Closed 03/19/2022 1 1 Encounter Details Date Type Department Care Team (Latest Contact Info) Description 03/19/2022 11:30 AM CDT - 03/19/2022 12:58 PM CDT [facility] [address] [place] [address] Herber Knott MD [address] [place] [address], [address] [place] [address] Discharge Disposition: Discharged to home or Selfcare [...] QTC CALCULATION 454 ms EXTERNAL EKG P [place] 75 degrees EXTERNAL EKG R [place] -56 degrees EXTERNAL EKG T [place] 53 degrees EXTERNAL EKG 03/19/2022 1:11 PM CDT Impressions EXTERNAL EKG - 03/20/2022 12:47 PM CDT Sinus rhythm Left axis deviation RBBB with left anterior fascicular block Possible anterior infarct - age undetermined Low QRS voltages in precordial leads Comparison Summary: No serial comparison made Summary: Abnormal ECG Confirmed by Giuliano Morrell [id number] on 03/20/2022 12:47:32 PM Narrative Procedure Note Petros Sher MD - 03/20/2022 IMPRESSION: Sinus rhythm Left axis deviation RBBB with left anterior fascicular block Possible anterior infarct - age undetermined Low QRS voltages in precordial leads Comparison Summary: No serial comparison made Summary: Abnormal ECG Confirmed by Giuliano Morrell [id number] on 03/20/2022 12:47:32 PM us Herber Knott MD IMG ECG ORDERABLES Final Resul t EXTERNAL EKG documented in this encounter Visit Diagnoses Diagnosis Preop examination Preoperative examination, unspecified Preop cardiovascular exam Pre-operative cardiovascular examination documented in this encounter Care Teams Final Inspector Movement Assembly Relationship Specialty Start Date End Date Provider, Not On File [place] PCP - General 03/19/22 04/07/22 documented as of this encounter
--- OUTSIDE RECORDS SUMMARY | 2024-10-22 01:06 | XMS_ITS | Encounter Summary ---
Author Organization [employer] Care Team Providers Care Rotary Operator Name Role Phone Provider, Not On File [...] on filedocumented in this encounter Care Teams Rotary Operator Relationship Specialty Start Date End Date Provider, Not On File [place] PCP - General 03/19/22 04/07/22 documented as of this encounter
--- OUTSIDE RECORDS SUMMARY | 2024-10-22 01:06 | XMS_ITS | Encounter Summary ---
Author Organization [facility] Address [address] [place] [address] Phone Care Team Providers Care Director Of Assessing Name Role Phone Provider, Not On File Primary Care Provider Unav ailable Reason for Referral * Radiology Services (Routine) - Closed Specialty Diagnoses / Procedures Referred By Lyndsey farmer Referred To Contact Radiology Diagnoses Preop examination Procedures XR CHEST 2 VIEWS Herber Knott MD Phone: tel: fax: Referral ID Status Reason Start Date Expiration Date Visits Re quested Visits Authorized [id number] Closed 03/19/2022 1 1 Reason for Visit * Radiology Services (Routine) - Closed Specialty Diagnoses / Procedures Referred By Lyndsey farmer Referred To Contact Radiology Diagnoses Preop examination Procedures XR CHEST 2 VIEWS Herber Knott MD Phone: tel: fax: Referral ID Status Reason Start Date Expiration Date Visits Re quested Visits Authorized [id number] Closed 03/19/2022 1 1 Encounter Details Date Type Department Care Team (Latest Contact Info) Description 03/19/2022 12:59 PM CDT - 03/19/2022 11:59 PM CDT [facility] [address] [place] [address] Herber Knott MD [address] [place] [address], [address] [place] [address] Discharge Disposition: Discharged to home or Selfcare [...] PM T: ??03/20/2022 3:45 PM Report ID: [id number] Reading Location: ??[id number] Procedure Note Baldemar Caro MD - 03/20/2022 [...] Baldemar Caro M.D. MZ: MZ Report ID: [id number] Reading Location: [id number] IMPRESSION: No acute cardiopulmonary findings. Herber Knott MD IMG DIAGNOSTIC ORDERABLES Noris l Result documented in this encounter Visit Diagnoses Diagnosis Preop examination Preoperative examination, unspecified Preop cardiovascular exam Pre-operative cardiovascular examination documented in this encounter Care Teams Director Of Assessing Relationship Specialty Start Date End Date Provider, Not On File [place] PCP - General 03/19/22 04/07/22 documented as of this encounter
--- OUTSIDE RECORDS SUMMARY | 2024-10-22 01:06 | XMS_ITS | Encounter Summary ---
Author Organization [employer] Care Team Providers Care District Administrator Name Role Phone Provider, Not On File [...] on filedocumented in this encounter Care Teams District Administrator Relationship Specialty Start Date End Date Provider, Not On File [place] PCP - General 03/19/22 04/07/22 documented as of this encounter
--- OUTSIDE RECORDS SUMMARY | 2024-10-22 01:06 | XMS_ITS | Encounter Summary ---
Author Organization [facility] Address [address] [place] [address] Phone Care Team Providers Care Nuclear Medicine Specialist Name Role Phone Provider, Not On File Primary Care Provider Unav ailable Reason for Referral * Radiology Services (Routine) - Closed Specialty Diagnoses / Procedures Referred By Lyndsey farmer Referred To Contact Radiology Diagnoses Preop examination Procedures EKG 12 LEAD Herber Knott MD Phone: tel: fax: Referral ID Status Reason Start Date Expiration Date Visits Re quested Visits Authorized [id number] Closed 03/19/2022 1 1 * Radiology Services (Routine) - Closed Specialty Diagnoses / Procedures Referred By Lyndsey farmer Referred To Contact Radiology Diagnoses Preop examination Procedures XR CHEST 2 VIEWS Herber Knott MD Phone: tel: fax: Referral ID Status Reason Start Date Expiration Date Visits Re quested Visits Authorized [id number] Closed 03/19/2022 1 1 Encounter Details Date Type Department Care Team (Latest Contact Info) Description 03/19/2022 Transcribe Orders [facility] Patient Access Admitting 1 [place] [address] Herber Knott MD [address] [place] [address], [address] [place] [address] Preop cardiovascular exam (Primary Dx); Preop examination [...] PM T: ??03/20/2022 3:45 PM Report ID: [id number] Reading Location: ??[id number] Procedure Note Baldemar Caro MD - 03/20/2022 [...] Baldemar Caro M.D. MZ: MZ Report ID: [id number] Reading Location: [id number] IMPRESSION: No acute cardiopulmonary findings. Herber Knott MD IMG DIAGNOSTIC ORDERABLES Noris l Result * EKG 12 LEAD (03/19/2022 1:11 PM CDT) Ventricular Rate BPM EXTERNAL EKG Atrial Rate BPM EXTERNAL EKG P-R Interval 140 ms EXTERNAL EKG QRS Duration 132 ms EXTERNAL EKG Q-T Duration 420 ms EXTERNAL EKG QTC CALCULATION 454 ms EXTERNAL EKG P [place] 75 degrees EXTERNAL EKG R [place] -56 degrees EXTERNAL EKG T [place] 53 degrees EXTERNAL EKG 03/19/2022 1:11 PM CDT Impressions EXTERNAL EKG - 03/20/2022 12:47 PM CDT Sinus rhythm Left axis deviation RBBB with left anterior fascicular block Possible anterior infarct - age undetermined Low QRS voltages in precordial leads Comparison Summary: No serial comparison made Summary: Abnormal ECG Confirmed by Giuliano Morrell [id number] on 03/20/2022 12:47:32 PM Narrative Procedure Note Petros Sher MD - 03/20/2022 IMPRESSION: Sinus rhythm Left axis deviation RBBB with left anterior fascicular block Possible anterior infarct - age undetermined Low QRS voltages in precordial leads Comparison Summary: No serial comparison made Summary: Abnormal ECG Confirmed by Giuliano Morrell [id number] on 03/20/2022 12:47:32 PM us Herber Knott MD IMG ECG ORDERABLES Final Resul t Performing Organization Address [facility] Co de Phone Number EXTERNAL EKG * (ABNORMAL) APTT (PTT) (03/19/2022 11:55 AM CDT) PTT 59(H) 24 - 36 sec 03/19/2022 12:38 PM CDT [facility] Blood Venipuncture / Unknown 03/19/2022 11:55 AM CDT 03/19/2022 12:19 PM CDT Narrative [facility] - 03/19/2022 12:38 PM CDT Therapeutic range for unfractionated heparin at 0.3-0.7 U/mL is an aPTT value in the range of 71-100 seconds. Critical value for the PTT test is >= 122 seconds. Herber Knott MD HEMATOLOGY ORDERABLES Final Re sult Performing Organization Address [facility] de Phone Number [facility] [address] [place] [address] * (ABNORMAL) CMP (COMPREHENSIVE METABOLIC PANEL) (03/19/2022 11:55 AM CDT) SODIUM 134(L) 136 - 144 mmol/L 03/19/2022 12:52 PM CDT [facility] POTASSIUM 3.4(L) 3.5 - 5.1 mmol/L 03/19/2022 12:52 PM CDT [facility] CHLORIDE 95(L) 100 - 110 mmol/L 03/19/2022 12:52 PM CDT [facility] CO2, VENOUS 28 22 - 32 mmol/L 03/19/2022 12:52 PM CDT [facility] ANION GAP 14.4 8.0 - 20.0 mmol/L 03/19/2022 12:52 PM CDT [facility] GLUCOSE 112(H) 70 - 99 mg/dL 03/19/2022 12:52 PM CDT [facility] BUN 16 8 - 23 mg/dL 03/19/2022 12:52 PM [facility] CREATININE, BLOOD 0.90 0.60 - 1.10 mg/dL 03/19/2022 12:52 PM [facility] BUN/CREATININE RATIO 18 12 - 20 ratio 03/19/2022 12:52 PM [facility] TOTAL PROTEIN 6.9 6.0 - 8.3 g/dL 03/19/2022 12:52 PM T [facility] ALBUMIN 4.0 3.5 - 5.2 g/dL 03/19/2022 12:52 PM [facility] Comment: The colormetric methods used for the determination of Albumin may lead to falsely elevated test results in patients suffering from renal failure or insufficiency due to interference with other proteins. A/G RATIO 1.4 1.0 - 2.0 03/19/2022 12:52 PM T [facility] CALCIUM 9.1 8.9 - 10.3 mg/dL 03/19/2022 12:52 PM [facility] T BILI 0.4 <=1.2 mg/dL 03/19/2022 12:52 PM [facility] SGOT (AST) 14 <=32 U/L 03/19/2022 12:52 PM [facility] SGPT (ALT) 7 <=41 U/L 03/19/2022 12:52 PM T [facility] ALKALINE PHOSPHATASE 120(H) 35 - 105 U/L 03/19/2022 12:52 PM [facility] GFR, EST. NONAFRICAN 60 >=60 03/19/2022 [...] BE FASTING? No 03/19/2022 12:52 PM CDT [facility] Blood Venipuncture / Unknown 03/19/2022 11:55 AM CDT 03/19/2022 12:19 PM CDT Herber Knott MD CHEMISTRY ORDERABLES Final Res ult Performing Organization Address City/[facility]/ZIP Co de Phone Number [facility] [address] [place] [address] * (ABNORMAL) PROTIME (PT) (PROTHROMBIN TIME) (03/19/2022 11:55 AM CDT) PROTIME-PATIENT 26.7(H) 11.6 - 14.8 sec 03/19/2022 12:38 PM CDT [facility] INR 2.4(H) 0.9 - 1.2 03/19/2022 12:38 PM CDT [facility] Comment: Therapeutic Ranges INR = 2.0-3.0: Venous thromb, atrial fib, pul embolism, tissue heart valve, ami. INR = 2.5-3.5: Mechanical heart valve Critical value for INR is >/= 4.5 Blood Venipuncture / Unknown 03/19/2022 11:55 AM CDT 03/19/2022 12:19 PM CDT Herber Knott MD HEMATOLOGY ORDERABLES Final Re sult Performing Organization Address [facility] Co de Phone Number [facility] [address] [place] [address] * HEMOGLOBIN A1C W/ ESTIMATED GLUCOSE (03/19/2022 11:55 AM CDT) [facility] HGB-A1C 6.0 4.0 - 6.0 % 03/19/2022 1:02 PM CDT [facility] Est Average Glucose 125.5 mg/dL 03/19/2022 1:02 PM CDT [facility] Blood Venipuncture / Unknown 03/19/2022 11:55 AM CDT 03/19/2022 12:19 PM CDT Narrative [facility] - 03/19/2022 1:02 PM CDT HEMOGLOBIN A1C: DIABETIC PATIENTS: WELL-CONTROLLED: ?? 6.2 - 7.0 INTERMEDIATE WELL-CONTROLLED: ??7.0 - 9.0 POORLY-CONTROLLED: ??>9.0 us Herber Knott MD CHEMISTRY ORDERABLES Final Res ult [facility] [address] [address] documented in this encounter Visit Diagnoses Diagnosis Preop cardiovascular exam- Primary Pre-operative cardiovascular examination Preop examination Preoperative examination, unspecified Preop examination Preoperative examination, unspecified Preop cardiovascular exam Pre-operative cardiovascular examination Preop examination Preoperative examination, unspecified Preop cardiovascular exam Pre-operative cardiovascular examination documented in this encounter Care Teams Nuclear Medicine Specialist Relationship Specialty Start Date End Date Provider, Not On File [place] PCP - General 03/19/22 04/07/22 documented as of this encounter
--- OUTSIDE RECORDS SUMMARY | 2024-10-22 01:06 | XMS_ITS | Encounter Summary ---
Author Organization [facility] Address [address] [place] [address] Phone Care Team Providers Care Dynamicist Name Role Phone Provider, Not On File Primary Care Provider Unav ailable Reason for Visit * Auth/Cert Specialty Diagnoses / Procedures Referred By Lyndsey t Referred To Contact Diagnoses PRIMARY OSTEOARTHRITIS OF LEFT HIP Procedures TOTAL HIP ARTHROPLASTY Herber Knott MD [address], [address] [place] [address] Phone: tel: fax: Referral ID Status Reason Start Date Expiration Date Visits Re quested Visits Authorized [id number] 1 1 Encounter Details Date Type Department Care Team (Late st Contact Info) Description 04/07/2022 7:10 AM CDT - 04/07/2022 9:10 AM CDT Surgery [facility] Periop [address] [place] [address] Herber Knott MD [address], [address] [place] [address] LEFT TOTAL HIP ARTHROPLASTY, ANTERIOR APPROACH Surgery Details Date/Time Status Location OR Service Patient Class Case Class Case Type Trauma Case? 04/07/2022 7:10 AM Posted [facility] MAIN OR [address] [place] [address] Ambulatory Surgery Panel 1 Procedure LRB Anes Op Region Wound Class Comments LEFT TOTAL HIP ARTHROPLASTY, ANTERIOR APPROACH Left Combined General and Spinal Hip Clean Surgeon Surgeon Role Service Panel Herber Knott MD Primary Orthopaedic 1 Special Needs 5'4 179#, VACC. W/ BOOST X2, HX AFIB AND INTAKE COORDINATOR WARFARIN, TO HOLD 5 DAYS PRIOR TO [...] have questions regarding your equipment, please call [phone] (or toll free [phone]). documented in this encounter Medications at Time [...] PM CDT OPERATIVE REPORT Admit: 04/07/2022 CSN: [id number] Dictating Provider: [id number] Herber Knott MD DATE OF PROCEDURE: 04/07/2022 SURGEON: Herber Knott MD [employer] REPAIRER: VALENCIA Hernandez PREOPERATIVE DIAGNOSIS: Left hip osteoarthritis. [...] at the end of the case. JAKE/aracely /[id number] documented in this encounter Miscellaneous Notes * [...] WFL Bed Mobility Bed Mobility: supine-sit Scooting/Bridging [place] (Bed Mobility): modified independence Supine-Sit [place] (Bed Mobility): modified independence Comment (Bed Mobility): Patient able to perform bed mobility indpedently but slowly without bed rails or assist. Sit/Stand Transfer Level of Assistance (Sit-Stand Transfers): verbal cues, standby assist, 1 person to manage equipment Level of Assistance (STAND/SIT): 1 person to manage equipment Assistive Device (Transfers): walker, front-wheeled, gait belt Comment: Patient verbalized safe sequencing, then perfomred task with goo [facility] and supervision for optimal balance. Gait Mobility [place] Level (Gait): verbal cues, standby assist, 1 [...] Balance: mild impairment Functional Outcome Measure used: [facility]?6 Clicks?? Basic Mobility Inpatient Short Form How [...] Mast Ace - 04/08/2022 10:38 AM CDT [employer] - Transition Arrangements Coordinated Note - Transition Specialists do not coordinate all transitions or aspects of transitions- CONFIRM PATIENT READINESS WITH LPN CARE MANAGER PRIOR TO DISCHARGE Metal Riveter notified: yes, notified NIA Mazariegos at the following time 1038 via ME. Additional Details of Discharge Plan: Patient is [...] NOT heart failure or COVID [place] [employer] Care Management, Center of Expertise * Interdisciplinary - [place] Mast Ace - 04/08/2022 10:37 AM CDT [employer] Coordination Note SUMMARY - [employer] currently working the potential transition plan(s): ??? 04/08/2022 @ 10:30 AM CDT ([facility] [place]) Home Health [DIRECTOR OF REHABILITATION AND WELLNESS] (See detail within the referral type(s) below for information on what is needed to complete coordination Note - the Transition Specialists do not coordinate all transition types - please direct all question regarding hospital transition to the Metal Riveter) Readmission risk level (if calculated) is: Primary [...] HODAN PENDLETON MD Home Health Services Needed: [place] [facility] [place], physical therapy Needed Information / Documentation to complete Home Health coordination: ??? None [facility] - ACCEPTED & SELECTED - coordination complete Contact is [facility] ??? 04/08/2022 @ 10:31 AM CDT (KTM, TS) Received IB from NIA Mazariegos stating that patient is discharging today and will need home health. Notified [facility] and referral was sent via [facility] IB * Interdisciplinary - Delilah Woods [...] Plan Notification/ Verification 1. Patient's Phone numbers: [phone] (home) 2. 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 Patient [...] Plan: Home Health () 04/08/22 Patient/ patient customer counter representative's preferences regarding the discharge plan: Return [...] if applicable N/A - Medicare but Observation, [facility] Inpatient, Emergency, or Ambulatory Surgery patientclass Decision Maker / Frame Operator Information Patient is medical decision-maker New referral(s) for [employer] Home Health Agency [DIRECTOR OF REHABILITATION AND WELLNESS] Agency Choice(s) ??? [facility] List of Medicare approved HH agencies with quality measures and resource data (with any financial affiliations disclosed and/ or in network providers identified as applicable) provided to patient / family: Yes Provider who will be signing the ongoing Home Health plan of care: HODAN PENDLETON MD (Note: at least one PRIMARY service of [place] [facility] [place], physical therapy or speech is required to meet medical necessity criteria for DIRECTOR OF REHABILITATION AND WELLNESS) Home Health Services Needed: [place] [facility] [place], physical therapy Anticipated Needs: disease management and [...] I, or a nurse practitioner or physician???s teachers' assistant working with me, had a [id number] encounter with her that meets the requirements [...] instability (Describe what the RN, PT, or COMMUNITY HEALTH NURSE STAFF and other services will be doing in [...] Lnp-s, Pf, 30 Mcg/0.3 Ml Dose, Lavon-sucrose ([employer] [facility]) 03/16/2022 She has a past medical history of A-fib (HCC), Arthritis, snf use of blood thinners, and Hypertension. She [...] 04/08/2022, 6:56 AM CDT Cosigned by Herber Kontt MD at 04/21/2022 7:39 AM CDT * [...] Flowsheets Taken 04/07/2022 1940 by Karan Cruz, assistant teacher Interventions: care clustered medication offered but refused [...] past medical history of A-fib (HCC), Arthritis, joint terminal attack controller use of blood thinners, and Hypertension. Past [...] in standing positions. Functional Outcome Measure Used: [facility]-PAC 6 Clicks Daily Activity How much [...] past medical history of A-fib (HCC), Arthritis, joint terminal attack controller use of blood thinners, and Hypertension. Past [...] 4/5 Bed Mobility Bed Mobility: supine-sit Supine-Sit [place] (Bed Mobility): set up, verbal cues, 1 [...] leg forward to decrease pain Gait Mobility [place] Level (Gait): set up, verbal cues, contact [...] Balance: mild impairment Functional Outcome Measure used: [facility]?6 Clicks?? Basic Mobility Inpatient Short Form How [...] THAT URINE CULTURE COLLECTED ON 03/19/22 AT [facility] WAS POSITIVE, BUT PATIENT STATED SHE IS NOT TREATING WITH ANTIBIOTIC YET. SHE STATED THAT SHE WOULD FOLLOW UP WITH DR. KNOTT REGARDING THIS INFORMATION. * Padmini Soliz RN - 03/25/2022 8:42 AM CDT [facility] ADULT TEACHING Patient Name: Quin Talley : 1935 [facility]#: [id number] Person Educated Patient Ready to Learn Yes Teaching Method Phone HAVE REQUIRED COVID SWAB TEST ON 04/04/22 [id number], ALONG WITH TYPE AND CROSSMATCH BLOOD DRAW. [...] be allowed to accompany you to the [facility]. No children under theage of 16 will be allowed in the [facility] unless they are the patient. If [...] Patient Response: Verbalizes Understanding Patient assessed for language instructor during the preop interview and appropriate interventions [...] VACC. W/ BOOST X2, HX AFIB AND INTAKE COORDINATOR WARFARIN, TO HOLD 5 DAYS PRIOR TO [...] 12.00 10(3)/mcL 04/08/2022 6:55 AM CDT [facility] RBC 3.51(L) 3.80 - 5.30 10(6)/mcL 04/08/2022 6:55 AM CDT [facility] HEMOGLOBIN (HGB) 9.3(L) 12.0 - 15.8 g/dL 04/08/2022 6:55 AM CDT [facility] HEMATOCRIT (HCT) 30.2(L) 36.0 - 47.0 % 04/08/2022 6:55 AM CDT [facility] MCV 86.0 82.0 - 96.0 fL 04/08/2022 6:55 AM CDT [facility] MCH 26.5 26.0 - 34.0 pg 04/08/2022 6:55 AM CDT [facility] MCHC 30.8(L) 31.0 - 36.0 g/dL 04/08/2022 6:55 AM CDT [facility] PLATELET COUNT 160 140 - 440 10(3)/mcL 04/08/2022 6:55 AM CDT [facility] RDW 14.3 11.8 - 15.5 % 04/08/2022 6:55 AM CDT [facility] MPV 10.5 9.7 - 12.4 fL 04/08/2022 6:55 AM CDT [facility] NEUTROPHILS 88.2(H) 47.0 - 73.0 % 04/08/2022 6:55 AM CDT [facility] LYMPHOCYTES 6.1(L) 18.0 - 42.0 % 04/08/2022 6:55 AM CDT [facility] MONOCYTES 5.6 4.0 - 12.0 % 04/08/2022 6:55 AM CDT [facility] EOSINOPHILS 0.0 0.0 - 5.0 % 04/08/2022 6:55 AM CDT [facility] BASOPHILS 0.1 0.0 - 1.0 % 04/08/2022 6:55 AM CDT [facility] ABSOLUTE NEUTROPHILS 7.96(H) 1.60 - 7.70 10(3)/[facility] 04/08/2022 6:55 AM CDT [facility] ABSOLUTE LYMPHOCYTES 0.55(L) 1.30 - 3.20 10(3)/[facility] 04/08/2022 6:55 AM CDT [facility] ABSOLUTE MONOCYTES 0.51 0.20 - 1.00 10(3)/[facility] 04/08/2022 6:55 AM CDT [facility] ABSOLUTE EOSINOPHIL 0.00 0.00 - 0.40 10(3)/[facility] 04/08/2022 6:55 AM CDT [facility] ABSOLUTE BASOPHILS 0.01 0.00 - 0.10 10(3)/[facility] 04/08/2022 6:55 AM CDT [facility] NRBC PER 100 WBC 0 04/08/20 6:55 AM CDT [facility] RESULTS ARE CONSISTENT WITH PERIPHERAL SMEAR REVIEW Yes 04/08/2022 6:55 AM CDT [facility] Blood Venipuncture / Unknown 04/08/2022 4:02 AM CDT 04/08/2022 5:07 AM CDT us Kami Lyons PAC HEMATOLOGY ORDERABLES Fin al Result [facility] [address] [place] [address] * Protime (PT) (Prothrombin Time) (04/08/2022 4:02 AM CDT) Only the most recent of2 resultswithin the time period is included. Pathologist [facility] PROTIME-PATIENT 13.9 11.6 - 14.8 sec 04/08/2022 [...] Lyons PAC HEMATOLOGY ORDERABLES Fin al Result [facility] [address] [place] [address] * (ABNORMAL) BMP with Ca, Total (04/08/2022 4:02 AM CDT) Pathologist [facility] SODIUM 131(L) 136 - 144 mmol/L 04/08/2022 5:27 AM CDT [facility] POTASSIUM 3.9 3.5 - 5.1 mmol/L 04/08/2022 5:27 AM CDT [facility] CHLORIDE 98(L) 100 - 110 mmol/L 04/08/2022 5:27 AM CDT [facility] CO2, VENOUS 26 22 - 32 mmol/L 04/08/2022 5:27 AM CDT [facility] ANION GAP 10.9 8.0 - 20.0 mmol/L 04/08/2022 5:27 AM CDT [facility] GLUCOSE 133(H) 70 - 99 mg/dL 04/08/2022 5:27 AM CDT [facility] BUN 22 8 - 23 mg/dL 04/08/2022 5:27 AM CDT [facility] CREATININE, BLOOD 1.44(H) 0.60 - 1.10 mg/dL 04/08/2022 5:27 AM CDT [facility] BUN/CREATININE RATIO 15 12 - 20 [...] BEEN FASTING? No 04/08/2022 5:27 AM CDT [facility] Blood Venipuncture / Unknown 04/08/2022 4:02 AM CDT 04/08/2022 5:07 AM CDT Kami Lyons PAC CHEMISTRY ORDERABLES Noris l Result [facility] [address] [place] [address] * APTT (PTT) (04/07/2022 11:04 AM CDT) PTT 31 24 - 36 sec 04/07/2022 11:30 AM CDT [facility] Blood Venipuncture / Unknown 04/07/2022 11:04 AM CDT 04/07/2022 11:14 AM CDT Narrative [facility] - 04/07/2022 11:30 AM CDT Therapeutic range for unfractionated heparin at 0.3-0.7 U/mL is an aPTT value in the range of 71-100 seconds. Critical value for the PTT test is >= 122 seconds. us Herber Knott MD HEMATOLOGY ORDERABLES Final Re sult [facility] [address] [facility] [place] [address] * XR PELVIS AP PORT (04/07/2022 9:57 [...] AM T: ??04/07/2022 10:34 AM Report ID: [id number] Reading Location: ??[id number] Procedure Note Marcos Marquez MD - 04/07/2022 [...] Marcos Marquez M.D. KN: KN Report ID: [id number] Reading Location: [id number] IMPRESSION: Recent postoperative changes from left hip arthroplasty. us Kami Lyons PAC IMG DIAGNOSTIC ORDERABLES Final Result * Pathology Surgical (04/07/2022 9:16 AM CDT) Case Report Surgical Pathology Report ? Case: [id number] ? Authorizing Provider: ??Herber Knott MD ?Collected: ? 04/07/2022 09:16 AM ? [facility] ? Received: ?04/07/2022 10:57 AM ? [facility] ? Main OR ? Pathologist: ? Duncan Dillon MD ? Specimen: ?Hip, DEBRIDED BONE AND TISSUE, LEFT HIP ? 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 - HYPOCELLULAR MARROW. - NEGATIVE FOR MALIGNANCY OR SIGNIFICANT INFLAMMATION. 04/09/2022 8:57 AM [facility] Pre-Operative Diagnosis PRIMARY OSTEOARTHRITIS OF LEFT HIP 04/09/2022 8:57 AM T [facility] Gross Description A. DEBRIDED BONE AND [...] femoral head there are areas of eburnation. Cartography Supervisor sample will be submitted in cassette A1 after proper fixation and decalcification. KS/sb 04/09/2022 8:57 AM T [facility] Microscopic Description Microscopic examination was performed which supports the final diagnosis. All control tissues stained appropriately. 04/09/2022 8:57 AM CDT [facility] Tissue HIP REGION STRUCTURE / Unknown 04/07/2022 9:16 AM CDT 04/07/2022 10:57 AM CDT us Herber Knott MD PATHOLOGY/CYTOLOGY ORDERABLES Final Result [facility] [address] [place] [address] * XR SURGICAL EXAM (04/07/2022 9:14 AM [...] AM T: ??04/08/2022 9:29 AM Report ID: [id number] Reading Location: ??[id number] Procedure Note Jagdish Ratliff MD - 04/08/2022 [...] Jagdish Ratliff M.D. LB: MARISSA Report ID: [id number] Reading Location: [id number] IMPRESSION: 1. Intraoperative fluoroscopic image guidance utilized during a left hip arthroplasty. Please see operative report for further details. Herber Knott MD IMG DIAGNOSTIC ORDERABLES Noris l Result * ABO/RH (D) Recheck (04/07/2022 6:20 AM CDT) ABO TYPING O 04/07/2022 7:20 AM CDT [facility] BLOOD BANK RH Positive 04/07/2022 7:20 AM CDT [facility] BLOOD [facility] Blood Venipuncture / Unknown 04/07/2022 6:20 AM CDT 04/07/2022 6:24 AM CDT Duncan Dillon MD BLOOD BANK ORDERABLES Final Result [facility] BLOOD BANK [address] [place] [address] * Culture, Urine (04/07/2022 5:34 AM CDT) [facility] CULTURE RESULTS MIXED GROWTH OF ONE OR MORE DISTAL URETHRAL CONTAMINANTS 04/08/2022 1:28 PM CDT [facility] Urine URINE SPECIMEN COLLECTION, CLEAN CATCH / Unknown Non-Phlebotomy Collection / Unknown 04/07/2022 5:34 AM CDT 04/07/2022 5:41 AM CDT Herber Knott MD MICROBIOLOGY - GENERAL ORDERAB LES Final Result [facility] [address] [place] [address], * (ABNORMAL) URINALYSIS REFLEX IF INDICATED BY [...] CLARITY Slightly Cloudy 04/07/2022 6:22 AM CDT [facility] WBC (Urine) 11-20(A) Negative, 0-5 /hpf 04/07/2022 6:22 AM CDT [facility] URINE RBC'S 0-2 Negative, 0-2 /hpf 04/07/2022 6:22 AM CDT [facility] EPITHELIAL CELLS Moderate amount /lpf 04/07/2022 6:22 AM CDT [facility] BACTERIA, URINE Many(A) Negative /hpf 04/07/2022 6:22 AM CDT [facility] Urine URINE SPECIMEN COLLECTION, CLEAN CATCH / Unknown Non-Phlebotomy Collection / Unknown 04/07/2022 5:34 AM CDT 04/07/2022 5:41 AM CDT Herber Knott MD URINE ORDERABLES Final Result [facility] [place] [address] documented in this encounter Visit Diagnoses Not [...] CDT 20 mL/hr 20 mL/hr lidocaine-EPINEPHrine 1 %-1:909142 injection ONCE (in OR), Starting on Wed04/07/22 [...] 2) increasing dosage, or 3) changing to COLLEGE ASSOCIATE., POST-OP (NURSING UNIT) lidocaine-EPINEPHrine 1 %-1:006839 injection (CANCELED) ONCE (in OR), Starting on [...] 2) increasing dosage, or 3) changing to COLLEGE ASSOCIATE., POST-OP (NURSING UNIT) polymyxin B injection (CANCELED) [...] UNIT) documented in this encounter Care Teams Dynamicist Relationship Specialty Start Date End Date Provider, Not On File [place] PCP - General 03/19/22 04/07/22 documented as of this encounter
--- OUTSIDE RECORDS SUMMARY | 2024-10-22 01:06 | XMS_ITS | Encounter Summary ---
Author Organization [employer] Care Team Providers Care Slot Tag Inserter Name Role Phone Provider, Not On File [...] on filedocumented in this encounter Care Teams Slot Tag Inserter Relationship Specialty Start Date End Date Provider, Not On File [place] PCP - General 03/19/22 04/07/22 documented as of this encounter
--- OUTSIDE RECORDS SUMMARY | 2024-10-22 01:06 | XMS_ITS | Encounter Summary ---
Author Organization [facility] Address [address] [place] [address] Phone Care Team Providers Care Pivot End Polisher Name Role Phone Provider, Not On File Primary Care Provider Unav ailable Denis Pendleton MD Primary Care Provider [phone] Reason for Visit * Auth/Cert Specialty Diagnoses / Procedures Referred By Contac t Referred To Contact Diagnoses PRIMARY OSTEOARTHRITIS OF LEFT HIP Procedures TOTAL HIP ARTHROPLASTY Herber Knott MD [address], [address] [place] [address] Phone: tel: fax: Referral ID Status Reason Start Date Expiration Date Visits Re quested Visits Authorized [id number] 1 1 Encounter Details Date Type Department Care Team (Latest Contact Info) Description 04/07/2022 5:12 AM CDT - 04/08/2022 4:49 PM CDT Hospital Encounter [facility] [address] [place] [phone] Herber Knott MD [address], [address] [place] [address] Discharge Disposition: Home Health Care [...] 04/08/2022 10:23 AM CDT You have chosen [facility] Health Care for the nursing, physical therapy your doctor has ordered. They will call you to schedule initial visit. If you have not heard from them within 24 hours of your discharge, please call ( ). [facility] Home Medical is providing your wheeled walker. This has been delivered to your hospital room. If you have questions regarding your equipment, please call [phone] (or toll free [phone]). documented in this encounter Medications at Time [...] PM CDT OPERATIVE REPORT Admit: 04/07/2022 CSN: [id number] Dictating Provider: [id number] Herber Knott MD DATE OF PROCEDURE: 04/07/2022 SURGEON: Herber Knott MD PHOTOGRAPHIC EQUIPMENT ASSEMBLER: VALENCIA Hernandez PREOPERATIVE DIAGNOSIS: Left hip osteoarthritis. [...] at the end of the case. JAKE/aracely /[id number] documented in this encounter Miscellaneous Notes * [...] WFL Bed Mobility Bed Mobility: supine-sit Scooting/Bridging [place]ell[place] (Bed Mobility): modified independence Supine-Sit [place] (Bed Mobility): modified independence Comment (Bed Mobility): Patient able to perform bed mobility indpedently but slowly without bed rails or assist. Sit/Stand Transfer Level of Assistance (Sit-Stand Transfers): verbal cues, standby assist, 1 person to manage equipment Level of Assistance (STAND/SIT): 1 person to manage equipment Assistive Device (Transfers): walker, front-wheeled, gait belt Comment: Patient verbalized safe sequencing, then perfomred task with [facility] and supervision for optimal balance. Gait Mobility [place] Level (Gait): verbal cues, standby assist, 1 [...] Balance: mild impairment Functional Outcome Measure used: [facility] AM-PAC?6 Clicks?? Basic Mobility Inpatient Short [...] Mast Ace - 04/08/2022 10:38 AM CDT Extractor Loader And Unloader - Transition Arrangements Coordinated Note - Transition Specialists do not coordinate all transitions or aspects of transitions- CONFIRM PATIENT READINESS WITH ORGAN BUILDER PRIOR TO DISCHARGE Camp Manager notified: yes, notified NIA Mazariegos at the following time 1038 via AR. Additional Details of Discharge Plan: Patient is discharging home with home health. [facility] will call patient to schedule SOC. Home Health - coordination complete with [facility] (Home Health Agency) Updates for Elitra???s discharge sent to agencies and agency personnel notified: yes, notified [facility] at the following time 1029 via [employer] IB. Home Agency added to/ verified on [...] NOT heart failure or COVID Bonny Mast Ext[facility] Loader [employer] Unloader Care Management, [facility] Expertise * Interdisciplinary - Angeles Mast Ace - 04/08/2022 10:37 AM CDT Extractor Loader And Unloader Coordination Note SUMMARY - Extractor Loader And Unloader currently working the potential transition plan(s): ??? 04/08/2022 @ 10:30 AM CDT ([facility] [place]) Home Health [MANAGER COMMODITIES] (See detail within the referral type(s) below for information on what is needed to complete coordination Note - the Transition Specialists do not coordinate all transition types - please direct all question regarding hospital transition to the Camp Manager) Readmission risk level (if calculated) is: Primary [...] DENIS PENDLETON MD Home Health Services Needed: jail, physical therapy Needed Information / Documentation to complete Home Health coordination: ??? None [facility] - ACCEPTED & SELECTED - coordination complete Contact is [facility] ??? 04/08/2022 @ 10:31 AM CDT ([facility]ERAL[facility] [place]) Received IB from NIA Mazariegos stating that patient is discharging today and will need home health. Notified [facility] and referral was sent via [employer] IB * Edwin - Delilah [place] - [...] Plan Notification/ Verification 1. Patient's Phone numbers: [phone] (home) 2. Patient's preferred discharge phone number [...] if applicable N/A - Medicare but Observation, [facility] Inpatient, Emergency, or Ambulatory Surgery patientclass Decision [...] (compare to working DRG): 1 Reason for Camp ManagerSerology Teacher: Consult for home health and walker Quin [...] PCP is DENIS PENDLETON MD located in [place] and she is active with them. 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 [facility] List of Medicare approved HH agencies with quality measures and resource data (with any financial affiliations disclosed and/ or in network providers identified as applicable) provided to patient / family: Yes Provider who will be signing the ongoing Home Health plan of care: DENIS PENDLETON MD (Note: at least one PRIMARY service of jail, physical therapy or speech is required to meet medical necessity criteria for MANAGER COMMODITIES) Home Health Services Needed: jail, physical therapy Anticipated Needs: disease management and [...] I, or a nurse practitioner or physician???s social work assistant working with me, had a [id number] encounter with her that meets the requirements [...] instability (Describe what the RN, PT, or ICT SALES ASSISTANT and other services will be doing in [...] Lnp-s, Pf, 30 Mcg/0.3 Ml Dose, Lavon-sucrose ([employer] thomas top) 03/16/2022 She has a past medical history of A-fib (HCC), Arthritis, skilled nursing use of blood thinners, and Hypertension. 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 Past [...] in standing positions. Functional Outcome Measure Used: [place] AM-PAC 6 Clicks Daily Activity How much [...] past medical history of A-fib (HCC), Arthritis, skilled nursing use of blood thinners, and Hypertension. Past [...] 4/5 Bed Mobility Bed Mobility: supine-sit Supine-Sit [place] (Bed Mobility): set up, verbal cues, 1 [...] leg forward to decrease pain Gait Mobility [place] Level (Gait): set up, verbal cues, contact [...] Balance: mild impairment Functional Outcome Measure used: [facility] AM-PAC?6 Clicks?? Basic Mobility Inpatient Short [...] THAT URINE CULTURE COLLECTED ON 03/19/22 AT [facility] WAS POSITIVE, BUT PATIENT STATED SHE IS NOT TREATING WITH ANTIBIOTIC YET. SHE STATED THAT SHE WOULD FOLLOW UP WITH DR. KNOTT REGARDING THIS INFORMATION. * Interdisciplinary - Padmini Goddard RN - 03/25/2022 8:42 AM CDT [facility] ADULT TEACHING Patient Name: Quin Talley : 1935 CSN#: [id number] Person Educated Patient Ready to Learn Yes Teaching Method Phone HAVE REQUIRED COVID SWAB TEST ON 04/04/22 [id number], ALONG WITH TYPE AND CROSSMATCH BLOOD DRAW. [...] be allowed to accompany you to the [facility]. No children under theage of 16 will be allowed in the [facility] unless they are the patient. If the [...] Patient Response: Verbalizes Understanding Patient assessed for english language learner teacher during the preop interview and appropriate interventions [...] VACC. W/ BOOST X2, HX AFIB AND SENIOR CARE WARFARIN, TO HOLD 5 DAYS PRIOR TO [...] - 12.00 10(3)/mcL 04/08/2022 6:55 AM CDT [facility] RBC 3.51(L) 3.80 - 5.30 10(6)/mcL 04/08/2022 6:[address] [facility] HEMOGLOBIN (HGB) 9.3(L) 12.0 - 15.8 g/dL 04/08/2022 6:55 AM CDT [facility] HEMATOCR[facility] (HCT) 30.2(L) 36.0 - 47.0 % 04/08/2022 6:55 AM CDT [facility] MCV 86.0 82.0 - 96.0 fL 04/08/2022 6:[address] [facility] MCH 26.5 26.0 - 34.0 pg 04/08/2022 6:55 AM CDT [facility] MCHC 30.8(L) 31.0 - 36.0 g/dL 04/08/2022 6:[address] [facility] PLATELET COUNT 160 140 - 440 10(3)/mcL 04/08/2022 6:[address] [facility] RDW 14.3 11.8 - 15.5 % 04/08/2022 6:[address] [facility] MPV 10.5 9.7 - 12.4 fL 04/08/2022 6:[address] [facility] NEUTROPHILS 88.2(H) 47.0 - 73.0 % 04/08/2022 6:55 AM CDT [facility] LYMPHOCYTES 6.1(L) 18.0 - 42.0 % 04/08/2022 6:55 AM CDT [facility] MONOCYTES 5.6 4.0 - 12.0 % 04/08/2022 6:[address] [facility] EOSINOPHILS 0.0 0.0 - 5.0 % 04/08/2022 6:55 AM CDT [facility] BASOPHIL[facility] 0.1 0.0 - 1.0 % 04/08/2022 6:55 AM CDT [facility] ABSOLUTE NEUTROPHILS 7.96(H) 1.60 - 7.70 10(3)/mcL 04/08/2022 6:55 AM CDT [facility] ABSOLUTE LYMPHOCYTES 0.55(L) 1.30 - 3.20 10(3)/[facility] 04/08/2022 6:55 AM CDT [facility] ABSOLUTE MONOCYTES 0.51 0.20 - 1.00 10(3)/[facility] 04/08/2022 6:55 AM CDT [facility] ABSOLUTE EOSINOPHIL 0.00 0.00 - 0.40 10(3)/[facility] 04/08/2022 6:55 AM CDT [facility] ABSOLUTE BASOPHILS 0.01 0.00 - 0.10 10(3)/[facility] 04/08/2022 6:55 AM CDT [facility] NRBC PER 100 WBC 0 04/08/20 6:[address] [facility] RESULTS ARE CONSISTENT WITH PERIPHERAL SMEAR REVIEW Yes 04/08/2022 6:[address] [facility] Blood Venipuncture / Unknown 04/08/2022 4:02 AM CDT 04/08/2022 5:07 AM CDT Kami Lyons PAC HEMATOLOGY ORDERABLES Fin al Result [facility] [address] [place] [address] * Protime (PT) (Prothrombin Time) (04/08/2022 4:02 AM CDT) Only the most recent of2 resultswithin the time period is included. PROTIME-PATIENT 13.9 11.6 - 14.8 sec 04/08/2022 5:34 AM CDT [facility] INR 1.1 0.9 - 1.2 04/08/2022 5:34 AM CDT [facility] Comment: Therapeutic Ranges INR = 2.0-3.0: Venous thromb, atrial fib, pul embolism, tissue heart valve, ami. INR = 2.5-3.5: Mechanical heart valve Critical value for INR is >/= 4.5 Blood Venipuncture / Unknown 04/08/2022 4:02 AM CDT 04/08/2022 5:07 AM CDT us Kami Lyons PAC HEMATOLOGY ORDERABLES Fin al Result [facility] [address] [place] [address] * (ABNORMAL) BMP with Ca, Total (04/08/2022 4:02 AM CDT) SODIUM 131(L) 136 - 144 mmol/L 04/08/2022 5:27 AM CDT [facility] POTASSIUM 3.9 3.5 - 5.1 mmol/L 04/08/2022 5:27 AM CDT [facility] CHLORIDE 98(L) 100 - 110 mmol/L 04/08/2022 5:[address] [facility] CO2, VENOUS 26 22 - 32 mmol/L 04/08/2022 5:27 AM CDT [facility] ANION GAP 10.9 8.0 - 20.0 mmol/L 04/08/2022 5:27 AM CDT [facility] GLUCOSE 133(H) 70 - 99 mg/dL 04/08/2022 5:27 AM CDT [facility] BUN 22 8 - 23 mg/dL 04/08/2022 5:27 AM CDT [facility] CREATININE, BLOOD 1.44(H) 0.60 - 1.10 mg/dL 04/08/2022 5:27 AM CDT [facility] BUN/CREATININE RATIO 15 12 - 20 ratio 04/08/2022 5:27 AM CDT [facility] CALCIUM 8.0(L) 8.9 - 10.3 mg/dL 04/08/2022 5:27 AM CDT [facility] GFR, EST. NONAFRICAN 35(L) >=60 04/08/2022 5:27 AM CDT [facility] GFR, EST. 42(L) >=60 04/08/2022 5:27 AM CDT [facility] Comment: Creatinine Clearance is the preferred criteria for selecting drug dose adjustments in renally impaired patients. ??The GFR is provided as additional pertinent clinical information. GFR is reported in mL/min/1.73 sq m. HAS THE PATIENT BEEN FASTING? No 04/08/2022 5:27 AM CDT [facility] Blood Venipuncture / Unknown 04/08/2022 4:02 AM CDT 04/08/2022 5:07 AM CDT us Kami Lyons PAC CHEMISTRY ORDERABLES Noris l Result Performing Organization Address [facility] Co de Phone Number [facility] [address] [place] [address] * APTT (PTT) (04/07/2022 11:04 AM CDT) PTT 31 24 - 36 sec 04/07/2022 11:30 AM CDT [facility] Blood Venipuncture / Unknown 04/07/2022 11:04 AM CDT 04/07/2022 11:[address] [facility] - 04/07/2022 11:30 AM CDT Therapeutic range for unfractionated heparin at 0.3-0.7 U/mL is an aPTT value in the range of 71-100 seconds. Critical value for the PTT test is >= 122 seconds. us Herber Knott MD HEMATOLOGY ORDERABLES Final Re sult Performing Organization Address City/[facility]/ZIP Co de Phone Number [facility] [address] [place] [address] * XR PELVIS AP PORT (04/07/2022 9:57 [...] AM T: ??04/07/2022 10:34 AM Report ID: [id number] Reading Location: ??[id number] Procedure Note Marcos Marquez MD - 04/07/2022 [...] signed by Marcos HESS: DESHAWN Report ID: [id number] Reading Location: [id number] IMPRESSION: Recent postoperative changes from left hip arthroplasty. [facility] PAC IMG DIAGNOSTIC ORDERABLES Final Result * Pathology Surgical (04/07/2022 9:16 AM CDT) Case Report Surgical Pathology Report ? Case: [id number] ? Authorizing Provider: ??Herber Knott MD ?Collected: ? 04/07/2022 09:16 AM ? Ordering Location: ? [facility] ? Received: ?04/07/2022 10:57 AM ? [facility] ? Main OR ? Pathologist: ? Duncan Dillon MD ? Specimen: ?Hip, DEBRIDED BONE AND TISSUE, LEFT HIP ? 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 - HYPOCELLULAR MARROW. - NEGATIVE FOR MALIGNANCY OR SIGNIFICANT INFLAMMATION. 04/09/2022 8:[address] [facility] Pre-Operative Diagnosis PRIMARY OSTEOARTHRITIS OF LEFT HIP 04/09/2022 8:[address] [facility] Gross Description A. DEBRIDED BONE [...] femoral head there are areas of eburnation. Ingredient Scaler Helper sample will be submitted in cassette A1 after proper fixation and decalcification. KS/sb 04/09/2022 8:[address] [facility] Microscopic Description Microscopic examination was performed which supports the final diagnosis. All control tissues stained appropriately. 04/09/2022 8:[address] [facility] Tissue HIP REGION STRUCTURE / Unknown 04/07/2022 9:16 AM CDT 04/07/2022 10:57 AM CDT us Herber Knott MD PATHOLOGY/CYTOLOGY ORDERABLES Final Result [facility] [address] [place] [address] * XR SURGICAL EXAM (04/07/2022 9:14 AM [...] AM T: ??04/08/2022 9:29 AM Report ID: [id number] Reading Location: ??[id number] Procedure Note Jagdish Ratliff MD - 04/08/2022 [...] Jagdish Ratliff M.D. LB: LB Report ID: [id number] Reading Location: [id number] IMPRESSION: 1. Intraoperative fluoroscopic image guidance utilized during a left hip arthroplasty. Please see operative report for further details. Herber Knott MD IMG DIAGNOSTIC ORDERABLES Noris zunilda Result * ABO/RH (D) Recheck (04/07/2022 6:20 AM CDT) ABO TYPING O 04/07/2022 7:20 AM CDT [facility] RH Positive 04/07/2022 7:20 AM CDT [facility] Blood Venipuncture / Unknown 04/07/2022 6:20 AM CDT 04/07/2022 6:24 AM CDT us Duncan Dillon MD BLOOD BANK ORDERABLES Final Result [facility] [place] [address] * Culture, Urine (04/07/2022 5:34 AM CDT) [facility] CULTURE RESULTS MIXED GROWTH OF ONE OR MORE DISTAL URETHRAL CONTAMINANTS 04/08/2022 1:28 PM CDT [facility]rine URINE SPECIMEN COLLECTION, CLEAN CATCH / Unknown Non-Phlebotomy Collection / Unknown 04/07/2022 5:34 AM CDT 04/07/2022 5:41 AM CDT us Herber Knott MD MICROBIOLOGY - GENERAL ORDERAB LES Final Result [facility] [address] [place] [address], [place] * (ABNORMAL) URINALYSIS REFLEX IF INDICATED BY ABNORMAL RESULTS (04/07/2022 5:34 AM CDT) Pathologist [facility] SPECIFIC GRAVITY 1.015 1.003 - 1.030 04/07/2022 6:22 AM CDT [facility] URINE PH 5.0 5.0 - 9.0 04/07/2022 6:22 AM CDT [facility] WBC ESTERASE 500 /uL(A) Negative 04/07/2022 6:22 AM CDT [facility] NITRITE Negative Negative 04/07/2022 6:22 AM CDT [facility] PROTEIN, RANDOM URINE Negative Negative 04/07/2022 6:22 AM CDT [facility] URINE GLUCOSE, QUAL Negative Negative 04/07/2022 6:22 AM CDT [facility] URINE KETONES Negative Negative 04/07/2022 6:22 AM CDT [facility] UROBILINOGEN Normal Normal mg/dL 04/07/2022 6:22 AM CDT [facility] URINE BLOOD Negative Negative bill/ul 04/07/2022 6:22 AM CDT [facility] URINALYSIS COLOR Yellow 04/07/20 6:22 AM CDT [facility] URINALYSIS CLARITY Slightly Cloudy 04/07/2022 6:[address] [facility] WBC (Urine) 11-20(A) Negative, 0-5 /hpf 04/07/2022 6:22 AM CDT [facility] URINE RBC'S 0-2 Negative, 0-2 /hpf 04/07/2022 6:22 AM CDT [facility] EPITHELIAL CELLS Moderate amount /lpf 04/07/2022 6:22 AM CDT [facility] BACTERIA, URINE Many(A) Negative /hpf 04/07/2022 6:[address] [facility] Urine URINE SPECIMEN COLLECTION, CLEAN CATCH / Unknown Non-Phlebotomy Collection / Unknown 04/07/2022 5:34 AM CDT 04/07/2022 5:41 AM CDT Herber Knott MD URINE ORDERABLES Final Result [facility] [place] [address] documented in this encounter Visit Diagnoses Diagnosis [...] 2) increasing dosage, or 3) changing to HEBREW CANTOR., POST-OP (NURSING UNIT) lidocaine-EPINEPHrine 1 %-1:[id number] injection (CANCELED) ONCE (in OR), Starting on [...] 2) increasing dosage, or 3) changing to HEBREW CANTOR., POST-OP (NURSING UNIT) polymyxin B injection (CANCELED) [...] UNIT) documented in this encounter Care Teams Pivot End Polisher Relationship Specialty Start Date End Date Provider, Not On File [place] PCP - General 03/19/22 04/07/22 Denis Pendleton MD [address] [place] [address] PCP - General Pediatrics 04/08/22 02/15/24 documented as of this encounter
--- OUTSIDE RECORDS SUMMARY | 2024-10-22 01:06 | XMS_ITS | Encounter Summary ---
Author Organization [facility] Address [address] [place] [address] Phone Care Team Providers Care Bead Forming Machine Set Up Operator Name Role Phone Provider, Not On File Primary Care Provider Unav ailable Denis Platt MD Primary Care Provider Gideon Campbell MD Primary Care Provider Encounter Details Date Type Department Care Team (Late st Contact Info) Description 03/24/2022 Transcribe Orders [facility] [address] [place] [id number] Herber Knott MD [address] [place] [address], [address] [place] [address] Pre-op testing (Primary Dx) Social [...] ABO TYPING O 04/04/2022 11:22 AM CDT [facility] RH Positive 04/04/2022 11:22 AM CDT [facility] ABSC Negative 04/04/2022 11:22 AM CDT [facility] Blood Venipuncture / Unknown 04/04/2022 9:50 AM CDT 04/04/2022 10:04 AM CDT Herber Knott MD BLOOD BANK ORDERABLES Edited R esult - Final [facility] [address] [place] [address] * SARS-COV-2 BY MOLECULAR (04/04/2022 9:46 AM CDT) Pathologist [facility] SARSCOV2 NOT DETECTED (Referenc e Range for this test is Not Detected) [facility] [place] ID NOW 04/04/2022 10:33 AM CDT [facility] Comment:This test was perfor med by a MOLECULAR, NON-PCR method Other NASAL STRUCTURE / Unknown Non-Phlebotomy Collection / Unknown 04/04/2022 9:46 AM CDT 04/04/2022 10:04 AM CDT Narrative [facility] - 04/04/2022 10:33 AM CDT This [...] information for Clinicians can be found at: https://www.fda.gov/media/768074/download Additional information for Patients can be found at: https://www.fda.gov/media/701969/download us Herber Knott MD MICROBIOLOGY - GENERAL ORDERAB LES Final Result [facility] [address] [place] [address] documented in this encounter Visit Diagnoses Diagnosis Pre-op testing- Primary Preoperative examination, unspecified documented in this encounter Care Teams Bead Forming Machine Set Up Operator Relationship Specialty Start Date End Date Provider, Not On File [place] PCP - General 03/19/22 04/07/22 Denis Platt MD [address] [place] [address] PCP - General Pediatrics 04/08/22 02/15/24 Gideon Campbell MD [address] [place] [address] [place] [address] PCP - General Blower Feeder Dyed Raw Stock 02/16/24 documented as of this encounter
--- OUTSIDE RECORDS SUMMARY | 2024-10-22 01:06 | XMS_ITS | Encounter Summary ---
Author Organization [facility] Address [address] [place] [address] Phone Care Team Providers Care Dot Net Architect Name Role Phone Provider, Not On File Primary Care Provider Unav ailable Reason for Visit * Auth/Cert Specialty Diagnoses / Procedures Referred By Lyndsey farmer Referred To Contact Diagnoses PRIMARY OSTEOARTHRITIS OF LEFT HIP Procedures TOTAL HIP ARTHROPLASTY Herber Knott MD [address] [place] [address], [address] [place] [address] Phone: tel: fax: Referral ID Status Reason Start Date Expiration Date Visits Re quested Visits Authorized [id number] 1 1 Encounter Details Date Type Department Care Team (Late st Contact Info) Description 04/07/2022 7:29 AM CDT [facility] [address] [place] [address] Pito Sepulveda, [address] [place] [address] Malik Doss APRN, [facility] [address] [place] [address] Anesthesia Record Procedure Summary Procedure Name Responsible [...] Procedure Summary Date: 04/07/22 Room / Location: [facility] OR / [facility] Anesthesia Start: 728 Anesthesia Stop: 937 Procedure: [...] Procedure Summary Date: 04/07/22 Room / Location: [facility] Anesthesia Start: 728 Anesthesia Stop: 937 [...] LMA LMA Staffing Performed: anesthesiologist Anesthesiologist: Pito Sepulvead DO Airway Details Overall Difficulty: Easy Preoxygenated: [...] HIP ARTHROPLASTY, ANTERIOR APPROACH (Left Hip) Location: [facility] MA[facility] OR 05 / [facility] Surgeons: Herber Knott MD Patient summary reviewed [...] mg documented in this encounter Care Teams Dot Net Architect Relationship Specialty Start Date End Date Provider, Not On File [place] PCP - General 03/19/22 04/07/22 documented as of this encounter
--- OUTSIDE RECORDS SUMMARY | 2024-10-22 01:06 | XMS_ITS | Encounter Summary ---
Author Organization [email or web address] Care Team Providers Care Fountain Waitress/Waiter Name Role Phone Provider, Not On File [...] on filedocumented in this encounter Care Teams Fountain Waitress/Waiter Relationship Specialty Start Date End Date Provider, Not On File [place] PCP - General 03/19/22 04/07/22 documented as of this encounter
--- OUTSIDE RECORDS SUMMARY | 2024-10-22 06:26 | XMS_ITS | Encounter Summary ---
Author Organization [facility] Address [address] [place] [address] Phone Care Team Providers Care Tourist Camp Attendant Name Role Phone Provider, Not On File Primary Care Provider Unav ailable Reason for Referral * Radiology Services (Routine) - Closed Specialty Diagnoses / Procedures Referred By Lyndsey farmer Referred To Contact Radiology Diagnoses Preop examination Procedures EKG 12 LEAD Herber Knott MD Phone: tel: fax: Referral ID Status Reason Start Date Expiration Date Visits Re quested Visits Authorized [id number] Closed 03/19/2022 1 1 Reason for Visit * Radiology Services (Routine) - Closed Specialty Diagnoses / Procedures Referred By Lyndsey farmer Referred To Contact Radiology Diagnoses Preop examination Procedures EKG 12 LEAD Herber Knott MD Phone: tel: fax: Referral ID Status Reason Start Date Expiration Date Visits Re quested Visits Authorized [id number] Closed 03/19/2022 1 1 Encounter Details Date Type Department Care Team (Latest Contact Info) Description 03/19/2022 11:30 AM CDT - 03/19/2022 12:58 PM CDT [facility] 1 [place] [address] Herber Knott MD [address] [place] [address], [address] [place] [address] Discharge Disposition: Discharged to home or Selfcare [...] QTC CALCULATION 454 ms EXTERNAL EKG P [place] 75 degrees EXTERNAL EKG R [place] -56 degrees EXTERNAL EKG T [place] 53 degrees EXTERNAL EKG 03/19/2022 1:11 PM CDT Impressions EXTERNAL EKG - 03/20/2022 12:47 PM CDT Sinus rhythm Left axis deviation RBBB with left anterior fascicular block Possible anterior infarct - age undetermined Low QRS voltages in precordial leads Comparison Summary: No serial comparison made Summary: Abnormal ECG Confirmed by Giuliano Morrell [id number] on 03/20/2022 12:47:32 PM Narrative Procedure Note Petros Sher MD - 03/20/2022 IMPRESSION: Sinus rhythm Left axis deviation RBBB with left anterior fascicular block Possible anterior infarct - age undetermined Low QRS voltages in precordial leads Comparison Summary: No serial comparison made Summary: Abnormal ECG Confirmed by Giuliano Morrell [id number] on 03/20/2022 12:47:32 PM us Herber Knott MD IMG ECG ORDERABLES Final Resul t EXTERNAL EKG documented in this encounter Visit Diagnoses Diagnosis Preop examination Preoperative examination, unspecified Preop cardiovascular exam Pre-operative cardiovascular examination documented in this encounter Care Teams Tourist Camp Attendant Relationship Specialty Start Date End Date Provider, Not On File [place] PCP - General 03/19/22 04/07/22 documented as of this encounter
--- OUTSIDE RECORDS SUMMARY | 2024-10-22 06:26 | XMS_ITS | Encounter Summary ---
Author Organization [facility] Address [address] [place] [address] Phone Care Team Providers Care Loading Checker Name Role Phone Provider, Not On File Primary Care Provider Unav ailable Denis Platt MD Primary Care Provider Gideon Campbell MD Primary Care Provider [phone] Encounter Details Date Type Department Care Team (Late st Contact Info) Description 03/24/2022 Transcribe Orders [facility] Preop/Pacu II 1 [place] [id number] Herber Knott MD [address] [place] [address], [address] [place] [address] Pre-op testing (Primary Dx) Social [...] ABO TYPING O 04/04/2022 11:22 AM CDT [facility] RH Positive 04/04/2022 11:22 AM CDT [facility] ABSC Negative 04/04/2022 11:22 AM CDT [facility] Blood Venipuncture / Unknown 04/04/2022 9:50 AM CDT 04/04/2022 10:04 AM CDT Herber Knott MD BLOOD BANK ORDERABLES Edited R esult - Final [facility] [address] [place] [address] * SARS-COV-2 BY MOLECULAR (04/04/2022 9:46 AM CDT) Pathologist [facility] SARSCOV2 NOT DETECTED (Referenc e Range for this test is Not Detected) [facility] ID NOW 04/04/2022 10:33 AM CDT [facility] Comment:This test was perfor med by a MOLECULAR, NON-PCR method Other NASAL STRUCTURE / Unknown Non-Phlebotomy Collection / Unknown 04/04/2022 9:46 AM CDT 04/04/2022 10:04 AM CDT Narrative [facility] - 04/04/2022 10:33 AM CDT This [...] information for Clinicians can be found at: https://www.fda.gov/media/111863/download Additional information for Patients can be found at: https://www.fda.gov/media/721152/download us Herber Knott MD MICROBIOLOGY - GENERAL ORDERAB LES Final Result [facility] [address] [place] [place] [address] documented in this encounter Visit Diagnoses Diagnosis Pre-op testing- Primary Preoperative examination, unspecified documented in this encounter Care Teams Loading Checker Relationship Specialty Start Date End Date Provider, Not On File [place] PCP - General 03/19/22 04/07/22 Denis Platt MD [address] [place] [address] PCP - General Pediatrics 04/08/22 02/15/24 Gideon Campbell MD [address] [place] [address] [place] [address] PCP - General Scooter Mechanic 02/16/24 documented as of this encounter
--- OUTSIDE RECORDS SUMMARY | 2024-10-22 06:26 | XMS_ITS | Encounter Summary ---
Author Organization [employer] Care Team Providers Care Ict Teacher Name Role Phone Provider, Not On File [...] on filedocumented in this encounter Care Teams Ict Teacher Relationship Specialty Start Date End Date Provider, Not On File [place] PCP - General 03/19/22 04/07/22 documented as of this encounter
--- OUTSIDE RECORDS SUMMARY | 2024-10-22 06:26 | XMS_ITS | Encounter Summary ---
Author Organization [facility] Address [address] [place] [address] Phone Care Team Providers Care Beader Name Role Phone Provider, Not On File Primary Care Provider Unav ailable Reason for Referral * Radiology Services (Routine) - Closed Specialty Diagnoses / Procedures Referred By Lyndsey farmer Referred To Contact Radiology Diagnoses Preop examination Procedures EKG 12 LEAD Herber Knott MD Phone: tel: fax: Referral ID Status Reason Start Date Expiration Date Visits Re quested Visits Authorized [id number] Closed 03/19/2022 1 1 * Radiology Services (Routine) - Closed Specialty Diagnoses / Procedures Referred By Lyndsey farmer Referred To Contact Radiology Diagnoses Preop examination Procedures XR CHEST 2 VIEWS Herber Knott MD Phone: tel: fax: Referral ID Status Reason Start Date Expiration Date Visits Re quested Visits Authorized [id number] Closed 03/19/2022 1 1 Encounter Details Date Type Department Care Team (Latest Contact Info) Description 03/19/2022 Transcribe Orders [facility] Patient Access Admitting 1 [place] [address] Herber Knott MD [address] [place] [address], [address] [place] [address] Preop cardiovascular exam (Primary Dx); Preop examination [...] PM T: ??03/20/2022 3:45 PM Report ID: [id number] Reading Location: ??[id number] Procedure Note Baldemar Caro MD - 03/20/2022 [...] Baldemar Caro M.D. MZ: MZ Report ID: [id number] Reading Location: [id number] IMPRESSION: No acute cardiopulmonary findings. Herber Knott MD IMG DIAGNOSTIC ORDERABLES Noris l Result * EKG 12 LEAD (03/19/2022 1:11 PM CDT) Ventricular Rate BPM EXTERNAL EKG Atrial Rate BPM EXTERNAL EKG P-R Interval 140 ms EXTERNAL EKG QRS Duration 132 ms EXTERNAL EKG Q-T Duration 420 ms EXTERNAL EKG QTC CALCULATION 454 ms EXTERNAL EKG P [place] 75 degrees EXTERNAL EKG R [place] -56 degrees EXTERNAL EKG T [place] 53 degrees EXTERNAL EKG 03/19/2022 1:11 PM CDT Impressions EXTERNAL EKG - 03/20/2022 12:47 PM CDT Sinus rhythm Left axis deviation RBBB with left anterior fascicular block Possible anterior infarct - age undetermined Low QRS voltages in precordial leads Comparison Summary: No serial comparison made Summary: Abnormal ECG Confirmed by Giuliano Morrell [id number] on 03/20/2022 12:47:32 PM Narrative Procedure Note Petros Sher MD - 03/20/2022 IMPRESSION: Sinus rhythm Left axis deviation RBBB with left anterior fascicular block Possible anterior infarct - age undetermined Low QRS voltages in precordial leads Comparison Summary: No serial comparison made Summary: Abnormal ECG Confirmed by Giuliano Morrell [id number] on 03/20/2022 12:47:32 PM us Herber Knott MD IMG ECG ORDERABLES Final Resul t Performing Organization Address [facility] Co de Phone Number EXTERNAL EKG * (ABNORMAL) APTT (PTT) (03/19/2022 11:55 AM CDT) PTT 59(H) 24 - 36 sec 03/19/2022 12:38 PM CDT [facility] Blood Venipuncture / Unknown 03/19/2022 11:55 AM CDT 03/19/2022 12:19 PM CDT Narrative [facility] - 03/19/2022 12:38 PM CDT Therapeutic range for unfractionated heparin at 0.3-0.7 U/mL is an aPTT value in the range of 71-100 seconds. Critical value for the PTT test is >= 122 seconds. Herber Knott MD HEMATOLOGY ORDERABLES Final Re sult Performing Organization Address [facility] de Phone Number [facility] [address] [place] [address] * (ABNORMAL) CMP (COMPREHENSIVE METABOLIC PANEL) (03/19/2022 11:55 AM CDT) SODIUM 134(L) 136 - 144 mmol/L 03/19/2022 12:52 PM CDT [facility] POTASSIUM 3.4(L) 3.5 - 5.1 mmol/L 03/19/2022 12:52 PM CDT [facility] CHLORIDE 95(L) 100 - 110 mmol/L 03/19/2022 12:52 PM CDT [facility] CO2, VENOUS 28 22 - 32 mmol/L 03/19/2022 12:52 PM CDT [facility] ANION GAP 14.4 8.0 - 20.0 mmol/L 03/19/2022 12:52 PM CDT [facility] GLUCOSE 112(H) 70 - 99 mg/dL 03/19/2022 12:52 PM CDT [facility] BUN 16 8 - 23 mg/dL 03/19/2022 12:52 PM [facility] CREATININE, BLOOD 0.90 0.60 - 1.10 mg/dL 03/19/2022 12:52 PM [facility] BUN/CREATININE RATIO 18 12 - 20 ratio 03/19/2022 12:52 PM [facility] TOTAL PROTEIN 6.9 6.0 - 8.3 g/dL 03/19/2022 12:52 PM T [facility] ALBUMIN 4.0 3.5 - 5.2 g/dL 03/19/2022 12:52 PM [facility] Comment: The colormetric methods used for the determination of Albumin may lead to falsely elevated test results in patients suffering from renal failure or insufficiency due to interference with other proteins. A/G RATIO 1.4 1.0 - 2.0 03/19/2022 12:52 PM T [facility] CALCIUM 9.1 8.9 - 10.3 mg/dL 03/19/2022 12:52 PM [facility] T BILI 0.4 <=1.2 mg/dL 03/19/2022 12:52 PM [facility] SGOT (AST) 14 <=32 U/L 03/19/2022 12:52 PM [facility] SGPT (ALT) 7 <=41 U/L 03/19/2022 12:52 PM T [facility] ALKALINE PHOSPHATASE 120(H) 35 - 105 U/L 03/19/2022 12:52 PM [facility] GFR, EST. NONAFRICAN 60 >=60 03/19/2022 12:52 PM T [facility] GFR, EST. >60 >=60 022 12:52 PM T [facility] Comment: Creatinine Clearance is the preferred criteria for selecting drug dose adjustments in renally impaired patients. ??The GFR is provided as additional pertinent clinical information. GFR is reported in mL/min/1.73 sq m. IS THE PATIENT REQUIRED TO BE FASTING? No 03/19/2022 12:52 PM CDT [facility] Blood Venipuncture / Unknown 03/19/2022 11:55 AM CDT 03/19/2022 12:19 PM CDT Herber Knott MD CHEMISTRY ORDERABLES Final Res ult Performing Organization Address City/[facility]/ZIP Co de Phone Number [facility] [address] [place] [address] * (ABNORMAL) PROTIME (PT) (PROTHROMBIN TIME) (03/19/2022 11:55 AM CDT) PROTIME-PATIENT 26.7(H) 11.6 - 14.8 sec 03/19/2022 12:38 PM CDT [facility] INR 2.4(H) 0.9 - 1.2 03/19/2022 12:38 PM CDT [facility] Comment: Therapeutic Ranges INR = 2.0-3.0: Venous thromb, atrial fib, pul embolism, tissue heart valve, ami. INR = 2.5-3.5: Mechanical heart valve Critical value for INR is >/= 4.5 Blood Venipuncture / Unknown 03/19/2022 11:55 AM CDT 03/19/2022 12:19 PM CDT Herber Knott MD HEMATOLOGY ORDERABLES Final Re sult Performing Organization Address [facility] Co de Phone Number [facility] [address] [place] [address] * HEMOGLOBIN A1C W/ ESTIMATED GLUCOSE (03/19/2022 11:55 AM CDT) [facility] HGB-A1C 6.0 4.0 - 6.0 % 03/19/2022 1:02 PM CDT [facility] Est Average Glucose 125.5 mg/dL 03/19/2022 1:02 PM CDT [facility] Blood Venipuncture / Unknown 03/19/2022 11:55 AM CDT 03/19/2022 12:19 PM CDT Narrative [facility] - 03/19/2022 1:02 PM CDT HEMOGLOBIN A1C: DIABETIC PATIENTS: WELL-CONTROLLED: ?? 6.2 - 7.0 INTERMEDIATE WELL-CONTROLLED: ??7.0 - 9.0 POORLY-CONTROLLED: ??>9.0 us Herber Knott MD CHEMISTRY ORDERABLES Final Res ult [facility] [address] [place] [address] documented in this encounter Visit Diagnoses Diagnosis Preop cardiovascular exam- Primary Pre-operative cardiovascular examination Preop examination Preoperative examination, unspecified Preop examination Preoperative examination, unspecified Preop cardiovascular exam Pre-operative cardiovascular examination Preop examination Preoperative examination, unspecified Preop cardiovascular exam Pre-operative cardiovascular examination documented in this encounter Care Teams Beader Relationship Specialty Start Date End Date Provider, Not On File [place] PCP - General 03/19/22 04/07/22 documented as of this encounter
--- OUTSIDE RECORDS SUMMARY | 2024-10-22 06:26 | XMS_ITS | Encounter Summary ---
Author Organization [facility] Address [address] [place] [address] Phone Care Team Providers Care Associate Merchandiser Name Role Phone Denis Platt MD Primary Care Provider [phone] Reason for Visit * Auth/Cert Specialty Diagnoses / Procedures Referred By Lyndsey farmer Referred To Contact Referral ID Status Reason Start Date Expiration Date Visits Re quested Visits Authorized [id number] 1 1 Encounter Details Date Type Department Care Team (Late st Contact Info) Description [facility]/10[facility] [address] [place] [address] Cyn Roblero, PT [place] CASE COMMUNICATION Social [...] on filedocumented in this encounter Care Teams Associate Merchandiser Relationship Specialty Start Date End Date Denis Platt MD [address] [id number] PCP - General Pediatrics 04/08/22 02/15/24 documented as of this encounter
--- OUTSIDE RECORDS SUMMARY | 2024-10-22 06:26 | XMS_ITS | Encounter Summary ---
Author Organization [facility] Address [address] [place] [address] Phone Care Team Providers Care Registry Rn Name Role Phone Denis Platt MD Primary Care Provider [phone] Encounter Details Date Type Department Care Team ([facility] Contact Info) Description 04/09/2022 Plan of Care Documentation [facility] [address] [place] [address] Social History Tobacco Use Types Packs/Day Years [...] on filedocumented in this encounter Care Teams Registry Rn Relationship Specialty Start Date End Date Denis Platt MD [address] [place], [place] [id number] PCP - General Pediatrics 04/08/22 02/15/24 documented as of this encounter
--- OUTSIDE RECORDS SUMMARY | 2024-10-22 06:26 | XMS_ITS | Clinical Summary ---
Author Organization [facility] Address [address] [place] [address] Phone Care Team Providers Care Stock Manager Name Role Phone Gideon Campbell MD Primary Care Provider [phone] Allergies No known active allergies Medications warfarin [...] this topic Medical Devices Implanted Type Area Reservations Manager Device Identifier Shelf Expiration Date Model / Serial / Lot Shell Actb 54mm Hip Sector Gription [employer] - [id number] Implanted:Qty: 1 on 04/07/2022 by Herber Knott MD at [facility] IMPLANT Left: Hip [employer] 02/08/2032 [id number] / [id number] / [id number] Liner Actb Altrx [place] Neutral 54mm 36mm Hip - [id number] Implanted:Qty: 1 on 04/07/2022 by Herber Knott MD at [facility] IMPLANT Left: Hip [employer] 08/10/2026 [id number] / [id number] / [id number] Screw Bone 6.5mm 35mm [place] Dome 4 Point Cut Flute Hip Actb Canc Slftp Hex Head Blunt Tip - [id number] Implanted:Qty: 1 on 04/07/2022 by Herber Knott MD at [facility] IMPLANT Left: Hip [employer] 09/09/2031 [id number] / [id number] / [id number] Head Fem 1.5mm /14 Taper 36mm Hip Cementless Biolox Delta Articul/Warren - [id number] Implanted:Qty: 1 on 04/07/2022 by Herber Knott MD at [facility] IMPLANT Left: Hip [employer] 02/07/2027 [id number] / [id number] / [id number] Depuy Femoral Stem / Taper Actis Duofix Hip Prothesis Cementless, High Vollar Implanted:Qty: 1 on 04/07/2022 by Herber Knott MD at [facility] Left: Hip [employer] 12/09/2031 / / [id number] Insurance [facility] on file Advance Directives * Full Code (Latest Code Status on File) Date Activated Date Inactivated Comments 04/17/2022 9:30 AM Care Teams Stock Manager Relationship Specialty Start Date End Date Gideon Campbell MD [address] [place] [address] [place] [address] PCP - General Hop Worker 02/16/24
--- OUTSIDE RECORDS SUMMARY | 2024-10-22 06:26 | XMS_ITS | Encounter Summary ---
Author Organization [facility] Address [address] [place] [address] Phone Care Team Providers Care Melter Helper Name Role Phone Denis Platt MD Primary Care Provider [phone] Reason for Visit * Auth/Cert Specialty Diagnoses / Procedures Referred By Lyndsey farmer Referred To Contact Referral ID Status Reason Start Date Expiration Date Visits Re quested Visits Authorized [id number] 1 1 Encounter Details Date Type Department Care Team (Late st Contact Info) Description 04/10/2022 [facility] [address] [place] [address] Cyn Roblero, PT [place] TELEPHONE ENCOUNTER Social [...] on filedocumented in this encounter Care Teams Melter Helper Relationship Specialty Start Date End Date Denis Platt MD [address] [id number] PCP - General Pediatrics 04/08/22 02/15/24 documented as of this encounter
--- OUTSIDE RECORDS SUMMARY | 2024-10-22 06:26 | XMS_ITS | Encounter Summary ---
Author Organization [facility] Address [address] [place] [address] Phone Care Team Providers Care Nascar Racer Name Role Phone Denis Platt MD Primary Care Provider [phone] Reason for Visit * Auth/Cert Specialty Diagnoses / Procedures Referred By Lyndsey farmer Referred To Contact Referral ID Status Reason Start Date Expiration Date Visits Re quested Visits Authorized [id number] 1 1 Encounter Details Date Type Department Care Team (Latest Contact Info) Description 04/09/2022 2:00 PM CDT Home Care Visit [facility] [address] [place] [address] Cyn Roblero, PT [place] PT - [facility] [...] goals the following were identified: Patient centered technician terminal and repeater goal: go back to work. Target Date: [...] next 2 weeks. She works for a [employer], sedentary work. At PT eval patient answers [...] not ordered, patient declined need for [facility] Director to provide: not ordered Past Medical History: [...] ongoing documented in this encounter Care Teams Nascar Racer Relationship Specialty Start Date End Date Denis Platt MD [address] [place] [address] PCP - General Pediatrics 04/08/22 02/15/24 documented as of this encounter
--- OUTSIDE RECORDS SUMMARY | 2024-10-22 06:28 | XMS_ITS | Encounter Summary ---
Author Organization 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 Gender Identity Female 10/06/2021 4:28 PM INSTALLATION & MAINTENANCE EXECUTIVE Sexual Orientation Choose not to disclose 2020 4:28 PM INSTALLATION & MAINTENANCE EXECUTIVE documented as of this encounter Plan of Treatment Not on file documented as of this encounter Procedures Procedure Name Priority Date/Time Associated Diagnosis Comments EGFR Routine 01/31/2024 9:20 AM CDT 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, unspecified iron deficiency anemia type group home (current) use of anticoagulants DIFFERENTIAL AUTO Routine 01/31/2024 9:2 0 AM CDT 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, unspecified iron deficiency anemia type CBC WITH AUTO DIFFERENTIAL Routine 01/31/2024 9:20 AM CDT 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, unspecified iron deficiency anemia type COMPREHENSIVE METABOLIC PANEL Routine 01/31/2024 9:20 AM CDT 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, unspecified iron deficiency anemia type group home (current) use of anticoagulants documented in this [...] was last reviewed 2021. Testing performed by: [place], [address] Blood 01/31/2024 9:20 AM CDT 01/31/2024 9:38 AM CDT us Luis F Lofton MD LAB BLOOD ORDERABLES Final Re sult [facility] ([place] 1 [facility] [place] [address] * (ABNORMAL) Differential, auto (01/31/2024 9:20 AM CDT) Neutrophil abs 4.4 1.5 - 6.5 K/cumm Comment:Testing performed by : [place], [address] Imm gran abs 0.0 0.0 - 0.1 K/cumm [facility] ([place]) Comment:Testing performed by : [place], [address] Lymphocyte abs 0.5(L) 0.8 - 3.3 K/cumm [facility] ([place]) Comment:Testing performed by : [facility], [place], [address] Monocyte abs 0.5 0.2 - 0.8 K/cumm [facility] ([place]) Comment:Testing performed by : [facility], [place], [address] Eosinophil abs 0.0 0.0 - 0.5 K/cumm [facility] ([place]) Comment:Testing performed by : [place], [address] Basophil abs 0.0 0.0 - 0.1 K/cumm [facility] ([place]) Comment:Testing performed by : [facility], [place], [address] Neutrophil pct 79.3 % [facility] ([place]) Comment: Interpretive Data Percent cell count reference ranges are not reported, since discordance with absolute values may lead to misinterpretation of CBC data. Current Interpretive Data was last revised on 2018. Testing performed by: [place], [address] Imm gran pct 0.4 % [facility] ([place]) Comment: Interpretive Data Percent cell count reference ranges are not reported, since discordance with absolute values may lead to misinterpretation of CBC data. Current Interpretive Data was last revised on 2018. Testing performed by: [place], [address] Lymphocyte pct 9.7 % [facility] ([place]) Comment: Interpretive Data Percent cell count reference ranges are not reported, since discordance with absolute values may lead to misinterpretation of CBC data. Current Interpretive Data was last revised on 2018. Testing performed by: [place], [address] Monocyte pct 9.6 % [facility] ([place]) Comment: Interpretive Data Percent cell count reference ranges are not reported, since discordance with absolute values may lead to misinterpretation of CBC data. Current Interpretive Data was last revised on 2018. Testing performed by: [place], [address] Eosinophil pct 0.5 % [facility] ([place]) Comment: Interpretive Data Percent cell count reference ranges are not reported, since discordance with absolute values may lead to misinterpretation of CBC data. Current Interpretive Data was last revised on 2018. Testing performed by: [place], [address] Basophil pct 0.5 % [facility] ([place]) Comment: Interpretive Data Percent cell count reference ranges are not reported, since discordance with absolute values may lead to misinterpretation of CBC data. Current Interpretive Data was last revised on 2018. Testing performed by: [place], [address] Blood 01/31/2024 9:20 AM CDT 01/31/2024 9:41 AM CDT us Mia Barger CAKE WASHER LAB BLOOD ORDERABLES Final Result [facility] ([place]) 1 [facility] Department [place] [address] * (ABNORMAL) Comprehensive metabolic panel (01/31/2024 9:20 AM CDT) Sodium 138 135 - 145 mmol/L Comment:Testing performed by : [facility], [facility], [place], [address] Potassium, pl 4.1 3.3 - 4.9 mmol/L [facility] ([place]) Comment:Testing performed by : [facility], [facility], [place], [address] Chloride 101 97 - 110 mmol/L [facility] ([place]) Comment:Testing performed by : [facility], [facility], [place], [address] CO2 27 22 - 32 mmol/L [facility] ([place]) Comment:Testing performed by : [facility], [place], [address] Anion gap 10 2 - 15 mmol/L [facility] ([place]) Comment:Testing performed by : [facility], [facility], [place], [address] BUN 9 6 - 25 mg/dL [facility] ([place]) Comment:Testing performed by : [facility], [place], [address] Creatinine 0.72 0.60 - 1.10 mg/dL [facility] ([place]) Comment:Testing performed by : [facility], [place], [address] Glucose 108 70 - 199 mg/dL [facility] ([place]) Comment: Interpretive Data Fasting glucose >/= 126 [...] was last revised 2022. Testing performed by: [facility], [facility], [place], [address] Calcium 8.9 8.5 - 10.3 mg/dL [facility] ([place]) Comment:Testing performed by : [facility], [facility], [place], [address] Bilirubin, total 0.4 0.1 - 1.2 mg/dL [facility] ([place]) Comment:Testing performed by : [facility], [facility], [place], [address] Protein, pl 5.9(L) 6.5 - 8.5 g/dL [facility] ([place]) Comment:Testing performed by : [facility], [facility], [place], [address] Albumin 2.9(L) 3.5 - 5.0 g/dL [facility] ([place]) Comment:Testing performed by : [facility], [facility], [place], [address] Alk phos 127 40 - 130 Units/L [facility] ([place]) Comment:Testing performed by : [facility], [facility], [place], [address] ALT 5(L) 7 - 45 Units/L [facility] ([place]) Comment:Testing performed by : [facility], [facility], [place], [address] AST 7(L) 10 - 45 Units/L [facility] ([place]) Comment:Testing performed by : [facility], [place], [address] Blood 01/31/2024 9:20 AM CDT 01/31/2024 9:38 AM CDT Narrative [facility] ([place] - 01/31/2024 10:05 AM CDT Digistrive us Luis F Lofton MD LAB BLOOD ORDERABLES Final Re sult [facility] ([place] 1 [facility] Department [place] [address] * (ABNORMAL) CBC with auto differential (01/31/2024 9:20 AM CDT) WBC 5.2 3.8 - 9.9 K/cumm Comment:Testing performed by : [facility] [place], [address], Medical Office [address], [place] [address] Hgb 7.5(L) 11.9 - 15.5 g/dL [facility] ([place]) Comment:Testing performed by : [facility] [address], Medical Office [facility] [address], [place] [address] Hct 26.2(L) 35.6 - 45.5 % [facility] ([place]) Comment:Testing performed by : [facility] Infusion [facility] [address], Medical Office [facility] [address], [place] [address] Plt 468(H) 150 - 400 K/cumm [facility] ([place]) Comment:Testing performed by : [facility] Infusion [facility] [address], Medical Office [facility] [address], [place] [address] MPV 8.7(L) 9.1 - 12.3 fL [facility] ([place]) Comment:Testing performed by : [facility] [address], Medical Office [facility] [address], [place] [address] RBC 3.64(L) 3.90 - 5.20 M/cumm [facility] ([place]) Comment:Testing performed by : [facility] [address], Medical Office [facility] [address], [place] [address] MCV 72.0(L) 81.3 - 96.4 fL [facility] ([place]) Comment:Testing performed by : [facility] [address], Medical Office [facility] [address], [place] [address] MCH 20.6(L) 27.1 - 33.3 pg [facility] ([place]) Comment:Testing performed by : [facility] [address], Medical Office [facility] [address], [place] [address] MCHC 28.6(L) 32.3 - 35.7 g/dL [facility] ([place]) Comment:Testing performed by : [facility] [address], Medical Office [facility] [address], [place] [address] RDW CV 21.4(H) 11.1 - 14.9 % [facility] ([place]) Comment:Testing performed by : [facility]fusion [facility] [address], Medical Office [facility] [address], [place] [address] RDW SD 56.4(H) 35.7 - 48.1 fL [facility] ([place]) Comment:Testing performed by : [facility] [place], 4 [facility] , Medical Office [facility] [address], [place] [address] NRBC abs Not Measured 0.00 - 0.01 K/cumm [facility] ([place]) Comment:Testing performed by : [facility] [place], 4 [facility] , Medical Office [facility] [address], [place] [address] Blood 01/31/2024 9:20 AM CDT 01/31/2024 9:41 AM CDT Mia Barger CAKE WASHER LAB BLOOD ORDERABLES Final Result [facility] ([place]) 1 [facility] Department [place] [address] documented in this encounter Visit Diagnoses Diagnosis 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, unspecified iron deficiency anemia type 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
--- OUTSIDE RECORDS SUMMARY | 2024-10-22 06:28 | XMS_ITS | Clinical Summary ---
Author Organization [facility] Address [address] [place] [address] Care Team Providers Care Vest Busheler Name Role Phone Gideon Campbell MD Primary Care Provider [phone] Allergies No known active allergies Medications ascorbic [...] 06/15/2023 Assessment & Plan (10/18/2023 2:47 PM CHAUFFEUR): Worsening sx at this time Weight loss 01/27/2023 Assessment & Plan (10/18/2023 2:38 PM CHAUFFEUR): Wt Readings from Last 3 Encounters: 10/18/23 [...] is recommended that he remain anticoagulated for thromboprophylaxis.[id number]=6. Left carotid bruit 10/13/2017 Ventricular ectopy 05/17/2017 [...] 04/07/2017 Assessment & Plan (10/18/2023 2:39 PM CHAUFFEUR): BP Readings from Last 3 Encounters: 10/18/23 [...] EKG. Assessment & Plan (08/19/2017 10:05 AM CHAUFFEUR): Post repeat ablation of her highly symptomatic [...] bleeding Assessment & Plan (08/19/2017 10:05 AM CHAUFFEUR): She remains anticoagulated on Coumadin. She has a ACM7PQ-TETd score of 4, therefore it is recommended that she remain anticoagulated for thromboprophylaxis. 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 Family History Medical [...] on file Legal Sex Female 8:30 AM CHAUFFEUR Gender Identity Female 10/06/2021 4:28 PM CHAUFFEUR Sexual Orientation Choose not to disclose 2020 4:28 PM CHAUFFEUR Obstetrics History Last Filed Vital Signs Vital [...] Body Mass Index 21.52 12/13/2023 10:47 AM CHAUFFEUR Plan of Treatment Health Maintenance Due Date [...] 10/18/2023, 07/29/2023, 07/08/2023 Insurance MEDICARE [facility] MEDICARE SOLUTIONS MEDICARE SOLUTIONS Care Teams Vest Busheler Relationship Specialty Start Date End Date Gideon Campbell MD [address] [facility] [place] [address] PCP - General Family Medicine 07/19/23
--- OUTSIDE RECORDS SUMMARY | 2024-10-22 06:28 | XMS_ITS | Encounter Summary ---
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
--- OUTSIDE RECORDS SUMMARY | 2024-10-22 06:28 | XMS_ITS | Encounter Summary ---
Author Organization [facility] Healthcare Address [address] [place] [address] Care Team Providers Care Sr. Logistics Analyst Name Role Phone Gideon Campbell MD Primary Care Provider [phone] Reason for Referral * Consultation (Routine) - Authorized Specialty Diagnoses / Procedures Referred By Contac t Referred To Contact Pain Management Diagnoses Chronic joint pain Chronic back pain, unspecified back location, unspecified back pain laterality Gideon Campbell MD [address] [place] [address] [address] [place] [address] Phone: tel: fax: Wendi Washington MD Phone: tel: fax: Referral ID Status Reason Start Date Expiration Date Visits Requested Visits Authorized [id number] Authorized Specialty Services Required 02/15/2024 03/16/2025 1 1 Question Answer Please select the performing region: [facility] [144] To provider: WENDI WASHINGTON [[id number]] # of visits: 1 Comments Or other Provider * Consultation (Routine) - Closed Specialty Diagnoses / Procedures Referred By Contac t Referred To Contact Gastroenterology Diagnoses Other iron deficiency anemia Gideon Campbell MD 2 [facility] [address] [place] [address] Phone: tel: fax: Maynor Reyna MD 2 [facility] [address] [place] [address] Phone: tel: fax: Referral ID Status Reason Start Date Expiration Date V isits Requested Visits Authorized [id number] Closed Specialty Services Required 02/15/2024 03/16/2025 1 1 Question Answer Please select the performing region: External Order [171] To provider: MAYNOR REYNA [[id number]] # of visits: 1 Comments [facility] [address]Khalid Reyna (P) [phone] (F) [phone] Encounter Details Date Type Department Care Team (Late st Contact Info) Description 02/15/2024 Orders Only [facility] Medical Group Primary Care at [place] 2 [facility] [address] [place] [address] Gideon Campbell MD [address] [place] [address] [address] [place] [address] Other iron deficiency anemia; Chronic joint pain; [...] on file Legal Sex Female 8:30 AM AUTOMATIC 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 Logistics Analyst Relationship Specialty Start Date End Date Gideon Campbell MD [address] [facility] [address] [place] [address] PCP - General Family Medicine 07/19/23 documented as of this encounter
--- OUTSIDE RECORDS SUMMARY | 2024-10-22 06:28 | XMS_ITS | Encounter Summary ---
Author Organization [facility] Healthcare Address [address] [place] [address] Care Team Providers Care Electron Tube Assembler Name Role Phone Gideon Campbell MD Primary Care Provider [phone] Reason for Visit * Reason Comments OP Infusion * Episode Based Medications (Routine) - Closed Specialty Diagnoses / Procedures Referred By Contac t Referred To Contact Diagnoses 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 secondary to inadequate dietary iron intake Anemia, unspecified type Microcytic anemia Luis F Lofton MD [address] [place] [address] Phone: tel: fax: [address] [address] Phone: tel: Referral ID Status Reason Start Date Expiration Date Visits Re quested Visits Authorized [id number] Closed 12/23/2023 12/22/2024 3 3 Encounter Details Date Type Department Care Team (Late st Contact Info) Description 01/11/2024 9:00 AM CDT Infusion [address] [place] [id number] 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 secondary to inadequate dietary [...] on file Legal Sex Female 8:30 AM 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
--- OUTSIDE RECORDS SUMMARY | 2024-10-22 06:28 | XMS_ITS | Referral Summary ---
Author Organization [facility] Address [address] [place] [address] Care Team Providers Care Station Engineer Chief Name Role Phone Gideon Campbell MD Primary Care Provider [phone] Allergies No known active allergies Medications ascorbic [...] 06/15/2023 Assessment & Plan (10/18/2023 2:47 PM AUTOMOTIVE FLEET SUPERVISOR): Worsening sx at this time Weight loss 01/27/2023 Assessment & Plan (10/18/2023 2:38 PM AUTOMOTIVE FLEET SUPERVISOR): Wt Readings from Last 3 Encounters: 10/18/23 [...] is recommended that he remain anticoagulated for thromboprophylaxis.[id number]=0. Left carotid bruit 10/13/2017 Ventricular ectopy 05/17/2017 [...] 04/07/2017 Assessment & Plan (10/18/2023 2:39 PM AUTOMOTIVE FLEET SUPERVISOR): BP Readings from Last 3 Encounters: 10/18/23 [...] EKG. Assessment & Plan (08/19/2017 10:05 AM AUTOMOTIVE FLEET SUPERVISOR): Post repeat ablation of her highly symptomatic [...] an office visit and 12 lead EKG. correction current use of anticoagulant therapy 0 03/29/2017 [...] bleeding Assessment & Plan (08/19/2017 10:05 AM AUTOMOTIVE FLEET SUPERVISOR): She remains anticoagulated on Coumadin. She has a FMD8FK-BUTj score of 4, therefore it is recommended that she remain anticoagulated for thromboprophylaxis. Assessment & Plan (05/17/2017 2:10 PM CDT): She remains anticoagulated with Coumadin.She has a UCC6SM8-ASLb score of 4(annualized stroke risk of 4%), [...] file Legal Sex Female 8:30 AM AUTOMOTIVE FLEET SUPERVISOR Gender Identity Female 10/06/2021 4:28 PM AUTOMOTIVE FLEET SUPERVISOR Sexual Orientation Choose not to disclose 2020 4:28 PM AUTOMOTIVE FLEET SUPERVISOR Last Filed Vital Signs Vital Sign Reading [...] Body Mass Index 21.52 12/13/2023 10:47 AM AUTOMOTIVE FLEET SUPERVISOR Plan of Treatment Not on file Insurance MEDICARE [facility] MEDICARE SOLUTIONS MEDICARE SOLUTIONS Care Teams Station Engineer Chief Relationship Specialty Start Date End Date Gideon Campbell MD [address] [facility] [address] [place] [address] PCP - General Family Medicine 07/19/23
--- OUTSIDE RECORDS SUMMARY | 2024-10-22 06:28 | XMS_ITS | Encounter Summary ---
Author Organization [facility] Healthcare Address [address] [place] [address] Care Team Providers Care Bindery Leadperson Name Role Phone Gideon Campbell MD Primary Care Provider [phone] Reason for Visit * Reason Onset Date Comments Medical Question/Miscellaneous 02/07/2024 Encounter Details Date Type Department Care Team (Late st Contact Info) Description 02/07/2024 Telephone [facility] Medical Group Primary Care at [address] [address] Gideon Campbell MD [address] [place] [address] [address] [place] [address] Medical Question/Miscellaneous Social History Tobacco [...] on file 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 We [...] patients daughter Nel Evans is, Ph. # [phone]. Please all her back with the advise on all of this. Does message need to be routed? Yes-Action Needed documented in this encounter Plan of Treatment Not on file documented as of this encounter Visit Diagnoses Not on filedocumented in this encounter Care Teams Bindery Leadperson Relationship Specialty Start Date End Date Gideon Campbell MD [address] [facility] [address] [place] [address] PCP - General Family Medicine 07/19/23 documented as of this encounter
--- OUTSIDE RECORDS SUMMARY | 2024-10-22 06:28 | XMS_ITS | Encounter Summary ---
Author Organization [facility] Address [address] [place] [address] Phone Care Team Providers Care Hand Sole Sewer Name Role Phone Gideon Campbell MD Primary Care Provider [phone] Reason for Visit * Reason Comments Follow-up Anemia Encounter Details Date Type Department Care Team (Late st Contact Info) Description 01/31/2024 9:45 AM CDT Office Visit [facility] [address] [place] [address] Medical [facility] Delio Erickson [address] [place] [address] Luis F Lofton MD [address] [place] [address] [place] [address] 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, unspecified iron deficiency anemia [...] file Legal Sex Female 8:30 AM CALL TAKER Gender Identity Female 10/06/2021 4:28 PM CALL TAKER Sexual Orientation Choose not to disclose 2020 4:28 PM CALL TAKER documented as of this encounter Last Filed [...] Body Mass Index 21.52 12/13/2023 10:47 AM CALL TAKER documented in this encounter Progress Notes * [...] at this time Luis F Lofton MD Registered Occupational Therapist Internal Medicine-Medical Oncology [facility] in [place] - Physicians in [address]; [address] [address] Office: (after hours this rolls over to [facility] Oncologist on-call) Linoleum Layer completed using M*Modal fluency direct speaking software, therefore, tax accounting assistant variances may occur. documented in this encounter [...] 01/31/2024 documented in this encounter Care Teams Hand Sole Sewer Relationship Specialty Start Date End Date Gideon Campbell MD [address] [facility] [address] [place] [address] PCP - General Family Medicine 07/19/23 documented as of this encounter
--- OUTSIDE RECORDS SUMMARY | 2024-10-22 06:28 | XMS_ITS | Encounter Summary ---
Author Organization [facility] Address [address] [place] [address] Phone Care Team Providers Care Radio Artist Name Role Phone Gideon Campbell MD Primary Care Provider [phone] Encounter Details Date Type Department Care Team (Late st Contact Info) Description 02/22/2024 Telephone [facility] Oncology [address] [place] [phone] Yamileth Santiago, JACOB Social History Tobacco [...] file Legal Sex Female 8:30 AM IT INFRASTRUCTURE SPECIALIST Gender Identity Female 10/06/2021 4:28 PM IT INFRASTRUCTURE SPECIALIST Sexual Orientation Choose not to disclose 2020 4:28 PM IT INFRASTRUCTURE SPECIALIST documented as of this encounter Miscellaneous Notes * Telephone Encounter - Yamileth Santiago CLT - 02/22/2024 1:44 PM CDT PATIENT CALLED IN TO CANCEL APPT., DOES NOT WANT TO RESCHEDULE AT THIS TIME documented in this encounter Plan of Treatment Not on file documented as of this encounter Visit Diagnoses Not on filedocumented in this encounter Care Teams Radio Artist Relationship Specialty Start Date End Date Gideon Campbell MD [address] [facility] [address] [place] [address] PCP - General Family Medicine 07/19/23 documented as of this encounter
--- OUTSIDE RECORDS SUMMARY | 2024-10-22 06:28 | XMS_ITS | Continuity of Care Document ---
Author Organization [facility] Address [address] [place] [address] Phone Care Team Providers Care Boiler Engineer Name Role Phone Zimmer OD, Heber Unavailable [...] Diagnoses Date Provider Providers Copied on Encounter [facility], [address], [place], [place], [address], [place] tel:[phone] [facility] No Information [phone] 0 Zimmer OD Heber. [address] , [address], [place], [address], [place]. tel:[phone] [facility], [address] [place] [address] [address], [place], [place], [id number], tel:[phone] [facility] No Information 0 [phone] Zimmer OD Heber. [address] , [address], [place], [place], [facility], [place]. tel:[phone] [facility], [address] [place] [address] [address], [place], [place], [id number], [place] tel:[phone] [facility] No Information 0 [phone] Doisy Edward. [address] , [address], [place], [place], [facility], [place]. tel:[phone] Referring Provider: Heber Zimmer OD A, [facility] [address], [place], [place], [facility]. tel:[phone] Office/outpat ient Visit, [facility] [address] [place] [address] [address], [place], [place], [id number], tel:[phone] [facility] No Information 201 0 Doisy Edward. [address], [place], [place], [facility], [place]. tel:[phone] Referring Provider: Heber Zimmer OD A, [facility] [address], [place], [facility]. tel:[phone] [facility], [address] [place] [address] [address], [place], [place], [id number], [place] tel:[phone] [facility] No Information 3-200 9 Zimmer OD Heber. [address] , [address], [place], [facility], [place]. tel:[phone] [facility], [address] [place] [address] [address], [place], [place], [id number], [place] tel:[phone] [facility] No Information [phone] Doisy Edward. [address] , [address], [place], [facility], . tel:[phone] [facility], [address] [place] [address] [address], [place], [place], [id number], tel:[phone] [facility] No Information 8[address] Sathya Nain. [address], [address], [place], [facility], . tel:[phone] Referring Provider: Heber Plunkett, [address], [place], [facility]. tel:[phone] Office/outpat ient Visit, [facility] [address] [place] [address] [address], [place], [place], [id number], tel:[phone] [facility] No Information 200 9 [facility] Nain. [facility] [address], [address], [place], [facility], . tel:[phone] Referring Provider: Heber Plunkett, [address], [place], [facility]. tel:[phone] [facility], [address] [place] [address] [address], [place], [place], [address], tel:[phone] [facility] No Information 5200 9 Zimmer OD Heber. [facility] [address], [address], [place], [facility], [place]. tel:[phone] Family History Family Member Type Diagnosis Age [...]
--- OUTSIDE RECORDS SUMMARY | 2024-10-22 06:29 | XMS_ITS | Encounter Summary ---
Author Organization [facility] Address [address] [place] [address] Care Team Providers Care Range Examiner Name Role Phone Denis Platt MD Primary Care Provide r Reason for Visit * Reason Onset Date Comments Surgery Date 04/16/2023 Encounter Details Date Type Department Care Team (Late st Contact Info) Description 04/16/2023 Telephone [facility] Orthopedics and Sports Medicine [address] [facility] [address] [place] [phone] Herber Knott MD [address] [place] [address] [address] [place], [place] [id number] Surgery Date Social History Tobacco Use Types Packs/Day Years Used Date Smoking Tobacco: Former Cigarettes Q uit: 09/28/1978 Smokeless Tobacco: Never Alcohol Use Standard Drinks/Week Comments Yes 0 (1 standard drink = 0.6 oz pur e alcohol) Comments Unknown Sex and Gender Information Value Date Recorded Sex Assigned at Not on file Legal Sex Female 8:30 AM GROUP COUNSELOR Gender Identity Female 10/06/2021 4:28 PM GROUP COUNSELOR Sexual Orientation Choose not to disclose 2020 4:28 PM GROUP COUNSELOR documented as of this encounter Miscellaneous [...] Amie's call, stated to call back @ [phone]---tried calling that #,, it is not accepting calls at this time. Left voicemail on [phone] to let us know which day she [...] on filedocumented in this encounter Care Teams Range Examiner Relationship Specialty Start Date End Date Denis Platt MD [address] [place] [address] PCP - General Family Medicine 01/14/22 07/18/23 documented as of this encounter
--- OUTSIDE RECORDS SUMMARY | 2024-10-22 06:29 | XMS_ITS | Encounter Summary ---
Author Organization [facility] Address [address] [place] [address] Care Team Providers Care Farm Management Teacher Name Role Phone Gideon Campbell MD Primary Care Provider [phone] Reason for Visit * Reason Comments OP Infusion * Episode Based Medications (Routine) - Closed Specialty Diagnoses / Procedures Referred By Contac t Referred To Contact Diagnoses 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 secondary to inadequate dietary iron intake Anemia, unspecified type Microcytic anemia Luis F Lofton MD [address] [place] [address] Phone: tel: fax: [address] [place] [phone] Phone: tel: Referral ID Status Reason Start Date Expiration Date Visits Re quested Visits Authorized [id number] Closed 12/23/2023 12/22/2024 3 3 Encounter Details Date Type Department Care Team (Late st Contact Info) Description 12/28/2023 9:00 AM CDT Infusion [address] [place] [phone] 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 secondary to inadequate dietary [...] Legal Sex Female 8:30 AM HUMAN RESOURCES TALENT MANAGER Gender Identity Female 10/06/2021 4:28 PM HUMAN RESOURCES TALENT MANAGER Sexual Orientation Choose not to disclose 2020 4:28 PM HUMAN RESOURCES TALENT MANAGER documented as of this encounter Last [...] 12/28/2023 documented in this encounter Care Teams Farm Management Teacher Relationship Specialty Start Date End Date Gideon Campbell MD [address] [place] [address] [address] [place] [address] PCP - General Family Medicine 07/19/23 documented as of this encounter
--- OUTSIDE RECORDS SUMMARY | 2024-10-22 06:29 | XMS_ITS | Encounter Summary ---
Author Organization [facility] Address [address] [place] [address] Phone Care Team Providers Care Environmental Health And Safety Leader Name Role Phone Gideon Campbell MD Primary Care Provider [phone] Encounter Details Date Type Department Care Team (Late st Contact Info) Description 08/02/2023 Telephone [facility] Oncology [address] [place] [phone] Yamileth Santiago, JACOB Social History Tobacco [...] on file Legal Sex Female 8:30 AM AGITATOR OPERATOR Gender Identity Female 10/06/2021 4:28 PM AGITATOR OPERATOR Sexual Orientation Choose not to disclose 2020 4:28 PM AGITATOR OPERATOR documented as of this encounter Miscellaneous Notes * Telephone Encounter - Yamileth Santiago CLT - 08/02/2023 8:42 AM CDT LMOM TO SCHEDULE APPT documented in this encounter Plan of Treatment Not on file documented as of this encounter Visit Diagnoses Not on filedocumented in this encounter Care Teams Environmental Health And Safety Leader Relationship Specialty Start Date End Date Gideon Campbell MD 2 [facility] [address] [address] PCP - General Family Medicine 07/19/23 documented as of this encounter
--- OUTSIDE RECORDS SUMMARY | 2024-10-22 06:29 | XMS_ITS | Encounter Summary ---
Author Organization [facility] Address [address] [place] [address] Phone Care Team Providers Care Beam Worker Name Role Phone Gideon Campbell MD Primary Care Provider [phone] Encounter Details Date Type Department Care Team (Late st Contact Info) Description 12/23/2023 Orders Only [facility] Oncology [address] [place] [phone] Karen Giles RN 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, [...] on file Legal Sex Female 8:30 AM VET ASSISTANT Gender Identity Female 10/06/2021 4:28 PM VET ASSISTANT Sexual Orientation Choose not to disclose 2020 4:28 PM VET ASSISTANT documented as of this encounter Plan of Treatment Not on file documented as of this encounter Visit Diagnoses Diagnosis 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, unspecified iron deficiency anemia type- Primary documented in this encounter Orders Appointment Requests Count Last Ordered Date Fi rst Ordered Date ONCBCN INFUSION APPT REQUEST 3 01/11/2024 12/28/2023 documented in this encounter Care Teams Beam Worker Relationship Specialty Start Date End Date Gideon Campbell MD [address] [facility] [address] [place] [address] PCP - General Family Medicine 07/19/23 documented as of this encounter
--- OUTSIDE RECORDS SUMMARY | 2024-10-22 06:29 | XMS_ITS | Encounter Summary ---
Author Organization [facility] Address [address] [place] [address] Care Team Providers Care Stage Electrician Helper Name Role Phone Denis Platt MD Primary Care Provide r Encounter Details Date Type Department Care Team (Late st Contact Info) Description 06/16/2023 9:25 AM CDT [address] [address] Pre-operative exam Social History Tobacco Use Types Packs/Day Years Used Date Smoking Tobacco: Former Cigarettes Q uit: 09/28/1978 Smokeless Tobacco: Never Alcohol Use Standard Drinks/Week Comments Yes 0 (1 standard drink = 0.6 oz pur e alcohol) Comments Unknown Sex and Gender Information Value Date Recorded Sex Assigned at Not on file Legal Sex Female 8:30 AM NUCLEAR POWERPLANT SUPERVISOR Gender Identity Female 10/06/2021 4:28 PM NUCLEAR POWERPLANT SUPERVISOR Sexual Orientation Choose not to disclose 2020 4:28 PM NUCLEAR POWERPLANT SUPERVISOR documented as of this encounter Plan [...] eGFR 77 mL/min/1. 73 m2 [facility] (SHERIDAN) Comment: Interpretive Data Reference Interval Normal ?>/= [...] BLOOD ORDERABLES Fin al Result [facility] ([place]) 1 [facility] [place] [address] * (ABNORMAL) Differential, auto (06/16/2023 10:05 AM [...] Fin al Result [facility] ([place]) 1 [facility] [employer] [place] [address] * (ABNORMAL) CBC with auto differential (06/16/2023 [...] Fin al Result [facility] ([place]) [address] [facility] [place] [address] * (ABNORMAL) Comprehensive metabolic panel (06/16/2023 10:05 [...] ORDERABLES Fin al Result Performing Organization Address [facility] Co de Phone Number [facility] ([place]) [address] [facility] [place] [address] * Hemoglobin A1c (06/16/2023 10:05 AM CDT) Hgb A1C 5.2 4.0 - 5.6 % [facility] ([place]) Estimated Average Glucose 103 mg/dL [facility] ([place]) Comment: The ADA recommends reporting an estimated Average Glucose (eAG) with all Hemoglobin A1c results using the equation derived from a study of 507 normal and diabetic adults. ??Minority populations were underrepresented and children were not included. ?? (Diabetes Care 31:9351-2260, 2008). ??The eAG is not equivalent to a fasting glucose. Blood 06/16/2023 10:0 5 AM CDT 06/16/2023 11:05 AM CDT Herber Knott MD LAB BLOOD ORDERABLES Fin al Result Performing Organization Address [facility] de Phone Number [facility] ([place]) 1 [facility] [place] [address] documented in this encounter Visit Diagnoses Diagnosis Pre-operative exam Unspecified pre-operative examination documented in this encounter Care Teams Stage Electrician Helper Relationship Specialty Start Date End Date Denis Platt MD [address] [place] [address] PCP - General Family Medicine 01/14/22 07/18/23 documented as of this encounter
--- OUTSIDE RECORDS SUMMARY | 2024-10-22 06:29 | XMS_ITS | Encounter Summary ---
Author Organization [facility] Address [address] [place] [address] Care Team Providers Care Driver Operator Name Role Phone Denis Platt MD Primary Care Provide r Encounter Details Date Type Department Care Team (Late st Contact Info) Description 04/22/2023 Documentation [facility] Orthopedics and Sports Medicine [address] [facility] [address] [place] [phone] Amie Lion MA Social History Tobacco Use Types Packs/Day Years Used Date Smoking Tobacco: Former Cigarettes Q uit: 09/28/1978 Smokeless Tobacco: Never Alcohol Use Standard Drinks/Week Comments Yes 0 (1 standard drink = 0.6 oz pur e alcohol) Comments Unknown Sex and Gender Information Value Date Recorded Sex Assigned at Not on file Legal Sex Female 8:30 AM SENIOR BUSINESS OBJECTS DEVELOPER Gender Identity Female 10/06/2021 4:28 PM SENIOR BUSINESS OBJECTS DEVELOPER Sexual Orientation Choose not to disclose 2020 4:28 PM SENIOR BUSINESS OBJECTS DEVELOPER documented as of this encounter Progress Notes [...] on filedocumented in this encounter Care Teams Driver Operator Relationship Specialty Start Date End Date Denis Platt MD [address] [place] [address] PCP - General Family Medicine 01/14/22 07/18/23 documented as of this encounter
--- OUTSIDE RECORDS SUMMARY | 2024-10-22 06:29 | XMS_ITS | Encounter Summary ---
Author Organization [facility] Healthcare Address [address] [place] [address] Care Team Providers Care Legal Assistant Name Role Phone Gideon Campbell MD Primary Care Provider [phone] Reason for Visit * Diagnostic Lab (Routine) - Canceled Specialty Diagnoses / Procedures Referred By Lyndsey t Referred To Contact Lab Diagnoses 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, unspecified iron deficiency anemia type PAD (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) (HCC) Procedures ESR - Miscellaneous Test ESR - Miscellaneous Test Luis F Lofton MD [address] [place] [address] Phone: tel: fax: Referral ID Status Reason Start Date Expiration Date V isits Requested Visits Authorized [id number] Canceled 10/28/2023 11/26/2024 1 1 Encounter Details Date Type Department Care Team (Late st Contact Info) Description 12/13/2023 9:45 AM SENIOR BUSINESS CONSULTANT Lab [address] [place] [id number] 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, unspecified iron deficiency anemia type (Primary Dx); PAD (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) (HCC); 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 Social History Tobacco [...] Legal Sex Female 8:30 AM SENIOR BUSINESS CONSULTANT Gender Identity Female 10/06/2021 4:28 PM SENIOR BUSINESS CONSULTANT Sexual Orientation Choose not to disclose 2020 4:28 PM SENIOR BUSINESS CONSULTANT documented as of this encounter Plan of Treatment Not on file documented as of this encounter Procedures Procedure Name Priority Date/Time Associated Diagnosis Comments ERYTHROCYTE SEDIMENTATION RATE Routine 12/13/2023 11:30 AM SENIOR BUSINESS CONSULTANT PROTIME-INR Routine 12/13/2023 11:30 AM SENIOR BUSINESS CONSULTANT retirement (current) use of anticoagulants DIFFERENTIAL AUTO Routine 12/13/2023 10: 15 AM SENIOR BUSINESS CONSULTANT 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, unspecified iron deficiency anemia type IRON PROFILE W/ IBC Routine 12/13/2023 1 0:15 AM SENIOR BUSINESS CONSULTANT 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, unspecified iron deficiency anemia type CBC WITH AUTO DIFFERENTIAL Routine 12/13/2023 10:15 AM SENIOR BUSINESS CONSULTANT 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, unspecified iron deficiency anemia type ERYTHROCYTE SEDIMENTATION RATE Routine 12/13/2023 10:15 AM SENIOR BUSINESS CONSULTANT 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, unspecified iron deficiency anemia type RETICULOCYTES Routine 12/13/2023 10:15 AM SENIOR BUSINESS CONSULTANT 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, unspecified iron deficiency anemia type FERRITIN Routine 12/13/2023 10:15 AM SENIOR BUSINESS CONSULTANT 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, unspecified iron deficiency anemia type documented in this encounter Results * (ABNORMAL) Erythrocyte sedimentation rate (12/13/2023 11:30 AM SENIOR BUSINESS CONSULTANT) Erythrocyte sedimentation rate 99(H) 1 - 30 mm/hr [facility] ([place]) Comment:Testing performed by : [place], [address] Blood 12/13/2023 11:3 0 AM SENIOR BUSINESS CONSULTANT 12/13/2023 12:11 PM SENIOR BUSINESS CONSULTANT us Luis F Lofton MD LAB BLOOD ORDERABLES Final Re sult [facility] ([place]) [address] [place] [address] [place] [address] * (ABNORMAL) Protime-INR (12/13/2023 11:30 AM SENIOR BUSINESS CONSULTANT) Pathologist [facility] PT 14.2(H) 10.3 - 13.7 sec [facility] ([place]) Comment:Testing performed by : [facility], [place], [address] INR 1.25(H) 0.90 - 1.20 [facility] ([place]) Comment: Interpretive data Oral anticoagulant therapeutic ranges: Venous thromboembolism prophylaxis or treatment: 2.0-3.0 CARDIOLOGY Standard range: 2.0-3.0 High-intensity range: 2.5-3.5 Refer to indication-specific guidelines for appropriate target ranges for prosthetic heart valve replacement. Current interpretive data was last revised on 2019. Testing performed by: [facility], [place], [address] Blood 12/13/2023 11:3 0 AM SENIOR BUSINESS CONSULTANT 12/13/2023 12:04 PM SENIOR BUSINESS CONSULTANT us Mia Barger NP LAB BLOOD ORDERABLES Final Result [facility]) 1 [facility] Department [place] [address] * (ABNORMAL) Differential, auto (12/13/2023 10:15 AM SENIOR BUSINESS CONSULTANT) Pathologist [facility] Neutrophil abs 5.0 1.5 - 6.5 K/cumm [facility]) Comment:Testing performed by : [facility] [address] Medical [address], [place] [address] Imm gran abs 0.0 0.0 - 0.1 K/cumm [facility]) Comment:Testing performed by : [facility] [address], Medical [address], [place] [address] Lymphocyte abs 0.7(L) 0.8 - 3.3 K/cumm [facility] ([place]) Comment:Testing performed by : [facility] [address], Medical [address], [place] [address] Monocyte abs 0.4 0.2 - 0.8 K/cumm [facility] ([place]) Comment:Testing performed by : [facility] [address], Medical Office [facility] [address], [place] [address] Eosinophil abs 0.0 0.0 - 0.5 K/cumm [facility] ([place]) Comment:Testing performed by : [facility] [address], Medical Office [facility] [address], [place] [address] Basophil abs 0.0 0.0 - 0.1 K/cumm [facility] ([place]) Comment:Testing performed by : [facility] [address], Medical Office [facility] [address], [place] [address] Neutrophil pct 81.6 % [facility] ([place]) Comment: Interpretive Data Percent cell count reference ranges are not reported, since discordance with absolute values may lead to misinterpretation of CBC data. Current Interpretive Data was last revised on 2022. Testing performed by: [facility] [address], Medical Office [facility] [address], [place] [address] Imm gran pct 0.2 % [facility]) Comment: Interpretive Data Percent cell count reference ranges are not reported, since discordance with absolute values may lead to misinterpretation of CBC data. Current Interpretive Data was last revised on 2022. Testing performed by: [facility] [address], Medical Office [address], [place] [address] Lymphocyte pct 10.9 % [facility] ([place]) Comment: Interpretive Data Percent cell count reference ranges are not reported, since discordance with absolute values may lead to misinterpretation of CBC data. Current Interpretive Data was last revised on 2022. Testing performed by: [facility] [address], Medical Office [facility] [address], [place] [address] Monocyte pct 6.5 % [facility] ([place]) Comment: Interpretive Data Percent cell count reference ranges are not reported, since discordance with absolute values may lead to misinterpretation of CBC data. Current Interpretive Data was last revised on 2022. Testing performed by: [facility] [address], Medical Office [facility] [address], [place] [address] Eosinophil pct 0.6 % [facility] ([place]) Comment: Interpretive Data Percent cell count reference ranges are not reported, since discordance with absolute values may lead to misinterpretation of CBC data. Current Interpretive Data was last revised on 2022. Testing performed by: [facility] [address], Medical Office [facility] [address], [place] [address] Basophil pct 0.2 % [facility] ([place]) Comment: Interpretive Data Percent cell count reference ranges are not reported, since discordance with absolute values may lead to misinterpretation of CBC data. Current Interpretive Data was last revised on 2022. Testing performed by: [facility] [address], Medical Office [facility] [address], [place] [address] Blood 12/13/2023 10:1 5 AM SENIOR BUSINESS CONSULTANT 12/13/2023 10:20 AM SENIOR BUSINESS CONSULTANT us Luis F Lofton MD LAB BLOOD ORDERABLES Final Re sult [facility] ([place]) 1 [facility] [place] [address] * (ABNORMAL) CBC with auto differential (12/13/2023 10:15 AM SENIOR BUSINESS CONSULTANT) WBC 6.2 3.8 - 9.9 K/cumm [facility] ([place]) Comment:Testing performed by : [facility] [address], Medical Office [address], [place] [address] Hgb 7.5(L) 11.9 - 15.5 g/dL [facility] ([place]) Comment:Testing performed by : [facility] [address], Medical Office [address], [place] [address] Hct 26.7(L) 35.6 - 45.5 % [facility] ([place]) Comment:Testing performed by : [facility] [address], Medical Office [facility] [address], [place] [address] Plt 559(H) 150 - 400 K/cumm [facility] ([place]) Comment:Testing performed by : [facility] [address], Medical Office [facility] [address], [place] [address] MPV 8.1(L) 9.1 - 12.3 fL [facility] ([place]) Comment:Testing performed by : [facility] [address], Medical Office [facility] [address], [place] [address] RBC 3.98 3.90 - 5.20 M/cumm [facility] ([place]) Comment:Testing performed by : [facility] [address], Medical Office [facility] [address], [place] [address] MCV 67.1(L) 81.3 - 96.4 fL [facility] ([place]) Comment:Testing performed by : [facility] [address], Medical Office [facility] [address], [place] [address] MCH 18.8(L) 27.1 - 33.3 pg [facility] ([place]) Comment:Testing performed by : [facility] [address], Medical Office [address], [place] [address] MCHC 28.1(L) 32.3 - 35.7 g/dL [facility] ([place]) Comment:Testing performed by : [facility] [address], Medical Office [facility] [address], [place] [address] RDW CV 19.2(H) 11.1 - 14.9 % [facility] ([place]) Comment:Testing performed by : [facility] [address], Medical Office [facility] [address], [place] [address] RDW SD 47.1 35.7 - 48.1 fL [facility] ([place]) Comment:Testing performed by : [facility] [address], Medical Office [facility] [address], [place] [address] NRBC abs Not Measured 0.00 - 0.01 K/cumm [facility] ([place]) Comment:Testing performed by : [facility] [address], Medical Office [facility] [address], [place] [address] Blood 12/13/2023 10:1 5 AM SENIOR BUSINESS CONSULTANT 12/13/2023 10:20 AM SENIOR BUSINESS CONSULTANT Luis F Lofton MD LAB BLOOD ORDERABLES Final Re sult Performing Organization Address [facility]/ZIP Co de Phone Number [facility] ([place]) 1 [facility] Department [place] [address] * (ABNORMAL) Reticulocyte Count (12/13/2023 10:15 AM SENIOR BUSINESS CONSULTANT) Retics, absolute 0.038 0.020 - 0.087 M/cumm [facility] ([place]) Comment:Testing performed by : [place], [address] Retics 1.0 0.4 - 2.9 % [facility] ([place]) Comment:Testing performed by : [place], [address] Reticulocyte Hgb 17.7(L) 30.5 - 38.0 pg [facility] ([place]) Comment:Testing performed by : [facility], [place], [address] Blood 12/13/2023 10:1 5 AM SENIOR BUSINESS CONSULTANT 12/13/2023 10:32 AM SENIOR BUSINESS CONSULTANT Luis F Lofton MD LAB BLOOD ORDERABLES Final Re sult Performing Organization Address City/[facility]/ZIP Co de Phone Number [facility] ([place]) 1 [facility] Department [place] [address] * (ABNORMAL) Ferritin (12/13/2023 10:15 AM SENIOR BUSINESS CONSULTANT) Ferritin 216(H) 15 - 150 ng/mL [facility] ([place]) Comment:Testing performed by : [place], [address] Blood 12/13/2023 10:1 5 AM SENIOR BUSINESS CONSULTANT 12/13/2023 10:32 AM SENIOR BUSINESS CONSULTANT Luis F Lofton MD LAB BLOOD ORDERABLES Final Re sult [facility] ([place]) [address] [place] [address] Department [place] [address] * (ABNORMAL) Iron profile w/ IBC (12/13/2023 10:15 AM SENIOR BUSINESS CONSULTANT) Iron 14(L) 35 - 145 mcg/dL [facility] ([place]) Comment:Testing performed by : [place], [address] TIBC 172(L) 250 - 400 mcg/dL [facility] ([place]) Comment:Testing performed by : [place], [address] Transferrin saturation 8(L) 20 - 50 % [facility] ([place]) Comment:Testing performed by : [place], [address] Blood 12/13/2023 10:1 5 AM SENIOR BUSINESS CONSULTANT 12/13/2023 10:32 AM SENIOR BUSINESS CONSULTANT Luis F Lofton MD LAB BLOOD ORDERABLES Final Re sult [facility]) 1 [facility] Department [place] [address] * (ABNORMAL) Erythrocyte sedimentation rate (12/13/2023 10:15 AM SENIOR BUSINESS CONSULTANT) Erythrocyte sedimentation rate 93(H) 1 - 30 mm/hr [facility] ([place]) Comment:Testing performed by : [place], [address] Blood 12/13/2023 10:1 5 AM SENIOR BUSINESS CONSULTANT 12/13/2023 10:20 AM SENIOR BUSINESS CONSULTANT us Luis F Lofton MD LAB BLOOD ORDERABLES Final Re sult [facility]) 1 [facility] [place] [address] documented in this encounter Visit Diagnoses Diagnosis 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, unspecified iron deficiency anemia type- Primary PAD (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) (HCC) Unspecified peripheral vascular disease retirement (current) use of anticoagulants Long-term (current) use of anticoagulants documented in this encounter Orders Appointment Requests Count Last Ordered Date Fi rst Ordered Date ONCBCN LAB APPOINTMENT 1 12/13/2023 documented in this encounter Care Teams Legal Assistant Relationship Specialty Start Date End Date Gideon Campbell MD [address] [facility] [address] [place] [address] PCP - General Family Medicine 07/19/23 documented as of this encounter
--- OUTSIDE RECORDS SUMMARY | 2024-10-22 06:29 | XMS_ITS | Encounter Summary ---
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 Social [...] on file Legal Sex Female 8:30 AM LENS EXAMINER Gender Identity Female 10/06/2021 4:28 PM LENS EXAMINER Sexual Orientation Choose not to disclose 2020 4:28 PM LENS EXAMINER documented as of this encounter Plan of Treatment Not on file documented as of this encounter Visit Diagnoses Diagnosis Atrial fibrillation (CMS/HCC) [I48.91]- Primary Atrial fibrillation [facility] current use of anticoagulant therapy documented in this encounter Care Teams Oil Well Logger Relationship Specialty Start Date End Date Gideon Campbell MD 2 [facility] [place] [id number] PCP - General Family Medicine 07/19/23 documented as of this encounter
--- OUTSIDE RECORDS SUMMARY | 2024-10-22 06:29 | XMS_ITS | Encounter Summary ---
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 Procedures XR Hip Left 2 or 3 Views Herber Knott MD [address] [place] [address] [address], [place] [address] Phone: tel: [facility] Referral ID Status Reason Start Date Expiration Date Visits Re quested Visits Authorized [id number] Closed 04/15/2023 04/15/2023 1 1 Reason for Visit * Reason Comments Follow-up Encounter Details Date Type Department Care Team (Late st Contact Info) Description 04/15/2023 9:45 AM CDT Office Visit [facility] Medical [facility] Orthopedics and Sports Medicine [address] [facility] [address], [place] [address] Herber Knott MD [address] [facility] [address] [place] [address] Aftercare following left hip joint [...] on file Legal Sex Female 8:30 AM BLENDER SNUFF Gender Identity Female 10/06/2021 4:28 PM BLENDER SNUFF Sexual Orientation Choose not to disclose 2020 4:28 PM BLENDER SNUFF documented as of this encounter Last Filed [...] position with advanced right hip osteoarthritis with [id number] contact, osteophyte formation, subluxation. Assessment/Plan Quin was [...] position with advanced right hip osteoarthritis with [id number] contact, osteophyte formation, subluxation. 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
--- OUTSIDE RECORDS SUMMARY | 2024-10-22 06:29 | XMS_ITS | Encounter Summary ---
Author Organization [facility] Healthcare Address [address] [place] [address] Care Team Providers Care Skid Man Name Role Phone Gideon Campbell MD Primary Care Provider [phone] Reason for Visit * Reason Comments Leg Pain Hip Pain Follow-up Pt is trying to get back on surgery list. Dr. Lofton found something in her lab that needs discussed. Leg Swelling Pt R leg and knee is swollen Encounter Details Date Type Department Care Team (Late st Contact Info) Description 10/18/2023 2:30 PM COMMUNICATION SPEC Office Visit [facility] Medical Group Primary Care at [address] [address] Gideon Campbell MD [address] [place] [address] Weight loss (Primary Dx); Essential hypertension; [...] on file Legal Sex Female 8:30 AM COMMUNICATION SPEC Gender Identity Female 10/06/2021 4:28 PM COMMUNICATION SPEC Sexual Orientation Choose not to disclose 2020 4:28 PM COMMUNICATION SPEC documented as of this encounter Last Filed Vital Signs Vital Sign Reading Time Taken Comments Blood Pressure 160/78 10/18/2023 2:18 PM COMMUNICATION SPEC Pulse 63 10/18/2023 2:18 PM COMMUNICATION SPEC Temperature - - Respiratory Rate 16 10/18/2023 2:18 PM COMMUNICATION SPEC Oxygen Saturation 99% 10/18/2023 2:18 PM COMMUNICATION SPEC Inhaled Oxygen Concentration - - Weight 59.1 kg (130 lb 4.8 oz) 10/18/2023 2:18 P M COMMUNICATION SPEC Height 161.3 cm (5' 3.5 ) 10/18/2023 2:18 PM COMMUNICATION SPEC Body Mass Index 22.72 10/18/2023 2:18 PM COMMUNICATION SPEC documented in this encounter Ordered Prescriptions Prescription [...] for 12 hours. No follow-ups on file. UNICATION SPEC documented in this encounter Miscellaneous Notes * Assessment & Plan Note - Gideon Campbell MD - 10/18/2023 2:47 PM CSTAssociated Problem(s): Primary osteoarthritis of right hip Worsening sx at this time UNICATION SPEC * Assessment & Plan Note - Gideon [...] 06/16/2023 Significantly elevated Likely 2/2 to pain UNICATION SPEC * Assessment & Plan Note - Gideon Campbell MD - 10/18/2023 2:38 PM CSTAssociated Problem(s): Weight loss Wt Readings from Last 3 Encounters: 10/18/23 59.1 kg (130 lb 4.8 oz) 10/18/23 57 kg (125 lb 9.6 oz) 07/29/23 56.9 kg (125 lb 6.4 oz) UNICATION SPEC documented in this encounter Plan of Treatment Not on file documented as of this encounter Visit Diagnoses Diagnosis Weight loss- Primary Loss of weight Essential hypertension Unspecified essential hypertension Primary osteoarthritis of right hip Microcytic anemia Unspecified iron deficiency anemia documented in this encounter Care Teams Skid Man Relationship Specialty Start Date End Date Gideon Campbell MD 2 [facility] [address] [address] PCP - General Family Medicine 07/19/23 documented as of this encounter
--- OUTSIDE RECORDS SUMMARY | 2024-10-22 06:29 | XMS_ITS | Encounter Summary ---
Author Organization [facility] Medical Group Address [address] [place] [address] Care Team Providers Care Taxi Driver Supervisor Name Role Phone Denis Platt MD Primary Care Provide r Reason for Visit * Reason Comments Establish Care New patient Hip Pain Knee Pain Encounter Details Date Type Department Care Team (Late st Contact Info) Description 07/08/2023 12:30 PM CDT Office Visit [facility] Medical [facility] Primary Care at [address] [place] [address] Gideon Campbell MD [address] [place] [address] [address] [place] [address] Essential hypertension (Primary Dx); Paroxysmal atrial fibrillation (CMS/HCC) (HCC); Microcytic anemia; 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 goal <100; Non-rheumatic aortic stenosis; Thrombocytosis; residential current use of anticoagulant therapy Social [...] on file Legal Sex Female 8:30 AM EXPANDER Gender Identity Female 10/06/2021 4:28 PM EXPANDER Sexual Orientation Choose not to disclose 2020 4:28 PM EXPANDER documented as of this encounter Last Filed [...] OTHER MEDICAL, and Hypertension. who presents to [facility] States that she recently went for [...] this time following with cardio +murmur Thrombocytosis skein drier current use of anticoagulant therapy Assessment & [...] MD - 07/08/2023 1:04 PM CDTAssociated Problem(s): skein drier current use of anticoagulant therapy Pt no [...] cardio * Assessment & Plan Note - iGdeon Campbell MD - 07/08/2023 12:38 PM CDTAssociated [...] Final Resul t [facility] ([place]) 1 [facility] [place] [address] * (ABNORMAL) Iron profile w/ IBC (07/08/2023 1:30 PM CDT) Iron 11(L) 35 - 145 mcg/dL [facility] ([place]) TIBC 161(L) 250 - 400 mcg/dL [facility] ([place]) Transferrin saturation 7(L) 20 - 50 % [facility] ([place]) Blood 07/08/2023 1:30 PM CDT 07/08/2023 2:09 PM CDT Gideon Campbell MD LAB BLOOD ORDERABLES Final Resul t [facility] ([place]) 1 [facility] [place] [address] * (ABNORMAL) CBC with auto differential (07/08/2023 [...] ([place]) MCH 20.3(L) 27.1 - 33.3 pg [facility] ([place]) MCHC 28.6(L) 32.3 - 35.7 g/dL [facility] ([place]) RDW CV 18.4(H) 11.1 - 14.9 % [facility] ([place]) RDW SD 46.8 35.7 - 48.1 fL [facility] ([place]) NRBC abs 0.00 0.00 - 0.01 K/cumm [facility] ([place]) Blood 07/08/2023 1:30 PM CDT 07/08/2023 2:09 PM CDT us Gideon Campbell MD LAB BLOOD ORDERABLES Final Resul t [facility] ([place]) 1 [facility] Department [place] [address] documented in this encounter Visit Diagnoses Diagnosis Essential hypertension- Primary Unspecified essential hypertension Paroxysmal atrial fibrillation (CMS/HCC) (HCC) Atrial fibrillation Microcytic anemia Unspecified iron deficiency anemia 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 goal <100 Other and unspecified hyperlipidemia Non-rheumatic aortic stenosis Thrombocytosis Essential thrombocythemia skein drier current use of anticoagulant therapy documented in [...] 10/18/2023 added in this encounter Care Teams Taxi Driver Supervisor Relationship Specialty Start Date End Date Denis Platt MD [address] [place] [address] PCP - General Family Medicine 01/14/22 07/18/23 documented as of this encounter
--- OUTSIDE RECORDS SUMMARY | 2024-10-22 06:29 | XMS_ITS | Encounter Summary ---
Author Organization [facility] Address [address] [place] [address] Phone Care Team Providers Care Prick Stitcher Name Role Phone Gideon Campbell MD Primary Care Provider [phone] Encounter Details Date Type Department Care Team (Late st Contact Info) Description 10/28/2023 Telephone [facility] Oncology [address] [place] [address] Yamileth Santiago, JACOB Social History Tobacco [...] on file Legal Sex Female 8:30 AM QC TECH Gender Identity Female 10/06/2021 4:28 PM QC TECH Sexual Orientation Choose not to disclose 2020 4:28 PM QC TECH documented as of this encounter Miscellaneous Notes * Telephone Encounter - Carmela Puri RN - 10/29/2023 8:12 AM QC TECH Patient's daughter was called and reviewed lab test results with her. Patient to start on Slow Fe otc tablets 1 daily and FU labs and DV in 6 weeks./res TECH documented in this encounter Plan of Treatment Not on file documented as of this encounter Visit Diagnoses Not on filedocumented in this encounter Care Teams Prick Stitcher Relationship Specialty Start Date End Date Gideon Campbell MD [address] [facility] [address] [place] [address] PCP - General Family Medicine 07/19/23 documented as of this encounter
--- OUTSIDE RECORDS SUMMARY | 2024-10-22 06:29 | XMS_ITS | Encounter Summary ---
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 of anticoagulant [...] on file Legal Sex Female 8:30 AM TEACHER CITIZENSHIP Gender Identity Female 10/06/2021 4:28 PM TEACHER CITIZENSHIP Sexual Orientation Choose not to disclose 2020 4:28 PM TEACHER CITIZENSHIP documented as of this encounter Plan of Treatment Not on file documented as of this encounter Visit Diagnoses Diagnosis Atrial fibrillation (CMS/HCC) [I48.91]- Primary Atrial fibrillation group home current use of anticoagulant therapy documented in this encounter Care Teams Tongue Trimmer Relationship Specialty Start Date End Date Gideon Campbell MD 2 [facility] [place] [id number] PCP - General Family Medicine 07/19/23 documented as of this encounter
--- OUTSIDE RECORDS SUMMARY | 2024-10-22 06:29 | XMS_ITS | Encounter Summary ---
Author Organization [facility] Healthcare Address [address] [place] [address] Care Team Providers Care Apron Worker Name Role Phone Gideon Campbell MD Primary Care Provider Encounter Details Date Type Department Care Team (Late st Contact Info) Description 10/18/[address] [facility] Cardiology [address] [place] [address] Andrade Brown MD [facility] [place] [address] Social History Tobacco Use Types Packs/Day Years [...] on file Legal Sex Female 8:30 AM LIVESTOCK BREEDER Gender Identity Female 10/06/2021 4:28 PM LIVESTOCK BREEDER Sexual Orientation Choose not to disclose 2020 4:28 PM LIVESTOCK BREEDER documented as of this encounter Miscellaneous Notes * Telephone Encounter - Jacque Hitchcock RN - 10/22/2023 10:21 AM LIVESTOCK BREEDER Unable to reach pt by phone, [employer] message sent. STOCK BREEDER * Telephone Encounter - Jacque Hitchcock RN - 10/20/2023 1:55 PM LIVESTOCK BREEDER LM on with response from [facility]. Requested pt return call to schedule a f/u in the office with [facility]. STOCK BREEDER * Telephone Encounter - Jacque Hitchcock RN - 10/18/2023 4:55 PM LIVESTOCK BREEDER Spoke with pt after getting INR results [...] pt does not have a f/u with [facility]. Will forward to [facility]. STOCK BREEDER documented in this encounter Plan of Treatment Not on file documented as of this encounter Visit Diagnoses Not on filedocumented in this encounter Care Teams Apron Worker Relationship Specialty Start Date End Date Gideon Campbell MD [address] [place] [address] [place] [address] PCP - General Family Medicine 07/19/23 documented as of this encounter
--- OUTSIDE RECORDS SUMMARY | 2024-10-22 06:29 | XMS_ITS | Encounter Summary ---
Author Organization [facility] Address [address] [place] [address] Phone Care Team Providers Care Chief Crew Scheduler Name Role Phone Gideon Campbell MD Primary Care Provider Encounter Details Date Type Department Care Team (Late st Contact Info) Description 10/15/[address] [facility] Oncology [address] [place] [phone] Deborah Armstrong, JACOB Social History Tobacco [...] on file Legal Sex Female 8:30 AM ADMISSIONS GATE ATTENDANT Gender Identity Female 10/06/2021 4:28 PM ADMISSIONS GATE ATTENDANT Sexual Orientation Choose not to disclose 2020 4:28 PM ADMISSIONS GATE ATTENDANT documented as of this encounter Miscellaneous Notes * Telephone Encounter - Deborah Armstrong CLT - 10/15/2023 1:32 PM ADMISSIONS GATE ATTENDANT appt confirmation SSIONS GATE ATTENDANT documented in this encounter Plan of Treatment Not on file documented as of this encounter Visit Diagnoses Not on filedocumented in this encounter Care Teams Chief Crew Scheduler Relationship Specialty Start Date End Date Gideon Campbell MD 2 [facility] [address] [place] [address] PCP - General Family Medicine 07/19/23 documented as of this encounter
--- OUTSIDE RECORDS SUMMARY | 2024-10-22 06:29 | XMS_ITS | Encounter Summary ---
Author Organization [facility] Address [address] [place] [address] Phone Care Team Providers Care Fast Food Shift Supervisor Name Role Phone Gideon Campbell MD Primary Care Provider [phone] Encounter Details Date Type Department Care Team (Late st Contact Info) Description 12/23/2023 Orders Only [facility] Oncology [address] [place] [address] Medical [facility] [address] [address] Luis F Lofton MD [address] [place] [address] Social History Tobacco Use Types Packs/Day Years [...] file Legal Sex Female 8:30 AM FILTER TENDER Gender Identity Female 10/06/2021 4:28 PM FILTER TENDER Sexual Orientation Choose not to disclose 2020 4:28 PM FILTER TENDER documented as of this encounter Plan of Treatment Not on file documented as of this encounter Visit Diagnoses Not on filedocumented in this encounter Care Teams Fast Food Shift Supervisor Relationship Specialty Start Date End Date Gideon Campbell MD 2 [facility] [address] [address] PCP - General Family Medicine 07/19/23 documented as of this encounter
--- OUTSIDE RECORDS SUMMARY | 2024-10-22 06:29 | XMS_ITS | Encounter Summary ---
Author Organization [facility] Healthcare Address [address] [place] [address] Care Team Providers Care Forger Helper Name Role Phone Denis Platt MD Primary Care Provide r Reason for Referral * Cardiology (Routine) - Closed Specialty Diagnoses / Procedures Referred By Jayaac t Referred To Contact Diagnoses Pre-operative exam Procedures ECG 12 lead Herber Knott MD [address] [place] [address] [address], [place] [address] Phone: tel: [address] [phone] Referral ID Status Reason Start Date Expiration Date Visits Re quested Visits Authorized [id number] Closed 04/22/2023 06/16/2023 1 1 Reason for Visit * Cardiology (Routine) - Closed Specialty Diagnoses / Procedures Referred By Lyndsey farmer Referred To Contact Diagnoses Pre-operative exam Procedures ECG 12 lead Herber Knott MD [address] [place] [address] [address], [place] [address] Phone: tel: [address] [phone] Referral ID Status Reason Start Date Expiration Date Visits Re quested Visits Authorized [id number] Closed 04/22/2023 06/16/2023 1 1 Encounter Details Date Type Department Care Team (Latest Contact Info) Description 06/16/2023 9:30 AM CDT - 06/16/2023 11:59 PM CDT Hospital Encounter [facility] Cardiology [address] [place] [address] Pre-operative exam Discharge Disposition: Discharge to home [...] on file Legal Sex Female 8:30 AM AGRICULTURAL RESEARCH ENGINEER Gender Identity Female 10/06/2021 4:28 PM AGRICULTURAL RESEARCH ENGINEER Sexual Orientation Choose not to disclose 2020 4:28 PM AGRICULTURAL RESEARCH ENGINEER documented as of this encounter Medications [...] Rate: 70 bpm RR Interval: 852 msec MI Interval: 139 msec QRS Duration: 132 msec QT Interval: 393 msec QTC Interval: 414 msec P-R-T Convoy: 76 - -60 - 38 degrees SINUS [...] ECG ORDERABLES Edited R esult - Final [facility] documented in this encounter Visit Diagnoses Diagnosis Pre-operative exam Unspecified pre-operative examination documented in this encounter Care Teams Forger Helper Relationship Specialty Start Date End Date Denis Platt MD [address] [place] [address] PCP - General Family Medicine 01/14/22 07/18/23 documented as of this encounter
--- OUTSIDE RECORDS SUMMARY | 2024-10-22 06:29 | XMS_ITS | Encounter Summary ---
Author Organization [facility] Address [address] [place] [address] Care Team Providers Care Systems Integration Advisor Name Role Phone Denis Platt MD Primary Care Provide r Encounter Details Date Type Department Care Team (Late st Contact Info) Description 06/11/2023 Telephone [facility] Orthopedics and Sports Medicine 4 [facility] [address] [place] [address] Herber Knott MD [address] [place] [address] [address] [place] [address] Social History Tobacco Use Types Packs/Day Years Used Date Smoking Tobacco: Former Cigarettes Q uit: 09/28/1978 Smokeless Tobacco: Never Alcohol Use Standard Drinks/Week Comments Yes 0 (1 standard drink = 0.6 oz pur e alcohol) Comments Unknown Sex and Gender Information Value Date Recorded Sex Assigned at Not on file Legal Sex Female 8:30 AM SALESPERSON WOMEN'S HATS Gender Identity Female 10/06/2021 4:28 PM SALESPERSON WOMEN'S HATS Sexual Orientation Choose not to disclose 2020 4:28 PM SALESPERSON WOMEN'S HATS documented as of this encounter Miscellaneous Notes * Telephone Encounter - Amie Lion MA - 06/11/2023 11:23 AM CDT Called and lvm for patient to have labs and clearance done chloe. documented in this encounter Plan of Treatment Not on file documented as of this encounter Visit Diagnoses Not on filedocumented in this encounter Care Teams Systems Integration Advisor Relationship Specialty Start Date End Date Denis Platt MD [address] [place] [address] PCP - General Family Medicine 01/14/22 07/18/23 documented as of this encounter
--- OUTSIDE RECORDS SUMMARY | 2024-10-22 06:29 | XMS_ITS | Encounter Summary ---
Author Organization [facility] Address [address] [place] [address] Phone Care Team Providers Care Cord Tire Builder Name Role Phone Gideon Campbell MD Primary Care Provider Reason for Visit * Reason Comments Consult * Consultation (Routine) - Closed Specialty Diagnoses / Procedures Referred By Contac t Referred To Contact Oncology Diagnoses 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, unspecified iron deficiency anemia type Gideon Campbell MD [address] [facility] [address] [place] [address] Phone: tel: fax: [facility] Oncology [address] [place] [address] [address] Phone: tel: fax: Referral ID Status Reason Start Date Expiration Date V isits Requested Visits Authorized [id number] Closed Specialty Services Required 09/15/2023 10/10/2024 99 99 Encounter Details Date Type Department Care Team (Late st Contact Info) Description 10/18/2023 11:00 AM SURFACER Office Visit [facility] Oncology [address] [place] [address] B [facility] [address] [place] [address] Luis F Lofton MD [address] [place] [address] [address] [place] [address] [facility]FP (current) use of anticoagulants (Primary Dx); Iron [...] on file Legal Sex Female 8:30 AM SURFACER Gender Identity Female 10/06/2021 4:28 PM SURFACER Sexual Orientation Choose not to disclose 2020 4:28 PM SURFACER documented as of this encounter Last Filed Vital Signs Vital Sign Reading Time Taken Comments Blood Pressure 168/68 10/18/2023 11:16 AM SURFACER Pulse 75 10/18/2023 11:16 AM SURFACER Temperature 36.3 ??C (97.3 ??F) 10/18/2023 11:[address] Respiratory Rate 20 10/18/2023 11:16 AM SURFACER Oxygen Saturation 100% 10/18/2023 11:16 AM SURFACER Inhaled Oxygen Concentration - - Weight 57 kg (125 lb 9.6 oz) 10/18/2023 11:16 AM SURFACER Height 161.3 cm (5' 3.5 ) 10/18/2023 11:16 AM CS T Body Mass Index 21.9 10/18/2023 11:16 AM SURFACER documented in this encounter Progress Notes * [...] goal <100 04/07/2017 PAD (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) ([facility]) 04/07/2017 Essential hypertension 04/07/2017 Atrial fibrillation ([facility]) [I48.91] 03/29/2017 [facility]FP current use of anticoagulant therapy 03/29/2017 Assessment: [...] iron absorbed Luis F Lofton MD 10/18/2023 [facility]ER documented in this encounter Plan of Treatment Scheduled Orders Name Type Priority Associated Diagnoses Orde r Schedule CBC with auto differential Lab Routine 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, unspecified iron deficiency anemia type [facility] (current) use of anticoagulants Expected: 10/25/2023, Expires: 10/18/2024 documented as of this encounter Results * (ABNORMAL) Comprehensive metabolic panel (01/31/2024 9:20 AM CDT) Sodium 138 135 - 145 mmol/L Comment:Testing performed by : [place], [address] Potassium, pl 4.1 3.3 - 4.9 mmol/L [facility] ([facility]) Comment:Testing performed by : [place], [address] Chloride 101 97 - 110 mmol/L [facility] ([place]) Comment:Testing performed by : [place], [address] CO2 27 22 - 32 mmol/L [facility] ([place]) Comment:Testing performed by : [facility], [place], [address] Anion gap 10 2 - 15 mmol/L [facility] ([place]) Comment:Testing performed by : [facility], [facility], [place], [address] BUN 9 6 - 25 mg/dL [facility] ([place]) Comment:Testing performed by : [facility], [place], [address] Creatinine 0.72 0.60 - 1.10 mg/dL [facility] ([place]) Comment:Testing performed by : [facility], [place], [address] Glucose 108 70 - 199 mg/dL [facility] ([place]) Comment: Interpretive Data Fasting glucose >/= 126 [...] was last revised 2022. Testing performed by: [facility], [place], [address] Calcium 8.9 8.5 - 10.3 mg/dL [facility] ([place]) Comment:Testing performed by : [facility], [place], [address] Bilirubin, total 0.4 0.1 - 1.2 mg/dL [facility] ([place]) Comment:Testing performed by : [facility], [place], [address] Protein, pl 5.9(L) 6.5 - 8.5 g/dL [facility] ([place]) Comment:Testing performed by : [facility], [place], [address] Albumin 2.9(L) 3.5 - 5.0 g/dL [facility] ([place]) Comment:Testing performed by : [place], [address] Alk phos 127 40 - 130 Units/L [facility] ([place]) Comment:Testing performed by : [facility], [facility], [place], [address] ALT 5(L) 7 - 45 Units/L [facility] ([place]) Comment:Testing performed by : [facility], [facility], [place], [address] AST 7(L) 10 - 45 Units/L [facility] ([place]) Comment:Testing performed by : [facility], [facility], [place], [address] Blood 01/31/2024 9:20 AM CDT 01/31/2024 9:38 AM CDT Narrative [facility] ([facility]) - 01/31/2024 10:05 AM CDT [facility] us Luis F Lofton MD LAB BLOOD ORDERABLES Final Re sult Performing Organization Address City/[facility]/ZIP Co de Phone Number [facility] ([place]) [address] [place] [address] Department [place] [address] * (ABNORMAL) aPTT (10/18/2023 1:00 PM SURFACER) aPTT 40(H) 28 - 38 sec [facility] ([place]) Comment: Interpretive Data Heparin therapeutic range: 66.0 - 100.0 seconds. Range based on correlation with therapeutic heparin activity range of 0.3 - 0.7 Units/mL. Current interpretive data was last revised on 2023. Testing performed by: [place], [address] Blood 10/18/2023 1:00 PM SURFACER 10/18/2023 2:08 PM SURFACER us Luis F Lofton MD LAB BLOOD ORDERABLES Final Re sult [facility] ([place]) 1 [facility] Department [place] [address] * Protime-INR (10/18/2023 1:00 PM SURFACER) PT 13.7 10.3 - 13.7 sec [facility] ([place]) Comment:Testing performed by : [place], [address] INR 1.20 0.90 - 1.20 [facility] ([place]) Comment: Interpretive data Oral anticoagulant therapeutic ranges: Venous thromboembolism prophylaxis or treatment: 2.0-3.0 CARDIOLOGY Standard range: 2.0-3.0 High-intensity range: 2.5-3.5 Refer to indication-specific guidelines for appropriate target ranges for prosthetic heart valve replacement. Current interpretive data was last revised on 2019. Testing performed by: [place], [address] Blood 10/18/2023 1:00 PM SURFACER 10/18/2023 2:08 PM SURFACER Luis F Lofton MD LAB BLOOD ORDERABLES Final Re sult Performing Organization Address [facility]/ZIP Co de Phone Number [facility] ([place]) [address] [place] [address] Department [place] [address] * (ABNORMAL) Fibrinogen (10/18/2023 1:00 PM SURFACER) Fibrinogen 533(H) 170 - 400 mg/dL [facility] ([place]) Comment:Testing performed by : [facility], [place], [address] Blood 10/18/2023 1:00 PM SURFACER 10/18/2023 2:08 PM SURFACER Luis F Lofton MD LAB BLOOD ORDERABLES Final Re sult [facility] ([place]) 1 [facility] Department [place] [address] documented in this encounter Visit Diagnoses Diagnosis [facility] (current) use of anticoagulants- Primary Long-term (current) use of anticoagulants 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, unspecified iron deficiency anemia type 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, unspecified iron deficiency anemia type [facility] (current) use of anticoagulants Long-term (current) use [...] 10/18/2023 documented in this encounter Care Teams Cord Tire Builder Relationship Specialty Start Date End Date Gideon Campbell MD [address] [facility] [address] [place] [address] PCP - General Family Medicine 07/19/23 documented as of this encounter
--- OUTSIDE RECORDS SUMMARY | 2024-10-22 06:29 | XMS_ITS | Encounter Summary ---
Author Organization [facility] Healthcare Address [address] [place] [address] Care Team Providers Care Wildlife Conservation Officer Name Role Phone Gideon Campbell MD Primary Care Provider [phone] Encounter Details Date Type Department Care Team (Late st Contact Info) Description 07/30/2023 Orders Only [facility] Primary Care at [address] [place] [address] Gideon Campbell MD [address] [place] [address] [address] [place] [address] Other iron deficiency anemia (Primary [...] on file Legal Sex Female 8:30 AM TELECOMMUNICATIONS PROFESSIONAL Gender Identity Female 10/06/2021 4:28 PM TELECOMMUNICATIONS PROFESSIONAL Sexual Orientation Choose not to disclose 2020 4:28 PM TELECOMMUNICATIONS PROFESSIONAL documented as of this encounter Plan of Treatment Not on file documented as of this encounter Visit Diagnoses Diagnosis Other iron deficiency anemia- Primary Unintentional weight loss Loss of weight documented in this encounter Care Teams Wildlife Conservation Officer Relationship Specialty Start Date End Date Gideon Campbell MD [address] [facility] [address] [place] [address] PCP - General Family Medicine 07/19/23 documented as of this encounter
--- OUTSIDE RECORDS SUMMARY | 2024-10-22 06:29 | XMS_ITS | Encounter Summary ---
Author Organization [facility] Healthcare Address [address] [place] [address] Care Team Providers Care Tow Truck Driver Name Role Phone Gideon Campbell MD Primary Care Provider [phone] Encounter Details Date Type Department Care Team (Late st Contact Info) Description 07/19/2023 Telephone [facility] Primary Care at [address] [place] [address] Gideon Campbell MD [address] [place] [address] [address] [place] [address] Social History Tobacco Use Types [...] on file Legal Sex Female 8:30 AM ROTARY SOIL STABILIZER Gender Identity Female 10/06/2021 4:28 PM ROTARY SOIL STABILIZER Sexual Orientation Choose not to disclose 2020 4:28 PM ROTARY SOIL STABILIZER documented as of this encounter Miscellaneous Notes * Telephone Encounter - Diandra Christopher LPN - 07/19/2023 3:18 PM CDT Patient made aware of lab results. Patient declines being referred to acid purifier at this time andwants to discuss it [...] on filedocumented in this encounter Care Teams Tow Truck Driver Relationship Specialty Start Date End Date Gideon Campbell MD [address] [facility] [address] [place] [address] PCP - General Family Medicine 07/19/23 documented as of this encounter
--- OUTSIDE RECORDS SUMMARY | 2024-10-22 06:29 | XMS_ITS | Encounter Summary ---
Author Organization [facility] Address [address] [place] [address] Phone Care Team Providers Care Underground Mine Machinery Mechanic Name Role Phone Gideon Campbell MD Primary Care Provider Encounter Details Date Type Department Care Team (Late st Contact Info) Description 12/10/2023 Telephone [facility] Oncology [address] [place] [address] Deborah Armstrong, JACOB Social History Tobacco [...] on file Legal Sex Female 8:30 AM GENERATION ENGINEERING TECHNOLOGIST Gender Identity Female 10/06/2021 4:28 PM GENERATION ENGINEERING TECHNOLOGIST Sexual Orientation Choose not to disclose 2020 4:28 PM GENERATION ENGINEERING TECHNOLOGIST documented as of this encounter Miscellaneous Notes * Telephone Encounter - Deborah Armstrong CLT - 12/10/2023 1:50 PM GENERATION ENGINEERING TECHNOLOGIST 12/13/23 appt confirmation RATION ENGINEERING TECHNOLOGIST documented in this encounter Plan of Treatment Not on file documented as of this encounter Visit Diagnoses Not on filedocumented in this encounter Care Teams Underground Mine Machinery Mechanic Relationship Specialty Start Date End Date Gideon Campbell MD 2 [facility] [address] [address] PCP - General Family Medicine 07/19/23 documented as of this encounter
--- OUTSIDE RECORDS SUMMARY | 2024-10-22 06:29 | XMS_ITS | Encounter Summary ---
Author Organization [facility] Healthcare Address [address] [place] [address] Care Team Providers Care Bladder Cleaner Name Role Phone Denis Platt MD Primary Care Provide r Encounter Details Date Type Department Care Team (Latest Contact Info) Description 06/17/2023 10:54 AM CDT - 06/17/2023 11:59 PM CDT Hospital Encounter [address] [address] Pre-operative exam Discharge Disposition: Discharge to home [...] on file Legal Sex Female 8:30 AM SHAKER OPERATOR Gender Identity Female 10/06/2021 4:28 PM SHAKER OPERATOR Sexual Orientation Choose not to disclose 2020 4:28 PM SHAKER OPERATOR documented as of this encounter Medications [...] TIGRE CONN ([place]) Comment:Testing performed by : [facility], 1 [place]., [address] Organism (CLINICALLY INSIGNIFICANT GROWTH TIGRE CONN ([place]) Urine 06/17/2023 10:3 0 AM CDT 06/17/2023 3:00 PM CDT Narrative TIGRE CONN ([place]) - 06/18/2023 5:27 PM CDT Urine culture reflexed based upon urinalysis results. Testing performed by [facility] Microbiology Laboratory ([phone]) us Herber Knott MD LAB MICROBIOLOGY - [facility] AL ORDERABLES Final Result TIGRE CONTI) [address] [facility] Department [place] [address] * (ABNORMAL) Urinalysis, microscopic only (06/17/2023 10:30 [...] Reflex to urine culture will be performed. [facility] ([place] Urine 06/17/2023 10:3 0 AM CDT 06/17/2023 11:12 AM CDT Herber Knott MD LAB URINE ORDERABLES [facility] al Result [facility] ([place]) 1 [facility] Department [place] [address] * (ABNORMAL) Urinalysis reflex to microscopic and culture Urine (06/17/2023 10:30 AM CDT) Color, ur Yellow Yellow [facility] ([place] Clarity, ur Turbid(A) Clear [facility]ER A ([place]) Specific gravity, ur 1.009 1.003 - 1.030 [facility] ([place]) pH, urine 6.5 [facility] ([place] Protein, ur ql Negative Negative [...] 06/17/2023 11:12 AM CDT Narrative TIGRE CONN ([place]) - 06/17/2023 11:16 AM CDT ?? Urine pH is affected by diet, medications, systemic acid-base disturbances, and renal tubular function. ??pH may affect urinary stone formation. ??For example, urine pH below 6.0 may help reduce the tendency for calcium phosphate stones and pH greater than 6.0 may reduce the tendency for uric acid stone formation. Source: Im[employer]. Last revised 10-21-2017 us Herber Knott MD LAB MICROBIOLOGY - [facility] AL ORDERABLES Final Result TIGRE FABIEN ([place]) 1 [facility] Department [place] [address] documented in this encounter Visit Diagnoses Diagnosis Pre-operative exam Unspecified pre-operative examination documented in this encounter Care Teams Bladder Cleaner Relationship Specialty Start Date End Date Denis Platt MD [address] [place] [address] PCP - General Family Medicine 01/14/22 07/18/23 documented as of this encounter
--- OUTSIDE RECORDS SUMMARY | 2024-10-22 06:29 | XMS_ITS | Encounter Summary ---
Author Organization [facility] Address [address] [place] [address] Phone Care Team Providers Care Portfolio Architect Name Role Phone Gideon Campbell MD Primary Care Provider [phone] Encounter Details Date Type Department Care Team (Late st Contact Info) Description 08/04/2023 Telephone [facility] Oncology [address] [place] [phone] Yamileth Santiago, JACOB Social History Tobacco [...] file Legal Sex Female 8:30 AM PARTS COUNTER ASSOCIATE Gender Identity Female 10/06/2021 4:28 PM PARTS COUNTER ASSOCIATE Sexual Orientation Choose not to disclose 2020 4:28 PM PARTS COUNTER ASSOCIATE documented as of this encounter Miscellaneous [...] on filedocumented in this encounter Care Teams Portfolio Architect Relationship Specialty Start Date End Date Gideon Campbell MD [address] [facility] [address] [place] [phone] PCP - General Family Medicine 07/19/23 documented as of this encounter
--- OUTSIDE RECORDS SUMMARY | 2024-10-22 06:29 | XMS_ITS | Encounter Summary ---
Author Organization [facility] Healthcare Address [address] [place] [address] Care Team Providers Care Facilities Flight Check Pilot Name Role Phone Gideon Campbell MD Primary Care Provider [phone] Encounter Details Date Type Department Care Team (Late st Contact Info) Description 12/23/2023 Orders Only [facility] Cancer [facility] 4 [facility] [address] [place] [address] Luis F Lofton MD [address] [place] [address] [address] [place] [address] Social History Tobacco Use Types Packs/Day Years [...] on file Legal Sex Female 8:30 AM CARPENTERS SUPERVISOR Gender Identity Female 10/06/2021 4:28 PM CARPENTERS SUPERVISOR Sexual Orientation Choose not to disclose 2020 4:28 PM CARPENTERS SUPERVISOR documented as of this encounter Plan of Treatment Not on file documented as of this encounter Visit Diagnoses Not on filedocumented in this encounter Care Teams Facilities Flight Check Pilot Relationship Specialty Start Date End Date Gideon Campbell MD [address] [facility] [address] [place] [phone] PCP - General Family Medicine 07/19/23 documented as of this encounter
--- OUTSIDE RECORDS SUMMARY | 2024-10-22 06:29 | XMS_ITS | Encounter Summary ---
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 Procedures pROTIME MIXING TEST - Miscellaneous Test Luis F Lofton MD [address] [place] [phone] Phone: tel: fax: Referral ID Status Reason Start Date Expiration Date V isits Requested Visits Authorized [id number] Canceled 10/18/2023 11/16/2024 1 1 Encounter Details Date Type Department Care Team (Late st Contact Info) Description 10/18/2023 10:30 AM DENIER CONTROL OPERATOR Lab [facility] 4 [facility] [address] [place] [phone] 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, unspecified iron deficiency anemia type (Primary Dx); 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 Social History Tobacco [...] on file Legal Sex Female 8:30 AM DENIER CONTROL OPERATOR Gender Identity Female 10/06/2021 4:28 PM DENIER CONTROL OPERATOR Sexual Orientation Choose not to disclose 2020 4:28 PM DENIER CONTROL OPERATOR documented as of this encounter Plan of Treatment Not on file documented as of this encounter Procedures Procedure Name Priority Date/Time Associated Diagnosis Comments PT MIXING STUDY Routine 10/18/2023 1:00 PM DENIER CONTROL OPERATOR APTT Routine 10/18/2023 1:00 PM DENIER CONTROL OPERATOR 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, 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 iron deficiency anemia 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 PROTIME-INR Routine 10/18/2023 1:00 PM DENIER CONTROL OPERATOR 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, unspecified iron deficiency anemia type MCFP (current) use of anticoagulants FIBRINOGEN Routine 10/18/2023 1:00 PM DENIER CONTROL OPERATOR 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, 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 iron deficiency anemia 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 DIFFERENTIAL AUTO Routine 10/18/2023 10: 35 AM DENIER CONTROL OPERATOR 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, unspecified iron deficiency anemia type CBC WITH AUTO DIFFERENTIAL Routine 10/18/2023 10:35 AM DENIER CONTROL OPERATOR 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, unspecified iron deficiency anemia type documented in this encounter Results * PT mixing study (10/18/2023 1:00 PM DENIER CONTROL OPERATOR) PT 13.5 10.3 - 13.7 sec TIGRE CONN ([place]) Comment:Testing performed by : [facility], 1 [place]., [address] INR 1.18 0.90 - 1.20 TIGRE CONN ([place]) Comment: Interpretive data Oral anticoagulant therapeutic ranges: Venous thromboembolism prophylaxis or treatment: 2.0-3.0 CARDIOLOGY Standard range: 2.0-3.0 High-intensity range: 2.5-3.5 Refer to indication-specific guidelines for appropriate target ranges for prosthetic heart valve replacement. Current interpretive data was last revised on 2019. Testing performed by: [facility], [address] [place]., [address] PT, 50/50 mix See Comment 10.3 - [...] last revised on 2019. Testing performed by: [facility], [address] [place]., [address] INR, 50/50 mix See Comment 0.90 - 1.20 TIGRE CONN ([place]) Comment: Credited,Test Not Indicated. Testing performed by: [facility], [address] [place]., [address] Blood 10/18/2023 1:00 PM DENIER CONTROL OPERATOR 10/18/2023 6:00 PM DENIER CONTROL OPERATOR Luis F Lofton MD LAB BLOOD ORDERABLES Final Re sult Performing Organization Address City/[facility] Co de Phone Number TIGRE CONN ([place]) 1 [facility] [place] [address] * (ABNORMAL) Fibrinogen (10/18/2023 1:00 PM DENIER CONTROL OPERATOR) Fibrinogen 533(H) 170 - 400 mg/dL TIGRE CONN ([place]) Comment:Testing performed by : [place], [address] Blood 10/18/2023 1:00 PM DENIER CONTROL OPERATOR 10/18/2023 2:08 PM DENIER CONTROL OPERATOR Luis F Lofton MD LAB BLOOD ORDERABLES Final Re sult Performing Organization Address [facility] de Phone Number TIGRE CONN ([place]) [address] [place] [address] [place] [address] * Protime-INR (10/18/2023 1:00 PM DENIER CONTROL OPERATOR) PT 13.7 10.3 - 13.7 sec TIGRE CONN ([place]) Comment:Testing performed by : [place], [address] INR 1.20 0.90 - 1.20 TIGRE CONN ([place]) Comment: Interpretive data Oral anticoagulant therapeutic ranges: Venous thromboembolism prophylaxis or treatment: 2.0-3.0 CARDIOLOGY Standard range: 2.0-3.0 High-intensity range: 2.5-3.5 Refer to indication-specific guidelines for appropriate target ranges for prosthetic heart valve replacement. Current interpretive data was last revised on 2019. Testing performed by: [place], [address] Blood 10/18/2023 1:00 PM DENIER CONTROL OPERATOR 10/18/2023 2:08 PM DENIER CONTROL OPERATOR Result [facility] Luis F Lofton MD LAB BLOOD ORDERABLES Final Re sult Performing Organization Address City/[facility]/ZIP Co de Phone Number TIGRE CONN ([place]) 1 [facility] Department [place] [address] * (ABNORMAL) aPTT (10/18/2023 1:00 PM DENIER CONTROL OPERATOR) aPTT 40(H) 28 - 38 sec TIGRE CONN ([place]) Comment: Interpretive Data Heparin therapeutic range: 66.0 - 100.0 seconds. Range based on correlation with therapeutic heparin activity range of 0.3 - 0.7 Units/mL. Current interpretive data was last revised on 2023. Testing performed by: [facility], One [facility], [place], [address] Blood 10/18/2023 1:00 PM DENIER CONTROL OPERATOR 10/18/2023 2:08 PM DENIER CONTROL OPERATOR Luis F Lofton MD LAB BLOOD ORDERABLES Final Re sult Performing Organization Address [facility] Co de Phone Number TIGRE CONN ([place]) 1 [facility] [place] [address] * (ABNORMAL) Differential, auto (10/18/2023 10:35 AM DENIER CONTROL OPERATOR) Neutrophil abs 6.0 1.5 - 6.5 K/cumm [facility] ([place]) Comment:Testing performed by : [facility] [address], Medical Office [facility] [address], [place] [address] Imm gran abs 0.0 0.0 - 0.1 K/cumm [facility] ([place]) Comment:Testing performed by : [facility] [address], Medical Office [facility] [address], [place] [address] Lymphocyte abs 0.5(L) 0.8 - 3.3 K/cumm [facility] ([place]) Comment:Testing performed by : [facility] [address], Medical Office [facility] [address], [place] [address] Monocyte abs 0.3 0.2 - 0.8 K/cumm [facility] ([place]) Comment:Testing performed by : [facility] [address], Medical Office [facility] [address], [place] [address] Eosinophil abs 0.1 0.0 - 0.5 K/cumm [facility] ([place]) Comment:Testing performed by : [facility] [address], Medical Office [facility] [address], [place] [address] Basophil abs 0.0 0.0 - 0.1 K/cumm [facility] ([place]) Comment:Testing performed by : [facility] [address], Medical Office [facility] [address], [place] [address] Neutrophil pct 87.1 % [facility] ([place]) Comment: Interpretive Data Percent cell count reference ranges are not reported, since discordance with absolute values may lead to misinterpretation of CBC data. Current Interpretive Data was last revised on 2022. Testing performed by: [facility] [address], Medical Office [facility] [address], [place] [address] Imm gran pct 0.1 % [facility] ([place]) Comment: Interpretive Data Percent cell count reference ranges are not reported, since discordance with absolute values may lead to misinterpretation of CBC data. Current Interpretive Data was last revised on 2022. Testing performed by: [facility] [address], Medical Office [facility] [address], [place] [address] Lymphocyte pct 7.4 % [facility] ([place]) Comment: Interpretive Data Percent cell count reference ranges are not reported, since discordance with absolute values may lead to misinterpretation of CBC data. Current Interpretive Data was last revised on 2022. Testing performed by: [facility] [address], Medical Office [facility] [address], [place] [address] Monocyte pct 3.9 % [facility] ([place]) Comment: Interpretive Data Percent cell count reference ranges are not reported, since discordance with absolute values may lead to misinterpretation of CBC data. Current Interpretive Data was last revised on 2022. Testing performed by: [facility] [address], Medical Office [facility] [address], [place] [address] Eosinophil pct 1.2 % [facility] ([place]) Comment: Interpretive Data Percent cell count reference ranges are not reported, since discordance with absolute values may lead to misinterpretation of CBC data. Current Interpretive Data was last revised on 2022. Testing performed by: [facility] [address], Medical Office [facility] [address], [place] [address] Basophil pct 0.3 % TIGRE CONN ([place]) Comment: Interpretive Data Percent cell count reference ranges are not reported, since discordance with absolute values may lead to misinterpretation of CBC data. Current Interpretive Data was last revised on 2022. Testing performed by: [facility] [address], Medical Office [facility] [address], [place] [address] Blood 10/18/2023 10:3 5 AM DENIER CONTROL OPERATOR 10/18/2023 10:36 AM DENIER CONTROL OPERATOR us Luis F Lofton MD LAB BLOOD ORDERABLES Final Re sult TIGRE CONN ([place]) 1 [facility] [place] [address] * (ABNORMAL) CBC with auto differential (10/18/2023 10:35 AM DENIER CONTROL OPERATOR) WBC 6.9 3.8 - 9.9 K/cumm TIGRE CONN ([place]) Comment:Testing performed by : [facility] [address], Medical Office [facility] [address], [place] [address] Hgb 7.3(L) 11.9 - 15.5 g/dL [facility] ([place]) Comment:Testing performed by : [facility] [address], Medical Office [facility] [address], [place] [address] Hct 26.3(L) 35.6 - 45.5 % [facility] ([place]) Comment:Testing performed by : [facility] [address], Medical Office [facility] [address], [place] [address] Plt 507(H) 150 - 400 K/cumm [facility] ([place]) Comment:Testing performed by : [facility] [address], Medical Office [facility] [address], [place] [address] MPV 8.5(L) 9.1 - 12.3 fL [facility] ([place]) Comment:Testing performed by : [facility] [address], Medical Office [facility] [address], [place] [address] RBC 3.97 3.90 - 5.20 M/cumm [facility] ([place]) Comment:Testing performed by : [facility] [address], Medical Office [facility] [address], [place] [address] MCV 66.2(L) 81.3 - 96.4 fL [facility] ([place]) Comment:Testing performed by : [facility] [address], Medical Office [facility] [address], [place] [address] MCH 18.4(L) 27.1 - 33.3 pg [facility] ([place]) Comment:Testing performed by : [facility] [address], Medical Office [facility] [address], [place] [address] MCHC 27.8(L) 32.3 - 35.7 g/dL [facility] ([place]) Comment:Testing performed by : [facility] [address], Medical Office [facility] [address], [place] [address] RDW CV 19.4(H) 11.1 - 14.9 % [facility] ([place]) Comment:Testing performed by : [facility] [address], Medical Office [facility] [address], [place] [address] RDW SD 46.5 35.7 - 48.1 fL [facility] ([place]) Comment:Testing performed by : [facility] [address], Medical Office [facility] [address], [place] [address] NRBC abs Not Measured 0.00 - 0.01 K/cumm [facility] ([place]) Comment:Testing performed by : [facility] [address], Medical Office [facility] [address], [place] [address] Blood 10/18/2023 10:3 5 AM DENIER CONTROL OPERATOR 10/18/2023 10:36 AM DENIER CONTROL OPERATOR us Luis F Lofton MD LAB BLOOD ORDERABLES Final Re sult [facility] ([place]) 1 [facility] [place] [address] documented in this encounter Visit Diagnoses Diagnosis 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, unspecified iron deficiency anemia type- Primary MCFP (current) use of anticoagulants Long-term (current) use of anticoagulants documented in this encounter Care Teams Polarity Tester Relationship Specialty Start Date End Date Gideon Campbell MD 2 [facility] [address] [address] PCP - General Family Medicine 07/19/23 documented as of this encounter
--- OUTSIDE RECORDS SUMMARY | 2024-10-22 06:29 | XMS_ITS | Encounter Summary ---
Author Organization [facility] Address [address] [place] [address] Phone Care Team Providers Care Corrugated Sheet Material Sheeter Name Role Phone Gideon Campbell MD Primary Care Provider [phone] Encounter Details Date Type Department Care Team (Late st Contact Info) Description 10/28/2023 Orders Only [facility] Oncology [address] [place] [address] Medical [facility] [address] [address] Luis F Loftno MD [address] [place] [phone] Social History Tobacco Use Types Packs/Day Years [...] on file Legal Sex Female 8:30 AM PATIENT SERVICE SPECIALIST Gender Identity Female 10/06/2021 4:28 PM PATIENT SERVICE SPECIALIST Sexual Orientation Choose not to disclose 2020 4:28 PM PATIENT SERVICE SPECIALIST documented as of this encounter Plan of Treatment Not on file documented as of this encounter Visit Diagnoses Not on filedocumented in this encounter Care Teams Corrugated Sheet Material Sheeter Relationship Specialty Start Date End Date Gideon Campbell MD 2 [facility] [address] [address] PCP - General Family Medicine 07/19/23 documented as of this encounter
--- OUTSIDE RECORDS SUMMARY | 2024-10-22 06:29 | XMS_ITS | Encounter Summary ---
Author Organization [facility] Address [address] [place] [address] Phone Care Team Providers Care Administrative Support Clerk Name Role Phone Gideon Campbell MD Primary Care Provider [phone] Encounter Details Date Type Department Care Team (Late st Contact Info) Description 10/25/2023 Telephone [facility] Oncology [address] [place] [phone] Deborah Armstrong, JACOB Social History Tobacco [...] file Legal Sex Female 8:30 AM STAFF THERAPIST Gender Identity Female 10/06/2021 4:28 PM STAFF THERAPIST Sexual Orientation Choose not to disclose 2020 4:28 PM STAFF THERAPIST documented as of this encounter Miscellaneous Notes * Telephone Encounter - Deborah Armstrong CLT - 10/25/2023 1:08 PM STAFF THERAPIST Patient's daughter Nel Sheikh called regarding lab results. Nel's number is [phone]. Carmela will return her call. F THERAPIST documented in this encounter Plan of Treatment Not on file documented as of this encounter Visit Diagnoses Not on filedocumented in this encounter Care Teams Administrative Support Clerk Relationship Specialty Start Date End Date Gideon Campbell MD [address] [facility] [address] [place] [id number] PCP - General Family Medicine 07/19/23 documented as of this encounter
--- OUTSIDE RECORDS SUMMARY | 2024-10-22 06:29 | XMS_ITS | Encounter Summary ---
Author Organization [facility] Address [address] [place] [address] Phone Care Team Providers Care All Around Presser Name Role Phone Gideon Campbell MD Primary Care Provider [phone] Reason for Visit * Reason Comments Follow-up [facility] use (curre nt) of anticoagulant * Diagnostic Lab (Routine) - Canceled Specialty Diagnoses / Procedures Referred By Contac t Referred To Contact Lab Diagnoses 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, unspecified iron deficiency anemia type PAD (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) ([facility]) Procedures ESR - Miscellaneous Test ESR - Miscellaneous Test Luis F Lofton MD [address] [place] [address] [place] [address] Phone: tel: fax: Referral ID Status Reason Start Date Expiration Date V isits Requested Visits Authorized [id number] Canceled 10/28/2023 11/26/2024 1 1 Encounter Details Date Type Department Care Team (Late st Contact Info) Description 12/13/2023 10:15 AM COMMERCIAL AIRPLANE PILOT Office Visit [facility] [address] [place] [address] [place] [phone] Luis F Lofton MD [address] [place] [address] [address] [place], [place] [id number] 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, unspecified iron deficiency anemia type; [facility] (current) use of anticoagulants; PAD (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) ([facility]) Social History Tobacco Use Types Packs/Day Years [...] on file Legal Sex Female 8:30 AM COMMERCIAL AIRPLANE PILOT Gender Identity Female 10/06/2021 4:28 PM COMMERCIAL AIRPLANE PILOT Sexual Orientation Choose not to disclose 2020 4:28 PM COMMERCIAL AIRPLANE PILOT documented as of this encounter Last Filed Vital Signs Vital Sign Reading Time Taken Comments Blood Pressure 144/76 12/13/2023 10:47 AM [employer] AIRPLANE P[employer]OT Pulse 77 12/13/2023 10:47 AM [employer] AIR[employer]ANE P[employer] Temperature 36.3 ??C (97.3 ??F) 12/13/2023 10:[address] Respiratory Rate 20 12/13/2023 10:47 AM COMM[employer]CIAL AIRPLANE PILOT Oxygen Saturation 99% 12/13/2023 10:47 AM COMMERCIAL AIRPLANE PILOT Inhaled Oxygen Concentration - - Weight 54.4 kg (120 lb) 12/13/2023 10:47 AM [employer]CIAL AIRPLANE PILOT Height 161.3 cm (5' 3.5 ) 12/13/2023 10:47 AM CS T Body Mass Index 20.92 12/13/2023 10:47 AM [employer] AIRPLANE PILOT documented in this encounter Ordered Prescriptions Prescription Sig Dispense Quantity Refills Last Filled Start Date End Date ferrous sulfate 325 mg (65 mg of elemental iron) tabletIndications: Iron Deficiency Anemia Take 1 tablet (65 mg of elemental iron total) by mouth daily with breakfast 90 tablet 2 12/13/2023 documented in this encounter Progress Notes * Mia Barger, RESIDENTIAL CARPENTER - 12/13/2023 10:15 AM CST Images from [...] Recent labs, radiology and pathology reviewed in [facility] ASSESSMENT: CARLOS likely from GI with [...] physician. PENELOPE Arriaga Nurse Practitioner Medical Oncology [facility] [employer] AIRPLANE PILOT documented in this encounter Miscellaneous Notes * [...] - 9.9 K/cumm Comment:Testing performed by : [facility] [address], Medical Office [facility] [address], [place] [address] Hgb 7.5(L) 11.9 - 15.5 g/dL [facility] ([place]) Comment:Testing performed by : [facility] [address], Medical Office [facility] [address], [place] [address] Hct 26.2(L) 35.6 - 45.5 % [facility] ([place]) Comment:Testing performed by : [facility] [address], Medical Office [facility] [address], [place] [address] Plt 468(H) 150 - 400 K/cumm [facility] ([place]) Comment:Testing performed by : [facility] [address], Medical Office [facility] [address], [place] [address] MPV 8.7(L) 9.1 - 12.3 fL [facility] ([place]) Comment:Testing performed by : [facility] [address], Medical Office [facility] [address], [place] [address] RBC 3.64(L) 3.90 - 5.20 M/cumm [facility] ([place]) Comment:Testing performed by : [facility] [address], Medical Office [facility] [address], [place] [address] MCV 72.0(L) 81.3 - 96.4 fL [facility] ([place]) Comment:Testing performed by : [facility] [address], Medical Office [facility] [address], [place] [address] MCH 20.6(L) 27.1 - 33.3 pg [facility] ([place]) Comment:Testing performed by : [facility] [address], Medical Office [address], [place] [address] MCHC 28.6(L) 32.3 - 35.7 g/dL [facility] ([place]) Comment:Testing performed by : [facility] [address], Medical Office [facility] [address], [place] [address] RDW CV 21.4(H) 11.1 - 14.9 % [facility] ([place]) Comment:Testing performed by : [facility] [address], Medical Office [facility] [address], [place] [address] RDW SD 56.4(H) 35.7 - 48.1 fL [facility] ([place]) Comment:Testing performed by : [facility] [address], Medical Office [facility] [address], [place] [address] NRBC abs Not Measured 0.00 - 0.01 K/cumm [facility] ([place]) Comment:Testing performed by : [facility] [address], Medical Office [facility] [address], [place] [address] Blood 01/31/2024 9:20 AM CDT 01/31/2024 9:41 AM CDT us Mia Barger RESIDENTIAL CARPENTER LAB BLOOD ORDERABLES Final Result [facility] ([place]) 1 [facility] Department [place] [address] * (ABNORMAL) Protime-INR (12/13/2023 11:30 AM COMMERCIAL AIRPLANE PILOT) PT 14.2(H) 10.3 - 13.7 sec [facility] ([place]) Comment:Testing performed by : [facility], [place], [address] INR 1.25(H) 0.90 - 1.20 [facility] ([place]) Comment: Interpretive data Oral anticoagulant therapeutic ranges: Venous thromboembolism prophylaxis or treatment: 2.0-3.0 CARDIOLOGY Standard range: 2.0-3.0 High-intensity range: 2.5-3.5 Refer to indication-specific guidelines for appropriate target ranges for prosthetic heart valve replacement. Current interpretive data was last revised on 2019. 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
--- OUTSIDE RECORDS SUMMARY | 2024-10-22 06:29 | XMS_ITS | Encounter Summary ---
Author Organization [facility] Healthcare Address [address] [place] [address] Care Team Providers Care Aluminum Pourer Name Role Phone Gideon Campbell MD Primary Care Provider [phone] Reason for Visit * Reason Comments OP Infusion * Episode Based Medications (Routine) - Closed Specialty Diagnoses / Procedures Referred By Contac t Referred To Contact Diagnoses 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 secondary to inadequate dietary iron intake Anemia, unspecified type Microcytic anemia Luis F Lofton MD [address] [place] [address] Phone: tel: fax: [address] [address] Phone: tel: Referral ID Status Reason Start Date Expiration Date Visits Re quested Visits Authorized [id number] Closed 12/23/2023 12/22/2024 3 3 Encounter Details Date Type Department Care Team (Late st Contact Info) Description 01/04/2024 2:00 PM CDT Infusion [address] [phone] 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 secondary to inadequate dietary [...] file Legal Sex Female 8:30 AM BUSINESS OFFICE REPRESENTATIVE Gender Identity Female 10/06/2021 4:28 PM BUSINESS OFFICE REPRESENTATIVE Sexual Orientation Choose not to disclose 2020 4:28 PM BUSINESS OFFICE REPRESENTATIVE documented as of this encounter Last Filed [...] 01/04/2024 documented in this encounter Care Teams Aluminum Pourer Relationship Specialty Start Date End Date Gideon Campbell MD 2 [facility] [address] [address] PCP - General Family Medicine 07/19/23 documented as of this encounter
--- OUTSIDE RECORDS SUMMARY | 2024-10-22 06:29 | XMS_ITS | Encounter Summary ---
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
--- OUTSIDE RECORDS SUMMARY | 2024-10-22 06:29 | XMS_ITS | Encounter Summary ---
Author Organization [facility] Address [address] [place] [address] Phone Care Team Providers Care Fisher Hand Line Name Role Phone Gideon Campbell MD Primary Care Provider [phone] Encounter Details Date Type Department Care Team (Late st Contact Info) Description 10/28/[address] [facility] Oncology [address] [place] [address] Carmela Puri RN Social History Tobacco [...] file Legal Sex Female 8:30 AM PEDIATRIC NEUROLOGIST Gender Identity Female 10/06/2021 4:28 PM PEDIATRIC NEUROLOGIST Sexual Orientation Choose not to disclose 2020 4:28 PM PEDIATRIC NEUROLOGIST documented as of this encounter Nursing Notes [...] for appointments and labs placed in chart./res ATRIC NEUROLOGIST documented in this encounter Plan of Treatment Not on file documented as of this encounter Visit Diagnoses Not on filedocumented in this encounter Care Teams Fisher Hand Line Relationship Specialty Start Date End Date Gideon Campbell MD [address] [place] [address] [address] PCP - General Family Medicine 07/19/23 documented as of this encounter
--- OUTSIDE RECORDS SUMMARY | 2024-10-22 06:29 | XMS_ITS | Encounter Summary ---
Author Organization [facility] Medical Group Address [address] [place] [address] Care Team Providers Care Mortgage Loan Specialist Name Role Phone Denis Platt MD Primary Care Provide r Encounter Details Date Type Department Care Team (Late st Contact Info) Description 06/18/2023 Telephone [facility] Medical Group Orthopedics and Sports Medicine [address] [facility] [address] [place] [address] Herber Knott MD [address] [place] [address] [address] [place] [address] Social History Tobacco Use Types Packs/Day Years Used Date Smoking Tobacco: Former Cigarettes Q uit: 09/28/1978 Smokeless Tobacco: Never Alcohol Use Standard Drinks/Week Comments Yes 0 (1 standard drink = 0.6 oz pur e alcohol) Comments Unknown Sex and Gender Information Value Date Recorded Sex Assigned at Not on file Legal Sex Female 8:30 AM ABRASIVE WHEEL MOLDER Gender Identity Female 10/06/2021 4:28 PM ABRASIVE WHEEL MOLDER Sexual Orientation Choose not to disclose 2020 4:28 PM ABRASIVE WHEEL MOLDER documented as of this encounter Miscellaneous [...] the [facility] to [facility] if they are acceptingnew patients. [...] care. Pt was instructed about PCPs in [facility]. Pt also informed she could try [facility] or calling her insurance for recommendations. * [...] on filedocumented in this encounter Care Teams Mortgage Loan Specialist Relationship Specialty Start Date End Date Denis Platt MD [address] [place] [address] PCP - General Family Medicine 01/14/22 07/18/23 documented as of this encounter
--- OUTSIDE RECORDS SUMMARY | 2024-10-22 06:29 | XMS_ITS | Encounter Summary ---
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 [address] [place] [address] Discharge Disposition: Discharge to home or self care Social History Tobacco Use Types Packs/Day Years Used Date Smoking Tobacco: Former Cigarettes Q uit: 09/28/1978 Smokeless Tobacco: Never Alcohol Use Standard Drinks/Week Comments Yes 0 (1 standard drink = 0.6 oz pur e alcohol) Comments Unknown Sex and Gender Information Value Date Recorded Sex Assigned at Not on file Legal Sex Female 8:30 AM QUALITY CONTROL INSPECTOR Gender Identity Female 10/06/2021 4:28 PM QUALITY CONTROL INSPECTOR Sexual Orientation Choose not to disclose 2020 4:28 PM QUALITY CONTROL INSPECTOR documented as of this encounter Medications at [...] position with advanced right hip osteoarthritis with [id number] contact, osteophyte formation, subluxation. us Herber Knott MD IMG XR PROCEDURES Final Result documented in this encounter Visit Diagnoses Not on filedocumented in this encounter Care Teams Command Center Officer Relationship Specialty Start Date End Date Denis Platt MD [address] [place] [address] PCP - General Family Medicine 01/14/22 07/18/23 documented as of this encounter
--- OUTSIDE RECORDS SUMMARY | 2024-10-22 06:29 | XMS_ITS | Encounter Summary ---
Author Organization [facility] Address [address] [place] [address] Phone Care Team Providers Care Glassblower Name Role Phone Gideon Campbell MD Primary Care Provider [phone] Encounter Details Date Type Department Care Team (Late st Contact Info) Description 12/23/2023 Telephone [facility] Oncology [address] [place] [address] [address] Luis F Lofton MD [address] [place] [address] Social History Tobacco Use Types Packs/Day Years [...] on file Legal Sex Female 8:30 AM STAGE MANAGER Gender Identity Female 10/06/2021 4:28 PM STAGE MANAGER Sexual Orientation Choose not to disclose 2020 4:28 PM STAGE MANAGER documented as of this encounter Miscellaneous [...] it, can you please call her at [phone] documented in this encounter Plan of Treatment Not on file documented as of this encounter Visit Diagnoses Not on filedocumented in this encounter Care Teams Glassblower Relationship Specialty Start Date End Date Gideon Campbell MD [address] [facility] [place] [address] PCP - General Family Medicine 07/19/23 documented as of this encounter
--- OUTSIDE RECORDS SUMMARY | 2024-10-22 06:29 | XMS_ITS | Encounter Summary ---
Author Organization [facility] Address [address] [place] [address] Care Team Providers Care Manager Ccu Name Role Phone Denis Platt MD Primary Care Provide r Reason for Referral * Cardiology (Routine) - Closed Specialty Diagnoses / Procedures Referred By Lyndsey t Referred To Contact Diagnoses Pre-operative exam Procedures ECG 12 lead Herber Knott MD [address] [place] [address] [address], [place] [address] Phone: tel: [facility] [address] [place] [address] Referral ID Status Reason Start Date Expiration Date Visits Re quested Visits Authorized [id number] Closed 04/22/2023 06/16/2023 1 1 Encounter Details Date Type Department Care Team (Late st Contact Info) Description 04/22/2023 Orders Only [facility] Medical [facility] Orthopedics and Sports Medicine [address] [facility] [address], [place] [address] Herber Knott MD [address] [place] [address] [address] [place] [address] Pre-operative exam (Primary Dx) Social History Tobacco Use Types Packs/Day Years Used Date Smoking Tobacco: Former Cigarettes Q uit: 09/28/1978 Smokeless Tobacco: Never Alcohol Use Standard Drinks/Week Comments Yes 0 (1 standard drink = 0.6 oz pur e alcohol) Comments Unknown Sex and Gender Information Value Date Recorded Sex Assigned at Not on file Legal Sex Female 8:30 AM RESOURCE CONSERVATION MANAGER Gender Identity Female 10/06/2021 4:28 PM RESOURCE CONSERVATION MANAGER Sexual Orientation Choose not to disclose 2020 4:28 PM RESOURCE CONSERVATION MANAGER documented as of this encounter Miscellaneous [...] tendency for uric acid stone formation. Source: ACTV8. Last revised 10-21-2017 Herber Knott MD LAB MICROBIOLOGY - GENER AL ORDERABLES Final Result Performing Organization Address [facility] Co de Phone Number [facility] ([place]) [address] [facility] [place] [address] * ECG 12 lead (06/16/2023 10:25 AM CDT) 06/16/2023 11:0 0 AM CDT Narrative [facility] - 06/16/2023 11:36 AM CDT Vent Rate: 70 bpm RR Interval: [address] Interval: 139 msec QRS Duration: 132 msec QT Interval: 393 msec QTC Interval: 414 msec P-R-T [place]: 76 - -60 - 38 degrees SINUS [...] R esult - Final Performing Organization Address [facility] de Phone Number [facility] [employer] [facility] * (ABNORMAL) CBC with auto differential (06/16/2023 [...] ([place]) MCHC 28.7(L) 32.3 - 35.7 g/dL [facility] RDW CV 18.2(H) 11.1 - 14.9 % [facility] ([place]) RDW SD 46.0 35.7 - 48.1 fL [facility] NRBC abs 0.00 0.00 - 0.01 K/cumm [facility] Blood 06/16/2023 10:0 5 AM CDT 06/16/2023 11:05 AM CDT us Herber Knott MD LAB BLOOD ORDERABLES Fin al Result [facility] ([place]) [address] [facility] [place] [address] * (ABNORMAL) Comprehensive metabolic panel (06/16/2023 10:05 AM CDT) Sodium 137 135 - 145 mmol/L [facility] ([place] Potassium, pl 4.0 3.3 - 4.9 mmol/L [facility] Chloride 99 97 - 110 mmol/L [facility] CO2 25 22 - 32 mmol/L [facility]) Anion gap 14 2 - 15 mmol/L [facility] ([place] BUN 14 6 - 25 mg/dL [facility] Creatinine 0.76 0.60 - 1.10 mg/dL [facility] ([place]) Glucose 104 70 - 199 mg/dL [facility] ([place] Comment: Interpretive Data Fasting [...] 2022. Calcium 9.2 8.5 - 10.3 mg/dL [facility] Bilirubin, total 0.5 0.1 [...] LAB BLOOD ORDERABLES Fin al Result [facility] [address] [facility] [place] [address] * Hemoglobin A1c (06/16/2023 10:05 AM CDT) Hgb A1C 5.2 4.0 - 5.6 % [facility] ([place]) Estimated Average Glucose 103 mg/dL [facility] ([place]) Comment: The ADA recommends reporting an estimated Average Glucose (eAG) with all Hemoglobin A1c results using the equation derived from a study of 507 normal and diabetic adults. ??Minority populations were underrepresented and children were not included. ?? (Diabetes Care 31:2707-3632, 2008). ??The eAG is not equivalent to a fasting glucose. Blood 06/16/2023 10:0 5 AM CDT 06/16/2023 11:05 AM CDT us Herber Knott MD LAB BLOOD ORDERABLES Fin al Result [facility] [place]) [address] [facility] [place] [address] * XR Chest Pa Lateral 2 Views [...] PM T: ??06/17/2023 5:08 PM Report ID: [id number] Reading Location: ??[id number] Procedure Note Kali Georges MD - 06/17/2023 [...] by Kali Georges M.D., JR: Report ID: [id number] Reading Location: [id number] Herber Knott MD IMG XR PROCEDURES Final Result documented in this encounter Visit Diagnoses Diagnosis Pre-operative exam- Primary Unspecified pre-operative examination Pre-operative exam Unspecified pre-operative examination Pre-operative exam Unspecified pre-operative examination Pre-operative exam Unspecified pre-operative examination documented in this encounter Care Teams Manager Ccu Relationship Specialty Start Date End Date Denis Platt MD [address] [place] [address] PCP - General Family Medicine 01/14/22 07/18/23 documented as of this encounter
--- OUTSIDE RECORDS SUMMARY | 2024-10-22 06:29 | XMS_ITS | Encounter Summary ---
Author Organization [facility] Healthcare Address [address] [place] [address] Care Team Providers Care Automobile Carpets Molder Name Role Phone Denis Platt MD Primary Care Provide r Encounter Details Date Type Department Care Team (Late st Contact Info) Description 07/08/2023 1:25 PM CDT Lab [address] [address] Microcytic anemia; 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 goal <100 Social [...] on file Legal Sex Female 8:30 AM CASTING MACHINE OPERATOR AUTOMATIC Gender Identity Female 10/06/2021 4:28 PM CASTING MACHINE OPERATOR AUTOMATIC Sexual Orientation Choose not to disclose 2020 4:28 PM CASTING MACHINE OPERATOR AUTOMATIC documented as of this encounter Plan of [...] t [facility] ([place]) 1 [facility] Department [place] [address] * Lipid panel (07/08/2023 1:30 PM CDT) [...] t [facility] ([place]) 1 [facility] Department of Laboratories [place], [place] [id number] * (ABNORMAL) Iron profile w/ IBC (07/08/2023 1:30 PM CDT) Iron 11(L) 35 - 145 mcg/dL [facility] ([place]) TIBC 161(L) 250 - 400 mcg/dL [facility] ([place]) Transferrin saturation 7(L) 20 - 50 % [facility] ([place]) Blood 07/08/2023 1:30 PM CDT 07/08/2023 2:09 PM CDT us Gideon Campbell MD LAB BLOOD ORDERABLES Final Resul t Performing Organization Address City/[facility]/ZIP Co de Phone Number [facility] ([place]) 1 [facility] [employer] [place] [address] * (ABNORMAL) CBC with auto differential (07/08/2023 [...] t [facility] ([place]) 1 [facility] Department [place] [place] [address] documented in this encounter Visit Diagnoses Diagnosis Microcytic anemia Unspecified iron deficiency anemia 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 goal <100 Other and unspecified hyperlipidemia documented in this encounter Care Teams Automobile Carpets Molder Relationship Specialty Start Date End Date Denis Platt MD [address] [place] [address] PCP - General Family Medicine 01/14/22 07/18/23 documented as of this encounter
--- OUTSIDE RECORDS SUMMARY | 2024-10-22 06:29 | XMS_ITS | Encounter Summary ---
Author Organization [facility] Healthcare Address [address] [place] [address] Care Team Providers Care Consumer Insights Intern Name Role Phone Gideon Campbell MD Primary Care Provider [phone] Reason for Visit * Reason Comments Anemia Follow-up Pt states she is hav ing a lot of pain in her joints. B shoulders and knees hurt. Encounter Details Date Type Department Care Team (Late st Contact Info) Description 07/29/2023 12:30 PM CDT Office Visit [facility] Medical [facility] Primary Care at [address] [place] [address] Gideon Campbell MD [address] [place] [address] Medicare annual wellness visit, subsequent (Primary [...] on file Legal Sex Female 8:30 AM BOX STAPLER Gender Identity Female 10/06/2021 4:28 PM BOX STAPLER Sexual Orientation Choose not to disclose 2020 4:28 PM BOX STAPLER documented as of this encounter Last Filed [...] Problem List Diagnosis Atrial fibrillation (CMS/HCC) [I48.91] 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 goal <100 PAD (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) ([facility]) Essential hypertension Ventricular ectopy Left carotid bruit [...] (Family Medicine) Primary Pharmacy/DME suppliers: [facility] [place], [place] - [address] [facility] [address] [employer] (MAIL SERVICE) [facility] [place], [place] - [address] [facility] [address] [address] [facility] [address] Medicare Health Risk Assessment Basic Information In general, would you say your health is: Excellent Do you have an advance directive, such as a living will or durable power of attorney law clerk?: (!) No Would you like information regarding Advanced Directive (Living Will) and/or Durable Power of Yard Warehouse Worker?: No Do you have to strain or [...] patientor family, or review of medical records. [facility] Mental Status Mini-Cog Test: The Mini-Cog [...] weight documented in this encounter Care Teams Consumer Insights Intern Relationship Specialty Start Date End Date Gideon Campbell MD 2 [facility] [address] [address] PCP - General Family Medicine 07/19/23 documented as of this encounter
--- OUTSIDE RECORDS SUMMARY | 2024-10-22 06:29 | XMS_ITS | Encounter Summary ---
Author Organization [facility] Healthcare Address [address] [place] [address] Care Team Providers Care Visual Educator Name Role Phone Denis Platt MD Primary Care Provide r Encounter Details Date Type Department Care Team (Latest Contact Info) Description 06/16/2023 9:32 AM CDT - 06/16/2023 11:59 PM CDT Hospital Encounter [facility] [address] [place] [address] Pre-operative exam Discharge Disposition: Discharge to home [...] on file Legal Sex Female 8:30 AM DOVETAILER Gender Identity Female 10/06/2021 4:28 PM DOVETAILER Sexual Orientation Choose not to disclose 2020 4:28 PM DOVETAILER documented as of this encounter Medications at [...] PM T: ??06/17/2023 5:08 PM Report ID: [id number] Reading Location: ??[id number] Procedure Note Kali Georges MD - 06/17/2023 [...] by Kali Georges M.D. JR: Report ID: [id number] Reading Location: [place] [address] Herber Knott MD IMG XR PROCEDURES Final Result documented in this encounter Visit Diagnoses Diagnosis Pre-operative exam Unspecified pre-operative examination documented in this encounter Care Teams Visual Educator Relationship Specialty Start Date End Date Denis Platt MD [address] [place] [address] PCP - General Family Medicine 01/14/22 07/18/23 documented as of this encounter
--- OUTSIDE RECORDS SUMMARY | 2024-10-22 06:29 | XMS_ITS | Encounter Summary ---
Author Organization [facility] Address [address] [place] [address] Phone Care Team Providers Care Catalog Librarian Name Role Phone Gideon Campbell MD Primary Care Provider [phone] Encounter Details Date Type Department Care Team (Late st Contact Info) Description 10/28/2023 Orders Only [facility] Oncology [address] [place] [phone] Carmela Puri RN 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, [...] on file Legal Sex Female 8:30 AM WRECKER DRIVER Gender Identity Female 10/06/2021 4:28 PM WRECKER DRIVER Sexual Orientation Choose not to disclose 2020 4:28 PM WRECKER DRIVER documented as of this encounter Miscellaneous Notes * Addendum Note - Deborah Armstrong CLT - 10/28/2023 4:36 PM CSTAddended by: DEBORAH ARMSTRONG on: 12/13/2023 10:12 AM Modules accepted: Orders KER DRIVER * Addendum Note - Sarita Parnell CLT - 10/28/2023 4:36 PM CSTAddended by: SARITA PARNELL on: 12/13/2023 11:37 AM Modules accepted: Orders KER DRIVER documented in this encounter Plan of Treatment Not on file documented as of this encounter Results * (ABNORMAL) CBC with auto differential (12/13/2023 10:15 AM WRECKER DRIVER) WBC 6.2 3.8 - 9.9 K/cumm [facility] ([place]) Comment:Testing performed by : [facility] [address], Medical Office [facility] [address], [place] [address] Hgb 7.5(L) 11.9 - 15.5 g/dL [facility] ([place]) Comment:Testing performed by : [facility] [address], Medical Office [facility] [address], [place] [address] Hct 26.7(L) 35.6 - 45.5 % [facility] ([place]) Comment:Testing performed by : [facility] [address], Medical Office [facility] [address], [place] [address] Plt 559(H) 150 - 400 K/cumm [facility] ([place]) Comment:Testing performed by : [facility] [address], Medical Office [facility] [address], [place] [address] MPV 8.1(L) 9.1 - 12.3 fL [facility] ([place]) Comment:Testing performed by : [facility] [address], Medical Office [facility] [address], [place] [address] RBC 3.98 3.90 - 5.20 M/cumm [facility] ([place]) Comment:Testing performed by : [facility] [address], Medical Office [facility] B [facility] [address], [place] [address] MCV 67.1(L) 81.3 - 96.4 fL [facility] ([place]) Comment:Testing performed by : [facility] [address], Medical Office [facility] [address], [place] [address] MCH 18.8(L) 27.1 - 33.3 pg [facility] ([place]) Comment:Testing performed by : [facility] [address], Medical Office [facility] [address], [place] [address] MCHC 28.1(L) 32.3 - 35.7 g/dL [facility] ([place]) Comment:Testing performed by : [facility] [address], Medical Office [facility] [address], [place] [address] RDW CV 19.2(H) 11.1 - 14.9 % [facility] ([place]) Comment:Testing performed by : [facility] [address], Medical Office [facility] B [facility] [address], [place] [address] RDW SD 47.1 35.7 - 48.1 fL [facility] ([place]) Comment:Testing performed by : [facility] [address], Medical Office [facility] [address], [place] [address] NRBC abs Not Measured 0.00 - 0.01 K/cumm [facility] ([place]) Comment:Testing performed by : [facility] [address], Medical Office [facility] [address], [place] [address] Blood 12/13/2023 10:1 5 AM WRECKER DRIVER 12/13/2023 10:20 AM WRECKER DRIVER us Luis F Lofton MD LAB BLOOD ORDERABLES Final Re sult [facility] ([place]) 1 [facility] [place] [address] * (ABNORMAL) Iron profile w/ IBC (12/13/2023 10:15 AM WRECKER DRIVER) Iron 14(L) 35 - 145 mcg/dL [facility] ([place]) Comment:Testing performed by : [facility], [place], [address] TIBC 172(L) 250 - 400 mcg/dL [facility] ([place]) Comment:Testing performed by : [facility], [place], [address] Transferrin saturation 8(L) 20 - 50 % [facility] ([place]) Comment:Testing performed by : [facility], [place], [address] Blood 12/13/2023 10:1 5 AM WRECKER DRIVER 12/13/2023 10:32 AM WRECKER DRIVER Luis F Lofton MD LAB BLOOD ORDERABLES Final Re sult [facility] ([place]) [address] [place] [address] Department [place] [address] * (ABNORMAL) Ferritin (12/13/2023 10:15 AM WRECKER DRIVER) Ferritin 216(H) 15 - 150 ng/mL [facility] ([place]) Comment:Testing performed by : [facility], [place], [address] Blood 12/13/2023 10:1 5 AM WRECKER DRIVER 12/13/2023 10:32 AM WRECKER DRIVER Luis F Lofton MD LAB BLOOD ORDERABLES Final Re sult [facility] ([place]) [address] [place] [address] Department [place] [address] * (ABNORMAL) Reticulocyte Count (12/13/2023 10:15 AM WRECKER DRIVER) Retics, absolute 0.038 0.020 - 0.087 M/cumm [facility] ([place]) Comment:Testing performed by : [facility], [place], [address] Retics 1.0 0.4 - 2.9 % [facility] ([place]) Comment:Testing performed by : [facility], [place], [address] Reticulocyte Hgb 17.7(L) 30.5 - 38.0 pg [facility] ([place]) Comment:Testing performed by : [facility], [place], [address] Blood 12/13/2023 10:1 5 AM WRECKER DRIVER 12/13/2023 10:32 AM WRECKER DRIVER us Luis F Lofton MD LAB BLOOD ORDERABLES Final Re sult [facility] ([place]) 1 [facility] Department [place] [address] documented in this encounter Visit Diagnoses Diagnosis 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, unspecified iron deficiency anemia type- Primary PAD (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) (HCC) Unspecified peripheral vascular disease documented in this encounter Orders Appointment Requests Count Last Ordered Date Fi rst Ordered Date ONCBCN LAB APPOINTMENT 1 12/13/2023 documented in this encounter Care Teams Catalog Librarian Relationship Specialty Start Date End Date Gideon Campbell MD 2 [facility] [address] [place] [address] PCP - General Family Medicine 07/19/23 documented as of this encounter
--- OUTSIDE RECORDS SUMMARY | 2024-10-22 06:29 | XMS_ITS | Encounter Summary ---
Author Organization [facility] Healthcare Address [address] [place] [address] Care Team Providers Care Machine Quilt Stuffer Name Role Phone Denis Platt MD Primary Care Provide r Encounter Details Date Type Department Care Team (Late st Contact Info) Description 06/16/2023 Orders Only [facility] Cardiology [address] [place] [address] Stormy Bell Social History Tobacco Use Types Packs/Day Years Used Date Smoking Tobacco: Former Cigarettes Q uit: 09/28/1978 Smokeless Tobacco: Never Alcohol Use Standard Drinks/Week Comments Yes 0 (1 standard drink = 0.6 oz pur e alcohol) Comments Unknown Sex and Gender Information Value Date Recorded Sex Assigned at Not on file Legal Sex Female 8:30 AM LAUNDRY PRICING CLERK Gender Identity Female 10/06/2021 4:28 PM LAUNDRY PRICING CLERK Sexual Orientation Choose not to disclose 2020 4:28 PM LAUNDRY PRICING CLERK documented as of this encounter Plan of Treatment Not on file documented as of this encounter Visit Diagnoses Not on filedocumented in this encounter Care Teams Machine Quilt Stuffer Relationship Specialty Start Date End Date Denis Platt MD [address] [place] [address] PCP - General Family Medicine 01/14/22 07/18/23 documented as of this encounter
--- OUTSIDE RECORDS SUMMARY | 2024-10-22 06:29 | XMS_ITS | Encounter Summary ---
Author Organization [facility] Address [address] [place] [address] Phone Care Team Providers Care Bezel Cutter Name Role Phone Gideon Campbell MD Primary Care Provider [phone] Reason for Referral * Consultation (Routine) - Closed Specialty Diagnoses / Procedures Referred By Contac t Referred To Contact Oncology Diagnoses 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, unspecified iron deficiency anemia type Gideon Campbell MD [address] [place] [address] [address] [place] [address] Phone: tel: fax: [facility] Oncology [address] [place] [address] [facility] [address] [place] [address] Phone: tel: fax: Referral ID Status Reason Start Date Expiration Date V isits Requested Visits Authorized [id number] Closed Specialty Services Required 09/15/2023 10/10/2024 99 99 Question Answer Please select the performing region: [facility] (All Locations) [167] Please select the performing department: [facility] IM ONC [facility] [id number] [[id number]] Is this referral for Breast Health Multi-Disciplinary Clinic? No Does the patient have a diagnosis of a Head and Neck cancer? No # of visits: 1 CURER Encounter Details Date Type Department Care Team (Late st Contact Info) Description 09/15/2023 Orders Only [facility] Oncology 4 [facility] Office Bldg Delio Erickson [address] [place] [phone] Yamileth Santiago, CLT 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, unspecified [...] on file Legal Sex Female 8:30 AM HEAT CURER Gender Identity Female 10/06/2021 4:28 PM HEAT CURER Sexual Orientation Choose not to disclose 2020 4:28 PM HEAT CURER documented as of this encounter Plan of Treatment Scheduled Referrals Name Type Priority Associated Diagnoses Orde r Schedule Ambulatory referral to Oncology Outpatient Referral Routine 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, unspecified iron deficiency anemia type Expected: 09/29/2023 (Approximate), Expires: 09/15/2024 documented as of this encounter Visit Diagnoses Diagnosis 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, unspecified iron deficiency anemia type- Primary documented in this encounter Care Teams Bezel Cutter Relationship Specialty Start Date End Date Gideon Campbell MD [address] [facility] [address] [place] [address] PCP - General Family Medicine 07/19/23 documented as of this encounter
--- OUTSIDE RECORDS SUMMARY | 2024-10-22 06:30 | XMS_ITS | Encounter Summary ---
Author Organization [facility] Address [address] [place] [address] Care Team Providers Care Shop Tailor Apprentice Name Role Phone Denis Platt MD Primary Care Provide r Reason for Visit * Diagnostic Imaging (Routine) - Closed Specialty Diagnoses / Procedures Referred By Lyndsey farmer Referred To Contact Diagnoses Primary osteoarthritis of right knee Procedures XR Hip Right 2 or 3 Views Ann Marie Puri PA Phone: tel: fax: [facility] Referral ID Status Reason Start Date Expiration Date Visits Re quested Visits Authorized [id number] Closed 04/02/2023 04/02/2023 1 1 Encounter Details Date Type Department Care Team (Latest Contact Info) Description 04/02/2023 3:51 PM CDT - 04/02/2023 11:59 PM CDT Hospital Encounter [facility] Orthopedics and Sports Medicine [address] [place] [address] [address], [place] [phone] Discharge Disposition: Discharge to home or self care Social History Tobacco Use Types Packs/Day Years Used Date Smoking Tobacco: Former Cigarettes Q uit: 09/28/1978 Smokeless Tobacco: Never Alcohol Use Standard Drinks/Week Comments Yes 0 (1 standard drink = 0.6 oz pur e alcohol) Comments Unknown Sex and Gender Information Value Date Recorded Sex Assigned at Not on file Legal Sex Female 8:30 AM INSOLE DEPARTMENT WORKER Gender Identity Female 10/06/2021 4:28 PM INSOLE DEPARTMENT WORKER Sexual Orientation Choose not to disclose 2020 4:28 PM INSOLE DEPARTMENT WORKER documented as of this encounter Medications at [...] on filedocumented in this encounter Care Teams Shop Tailor Apprentice Relationship Specialty Start Date End Date Denis Platt MD [address] [place] [address] PCP - General Family Medicine 01/14/22 07/18/23 documented as of this encounter
--- OUTSIDE RECORDS SUMMARY | 2024-10-22 06:30 | XMS_ITS | Encounter Summary ---
Author Organization [facility] Address [address] [facility] [address] [place] [address] Care Team Providers Care Lab Tech Name Role Phone Denis Platt MD Primary Care Provide r Encounter Details Date Type Department Care Team (Latest Contact Info) Description 04/02/2023 7:54 AM CDT - 04/02/2023 11:59 PM CDT Hospital Encounter [facility] Orthopedics and Sports Medicine [address] [facility] [address] [address] Discharge Disposition: Discharge to home [...] on file Legal Sex Female 8:30 AM PAPER MAKING MACHINE OPERATOR Gender Identity Female 10/06/2021 4:28 PM PAPER MAKING MACHINE OPERATOR Sexual Orientation Choose not to disclose 2020 4:28 PM PAPER MAKING MACHINE OPERATOR documented as of this encounter Medications [...] on filedocumented in this encounter Care Teams Lab Tech Relationship Specialty Start Date End Date Denis Platt MD [address] [place] [address] PCP - General Family Medicine 01/14/22 07/18/23 documented as of this encounter
--- OUTSIDE RECORDS SUMMARY | 2024-10-22 06:30 | XMS_ITS | Encounter Summary ---
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 Procedures XR Hip Left 2 or 3 Views Herber Knott MD Phone: tel: [facility] Referral ID Status Reason Start Date Expiration Date Visits Re quested Visits Authorized [id number] Closed 05/21/2022 06/20/2023 1 1 Reason for Visit * Reason Comments Post-op Encounter Details Date Type Department Care Team ([facility] st Contact Info) Description 05/21/2022 9:15 AM CDT Office Visit [facility] Orthopedics and Sports Medicine 4 [facility] [address] [place] [address] Herber Knott MD [address] [place] [address] [address] [place] [address] Aftercare following left hip joint [...] on file Legal Sex Female 8:30 AM OPTOMETRIC TECHNICIAN Gender Identity Female 10/06/2021 4:28 PM OPTOMETRIC TECHNICIAN Sexual Orientation Choose not to disclose 2020 4:28 PM OPTOMETRIC TECHNICIAN documented as of this encounter Last [...] joint documented in this encounter Care Teams Nicker Relationship Specialty Start Date End Date Denis Platt MD [address] [place] [address] PCP - General Family Medicine 01/14/22 07/18/23 documented as of this encounter
--- OUTSIDE RECORDS SUMMARY | 2024-10-22 06:30 | XMS_ITS | Encounter Summary ---
Author Organization [facility] Address [address] [facility] [address] [place] [address] Care Team Providers Care Director Financial Systems Name Role Phone Denis Platt MD Primary Care Provide r Encounter Details Date Type Department Care Team (Late st Contact Info) Description 03/25/2022 Telephone [facility] Orthopedics and Sports Medicine 4 [facility] [address] [place] [address] Herber Knott MD [address] [place] [address] [address] [place] [address] Social History Tobacco Use Types Packs/Day Years Used Date Smoking Tobacco: Former Cigarettes Q uit: 09/28/1978 Smokeless Tobacco: Never Alcohol Use Standard Drinks/Week Comments Yes 0 (1 standard drink = 0.6 oz pur e alcohol) Comments Unknown Sex and Gender Information Value Date Recorded Sex Assigned at Not on file Legal Sex Female 8:30 AM MANAGER NEWS Gender Identity Female 10/06/2021 4:28 PM MANAGER NEWS Sexual Orientation Choose not to disclose 2020 4:28 PM MANAGER NEWS documented as of this encounter Miscellaneous Notes * Telephone Encounter - Anh Polanco - 03/25/2022 4:28 PM CDT Per Padmini needs written order. This was faxed * Telephone Encounter - Lilly Moncada MA - 03/25/2022 12:14 PM CDT Talked to patient script sent to pharmacy LM for padmini [phone] to let her know repeat urine morning [...] filedocumented in this encounter Care Teams Director Financial Systems Relationship Specialty Start Date End Date Denis Platt MD [address] [place], [place] [id number] PCP - General Family Medicine 01/14/22 07/18/23 documented as of this encounter
--- OUTSIDE RECORDS SUMMARY | 2024-10-22 06:30 | XMS_ITS | Encounter Summary ---
Author Organization [facility] Address [address] [place] [address] Care Team Providers Care Press Machine Feeder Name Role Phone Denis Platt MD Primary Care Provide r Reason for Visit * Reason Comments Atrial Fibrillation Peripheral Artery Disease Hypertension Aortic Stenosis 5 mo f/u Encounter Details Date Type Department Care Team (Latest Contact Info) Description 01/14/2022 11:30 AM CDT Office Visit [facility] Cardiology [address] [place] [address] Andrade Brown MD [facility] [address] Non-rheumatic aortic stenosis (Primary Dx); USP current use of anticoagulant therapy; 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 [...] on file Legal Sex Female 8:30 AM DOCUMENT MANAGEMENT ANALYST Gender Identity Female 10/06/2021 4:28 PM DOCUMENT MANAGEMENT ANALYST Sexual Orientation Choose not to disclose 2020 4:28 PM DOCUMENT MANAGEMENT ANALYST documented as of this encounter Last [...] PVI ablation x2 with recent success 3. 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 PAD (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/HCC) Mild femoral disease 5. 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 goal <100 6. HTN (hypertension), benign At goal 7.. Mild carotid artery disease 8. Non-rheumatic aortic stenosis Mild: Asymptomatic PLAN/RECOMMENDATIONS EKG today because of her atrial fibrillation history Standing order for INR to be sent to [place] She will likely need a stress test [...] clinically indicated. Low-salt diet Andrade Brown MD, [facility] documented in this encounter Miscellaneous Notes [...] Visit Diagnoses Diagnosis Non-rheumatic aortic stenosis- Primary USP current use of anticoagulant therapy 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 goal <100 Other and unspecified hyperlipidemia Essential hypertension Unspecified essential hypertension documented in this encounter Care Teams Press Machine Feeder Relationship Specialty Start Date End Date Denis Platt MD [address] [place], [place] [id number] PCP - General Family Medicine 01/14/22 07/18/23 documented as of this encounter
--- OUTSIDE RECORDS SUMMARY | 2024-10-22 06:30 | XMS_ITS | Encounter Summary ---
Author Organization [facility] Address [address] [place] [address] Care Team Providers Care Cushion Sewer Name Role Phone Denis Platt MD Primary Care Provide r Encounter Details Date Type Department Care Team (Late st Contact Info) Description 04/24/2022 Telephone [facility] Cardiology [address] [facility] [address] [place] [address] Andrade Brown MD [facility] [place] [id number] Social History Tobacco Use Types Packs/Day Years Used Date Smoking Tobacco: Former Cigarettes Q uit: 09/28/1978 Smokeless Tobacco: Never Alcohol Use Standard Drinks/Week Comments Yes 0 (1 standard drink = 0.6 oz pur e alcohol) Comments Unknown Sex and Gender Information Value Date Recorded Sex Assigned at Not on file Legal Sex Female 8:30 AM ROOM SERVICE RUNNER Gender Identity Female 10/06/2021 4:28 PM ROOM SERVICE RUNNER Sexual Orientation Choose not to disclose 2020 4:28 PM ROOM SERVICE RUNNER documented as of this encounter Miscellaneous Notes [...] INR results from 04/05 and 04/24 to 0993,Thank you Contact:[phone] documented in this encounter Plan of Treatment Not on file documented as of this encounter Visit Diagnoses Not on filedocumented in this encounter Care Teams Cushion Sewer Relationship Specialty Start Date End Date Denis Platt MD [address] [place] [address] PCP - General Family Medicine 01/14/22 07/18/23 documented as of this encounter
--- OUTSIDE RECORDS SUMMARY | 2024-10-22 06:30 | XMS_ITS | Encounter Summary ---
Author Organization [facility] Address [address] [place] [address] Care Team Providers Care Staker Surveying Name Role Phone Denis Platt MD Primary Care Provide r Encounter Details Date Type Department Care Team (Late st Contact Info) Description 03/27/2022 Documentation [facility] Orthopedics and Sports Medicine [address] [place] [address] [address] [place] [phone] Lilly Moncada MA Social History Tobacco Use Types Packs/Day Years Used Date Smoking Tobacco: Former Cigarettes Q uit: 09/28/1978 Smokeless Tobacco: Never Alcohol Use Standard Drinks/Week Comments Yes 0 (1 standard drink = 0.6 oz pur e alcohol) Comments Unknown Sex and Gender Information Value Date Recorded Sex Assigned at Not on file Legal Sex Female 8:30 AM STITCHDOWNS TOE FORMER Gender Identity Female 10/06/2021 4:28 PM STITCHDOWNS TOE FORMER Sexual Orientation Choose not to disclose 2020 4:28 PM STITCHDOWNS TOE FORMER documented as of this encounter Progress Notes * Lilly Moncada MA - 03/27/2022 10:24 AM CDT Patient is cleared for LTHA on 04/07/[address] Platt and Dr. Brown documented in this encounter Plan of Treatment Not on file documented as of this encounter Visit Diagnoses Not on filedocumented in this encounter Care Teams Staker Surveying Relationship Specialty Start Date End Date Denis Platt MD [address] [place] [address] PCP - General Family Medicine 01/14/22 07/18/23 documented as of this encounter
--- OUTSIDE RECORDS SUMMARY | 2024-10-22 06:30 | XMS_ITS | Encounter Summary ---
Author Organization [facility] Address 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 Social History Tobacco Use Types Packs/Day Years Used Date Smoking Tobacco: Former Cigarettes Q uit: 09/28/1978 Smokeless Tobacco: Never Alcohol Use Standard Drinks/Week Comments Yes 0 (1 standard drink = 0.6 oz pur e alcohol) Comments Unknown Sex and Gender Information Value Date Recorded Sex Assigned at Not on file Legal Sex Female 8:30 AM BOTTLE BLOWER Gender Identity Female 10/06/2021 4:28 PM BOTTLE BLOWER Sexual Orientation Choose not to disclose 2020 4:28 PM BOTTLE BLOWER documented as of this encounter Plan of [...] Atrial fibrillation, unspecified type (HCC)- Primary 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
--- OUTSIDE RECORDS SUMMARY | 2024-10-22 06:30 | XMS_ITS | Encounter Summary ---
Author Organization [facility] Address [address] [place] [address] Care Team Providers Care Presto Log Operator Name Role Phone Denis Platt MD Primary Care Provide r Encounter Details Date Type Department Care Team (Late st Contact Info) Description 03/25/2022 Orders Only [facility] Orthopedics and Sports Medicine [address] [facility] [address] [place] [address] Herber Knott MD [address] [place] [address] [address] [place], [place] [id number] Social History Tobacco Use Types Packs/Day Years Used Date Smoking Tobacco: Former Cigarettes Q uit: 09/28/1978 Smokeless Tobacco: Never Alcohol Use Standard Drinks/Week Comments Yes 0 (1 standard drink = 0.6 oz pur e alcohol) Comments Unknown Sex and Gender Information Value Date Recorded Sex Assigned at Not on file Legal Sex Female 8:30 AM MACHINE STONE POLISHER Gender Identity Female 10/06/2021 4:28 PM MACHINE STONE POLISHER Sexual Orientation Choose not to disclose 2020 4:28 PM MACHINE STONE POLISHER documented as of this encounter Ordered Prescriptions [...] on filedocumented in this encounter Care Teams Presto Log Operator Relationship Specialty Start Date End Date Denis Platt MD [address] [place], [place] [id number] PCP - General Family Medicine 01/14/22 07/18/23 documented as of this encounter
--- OUTSIDE RECORDS SUMMARY | 2024-10-22 06:30 | XMS_ITS | Encounter Summary ---
Author Organization [facility] Address [address] [place] [address] Care Team Providers Care Heating And Cooling Systems Engineer Name Role Phone Denis Platt MD Primary Care Provide r Reason for Visit * Reason Comments Aortic Stenosis Atrial Fibrillation 6 mo f/u Encounter Details Date Type Department Care Team (Latest Contact Info) Description 01/27/2023 11:30 AM CDT Office Visit [facility] Cardiology [address] [facility] [address] [place] [address] Andrade Brown MD [address] [address] Non-rheumatic aortic stenosis (Primary Dx); Paroxysmal atrial fibrillation (CMS/HCC) (HCC); Essential hypertension; 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 goal <100; PAD (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) (HCC); supervisor 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 current 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 of anticoagulant 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 residential (current) use of anticoagulants [Z79.01] No bleeding [...] clinically indicated. 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
--- OUTSIDE RECORDS SUMMARY | 2024-10-22 06:30 | XMS_ITS | Encounter Summary ---
Author Organization [facility] Address [address] [place] [address] Care Team Providers Care Obstetrics/Gynecology Nurse Name Role Phone Devaughn Macias MD Primary Care Provider Encounter Details Date Type Department Care Team (Latest Contact Info) Description 01/08/2022 Anticoagulation Visit [facility] Cardiology [address] [place] [address] Jacque Hitchcock RN Atrial fibrillation, unspecified type (HCC) (Primary Dx); half-way current use of anticoagulant therapy Social History Tobacco Use Types Packs/Day Years Used Date Smoking Tobacco: Former Cigarettes Q uit: 09/28/1978 Smokeless Tobacco: Never Alcohol Use Standard Drinks/Week Comments Yes 0 (1 standard drink = 0.6 oz pur e alcohol) Comments Unknown Sex and Gender Information Value Date Recorded Sex Assigned at Not on file Legal Sex Female 8:30 AM MEDICAL MASSAGE THERAPIST Gender Identity Female 10/06/2021 4:28 PM MEDICAL MASSAGE THERAPIST Sexual Orientation Choose not to disclose 2020 4:28 PM MEDICAL MASSAGE THERAPIST documented as of this encounter Plan [...] Diagnosis Atrial fibrillation, unspecified type (HCC)- Primary half-way current use of anticoagulant therapy documented in this encounter Care Teams Obstetrics/Gynecology Nurse Relationship Specialty Start Date End Date Devaughn Macias MD PCP - General Family Medicine 01/31/20 01/13/22 documented as of this encounter
--- OUTSIDE RECORDS SUMMARY | 2024-10-22 06:30 | XMS_ITS | Encounter Summary ---
Author Organization [facility] Address 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 Social History Tobacco Use Types Packs/Day Years Used Date Smoking Tobacco: Former Cigarettes Q uit: 09/28/1978 Smokeless Tobacco: Never Alcohol Use Standard Drinks/Week Comments Yes 0 (1 standard drink = 0.6 oz pur e alcohol) Comments Unknown Sex and Gender Information Value Date Recorded Sex Assigned at Not on file Legal Sex Female 8:30 AM SALES COMPENSATION ANALYST Gender Identity Female 10/06/2021 4:28 PM SALES COMPENSATION ANALYST Sexual Orientation Choose not to disclose 2020 4:28 PM SALES COMPENSATION ANALYST documented as of this encounter Plan of Treatment Not on file documented as of this encounter Visit Diagnoses Diagnosis Atrial fibrillation, unspecified type (HCC)- Primary 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
--- OUTSIDE RECORDS SUMMARY | 2024-10-22 06:30 | XMS_ITS | Encounter Summary ---
Author Organization [facility] Address [address] [place] [address] Care Team Providers Care Log Hooker Name Role Phone Denis Platt MD Primary Care Provide r Encounter Details Date Type Department Care Team (Late st Contact Info) Description 09/17/2022 Telephone [facility] Cardiology [address] [facility] [address] [place] [address] Andrade Brown MD [facility] [place] [id number] Social History Tobacco Use Types Packs/Day Years Used Date Smoking Tobacco: Former Cigarettes Q uit: 09/28/1978 Smokeless Tobacco: Never Alcohol Use Standard Drinks/Week Comments Yes 0 (1 standard drink = 0.6 oz pur e alcohol) Comments Unknown Sex and Gender Information Value Date Recorded Sex Assigned at Not on file Legal Sex Female 8:30 AM THERAPEUTIC DIETITIAN Gender Identity Female 10/06/2021 4:28 PM THERAPEUTIC DIETITIAN Sexual Orientation Choose not to disclose 2020 4:28 PM THERAPEUTIC DIETITIAN documented as of this encounter Miscellaneous Notes * Telephone Encounter - Rachel Zhao RN - 09/23/2022 1:16 PM THERAPEUTIC DIETITIAN Spoke with pt, reviewed message from [facility]-she is agreeable to go back on warfarin-she wanted to [id number] 5 days a week and 2mg 2 days a week and will recheck INR in 2 weeks. APEUTIC DIETITIAN * Telephone Encounter - Rachel Zhao RN - 09/22/2022 9:15 AM THERAPEUTIC DIETITIAN Sent pt [facility]'s response via my chart also. APEUTIC DIETITIAN * Telephone Encounter - Rachel Zhao RN - 09/22/2022 9:13 AM THERAPEUTIC DIETITIAN LM on VM reviewing message from [facility]-requested callback to discuss. APEUTIC DIETITIAN * Telephone Encounter - Rachel Zhao RN - 09/21/2022 9:29 AM THERAPEUTIC DIETITIAN LM on VM reviewing message from [facility]-requested callback to discuss. APEUTIC DIETITIAN * Telephone Encounter - Rachel Zhao RN - 09/18/2022 10:21 AM THERAPEUTIC DIETITIAN LM on VM reviewing message from [facility]-requested callback to discuss. APEUTIC DIETITIAN * Telephone Encounter - Rachel Zhao RN - 09/17/2022 3:07 PM THERAPEUTIC DIETITIAN Spoke with pt about INR from last [...] to not take anymore if ok with [facility]. She would like to know his recommendations. Will forward to [facility]. Please advise, thank you! APEUTIC DIETITIAN documented in this encounter Plan of Treatment Not on file documented as of this encounter Visit Diagnoses Not on filedocumented in this encounter Care Teams Log Hooker Relationship Specialty Start Date End Date Denis Platt MD [address] [place], [place] [id number] PCP - General Family Medicine 01/14/22 07/18/23 documented as of this encounter
--- OUTSIDE RECORDS SUMMARY | 2024-10-22 06:30 | XMS_ITS | Encounter Summary ---
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 Social History Tobacco Use Types Packs/Day Years Used Date Smoking Tobacco: Former Cigarettes Q uit: 09/28/1978 Smokeless Tobacco: Never Alcohol Use Standard Drinks/Week Comments Yes 0 (1 standard drink = 0.6 oz pur e alcohol) Comments Unknown Sex and Gender Information Value Date Recorded Sex Assigned at Not on file Legal Sex Female 8:30 AM COST ENGINEER Gender Identity Female 10/06/2021 4:28 PM COST ENGINEER Sexual Orientation Choose not to disclose 2020 4:28 PM COST ENGINEER documented as of this encounter Plan of Treatment Not on file documented as of this encounter Procedures Procedure Name Priority Date/Time Associated Diagnosis Comments PROTIME-INR Routine 08/05/2022 documented in this encounter Results * (ABNORMAL) Protime-INR (08/05/2022) INR 4.90(A) 0.9 - 1.1 EXTERNAL LAB Blood Narrative Resulting Agency Comment us Historical Provider LAB BLOOD ORDERABLES Noris maruo Result EXTERNAL LAB documented in this encounter Visit Diagnoses Diagnosis Atrial fibrillation, unspecified type (HCC)- Primary 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
--- OUTSIDE RECORDS SUMMARY | 2024-10-22 06:30 | XMS_ITS | Encounter Summary ---
Author Organization [facility] Address [address] 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 Social History Tobacco Use Types Packs/Day Years Used Date Smoking Tobacco: Former Cigarettes Q uit: 09/28/1978 Smokeless Tobacco: Never Alcohol Use Standard Drinks/Week Comments Yes 0 (1 standard drink = 0.6 oz pur e alcohol) Comments Unknown Sex and Gender Information Value Date Recorded Sex Assigned at Not on file Legal Sex Female 8:30 AM JANITOR HELPER Gender Identity Female 10/06/2021 4:28 PM JANITOR HELPER Sexual Orientation Choose not to disclose 2020 4:28 PM JANITOR HELPER documented as of this encounter Plan [...] Diagnosis Atrial fibrillation, unspecified type (HCC)- 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
--- OUTSIDE RECORDS SUMMARY | 2024-10-22 06:30 | XMS_ITS | Encounter Summary ---
Author Organization [facility] Address [address] [place] [address] Care Team Providers Care Chinese Teacher Name Role Phone Denis Platt MD Primary Care Provide r Encounter Details Date Type Department Care Team (Late st Contact Info) Description 03/25/2022 Orders Only [facility] Orthopedics and Sports Medicine [address] [facility] [address] [place] [address] Herber Knott MD [address] [place] [address] [address] [place], [place] [id number] Primary osteoarthritis of left hip (Primary Dx); [...] on file Legal Sex Female 8:30 AM PSYCHIATRIC REGISTERED NURSE Gender Identity Female 10/06/2021 4:28 PM PSYCHIATRIC REGISTERED NURSE Sexual Orientation Choose not to disclose 2020 4:28 PM PSYCHIATRIC REGISTERED NURSE documented as of this encounter Plan [...] examination documented in this encounter Care Teams Chinese Teacher Relationship Specialty Start Date End Date Denis Platt MD [address] [place] [address] PCP - General Family Medicine 01/14/22 07/18/23 documented as of this encounter
--- OUTSIDE RECORDS SUMMARY | 2024-10-22 06:30 | XMS_ITS | Encounter Summary ---
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 Social History Tobacco Use Types Packs/Day Years Used Date Smoking Tobacco: Former Cigarettes Q uit: 09/28/1978 Smokeless Tobacco: Never Alcohol Use Standard Drinks/Week Comments Yes 0 (1 standard drink = 0.6 oz pur e alcohol) Comments Unknown Sex and Gender Information Value Date Recorded Sex Assigned at Not on file Legal Sex Female 8:30 AM COMPRESSOR STATION CHIEF ENGINEER Gender Identity Female 10/06/2021 4:28 PM COMPRESSOR STATION CHIEF ENGINEER Sexual Orientation Choose not to disclose 2020 4:28 PM COMPRESSOR STATION CHIEF ENGINEER documented as of this encounter Plan [...] Diagnosis Atrial fibrillation, unspecified type (HCC)- Primary group home current use of anticoagulant therapy documented in this encounter Care Teams Warp Hauler Relationship Specialty Start Date End Date Denis Platt MD [address] [place] [address] PCP - General Family Medicine 01/14/22 07/18/23 documented as of this encounter
--- OUTSIDE RECORDS SUMMARY | 2024-10-22 06:30 | XMS_ITS | Encounter Summary ---
Author Organization [facility] Address [address] [facility] [address] [place] [address] Care Team Providers Care Leaflet Or Newspaper Deliverer Name Role Phone Denis Platt MD Primary Care Provide r Encounter Details Date Type Department Care Team (Late st Contact Info) Description 01/15/2023 Telephone [facility] Cardiology [address] [facility] [address] [place] [address] Andrade Brown MD [facility] [id number] Social History Tobacco Use Types Packs/Day Years Used Date Smoking Tobacco: Former Cigarettes Q uit: 09/28/1978 Smokeless Tobacco: Never Alcohol Use Standard Drinks/Week Comments Yes 0 (1 standard drink = 0.6 oz pur e alcohol) Comments Unknown Sex and Gender Information Value Date Recorded Sex Assigned at Not on file Legal Sex Female 8:30 AM DIRECTOR OF PHYSICIAN PRACTICES Gender Identity Female 10/06/2021 4:28 PM DIRECTOR OF PHYSICIAN PRACTICES Sexual Orientation Choose not to disclose 2020 4:28 PM DIRECTOR OF PHYSICIAN PRACTICES documented as of this encounter Miscellaneous Notes [...] been a re-occuring problem. Will forward to [facility] as FYI. Pt has an upcoming appt on 01/27. documented in this encounter Plan of Treatment Not on file documented as of this encounter Visit Diagnoses Not on filedocumented in this encounter Care Teams Leaflet Or Newspaper Deliverer Relationship Specialty Start Date End Date Denis Platt MD [address] [id number] PCP - General Family Medicine 01/14/22 07/18/23 documented as of this encounter
--- OUTSIDE RECORDS SUMMARY | 2024-10-22 06:30 | XMS_ITS | Encounter Summary ---
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 Social History Tobacco Use Types Packs/Day Years Used Date Smoking Tobacco: Former Cigarettes Q uit: 09/28/1978 Smokeless Tobacco: Never Alcohol Use Standard Drinks/Week Comments Yes 0 (1 standard drink = 0.6 oz pur e alcohol) Comments Unknown Sex and Gender Information Value Date Recorded Sex Assigned at Not on file Legal Sex Female 8:30 AM REED DIPPER Gender Identity Female 10/06/2021 4:28 PM REED DIPPER Sexual Orientation Choose not to disclose 2020 4:28 PM REED DIPPER documented as of this encounter Plan of [...] Diagnosis Atrial fibrillation, unspecified type (HCC)- Primary detention current use of anticoagulant therapy documented in this encounter Care Teams Telegraph Office Manager Relationship Specialty Start Date End Date Denis Platt MD [address] [place] [address] PCP - General Family Medicine 01/14/22 07/18/23 documented as of this encounter
--- OUTSIDE RECORDS SUMMARY | 2024-10-22 06:30 | XMS_ITS | Encounter Summary ---
Author Organization [facility] Address [address] [facility] [address] [place] [address] Care Team Providers Care Provider Relations Consultant Name Role Phone Denis Platt MD Primary [...] Studies Ciarra Fitzpatrick MD [address] [place] [address] [id number] [place] [address] Phone: tel: fax: [facility] Referral ID Status Reason Start Date Expiration Date Visits Re quested Visits Authorized [id number] Closed 02/18/2022 03/20/2023 1 1 Encounter Details Date Type Department Care Team (Late Contact Info) Description 02/17/2022 Telephone [facility] Cardiology [address] [facility] [address] [place] [address] Ciarra Fitzpatrick MD [address] [place] [address] Social History Tobacco Use Types Packs/Day Years Used Date Smoking Tobacco: Former Cigarettes Q uit: 09/28/1978 Smokeless Tobacco: Never Alcohol Use Standard Drinks/Week Comments Yes 0 (1 standard drink = 0.6 oz pur e alcohol) Comments Unknown Sex and Gender Information Value Date Recorded Sex Assigned at Not on file Legal Sex Female 8:30 AM ORNAMENTAL METAL ERECTOR APPRENTICE Gender Identity Female 10/06/2021 4:28 PM ORNAMENTAL METAL ERECTOR APPRENTICE Sexual Orientation Choose not to disclose 2020 4:28 PM ORNAMENTAL METAL ERECTOR APPRENTICE documented as of this encounter Miscellaneous Notes [...] 02/17/2022 2:15 PM CDT Will forward to [facility]. Please advise, thank you! * Telephone Encounter - Elif Christina - 02/17/2022 1:52 PM CDT Pt states [facility] recommends pt gets a stress test done [...] AM CDT Narrative 02/26/2022 1:09 PM CDT [facility] Cardiology [address] [facility], [place] [address] [address] [facility] [address], [place] [address] P:[phone] P:[phone] MPI Imaging Report Patient Name: QUIN HUERTADoug : 1935 Study Date: 02/26/2022 9:55:19 AM Gender: F Tech: [facility] Location: [place] Ref.Provider: CIARRA FITZPATRICK Height(Cm): 165.1 BSA: Weight(Kg): [...] Procedure Note Ciarra Fitzpatrick MD - 02/26/2022 [facility] Cardiology [address] [facility] [address], [place] [address] [address] [facility] [address], [place] [address] P:[phone] P:[phone] MPI Imaging Report Patient Name: QUIN HUERTA Rickey ID: [id number] : [id number] Date: 02/26/2022 9:55:19 AM Gender: FAccession #: [id number] Tech: [place], [place]Location: [place] Ref.Provider: Shanell FITZPATRICKight(Cm): 165.1 BSA: Weight(Kg): 84.8 [...] hyperlipidemia documented in this encounter Care Teams Provider Relations Consultant Relationship Specialty Start Date End Date Denis Platt MD [address] [place], [place] [phone] PCP - General Family Medicine 01/14/22 07/18/23 documented as of this encounter
--- OUTSIDE RECORDS SUMMARY | 2024-10-22 06:30 | XMS_ITS | Encounter Summary ---
Author Organization [facility] Address [address] [facility] [address] [place] [address] Care Team Providers Care Slot Host Name Role Phone Denis Platt MD Primary [...] Expiration Date Visits Re quested Visits Authorized [id number] Closed 05/21/2022 06/20/2023 1 1 Encounter Details Date Type Department Care Team (Latest Contact Info) Description 05/21/2022 7:45 AM CDT - 05/21/2022 11:59 PM CDT Hospital Encounter [facility] Orthopedics and Sports Medicine [address] [place] [address] [address] [place] [phone] Discharge Disposition: Discharge to home or self care Social History Tobacco Use Types Packs/Day Years Used Date Smoking Tobacco: Former Cigarettes Q uit: 09/28/1978 Smokeless Tobacco: Never Alcohol Use Standard Drinks/Week Comments Yes 0 (1 standard drink = 0.6 oz pur e alcohol) Comments Unknown Sex and Gender Information Value Date Recorded Sex Assigned at Not on file Legal Sex Female 8:30 AM PROPERTY COORDINATOR Gender Identity Female 10/06/2021 4:28 PM PROPERTY COORDINATOR Sexual Orientation Choose not to disclose 2020 4:28 PM PROPERTY COORDINATOR documented as of this encounter Medications [...] filedocumented in this encounter Care Teams Slot Host Relationship Specialty Start Date End Date Denis Platt MD [address] [place] [address] PCP - General Family Medicine 01/14/22 07/18/23 documented as of this encounter
--- OUTSIDE RECORDS SUMMARY | 2024-10-22 06:30 | XMS_ITS | Encounter Summary ---
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 Social History Tobacco Use Types Packs/Day Years Used Date Smoking Tobacco: Former Cigarettes Q uit: 09/28/1978 Smokeless Tobacco: Never Alcohol Use Standard Drinks/Week Comments Yes 0 (1 standard drink = 0.6 oz pur e alcohol) Comments Unknown Sex and Gender Information Value Date Recorded Sex Assigned at Not on file Legal Sex Female 8:30 AM INDUSTRIAL COOK Gender Identity Female 10/06/2021 4:28 PM INDUSTRIAL COOK Sexual Orientation Choose not to disclose 2020 4:28 PM INDUSTRIAL COOK documented as of this encounter Plan of [...] therapy documented in this encounter Care Teams Bundle Sorter Relationship Specialty Start Date End Date Denis Platt MD [address] [place] [address] PCP - General Family Medicine 01/14/22 07/18/23 documented as of this encounter
--- OUTSIDE RECORDS SUMMARY | 2024-10-22 06:30 | XMS_ITS | Encounter Summary ---
Author Organization [facility] Address [address] [facility] [address] [place] [address] Care Team Providers Care Pipe Welder Name Role Phone Denis Platt MD Primary Care Provide r Encounter Details Date Type Department Care Team (Late st Contact Info) Description 04/08/2022 Telephone [facility] Orthopedics and Sports Medicine [address] [facility] [address], [place] [address] Tiana Beltran MA Social History Tobacco Use Types Packs/Day Years Used Date Smoking Tobacco: Former Cigarettes Q uit: 09/28/1978 Smokeless Tobacco: Never Alcohol Use Standard Drinks/Week Comments Yes 0 (1 standard drink = 0.6 oz pur e alcohol) Comments Unknown Sex and Gender Information Value Date Recorded Sex Assigned at Not on file Legal Sex Female 8:30 AM MACHINE OPERATOR REPLANTER Gender Identity Female 10/06/2021 4:28 PM MACHINE OPERATOR REPLANTER Sexual Orientation Choose not to disclose 2020 4:28 PM MACHINE OPERATOR REPLANTER documented as of this encounter Miscellaneous Notes [...] to get a verbal and call back. [phone] I could not reach Dr. Knott or [...] on filedocumented in this encounter Care Teams Pipe Welder Relationship Specialty Start Date End Date Denis Platt MD [address] [place] [address] PCP - General Family Medicine 01/14/22 07/18/23 documented as of this encounter
--- OUTSIDE RECORDS SUMMARY | 2024-10-22 06:30 | XMS_ITS | Encounter Summary ---
Author Organization [facility] Address [address] [facility] [address] [place] [address] Care Team Providers Care Extractor Machine Operator Name Role Phone Denis Platt MD Primary Care Provide r Reason for Visit * Reason Comments Follow-up Encounter Details Date Type Department Care Team ([facility] Contact Info) Description 03/19/2022 10:30 AM CDT Office Visit [facility] Orthopedics and Sports Medicine [address] [facility] [address] [place] [phone] Herber Knott MD [address] [place] [address] [address] [place] [address] Primary osteoarthritis of left hip (Primary Dx); [...] on file Legal Sex Female 8:30 AM PORCELAIN SLUSHER Gender Identity Female 10/06/2021 4:28 PM PORCELAIN SLUSHER Sexual Orientation Choose not to disclose 2020 4:28 PM PORCELAIN SLUSHER documented as of this encounter Last Filed [...] X-RAYS/STUDIES/LABS severe advanced left hip osteoarthritis with [id number] contact, osteophyte formation, subluxation. Assessment/Plan Quin was [...] examination documented in this encounter Care Teams Extractor Machine Operator Relationship Specialty Start Date End Date Denis Platt MD [address] [place] [address] PCP - General Family Medicine 01/14/22 07/18/23 documented as of this encounter
--- OUTSIDE RECORDS SUMMARY | 2024-10-22 06:30 | XMS_ITS | Encounter Summary ---
Author Organization [facility] Address [address] [facility] [address] [place] [address] Care Team Providers Care Swedger Name Role Phone Denis Platt MD Primary Care Provide r Reason for Referral * Diagnostic Imaging (Routine) - Closed Specialty Diagnoses / Procedures Referred By Lyndsey farmer Referred To Contact Diagnoses Left hip pain Procedures XR Hip Left 2 or 3 Views Kami Lyons PA Phone: tel: fax: [facility] Referral ID Status Reason Start Date Expiration Date Visits Re quested Visits Authorized [id number] Closed 02/26/2022 03/28/2023 1 1 Reason for Visit * Reason Comments Pain Encounter Details Date Type Department Care Team (Late st Contact Info) Description 02/26/2022 3:15 PM CDT Office Visit [facility] Orthopedics and Sports Medicine [address] [place] [address] [address], [place] [address] [place] [address] [place] [address] Left hip pain (Primary Dx); Primary osteoarthritis [...] on file Legal Sex Female 8:30 AM SHUTTLE SPOTTER Gender Identity Female 10/06/2021 4:28 PM SHUTTLE SPOTTER Sexual Orientation Choose not to disclose 2020 4:28 PM SHUTTLE SPOTTER documented as of this encounter Last Filed [...] hip documented in this encounter Care Teams Swedger Relationship Specialty Start Date End Date Denis Platt MD [address] [place] [address] PCP - General Family Medicine 01/14/22 07/18/23 documented as of this encounter
--- OUTSIDE RECORDS SUMMARY | 2024-10-22 06:30 | XMS_ITS | Encounter Summary ---
Author Organization [facility] Address [address] [facility] 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 Social History Tobacco Use Types Packs/Day Years Used Date Smoking Tobacco: Former Cigarettes Q uit: 09/28/1978 Smokeless Tobacco: Never Alcohol Use Standard Drinks/Week Comments Yes 0 (1 standard drink = 0.6 oz pur e alcohol) Comments Unknown Sex and Gender Information Value Date Recorded Sex Assigned at Not on file Legal Sex Female 8:30 AM ELIGIBILITY WORKER Gender Identity Female 10/06/2021 4:28 PM ELIGIBILITY WORKER Sexual Orientation Choose not to disclose 2020 4:28 PM ELIGIBILITY WORKER documented as of this encounter Plan [...] therapy documented in this encounter Care Teams Web Content Producer Relationship Specialty Start Date End Date Denis Platt MD [address] [place] [address] PCP - General Family Medicine 01/14/22 07/18/23 documented as of this encounter
--- OUTSIDE RECORDS SUMMARY | 2024-10-22 06:30 | XMS_ITS | Encounter Summary ---
Author Organization [facility] Address [address] [address] Care Team Providers Care Typewriter Ribbon Winder Name Role Phone Denis Platt MD Primary Care Provide r Reason for Referral * Procedure (Routine) - Closed Specialty Diagnoses / Procedures Referred By Contac t Referred To Contact Diagnoses Primary osteoarthritis of right knee Procedures Large Joint (Hip, Knee, Shoulder) Injection: R knee Ann Marie Puri PA Phone: tel: fax: [facility] Referral ID Status Reason Start Date Expiration Date Visits Re quested Visits Authorized [id number] Closed 04/05/2023 04/05/2023 1 1 * Diagnostic Imaging (Routine) - Closed Specialty Diagnoses / Procedures Referred By Contac t Referred To Contact Diagnoses Primary osteoarthritis of right knee Procedures XR Hip Right 2 or 3 Views Ann Marie Puri PA Phone: tel: fax: [facility] Referral ID Status Reason Start Date Expiration Date Visits Re quested Visits Authorized [id number] Closed 04/02/2023 04/02/2023 1 1 Reason for Visit * Reason Comments Pain Encounter Details Date Type Department Care Team (Late st Contact Info) Description 04/02/2023 3:15 PM CDT Office Visit [facility] Orthopedics and Sports Medicine [address] [facility] [address] [place] [address] Ann Marie Puri PA [address] [place] [address] [address] [place] [address] Primary osteoarthritis of right knee (Primary Dx); [...] on file Legal Sex Female 8:30 AM PINION AND WHEEL TRUER Gender Identity Female 10/06/2021 4:28 PM PINION AND WHEEL TRUER Sexual Orientation Choose not to disclose 2020 4:28 PM PINION AND WHEEL TRUER documented as of this encounter Last Filed [...] fluoro guided injection to be done at [facility], but the patient would tend to see [...] PM CDT Primary osteoarthritis of right knee DC ARTHROCENTESIS ASPIR&/INJ MAJOR JT/BURSA W/O US [...] IMG XR PROCEDURES Final Resu lt * DC ARTHROCENTESIS ASPIR&/INJ MAJOR JT/BURSA W/O US (04/02/2023 [...] Knee documented in this encounter Care Teams Typewriter Ribbon Winder Relationship Specialty Start Date End Date Denis Platt MD [address] [place] [address] PCP - General Family Medicine 01/14/22 07/18/23 documented as of this encounter
--- OUTSIDE RECORDS SUMMARY | 2024-10-22 06:30 | XMS_ITS | Encounter Summary ---
Author Organization [facility] Address [address] [facility] [address] [place] [address] Care Team Providers Care Photo Finisher Name Role Phone Denis Platt MD Primary Care Provide r Reason for Visit * Diagnostic Imaging (Routine) - Closed Specialty Diagnoses / Procedures Referred By Lyndsey farmer Referred To Contact Diagnoses Left hip pain Procedures XR Hip Left 2 or 3 Views Kami Lyons PA Phone: tel: fax: [facility] Referral ID Status Reason Start Date Expiration Date Visits Re quested Visits Authorized [id number] Closed 02/26/2022 03/28/2023 1 1 Encounter Details Date Type Department Care Team (Latest Contact Info) Description 02/26/2022 8:05 AM CDT - 02/26/2022 11:59 PM CDT Hospital Encounter [facility] Orthopedics and Sports Medicine [address] [place] [address] [address] [address] Discharge Disposition: Discharge to home [...] on file Legal Sex Female 8:[address] FREIGHT Gender Identity Female 10/06/2021 4:[address] ENGINEER FREIGHT Sexual Orientation Choose not to disclose 2020 4:[address]ER FREIGHT documented as of this encounter Medications at [...] on filedocumented in this encounter Care Teams Photo Finisher Relationship Specialty Start Date End Date Denis Platt MD [address] [place] [address] PCP - General Family Medicine 01/14/22 07/18/23 documented as of this encounter
--- OUTSIDE RECORDS SUMMARY | 2024-10-22 06:30 | XMS_ITS | Encounter Summary ---
Author Organization [facility] Address [address] [facility] [address] [place] [address] Care Team Providers Care Band Lining Bander Name Role Phone Denis Platt MD Primary Care Provide r Encounter Details Date Type Department Care Team (Latest Contact Info) Description 04/24/2022 Anticoagulation Visit [facility] Cardiology [address] [place] [address] Rosy White RN Atrial fibrillation, unspecified type (HCC) (Primary Dx); shelter current use of anticoagulant therapy Social History Tobacco Use Types Packs/Day Years Used Date Smoking Tobacco: Former Cigarettes Q uit: 09/28/1978 Smokeless Tobacco: Never Alcohol Use Standard Drinks/Week Comments Yes 0 (1 standard drink = 0.6 oz pur e alcohol) Comments Unknown Sex and Gender Information Value Date Recorded Sex Assigned at Not on file Legal Sex Female 8:30 AM TECHNICAL MAINTENANCE TECHNICIAN Gender Identity Female 10/06/2021 4:28 PM TECHNICAL MAINTENANCE TECHNICIAN Sexual Orientation Choose not to disclose 2020 4:28 PM TECHNICAL MAINTENANCE TECHNICIAN documented as of this encounter Plan [...] Diagnosis Atrial fibrillation, unspecified type (HCC)- Primary shelter current use of anticoagulant therapy documented in this encounter Care Teams Band Lining Bander Relationship Specialty Start Date End Date Denis Platt MD [address] [place] [address] PCP - General Family Medicine 01/14/22 07/18/23 documented as of this encounter
--- OUTSIDE RECORDS SUMMARY | 2024-10-22 06:30 | XMS_ITS | Encounter Summary ---
Author Organization [facility] Address [address] [facility] [address] [place] [address] Care Team Providers Care Security Tester Name Role Phone Denis Platt MD Primary Care Provide r Encounter Details Date Type Department Care Team (Late st Contact Info) Description 09/10/2022 Telephone [facility] Cardiology [address] [facility] [address] [place] [address] Andrade Brown MD [facility] [place] [id number] Social History Tobacco Use Types Packs/Day Years Used Date Smoking Tobacco: Former Cigarettes Q uit: 09/28/1978 Smokeless Tobacco: Never Alcohol Use Standard Drinks/Week Comments Yes 0 (1 standard drink = 0.6 oz pur e alcohol) Comments Unknown Sex and Gender Information Value Date Recorded Sex Assigned at Not on file Legal Sex Female 8:30 AM CASE FILLER Gender Identity Female 10/06/2021 4:28 PM CASE FILLER Sexual Orientation Choose not to disclose 2020 4:28 PM CASE FILLER documented as of this encounter Miscellaneous Notes * Telephone Encounter - Jacque Hitchcock RN - 09/10/2022 11:24 AM CASE FILLER Called and spoke with pt, pt agreed to go to ER. Pt will go to [facility]. Called [facility], spoke with Olivia SETH to make aware. MAF aware. FILLER * Telephone Encounter - Elif Christina - 09/10/2022 11:05 AM CST Elizabeth called from [facility] to report a critical INR result. They repeated it as requested. Pt still refusing to go to ER. Pt states she is going home to take a nap. INR- 12.7 Contact: FILLER FILLER * Telephone Encounter - Jacque Hitchcock RN - 09/10/2022 9:38 AM CASE FILLER [facility] Critical INR result of 12.2. Spoke [...] STAT. Pt agrees. Will await repeat INR. FILLER FILLER documented in this encounter Plan of Treatment Not on file documented as of this encounter Visit Diagnoses Not on filedocumented in this encounter Care Teams Security Tester Relationship Specialty Start Date End Date Denis Platt MD [address] [place] [address] PCP - General Family Medicine 01/14/22 07/18/23 documented as of this encounter
--- OUTSIDE RECORDS SUMMARY | 2024-10-22 06:30 | XMS_ITS | Encounter Summary ---
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 Social History Tobacco Use Types Packs/Day Years Used Date Smoking Tobacco: Former Cigarettes Q uit: 09/28/1978 Smokeless Tobacco: Never Alcohol Use Standard Drinks/Week Comments Yes 0 (1 standard drink = 0.6 oz pur e alcohol) Comments Unknown Sex and Gender Information Value Date Recorded Sex Assigned at Not on file Legal Sex Female 8:30 AM BUSINESS PARTNER Gender Identity Female 10/06/2021 4:28 PM BUSINESS PARTNER Sexual Orientation Choose not to disclose 2020 4:28 PM BUSINESS PARTNER documented as of this encounter Plan of [...] therapy documented in this encounter Care Teams Media Developer Relationship Specialty Start Date End Date Denis Platt MD [address] [place] [address] PCP - General Family Medicine 01/14/22 07/18/23 documented as of this encounter
--- OUTSIDE RECORDS SUMMARY | 2024-10-22 06:30 | XMS_ITS | Encounter Summary ---
Author Organization [facility] Address [address] [place] [address] Care Team Providers Care Chief Technology Officer Name Role Phone Denis Pltat MD Primary Care Provide r Reason for Visit * Reason Comments Follow-up 6 mo f/u Atrial Fibrillation Non-rheumatic aortic stenosis Encounter Details Date Type Department Care Team (Latest Contact Info) Description 07/22/2022 10:30 AM CDT Office Visit [facility] Cardiology [address] [place] [address] Andrade Brown MD [facility] [address] PAD (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/HCC) (HCC) (Primary Dx); 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 goal <100; intermission coordinator current use of anticoagulant therapy; Non-rheumatic aortic [...] on file Legal Sex Female 8:30 AM PRODUCT MARKETING ENGINEER Gender Identity Female 10/06/2021 4:28 PM PRODUCT MARKETING ENGINEER Sexual Orientation Choose not to disclose 2020 4:28 PM PRODUCT MARKETING ENGINEER documented as of this encounter Last [...] PVI ablation x2 with recent success 3. 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 [Z79.01] No bleeding [...] clinically indicated. Low-salt diet Andrade Brown MD, [facility] documented in this encounter Plan of Treatment Not on file documented as of this encounter Visit Diagnoses Diagnosis PAD (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) (HCC)- Primary Unspecified peripheral vascular disease 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 goal <100 Other and unspecified hyperlipidemia intermission coordinator current use of anticoagulant therapy Non-rheumatic aortic stenosis Essential hypertension Unspecified essential hypertension documented in this encounter Care Teams Chief Technology Officer Relationship Specialty Start Date End Date Denis Platt MD [address] [place] [address] PCP - General Family Medicine 01/14/22 07/18/23 documented as of this encounter
--- OUTSIDE RECORDS SUMMARY | 2024-10-22 06:30 | XMS_ITS | Encounter Summary ---
Author Organization [facility] Address [address] [place] [address] Care Team Providers Care Form Setter Steel Pan Forms Name Role Phone Denis Platt MD Primary Care Provide r Encounter Details Date Type Department Care Team (Late st Contact Info) Description 01/26/2023 Telephone [facility] Cardiology [address] [facility] [address] [facility] [address] [place] [address] Andrade Brown MD [facility] [place] [id number] Social History Tobacco Use Types Packs/Day Years Used Date Smoking Tobacco: Former Cigarettes Q uit: 09/28/1978 Smokeless Tobacco: Never Alcohol Use Standard Drinks/Week Comments Yes 0 (1 standard drink = 0.6 oz pur e alcohol) Comments Unknown Sex and Gender Information Value Date Recorded Sex Assigned at Not on file Legal Sex Female 8:30 AM MASON TENDER Gender Identity Female 10/06/2021 4:28 PM MASON TENDER Sexual Orientation Choose not to disclose 2020 4:28 PM MASON TENDER documented as of this encounter Miscellaneous Notes * Telephone Encounter - Jacque Hitchcock RN - 01/26/2023 9:12 AM CDT Order faxed as requested. * Telephone Encounter - Elif Christina - 01/26/2023 8:45 AM CDT Alice called from [facility] requesting standing INR order be faxed. Contact: documented in this encounter Plan of Treatment Not on file documented as of this encounter Visit Diagnoses Not on filedocumented in this encounter Care Teams Form Setter Steel Pan Forms Relationship Specialty Start Date End Date Denis Platt MD [address] [place] [address] PCP - General Family Medicine 01/14/22 07/18/23 documented as of this encounter
--- OUTSIDE RECORDS SUMMARY | 2024-10-22 06:30 | XMS_ITS | Encounter Summary ---
Author Organization [facility] Address [address] [facility] [facility] [address] [place] [address] Care Team Providers Care Forestry Farm Laborer Name Role Phone Denis Platt MD Primary Care Provide r Encounter Details Date Type Department Care Team (Late st Contact Info) Description 04/14/2022 Telephone [facility] Orthopedics and Sports Medicine [address] [facility] [address] [place] [address] Herber Knott MD [address] [place] [address] [address] [place] [address] Social History Tobacco Use Types Packs/Day Years Used Date Smoking Tobacco: Former Cigarettes Q uit: 09/28/1978 Smokeless Tobacco: Never Alcohol Use Standard Drinks/Week Comments Yes 0 (1 standard drink = 0.6 oz pur e alcohol) Comments Unknown Sex and Gender Information Value Date Recorded Sex Assigned at Not on file Legal Sex Female 8:30 AM ACCOUNT SERVICE REPRESENTATIVE Gender Identity Female 10/06/2021 4:28 PM ACCOUNT SERVICE REPRESENTATIVE Sexual Orientation Choose not to disclose 2020 4:28 PM ACCOUNT SERVICE REPRESENTATIVE documented as of this encounter Miscellaneous Notes * Telephone Encounter - Stephanie Saldaña - 04/14/2022 10:48 AM CDT Padmini with [facility] called stating they still need the op note documented. documented in this encounter Plan of Treatment Not on file documented as of this encounter Visit Diagnoses Not on filedocumented in this encounter Care Teams Forestry Farm Laborer Relationship Specialty Start Date End Date Denis Platt MD [address] [place] [address] PCP - General Family Medicine 01/14/22 07/18/23 documented as of this encounter
--- OUTSIDE RECORDS SUMMARY | 2024-10-22 06:30 | XMS_ITS | Encounter Summary ---
Author Organization [facility] Address [address] [facility] [address] [place] [address] Care Team Providers Care Revenue Stamp Clerk Name Role Phone Denis Platt MD Primary Care Provide r Reason for Visit * Reason Comments Post-op Encounter Details Date Type Department Care Team ([facility] st Contact Info) Description 04/21/2022 11:00 AM CDT Office Visit [facility] Orthopedics and Sports Medicine [address] [facility] [address] [place] [address] Victoria Madison PA [address] [place] [address] [address] [place] [address] 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 [...] on file Legal Sex Female 8:30 AM MOTOR TUNE UP SPECIALIST Gender Identity Female 10/06/2021 4:28 PM MOTOR TUNE UP SPECIALIST Sexual Orientation Choose not to disclose 2020 4:28 PM MOTOR TUNE UP SPECIALIST documented as of this encounter Last [...] 3 added in this encounter Care Teams Revenue Stamp Clerk Relationship Specialty Start Date End Date Denis Platt MD [address] [place], [place] [id number] PCP - General Family Medicine 01/14/22 07/18/23 documented as of this encounter
--- OUTSIDE RECORDS SUMMARY | 2024-10-22 06:30 | XMS_ITS | Encounter Summary ---
Author Organization [facility] Address [address] [facility] [address] [place] [address] Care Team Providers Care Manuscripts Archivist Name Role Phone Denis Platt MD Primary Care Provide r Encounter Details Date Type Department Care Team (Late st Contact Info) Description 03/19/2022 Telephone [facility] Orthopedics and Sports Medicine [address] [facility] [address], [place] [address] Lilly Moncada MA Social History Tobacco Use Types Packs/Day Years Used Date Smoking Tobacco: Former Cigarettes Q uit: 09/28/1978 Smokeless Tobacco: Never Alcohol Use Standard Drinks/Week Comments Yes 0 (1 standard drink = 0.6 oz pur e alcohol) Comments Unknown Sex and Gender Information Value Date Recorded Sex Assigned at Not on file Legal Sex Female 8:30 AM IS SUPPORT ANALYST Gender Identity Female 10/06/2021 4:28 PM IS SUPPORT ANALYST Sexual Orientation Choose not to disclose 2020 4:28 PM IS SUPPORT ANALYST documented as of this encounter Miscellaneous Notes [...] on filedocumented in this encounter Care Teams Manuscripts Archivist Relationship Specialty Start Date End Date Denis Platt MD [address] [place] [address] PCP - General Family Medicine 01/14/22 07/18/23 documented as of this encounter
--- OUTSIDE RECORDS SUMMARY | 2024-10-22 06:30 | XMS_ITS | Encounter Summary ---
Author Organization [facility] Address [address] [address] [place] [address] Care Team Providers Care Bungy Jump Master Name Role Phone Denis Platt MD Primary Care Provide r Encounter Details Date Type Department Care Team (Latest Contact Info) Description 11/11/2022 Anticoagulation Visit [facility] Cardiology [address] [place] [address] Rachel Zhao RN Atrial fibrillation, [...] on file Legal Sex Female 8:30 AM PROMOTIONS EXECUTIVE PRODUCER Gender Identity Female 10/06/2021 4:28 PM PROMOTIONS EXECUTIVE PRODUCER Sexual Orientation Choose not to disclose 2020 4:28 PM PROMOTIONS EXECUTIVE PRODUCER documented as of this encounter Plan of [...] therapy documented in this encounter Care Teams Bungy Jump Master Relationship Specialty Start Date End Date Denis Platt MD [address] [place] [address] PCP - General Family Medicine 01/14/22 07/18/23 documented as of this encounter
--- OUTSIDE RECORDS SUMMARY | 2024-10-22 06:30 | XMS_ITS | Encounter Summary ---
Author Organization [facility] Address [address] [facility] [address] [place] [address] Care Team Providers Care Demand Generation Manager Name Role Phone Denis Platt MD Primary Care Provide r Encounter Details Date Type Department Care Team (Late st Contact Info) Description 01/14/2022 Telephone [facility] Cardiology [address] [facility] [address] [place] [address] Andrade Brown MD [facility] [place] [phone] Social History Tobacco Use Types Packs/Day Years Used Date Smoking Tobacco: Former Cigarettes Q uit: 09/28/1978 Smokeless Tobacco: Never Alcohol Use Standard Drinks/Week Comments Yes 0 (1 standard drink = 0.6 oz pur e alcohol) Comments Unknown Sex and Gender Information Value Date Recorded Sex Assigned at Not on file Legal Sex Female 8:30 AM CAPTION WRITER Gender Identity Female 10/06/2021 4:28 PM CAPTION WRITER Sexual Orientation Choose not to disclose 2020 4:28 PM CAPTION WRITER documented as of this encounter Miscellaneous Notes [...] monitoring documented in this encounter Care Teams Demand Generation Manager Relationship Specialty Start Date End Date Denis Platt MD [address] [place] [address] PCP - General Family Medicine 01/14/22 07/18/23 documented as of this encounter
--- OUTSIDE RECORDS SUMMARY | 2024-10-22 06:30 | XMS_ITS | Encounter Summary ---
Author Organization [facility] Address [address] [place] [address] Care Team Providers Care Director Of Surgery Name Role Phone Denis Platt MD Primary Care Provide r Encounter Details Date Type Department Care Team (Latest Contact Info) Description 02/19/2022 Anticoagulation Visit [facility] Cardiology [address] [place] [address] Jacque Hitchcock RN Atrial fibrillation, [...] on file Legal Sex Female 8:30 AM FASHION EDITOR Gender Identity Female 10/06/2021 4:28 PM FASHION EDITOR Sexual Orientation Choose not to disclose 2020 4:28 PM FASHION EDITOR documented as of this encounter Plan of [...] in this encounter Care Teams Director Of Surgery Relationship Specialty Start Date End Date Denis Platt MD [address] [place] [address] PCP - General Family Medicine 01/14/22 07/18/23 documented as of this encounter
--- OUTSIDE RECORDS SUMMARY | 2024-10-22 06:30 | XMS_ITS | Encounter Summary ---
Author Organization [facility] Address [address] [facility] [address] [place] [address] Care Team Providers Care Manager Laboratory Name Role Phone Denis Platt MD Primary Care Provide r Encounter Details Date Type Department Care Team (Late st Contact Info) Description 01/20/2023 Telephone [facility] Cardiology [address] [facility] [address] [place] [address] Andrade Brown MD [facility] [place] [id number] Social History Tobacco Use Types Packs/Day Years Used Date Smoking Tobacco: Former Cigarettes Q uit: 09/28/1978 Smokeless Tobacco: Never Alcohol Use Standard Drinks/Week Comments Yes 0 (1 standard drink = 0.6 oz pur e alcohol) Comments Unknown Sex and Gender Information Value Date Recorded Sex Assigned at Not on file Legal Sex Female 8:30 AM HOME HEALTH PHYSICAL THERAPIST Gender Identity Female 10/06/2021 4:28 PM HOME HEALTH PHYSICAL THERAPIST Sexual Orientation Choose not to disclose 2020 4:28 PM HOME HEALTH PHYSICAL THERAPIST documented as of this encounter Miscellaneous Notes * Telephone Encounter - Jacque Hitchcock RN - 01/25/2023 3:31 PM CDT Standing order for INR faxed to [facility] as requested. * Telephone Encounter - [...] Lab Routine Atrial fibrillation, unspecified type (HCC) custodial current use of anticoagulant therapy 52 Occurrences starting 01/25/2023 until 01/26/2024 documented as of this encounter Visit Diagnoses Diagnosis Atrial fibrillation, unspecified type (HCC)- Primary custodial current use of anticoagulant therapy documented in this encounter Care Teams Manager Laboratory Relationship Specialty Start Date End Date Denis Platt MD [address] [place] [address] PCP - General Family Medicine 01/14/22 07/18/23 documented as of this encounter
--- OUTSIDE RECORDS SUMMARY | 2024-10-22 06:30 | XMS_ITS | Encounter Summary ---
Author Organization [facility] Address [address] [place] [address] Care Team Providers Care Vice President Name Role Phone Denis Platt MD Primary Care Provide r Encounter Details Date Type Department Care Team (Late st Contact Info) Description 01/15/2022 Telephone [facility] Orthopedics and Sports Medicine [address] [facility] [address] [place] [address] Herber Knott MD [address] [place] [address] [address] [place] [address] Social History Tobacco Use Types Packs/Day Years Used Date Smoking Tobacco: Former Cigarettes Q uit: 09/28/1978 Smokeless Tobacco: Never Alcohol Use Standard Drinks/Week Comments Yes 0 (1 standard drink = 0.6 oz pur e alcohol) Comments Unknown Sex and Gender Information Value Date Recorded Sex Assigned at Not on file Legal Sex Female 8:30 AM PARACHUTE PACKER Gender Identity Female 10/06/2021 4:28 PM PARACHUTE PACKER Sexual Orientation Choose not to disclose 2020 4:28 PM PARACHUTE PACKER documented as of this encounter Miscellaneous Notes [...] on filedocumented in this encounter Care Teams Vice President Relationship Specialty Start Date End Date Denis Platt MD [address] [place] [address] PCP - General Family Medicine 01/14/22 07/18/23 documented as of this encounter
--- OUTSIDE RECORDS SUMMARY | 2024-10-22 06:30 | XMS_ITS | Encounter Summary ---
Author Organization [facility] Address [address] [facility] [address] [place] [address] Care Team Providers Care Wind Turbine Mechanic Name Role Phone Denis Platt MD Primary Care Provide r Encounter Details Date Type Department Care Team (Latest Contact Info) Description 09/11/2022 Anticoagulation Visit [facility] Cardiology [address] [place] [address] Jacque Hitchcock RN Atrial fibrillation, unspecified type (HCC) (Primary Dx); health underwriter current use of anticoagulant therapy Social History Tobacco Use Types Packs/Day Years Used Date Smoking Tobacco: Former Cigarettes Q uit: 09/28/1978 Smokeless Tobacco: Never Alcohol Use Standard Drinks/Week Comments Yes 0 (1 standard drink = 0.6 oz pur e alcohol) Comments Unknown Sex and Gender Information Value Date Recorded Sex Assigned at Not on file Legal Sex Female 8:30 AM ORTHOPEDIC TECH Gender Identity Female 10/06/2021 4:28 PM ORTHOPEDIC TECH Sexual Orientation Choose not to disclose 2020 4:28 PM ORTHOPEDIC TECH documented as of this encounter Plan of [...] therapy documented in this encounter Care Teams Wind Turbine Mechanic Relationship Specialty Start Date End Date Denis Platt MD [address] [place] [address] PCP - General Family Medicine 01/14/22 07/18/23 documented as of this encounter
--- OUTSIDE RECORDS SUMMARY | 2024-10-22 06:30 | XMS_ITS | Encounter Summary ---
Author Organization [facility] Address [address] [facility] [address] [place] [address] Care Team Providers Care Counter Stitcher Name Role Phone Denis Platt MD Primary Care Provide r Reason for Visit * Diagnostic Imaging (Routine) - Closed Specialty Diagnoses / Procedures Referred By Lyndsey farmer Referred To Contact Diagnoses Preoperative clearance Paroxysmal atrial fibrillation (CMS/HCC) (HCC) Essential hypertension PAD (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) (HCC) 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 goal <100 Procedures NM MPI SPECT (Rest and/or Stress) Multiple Studies Andrade Fitzpatrick MD [facility] [address] Phone: tel: fax: [facility] Referral ID Status Reason Start Date Expiration Date Visits Re quested Visits Authorized [id number] Closed 02/18/2022 03/20/2023 1 1 Encounter Details Date Type Department Care Team (Latest Contact Info) Description 02/26/2022 10:15 AM CDT Ancillary Procedure [facility] Cardiology [address] [facility] [address] [place] [address] Preoperative clearance; Paroxysmal atrial fibrillation [...] on file Legal Sex Female 8:30 AM CATALYST OPERATOR GASOLINE Gender Identity Female 10/06/2021 4:28 PM CATALYST OPERATOR GASOLINE Sexual Orientation Choose not to disclose 2020 4:28 PM CATALYST OPERATOR GASOLINE documented as of this encounter Plan of [...] AM CDT Narrative 02/26/2022 1:09 PM CDT [facility] Cardiology [address] [facility] [address], [place] [address] [place] [address] [address] [id number] P:[phone] P:[phone] MPI Imaging Report Patient Name: QUIN HUERTADoug : 89 Study Date: 02/26/2022 9:55:19 AM Gender: F Tech: [facility] Location: [place] Ref.Provider: ANDRADE FITZPATRICK Height(Cm): 165.1 BSA: Weight(Kg): [...] Procedure Note Andrade Fitzpatrick MD - 02/26/2022 [facility] Cardiology [address] [facility] [address], [place] [address] [address], [place] [address] P:[phone] P:[phone] MPI Imaging Report Patient Name: QUIN HUERTA Nydiant ID: [id number] : [id number] Date: 02/26/2022 9:55:19 AM Gender: FAccession #: [id number] Tech: LE, CNMTLocation: [place] Ref.Provider: Shanell FITZPATRICKight(Cm): 165.1 BSA: Weight(Kg): 84.8 [...] millicuries documented in this encounter Care Teams Counter Stitcher Relationship Specialty Start Date End Date Denis Platt MD [address] [place] [address] PCP - General Family Medicine 01/14/22 07/18/23 documented as of this encounter
--- OUTSIDE RECORDS SUMMARY | 2024-10-22 06:31 | XMS_ITS | Encounter Summary ---
Author Organization [facility] Address [address] [facility] [facility] [address] [place] [address] Care Team Providers Care Ski Top Trimmer Name Role Phone Devaughn Macias MD Primary Care Provider Reason for Referral * Diagnostic Imaging (Routine) - Closed Specialty Diagnoses / Procedures Referred By Lyndsey t Referred To Contact Diagnoses Primary osteoarthritis of left hip Procedures FL Fluoro Guided Injection Hip Left Tawny Yung PA Phone: tel: fax: [facility] [address] [place] [address] Referral ID Status Reason Start Date Expiration Date Visits Re quested Visits Authorized [id number] Closed 10/09/2021 11/08/2022 1 1 ISH TUTOR Reason for Visit * Reason Comments Pain Encounter Details Date Type Department Care Team (Late st Contact Info) Description 10/09/2021 9:15 AM SPANISH TUTOR Office Visit [facility] Orthopedics and Sports Medicine [address] [facility] [facility] [address] [place] [address] Tawny Yung PA [address] [place] [address] Primary osteoarthritis of left hip (Primary Dx) Social History Tobacco Use Types Packs/Day Years Used Date Smoking Tobacco: Former Cigarettes Q uit: 09/28/1978 Smokeless Tobacco: Never Alcohol Use Standard Drinks/Week Comments Yes 0 (1 standard drink = 0.6 oz pur e alcohol) Comments Unknown Sex and Gender Information Value Date Recorded Sex Assigned at Not on file Legal Sex Female 8:30 AM SPANISH TUTOR Gender Identity Female 10/06/2021 4:28 PM SPANISH TUTOR Sexual Orientation Choose not to disclose 2020 4:28 PM SPANISH TUTOR documented as of this encounter Last Filed Vital Signs Vital Sign Reading Time Taken Comments Blood Pressure 174/73 10/09/2021 9:11 AM SPANISH TUTOR Pulse 64 10/09/2021 9:11 AM SPANISH TUTOR Temperature - - Respiratory Rate - - Oxygen Saturation - - Inhaled Oxygen Concentration - - Weight 89.2 kg (196 lb 9.6 oz) 10/09/2021 9:11 A M SPANISH TUTOR Height 165.1 cm (5' 5 ) 10/09/2021 9:11 AM SPANISH TUTOR Body Mass Index 32.72 10/09/2021 9:11 AM SPANISH TUTOR documented in this encounter Progress Notes * [...] Herber Knott MD at 10/14/2021 3:28 PM SPANISH TUTOR ISH TUTOR ISH TUTOR documented in this encounter Miscellaneous Notes * Addendum Note - Rito Patel MA - 10/09/2021 9:15 AM CSTAddended by: RITO PATEL on: 10/09/2021 10:51 AM Modules accepted: Orders ISH TUTOR documented in this encounter Plan of Treatment Not on file documented as of this encounter Results * FL Fluoro Guided Injection Hip Left (10/23/2021 2:34 PM SPANISH TUTOR) Anatomical Region Laterality Modality Hip Left Radio Fluoroscop y 10/24/2021 6:25 AM SPANISH TUTOR Narrative 10/24/2021 6:27 AM SPANISH TUTOR EXAMINATION: ? Left hip ??joint injection under [...] AM T: ??10/24/2021 6:27 AM Report ID: [id number] Reading Location: [id number] Procedure Note Grant Carlos MD - 10/24/2021 [...] Grant Carlos M.D. MF: JOHN Report ID: [id number] Reading Location: [id number] Tawny BUSH IMG FLUOROSCOPY PROCEDURE S Final Result documented in this encounter Visit Diagnoses Diagnosis Primary osteoarthritis of left hip- Primary Primary osteoarthritis of left hip documented in this encounter Care Teams Ski Top Trimmer Relationship Specialty Start Date End Date Devaughn Macias MD PCP - General Family Medicine 01/31/20 01/13/22 documented as of this encounter
--- OUTSIDE RECORDS SUMMARY | 2024-10-22 06:31 | XMS_ITS | Encounter Summary ---
Author Organization [facility] Address [address] [place] [address] Care Team Providers Care Canvas Cutter Name Role Phone Devaughn Macias MD Primary Care Provider Reason for Referral * Diagnostic Imaging (Routine) - Closed Specialty Diagnoses / Procedures Referred By Contac t Referred To Contact Diagnoses Primary osteoarthritis of left hip Procedures FL Fluoro Guided Injection Hip Left Tawny Yung PA Phone: tel: fax: [address] [phone] Referral ID Status Reason Start Date Expiration Date Visits Re quested Visits Authorized [id number] Closed 10/09/2021 11/08/2022 1 1 AL WORK ADMINISTRATOR Reason for Visit * Diagnostic Imaging (Routine) - Closed Specialty Diagnoses / Procedures Referred By Lyndsey farmer Referred To Contact Diagnoses Primary osteoarthritis of left hip Procedures FL Fluoro Guided Injection Hip Left Tawny Yung PA Phone: tel: fax: [address] [phone] Referral ID Status Reason Start Date Expiration Date Visits Re quested Visits Authorized [id number] Closed 10/09/2021 11/08/2022 1 1 Encounter Details Date Type Department Care Team (Latest Contact Info) Description 10/23/2021 1:58 PM SOCIAL WORK ADMINISTRATOR - 10/23/2021 11:59 PM SOCIAL WORK ADMINISTRATOR Hospital Encounter [facility] [address] [place] [address] Tawny Yung, RACHELLE [address] [address] Rad, Amh Breast Primary osteoarthritis of left [...] on file Legal Sex Female 8:30 AM SOCIAL WORK ADMINISTRATOR Gender Identity Female 10/06/2021 4:28 PM SOCIAL WORK ADMINISTRATOR Sexual Orientation Choose not to disclose 2020 4:28 PM SOCIAL WORK ADMINISTRATOR documented as of this encounter Medications at [...] Grant Carlos MD - 10/23/2021 2:15 PM SOCIAL WORK ADMINISTRATOR Radiology Brief Post Procedure Note Attending: Dr. Grant Carlos Sedation/Anesthesia: Local Pre-procedure Diagnosis: Left hip OA Post-procedure Diagnosis: Same Procedure Performed: FL FLUORO GUIDED INJECTION HIP LEFT Procedure Findings: Successful Complications: None Estimated Blood Loss: None Specimens: None Condition: Stable Full report to follow. AL WORK ADMINISTRATOR documented in this encounter Plan of Treatment Not on file documented as of this encounter Procedures Procedure Name Priority Date/Time Associated Diagnosis Comments FL FLUORO GUIDED INJECTION HIP LEFT Schedule Routine, Read Routine (OP Routine) 10/23/2021 2:34 PM SOCIAL WORK ADMINISTRATOR Primary osteoarthritis of left hip documented in this encounter Results * FL Fluoro Guided Injection Hip Left (10/23/2021 2:34 PM SOCIAL WORK ADMINISTRATOR) Anatomical Region Laterality Modality Hip Left Radio Fluoroscop y 10/24/2021 6:25 AM SOCIAL WORK ADMINISTRATOR Narrative 10/24/2021 6:27 AM SOCIAL WORK ADMINISTRATOR EXAMINATION: ? Left hip ??joint injection [...] AM T: ??10/24/2021 6:27 AM Report ID: [id number] Reading Location: ??[id number] Procedure Note Grant Carlos MD - 10/24/2021 [...] Grant Carlos M.D. MF: JOHN Report ID: [id number] Reading Location: [place] [address] Tawny BUSH IMG FLUOROSCOPY PROCEDURE S Final [...] 1 dose Contrast Given 10/23/2021 2:17 PM SOCIAL WORK ADMINISTRATOR 1 mL lidocaine PF (XYLOCAINE) 10 mg/mL (1 %) preservative free injection 50 mg 50 mg (5 mL), other, Once, On Lisbeth 10/23/21 at 1445, For 1 dose Given 10/23/2021 2:18 PM SOCIAL WORK ADMINISTRATOR 5 mL methylPREDNISolone acetate (DEPO-medrol) injection 80 mg 80 mg, intra-articular, Once, On Lisbeth 10/23/21 at 1445, For 1 dose Given 10/23/2021 2:18 PM SOCIAL WORK ADMINISTRATOR 80 mg documented in this encounter Care Teams Canvas Cutter Relationship Specialty Start Date End Date Devaughn Macias MD PCP - General Family Medicine 01/31/20 01/13/22 documented as of this encounter
--- OUTSIDE RECORDS SUMMARY | 2024-10-22 06:31 | XMS_ITS | Encounter Summary ---
Author Organization [facility] Address [address] [place] [address] Care Team Providers Care Animal Tech Name Role Phone Devaughn Macias MD Primary Care Provider Reason for Visit * Reason Comments Pain Encounter Details Date Type Department Care Team (Late st Contact Info) Description 09/12/2020 11:30 AM CLIENT ASSOCIATE Office Visit [facility] Orthopedics and Sports Medicine [address] [facility] [place] [phone] Victoria Madison PA [address] [place] [address] [address] [place] [address] Primary osteoarthritis of left hip (Primary Dx) Social History Tobacco Use Types Packs/Day Years Used Date Smoking Tobacco: Former Cigarettes Q uit: 09/28/1978 Smokeless Tobacco: Never Alcohol Use Standard Drinks/Week Comments Yes 0 (1 standard drink = 0.6 oz pur e alcohol) Comments Unknown Sex and Gender Information Value Date Recorded Sex Assigned at Not on file Legal Sex Female 8:30 AM CLIENT ASSOCIATE Gender Identity Female 10/06/2021 4:28 PM CLIENT ASSOCIATE Sexual Orientation Choose not to disclose 2020 4:28 PM CLIENT ASSOCIATE documented as of this encounter Last Filed Vital Signs Vital Sign Reading Time Taken Comments Blood Pressure 190/84 09/12/2020 11:11 AM CLIENT ASSOCIATE Pulse 72 09/12/2020 11:11 AM CLIENT ASSOCIATE Temperature 36.1 ??C (96.9 ??F) 09/12/2020 11:[address] Respiratory Rate - - Oxygen Saturation - - Inhaled Oxygen Concentration - - Weight 88.9 kg (196 lb) 09/12/2020 11:11 AM CLIENT ASSOCIATE Height 165.1 cm (5' 5 ) 09/12/2020 11:11 AM CLIENT ASSOCIATE Body Mass Index 32.62 09/12/2020 11:11 AM CLIENT ASSOCIATE documented in this encounter Progress Notes * [...] Herber Knott MD at 09/12/2020 4:09 PM CLIENT ASSOCIATE NT ASSOCIATE NT ASSOCIATE documented in this encounter Plan of Treatment Not on file documented as of this encounter Visit Diagnoses Diagnosis Primary osteoarthritis of left hip- Primary documented in this encounter Care Teams Animal Tech Relationship Specialty Start Date End Date Devaughn Macias MD PCP - General Family Medicine 01/31/20 01/13/22 documented as of this encounter
--- OUTSIDE RECORDS SUMMARY | 2024-10-22 06:31 | XMS_ITS | Encounter Summary ---
Author Organization [facility] Address [address] [place] [address] Care Team Providers Care Cloth Reeler Name Role Phone Devaughn Macias MD Primary Care Provider Denis Platt MD Primary Care Provide r Encounter Details Date Type Department Care Team (Late st Contact Info) Description 04/02/2021 Orders Only [facility] Information [facility] [address] [place] [address] Scanning, Provider Social History Tobacco Use Types Packs/Day Years Used Date Smoking Tobacco: Former Cigarettes Q uit: 09/28/1978 Smokeless Tobacco: Never Alcohol Use Standard Drinks/Week Comments Yes 0 (1 standard drink = 0.6 oz pur e alcohol) Comments Unknown Sex and Gender Information Value Date Recorded Sex Assigned at Not on file Legal Sex Female 8:30 AM COMMIS CHEF Gender Identity Female 10/06/2021 4:28 PM COMMIS CHEF Sexual Orientation Choose not to disclose 2020 4:28 PM COMMIS CHEF documented as of this encounter Plan of [...] on filedocumented in this encounter Care Teams Cloth Reeler Relationship Specialty Start Date End Date Devaughn Macias MD PCP - General Family Medicine 01/31/20 01/13/22 Denis Platt MD [address] [place] [address] PCP - General Family Medicine 01/14/22 07/18/23 documented as of this encounter
--- OUTSIDE RECORDS SUMMARY | 2024-10-22 06:31 | XMS_ITS | Encounter Summary ---
Author Organization [facility] Address [address] [place] [address] Care Team Providers Care Song Plugger Name Role Phone Devaughn Macias MD Primary Care Provider Encounter Details Date Type Department Care Team (Late st Contact Info) Description 02/08/2020 Telephone [facility] Cardiology [address] [place] [address] Andrade Brown MD [facility] [place] [id number] Social History Tobacco Use Types Packs/Day Years Used Date Smoking Tobacco: Former Cigarettes Q uit: 09/28/1978 Smokeless Tobacco: Never Alcohol Use Standard Drinks/Week Comments Yes 0 (1 standard drink = 0.6 oz pur e alcohol) Comments Unknown Sex and Gender Information Value Date Recorded Sex Assigned at Not on file Legal Sex Female 8:30 AM BUTTON SPINDLER Gender Identity Female 10/06/2021 4:28 PM BUTTON SPINDLER Sexual Orientation Choose not to disclose 2020 4:28 PM BUTTON SPINDLER documented as of this encounter Miscellaneous Notes * Telephone Encounter - Rachel Zhao, RN - 02/08/2020 9:19 AM CDT Called pt back. New standing order for INR faxed to [facility] as requested. * Telephone Encounter - Mandy Zamora - 02/08/2020 9:12 AM CDT Pt called to request a blood work order be faxed to [facility]. 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
--- OUTSIDE RECORDS SUMMARY | 2024-10-22 06:31 | XMS_ITS | Encounter Summary ---
Author Organization [facility] Address 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 [facility] (current) use of anticoagulants [Z79.01] No bleeding [...] home blood pressure monitor Andrade Brown MD, [facility] [facility] documented in this encounter Plan of Treatment Not on file documented as of this encounter Visit Diagnoses Diagnosis PAD (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) (HCC)- Primary Unspecified peripheral vascular disease [facility] current use of anticoagulant therapy Paroxysmal atrial fibrillation (CMS/HCC) (HCC) Atrial fibrillation HTN (hypertension), benign Essential hypertension, benign documented in this encounter Care Teams Director Of Enterprise Architecture Relationship Specialty Start Date End Date Devaughn Macias MD PCP - General Family Medicine 01/31/20 01/13/22 documented as of this encounter
--- OUTSIDE RECORDS SUMMARY | 2024-10-22 06:31 | XMS_ITS | Encounter Summary ---
Author Organization [facility] Address [address] [place] [address] Care Team Providers Care Assembler Name Role Phone Devaughn Macias MD Primary Care Provider Encounter Details Date Type Department Care Team (Latest Contact Info) Description 07/16/2021 Anticoagulation Visit [facility] Cardiology [address] [place] [address] Rachel Zhao RN Atrial fibrillation, unspecified type (HCC) (Primary Dx); detention current use of anticoagulant therapy Social History Tobacco Use Types Packs/Day Years Used Date Smoking Tobacco: Former Cigarettes Q uit: 09/28/1978 Smokeless Tobacco: Never Alcohol Use Standard Drinks/Week Comments Yes 0 (1 standard drink = 0.6 oz pur e alcohol) Comments Unknown Sex and Gender Information Value Date Recorded Sex Assigned at Not on file Legal Sex Female 8:30 AM SHIPYARD PAINTER APPRENTICE Gender Identity Female 10/06/2021 4:28 PM SHIPYARD PAINTER APPRENTICE Sexual Orientation Choose not to disclose 2020 4:28 PM SHIPYARD PAINTER APPRENTICE documented as of this encounter Plan [...] therapy documented in this encounter Care Teams Assembler Relationship Specialty Start Date End Date Devaughn Macias MD PCP - General Family Medicine 01/31/20 01/13/22 documented as of this encounter
--- OUTSIDE RECORDS SUMMARY | 2024-10-22 06:31 | XMS_ITS | Encounter Summary ---
Author Organization [facility] Address [address] [address] Care Team Providers Care Intelligence Senior Sergeant Name Role Phone Devaughn Macias MD Primary Care Provider Reason for Referral * Diagnostic Imaging (Routine) - Closed Specialty Diagnoses / Procedures Referred By Contac t Referred To Contact Diagnoses Left hip pain Primary osteoarthritis of left hip Procedures FL Fluoro Guided Injection Hip Left Kami Lyons PA Phone: tel: fax: [address] [phone] Referral ID Status Reason Start Date Expiration Date Visits Re quested Visits Authorized [id number] Closed 06/07/2020 07/07/2021 1 1 * Diagnostic Imaging (Routine) - Closed Specialty Diagnoses / Procedures Referred By Contac t Referred To Contact Diagnoses Left hip pain Procedures XR Hip Left 2 or 3 Views Kami Lyons PA Phone: tel: fax: Referral ID Status Reason Start Date Expiration Date Visits Re quested Visits Authorized [id number] Closed 06/07/2020 07/07/2021 1 1 Reason for Visit * Reason Comments Pain Encounter Details Date Type Department Care Team (Late st Contact Info) Description 06/07/2020 1:30 PM CDT Office Visit [facility] Orthopedics and Sports Medicine [address] [place] [address] [place] [address] [place] [address] [place] [address] Primary osteoarthritis of left hip (Primary Dx); [...] on file Legal Sex Female 8:30 AM TOW MOTOR OPERATOR Gender Identity Female 10/06/2021 4:28 PM TOW MOTOR OPERATOR Sexual Orientation Choose not to disclose 2020 4:28 PM TOW MOTOR OPERATOR documented as of this encounter Last [...] hip to be done under fluoro at [facility]. She may return to clinic in 3 [...] was obtained. ??Prior to beginning the procedure, [place] Protocol was performed to confirm the patient's [...] was obtained. Prior to beginning the procedure, [place] Protocol was performed to confirm the patient's [...] thigh documented in this encounter Care Teams Intelligence Senior Sergeant Relationship Specialty Start Date End Date eDvaughn Macias MD PCP - General Family Medicine 01/31/20 01/13/22 documented as of this encounter
--- OUTSIDE RECORDS SUMMARY | 2024-10-22 06:31 | XMS_ITS | Encounter Summary ---
Author Organization [facility] Address [address] [place] [address] Care Team Providers Care Customer Care Team Coach Name Role Phone Devaughn Macias MD Primary Care Provider Reason for Referral * Cardiology (Routine) - Closed Specialty Diagnoses / Procedures Referred By Contac t Referred To Contact Diagnoses History of COVID-19 Paroxysmal atrial fibrillation (CMS/HCC) (HCC) HTN (hypertension), benign Procedures Transthoracic Echo Complete W Doppler/CF Ciarra Fitzpatrick MD [address] [facility] [address] [place] [address] Phone: tel: fax: [facility] Referral ID Status Reason Start Date Expiration Date Visits Re quested Visits Authorized [id number] Closed 02/12/2021 03/14/2022 1 1 Reason for Visit * Reason Comments Atrial Fibrillation Carotid Artery Disease Hypertension 6 mo f/u Encounter Details Date Type Department Care Team (Latest Contact Info) Description 02/12/2021 10:15 AM CDT Office Visit [facility] Cardiology [address] [facility] [address] [place] [address] Ciarra Fitzpatrick MD [address] [place] [address] History of COVID-19 (Primary Dx); half-way current use of anticoagulant therapy; Paroxysmal atrial [...] on file Legal Sex Female 8:30 AM FARM EQUIPMENT TECHNICIAN Gender Identity Female 10/06/2021 4:28 PM FARM EQUIPMENT TECHNICIAN Sexual Orientation Choose not to disclose 2020 4:28 PM FARM EQUIPMENT TECHNICIAN documented as of this encounter Last [...] PVI ablation x2 with recent success 3. 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 Low-salt diet Ciarra Fitzpatrick MD, [facility] [facility] documented in this encounter Plan of Treatment Not on file documented as of this encounter Results * TRANSTHORACIC ECHO (TTE) COMPLETE W DOPPLER/CF WO CONTRAST (04/02/2021 9:59 AM CDT) Anatomical Region Laterality Modality Ultrasound 04/02/2021 8:42 AM CDT Narrative 04/02/2021 12:[address] [facility] Cardiology [address], [place] [address] [address] [facility] [address], [place] [address] P:[phone] P:[phone] Echocardiographic Report Patient Name: QUIN HUERTA : [...] Findings: Interpretation Site: Exam was interpreted at [facility]. Left Ventricle: Normal left ventricular systolic function. [...] Procedure Note Prieto Rowell MD - 04/02/2021 [facility] Cardiology [address], [place] [address] [address] [facility] [facility] [address], [place] [address] P:[phone] P:[phone] Echocardiographic Report Patient Name: QUIN HUERTAPatient ID: [id number] : [id number] Date: 04/02/2021 8:42:16 AM Gender: FAccession #: [id number] Tech: GMLocation: [place] Ref.Provider: CIARRA FITZPATRICKHeight(Cm): 165 [...] 0.40 - 0.80 ] m/s MV Decel [id number] [ 150 - 200 ] msec PV Peak Vel1.38 [ 0.40 - 0.80 ] m/s TR Peak Vel2.75 [ 0.40 - 0.80 ] m/s TR Peak PG 30mmHg RVSP38.00 mmHg E'0.09 E/E' 10 Findings: Interpretation Site: Exam was interpreted at [facility]. Left Ventricle: Normal left ventricular systolic function. 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
--- OUTSIDE RECORDS SUMMARY | 2024-10-22 06:31 | XMS_ITS | Encounter Summary ---
Author Organization [facility] Address [address] [place] [address] Care Team Providers Care Bakery Worker Name Role Phone Devaughn Macias MD Primary Care Provider Reason for Visit * Diagnostic Imaging (Routine) - Closed Specialty Diagnoses / Procedures Referred By Lyndsey t Referred To Contact Diagnoses Left knee pain, unspecified chronicity Procedures XR Knee Left 4 or More Views Victoria Madison PA [address] [place] [address] [address] [place] [address] Phone: tel: fax: Referral ID Status Reason Start Date Expiration Date Visits Re quested Visits Authorized [id number] Closed 10/30/2021 11/29/2022 1 1 Encounter Details Date Type Department Care Team (Latest Contact Info) Description 10/30/2021 7:48 AM BUS ATTENDANT - 10/30/2021 11:59 PM BUS ATTENDANT Hospital Encounter [facility] Orthopedics and Sports Medicine [address] [facility] [facility] [address] [place] [phone] Discharge Disposition: Discharge to home or self [...] file Legal Sex Female 8:30 AM BUS ATTENDANT Gender Identity Female 10/06/2021 4:28 PM BUS ATTENDANT Sexual Orientation Choose not to disclose 2020 4:28 PM BUS ATTENDANT documented as of this encounter Medications at [...] Read Routine (OP Routine) 10/30/2021 8:49 AM BUS ATTENDANT Primary osteoarthritis of left knee documented in this encounter Results * XR Knee Left 4 or More Views (10/30/2021 8:49 AM BUS ATTENDANT) Anatomical Region Laterality Modality Lower Extremities, Knee Left Digital Radiography Narrative 10/30/2021 9:37 AM BUS ATTENDANT Radiographs taken of the left knee today reveal moderate degenerative changes with subchondral sclerosis, osteophyte formation, and diminished joint space. Victoria BUSH IMG XR PROCEDURES Fin al Result documented in this encounter Visit Diagnoses Not on filedocumented in this encounter Care Teams Bakery Worker Relationship Specialty Start Date End Date Devaughn Macias MD PCP - General Family Medicine 01/31/20 01/13/22 documented as of this encounter
--- OUTSIDE RECORDS SUMMARY | 2024-10-22 06:31 | XMS_ITS | Encounter Summary ---
Author Organization [facility] Address [address] [facility] [facility] [address] [place] [address] Care Team Providers Care Rubber Roller Grinder Operator Name Role Phone Devaughn Macias MD Primary Care Provider Encounter Details Date Type Department Care Team (Late st Contact Info) Description 10/09/2020 Telephone [facility] Cardiology [address] [facility] [address] [place] [address] Andrade Brown MD [facility] [place] [id number] Social History Tobacco Use Types Packs/Day Years Used Date Smoking Tobacco: Former Cigarettes Q uit: 09/28/1978 Smokeless Tobacco: Never Alcohol Use Standard Drinks/Week Comments Yes 0 (1 standard drink = 0.6 oz pur e alcohol) Comments Unknown Sex and Gender Information Value Date Recorded Sex Assigned at Not on file Legal Sex Female 8:30 AM FLIGHT CONTROL TOWER OPERATOR Gender Identity Female 10/06/2021 4:28 PM FLIGHT CONTROL TOWER OPERATOR Sexual Orientation Choose not to disclose 2020 4:28 PM FLIGHT CONTROL TOWER OPERATOR documented as of this encounter Miscellaneous Notes * Telephone Encounter - Jesica Estrada RN - 10/09/2020 11:16 AM FLIGHT CONTROL TOWER OPERATOR Images from the original note were not included. Spoke with patient,test was in error and Patient had labs drawn again today. MayankQuin akins Matthew Alan, MD 2 hours ago (8:31 AM) My Chart shows results from a test. I had no such test taken. HT CONTROL TOWER OPERATOR documented in this encounter Plan of Treatment Not on file documented as of this encounter Visit Diagnoses Not on filedocumented in this encounter Care Teams Rubber Roller Grinder Operator Relationship Specialty Start Date End Date Devaughn Macias MD PCP - General Family Medicine 01/31/20 01/13/22 documented as of this encounter
--- OUTSIDE RECORDS SUMMARY | 2024-10-22 06:31 | XMS_ITS | Encounter Summary ---
Author Organization [facility] Address [address] [place] [address] Care Team Providers Care Meat Butcher Name Role Phone Devaughn Macias MD Primary Care Provider Encounter Details Date Type Department Care Team (Late st Contact Info) Description 02/12/2021 Telephone [facility] Cardiology [address] [facility] [address] [place] [address] Andrade Brown MD [facility] [place] [id number] Social History Tobacco Use Types Packs/Day Years Used Date Smoking Tobacco: Former Cigarettes Q uit: 09/28/1978 Smokeless Tobacco: Never Alcohol Use Standard Drinks/Week Comments Yes 0 (1 standard drink = 0.6 oz pur e alcohol) Comments Unknown Sex and Gender Information Value Date Recorded Sex Assigned at Not on file Legal Sex Female 8:30 AM MANAGING CONSULTANT Gender Identity Female 10/06/2021 4:28 PM MANAGING CONSULTANT Sexual Orientation Choose not to disclose 2020 4:28 PM MANAGING CONSULTANT documented as of this encounter Miscellaneous Notes * Telephone Encounter - Rosy White RN - 02/12/2021 10:56 AM CDT Pt inr documented in this encounter Plan of Treatment Scheduled Orders Name Type Priority Associated Diagnoses Orde r Schedule Protime-INR Lab Routine 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
--- OUTSIDE RECORDS SUMMARY | 2024-10-22 06:31 | XMS_ITS | Encounter Summary ---
Author Organization [facility] Address [address] [facility] [address] [place] [address] Care Team Providers Care Hotel Concierge Name Role Phone Devaughn Macias MD Primary Care Provider Encounter Details Date Type Department Care Team (Latest Contact Info) Description 10/01/2021 Anticoagulation Visit [facility] Cardiology [address] [place] [address] Rosy White RN Atrial fibrillation, unspecified type (HCC) (Primary Dx); [facility] current use of anticoagulant therapy Social History Tobacco Use Types Packs/Day Years Used Date Smoking Tobacco: Former Cigarettes Q uit: 09/28/1978 Smokeless Tobacco: Never Alcohol Use Standard Drinks/Week Comments Yes 0 (1 standard drink = 0.6 oz pur e alcohol) Comments Unknown Sex and Gender Information Value Date Recorded Sex Assigned at Not on file Legal Sex Female 8:30 AM ESTIMATOR AND DRAFTER Gender Identity Female 10/06/2021 4:28 PM ESTIMATOR AND DRAFTER Sexual Orientation Choose not to disclose 2020 4:28 PM ESTIMATOR AND DRAFTER documented as of this encounter Plan of [...] Diagnosis Atrial fibrillation, unspecified type (HCC)- Primary [facility] current use of anticoagulant therapy documented in this encounter Care Teams Hotel Concierge Relationship Specialty Start Date End Date Devaughn Macias MD PCP - General Family Medicine 01/31/20 01/13/22 documented as of this encounter
--- OUTSIDE RECORDS SUMMARY | 2024-10-22 06:31 | XMS_ITS | Encounter Summary ---
Author Organization [facility] Address [address] [place] [address] Care Team Providers Care Chief Of Surgery Name Role Phone Devaughn Macias MD Primary Care Provider Encounter Details Date Type Department Care Team (Latest Contact Info) Description 09/20/2020 Anticoagulation Visit [facility] Cardiology [address] [place] [address] Jesica Estrada RN [facility] current use of anticoagulant therapy; Atrial fibrillation, [...] on file Legal Sex Female 8:30 AM BARREL STRAIGHTENER Gender Identity Female 10/06/2021 4:28 PM BARREL STRAIGHTENER Sexual Orientation Choose not to disclose 2020 4:28 PM BARREL STRAIGHTENER documented as of this encounter Progress Notes * Jesica Estrada RN - 09/20/2020 3:44 PM CST Opened under wrong patient EL STRAIGHTENER documented in this encounter Plan of Treatment Not on file documented as of this encounter Procedures Procedure Name Priority Date/Time Associated Diagnosis Comments PROTIME-INR Routine 09/20/2020 documented in this encounter Results * (ABNORMAL) Protime-INR (09/20/2020) INR 2.50(A) 0.9 - 1.1 EXTERNAL LAB Blood specimen (specimen) Historical Provider LAB BLOOD ORDERABLES Noris l Result EXTERNAL LAB documented in this encounter 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
--- OUTSIDE RECORDS SUMMARY | 2024-10-22 06:31 | XMS_ITS | Encounter Summary ---
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 [...] on file Legal Sex Female 8:30 AM NIB FINISHER Gender Identity Female 10/06/2021 4:28 PM NIB FINISHER Sexual Orientation Choose not to disclose 2020 4:28 PM NIB FINISHER documented as of this encounter Plan of Treatment Not on file documented as of this encounter Visit Diagnoses Diagnosis Atrial fibrillation (CMS/HCC) (HCC) Atrial fibrillation shelter current use of anticoagulant therapy documented in this encounter Care Teams Commissary Representative Relationship Specialty Start Date End Date Devaughn Macias MD PCP - General Family Medicine 01/31/20 01/13/22 documented as of this encounter
--- OUTSIDE RECORDS SUMMARY | 2024-10-22 06:31 | XMS_ITS | Encounter Summary ---
Author Organization [facility] Address [address] [facility] [place] [address] Care Team Providers Care Geophysical Prospecting Permit Agent Name Role Phone Devaughn Macias MD Primary Care Provider Encounter Details Date Type Department Care Team (Latest Contact Info) Description 01/02/2021 Anticoagulation Visit [facility] Cardiology [address] [place] [address] Jesica Estrada RN Atrial fibrillation, unspecified type (CMS/HCC); assisted [...] file Legal Sex Female 8:30 AM ACCOUNT DEVELOPMENT REPRESENTATIVE Gender Identity Female 10/06/2021 4:28 PM ACCOUNT DEVELOPMENT REPRESENTATIVE Sexual Orientation Choose not to disclose 2020 4:28 PM ACCOUNT DEVELOPMENT REPRESENTATIVE documented as of this encounter Plan [...] Diagnoses Diagnosis Atrial fibrillation, unspecified type (HCC) 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
--- OUTSIDE RECORDS SUMMARY | 2024-10-22 06:31 | XMS_ITS | Encounter Summary ---
Author Organization [facility] Address [address] [facility] [address] [place] [address] Care Team Providers Care Gum Sprayer Name Role Phone Devaughn Macias MD Primary Care Provider Encounter Details Date Type Department Care Team (Latest Contact Info) Description 07/17/2020 Anticoagulation Visit [facility] Cardiology [address] [place] [address] Rachel Zhao RN Atrial fibrillation, unspecified type (CMS/HCC); skilled nursing current use of anticoagulant therapy Social History Tobacco Use Types Packs/Day Years Used Date Smoking Tobacco: Former Cigarettes Q uit: 09/28/1978 Smokeless Tobacco: Never Alcohol Use Standard Drinks/Week Comments Yes 0 (1 standard drink = 0.6 oz pur e alcohol) Comments Unknown Sex and Gender Information Value Date Recorded Sex Assigned at Not on file Legal Sex Female 8:30 AM WEALTH MANAGEMENT MANAGER Gender Identity Female 10/06/2021 4:28 PM WEALTH MANAGEMENT MANAGER Sexual Orientation Choose not to disclose 2020 4:28 PM WEALTH MANAGEMENT MANAGER documented as of this encounter Plan [...] Diagnoses Diagnosis Atrial fibrillation, unspecified type (HCC) skilled nursing current use of anticoagulant therapy documented in this encounter Care Teams Gum Sprayer Relationship Specialty Start Date End Date Devaughn Macias MD PCP - General Family Medicine 01/31/20 01/13/22 documented as of this encounter
--- OUTSIDE RECORDS SUMMARY | 2024-10-22 06:31 | XMS_ITS | Encounter Summary ---
Author Organization [facility] Address [address] [place] [address] Care Team Providers Care Health Plan Advisor Name Role Phone Devaughn Macias MD Primary Care Provider Reason for Visit * Diagnostic Imaging (Routine) - Closed Specialty Diagnoses / Procedures Referred By Lyndsey farmer Referred To Contact Diagnoses Left hip pain Primary osteoarthritis of left hip Procedures [place] Fluoro Guided Injection Hip Left Kami Lyons PA Phone: tel: fax: [address] [address] Referral ID Status Reason Start Date Expiration Date Visits Re quested Visits Authorized [id number] Closed 06/07/2020 07/07/2021 1 1 Encounter Details Date Type Department Care Team (Late st Contact Info) Description 06/26/2020 7:32 AM CDT - 06/26/2020 11:59 PM CDT Hospital Encounter [facility] [address] [place] [address] Herber Knott MD [address] [place] [address] [place] [address] [place] [address] Discharge Disposition: Discharge to home or self care Social History Tobacco Use Types Packs/Day Years Used Date Smoking Tobacco: Former Cigarettes Q uit: 09/28/1978 Smokeless Tobacco: Never Alcohol Use Standard Drinks/Week Comments Yes 0 (1 standard drink = 0.6 oz pur e alcohol) Comments Unknown Sex and Gender Information Value Date Recorded Sex Assigned at Not on file Legal Sex Female 8:30 AM REGIONAL BUSINESS MANAGER Gender Identity Female 10/06/2021 4:28 PM REGIONAL BUSINESS MANAGER Sexual Orientation Choose not to disclose 2020 4:28 PM REGIONAL BUSINESS MANAGER documented as of this encounter Medications at [...] 12.8 9.5 - 13.0 sec [facility] ([facility]) INR 1.1 0.9 - 1.2 [facility] ([facility]) Comment: Interpretive data Oral anticoagulant therapeutic ranges: Venous thromboembolism prophylaxis or treatment: 2.0-3.0 CARDIOLOGY Standard range: 2.0-3.0 High-intensity range: 2.5-3.5 Refer to indication-specific guidelines for appropriate target ranges for prosthetic heart valve replacement. Current interpretive data was last revised on 2019. Blood specimen (specimen) 06/26/2020 8:31 AM CDT 06/26/2020 8:33 AM CDT us Kami BUSH LAB BLOOD ORDERABLE S Final Result [facility] ([facility]) [address] [facility] [place] [address] documented in this encounter Visit Diagnoses Not [...] mg documented in this encounter Care Teams Health Plan Advisor Relationship Specialty Start Date End Date Devaughn Macias MD PCP - General Family Medicine 01/31/20 01/13/22 documented as of this encounter
--- OUTSIDE RECORDS SUMMARY | 2024-10-22 06:31 | XMS_ITS | Encounter Summary ---
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 Social History Tobacco Use Types Packs/Day Years Used Date Smoking Tobacco: Former Cigarettes Q uit: 09/28/1978 Smokeless Tobacco: Never Alcohol Use Standard Drinks/Week Comments Yes 0 (1 standard drink = 0.6 oz pur e alcohol) Comments Unknown Sex and Gender Information Value Date Recorded Sex Assigned at Not on file Legal Sex Female 8:30 AM RECEPTIONIST SECRETARY Gender Identity Female 10/06/2021 4:28 PM RECEPTIONIST SECRETARY Sexual Orientation Choose not to disclose 2020 4:28 PM RECEPTIONIST SECRETARY documented as of this encounter Plan of [...] atrial fibrillation (CMS/HCC) (HCC) Atrial fibrillation senior care current use of anticoagulant therapy documented in this encounter Care Teams Automotive Parts Salesperson Relationship Specialty Start Date End Date Devaughn Macias MD PCP - General Family Medicine 01/31/20 01/13/22 documented as of this encounter
--- OUTSIDE RECORDS SUMMARY | 2024-10-22 06:31 | XMS_ITS | Encounter Summary ---
Author Organization [facility] Address [address] [facility] [facility] [address] [place] [address] Care Team Providers Care Electromechanical Equipment Assembler Name Role Phone Devaughn Macias MD Primary Care Provider Encounter Details Date Type Department Care Team (Latest Contact Info) Description 05/08/[address] [facility] Cardiology [address] [place] [address] Rosy White RN Atrial fibrillation (CMS/HCC); skilled nursing current use of anticoagulant therapy Social History Tobacco Use Types Packs/Day Years Used Date Smoking Tobacco: Former Cigarettes Q uit: 09/28/1978 Smokeless Tobacco: Never Alcohol Use Standard Drinks/Week Comments Yes 0 (1 standard drink = 0.6 oz pur e alcohol) Comments Unknown Sex and Gender Information Value Date Recorded Sex Assigned at Not on file Legal Sex Female 8:30 AM FORKLIFT PICKER Gender Identity Female 10/06/2021 4:28 PM FORKLIFT PICKER Sexual Orientation Choose not to disclose 2020 4:28 PM FORKLIFT PICKER documented as of this encounter Plan of [...] Diagnosis Atrial fibrillation (CMS/HCC) (HCC) Atrial fibrillation skilled nursing current use of anticoagulant therapy documented in this encounter Care Teams Electromechanical Equipment Assembler Relationship Specialty Start Date End Date Devaughn Macias MD PCP - General Family Medicine 01/31/20 01/13/22 documented as of this encounter
--- OUTSIDE RECORDS SUMMARY | 2024-10-22 06:31 | XMS_ITS | Encounter Summary ---
Author Organization [facility] Address [address] [place] [address] Care Team Providers Care Legal Writing Professor Name Role Phone Devaughn Macias MD Primary Care Provider Encounter Details Date Type Department Care Team (Late st Contact Info) Description 12/04/2020 Telephone [facility] Cardiology [address] [facility] [address] [place] [address] Andrade Brown MD [facility] [place] [id number] Social History Tobacco Use Types Packs/Day Years Used Date Smoking Tobacco: Former Cigarettes Q uit: 09/28/1978 Smokeless Tobacco: Never Alcohol Use Standard Drinks/Week Comments Yes 0 (1 standard drink = 0.6 oz pur e alcohol) Comments Unknown Sex and Gender Information Value Date Recorded Sex Assigned at Not on file Legal Sex Female 8:30 AM MICROELECTRONICS TECHNICIAN Gender Identity Female 10/06/2021 4:28 PM MICROELECTRONICS TECHNICIAN Sexual Orientation Choose not to disclose 2020 4:28 PM MICROELECTRONICS TECHNICIAN documented as of this encounter Ordered Prescriptions [...] Oct 2020. Ptwill get blood test tomorrow. OELECTRONICS TECHNICIAN * Telephone Encounter - Khushi Mcelroy - 12/04/2020 3:00 PM CST Received refill for Warfarin, but instead od 90 day supply, she received a 30 day supply. Pharmacy told her that's what we ordered and we will have to send them a new order. Verified pharmacy in chart is correct. OELECTRONICS TECHNICIAN documented in this encounter Plan of [...] documented as of this encounter Care Teams Legal Writing Professor Relationship Specialty Start Date End Date Devaughn Macias MD PCP - General Family Medicine 01/31/20 01/13/22 documented as of this encounter
--- OUTSIDE RECORDS SUMMARY | 2024-10-22 06:31 | XMS_ITS | Encounter Summary ---
Author Organization [facility] Address [address] [facility] [address] [place] [address] Care Team Providers Care Pet Caretaker Name Role Phone Devaughn Macias MD Primary Care Provider Encounter Details Date Type Department Care Team (Late st Contact Info) Description 10/09/2021 Telephone [facility] Orthopedics and Sports Medicine [address] [facility] [address] [address] Blossom Conley MA Social History Tobacco Use Types Packs/Day Years Used Date Smoking Tobacco: Former Cigarettes Q uit: 09/28/1978 Smokeless Tobacco: Never Alcohol Use Standard Drinks/Week Comments Yes 0 (1 standard drink = 0.6 oz pur e alcohol) Comments Unknown Sex and Gender Information Value Date Recorded Sex Assigned at Not on file Legal Sex Female 8:30 AM CUSTOMER MARKETING ASSISTANT Gender Identity Female 10/06/2021 4:28 PM CUSTOMER MARKETING ASSISTANT Sexual Orientation Choose not to disclose 2020 4:28 PM CUSTOMER MARKETING ASSISTANT documented as of this encounter Miscellaneous Notes * Telephone Encounter - Blossom Conley MA - 10/13/2021 9:01 AM CUSTOMER MARKETING ASSISTANT Secondary insurance is a Medicare supplement plan. No auth required. Called and left voicemail for patient with scheduling's number. OMER MARKETING ASSISTANT * Telephone Encounter - Blossom Conley MA - 10/09/2021 10:52 AM CUSTOMER MARKETING ASSISTANT Fluoro guided injection ordered. Working on auth- has secondary insurance of [employer] OMER MARKETING ASSISTANT documented in this encounter Plan of Treatment Not on file documented as of this encounter Visit Diagnoses Not on filedocumented in this encounter Care Teams Pet Caretaker Relationship Specialty Start Date End Date Devaughn Macias MD PCP - General Family Medicine 01/31/20 01/13/22 documented as of this encounter
--- OUTSIDE RECORDS SUMMARY | 2024-10-22 06:31 | XMS_ITS | Encounter Summary ---
Author Organization [facility] Address [address] [facility] [address] [place] [address] Care Team Providers Care Food Service Clerk Name Role Phone Devaughn Macias MD Primary Care Provider Encounter Details Date Type Department Care Team (Latest Contact Info) Description 12/03/2021 Anticoagulation Visit [facility] Cardiology [address] [place] [address] Jacque Hitchcock RN Atrial fibrillation, unspecified type (HCC) (Primary Dx); group home current use of anticoagulant therapy Social History Tobacco Use Types Packs/Day Years Used Date Smoking Tobacco: Former Cigarettes Q uit: 09/28/1978 Smokeless Tobacco: Never Alcohol Use Standard Drinks/Week Comments Yes 0 (1 standard drink = 0.6 oz pur e alcohol) Comments Unknown Sex and Gender Information Value Date Recorded Sex Assigned at Not on file Legal Sex Female 8:30 AM DRAIN TILE MACHINE OPERATOR Gender Identity Female 10/06/2021 4:28 PM DRAIN TILE MACHINE OPERATOR Sexual Orientation Choose not to disclose 2020 4:28 PM DRAIN TILE MACHINE OPERATOR documented as of this encounter [...] documented in this encounter Care Teams Food Service Clerk Relationship Specialty Start Date End Date Devaughn Macias MD PCP - General Family Medicine 01/31/20 01/13/22 documented as of this encounter
--- OUTSIDE RECORDS SUMMARY | 2024-10-22 06:31 | XMS_ITS | Encounter Summary ---
Author Organization [facility] Address [address] [place] [address] Care Team Providers Care Training Facilitator Name Role Phone Devaughn Macias MD Primary Care Provider Encounter Details Date Type Department Care Team (Latest Contact Info) Description 08/28/2021 Anticoagulation Visit [facility] Cardiology [address] [place] [address] Jacque Hitchcock RN Atrial fibrillation, [...] on file Legal Sex Female 8:30 AM TECHNOLOGY ENGINEER Gender Identity Female 10/06/2021 4:28 PM TECHNOLOGY ENGINEER Sexual Orientation Choose not to disclose 2020 4:28 PM TECHNOLOGY ENGINEER documented as of this encounter Plan [...] therapy documented in this encounter Care Teams Training Facilitator Relationship Specialty Start Date End Date Devaughn Macias MD PCP - General Family Medicine 01/31/20 01/13/22 documented as of this encounter
--- OUTSIDE RECORDS SUMMARY | 2024-10-22 06:31 | XMS_ITS | Encounter Summary ---
Author Organization [facility] Address [address] [facility] [address] [place] [address] Care Team Providers Care Feed Adviser Name Role Phone Devaughn Macias MD Primary Care Provider Encounter Details Date Type Department Care Team (Latest Contact Info) Description 02/05/2021 Anticoagulation Visit [facility] Cardiology [address] [place] [address] Rachel Zhao RN Atrial fibrillation, unspecified type (CMS/HCC); nursing [...] on file Legal Sex Female 8:30 AM INSURANCE EXAMINING CLERK Gender Identity Female 10/06/2021 4:28 PM INSURANCE EXAMINING CLERK Sexual Orientation Choose not to disclose 2020 4:28 PM INSURANCE EXAMINING CLERK documented as of this encounter Plan [...] Diagnoses Diagnosis Atrial fibrillation, unspecified type (HCC) nursing home current use of anticoagulant therapy documented in this encounter Care Teams Feed Adviser Relationship Specialty Start Date End Date Devaughn Macias MD PCP - General Family Medicine 01/31/20 01/13/22 documented as of this encounter
--- OUTSIDE RECORDS SUMMARY | 2024-10-22 06:31 | XMS_ITS | Encounter Summary ---
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
--- OUTSIDE RECORDS SUMMARY | 2024-10-22 06:31 | XMS_ITS | Encounter Summary ---
Author Organization [facility] Address [address] [place] [address] Care Team Providers Care Linseed Oil Boiler Name Role Phone Devaughn Macias MD Primary Care Provider Encounter Details Date Type Department Care Team (Latest Contact Info) Description 10/09/2020 Anticoagulation Visit [facility] Cardiology [address] [place] [address] Jesica Estrada RN Atrial fibrillation, unspecified type (CMS/HCC); half-way current use of anticoagulant therapy Social History Tobacco Use Types Packs/Day Years Used Date Smoking Tobacco: Former Cigarettes Q uit: 09/28/1978 Smokeless Tobacco: Never Alcohol Use Standard Drinks/Week Comments Yes 0 (1 standard drink = 0.6 oz pur e alcohol) Comments Unknown Sex and Gender Information Value Date Recorded Sex Assigned at Not on file Legal Sex Female 8:30 AM HOTBED LEVER OPERATOR Gender Identity Female 10/06/2021 4:28 PM HOTBED LEVER OPERATOR Sexual Orientation Choose not to disclose 2020 4:28 PM HOTBED LEVER OPERATOR documented as of this encounter Plan [...] Diagnoses Diagnosis Atrial fibrillation, unspecified type (HCC) 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
--- OUTSIDE RECORDS SUMMARY | 2024-10-22 06:31 | XMS_ITS | Encounter Summary ---
Author Organization [facility] Address [address] [place] [address] Care Team Providers Care Digital Media Associate Name Role Phone Devaughn Macias MD Primary Care Provider Encounter Details Date Type Department Care Team (Late st Contact Info) Description 06/19/2020 Telephone [facility] Orthopedics and Sports Medicine [address] [facility] [address] [facility] [address] [address] [place] [address] [place] [address] Social History Tobacco Use Types Packs/Day Years Used Date Smoking Tobacco: Former Cigarettes Q uit: 09/28/1978 Smokeless Tobacco: Never Alcohol Use Standard Drinks/Week Comments Yes 0 (1 standard drink = 0.6 oz pur e alcohol) Comments Unknown Sex and Gender Information Value Date Recorded Sex Assigned at Not on file Legal Sex Female 8:30 AM TUBE AND ROD STRAIGHTENER Gender Identity Female 10/06/2021 4:28 PM TUBE AND ROD STRAIGHTENER Sexual Orientation Choose not to disclose 2020 4:28 PM TUBE AND ROD STRAIGHTENER documented as of this encounter Miscellaneous Notes [...] on filedocumented in this encounter Care Teams Digital Media Associate Relationship Specialty Start Date End Date Devaughn Macias MD PCP - General Family Medicine 01/31/20 01/13/22 documented as of this encounter
--- OUTSIDE RECORDS SUMMARY | 2024-10-22 06:31 | XMS_ITS | Encounter Summary ---
Author Organization [facility] Healthcare Address [address] [place] [address] Care Team Providers Care Business Architect Name Role Phone Devaughn Macias MD Primary Care Provider Encounter Details Date Type Department Care Team (Late st Contact Info) Description 10/20/2021 Telephone [facility] [address] [place] [id number] Katie Hendrix RN Social History Tobacco Use Types Packs/Day Years Used Date Smoking Tobacco: Former Cigarettes Q uit: 09/28/1978 Smokeless Tobacco: Never Alcohol Use Standard Drinks/Week Comments Yes 0 (1 standard drink = 0.6 oz pur e alcohol) Comments Unknown Sex and Gender Information Value Date Recorded Sex Assigned at Not on file Legal Sex Female 8:30 AM ELECTROPLATING SALES REPRESENTATIVE Gender Identity Female 10/06/2021 4:28 PM ELECTROPLATING SALES REPRESENTATIVE Sexual Orientation Choose not to disclose 2020 4:28 PM ELECTROPLATING SALES REPRESENTATIVE documented as of this encounter Miscellaneous Notes * Telephone Encounter - Katie Hendrix RN - 10/20/2021 11:07 AM ELECTROPLATING SALES REPRESENTATIVE Patient called to let IR know that she was instructed to hold blood thinners for hip injection on 10/23/21. TROPLATING SALES REPRESENTATIVE documented in this encounter Plan of Treatment Not on file documented as of this encounter Visit Diagnoses Not on filedocumented in this encounter Care Teams Business Architect Relationship Specialty Start Date End Date Devaughn Macias MD PCP - General Family Medicine 01/31/20 01/13/22 documented as of this encounter
--- OUTSIDE RECORDS SUMMARY | 2024-10-22 06:31 | XMS_ITS | Encounter Summary ---
Author Organization [facility] Address 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 Social History Tobacco Use Types Packs/Day Years Used Date Smoking Tobacco: Former Cigarettes Q uit: 09/28/1978 Smokeless Tobacco: Never Alcohol Use Standard Drinks/Week Comments Yes 0 (1 standard drink = 0.6 oz pur e alcohol) Comments Unknown Sex and Gender Information Value Date Recorded Sex Assigned at Not on file Legal Sex Female 8:30 AM ADVERTISING PHOTOGRAPHER Gender Identity Female 10/06/2021 4:28 PM ADVERTISING PHOTOGRAPHER Sexual Orientation Choose not to disclose 2020 4:28 PM ADVERTISING PHOTOGRAPHER documented as of this encounter Plan of [...] therapy documented in this encounter Care Teams Sponge Maker Relationship Specialty Start Date End Date Devaughn Macias MD PCP - General Family Medicine 01/31/20 01/13/22 documented as of this encounter
--- OUTSIDE RECORDS SUMMARY | 2024-10-22 06:31 | XMS_ITS | Encounter Summary ---
Author Organization [facility] Healthcare Address [address] [place] [address] Care Team Providers Care Mortgage Loan Originator Name Role Phone Devaughn Macias MD Primary Care Provider Denis Platt MD Primary Care Provide r Gideon Campbell MD Primary Care Provider [phone] Encounter Details Date Type Department Care Team (Late st Contact Info) Description 10/17/2021 Telephone [facility] [address] [place] [address] Katie Hendrix, DORINDA Social History Tobacco Use Types Packs/Day Years Used Date Smoking Tobacco: Former Cigarettes Q uit: 09/28/1978 Smokeless Tobacco: Never Alcohol Use Standard Drinks/Week Comments Yes 0 (1 standard drink = 0.6 oz pur e alcohol) Comments Unknown Sex and Gender Information Value Date Recorded Sex Assigned at Not on file Legal Sex Female 8:30 AM TREE TRIMMER HELPER Gender Identity Female 10/06/2021 4:28 PM TREE TRIMMER HELPER Sexual Orientation Choose not to disclose 2020 4:28 PM TREE TRIMMER HELPER documented as of this encounter Plan of Treatment Not on file documented as of this encounter Visit Diagnoses Not on filedocumented in this encounter Care Teams Mortgage Loan Originator Relationship Specialty Start Date End Date Devaughn Macias MD PCP - General Family Medicine 01/31/20 01/13/22 Denis Platt MD [address] [place] [address] PCP - General Family Medicine 01/14/22 07/18/23 Gideon Campbell MD 2 [facility] [address] [address] PCP - General Family Medicine 07/19/23 documented as of this encounter
--- OUTSIDE RECORDS SUMMARY | 2024-10-22 06:31 | XMS_ITS | Encounter Summary ---
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 Social History Tobacco Use Types Packs/Day Years Used Date Smoking Tobacco: Former Cigarettes Q uit: 09/28/1978 Smokeless Tobacco: Never Alcohol Use Standard Drinks/Week Comments Yes 0 (1 standard drink = 0.6 oz pur e alcohol) Comments Unknown Sex and Gender Information Value Date Recorded Sex Assigned at Not on file Legal Sex Female 8:30 AM LOADER SEMICONDUCTOR DIES Gender Identity Female 10/06/2021 4:28 PM LOADER SEMICONDUCTOR DIES Sexual Orientation Choose not to disclose 2020 4:28 PM LOADER SEMICONDUCTOR DIES documented as of this encounter Plan of [...] therapy documented in this encounter Care Teams Box Stacker Relationship Specialty Start Date End Date Devaughn Macias MD PCP - General Family Medicine 01/31/20 01/13/22 documented as of this encounter
--- OUTSIDE RECORDS SUMMARY | 2024-10-22 06:31 | XMS_ITS | Encounter Summary ---
Author Organization [facility] Address [address] [place] [address] Care Team Providers Care Radio Time Salesperson Name Role Phone Devaughn Macias MD Primary Care Provider Encounter Details Date Type Department Care Team (Late st Contact Info) Description 08/20/2021 Orders Only [facility] Cardiology [address] [place] [address] ProviderPeggy MD [address] [place], [place] [id number] Social History Tobacco Use Types Packs/Day Years Used Date Smoking Tobacco: Former Cigarettes Q uit: 09/28/1978 Smokeless Tobacco: Never Alcohol Use Standard Drinks/Week Comments Yes 0 (1 standard drink = 0.6 oz pur e alcohol) Comments Unknown Sex and Gender Information Value Date Recorded Sex Assigned at Not on file Legal Sex Female 8:30 AM PSYCHIATRIC AIDES TEACHER Gender Identity Female 10/06/2021 4:28 PM PSYCHIATRIC AIDES TEACHER Sexual Orientation Choose not to disclose 2020 4:28 PM PSYCHIATRIC AIDES TEACHER documented as of this encounter Plan [...] filedocumented in this encounter Care Teams Radio Time Salesperson Relationship Specialty Start Date End Date Devaughn Macias MD PCP - General Family Medicine 01/31/20 01/13/22 documented as of this encounter
--- OUTSIDE RECORDS SUMMARY | 2024-10-22 06:31 | XMS_ITS | Encounter Summary ---
Author Organization [facility] Address [address] [place] [address] Care Team Providers Care Dry Cleaning Machine Operator Helper Name Role Phone Devaughn Macias MD Primary Care Provider Reason for Visit * Diagnostic Imaging (Routine) - Closed Specialty Diagnoses / Procedures Referred By Lyndsey farmer Referred To Contact Diagnoses Left hip pain Procedures XR Hip Left 2 or 3 Views Kami Lyons PA Phone: tel: fax: Referral ID Status Reason Start Date Expiration Date Visits Re quested Visits Authorized [id number] Closed 06/07/2020 07/07/2021 1 1 Encounter Details Date Type Department Care Team (Latest Contact Info) Description 06/07/2020 8:06 AM CDT - 06/07/2020 11:59 PM CDT Hospital Encounter [facility] Orthopedics and Sports Medicine [address] [place] [address] [address] [address] Discharge Disposition: Discharge to home [...] file Legal Sex Female 8:30 AM GLASS FINISHER Gender Identity Female 10/06/2021 4:28 PM GLASS FINISHER Sexual Orientation Choose not to disclose 12/27/ 2021 4:28 PM GLASS FINISHER documented as of this encounter Medications at [...] filedocumented in this encounter Care Teams Dry Cleaning Machine Operator Helper Relationship Specialty Start Date End Date Devaughn Macias MD PCP - General Family Medicine 01/31/20 01/13/22 documented as of this encounter
--- OUTSIDE RECORDS SUMMARY | 2024-10-22 06:31 | XMS_ITS | Encounter Summary ---
Author Organization [facility] Medical [facility] Address [address] [place] [address] Care Team Providers Care Trim Installer Name Role Phone Devaughn Macias MD Primary Care Provider Encounter Details Date Type Department Care Team (Latest Contact Info) Description 06/05/[address] 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
--- OUTSIDE RECORDS SUMMARY | 2024-10-22 06:31 | XMS_ITS | Encounter Summary ---
Author Organization [facility] Healthcare Address [address] [place] [address] Care Team Providers Care Museum Docent Name Role Phone Devaughn Macias MD Primary Care Provider Denis Platt MD Primary Care Provide r Gideon Campbell MD Primary Care Provider [phone] Encounter Details Date Type Department Care Team (Late st Contact Info) Description 10/15/2021 Telephone [facility] [address] [place] [address] Katie Hendrix, DORINDA Social History Tobacco Use Types Packs/Day Years Used Date Smoking Tobacco: Former Cigarettes Q uit: 09/28/1978 Smokeless Tobacco: Never Alcohol Use Standard Drinks/Week Comments Yes 0 (1 standard drink = 0.6 oz pur e alcohol) Comments Unknown Sex and Gender Information Value Date Recorded Sex Assigned at Not on file Legal Sex Female 8:30 AM SUPERVISOR ROD PLACING Gender Identity Female 10/06/2021 4:28 PM SUPERVISOR ROD PLACING Sexual Orientation Choose not to disclose 2020 4:28 PM SUPERVISOR ROD PLACING documented as of this encounter Plan of Treatment Not on file documented as of this encounter Visit Diagnoses Not on filedocumented in this encounter Care Teams Museum Docent Relationship Specialty Start Date End Date Devaughn Macias MD PCP - General Family Medicine 01/31/20 01/13/22 Denis Platt MD [address] [place] [address] PCP - General Family Medicine 01/14/22 07/18/23 Gideon Campbell MD 2 [facility] [address] [address] PCP - General Family Medicine 07/19/23 documented as of this encounter
--- OUTSIDE RECORDS SUMMARY | 2024-10-22 06:31 | XMS_ITS | Encounter Summary ---
Author Organization [facility] Address [address] [address] Care Team Providers Care Supervisor Car Installations Name Role Phone Devaughn Macias MD Primary Care Provider Reason for Referral * Procedure (Routine) - Closed Specialty Diagnoses / Procedures Referred By Contac t Referred To Contact Diagnoses Primary osteoarthritis of left knee Procedures Large Joint (Hip, Knee, Shoulder) Injection: L knee Victoria Madison PA [address] [place] [address] Phone: tel: fax: [facility] Referral ID Status Reason Start Date Expiration Date Visits Re quested Visits Authorized [id number] Closed 10/30/2021 11/29/2022 1 1 R READER INSPECTOR * Diagnostic Imaging (Routine) - Closed Specialty Diagnoses / Procedures Referred By Contac t Referred To Contact Diagnoses Left knee pain, unspecified chronicity Procedures XR Knee Left 4 or More Views Victoria Madison PA [address] [place] [address] [place] [address] Phone: tel: fax: Referral ID Status Reason Start Date Expiration Date Visits Re quested Visits Authorized [id number] Closed 10/30/2021 11/29/2022 1 1 R READER INSPECTOR Reason for Visit * Reason Comments Pain Encounter Details Date Type Department Care Team (Late st Contact Info) Description 10/30/2021 9:00 AM METER READER INSPECTOR Office Visit [facility] Orthopedics and Sports Medicine [address] [place] [address] [address] [place] [phone] Victoria Madison PA [address] [place] [address] [address] [place] [address] Primary osteoarthritis of left knee (Primary Dx); [...] on file Legal Sex Female 8:30 AM METER READER INSPECTOR Gender Identity Female 10/06/2021 4:28 PM METER READER INSPECTOR Sexual Orientation Choose not to disclose 2020 4:28 PM METER READER INSPECTOR documented as of this encounter Last Filed Vital Signs Vital Sign Reading Time Taken Comments Blood Pressure 172/77 10/30/2021 8:52 AM METER READER INSPECTOR Pulse 56 10/30/2021 8:52 AM METER READER INSPECTOR Temperature - - Respiratory Rate - - Oxygen Saturation - - Inhaled Oxygen Concentration - - Weight 86.2 kg (190 lb) 10/30/2021 8:52 AM METER READER INSPECTOR Height 165.1 cm (5' 5 ) 10/30/2021 8:52 AM METER READER INSPECTOR Body Mass Index 31.62 10/30/2021 8:52 AM METER READER INSPECTOR documented in this encounter Progress Notes [...] Herber Knott MD at 11/04/2021 3:51 PM METER READER INSPECTOR R READER INSPECTOR R READER INSPECTOR documented in this encounter Plan of Treatment Not on file documented as of this encounter Procedures Procedure Name Priority Date/Time Associated Diagnosis Comments NC ARTHROCENTESIS ASPIR&/INJ MAJOR JT/BURSA W/O US Routine 10/30/2021 9:00 AM METER READER INSPECTOR Primary osteoarthritis of left knee XR KNEE LEFT 4 OR MORE VIEWS Schedule Routine, Read Routine (OP Routine) 10/30/2021 8:49 AM METER READER INSPECTOR Primary osteoarthritis of left knee documented in this encounter Results * NC ARTHROCENTESIS ASPIR&/INJ MAJOR JT/BURSA W/O US (10/30/2021 9:00 AM METER READER INSPECTOR) Narrative Herber Knott MD - 10/30/2021 9:00 AM METER READER INSPECTOR Victoria Madison PA ? 10/30/2021 ??9:44 AM [...] 4 or More Views (10/30/2021 8:49 AM METER READER INSPECTOR) Anatomical Region Laterality Modality Lower Extremities, Knee Left Digital Radiography Narrative 10/30/2021 9:37 AM METER READER INSPECTOR Radiographs taken of the left knee today [...] of Local Anesthesia Given 10/30/2021 9:44 AM METER READER INSPECTOR 3 mL triamcinolone (KENALOG) 40 mg/mL injection 40 mg 40 mg, intra-articular, One-Time Injection, Starting on Lisbeth 10/30/21 at 0944, For 1 doseIndications:Primary osteoarthritis of left knee Given 10/30/2021 9:44 AM METER READER INSPECTOR 40 mg documented in this encounter Care Teams Supervisor Car Installations Relationship Specialty Start Date End Date Devaughn Macias MD PCP - General Family Medicine 01/31/20 01/13/22 documented as of this encounter
--- OUTSIDE RECORDS SUMMARY | 2024-10-22 06:31 | XMS_ITS | Encounter Summary ---
Author Organization [facility] Healthcare Address [address] [place] [address] Care Team Providers Care Ultrasound Coordinator Name Role Phone Devaughn Macias MD Primary Care Provider Denis Platt MD Primary Care Provide r Gideon Campbell MD Primary Care Provider [phone] Encounter Details Date Type Department Care Team (Late st Contact Info) Description 06/18/2020 Telephone [facility] [address] [place] [address] Jagdish Ortega RT Social History Tobacco Use Types Packs/Day Years Used Date Smoking Tobacco: Former Cigarettes Q uit: 09/28/1978 Smokeless Tobacco: Never Alcohol Use Standard Drinks/Week Comments Yes 0 (1 standard drink = 0.6 oz pur e alcohol) Comments Unknown Sex and Gender Information Value Date Recorded Sex Assigned at Not on file Legal Sex Female 8:30 AM DUCT LAYER SUPERVISOR Gender Identity Female 10/06/2021 4:28 PM DUCT LAYER SUPERVISOR Sexual Orientation Choose not to disclose 2020 4:28 PM DUCT LAYER SUPERVISOR documented as of this encounter Plan of Treatment Not on file documented as of this encounter Visit Diagnoses Not on filedocumented in this encounter Care Teams Ultrasound Coordinator Relationship Specialty Start Date End Date Devaughn Macias MD PCP - General Family Medicine 01/31/20 01/13/22 Denis Platt MD [address] [place] [address] PCP - General Family Medicine 01/14/22 07/18/23 Gideon Campbell MD [address] [facility] [address] [place] [address] PCP - General Family Medicine 07/19/23 documented as of this encounter
--- OUTSIDE RECORDS SUMMARY | 2024-10-22 06:31 | XMS_ITS | Encounter Summary ---
Author Organization [facility] Medical Group Address [address] [place] [address] Care Team Providers Care Supervisor Production Name Role Phone Devaughn Macias MD Primary Care Provider Reason for Visit * Reason Comments Peripheral Artery Disease Atrial Fibrillation 6 mo f/u Encounter Details Date Type Department Care Team (Latest Contact Info) Description 08/20/2021 9:45 AM TIN STACKER Office Visit [facility] Medical [facility] Cardiology [address] [facility] [address] [place] [address] Andrade Brown MD [address] [address] Non-rheumatic aortic stenosis (Primary Dx); HTN (hypertension), benign; PAD (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) ([facility]/HCC) (HCC); tank terminal gauger current use of anticoagulant therapy; 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 [...] on file Legal Sex Female 8:30 AM TIN STACKER Gender Identity Female 10/06/2021 4:28 PM TIN STACKER Sexual Orientation Choose not to disclose 2020 4:28 PM TIN STACKER documented as of this encounter Last Filed Vital Signs Vital Sign Reading Time Taken Comments Blood Pressure 112/62 08/20/2021 9:38 AM TIN STACKER Pulse 60 08/20/2021 9:38 AM TIN STACKER Temperature - - Respiratory Rate - - Oxygen Saturation 98% 08/20/2021 9:38 AM TIN STACKER Inhaled Oxygen Concentration - - Weight 87.1 kg (192 lb) 08/20/2021 9:38 AM TIN STACKER Height 165.1 cm (5' 5 ) 08/20/2021 9:38 AM TIN STACKER Body Mass Index 31.95 08/20/2021 9:38 AM TIN STACKER documented in this encounter Progress Notes * [...] PVI ablation x2 with recent success 3. tank terminal gauger (current) use of anticoagulants [Z79.01] No bleeding [...] clinically indicated. Low-salt diet Andrade Brown MD, [facility] STACKER documented in this encounter Plan of Treatment Not on file documented as of this encounter Visit Diagnoses Diagnosis Non-rheumatic aortic stenosis- Primary HTN (hypertension), benign Essential hypertension, benign PAD (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) (HCC) Unspecified peripheral vascular disease tank terminal gauger current use of anticoagulant therapy 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 goal <100 Other and unspecified hyperlipidemia Left carotid bruit documented in this encounter Care Teams Supervisor Production Relationship Specialty Start Date End Date Devaughn Macias MD PCP - General Family Medicine 01/31/20 01/13/22 documented as of this encounter
--- OUTSIDE RECORDS SUMMARY | 2024-10-22 06:31 | XMS_ITS | Encounter Summary ---
Author Organization [facility] Medical [facility] Address [address] [place] [address] Care Team Providers Care Gifted Teacher Name Role Phone Devaughn Macias MD Primary Care Provider Encounter Details Date Type Department Care Team (Latest Contact Info) Description 12/05/2020 Anticoagulation Visit [facility] Cardiology [address] [place] [address] Rosy White RN Atrial fibrillation, unspecified type (CMS/HCC); correction [...] on file Legal Sex Female 8:30 AM KEY BED INSTALLER Gender Identity Female 10/06/2021 4:28 PM KEY BED INSTALLER Sexual Orientation Choose not to disclose 2020 4:28 PM KEY BED INSTALLER documented as of this encounter Plan of [...] Diagnoses Diagnosis Atrial fibrillation, unspecified type (HCC) 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
--- OUTSIDE RECORDS SUMMARY | 2024-10-22 06:31 | XMS_ITS | Encounter Summary ---
Author Organization [facility] Healthcare Address [address] [place] [address] Care Team Providers Care Ux Research Associate Name Role Phone Devaughn Macias MD Primary Care Provider Encounter Details Date Type Department Care Team (Late st Contact Info) Description 06/26/2020 8:15 AM CDT [address] [address] Social History Tobacco Use Types Packs/Day Years Used Date Smoking Tobacco: Former Cigarettes Q uit: 09/28/1978 Smokeless Tobacco: Never Alcohol Use Standard Drinks/Week Comments Yes 0 (1 standard drink = 0.6 oz pur e alcohol) Comments Unknown Sex and Gender Information Value Date Recorded Sex Assigned at Not on file Legal Sex Female 8:30 AM PATENT ATTORNEY Gender Identity Female 10/06/2021 4:28 PM PATENT ATTORNEY Sexual Orientation Choose not to disclose 2020 4:28 PM PATENT ATTORNEY documented as of this encounter Plan of Treatment Not on file documented as of this encounter Visit Diagnoses Not on filedocumented in this encounter Care Teams Ux Research Associate Relationship Specialty Start Date End Date Devaughn Macias MD PCP - General Family Medicine 01/31/20 01/13/22 documented as of this encounter
--- OUTSIDE RECORDS SUMMARY | 2024-10-22 06:31 | XMS_ITS | Encounter Summary ---
Author Organization [facility] Address [address] [place] [address] Care Team Providers Care Business Unit Leader Name Role Phone Devaughn Macias MD Primary Care Provider Reason for Visit * Cardiology (Routine) - Closed Specialty Diagnoses / Procedures Referred By Contac t Referred To Contact Diagnoses History of COVID-19 Paroxysmal atrial fibrillation (CMS/HCC) (HCC) HTN (hypertension), benign Procedures Transthoracic Echo Complete W Doppler/CF Ciarra Fitzpatrick MD [address] [address] Phone: tel: fax: [facility] Referral ID Status Reason Start Date Expiration Date Visits Re quested Visits Authorized [id number] Closed 02/12/2021 03/14/2022 1 1 Encounter Details Date Type Department Care Team (Latest Contact Info) Description 04/02/2021 9:15 AM CDT [address] [facility] Cardiology [address] [place] [address] History of COVID-19; Paroxysmal atrial [...] on file Legal Sex Female 8:30 AM AREA COORDINATOR Gender Identity Female 10/06/2021 4:28 PM AREA COORDINATOR Sexual Orientation Choose not to disclose 2020 4:28 PM AREA COORDINATOR documented as of this encounter Plan [...] CDT Narrative 04/02/2021 12:[address] [facility] Cardiology [address] [facility] [address], [place] [address] [address] [facility] [address], [place] [address] P:[phone] P:[phone] Echocardiographic Report Patient Name: QUIN HUERTA : [id number] Study Date: 04/02/2021 8:42:16 AM Gender: F Tech: Location: [place] Ref.Provider: CIARRA FITZPATRICK Height(Cm): 165 BSA: 1.94 [...] Interpretation Site: Exam was interpreted at [facility]. Left Ventricle: Normal left ventricular systolic function. [...] Note Prieto Rowell MD - 04/02/2021 [facility] Cardiology [address] [facility] [address] [address] [address] [facility] [address], [place] [address] P:[phone] P:[phone] Echocardiographic Report Patient Name: QUIN HUERTAPatient ID: [id number] : [id number] Date: 04/02/2021 8:42:16 AM Gender: FAccession #: [id number] Tech: GMLocation: [place] Ref.Provider: CIARRA FITZPATRICKHeight(Cm): 165 BSA: 1.94Weight(Kg): 86.64 [...] 0.40 - 0.80 ] m/s MV Decel [id number] [ 150 - 200 ] msec PV Peak Vel1.38 [ 0.40 - 0.80 ] m/s TR Peak Vel2.75 [ 0.40 - 0.80 ] m/s TR Peak PG 30mmHg RVSP38.00 mmHg E'0.09 E/E' 10 Findings: Interpretation Site: Exam was interpreted at [facility]. Left Ventricle: Normal left ventricular systolic function. [...] benign documented in this encounter Care Teams Business Unit Leader Relationship Specialty Start Date End Date Devaughn Macias MD PCP - General Family Medicine 01/31/20 01/13/22 documented as of this encounter
--- OUTSIDE RECORDS SUMMARY | 2024-10-22 06:31 | XMS_ITS | Encounter Summary ---
Author Organization [facility] Address [address] [place] [address] Care Team Providers Care Oracle Consultant Name Role Phone Devaughn Macias MD Primary Care Provider Encounter Details Date Type Department Care Team (Latest Contact Info) Description 04/30/2021 Anticoagulation Visit [facility] Cardiology [address] [place] [address] Jesica Estrada RN Atrial fibrillation, [...] on file Legal Sex Female 8:30 AM MUNICIPAL BOND TRADER Gender Identity Female 10/06/2021 4:28 PM MUNICIPAL BOND TRADER Sexual Orientation Choose not to disclose 2020 4:28 PM MUNICIPAL BOND TRADER documented as of this encounter Plan of [...] Diagnosis Atrial fibrillation, 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
--- OUTSIDE RECORDS SUMMARY | 2024-10-22 06:31 | XMS_ITS | Encounter Summary ---
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 Social History Tobacco Use Types Packs/Day Years Used Date Smoking Tobacco: Former Cigarettes Q uit: 09/28/1978 Smokeless Tobacco: Never Alcohol Use Standard Drinks/Week Comments Yes 0 (1 standard drink = 0.6 oz pur e alcohol) Comments Unknown Sex and Gender Information Value Date Recorded Sex Assigned at Not on file Legal Sex Female 8:30 AM CONTRACT NEGOTIATOR Gender Identity Female 10/06/2021 4:28 PM CONTRACT NEGOTIATOR Sexual Orientation Choose not to disclose 2020 4:28 PM CONTRACT NEGOTIATOR documented as of this encounter Plan of [...] Diagnosis Atrial fibrillation (CMS/HCC) (HCC) Atrial fibrillation [facility] current use of anticoagulant therapy documented in this encounter Care Teams Information Security Associate Relationship Specialty Start Date End Date Devaughn Macias MD PCP - General Family Medicine 01/31/20 01/13/22 documented as of this encounter
--- OUTSIDE RECORDS SUMMARY | 2024-10-22 06:31 | XMS_ITS | Encounter Summary ---
Author Organization [facility] Address [address] [place] [address] Care Team Providers Care Automotive Services Manager Name Role Phone Devaughn Macias MD Primary Care Provider Encounter Details Date Type Department Care Team (Late st Contact Info) Description 10/16/2021 Telephone [facility] Cardiology [address] [facility] [address] [place] [address] Andrade Brown MD [facility] [place] [id number] Social History Tobacco Use Types Packs/Day Years Used Date Smoking Tobacco: Former Cigarettes Q uit: 09/28/1978 Smokeless Tobacco: Never Alcohol Use Standard Drinks/Week Comments Yes 0 (1 standard drink = 0.6 oz pur e alcohol) Comments Unknown Sex and Gender Information Value Date Recorded Sex Assigned at Not on file Legal Sex Female 8:30 AM AIR DISPATCHER Gender Identity Female 10/06/2021 4:28 PM AIR DISPATCHER Sexual Orientation Choose not to disclose 2020 4:28 PM AIR DISPATCHER documented as of this encounter Miscellaneous Notes * Telephone Encounter - Rosy White RN - 10/16/2021 1:32 PM CST No significant carotid disease bilateral. Spoke w/ pt and reviewed results above per MAF. Pt verbalized understanding. KK/VW DISPATCHER documented in this encounter Plan of Treatment Not on file documented as of this encounter Visit Diagnoses Not on filedocumented in this encounter Care Teams Automotive Services Manager Relationship Specialty Start Date End Date Devaughn Macias MD PCP - General Family Medicine 01/31/20 01/13/22 documented as of this encounter
--- OUTSIDE RECORDS SUMMARY | 2024-10-22 06:31 | XMS_ITS | Encounter Summary ---
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 [...] on file Legal Sex Female 8:30 AM DENTAL FINANCIAL COORDINATOR Gender Identity Female 10/06/2021 4:28 PM DENTAL FINANCIAL COORDINATOR Sexual Orientation Choose not to disclose 2020 4:28 PM DENTAL FINANCIAL COORDINATOR documented as of this encounter Plan [...] Diagnosis Atrial fibrillation, unspecified type (HCC)- 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
--- OUTSIDE RECORDS SUMMARY | 2024-10-22 06:32 | XMS_ITS | Encounter Summary ---
Author Organization [facility] Care Team Providers Care Nitroglycerin Distributor Name Role Phone Kali Hunt MD Primary Care Provider [phone] Encounter Details Date Type Department Care Team [...] on file Legal Sex Female 8:30 AM FURNITURE UPHOLSTERER Gender Identity Female 10/06/2021 4:28 PM FURNITURE UPHOLSTERER Sexual Orientation Choose not to disclose 2020 4:28 PM FURNITURE UPHOLSTERER documented as of this encounter Plan of Treatment Not on file documented as of this encounter Visit Diagnoses Not on filedocumented in this encounter Care Teams Nitroglycerin Distributor Relationship Specialty Start Date End Date Kali Hunt MD [address] [address] PCP - General Family Medicine 02/08/19 01/30/20 documented as of this encounter
--- OUTSIDE RECORDS SUMMARY | 2024-10-22 06:32 | XMS_ITS | Encounter Summary ---
Author Organization [facility] Address [address] [place] [address] Care Team Providers Care Laborer Tanbark Name Role Phone Priscilla Barrera MD Primary Care Provider [phone] Encounter Details Date Type Department Care Team (Late st Contact Info) Description 04/27/2018 Telephone [facility] [address] [address] [address] [place] [address] Andrade Brown MD [facility] [place] [address] Social History Tobacco Use Types Packs/Day Years Used Date Smoking Tobacco: Former Smokeless Tobacco: Never Alcohol Use Standard Drinks/Week Comments Yes 0 (1 standard drink = 0.6 oz pur e alcohol) Comments Unknown Sex and Gender Information Value Date Recorded Sex Assigned at Not on file Legal Sex Female 8:30 AM SHELL FISHERMAN Gender Identity Female 10/06/2021 4:28 PM SHELL FISHERMAN Sexual Orientation Choose not to disclose 2020 4:28 PM SHELL FISHERMAN documented as of this encounter Miscellaneous Notes * Telephone Encounter - Jacque Herrera RN - 04/27/2018 12:04 PM CDT Called patient with INR result. States that [facility] never received standing order. Order refaxed to [facility] [phone]. documented in this encounter Plan of Treatment Not on file documented as of this encounter Visit Diagnoses Not on filedocumented in this encounter Care Teams Laborer Tanbark Relationship Specialty Start Date End Date Priscilla Barrera MD [address] [place] [address] PCP - General 01/08/17 02/07/19 documented as of this encounter
--- OUTSIDE RECORDS SUMMARY | 2024-10-22 06:32 | XMS_ITS | Encounter Summary ---
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 current use of anticoagulant therapy Social History Tobacco Use Types Packs/Day Years Used Date Smoking Tobacco: Former Cigarettes Q uit: 09/28/1978 Smokeless Tobacco: Never Alcohol Use Standard Drinks/Week Comments Yes 0 (1 standard drink = 0.6 oz pur e alcohol) Comments Unknown Sex and Gender Information Value Date Recorded Sex Assigned at Not on file Legal Sex Female 8:30 AM SHEET SEWER Gender Identity Female 10/06/2021 4:28 PM SHEET SEWER Sexual Orientation Choose not to disclose 2020 4:28 PM SHEET SEWER documented as of this encounter Plan of [...] atrial fibrillation (CMS/HCC) (HCC) 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
--- OUTSIDE RECORDS SUMMARY | 2024-10-22 06:32 | XMS_ITS | Encounter Summary ---
Author Organization [facility] Address [address] [facility] [address] [place] [address] Care Team Providers Care Engineering Psychologist Name Role Phone Devaughn Macias MD Primary Care Provider Reason for Visit * Reason Comments Hyperlipidemia Hypertension Peripheral Artery Disease 6 mo f/u Encounter Details Date Type Department Care Team (Latest Contact Info) Description 01/31/2020 9:45 AM CDT Telemedicine [facility] Cardiology [address] [place] [address] Andrade Brown MD [address] [address] PAD (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/HCC) (Primary Dx); 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 goal <100; 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 MCC (current) use of anticoagulants [Z79.01] No bleeding problems 4. PAD (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/HCC) Mild femoral disease 5. 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 goal <100 6. HTN (hypertension), benign At goal 7.. Mild carotid artery disease PLAN/RECOMMENDATIONS She is stable. I recommend continue her current cardiac regimen without change and I will see her back in 6 months or sooner as clinically indicated. Andrade Brown MD, [facility] This was a telemedicine visit with Quin Talley which took place via Telephone. 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
--- OUTSIDE RECORDS SUMMARY | 2024-10-22 06:32 | XMS_ITS | Encounter Summary ---
Author Organization [facility] Address [address] [facility] [address] [facility] [address] [place] [address] Care Team Providers Care Small Engine Mechanic Name Role Phone Priscilla Barrera MD Primary Care Provider [phone] Encounter Details Date Type Department Care Team (Latest Contact Info) Description 08/10/2018 Anticoagulation Visit [facility] [address] [facility] [address] [place] [address] Andrade Brown MD [facility] [place] [address] Paroxysmal atrial fibrillation (CMS/HCC); intermediate current use of anticoagulant therapy Social History Tobacco Use Types Packs/Day Years Used Date Smoking Tobacco: Former Smokeless Tobacco: Never Alcohol Use Standard Drinks/Week Comments Yes 0 (1 standard drink = 0.6 oz pur e alcohol) Comments Unknown Sex and Gender Information Value Date Recorded Sex Assigned at Not on file Legal Sex Female 8:30 AM BEDSPREAD SEAMER Gender Identity Female 10/06/2021 4:28 PM BEDSPREAD SEAMER Sexual Orientation Choose not to disclose 2020 4:28 PM BEDSPREAD SEAMER documented as of this encounter Plan of [...] therapy documented in this encounter Care Teams Small Engine Mechanic Relationship Specialty Start Date End Date Priscilla Barrera MD [address] [place] [address] PCP - General 01/08/17 02/07/19 documented as of this encounter
--- OUTSIDE RECORDS SUMMARY | 2024-10-22 06:32 | XMS_ITS | Encounter Summary ---
Author Organization [facility] Address [address] [place] [address] Care Team Providers Care Electrician Name Role Phone Kali Hunt MD Primary Care Provider Encounter Details Date Type Department Care Team (Latest Contact Info) Description 06/28/2019 Anticoagulation Visit [facility] [address] [place] [address] Andrade Brown MD [address] [place] [address] Paroxysmal atrial fibrillation (CMS/HCC); correction current use of anticoagulant therapy Social History Tobacco Use Types Packs/Day Years Used Date Smoking Tobacco: Former Cigarettes Q uit: 09/28/1978 Smokeless Tobacco: Never Alcohol Use Standard Drinks/Week Comments Yes 0 (1 standard drink = 0.6 oz pur e alcohol) Comments Unknown Sex and Gender Information Value Date Recorded Sex Assigned at Not on file Legal Sex Female 8:30 AM HAT BRIM AND CROWN LAMINATING OPERATOR Gender Identity Female 10/06/2021 4:28 PM HAT BRIM AND CROWN LAMINATING OPERATOR Sexual Orientation Choose not to disclose 2020 4:28 PM HAT BRIM AND CROWN LAMINATING OPERATOR documented as of this encounter Plan of Treatment Not on file documented as of this encounter Procedures Procedure Name Priority Date/Time Associated Diagnosis Comments PROTIME-INR Routine 06/28/2019 documented in this encounter Results * (ABNORMAL) Protime-INR (06/28/2019) INR 1.97(A) 0.9 - 1.1 EXTERNAL LAB Blood specimen (specimen) us [facility] Provider LAB BLOOD ORDERABLES Noris l Result EXTERNAL LAB documented in this encounter Visit Diagnoses Diagnosis Paroxysmal atrial fibrillation (CMS/HCC) (HCC) Atrial fibrillation correction current use of anticoagulant therapy documented in this encounter Care Teams Electrician Relationship Specialty Start Date End Date Kali Hunt MD [address] [address] PCP - General Family Medicine 02/08/19 01/30/20 documented as of this encounter
--- OUTSIDE RECORDS SUMMARY | 2024-10-22 06:32 | XMS_ITS | Encounter Summary ---
Author Organization [facility] Address [address] [place] [address] Care Team Providers Care Stock Worker Name Role Phone Kali Hunt MD Primary Care Provider [phone] Devaughn Macias MD Primary Care Provider Encounter Details Date Type Department Care Team (Late st Contact Info) Description 10/18/2019 Orders Only [facility] Information Management [address] [place] [address] Scanning, Provider Social History Tobacco Use Types Packs/Day Years Used Date Smoking Tobacco: Former Cigarettes Q uit: 09/28/1978 Smokeless Tobacco: Never Alcohol Use Standard Drinks/Week Comments Yes 0 (1 standard drink = 0.6 oz pur e alcohol) Comments Unknown Sex and Gender Information Value Date Recorded Sex Assigned at Not on file Legal Sex Female 8:30 AM ACCOUNTS PAYABLE ASSOCIATE Gender Identity Female 10/06/2021 4:28 PM ACCOUNTS PAYABLE ASSOCIATE Sexual Orientation Choose not to disclose 2020 4:28 PM ACCOUNTS PAYABLE ASSOCIATE documented as of this encounter Plan of Treatment Not on file documented as of this encounter Procedures Procedure Name Priority Date/Time Associated Diagnosis Comments SCAN - LABS 10/18/2019 documented in this encounter Results * SCAN - LABS (10/18/2019) us Provider Scanning Final Result documented in this encounter Visit Diagnoses Not on filedocumented in this encounter Care Teams Stock Worker Relationship Specialty Start Date End Date Kali Hunt MD [address] [place] [address] PCP - General Family Medicine 02/08/19 01/30/20 Devaughn Macias MD [address] [place] [address] PCP - General Family Medicine 01/31/20 01/13/22 documented as of this encounter
--- OUTSIDE RECORDS SUMMARY | 2024-10-22 06:32 | XMS_ITS | Encounter Summary ---
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 Social History Tobacco Use Types Packs/Day Years Used Date Smoking Tobacco: Former Smokeless Tobacco: Never Alcohol Use Standard Drinks/Week Comments Yes 0 (1 standard drink = 0.6 oz pur e alcohol) Comments Unknown Sex and Gender Information Value Date Recorded Sex Assigned at Not on file Legal Sex Female 8:30 AM HYDRAULIC TESTER Gender Identity Female 10/06/2021 4:28 PM HYDRAULIC TESTER Sexual Orientation Choose not to disclose 2020 4:28 PM HYDRAULIC TESTER documented as of this encounter Plan [...] therapy documented in this encounter Care Teams Forest Fire Specialist Supervisor Relationship Specialty Start Date End Date Priscilla Barrera MD [address] [place] [address] PCP - General 01/08/17 02/07/19 documented as of this encounter
--- OUTSIDE RECORDS SUMMARY | 2024-10-22 06:32 | XMS_ITS | Encounter Summary ---
Author Organization [facility] Address [address] [place] [address] Care Team Providers Care Trimmer Hand Name Role Phone Priscilla Barrera MD Primary Care Provider Encounter Details Date Type Department Care Team (Latest Contact Info) Description 07/06/2018 Anticoagulation Visit [facility] [address] [place] [phone] Andrade Brown MD [facility] [place] [address] Paroxysmal atrial fibrillation (CMS/HCC); [facility] current use of anticoagulant therapy Social History Tobacco Use Types Packs/Day Years Used Date Smoking Tobacco: Former Smokeless Tobacco: Never Alcohol Use Standard Drinks/Week Comments Yes 0 (1 standard drink = 0.6 oz pur e alcohol) Comments Unknown Sex and Gender Information Value Date Recorded Sex Assigned at Not on file Legal Sex Female 8:30 AM DRIVERS' CASH CLERK Gender Identity Female 10/06/2021 4:28 PM DRIVERS' CASH CLERK Sexual Orientation Choose not to disclose 2020 4:28 PM DRIVERS' CASH CLERK documented as of this encounter Plan [...] therapy documented in this encounter Care Teams Trimmer Hand Relationship Specialty Start Date End Date Priscilla Barrera MD [address] [place] [address] PCP - General 01/08/17 02/07/19 documented as of this encounter
--- OUTSIDE RECORDS SUMMARY | 2024-10-22 06:32 | XMS_ITS | Encounter Summary ---
Author Organization [facility] Medical [facility] Address [address] [place] [address] Care Team Providers Care Audio Recording Engineer Name Role Phone Kali Hunt MD Primary Care Provider [phone] Reason for Visit * Reason Comments Atrial Fibrillation Hyperlipidemia Peripheral Artery Disease Carotid Artery Disease 6 mo f/u Encounter Details Date Type Department Care Team (Latest Contact Info) Description 02/08/2019 10:15 AM CDT Office Visit [facility] [address] [facility] [address] [place] [address] Andrade Brown MD [facility] [address] PAD (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/HCC) (Primary Dx); Paroxysmal atrial fibrillation (CMS/HCC); HTN (hypertension), benign; senior living current use of anticoagulant therapy; [...] on file Legal Sex Female 8:30 AM JALOUSIES INSTALLER Gender Identity Female 10/06/2021 4:28 PM JALOUSIES INSTALLER Sexual Orientation Choose not to disclose 2020 4:28 PM JALOUSIES INSTALLER documented as of this encounter Last Filed [...] ablation x2 with recent success 3. senior living (current) use of anticoagulants [Z79.01] No bleeding [...] as clinically indicated. 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
--- OUTSIDE RECORDS SUMMARY | 2024-10-22 06:32 | XMS_ITS | Encounter Summary ---
Author Organization [facility] Address [address] [place] [address] Care Team Providers Care Glue Bone Drier Name Role Phone Kali Hunt MD Primary Care Provider [phone] Encounter Details Date Type Department Care Team (Latest Contact Info) Description 09/14/2019 Anticoagulation Visit [facility] [address] [place] [phone] Rosy White RN Paroxysmal atrial fibrillation (CMS/HCC); [facility] current use [...] on file Legal Sex Female 8:30 AM PLYWOOD FACTORY WORKER Gender Identity Female 10/06/2021 4:28 PM PLYWOOD FACTORY WORKER Sexual Orientation Choose not to disclose 2020 4:28 PM PLYWOOD FACTORY WORKER documented as of this encounter Plan [...] Paroxysmal atrial fibrillation (CMS/HCC) (HCC) 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
--- OUTSIDE RECORDS SUMMARY | 2024-10-22 06:32 | XMS_ITS | Encounter Summary ---
Author Organization [facility] Medical [facility] Address [address] [place] [address] Care Team Providers Care Critical Care Unit Manager Name Role Phone Kali Hunt MD Primary Care Provider [phone] Encounter Details Date Type Department Care Team (Latest Contact Info) Description 11/29/2019 Anticoagulation Visit [facility] Cardiology [address] [place] [phone] Rosy White RN Paroxysmal atrial fibrillation (CMS/HCC); [...] on file Legal Sex Female 8:30 AM MARBLE POLISHER Gender Identity Female 10/06/2021 4:28 PM MARBLE POLISHER Sexual Orientation Choose not to disclose 2020 4:28 PM MARBLE POLISHER documented as of this encounter Plan [...] therapy documented in this encounter Care Teams Critical Care Unit Manager Relationship Specialty Start Date End Date Kali Hunt MD [address] [place] [address] PCP - General Family Medicine 02/08/19 01/30/20 documented as of this encounter
--- OUTSIDE RECORDS SUMMARY | 2024-10-22 06:32 | XMS_ITS | Encounter Summary ---
Author Organization [facility] Address [address] [place] [address] Care Team Providers Care Catering Coordinator Name Role Phone Priscilla Barrera MD Primary Care Provider [phone] Encounter Details Date Type Department Care Team (Latest Contact Info) Description 09/21/2018 Anticoagulation Visit [facility] [address] [facility] [address] [place] [phone] Andrade Brown MD [facility] [place] [address] Paroxysmal atrial fibrillation (CMS/HCC); [facility] current use of anticoagulant therapy Social History Tobacco Use Types Packs/Day Years Used Date Smoking Tobacco: Former Smokeless Tobacco: Never Alcohol Use Standard Drinks/Week Comments Yes 0 (1 standard drink = 0.6 oz pur e alcohol) Comments Unknown Sex and Gender Information Value Date Recorded Sex Assigned at Not on file Legal Sex Female 8:30 AM HARBOR ENGINEER Gender Identity Female 10/06/2021 4:28 PM HARBOR ENGINEER Sexual Orientation Choose not to disclose 2020 4:28 PM HARBOR ENGINEER documented as of this encounter Plan [...] therapy documented in this encounter Care Teams Catering Coordinator Relationship Specialty Start Date End Date Priscilla Barrera MD [address] [place] [address] PCP - General 01/08/17 02/07/19 documented as of this encounter
--- OUTSIDE RECORDS SUMMARY | 2024-10-22 06:32 | XMS_ITS | Encounter Summary ---
Author Organization [facility] Address [address] [place] [address] Care Team Providers Care Hourly Sales Staff Name Role Phone Kali Hunt MD Primary Care Provider [phone] Encounter Details Date Type Department Care Team (Late st Contact Info) Description 04/25/2019 Telephone [facility] [address] [place] [address] Andrade Brown MD [facility] [place] [id number] Social History Tobacco Use Types Packs/Day Years Used Date Smoking Tobacco: Former Cigarettes Q uit: 09/28/1978 Smokeless Tobacco: Never Alcohol Use Standard Drinks/Week Comments Yes 0 (1 standard drink = 0.6 oz pur e alcohol) Comments Unknown Sex and Gender Information Value Date Recorded Sex Assigned at Not on file Legal Sex Female 8:30 AM LOCOMOTIVE MECHANIC APPRENTICE Gender Identity Female 10/06/2021 4:28 PM LOCOMOTIVE MECHANIC APPRENTICE Sexual Orientation Choose not to disclose 2020 4:28 PM LOCOMOTIVE MECHANIC APPRENTICE documented as of this encounter Ordered Prescriptions [...] warfarin 4 mg tabs. Gave reference #[id number] documented in this encounter Plan of Treatment [...] documented as of this encounter Care Teams Hourly Sales Staff Relationship Specialty Start Date End Date Kali Hunt MD [address] [place] [address] PCP - General Family Medicine 02/08/19 01/30/20 documented as of this encounter
--- OUTSIDE RECORDS SUMMARY | 2024-10-22 06:32 | XMS_ITS | Encounter Summary ---
Author Organization [facility] Medical [facility] Address [address] [facility] [address] [place] [address] Care Team Providers Care Lubricating Specialist Name Role Phone Kali Hunt MD Primary Care Provider [phone] Encounter Details Date Type Department Care Team (Latest Contact Info) Description 05/17/2019 Anticoagulation Visit [facility] [address] [place] [address] Andrade Brown MD [address] [place] [address] Paroxysmal atrial fibrillation (CMS/HCC); group home [...] on file Legal Sex Female 8:30 AM SPRING FITTER Gender Identity Female 10/06/2021 4:28 PM SPRING FITTER Sexual Orientation Choose not to disclose 2020 4:28 PM SPRING FITTER documented as of this encounter Plan of Treatment Not on file documented as of this encounter Procedures Procedure Name Priority Date/Time Associated Diagnosis Comments PROTIME-INR Routine 05/17/2019 documented in this encounter Results * (ABNORMAL) Protime-INR (05/17/2019) INR 2.42(A) 0.9 - 1.1 EXTERNAL LAB Blood specimen (specimen) us [facility] Provider LAB BLOOD ORDERABLES Noris l Result EXTERNAL LAB documented in this encounter Visit Diagnoses Diagnosis Paroxysmal atrial fibrillation (CMS/HCC) (HCC) Atrial fibrillation group home current use of anticoagulant therapy documented in this encounter Care Teams Lubricating Specialist Relationship Specialty Start Date End Date Kali Hunt MD [address] [address] PCP - General Family Medicine 02/08/19 01/30/20 documented as of this encounter
--- OUTSIDE RECORDS SUMMARY | 2024-10-22 06:32 | XMS_ITS | Encounter Summary ---
Author Organization [facility] Address [address] [facility] [place] [address] Care Team Providers Care Sports Psychologist Name Role Phone Kali Hunt MD Primary Care Provider [phone] Encounter Details Date Type Department Care Team (Latest Contact Info) Description 10/18/[address] 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
--- OUTSIDE RECORDS SUMMARY | 2024-10-22 06:32 | XMS_ITS | Encounter Summary ---
Author Organization [facility] Medical [facility] Address [address] [place] [address] Care Team Providers Care Supervisor Yard Name Role Phone Priscilla Barrera MD Primary Care Provider [phone] Encounter Details Date Type Department Care Team (Latest Contact Info) Description 04/27/2018 Anticoagulation Visit [facility] [address] [facility] [address] [place] [address] Andrade Brown MD [facility] [place] [address] Paroxysmal atrial fibrillation (CMS/HCC); retirement current use of anticoagulant therapy Social History Tobacco Use Types Packs/Day Years Used Date Smoking Tobacco: Former Smokeless Tobacco: Never Alcohol Use Standard Drinks/Week Comments Yes 0 (1 standard drink = 0.6 oz pur e alcohol) Comments Unknown Sex and Gender Information Value Date Recorded Sex Assigned at Not on file Legal Sex Female 8:30 AM WELDING MACHINE OPERATOR ELECTROSLAG Gender Identity Female 10/06/2021 4:28 PM WELDING MACHINE OPERATOR ELECTROSLAG Sexual Orientation Choose not to disclose 2020 4:28 PM WELDING MACHINE OPERATOR ELECTROSLAG documented as of this encounter Plan of [...] Paroxysmal atrial fibrillation (CMS/HCC) (HCC) Atrial fibrillation retirement current use of anticoagulant therapy documented in this encounter Care Teams Supervisor Yard Relationship Specialty Start Date End Date Priscilla Barrera MD [address] [place] [address] PCP - General 01/08/17 02/07/19 documented as of this encounter
--- OUTSIDE RECORDS SUMMARY | 2024-10-22 06:32 | XMS_ITS | Encounter Summary ---
Author Organization [facility] Care Team Providers Care Melter Supervisor Open Hearth Furnace Name Role Phone Kali Hunt MD Primary Care Provider [phone] Encounter Details Date Type Department Care Team [...] on file Legal Sex Female 8:30 AM MUD BOSS Gender Identity Female 10/06/2021 4:28 PM MUD BOSS Sexual Orientation Choose not to disclose 2020 4:28 PM MUD BOSS documented as of this encounter Plan of Treatment Not on file documented as of this encounter Visit Diagnoses Not on filedocumented in this encounter Care Teams Melter Supervisor Open Hearth Furnace Relationship Specialty Start Date End Date Kali Hunt MD [address] [address] PCP - General Family Medicine 02/08/19 01/30/20 documented as of this encounter
--- OUTSIDE RECORDS SUMMARY | 2024-10-22 06:32 | XMS_ITS | Encounter Summary ---
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 Social History Tobacco Use Types Packs/Day Years Used Date Smoking Tobacco: Former Cigarettes Q uit: 09/28/1978 Smokeless Tobacco: Never Alcohol Use Standard Drinks/Week Comments Yes 0 (1 standard drink = 0.6 oz pur e alcohol) Comments Unknown Sex and Gender Information Value Date Recorded Sex Assigned at Not on file Legal Sex Female 8:30 AM GASOLINE TESTER Gender Identity Female 10/06/2021 4:28 PM GASOLINE TESTER Sexual Orientation Choose not to disclose 2020 4:28 PM GASOLINE TESTER documented as of this encounter Plan [...] atrial fibrillation (CMS/HCC) (HCC) 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
--- OUTSIDE RECORDS SUMMARY | 2024-10-22 06:32 | XMS_ITS | Encounter Summary ---
Author Organization [facility] Address [address] [place] [address] Care Team Providers Care Civil Cadd Technician Name Role Phone Kali Hunt MD Primary Care Provider [phone] Encounter Details Date Type Department Care Team (Latest Contact Info) Description 03/01/2019 Anticoagulation Visit [facility] [address] [place] [address] Andrade Brown MD [address] [place] [address] Paroxysmal atrial fibrillation (CMS/HCC); correction current [...] Legal Sex Female 8:30 AM SENIOR NET ENGINEER Gender Identity Female 10/06/2021 4:28 PM SENIOR NET ENGINEER Sexual Orientation Choose not to disclose 2020 4:28 PM SENIOR NET ENGINEER documented as of this encounter Plan [...] therapy documented in this encounter Care Teams Civil Cadd Technician Relationship Specialty Start Date End Date Kali Hunt MD [address] [address] PCP - General Family Medicine 02/08/19 01/30/20 documented as of this encounter
--- OUTSIDE RECORDS SUMMARY | 2024-10-22 06:32 | XMS_ITS | Encounter Summary ---
Author Organization [facility] Medical [facility] Address [address] [place] [address] Care Team Providers Care Sheepskin Pickler Name Role Phone Priscilla Barrera MD Primary Care Provider [phone] Encounter Details Date Type Department Care Team (Latest Contact Info) Description 06/01/2018 Anticoagulation Visit [facility] [address] [facility] [address] [place] [address] Andrade Brown MD [facility] [place] [address] Paroxysmal atrial fibrillation (CMS/HCC); group home current use of anticoagulant therapy Social History Tobacco Use Types Packs/Day Years Used Date Smoking Tobacco: Former Smokeless Tobacco: Never Alcohol Use Standard Drinks/Week Comments Yes 0 (1 standard drink = 0.6 oz pur e alcohol) Comments Unknown Sex and Gender Information Value Date Recorded Sex Assigned at Not on file Legal Sex Female 8:30 AM TARIFF EXPERT Gender Identity Female 10/06/2021 4:28 PM TARIFF EXPERT Sexual Orientation Choose not to disclose 2020 4:28 PM TARIFF EXPERT documented as of this encounter Plan of Treatment Not on file documented as of this encounter Procedures Procedure Name Priority Date/Time Associated Diagnosis Comments PROTIME-INR Routine 06/01/2018 documented in this encounter Results * (ABNORMAL) Protime-INR (06/01/2018) INR 1.58(A) 0.9 - 1.1 EXTERNAL LAB Blood specimen (specimen) us Historical Provider LAB BLOOD ORDERABLES Noris muaro Result EXTERNAL LAB documented in this encounter Visit Diagnoses Diagnosis Paroxysmal atrial fibrillation (CMS/HCC) (HCC) Atrial fibrillation group home current use of anticoagulant therapy documented in this encounter Care Teams Sheepskin Pickler Relationship Specialty Start Date End Date Priscilla Barrera MD [address] [place] [address] PCP - General 01/08/17 02/07/19 documented as of this encounter
--- OUTSIDE RECORDS SUMMARY | 2024-10-22 06:32 | XMS_ITS | Encounter Summary ---
Author Organization [facility] Medical [facility] Address [address] [place] [address] Care Team Providers Care Director Insurance Name Role Phone Priscilla Barrera MD Primary Care Provider [phone] Reason for Visit * Reason Comments Atrial Fibrillation Peripheral Artery Disease Hypertension Hyperlipidemia Encounter Details Date Type Department Care Team (Latest Contact Info) Description 04/20/2018 9:30 AM CDT Office Visit [facility] [address] 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; PAD (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) ([facility]) Social History Tobacco Use Types Packs/Day Years Used Date Smoking Tobacco: Former Smokeless Tobacco: Never Alcohol Use Standard Drinks/Week Comments Yes 0 (1 standard drink = 0.6 oz pur e alcohol) Comments Unknown Sex and Gender Information Value Date Recorded Sex Assigned at Not on file Legal Sex Female 8:30 AM CLUB FORMER Gender Identity Female 10/06/2021 4:28 PM CLUB FORMER Sexual Orientation Choose not to disclose 2020 4:28 PM CLUB FORMER documented as of this encounter Last Filed [...] PVI ablation x2 with recent success 3. 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
--- OUTSIDE RECORDS SUMMARY | 2024-10-22 06:32 | XMS_ITS | Encounter Summary ---
Author Organization [facility] Facility Care Team Providers Care Manager Services Name Role Phone Kali Hunt MD Primary [...] file Legal Sex Female 8:30 AM ENVIRONMENTAL PROJECT MANAGER Gender Identity Female 10/06/2021 4:28 PM ENVIRONMENTAL PROJECT MANAGER Sexual Orientation Choose not to disclose 2020 4:28 PM ENVIRONMENTAL PROJECT MANAGER documented as of this encounter Plan of Treatment Not on file documented as of this encounter Visit Diagnoses Not on filedocumented in this encounter Care Teams Manager Services Relationship Specialty Start Date End Date Kali Hunt MD [address] [address] PCP - General Family Medicine 02/08/19 01/30/20 documented as of this encounter
--- OUTSIDE RECORDS SUMMARY | 2024-10-22 06:32 | XMS_ITS | Encounter Summary ---
Author Organization [facility] Medical [facility] Address [address] [place] [address] Care Team Providers Care Communications Director Name Role Phone Priscilla Barrera MD Primary Care Provider [phone] Encounter Details Date Type Department Care Team (Latest Contact Info) Description 01/18/2019 Anticoagulation Visit [facility] [address] [facility] [address] [place] [phone] Andrade Brown MD [facility] [place] [address] Paroxysmal atrial fibrillation (CMS/HCC); detention current use of anticoagulant therapy Social History Tobacco Use Types Packs/Day Years Used Date Smoking Tobacco: Former Smokeless Tobacco: Never Alcohol Use Standard Drinks/Week Comments Yes 0 (1 standard drink = 0.6 oz pur e alcohol) Comments Unknown Sex and Gender Information Value Date Recorded Sex Assigned at Not on file Legal Sex Female 8:30 AM TUBULAR PRODUCTS FABRICATOR Gender Identity Female 10/06/2021 4:28 PM TUBULAR PRODUCTS FABRICATOR Sexual Orientation Choose not to disclose 2020 4:28 PM TUBULAR PRODUCTS FABRICATOR documented as of this encounter Plan of [...] therapy documented in this encounter Care Teams Communications Director Relationship Specialty Start Date End Date Priscilla Barrera MD [address] [place] [address] PCP - General 01/08/17 02/07/19 documented as of this encounter
--- OUTSIDE RECORDS SUMMARY | 2024-10-22 06:32 | XMS_ITS | Encounter Summary ---
Author Organization [facility] Address [address] [place] [address] Care Team Providers Care Postal Sorting Officer Name Role Phone Kali Hunt MD Primary Care Provider [phone] Reason for Visit * Reason Comments Atrial Fibrillation Encounter Details Date Type Department Care Team ([facility] Contact Info) Description 03/01/2019 11:00 AM CDT Office Visit [facility] [address] [place] [address] Kath Byrd, RAMONA [address] [facility] [facility] [address] [place] [address] Paroxysmal atrial fibrillation (CMS/HCC) (Primary Dx) Social History Tobacco Use Types Packs/Day Years Used Date Smoking Tobacco: Former Cigarettes Q uit: 09/28/1978 Smokeless Tobacco: Never Alcohol Use Standard Drinks/Week Comments Yes 0 (1 standard drink = 0.6 oz pur e alcohol) Comments Unknown Sex and Gender Information Value Date Recorded Sex Assigned at Not on file Legal Sex Female 8:30 AM REAL ESTATE LOAN PROCESSOR Gender Identity Female 10/06/2021 4:28 PM REAL ESTATE LOAN PROCESSOR Sexual Orientation Choose not to disclose 2020 4:28 PM REAL ESTATE LOAN PROCESSOR documented as of this encounter Last Filed [...] in this encounter Progress Notes * Kath Byrd, PROJECT ESTIMATOR - 03/01/2019 11:00 AM CDT Patient ID: [...] follow with Dr. Brown with [facility]. 2. Hypertension 3. Long-term use of [...] * ECG 12 lead (03/01/2019) Kath Byrd PROJECT ESTIMATOR ECG ORDERABLES Edited Res ult - Final documented in this encounter Visit Diagnoses Diagnosis Paroxysmal atrial fibrillation (CMS/HCC) (HCC)- Primary Atrial fibrillation documented in this encounter Care Teams Postal Sorting Officer Relationship Specialty Start Date End Date Kali Hunt MD [address] [place] [address] PCP - General Family Medicine 02/08/19 01/30/20 documented as of this encounter
--- OUTSIDE RECORDS SUMMARY | 2024-10-22 06:32 | XMS_ITS | Encounter Summary ---
Author Organization [facility] Address [address] [place] [address] Care Team Providers Care Corporation Lawyer Name Role Phone Priscilla Barrera MD Primary Care Provider [phone] Encounter Details Date Type Department Care Team (Late st Contact Info) Description 04/28/2018 Orders Only [facility] [address] [place] [phone] Provider, MD Peggy [address] [place] [address] Social History Tobacco Use Types Packs/Day Years Used Date Smoking Tobacco: Former Smokeless Tobacco: Never Alcohol Use Standard Drinks/Week Comments Yes 0 (1 standard drink = 0.6 oz pur e alcohol) Comments Unknown Sex and Gender Information Value Date Recorded Sex Assigned at Not on file Legal Sex Female 8:30 AM FERRY TERMINAL SUPERVISOR Gender Identity Female 10/06/2021 4:28 PM FERRY TERMINAL SUPERVISOR Sexual Orientation Choose not to disclose 2020 4:28 PM FERRY TERMINAL SUPERVISOR documented as of this encounter Plan [...] on filedocumented in this encounter Care Teams Corporation Lawyer Relationship Specialty Start Date End Date Priscilla Barrera MD [facility] [place] [address] PCP - General 01/08/17 02/07/19 documented as of this encounter
--- OUTSIDE RECORDS SUMMARY | 2024-10-22 06:32 | XMS_ITS | Encounter Summary ---
Author Organization [facility] Address [address] [place] [address] Care Team Providers Care Email Administrator Name Role Phone Priscilla Barrera MD Primary Care Provider [phone] Encounter Details Date Type Department Care Team (Latest Contact Info) Description 11/02/2018 Anticoagulation Visit [facility] [address] [place] [phone] Andrade Brown MD [facility] [place] [address] Paroxysmal atrial fibrillation (CMS/HCC); [facility] current use of anticoagulant therapy Social History Tobacco Use Types Packs/Day Years Used Date Smoking Tobacco: Former Smokeless Tobacco: Never Alcohol Use Standard Drinks/Week Comments Yes 0 (1 standard drink = 0.6 oz pur e alcohol) Comments Unknown Sex and Gender Information Value Date Recorded Sex Assigned at Not on file Legal Sex Female 8:30 AM BUSINESS TRANSFORMATION MANAGER Gender Identity Female 10/06/2021 4:28 PM BUSINESS TRANSFORMATION MANAGER Sexual Orientation Choose not to disclose 2020 4:28 PM BUSINESS TRANSFORMATION MANAGER documented as of this encounter Plan [...] therapy documented in this encounter Care Teams Email Administrator Relationship Specialty Start Date End Date Priscilla Barrera MD [address] [place] [address] PCP - General 01/08/17 02/07/19 documented as of this encounter
--- OUTSIDE RECORDS SUMMARY | 2024-10-22 06:32 | XMS_ITS | Encounter Summary ---
Author Organization [facility] Address [address] [place] [address] Care Team Providers Care Supervisor Tank Storage Name Role Phone Kali Hunt MD Primary Care Provider [phone] Reason for Visit * Reason Comments Atrial Fibrillation Peripheral Artery Disease Hypertension Hyperlipidemia 6 mo f/u Encounter Details Date Type Department Care Team (Latest Contact Info) Description 07/26/2019 11:30 AM CDT Office Visit [facility] [address] [address] [place] [address] Andrade Brown MD [address] [address] 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 goal <100 (Primary Dx); 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; PAD (peripheral [...] on file Legal Sex Female 8:30 AM PERFORMANCE MAKEUP ARTIST Gender Identity Female 10/06/2021 4:28 PM PERFORMANCE MAKEUP ARTIST Sexual Orientation Choose not to disclose 2020 4:28 PM PERFORMANCE MAKEUP ARTIST documented as of this encounter Last Filed [...] goal <100- Primary Other and unspecified hyperlipidemia residential current use of anticoagulant therapy PAD (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) (HCC) Unspecified peripheral vascular disease Paroxysmal atrial fibrillation (CMS/HCC) (HCC) Atrial fibrillation documented in this encounter Care Teams Supervisor Tank Storage Relationship Specialty Start Date End Date Kali Hunt MD [address] [place] [address] PCP - General Family Medicine 02/08/19 01/30/20 documented as of this encounter
--- OUTSIDE RECORDS SUMMARY | 2024-10-22 06:32 | XMS_ITS | Encounter Summary ---
Author Organization [facility] Address [address] [place] [address] Care Team Providers Care Plugger Name Role Phone Kali Hunt MD Primary Care Provider [phone] Encounter Details Date Type Department Care Team (Latest Contact Info) Description 04/12/2019 [facility]ticoagulation Visit [facility] [address] [place] [address] Andrade Brown MD [address] [place] [address] Paroxysmal atrial fibrillation (CMS/HCC); [facility] current use of anticoagulant therapy Social History Tobacco Use Types Packs/Day Years Used Date Smoking Tobacco: Former Cigarettes Q uit: 09/28/1978 Smokeless Tobacco: Never Alcohol Use Standard Drinks/Week Comments Yes 0 (1 standard drink = 0.6 oz pur e alcohol) Comments Unknown Sex and Gender Information Value Date Recorded Sex Assigned at Not on file Legal Sex Female 8:30 AM CANE FURNITURE MAKER Gender Identity Female 10/06/2021 4:28 PM CANE FURNITURE MAKER Sexual Orientation Choose not to disclose 2020 4:28 PM CANE FURNITURE MAKER documented as of this encounter Plan of Treatment Not on file documented as of this encounter Procedures Procedure Name Priority Date/Time Associated Diagnosis Comments PROTIME-INR Routine 04/12/2019 documented in this encounter Results * (ABNORMAL) Protime-INR (04/12/2019) INR 2.50(A) 0.9 - 1.1 EXTERNAL LAB Blood specimen (specimen) us [facility] Provider LAB BLOOD ORDERABLES Noris l Result EXTERNAL LAB documented in this encounter Visit Diagnoses Diagnosis Paroxysmal atrial fibrillation (CMS/HCC) (HCC) Atrial fibrillation [facility] current use of anticoagulant therapy documented in this encounter Care Teams Plugger Relationship Specialty Start Date End Date Kali Hunt MD [address] [address] PCP - General Family Medicine 02/08/19 01/30/20 documented as of this encounter
--- OUTSIDE RECORDS SUMMARY | 2024-10-22 14:45 | XMS_ITS | Encounter Summary ---
Author Organization [facility] Address [address] [place] [address] Phone Care Team Providers Care Slug Press Operator Name Role Phone Denis Platt MD Primary Care Provider [phone] Reason for Visit * Auth/Cert Specialty Diagnoses / Procedures Referred By Lyndsey farmer Referred To Contact Referral ID Status Reason Start Date Expiration Date Visits Re quested Visits Authorized [id number] 1 1 Encounter Details Date Type Department Care Team (Late st Contact Info) Description 04/13/2022 [facility] [address] [place] [address] Lilia Menendez, RN [place] CASE COMMUNICATION Social [...] on filedocumented in this encounter Care Teams Slug Press Operator Relationship Specialty Start Date End Date Denis Platt MD [address] [place] [address] PCP - General Pediatrics 04/08/22 02/15/24 documented as of this encounter
--- OUTSIDE RECORDS SUMMARY | 2024-10-22 14:45 | XMS_ITS | Encounter Summary ---
Author Organization [facility] Address [address] [place] [address] Phone Care Team Providers Care Gristmill Operator Name Role Phone Denis Platt MD Primary Care Provider [phone] Reason for Visit * Auth/Cert Specialty Diagnoses / Procedures Referred By Lyndsey farmer Referred To Contact Referral ID Status Reason Start Date Expiration Date Visits Re quested Visits Authorized [id number] 1 1 Encounter Details Date Type Department Care Team (Late st Contact Info) Description 04/10/2022 [facility] [address] [place] [address] Cyn Roblero, PT [place] TELEPHONE ENCOUNTER Social [...] on filedocumented in this encounter Care Teams Gristmill Operator Relationship Specialty Start Date End Date Denis Platt MD [address] [id number] PCP - General Pediatrics 04/08/22 02/15/24 documented as of this encounter
--- OUTSIDE RECORDS SUMMARY | 2024-10-22 14:45 | XMS_ITS | Encounter Summary ---
Author Organization [facility] Address [address] [place] [address] Phone Care Team Providers Care Paperhanger Assistant Name Role Phone Provider, Not On File Primary Care Provider Unav ailable Reason for Visit * Auth/Cert Specialty Diagnoses / Procedures Referred By Lyndsey t Referred To Contact Diagnoses PRIMARY OSTEOARTHRITIS OF LEFT HIP Procedures TOTAL HIP ARTHROPLASTY Herber Knott MD [address], [address] [place] [address] Phone: tel: fax: Referral ID Status Reason Start Date Expiration Date Visits Re quested Visits Authorized [id number] 1 1 Encounter Details Date Type Department Care Team (Late st Contact Info) Description 04/07/2022 7:10 AM CDT - 04/07/2022 9:10 AM CDT [facility] [address] [place] [address] Herber Knott MD [address], [address] [place] [address] LEFT TOTAL HIP ARTHROPLASTY, ANTERIOR APPROACH Surgery Details Date/Time Status Location OR Service Patient Class Case Class Case Type Trauma Case? 04/07/2022 7:10 AM Posted [facility] MAIN OR [address] [place] [address] Ambulatory Surgery Panel 1 Procedure LRB Anes Op Region Wound Class Comments LEFT TOTAL HIP ARTHROPLASTY, ANTERIOR APPROACH Left Combined General and Spinal Hip Clean Surgeon Surgeon Role Service Panel Herber Knott MD Primary Orthopaedic 1 Special Needs 5'4 179#, VACC. W/ BOOST X2, HX AFIB AND VIDEOTAPE OPERATOR WARFARIN, TO HOLD 5 DAYS PRIOR TO [...] have questions regarding your equipment, please call [phone] (or toll free [phone]). documented in this encounter Medications at Time [...] PM CDT OPERATIVE REPORT Admit: 04/07/2022 CSN: [id number] Dictating Provider: [id number] Herber Knott MD DATE OF PROCEDURE: 04/07/2022 SURGEON: Herber Knott MD CAR INSPECTION AND REPAIR MANAGER: VALENCIA Hernandez PREOPERATIVE DIAGNOSIS: Left hip osteoarthritis. [...] at the end of the case. JAKE/aracely /[id number] documented in this encounter Miscellaneous Notes * [...] WFL Bed Mobility Bed Mobility: supine-sit Scooting/Bridging [place] (Bed Mobility): modified independence Supine-Sit [place] (Bed Mobility): modified independence Comment (Bed Mobility): Patient able to perform bed mobility indpedently but slowly without bed rails or assist. Sit/Stand Transfer Level of Assistance (Sit-Stand Transfers): verbal cues, standby assist, 1 person to manage equipment Level of Assistance (STAND/SIT): 1 person to manage equipment Assistive Device (Transfers): walker, front-wheeled, gait belt Comment: Patient verbalized safe sequencing, then perfomred task with [facility] and supervision for optimal balance. Gait Mobility [place] Level (Gait): verbal cues, standby assist, 1 [...] Balance: mild impairment Functional Outcome Measure used: [facility]?? Basic Mobility Inpatient Short Form [...] Mast Ace - 04/08/2022 10:38 AM CDT Radiologic Technologist - Transition Arrangements Coordinated Note - Transition Specialists do not coordinate all transitions or aspects of transitions- CONFIRM PATIENT READINESS WITH AGRONOMY ADVISOR PRIOR TO DISCHARGE Machine Veneer Repairer notified: yes, notified NIA Mazariegos at the following time 1038 via [place]. Additional Details of Discharge Plan: Patient is [...] NOT heart failure or COVID Bonny Mast Radiologic Technologist Care Management, Center of Expertise * Interdisciplinary - [place] Mast Ace - 04/08/2022 10:37 AM CDT Radiologic Technologist Coordination Note SUMMARY - Radiologic Technologist currently working the potential transition plan(s): ??? 04/08/2022 @ 10:30 AM CDT ([facility] [place]) Home Health [VACUUM FILTER OPERATOR] (See detail within the referral type(s) below for information on what is needed to complete coordination Note - the Transition Specialists do not coordinate all transition types - please direct all question regarding hospital transition to the Machine Veneer Repairer) Readmission risk level (if calculated) is: Primary [...] [facility] and referral was sent via [facility] * Interdisciplinary - Delilah Woods - [...] Plan Notification/ Verification 1. Patient's Phone numbers: [phone] (home) 2. Patient's preferred discharge phone number [...] if applicable N/A - Medicare but Observation, Halfway Inpatient, Emergency, or Ambulatory Surgery patientclass Decision [...] (compare to working DRG): 1 Reason for Machine Veneer RepairerBuyer Renter: Consult for home health and walker Quin [...] PCP is HODAN PENDLETON MD located in [place] and she is active with them. Patient [...] Plan: Home Health () 04/08/22 Patient/ patient cash posting representative's preferences regarding the discharge plan: Return [...] if applicable N/A - Medicare but Observation, Halfway Inpatient, Emergency, or Ambulatory Surgery patientclass Decision Maker / Media Relations Specialist Information Patient is medical decision-maker New referral(s) for Radiologic Technologist Home Health Agency [VACUUM FILTER OPERATOR] Agency Choice(s) ??? [facility] [...] required to meet medical necessity criteria for VACUUM FILTER OPERATOR) Home Health Services [facility]eded: [facility] [...] I, or a nurse practitioner or physician???s accounts payable assistant working with me, had a phhy-ux-dcol encounter with her that meets the requirements [...] instability (Describe what the RN, PT, or GAS AND OIL CHECKER and other services will be doing in [...] Lnp-s, Pf, 30 Mcg/0.3 Ml Dose, Lavon-sucrose ([facility]) 03/16/2022 She has a past medical history of A-fib (HCC), Arthritis, intermediate use of blood thinners, and Hypertension. She [...] Flowsheets Taken 04/07/2022 1940 by Karan Cruz, director supply chain Interventions: care clustered medication offered but refused [...] past medical history of A-fib (HCC), Arthritis, terminal operator use of blood thinners, and Hypertension. Past [...] in standing positions. Functional Outcome Measure Used: [facility]-PAC 6 Clicks Daily Activity How much [...] past medical history of A-fib (HCC), Arthritis, terminal operator use of blood thinners, and Hypertension. Past [...] 4/5 Bed Mobility Bed Mobility: supine-sit Supine-Sit [place] (Bed Mobility): set up, verbal cues, 1 [...] leg forward to decrease pain Gait Mobility [place] Level (Gait): set up, verbal cues, contact [...] Balance: mild impairment Functional Outcome Measure used: [facility]?6 Clicks?? Basic Mobility Inpatient Short Form [...] THAT URINE CULTURE COLLECTED ON 03/19/22 AT [facility] WAS POSITIVE, BUT PATIENT STATED SHE IS NOT TREATING WITH ANTIBIOTIC YET. SHE STATED THAT SHE WOULD FOLLOW UP WITH DR. KNOTT REGARDING THIS INFORMATION. * Padmini Soliz RN - 03/25/2022 8:42 AM CDT [facility] ADULT TEACHING Patient Name: Quin Talley : 1935 [facility]#: [id number] Person Educated Patient Ready to Learn Yes Teaching Method Phone HAVE REQUIRED COVID SWAB TEST ON 04/04/22 [id number], ALONG WITH TYPE AND CROSSMATCH BLOOD DRAW. [...] be allowed to accompany you to the [facility]. No children under theage of 16 will be allowed in the [facility] unless they are the patient. If [...] Patient Response: Verbalizes Understanding Patient assessed for foreign language professor during the preop interview and appropriate interventions [...] VACC. W/ BOOST X2, HX AFIB AND VIDEOTAPE OPERATOR WARFARIN, TO HOLD 5 DAYS PRIOR TO [...] 12.00 10(3)/mcL 04/08/2022 6:55 AM CDT [facility] RBC 3.51(L) 3.80 - 5.30 10(6)/mcL 04/08/2022 6:55 AM CDT [facility] HEMOGLOBIN (HGB) 9.3(L) 12.0 - 15.8 g/dL 04/08/2022 6:55 AM CDT [facility] HEMATOCRIT (HCT) 30.2(L) 36.0 - 47.0 % 04/08/2022 6:55 AM CDT [facility] MCV 86.0 82.0 - 96.0 fL 04/08/2022 6:55 AM CDT [facility] MCH 26.5 26.0 - 34.0 pg 04/08/2022 6:55 AM CDT [facility] MCHC 30.8(L) 31.0 - 36.0 g/dL 04/08/2022 6:55 AM CDT [facility] PLATELET COUNT 160 140 - 440 10(3)/mcL 04/08/2022 6:55 AM CDT [facility] RDW 14.3 11.8 - 15.5 % 04/08/2022 6:55 AM CDT [facility] MPV 10.5 9.7 - 12.4 fL 04/08/2022 6:55 AM CDT [facility] NEUTROPHILS 88.2(H) 47.0 - 73.0 % 04/08/2022 6:55 AM CDT [facility] LYMPHOCYTES 6.1(L) 18.0 - 42.0 % 04/08/2022 6:55 AM CDT [facility] MONOCYTES 5.6 4.0 - 12.0 % 04/08/2022 6:55 AM CDT [facility] EOSINOPHILS 0.0 0.0 - 5.0 % 04/08/2022 6:55 AM CDT [facility] BASOPHILS 0.1 0.0 - 1.0 % 04/08/2022 6:55 AM CDT [facility] ABSOLUTE NEUTROPHILS 7.96(H) 1.60 - 7.70 10(3)/[facility] 04/08/2022 6:55 AM CDT [facility] ABSOLUTE LYMPHOCYTES 0.55(L) 1.30 - 3.20 10(3)/[facility] 04/08/2022 6:55 AM CDT [facility] ABSOLUTE MONOCYTES 0.51 0.20 - 1.00 10(3)/[facility] 04/08/2022 6:55 AM CDT [facility] ABSOLUTE EOSINOPHIL 0.00 0.00 - 0.40 10(3)/[facility] 04/08/2022 6:55 AM CDT [facility] ABSOLUTE BASOPHILS 0.01 0.00 - 0.10 10(3)/[facility] 04/08/2022 6:55 AM CDT [facility] NRBC PER 100 WBC 0 04/08/20 6:55 AM CDT [facility] RESULTS ARE CONSISTENT WITH PERIPHERAL SMEAR REVIEW Yes 04/08/2022 6:55 AM CDT [facility] Blood Venipuncture / Unknown 04/08/2022 4:02 AM CDT 04/08/2022 5:07 AM CDT us Kami Lyons PAC HEMATOLOGY ORDERABLES Fin al Result [facility] [address] [place] [address] * Protime (PT) (Prothrombin Time) (04/08/2022 4:02 AM CDT) Only the most recent of2 resultswithin the time period is included. Pathologist [facility] PROTIME-PATIENT 13.9 11.6 - 14.8 sec 04/08/2022 5:34 AM CDT [facility] INR 1.1 0.9 - 1.2 04/08/2022 5:34 AM CDT [facility] Comment: Therapeutic Ranges INR = 2.0-3.0: Venous thromb, atrial fib, pul embolism, tissue heart valve, ami. INR = 2.5-3.5: Mechanical heart valve Critical value for INR is >/= 4.5 Blood Venipuncture / Unknown 04/08/2022 4:02 AM CDT 04/08/2022 5:07 AM CDT us Kami Lyons PAC HEMATOLOGY ORDERABLES Fin al Result [facility] [address] [place] [address] * (ABNORMAL) BMP with Ca, Total (04/08/2022 4:02 AM CDT) Pathologist [facility] SODIUM 131(L) 136 - 144 mmol/L 04/08/2022 5:27 AM CDT [facility] POTASSIUM 3.9 3.5 - 5.1 mmol/L 04/08/2022 5:27 AM CDT [facility] CHLORIDE 98(L) 100 - 110 mmol/L 04/08/2022 5:27 AM CDT [facility] CO2, VENOUS 26 22 - 32 mmol/L 04/08/2022 5:27 AM CDT [facility] ANION GAP 10.9 8.0 - 20.0 mmol/L 04/08/2022 5:27 AM CDT [facility] GLUCOSE 133(H) 70 - 99 mg/dL 04/08/2022 5:27 AM CDT [facility] BUN 22 8 - 23 mg/dL 04/08/2022 5:27 AM CDT [facility] CREATININE, BLOOD 1.44(H) 0.60 - 1.10 mg/dL 04/08/2022 5:27 AM CDT [facility] BUN/CREATININE RATIO 15 12 - 20 ratio 04/08/2022 5:27 AM CDT [facility] CALCIUM 8.0(L) 8.9 - 10.3 mg/dL 04/08/2022 5:27 AM CDT [facility] GFR, EST. NONAFRICAN 35(L) >=60 04/08/2022 5:27 AM CDT [facility] GFR, EST. 42(L) >=60 04/08/2022 5:27 AM CDT [facility] Comment: Creatinine Clearance is the preferred criteria for selecting drug dose adjustments in renally impaired patients. ??The GFR is provided as additional pertinent clinical information. GFR is reported in mL/min/1.73 sq m. HAS THE PATIENT BEEN FASTING? No 04/08/2022 5:27 AM CDT [facility] Blood Venipuncture / Unknown 04/08/2022 4:02 AM CDT 04/08/2022 5:07 AM CDT Kami Lyons PAC CHEMISTRY ORDERABLES Noris l Result [facility] [address] [place] [address] * APTT (PTT) (04/07/2022 11:04 AM CDT) PTT 31 24 - 36 sec 04/07/2022 11:30 AM CDT [facility] Blood Venipuncture / Unknown 04/07/2022 11:04 AM CDT 04/07/2022 11:14 AM CDT Narrative [facility] - 04/07/2022 11:30 AM CDT Therapeutic range for unfractionated heparin at 0.3-0.7 U/mL is an aPTT value in the range of 71-100 seconds. Critical value for the PTT test is >= 122 seconds. us Herber Knott MD HEMATOLOGY ORDERABLES Final Re sult [facility] [address] [facility] [place] [address] * XR PELVIS AP PORT (04/07/2022 9:57 [...] AM T: ??04/07/2022 10:34 AM Report ID: [id number] Reading Location: ??[id number] Procedure Note Marcos Marquez MD - 04/07/2022 [...] Marcos Marquez M.D. KN: KN Report ID: [id number] Reading Location: [id number] IMPRESSION: Recent postoperative changes from left hip arthroplasty. us Kami Lyons PAC IMG DIAGNOSTIC ORDERABLES Final Result * Pathology Surgical (04/07/2022 9:16 AM CDT) Case Report Surgical Pathology Report ? Case: [id number] ? Authorizing Provider: ??Herber Knott MD ?Collected: ? 04/07/2022 09:16 AM ? [facility] ? Received: ?04/07/2022 10:57 AM ? [facility] ? Main OR ? Pathologist: ? Duncan Dillon MD ? Specimen: ?Hip, DEBRIDED BONE AND TISSUE, LEFT HIP ? 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 - HYPOCELLULAR MARROW. - NEGATIVE FOR MALIGNANCY OR SIGNIFICANT INFLAMMATION. 04/09/2022 8:57 AM [facility] Pre-Operative Diagnosis PRIMARY OSTEOARTHRITIS OF LEFT HIP 04/09/2022 8:57 AM T [facility] Gross Description A. DEBRIDED BONE [...] femoral head there are areas of eburnation. Independent Marketing Consultant sample will be submitted in cassette A1 after proper fixation and decalcification. KS/sb 04/09/2022 8:57 AM T [facility] Microscopic Description Microscopic examination was performed which supports the final diagnosis. All control tissues stained appropriately. 04/09/2022 8:57 AM CDT [facility] Tissue HIP REGION STRUCTURE / Unknown 04/07/2022 9:16 AM CDT 04/07/2022 10:57 AM CDT us Herber Knott MD PATHOLOGY/CYTOLOGY ORDERABLES Final Result [facility] [address] [place] [address] * XR SURGICAL EXAM (04/07/2022 9:14 AM [...] AM T: ??04/08/2022 9:29 AM Report ID: [id number] Reading Location: ??[id number] Procedure Note Jagdish Ratliff MD - 04/08/2022 [...] Jagdish Ratliff M.D. LB: MARISSA Report ID: [id number] Reading Location: [id number] IMPRESSION: 1. Intraoperative fluoroscopic image guidance utilized during a left hip arthroplasty. Please see operative report for further details. Herber Knott MD IMG DIAGNOSTIC ORDERABLES Noris l Result * ABO/RH (D) Recheck (04/07/2022 6:20 AM CDT) ABO TYPING O 04/07/2022 7:20 AM CDT [facility]OD BANK RH Positive 04/07/2022 7:20 AM CDT [facility] Blood Venipuncture / Unknown 04/07/2022 6:20 AM CDT 04/07/2022 6:24 AM CDT Duncan Dillon MD BLOOD BANK ORDERABLES Final Result [facility] BLOOD BANK [address] [place] [address] * Culture, Urine (04/07/2022 5:34 AM CDT) [facility] CULTURE RESULTS MIXED GROWTH OF ONE OR MORE DISTAL URETHRAL CONTAMINANTS 04/08/2022 1:28 PM CDT [facility] Urine URINE SPECIMEN COLLECTION, CLEAN CATCH / Unknown Non-Phlebotomy Collection / Unknown 04/07/2022 5:34 AM CDT 04/07/2022 5:41 AM CDT Herber Knott MD MICROBIOLOGY - GENERAL ORDERAB LES Final Result [facility] [address] [place] [address], * (ABNORMAL) URINALYSIS REFLEX IF INDICATED BY ABNORMAL RESULTS (04/07/2022 5:34 AM CDT) SPECIFIC GRAVITY 1.015 1.003 - 1.030 04/07/2022 6:22 AM CDT [facility] URINE PH 5.0 5.0 - 9.0 04/07/2022 6:22 AM CDT [facility] WBC ESTERASE 500 /uL(A) Negative 04/07/2022 6:22 AM CDT [facility] NITRITE Negative Negative 04/07/2022 6:22 AM CDT [facility] PROTEIN, RANDOM URINE Negative Negative 04/07/2022 6:22 AM CDT [facility] URINE GLUCOSE, QUAL Negative Negative 04/07/2022 6:22 AM CDT [facility] URINE KETONES Negative Negative 04/07/2022 6:22 AM CDT [facility] UROBILINOGEN Normal Normal mg/dL 04/07/2022 6:22 AM CDT [facility] URINE BLOOD Negative Negative bill/ul 04/07/2022 6:22 AM CDT [facility] URINALYSIS COLOR Yellow 04/07/20 6:22 AM CDT [facility] URINALYSIS CLARITY Slightly Cloudy 04/07/2022 6:22 AM CDT [facility] WBC (Urine) 11-20(A) Negative, 0-5 /hpf 04/07/2022 6:22 AM CDT [facility] URINE RBC'S 0-2 Negative, 0-2 /hpf 04/07/2022 6:22 AM CDT [facility] EPITHELIAL CELLS Moderate amount /lpf 04/07/2022 6:22 AM CDT [facility] BACTERIA, URINE Many(A) Negative /hpf 04/07/2022 6:22 AM CDT [facility] Urine URINE SPECIMEN COLLECTION, CLEAN CATCH / Unknown Non-Phlebotomy Collection / Unknown 04/07/2022 5:34 AM CDT 04/07/2022 5:41 AM CDT Herber Knott MD URINE ORDERABLES Final Result [facility] [place] [address] documented in this encounter Visit Diagnoses Not [...] CDT 20 mL/hr 20 mL/hr lidocaine-EPINEPHrine 1 %-1:794413 injection ONCE (in OR), Starting on Wed04/07/22 [...] 2) increasing dosage, or 3) changing to SAVE ALL OPERATOR., POST-OP (NURSING UNIT) lidocaine-EPINEPHrine 1 %-1:020647 injection (CANCELED) ONCE (in OR), Starting on [...] 2) increasing dosage, or 3) changing to SAVE ALL OPERATOR., POST-OP (NURSING UNIT) polymyxin B injection (CANCELED) [...] UNIT) documented in this encounter Care Teams Paperhanger Assistant Relationship Specialty Start Date End Date Provider, Not On File [place] PCP - General 03/19/22 04/07/22 documented as of this encounter
--- OUTSIDE RECORDS SUMMARY | 2024-10-22 14:45 | XMS_ITS | Encounter Summary ---
Author Organization [facility] Address [address] [place] [address] Phone Care Team Providers Care Band Scroll Saw Operator Name Role Phone Denis Platt MD Primary Care Provider [phone] Reason for Visit * Auth/Cert Specialty Diagnoses / Procedures Referred By Lyndsey farmer Referred To Contact Referral ID Status Reason Start Date Expiration Date Visits Re quested Visits Authorized [id number] 1 1 Encounter Details Date Type Department Care Team (Late st Contact Info) Description 04/20/2022 1:00 PM CDT Home Care Visit [facility] [address] [place] [address] Verona Restrepo, BILINGUAL [employer] SCHO[employer] TEACHER PT - HOME VISIT Social History Tobacco [...] goals the following were identified: Patient centered autism motor specialist goal: go back to work. Target Date: [...] next 2 weeks. She works for a [email or web address], sedentary work. At PT eval patient answers [...] not ordered, patient declined need for [facility] Pharmacy Services Director to provide: not ordered Past Medical [...] Progress toward goal: goal partially met [facility] PT Bed Mobility Description: Instruct on [...] bandage. documented in this encounter Care Teams Band Scroll Saw Operator Relationship Specialty Start Date End Date Denis Platt MD [address] [place] [address] PCP - General Pediatrics 04/08/22 02/15/24 documented as of this encounter
--- OUTSIDE RECORDS SUMMARY | 2024-10-22 14:45 | XMS_ITS | Encounter Summary ---
Author Organization [facility] Address [address] [place] [address] Phone Care Team Providers Care Electrologist Name Role Phone Denis Platt MD Primary Care Provider [phone] Encounter Details Date Type Department Care Team ([facility] Contact Info) Description 04/09/2022 Plan of Care Documentation [facility] [address] [place] [address] Social History Tobacco Use Types Packs/Day Years [...] on filedocumented in this encounter Care Teams Electrologist Relationship Specialty Start Date End Date Denis Platt MD [address] [place], [place] [id number] PCP - General Pediatrics 04/08/22 02/15/24 documented as of this encounter
--- OUTSIDE RECORDS SUMMARY | 2024-10-22 14:45 | XMS_ITS | Encounter Summary ---
Author Organization [facility] Address [address] [place] [address] Phone Care Team Providers Care Plastic Surgery Specialist Name Role Phone Provider, Not On File Primary Care Provider Unav ailable Denis Pendleton MD Primary Care Provider [phone] Reason for Visit * Auth/Cert Specialty Diagnoses / Procedures Referred By Contac t Referred To Contact Diagnoses PRIMARY OSTEOARTHRITIS OF LEFT HIP Procedures TOTAL HIP ARTHROPLASTY Herber Knott MD [address], [address] [place] [address] Phone: tel: fax: Referral ID Status Reason Start Date Expiration Date Visits Re quested Visits Authorized [id number] 1 1 Encounter Details Date Type Department Care Team (Latest Contact Info) Description 04/07/2022 5:12 AM CDT - 04/08/2022 4:49 PM CDT Hospital Encounter [facility] [address] [place] [id number] Herber Knott MD [address], [address] [place] [address] Discharge Disposition: Home Health Care [...] Present Illness: Left hip osteoarthritis Hospital Course: uQin Talley presented to the hospital and underwent [...] 04/08/2022 10:23 AM CDT You have chosen [facility] Home Health Care for the nursing, physical therapy your doctor has ordered. They will call you to schedule initial visit. If you have not heard from them within 24 hours of your discharge, please call ( ). [facility] Home Medical is providing your wheeled walker. This has been delivered to your hospital room. If you have questions regarding your equipment, please call [phone] (or toll free [phone]). documented in this encounter Medications at Time [...] documented in this encounter Nursing Notes * iBa Ang RN - 04/07/2022 9:44 AM CDT [...] PM CDT OPERATIVE REPORT Admit: 04/07/2022 CSN: [id number] Dictating Provider: [id number] Herber Knott MD DATE OF PROCEDURE: 04/07/2022 SURGEON: Herber Knott MD ELECTRICIAN APPRENTICE: VALENCIA Hernandez PREOPERATIVE DIAGNOSIS: Left hip osteoarthritis. [...] at the end of the case. JAKE/aracely /[id number] documented in this encounter Miscellaneous Notes * [...] WFL Bed Mobility Bed Mobility: supine-sit Scooting/Bridging Gratiot (Bed Mobility): modified independence Supine-Sit Gratiot (Bed Mobility): modified independence Comment (Bed Mobility): Patient able to perform bed mobility indpedently but slowly without bed rails or assist. Sit/Stand Transfer Level of Assistance (Sit-Stand Transfers): verbal cues, standby assist, 1 person to manage equipment Level of Assistance (STAND/SIT): 1 person to manage equipment Assistive Device (Transfers): walker, front-wheeled, gait belt Comment: Patient verbalized safe sequencing, then perfomred task with [facility] and supervision for optimal balance. Gait Mobility Gratiot Level (Gait): verbal cues, standby assist, 1 [...] Balance: mild impairment Functional Outcome Measure used: [facility] AM-PAC?6 Clicks?? Basic Mobility Inpatient Short [...] Mast Ace - 04/08/2022 10:38 AM CDT Data Security Coordinator - Transition Arrangements Coordinated Note - Transition Specialists do not coordinate all transitions or aspects of transitions- CONFIRM PATIENT READINESS WITH CONSUMER PRODUCT ADVISOR PRIOR TO DISCHARGE Chopper Feeder notified: yes, notified NIA Mazariegos at the following time 1038 via [place]. Additional Details of Discharge Plan: Patient is discharging home with home health. [facility] will call patient to schedule SOC. Home Health - coordination complete with [facility] (Home Health Agency) Updates for Elitra???s discharge sent to agencies and agency personnel notified: yes, notified [facility] at the following time 1029 via [employer]. Home Agency added to/ verified on [...] NOT heart failure or COVID Bonny Mast Data Security Coordinator Care Management, Center of Expertise * Interdisciplinary - Angeles Mast Ace - 04/08/2022 10:37 AM CDT Data Security Coordinator Coordination Note SUMMARY - Data Security Coordinator currently working the potential transition plan(s): ??? 04/08/2022 @ 10:30 AM CDT ([facility]) Home Health [[facility]] (See detail within the referral type(s) below for information on what is needed to complete coordination Note - the Transition Specialists do not coordinate all transition types - please direct all question regarding hospital transition to the Chopper Feeder) Readmission risk level (if calculated) is: Primary [...] DENIS PENDLETON MD Home Health Services Needed: alf, physical therapy Needed Information / Documentation to complete Home Health coordination: ??? None [facility] - ACCEPTED & SELECTED - coordination complete Contact is [facility] ??? 04/08/2022 @ 10:31 AM CDT ([facility]) Received IB from NIA Mazariegos stating that patient is discharging today and will need home health. Notified [facility] and referral was sent via [employer] * Edwin - Delilah Woods - [...] Plan Notification/ Verification 1. Patient's Phone numbers: [phone] (home) 2. Patient's preferred discharge phone number [...] if applicable N/A - Medicare but Observation, Custodial Inpatient, Emergency, or Ambulatory Surgery patientclass Decision [...] (compare to working DRG): 1 Reason for Chopper FeederBuilding Contractor: Consult for home health and walker Quin [...] PCP is DENIS PENDLETON MD located in [place] and she is active with them. Patient [...] Plan: Home Health () 04/08/22 Patient/ patient entry level account representative's preferences regarding the discharge plan: Return [...] if applicable N/A - Medicare but Observation, Custodial Inpatient, Emergency, or Ambulatory Surgery patientclass Decision Maker / Toggle Press Folder And Feeder Information Patient is medical decision-maker New referral(s) for Data Security Coordinator Home Health Agency [[facility]] Agency Choice(s) ??? [facility] List of Medicare approved HH agencies with quality measures and resource data (with any financial affiliations disclosed and/ or in network providers identified as applicable) provided to patient / family: Yes Provider who will be signing the ongoing Home Health plan of care: DENIS PENDLETON MD (Note: at least one PRIMARY service of alf, physical therapy or speech is required to meet medical necessity criteria for [facility]) Home Health Services Needed: alf, physical therapy Anticipated Needs: disease management and [...] I, or a nurse practitioner or physician???s veterinary assistant working with me, had a akwm-kj-[id number] encounter with her that meets the requirements [...] instability (Describe what the RN, PT, or WATER FILTER CLEANER and other services will be doing in [...] Lnp-s, Pf, 30 Mcg/0.3 Ml Dose, Lavon-sucrose ([employer] thomas top) 03/16/2022 She has a past medical history of A-fib (HCC), Arthritis, long-term use of blood thinners, and Hypertension. 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 Past [...] standing positions. Functional Outcome Measure Used: [place] AM-PAC 6 Clicks Daily Activity How much [...] past medical history of A-fib (HCC), Arthritis, long-term use of blood thinners, and Hypertension. Past [...] 4/5 Bed Mobility Bed Mobility: supine-sit Supine-Sit Gratiot (Bed Mobility): set up, verbal cues, 1 [...] leg forward to decrease pain Gait Mobility Gratiot Level (Gait): set up, verbal cues, contact [...] Balance: mild impairment Functional Outcome Measure used: [facility] AM-PAC?6 Clicks?? Basic Mobility Inpatient Short [...] THAT URINE CULTURE COLLECTED ON 03/19/[address] [facility] WAS POSITIVE, BUT PATIENT STATED SHE IS NOT TREATING WITH ANTIBIOTIC YET. SHE STATED THAT SHE WOULD FOLLOW UP WITH DR. KNOTT REGARDING THIS INFORMATION. * Interdisciplinary - Padmini Goddard RN - 03/25/2022 8:42 AM CDT [facility] ADULT TEACHING Patient Name: Quin Talley : 1935 CSN#: [id number] Person Educated Patient Ready to Learn Yes Teaching Method Phone HAVE REQUIRED COVID SWAB TEST ON 04/04/22 [id number], ALONG WITH TYPE AND CROSSMATCH BLOOD DRAW. [...] be allowed to accompany you to the [facility]. No children under theage of 16 will be allowed in the [facility] unless they are the patient. If the [...] Response: Verbalizes Understanding Patient assessed for language therapist during the preop interview and appropriate interventions [...] VACC. W/ BOOST X2, HX AFIB AND MCFP WARFARIN, TO HOLD 5 DAYS PRIOR TO [...] - 12.00 10(3)/mcL 04/08/2022 6:55 AM CDT [facility] RBC 3.51(L) 3.80 - 5.30 10(6)/mcL 04/08/2022 6:55 AM CDT [facility] HEMOGLOBIN (HGB) 9.3(L) 12.0 - 15.8 g/dL 04/08/2022 6:55 AM CDT [facility] HEMATOCRIT (HCT) 30.2(L) 36.0 - 47.0 % 04/08/2022 6:55 AM CDT [facility] MCV 86.0 82.0 - 96.0 fL 04/08/2022 6:55 AM CDT [facility] MCH 26.5 26.0 - 34.0 pg 04/08/2022 6:55 AM CDT [facility] MCHC 30.8(L) 31.0 - 36.0 g/dL 04/08/2022 6:55 AM CDT [facility] PLATELET COUNT 160 140 - 440 10(3)/mcL 04/08/2022 6:55 AM CDT [facility] RDW 14.3 11.8 - 15.5 % 04/08/2022 6:55 AM CDT [facility] MPV 10.5 9.7 - 12.4 fL 04/08/2022 6:55 AM CDT [facility] NEUTROPHILS 88.2(H) 47.0 - 73.0 % 04/08/2022 6:55 AM CDT [facility] LYMPHOCYTES 6.1(L) 18.0 - 42.0 % 04/08/2022 6:55 AM CDT [facility] MONOCYTES 5.6 4.0 - 12.0 % 04/08/2022 6:55 AM CDT [facility] EOSINOPHILS 0.0 0.0 - 5.0 % 04/08/2022 6:55 AM CDT [facility] BASOPHILS 0.1 0.0 - 1.0 % 04/08/2022 6:55 AM CDT [facility] ABSOLUTE NEUTROPHILS 7.96(H) 1.60 - 7.70 10(3)/mcL 04/08/2022 6:55 AM CDT [facility] ABSOLUTE LYMPHOCYTES 0.55(L) 1.30 - 3.20 10(3)/[facility] 04/08/2022 6:55 AM CDT [facility] ABSOLUTE MONOCYTES 0.51 0.20 - 1.00 10(3)/[facility] 04/08/2022 6:55 AM CDT [facility] ABSOLUTE EOSINOPHIL 0.00 0.00 - 0.40 10(3)/[facility] 04/08/2022 6:55 AM CDT [facility] ABSOLUTE BASOPHILS 0.01 0.00 - 0.10 10(3)/[facility] 04/08/2022 6:55 AM CDT [facility] NRBC PER 100 WBC 0 04/08/20 6:55 AM CDT [facility] RESULTS ARE CONSISTENT WITH PERIPHERAL SMEAR REVIEW Yes 04/08/2022 6:55 AM CDT [facility] Blood Venipuncture / Unknown 04/08/2022 4:02 AM CDT 04/08/2022 5:07 AM CDT Kami Lyons PAC HEMATOLOGY ORDERABLES Fin al Result [facility] [address] [place] [address] * Protime (PT) (Prothrombin Time) (04/08/2022 4:02 AM CDT) Only the most recent of2 resultswithin the time period is included. PROTIME-PATIENT 13.9 11.6 - 14.8 sec 04/08/2022 5:34 AM CDT [facility] INR 1.1 0.9 - 1.2 04/08/2022 5:34 AM CDT [facility] Comment: Therapeutic Ranges INR = 2.0-3.0: Venous thromb, atrial fib, pul embolism, tissue heart valve, ami. INR = 2.5-3.5: Mechanical heart valve Critical value for INR is >/= 4.5 Blood Venipuncture / Unknown 04/08/2022 4:02 AM CDT 04/08/2022 5:07 AM CDT us Kami Lyons PAC HEMATOLOGY ORDERABLES Fin al Result [facility] [address] [place] [address] * (ABNORMAL) BMP with Ca, Total (04/08/2022 4:02 AM CDT) SODIUM 131(L) 136 - 144 mmol/L 04/08/2022 5:27 AM CDT [facility] POTASSIUM 3.9 3.5 - 5.1 mmol/L 04/08/2022 5:27 AM CDT [facility] CHLORIDE 98(L) 100 - 110 mmol/L 04/08/2022 5:27 AM CDT [facility] CO2, VENOUS 26 22 - 32 mmol/L 04/08/2022 5:27 AM CDT [facility] ANION GAP 10.9 8.0 - 20.0 mmol/L 04/08/2022 5:27 AM CDT [facility] GLUCOSE 133(H) 70 - 99 mg/dL 04/08/2022 5:27 AM CDT [facility] BUN 22 8 - 23 mg/dL 04/08/2022 5:27 AM CDT [facility] CREATININE, BLOOD 1.44(H) 0.60 - 1.10 mg/dL 04/08/2022 5:27 AM CDT [facility] BUN/CREATININE RATIO 15 12 - 20 ratio 04/08/2022 5:27 AM CDT [facility] CALCIUM 8.0(L) 8.9 - 10.3 mg/dL 04/08/2022 5:27 AM CDT [facility] GFR, EST. NONAFRICAN 35(L) >=60 04/08/2022 5:27 AM CDT [facility] GFR, EST. 42(L) >=60 04/08/2022 5:27 AM CDT [facility] Comment: Creatinine Clearance is the preferred criteria for selecting drug dose adjustments in renally impaired patients. ??The GFR is provided as additional pertinent clinical information. GFR is reported in mL/min/1.73 sq m. HAS THE PATIENT BEEN FASTING? No 04/08/2022 5:27 AM CDT [facility] Blood Venipuncture / Unknown 04/08/2022 4:02 AM CDT 04/08/2022 5:07 AM CDT us Kami Lyons PAC CHEMISTRY ORDERABLES Noris l Result Performing Organization Address [facility] Co de Phone Number [facility] [address] [place] [address] * APTT (PTT) (04/07/2022 11:04 AM CDT) PTT 31 24 - 36 sec 04/07/2022 11:30 AM CDT [facility] Blood Venipuncture / Unknown 04/07/2022 11:04 AM CDT 04/07/2022 11:14 AM CDT Narrative [facility] - 04/07/2022 11:30 AM CDT Therapeutic range for unfractionated heparin at 0.3-0.7 U/mL is an aPTT value in the range of 71-100 seconds. Critical value for the PTT test is >= 122 seconds. us Herber Knott MD HEMATOLOGY ORDERABLES Final Re sult Performing Organization Address City/[facility]/ZIP Co de Phone Number [facility] [address] [place] [address] * XR PELVIS AP PORT (04/07/2022 9:57 [...] AM T: ??04/07/2022 10:34 AM Report ID: [id number] Reading Location: ??[id number] Procedure Note Marcos Marquez MD - 04/07/2022 [...] signed by Marcos HESS: DESHAWN Report ID: [id number] Reading Location: [id number] IMPRESSION: Recent postoperative changes from left hip arthroplasty. [facility] IMG DIAGNOSTIC ORDERABLES Final Result * Pathology Surgical (04/07/2022 9:16 AM CDT) Case Report Surgical Pathology Report ? Case: [id number] ? Authorizing Provider: ??Herber Knott MD ?Collected: ? 04/07/2022 09:16 AM ? Ordering Location: ? [facility] ? Received: ?04/07/2022 10:57 AM ? [facility] ? Main OR ? Pathologist: ? Duncan Dillon MD ? Specimen: ?Hip, DEBRIDED BONE AND TISSUE, LEFT HIP ? 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 - HYPOCELLULAR MARROW. - NEGATIVE FOR MALIGNANCY OR SIGNIFICANT INFLAMMATION. 04/09/2022 8:57 AM CDT [facility] Pre-Operative Diagnosis PRIMARY OSTEOARTHRITIS OF LEFT HIP 04/09/2022 8:57 AM CDT [facility] Gross Description A. DEBRIDED BONE AND [...] femoral head there are areas of eburnation. Reimbursement Coordinator sample will be submitted in cassette A1 after proper fixation and decalcification. KS/sb 04/09/2022 8:57 AM CDT [facility] Microscopic Description Microscopic examination was performed which supports the final diagnosis. All control tissues stained appropriately. 04/09/2022 8:57 AM CDT [facility] Tissue HIP REGION STRUCTURE / Unknown 04/07/2022 9:16 AM CDT 04/07/2022 10:57 AM CDT us Herber Knott MD PATHOLOGY/CYTOLOGY ORDERABLES Final Result [facility] [address] [place] [address] * XR SURGICAL EXAM (04/07/2022 9:14 AM [...] AM T: ??04/08/2022 9:29 AM Report ID: [id number] Reading Location: ??[id number] Procedure Note Jagdish Ratliff MD - 04/08/2022 [...] Jagdish Ratliff M.D. LB: LB Report ID: [id number] Reading Location: [id number] IMPRESSION: 1. Intraoperative fluoroscopic image guidance utilized during a left hip arthroplasty. Please see operative report for further details. Herber Knott MD IMG DIAGNOSTIC ORDERABLES Noris zunilda Result * ABO/RH (D) Recheck (04/07/2022 6:20 AM CDT) ABO TYPING O 04/07/2022 7:[address] [facility]OD BANK RH Positive 04/07/2022 7:[address] [facility] Blood Venipuncture / Unknown 04/07/2022 6:20 AM CDT 04/07/2022 6:24 AM CDT us Duncan Dillon MD BLOOD BANK ORDERABLES Final Result [facility]LOOD [facility] [address] [place] [address] * Culture, Urine (04/07/2022 5:34 AM CDT) [facility] CULTURE RESULTS MIXED GROWTH OF ONE OR MORE DISTAL URETHRAL CONTAMINANTS 04/08/2022 1:28 PM CDT [facility] Urine URINE SPECIMEN COLLECTION, CLEAN CATCH / Unknown Non-Phlebotomy Collection / Unknown 04/07/2022 5:34 AM CDT 04/07/2022 5:41 AM CDT us Herber Knott MD MICROBIOLOGY - GENERAL ORDERAB LES Final Result [facility] [address] [place] [address], [place] * (ABNORMAL) URINALYSIS REFLEX IF INDICATED BY ABNORMAL RESULTS (04/07/2022 5:34 AM CDT) Pathologist [facility] SPECIFIC GRAVITY 1.015 1.003 - 1.030 04/07/2022 6:22 AM CDT [facility] URINE PH 5.0 5.0 - 9.0 04/07/2022 6:22 AM CDT [facility] WBC ESTERASE 500 /uL(A) Negative 04/07/2022 6:22 AM CDT [facility] NITRITE Negative Negative 04/07/2022 6:22 AM CDT [facility] PROTEIN, RANDOM URINE Negative Negative 04/07/2022 6:22 AM CDT [facility] URINE GLUCOSE, QUAL Negative Negative 04/07/2022 6:22 AM CDT [facility] URINE KETONES Negative Negative 04/07/2022 6:22 AM CDT [facility] UROBILINOGEN Normal Normal mg/dL 04/07/2022 6:22 AM CDT [facility] URINE BLOOD Negative Negative bill/ul 04/07/2022 6:22 AM CDT [facility] URINALYSIS COLOR Yellow 04/07/20 6:22 AM CDT [facility] URINALYSIS CLARITY Slightly Cloudy 04/07/2022 6:22 AM CDT [facility] WBC (Urine) 11-20(A) Negative, 0-5 /hpf 04/07/2022 6:22 AM CDT [facility] URINE RBC'S 0-2 Negative, 0-2 /hpf 04/07/2022 6:22 AM CDT [facility] EPITHELIAL CELLS Moderate amount /lpf 04/07/2022 6:22 AM CDT [facility] BACTERIA, URINE Many(A) Negative /hpf 04/07/2022 6:22 AM CDT [facility] Urine URINE SPECIMEN COLLECTION, CLEAN CATCH / Unknown Non-Phlebotomy Collection / Unknown 04/07/2022 5:34 AM CDT 04/07/2022 5:41 AM CDT Herber Knott MD URINE ORDERABLES Final Result [facility] [address] [place] [address] documented in this encounter Visit Diagnoses Diagnosis [...] 2) increasing dosage, or 3) changing to GAS ENGINE OPERATOR COMPRESSORS., POST-OP (NURSING UNIT) lidocaine-EPINEPHrine 1 %-1:[id number] injection (CANCELED) ONCE (in OR), Starting on [...] 2) increasing dosage, or 3) changing to GAS ENGINE OPERATOR COMPRESSORS., POST-OP (NURSING UNIT) polymyxin B injection (CANCELED) [...] UNIT) documented in this encounter Care Teams Plastic Surgery Specialist Relationship Specialty Start Date End Date Provider, Not On File [place] PCP - General 03/19/22 04/07/22 Denis Pendleton MD [address] [place] [address] PCP - General Pediatrics 04/08/22 02/15/24 documented as of this encounter
--- OUTSIDE RECORDS SUMMARY | 2024-10-22 14:45 | XMS_ITS | Encounter Summary ---
Author Organization [facility] Address [address] 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 Target Date: [...] next 2 weeks. She works for a [employer], sedentary work. At PT eval patient answers [...] not ordered, patient declined need for ACP Car Groomer to provide: not ordered Past Medical History: [...] ongoing documented in this encounter Care Teams Senior Geotechnical Engineer Relationship Specialty Start Date End Date Denis Platt MD [address] [place] [address] PCP - General Pediatrics 04/08/22 02/15/24 documented as of this encounter
--- OUTSIDE RECORDS SUMMARY | 2024-10-22 14:45 | XMS_ITS | Clinical Summary ---
Author Organization [facility] Address [address] [place] [address] Phone Care Team Providers Care Billing Control Clerk Name Role Phone Gideon Campbell MD Primary Care Provider [phone] Allergies No known active allergies Medications warfarin [...] this topic Medical Devices Implanted Type Area Clinical Psychologist Licensed Device Identifier Shelf Expiration Date Model / Serial / Lot Shell Actb 54mm Hip Sector Gription [place] - [id number] Implanted:Qty: 1 on 04/07/2022 by Herber Knott MD at [facility] IMPLANT Left: Hip [employer] 02/08/2032 [id number] / [id number] / [id number] Liner Actb Altrx [place] Neutral 54mm 36mm Hip - [id number] Implanted:Qty: 1 on 04/07/2022 by Herber Knott MD at [facility] IMPLANT Left: Hip [employer] 08/10/2026 [id number] / [id number] / [id number] Screw Bone 6.5mm 35mm [place] Dome 4 Point Cut Flute Hip Actb Canc Slftp Hex Head Blunt Tip - [id number] Implanted:Qty: 1 on 04/07/2022 by Herber Knott MD at [facility] IMPLANT Left: Hip [employer] 09/09/2031 [id number] / [id number] / [id number] Head Fem 1.5mm /14 Taper 36mm Hip Cementless Biolox Delta Articul/Warren - [id number] Implanted:Qty: 1 on 04/07/2022 by Herber Knott MD at [facility] IMPLANT Left: Hip [employer] 02/07/2027 [id number] / [id number] / [id number] Depuy Femoral Stem / Taper Actis Duofix Hip Prothesis Cementless, High Vollar Implanted:Qty: 1 on 04/07/2022 by Herber Knott MD at [facility] Left: Hip [employer] 12/09/2031 / / [id number] Insurance [facility] on file Advance Directives * Full Code (Latest Code Status on File) Date Activated Date Inactivated Comments 04/17/2022 9:30 AM Care Teams Billing Control Clerk Relationship Specialty Start Date End Date Gideon Campbell MD [address] [place] [address] [place] [address] PCP - General Life Skills Educator 02/16/24
--- OUTSIDE RECORDS SUMMARY | 2024-10-22 14:45 | XMS_ITS | Encounter Summary ---
Author Organization [facility] Address [address] [place] [address] Phone Care Team Providers Care Battery Loader Name Role Phone Denis Platt MD Primary Care Provider [phone]- [phone] Reason for Visit * Auth/Cert Specialty Diagnoses / Procedures Referred By Lyndsey farmer Referred To Contact Referral ID Status Reason Start Date Expiration Date Visits Re quested Visits Authorized [id number] 1 1 Encounter Details Date Type Department Care Team (Late st Contact Info) Description 04/10/[facility] [address] [place] [address] Cyn Roblero, PT [place] CASE COMMUNICATION Social [...] on filedocumented in this encounter Care Teams Battery Loader Relationship Specialty Start Date End Date Denis Platt MD [address] [id number] PCP - General Pediatrics 04/08/22 02/15/24 documented as of this encounter
--- OUTSIDE RECORDS SUMMARY | 2024-10-22 14:45 | XMS_ITS | Encounter Summary ---
Author Organization [facility] Address [address] [place] [address] Phone Care Team Providers Care Audio Narrator Name Role Phone Denis Platt MD Primary Care Provider [phone]- [phone] Reason for Visit * Auth/Cert Specialty Diagnoses / Procedures Referred By Lyndsey farmer Referred To Contact Referral ID Status Reason Start Date Expiration Date Visits Re quested Visits Authorized [id number] 1 1 Encounter Details Date Type Department Care Team (Late st Contact Info) Description 04/16/2022 11:00 AM CDT Home Care Visit [facility] [address] [place] [address] Verona Restrepo, DIRECTOR OF FOOD AND BEVERAGE SERVICES PT - HOME VISIT Social History Tobacco [...] 2 weeks. She works for a local [employer], sedentary work. At PT eval patient answers [...] not ordered, patient declined need for ACP Tool Pusher to provide: not ordered Past Medical History: [...] ongoing. documented in this encounter Care Teams Audio Narrator Relationship Specialty Start Date End Date Denis Platt MD [address] [place] [address] PCP - General Pediatrics 04/08/22 02/15/24 documented as of this encounter
--- OUTSIDE RECORDS SUMMARY | 2024-10-22 14:45 | XMS_ITS | Encounter Summary ---
Author Organization [facility] Address [address] [place] [address] Phone Care Team Providers Care Space Operations Name Role Phone Denis Platt MD Primary Care Provider [phone]- [phone] Reason for Visit * Auth/Cert Specialty Diagnoses / Procedures Referred By Lyndsey farmer Referred To Contact Referral ID Status Reason Start Date Expiration Date Visits Re quested Visits Authorized [id number] 1 1 Encounter Details Date Type Department Care Team (Latest Contact Info) Description 04/22/2022 12:00 PM CDT Home Care Visit [facility] [address] [place] [address] Cyn Roblero, PT [place] PT - OASIS [...] FALL PREVENTION (O) Disciplines: SN, PT, OT, RESIDENTIAL ASSISTANT, HCA, ENGINEER INTERNSHIP, RT 04/09/2022 Active 1 goal linked to [...] the following were identified: 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 Target Date: [...] 2 weeks. She works for a local [employer], sedentary work. At PT eval patient answers [...] not ordered, patient declined need for ACP Under Cutting Machine Operator to provide: not ordered Past Medical [...] met documented in this encounter Care Teams Space Operations Relationship Specialty Start Date End Date Denis Platt MD [address] [place] [address] PCP - General Pediatrics 04/08/22 02/15/24 documented as of this encounter
--- OUTSIDE RECORDS SUMMARY | 2024-10-22 14:45 | XMS_ITS | Encounter Summary ---
Author Organization [employer] Care Team Providers Care Medical Historian Name Role Phone Provider, Not On File [...] filedocumented in this encounter Care Teams Medical Historian Relationship Specialty Start Date End Date Provider, Not On File [place] PCP - General 03/19/22 04/07/22 documented as of this encounter
--- OUTSIDE RECORDS SUMMARY | 2024-10-22 14:45 | XMS_ITS | Encounter Summary ---
Author Organization [facility] Address [address] [place] [address] Phone Care Team Providers Care Transition Teacher Name Role Phone Denis Platt MD Primary Care Provider [phone]- [phone] Reason for Visit * Auth/Cert Specialty Diagnoses / Procedures Referred By Lyndsey farmer Referred To Contact Referral ID Status Reason Start Date Expiration Date Visits Re quested Visits Authorized [id number] 1 1 Encounter Details Date Type Department Care Team (Late st Contact Info) Description 04/14/2022 1:00 PM CDT Home Care Visit [facility] [address] [place] [address] Verona Restrepo, ORE DRYER PT - HOME VISIT Social History Tobacco [...] goals the following were identified: 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 Target Date: [...] next 2 weeks. She works for a [employer], sedentary work. 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 Tolerance to activity: fair Instruction provided to [...] drainage documented in this encounter Care Teams Transition Teacher Relationship Specialty Start Date End Date Denis Platt MD [address] [place] [address] PCP - General Pediatrics 04/08/22 02/15/24 documented as of this encounter
--- OUTSIDE RECORDS SUMMARY | 2024-10-22 14:46 | XMS_ITS | Encounter Summary ---
Author Organization [facility] Address [address] [place] [address] Phone Care Team Providers Care Field Worker Name Role Phone Provider, Not On File Primary Care Provider Unav ailable Reason for Visit * Auth/Cert Specialty Diagnoses / Procedures Referred By Lyndsey farmer Referred To Contact Diagnoses PRIMARY OSTEOARTHRITIS OF LEFT HIP Procedures TOTAL HIP ARTHROPLASTY Herber Knott MD [address] [place] [address], [address] [place] [address] Phone: tel: fax: Referral ID Status Reason Start Date Expiration Date Visits Re quested Visits Authorized [id number] 1 1 Encounter Details Date Type Department Care Team (Late st Contact Info) Description 04/07/2022 7:29 AM CDT [facility] [address] [place] [address] Pito Sepulveda, [address] [place] [address] Malik Doss APRN, [facility] [address] [place] [address] Anesthesia Record Procedure Summary Procedure Name Responsible [...] Procedure Summary Date: 04/07/22 Room / Location: [facility] / [facility] Anesthesia Start: 728 Anesthesia Stop: 937 Procedure: [...] Procedure Summary Date: 04/07/22 Room / Location: [facility] OR 05 / [facility] Anesthesia Start: 728 Anesthesia Stop: 937 Procedure: [...] HIP ARTHROPLASTY, ANTERIOR APPROACH (Left Hip) Location: [facility] OR 05 / [facility] Surgeons: Herber Knott MD Patient summary [...] mg documented in this encounter Care Teams Field Worker Relationship Specialty Start Date End Date Provider, Not On File [place] PCP - General 03/19/22 04/07/22 documented as of this encounter
--- OUTSIDE RECORDS SUMMARY | 2024-10-22 14:46 | XMS_ITS | Encounter Summary ---
Author Organization [employer] Care Team Providers Care Key Ringer Name Role Phone Provider, Not On File [...] on filedocumented in this encounter Care Teams Key Ringer Relationship Specialty Start Date End Date Provider, Not On File [place] PCP - General 03/19/22 04/07/22 documented as of this encounter
--- OUTSIDE RECORDS SUMMARY | 2024-10-22 14:46 | XMS_ITS | Encounter Summary ---
Author Organization [employer] Care Team Providers Care Sales Leader Name Role Phone Provider, Not On File [...] filedocumented in this encounter Care Teams Sales Leader Relationship Specialty Start Date End Date Provider, Not On File [place] PCP - General 03/19/22 04/07/22 documented as of this encounter
--- OUTSIDE RECORDS SUMMARY | 2024-10-22 14:46 | XMS_ITS | Encounter Summary ---
Author Organization [employer] Care Team Providers Care Solvent Plant Treater Name Role Phone Provider, Not On File [...] on filedocumented in this encounter Care Teams Solvent Plant Treater Relationship Specialty Start Date End Date Provider, Not On File [place] PCP - General 03/19/22 04/07/22 documented as of this encounter
--- OUTSIDE RECORDS SUMMARY | 2024-10-22 14:46 | XMS_ITS | Encounter Summary ---
Author Organization [facility] Address [address] [place] [address] Phone Care Team Providers Care Fire Boss Name Role Phone Provider, Not On File Primary Care Provider Unav ailable Reason for Referral * Radiology Services (Routine) - Closed Specialty Diagnoses / Procedures Referred By Lyndsey farmer Referred To Contact Radiology Diagnoses Preop examination Procedures EKG 12 LEAD Herber Knott MD Phone: tel: fax: Referral ID Status Reason Start Date Expiration Date Visits Re quested Visits Authorized [id number] Closed 03/19/2022 1 1 Reason for Visit * Radiology Services (Routine) - Closed Specialty Diagnoses / Procedures Referred By Lyndsey farmer Referred To Contact Radiology Diagnoses Preop examination Procedures EKG 12 LEAD Herber Knott MD Phone: tel: fax: Referral ID Status Reason Start Date Expiration Date Visits Re quested Visits Authorized [id number] Closed 03/19/2022 1 1 Encounter Details Date Type Department Care Team (Latest Contact Info) Description 03/19/2022 11:30 AM CDT - 03/19/2022 12:58 PM CDT [facility] [address] [place] [address] Herber Knott MD [address] [place] [address], [address] [place] [address] Discharge Disposition: Discharged to home or Selfcare [...] QTC CALCULATION 454 ms EXTERNAL EKG P [place] 75 degrees EXTERNAL EKG R [place] -56 degrees EXTERNAL EKG T [place] 53 degrees EXTERNAL EKG 03/19/2022 1:11 PM CDT Impressions EXTERNAL EKG - 03/20/2022 12:47 PM CDT Sinus rhythm Left axis deviation RBBB with left anterior fascicular block Possible anterior infarct - age undetermined Low QRS voltages in precordial leads Comparison Summary: No serial comparison made Summary: Abnormal ECG Confirmed by Giuliano Morrell [id number] on 03/20/2022 12:47:32 PM Narrative Procedure Note Petros Sher MD - 03/20/2022 IMPRESSION: Sinus rhythm Left axis deviation RBBB with left anterior fascicular block Possible anterior infarct - age undetermined Low QRS voltages in precordial leads Comparison Summary: No serial comparison made Summary: Abnormal ECG Confirmed by Giuliano Morrell [id number] on 03/20/2022 12:47:32 PM us Herber Knott MD IMG ECG ORDERABLES Final Resul t EXTERNAL EKG documented in this encounter Visit Diagnoses Diagnosis Preop examination Preoperative examination, unspecified Preop cardiovascular exam Pre-operative cardiovascular examination documented in this encounter Care Teams Fire Boss Relationship Specialty Start Date End Date Provider, Not On File [place] PCP - General 03/19/22 04/07/22 documented as of this encounter
--- OUTSIDE RECORDS SUMMARY | 2024-10-22 14:46 | XMS_ITS | Encounter Summary ---
Author Organization [facility] Address [address] [place] [address] Phone Care Team Providers Care Veterinary Medicine Doctor Name Role Phone Provider, Not On File Primary Care Provider Unav ailable Denis Platt MD Primary Care Provider Gideon Campbell MD Primary Care Provider Encounter Details Date Type Department Care Team (Late st Contact Info) Description 03/24/[address] [facility] Preop/Pacu II [address] [place] [id number] Herber Knott MD [address] [place] [address], [address] [place] [address] Pre-op testing (Primary Dx) Social [...] ABO TYPING O 04/04/2022 11:22 AM CDT [facility] BLOOD [facility] RH Positive 04/04/2022 11:22 AM CDT [facility] B[facility]OD [facility] ABSC Negative 04/04/2022 11:22 AM CDT [facility]OD [facility] Blood Venipuncture / Unknown 04/04/2022 9:50 AM CDT 04/04/2022 10:04 AM CDT Herber Knott MD BLOOD BANK ORDERABLES Edited R esult - Final [facility] BLOOD BANK [address] [place] [address] * SARS-COV-2 BY MOLECULAR (04/04/2022 9:46 AM CDT) Pathologist [facility] SARSCOV2 NOT DETECTED (Referenc e Range for this test is Not Detected) [facility] [place] ID NOW 04/04/2022 10:33 AM CDT [facility] Comment:This test was perfor med by a MOLECULAR, NON-PCR method Other NASAL STRUCTURE / Unknown Non-Phlebotomy Collection / Unknown 04/04/2022 9:46 AM CDT 04/04/2022 10:04 AM CDT Narrative [facility] - 04/04/2022 10:33 AM CDT [...] information for Clinicians can be found at: https://www.fda.gov/media/322629/download Additional information for Patients can be found at: https://www.fda.gov/media/500883/download us Herber Knott MD MICROBIOLOGY - GENERAL ORDERAB LES Final Result [facility] [address] [place] [address] documented in this encounter Visit Diagnoses Diagnosis Pre-op testing- Primary Preoperative examination, unspecified documented in this encounter Care Teams Veterinary Medicine Doctor Relationship Specialty Start Date End Date Provider, Not On File [place] PCP - General 03/19/22 04/07/22 Denis Platt MD [address] [place] [address] PCP - General Pediatrics 04/08/22 02/15/24 Gideon Campbell MD [address] [place] [address] [place] [address] PCP - General Industrial Chemicals Supervisor 02/16/24 documented as of this encounter
--- OUTSIDE RECORDS SUMMARY | 2024-10-22 14:46 | XMS_ITS | Encounter Summary ---
Author Organization [facility] Address [address] [place] [address] Phone Care Team Providers Care Hat Finishing Materials Preparer Name Role Phone Provider, Not On File Primary Care Provider Unav ailable Reason for Referral * Radiology Services (Routine) - Closed Specialty Diagnoses / Procedures Referred By Lyndsey farmer Referred To Contact Radiology Diagnoses Preop examination Procedures XR CHEST 2 VIEWS Herber Knott MD Phone: tel: fax: Referral ID Status Reason Start Date Expiration Date Visits Re quested Visits Authorized [id number] Closed 03/19/2022 1 1 Reason for Visit * Radiology Services (Routine) - Closed Specialty Diagnoses / Procedures Referred By Lyndsey farmer Referred To Contact Radiology Diagnoses Preop examination Procedures XR CHEST 2 VIEWS Herber Knott MD Phone: tel: fax: Referral ID Status Reason Start Date Expiration Date Visits Re quested Visits Authorized [id number] Closed 03/19/2022 1 1 Encounter Details Date Type Department Care Team (Latest Contact Info) Description 03/19/2022 12:59 PM CDT - 03/19/2022 11:59 PM CDT Hospital [facility] Diagnostic Radiology [address] [place] [address] Herber Knott MD [address] [place] [address], [address] [place] [address] Discharge Disposition: Discharged to home or Selfcare [...] PM T: ??03/20/2022 3:45 PM Report ID: [id number] Reading Location: ??[id number] Procedure Note Baldemar Caro MD - 03/20/2022 [...] Baldemar Caro M.D. MZ: MZ Report ID: [id number] Reading Location: [id number] IMPRESSION: No acute cardiopulmonary findings. Herber Knott MD IMG DIAGNOSTIC ORDERABLES Noris l Result documented in this encounter Visit Diagnoses Diagnosis Preop examination Preoperative examination, unspecified Preop cardiovascular exam Pre-operative cardiovascular examination documented in this encounter Care Teams Hat Finishing Materials Preparer Relationship Specialty Start Date End Date Provider, Not On File [place] PCP - General 03/19/22 04/07/22 documented as of this encounter
--- OUTSIDE RECORDS SUMMARY | 2024-10-22 14:46 | XMS_ITS | Encounter Summary ---
Author Organization [facility] Address [address] [place] [address] Phone Care Team Providers Care Leasing Professional Name Role Phone Provider, Not On File Primary Care Provider Unav ailable Reason for Referral * Radiology Services (Routine) - Closed Specialty Diagnoses / Procedures Referred By Lyndsey farmer Referred To Contact Radiology Diagnoses Preop examination Procedures EKG 12 LEAD Herber Knott MD Phone: tel: fax: Referral ID Status Reason Start Date Expiration Date Visits Re quested Visits Authorized [id number] Closed 03/19/2022 1 1 * Radiology Services (Routine) - Closed Specialty Diagnoses / Procedures Referred By Lyndsey farmer Referred To Contact Radiology Diagnoses Preop examination Procedures XR CHEST 2 VIEWS Herber Knott MD Phone: tel: fax: Referral ID Status Reason Start Date Expiration Date Visits Re quested Visits Authorized [id number] Closed 03/19/2022 1 1 Encounter Details Date Type Department Care Team (Latest Contact Info) Description 03/19/2022 Transcribe Orders [facility] Patient Access Admitting [address] [place] [address] Herber Knott MD [address] [place] [address], [address] [place] [address] Preop cardiovascular exam (Primary Dx); Preop examination [...] PM T: ??03/20/2022 3:45 PM Report ID: [id number] Reading Location: ??[id number] Procedure Note Baldemar Caro MD - 03/20/2022 [...] Baldemar Caro M.D. MZ: MZ Report ID: [id number] Reading Location: [id number] IMPRESSION: No acute cardiopulmonary findings. Herber Knott MD IMG DIAGNOSTIC ORDERABLES Noris l Result * EKG 12 LEAD (03/19/2022 1:11 PM CDT) Ventricular Rate BPM EXTERNAL EKG Atrial Rate BPM EXTERNAL EKG P-R Interval 140 ms EXTERNAL EKG QRS Duration 132 ms EXTERNAL EKG Q-T Duration 420 ms EXTERNAL EKG QTC CALCULATION 454 ms EXTERNAL EKG P [place] 75 degrees EXTERNAL EKG R [place] -56 degrees EXTERNAL EKG T [place] 53 degrees EXTERNAL EKG 03/19/2022 1:11 PM CDT Impressions EXTERNAL EKG - 03/20/2022 12:47 PM CDT Sinus rhythm Left axis deviation RBBB with left anterior fascicular block Possible anterior infarct - age undetermined Low QRS voltages in precordial leads Comparison Summary: No serial comparison made Summary: Abnormal ECG Confirmed by Giuliano Morrell [id number] on 03/20/2022 12:47:32 PM Narrative Procedure Note Petros Sher MD - 03/20/2022 IMPRESSION: Sinus rhythm Left axis deviation RBBB with left anterior fascicular block Possible anterior infarct - age undetermined Low QRS voltages in precordial leads Comparison Summary: No serial comparison made Summary: Abnormal ECG Confirmed by Giuliano Morrell [id number] on 03/20/2022 12:47:32 PM us Herber Knott MD IMG ECG ORDERABLES Final Resul t Performing Organization Address [facility] [employer] Phone Number EXTERNAL EKG * (ABNORMAL) APTT (PTT) (03/19/2022 11:55 AM CDT) PTT 59(H) 24 - 36 sec 03/19/2022 12:38 PM CDT [facility] Blood Venipuncture / Unknown 03/19/2022 11:55 AM CDT 03/19/2022 12:19 PM CDT Narrative [facility] - 03/19/2022 12:38 PM CDT Therapeutic range for unfractionated heparin at 0.3-0.7 U/mL is an aPTT value in the range of 71-100 seconds. Critical value for the PTT test is >= 122 seconds. Herber Knott MD HEMATOLOGY ORDERABLES Final Re sult Performing Organization Address [facility] de Phone Number [facility] [address] [place] [address] * (ABNORMAL) CMP (COMPREHENSIVE METABOLIC PANEL) (03/19/2022 11:55 AM CDT) SODIUM 134(L) 136 - 144 mmol/L 03/19/2022 12:52 PM CDT [facility] POTASSIUM 3.4(L) 3.5 - 5.1 mmol/L 03/19/2022 12:52 PM CDT [facility] CHLORIDE 95(L) 100 - 110 mmol/L 03/19/2022 12:52 PM CDT [facility] CO2, VENOUS 28 22 - 32 mmol/L 03/19/2022 12:52 PM CDT [facility] ANION GAP 14.4 8.0 - 20.0 mmol/L 03/19/2022 12:52 PM CDT [facility] GLUCOSE 112(H) 70 - 99 mg/dL 03/19/2022 12:52 PM CDT [facility] BUN 16 8 - 23 mg/dL 03/19/2022 12:[address] [facility] CREATININE, BLOOD 0.90 0.60 - 1.10 mg/dL 03/19/2022 12:[address] [facility] BUN/CREATININE RATIO 18 12 - 20 ratio 03/19/2022 12:[address] [facility] TOTAL PROTEIN 6.9 6.0 - 8.3 g/dL 03/19/2022 12:52 PM T [facility] ALBUMIN 4.0 3.5 - 5.2 g/dL 03/19/2022 12:[address] [facility] Comment: The colormetric methods used for the determination of Albumin may lead to falsely elevated test results in patients suffering from renal failure or insufficiency due to interference with other proteins. A/G RATIO 1.4 1.0 - 2.0 03/19/2022 12:52 PM T [facility] CALCIUM 9.1 8.9 - 10.3 mg/dL 03/19/2022 12:[address] [facility] T BILI 0.4 <=1.2 mg/dL 03/19/2022 12:[address] [facility] SGOT (AST) 14 <=32 U/L 03/19/2022 12:[address] [facility] SGPT (ALT) 7 <=41 U/L 03/19/2022 12:52 PM T [facility] ALKALINE PHOSPHATASE 120(H) 35 - 105 U/L 03/19/2022 12:[address] [facility] GFR, EST. NONAFRICAN 60 >=60 03/19/2022 12:52 PM T [facility] GFR, EST. >60 >=60 022 12:52 PM T [facility] Comment: Creatinine Clearance is the preferred criteria for selecting drug dose adjustments in renally impaired patients. ??The GFR is provided as additional pertinent clinical information. GFR is reported in mL/min/1.73 sq m. IS THE PATIENT REQUIRED TO BE FASTING? No 03/19/2022 12:52 PM CDT [facility] Blood Venipuncture / Unknown 03/19/2022 11:55 AM CDT 03/19/2022 12:19 PM CDT Herber Knott MD CHEMISTRY ORDERABLES Final Res ult Performing Organization Address City/[facility]/ZIP Co de Phone Number [facility] [address] [place] [address] * (ABNORMAL) PROTIME (PT) (PROTHROMBIN TIME) (03/19/2022 11:55 AM CDT) PROTIME-PATIENT 26.7(H) 11.6 - 14.8 sec 03/19/2022 12:38 PM CDT [facility] INR 2.4(H) 0.9 - 1.2 03/19/2022 12:38 PM CDT [facility] Comment: Therapeutic Ranges INR = 2.0-3.0: Venous thromb, atrial fib, pul embolism, tissue heart valve, ami. INR = 2.5-3.5: Mechanical heart valve Critical value for INR is >/= 4.5 Blood Venipuncture / Unknown 03/19/2022 11:55 AM CDT 03/19/2022 12:19 PM CDT Herber Knott MD HEMATOLOGY ORDERABLES Final Re sult Performing Organization Address [facility] de Phone Number [facility] [address] [place] [address] * HEMOGLOBIN A1C W/ ESTIMATED GLUCOSE (03/19/2022 11:55 AM CDT) [facility] HGB-A1C 6.0 4.0 - 6.0 % 03/19/2022 1:02 PM CDT [facility] Est Average Glucose 125.5 mg/dL 03/19/2022 1:02 PM CDT [facility] Blood Venipuncture / Unknown 03/19/2022 11:55 AM CDT 03/19/2022 12:19 PM CDT Narrative [facility] - 03/19/2022 1:02 PM CDT HEMOGLOBIN A1C: DIABETIC PATIENTS: WELL-CONTROLLED: ?? 6.2 - 7.0 INTERMEDIATE WELL-CONTROLLED: ??7.0 - 9.0 POORLY-CONTROLLED: ??>9.0 us Herber Knott MD CHEMISTRY ORDERABLES Final Res ult [facility] [address] [place] [address] documented in this encounter Visit Diagnoses Diagnosis Preop cardiovascular exam- Primary Pre-operative cardiovascular examination Preop examination Preoperative examination, unspecified Preop examination Preoperative examination, unspecified Preop cardiovascular exam Pre-operative cardiovascular examination Preop examination Preoperative examination, unspecified Preop cardiovascular exam Pre-operative cardiovascular examination documented in this encounter Care Teams Leasing Professional Relationship Specialty Start Date End Date Provider, Not On File [place] PCP - General 03/19/22 04/07/22 documented as of this encounter
--- OUTSIDE RECORDS SUMMARY | 2024-10-22 14:48 | XMS_ITS | Encounter Summary ---
Author Organization [facility] Healthcare Address [address] [place] [address] Care Team Providers Care Site Surveyor Name Role Phone Gideon Campbell MD Primary Care Provider [phone] Encounter Details Date Type Department Care Team (Late st Contact Info) Description 01/14/2024 Telephone [facility] Medical Group Orthopedics and Sports Medicine 4 [facility] [address] [place] [address] Herber Knott MD [address] [place] [address] [address] [place] [address] Social History Tobacco Use Types Packs/Day Years [...] on file Legal Sex Female 8:30 AM PULMONOLOGIST Gender Identity Female 10/06/2021 4:28 PM PULMONOLOGIST Sexual Orientation Choose not to disclose 2020 4:28 PM PULMONOLOGIST documented as of this encounter Miscellaneous Notes [...] like to change her mother's PCP to [place] where all the family lives and this [...] on filedocumented in this encounter Care Teams Site Surveyor Relationship Specialty Start Date End Date Gideon Campbell MD [address] [place], [place] [address] PCP - General Family Medicine 07/19/23 documented as of this encounter
--- OUTSIDE RECORDS SUMMARY | 2024-10-22 14:48 | XMS_ITS | Encounter Summary ---
Author Organization [facility] Healthcare Address [address] [place] [address] Care Team Providers Care Volunteer Specialist Name Role Phone Gideon Campbell MD Primary Care Provider [phone] Encounter Details Date Type Department Care Team (Late st Contact Info) Description 12/23/2023 Orders Only [facility] Cancer [facility] 4 [facility] [address] [place] [address] Luis F Lofton MD [address] [place] [address] [address] [place] [address] Social History Tobacco Use Types Packs/Day Years [...] on file Legal Sex Female 8:30 AM CADMIUM BURNER Gender Identity Female 10/06/2021 4:28 PM CADMIUM BURNER Sexual Orientation Choose not to disclose 2020 4:28 PM CADMIUM BURNER documented as of this encounter Plan of Treatment Not on file documented as of this encounter Visit Diagnoses Not on filedocumented in this encounter Care Teams Volunteer Specialist Relationship Specialty Start Date End Date Gideon Campbell MD [address] [facility] [address] [place] [address] PCP - General Family Medicine 07/19/23 documented as of this encounter
--- OUTSIDE RECORDS SUMMARY | 2024-10-22 14:48 | XMS_ITS | Encounter Summary ---
Author Organization [facility] Address [address] [place] [address] Phone Care Team Providers Care Boilermaker Central Steam Plant Name Role Phone Gideon Cambpell MD Primary Care Provider [phone] Encounter Details Date Type Department Care Team (Late st Contact Info) Description 12/23/2023 Orders Only [facility] Oncology [address] [place] [address] Medical [facility] [address] [address] Luis F Lofton MD [address] [place] [address] Social History Tobacco Use Types Packs/Day Years [...] file Legal Sex Female 8:30 AM SUPERVISOR PARTIAL DENTURE DEPARTMENT Gender Identity Female 10/06/2021 4:28 PM SUPERVISOR PARTIAL DENTURE DEPARTMENT Sexual Orientation Choose not to disclose 2020 4:28 PM SUPERVISOR PARTIAL DENTURE DEPARTMENT documented as of this encounter Plan of Treatment Not on file documented as of this encounter Visit Diagnoses Not on filedocumented in this encounter Care Teams Boilermaker Central Steam Plant Relationship Specialty Start Date End Date Gideon Campbell MD 2 [facility] [address] [address] PCP - General Family Medicine 07/19/23 documented as of this encounter
--- OUTSIDE RECORDS SUMMARY | 2024-10-22 14:48 | XMS_ITS | Encounter Summary ---
Author Organization [facility] Address [address] [place] [address] Phone Care Team Providers Care Care Center Manager Name Role Phone Gideon Campbell MD Primary Care Provider [phone] Encounter Details Date Type Department Care Team (Late st Contact Info) Description 02/22/2024 Telephone [facility] Oncology [address] [place] [address] Yamileth Santiago, JACOB Social History Tobacco [...] file Legal Sex Female 8:30 AM FLIGHT CREW TIME CLERK Gender Identity Female 10/06/2021 4:28 PM FLIGHT CREW TIME CLERK Sexual Orientation Choose not to disclose 2020 4:28 PM FLIGHT CREW TIME CLERK documented as of this encounter Miscellaneous Notes * Telephone Encounter - Yamileth Santiago CLT - 02/22/2024 1:44 PM CDT PATIENT CALLED IN TO CANCEL APPT., DOES NOT WANT TO RESCHEDULE AT THIS TIME documented in this encounter Plan of Treatment Not on file documented as of this encounter Visit Diagnoses Not on filedocumented in this encounter Care Teams Care Center Manager Relationship Specialty Start Date End Date Gideon Campbell MD 2 [facility] [address] [place] [address] PCP - General Family Medicine 07/19/23 documented as of this encounter
--- OUTSIDE RECORDS SUMMARY | 2024-10-22 14:48 | XMS_ITS | Encounter Summary ---
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 Social History Tobacco [...] on file Legal Sex Female 8:30 AM CARDING SUPERVISOR Gender Identity Female 10/06/2021 4:28 PM CARDING SUPERVISOR Sexual Orientation Choose not to disclose 2020 4:28 PM CARDING SUPERVISOR documented as of this encounter Plan of Treatment Not on file documented as of this encounter Procedures Procedure Name Priority Date/Time Associated Diagnosis Comments EGFR Routine 01/31/2024 9:20 AM CDT 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, unspecified iron deficiency anemia type assisted (current) use of anticoagulants DIFFERENTIAL AUTO Routine 01/31/2024 9:2 0 AM CDT 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, unspecified iron deficiency anemia type CBC WITH AUTO DIFFERENTIAL Routine 01/31/2024 9:20 AM CDT 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, unspecified iron deficiency anemia type COMPREHENSIVE METABOLIC PANEL Routine 01/31/2024 9:20 AM CDT 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, unspecified iron deficiency anemia type assisted (current) use of anticoagulants documented in this [...] was last reviewed 2021. Testing performed by: [place], [address] Blood 01/31/2024 9:20 AM CDT 01/31/2024 9:38 AM CDT us Luis F Lofton MD LAB BLOOD ORDERABLES Final Re sult [facility] 1 [facility] Department [place] [address] * (ABNORMAL) Differential, auto (01/31/2024 9:20 AM CDT) Neutrophil abs 4.4 1.5 - 6.5 K/cumm Comment:Testing performed by : [place], [address] Imm gran abs 0.0 0.0 - 0.1 K/cumm [facility] ([facility]) Comment:Testing performed by : [place], [address] Lymphocyte abs 0.5(L) 0.8 - 3.3 K/cumm [facility] ([facility]) Comment:Testing performed by : [facility], [place], [address] Monocyte abs 0.5 0.2 - 0.8 K/cumm [facility] ([facility]) Comment:Testing performed by : [facility], [place], [address] Eosinophil abs 0.0 0.0 - 0.5 K/cumm [facility] ([facility]) Comment:Testing performed by : [place], [address] Basophil abs 0.0 0.0 - 0.1 K/cumm [facility] ([facility]) Comment:Testing performed by : [facility], [place], [address] Neutrophil pct 79.3 % [facility] (ACWOR[facility]) Comment: Interpretive Data Percent cell count reference ranges are not reported, since discordance with absolute values may lead to misinterpretation of CBC data. Current Interpretive Data was last revised on 2018. Testing performed by: [place], [address] Imm gran pct 0.4 % [facility] ([facility]) Comment: Interpretive Data Percent cell count reference ranges are not reported, since discordance with absolute values may lead to misinterpretation of CBC data. Current Interpretive Data was last revised on 2018. Testing performed by: [place], [address] Lymphocyte pct 9.7 % [facility] ([facility]) Comment: Interpretive Data Percent cell count reference ranges are not reported, since discordance with absolute values may lead to misinterpretation of CBC data. Current Interpretive Data was last revised on 2018. Testing performed by: [place], [address] Monocyte pct 9.6 % [facility] ([facility]) Comment: Interpretive Data Percent cell count reference ranges are not reported, since discordance with absolute values may lead to misinterpretation of CBC data. Current Interpretive Data was last revised on 2018. Testing performed by: [place], [address] Eosinophil pct 0.5 % [facility] ([facility]) Comment: Interpretive Data Percent cell count reference ranges are not reported, since discordance with absolute values may lead to misinterpretation of CBC data. Current Interpretive Data was last revised on 2018. Testing performed by: [place], [address] Basophil pct 0.5 % [facility] ([facility]) Comment: Interpretive Data Percent cell count reference ranges are not reported, since discordance with absolute values may lead to misinterpretation of CBC data. Current Interpretive Data was last revised on 2018. Testing performed by: [place], [address] Blood 01/31/2024 9:20 AM CDT 01/31/2024 9:41 AM CDT us Mia Barger SYNOPTIC METEOROLOGIST LAB BLOOD ORDERABLES Final Result [facility] (ACWORTH) 1 [facility] Department [place] [address] * (ABNORMAL) Comprehensive metabolic panel (01/31/2024 9:20 AM CDT) Sodium 138 135 - 145 mmol/L Comment:Testing performed by : [facility], [place], [address] Potassium, pl 4.1 3.3 - 4.9 mmol/L [facility] ([facility]) Comment:Testing performed by : [facility], [facility], [place], [address] Chloride 101 97 - 110 mmol/L [facility] ([facility]) Comment:Testing performed by : [facility], [facility], [place], [address] CO2 27 22 - 32 mmol/L [facility] ([facility]) Comment:Testing performed by : [facility], [place], [address] Anion gap 10 2 - 15 mmol/L [facility] ([facility]) Comment:Testing performed by : [facility], [facility], [place], [address] BUN 9 6 - 25 mg/dL [facility] ([facility]) Comment:Testing performed by : [facility], [place], [address] Creatinine 0.72 0.60 - 1.10 mg/dL [facility] ([facility]) Comment:Testing performed by : [facility], [place], [address] Glucose 108 70 - 199 mg/dL [facility] ([facility] Comment: Interpretive Data Fasting glucose >/= 126 [...] last revised 2022. Testing performed by: [facility], [facility], [place], [address] Calcium 8.9 8.5 - 10.3 mg/dL [facility] ([facility]) Comment:Testing performed by : [facility], [facility], [place], [address] Bilirubin, total 0.4 0.1 - 1.2 mg/dL [facility] ([facility]) Comment:Testing performed by : [facility], [facility], [place], [address] Protein, pl 5.9(L) 6.5 - 8.5 g/dL [facility] ([facility]) Comment:Testing performed by : [facility], [facility], [place], [address] Albumin 2.9(L) 3.5 - 5.0 g/dL [facility] ([facility]) Comment:Testing performed by : [facility], [facility], [place], [address] Alk phos 127 40 - 130 Units/L [facility] ([facility]) Comment:Testing performed by : [facility], [facility], [place], [address] ALT 5(L) 7 - 45 Units/L [facility] ([facility]) Comment:Testing performed by : [facility], [facility], [place], [address] AST 7(L) 10 - 45 Units/L [facility] ([facility]) Comment:Testing performed by : [facility], [place], [address] Blood 01/31/2024 9:20 AM CDT 01/31/2024 9:38 AM CDT Narrative [facility] ([facility] - 01/31/2024 10:05 AM CDT Sprout us Luis F Lofton MD LAB BLOOD ORDERABLES Final Re sult [facility] ([facility] 1 [facility] Department [place] [address] * (ABNORMAL) CBC with auto differential (01/31/2024 9:20 AM CDT) WBC 5.2 3.8 - 9.9 K/cumm Comment:Testing performed by : [facility] [place], [address], Medical Office [address], [place] [address] Hgb 7.5(L) 11.9 - 15.5 g/dL [facility] ([place]) Comment:Testing performed by : [facility] [address], Medical Office [facility] [address], [place] [address] Hct 26.2(L) 35.6 - 45.5 % [facility] ([place]) Comment:Testing performed by : [facility] [address], Medical Office [facility] [address], [place] [address] Plt 468(H) 150 - 400 K/cumm [facility] ([place]) Comment:Testing performed by : [facility] [address], Medical Office [facility] [address], [place] [address] MPV 8.7(L) 9.1 - 12.3 fL [facility] ([place]) Comment:Testing performed by : [facility] [address], Medical Office [facility] [address], [place] [address] RBC 3.64(L) 3.90 - 5.20 M/cumm [facility] ([place]) Comment:Testing performed by : [facility] [address], Medical Office [facility] [address], [place] [address] MCV 72.0(L) 81.3 - 96.4 fL [facility] ([place]) Comment:Testing performed by : [facility] [address], Medical Office [facility] [address], [place] [address] MCH 20.6(L) 27.1 - 33.3 pg [facility] ([place]) Comment:Testing performed by : [facility] [address], Medical Office [facility] [address], [place] [address] MCHC 28.6(L) 32.3 - 35.7 g/dL [facility] ([place]) Comment:Testing performed by : [facility] [address], Medical Office [facility] [address], [place] [address] RDW CV 21.4(H) 11.1 - 14.9 % [facility] ([place]) Comment:Testing performed by : [facility] [address], Medical Office [facility] [address], [place] [address] RDW SD 56.4(H) 35.7 - 48.1 fL [facility] (ACWORTH) Comment:Testing performed by : [facility] [place], 4 [facility] , Medical Office [facility] [address], [place] [address] NRBC abs Not Measured 0.00 - 0.01 K/cumm [facility] (ACWORTH) Comment:Testing performed by : [facility] [place], 4 [facility] , Medical Office [facility] [address], [place] [address] Blood 01/31/2024 9:20 AM CDT 01/31/2024 9:41 AM CDT Mia Barger SYNOPTIC METEOROLOGIST LAB BLOOD ORDERABLES Final Result [facility] (ACWORTH) 1 [facility] Department [place] [address] documented in this encounter Visit Diagnoses Diagnosis 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
--- OUTSIDE RECORDS SUMMARY | 2024-10-22 14:48 | XMS_ITS | Encounter Summary ---
Author Organization [facility] Healthcare Address [address] [place] [address] Care Team Providers Care Airplane Mechanic Apprentice Name Role Phone Gideon Campbell MD Primary Care Provider Reason for Visit * Reason Comments OP Infusion * Episode Based Medications (Routine) - Closed Specialty Diagnoses / Procedures Referred By Contac t Referred To Contact Diagnoses 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 secondary to inadequate dietary iron intake Anemia, unspecified type Microcytic anemia Luis F Lofton MD [address] [place] [id number] Phone: tel: fax: [address] [place] [address] Phone: tel: Referral ID Status Reason Start Date Expiration Date Visits Re quested Visits Authorized [id number] Closed 12/23/2023 12/22/2024 3 3 Encounter Details Date Type Department Care Team (Late st Contact Info) Description 12/28/2023 9:00 AM CDT Infusion [address] [place] [phone] 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 secondary to inadequate dietary [...] file Legal Sex Female 8:30 AM ASSISTANT CHIEF OF POLICE Gender Identity Female 10/06/2021 4:28 PM ASSISTANT CHIEF OF POLICE Sexual Orientation Choose not to disclose 2020 4:28 PM ASSISTANT CHIEF OF POLICE documented as of this encounter Last Filed [...] 12/28/2023 documented in this encounter Care Teams Airplane Mechanic Apprentice Relationship Specialty Start Date End Date Gideon Campbell MD [address] [place] [address] [address] [place] [address] PCP - General Family Medicine 07/19/23 documented as of this encounter
--- OUTSIDE RECORDS SUMMARY | 2024-10-22 14:48 | XMS_ITS | Referral Summary ---
Author Organization [facility] Address [address] [place] [address] Care Team Providers Care Paediatric Surgeon Name Role Phone Gideon Campbell MD Primary Care Provider [phone] Allergies No known active allergies Medications ascorbic [...] 06/15/2023 Assessment & Plan (10/18/2023 2:47 PM MATH INTERVENTIONIST): Worsening sx at this time Weight loss 01/27/2023 Assessment & Plan (10/18/2023 2:38 PM MATH INTERVENTIONIST): Wt Readings from Last 3 Encounters: 10/18/23 [...] is recommended that he remain anticoagulated for thromboprophylaxis.[id number]. Left carotid bruit 10/13/2017 Ventricular ectopy 05/17/2017 [...] 04/07/2017 Assessment & Plan (10/18/2023 2:39 PM MATH INTERVENTIONIST): BP Readings from Last 3 Encounters: 10/18/23 [...] EKG. Assessment & Plan (08/19/2017 10:05 AM MATH INTERVENTIONIST): Post repeat ablation of her highly symptomatic [...] an office visit and 12 lead EKG. custodial current use of anticoagulant therapy 0 03/29/2017 [...] bleeding Assessment & Plan (08/19/2017 10:05 AM MATH INTERVENTIONIST): She remains anticoagulated on Coumadin. She has a [id number] score of 4, therefore it is recommended that she remain anticoagulated for thromboprophylaxis. Assessment & Plan (05/17/2017 2:10 PM CDT): She remains anticoagulated with Coumadin.She has a [id number] score of 4(annualized stroke risk of 4%), [...] on file Legal Sex Female 8:30 AM MATH INTERVENTIONIST Gender Identity Female 10/06/2021 4:28 PM MATH INTERVENTIONIST Sexual Orientation Choose not to disclose 2020 4:28 PM MATH INTERVENTIONIST Last Filed Vital Signs Vital Sign Reading [...] Body Mass Index 21.52 12/13/2023 10:47 AM MATH INTERVENTIONIST Plan of Treatment Not on [place] [address] [facility] MEDICARE SOLUTIONS MEDICARE SOLUTIONS Care Teams Paediatric Surgeon Relationship Specialty Start Date End Date Gideon Campbell MD [address] [facility] [address] [place] [address] PCP - General Family Medicine 07/19/23
--- OUTSIDE RECORDS SUMMARY | 2024-10-22 14:48 | XMS_ITS | Encounter Summary ---
Author Organization [facility] Healthcare Address [address] [place] [address] Care Team Providers Care Ornamental Metal Erector Name Role Phone Gideon Campbell MD Primary Care Provider [phone] Reason for Visit * Reason Onset Date Comments Medical Question/Miscellaneous 02/07/2024 Encounter Details Date Type Department Care Team (Late st Contact Info) Description 02/07/2024 Telephone [facility] Medical Group Primary Care at [address] [address] Gideon Campbell MD [address] [place] [address] [address] [place] [address] Medical Question/Miscellaneous Social History Tobacco [...] file Legal Sex Female 8:30 AM DIRECTOR RECREATION Gender Identity Female 10/06/2021 4:28 PM DIRECTOR RECREATION Sexual Orientation Choose not to disclose 2020 4:28 PM DIRECTOR RECREATION documented as of this encounter Miscellaneous Notes [...] if rheuymatology will be so helpful at [facility] time, but we can do either. [...] patients daughter Nel Evans is, Ph. # [phone]. Please all her back with the advise on all of this. Does message need to be routed? Yes-Action Needed documented in this encounter Plan of Treatment Not on file documented as of this encounter Visit Diagnoses Not on filedocumented in this encounter Care Teams Ornamental Metal Erector Relationship Specialty Start Date End Date Gideon Campbell MD 2 [facility] [address] [place] [address] PCP - General Family Medicine 07/19/23 documented as of this encounter
--- OUTSIDE RECORDS SUMMARY | 2024-10-22 14:48 | XMS_ITS | Encounter Summary ---
Author Organization [facility] Healthcare Address [address] [place] [address] Care Team Providers Care Human Resource Analyst Name Role Phone Gideon Campbell MD Primary Care Provider Reason for Referral * Consultation (Routine) - Authorized Specialty Diagnoses / Procedures Referred By Contac t Referred To Contact Pain Management Diagnoses Chronic joint pain Chronic back pain, unspecified back location, unspecified back pain laterality Gideon Campbell MD [address] [place] [address] [address] [place] [address] Phone: tel: fax: Wendi Washington MD Phone: tel: fax: Referral ID Status Reason Start Date Expiration Date Visits Requested Visits Authorized [id number] Authorized Specialty Services Required 02/15/2024 03/16/2025 1 1 Question Answer Please select the performing region: [facility] [144] To provider: WENDI WASHINGTON [[id number]] # of visits: 1 Comments Or other Provider * Consultation (Routine) - Closed Specialty Diagnoses / Procedures Referred By Contac t Referred To Contact Gastroenterology Diagnoses Other iron deficiency anemia Gideon Campbell MD [address] [facility] [address] [place] [address] Phone: tel: fax: Maynor Reyna MD 2 [facility] [address] [place] [address] Phone: tel: fax: Referral ID Status Reason Start Date Expiration Date V isits Requested Visits Authorized [id number] Closed Specialty Services Required 02/15/2024 03/16/2025 1 1 Question Answer Please select the performing region: External Order [171] To provider: MAYNOR REYNA [[id number]] # of visits: 1 Comments [facility] [address]Khalid Reyna (P) [phone] (F) [phone] Encounter Details Date Type Department Care Team (Late st Contact Info) Description 02/15/2024 Orders Only [facility] Medical Group Primary Care at [place] [address] [place] [address] Gideon Campbell MD [address] [place] [address] [address] [place] [address] Other iron deficiency anemia; Chronic joint pain; [...] file Legal Sex Female 8:30 AM SALES REPRESENTATIVE [employer] Gender Identity Female 10/06/2021 4:28 PM SALES REPRESENTATIVE [employer] Sexual Orientation Choose not to disclose 2020 4:28 PM SALES REPRESENTATIVE [employer] documented as of this encounter Plan of [...] laterality documented in this encounter Care Teams Human Resource Analyst Relationship Specialty Start Date End Date Gideon Campbell MD [address] [facility] [address] [place] [address] PCP - General Family Medicine 07/19/23 documented as of this encounter
--- OUTSIDE RECORDS SUMMARY | 2024-10-22 14:48 | XMS_ITS | Clinical Summary ---
Author Organization [facility] Address [address] [place] [address] Care Team Providers Care Decontaminator Name Role Phone Gideon Campbell MD Primary Care Provider [phone] Allergies No known active allergies Medications ascorbic [...] 06/15/2023 Assessment & Plan (10/18/2023 2:47 PM PRODUCTION MATERIAL HANDLER): Worsening sx at this time Weight loss 01/27/2023 Assessment & Plan (10/18/2023 2:38 PM PRODUCTION MATERIAL HANDLER): Wt Readings from Last 3 Encounters: 10/18/23 [...] is recommended that he remain anticoagulated for thromboprophylaxis.[id number]=9. Left carotid bruit 10/13/2017 Ventricular ectopy 05/17/2017 [...] 04/07/2017 Assessment & Plan (10/18/2023 2:39 PM PRODUCTION MATERIAL HANDLER): BP Readings from Last 3 Encounters: 10/18/23 [...] EKG. Assessment & Plan (08/19/2017 10:05 AM PRODUCTION MATERIAL HANDLER): Post repeat ablation of her highly symptomatic [...] an office visit and 12 lead EKG. halfway current use of anticoagulant therapy 0 03/29/2017 [...] bleeding Assessment & Plan (08/19/2017 10:05 AM PRODUCTION MATERIAL HANDLER): She remains anticoagulated on Coumadin. She has a IHC8OM-WXQj score of 4, therefore it is recommended that she remain anticoagulated for thromboprophylaxis. Assessment & Plan (05/17/2017 2:10 PM CDT): She remains anticoagulated with Coumadin.She has a COO9XC8-HGXz score of 4(annualized stroke risk of 4%), [...] ca rtlage Hypertension Arthritis 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 watermaster current use of anticoagulant Family History Medical [...] file Legal Sex Female 8:30 AM PRODUCTION MATERIAL HANDLER Gender Identity Female 10/06/2021 4:28 PM PRODUCTION MATERIAL HANDLER Sexual Orientation Choose not to disclose 2020 4:28 PM PRODUCTION MATERIAL HANDLER Obstetrics History Last Filed Vital Signs Vital [...] Body Mass Index 21.52 12/13/2023 10:47 AM PRODUCTION MATERIAL HANDLER Plan of Treatment Health Maintenance Due Date [...] 10/18/2023, 07/29/2023, 07/08/2023 Insurance MEDICARE [facility] MEDICARE [facility] MED[facility] Address: [address] [address] [place] [address] [address] [facility] MED[facility] Address: [address] [address] [place] [address] Care Teams Decontaminator Relationship Specialty Start Date End Date Gideon Campbell MD [address] [facility] [place] [address] PCP - General Family Medicine 07/19/23
--- OUTSIDE RECORDS SUMMARY | 2024-10-22 14:48 | XMS_ITS | Encounter Summary ---
Author Organization [facility] Healthcare Address [address] [place] [address] Care Team Providers Care Electric Motor Repair Supervisor Name Role Phone Gideon Campbell MD Primary Care Provider [phone] Reason for Visit * Reason Comments OP Infusion * Episode Based Medications (Routine) - Closed Specialty Diagnoses / Procedures Referred By Contac t Referred To Contact Diagnoses 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 secondary to inadequate dietary iron intake Anemia, unspecified type Microcytic anemia Luis F Lofton MD [address] [place] [address] Phone: tel: fax: [address] [address] Phone: tel: Referral ID Status Reason Start Date Expiration Date Visits Re quested Visits Authorized [id number] Closed 12/23/2023 12/22/2024 3 3 Encounter Details Date Type Department Care Team (Late st Contact Info) Description 01/04/2024 2:00 PM CDT Infusion [address] [phone] 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 secondary to inadequate dietary [...] on file Legal Sex Female 8:30 AM TURBINE ATTENDANT Gender Identity Female 10/06/2021 4:28 PM TURBINE ATTENDANT Sexual Orientation Choose not to disclose 2020 4:28 PM TURBINE ATTENDANT documented as of this encounter Last [...] 01/04/2024 documented in this encounter Care Teams Electric Motor Repair Supervisor Relationship Specialty Start Date End Date Gideon Campbell MD 2 [facility] [address] [address] PCP - General Family Medicine 07/19/23 documented as of this encounter
--- OUTSIDE RECORDS SUMMARY | 2024-10-22 14:48 | XMS_ITS | Encounter Summary ---
Author Organization [facility] Healthcare Address [address] [place] [address] Care Team Providers Care Therapy Aide Name Role Phone Gideon Campbell MD Primary Care Provider [phone] Reason for Visit * Reason Comments OP Infusion * Episode Based Medications (Routine) - Closed Specialty Diagnoses / Procedures Referred By Contac t Referred To Contact Diagnoses 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 secondary to inadequate dietary iron intake Anemia, unspecified type Microcytic anemia Luis F Lofton MD [address] [place] [address] Phone: tel: fax: [address] [address] Phone: tel: Referral ID Status Reason Start Date Expiration Date Visits Re quested Visits Authorized [id number] Closed 12/23/2023 12/22/2024 3 3 Encounter Details Date Type Department Care Team (Late st Contact Info) Description 01/11/2024 9:00 AM CDT Infusion [address] [place] [phone] 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 secondary to inadequate dietary [...] on file Legal Sex Female 8:30 AM ELECTRICAL MAINTENANCE MECHANIC Gender Identity Female 10/06/2021 4:28 PM ELECTRICAL MAINTENANCE MECHANIC Sexual Orientation Choose not to disclose 2020 4:28 PM ELECTRICAL MAINTENANCE MECHANIC documented as of this encounter Last [...] 01/11/2024 documented in this encounter Care Teams Therapy Aide Relationship Specialty Start Date End Date Gideon Campbell MD [address] [facility] [address] [place] [address] PCP - General Family Medicine 07/19/23 documented as of this encounter
--- OUTSIDE RECORDS SUMMARY | 2024-10-22 14:48 | XMS_ITS | Encounter Summary ---
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 [...] file Legal Sex Female 8:30 AM PROCUREMENT TECHNICIAN Gender Identity Female 10/06/2021 4:28 PM PROCUREMENT TECHNICIAN Sexual Orientation Choose not to disclose 2020 4:28 PM PROCUREMENT TECHNICIAN documented as of this encounter Plan of Treatment Not on file documented as of this encounter Visit Diagnoses Diagnosis Atrial fibrillation (CMS/HCC) [I48.91]- Primary Atrial fibrillation [facility] current use of anticoagulant therapy documented in this encounter Care Teams Supervisor Correspondence Section Relationship Specialty Start Date End Date Gideon Campbell MD 2 [facility] [place] [id number] PCP - General Family Medicine 07/19/23 documented as of this encounter
--- OUTSIDE RECORDS SUMMARY | 2024-10-22 14:48 | XMS_ITS | Encounter Summary ---
Author Organization [facility] Address [address] [place] [address] Phone Care Team Providers Care Busboy Name Role Phone Gideon Campbell MD Primary Care Provider [phone] Encounter Details Date Type Department Care Team (Late st Contact Info) Description 12/23/2023 Telephone [facility] Oncology [address] [place] [address] [address] Luis F Lofton MD [address] [place] [address] Social History Tobacco Use Types Packs/Day Years [...] on file Legal Sex Female 8:30 AM SEARCH STRATEGIST Gender Identity Female 10/06/2021 4:28 PM SEARCH STRATEGIST Sexual Orientation Choose not to disclose 2020 4:28 PM SEARCH STRATEGIST documented as of this encounter Miscellaneous Notes [...] it, can you please call her at [phone] documented in this encounter Plan of Treatment Not on file documented as of this encounter Visit Diagnoses Not on filedocumented in this encounter Care Teams Busboy Relationship Specialty Start Date End Date Gideon Campbell MD [address] [facility] [place] [address] PCP - General Family Medicine 07/19/23 documented as of this encounter
--- OUTSIDE RECORDS SUMMARY | 2024-10-22 14:48 | XMS_ITS | Encounter Summary ---
Author Organization [facility] Address [address] [place] [address] Phone Care Team Providers Care Stunt Person Name Role Phone Gideon Campbell MD Primary Care Provider [phone] Reason for Visit * Reason Comments Follow-up Anemia Encounter Details Date Type Department Care Team (Late st Contact Info) Description 01/31/2024 9:45 AM CDT Office Visit [facility] Oncology [address] [place] [address] Medical [facility] Charlotte Delio Erickson [address] [place] [address] Luis F Lofton MD [address] [place] [address] [place] [address] 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, unspecified iron deficiency anemia [...] file Legal Sex Female 8:30 AM TITLE INVESTIGATOR Gender Identity Female 10/06/2021 4:28 PM TITLE INVESTIGATOR Sexual Orientation Choose not to disclose 2020 4:28 PM TITLE INVESTIGATOR documented as of this encounter Last Filed [...] Body Mass Index 21.52 12/13/2023 10:47 AM TITLE INVESTIGATOR documented in this encounter Progress Notes * [...] at this time Luis F Lofton MD Supervisor Salvage Internal Medicine-Medical Oncology [facility] Physicians in [address]; [address] [address] Office: (after hours this rolls over to [facility] Oncologist on-call) Laborer Poultry Hatchery completed using M*Modal fluency direct speaking software, therefore, animal therapist variances may occur. documented in this encounter [...] 01/31/2024 documented in this encounter Care Teams Stunt Person Relationship Specialty Start Date End Date Gideon Campbell MD [address] [facility] [address] [place] [address] PCP - General Family Medicine 07/19/23 documented as of this encounter
--- OUTSIDE RECORDS SUMMARY | 2024-10-22 14:48 | XMS_ITS | Continuity of Care Document ---
Author Organization Located within [facility] Address [address] [place] [address] Phone Care Team Providers Care Tank Shop Supervisor Name Role Phone Zimmer OD, Heber [...] Diagnoses Date Provider Providers Copied on Encounter [facility], [address], [place], [place], [id number], [place] tel:[phone] [facility] No Information [phone] 0 Zimmer OD Heber. [address] , [address], [place], [address], [place]. tel:[phone] [facility], [address] [place] [address] [address], [place], [place], [id number], tel:[phone] [facility] No Information [phone] Zimmer OD Heber. [address] , [address], [place], [place], [facility], [place]. tel:[phone] [facility], [address] [place] [address] [address], [place], [place], [id number], [place] tel:[phone] [facility] No Information 0 [phone] Doisy Edward. [address] , [address], [place], [place], [facility], [place]. tel:[phone] Referring Provider: Heber Zimmer OD A, [facility] [place] [address], [place], [place], [facility]. tel:[phone] Office/outpat ient Visit, [facility], [address] [place] [address] [address], [place], [place], [id number], tel:[phone] [facility] No Information 201 0 Doisy Edward. [address], [place], [place], [facility], [place]. tel:[phone] Referring Provider: Heber Zimmer OD A, [facility] [address], [place], [place], [facility]. tel:[phone] [facility], [address] [place] [address] [address], [place], [place], [id number], [place] tel:[phone] [facility] No Information 3-200 9 Zimmer OD Heber. [address] , [address], [place], [place], [facility], [place]. tel:[phone] [facility], [address] [place] [address] [address], [place], [place], [id number], [place] tel:[phone] [facility] No Information 9-200 9 Doisy Edward. [address] , [address], [place], [place], [facility], . tel:[phone] [facility], [address] [place] [address] [address], [place], [place], [id number], tel:[phone] [facility] No Information 8[address] Sathya Nain. [address], [address], [place], [place], [facility], . tel:[phone] Referring Provider: Heber Plunkett, [address], [place], [place], [facility]. tel:[phone] Office/outpat ient Visit, [facility], [address] [place] [address] [address], [place], [place], [id number], tel:[phone] [facility] No Information 200 9 [facility] Nain. [facility] [address], [address], [place], [place], [facility], . tel:[phone] Referring Provider: Heber Plunkett, [address], [place], [place], [facility]. tel:[phone] [facility], [address] [place] [address] [address], [place], [place], [id number], tel:[phone] [facility] No Information 5[address] 9 Zimmer OD Heber. [facility] [address], [address], [place], [place], [facility], [place]. tel:[phone] Family History Family Member Type Diagnosis Age At Onset No Information Payers Payer name Insurance type Covered alliance party ID Authoriza tion(s) No Information Social [...]
--- OUTSIDE RECORDS SUMMARY | 2024-10-22 14:48 | XMS_ITS | Encounter Summary ---
Author Organization [facility] Address [address] [place] [address] Phone Care Team Providers Care Manufacturers Agent Name Role Phone Gideon Campbell MD Primary Care Provider [phone] Encounter Details Date Type Department Care Team (Late st Contact Info) Description 12/23/2023 Orders Only [facility] Oncology [address] [place] [address] Karen Giles RN 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, [...] on file Legal Sex Female 8:30 AM RANGE ECOLOGIST Gender Identity Female 10/06/2021 4:28 PM RANGE ECOLOGIST Sexual Orientation Choose not to disclose 2020 4:28 PM RANGE ECOLOGIST documented as of this encounter Plan of Treatment Not on file documented as of this encounter Visit Diagnoses Diagnosis 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, unspecified iron deficiency anemia type- Primary documented in this encounter Orders Appointment Requests Count Last Ordered Date Fi rst Ordered Date ONCBCN INFUSION APPT REQUEST 3 01/11/2024 12/28/2023 documented in this encounter Care Teams Manufacturers Agent Relationship Specialty Start Date End Date Gideon Campbell MD [address] [facility] [address] [place] [address] PCP - General Family Medicine 07/19/23 documented as of this encounter
--- OUTSIDE RECORDS SUMMARY | 2024-10-22 14:49 | XMS_ITS | Encounter Summary ---
Author Organization [facility] Healthcare Address [address] [place] [address] Care Team Providers Care Knitting Supervisor Name Role Phone Gideon Campbell MD Primary Care Provider [phone] Reason for Visit * Reason Comments Leg Pain Hip Pain Follow-up Pt is trying to get back on surgery list. Dr. Lofton found something in her lab that needs discussed. Leg Swelling Pt R leg and knee is swollen Encounter Details Date Type Department Care Team (Late st Contact Info) Description 10/18/2023 2:30 PM SENIOR SOLUTIONS CONSULTANT Office Visit [facility] Medical Group Primary Care at [address] [address] Gideon Campbell MD [address] [place] [address] Weight loss (Primary Dx); Essential hypertension; [...] file Legal Sex Female 8:30 AM SENIOR SOLUTIONS CONSULTANT Gender Identity Female 10/06/2021 4:28 PM SENIOR SOLUTIONS CONSULTANT Sexual Orientation Choose not to disclose 2020 4:28 PM SENIOR SOLUTIONS CONSULTANT documented as of this encounter Last Filed Vital Signs Vital Sign Reading Time Taken Comments Blood Pressure 160/78 10/18/2023 2:18 PM SENIOR SOLUTIONS CONSULTANT Pulse 63 10/18/2023 2:18 PM SENIOR SOLUTIONS CONSULTANT Temperature - - Respiratory Rate 16 10/18/2023 2:18 PM SENIOR SOLUTIONS CONSULTANT Oxygen Saturation 99% 10/18/2023 2:18 PM SENIOR SOLUTIONS CONSULTANT Inhaled Oxygen Concentration - - Weight 59.1 kg (130 lb 4.8 oz) 10/18/2023 2:18 P M SENIOR SOLUTIONS CONSULTANT Height 161.3 cm (5' 3.5 ) 10/18/2023 2:18 PM SENIOR SOLUTIONS CONSULTANT Body Mass Index 22.72 10/18/2023 2:18 PM SENIOR SOLUTIONS CONSULTANT documented in this encounter Ordered Prescriptions [...] for 12 hours. No follow-ups on file. OR SOLUTIONS CONSULTANT documented in this encounter Miscellaneous Notes * Assessment & Plan Note - Gideon Campbell MD - 10/18/2023 2:47 PM CSTAssociated Problem(s): Primary osteoarthritis of right hip Worsening sx at this time OR SOLUTIONS CONSULTANT * Assessment & Plan Note - [...] 06/16/2023 Significantly elevated Likely 2/2 to pain OR SOLUTIONS CONSULTANT * Assessment & Plan Note - Gideon Campbell MD - 10/18/2023 2:38 PM CSTAssociated Problem(s): Weight loss Wt Readings from Last 3 Encounters: 10/18/23 59.1 kg (130 lb 4.8 oz) 10/18/23 57 kg (125 lb 9.6 oz) 07/29/23 56.9 kg (125 lb 6.4 oz) OR SOLUTIONS CONSULTANT documented in this encounter Plan of Treatment Not on file documented as of this encounter Visit Diagnoses Diagnosis Weight loss- Primary Loss of weight Essential hypertension Unspecified essential hypertension Primary osteoarthritis of right hip Microcytic anemia Unspecified iron deficiency anemia documented in this encounter Care Teams Knitting Supervisor Relationship Specialty Start Date End Date Gideon Campbell MD [address] [facility] [address] [address] PCP - General Family Medicine 07/19/23 documented as of this encounter
--- OUTSIDE RECORDS SUMMARY | 2024-10-22 14:49 | XMS_ITS | Encounter Summary ---
Author Organization [facility] Healthcare Address [address] [place] [address] Care Team Providers Care Communications Manager Name Role Phone Gideon Campbell MD Primary Care Provider [phone] Encounter Details Date Type Department Care Team (Late st Contact Info) Description 10/18/2023 Telephone [facility] Medical Group Cardiology [address] [place] [address] Andrade Brown MD [facility] [place] [address] Social History Tobacco Use Types Packs/Day Years [...] file Legal Sex Female 8:30 AM EXECUTIVE ASSISTANT Gender Identity Female 10/06/2021 4:28 PM EXECUTIVE ASSISTANT Sexual Orientation Choose not to disclose 2020 4:28 PM EXECUTIVE ASSISTANT documented as of this encounter Miscellaneous Notes * Telephone Encounter - Jacque Hitchcock RN - 10/22/2023 10:21 AM EXECUTIVE ASSISTANT Unable to reach pt by phone, [employer] message sent. UTIVE ASSISTANT * Telephone Encounter - Jacque Hitchcock RN - 10/20/2023 1:55 PM EXECUTIVE ASSISTANT LM on with response from [facility]. Requested pt return call to schedule a f/u in the office with [facility]. UTIVE ASSISTANT * Telephone Encounter - Jacque Hitchcock RN - 10/18/2023 4:55 PM EXECUTIVE ASSISTANT Spoke with pt after getting INR results [...] pt does not have a f/u with [facility]. Will forward to [facility]. UTIVE ASSISTANT documented in this encounter Plan of Treatment Not on file documented as of this encounter Visit Diagnoses Not on filedocumented in this encounter Care Teams Communications Manager Relationship Specialty Start Date End Date Gideon Campbell MD [address] [place] [address] [place] [address] PCP - General Family Medicine 07/19/23 documented as of this encounter
--- OUTSIDE RECORDS SUMMARY | 2024-10-22 14:49 | XMS_ITS | Encounter Summary ---
Author Organization [facility] Address [address] [place] [address] Phone Care Team Providers Care Wing Scorer Name Role Phone Gideon Campbell MD Primary Care Provider [phone] Encounter Details Date Type Department Care Team (Late st Contact Info) Description 08/04/2023 Telephone [facility] Oncology [address] [place] [address] Yamileth Santiago, JACOB Social History Tobacco [...] on file Legal Sex Female 8:30 AM SOAP DRIER TENDER Gender Identity Female 10/06/2021 4:28 PM SOAP DRIER TENDER Sexual Orientation Choose not to disclose 2020 4:28 PM SOAP DRIER TENDER documented as of this encounter Miscellaneous [...] on filedocumented in this encounter Care Teams Wing Scorer Relationship Specialty Start Date End Date Gideon Campbell MD [address] [facility] [address] [place] [address] PCP - General Family Medicine 07/19/23 documented as of this encounter
--- OUTSIDE RECORDS SUMMARY | 2024-10-22 14:49 | XMS_ITS | Encounter Summary ---
Author Organization [facility] Address [address] [place] [address] Phone Care Team Providers Care Salesperson Automobiles Name Role Phone Gideon Campbell MD Primary Care Provider [phone] Encounter Details Date Type Department Care Team (Late st Contact Info) Description 10/28/2023 Orders Only [facility] Oncology [address] [place] [phone] Carmela Puri RN 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, [...] file Legal Sex Female 8:30 AM MILL LABOR SUPERVISOR Gender Identity Female 10/06/2021 4:28 PM MILL LABOR SUPERVISOR Sexual Orientation Choose not to disclose 2020 4:28 PM MILL LABOR SUPERVISOR documented as of this encounter Miscellaneous Notes * Addendum Note - Deborah Armstrong CLT - 10/28/2023 4:36 PM CSTAddended by: DEBORAH ARMSTRONG on: 12/13/2023 10:12 AM Modules accepted: Orders LABOR SUPERVISOR * Addendum Note - Sarita Parnell CLT - 10/28/2023 4:36 PM CSTAddended by: SARITA PARNELL on: 12/13/2023 11:37 AM Modules accepted: Orders LABOR SUPERVISOR documented in this encounter Plan of Treatment Not on file documented as of this encounter Results * (ABNORMAL) CBC with auto differential (12/13/2023 10:15 AM MILL LABOR SUPERVISOR) WBC 6.2 3.8 - 9.9 K/cumm [facility] ([place]) Comment:Testing performed by : [facility] [address], Medical Office [facility] [address], [place] [address] Hgb 7.5(L) 11.9 - 15.5 g/dL [facility] ([place]) Comment:Testing performed by : [facility] [address], Medical Office [facility] [address], [place] [address] Hct 26.7(L) 35.6 - 45.5 % [facility] ([place]) Comment:Testing performed by : [facility] [address], Medical Office [facility] [address], [place] [address] Plt 559(H) 150 - 400 K/cumm [facility] ([place]) Comment:Testing performed by : [facility] [address], Medical Office [facility] [address], [place] [address] MPV 8.1(L) 9.1 - 12.3 fL [facility] ([place]) Comment:Testing performed by : [facility] [address], Medical Office [facility] B [facility] [address], [place] [address] RBC 3.98 3.90 - 5.20 M/cumm [facility] ([place]) Comment:Testing performed by : [facility] [address], Medical Office [facility] B [facility] [address], [place] [address] MCV 67.1(L) 81.3 - 96.4 fL [facility] ([place]) Comment:Testing performed by : [facility] [address], Medical Office [facility] [address], [place] [address] MCH 18.8(L) 27.1 - 33.3 pg [facility] ([place]) Comment:Testing performed by : [facility] [address], Medical Office [facility] [address], [place] [address] MCHC 28.1(L) 32.3 - 35.7 g/dL [facility] ([place]) Comment:Testing performed by : [facility] [address], Medical Office [facility] [address], [place] [address] RDW CV 19.2(H) 11.1 - 14.9 % [facility] ([place]) Comment:Testing performed by : [facility] [address], Medical Office [facility] B [facility] [address], [place] [address] RDW SD 47.1 35.7 - 48.1 fL [facility] ([place]) Comment:Testing performed by : [facility] [address], Medical Office [facility] [address], [place] [address] NRBC abs Not Measured 0.00 - 0.01 K/cumm [facility] ([place]) Comment:Testing performed by : [facility] [address], Medical Office [facility] B [facility] [address], [place] [address] Blood 12/13/2023 10:1 5 AM MILL LABOR SUPERVISOR 12/13/2023 10:20 AM MILL LABOR SUPERVISOR us Luis F Lofton MD LAB BLOOD ORDERABLES Final Re sult [facility] ([place]) 1 [facility] Department [place] [address] * (ABNORMAL) Iron profile w/ IBC (12/13/2023 10:15 AM MILL LABOR SUPERVISOR) Iron 14(L) 35 - 145 mcg/dL [facility] Comment:Testing performed by : [facility], [facility], [place], [address] TIBC 172(L) 250 - 400 mcg/dL [facility] ([place]) Comment:Testing performed by : [facility], [facility], [place], [address] Transferrin saturation 8(L) 20 - 50 % [facility] ([place]) Comment:Testing performed by : [facility], [place], [address] Blood 12/13/2023 10:1 5 AM MILL LABOR SUPERVISOR 12/13/2023 10:32 AM MILL LABOR SUPERVISOR Luis F Lofton MD LAB BLOOD ORDERABLES Final Re sult [facility] ([place]) [address] [place] [address] Department [place] [address] * (ABNORMAL) Ferritin (12/13/2023 10:15 AM MILL LABOR SUPERVISOR) Ferritin 216(H) 15 - 150 ng/mL [facility] ([place]) Comment:Testing performed by : [facility], [place], [address] Blood 12/13/2023 10:1 5 AM MILL LABOR SUPERVISOR 12/13/2023 10:32 AM MILL LABOR SUPERVISOR Luis F Lofton MD LAB BLOOD ORDERABLES Final Re sult [facility] ([place] [address] [place] [address] Department [place] [address] * (ABNORMAL) Reticulocyte Count (12/13/2023 10:15 AM MILL LABOR SUPERVISOR) Retics, absolute 0.038 0.020 - 0.087 M/cumm [facility] ([place]) Comment:Testing performed by : [facility], [facility], [place], [address] Retics 1.0 0.4 - 2.9 % [facility] ([place]) Comment:Testing performed by : [facility], [facility], [place], [address] Reticulocyte Hgb 17.7(L) 30.5 - 38.0 pg [facility] ([place]) Comment:Testing performed by : [facility], [facility], [place], [address] Blood 12/13/2023 10:1 5 AM MILL LABOR SUPERVISOR 12/13/2023 10:32 AM MILL LABOR SUPERVISOR us Luis F Lofton MD LAB BLOOD ORDERABLES Final Re sult [facility] ([place]) 1 [facility] Department [place] [address] documented in this encounter Visit Diagnoses Diagnosis 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, unspecified iron deficiency anemia type- Primary PAD (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) (HCC) Unspecified peripheral vascular disease documented in this encounter Orders Appointment Requests Count Last Ordered Date Fi rst Ordered Date ONCBCN LAB APPOINTMENT 1 12/13/2023 documented in this encounter Care Teams Salesperson Automobiles Relationship Specialty Start Date End Date Gideon Campbell MD [address] [facility] [address] [place] [address] PCP - General Family Medicine 07/19/23 documented as of this encounter
--- OUTSIDE RECORDS SUMMARY | 2024-10-22 14:49 | XMS_ITS | Encounter Summary ---
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 current use of anticoagulant therapy [...] on file Legal Sex Female 8:30 AM NIGHT WAREHOUSE MANAGER Gender Identity Female 10/06/2021 4:28 PM NIGHT WAREHOUSE MANAGER Sexual Orientation Choose not to disclose 2020 4:28 PM NIGHT WAREHOUSE MANAGER documented as of this encounter Plan of Treatment Not on file documented as of this encounter Visit Diagnoses Diagnosis Atrial fibrillation (CMS/HCC) [I48.91]- Primary Atrial fibrillation senior living current use of anticoagulant therapy documented in this encounter Care Teams Checker Product Design Relationship Specialty Start Date End Date Gideon Campbell MD 2 [facility] [place] [id number] PCP - General Family Medicine 07/19/23 documented as of this encounter
--- OUTSIDE RECORDS SUMMARY | 2024-10-22 14:49 | XMS_ITS | Encounter Summary ---
Author Organization [facility] Healthcare Address [address] [place] [address] Care Team Providers Care Detective Automobile Section Name Role Phone Denis Platt MD Primary Care Provide r Encounter Details Date Type Department Care Team (Late st Contact Info) Description 07/08/2023 1:25 PM CDT Lab [address] [address] Microcytic anemia; 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 goal <100 Social [...] on file Legal Sex Female 8:30 AM ASBESTOS SHINGLE INSPECTOR Gender Identity Female 10/06/2021 4:28 PM ASBESTOS SHINGLE INSPECTOR Sexual Orientation Choose not to disclose 2020 4:28 PM ASBESTOS SHINGLE INSPECTOR documented as of this encounter Plan of [...] Final Resul t [facility] ([place]) 1 [facility] Department [place] [address] * Lipid panel (07/08/2023 1:30 PM CDT) [...] Final Resul t [facility] ([place]) 1 [facility] Department of Laboratories [place], [place] [id number] * (ABNORMAL) Iron profile w/ IBC (07/08/2023 1:30 PM CDT) Iron 11(L) 35 - 145 mcg/dL [facility] ([place]) TIBC 161(L) 250 - 400 mcg/dL [facility] ([place]) Transferrin saturation 7(L) 20 - 50 % [facility] ([place]) Blood 07/08/2023 1:30 PM CDT 07/08/2023 2:09 PM CDT us Gideon Campbell MD LAB BLOOD ORDERABLES Final Resul t Performing Organization Address City/[facility]/ZIP Co de Phone Number [facility] ([place]) 1 [facility] [employer] [place] [address] * (ABNORMAL) CBC with auto differential (07/08/2023 [...] Final Resul t [facility] ([place]) 1 [facility] Department of [employer] [place] [address] documented in this encounter Visit Diagnoses Diagnosis Microcytic anemia Unspecified iron deficiency anemia 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 goal <100 Other and unspecified hyperlipidemia documented in this encounter Care Teams Detective Automobile Section Relationship Specialty Start Date End Date Denis Platt MD [address] [place] [address] PCP - General Family Medicine 01/14/22 07/18/23 documented as of this encounter
--- OUTSIDE RECORDS SUMMARY | 2024-10-22 14:49 | XMS_ITS | Encounter Summary ---
Author Organization [facility] Healthcare Address [address] [place] [address] Care Team Providers Care Automation Test Developer Name Role Phone Gideon Campbell MD Primary Care Provider Encounter Details Date Type Department Care Team ([facility] st Contact Info) Description 07/29/2023 Telephone [facility] Medical Group Primary Care at [address] [place] [address] Gideon Campbell MD [address] [place] [address] [address] [place] [address] Social History Tobacco Use Types [...] file Legal Sex Female 8:30 AM SENIOR COPYWRITER Gender Identity Female 10/06/2021 4:28 PM SENIOR COPYWRITER Sexual Orientation Choose not to disclose 2020 4:28 PM SENIOR COPYWRITER documented as of this encounter Miscellaneous Notes [...] on filedocumented in this encounter Care Teams Automation Test Developer Relationship Specialty Start Date End Date Gideon Campbell MD 2 [facility] [address] [address] PCP - General Family Medicine 07/19/23 documented as of this encounter
--- OUTSIDE RECORDS SUMMARY | 2024-10-22 14:49 | XMS_ITS | Encounter Summary ---
Author Organization [facility] Medical Group Address [address] [facility] [address] [place] [address] Care Team Providers Care Slab Miller Operator Name Role Phone Denis Platt MD Primary Care Provide r Reason for Visit * Reason Comments Establish Care New patient Hip Pain Knee Pain Encounter Details Date Type Department Care Team (Late st Contact Info) Description 07/08/2023 12:30 PM CDT Office Visit [facility] Medical Group Primary Care at [address] [place] [address] Gideon Campbell MD [address] [place] [address] [address] [place] [address] Essential hypertension (Primary Dx); Paroxysmal atrial fibrillation (CMS/HCC) (HCC); Microcytic anemia; 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 goal <100; Non-rheumatic aortic stenosis; Thrombocytosis; intermediate current use of anticoagulant therapy Social [...] on file Legal Sex Female 8:30 AM INSPECTION SUPERVISOR Gender Identity Female 10/06/2021 4:28 PM INSPECTION SUPERVISOR Sexual Orientation Choose not to disclose 2020 4:28 PM INSPECTION SUPERVISOR documented as of this encounter Last [...] OTHER MEDICAL, and Hypertension. 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 Pt no [...] Final Resul t [facility] ([place]) 1 [facility] [place] [address] * (ABNORMAL) Iron profile w/ IBC (07/08/2023 1:30 PM CDT) Iron 11(L) 35 - 145 mcg/dL [facility] ([place]) TIBC 161(L) 250 - 400 mcg/dL [facility] ([place]) Transferrin saturation 7(L) 20 - 50 % [facility] ([place]) Blood 07/08/2023 1:30 PM CDT 07/08/2023 2:09 PM CDT Gideon Campbell MD LAB BLOOD ORDERABLES Final Resul t [facility] ([place]) 1 [facility] [place] [address] * (ABNORMAL) CBC with auto differential (07/08/2023 [...] ([place]) MCH 20.3(L) 27.1 - 33.3 pg [facility] MCHC 28.6(L) 32.3 - 35.7 g/dL [facility] ([place]) RDW CV 18.4(H) 11.1 - 14.9 % [facility] ([place] RDW SD 46.8 35.7 - 48.1 fL [facility] NRBC abs 0.00 0.00 - 0.01 K/cumm [facility] Blood 07/08/2023 1:30 PM CDT 07/08/2023 2:09 PM CDT us Gideon Campbell MD LAB BLOOD ORDERABLES Final Resul t [facility] ([place]) 1 [facility] [place] [address] documented in this encounter Visit Diagnoses Diagnosis Essential hypertension- Primary Unspecified essential hypertension Paroxysmal atrial fibrillation (CMS/HCC) (HCC) Atrial fibrillation Microcytic anemia Unspecified iron deficiency anemia 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 goal <100 Other and unspecified hyperlipidemia Non-rheumatic aortic stenosis Thrombocytosis Essential thrombocythemia 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
--- OUTSIDE RECORDS SUMMARY | 2024-10-22 14:49 | XMS_ITS | Encounter Summary ---
Author Organization [facility] Healthcare Address [address] [place] [address] Care Team Providers Care Medical Stenographer Name Role Phone Denis Platt MD Primary Care Provide r Encounter Details Date Type Department Care Team (Late st Contact Info) Description 06/16/2023 Orders Only [facility] Cardiology [address] [place] [address] Stormy Bell Social History Tobacco Use Types Packs/Day Years Used Date Smoking Tobacco: Former Cigarettes Q uit: 09/28/1978 Smokeless Tobacco: Never Alcohol Use Standard Drinks/Week Comments Yes 0 (1 standard drink = 0.6 oz pur e alcohol) Comments Unknown Sex and Gender Information Value Date Recorded Sex Assigned at Not on file Legal Sex Female 8:30 AM EXTENSION CLERK Gender Identity Female 10/06/2021 4:28 PM EXTENSION CLERK Sexual Orientation Choose not to disclose 2020 4:28 PM EXTENSION CLERK documented as of this encounter Plan of Treatment Not on file documented as of this encounter Visit Diagnoses Not on filedocumented in this encounter Care Teams Medical Stenographer Relationship Specialty Start Date End Date Denis Platt MD [address] [place] [address] PCP - General Family Medicine 01/14/22 07/18/23 documented as of this encounter
--- OUTSIDE RECORDS SUMMARY | 2024-10-22 14:49 | XMS_ITS | Encounter Summary ---
Author Organization [facility] Healthcare Address [address] [place] [address] Care Team Providers Care Delivery Truck Driver Name Role Phone Gideon Campbell MD Primary Care Provider Encounter Details Date Type Department Care Team (Late st Contact Info) Description 07/30/2023 Orders Only [facility] Medical Group Primary Care at [address] [place] [address] Gideon Campbell MD [address] [place] [address] [address] [place] [address] Other iron deficiency anemia (Primary [...] on file Legal Sex Female 8:30 AM CHEMICAL PROCESS ANALYST Gender Identity Female 10/06/2021 4:28 PM CHEMICAL PROCESS ANALYST Sexual Orientation Choose not to disclose 2020 4:28 PM CHEMICAL PROCESS ANALYST documented as of this encounter Plan of Treatment Not on file documented as of this encounter Visit Diagnoses Diagnosis Other iron deficiency anemia- Primary Unintentional weight loss Loss of weight documented in this encounter Care Teams Delivery Truck Driver Relationship Specialty Start Date End Date Gideon Campbell MD 2 [facility] [address] [place] [address] PCP - General Family Medicine 07/19/23 documented as of this encounter
--- OUTSIDE RECORDS SUMMARY | 2024-10-22 14:49 | XMS_ITS | Encounter Summary ---
Author Organization [facility] Address [address] [place] [address] Phone Care Team Providers Care School Operations Manager Name Role Phone Gideon Campbell MD Primary Care Provider [phone] Encounter Details Date Type Department Care Team (Late st Contact Info) Description 10/28/2023 Orders Only [facility] Oncology [address] [place] [address] Medical [facility] [address] [address] Luis F Lofton MD [address] [place] [address] Social History Tobacco Use Types Packs/Day Years [...] on file Legal Sex Female 8:30 AM 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
--- OUTSIDE RECORDS SUMMARY | 2024-10-22 14:49 | XMS_ITS | Encounter Summary ---
Author Organization [facility] Healthcare Address [address] [place] [address] Care Team Providers Care Yarder Operator Name Role Phone Gideon Campbell MD Primary Care Provider [phone] Encounter Details Date Type Department Care Team (Late st Contact Info) Description 07/19/2023 Telephone [facility] Medical Group Primary Care at [address] [place] [address] Gideon Campbell MD [address] [place] [address] [address] [place] [address] Social History Tobacco Use Types [...] on file Legal Sex Female 8:30 AM PRESSER FIRST Gender Identity Female 10/06/2021 4:28 PM PRESSER FIRST Sexual Orientation Choose not to disclose 2020 4:28 PM PRESSER FIRST documented as of this encounter Miscellaneous Notes * Telephone Encounter - Diandra Christopher LPN - 07/19/2023 3:18 PM CDT Patient made aware of lab results. Patient declines being referred to shoulder sawyer at this time andwants to discuss it [...] on filedocumented in this encounter Care Teams Yarder Operator Relationship Specialty Start Date End Date Gideon Campbell MD [address] [facility] [address] [place] [address] PCP - General Family Medicine 07/19/23 documented as of this encounter
--- OUTSIDE RECORDS SUMMARY | 2024-10-22 14:49 | XMS_ITS | Encounter Summary ---
Author Organization [facility] Address [address] [place] [address] Phone Care Team Providers Care Director Of Dietary Name Role Phone Gideon Campbell MD Primary Care Provider [phone] Encounter Details Date Type Department Care Team (Late st Contact Info) Description 12/10/2023 Telephone [facility] Oncology [address] [place] [address] Deborah Armstrong, JACOB Social History Tobacco [...] on file Legal Sex Female 8:30 AM TRANSFORMATION MANAGER Gender Identity Female 10/06/2021 4:28 PM TRANSFORMATION MANAGER Sexual Orientation Choose not to disclose 2020 4:28 PM TRANSFORMATION MANAGER documented as of this encounter Miscellaneous Notes * Telephone Encounter - Deborah Armstrong CLT - 12/10/2023 1:50 PM TRANSFORMATION MANAGER 12/13/23 appt confirmation SFORMATION MANAGER documented in this encounter Plan of Treatment Not on file documented as of this encounter Visit Diagnoses Not on filedocumented in this encounter Care Teams Director Of Dietary Relationship Specialty Start Date End Date Gideon Campbell MD 2 [facility] [address] [address] PCP - General Family Medicine 07/19/23 documented as of this encounter
--- OUTSIDE RECORDS SUMMARY | 2024-10-22 14:49 | XMS_ITS | Encounter Summary ---
Author Organization [facility] Address [address] [place] [address] Phone Care Team Providers Care Report Specialist Name Role Phone Gideon Campbell MD Primary Care Provider [phone] Encounter Details Date Type Department Care Team (Late st Contact Info) Description 10/25/2023 Telephone [facility] Oncology [address] [place] [phone] Deborah Armstrong, JACOB Social History Tobacco [...] on file Legal Sex Female 8:30 AM POWER PROJECT MANAGER Gender Identity Female 10/06/2021 4:28 PM POWER PROJECT MANAGER Sexual Orientation Choose not to disclose 2020 4:28 PM POWER PROJECT MANAGER documented as of this encounter Miscellaneous Notes * Telephone Encounter - Deborah Armstrong CLT - 10/25/2023 1:08 PM POWER PROJECT MANAGER Patient's daughter Nel Sheihk called regarding lab results. Nel's number is [phone]. Carmela will return her call. R PROJECT MANAGER documented in this encounter Plan of Treatment Not on file documented as of this encounter Visit Diagnoses Not on filedocumented in this encounter Care Teams Report Specialist Relationship Specialty Start Date End Date Gideon Campbell MD [address] [facility] [place] [id number] PCP - General Family Medicine 07/19/23 documented as of this encounter
--- OUTSIDE RECORDS SUMMARY | 2024-10-22 14:49 | XMS_ITS | Encounter Summary ---
Author Organization [facility] Address [address] [place] [address] Phone Care Team Providers Care Storm Sash Maker Name Role Phone Gideon Campbell MD Primary Care Provider [phone] Encounter Details Date Type Department Care Team (Late st Contact Info) Description 08/02/2023 Telephone [facility] Oncology [address] [place] [phone] Yamileth Santiago, JACOB Social History Tobacco [...] on file Legal Sex Female 8:30 AM PREFORMER IMPREGNATED FABRICS Gender Identity Female 10/06/2021 4:28 PM PREFORMER IMPREGNATED FABRICS Sexual Orientation Choose not to disclose 2020 4:28 PM PREFORMER IMPREGNATED FABRICS documented as of this encounter Miscellaneous Notes * Telephone Encounter - Yamileth Santiago CLT - 08/02/2023 8:42 AM CDT LMOM TO SCHEDULE APPT documented in this encounter Plan of Treatment Not on file documented as of this encounter Visit Diagnoses Not on filedocumented in this encounter Care Teams Storm Sash Maker Relationship Specialty Start Date End Date Gideon Campbell MD 2 [facility] [address] [address] PCP - General Family Medicine 07/19/23 documented as of this encounter
--- OUTSIDE RECORDS SUMMARY | 2024-10-22 14:49 | XMS_ITS | Encounter Summary ---
Author Organization [facility] Healthcare Address [address] [place] [address] Care Team Providers Care Visualization Developer Name Role Phone Gideon Campbell MD Primary Care Provider [phone] Reason for Visit * Diagnostic Lab (Routine) - Canceled Specialty Diagnoses / Procedures Referred By Lyndsey t Referred To Contact Lab Diagnoses 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, unspecified iron deficiency anemia type PAD (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) (HCC) Procedures ESR - Miscellaneous Test ESR - Miscellaneous Test Luis F Lofton MD [address] [place] [id number] Phone: tel: fax: Referral ID Status Reason Start Date Expiration Date V isits Requested Visits Authorized [id number] Canceled 10/28/2023 11/26/2024 1 1 Encounter Details Date Type Department Care Team (Late st Contact Info) Description 12/13/2023 9:45 AM BLEACH RANGE OPERATOR Lab [address] [place] [phone] 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, unspecified iron deficiency anemia [...] on file Legal Sex Female 8:30 AM BLEACH RANGE OPERATOR Gender Identity Female 10/06/2021 4:28 PM BLEACH RANGE OPERATOR Sexual Orientation Choose not to disclose 2020 4:28 PM BLEACH RANGE OPERATOR documented as of this encounter Plan of Treatment Not on file documented as of this encounter Procedures Procedure Name Priority Date/Time Associated Diagnosis Comments ERYTHROCYTE SEDIMENTATION RATE Routine 12/13/2023 11:30 AM BLEACH RANGE OPERATOR PROTIME-INR Routine 12/13/2023 11:30 AM BLEACH RANGE OPERATOR half-way (current) use of anticoagulants DIFFERENTIAL AUTO Routine 12/13/2023 10: 15 AM BLEACH RANGE OPERATOR 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, unspecified iron deficiency anemia type IRON PROFILE W/ IBC Routine 12/13/2023 1 0:15 AM BLEACH RANGE OPERATOR 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, unspecified iron deficiency anemia type CBC WITH AUTO DIFFERENTIAL Routine 12/13/2023 10:15 AM BLEACH RANGE OPERATOR 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, unspecified iron deficiency anemia type ERYTHROCYTE SEDIMENTATION RATE Routine 12/13/2023 10:15 AM BLEACH RANGE OPERATOR 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, unspecified iron deficiency anemia type RETICULOCYTES Routine 12/13/2023 10:15 AM BLEACH RANGE OPERATOR 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, unspecified iron deficiency anemia type FERRITIN Routine 12/13/2023 10:15 AM BLEACH RANGE OPERATOR 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, unspecified iron deficiency anemia type documented in this encounter Results * (ABNORMAL) Erythrocyte sedimentation rate (12/13/2023 11:30 AM BLEACH RANGE OPERATOR) Erythrocyte sedimentation rate 99(H) 1 - 30 mm/hr [facility] ([place]) Comment:Testing performed by : [place], [address] Blood 12/13/2023 11:3 0 AM BLEACH RANGE OPERATOR 12/13/2023 12:11 PM BLEACH RANGE OPERATOR us Luis F Lofton MD LAB BLOOD ORDERABLES Final Re sult [facility] ([place]) [address] [place] [address] [place] [address] * (ABNORMAL) Protime-INR (12/13/2023 11:30 AM BLEACH RANGE OPERATOR) Pathologist [facility] PT 14.2(H) 10.3 - 13.7 sec [facility] ([place]) Comment:Testing performed by : [facility], [place], [address] INR 1.25(H) 0.90 - 1.20 [facility] ([place]) Comment: Interpretive data Oral anticoagulant therapeutic ranges: Venous thromboembolism prophylaxis or treatment: 2.0-3.0 CARDIOLOGY Standard range: 2.0-3.0 High-intensity range: 2.5-3.5 Refer to indication-specific guidelines for appropriate target ranges for prosthetic heart valve replacement. Current interpretive data was last revised on 2019. Testing performed by: [facility], [place], [address] Blood 12/13/2023 11:3 0 AM BLEACH RANGE OPERATOR 12/13/2023 12:04 PM BLEACH RANGE OPERATOR us Mia Barger NP LAB BLOOD ORDERABLES Final Result [facility] ([place]) [facility] [place] [address] * (ABNORMAL) Differential, auto (12/13/2023 10:15 AM BLEACH RANGE OPERATOR) Pathologist [facility] Neutrophil abs 5.0 1.5 - 6.5 K/cumm [facility] ([place]) Comment:Testing performed by : [facility] [address], Medical [address], [place] [address] Imm gran abs 0.0 0.0 - 0.1 K/cumm [facility] ([place]) Comment:Testing performed by : [facility] [address], Medical [address], [place] [address] Lymphocyte abs 0.7(L) 0.8 - 3.3 K/cumm [facility] ([place]) Comment:Testing performed by : [facility] [address], Medical [address], [place] [address] Monocyte abs 0.4 0.2 - 0.8 K/cumm [facility] ([place]) Comment:Testing performed by : [facility] [address], Medical Office [facility] [address], [place] [address] Eosinophil abs 0.0 0.0 - 0.5 K/cumm [facility] ([place]) Comment:Testing performed by : [facility] [address], Medical Office [facility] [address], [place] [address] Basophil abs 0.0 0.0 - 0.1 K/cumm [facility] ([place]) Comment:Testing performed by : [facility] [address], Medical Office [facility] [address], [place] [address] Neutrophil pct 81.6 % [facility] ([place]) Comment: Interpretive Data Percent cell count reference ranges are not reported, since discordance with absolute values may lead to misinterpretation of CBC data. Current Interpretive Data was last revised on 2022. Testing performed by: [facility] [address], Medical Office [facility] [address], [place] [address] Imm gran pct 0.2 % [facility] ([place]) Comment: Interpretive Data Percent cell count reference ranges are not reported, since discordance with absolute values may lead to misinterpretation of CBC data. Current Interpretive Data was last revised on 2022. Testing performed by: [facility] [address], Medical Office [address], [place] [address] Lymphocyte pct 10.9 % [facility] ([place]) Comment: Interpretive Data Percent cell count reference ranges are not reported, since discordance with absolute values may lead to misinterpretation of CBC data. Current Interpretive Data was last revised on 2022. Testing performed by: [facility] [address], Medical Office [facility] [address], [place] [address] Monocyte pct 6.5 % [facility] ([place]) Comment: Interpretive Data Percent cell count reference ranges are not reported, since discordance with absolute values may lead to misinterpretation of CBC data. Current Interpretive Data was last revised on 2022. Testing performed by: [facility] [address], Medical Office [facility] [address], [place] [address] Eosinophil pct 0.6 % [facility] ([place]) Comment: Interpretive Data Percent cell count reference ranges are not reported, since discordance with absolute values may lead to misinterpretation of CBC data. Current Interpretive Data was last revised on 2022. Testing performed by: [facility] [address], Medical Office [facility] [address], [place] [address] Basophil pct 0.2 % [facility] ([place]) Comment: Interpretive Data Percent cell count reference ranges are not reported, since discordance with absolute values may lead to misinterpretation of CBC data. Current Interpretive Data was last revised on 2022. Testing performed by: [facility] [address], Medical Office [facility] [address], [place] [address] Blood 12/13/2023 10:1 5 AM BLEACH RANGE OPERATOR 12/13/2023 10:20 AM BLEACH RANGE OPERATOR us Luis F Lofton MD LAB BLOOD ORDERABLES Final Re sult [facility] ([place]) [address] [facility] Department [place] [address] * (ABNORMAL) CBC with auto differential (12/13/2023 10:15 AM BLEACH RANGE OPERATOR) WBC 6.2 3.8 - 9.9 K/cumm [facility] ([place]) Comment:Testing performed by : [facility] [address], Medical Office [address], [place] [address] Hgb 7.5(L) 11.9 - 15.5 g/dL [facility] ([place]) Comment:Testing performed by : [facility] [address], Medical Office [address], [place] [address] Hct 26.7(L) 35.6 - 45.5 % [facility] ([place]) Comment:Testing performed by : [facility] [address], Medical Office [facility] [address], [place] [address] Plt 559(H) 150 - 400 K/cumm [facility] ([place]) Comment:Testing performed by : [facility] [address], Medical Office [facility] [address], [place] [address] MPV 8.1(L) 9.1 - 12.3 fL [facility] ([place]) Comment:Testing performed by : [facility] [address], Medical Office [facility] [address], [place] [address] RBC 3.98 3.90 - 5.20 M/cumm [facility] ([place]) Comment:Testing performed by : [facility] [address], Medical Office [facility] [address], [place] [address] MCV 67.1(L) 81.3 - 96.4 fL [facility] ([place]) Comment:Testing performed by : [facility] [address], Medical Office [facility] [address], [place] [address] MCH 18.8(L) 27.1 - 33.3 pg [facility] ([place]) Comment:Testing performed by : [facility] [address], Medical Office [address], [place] [address] MCHC 28.1(L) 32.3 - 35.7 g/dL [facility] ([place]) Comment:Testing performed by : [facility] [address], Medical Office [facility] [address], [place] [address] RDW CV 19.2(H) 11.1 - 14.9 % [facility] ([place]) Comment:Testing performed by : [facility] [address], Medical Office [facility] [address], [place] [address] RDW SD 47.1 35.7 - 48.1 fL [facility] ([place]) Comment:Testing performed by : [facility] [address], Medical Office [facility] [address], [place] [address] NRBC abs Not Measured 0.00 - 0.01 K/cumm [facility] ([place]) Comment:Testing performed by : [facility] [address], Medical Office [facility] [address], [place] [address] Blood 12/13/2023 10:1 5 AM BLEACH RANGE OPERATOR 12/13/2023 10:20 AM BLEACH RANGE OPERATOR Luis F Lofton MD LAB BLOOD ORDERABLES Final Re sult Performing Organization Address [facility]/ZIP Co de Phone Number [facility] ([place]) [address] [facility] Department [place] [address] * (ABNORMAL) Reticulocyte Count (12/13/2023 10:15 AM BLEACH RANGE OPERATOR) Retics, absolute 0.038 0.020 - 0.087 M/cumm [facility] ([place]) Comment:Testing performed by : [place], [address] Retics 1.0 0.4 - 2.9 % [facility] ([place]) Comment:Testing performed by : [place], [address] Reticulocyte Hgb 17.7(L) 30.5 - 38.0 pg [facility] ([place]) Comment:Testing performed by : [facility], [place], [address] Blood 12/13/2023 10:1 5 AM BLEACH RANGE OPERATOR 12/13/2023 10:32 AM BLEACH RANGE OPERATOR Luis F Lofton MD LAB BLOOD ORDERABLES Final Re sult Performing Organization Address City/[facility]/ZIP Co de Phone Number [facility] ([place]) [address] [facility] Department [place] [address] * (ABNORMAL) Ferritin (12/13/2023 10:15 AM BLEACH RANGE OPERATOR) Ferritin 216(H) 15 - 150 ng/mL [facility] ([place]) Comment:Testing performed by : [place], [address] Blood 12/13/2023 10:1 5 AM BLEACH RANGE OPERATOR 12/13/2023 10:32 AM BLEACH RANGE OPERATOR Lusi F Lofton MD LAB BLOOD ORDERABLES Final Re sult [facility] ([place]) [address] [place] [address] Department [place] [address] * (ABNORMAL) Iron profile w/ IBC (12/13/2023 10:15 AM BLEACH RANGE OPERATOR) Iron 14(L) 35 - 145 mcg/dL [facility] ([place]) Comment:Testing performed by : [place], [address] TIBC 172(L) 250 - 400 mcg/dL [facility] ([place]) Comment:Testing performed by : [place], [address] Transferrin saturation 8(L) 20 - 50 % [facility] ([place]) Comment:Testing performed by : [place], [address] Blood 12/13/2023 10:1 5 AM BLEACH RANGE OPERATOR 12/13/2023 10:32 AM BLEACH RANGE OPERATOR Luis F Lofton MD LAB BLOOD ORDERABLES Final Re sult [facility] ([place]) [address] [facility] [place] [address] * (ABNORMAL) Erythrocyte sedimentation rate (12/13/2023 10:15 AM BLEACH RANGE OPERATOR) Erythrocyte sedimentation rate 93(H) 1 - 30 mm/hr [facility] ([place]) Comment:Testing performed by : [place], [address] Blood 12/13/2023 10:1 5 AM BLEACH RANGE OPERATOR 12/13/2023 10:20 AM BLEACH RANGE OPERATOR us Luis F Lofton MD LAB BLOOD ORDERABLES Final Re sult [facility] ([place]) [address] [facility] [place] [address] documented in this encounter Visit Diagnoses Diagnosis 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, unspecified iron deficiency anemia type- Primary PAD (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) (HCC) Unspecified peripheral vascular disease half-way (current) use of anticoagulants Long-term (current) use of anticoagulants documented in this encounter Orders Appointment Requests Count Last Ordered Date Fi rst Ordered Date ONCBCN LAB APPOINTMENT 1 12/13/2023 documented in this encounter Care Teams Visualization Developer Relationship Specialty Start Date End Date Gideon Campbell MD [address] [facility] [address] [place] [address] PCP - General Family Medicine 07/19/23 documented as of this encounter
--- OUTSIDE RECORDS SUMMARY | 2024-10-22 14:49 | XMS_ITS | Encounter Summary ---
Author Organization [facility] Medical [facility] Address [address] [facility] [place] [address] Care Team Providers Care General Internist Name Role Phone Denis Platt MD Primary Care Provide r Encounter Details Date Type Department Care Team (Late st Contact Info) Description 06/18/2023 Telephone [facility] Medical [facility] Orthopedics and Sports Medicine [address] [facility] [address] [place] [address] Herber Knott MD [address] [place] [address] [address] [place] [address] Social History Tobacco Use Types Packs/Day Years Used Date Smoking Tobacco: Former Cigarettes Q uit: 09/28/1978 Smokeless Tobacco: Never Alcohol Use Standard Drinks/Week Comments Yes 0 (1 standard drink = 0.6 oz pur e alcohol) Comments Unknown Sex and Gender Information Value Date Recorded Sex Assigned at Not on file Legal Sex Female 8:30 AM QA DEVELOPER Gender Identity Female 10/06/2021 4:28 PM QA DEVELOPER Sexual Orientation Choose not to disclose 2020 4:28 PM QA DEVELOPER documented as of this encounter Miscellaneous [...] [facility] [place] [facility] see if they are acceptingnew patients. [...] was instructed about PCPs in [facility]. Pt also informed she could try [facility] or calling her insurance for recommendations. * [...] filedocumented in this encounter Care Teams General Internist Relationship Specialty Start Date End Date Denis Platt MD [address] [place] [address] PCP - General Family Medicine 01/14/22 07/18/23 documented as of this encounter
--- OUTSIDE RECORDS SUMMARY | 2024-10-22 14:49 | XMS_ITS | Encounter Summary ---
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 Gender Identity Female 10/06/2021 4:28 PM TRUCK LOADER OVERHEAD CRANE Sexual Orientation Choose not to disclose 2020 4:28 PM TRUCK LOADER OVERHEAD CRANE documented as of this encounter Nursing Notes [...] for appointments and labs placed in chart./res K LOADER OVERHEAD CRANE documented in this encounter Plan of Treatment Not on file documented as of this encounter Visit Diagnoses Not on filedocumented in this encounter Care Teams Medical Laboratory Specialist Relationship Specialty Start Date End Date Gideon Campbell MD [address] [place] [address] [address] PCP - General Family Medicine 07/19/23 documented as of this encounter
--- OUTSIDE RECORDS SUMMARY | 2024-10-22 14:49 | XMS_ITS | Encounter Summary ---
Author Organization [facility] Healthcare Address [address] [place] [address] Care Team Providers Care [employer] Guidance Counselor Name Role Phone Denis Platt MD Primary Care Provide r Encounter Details Date Type Department Care Team (Latest Contact Info) Description 06/17/2023 10:54 AM CDT - 06/17/2023 11:59 PM CDT Hospital Encounter [address] [phone] Pre-operative exam Discharge Disposition: Discharge to home [...] on file Legal Sex Female 8:30 AM ZINC PLATE CUTTER Gender Identity Female 10/06/2021 4:28 PM ZINC PLATE CUTTER Sexual Orientation Choose not to disclose 2020 4:28 PM ZINC PLATE CUTTER documented as of this encounter Medications at [...] [facility] ([place]) Comment:Testing performed by : [facility], [address] [place]., [address] Organism (CLINICALLY INSIGNIFICANT GROWTH [facility] ([place]) Urine 06/17/2023 10:3 0 AM CDT 06/17/2023 3:00 PM CDT Narrative [facility] ([place]) - 06/18/2023 5:27 PM CDT Urine culture reflexed based upon urinalysis results. Testing performed by [facility] Microbiology Laboratory ([phone]) us Herber Knott MD LAB MICROBIOLOGY - [facility] AL ORDERABLES Final Result [facility]) 1 [facility] Department [place] [address] * (ABNORMAL) Urinalysis, microscopic only (06/17/2023 10:30 [...] Reflex to urine culture will be performed. [facility] Urine 06/17/2023 10:3 0 AM CDT 06/17/2023 11:12 AM CDT Herber Knott MD LAB URINE ORDERABLES [facility] al Result [facility] ([place]) 1 [facility] Department [place] [address] * (ABNORMAL) Urinalysis reflex to microscopic and culture Urine (06/17/2023 10:30 AM CDT) Color, ur Yellow Yellow [facility]) Clarity, ur Turbid(A) Clear [facility] A ([place]) Specific gravity, ur 1.009 1.003 - 1.030 [facility] ([place]) pH, urine 6.5 [facility] ([place]) Protein, ur ql Negative Negative [...] 06/17/2023 11:12 AM CDT Narrative [facility] ([place]) - 06/17/2023 11:16 AM CDT ?? Urine pH is affected by diet, medications, systemic acid-base disturbances, and renal tubular function. ??pH may affect urinary stone formation. ??For example, urine pH below 6.0 may help reduce the tendency for calcium phosphate stones and pH greater than 6.0 may reduce the tendency for uric acid stone formation. Source: [employer]. Last revised 10-21-2017 us Herber nKott MD LAB MICROBIOLOGY - [facility] AL ORDERABLES Final Result [facility] ([place]) 1 [facility] Department [place] [address] documented in this encounter Visit Diagnoses Diagnosis Pre-operative exam Unspecified pre-operative examination documented in this encounter Care Teams [employer] Guidance Counselor Relationship Specialty Start Date End Date Denis Platt MD [address] [place] [address] PCP - General Family Medicine 01/14/22 07/18/23 documented as of this encounter
--- OUTSIDE RECORDS SUMMARY | 2024-10-22 14:49 | XMS_ITS | Encounter Summary ---
Author Organization [facility] Healthcare Address [address] [place] [address] Care Team Providers Care Craft Superintendent Name Role Phone Gideon Campbell MD Primary Care Provider [phone] Reason for Visit * Reason Comments Anemia Follow-up Pt states she is hav ing a lot of pain in her joints. B shoulders and knees hurt. Encounter Details Date Type Department Care Team (Late st Contact Info) Description 07/29/2023 12:30 PM CDT Office Visit [facility] Primary Care at [address] [place] [phone] Gideon Campbell MD [address] [place] [phone] Medicare annual wellness visit, subsequent (Primary [...] Legal Sex Female 8:30 AM DIRECTOR OF INSTRUCTIONAL TECHNOLOGY Gender Identity Female 10/06/2021 4:28 PM DIRECTOR OF INSTRUCTIONAL TECHNOLOGY Sexual Orientation Choose not to disclose 2020 4:28 PM DIRECTOR OF INSTRUCTIONAL TECHNOLOGY documented as of this encounter Last Filed [...] Problem List Diagnosis Atrial fibrillation (CMS/HCC) [I48.91] 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 goal <100 PAD (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) ([facility]) Essential hypertension Ventricular ectopy Left carotid [...] (Family Medicine) Primary Pharmacy/DME suppliers: [facility] [place], [place] - [address] [facility] [address] [employer] (MAIL SERVICE) [facility] [place], [place] - [address] [facility] [facility] [address] [facility] [address] Medicare Health Risk Assessment Basic Information In general, would you say your health is: Excellent Do you have an advance directive, such as a living will or durable power of staff attorney?: (!) No Would you like information regarding Advanced Directive (Living Will) and/or Durable Power of Surveillance Dual Rate Officer?: No Do you have to strain or [...] patientor family, or review of medical records. [facility] Mental Status Mini-Cog Test: The Mini-Cog [...] weight documented in this encounter Care Teams Craft Superintendent Relationship Specialty Start Date End Date Gideon Campbell MD 2 [facility] [address] [address] PCP - General Family Medicine 07/19/23 documented as of this encounter
--- OUTSIDE RECORDS SUMMARY | 2024-10-22 14:49 | XMS_ITS | Encounter Summary ---
Author Organization [facility] Address [address] [place] [address] Phone Care Team Providers Care Windmill Technician Name Role Phone Gideon Campbell MD Primary Care Provider [phone] Reason for Visit * Reason Comments Consult * Consultation (Routine) - Closed Specialty Diagnoses / Procedures Referred By Contac t Referred To Contact Oncology Diagnoses 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, unspecified iron deficiency anemia type Gideon Campbell MD [address] [facility] [address] [place] [address] Phone: tel: fax: [facility] Oncology [address] [place] [address] [address] Phone: tel: fax: Referral ID Status Reason Start Date Expiration Date V isits Requested Visits Authorized [id number] Closed Specialty Services Required 09/15/2023 10/10/2024 99 [phone] Encounter Details Date Type Department Care Team (Late st Contact Info) Description 10/18/2023 11:00 AM PERSONAL HEALTH COACH Office Visit [facility] Oncology [address] [place] [address] [address] [facility] [address] [place] [address] Luis F Lofton MD [address] [place] [address] [address] [place] [address] [facility] (current) use of anticoagulants (Primary Dx); Iron [...] file Legal Sex Female 8:30 AM PERSONAL HEALTH COACH Gender Identity Female 10/06/2021 4:28 PM PERSONAL HEALTH COACH Sexual Orientation Choose not to disclose 2020 4:28 PM PERSONAL HEALTH COACH documented as of this encounter Last Filed Vital Signs Vital Sign Reading Time Taken Comments Blood Pressure 168/68 10/18/2023 11:16 AM PERSONAL HEALTH COACH Pulse 75 10/18/2023 11:16 AM PERSONAL HEALTH COACH Temperature 36.3 ??C (97.3 ??F) 10/18/2023 11:[address] Respiratory Rate 20 10/18/2023 11:16 AM PERSONAL HEALTH COACH Oxygen Saturation 100% 10/18/2023 11:16 AM PERSONAL HEALTH COACH Inhaled Oxygen Concentration - - Weight 57 kg (125 lb 9.6 oz) 10/18/2023 11:16 AM PERSONAL HEALTH COACH Height 161.3 cm (5' 3.5 ) 10/18/2023 11:16 AM CS T Body Mass Index 21.9 10/18/2023 11:16 AM PERSONAL HEALTH COACH documented in this encounter Progress Notes * [...] 1 TABLET BY MOUTH DAILY 08/13/23 Yes Andrdae Brown MD warfarin (COUMADIN) 4 mg tablet [...] goal <100 04/07/2017 PAD (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) ([facility]) 04/07/2017 Essential hypertension 04/07/2017 Atrial fibrillation ([facility]) [I48.91] 03/29/2017 [facility] current use of anticoagulant therapy 03/29/2017 Assessment: This patient appears to have iron-deficiency anemia. She also has thrombocytosis which can occur tsar number of situations but in this setting [...] iron absorbed Luis F Lofton MD 10/18/2023 ONAL HEALTH COACH documented in this encounter Plan of Treatment Scheduled Orders Name Type Priority Associated Diagnoses Orde r Schedule CBC with auto differential Lab Routine 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, unspecified iron deficiency anemia type [facility] (current) use of anticoagulants Expected: 10/25/2023, Expires: 10/18/2024 documented as of this encounter Results * (ABNORMAL) Comprehensive metabolic panel (01/31/2024 9:20 AM CDT) Sodium 138 135 - 145 mmol/L Comment:Testing performed by : [place], [address] Potassium, pl 4.1 3.3 - 4.9 mmol/L [facility] ([place]) Comment:Testing performed by : [place], [address] Chloride 101 97 - 110 mmol/L [facility] ([place]) Comment:Testing performed by : [place], [address] CO2 27 22 - 32 mmol/L [facility] ([place]) Comment:Testing performed by : [facility], [place], [address] Anion gap 10 2 - 15 mmol/L [facility] ([place]) Comment:Testing performed by : [facility], [facility], [place], [address] BUN 9 6 - 25 mg/dL [facility] ([place]) Comment:Testing performed by : [facility], [place], [address] Creatinine 0.72 0.60 - 1.10 mg/dL [facility] ([place]) Comment:Testing performed by : [facility], [place], [address] Glucose 108 70 - 199 mg/dL [facility] ([place]) Comment: Interpretive Data Fasting glucose >/= 126 [...] was last revised 2022. Testing performed by: [facility], [place], [address] Calcium 8.9 8.5 - 10.3 mg/dL [facility] ([place]) Comment:Testing performed by : [facility], [place], [address] Bilirubin, total 0.4 0.1 - 1.2 mg/dL [facility] ([place]) Comment:Testing performed by : [facility], [place], [address] Protein, pl 5.9(L) 6.5 - 8.5 g/dL [facility] ([place]) Comment:Testing performed by : [facility], [place], [address] Albumin 2.9(L) 3.5 - 5.0 g/dL [facility] ([place]) Comment:Testing performed by : [place], [address] Alk phos 127 40 - 130 Units/L [facility] ([place]) Comment:Testing performed by : [facility], [facility], [place], [address] ALT 5(L) 7 - 45 Units/L [facility] ([place]) Comment:Testing performed by : [facility], [facility], [place], [address] AST 7(L) 10 - 45 Units/L [facility] ([place]) Comment:Testing performed by : [facility], [facility], [place], [address] Blood 01/31/2024 9:20 AM CDT 01/31/2024 9:38 AM CDT Narrative [facility] ([place]) - 01/31/2024 10:05 AM CDT [facility] us Luis F Lofton MD LAB BLOOD ORDERABLES Final Re sult Performing Organization Address City/[facility]/ZIP Co de Phone Number [facility] ([place]) [address] [place] [address] Department [place] [address] * (ABNORMAL) aPTT (10/18/2023 1:00 PM PERSONAL HEALTH COACH) aPTT 40(H) 28 - 38 sec [facility] ([place]) Comment: Interpretive Data Heparin therapeutic range: 66.0 - 100.0 seconds. Range based on correlation with therapeutic heparin activity range of 0.3 - 0.7 Units/mL. Current interpretive data was last revised on 2023. Testing performed by: [place], [address] Blood 10/18/2023 1:00 PM PERSONAL HEALTH COACH 10/18/2023 2:08 PM PERSONAL HEALTH COACH us Luis F Lofton MD LAB BLOOD ORDERABLES Final Re sult [facility] ([place]) 1 [facility] Department [place] [address] * Protime-INR (10/18/2023 1:00 PM PERSONAL HEALTH COACH) PT 13.7 10.3 - 13.7 sec [facility] ([place]) Comment:Testing performed by : [place], [address] INR 1.20 0.90 - 1.20 [facility] ([place]) Comment: Interpretive data Oral anticoagulant therapeutic ranges: Venous thromboembolism prophylaxis or treatment: 2.0-3.0 CARDIOLOGY Standard range: 2.0-3.0 High-intensity range: 2.5-3.5 Refer to indication-specific guidelines for appropriate target ranges for prosthetic heart valve replacement. Current interpretive data was last revised on 2019. Testing performed by: [place], [address] Blood 10/18/2023 1:00 PM PERSONAL HEALTH COACH 10/18/2023 2:08 PM PERSONAL HEALTH COACH Luis F Lofton MD LAB BLOOD ORDERABLES Final Re sult Performing Organization Address City/[facility]/ZIP Co de Phone Number [facility] ([place]) [address] [place] [address] [place] [address] * (ABNORMAL) Fibrinogen (10/18/2023 1:00 PM PERSONAL HEALTH COACH) Fibrinogen 533(H) 170 - 400 mg/dL [facility] ([place]) Comment:Testing performed by : [facility], [place], [address] Blood 10/18/2023 1:00 PM PERSONAL HEALTH COACH 10/18/2023 2:08 PM PERSONAL HEALTH COACH Luis F Lofton MD LAB BLOOD ORDERABLES Final Re sult [facility] ([place]) 1 [facility] [place] [address] documented in this encounter Visit Diagnoses Diagnosis [facility] (current) use of anticoagulants- Primary Long-term (current) use of anticoagulants 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, unspecified iron deficiency anemia type 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, unspecified iron deficiency anemia type [facility] (current) use of anticoagulants Long-term (current) [...] 10/18/2023 documented in this encounter Care Teams Windmill Technician Relationship Specialty Start Date End Date Gideon Campbell MD [address] [facility] [address] [place] [address] PCP - General Family Medicine 07/19/23 documented as of this encounter
--- OUTSIDE RECORDS SUMMARY | 2024-10-22 14:49 | XMS_ITS | Encounter Summary ---
Author Organization [facility] Address [address] [place] [address] Phone Care Team Providers Care Press Cleaner Name Role Phone Gideon Campbell MD Primary Care Provider [phone] Encounter Details Date Type Department Care Team (Late st Contact Info) Description 10/15/2023 Telephone [facility] Oncology [address] [place] [phone] Deborah Armstrong, JACOB Social History Tobacco [...] on file Legal Sex Female 8:30 AM MODEL MAKER PLASTER Gender Identity Female 10/06/2021 4:28 PM MODEL MAKER PLASTER Sexual Orientation Choose not to disclose 2020 4:28 PM MODEL MAKER PLASTER documented as of this encounter Miscellaneous Notes * Telephone Encounter - Deborah Armstrong CLT - 10/15/2023 1:32 PM MODEL MAKER PLASTER appt confirmation L MAKER PLASTER documented in this encounter Plan of Treatment Not on file documented as of this encounter Visit Diagnoses Not on filedocumented in this encounter Care Teams Press Cleaner Relationship Specialty Start Date End Date Gideon Campbell MD [address] [facility] [address] [place] [address] PCP - General Family Medicine 07/19/23 documented as of this encounter
--- OUTSIDE RECORDS SUMMARY | 2024-10-22 14:49 | XMS_ITS | Encounter Summary ---
Author Organization [facility] Address [address] [place] [address] Phone Care Team Providers Care Neurology Hospitalist Name Role Phone Gideon Campbell MD Primary Care Provider [phone] Encounter Details Date Type Department Care Team (Late st Contact Info) Description 10/28/2023 Telephone [facility] Oncology [address] [place] [phone] Yamileth Santiago, JACOB Social History Tobacco [...] file Legal Sex Female 8:30 AM ADMISSIONS RN Gender Identity Female 10/06/2021 4:28 PM ADMISSIONS RN Sexual Orientation Choose not to disclose 2020 4:28 PM ADMISSIONS RN documented as of this encounter Miscellaneous Notes * Telephone Encounter - Carmela Puri RN - 10/29/2023 8:12 AM ADMISSIONS RN Patient's daughter was called and reviewed lab test results with her. Patient to start on Slow Fe otc tablets 1 daily and FU labs and DV in 6 weeks./res SSIONS RN documented in this encounter Plan of Treatment Not on file documented as of this encounter Visit Diagnoses Not on filedocumented in this encounter Care Teams Neurology Hospitalist Relationship Specialty Start Date End Date Gideon Campbell MD 2 [facility] [address] [place] [address] PCP - General Family Medicine 07/19/23 documented as of this encounter
--- OUTSIDE RECORDS SUMMARY | 2024-10-22 14:49 | XMS_ITS | Encounter Summary ---
Author Organization 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 Procedures pROTIME MIXING TEST - Miscellaneous Test Luis F Lofton MD [address] [place] [address] Phone: tel: fax: Referral ID Status Reason Start Date Expiration Date V isits Requested Visits Authorized [id number] Canceled 10/18/2023 11/16/2024 1 1 Encounter Details Date Type Department Care Team (Late st Contact Info) Description 10/18/2023 10:30 AM RESORT HOST Lab [facility] 4 [facility] [address] [place] [phone] 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, unspecified iron deficiency anemia type (Primary Dx); 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 Social History [...] on file Legal Sex Female 8:30 AM RESORT HOST Gender Identity Female 10/06/2021 4:28 PM RESORT HOST Sexual Orientation Choose not to disclose 2020 4:28 PM RESORT HOST documented as of this encounter Plan of Treatment Not on file documented as of this encounter Procedures Procedure Name Priority Date/Time Associated Diagnosis Comments PT MIXING STUDY Routine 10/18/2023 1:00 PM RESORT HOST APTT Routine 10/18/2023 1:00 PM RESORT HOST 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, 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 iron deficiency anemia type 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 PROTIME-INR Routine 10/18/2023 1:00 PM RESORT HOST 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, unspecified iron deficiency anemia type alf (current) use of anticoagulants FIBRINOGEN Routine 10/18/2023 1:00 PM RESORT HOST 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18 0.90 - 1.20 [facility] ([place]) Comment: Interpretive data Oral anticoagulant therapeutic ranges: Venous thromboembolism prophylaxis or treatment: 2.0-3.0 CARDIOLOGY Standard range: 2.0-3.0 High-intensity range: 2.5-3.5 Refer to indication-specific guidelines for appropriate target ranges for prosthetic heart valve replacement. Current interpretive data was last revised on 2019. Testing performed by: [facility], [address] [place]., [address] PT, 50/50 mix See Comment 10.3 - [...] revised on 2019. Testing performed by: [facility], [address] [place]., [address] INR, 50/50 mix See Comment 0.90 - 1.20 [facility] ([place]) Comment: Credited,Test Not Indicated. Testing performed by: [facility], [address] [place]., [address] Blood 10/18/2023 1:00 PM RESORT HOST 10/18/2023 6:00 PM RESORT HOST Luis F Lofton MD LAB BLOOD ORDERABLES Final Re sult Performing Organization Address City/[facility] Co de Phone Number [facility] ([place]) 1 [facility] Department [place] [address] * (ABNORMAL) Fibrinogen (10/18/2023 1:00 PM RESORT HOST) Fibrinogen 533(H) 170 - 400 mg/dL [facility] ([place]) Comment:Testing performed by : [place], [address] Blood 10/18/2023 1:00 PM RESORT HOST 10/18/2023 2:08 PM RESORT HOST Luis F Lofton MD LAB BLOOD ORDERABLES Final Re sult Performing Organization Address [facility] Phone Number [facility] ([place]) [address] [place] [address] Department [place] [address] * Protime-INR (10/18/2023 1:00 PM RESORT HOST) PT 13.7 10.3 - 13.7 sec [facility] ([place]) Comment:Testing performed by : [place], [address] INR 1.20 0.90 - 1.20 [facility] ([place]) Comment: Interpretive data Oral anticoagulant therapeutic ranges: Venous thromboembolism prophylaxis or treatment: 2.0-3.0 CARDIOLOGY Standard range: 2.0-3.0 High-intensity range: 2.5-3.5 Refer to indication-specific guidelines for appropriate target ranges for prosthetic heart valve replacement. Current interpretive data was last revised on 2019. Testing performed by: [place], [address] Blood 10/18/2023 1:00 PM RESORT HOST 10/18/2023 2:[address] [facility] Luis F Lofton MD LAB BLOOD ORDERABLES Final Re sult Performing Organization Address City/[facility]/ZIP Co de Phone Number [facility] ([place]) 1 [facility] Department [place] [address] * (ABNORMAL) aPTT (10/18/2023 1:00 PM RESORT HOST) aPTT 40(H) 28 - 38 sec [facility] ([place]) Comment: Interpretive Data Heparin therapeutic range: 66.0 - 100.0 seconds. Range based on correlation with therapeutic heparin activity range of 0.3 - 0.7 Units/mL. Current interpretive data was last revised on 2023. Testing performed by: [facility], One [facility], [place], [address] Blood 10/18/2023 1:00 PM RESORT HOST 10/18/2023 2:08 PM RESORT HOST Luis F Lofton MD LAB BLOOD ORDERABLES Final Re sult Performing Organization Address [facility] Co de Phone Number [facility] ([place]) 1 [facility] Department [place] [address] * (ABNORMAL) Differential, auto (10/18/2023 10:35 AM RESORT HOST) Neutrophil abs 6.0 1.5 - 6.5 K/cumm [facility] ([place]) Comment:Testing performed by : [facility] [address], Medical Office [facility], [place] [address] Imm gran abs 0.0 0.0 - 0.1 K/cumm [facility] ([place]) Comment:Testing performed by : [facility] [address], Medical Office [facility] [address], [place] [address] Lymphocyte abs 0.5(L) 0.8 - 3.3 K/cumm [facility] ([place]) Comment:Testing performed by : [facility] [address], Medical Office [facility] [address], [place] [address] Monocyte abs 0.3 0.2 - 0.8 K/cumm [facility] ([place]) Comment:Testing performed by : [facility] [address], Medical Office [facility], [place] [address] Eosinophil abs 0.1 0.0 - 0.5 K/cumm [facility] ([place]) Comment:Testing performed by : [facility] [address], Medical Office [facility], [place] [address] Basophil abs 0.0 0.0 - 0.1 K/cumm [facility] ([place]) Comment:Testing performed by : [facility] [address], Medical Office [facility] [address], [place] [address] Neutrophil pct 87.1 % [facility] ([place]) Comment: Interpretive Data Percent cell count reference ranges are not reported, since discordance with absolute values may lead to misinterpretation of CBC data. Current Interpretive Data was last revised on 2022. Testing performed by: [facility] [address], Medical Office [facility] [address], [place] [address] Imm gran pct 0.1 % [facility] ([place]) Comment: Interpretive Data Percent cell count reference ranges are not reported, since discordance with absolute values may lead to misinterpretation of CBC data. Current Interpretive Data was last revised on 2022. Testing performed by: [facility] [address], Medical Office [facility] [address], [place] [address] Lymphocyte pct 7.4 % [facility] ([place]) Comment: Interpretive Data Percent cell count reference ranges are not reported, since discordance with absolute values may lead to misinterpretation of CBC data. Current Interpretive Data was last revised on 2022. Testing performed by: [facility] [address], Medical Office [facility] [address], [place] [address] Monocyte pct 3.9 % [facility] ([place]) Comment: Interpretive Data Percent cell count reference ranges are not reported, since discordance with absolute values may lead to misinterpretation of CBC data. Current Interpretive Data was last revised on 2022. Testing performed by: [facility] [address], Medical Office [facility] [address], [place] [address] Eosinophil pct 1.2 % [facility] ([place]) Comment: Interpretive Data Percent cell count reference ranges are not reported, since discordance with absolute values may lead to misinterpretation of CBC data. Current Interpretive Data was last revised on 2022. Testing performed by: [facility] [address], Medical Office [facility] [address], [place] [address] Basophil pct 0.3 % [facility] ([place]) Comment: Interpretive Data Percent cell count reference ranges are not reported, since discordance with absolute values may lead to misinterpretation of CBC data. Current Interpretive Data was last revised on 2022. Testing performed by: [facility] [address], Medical Office [facility] [address], [place] [address] Blood 10/18/2023 10:3 5 AM RESORT HOST 10/18/2023 10:36 AM RESORT HOST us Luis F Lofton MD LAB BLOOD ORDERABLES Final Re sult [facility] ([place]) 1 [facility] [place] [address] * (ABNORMAL) CBC with auto differential (10/18/2023 10:35 AM RESORT HOST) WBC 6.9 3.8 - 9.9 K/cumm [facility] ([place]) Comment:Testing performed by : [facility] [address], Medical Office [facility] [address], [place] [address] Hgb 7.3(L) 11.9 - 15.5 g/dL [facility] ([place]) Comment:Testing performed by : [facility] [address], Medical Office [facility] [address], [place] [address] Hct 26.3(L) 35.6 - 45.5 % [facility] ([place]) Comment:Testing performed by : [facility] [address], Medical Office [facility] [address], [place] [address] Plt 507(H) 150 - 400 K/cumm [facility] ([place]) Comment:Testing performed by : [facility] [address], Medical Office [facility] [address], [place] [address] MPV 8.5(L) 9.1 - 12.3 fL [facility] ([place]) Comment:Testing performed by : [facility] [address], Medical Office [facility] [address], [place] [address] RBC 3.97 3.90 - 5.20 M/cumm [facility] ([place]) Comment:Testing performed by : [facility] [address], Medical Office [facility] [address], [place] [address] MCV 66.2(L) 81.3 - 96.4 fL [facility] ([place]) Comment:Testing performed by : [facility] [address], Medical Office [facility] [address], [place] [address] MCH 18.4(L) 27.1 - 33.3 pg [facility] ([place]) Comment:Testing performed by : [facility] [address], Medical Office [facility] [address], [place] [address] MCHC 27.8(L) 32.3 - 35.7 g/dL [facility] ([place]) Comment:Testing performed by : [facility] [address], Medical Office [facility] [address], [place] [address] RDW CV 19.4(H) 11.1 - 14.9 % [facility] ([place]) Comment:Testing performed by : [facility] [address], Medical Office [facility] [address], [place] [address] RDW SD 46.5 35.7 - 48.1 fL [facility] ([place]) Comment:Testing performed by : [facility] [address], Medical Office [facility] [address], [place] [address] NRBC abs Not Measured 0.00 - 0.01 K/cumm [facility] ([place]) Comment:Testing performed by : [facility] [address], Medical Office [facility] [address], [place] [address] Blood 10/18/2023 10:3 5 AM RESORT HOST 10/18/2023 10:36 AM RESORT HOST us Luis F Lofton MD LAB BLOOD ORDERABLES Final Re sult [facility] ([place]) 1 [facility] Department [place] [address] documented in this encounter Visit Diagnoses Diagnosis 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, unspecified iron deficiency anemia type- Primary alf (current) use of anticoagulants Long-term (current) use of anticoagulants documented in this encounter Care Teams Mobile Sales Expert Relationship Specialty Start Date End Date Gideon Campbell MD 2 [facility] [address] [address] PCP - General Family Medicine 07/19/23 documented as of this encounter
--- OUTSIDE RECORDS SUMMARY | 2024-10-22 14:49 | XMS_ITS | Encounter Summary ---
Author Organization [facility] Healthcare Address [address] [place] [address] Care Team Providers Care Surgical Resident Name Role Phone Denis Platt MD Primary Care Provide r Encounter Details Date Type Department Care Team (Latest Contact Info) Description 06/16/2023 9:32 AM CDT - 06/16/2023 11:59 PM CDT Hospital Encounter [facility] Imaging Center [address] [place] [address] Pre-operative exam Discharge Disposition: Discharge to home [...] Legal Sex Female 8:30 AM CLINICAL NURSING DIRECTOR Gender Identity Female 10/06/2021 4:28 PM CLINICAL NURSING DIRECTOR Sexual Orientation Choose not to disclose 2020 4:28 PM CLINICAL NURSING DIRECTOR documented as of this encounter Medications [...] PM T: ??06/17/2023 5:08 PM Report ID: [id number] Reading Location: ??[id number] Procedure Note Kali Georges MD - 06/17/2023 [...] by Kali Georges M.D. JR: Report ID: [id number] Reading Location: [place] [address] Herber Knott MD IMG XR PROCEDURES Final Result documented in this encounter Visit Diagnoses Diagnosis Pre-operative exam Unspecified pre-operative examination documented in this encounter Care Teams Surgical Resident Relationship Specialty Start Date End Date Denis Platt MD [address] [place] [address] PCP - General Family Medicine 01/14/22 07/18/23 documented as of this encounter
--- OUTSIDE RECORDS SUMMARY | 2024-10-22 14:49 | XMS_ITS | Encounter Summary ---
Author Organization [facility] Address [address] [place] [address] Phone Care Team Providers Care Multicultural Internship Name Role Phone Gideon Campbell MD Primary Care Provider [phone] Reason for Visit * Reason Comments Follow-up nursing home use (curre nt) of anticoagulant * Diagnostic Lab (Routine) - Canceled Specialty Diagnoses / Procedures Referred By Contac t Referred To Contact Lab Diagnoses 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, unspecified iron deficiency anemia type PAD (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) ([facility]) Procedures ESR - Miscellaneous Test ESR - Miscellaneous Test Luis F Lofton MD [address] [place] [address] [place] [address] Phone: tel: fax: Referral ID Status Reason Start Date Expiration Date V isits Requested Visits Authorized [id number] Canceled 10/28/2023 11/26/2024 1 1 Encounter Details Date Type Department Care Team (Late st Contact Info) Description 12/13/2023 10:15 AM PLASTIC EXTRUSION OPERATOR Office Visit [facility] [address] [place] [address] [place] [id number] Luis F Lofton MD [address] [place] [address] [address] [place], [place] [id number] 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, unspecified iron deficiency anemia type; nursing home (current) use of anticoagulants; PAD (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) ([facility]) Social History Tobacco Use Types [...] on file Legal Sex Female 8:30 AM PLASTIC EXTRUSION OPERATOR Gender Identity Female 10/06/2021 4:28 PM PLASTIC EXTRUSION OPERATOR Sexual Orientation Choose not to disclose 2020 4:28 PM PLASTIC EXTRUSION OPERATOR documented as of this encounter Last Filed Vital Signs Vital Sign Reading Time Taken Comments Blood Pressure 144/76 12/13/2023 10:47 AM PLASTIC EXTRUSION OPERATOR Pulse 77 12/13/2023 10:47 AM PLASTIC EXTRUSION OPERATOR Temperature 36.3 ??C (97.3 ??F) 12/13/2023 10:[address] Respiratory Rate 20 12/13/2023 10:47 AM PLASTIC EXTRUSION OPERATOR Oxygen Saturation 99% 12/13/2023 10:47 AM PLASTIC EXTRUSION OPERATOR Inhaled Oxygen Concentration - - Weight 54.4 kg (120 lb) 12/13/2023 10:47 AM PLASTIC EXTRUSION OPERATOR Height 161.3 cm (5' 3.5 ) 12/13/2023 10:47 AM CS T Body Mass Index 20.92 12/13/2023 10:47 AM PLASTIC EXTRUSION OPERATOR documented in this encounter Ordered Prescriptions Prescription Sig Dispense Quantity Refills Last Filled Start Date End Date ferrous sulfate 325 mg (65 mg of elemental iron) tabletIndications: Iron Deficiency Anemia Take 1 tablet (65 mg of elemental iron total) by mouth daily with breakfast 90 tablet 2 12/13/2023 documented in this encounter Progress Notes * Mia Barger, SEMICONDUCTOR PROCESSOR - 12/13/2023 10:15 AM CST Images from [...] Recent labs, radiology and pathology reviewed in [facility] ASSESSMENT: CARLOS likely from GI with reactive [...] PENELOPE Arriaga Nurse Practitioner Medical Oncology [facility] TIC EXTRUSION OPERATOR documented in this encounter Miscellaneous Notes * [...] - 9.9 K/cumm Comment:Testing performed by : [facility] [address], Medical Office [facility] [address], [place] [address] Hgb 7.5(L) 11.9 - 15.5 g/dL [facility] ([place]) Comment:Testing performed by : [facility] [address], Medical Office [facility] [address], [place] [address] Hct 26.2(L) 35.6 - 45.5 % [facility] ([place]) Comment:Testing performed by : [facility] [address], Medical Office [facility] [address], [place] [address] Plt 468(H) 150 - 400 K/cumm [facility] ([place]) Comment:Testing performed by : [facility] [address], Medical Office [facility] [address], [place] [address] MPV 8.7(L) 9.1 - 12.3 fL [facility] ([place]) Comment:Testing performed by : [facility] [address], Medical Office [facility] [address], [place] [address] RBC 3.64(L) 3.90 - 5.20 M/cumm [facility] ([place]) Comment:Testing performed by : [facility] [address], Medical Office [facility] [address], [place] [address] MCV 72.0(L) 81.3 - 96.4 fL [facility] ([place]) Comment:Testing performed by : [facility] [address], Medical Office [facility] [address], [place] [address] MCH 20.6(L) 27.1 - 33.3 pg [facility] ([place]) Comment:Testing performed by : [facility] [address], Medical Office [address], [place] [address] MCHC 28.6(L) 32.3 - 35.7 g/dL [facility] ([place]) Comment:Testing performed by : [facility] [address], Medical Office [facility] [address], [place] [address] RDW CV 21.4(H) 11.1 - 14.9 % [facility] ([place]) Comment:Testing performed by : [facility] [address], Medical Office [facility] [address], [place] [address] RDW SD 56.4(H) 35.7 - 48.1 fL [facility] ([place]) Comment:Testing performed by : [facility] [address], Medical Office [facility] [address], [place] [address] NRBC abs Not Measured 0.00 - 0.01 K/cumm [facility] ([place]) Comment:Testing performed by : [facility] [address], Medical Office [facility] [address], [place] [address] Blood 01/31/2024 9:20 AM CDT 01/31/2024 9:41 AM CDT us Mia Barger SEMICONDUCTOR PROCESSOR LAB BLOOD ORDERABLES Final Result [facility] ([place]) 1 [facility] [place] [address] * (ABNORMAL) Protime-INR (12/13/2023 11:30 AM PLASTIC EXTRUSION OPERATOR) PT 14.2(H) 10.3 - 13.7 sec [facility] ([place]) Comment:Testing performed by : [facility], [place], [address] INR 1.25(H) 0.90 - 1.20 [facility] ([place]) Comment: Interpretive data Oral anticoagulant therapeutic ranges: Venous thromboembolism prophylaxis or treatment: 2.0-3.0 CARDIOLOGY Standard range: 2.0-3.0 High-intensity range: 2.5-3.5 Refer to indication-specific guidelines for appropriate target ranges for prosthetic heart valve replacement. Current interpretive data was last revised on 2019. 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
--- OUTSIDE RECORDS SUMMARY | 2024-10-22 14:49 | XMS_ITS | Encounter Summary ---
Author Organization [facility] Address [address] [place] [address] Phone Care Team Providers Care Bindery Manager Name Role Phone Gideon Campbell MD Primary Care Provider [phone] Reason for Referral * Consultation (Routine) - Closed Specialty Diagnoses / Procedures Referred By Contac t Referred To Contact Oncology Diagnoses 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, unspecified iron deficiency anemia type Gideon Campbell MD [address] [place] [address] [address] [place] [address] Phone: tel: fax: [facility] [address] [place] [address] Medical [facility] [address] [place] [address] Phone: tel: fax: Referral ID Status Reason Start Date Expiration Date V isits Requested Visits Authorized [id number] Closed Specialty Services Required 09/15/2023 10/10/2024 99 99 Question Answer Please select the performing region: [facility] (All Locations) [[id number]] Please select the performing department: [facility] IM ONC [facility] [id number] [[phone]] Is this referral for Breast Health Multi-Disciplinary Clinic? No Does the patient have a diagnosis of a Head and Neck cancer? No # of visits: 1 CH TEACHER Encounter Details Date Type Department Care Team (Late st Contact Info) Description 09/15/2023 Orders Only [facility] Oncology [address] [facility] Office Bldg Delio Erickson [address] [place] [phone] Yamileth Santiago, CLT 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, unspecified [...] on file Legal Sex Female 8:30 AM FRENCH TEACHER Gender Identity Female 10/06/2021 4:28 PM FRENCH TEACHER Sexual Orientation Choose not to disclose 2020 4:28 PM FRENCH TEACHER documented as of this encounter Plan of Treatment Scheduled Referrals Name Type Priority Associated Diagnoses Orde r Schedule Ambulatory referral to Oncology Outpatient Referral Routine 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, unspecified iron deficiency anemia type Expected: 09/29/2023 (Approximate), Expires: 09/15/2024 documented as of this encounter Visit Diagnoses Diagnosis 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, unspecified iron deficiency anemia type- Primary documented in this encounter Care Teams Bindery Manager Relationship Specialty Start Date End Date Gideon Campbell MD [address] [facility] [address] [place] [address] PCP - General Family Medicine 07/19/23 documented as of this encounter
--- OUTSIDE RECORDS SUMMARY | 2024-10-22 14:50 | XMS_ITS | Encounter Summary ---
Author Organization [facility] Address [address] [place] [address] Care Team Providers Care Ambulance Operations Supervisor Name Role Phone Denis Platt MD Primary Care Provide r Encounter Details Date Type Department Care Team (Late st Contact Info) Description 09/17/2022 Telephone [facility] Cardiology [address] [facility] [address] [place] [address] Andrade Brown MD [facility] [place] [id number] Social History Tobacco Use Types Packs/Day Years Used Date Smoking Tobacco: Former Cigarettes Q uit: 09/28/1978 Smokeless Tobacco: Never Alcohol Use Standard Drinks/Week Comments Yes 0 (1 standard drink = 0.6 oz pur e alcohol) Comments Unknown Sex and Gender Information Value Date Recorded Sex Assigned at Not on file Legal Sex Female 8:30 AM BACK PANEL PADDER Gender Identity Female 10/06/2021 4:28 PM BACK PANEL PADDER Sexual Orientation Choose not to disclose 2020 4:28 PM BACK PANEL PADDER documented as of this encounter Miscellaneous Notes * Telephone Encounter - Rachel Zhao RN - 09/23/2022 1:16 PM BACK PANEL PADDER Spoke with pt, reviewed message from [facility]-she is agreeable to go back on warfarin-she wanted to [id number] 5 days a week and 2mg 2 days a week and will recheck INR in 2 weeks. PANEL PADDER * Telephone Encounter - Rachel Zhao RN - 09/22/2022 9:15 AM BACK PANEL PADDER Sent pt [facility]'s response via my chart also. PANEL PADDER * Telephone Encounter - Rachel Zhao RN - 09/22/2022 9:13 AM BACK PANEL PADDER LM on VM reviewing message from [facility]-requested callback to discuss. PANEL PADDER * Telephone Encounter - Rachel Zhao RN - 09/21/2022 9:29 AM BACK PANEL PADDER LM on VM reviewing message from [facility]-requested callback to discuss. PANEL PADDER * Telephone Encounter - Rachel Zhao RN - 09/18/2022 10:21 AM BACK PANEL PADDER LM on VM reviewing message from [facility]-requested callback to discuss. PANEL PADDER * Telephone Encounter - Rachel Zhao RN - 09/17/2022 3:07 PM BACK PANEL PADDER Spoke with pt about INR from last [...] anymore if ok with [facility]. She would like to know his recommendations. Will forward to [facility]. Please advise, thank you! PANEL PADDER documented in this encounter Plan of Treatment Not on file documented as of this encounter Visit Diagnoses Not on filedocumented in this encounter Care Teams Ambulance Operations Supervisor Relationship Specialty Start Date End Date Denis Platt MD [address] [place], [place] [id number] PCP - General Family Medicine 01/14/22 07/18/23 documented as of this encounter
--- OUTSIDE RECORDS SUMMARY | 2024-10-22 14:50 | XMS_ITS | Encounter Summary ---
Author Organization [facility] Address [address] [place] [address] Care Team Providers Care Stove Refinisher Name Role Phone Denis Platt MD Primary Care Provide r Encounter Details Date Type Department Care Team (Latest Contact Info) Description 09/23/2022 Anticoagulation Visit [facility] Cardiology [address] 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
--- OUTSIDE RECORDS SUMMARY | 2024-10-22 14:50 | XMS_ITS | Encounter Summary ---
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 Procedures XR Hip Left 2 or 3 Views Herber Knott MD [address] [place] [address] [address] [address] Phone: tel: [facility] Referral ID Status Reason Start Date Expiration Date Visits Re quested Visits Authorized [id number] Closed 04/15/2023 04/15/2023 1 1 Reason for Visit * Reason Comments Follow-up Encounter Details Date Type Department Care Team (Late st Contact Info) Description 04/15/2023 9:45 AM CDT Office Visit [facility] Orthopedics and Sports Medicine [address] [facility] [address] [address] Herber Knott MD [address] [facility] [facility] [address] [place] [address] Aftercare following left hip joint [...] on file Legal Sex Female 8:30 AM REGISTRATION SPECIALIST Gender Identity Female 10/06/2021 4:28 PM REGISTRATION SPECIALIST Sexual Orientation Choose not to disclose 2020 4:28 PM REGISTRATION SPECIALIST documented as of this encounter Last [...] position with advanced right hip osteoarthritis with dwwu-[id number] contact, osteophyte formation, subluxation. Assessment/Plan Quin was [...] position with advanced right hip osteoarthritis with [id number]-ki-[id number] contact, osteophyte formation, subluxation. 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
--- OUTSIDE RECORDS SUMMARY | 2024-10-22 14:50 | XMS_ITS | Encounter Summary ---
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
--- OUTSIDE RECORDS SUMMARY | 2024-10-22 14:50 | XMS_ITS | Encounter Summary ---
Author Organization [facility] Address [address] [place] [address] Care Team Providers Care Purchasing Specialist Name Role Phone Denis Platt MD Primary Care Provide r Encounter Details Date Type Department Care Team (Late st Contact Info) Description 06/16/2023 9:25 AM CDT [address] [address] Pre-operative exam Social History Tobacco Use Types Packs/Day Years Used Date Smoking Tobacco: Former Cigarettes Q uit: 09/28/1978 Smokeless Tobacco: Never Alcohol Use Standard Drinks/Week Comments Yes 0 (1 standard drink = 0.6 oz pur e alcohol) Comments Unknown Sex and Gender Information Value Date Recorded Sex Assigned at Not on file Legal Sex Female 8:30 AM COMBAT SYSTEMS OPERATOR Gender Identity Female 10/06/2021 4:28 PM COMBAT SYSTEMS OPERATOR Sexual Orientation Choose not to disclose 2020 4:28 PM COMBAT SYSTEMS OPERATOR documented as of this encounter Plan [...] eGFR 77 mL/min/1. 73 m2 [facility] ([place]) Comment: Interpretive Data Reference Interval Normal ?>/= [...] BLOOD ORDERABLES Fin al Result [facility] ([place]) 1 [facility] [place] [address] * (ABNORMAL) Differential, auto (06/16/2023 10:05 AM [...] Fin al Result [facility] ([place]) 1 [facility] [place] [address] * (ABNORMAL) CBC with auto differential (06/16/2023 [...] Fin al Result [facility] ([place]) 1 [facility] [place] [address] * (ABNORMAL) Comprehensive metabolic panel (06/16/2023 10:05 [...] ORDERABLES Fin al Result Performing Organization Address [facility] Co de Phone Number [facility] ([place]) 1 [facility] [address] * Hemoglobin A1c (06/16/2023 10:05 AM CDT) Hgb A1C 5.2 4.0 - 5.6 % [facility] ([place]) Estimated Average Glucose 103 mg/dL [facility] ([place]) Comment: The ADA recommends reporting an estimated Average Glucose (eAG) with all Hemoglobin A1c results using the equation derived from a study of 507 normal and diabetic adults. ??Minority populations were underrepresented and children were not included. ?? (Diabetes Care 31:1527-8514, 2008). ??The eAG is not equivalent to a fasting glucose. Blood 06/16/2023 10:0 5 AM CDT 06/16/2023 11:05 AM CDT Hebrer Knott MD LAB BLOOD ORDERABLES Fin al Result Performing Organization Address [facility] de Phone Number [facility] ([place]) 1 [facility] [place] [address] documented in this encounter Visit Diagnoses Diagnosis Pre-operative exam Unspecified pre-operative examination documented in this encounter Care Teams Purchasing Specialist Relationship Specialty Start Date End Date Denis Platt MD [address] [place] [address] PCP - General Family Medicine 01/14/22 07/18/23 documented as of this encounter
--- OUTSIDE RECORDS SUMMARY | 2024-10-22 14:50 | XMS_ITS | Encounter Summary ---
Author Organization [facility] Address [address] [place] [address] Care Team Providers Care Edging Machine Feeder Name Role Phone Denis Platt MD Primary Care Provide r Reason for Visit * Reason Comments Follow-up 6 mo f/u Atrial Fibrillation Non-rheumatic aortic stenosis Encounter Details Date Type Department Care Team (Latest Contact Info) Description 07/22/2022 10:30 AM CDT Office Visit [facility] Cardiology [address] [place] [address] Andrade Brown MD [facility] [address] PAD (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/HCC) (HCC) (Primary Dx); 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 goal <100; 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 superintendent container terminal (current) use of anticoagulants [Z79.01] No bleeding [...] clinically indicated. 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
--- OUTSIDE RECORDS SUMMARY | 2024-10-22 14:50 | XMS_ITS | Encounter Summary ---
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
--- OUTSIDE RECORDS SUMMARY | 2024-10-22 14:50 | XMS_ITS | Encounter Summary ---
Author Organization [facility] Address [address] [place] [address] Care Team Providers Care Collection Card Clerk Name Role Phone Denis Platt MD Primary Care Provide r Reason for Visit * Reason Onset Date Comments Surgery Date 04/16/2023 Encounter Details Date Type Department Care Team (Late st Contact Info) Description 04/16/2023 Telephone [facility] Orthopedics and Sports Medicine [address] [facility] [address] [place] [address] Herber Knott MD [address] [place] [address] [address] [place], [place] [id number] Surgery Date Social History Tobacco Use Types Packs/Day Years Used Date Smoking Tobacco: Former Cigarettes Q uit: 09/28/1978 Smokeless Tobacco: Never Alcohol Use Standard Drinks/Week Comments Yes 0 (1 standard drink = 0.6 oz pur e alcohol) Comments Unknown Sex and Gender Information Value Date Recorded Sex Assigned at Not on file Legal Sex Female 8:30 AM GEOGRAPHY TEACHER Gender Identity Female 10/06/2021 4:28 PM GEOGRAPHY TEACHER Sexual Orientation Choose not to disclose 2020 4:28 PM GEOGRAPHY TEACHER documented as of this encounter Miscellaneous Notes [...] Amie's call, stated to call back @ [phone]---tried calling that #,, it is not accepting calls at this time. Left voicemail on [phone] to let us know which day she [...] on filedocumented in this encounter Care Teams Collection Card Clerk Relationship Specialty Start Date End Date Denis Platt MD [address] [place] [address] PCP - General Family Medicine 01/14/22 07/18/23 documented as of this encounter
--- OUTSIDE RECORDS SUMMARY | 2024-10-22 14:50 | XMS_ITS | Encounter Summary ---
Author Organization [facility] Address [address] [place] [address] Care Team Providers Care Store Worker Name Role Phone Denis Platt MD Primary Care Provide r Encounter Details Date Type Department Care Team (Late st Contact Info) Description 06/11/2023 Telephone [facility] Orthopedics and Sports Medicine [address] [facility] [address] [place] [address] Herber Knott MD [address] [place] [address] [address] [place] [address] Social History Tobacco Use Types Packs/Day Years Used Date Smoking Tobacco: Former Cigarettes Q uit: 09/28/1978 Smokeless Tobacco: Never Alcohol Use Standard Drinks/Week Comments Yes 0 (1 standard drink = 0.6 oz pur e alcohol) Comments Unknown Sex and Gender Information Value Date Recorded Sex Assigned at Not on file Legal Sex Female 8:30 AM BOTTLE AND GLASS INSPECTOR Gender Identity Female 10/06/2021 4:28 PM BOTTLE AND GLASS INSPECTOR Sexual Orientation Choose not to disclose 2020 4:28 PM BOTTLE AND GLASS INSPECTOR documented as of this encounter Miscellaneous Notes * Telephone Encounter - Amie Lion MA - 06/11/2023 11:23 AM CDT Called and lvm for patient to have labs and clearance done chloe. documented in this encounter Plan of Treatment Not on file documented as of this encounter Visit Diagnoses Not on filedocumented in this encounter Care Teams Store Worker Relationship Specialty Start Date End Date Denis Platt MD [address] [place] [address] PCP - General Family Medicine 01/14/22 07/18/23 documented as of this encounter
--- OUTSIDE RECORDS SUMMARY | 2024-10-22 14:50 | XMS_ITS | Encounter Summary ---
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 Social History Tobacco Use Types Packs/Day Years Used Date Smoking Tobacco: Former Cigarettes Q uit: 09/28/1978 Smokeless Tobacco: Never Alcohol Use Standard Drinks/Week Comments Yes 0 (1 standard drink = 0.6 oz pur e alcohol) Comments Unknown Sex and Gender Information Value Date Recorded Sex Assigned at Not on file Legal Sex Female 8:30 AM CASTING WHEEL OPERATOR HELPER Gender Identity Female 10/06/2021 4:28 PM CASTING WHEEL OPERATOR HELPER Sexual Orientation Choose not to disclose 2020 4:28 PM CASTING WHEEL OPERATOR HELPER documented as of this encounter [...] documented in this encounter Care Teams Adjunct Instructor Of Women'S Studies Relationship Specialty Start Date End Date Denis Platt MD [address] [place] [address] PCP - General Family Medicine 01/14/22 07/18/23 documented as of this encounter
--- OUTSIDE RECORDS SUMMARY | 2024-10-22 14:50 | XMS_ITS | Encounter Summary ---
Author Organization [facility] Address [address] [place] [address] Care Team Providers Care Forklift Truck Operator Name Role Phone Denis Platt MD Primary Care Provide r Reason for Visit * Diagnostic Imaging (Routine) - Closed Specialty Diagnoses / Procedures Referred By Lyndsey farmer Referred To Contact Diagnoses Primary osteoarthritis of right knee Procedures XR Hip Right 2 or 3 Views Ann Marie Puri PA Phone: tel: fax: [facility] Referral ID Status Reason Start Date Expiration Date Visits Re quested Visits Authorized [id number] Closed 04/02/2023 04/02/2023 1 1 Encounter Details Date Type Department Care Team (Latest Contact Info) Description 04/02/2023 3:51 PM CDT - 04/02/2023 11:59 PM CDT Hospital Encounter [facility] Orthopedics and Sports Medicine [address] [place] [address] [address] [address] Discharge Disposition: Discharge to home or self care Social History Tobacco Use Types Packs/Day Years Used Date Smoking Tobacco: Former Cigarettes Q uit: 09/28/1978 Smokeless Tobacco: Never Alcohol Use Standard Drinks/Week Comments Yes 0 (1 standard drink = 0.6 oz pur e alcohol) Comments Unknown Sex and Gender Information Value Date Recorded Sex Assigned at Not on file Legal Sex Female 8:30 AM PROCESS INSPECTOR Gender Identity Female 10/06/2021 4:28 PM PROCESS INSPECTOR Sexual Orientation Choose not to disclose 2020 4:28 PM PROCESS INSPECTOR documented as of this encounter Medications [...] on filedocumented in this encounter Care Teams Forklift Truck Operator Relationship Specialty Start Date End Date Denis Platt MD [address] [place] [address] PCP - General Family Medicine 01/14/22 07/18/23 documented as of this encounter
--- OUTSIDE RECORDS SUMMARY | 2024-10-22 14:50 | XMS_ITS | Encounter Summary ---
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
--- OUTSIDE RECORDS SUMMARY | 2024-10-22 14:50 | XMS_ITS | Encounter Summary ---
Author Organization [facility] Address [address] [place] [address] Care Team Providers Care Primary Care Pediatrician Name Role Phone Denis Platt MD Primary Care Provide r Reason for Visit * Reason Comments Aortic Stenosis Atrial Fibrillation 6 mo f/u Encounter Details Date Type Department Care Team (Latest Contact Info) Description 01/27/2023 11:30 AM CDT Office Visit [facility] Cardiology [address] [place] [address] Andrade Brown MD [address] [address] Non-rheumatic aortic stenosis (Primary Dx); Paroxysmal atrial fibrillation (CMS/HCC) (HCC); Essential hypertension; 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 goal <100; PAD (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) (HCC); 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
--- OUTSIDE RECORDS SUMMARY | 2024-10-22 14:50 | XMS_ITS | Encounter Summary ---
Author Organization [facility] Address [address] [place] [address] Care Team Providers Care Hospital Clerk Name Role Phone Denis Platt MD Primary Care Provide r Encounter Details Date Type Department Care Team (Late st Contact Info) Description 01/26/2023 Telephone [facility] Cardiology [address] [facility] [address] [place] [address] Andrade Brown MD [facility] [place] [id number] Social History Tobacco Use Types Packs/Day Years Used Date Smoking Tobacco: Former Cigarettes Q uit: 09/28/1978 Smokeless Tobacco: Never Alcohol Use Standard Drinks/Week Comments Yes 0 (1 standard drink = 0.6 oz pur e alcohol) Comments Unknown Sex and Gender Information Value Date Recorded Sex Assigned at Not on file Legal Sex Female 8:30 AM AMPOULE WASHING MACHINE OPERATOR Gender Identity Female 10/06/2021 4:28 PM AMPOULE WASHING MACHINE OPERATOR Sexual Orientation Choose not to disclose 2020 4:28 PM AMPOULE WASHING MACHINE OPERATOR documented as of this encounter Miscellaneous Notes * Telephone Encounter - Jacque Hitchcock RN - 01/26/2023 9:12 AM CDT Order faxed as requested. * Telephone Encounter - Elif Christina - 01/26/2023 8:45 AM CDT Alice called from [facility] requesting standing INR order be faxed. Contact: documented in this encounter Plan of Treatment Not on file documented as of this encounter Visit Diagnoses Not on filedocumented in this encounter Care Teams Hospital Clerk Relationship Specialty Start Date End Date Denis Platt MD [address] [place] [address] PCP - General Family Medicine 01/14/22 07/18/23 documented as of this encounter
--- OUTSIDE RECORDS SUMMARY | 2024-10-22 14:50 | XMS_ITS | Encounter Summary ---
Author Organization [facility] Healthcare Address [address] [place] [address] Care Team Providers Care Profile Grinder Name Role Phone Denis Platt MD Primary Care Provide r Reason for Referral * Cardiology (Routine) - Closed Specialty Diagnoses / Procedures Referred By Jayaac t Referred To Contact Diagnoses Pre-operative exam Procedures ECG 12 lead Herber Knott MD [address] [place] [address] [address] [address] Phone: tel: [address] [phone] Referral ID Status Reason Start Date Expiration Date Visits Re quested Visits Authorized [id number] Closed 04/22/2023 06/16/2023 1 1 Reason for Visit * Cardiology (Routine) - Closed Specialty Diagnoses / Procedures Referred By Lyndsey farmer Referred To Contact Diagnoses Pre-operative exam Procedures ECG 12 lead Herber Knott MD [address] [place] [address] [address], [place] [address] Phone: tel: [address] [phone] Referral ID Status Reason Start Date Expiration Date Visits Re quested Visits Authorized [id number] Closed 04/22/2023 06/16/2023 1 1 Encounter Details Date Type Department Care Team (Latest Contact Info) Description 06/16/2023 9:30 AM CDT - 06/16/2023 11:59 PM CDT Hospital Encounter [facility] Cardiology [address] [place] [address] Pre-operative exam Discharge Disposition: Discharge to home [...] file Legal Sex Female 8:30 AM TANK WASHER Gender Identity Female 10/06/2021 4:28 PM TANK WASHER Sexual Orientation Choose not to disclose 2020 4:28 PM TANK WASHER documented as of this encounter Medications at [...] CDT) 06/16/2023 11:0 0 AM CDT Narrative [facility] - 06/16/2023 11:36 AM CDT Vent Rate: 70 bpm RR Interval: 852 msec NE Interval: 139 msec QRS Duration: 132 msec QT Interval: 393 msec QTC Interval: 414 msec P-R-T [place]: 76 - -60 - 38 degrees SINUS [...] ECG ORDERABLES Edited R esult - Final [facility] [employer] [facility] documented in this encounter Visit Diagnoses Diagnosis Pre-operative exam Unspecified pre-operative examination documented in this encounter Care Teams Profile Grinder Relationship Specialty Start Date End Date Denis Platt MD [address] [place] [address] PCP - General Family Medicine 01/14/22 07/18/23 documented as of this encounter
--- OUTSIDE RECORDS SUMMARY | 2024-10-22 14:50 | XMS_ITS | Encounter Summary ---
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 Procedures XR Hip Left 2 or 3 Views Herber Knott MD [address] [place] [address] [address], [place] [address] Phone: tel: [facility] Referral ID Status Reason Start Date Expiration Date Visits Re quested Visits Authorized [id number] Closed 04/15/2023 04/15/2023 1 1 Encounter Details Date Type Department Care Team (Latest Contact Info) Description 04/15/2023 7:43 AM CDT - 04/15/2023 11:59 PM CDT Hospital Encounter [facility] Orthopedics and Sports Medicine [address] [facility] [address] [place] [id number] Discharge Disposition: Discharge to home or self care Social History Tobacco Use Types Packs/Day Years Used Date Smoking Tobacco: Former Cigarettes Q uit: 09/28/1978 Smokeless Tobacco: Never Alcohol Use Standard Drinks/Week Comments Yes 0 (1 standard drink = 0.6 oz pur e alcohol) Comments Unknown Sex and Gender Information Value Date Recorded Sex Assigned at Not on file Legal Sex Female 8:30 AM EFFICIENCY MANAGER Gender Identity Female 10/06/2021 4:28 PM EFFICIENCY MANAGER Sexual Orientation Choose not to disclose 2020 4:28 PM EFFICIENCY MANAGER documented as of this encounter Medications [...] position with advanced right hip osteoarthritis with [id number] contact, osteophyte formation, subluxation. us Herber Knott MD IMG XR PROCEDURES Final Result documented in this encounter Visit Diagnoses Not on filedocumented in this encounter Care Teams Hand Router Operator Relationship Specialty Start Date End Date Denis Platt MD [address] [place] [address] PCP - General Family Medicine 01/14/22 07/18/23 documented as of this encounter
--- OUTSIDE RECORDS SUMMARY | 2024-10-22 14:50 | XMS_ITS | Encounter Summary ---
Author Organization [facility] Medical Group Address [address] [address] Care Team Providers Care Driver Starting Gate Name Role Phone Denis Platt MD Primary Care Provide r Reason for Referral * Procedure (Routine) - Closed Specialty Diagnoses / Procedures Referred By Contac t Referred To Contact Diagnoses Primary osteoarthritis of right knee Procedures Large Joint (Hip, Knee, Shoulder) Injection: R knee Ann Marie Puri PA Phone: tel: fax: [facility] Referral ID Status Reason Start Date Expiration Date Visits Re quested Visits Authorized [id number] Closed 04/05/2023 04/05/2023 1 1 * Diagnostic Imaging (Routine) - Closed Specialty Diagnoses / Procedures Referred By Contac t Referred To Contact Diagnoses Primary osteoarthritis of right knee Procedures XR Hip Right 2 or 3 Views Ann Marie Puri PA Phone: tel: fax: [facility] Medical [facility] Referral ID Status Reason Start Date Expiration Date Visits Re quested Visits Authorized [id number] Closed 04/02/2023 04/02/2023 1 1 Reason for Visit * Reason Comments Pain Encounter Details Date Type Department Care Team (Late st Contact Info) Description 04/02/2023 3:15 PM CDT Office Visit [facility] Orthopedics and Sports Medicine [address] [facility] [address] [place] [address] Ann Marie Puri PA [address] [place] [address] [address] [place] [address] Primary osteoarthritis of right knee (Primary Dx); [...] file Legal Sex Female 8:30 AM SENIOR RESERVATIONS AGENT Gender Identity Female 10/06/2021 4:28 PM SENIOR RESERVATIONS AGENT Sexual Orientation Choose not to disclose 2020 4:28 PM SENIOR RESERVATIONS AGENT documented as of this encounter Last Filed [...] fluoro guided injection to be done at [facility], but the patient would tend to [...] PM CDT Primary osteoarthritis of right knee GA ARTHROCENTESIS ASPIR&/INJ MAJOR JT/BURSA W/O US Routine [...] IMG XR PROCEDURES Final Resu lt * GA ARTHROCENTESIS ASPIR&/INJ MAJOR JT/BURSA W/O US (04/02/2023 [...] Knee documented in this encounter Care Teams Driver Starting Gate Relationship Specialty Start Date End Date Denis Platt MD [address] [place] [address] PCP - General Family Medicine 01/14/22 07/18/23 documented as of this encounter
--- OUTSIDE RECORDS SUMMARY | 2024-10-22 14:50 | XMS_ITS | Encounter Summary ---
Author Organization [facility] Address [address] [place] [address] Care Team Providers Care Mold Design Engineer Name Role Phone Denis Platt MD Primary Care Provide r Encounter Details Date Type Department Care Team (Late st Contact Info) Description 04/22/2023 Documentation [facility] Orthopedics and Sports Medicine [address] [facility] [address] [place] [address] Amie Lion MA Social History Tobacco Use Types Packs/Day Years Used Date Smoking Tobacco: Former Cigarettes Q uit: 09/28/1978 Smokeless Tobacco: Never Alcohol Use Standard Drinks/Week Comments Yes 0 (1 standard drink = 0.6 oz pur e alcohol) Comments Unknown Sex and Gender Information Value Date Recorded Sex Assigned at Not on file Legal Sex Female 8:30 AM MOTOR AND GENERATOR BRUSH MAKER Gender Identity Female 10/06/2021 4:28 PM MOTOR AND GENERATOR BRUSH MAKER Sexual Orientation Choose not to disclose 2020 4:28 PM MOTOR AND GENERATOR BRUSH MAKER documented as of this encounter Progress Notes [...] on filedocumented in this encounter Care Teams Mold Design Engineer Relationship Specialty Start Date End Date Denis Platt MD [address] [place] [address] PCP - General Family Medicine 01/14/22 07/18/23 documented as of this encounter
--- OUTSIDE RECORDS SUMMARY | 2024-10-22 14:50 | XMS_ITS | Encounter Summary ---
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 Social History Tobacco Use Types Packs/Day Years Used Date Smoking Tobacco: Former Cigarettes Q uit: 09/28/1978 Smokeless Tobacco: Never Alcohol Use Standard Drinks/Week Comments Yes 0 (1 standard drink = 0.6 oz pur e alcohol) Comments Unknown Sex and Gender Information Value Date Recorded Sex Assigned at Not on file Legal Sex Female 8:30 AM HAMMERER Gender Identity Female 10/06/2021 4:28 PM HAMMERER Sexual Orientation Choose not to disclose 2020 4:28 PM HAMMERER documented as of this encounter Plan of [...] therapy documented in this encounter Care Teams Internal Combustion Engineer Relationship Specialty Start Date End Date Denis Platt MD [address] [place] [address] PCP - General Family Medicine 01/14/22 07/18/23 documented as of this encounter
--- OUTSIDE RECORDS SUMMARY | 2024-10-22 14:50 | XMS_ITS | Encounter Summary ---
Author Organization [facility] Address [address] [place] [address] Care Team Providers Care Rack Loader Name Role Phone Denis Platt MD Primary Care Provide r Encounter Details Date Type Department Care Team (Late st Contact Info) Description 01/20/2023 Telephone [facility] Cardiology [address] [facility] [address] [place] [address] Andrade Brown MD [facility] [place] [id number] Social History Tobacco Use Types Packs/Day Years Used Date Smoking Tobacco: Former Cigarettes Q uit: 09/28/1978 Smokeless Tobacco: Never Alcohol Use Standard Drinks/Week Comments Yes 0 (1 standard drink = 0.6 oz pur e alcohol) Comments Unknown Sex and Gender Information Value Date Recorded Sex Assigned at Not on file Legal Sex Female 8:30 AM SHIPPING SUPERVISOR Gender Identity Female 10/06/2021 4:28 PM SHIPPING SUPERVISOR Sexual Orientation Choose not to disclose 2020 4:28 PM SHIPPING SUPERVISOR documented as of this encounter Miscellaneous Notes * Telephone Encounter - Jacque Hitchcock RN - 01/25/2023 3:31 PM CDT Standing order for INR faxed to [facility] as requested. * Telephone Encounter - [...] Lab Routine Atrial fibrillation, unspecified type (HCC) halfway current use of anticoagulant therapy 52 Occurrences starting 01/25/2023 until 01/26/2024 documented as of this encounter Visit Diagnoses Diagnosis Atrial fibrillation, unspecified type (HCC)- Primary halfway current use of anticoagulant therapy documented in this encounter Care Teams Rack Loader Relationship Specialty Start Date End Date Denis Platt MD [address] [place] [address] PCP - General Family Medicine 01/14/22 07/18/23 documented as of this encounter
--- OUTSIDE RECORDS SUMMARY | 2024-10-22 14:50 | XMS_ITS | Encounter Summary ---
Author Organization [facility] Medical [facility] Address [address] [place] [address] Care Team Providers Care Boring Machine Operator Name Role Phone Denis Platt MD Primary Care Provide r Reason for Referral * Cardiology (Routine) - Closed Specialty Diagnoses / Procedures Referred By Lyndsey t Referred To Contact Diagnoses Pre-operative exam Procedures ECG 12 lead Herber Knott MD [address] [place] [address] [address], [place] [address] Phone: tel: [facility] [address] [place] [address] Referral ID Status Reason Start Date Expiration Date Visits Re quested Visits Authorized [id number] Closed 04/22/2023 06/16/2023 1 1 Encounter Details Date Type Department Care Team (Late st Contact Info) Description 04/22/[address] [facility] Medical [facility] Orthopedics and Sports Medicine [address] [facility] [address] [address] Herber Knott MD [address] [place] [address] [address] [place] [address] Pre-operative exam (Primary Dx) Social History Tobacco Use Types Packs/Day Years Used Date Smoking Tobacco: Former Cigarettes Q uit: 09/28/1978 Smokeless Tobacco: Never Alcohol Use Standard Drinks/Week Comments Yes 0 (1 standard drink = 0.6 oz pur e alcohol) Comments Unknown Sex and Gender Information Value Date Recorded Sex Assigned at Not on file Legal Sex Female 8:30 AM GOLF CLUB WEIGHER Gender Identity Female 10/06/2021 4:28 PM GOLF CLUB WEIGHER Sexual Orientation Choose not to disclose 2020 4:28 PM GOLF CLUB WEIGHER documented as of this encounter Miscellaneous Notes [...] tendency for uric acid stone formation. Source: [employer]. Last revised 10-21-2017 Herber Knott MD LAB MICROBIOLOGY - GENER AL ORDERABLES Final Result Performing Organization Address [facility] Co de Phone Number [facility] ([place]) [address] [facility] Department [place] [address] * ECG 12 lead (06/16/2023 10:25 AM CDT) 06/16/2023 11:0 0 AM CDT Narrative [facility] - 06/16/2023 11:36 AM CDT Vent Rate: 70 bpm RR Interval: 852 msec [place] Interval: 139 msec QRS Duration: 132 msec QT Interval: 393 msec QTC Interval: 414 msec P-R-T [place]: 76 - -60 - 38 degrees SINUS [...] R esult - Final Performing Organization Address [facility] de Phone Number [facility] [employer] [facility] * (ABNORMAL) CBC with auto [...] ([place]) MCHC 28.7(L) 32.3 - 35.7 g/dL [facility] RDW CV 18.2(H) 11.1 - 14.9 % [facility] ([place]) RDW SD 46.0 35.7 - 48.1 fL [facility] ([place] NRBC abs 0.00 0.00 - 0.01 K/cumm [facility] ([place] Blood 06/16/2023 10:0 5 AM CDT 06/16/2023 11:05 AM CDT us Herber Knott MD LAB BLOOD ORDERABLES Fin al Result [facility] ([place]) [address] [facility] [place] [address] * (ABNORMAL) Comprehensive metabolic panel (06/16/2023 10:05 AM CDT) Sodium 137 135 - 145 mmol/L [facility] ([place] Potassium, pl 4.0 3.3 - 4.9 mmol/L [facility] ([place] Chloride 99 97 - 110 mmol/L [facility] ([place]) CO2 25 22 - 32 mmol/L [facility] ([place]) Anion gap 14 2 - 15 mmol/L [facility] ([place] BUN 14 6 - 25 mg/dL [facility] ([place] Creatinine 0.76 0.60 - 1.10 mg/dL [facility] ([place]) Glucose 104 70 - 199 mg/dL [facility] ([place] Comment: Interpretive Data [...] 2022. Calcium 9.2 8.5 - 10.3 mg/dL [facility] ([place] Bilirubin, total 0.5 [...] LAB BLOOD ORDERABLES Fin al Result [facility] ([place]) [address] [facility] [place] [address] * Hemoglobin A1c (06/16/2023 10:05 AM CDT) Hgb A1C 5.2 4.0 - 5.6 % [facility] ([place]) Estimated Average Glucose 103 mg/dL [facility] ([place]) Comment: The ADA recommends reporting an estimated Average Glucose (eAG) with all Hemoglobin A1c results using the equation derived from a study of 507 normal and diabetic adults. ??Minority populations were underrepresented and children were not included. ?? (Diabetes Care 31:9456-6140, 2008). ??The eAG is not equivalent to a fasting glucose. Blood 06/16/2023 10:0 5 AM CDT 06/16/2023 11:05 AM CDT us Herber Knott MD LAB BLOOD ORDERABLES Fin al Result [facility] [place]) [address] [facility] [place] [address] * XR Chest Pa Lateral 2 Views [...] PM T: ??06/17/2023 5:08 PM Report ID: [id number] Reading Location: ??[id number] Procedure Note Kali Georges MD - 06/17/2023 [...] by Kali Georges M.D., JR: Report ID: [id number] Reading Location: [id number] Herber Knott MD IMG XR PROCEDURES Final Result documented in this encounter Visit Diagnoses Diagnosis Pre-operative exam- Primary Unspecified pre-operative examination Pre-operative exam Unspecified pre-operative examination Pre-operative exam Unspecified pre-operative examination Pre-operative exam Unspecified pre-operative examination documented in this encounter Care Teams Boring Machine Operator Relationship Specialty Start Date End Date Denis Platt MD [address] [place] [address] PCP - General Family Medicine 01/14/22 07/18/23 documented as of this encounter
--- OUTSIDE RECORDS SUMMARY | 2024-10-22 14:50 | XMS_ITS | Encounter Summary ---
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 Social History Tobacco Use Types Packs/Day Years Used Date Smoking Tobacco: Former Cigarettes Q uit: 09/28/1978 Smokeless Tobacco: Never Alcohol Use Standard Drinks/Week Comments Yes 0 (1 standard drink = 0.6 oz pur e alcohol) Comments Unknown Sex and Gender Information Value Date Recorded Sex Assigned at Not on file Legal Sex Female 8:30 AM HAIRSPRING INSPECTOR Gender Identity Female 10/06/2021 4:28 PM HAIRSPRING INSPECTOR Sexual Orientation Choose not to disclose 2020 4:28 PM HAIRSPRING INSPECTOR documented as of this encounter Plan [...] therapy documented in this encounter Care Teams System Planning Engineer Relationship Specialty Start Date End Date Denis Platt MD [address] [place] [address] PCP - General Family Medicine 01/14/22 07/18/23 documented as of this encounter
--- OUTSIDE RECORDS SUMMARY | 2024-10-22 14:50 | XMS_ITS | Encounter Summary ---
Author Organization [facility] Address [address] [place] [address] Care Team Providers Care Epoxy Coatings Installer Name Role Phone Denis Platt MD Primary Care Provide r Encounter Details Date Type Department Care Team (Latest Contact Info) Description 06/19/2022 Anticoagulation Visit [facility] Cardiology [address] [place] [address] Jacque Hitchcock RN Atrial fibrillation, unspecified type (HCC) (Primary Dx); long term current use of anticoagulant therapy Social History Tobacco Use Types Packs/Day Years Used Date Smoking Tobacco: Former Cigarettes Q uit: 09/28/1978 Smokeless Tobacco: Never Alcohol Use Standard Drinks/Week Comments Yes 0 (1 standard drink = 0.6 oz pur e alcohol) Comments Unknown Sex and Gender Information Value Date Recorded Sex Assigned at Not on file Legal Sex Female 8:30 AM MOLDER INFLATED BALL Gender Identity Female 10/06/2021 4:28 PM MOLDER INFLATED BALL Sexual Orientation Choose not to disclose 2020 4:28 PM MOLDER INFLATED BALL documented as of this encounter Plan of [...] fibrillation, unspecified type (HCC)- Primary long term current use of anticoagulant therapy documented in this encounter Care Teams Epoxy Coatings Installer Relationship Specialty Start Date End Date Denis Platt MD [address] [place] [address] PCP - General Family Medicine 01/14/22 07/18/23 documented as of this encounter
--- OUTSIDE RECORDS SUMMARY | 2024-10-22 14:50 | XMS_ITS | Encounter Summary ---
Author Organization [facility] Address [address] [place] [address] Care Team Providers Care Heel Sewer Name Role Phone Denis Platt MD Primary Care Provide r Encounter Details Date Type Department Care Team (Late st Contact Info) Description 01/15/2023 Telephone [facility] Cardiology [address] [facility] [address] [place] [address] Andrade Brown MD [facility] [place] [id number] Social History Tobacco Use Types Packs/Day Years Used Date Smoking Tobacco: Former Cigarettes Q uit: 09/28/1978 Smokeless Tobacco: Never Alcohol Use Standard Drinks/Week Comments Yes 0 (1 standard drink = 0.6 oz pur e alcohol) Comments Unknown Sex and Gender Information Value Date Recorded Sex Assigned at Not on file Legal Sex Female 8:30 AM POLYSOMNOGRAPH TECH Gender Identity Female 10/06/2021 4:28 PM POLYSOMNOGRAPH TECH Sexual Orientation Choose not to disclose 2020 4:28 PM POLYSOMNOGRAPH TECH documented as of this encounter Miscellaneous [...] been a re-occuring problem. Will forward to [facility] as FYI. Pt has an upcoming appt on 01/27. documented in this encounter Plan of Treatment Not on file documented as of this encounter Visit Diagnoses Not on filedocumented in this encounter Care Teams Heel Sewer Relationship Specialty Start Date End Date Denis Platt MD [address] [place] [id number] PCP - General Family Medicine 01/14/22 07/18/23 documented as of this encounter
--- OUTSIDE RECORDS SUMMARY | 2024-10-22 14:50 | XMS_ITS | Encounter Summary ---
Author Organization [facility] Address [address] [place] [address] Care Team Providers Care Dean Of Students Name Role Phone Denis Platt MD Primary Care Provide r Encounter Details Date Type Department Care Team (Latest Contact Info) Description 08/05/2022 Anticoagulation Visit [facility] Cardiology [address] [place] [address] Jacque Hitchcock RN Atrial fibrillation, [...] on file Legal Sex Female 8:30 AM PRESS SUPERVISOR Gender Identity Female 10/06/2021 4:28 PM PRESS SUPERVISOR Sexual Orientation Choose not to disclose 2020 4:28 PM PRESS SUPERVISOR documented as of this encounter Plan [...] Atrial fibrillation, unspecified type (HCC)- Primary 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
--- OUTSIDE RECORDS SUMMARY | 2024-10-22 14:50 | XMS_ITS | Encounter Summary ---
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 Social History Tobacco Use Types Packs/Day Years Used Date Smoking Tobacco: Former Cigarettes Q uit: 09/28/1978 Smokeless Tobacco: Never Alcohol Use Standard Drinks/Week Comments Yes 0 (1 standard drink = 0.6 oz pur e alcohol) Comments Unknown Sex and Gender Information Value Date Recorded Sex Assigned at Not on file Legal Sex Female 8:30 AM PROJECT ENG Gender Identity Female 10/06/2021 4:28 PM PROJECT ENG Sexual Orientation Choose not to disclose 2020 4:28 PM PROJECT ENG documented as of this encounter Plan of [...] therapy documented in this encounter Care Teams Otm Consultant Relationship Specialty Start Date End Date Denis Platt MD [address] [place] [address] PCP - General Family Medicine 01/14/22 07/18/23 documented as of this encounter
--- OUTSIDE RECORDS SUMMARY | 2024-10-22 14:50 | XMS_ITS | Encounter Summary ---
Author Organization [facility] Address [address] [facility] [address] [facility] [address] [place] [address] Care Team Providers Care Scarfer Operator Name Role Phone Denis Platt MD Primary Care Provide r Encounter Details Date Type Department Care Team (Late st Contact Info) Description 09/10/2022 Telephone [facility] Cardiology [address] [facility] [address] [place] [address] Andrade Brown MD [facility] [place] [id number] Social History Tobacco Use Types Packs/Day Years Used Date Smoking Tobacco: Former Cigarettes Q uit: 09/28/1978 Smokeless Tobacco: Never Alcohol Use Standard Drinks/Week Comments Yes 0 (1 standard drink = 0.6 oz pur e alcohol) Comments Unknown Sex and Gender Information Value Date Recorded Sex Assigned at Not on file Legal Sex Female 8:30 AM MEDICAL ADMINISTRATIVE TECHNICIAN Gender Identity Female 10/06/2021 4:28 PM MEDICAL ADMINISTRATIVE TECHNICIAN Sexual Orientation Choose not to disclose 2020 4:28 PM MEDICAL ADMINISTRATIVE TECHNICIAN documented as of this encounter Miscellaneous Notes * Telephone Encounter - Jacque Hitchcock RN - 09/10/2022 11:24 AM MEDICAL ADMINISTRATIVE TECHNICIAN Called and spoke with pt, pt agreed to go to ER. Pt will go to [facility]. Called [facility], spoke with Olivia SETH to make aware. MAF aware. CAL ADMINISTRATIVE TECHNICIAN * Telephone Encounter - Elif Christina - 09/10/2022 11:05 AM CST Elizabeth called from [facility] to report a critical INR result. They repeated it as requested. Pt still refusing to go to ER. Pt states she is going home to take a nap. INR- 12.7 Contact: CAL ADMINISTRATIVE TECHNICIAN CAL ADMINISTRATIVE TECHNICIAN * Telephone Encounter - Jacque Hitchcock RN - 09/10/2022 9:38 AM MEDICAL ADMINISTRATIVE TECHNICIAN [facility] of 12.2. [...] STAT. Pt agrees. Will await repeat INR. CAL ADMINISTRATIVE TECHNICIAN CAL ADMINISTRATIVE TECHNICIAN documented in this encounter Plan of Treatment Not on file documented as of this encounter Visit Diagnoses Not on filedocumented in this encounter Care Teams Scarfer Operator Relationship Specialty Start Date End Date Denis Platt MD [address] [place] [address] PCP - General Family Medicine 01/14/22 07/18/23 documented as of this encounter
--- OUTSIDE RECORDS SUMMARY | 2024-10-22 14:51 | XMS_ITS | Encounter Summary ---
Author Organization [facility] Address [address] [place] [address] Care Team Providers Care Offset Duplicating Machine Operator Name Role Phone Denis Platt MD Primary Care Provide r Encounter Details Date Type Department Care Team (Late st Contact Info) Description 04/14/2022 Telephone [facility] Orthopedics and Sports Medicine [address] [facility] [address] [place] [address] Herber Knott MD [address] [place] [address] [address] [place] [address] Social History Tobacco Use Types Packs/Day Years Used Date Smoking Tobacco: Former Cigarettes Q uit: 09/28/1978 Smokeless Tobacco: Never Alcohol Use Standard Drinks/Week Comments Yes 0 (1 standard drink = 0.6 oz pur e alcohol) Comments Unknown Sex and Gender Information Value Date Recorded Sex Assigned at Not on file Legal Sex Female 8:30 AM HYDROMETER FINISHER Gender Identity Female 10/06/2021 4:28 PM HYDROMETER FINISHER Sexual Orientation Choose not to disclose 2020 4:28 PM HYDROMETER FINISHER documented as of this encounter Miscellaneous Notes * Telephone Encounter - Stephanie Saldaña - 04/14/2022 10:48 AM CDT Padmini with [facility] called stating they still need the op note documented. documented in this encounter Plan of Treatment Not on file documented as of this encounter Visit Diagnoses Not on filedocumented in this encounter Care Teams Offset Duplicating Machine Operator Relationship Specialty Start Date End Date Denis Platt MD [address] [place] [address] PCP - General Family Medicine 01/14/22 07/18/23 documented as of this encounter
--- OUTSIDE RECORDS SUMMARY | 2024-10-22 14:51 | XMS_ITS | Encounter Summary ---
Author Organization [facility] Address [address] [place] [address] Care Team Providers Care Tip Bander Name Role Phone Denis Platt MD Primary Care Provide r Encounter Details Date Type Department Care Team (Late st Contact Info) Description 04/08/2022 Telephone [facility] Orthopedics and Sports Medicine [address] [facility] [address] [address] Tiana Beltran MA Social History Tobacco Use Types Packs/Day Years Used Date Smoking Tobacco: Former Cigarettes Q uit: 09/28/1978 Smokeless Tobacco: Never Alcohol Use Standard Drinks/Week Comments Yes 0 (1 standard drink = 0.6 oz pur e alcohol) Comments Unknown Sex and Gender Information Value Date Recorded Sex Assigned at Not on file Legal Sex Female 8:30 AM VOLUNTEER RECRUITER Gender Identity Female 10/06/2021 4:28 PM VOLUNTEER RECRUITER Sexual Orientation Choose not to disclose 2020 4:28 PM VOLUNTEER RECRUITER documented as of this encounter Miscellaneous Notes [...] to get a verbal and call back. [phone] I could not reach Dr. Knott or [...] on filedocumented in this encounter Care Teams Tip Bander Relationship Specialty Start Date End Date Denis Platt MD [address] [place] [address] PCP - General Family Medicine 01/14/22 07/18/23 documented as of this encounter
--- OUTSIDE RECORDS SUMMARY | 2024-10-22 14:51 | XMS_ITS | Encounter Summary ---
Author Organization [facility] Address [address] [place] [address] Care Team Providers Care Deli Manager Name Role Phone Denis Platt MD Primary Care Provide r Reason for Visit * Reason Comments Post-op Encounter Details Date Type Department Care Team ([facility] st Contact Info) Description 04/21/2022 11:00 AM CDT Office Visit [facility] Orthopedics and Sports Medicine [address] [facility] [address] [place] [address] Victoria Madison PA [address] [place] [address] [address] [place] [address] 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 [...] on file Legal Sex Female 8:30 AM TOPPER PRESS OPERATOR Gender Identity Female 10/06/2021 4:28 PM TOPPER PRESS OPERATOR Sexual Orientation Choose not to disclose 2020 4:28 PM TOPPER PRESS OPERATOR documented as of this encounter [...] 3 added in this encounter Care Teams Deli Manager Relationship Specialty Start Date End Date Denis Platt MD [address] [place], [place] [phone] PCP - General Family Medicine 01/14/22 07/18/23 documented as of this encounter
--- OUTSIDE RECORDS SUMMARY | 2024-10-22 14:51 | XMS_ITS | Encounter Summary ---
Author Organization [facility] Address [address] [facility] [address] [facility] [address] [place] [address] Care Team Providers Care Director Human Services Name Role Phone Denis Platt MD Primary Care Provide r Reason for Referral * Diagnostic Imaging (Routine) - Closed Specialty Diagnoses / Procedures Referred By Lyndsey farmer Referred To Contact Diagnoses Left hip pain Procedures XR Hip Left 2 or 3 Views Kami Lyons PA Phone: tel: fax: [facility] Referral ID Status Reason Start Date Expiration Date Visits Re quested Visits Authorized [id number] Closed 02/26/2022 03/28/2023 1 1 Reason for Visit * Reason Comments Pain Encounter Details Date Type Department Care Team (Late st Contact Info) Description 02/26/2022 3:15 PM CDT Office Visit [facility] Orthopedics and Sports Medicine [address] [place] [address] [address] [address] [place] [address] [place] [address] Left hip pain (Primary Dx); Primary osteoarthritis [...] file Legal Sex Female 8:30 AM SENIOR COMPUTER SPECIALIST Gender Identity Female 10/06/2021 4:28 PM SENIOR COMPUTER SPECIALIST Sexual Orientation Choose not to disclose 2020 4:28 PM SENIOR COMPUTER SPECIALIST documented as of this encounter Last [...] hip documented in this encounter Care Teams Director Human Services Relationship Specialty Start Date End Date Denis Platt MD [address] [place] [address] PCP - General Family Medicine 01/14/22 07/18/23 documented as of this encounter
--- OUTSIDE RECORDS SUMMARY | 2024-10-22 14:51 | XMS_ITS | Encounter Summary ---
Author Organization [facility] Address [address] [place] [address] Care Team Providers Care Intel Analyst Name Role Phone Denis Platt MD Primary Care Provide r Encounter Details Date Type Department Care Team (Latest Contact Info) Description 04/24/[address] [facility] Cardiology [address] [place] [address] Rosy White RN Atrial fibrillation, [...] on file Legal Sex Female 8:30 AM BUILDING MAINTENANCE ENGINEER Gender Identity Female 10/06/2021 4:28 PM BUILDING MAINTENANCE ENGINEER Sexual Orientation Choose not to disclose 2020 4:28 PM BUILDING MAINTENANCE ENGINEER documented as of this encounter Plan [...] therapy documented in this encounter Care Teams Intel Analyst Relationship Specialty Start Date End Date Denis Platt MD [address] [place] [address] PCP - General Family Medicine 01/14/22 07/18/23 documented as of this encounter
--- OUTSIDE RECORDS SUMMARY | 2024-10-22 14:51 | XMS_ITS | Encounter Summary ---
Author Organization [facility] Address [address] [address] Care Team Providers Care Boss Dyer Name Role Phone Devaughn Macias MD Primary Care Provider Reason for Referral * Procedure (Routine) - Closed Specialty Diagnoses / Procedures Referred By Contac t Referred To Contact Diagnoses Primary osteoarthritis of left knee Procedures Large Joint (Hip, Knee, Shoulder) Injection: L knee Victoria Madison PA [address] [place] [address] Phone: tel: fax: [facility] Referral ID Status Reason Start Date Expiration Date Visits Re quested Visits Authorized [id number] Closed 10/30/2021 11/29/2022 1 1 ERY DEPARTMENT MANAGER * Diagnostic Imaging (Routine) - Closed Specialty Diagnoses / Procedures Referred By Contac t Referred To Contact Diagnoses Left knee pain, unspecified chronicity Procedures XR Knee Left 4 or More Views Victoria Madison PA [address] [place] [address] [place] [address] Phone: tel: fax: Referral ID Status Reason Start Date Expiration Date Visits Re quested Visits Authorized [id number] Closed 10/30/2021 11/29/2022 1 1 ERY DEPARTMENT MANAGER Reason for Visit * Reason Comments Pain Encounter Details Date Type Department Care Team (Late st Contact Info) Description 10/30/2021 9:00 AM GROCERY DEPARTMENT MANAGER Office Visit [facility] Orthopedics and Sports Medicine [address] [place] [address] [address] [place] [phone] Victoria Madison PA [address] [place] [address] [address] [place] [address] Primary osteoarthritis of left knee (Primary Dx); [...] on file Legal Sex Female 8:30 AM GROCERY DEPARTMENT MANAGER Gender Identity Female 10/06/2021 4:28 PM GROCERY DEPARTMENT MANAGER Sexual Orientation Choose not to disclose 2020 4:28 PM GROCERY DEPARTMENT MANAGER documented as of this encounter Last Filed Vital Signs Vital Sign Reading Time Taken Comments Blood Pressure 172/77 10/30/2021 8:52 AM GROCERY DEPARTMENT MANAGER Pulse 56 10/30/2021 8:52 AM GROCERY DEPARTMENT MANAGER Temperature - - Respiratory Rate - - Oxygen Saturation - - Inhaled Oxygen Concentration - - Weight 86.2 kg (190 lb) 10/30/2021 8:52 AM GROCERY DEPARTMENT MANAGER Height 165.1 cm (5' 5 ) 10/30/2021 8:52 AM GROCERY DEPARTMENT MANAGER Body Mass Index 31.62 10/30/2021 8:52 AM GROCERY DEPARTMENT MANAGER documented in this encounter Progress Notes * [...] Herber Knott MD at 11/04/2021 3:51 PM GROCERY DEPARTMENT MANAGER ERY DEPARTMENT MANAGER ERY DEPARTMENT MANAGER documented in this encounter Plan of Treatment Not on file documented as of this encounter Procedures Procedure Name Priority Date/Time Associated Diagnosis Comments AL ARTHROCENTESIS ASPIR&/INJ MAJOR JT/BURSA W/O US Routine 10/30/2021 9:00 AM GROCERY DEPARTMENT MANAGER Primary osteoarthritis of left knee XR KNEE LEFT 4 OR MORE VIEWS Schedule Routine, Read Routine (OP Routine) 10/30/2021 8:49 AM GROCERY DEPARTMENT MANAGER Primary osteoarthritis of left knee documented in this encounter Results * AL ARTHROCENTESIS ASPIR&/INJ MAJOR JT/BURSA W/O US (10/30/2021 9:00 AM GROCERY DEPARTMENT MANAGER) Narrative Herber Knott MD - 10/30/2021 9:00 AM GROCERY DEPARTMENT MANAGER Victoria Madison PA ? 10/30/2021 ??9:44 AM [...] 4 or More Views (10/30/2021 8:49 AM GROCERY DEPARTMENT MANAGER) Anatomical Region Laterality Modality Lower Extremities, Knee Left Digital Radiography Narrative 10/30/2021 9:37 AM GROCERY DEPARTMENT MANAGER Radiographs taken of the left knee today [...] of Local Anesthesia Given 10/30/2021 9:44 AM GROCERY DEPARTMENT MANAGER 3 mL triamcinolone (KENALOG) 40 mg/mL injection 40 mg 40 mg, intra-articular, One-Time Injection, Starting on Lisbeth 10/30/21 at 0944, For 1 doseIndications:Primary osteoarthritis of left knee Given 10/30/2021 9:44 AM GROCERY DEPARTMENT MANAGER 40 mg documented in this encounter Care Teams Boss Dyer Relationship Specialty Start Date End Date Devaughn Macias MD PCP - General Family Medicine 01/31/20 01/13/22 documented as of this encounter
--- OUTSIDE RECORDS SUMMARY | 2024-10-22 14:51 | XMS_ITS | Encounter Summary ---
Author Organization [facility] Address [address] [place] [address] Care Team Providers Care Concession Manager Name Role Phone Denis Platt MD Primary Care Provide r Encounter Details Date Type Department Care Team (Late st Contact Info) Description 03/25/2022 Orders Only [facility] Orthopedics and Sports Medicine [address] [facility] [address] [place] [address] Herber Knott MD [address] [place] [address] [address] [place], [place] [id number] Social History Tobacco Use Types Packs/Day Years Used Date Smoking Tobacco: Former Cigarettes Q uit: 09/28/1978 Smokeless Tobacco: Never Alcohol Use Standard Drinks/Week Comments Yes 0 (1 standard drink = 0.6 oz pur e alcohol) Comments Unknown Sex and Gender Information Value Date Recorded Sex Assigned at Not on file Legal Sex Female 8:30 AM PLATE MILL HAND Gender Identity Female 10/06/2021 4:28 PM PLATE MILL HAND Sexual Orientation Choose not to disclose 2020 4:28 PM PLATE MILL HAND documented as of this encounter Ordered Prescriptions [...] on filedocumented in this encounter Care Teams Concession Manager Relationship Specialty Start Date End Date Denis Platt MD [address] [place], [place] [phone] PCP - General Family Medicine 01/14/22 07/18/23 documented as of this encounter
--- OUTSIDE RECORDS SUMMARY | 2024-10-22 14:51 | XMS_ITS | Encounter Summary ---
Author Organization [facility] Address [address] [address] [place] [address] Care Team Providers Care Electronic Equipment Maint Tech Name Role Phone Denis Platt MD Primary Care Provide r Encounter Details Date Type Department Care Team (Late st Contact Info) Description 03/25/2022 Telephone [facility] Orthopedics and Sports Medicine [address] [facility] [address] [place] [address] Herber Knott MD [address] [place] [address] [address] [place] [address] Social History Tobacco Use Types Packs/Day Years Used Date Smoking Tobacco: Former Cigarettes Q uit: 09/28/1978 Smokeless Tobacco: Never Alcohol Use Standard Drinks/Week Comments Yes 0 (1 standard drink = 0.6 oz pur e alcohol) Comments Unknown Sex and Gender Information Value Date Recorded Sex Assigned at Not on file Legal Sex Female 8:30 AM DOOR TO DOOR SELLING DISTRIBUTOR Gender Identity Female 10/06/2021 4:28 PM DOOR TO DOOR SELLING DISTRIBUTOR Sexual Orientation Choose not to disclose 2020 4:28 PM DOOR TO DOOR SELLING DISTRIBUTOR documented as of this encounter Miscellaneous Notes * Telephone Encounter - Anh Polanco - 03/25/2022 4:28 PM CDT Per Padmini needs written order. This was faxed * Telephone Encounter - Lilly Moncada MA - 03/25/2022 12:14 PM CDT Talked to patient script sent to pharmacy LM for padmini [phone] to let her know repeat urine morning of surgery * Telephone Encounter - Lilly Moncada MA - 03/25/2022 10:41 AM CDT LM for patient to return call * Telephone Encounter - Victoria Madsion PA - 03/25/2022 9:36 AM CDT Please [...] on filedocumented in this encounter Care Teams Electronic Equipment Maint Tech Relationship Specialty Start Date End Date Denis Platt MD [address] [place], [place] [id number] PCP - General Family Medicine 01/14/22 07/18/23 documented as of this encounter
--- OUTSIDE RECORDS SUMMARY | 2024-10-22 14:51 | XMS_ITS | Encounter Summary ---
Author Organization [facility] Healthcare Address [address] [place] [address] Care Team Providers Care Compacting Machine Operator/Tender Name Role Phone Devaughn Macias MD Primary Care Provider Denis Platt MD Primary Care Provide r Gideon Campbell MD Primary Care Provider [phone] Encounter Details Date Type Department Care Team (Late st Contact Info) Description 10/17/2021 Telephone [facility] [address] [place] [address] Katie Hendrix, DORINDA Social History Tobacco Use Types Packs/Day Years Used Date Smoking Tobacco: Former Cigarettes Q uit: 09/28/1978 Smokeless Tobacco: Never Alcohol Use Standard Drinks/Week Comments Yes 0 (1 standard drink = 0.6 oz pur e alcohol) Comments Unknown Sex and Gender Information Value Date Recorded Sex Assigned at Not on file Legal Sex Female 8:30 AM TAIL EDGER Gender Identity Female 10/06/2021 4:28 PM TAIL EDGER Sexual Orientation Choose not to disclose 2020 4:28 PM TAIL EDGER documented as of this encounter Plan of Treatment Not on file documented as of this encounter Visit Diagnoses Not on filedocumented in this encounter Care Teams Compacting Machine Operator/Tender Relationship Specialty Start Date End Date Devaughn Macias MD PCP - General Family Medicine 01/31/20 01/13/22 Denis Platt MD [address] [place] [address] PCP - General Family Medicine 01/14/22 07/18/23 Gideon Campbell MD 2 [facility] [address] [address] PCP - General Family Medicine 07/19/23 documented as of this encounter
--- OUTSIDE RECORDS SUMMARY | 2024-10-22 14:51 | XMS_ITS | Encounter Summary ---
Author Organization [facility] Address [address] [facility] [facility] [address] [place] [address] Care Team Providers Care Egg Sorter Name Role Phone Devaughn Macias MD Primary Care Provider Reason for Visit * Diagnostic Imaging (Routine) - Closed Specialty Diagnoses / Procedures Referred By Lyndsey t Referred To Contact Diagnoses Left knee pain, unspecified chronicity Procedures XR Knee Left 4 or More Views Victoria Madison PA [address] [place] [address] [address], [place] [address] Phone: tel: fax: Referral ID Status Reason Start Date Expiration Date Visits Re quested Visits Authorized [id number] Closed 10/30/2021 11/29/2022 1 1 Encounter Details Date Type Department Care Team (Latest Contact Info) Description 10/30/2021 7:48 AM DRY DRUG WORKER - 10/30/2021 11:59 PM DRY DRUG WORKER Hospital Encounter [facility] Orthopedics and Sports Medicine [address] [facility] [address] [place] [id number] Discharge Disposition: Discharge to home or self care Social History Tobacco Use Types Packs/Day Years Used Date Smoking Tobacco: Former Cigarettes Q uit: 09/28/1978 Smokeless Tobacco: Never Alcohol Use Standard Drinks/Week Comments Yes 0 (1 standard drink = 0.6 oz pur e alcohol) Comments Unknown Sex and Gender Information Value Date Recorded Sex Assigned at Not on file Legal Sex Female 8:30 AM DRY DRUG WORKER Gender Identity Female 10/06/2021 4:28 PM DRY DRUG WORKER Sexual Orientation Choose not to disclose 2020 4:28 PM DRY DRUG WORKER documented as of this encounter Medications [...] Read Routine (OP Routine) 10/30/2021 8:49 AM DRY DRUG WORKER Primary osteoarthritis of left knee documented in this encounter Results * XR Knee Left 4 or More Views (10/30/2021 8:49 AM DRY DRUG WORKER) Anatomical Region Laterality Modality Lower Extremities, Knee Left Digital Radiography Narrative 10/30/2021 9:37 AM DRY DRUG WORKER Radiographs taken of the left knee today reveal moderate degenerative changes with subchondral sclerosis, osteophyte formation, and diminished joint space. Victoria BUSH IMG XR PROCEDURES Fin al Result documented in this encounter Visit Diagnoses Not on filedocumented in this encounter Care Teams Egg Sorter Relationship Specialty Start Date End Date Devaughn Macias MD PCP - General Family Medicine 01/31/20 01/13/22 documented as of this encounter
--- OUTSIDE RECORDS SUMMARY | 2024-10-22 14:51 | XMS_ITS | Encounter Summary ---
Author Organization [facility] Address [address] [place] [address] Care Team Providers Care Associate Manager Affiliate Marketing Name Role Phone Devaughn Macias MD Primary Care Provider Reason for Referral * Diagnostic Imaging (Routine) - Closed Specialty Diagnoses / Procedures Referred By Contac t Referred To Contact Diagnoses Primary osteoarthritis of left hip Procedures FL Fluoro Guided Injection Hip Left Tawny Yung PA Phone: tel: fax: [address] [phone] Referral ID Status Reason Start Date Expiration Date Visits Re quested Visits Authorized [id number] Closed 10/09/2021 11/08/2022 1 1 APEUTIC RECREATION ASSISTANT Reason for Visit * Diagnostic Imaging (Routine) - Closed Specialty Diagnoses / Procedures Referred By Lyndsey farmer Referred To Contact Diagnoses Primary osteoarthritis of left hip Procedures FL Fluoro Guided Injection Hip Left Tawny Yung PA Phone: tel: fax: [address] [phone] Referral ID Status Reason Start Date Expiration Date Visits Re quested Visits Authorized [id number] Closed 10/09/2021 11/08/2022 1 1 Encounter Details Date Type Department Care Team (Latest Contact Info) Description 10/23/2021 1:58 PM THERAPEUTIC RECREATION ASSISTANT - 10/23/2021 11:59 PM THERAPEUTIC RECREATION ASSISTANT Hospital Encounter [facility] [address] [place] [address] Tawny Yung, RACHELLE [address] [place] [address] Rad, Amh Breast Primary osteoarthritis of left [...] Legal Sex Female 8:30 AM THERAPEUTIC RECREATION ASSISTANT Gender Identity Female 10/06/2021 4:28 PM THERAPEUTIC RECREATION ASSISTANT Sexual Orientation Choose not to disclose 2020 4:28 PM THERAPEUTIC RECREATION ASSISTANT documented as of this encounter Medications at [...] Grant Carlos MD - 10/23/2021 2:15 PM THERAPEUTIC RECREATION ASSISTANT Radiology Brief Post Procedure Note Attending: Dr. Grant Carlos Sedation/Anesthesia: Local Pre-procedure Diagnosis: Left hip OA Post-procedure Diagnosis: Same Procedure Performed: FL FLUORO GUIDED INJECTION HIP LEFT Procedure Findings: Successful Complications: None Estimated Blood Loss: None Specimens: None Condition: Stable Full report to follow. APEUTIC RECREATION ASSISTANT documented in this encounter Plan of Treatment Not on file documented as of this encounter Procedures Procedure Name Priority Date/Time Associated Diagnosis Comments FL FLUORO GUIDED INJECTION HIP LEFT Schedule Routine, Read Routine (OP Routine) 10/23/2021 2:34 PM THERAPEUTIC RECREATION ASSISTANT Primary osteoarthritis of left hip documented in this encounter Results * FL Fluoro Guided Injection Hip Left (10/23/2021 2:34 PM THERAPEUTIC RECREATION ASSISTANT) Anatomical Region Laterality Modality Hip Left Radio Fluoroscop y 10/24/2021 6:25 AM THERAPEUTIC RECREATION ASSISTANT Narrative 10/24/2021 6:27 AM THERAPEUTIC RECREATION ASSISTANT EXAMINATION: ? Left hip ??joint injection under [...] AM T: ??10/24/2021 6:27 AM Report ID: [id number] Reading Location: ??[id number] Procedure Note Grant Carlos MD - 10/24/2021 [...] Grant Carlos M.D. MF: JOHN Report ID: [id number] Reading Location: [place] [address] Tawny BUSH IMG FLUOROSCOPY PROCEDURE S Final [...] 1 dose Contrast Given 10/23/2021 2:17 PM THERAPEUTIC RECREATION ASSISTANT 1 mL lidocaine PF (XYLOCAINE) 10 mg/mL (1 %) preservative free injection 50 mg 50 mg (5 mL), other, Once, On Lisbeth 10/23/21 at 1445, For 1 dose Given 10/23/2021 2:18 PM THERAPEUTIC RECREATION ASSISTANT 5 mL methylPREDNISolone acetate (DEPO-medrol) injection 80 mg 80 mg, intra-articular, Once, On Lisbeth 10/23/21 at 1445, For 1 dose Given 10/23/2021 2:18 PM THERAPEUTIC RECREATION ASSISTANT 80 mg documented in this encounter Care Teams Associate Manager Affiliate Marketing Relationship Specialty Start Date End Date Devaughn Macias MD PCP - General Family Medicine 01/31/20 01/13/22 documented as of this encounter
--- OUTSIDE RECORDS SUMMARY | 2024-10-22 14:51 | XMS_ITS | Encounter Summary ---
Author Organization [facility] Address [address] [facility] [address] [place] [address] Care Team Providers Care Environmental Epidemiologist Name Role Phone Denis Platt MD Primary Care Provide r Reason for Visit * Reason Comments Follow-up Encounter Details Date Type Department Care Team ([facility] Contact Info) Description 03/19/2022 10:30 AM CDT Office Visit [facility] Orthopedics and Sports Medicine [address] [facility] [address] [place] [phone] Herber Knott MD [address] [place] [address] [address] [place] [address] Primary osteoarthritis of left hip (Primary Dx); [...] on file Legal Sex Female 8:30 AM DATA CLERK Gender Identity Female 10/06/2021 4:28 PM DATA CLERK Sexual Orientation Choose not to disclose 2020 4:28 PM DATA CLERK documented as of this encounter Last Filed [...] X-RAYS/STUDIES/LABS severe advanced left hip osteoarthritis with [id number] contact, osteophyte formation, subluxation. Assessment/Plan Quin was [...] examination documented in this encounter Care Teams Environmental Epidemiologist Relationship Specialty Start Date End Date Denis Platt MD [address] [place] [address] PCP - General Family Medicine 01/14/22 07/18/23 documented as of this encounter
--- OUTSIDE RECORDS SUMMARY | 2024-10-22 14:51 | XMS_ITS | Encounter Summary ---
Author Organization [facility] Healthcare Address [address] [place] [address] Care Team Providers Care Childhood Development Teacher Name Role Phone Devaughn Macias MD Primary Care Provider Denis Platt MD Primary Care Provide r Gideon Campbell MD Primary Care Provider [phone] Encounter Details Date Type Department Care Team (Late st Contact Info) Description 10/15/2021 Telephone [facility] [address] [place] [address] Katie Hendrix, DORINDA Social History Tobacco Use Types Packs/Day Years Used Date Smoking Tobacco: Former Cigarettes Q uit: 09/28/1978 Smokeless Tobacco: Never Alcohol Use Standard Drinks/Week Comments Yes 0 (1 standard drink = 0.6 oz pur e alcohol) Comments Unknown Sex and Gender Information Value Date Recorded Sex Assigned at Not on file Legal Sex Female 8:30 AM REEFER ENGINEER Gender Identity Female 10/06/2021 4:28 PM REEFER ENGINEER Sexual Orientation Choose not to disclose 2020 4:28 PM REEFER ENGINEER documented as of this encounter Plan of Treatment Not on file documented as of this encounter Visit Diagnoses Not on filedocumented in this encounter Care Teams Childhood Development Teacher Relationship Specialty Start Date End Date Devaughn Macias MD PCP - General Family Medicine 01/31/20 01/13/22 Denis Platt MD [address] [place] [address] PCP - General Family Medicine 01/14/22 07/18/23 Gideon Campbell MD 2 [facility] [address] [address] PCP - General Family Medicine 07/19/23 documented as of this encounter
--- OUTSIDE RECORDS SUMMARY | 2024-10-22 14:51 | XMS_ITS | Encounter Summary ---
Author Organization [facility] Address [address] [facility] [address] [place] [address] Care Team Providers Care Dyer And Washer Name Role Phone Denis Platt MD Primary Care Provide r Encounter Details Date Type Department Care Team (Late st Contact Info) Description 03/27/2022 Documentation [facility] Orthopedics and Sports Medicine [address] [place] [address] [address] [place] [phone] Lilly Moncada MA Social History Tobacco Use Types Packs/Day Years Used Date Smoking Tobacco: Former Cigarettes Q uit: 09/28/1978 Smokeless Tobacco: Never Alcohol Use Standard Drinks/Week Comments Yes 0 (1 standard drink = 0.6 oz pur e alcohol) Comments Unknown Sex and Gender Information Value Date Recorded Sex Assigned at Not on file Legal Sex Female 8:30 AM JUICE SCALEMAN Gender Identity Female 10/06/2021 4:28 PM JUICE SCALEMAN Sexual Orientation Choose not to disclose 2020 4:28 PM JUICE SCALEMAN documented as of this encounter Progress Notes * Lilly Moncada MA - 03/27/2022 10:24 AM CDT Patient is cleared for LTHA on 04/07/[address] Platt and Dr. Brown documented in this encounter Plan of Treatment Not on file documented as of this encounter Visit Diagnoses Not on filedocumented in this encounter Care Teams Dyer And Washer Relationship Specialty Start Date End Date Denis Platt MD [address] [place] [address] PCP - General Family Medicine 01/14/22 07/18/23 documented as of this encounter
--- OUTSIDE RECORDS SUMMARY | 2024-10-22 14:51 | XMS_ITS | Encounter Summary ---
Author Organization [facility] Address [address] [address] [place] [address] Care Team Providers Care Assembler Equipment Name Role Phone Denis Platt MD Primary Care Provide r Reason for Visit * Reason Comments Atrial Fibrillation Peripheral Artery Disease Hypertension Aortic Stenosis 5 mo f/u Encounter Details Date Type Department Care Team (Latest Contact Info) Description 01/14/2022 11:30 AM CDT Office Visit [facility] Cardiology [address] [facility] [address] [place] [address] Andrade Brown MD [facility] [address] Non-rheumatic aortic stenosis (Primary Dx); assisted current use of anticoagulant therapy; 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 [...] on file Legal Sex Female 8:30 AM INTER FOLD ROLL CUTTER Gender Identity Female 10/06/2021 4:28 PM INTER FOLD ROLL CUTTER Sexual Orientation Choose not to disclose 2020 4:28 PM INTER FOLD ROLL CUTTER documented as of this encounter Last [...] PVI ablation x2 with recent success 3. roasterman (current) use of anticoagulants [Z79.01] No bleeding problems 4. PAD (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/HCC) Mild femoral disease 5. 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 goal <100 6. HTN (hypertension), benign At goal 7.. Mild carotid artery disease 8. Non-rheumatic aortic stenosis Mild: Asymptomatic PLAN/RECOMMENDATIONS EKG today because of her atrial fibrillation history Standing order for INR to be sent to [facility] She will likely need a stress test [...] clinically indicated. Low-salt diet Andrade Brown MD, [facility] documented in this encounter Miscellaneous Notes * [...] Visit Diagnoses Diagnosis Non-rheumatic aortic stenosis- Primary assisted current use of anticoagulant therapy 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 goal <100 Other and unspecified hyperlipidemia Essential hypertension Unspecified essential hypertension documented in this encounter Care Teams Assembler Equipment Relationship Specialty Start Date End Date Denis Platt MD [address] [place], [place] [id number] PCP - General Family Medicine 01/14/22 07/18/23 documented as of this encounter
--- OUTSIDE RECORDS SUMMARY | 2024-10-22 14:51 | XMS_ITS | Encounter Summary ---
Author Organization [facility] Address [address] [facility] [address] [place] [address] Care Team Providers Care Trade Recruiter Name Role Phone Denis Platt MD Primary Care Provide r Encounter Details Date Type Department Care Team (Late st Contact Info) Description 01/15/2022 Telephone [facility] Orthopedics and Sports Medicine [address] [facility] [address] [place] [address] Herber Knott MD [address] [place] [address] [address] [place] [address] Social History Tobacco Use Types Packs/Day Years Used Date Smoking Tobacco: Former Cigarettes Q uit: 09/28/1978 Smokeless Tobacco: Never Alcohol Use Standard Drinks/Week Comments Yes 0 (1 standard drink = 0.6 oz pur e alcohol) Comments Unknown Sex and Gender Information Value Date Recorded Sex Assigned at Not on file Legal Sex Female 8:30 AM COMMODITY MANAGER Gender Identity Female 10/06/2021 4:28 PM COMMODITY MANAGER Sexual Orientation Choose not to disclose 2020 4:28 PM COMMODITY MANAGER documented as of this encounter Miscellaneous [...] on filedocumented in this encounter Care Teams Trade Recruiter Relationship Specialty Start Date End Date Denis Platt MD [address] [place] [address] PCP - General Family Medicine 01/14/22 07/18/23 documented as of this encounter
--- OUTSIDE RECORDS SUMMARY | 2024-10-22 14:51 | XMS_ITS | Encounter Summary ---
Author Organization [facility] Address [address] [facility] [address] [place] [address] Care Team Providers Care Rigger Up Name Role Phone Denis Platt MD Primary Care Provide r Reason for Visit * Diagnostic Imaging (Routine) - Closed Specialty Diagnoses / Procedures Referred By Lyndsey farmer Referred To Contact Diagnoses 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 Procedures XR Hip Left 2 or 3 Views Herber Knott MD Phone: tel: [facility] Referral ID Status Reason Start Date Expiration Date Visits Re quested Visits Authorized [id number] Closed 05/21/2022 06/20/2023 1 1 Encounter Details Date Type Department Care Team (Latest Contact Info) Description 05/21/2022 7:45 AM CDT - 05/21/2022 11:59 PM CDT Hospital Encounter [facility] Orthopedics and Sports Medicine [address] [place] [address] [place] [phone] Discharge Disposition: Discharge to home or self [...] file Legal Sex Female 8:30 AM SENIOR RESERVOIR ENGINEER Gender Identity Female 10/06/2021 4:28 PM SENIOR RESERVOIR ENGINEER Sexual Orientation Choose not to disclose 2020 4:28 PM SENIOR RESERVOIR ENGINEER documented as of this encounter Medications [...] on filedocumented in this encounter Care Teams Rigger Up Relationship Specialty Start Date End Date Denis Platt MD [address] [place] [address] PCP - General Family Medicine 01/14/22 07/18/23 documented as of this encounter
--- OUTSIDE RECORDS SUMMARY | 2024-10-22 14:51 | XMS_ITS | Encounter Summary ---
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
--- OUTSIDE RECORDS SUMMARY | 2024-10-22 14:51 | XMS_ITS | Encounter Summary ---
Author Organization [facility] Address [address] [facility] [address] [place] [address] Care Team Providers Care Digester Cook Name Role Phone Devaughn Macias MD Primary Care Provider Encounter Details Date Type Department Care Team (Late st Contact Info) Description 10/16/2021 Telephone [facility] Cardiology [address] [facility] [address] [place] [address] Andrade Brown MD [facility] [place] [id number] Social History Tobacco Use Types Packs/Day Years Used Date Smoking Tobacco: Former Cigarettes Q uit: 09/28/1978 Smokeless Tobacco: Never Alcohol Use Standard Drinks/Week Comments Yes 0 (1 standard drink = 0.6 oz pur e alcohol) Comments Unknown Sex and Gender Information Value Date Recorded Sex Assigned at Not on file Legal Sex Female 8:30 AM COUNCILPERSON Gender Identity Female 10/06/2021 4:28 PM COUNCILPERSON Sexual Orientation Choose not to disclose 2020 4:28 PM COUNCILPERSON documented as of this encounter Miscellaneous Notes * Telephone Encounter - Rosy White RN - 10/16/2021 1:32 PM CST No significant carotid disease bilateral. Spoke w/ pt and reviewed results above per MAF. Pt verbalized understanding. KK/VW CILPERSON documented in this encounter Plan of Treatment Not on file documented as of this encounter Visit Diagnoses Not on filedocumented in this encounter Care Teams Digester Cook Relationship Specialty Start Date End Date Devaughn Macias MD PCP - General Family Medicine 01/31/20 01/13/22 documented as of this encounter
--- OUTSIDE RECORDS SUMMARY | 2024-10-22 14:51 | XMS_ITS | Encounter Summary ---
Author Organization [facility] Address [address] [facility] [address] [place] [address] Care Team Providers Care Traffic Division Commanding Officer Name Role Phone Denis Platt MD Primary Care Provide r Encounter Details Date Type Department Care Team (Latest Contact Info) Description 03/06/2022 Anticoagulation Visit [facility] Cardiology [address] [place] [address] Rachel Zhao RN Atrial fibrillation, [...] on file Legal Sex Female 8:30 AM FIRE SUPPRESSION CAPTAIN Gender Identity Female 10/06/2021 4:28 PM FIRE SUPPRESSION CAPTAIN Sexual Orientation Choose not to disclose 2020 4:28 PM FIRE SUPPRESSION CAPTAIN documented as of this encounter Plan [...] therapy documented in this encounter Care Teams Traffic Division Commanding Officer Relationship Specialty Start Date End Date Denis Platt MD [address] [place] [address] PCP - General Family Medicine 01/14/22 07/18/23 documented as of this encounter
--- OUTSIDE RECORDS SUMMARY | 2024-10-22 14:51 | XMS_ITS | Encounter Summary ---
Author Organization [facility] Address [address] [facility] [address] [place] [address] Care Team Providers Care Playground Attendant Name Role Phone Denis Platt MD Primary Care Provide r Reason for Visit * Diagnostic Imaging (Routine) - Closed Specialty Diagnoses / Procedures Referred By Lyndsey farmer Referred To Contact Diagnoses Left hip pain Procedures XR Hip Left 2 or 3 Views Kami Lyons PA Phone: tel: fax: [facility] Referral ID Status Reason Start Date Expiration Date Visits Re quested Visits Authorized [id number] Closed 02/26/2022 03/28/2023 1 1 Encounter Details Date Type Department Care Team (Latest Contact Info) Description 02/26/2022 8:05 AM CDT - 02/26/2022 11:59 PM CDT Hospital Encounter [facility] Orthopedics and Sports Medicine [address] [place] [address] [address] [address] Discharge Disposition: Discharge to home [...] on file Legal Sex Female 8:30 AM OPERATING ROOM TECH Gender Identity Female 10/06/2021 4:28 PM OPERATING ROOM TECH Sexual Orientation Choose not to disclose 2020 4:28 PM OPERATING ROOM TECH documented as of this encounter Medications at [...] on filedocumented in this encounter Care Teams Playground Attendant Relationship Specialty Start Date End Date Denis Platt MD [address] [place] [address] PCP - General Family Medicine 01/14/22 07/18/23 documented as of this encounter
--- OUTSIDE RECORDS SUMMARY | 2024-10-22 14:51 | XMS_ITS | Encounter Summary ---
Author Organization [facility] Address [address] [facility] [address] [place] [address] Care Team Providers Care Chemists Name Role Phone Denis Platt MD Primary Care Provide r Encounter Details Date Type Department Care Team (Late st Contact Info) Description 03/19/[address] [facility] Orthopedics and Sports Medicine [address] [facility] [address], [place] [address] Lilly Moncada MA Social History Tobacco Use Types Packs/Day Years Used Date Smoking Tobacco: Former Cigarettes Q uit: 09/28/1978 Smokeless Tobacco: Never Alcohol Use Standard Drinks/Week Comments Yes 0 (1 standard drink = 0.6 oz pur e alcohol) Comments Unknown Sex and Gender Information Value Date Recorded Sex Assigned at Not on file Legal Sex Female 8:30 AM DIRECTOR HUMAN SERVICES Gender Identity Female 10/06/2021 4:28 PM DIRECTOR HUMAN SERVICES Sexual Orientation Choose not to disclose 2020 4:28 PM DIRECTOR HUMAN SERVICES documented as of this encounter Miscellaneous Notes [...] on filedocumented in this encounter Care Teams Chemists Relationship Specialty Start Date End Date Denis Platt MD [address] [place] [address] PCP - General Family Medicine 01/14/22 07/18/23 documented as of this encounter
--- OUTSIDE RECORDS SUMMARY | 2024-10-22 14:51 | XMS_ITS | Encounter Summary ---
Author Organization [facility] Address [address] [facility] [address] [place] [address] Care Team Providers Care Integrated Specialist Name Role Phone Denis Platt MD Primary Care Provide r Reason for Referral * Diagnostic Imaging (Routine) - Closed Specialty Diagnoses / Procedures Referred By Lyndsey farmer Referred To Contact Diagnoses 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 Procedures XR Hip Left 2 or 3 Views Herber Knott MD Phone: tel: [facility] Referral ID Status Reason Start Date Expiration Date Visits Re quested Visits Authorized [id number] Closed 05/21/2022 06/20/2023 1 1 Reason for Visit * Reason Comments Post-op Encounter Details Date Type Department Care Team ([facility] st Contact Info) Description 05/21/2022 9:15 AM CDT Office Visit [facility] Orthopedics and Sports Medicine 4 [facility] [address] [place] [address] Herber Knott MD [address] [place] [address] [address] [place] [address] Aftercare following left hip joint [...] file Legal Sex Female 8:30 AM METER SHOP SUPERVISOR Gender Identity Female 10/06/2021 4:28 PM METER SHOP SUPERVISOR Sexual Orientation Choose not to disclose 2020 4:28 PM METER SHOP SUPERVISOR documented as of this encounter Last [...] joint documented in this encounter Care Teams Integrated Specialist Relationship Specialty Start Date End Date Denis Platt MD [address] [place] [address] PCP - General Family Medicine 01/14/22 07/18/23 documented as of this encounter
--- OUTSIDE RECORDS SUMMARY | 2024-10-22 14:51 | XMS_ITS | Encounter Summary ---
Author Organization [facility] Address [address] [facility] [address] [place] [address] Care Team Providers Care Knowledge Manager Name Role Phone Devaughn Macias MD Primary Care Provider Encounter Details Date Type Department Care Team (Latest Contact Info) Description 01/08/2022 Anticoagulation Visit [facility] Cardiology [address] [place] [address] Jacque Hitchcock RN Atrial fibrillation, unspecified type (HCC) (Primary Dx); USP current use of anticoagulant therapy Social History Tobacco Use Types Packs/Day Years Used Date Smoking Tobacco: Former Cigarettes Q uit: 09/28/1978 Smokeless Tobacco: Never Alcohol Use Standard Drinks/Week Comments Yes 0 (1 standard drink = 0.6 oz pur e alcohol) Comments Unknown Sex and Gender Information Value Date Recorded Sex Assigned at Not on file Legal Sex Female 8:30 AM LEAD DATA ARCHITECT Gender Identity Female 10/06/2021 4:28 PM LEAD DATA ARCHITECT Sexual Orientation Choose not to disclose 2020 4:28 PM LEAD DATA ARCHITECT documented as of this encounter Plan [...] therapy documented in this encounter Care Teams Knowledge Manager Relationship Specialty Start Date End Date Devaughn Macias MD PCP - General Family Medicine 01/31/20 01/13/22 documented as of this encounter
--- OUTSIDE RECORDS SUMMARY | 2024-10-22 14:51 | XMS_ITS | Encounter Summary ---
Author Organization [facility] Address [address] [facility] [address] [place] [address] Care Team Providers Care Script Supervisor Name Role Phone Denis Platt MD Primary Care Provide r Encounter Details Date Type Department Care Team (Late st Contact Info) Description 04/24/2022 Telephone [facility] Cardiology [address] [facility] [address] [place] [address] Andrade Brown MD [facility] [place] [id number] Social History Tobacco Use Types Packs/Day Years Used Date Smoking Tobacco: Former Cigarettes Q uit: 09/28/1978 Smokeless Tobacco: Never Alcohol Use Standard Drinks/Week Comments Yes 0 (1 standard drink = 0.6 oz pur e alcohol) Comments Unknown Sex and Gender Information Value Date Recorded Sex Assigned at Not on file Legal Sex Female 8:30 AM MERCHANDISE TEAM MANAGER Gender Identity Female 10/06/2021 4:28 PM MERCHANDISE TEAM MANAGER Sexual Orientation Choose not to disclose 2020 4:28 PM MERCHANDISE TEAM MANAGER documented as of this encounter Miscellaneous [...] INR results from 04/05 and 04/24 to 8120,Thank you Contact:[phone] documented in this encounter Plan of Treatment Not on file documented as of this encounter Visit Diagnoses Not on filedocumented in this encounter Care Teams Script Supervisor Relationship Specialty Start Date End Date Denis Platt MD [address] [place] [address] PCP - General Family Medicine 01/14/22 07/18/23 documented as of this encounter
--- OUTSIDE RECORDS SUMMARY | 2024-10-22 14:51 | XMS_ITS | Encounter Summary ---
Author Organization [facility] Address [address] [place] [address] Care Team Providers Care Nail Feeder Name Role Phone Denis Platt MD Primary Care Provide r Encounter Details Date Type Department Care Team (Late st Contact Info) Description 01/14/2022 Telephone [facility] Cardiology [address] [facility] [address] [place] [address] Andrade Brown MD [facility] [place] [id number] Social History Tobacco Use Types Packs/Day Years Used Date Smoking Tobacco: Former Cigarettes Q uit: 09/28/1978 Smokeless Tobacco: Never Alcohol Use Standard Drinks/Week Comments Yes 0 (1 standard drink = 0.6 oz pur e alcohol) Comments Unknown Sex and Gender Information Value Date Recorded Sex Assigned at Not on file Legal Sex Female 8:30 AM FAST FOOD SERVER Gender Identity Female 10/06/2021 4:28 PM FAST FOOD SERVER Sexual Orientation Choose not to disclose 2020 4:28 PM FAST FOOD SERVER documented as of this encounter Miscellaneous Notes [...] monitoring documented in this encounter Care Teams Nail Feeder Relationship Specialty Start Date End Date Denis Platt MD [address] [place] [address] PCP - General Family Medicine 01/14/22 07/18/23 documented as of this encounter
--- OUTSIDE RECORDS SUMMARY | 2024-10-22 14:51 | XMS_ITS | Encounter Summary ---
Author Organization [facility] Address [address] [facility] [address] [place] [address] Care Team Providers Care Finish Machine Tender Name Role Phone Denis Platt MD Primary Care Provide r Encounter Details Date Type Department Care Team (Late st Contact Info) Description 03/25/2022 Orders Only [facility] Orthopedics and Sports Medicine 4 [facility] [address] [place] [address] Herber Knott MD [address] [place] [address] [address] [place], [place] [id number] Primary osteoarthritis of left hip (Primary Dx); [...] file Legal Sex Female 8:30 AM GAS APPLIANCE SERVICER HELPER Gender Identity Female 10/06/2021 4:28 PM GAS APPLIANCE SERVICER HELPER Sexual Orientation Choose not to disclose 2020 4:28 PM GAS APPLIANCE SERVICER HELPER documented as of this encounter Plan [...] examination documented in this encounter Care Teams Finish Machine Tender Relationship Specialty Start Date End Date Denis Platt MD [address] [place] [address] PCP - General Family Medicine 01/14/22 07/18/23 documented as of this encounter
--- OUTSIDE RECORDS SUMMARY | 2024-10-22 14:51 | XMS_ITS | Encounter Summary ---
Author Organization [facility] Address [address] [facility] [address] [place] [address] Care Team Providers Care Senior Sql Server Developer Name Role Phone Denis Platt MD [...] Studies Ciarra Fitzpatrick MD [address] [place] [address] [place] [address] Phone: tel: fax: [facility] Referral ID Status Reason Start Date Expiration Date Visits Re quested Visits Authorized [id number] Closed 02/18/2022 03/20/2023 1 1 Encounter Details Date Type Department Care Team (Late Contact Info) Description 02/17/2022 Telephone [facility] Cardiology [address] [facility] [address] [place] [address] Ciarra Fitzpatrick MD [address] [place] [address] Social History Tobacco Use Types Packs/Day Years Used Date Smoking Tobacco: Former Cigarettes Q uit: 09/28/1978 Smokeless Tobacco: Never Alcohol Use Standard Drinks/Week Comments Yes 0 (1 standard drink = 0.6 oz pur e alcohol) Comments Unknown Sex and Gender Information Value Date Recorded Sex Assigned at Not on file Legal Sex Female 8:30 AM ELDERLY COMPANION Gender Identity Female 10/06/2021 4:28 PM ELDERLY COMPANION Sexual Orientation Choose not to disclose 2020 4:28 PM ELDERLY COMPANION documented as of this encounter Miscellaneous Notes [...] 02/17/2022 2:15 PM CDT Will forward to [facility]. Please advise, thank you! * Telephone Encounter - Elif Christina - 02/17/2022 1:52 PM CDT Pt states [facility] recommends pt gets a stress test [...] [facility] Cardiology [address] [facility] [address], [place] [address] [address] [facility] [address], [place] [address] P:[phone] P:[phone] MPI Imaging Report Patient Name: QUIN HUERTADoug : 1935 Study Date: 02/26/2022 9:55:19 AM Gender: F Tech: [facility] Location: [place] Ref.Provider: CIARRA FITZPATRICK Height(Cm): 165.1 BSA: Weight(Kg): 84.8 BMI: 31.11Order Provider: CIARRA FITZPATRICK - Physician: Referring Physician: Dr. Platt. HCG Physician: Adalberto Fitzpatrick M.D. Interpreting Physician: Adalberto Ftizpatrick M.D. Stress Supervision: Adalberto Fitzpatrick M.D. Procedures: [...] [facility] Cardiology [address] [facility] [address], [place] [address] [address] [facility] [address], [place] [address] P:[phone] P:[phone] MPI Imaging Report Patient Name: QUIN HUERTA Rickey ID: [id number] : [id number] Date: 02/26/2022 9:55:19 AM Gender: FAccession #: [id number] Tech: NORMA, MTLocation: [place] Ref.Provider: Shanell FITZPATRICKight(Cm): 165.1 BSA: Weight(Kg): 84.8 [...] hyperlipidemia documented in this encounter Care Teams Senior Sql Server Developer Relationship Specialty Start Date End Date Denis Platt MD [address] [place], [place] [id number] PCP - General Family Medicine 01/14/22 07/18/23 documented as of this encounter
--- OUTSIDE RECORDS SUMMARY | 2024-10-22 14:51 | XMS_ITS | Encounter Summary ---
Author Organization [facility] Address [address] [place] [address] Care Team Providers Care Hand Expansion Envelope Maker Name Role Phone Devaughn Macias MD Primary Care Provider Encounter Details Date Type Department Care Team (Late st Contact Info) Description 10/20/2021 Telephone [facility] [address] [place] [address] Katie Hendrix RN Social History Tobacco Use Types Packs/Day Years Used Date Smoking Tobacco: Former Cigarettes Q uit: 09/28/1978 Smokeless Tobacco: Never Alcohol Use Standard Drinks/Week Comments Yes 0 (1 standard drink = 0.6 oz pur e alcohol) Comments Unknown Sex and Gender Information Value Date Recorded Sex Assigned at Not on file Legal Sex Female 8:30 AM KARATE BLACK BELT Gender Identity Female 10/06/2021 4:28 PM KARATE BLACK BELT Sexual Orientation Choose not to disclose 2020 4:28 PM KARATE BLACK BELT documented as of this encounter Miscellaneous Notes * Telephone Encounter - Katie Hendrix RN - 10/20/2021 11:07 AM KARATE BLACK BELT Patient called to let IR know that she was instructed to hold blood thinners for hip injection on 10/23/21. TE BLACK BELT documented in this encounter Plan of Treatment Not on file documented as of this encounter Visit Diagnoses Not on filedocumented in this encounter Care Teams Hand Expansion Envelope Maker Relationship Specialty Start Date End Date Devaughn Macias MD PCP - General Family Medicine 01/31/20 01/13/22 documented as of this encounter
--- OUTSIDE RECORDS SUMMARY | 2024-10-22 14:51 | XMS_ITS | Encounter Summary ---
Author Organization [facility] Address [address] [facility] [address] [place] [address] Care Team Providers Care Clearance Cutter Name Role Phone Denis Platt MD Primary Care Provide r Reason for Visit * Diagnostic Imaging (Routine) - Closed Specialty Diagnoses / Procedures Referred By Lyndsey farmer Referred To Contact Diagnoses Preoperative clearance Paroxysmal atrial fibrillation (CMS/HCC) (HCC) Essential hypertension PAD (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) (HCC) 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 goal <100 Procedures NM MPI SPECT (Rest and/or Stress) Multiple Studies Andrade Fitzpatrick MD [facility] [address] Phone: tel: fax: [facility] Referral ID Status Reason Start Date Expiration Date Visits Re quested Visits Authorized [id number] Closed 02/18/2022 03/20/2023 1 1 Encounter Details Date Type Department Care Team (Latest Contact Info) Description 02/26/2022 10:15 AM CDT Ancillary Procedure [facility] Cardiology [address] [facility] [address] [place] [address] Preoperative clearance; Paroxysmal atrial fibrillation [...] file Legal Sex Female 8:30 AM CUT OFF SAW SET UP OPERATOR Gender Identity Female 10/06/2021 4:28 PM CUT OFF SAW SET UP OPERATOR Sexual Orientation Choose not to disclose 2020 4:28 PM CUT OFF SAW SET UP OPERATOR documented as of this encounter Plan [...] AM CDT Narrative 02/26/2022 1:09 PM CDT [facility] Cardiology [address] [facility] [address], [place] [address] [place] [address] [address] [id number] P:[phone] P:[phone] MPI Imaging Report Patient Name: QUIN HUERTADoug : [birth year] Study Date: 02/26/2022 9:55:19 AM Gender: F Tech: [facility] Location: [place] Ref.Provider: ANDRADE FITZPATRICK Height(Cm): 165.1 BSA: Weight(Kg): [...] Procedure Note Andrade Fitzpatrick MD - 02/26/2022 [facility] Cardiology [address] [facility] [address], [place] [address] [address], [place] [address] P:[phone] P:[phone] MPI Imaging Report Patient Name: QUIN HUERTA Nydiant ID: [id number] : [id number] Date: 02/26/2022 9:55:19 AM Gender: FAccession #: [id number] Tech: LE, CNMTLocation: [place] Ref.Provider: Shanell FITZPATRICKight(Cm): 165.1 BSA: Weight(Kg): 84.8 [...] millicuries documented in this encounter Care Teams Clearance Cutter Relationship Specialty Start Date End Date Denis Platt MD [address] [place] [address] PCP - General Family Medicine 01/14/22 07/18/23 documented as of this encounter
--- OUTSIDE RECORDS SUMMARY | 2024-10-22 14:51 | XMS_ITS | Encounter Summary ---
Author Organization [facility] Address [address] [facility] [address] [place] [address] Care Team Providers Care Perforator Name Role Phone Devaughn Macias MD Primary Care Provider Encounter Details Date Type Department Care Team (Latest Contact Info) Description 12/03/2021 Anticoagulation Visit [facility] Cardiology [address] [place] [address] Jacque Hitchcock RN Atrial fibrillation, [...] on file Legal Sex Female 8:30 AM BILINGUAL INTERPRETER Gender Identity Female 10/06/2021 4:28 PM BILINGUAL INTERPRETER Sexual Orientation Choose not to disclose 2020 4:28 PM BILINGUAL INTERPRETER documented as of this encounter Plan of [...] therapy documented in this encounter Care Teams Perforator Relationship Specialty Start Date End Date Devaughn Macias MD PCP - General Family Medicine 01/31/20 01/13/22 documented as of this encounter
--- OUTSIDE RECORDS SUMMARY | 2024-10-22 14:51 | XMS_ITS | Encounter Summary ---
Author Organization [facility] Address [address] [facility] [address] [place] [address] Care Team Providers Care Qm Nurse Name Role Phone Denis Platt MD Primary Care Provide r Encounter Details Date Type Department Care Team (Latest Contact Info) Description 02/19/2022 Anticoagulation Visit [facility] Cardiology [address] [place] [address] Jacque Hitchcock RN Atrial fibrillation, [...] file Legal Sex Female 8:30 AM CALL OR CONTACT CENTRE COACH Gender Identity Female 10/06/2021 4:28 PM CALL OR CONTACT CENTRE COACH Sexual Orientation Choose not to disclose 2020 4:28 PM CALL OR CONTACT CENTRE COACH documented as of this encounter Plan [...] therapy documented in this encounter Care Teams Qm Nurse Relationship Specialty Start Date End Date Denis Platt MD [address] [place] [address] PCP - General Family Medicine 01/14/22 07/18/23 documented as of this encounter
--- OUTSIDE RECORDS SUMMARY | 2024-10-22 14:52 | XMS_ITS | Encounter Summary ---
Author Organization [facility] Address [address] [facility] [address] [place] [address] Care Team Providers Care Die Machine Operator Name Role Phone Devaughn Macias MD Primary Care Provider Denis Platt MD Primary Care Provide r Encounter Details Date Type Department Care Team (Late st Contact Info) Description 04/02/2021 Orders Only [facility] [address] [place] [address] Scanning, Provider Social History Tobacco Use Types Packs/Day Years Used Date Smoking Tobacco: Former Cigarettes Q uit: 09/28/1978 Smokeless Tobacco: Never Alcohol Use Standard Drinks/Week Comments Yes 0 (1 standard drink = 0.6 oz pur e alcohol) Comments Unknown Sex and Gender Information Value Date Recorded Sex Assigned at Not on file Legal Sex Female 8:30 AM INJURY PREVENTION COORDINATOR Gender Identity Female 10/06/2021 4:28 PM INJURY PREVENTION COORDINATOR Sexual Orientation Choose not to disclose 2020 4:28 PM INJURY PREVENTION COORDINATOR documented as of this encounter Plan [...] on filedocumented in this encounter Care Teams Die Machine Operator Relationship Specialty Start Date End Date Devaughn Macias MD PCP - General Family Medicine 01/31/20 01/13/22 Denis Platt MD [address] [place] [address] PCP - General Family Medicine 01/14/22 07/18/23 documented as of this encounter
--- OUTSIDE RECORDS SUMMARY | 2024-10-22 14:52 | XMS_ITS | Encounter Summary ---
Author Organization [facility] Address [address] [facility] [address] [place] [address] Care Team Providers Care Account Resolution Expert Name Role Phone Devaughn Macias MD Primary Care Provider Encounter Details Date Type Department Care Team (Latest Contact Info) Description 08/28/2021 Anticoagulation Visit [facility] Cardiology [address] [place] [address] Jacque Hitchcock RN Atrial fibrillation, [...] on file Legal Sex Female 8:30 AM EMBEDDED SOFTWARE MANAGER Gender Identity Female 10/06/2021 4:28 PM EMBEDDED SOFTWARE MANAGER Sexual Orientation Choose not to disclose 2020 4:28 PM EMBEDDED SOFTWARE MANAGER documented as of this encounter Plan [...] therapy documented in this encounter Care Teams Account Resolution Expert Relationship Specialty Start Date End Date Devaughn Macias MD PCP - General Family Medicine 01/31/20 01/13/22 documented as of this encounter
--- OUTSIDE RECORDS SUMMARY | 2024-10-22 14:52 | XMS_ITS | Encounter Summary ---
Author Organization [facility] Address [address] [facility] [address] [place] [address] Care Team Providers Care Associate Professor Of Engineering Name Role Phone Devaughn Macias MD Primary Care Provider Encounter Details Date Type Department Care Team (Latest Contact Info) Description 07/16/2021 Anticoagulation Visit [facility] Cardiology [address] [place] [address] Rachel Zhao RN Atrial fibrillation, [...] on file Legal Sex Female 8:30 AM TRAVELING ELECTRICIAN Gender Identity Female 10/06/2021 4:28 PM TRAVELING ELECTRICIAN Sexual Orientation Choose not to disclose 2020 4:28 PM TRAVELING ELECTRICIAN documented as of this encounter Plan of [...] therapy documented in this encounter Care Teams Associate Professor Of Engineering Relationship Specialty Start Date End Date Devaughn Macias MD PCP - General Family Medicine 01/31/20 01/13/22 documented as of this encounter
--- OUTSIDE RECORDS SUMMARY | 2024-10-22 14:52 | XMS_ITS | Encounter Summary ---
Author Organization [facility] Address [address] [facility] [address] [place] [address] Care Team Providers Care Nodulizer Name Role Phone Devaughn Macias MD Primary Care Provider Encounter Details Date Type Department Care Team (Latest Contact Info) Description 02/05/2021 Anticoagulation Visit [facility] Cardiology [address] [place] [address] Rachel Zhao RN Atrial fibrillation, [...] on file Legal Sex Female 8:30 AM DRUM SANDER SETTER Gender Identity Female 10/06/2021 4:28 PM DRUM SANDER SETTER Sexual Orientation Choose not to disclose 2020 4:28 PM DRUM SANDER SETTER documented as of this encounter Plan of [...] therapy documented in this encounter Care Teams Nodulizer Relationship Specialty Start Date End Date Devaughn Macias MD PCP - General Family Medicine 01/31/20 01/13/22 documented as of this encounter
--- OUTSIDE RECORDS SUMMARY | 2024-10-22 14:52 | XMS_ITS | Encounter Summary ---
Author Organization [facility] Address [address] [place] [address] Care Team Providers Care Secondary History Teacher Name Role Phone Devaughn Macias MD Primary Care Provider Encounter Details Date Type Department Care Team (Latest Contact Info) Description 08/28/[address] 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 Social History Tobacco Use Types Packs/Day Years Used Date Smoking Tobacco: Former Cigarettes Q uit: 09/28/1978 Smokeless Tobacco: Never Alcohol Use Standard Drinks/Week Comments Yes 0 (1 standard drink = 0.6 oz pur e alcohol) Comments Unknown Sex and Gender Information Value Date Recorded Sex Assigned at Not on file Legal Sex Female 8:30 AM STOREROOM ATTENDANT Gender Identity Female 10/06/2021 4:28 PM STOREROOM ATTENDANT Sexual Orientation Choose not to disclose 2020 4:28 PM STOREROOM ATTENDANT documented as of this encounter Plan of [...] Paroxysmal atrial fibrillation (CMS/HCC) (HCC) Atrial fibrillation shelter current use of anticoagulant therapy documented in this encounter Care Teams Secondary History Teacher Relationship Specialty Start Date End Date Devaughn Macias MD PCP - General Family Medicine 01/31/20 01/13/22 documented as of this encounter
--- OUTSIDE RECORDS SUMMARY | 2024-10-22 14:52 | XMS_ITS | Encounter Summary ---
Author Organization [facility] Address [address] [place] [address] Care Team Providers Care Salesperson Driver Name Role Phone Devaughn Macias MD Primary Care Provider Encounter Details Date Type Department Care Team (Late st Contact Info) Description 08/20/2021 Orders Only [facility] Cardiology [address] [place] [phone] ProviderPeggy MD [address] [place], [place] [id number] Social History Tobacco Use Types Packs/Day Years Used Date Smoking Tobacco: Former Cigarettes Q uit: 09/28/1978 Smokeless Tobacco: Never Alcohol Use Standard Drinks/Week Comments Yes 0 (1 standard drink = 0.6 oz pur e alcohol) Comments Unknown Sex and Gender Information Value Date Recorded Sex Assigned at Not on file Legal Sex Female 8:30 AM EDUCATIONAL PROGRAM ASSISTANT Gender Identity Female 10/06/2021 4:28 PM EDUCATIONAL PROGRAM ASSISTANT Sexual Orientation Choose not to disclose 2020 4:28 PM EDUCATIONAL PROGRAM ASSISTANT documented as of this encounter Plan [...] filedocumented in this encounter Care Teams Salesperson Driver Relationship Specialty Start Date End Date Devaughn Macias MD PCP - General Family Medicine 01/31/20 01/13/22 documented as of this encounter
--- OUTSIDE RECORDS SUMMARY | 2024-10-22 14:52 | XMS_ITS | Encounter Summary ---
Author Organization [facility] Address [address] [place] [address] Care Team Providers Care Instructor Technical Training Name Role Phone Devaughn Macias MD Primary Care Provider Reason for Referral * Cardiology (Routine) - Closed Specialty Diagnoses / Procedures Referred By Contac t Referred To Contact Diagnoses History of COVID-19 Paroxysmal atrial fibrillation (CMS/HCC) (HCC) HTN (hypertension), benign Procedures Transthoracic Echo Complete W Doppler/CF Ciarra Fitzpatrick MD [address] [facility] [address] [place] [address] Phone: tel: fax: [facility] Referral ID Status Reason Start Date Expiration Date Visits Re quested Visits Authorized [id number] Closed 02/12/2021 03/14/2022 1 1 Reason for Visit * Reason Comments Atrial Fibrillation Carotid Artery Disease Hypertension 6 mo f/u Encounter Details Date Type Department Care Team (Latest Contact Info) Description 02/12/2021 10:15 AM CDT Office Visit [facility] Cardiology [address] [place] [address] Ciarra Fitzpatrick MD [address] [place] [address] History of COVID-19 (Primary Dx); senior living current use of anticoagulant therapy; Paroxysmal atrial [...] file Legal Sex Female 8:30 AM TEAM PRIMARY CARE PHYSICIAN Gender Identity Female 10/06/2021 4:28 PM TEAM PRIMARY CARE PHYSICIAN Sexual Orientation Choose not to disclose 2020 4:28 PM TEAM PRIMARY CARE PHYSICIAN documented as of this encounter Last [...] PVI ablation x2 with recent success 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 Low-salt diet Ciarra Fitzpatrick MD, [facility] documented in this encounter Plan of Treatment Not on file documented as of this encounter Results * TRANSTHORACIC ECHO (TTE) COMPLETE W DOPPLER/CF WO CONTRAST (04/02/2021 9:59 AM CDT) Anatomical Region Laterality Modality Ultrasound 04/02/2021 8:42 AM CDT Narrative 04/02/2021 12:28 PM CDT [facility] Cardiology [address] [facility] [address], [place] [address] [address], [place] [address] P:[phone] P:[phone] Echocardiographic Report Patient Name: QUIN HUERTA : 1935 Study Date: 04/02/2021 8:42:16 AM Gender: F Tech: Location: [place] Ref.Provider: CIARRA FITZPATRICK Height(Cm): 165 BSA: 1.94 [...] Findings: Interpretation Site: Exam was interpreted at [facility]. Left Ventricle: Normal left ventricular systolic [...] Procedure Note Prieto Rowell MD - 04/02/2021 [facility] Cardiology [address], [place] [address] [address], [place] [address] P:[phone] P:[phone] Echocardiographic Report Patient Name: QUIN HUERTAPatient ID: [id number] : [id number] Date: 04/02/2021 8:42:16 AM Gender: FAccession #: [id number] Tech: GMLocation: [place] Ref.Provider: CIARRA FITZPATRICKHeight(Cm): 165 BSA: 1.94Weight(Kg): 86.64 [...] 0.40 - 0.80 ] m/s MV Decel [id number] [ 150 - 200 ] msec PV Peak Vel1.38 [ 0.40 - 0.80 ] m/s TR Peak Vel2.75 [ 0.40 - 0.80 ] m/s TR Peak PG 30mmHg RVSP38.00 mmHg E'0.09 E/E' 10 Findings: Interpretation Site: Exam was interpreted at [facility]. 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
--- OUTSIDE RECORDS SUMMARY | 2024-10-22 14:52 | XMS_ITS | Encounter Summary ---
Author Organization [facility] Address [address] [place] [address] Care Team Providers Care Laboratory Mechanic Helper Name Role Phone Devaughn Macias MD Primary Care Provider Encounter Details Date Type Department Care Team (Latest Contact Info) Description 12/05/2020 Anticoagulation Visit [facility] Cardiology [address] [place] [address] Rosy White RN Atrial fibrillation, unspecified type (CMS/HCC); prison current use of anticoagulant therapy Social History Tobacco Use Types Packs/Day Years Used Date Smoking Tobacco: Former Cigarettes Q uit: 09/28/1978 Smokeless Tobacco: Never Alcohol Use Standard Drinks/Week Comments Yes 0 (1 standard drink = 0.6 oz pur e alcohol) Comments Unknown Sex and Gender Information Value Date Recorded Sex Assigned at Not on file Legal Sex Female 8:30 AM MATERIAL YARD CLERK Gender Identity Female 10/06/2021 4:28 PM MATERIAL YARD CLERK Sexual Orientation Choose not to disclose 2020 4:28 PM MATERIAL YARD CLERK documented as of this encounter Plan [...] Diagnoses Diagnosis Atrial fibrillation, unspecified type (HCC) rn long term care current use of anticoagulant therapy documented in this encounter Care Teams Laboratory Mechanic Helper Relationship Specialty Start Date End Date Devaughn Macias MD PCP - General Family Medicine 01/31/20 01/13/22 documented as of this encounter
--- OUTSIDE RECORDS SUMMARY | 2024-10-22 14:52 | XMS_ITS | Encounter Summary ---
Author Organization [facility] Address [address] [place] [address] Care Team Providers Care Maintenance Craftsman Name Role Phone Devaughn Macias MD Primary Care Provider Encounter Details Date Type Department Care Team (Late st Contact Info) Description 12/04/2020 Telephone [facility] Cardiology [address] [facility] [address] [address] [place] [address] Andrade Brown MD [facility] [place] [phone] Social History Tobacco Use Types Packs/Day Years Used Date Smoking Tobacco: Former Cigarettes Q uit: 09/28/1978 Smokeless Tobacco: Never Alcohol Use Standard Drinks/Week Comments Yes 0 (1 standard drink = 0.6 oz pur e alcohol) Comments Unknown Sex and Gender Information Value Date Recorded Sex Assigned at Not on file Legal Sex Female 8:30 AM POLEYARD SUPERVISOR Gender Identity Female 10/06/2021 4:28 PM POLEYARD SUPERVISOR Sexual Orientation Choose not to disclose 2020 4:28 PM POLEYARD SUPERVISOR documented as of this encounter Ordered Prescriptions [...] Oct 2020. Ptwill get blood test tomorrow. YARD SUPERVISOR * Telephone Encounter - Khushi Mcelroy - 12/04/2020 3:00 PM CST Received refill for Warfarin, but instead od 90 day supply, she received a 30 day supply. Pharmacy told her that's what we ordered and we will have to send them a new order. Verified pharmacy in chart is correct. YARD SUPERVISOR documented in this encounter Plan of [...] documented as of this encounter Care Teams Maintenance Craftsman Relationship Specialty Start Date End Date Devaughn Macias MD PCP - General Family Medicine 01/31/20 01/13/22 documented as of this encounter
--- OUTSIDE RECORDS SUMMARY | 2024-10-22 14:52 | XMS_ITS | Encounter Summary ---
Author Organization [facility] Address [address] [place] [address] Care Team Providers Care Cager Operator Name Role Phone Devaughn Macias MD Primary Care Provider Encounter Details Date Type Department Care Team (Latest Contact Info) Description 07/16/2021 Anticoagulation Visit [facility] Cardiology [address] [place] [address] Rachel Zhao RN Atrial fibrillation, unspecified type (HCC) (Primary Dx); alf current use of anticoagulant therapy Social History Tobacco Use Types Packs/Day Years Used Date Smoking Tobacco: Former Cigarettes Q uit: 09/28/1978 Smokeless Tobacco: Never Alcohol Use Standard Drinks/Week Comments Yes 0 (1 standard drink = 0.6 oz pur e alcohol) Comments Unknown Sex and Gender Information Value Date Recorded Sex Assigned at Not on file Legal Sex Female 8:30 AM MANAGER STRATEGIC DEVELOPMENT Gender Identity Female 10/06/2021 4:28 PM MANAGER STRATEGIC DEVELOPMENT Sexual Orientation Choose not to disclose 2020 4:28 PM MANAGER STRATEGIC DEVELOPMENT documented as of this encounter Plan of [...] Diagnosis Atrial fibrillation, unspecified type (HCC)- Primary alf current use of anticoagulant therapy documented in this encounter Care Teams Cager Operator Relationship Specialty Start Date End Date Devaughn Macias MD PCP - General Family Medicine 01/31/20 01/13/22 documented as of this encounter
--- OUTSIDE RECORDS SUMMARY | 2024-10-22 14:52 | XMS_ITS | Encounter Summary ---
Author Organization [facility] Address [address] [place] [address] Care Team Providers Care Cellar Pumper Name Role Phone Devaughn Macias MD Primary Care Provider Encounter Details Date Type Department Care Team (Latest Contact Info) Description 09/20/2020 Anticoagulation Visit [facility] Cardiology [address] [place] [address] Jesica Estrada RN intermediate current use of anticoagulant therapy; Atrial fibrillation, [...] on file Legal Sex Female 8:30 AM TOOL POLISHING MACHINE OPERATOR Gender Identity Female 10/06/2021 4:28 PM TOOL POLISHING MACHINE OPERATOR Sexual Orientation Choose not to disclose 2020 4:28 PM TOOL POLISHING MACHINE OPERATOR documented as of this encounter Progress Notes * Jesica Estrada RN - 09/20/2020 3:44 PM CST Opened under wrong patient POLISHING MACHINE OPERATOR documented in this encounter Plan of Treatment Not on file documented as of this encounter Procedures Procedure Name Priority Date/Time Associated Diagnosis Comments PROTIME-INR Routine 09/20/2020 documented in this encounter Results * (ABNORMAL) Protime-INR (09/20/2020) INR 2.50(A) 0.9 - 1.1 EXTERNAL LAB Blood specimen (specimen) Historical Provider LAB BLOOD ORDERABLES Noris l Result EXTERNAL LAB documented in this encounter Visit Diagnoses 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
--- OUTSIDE RECORDS SUMMARY | 2024-10-22 14:52 | XMS_ITS | Encounter Summary ---
Author Organization [facility] Address [address] [place] [address] Care Team Providers Care Weaver Narrow Fabrics Name Role Phone Devaughn Macias MD Primary Care Provider Encounter Details Date Type Department Care Team (Latest Contact Info) Description 04/30/2021 Anticoagulation Visit [facility] Cardiology [address] [place] [address] Jesica Estrada RN Atrial fibrillation, [...] on file Legal Sex Female 8:30 AM TRIAL JUSTICE Gender Identity Female 10/06/2021 4:28 PM TRIAL JUSTICE Sexual Orientation Choose not to disclose 2020 4:28 PM TRIAL JUSTICE documented as of this encounter Plan of [...] fibrillation, unspecified type (HCC)- Primary 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
--- OUTSIDE RECORDS SUMMARY | 2024-10-22 14:52 | XMS_ITS | Encounter Summary ---
Author Organization [facility] Address [address] [place] [address] Care Team Providers Care Processing Spec Name Role Phone Devaughn Macias MD Primary Care Provider Encounter Details Date Type Department Care Team (Latest Contact Info) Description 01/02/[address] [facility] Cardiology [address] [place] [address] Jesica Estrada RN Atrial fibrillation, unspecified type (CMS/HCC); [facility] current use of anticoagulant therapy Social History Tobacco Use Types Packs/Day Years Used Date Smoking Tobacco: Former Cigarettes Q uit: 09/28/1978 Smokeless Tobacco: Never Alcohol Use Standard Drinks/Week Comments Yes 0 (1 standard drink = 0.6 oz pur e alcohol) Comments Unknown Sex and Gender Information Value Date Recorded Sex Assigned at Not on file Legal Sex Female 8:30 AM ASSISTANT MEN'S SOCCER COACH Gender Identity Female 10/06/2021 4:28 PM ASSISTANT MEN'S SOCCER COACH Sexual Orientation Choose not to disclose 2020 4:28 PM ASSISTANT MEN'S SOCCER COACH documented as of this encounter Plan [...] Diagnoses Diagnosis Atrial fibrillation, unspecified type (HCC) 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
--- OUTSIDE RECORDS SUMMARY | 2024-10-22 14:52 | XMS_ITS | Encounter Summary ---
Author Organization [facility] Address [address] [place] [address] Care Team Providers Care Plastics Design Engineer Name Role Phone Devaughn Macias MD Primary Care Provider Reason for Visit * Reason Comments Pain Encounter Details Date Type Department Care Team (Late st Contact Info) Description 09/12/2020 11:30 AM HAM PUMPER Office Visit [facility] Orthopedics and Sports Medicine [address] [place] [phone] Victoria Madison PA [address] [place] [address] [address] [place] [address] Primary osteoarthritis of left hip (Primary Dx) Social History Tobacco Use Types Packs/Day Years Used Date Smoking Tobacco: Former Cigarettes Q uit: 09/28/1978 Smokeless Tobacco: Never Alcohol Use Standard Drinks/Week Comments Yes 0 (1 standard drink = 0.6 oz pur e alcohol) Comments Unknown Sex and Gender Information Value Date Recorded Sex Assigned at Not on file Legal Sex Female 8:30 AM HAM PUMPER Gender Identity Female 10/06/2021 4:28 PM HAM PUMPER Sexual Orientation Choose not to disclose 2020 4:28 PM HAM PUMPER documented as of this encounter Last Filed Vital Signs Vital Sign Reading Time Taken Comments Blood Pressure 190/84 09/12/2020 11:11 AM HAM PUMPER Pulse 72 09/12/2020 11:11 AM HAM PUMPER Temperature 36.1 ??C (96.9 ??F) 09/12/2020 11:[address] Respiratory Rate - - Oxygen Saturation - - Inhaled Oxygen Concentration - - Weight 88.9 kg (196 lb) 09/12/2020 11:11 AM HAM PUMPER Height 165.1 cm (5' 5 ) 09/12/2020 11:11 AM HAM PUMPER Body Mass Index 32.62 09/12/2020 11:11 AM HAM PUMPER documented in this encounter Progress Notes * [...] office with any further questions or concerns. RACEHLLE Sparrow Cosigned by Herber Knott MD at 09/12/2020 4:09 PM HAM PUMPER PUMPER PUMPER documented in this encounter Plan of Treatment Not on file documented as of this encounter Visit Diagnoses Diagnosis Primary osteoarthritis of left hip- Primary documented in this encounter Care Teams Plastics Design Engineer Relationship Specialty Start Date End Date Devaughn Macias MD PCP - General Family Medicine 01/31/20 01/13/22 documented as of this encounter
--- OUTSIDE RECORDS SUMMARY | 2024-10-22 14:52 | XMS_ITS | Encounter Summary ---
Author Organization [facility] Address [address] [place] [address] Care Team Providers Care Cma Name Role Phone Devaughn Macias MD Primary Care Provider Encounter Details Date Type Department Care Team (Late st Contact Info) Description 10/09/2020 Telephone [facility] Cardiology [address] [facility] [address] [place] [address] Andrade Brown MD [facility] [place] [id number] Social History Tobacco Use Types Packs/Day Years Used Date Smoking Tobacco: Former Cigarettes Q uit: 09/28/1978 Smokeless Tobacco: Never Alcohol Use Standard Drinks/Week Comments Yes 0 (1 standard drink = 0.6 oz pur e alcohol) Comments Unknown Sex and Gender Information Value Date Recorded Sex Assigned at Not on file Legal Sex Female 8:30 AM DATABASE DBA Gender Identity Female 10/06/2021 4:28 PM DATABASE DBA Sexual Orientation Choose not to disclose 2020 4:28 PM DATABASE DBA documented as of this encounter Miscellaneous Notes * Telephone Encounter - Jesica Estrada RN - 10/09/2020 11:16 AM DATABASE DBA Images from the original note were not included. Spoke with patient,test was in error and Patient had labs drawn again today. MayankQuin akisn Matthew Alan, MD 2 hours ago (8:31 AM) My Chart shows results from a test. I had no such test taken. BASE DBA documented in this encounter Plan of Treatment Not on file documented as of this encounter Visit Diagnoses Not on filedocumented in this encounter Care Teams Cma Relationship Specialty Start Date End Date Devaughn Macias MD PCP - General Family Medicine 01/31/20 01/13/22 documented as of this encounter
--- OUTSIDE RECORDS SUMMARY | 2024-10-22 14:52 | XMS_ITS | Encounter Summary ---
Author Organization [facility] Address [address] [place] [address] Care Team Providers Care Yard Hand Name Role Phone Devaughn Macias MD Primary Care Provider Reason for Referral * Diagnostic Imaging (Routine) - Closed Specialty Diagnoses / Procedures Referred By Lyndsey t Referred To Contact Diagnoses Primary osteoarthritis of left hip Procedures [place] Fluoro Guided Injection Hip Left Tawny Ynug PA Phone: tel: fax: [facility] [address] [place] [address] Referral ID Status Reason Start Date Expiration Date Visits Re quested Visits Authorized [id number] Closed 10/09/2021 11/08/2022 1 1 ING AND BRUSHING MACHINE OPERATOR Reason for Visit * Reason Comments Pain Encounter Details Date Type Department Care Team (Late st Contact Info) Description 10/09/2021 9:15 AM DUSTING AND BRUSHING MACHINE OPERATOR Office Visit [facility] Orthopedics and Sports Medicine [address] [place] [address] Tawny Ynug PA [address] [place] [address] Primary osteoarthritis of left hip (Primary Dx) Social History Tobacco Use Types Packs/Day Years Used Date Smoking Tobacco: Former Cigarettes Q uit: 09/28/1978 Smokeless Tobacco: Never Alcohol Use Standard Drinks/Week Comments Yes 0 (1 standard drink = 0.6 oz pur e alcohol) Comments Unknown Sex and Gender Information Value Date Recorded Sex Assigned at Not on file Legal Sex Female 8:30 AM DUSTING AND BRUSHING MACHINE OPERATOR Gender Identity Female 10/06/2021 4:28 PM DUSTING AND BRUSHING MACHINE OPERATOR Sexual Orientation Choose not to disclose 2020 4:28 PM DUSTING AND BRUSHING MACHINE OPERATOR documented as of this encounter Last Filed Vital Signs Vital Sign Reading Time Taken Comments Blood Pressure 174/73 10/09/2021 9:11 AM DUSTING AND BRUSHING MACHINE OPERATOR Pulse 64 10/09/2021 9:11 AM DUSTING AND BRUSHING MACHINE OPERATOR Temperature - - Respiratory Rate - - Oxygen Saturation - - Inhaled Oxygen Concentration - - Weight 89.2 kg (196 lb 9.6 oz) 10/09/2021 9:11 A M DUSTING AND BRUSHING MACHINE OPERATOR Height 165.1 cm (5' 5 ) 10/09/2021 9:11 AM DUSTING AND BRUSHING MACHINE OPERATOR Body Mass Index 32.72 10/09/2021 9:11 AM DUSTING AND BRUSHING MACHINE OPERATOR documented in this encounter Progress Notes * [...] Herber Knott MD at 10/14/2021 3:28 PM DUSTING AND BRUSHING MACHINE OPERATOR ING AND BRUSHING MACHINE OPERATOR ING AND BRUSHING MACHINE OPERATOR documented in this encounter Miscellaneous Notes * Addendum Note - Rito Patel MA - 10/09/2021 9:15 AM CSTAddended by: RITO PATEL on: 10/09/2021 10:51 AM Modules accepted: Orders ING AND BRUSHING MACHINE OPERATOR documented in this encounter Plan of Treatment Not on file documented as of this encounter Results * FL Fluoro Guided Injection Hip Left (10/23/2021 2:34 PM DUSTING AND BRUSHING MACHINE OPERATOR) Anatomical Region Laterality Modality Hip Left Radio Fluoroscop y 10/24/2021 6:25 AM DUSTING AND BRUSHING MACHINE OPERATOR Narrative 10/24/2021 6:27 AM DUSTING AND BRUSHING MACHINE OPERATOR EXAMINATION: ? Left hip ??joint injection under [...] AM T: ??10/24/2021 6:27 AM Report ID: [id number] Reading Location: ??[id number] Procedure Note Grant Carlos MD - 10/24/2021 [...] Grant Carlos M.D. MF: JOHN Report ID: [id number] Reading Location: [id number] Tawny BUSH IMG FLUOROSCOPY PROCEDURE S Final Result documented in this encounter Visit Diagnoses Diagnosis Primary osteoarthritis of left hip- Primary Primary osteoarthritis of left hip documented in this encounter Care Teams Yard Hand Relationship Specialty Start Date End Date Devaughn Macias MD PCP - General Family Medicine 01/31/20 01/13/22 documented as of this encounter
--- OUTSIDE RECORDS SUMMARY | 2024-10-22 14:52 | XMS_ITS | Encounter Summary ---
Author Organization [facility] Address [address] [place] [address] Care Team Providers Care 5Th Grade Teacher Name Role Phone Devaughn Macias MD Primary Care Provider Encounter Details Date Type Department Care Team (Latest Contact Info) Description 10/01/2021 Anticoagulation Visit [facility] Cardiology [address] [place] [address] Rosy White RN Atrial fibrillation, [...] on file Legal Sex Female 8:30 AM VP OF GLOBAL MARKETING Gender Identity Female 10/06/2021 4:28 PM VP OF GLOBAL MARKETING Sexual Orientation Choose not to disclose 2020 4:28 PM VP OF GLOBAL MARKETING documented as of this encounter Plan of [...] therapy documented in this encounter Care Teams 5Th Grade Teacher Relationship Specialty Start Date End Date Devaughn Macias MD PCP - General Family Medicine 01/31/20 01/13/22 documented as of this encounter
--- OUTSIDE RECORDS SUMMARY | 2024-10-22 14:52 | XMS_ITS | Encounter Summary ---
Author Organization [facility] Address [address] [place] [address] Care Team Providers Care Informatics Manager Name Role Phone Devaughn Macias MD Primary Care Provider Reason for Visit * Reason Comments Peripheral Artery Disease Atrial Fibrillation 6 mo f/u Encounter Details Date Type Department Care Team (Latest Contact Info) Description 08/20/2021 9:45 AM WOLF HUNTER Office Visit [facility] Cardiology [address] [place] [address] Andrade Brown MD [address] [address] Non-rheumatic aortic stenosis (Primary Dx); HTN (hypertension), benign; PAD (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) ([facility]/HCC) (HCC); 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; 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 [...] on file Legal Sex Female 8:30 AM WOLF HUNTER Gender Identity Female 10/06/2021 4:28 PM WOLF HUNTER Sexual Orientation Choose not to disclose 2020 4:28 PM WOLF HUNTER documented as of this encounter Last Filed Vital Signs Vital Sign Reading Time Taken Comments Blood Pressure 112/62 08/20/2021 9:38 AM WOLF HUNTER Pulse 60 08/20/2021 9:38 AM WOLF HUNTER Temperature - - Respiratory Rate - - Oxygen Saturation 98% 08/20/2021 9:38 AM WOLF HUNTER Inhaled Oxygen Concentration - - Weight 87.1 kg (192 lb) 08/20/2021 9:38 AM WOLF HUNTER Height 165.1 cm (5' 5 ) 08/20/2021 9:38 AM WOLF HUNTER Body Mass Index 31.95 08/20/2021 9:38 AM WOLF HUNTER documented in this encounter Progress Notes * [...] ablation x2 with recent success 3. 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
--- OUTSIDE RECORDS SUMMARY | 2024-10-22 14:52 | XMS_ITS | Encounter Summary ---
Author Organization [facility] Address [address] [place] [address] Care Team Providers Care Flash Welder Name Role Phone Devaughn Macias MD Primary Care Provider Encounter Details Date Type Department Care Team (Latest Contact Info) Description 10/09/2020 Anticoagulation Visit [facility] Cardiology [address] [place] [address] Jesica Estrada RN Atrial fibrillation, unspecified type (CMS/HCC); residential current use of anticoagulant therapy Social History Tobacco Use Types Packs/Day Years Used Date Smoking Tobacco: Former Cigarettes Q uit: 09/28/1978 Smokeless Tobacco: Never Alcohol Use Standard Drinks/Week Comments Yes 0 (1 standard drink = 0.6 oz pur e alcohol) Comments Unknown Sex and Gender Information Value Date Recorded Sex Assigned at Not on file Legal Sex Female 8:30 AM MECHANICAL FIELD ENGINEER Gender Identity Female 10/06/2021 4:28 PM MECHANICAL FIELD ENGINEER Sexual Orientation Choose not to disclose 2020 4:28 PM MECHANICAL FIELD ENGINEER documented as of this encounter Plan [...] Diagnoses Diagnosis Atrial fibrillation, unspecified type (HCC) technician terminal and repeater current use of anticoagulant therapy documented in this encounter Care Teams Flash Welder Relationship Specialty Start Date End Date Devaughn Macias MD PCP - General Family Medicine 01/31/20 01/13/22 documented as of this encounter
--- OUTSIDE RECORDS SUMMARY | 2024-10-22 14:52 | XMS_ITS | Encounter Summary ---
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 Social History Tobacco Use Types Packs/Day Years Used Date Smoking Tobacco: Former Cigarettes Q uit: 09/28/1978 Smokeless Tobacco: Never Alcohol Use Standard Drinks/Week Comments Yes 0 (1 standard drink = 0.6 oz pur e alcohol) Comments Unknown Sex and Gender Information Value Date Recorded Sex Assigned at Not on file Legal Sex Female 8:30 AM COMBAT SYSTEMS OFFICER Gender Identity Female 10/06/2021 4:28 PM COMBAT SYSTEMS OFFICER Sexual Orientation Choose not to disclose 2020 4:28 PM COMBAT SYSTEMS OFFICER documented as of this encounter Plan [...] Diagnosis Atrial fibrillation, unspecified type (HCC)- Primary ocean transportation intermediary current 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
--- OUTSIDE RECORDS SUMMARY | 2024-10-22 14:52 | XMS_ITS | Encounter Summary ---
Author Organization [facility] Address [address] [place] [address] Care Team Providers Care Chisel Trimmer Name Role Phone Devaughn Macias MD Primary Care Provider Encounter Details Date Type Department Care Team (Latest Contact Info) Description 06/05/2021 Anticoagulation Visit [facility] Cardiology [address] [place] [address] Jesica Estrada RN Atrial fibrillation, [...] on file Legal Sex Female 8:30 AM CHICKEN AND FISH BUTCHER Gender Identity Female 10/06/2021 4:28 PM CHICKEN AND FISH BUTCHER Sexual Orientation Choose not to disclose 2020 4:28 PM CHICKEN AND FISH BUTCHER documented as of this encounter Plan of [...] therapy documented in this encounter Care Teams Chisel Trimmer Relationship Specialty Start Date End Date Devaughn Macias MD PCP - General Family Medicine 01/31/20 01/13/22 documented as of this encounter
--- OUTSIDE RECORDS SUMMARY | 2024-10-22 14:52 | XMS_ITS | Encounter Summary ---
Author Organization [facility] Address [address] [place] [address] Care Team Providers Care Special Education Coordinator Name Role Phone Devaughn Macias MD Primary Care Provider Encounter Details Date Type Department Care Team (Late st Contact Info) Description 02/12/2021 Telephone [facility] Cardiology [address] [place] [address] Andrade Brown MD [facility] [place] [id number] Social History Tobacco Use Types Packs/Day Years Used Date Smoking Tobacco: Former Cigarettes Q uit: 09/28/1978 Smokeless Tobacco: Never Alcohol Use Standard Drinks/Week Comments Yes 0 (1 standard drink = 0.6 oz pur e alcohol) Comments Unknown Sex and Gender Information Value Date Recorded Sex Assigned at Not on file Legal Sex Female 8:30 AM SCIENTIFIC INFORMATICS LEADER Gender Identity Female 10/06/2021 4:28 PM SCIENTIFIC INFORMATICS LEADER Sexual Orientation Choose not to disclose 2020 4:28 PM SCIENTIFIC INFORMATICS LEADER documented as of this encounter Miscellaneous Notes * Telephone Encounter - Rosy White RN - 02/12/2021 10:56 AM CDT Pt inr documented in this encounter Plan of Treatment Scheduled Orders Name Type Priority Associated Diagnoses Orde r Schedule Protime-INR Lab Routine Paroxysmal atrial fibrillation (CMS/HCC) 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
--- OUTSIDE RECORDS SUMMARY | 2024-10-22 14:52 | XMS_ITS | Encounter Summary ---
Author Organization [facility] Address [address] [place] [address] Care Team Providers Care Car Builder Name Role Phone Devaughn Macias MD Primary Care Provider Reason for Visit * Cardiology (Routine) - Closed Specialty Diagnoses / Procedures Referred By Contac t Referred To Contact Diagnoses History of COVID-19 Paroxysmal atrial fibrillation (CMS/HCC) (HCC) HTN (hypertension), benign Procedures Transthoracic Echo Complete W Doppler/CF Ciarra Fitzpatrick MD [address] [address] Phone: tel: fax: [facility] Referral ID Status Reason Start Date Expiration Date Visits Re quested Visits Authorized [id number] Closed 02/12/2021 03/14/2022 1 1 Encounter Details Date Type Department Care Team (Latest Contact Info) Description 04/02/2021 9:15 AM CDT Ancillary Procedure [facility] Cardiology [address] [place] [address] History of COVID-19; Paroxysmal atrial [...] on file Legal Sex Female 8:30 AM BLOCKER AND SEWER Gender Identity Female 10/06/2021 4:28 PM BLOCKER AND SEWER Sexual Orientation Choose not to disclose 2020 4:28 PM BLOCKER AND SEWER documented as of this encounter Plan [...] AM CDT Narrative 04/02/2021 12:28 PM CDT [facility] Cardiology [address], [place] [address] [address], [place] [address] P:[phone] P:[phone] Echocardiographic Report Patient Name: QUIN HUERTA : [id number] Study Date: 04/02/2021 8:42:16 AM Gender: F Tech: Location: [place] Ref.Provider: CIARRA FITZPATRICK Height(Cm): 165 BSA: 1.94 [...] Findings: Interpretation Site: Exam was interpreted at [facility]. Left Ventricle: Normal left ventricular systolic [...] Procedure Note Prieto Rowell MD - 04/02/2021 [facility] Cardiology [address] [facility] [address] [address] [address] [address] P:[phone] P:[phone] Echocardiographic Report Patient Name: QUIN HUERTAPatient ID: [id number] : [id number] Date: 04/02/2021 8:42:16 AM Gender: FAccession #: [id number] Tech: GMLocation: [place] Ref.Provider: CIARRA FITZPATRICKHeight(Cm): 165 BSA: 1.94Weight(Kg): 86.64 [...] 0.40 - 0.80 ] m/s MV Decel [id number] [ 150 - 200 ] msec PV Peak Vel1.38 [ 0.40 - 0.80 ] m/s TR Peak Vel2.75 [ 0.40 - 0.80 ] m/s TR Peak PG 30mmHg RVSP38.00 mmHg E'0.09 E/E' 10 Findings: Interpretation Site: Exam was interpreted at [facility]. Left Ventricle: Normal left ventricular systolic [...] benign documented in this encounter Care Teams Car Builder Relationship Specialty Start Date End Date Devaughn Macias MD PCP - General Family Medicine 01/31/20 01/13/22 documented as of this encounter
--- OUTSIDE RECORDS SUMMARY | 2024-10-22 14:52 | XMS_ITS | Encounter Summary ---
Author Organization [facility] Address [address] [place] [address] Care Team Providers Care Commissary Clerk Name Role Phone Devaughn Macias MD Primary Care Provider Encounter Details Date Type Department Care Team (Late st Contact Info) Description 10/09/2021 Telephone [facility] Orthopedics and Sports Medicine [address] [address] Blossom Conley MA Social History Tobacco Use Types Packs/Day Years Used Date Smoking Tobacco: Former Cigarettes Q uit: 09/28/1978 Smokeless Tobacco: Never Alcohol Use Standard Drinks/Week Comments Yes 0 (1 standard drink = 0.6 oz pur e alcohol) Comments Unknown Sex and Gender Information Value Date Recorded Sex Assigned at Not on file Legal Sex Female 8:30 AM BAR TURNER Gender Identity Female 10/06/2021 4:28 PM BAR TURNER Sexual Orientation Choose not to disclose 2020 4:28 PM BAR TURNER documented as of this encounter Miscellaneous Notes * Telephone Encounter - Blossom Conley MA - 10/13/2021 9:01 AM BAR TURNER Secondary insurance is a Medicare supplement plan. No auth required. Called and left voicemail for patient with scheduling's number. TURNER * Telephone Encounter - Blossom Conley MA - 10/09/2021 10:52 AM BAR TURNER Fluoro guided injection ordered. Working on auth- has secondary insurance of [employer] TURNER documented in this encounter Plan of Treatment Not on file documented as of this encounter Visit Diagnoses Not on filedocumented in this encounter Care Teams Commissary Clerk Relationship Specialty Start Date End Date Devaughn Macias MD PCP - General Family Medicine 01/31/20 01/13/22 documented as of this encounter
--- OUTSIDE RECORDS SUMMARY | 2024-10-22 14:53 | XMS_ITS | Encounter Summary ---
Author Organization [facility] Address [address] [place] [address] Care Team Providers Care Window Caser Name Role Phone Kali Hunt MD Primary Care Provider [phone] Reason for Visit * Reason Comments Atrial Fibrillation Peripheral Artery Disease Hypertension Hyperlipidemia 6 mo f/u Encounter Details Date Type Department Care Team (Latest Contact Info) Description 07/26/2019 11:30 AM CDT Office Visit [facility] [address] [place] [address] Andrade Brown MD [address] [address] 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 goal <100 (Primary Dx); 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 Andrade Brown MD, [facility] documented in this encounter Plan of Treatment Not on file documented as of this encounter Visit Diagnoses Diagnosis 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 goal <100- Primary Other and unspecified hyperlipidemia [facility] current use of anticoagulant therapy PAD (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) (HCC) Unspecified peripheral vascular disease Paroxysmal atrial fibrillation (CMS/HCC) (HCC) Atrial fibrillation documented in this encounter Care Teams Window Caser Relationship Specialty Start Date End Date Kali Hunt MD [address] [place] [id number] PCP - General Family Medicine 02/08/19 01/30/20 documented as of this encounter
--- OUTSIDE RECORDS SUMMARY | 2024-10-22 14:53 | XMS_ITS | Encounter Summary ---
Author Organization [facility] Address [address] [place] [address] Care Team Providers Care Sales Consultant Insurance Name Role Phone Devaughn Macias MD Primary Care Provider Reason for Visit * Diagnostic Imaging (Routine) - Closed Specialty Diagnoses / Procedures Referred By Lyndsey farmer Referred To Contact Diagnoses Left hip pain Procedures XR Hip Left 2 or 3 Views Kami Lyons PA Phone: tel: fax: Referral ID Status Reason Start Date Expiration Date Visits Re quested Visits Authorized [id number] Closed 06/07/2020 07/07/2021 1 1 Encounter Details Date Type Department Care Team (Latest Contact Info) Description 06/07/2020 8:06 AM CDT - 06/07/2020 11:59 PM CDT Hospital Encounter [facility] Orthopedics and Sports Medicine [address] [place] [address] [address], [place] [address] Discharge Disposition: Discharge to home [...] on file Legal Sex Female 8:30 AM CARRY ALL DRIVER Gender Identity Female 10/06/2021 4:28 PM CARRY ALL DRIVER Sexual Orientation Choose not to disclose 12/27/ 2021 4:28 PM CARRY ALL DRIVER documented as of this encounter Medications at [...] filedocumented in this encounter Care Teams Sales Consultant Insurance Relationship Specialty Start Date End Date Devaughn Macias MD PCP - General Family Medicine 01/31/20 01/13/22 documented as of this encounter
--- OUTSIDE RECORDS SUMMARY | 2024-10-22 14:53 | XMS_ITS | Encounter Summary ---
Author Organization [facility] Address [address] [place] [address] Care Team Providers Care Policy Checker Name Role Phone Devaughn Macias MD Primary Care Provider Encounter Details Date Type Department Care Team (Latest Contact Info) Description 06/05/2020 Anticoagulation Visit [facility] Cardiology [address] [place] [address] Jacque Herrera RN Atrial fibrillation (CMS/HCC); rn long term care current [...] on file Legal Sex Female 8:30 AM LAMINATOR Gender Identity Female 10/06/2021 4:28 PM LAMINATOR Sexual Orientation Choose not to disclose 2020 4:28 PM LAMINATOR documented as of this encounter Plan of [...] therapy documented in this encounter Care Teams Policy Checker Relationship Specialty Start Date End Date Devaughn Macias MD PCP - General Family Medicine 01/31/20 01/13/22 documented as of this encounter
--- OUTSIDE RECORDS SUMMARY | 2024-10-22 14:53 | XMS_ITS | Encounter Summary ---
Author Organization [facility] Care Team Providers Care Nanoscience Technician Name Role Phone Kali Hunt MD Primary Care Provider [phone] Encounter Details Date Type Department Care Team [...] on file Legal Sex Female 8:30 AM ODD SHOE EXAMINER Gender Identity Female 10/06/2021 4:28 PM ODD SHOE EXAMINER Sexual Orientation Choose not to disclose 2020 4:28 PM ODD SHOE EXAMINER documented as of this encounter Plan of Treatment Not on file documented as of this encounter Visit Diagnoses Not on filedocumented in this encounter Care Teams Nanoscience Technician Relationship Specialty Start Date End Date Kali Hunt MD [address] [address] PCP - General Family Medicine 02/08/19 01/30/20 documented as of this encounter
--- OUTSIDE RECORDS SUMMARY | 2024-10-22 14:53 | XMS_ITS | Encounter Summary ---
Author Organization [facility] Address [address] [facility] [address] [place] [address] Care Team Providers Care Cold Molding Press Operator Name Role Phone Kali Hunt MD Primary Care Provider [phone] Encounter Details Date Type Department Care Team (Latest Contact Info) Description 05/17/2019 Anticoagulation Visit [facility] [address] [place] [address] Andrade Brown MD [address] [place] [address] Paroxysmal atrial fibrillation (CMS/HCC); longterm current use [...] Legal Sex Female 8:30 AM HUMAN RESOURCES PARTNER Gender Identity Female 10/06/2021 4:28 PM HUMAN RESOURCES PARTNER Sexual Orientation Choose not to disclose 2020 4:28 PM HUMAN RESOURCES PARTNER documented as of this encounter Plan of Treatment Not on file documented as of this encounter Procedures Procedure Name Priority Date/Time Associated Diagnosis Comments PROTIME-INR Routine 05/17/2019 documented in this encounter Results * (ABNORMAL) Protime-INR (05/17/2019) INR 2.42(A) 0.9 - 1.1 EXTERNAL LAB Blood specimen (specimen) us [facility] Provider LAB BLOOD ORDERABLES Noris l Result EXTERNAL LAB documented in this encounter Visit Diagnoses Diagnosis Paroxysmal atrial fibrillation (CMS/HCC) (HCC) Atrial fibrillation longterm current use of anticoagulant therapy documented in this encounter Care Teams Cold Molding Press Operator Relationship Specialty Start Date End Date Kali Hunt MD [address] [address] PCP - General Family Medicine 02/08/19 01/30/20 documented as of this encounter
--- OUTSIDE RECORDS SUMMARY | 2024-10-22 14:53 | XMS_ITS | Encounter Summary ---
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
--- OUTSIDE RECORDS SUMMARY | 2024-10-22 14:53 | XMS_ITS | Encounter Summary ---
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 Social History Tobacco Use Types Packs/Day Years Used Date Smoking Tobacco: Former Cigarettes Q uit: 09/28/1978 Smokeless Tobacco: Never Alcohol Use Standard Drinks/Week Comments Yes 0 (1 standard drink = 0.6 oz pur e alcohol) Comments Unknown Sex and Gender Information Value Date Recorded Sex Assigned at Not on file Legal Sex Female 8:30 AM MANAGER APPLIED Gender Identity Female 10/06/2021 4:28 PM MANAGER APPLIED Sexual Orientation Choose not to disclose 2020 4:28 PM MANAGER APPLIED documented as of this encounter Plan of [...] Paroxysmal atrial fibrillation (CMS/HCC) (HCC) Atrial fibrillation 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
--- OUTSIDE RECORDS SUMMARY | 2024-10-22 14:53 | XMS_ITS | Encounter Summary ---
Author Organization [facility] Address [address] [facility] [address] [place] [address] Care Team Providers Care Conference Interpreter Name Role Phone Kali Hunt MD Primary Care Provider [phone] Encounter Details Date Type Department Care Team (Latest Contact Info) Description 09/14/2019 Anticoagulation Visit [facility] [address] [facility] [address] [place] [phone] Rosy White RN Paroxysmal atrial fibrillation (CMS/HCC); [...] on file Legal Sex Female 8:30 AM PROP SAWYER Gender Identity Female 10/06/2021 4:28 PM PROP SAWYER Sexual Orientation Choose not to disclose 2020 4:28 PM PROP SAWYER documented as of this encounter Plan [...] Paroxysmal atrial fibrillation (CMS/HCC) (HCC) 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
--- OUTSIDE RECORDS SUMMARY | 2024-10-22 14:53 | XMS_ITS | Encounter Summary ---
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 Social History Tobacco Use Types Packs/Day Years Used Date Smoking Tobacco: Former Cigarettes Q uit: 09/28/1978 Smokeless Tobacco: Never Alcohol Use Standard Drinks/Week Comments Yes 0 (1 standard drink = 0.6 oz pur e alcohol) Comments Unknown Sex and Gender Information Value Date Recorded Sex Assigned at Not on file Legal Sex Female 8:30 AM RIM ROLLER SETTER Gender Identity Female 10/06/2021 4:28 PM RIM ROLLER SETTER Sexual Orientation Choose not to disclose 2020 4:28 PM RIM ROLLER SETTER documented as of this encounter Plan [...] therapy documented in this encounter Care Teams Import/Export Administrator Relationship Specialty Start Date End Date Devaughn Macias MD PCP - General Family Medicine 01/31/20 01/13/22 documented as of this encounter
--- OUTSIDE RECORDS SUMMARY | 2024-10-22 14:53 | XMS_ITS | Encounter Summary ---
Author Organization [facility] Address [address] [place] [address] Care Team Providers Care Rehabilitation Liaison Name Role Phone Devaughn Macias MD Primary Care Provider Denis Platt MD Primary Care Provide r Gideon Campbell MD Primary Care Provider Encounter Details Date Type Department Care Team (Late st Contact Info) Description 06/18/2020 Telephone [facility] [address] [place] [address] Jagdish Ortega RT Social History Tobacco Use Types Packs/Day Years Used Date Smoking Tobacco: Former Cigarettes Q uit: 09/28/1978 Smokeless Tobacco: Never Alcohol Use Standard Drinks/Week Comments Yes 0 (1 standard drink = 0.6 oz pur e alcohol) Comments Unknown Sex and Gender Information Value Date Recorded Sex Assigned at Not on file Legal Sex Female 8:30 AM FILTERS ASSEMBLER Gender Identity Female 10/06/2021 4:28 PM FILTERS ASSEMBLER Sexual Orientation Choose not to disclose 2020 4:28 PM FILTERS ASSEMBLER documented as of this encounter Plan of Treatment Not on file documented as of this encounter Visit Diagnoses Not on filedocumented in this encounter Care Teams Rehabilitation Liaison Relationship Specialty Start Date End Date Devaughn Macias MD PCP - General Family Medicine 01/31/20 01/13/22 Denis Platt MD [address] [place] [address] PCP - General Family Medicine 01/14/22 07/18/23 Gideon Campbell MD [address] [facility] [address] [place] [address] PCP - General Family Medicine 07/19/23 documented as of this encounter
--- OUTSIDE RECORDS SUMMARY | 2024-10-22 14:53 | XMS_ITS | Encounter Summary ---
Author Organization [facility] Address [address] [facility] [address] [place] [address] Care Team Providers Care Retail Operations Manager Name Role Phone Devaughn Macias MD Primary Care Provider Encounter Details Date Type Department Care Team (Late st Contact Info) Description 06/19/2020 Telephone [facility] Orthopedics and Sports Medicine [address] [facility] [address], [place] [address] [place] [address] [place] [address] Social History Tobacco Use Types Packs/Day Years Used Date Smoking Tobacco: Former Cigarettes Q uit: 09/28/1978 Smokeless Tobacco: Never Alcohol Use Standard Drinks/Week Comments Yes 0 (1 standard drink = 0.6 oz pur e alcohol) Comments Unknown Sex and Gender Information Value Date Recorded Sex Assigned at Not on file Legal Sex Female 8:30 AM AREA LOSS PREVENTION MANAGER Gender Identity Female 10/06/2021 4:28 PM AREA LOSS PREVENTION MANAGER Sexual Orientation Choose not to disclose 2020 4:28 PM AREA LOSS PREVENTION MANAGER documented as of this encounter Miscellaneous [...] filedocumented in this encounter Care Teams Retail Operations Manager Relationship Specialty Start Date End Date Devaughn Macias MD PCP - General Family Medicine 01/31/20 01/13/22 documented as of this encounter
--- OUTSIDE RECORDS SUMMARY | 2024-10-22 14:53 | XMS_ITS | Encounter Summary ---
Author Organization [facility] Address [address] [facility] [address] [place] [address] Care Team Providers Care Delivery Rep Name Role Phone Kali Hunt MD Primary Care Provider [phone] Encounter Details Date Type Department Care Team (Latest Contact Info) Description 06/28/2019 Anticoagulation Visit [facility] [address] [place] [address] Andrade Brown MD [address] [place] [address] Paroxysmal atrial fibrillation (CMS/HCC); senior living current [...] on file Legal Sex Female 8:30 AM INSULATION BOARD COATER OPERATOR Gender Identity Female 10/06/2021 4:28 PM INSULATION BOARD COATER OPERATOR Sexual Orientation Choose not to disclose 2020 4:28 PM INSULATION BOARD COATER OPERATOR documented as of this encounter Plan of Treatment Not on file documented as of this encounter Procedures Procedure Name Priority Date/Time Associated Diagnosis Comments PROTIME-INR Routine 06/28/2019 documented in this encounter Results * (ABNORMAL) Protime-INR (06/28/2019) INR 1.97(A) 0.9 - 1.1 EXTERNAL LAB Blood specimen (specimen) us [facility] Provider LAB BLOOD ORDERABLES Noris l Result EXTERNAL LAB documented in this encounter Visit Diagnoses Diagnosis Paroxysmal atrial fibrillation (CMS/HCC) (HCC) Atrial fibrillation senior living current use of anticoagulant therapy documented in this encounter Care Teams Delivery Rep Relationship Specialty Start Date End Date Kali Hunt MD [address] [address] PCP - General Family Medicine 02/08/19 01/30/20 documented as of this encounter
--- OUTSIDE RECORDS SUMMARY | 2024-10-22 14:53 | XMS_ITS | Encounter Summary ---
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 Social History Tobacco Use Types Packs/Day Years Used Date Smoking Tobacco: Former Cigarettes Q uit: 09/28/1978 Smokeless Tobacco: Never Alcohol Use Standard Drinks/Week Comments Yes 0 (1 standard drink = 0.6 oz pur e alcohol) Comments Unknown Sex and Gender Information Value Date Recorded Sex Assigned at Not on file Legal Sex Female 8:30 AM LASTING ROOM SUPERVISOR Gender Identity Female 10/06/2021 4:28 PM LASTING ROOM SUPERVISOR Sexual Orientation Choose not to disclose 2020 4:28 PM LASTING ROOM SUPERVISOR documented as of this encounter Plan [...] atrial fibrillation (CMS/HCC) (HCC) Atrial fibrillation 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
--- OUTSIDE RECORDS SUMMARY | 2024-10-22 14:53 | XMS_ITS | Encounter Summary ---
Author Organization [facility] Address [address] [place] [address] Care Team Providers Care Roof Fixer Name Role Phone Devaughn Macias MD Primary Care Provider Encounter Details Date Type Department Care Team (Late st Contact Info) Description 06/26/2020 8:15 AM CDT [address] [address] Social History Tobacco Use Types Packs/Day Years Used Date Smoking Tobacco: Former Cigarettes Q uit: 09/28/1978 Smokeless Tobacco: Never Alcohol Use Standard Drinks/Week Comments Yes 0 (1 standard drink = 0.6 oz pur e alcohol) Comments Unknown Sex and Gender Information Value Date Recorded Sex Assigned at Not on file Legal Sex Female 8:30 AM INTERNET SECURITY SPECIALIST Gender Identity Female 10/06/2021 4:28 PM INTERNET SECURITY SPECIALIST Sexual Orientation Choose not to disclose 2020 4:28 PM INTERNET SECURITY SPECIALIST documented as of this encounter Plan of Treatment Not on file documented as of this encounter Visit Diagnoses Not on filedocumented in this encounter Care Teams Roof Fixer Relationship Specialty Start Date End Date Devaughn Macias MD PCP - General Family Medicine 01/31/20 01/13/22 documented as of this encounter
--- OUTSIDE RECORDS SUMMARY | 2024-10-22 14:53 | XMS_ITS | Encounter Summary ---
Author Organization [facility] Address [address] [facility] [address] [place] [address] Care Team Providers Care Legal Billing Specialist Name Role Phone Devaughn Macias MD Primary Care Provider Encounter Details Date Type Department Care Team (Latest Contact Info) Description 05/08/2020 Anticoagulation Visit [facility] Cardiology [address] [place] [address] Rosy White RN Atrial fibrillation (CMS/HCC); retirement current use of anticoagulant [...] file Legal Sex Female 8:30 AM ASSISTANT AUDITOR Gender Identity Female 10/06/2021 4:28 PM ASSISTANT AUDITOR Sexual Orientation Choose not to disclose 2020 4:28 PM ASSISTANT AUDITOR documented as of this encounter Plan [...] Diagnosis Atrial fibrillation (CMS/HCC) (HCC) Atrial fibrillation retirement current use of anticoagulant therapy documented in this encounter Care Teams Legal Billing Specialist Relationship Specialty Start Date End Date Devaughn Macias MD PCP - General Family Medicine 01/31/20 01/13/22 documented as of this encounter
--- OUTSIDE RECORDS SUMMARY | 2024-10-22 14:53 | XMS_ITS | Encounter Summary ---
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
--- OUTSIDE RECORDS SUMMARY | 2024-10-22 14:53 | XMS_ITS | Encounter Summary ---
Author Organization [facility] Address [address] [facility] [address] [place] [address] Care Team Providers Care Refractory Worker Name Role Phone Devaughn Macias MD Primary Care Provider Encounter Details Date Type Department Care Team (Late st Contact Info) Description 02/08/2020 Telephone [facility] Cardiology [address] [facility] [address] [place] [address] Andrade Brown MD [facility] [place] [id number] Social History Tobacco Use Types Packs/Day Years Used Date Smoking Tobacco: Former Cigarettes Q uit: 09/28/1978 Smokeless Tobacco: Never Alcohol Use Standard Drinks/Week Comments Yes 0 (1 standard drink = 0.6 oz pur e alcohol) Comments Unknown Sex and Gender Information Value Date Recorded Sex Assigned at Not on file Legal Sex Female 8:30 AM DATA PROCESSING MANAGER Gender Identity Female 10/06/2021 4:28 PM DATA PROCESSING MANAGER Sexual Orientation Choose not to disclose 2020 4:28 PM DATA PROCESSING MANAGER documented as of this encounter Miscellaneous Notes * Telephone Encounter - Rachel Zhao, RN - 02/08/2020 9:19 AM CDT Called pt back. New standing order for INR faxed to [facility] lab as requested. * Telephone Encounter - Mandy Zamora - 02/08/2020 9:12 AM CDT Pt called to request a blood work order be faxed to [facility]. 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
--- OUTSIDE RECORDS SUMMARY | 2024-10-22 14:53 | XMS_ITS | Encounter Summary ---
Author Organization [facility] Address [address] [facility] [address] [place] [address] Care Team Providers Care Radiographer Technologist Name Role Phone Devaughn Macias MD Primary Care Provider Reason for Visit * Reason Comments Hyperlipidemia Hypertension Peripheral Artery Disease 6 mo f/u Encounter Details Date Type Department Care Team (Latest Contact Info) Description 01/31/2020 9:45 AM CDT Telemedicine [facility] Cardiology [address] [place] [address] Andrade Brown MD [address] [address] PAD (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/HCC) (Primary Dx); 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 goal <100; roasterman current use of anticoagulant therapy; Paroxysmal atrial [...] on file Legal Sex Female 8:30 AM REMOTE SENSING ADVISOR Gender Identity Female 10/06/2021 4:28 PM REMOTE SENSING ADVISOR Sexual Orientation Choose not to disclose 2020 4:28 PM REMOTE SENSING ADVISOR documented as of this encounter Last Filed [...] PVI ablation x2 with recent success 3. FPC (current) use of anticoagulants [Z79.01] No bleeding problems 4. PAD (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/HCC) Mild femoral disease 5. 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 goal <100 6. HTN (hypertension), benign At goal 7.. Mild carotid artery disease PLAN/RECOMMENDATIONS She is stable. I recommend continue her current cardiac regimen without change and I will see her back in 6 months or sooner as clinically indicated. Andrade Brown MD, [facility] This was a telemedicine visit with Quin Talley which took place via Telephone. During the visit, I was located [facility] and the [facility] was located [...] LDL goal <100 Other and unspecified hyperlipidemia roasterman current use of anticoagulant therapy Paroxysmal atrial fibrillation (CMS/HCC) (HCC) Atrial fibrillation HTN (hypertension), benign Essential hypertension, benign documented in this encounter Care Teams Radiographer Technologist Relationship Specialty Start Date End Date Devaughn Macias MD PCP - General Family Medicine 01/31/20 01/13/22 documented as of this encounter
--- OUTSIDE RECORDS SUMMARY | 2024-10-22 14:53 | XMS_ITS | Encounter Summary ---
Author Organization [facility] Address [address] [facility] [address] [place] [address] Care Team Providers Care Electric Blanket Packer Name Role Phone Kali Hunt MD Primary Care Provider [phone] Encounter Details Date Type Department Care Team (Latest Contact Info) Description 11/29/2019 Anticoagulation Visit [facility] Cardiology [address] [place] [phone] Rosy White RN Paroxysmal atrial fibrillation (CMS/HCC); [...] on file Legal Sex Female 8:30 AM PHYSICIAN OFFICE ASSISTANT Gender Identity Female 10/06/2021 4:28 PM PHYSICIAN OFFICE ASSISTANT Sexual Orientation Choose not to disclose 2020 4:28 PM PHYSICIAN OFFICE ASSISTANT documented as of this encounter Plan [...] therapy documented in this encounter Care Teams Electric Blanket Packer Relationship Specialty Start Date End Date Kali Hunt MD [address] [place] [address] PCP - General Family Medicine 02/08/19 01/30/20 documented as of this encounter
--- OUTSIDE RECORDS SUMMARY | 2024-10-22 14:53 | XMS_ITS | Encounter Summary ---
Author Organization [facility] Address [address] [facility] [address] [place] [address] Care Team Providers Care Bookbinder Apprentice Name Role Phone Devaughn Macias MD Primary Care Provider Encounter Details Date Type Department Care Team (Latest Contact Info) Description 07/17/2020 Anticoagulation Visit [facility] Cardiology [address] [place] [address] Rachel Zhao RN Atrial fibrillation, unspecified type (CMS/HCC); senior living current use of anticoagulant [...] file Legal Sex Female 8:30 AM QUALITY SYSTEMS SPECIALIST Gender Identity Female 10/06/2021 4:28 PM QUALITY SYSTEMS SPECIALIST Sexual Orientation Choose not to disclose 2020 4:28 PM QUALITY SYSTEMS SPECIALIST documented as of this encounter Plan [...] Diagnoses Diagnosis Atrial fibrillation, unspecified type (HCC) senior living current use of anticoagulant therapy documented in this encounter Care Teams Bookbinder Apprentice Relationship Specialty Start Date End Date Devaughn Macias MD PCP - General Family Medicine 01/31/20 01/13/22 documented as of this encounter
--- OUTSIDE RECORDS SUMMARY | 2024-10-22 14:53 | XMS_ITS | Encounter Summary ---
Author Organization [facility] Medical Group Address [address] [facility] [address] [place] [address] Care Team Providers Care Funeral Director Name Role Phone Kali Hunt MD Primary Care Provider [phone] Encounter Details Date Type Department Care Team (Latest Contact Info) Description 08/02/2019 Anticoagulation Visit [facility] [address] [facility] [address] [place] [address] Rosy White RN Paroxysmal atrial fibrillation (CMS/HCC); snf current use [...] on file Legal Sex Female 8:30 AM HEAD BOYS GOLF COACH Gender Identity Female 10/06/2021 4:28 PM HEAD BOYS GOLF COACH Sexual Orientation Choose not to disclose 2020 4:28 PM HEAD BOYS GOLF COACH documented as of this encounter Plan [...] Paroxysmal atrial fibrillation (CMS/HCC) (HCC) 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
--- OUTSIDE RECORDS SUMMARY | 2024-10-22 14:53 | XMS_ITS | Encounter Summary ---
Author Organization [facility] Healthcare Address [address] [place] [address] Care Team Providers Care Non Ferrous Material Handler Name Role Phone Devaughn Macias MD Primary Care Provider Reason for Visit * Diagnostic Imaging (Routine) - Closed Specialty Diagnoses / Procedures Referred By Lyndsey farmer Referred To Contact Diagnoses Left hip pain Primary osteoarthritis of left hip Procedures [place] Fluoro Guided Injection Hip Left Kami Lyons PA Phone: tel: fax: [address] [address] Referral ID Status Reason Start Date Expiration Date Visits Re quested Visits Authorized [id number] Closed 06/07/2020 07/07/2021 1 1 Encounter Details Date Type Department Care Team (Late st Contact Info) Description 06/26/2020 7:32 AM CDT - 06/26/2020 11:59 PM CDT Hospital Encounter [facility] [address] [place] [address] Herber Knott MD [address] [place] [address] [place] [address] [place] [address] Discharge Disposition: Discharge to home or self care Social History Tobacco Use Types Packs/Day Years Used Date Smoking Tobacco: Former Cigarettes Q uit: 09/28/1978 Smokeless Tobacco: Never Alcohol Use Standard Drinks/Week Comments Yes 0 (1 standard drink = 0.6 oz pur e alcohol) Comments Unknown Sex and Gender Information Value Date Recorded Sex Assigned at Not on file Legal Sex Female 8:30 AM INGOT SUPERVISOR Gender Identity Female 10/06/2021 4:28 PM INGOT SUPERVISOR Sexual Orientation Choose not to disclose 2020 4:28 PM INGOT SUPERVISOR documented as of this encounter Medications at [...] 12.8 9.5 - 13.0 sec [facility] INR 1.1 0.9 - 1.2 [facility] Comment: Interpretive data Oral anticoagulant therapeutic ranges: Venous thromboembolism prophylaxis or treatment: 2.0-3.0 CARDIOLOGY Standard range: 2.0-3.0 High-intensity range: 2.5-3.5 Refer to indication-specific guidelines for appropriate target ranges for prosthetic heart valve replacement. Current interpretive data was last revised on 2019. Blood specimen (specimen) 06/26/2020 8:31 AM CDT 06/26/2020 8:33 AM CDT us Kami BUSH LAB BLOOD ORDERABLE S Final Result [facility]) 1 [facility] Department [place] [address] documented in this encounter Visit Diagnoses Not [...] mg documented in this encounter Care Teams Non Ferrous Material Handler Relationship Specialty Start Date End Date Devaughn Macias MD PCP - General Family Medicine 01/31/20 01/13/22 documented as of this encounter
--- OUTSIDE RECORDS SUMMARY | 2024-10-22 14:53 | XMS_ITS | Encounter Summary ---
Author Organization [facility] Medical Group Address [address] [facility] [address] [place] [address] Care Team Providers Care Clinical Social Work Therapist Name Role Phone Kali Hunt MD Primary Care Provider Encounter Details Date Type Department Care Team (Late st Contact Info) Description 04/25/2019 Telephone [facility] [address] [facility] [address] [place] [address] Andrade Brown MD [facility] [place] [id number] Social History Tobacco Use Types Packs/Day Years Used Date Smoking Tobacco: Former Cigarettes Q uit: 09/28/1978 Smokeless Tobacco: Never Alcohol Use Standard Drinks/Week Comments Yes 0 (1 standard drink = 0.6 oz pur e alcohol) Comments Unknown Sex and Gender Information Value Date Recorded Sex Assigned at Not on file Legal Sex Female 8:30 AM TAX CREDIT LEASING CONSULTANT Gender Identity Female 10/06/2021 4:28 PM TAX CREDIT LEASING CONSULTANT Sexual Orientation Choose not to disclose 2020 4:28 PM TAX CREDIT LEASING CONSULTANT documented as of this encounter Ordered Prescriptions [...] warfarin 4 mg tabs. Gave reference #[id number] documented in this encounter Plan of Treatment [...] documented as of this encounter Care Teams Clinical Social Work Therapist Relationship Specialty Start Date End Date Kali Hunt MD [address] [place] [address] PCP - General Family Medicine 02/08/19 01/30/20 documented as of this encounter
--- OUTSIDE RECORDS SUMMARY | 2024-10-22 14:53 | XMS_ITS | Encounter Summary ---
Author Organization [facility] Medical Group Address [address] [facility] [address] [place] [address] Care Team Providers Care Multi Township Assessor Name Role Phone Devaughn Macias MD Primary Care Provider Reason for Visit * Reason Comments Follow-up Encounter Details Date Type Department Care Team (Latest Contact Info) Description 08/07/2020 10:15 AM CDT Office Visit [facility] Cardiology [address] [place] [address] Andrade Brown MD [facility] [place] [id number] PAD (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/HCC) (Primary Dx); 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 intermediate (current) use of anticoagulants [Z79.01] No bleeding [...] disease) (HCC)- Primary Unspecified peripheral vascular disease intermediate current use of anticoagulant therapy Paroxysmal atrial fibrillation (CMS/HCC) (HCC) Atrial fibrillation HTN (hypertension), benign Essential hypertension, benign documented in this encounter Care Teams Multi Township Assessor Relationship Specialty Start Date End Date Devaughn Macias MD PCP - General Family Medicine 01/31/20 01/13/22 documented as of this encounter
--- OUTSIDE RECORDS SUMMARY | 2024-10-22 14:53 | XMS_ITS | Encounter Summary ---
Author Organization [facility] Medical Group Address [address] [facility] [address] [place] [address] Care Team Providers Care Car Groomer Name Role Phone Kali Hunt MD Primary Care Provider [phone] Devaughn Macias MD Primary Care Provider Encounter Details Date Type Department Care Team (Late st Contact Info) Description 10/18/2019 Orders Only [facility] Health Information Management [address] [place] [address] Scanning, Provider Social History Tobacco Use Types Packs/Day Years Used Date Smoking Tobacco: Former Cigarettes Q uit: 09/28/1978 Smokeless Tobacco: Never Alcohol Use Standard Drinks/Week Comments Yes 0 (1 standard drink = 0.6 oz pur e alcohol) Comments Unknown Sex and Gender Information Value Date Recorded Sex Assigned at Not on file Legal Sex Female 8:30 AM IMPROVEMENT AUDITOR Gender Identity Female 10/06/2021 4:28 PM IMPROVEMENT AUDITOR Sexual Orientation Choose not to disclose 2020 4:28 PM IMPROVEMENT AUDITOR documented as of this encounter Plan of Treatment Not on file documented as of this encounter Procedures Procedure Name Priority Date/Time Associated Diagnosis Comments SCAN - LABS 10/18/2019 documented in this encounter Results * SCAN - LABS (10/18/2019) us Provider Scanning Final Result documented in this encounter Visit Diagnoses Not on filedocumented in this encounter Care Teams Car Groomer Relationship Specialty Start Date End Date Kali Hunt MD [address] [place] [address] PCP - General Family Medicine 02/08/19 01/30/20 Devaughn Macias MD [address] [place] [address] PCP - General Family Medicine 01/31/20 01/13/22 documented as of this encounter
--- OUTSIDE RECORDS SUMMARY | 2024-10-22 14:53 | XMS_ITS | Encounter Summary ---
Author Organization [facility] Medical Group Address [address] [address] Care Team Providers Care Terrazzo Layer Name Role Phone Devaughn Macias MD Primary Care Provider Reason for Referral * Diagnostic Imaging (Routine) - Closed Specialty Diagnoses / Procedures Referred By Contac t Referred To Contact Diagnoses Left hip pain Primary osteoarthritis of left hip Procedures FL Fluoro Guided Injection Hip Left Kami Lyons PA Phone: tel: fax: [address] [address] Referral ID Status Reason Start Date Expiration Date Visits Re quested Visits Authorized [id number] Closed 06/07/2020 07/07/2021 1 1 * Diagnostic Imaging (Routine) - Closed Specialty Diagnoses / Procedures Referred By Contac t Referred To Contact Diagnoses Left hip pain Procedures XR Hip Left 2 or 3 Views Kami Lyons PA Phone: tel: fax: Referral ID Status Reason Start Date Expiration Date Visits Re quested Visits Authorized [id number] Closed 06/07/2020 07/07/2021 1 1 Reason for Visit * Reason Comments Pain Encounter Details Date Type Department Care Team (Late st Contact Info) Description 06/07/2020 1:30 PM CDT Office Visit [facility] Orthopedics and Sports Medicine [address] [place] [address] [place] [address] [place] [address] [place] [address] Primary osteoarthritis of left hip (Primary Dx); [...] on file Legal Sex Female 8:30 AM TOURIST CAMP ATTENDANT Gender Identity Female 10/06/2021 4:28 PM TOURIST CAMP ATTENDANT Sexual Orientation Choose not to disclose 2020 4:28 PM TOURIST CAMP ATTENDANT documented as of this encounter Last [...] hip to be done under fluoro at [facility]. She may return to clinic in 3 [...] was obtained. ??Prior to beginning the procedure, Calypso Protocol was performed to confirm the patient's [...] was obtained. Prior to beginning the procedure, Calypso Protocol was performed to confirm the patient's [...] thigh documented in this encounter Care Teams Terrazzo Layer Relationship Specialty Start Date End Date Devaughn Macias MD PCP - General Family Medicine 01/31/20 01/13/22 documented as of this encounter
--- OUTSIDE RECORDS SUMMARY | 2024-10-22 14:54 | XMS_ITS | Encounter Summary ---
Author Organization [facility] Address [address] [facility] [address] [place] [address] Care Team Providers Care Chief Librarian Branch Name Role Phone Priscilla Barrera MD Primary Care Provider [phone] Reason for Visit * Reason Comments Atrial Fibrillation Peripheral Artery Disease Hypertension Hyperlipidemia 6 mo f/u Encounter Details Date Type Department Care Team (Latest Contact Info) Description 10/13/2017 9:30 AM DIRECTOR SPECIALTY Office Visit [facility] [address] [facility] [address] [place] [address] Andrade Brown MD [facility] [place] [id number] Left carotid bruit (Primary Dx); PAD (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/HCC); 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; 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 [...] file Legal Sex Female 8:30 AM DIRECTOR SPECIALTY Gender Identity Female 10/06/2021 4:28 PM DIRECTOR SPECIALTY Sexual Orientation Choose not to disclose 2020 4:28 PM DIRECTOR SPECIALTY documented as of this encounter Last Filed Vital Signs Vital Sign Reading Time Taken Comments Blood Pressure 126/74 10/13/2017 9:12 AM DIRECTOR SPECIALTY Pulse 64 10/13/2017 9:12 AM DIRECTOR SPECIALTY Temperature - - Respiratory Rate - - Oxygen Saturation 97% 10/13/2017 9:12 AM DIRECTOR SPECIALTY Inhaled Oxygen Concentration - - Weight 92.1 kg (203 lb) 10/13/2017 9:12 AM DIRECTOR SPECIALTY Height 167.6 cm (5' 6 ) 10/13/2017 9:12 AM DIRECTOR SPECIALTY Body Mass Index 32.77 10/13/2017 9:12 AM DIRECTOR SPECIALTY documented in this encounter Ordered Prescriptions Prescription [...] or sooner asclinically indicated. 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 goal <100 Other and unspecified hyperlipidemia HTN (hypertension), benign Essential hypertension, benign Paroxysmal atrial fibrillation (CMS/HCC) (HCC) Atrial fibrillation documented in this encounter Discontinued Medications Medication Sig Discontinue Reason Start Date End Da te warfarin (COUMADIN) 4 mg tablet TAKE 1 TABLET BY MOUTH DAILY Reorder 09/30/2017 10/13/2017 documented as of this encounter Care Teams Chief Librarian Branch Relationship Specialty Start Date End Date Priscilla Barrera MD [address] [place] [address] PCP - General 01/08/17 02/07/19 documented as of this encounter
--- OUTSIDE RECORDS SUMMARY | 2024-10-22 14:54 | XMS_ITS | Encounter Summary ---
Author Organization [facility] Medical Group Address [address] [facility] [address] [place] [address] Care Team Providers Care Thread Twister Name Role Phone Priscilla Barrera MD Primary Care Provider [phone] Encounter Details Date Type Department Care Team (Late st Contact Info) Description 04/27/2018 Telephone [facility] [address] [place] [address] [address] [place] [address] Andrade Brown MD [facility] [place] [address] Social History Tobacco Use Types Packs/Day Years Used Date Smoking Tobacco: Former Smokeless Tobacco: Never Alcohol Use Standard Drinks/Week Comments Yes 0 (1 standard drink = 0.6 oz pur e alcohol) Comments Unknown Sex and Gender Information Value Date Recorded Sex Assigned at Not on file Legal Sex Female 8:30 AM FIBREGLASS GUN HAND Gender Identity Female 10/06/2021 4:28 PM FIBREGLASS GUN HAND Sexual Orientation Choose not to disclose 2020 4:28 PM FIBREGLASS GUN HAND documented as of this encounter Miscellaneous Notes * Telephone Encounter - Jacque Herrera RN - 04/27/2018 12:04 PM CDT Called patient with INR result. States that [facility] never received standing order. Order refaxed to [facility] [phone]. documented in this encounter Plan of Treatment Not on file documented as of this encounter Visit Diagnoses Not on filedocumented in this encounter Care Teams Thread Twister Relationship Specialty Start Date End Date Priscilla Barrera MD [address] [place] [address] PCP - General 01/08/17 02/07/19 documented as of this encounter
--- OUTSIDE RECORDS SUMMARY | 2024-10-22 14:54 | XMS_ITS | Encounter Summary ---
Author Organization [facility] Medical Group Address [address] [facility] [address] [place] [address] Care Team Providers Care Cost Analyst Name Role Phone Kali Hunt MD Primary Care Provider [phone] Reason for Visit * Reason Comments Atrial Fibrillation Encounter Details Date Type Department Care Team ([facility] Contact Info) Description 03/01/2019 11:00 AM CDT Office Visit [facility] [address] [facility] [address] [place] [address] Kath Byrd, [place] [address] [facility] [address] [place] [address] Paroxysmal atrial fibrillation (CMS/HCC) (Primary [...] file Legal Sex Female 8:30 AM OIL PIPELINE OPERATOR Gender Identity Female 10/06/2021 4:28 PM OIL PIPELINE OPERATOR Sexual Orientation Choose not to disclose 2020 4:28 PM OIL PIPELINE OPERATOR documented as of this encounter Last [...] this encounter Progress Notes * Kath Byrd, BUSINESS OBJECTS CONSULTANT - 03/01/2019 11:00 AM CDT Patient ID: [...] follow with [facility]. Brown [facility]. 2. Hypertension 3. Long-term use of anticoagulant [...] * ECG 12 lead (03/01/2019) Kath Byrd BUSINESS OBJECTS CONSULTANT ECG ORDERABLES Edited Res ult - Final documented in this encounter Visit Diagnoses Diagnosis Paroxysmal atrial fibrillation (CMS/HCC) (HCC)- Primary Atrial fibrillation documented in this encounter Care Teams Cost Analyst Relationship Specialty Start Date End Date Kali Hunt MD [address] [place] [address] PCP - General Family Medicine 02/08/19 01/30/20 documented as of this encounter
--- OUTSIDE RECORDS SUMMARY | 2024-10-22 14:54 | XMS_ITS | Encounter Summary ---
Author Organization [facility] Medical Group Address [address] [facility] [address] [place] [address] Care Team Providers Care Gang Drill Operator Name Role Phone Priscilla Barrera MD Primary Care Provider [phone] Encounter Details Date Type Department Care Team (Latest Contact Info) Description 11/02/2018 Anticoagulation Visit [facility] [address] [facility] [address] [place] [address] Andrade Brown MD [facility] [place] [address] Paroxysmal atrial fibrillation (CMS/HCC); care home current use of anticoagulant therapy Social History Tobacco Use Types Packs/Day Years Used Date Smoking Tobacco: Former Smokeless Tobacco: Never Alcohol Use Standard Drinks/Week Comments Yes 0 (1 standard drink = 0.6 oz pur e alcohol) Comments Unknown Sex and Gender Information Value Date Recorded Sex Assigned at Not on file Legal Sex Female 8:30 AM BUSINESS AND MARKETING TEACHER Gender Identity Female 10/06/2021 4:28 PM BUSINESS AND MARKETING TEACHER Sexual Orientation Choose not to disclose 2020 4:28 PM BUSINESS AND MARKETING TEACHER documented as of this encounter Plan [...] therapy documented in this encounter Care Teams Gang Drill Operator Relationship Specialty Start Date End Date Priscilla Barrera MD [address] [place] [address] PCP - General 01/08/17 02/07/19 documented as of this encounter
--- OUTSIDE RECORDS SUMMARY | 2024-10-22 14:54 | XMS_ITS | Encounter Summary ---
Author Organization [facility] Medical Group Address [address] [facility] [address] [place] [address] Care Team Providers Care Manager Skilled Name Role Phone Priscilla Barrera MD Primary Care Provider [phone] Encounter Details Date Type Department Care Team (Latest Contact Info) Description 06/01/2018 Anticoagulation Visit [facility] [address] [facility] [address] [place] [address] Andrade Brown MD [facility] [place] [address] Paroxysmal atrial fibrillation (CMS/HCC); [facility] current use of anticoagulant therapy Social History Tobacco Use Types Packs/Day Years Used Date Smoking Tobacco: Former Smokeless Tobacco: Never Alcohol Use Standard Drinks/Week Comments Yes 0 (1 standard drink = 0.6 oz pur e alcohol) Comments Unknown Sex and Gender Information Value Date Recorded Sex Assigned at Not on file Legal Sex Female 8:30 AM MANAGER INTERFACE Gender Identity Female 10/06/2021 4:28 PM MANAGER INTERFACE Sexual Orientation Choose not to disclose 2020 4:28 PM MANAGER INTERFACE documented as of this encounter Plan of [...] documented in this encounter Care Teams Manager Skilled Relationship Specialty Start Date End Date Priscilla Barrera MD [address] [place] [address] PCP - General 01/08/17 02/07/19 documented as of this encounter
--- OUTSIDE RECORDS SUMMARY | 2024-10-22 14:54 | XMS_ITS | Encounter Summary ---
Author Organization [facility] Medical Group Address [address] [facility] [address] [place] [address] Care Team Providers Care Chalk Machine Operator Name Role Phone Priscilla Barrera MD Primary Care Provider Encounter Details Date Type Department Care Team (Latest Contact Info) Description 09/21/2018 Anticoagulation Visit [facility] [address] [facility] [address] [place] [address] Andrade Brown MD [facility] [place] [address] Paroxysmal atrial fibrillation (CMS/HCC); [facility] current use of anticoagulant therapy Social History Tobacco Use Types Packs/Day Years Used Date Smoking Tobacco: Former Smokeless Tobacco: Never Alcohol Use Standard Drinks/Week Comments Yes 0 (1 standard drink = 0.6 oz pur e alcohol) Comments Unknown Sex and Gender Information Value Date Recorded Sex Assigned at Not on file Legal Sex Female 8:30 AM SPEEDER MACHINE OPERATOR Gender Identity Female 10/06/2021 4:28 PM SPEEDER MACHINE OPERATOR Sexual Orientation Choose not to disclose 2020 4:28 PM SPEEDER MACHINE OPERATOR documented as of this encounter [...] therapy documented in this encounter Care Teams Chalk Machine Operator Relationship Specialty Start Date End Date Priscilla Barrera MD [address] [place] [address] PCP - General 01/08/17 02/07/19 documented as of this encounter
--- OUTSIDE RECORDS SUMMARY | 2024-10-22 14:54 | XMS_ITS | Encounter Summary ---
Author Organization [facility] Healthcare Address [address] [place] [address] Care Team Providers Care Gum Puller Name Role Phone Priscilla Barrera MD Primary Care Provider [phone] Kali Hunt MD Primary Care Provider [phone] Devaughn Macias MD Primary Care Provider Denis Platt MD Primary Care Provide r Gideon Campbell MD Primary Care Provider [phone] Encounter Details Date Type Department Care Team (Late st Contact Info) Description 12/15/2017 Orders Only [facility] Health Information Management [address] [place] [address] Scanning, Provider Social History Tobacco Use Types Packs/Day Years Used Date Smoking Tobacco: Former Smokeless Tobacco: Never Alcohol Use Standard Drinks/Week Comments Yes 0 (1 standard drink = 0.6 oz pur e alcohol) Comments Unknown Sex and Gender Information Value Date Recorded Sex Assigned at Not on file Legal Sex Female 8:30 AM 911 DISPATCHER Gender Identity Female 10/06/2021 4:28 PM 911 DISPATCHER Sexual Orientation Choose not to disclose 2020 4:28 PM 911 DISPATCHER documented as of this encounter Plan of Treatment Not on file documented as of this encounter Procedures Procedure Name Priority Date/Time Associated Diagnosis Comments SCAN - RADIOLOGY/IMAGING 12/18/2017 1:20 AM 911 DISPATCHER documented in this encounter Results * SCAN - RADIOLOGY/IMAGING (12/18/2017 1:20 AM 911 DISPATCHER) Anatomical Region Laterality Modality Other us Provider Scanning Edited Result - Final documented in this encounter Visit Diagnoses Not on filedocumented in this encounter Care Teams Gum Puller Relationship Specialty Start Date End Date Priscilla Barrera MD [address] [place] [address] PCP - General 01/08/17 02/07/19 Kali Hunt MD [address] [place] [address] PCP - General Family Medicine 02/08/19 01/30/20 Devaughn Macias MD [address] [place] [address] PCP - General Family Medicine 01/31/20 01/13/22 Denis Platt MD [address] [place] [address] PCP - General Family Medicine 01/14/22 07/18/23 Gideon Campbell MD [address] [place] [address] [address] [place] [address] PCP - General Family Medicine 07/19/23 documented as of this encounter
--- OUTSIDE RECORDS SUMMARY | 2024-10-22 14:54 | XMS_ITS | Encounter Summary ---
Author Organization [facility] Address [address] [facility] [address] [place] [address] Care Team Providers Care Rn New Graduate Name Role Phone Priscilla Barrera MD Primary Care Provider [phone] Encounter Details Date Type Department Care Team (Latest Contact Info) Description 11/05/2017 Anticoagulation Visit [facility] [address] [facility] [address] [place] [phone] Andrade Brown MD [facility] [place] [address] Paroxysmal atrial fibrillation (CMS/HCC); senior living current use of anticoagulant therapy Social History Tobacco Use Types Packs/Day Years Used Date Smoking Tobacco: Former Smokeless Tobacco: Never Alcohol Use Standard Drinks/Week Comments Yes 0 (1 standard drink = 0.6 oz pur e alcohol) Comments Unknown Sex and Gender Information Value Date Recorded Sex Assigned at Not on file Legal Sex Female 8:30 AM MEDIA ASSOCIATE Gender Identity Female 10/06/2021 4:28 PM MEDIA ASSOCIATE Sexual Orientation Choose not to disclose 2020 4:28 PM MEDIA ASSOCIATE documented as of this encounter Plan [...] documented in this encounter Care Teams Rn New Graduate Relationship Specialty Start Date End Date Priscilla Barrera MD [address] [place] [address] PCP - General 01/08/17 02/07/19 documented as of this encounter
--- OUTSIDE RECORDS SUMMARY | 2024-10-22 14:54 | XMS_ITS | Encounter Summary ---
Author Organization [facility] Address [address] [facility] [address] [place] [address] Care Team Providers Care Punch Card Operator Name Role Phone Priscilla Barrera MD Primary Care Provider [phone] Encounter Details Date Type Department Care Team (Latest Contact Info) Description 08/10/2018 Anticoagulation Visit [facility] [address] [facility] [address] [place] [address] Andrade Brown MD [facility] [place] [address] Paroxysmal atrial fibrillation (CMS/HCC); correction current use of anticoagulant therapy Social History Tobacco Use Types Packs/Day Years Used Date Smoking Tobacco: Former Smokeless Tobacco: Never Alcohol Use Standard Drinks/Week Comments Yes 0 (1 standard drink = 0.6 oz pur e alcohol) Comments Unknown Sex and Gender Information Value Date Recorded Sex Assigned at Not on file Legal Sex Female 8:30 AM BUTTONHOLER Gender Identity Female 10/06/2021 4:28 PM BUTTONHOLER Sexual Orientation Choose not to disclose 2020 4:28 PM BUTTONHOLER documented as of this encounter Plan of [...] therapy documented in this encounter Care Teams Punch Card Operator Relationship Specialty Start Date End Date Priscilla Barrera MD [address] [place] [address] PCP - General 01/08/17 02/07/19 documented as of this encounter
--- OUTSIDE RECORDS SUMMARY | 2024-10-22 14:54 | XMS_ITS | Encounter Summary ---
Author Organization [facility] Address [address] [facility] [address] [place] [address] Care Team Providers Care Intranet Support Name Role Phone Priscilla Barrera MD Primary Care Provider Encounter Details Date Type Department Care Team (Late st Contact Info) Description 04/07/2018 Telephone [facility] [address] [address] Andrade Brown MD [address] [place], [place] [address] Social History Tobacco Use Types Packs/Day Years Used Date Smoking Tobacco: Former Smokeless Tobacco: Never Alcohol Use Standard Drinks/Week Comments Yes 0 (1 standard drink = 0.6 oz pur e alcohol) Comments Unknown Sex and Gender Information Value Date Recorded Sex Assigned at Not on file Legal Sex Female 8:30 AM BOILER TECHNICIAN Gender Identity Female 10/06/2021 4:28 PM BOILER TECHNICIAN Sexual Orientation Choose not to disclose 2020 4:28 PM BOILER TECHNICIAN documented as of this encounter Miscellaneous Notes * Telephone Encounter - Nalini Zazueta RN - 04/07/2018 10:01 AM CDT Faxed standing order for PT/INR to [facility]. * Telephone Encounter - Yudelka Marie - 04/07/2018 9:42 AM CDT Needs new standing orders for blood work sent to [facility] lab. documented in this encounter Plan of Treatment Not on file documented as of this encounter Visit Diagnoses Not on filedocumented in this encounter Care Teams Intranet Support Relationship Specialty Start Date End Date Priscilla Barrera MD [address] [place] [address] PCP - General 01/08/17 02/07/19 documented as of this encounter
--- OUTSIDE RECORDS SUMMARY | 2024-10-22 14:54 | XMS_ITS | Encounter Summary ---
Author Organization [facility] Address [address] [facility] [address] [place] [address] Care Team Providers Care Legal Biller Name Role Phone Priscilla Barrera MD Primary Care Provider [phone] Encounter Details Date Type Department Care Team (Late st Contact Info) Description 02/04/2018 Telephone [facility] [address] [address] [address] [place] [address] Andrade Brown MD [facility] [place] [address] Social History Tobacco Use Types Packs/Day Years Used Date Smoking Tobacco: Former Smokeless Tobacco: Never Alcohol Use Standard Drinks/Week Comments Yes 0 (1 standard drink = 0.6 oz pur e alcohol) Comments Unknown Sex and Gender Information Value Date Recorded Sex Assigned at Not on file Legal Sex Female 8:30 AM SALES ACCOUNT ASSOCIATE Gender Identity Female 10/06/2021 4:28 PM SALES ACCOUNT ASSOCIATE Sexual Orientation Choose not to disclose 2020 4:28 PM SALES ACCOUNT ASSOCIATE documented as of this encounter Miscellaneous [...] back number is and reference # is [id number] documented in this encounter Plan of Treatment Not on file documented as of this encounter Visit Diagnoses Not on filedocumented in this encounter Care Teams Legal Biller Relationship Specialty Start Date End Date Priscilla Barrera MD [address] [place] [address] PCP - General 01/08/17 02/07/19 documented as of this encounter
--- OUTSIDE RECORDS SUMMARY | 2024-10-22 14:54 | XMS_ITS | Encounter Summary ---
Author Organization [facility] Care Team Providers Care Creel Cleaner Name Role Phone Kali Hunt MD Primary Care Provider [phone] Encounter Details Date Type Department Care Team [...] on file Legal Sex Female 8:30 AM CHAIRMAN Gender Identity Female 10/06/2021 4:28 PM CHAIRMAN Sexual Orientation Choose not to disclose 2020 4:28 PM CHAIRMAN documented as of this encounter Plan of Treatment Not on file documented as of this encounter Visit Diagnoses Not on filedocumented in this encounter Care Teams Creel Cleaner Relationship Specialty Start Date End Date Kali Hunt MD [address] [address] PCP - General Family Medicine 02/08/19 01/30/20 documented as of this encounter
--- OUTSIDE RECORDS SUMMARY | 2024-10-22 14:54 | XMS_ITS | Encounter Summary ---
Author Organization [facility] Address [address] [facility] [address] [place] [address] Care Team Providers Care Internal Medicine Nurse Name Role Phone Kali Hunt MD Primary Care Provider [phone] Encounter Details Date Type Department Care Team (Latest Contact Info) Description 04/12/2019 Anticoagulation Visit [facility] [address] [place] [address] Andrade Brown MD [address] [place] [address] Paroxysmal atrial fibrillation (CMS/HCC); half-way current use of anticoagulant therapy Social History Tobacco Use Types Packs/Day Years Used Date Smoking Tobacco: Former Cigarettes Q uit: 09/28/1978 Smokeless Tobacco: Never Alcohol Use Standard Drinks/Week Comments Yes 0 (1 standard drink = 0.6 oz pur e alcohol) Comments Unknown Sex and Gender Information Value Date Recorded Sex Assigned at Not on file Legal Sex Female 8:30 AM CLIENT SUPPORT ADMINISTRATOR Gender Identity Female 10/06/2021 4:28 PM CLIENT SUPPORT ADMINISTRATOR Sexual Orientation Choose not to disclose 2020 4:28 PM CLIENT SUPPORT ADMINISTRATOR documented as of this encounter Plan of Treatment Not on file documented as of this encounter Procedures Procedure Name Priority Date/Time Associated Diagnosis Comments PROTIME-INR Routine 04/12/2019 documented in this encounter Results * (ABNORMAL) Protime-INR (04/12/2019) INR 2.50(A) 0.9 - 1.1 EXTERNAL LAB Blood specimen (specimen) us [facility] Provider LAB BLOOD ORDERABLES Noris l Result EXTERNAL LAB documented in this encounter Visit Diagnoses Diagnosis Paroxysmal atrial fibrillation (CMS/HCC) (HCC) Atrial fibrillation half-way current use of anticoagulant therapy documented in this encounter Care Teams Internal Medicine Nurse Relationship Specialty Start Date End Date Kali Hunt MD [address] [address] PCP - General Family Medicine 02/08/19 01/30/20 documented as of this encounter
--- OUTSIDE RECORDS SUMMARY | 2024-10-22 14:54 | XMS_ITS | Encounter Summary ---
Author Organization [facility] Address [address] [facility] [address] [place] [address] Care Team Providers Care Privacy Director Name Role Phone Priscilla Barrera MD Primary Care Provider [phone] Encounter Details Date Type Department Care Team (Late st Contact Info) Description 11/26/2017 Telephone [facility] [address] [facility] [address] [address] Oracio Love MD [address] [facility] [address] [place] [address] Social History Tobacco Use Types Packs/Day Years Used Date Smoking Tobacco: Former Smokeless Tobacco: Never Alcohol Use Standard Drinks/Week Comments Yes 0 (1 standard drink = 0.6 oz pur e alcohol) Comments Unknown Sex and Gender Information Value Date Recorded Sex Assigned at Not on file Legal Sex Female 8:30 AM DOOR MACHINE OPERATOR Gender Identity Female 10/06/2021 4:28 PM DOOR MACHINE OPERATOR Sexual Orientation Choose not to disclose 2020 4:28 PM DOOR MACHINE OPERATOR documented as of this encounter Miscellaneous Notes * Telephone Encounter - Caitlyn Li - 11/26/2017 12:54 PM CST SUBHASH - Kath out of the office on 02/17/18 & need to r/s MACHINE OPERATOR documented in this encounter Plan of Treatment Not on file documented as of this encounter Visit Diagnoses Not on filedocumented in this encounter Care Teams Privacy Director Relationship Specialty Start Date End Date Priscilla Barrera MD [address] [place] [address] PCP - General 01/08/17 02/07/19 documented as of this encounter
--- OUTSIDE RECORDS SUMMARY | 2024-10-22 14:54 | XMS_ITS | Encounter Summary ---
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 Social History Tobacco Use Types Packs/Day Years Used Date Smoking Tobacco: Former Smokeless Tobacco: Never Alcohol Use Standard Drinks/Week Comments Yes 0 (1 standard drink = 0.6 oz pur e alcohol) Comments Unknown Sex and Gender Information Value Date Recorded Sex Assigned at Not on file Legal Sex Female 8:30 AM ACID PLANT HELPER Gender Identity Female 10/06/2021 4:28 PM ACID PLANT HELPER Sexual Orientation Choose not to disclose 2020 4:28 PM ACID PLANT HELPER documented as of this encounter Plan [...] therapy documented in this encounter Care Teams Airline Managerial Supervisor Relationship Specialty Start Date End Date Priscilla Barrera MD [address] [place] [address] PCP - General 01/08/17 02/07/19 documented as of this encounter
--- OUTSIDE RECORDS SUMMARY | 2024-10-22 14:54 | XMS_ITS | Encounter Summary ---
Author Organization [facility] Address [address] [facility] [address] [place] [address] Care Team Providers Care Caseworker Intake Name Role Phone Priscilla Barrera MD Primary Care Provider [phone] Reason for Visit * Reason Comments Atrial Fibrillation Encounter Details Date Type Department Care Team (Late st Contact Info) Description 02/23/2018 2:00 PM CDT Office Visit [facility] Center [address] [facility] [address] [place] [address] Kath Byrd, [place] [address] [facility] [address] [place] [address] Paroxysmal atrial fibrillation (CMS/HCC) (Primary [...] file Legal Sex Female 8:30 AM MACHINE BASTER Gender Identity Female 10/06/2021 4:28 PM MACHINE BASTER Sexual Orientation Choose not to disclose 2020 4:28 PM MACHINE BASTER documented as of this encounter Last Filed [...] not included. Patient Education A-fib (Atrial Fibrillation) WIND TURBINE BLADE REPAIR TECHNICIAN: Atrial fibrillation (a-fib) is an irregular heartbeat. [...] in your arm or leg. Contact your research attorney or healthcare provider if: ?? Your target [...] plan for you. Follow up with your research attorney as directed: You will need regular blood tests and monitoring. Write down your questions so you remember to ask them during your visits. ?? 2016 [employer] (acquired by [employer]). Information is for End User's use only and may not be sold, redistributed or otherwise used for commercial purposes. All illustrations and images included in CareNotes?? are the copyrighted property of [employer]. or [employer]. The above information is an manager medicaid only. It is not intended as medical advice for individual conditions or treatments. Talk to your doctor, nurse or pharmacist before following any medical regimen to see if it is safe and effective for you. documented in this encounter Progress Notes * Kath Byrd NP - 02/23/2018 2:00 PM CDT [facility] Arrhythmia Center [address] [place] [address], [address] [address] Patient Name: Quin Talley Date of : 1935 Primary Physician: Priscilla Barrera MD This note was dictated with voice-recognition software, and thoracic medicine specialist errors may be present. Subjective/Objective Patient ID: Quin Talley is a 82 y.o. female Chief Complaint Atrial Fibrillation HPI Ms. Talley presented to the [facility] Arrhythmia Center on 02/23/2018, for [...] is recommended that he remain anticoagulated for thromboprophylaxis.[id number]. Kath Byrd NP 02/23/2018 documented in this [...] is recommended that he remain anticoagulated for thromboprophylaxis.[id number]. documented in this encounter Plan of Treatment [...] documented as of this encounter Care Teams Caseworker Intake Relationship Specialty Start Date End Date Priscilla Barrera MD [facility] [place] [address] [place] [address] PCP - General 01/08/17 02/07/19 documented as of this encounter
--- OUTSIDE RECORDS SUMMARY | 2024-10-22 14:54 | XMS_ITS | Encounter Summary ---
Author Organization [facility] Address [address] [facility] [address] [place] [address] Care Team Providers Care Online Facilitator Name Role Phone Priscilla Barrera MD Primary Care Provider [phone] Encounter Details Date Type Department Care Team (Latest Contact Info) Description 01/12/2018 Anticoagulation Visit [facility] [address] [facility] [address] [place] [address] Andrade Brown MD [facility] [place] [address] Paroxysmal atrial fibrillation (CMS/HCC); halfway current use of anticoagulant therapy Social History Tobacco Use Types Packs/Day Years Used Date Smoking Tobacco: Former Smokeless Tobacco: Never Alcohol Use Standard Drinks/Week Comments Yes 0 (1 standard drink = 0.6 oz pur e alcohol) Comments Unknown Sex and Gender Information Value Date Recorded Sex Assigned at Not on file Legal Sex Female 8:30 AM LEAD TRAINER Gender Identity Female 10/06/2021 4:28 PM LEAD TRAINER Sexual Orientation Choose not to disclose 2020 4:28 PM LEAD TRAINER documented as of this encounter Plan [...] therapy documented in this encounter Care Teams Online Facilitator Relationship Specialty Start Date End Date Priscilla Barrera MD [address] [place] [address] PCP - General 01/08/17 02/07/19 documented as of this encounter
--- OUTSIDE RECORDS SUMMARY | 2024-10-22 14:54 | XMS_ITS | Encounter Summary ---
Author Organization [facility] Address [address] [facility] [address] [place] [address] Care Team Providers Care Squadron Worker Name Role Phone Kali Hunt MD Primary Care Provider [phone] Reason for Visit * Reason Comments Atrial Fibrillation Hyperlipidemia Peripheral Artery Disease Carotid Artery Disease 6 mo f/u Encounter Details Date Type Department Care Team (Latest Contact Info) Description 02/08/2019 10:15 AM CDT Office Visit [facility] [address] [facility] [address] [place] [address] Andrade Brown MD [facility] [address] PAD (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/HCC) (Primary Dx); Paroxysmal atrial fibrillation (CMS/HCC); HTN (hypertension), benign; longterm current use of anticoagulant therapy; 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 [...] PVI ablation x2 with recent success 3. longterm (current) use of anticoagulants [Z79.01] No bleeding [...] Andrade Brown MD, [facility] documented in this encounter Plan of Treatment Not on file documented as of this encounter Visit Diagnoses Diagnosis PAD (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) (HCC)- Primary Unspecified peripheral vascular disease Paroxysmal atrial fibrillation (CMS/HCC) (HCC) Atrial fibrillation HTN (hypertension), benign Essential hypertension, benign traffic counter current use of anticoagulant therapy 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 goal <100 Other and unspecified hyperlipidemia documented in this encounter Discontinued Medications Medication Sig Discontinue Reason Start Date End Da te warfarin (COUMADIN) 4 mg tablet TAKE 1 TABLET BY MOUTH DAILY Duplicate order 01/30/2019 02/08/2019 documented as of this encounter Care Teams Squadron Worker Relationship Specialty Start Date End Date Kali Hunt MD [address] [place] [place] [address] PCP - General Family Medicine 02/08/19 01/30/20 documented as of this encounter
--- OUTSIDE RECORDS SUMMARY | 2024-10-22 14:54 | XMS_ITS | Encounter Summary ---
Author Organization [facility] Address [address] [facility] [address] [place] [address] Care Team Providers Care Junior High School Teacher Name Role Phone Priscilla Barrera MD Primary Care Provider [phone] Encounter Details Date Type Department Care Team (Latest Contact Info) Description 03/24/2018 Anticoagulation Visit [facility] [address] [facility] [address] [place] [address] Andrade Brown MD [facility] [place] [address] Paroxysmal atrial fibrillation (CMS/HCC); [facility] current use of anticoagulant therapy Social History Tobacco Use Types Packs/Day Years Used Date Smoking Tobacco: Former Smokeless Tobacco: Never Alcohol Use Standard Drinks/Week Comments Yes 0 (1 standard drink = 0.6 oz pur e alcohol) Comments Unknown Sex and Gender Information Value Date Recorded Sex Assigned at Not on file Legal Sex Female 8:30 AM BEAN WEIGHER Gender Identity Female 10/06/2021 4:28 PM BEAN WEIGHER Sexual Orientation Choose not to disclose 2020 4:28 PM BEAN WEIGHER documented as of this encounter Plan [...] Paroxysmal atrial fibrillation (CMS/HCC) (HCC) Atrial fibrillation [facility] current use of anticoagulant therapy documented in this encounter Care Teams Junior High School Teacher Relationship Specialty Start Date End Date Priscilla Barrera MD [address] [place] [address] PCP - General 01/08/17 02/07/19 documented as of this encounter
--- OUTSIDE RECORDS SUMMARY | 2024-10-22 14:54 | XMS_ITS | Encounter Summary ---
Author Organization [facility] Address [address] [facility] [address] [place] [address] Care Team Providers Care Farmworker Fur Name Role Phone Priscilla Barrera MD Primary Care Provider [phone] Kali Hunt MD Primary Care Provider [phone] Devaughn Macias MD Primary Care Provider Encounter Details Date Type Department Care Team (Latest Contact Info) Description 12/10/2017 Anticoagulation Visit [facility] [address] [address] Andrade Brown MD [address] [place] [address] Paroxysmal 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 (CMS/HCC); 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 Social History Tobacco Use Types Packs/Day Years Used Date Smoking Tobacco: Former Smokeless Tobacco: Never Alcohol Use Standard Drinks/Week Comments Yes 0 (1 standard drink = 0.6 oz pur e alcohol) Comments Unknown Sex and Gender Information Value Date Recorded Sex Assigned at Not on file Legal Sex Female 8:30 AM APPLICATION ARCHITECT Gender Identity Female 10/06/2021 4:28 PM APPLICATION ARCHITECT Sexual Orientation Choose not to disclose 2020 4:28 PM APPLICATION ARCHITECT documented as of this encounter Plan [...] atrial fibrillation (CMS/HCC) (HCC) Atrial fibrillation 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 documented in this encounter Care Teams Farmworker Fur Relationship Specialty Start Date End Date Priscilla Barrera MD [address] [place] [address] PCP - General 01/08/17 02/07/19 Kali Hunt MD [facility] [place] [address] PCP - General Family Medicine 02/08/19 01/30/20 Devaughn Macias MD [facility] [place] [address] PCP - General Family Medicine 01/31/20 01/13/22 documented as of this encounter
--- OUTSIDE RECORDS SUMMARY | 2024-10-22 14:54 | XMS_ITS | Encounter Summary ---
Author Organization [facility] Address [address] [facility] [address] [place] [address] Care Team Providers Care Environmental Assistant Name Role Phone Priscilla Barrera MD Primary Care Provider [phone] Encounter Details Date Type Department Care Team (Latest Contact Info) Description 01/18/2019 Anticoagulation Visit [facility] [address] [facility] [address] [place] [phone] Andrade Brown MD [facility] [place] [address] Paroxysmal atrial fibrillation (CMS/HCC); nursing home current use of anticoagulant therapy Social History Tobacco Use Types Packs/Day Years Used Date Smoking Tobacco: Former Smokeless Tobacco: Never Alcohol Use Standard Drinks/Week Comments Yes 0 (1 standard drink = 0.6 oz pur e alcohol) Comments Unknown Sex and Gender Information Value Date Recorded Sex Assigned at Not on file Legal Sex Female 8:30 AM TAPE CUTTING MACHINE OPERATOR Gender Identity Female 10/06/2021 4:28 PM TAPE CUTTING MACHINE OPERATOR Sexual Orientation Choose not to disclose 2020 4:28 PM TAPE CUTTING MACHINE OPERATOR documented as of this encounter [...] therapy documented in this encounter Care Teams Environmental Assistant Relationship Specialty Start Date End Date Priscilla Barrera MD [address] [place] [address] PCP - General 01/08/17 02/07/19 documented as of this encounter
--- OUTSIDE RECORDS SUMMARY | 2024-10-22 14:54 | XMS_ITS | Encounter Summary ---
Author Organization [facility] Address [address] [facility] [facility] [address] [place] [address] Care Team Providers Care Marine Architect Name Role Phone Priscilla Barrera MD Primary Care Provider [phone] Encounter Details Date Type Department Care Team (Latest Contact Info) Description 04/27/2018 Anticoagulation Visit [facility] [address] [facility] [address] [place] [phone] Andrade Brown MD [facility] [place] [address] Paroxysmal atrial fibrillation (CMS/HCC); [facility] current use of anticoagulant therapy Social History Tobacco Use Types Packs/Day Years Used Date Smoking Tobacco: Former Smokeless Tobacco: Never Alcohol Use Standard Drinks/Week Comments Yes 0 (1 standard drink = 0.6 oz pur e alcohol) Comments Unknown Sex and Gender Information Value Date Recorded Sex Assigned at Not on file Legal Sex Female 8:30 AM CHEMISTRY TEACHER Gender Identity Female 10/06/2021 4:28 PM CHEMISTRY TEACHER Sexual Orientation Choose not to disclose 2020 4:28 PM CHEMISTRY TEACHER documented as of this encounter Plan [...] documented in this encounter Care Teams Marine Architect Relationship Specialty Start Date End Date Priscilla Barrera MD [address] [place] [address] PCP - General 01/08/17 02/07/19 documented as of this encounter
--- OUTSIDE RECORDS SUMMARY | 2024-10-22 14:54 | XMS_ITS | Encounter Summary ---
Author Organization [facility] Facility Care Team Providers Care Agricultural Commodities Grader Name Role Phone Kali Hunt MD Primary Care Provider [phone] Encounter Details Date Type Department Care Team [...] on file Legal Sex Female 8:30 AM MATERIALS RECYCLER Gender Identity Female 10/06/2021 4:28 PM MATERIALS RECYCLER Sexual Orientation Choose not to disclose 2020 4:28 PM MATERIALS RECYCLER documented as of this encounter Plan of Treatment Not on file documented as of this encounter Visit Diagnoses Not on filedocumented in this encounter Care Teams Agricultural Commodities Grader Relationship Specialty Start Date End Date Kali Hunt MD [address] [address] PCP - General Family Medicine 02/08/19 01/30/20 documented as of this encounter
--- OUTSIDE RECORDS SUMMARY | 2024-10-22 14:54 | XMS_ITS | Encounter Summary ---
Author Organization [facility] Address [address] [facility] [facility] [address] [place] [address] Care Team Providers Care Movable Bulkhead Installer Name Role Phone Priscilla Barrera MD Primary Care Provider [phone] Encounter Details Date Type Department Care Team (Latest Contact Info) Description 07/06/2018 Anticoagulation Visit [facility] [address] [facility] [address] [place] [phone] Andrade Brown MD [facility] [place] [address] Paroxysmal atrial fibrillation (CMS/HCC); senior living current use of anticoagulant therapy Social History Tobacco Use Types Packs/Day Years Used Date Smoking Tobacco: Former Smokeless Tobacco: Never Alcohol Use Standard Drinks/Week Comments Yes 0 (1 standard drink = 0.6 oz pur e alcohol) Comments Unknown Sex and Gender Information Value Date Recorded Sex Assigned at Not on file Legal Sex Female 8:30 AM FREELANCE INTERPRETER/TRANSLATOR Gender Identity Female 10/06/2021 4:28 PM FREELANCE INTERPRETER/TRANSLATOR Sexual Orientation Choose not to disclose 2020 4:28 PM FREELANCE INTERPRETER/TRANSLATOR documented as of this encounter Plan of [...] therapy documented in this encounter Care Teams Movable Bulkhead Installer Relationship Specialty Start Date End Date Priscilla Barrera MD [address] [place] [address] PCP - General 01/08/17 02/07/19 documented as of this encounter
--- OUTSIDE RECORDS SUMMARY | 2024-10-22 14:54 | XMS_ITS | Encounter Summary ---
Author Organization [facility] Address [address] [facility] [address] [place] [address] Care Team Providers Care Jet Aircraft Servicer Name Role Phone Priscilla Barrera MD Primary Care Provider [phone] Encounter Details Date Type Department Care Team (Late st Contact Info) Description 02/02/2018 Telephone [facility] [address] [address] [address] [place] [address] Andrade Brown MD [facility] [place] [address] Social History Tobacco Use Types Packs/Day Years Used Date Smoking Tobacco: Former Smokeless Tobacco: Never Alcohol Use Standard Drinks/Week Comments Yes 0 (1 standard drink = 0.6 oz pur e alcohol) Comments Unknown Sex and Gender Information Value Date Recorded Sex Assigned at Not on file Legal Sex Female 8:30 AM IMPROVEMENT RN Gender Identity Female 10/06/2021 4:28 PM IMPROVEMENT RN Sexual Orientation Choose not to disclose 2020 4:28 PM IMPROVEMENT RN documented as of this encounter Miscellaneous Notes * Telephone Encounter - Jacque Herrera RN - 02/03/2018 8:[address] Brown, switch patient to Atorvastatin 40mg daily. Will send Rx to pharmacy. Patient requesting a 90 day supply. * Telephone Encounter - Jacque Herrera RN - 02/02/2018 9:22 AM CDT Spoke with patient, she states that her finish filer feels that she may be developing hives from her Simvastatin and is wondering if there is an alternative. States that this has been going on for acouple of years. Will review with Dr. Brown. documented in this encounter Plan of Treatment Not on file documented as of this encounter Visit Diagnoses Not on filedocumented in this encounter Care Teams Jet Aircraft Servicer Relationship Specialty Start Date End Date Priscilla Barrera MD [address] [place] [address] PCP - General 01/08/17 02/07/19 documented as of this encounter
--- OUTSIDE RECORDS SUMMARY | 2024-10-22 14:54 | XMS_ITS | Encounter Summary ---
Author Organization [facility] Address [address] [facility] [address] [place] [address] Care Team Providers Care Operations/Dispatch Name Role Phone Kali Hunt MD Primary Care Provider [phone] Encounter Details Date Type Department Care Team (Latest Contact Info) Description 03/01/2019 Anticoagulation Visit [facility] [address] [place] [address] Andrade Brown MD [address] [place] [address] Paroxysmal atrial fibrillation (CMS/HCC); shelter current use of anticoagulant therapy Social History Tobacco Use Types Packs/Day Years Used Date Smoking Tobacco: Former Cigarettes Q uit: 09/28/1978 Smokeless Tobacco: Never Alcohol Use Standard Drinks/Week Comments Yes 0 (1 standard drink = 0.6 oz pur e alcohol) Comments Unknown Sex and Gender Information Value Date Recorded Sex Assigned at Not on file Legal Sex Female 8:30 AM ASSEMBLER FLEXIBLE LEADS Gender Identity Female 10/06/2021 4:28 PM ASSEMBLER FLEXIBLE LEADS Sexual Orientation Choose not to disclose 2020 4:28 PM ASSEMBLER FLEXIBLE LEADS documented as of this encounter Plan of [...] therapy documented in this encounter Care Teams Operations/Dispatch Relationship Specialty Start Date End Date Kali Hunt MD [address] [address] PCP - General Family Medicine 02/08/19 01/30/20 documented as of this encounter
--- OUTSIDE RECORDS SUMMARY | 2024-10-22 14:54 | XMS_ITS | Encounter Summary ---
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..] therapy documented in this encounter Care Teams Stopper Setter Relationship Specialty Start Date End Date Priscilla Barrera MD [address] [place] [address] PCP - General 01/08/17 02/07/19 documented as of this encounter
--- OUTSIDE RECORDS SUMMARY | 2024-10-22 14:54 | XMS_ITS | Encounter Summary ---
Author Organization [facility] Address [address] [facility] [address] [place] [address] Care Team Providers Care Dowel Machine Operator Name Role Phone Priscilla Barrera MD Primary Care Provider [phone] Encounter Details Date Type Department Care Team (Late st Contact Info) Description 04/28/2018 Orders Only [facility] [address] [facility] [address] [place] [phone] Provider, MD Peggy [address] [place] [address] Social History Tobacco Use Types Packs/Day Years Used Date Smoking Tobacco: Former Smokeless Tobacco: Never Alcohol Use Standard Drinks/Week Comments Yes 0 (1 standard drink = 0.6 oz pur e alcohol) Comments Unknown Sex and Gender Information Value Date Recorded Sex Assigned at Not on file Legal Sex Female 8:30 AM COKE CRUSHER OPERATOR Gender Identity Female 10/06/2021 4:28 PM COKE CRUSHER OPERATOR Sexual Orientation Choose not to disclose 2020 4:28 PM COKE CRUSHER OPERATOR documented as of this encounter Plan [...] on filedocumented in this encounter Care Teams Dowel Machine Operator Relationship Specialty Start Date End Date Priscilla Barrera MD [facility] [place] [address] PCP - General 01/08/17 02/07/19 documented as of this encounter
--- OUTSIDE RECORDS SUMMARY | 2024-10-22 14:54 | XMS_ITS | Encounter Summary ---
Author Organization [facility] Address [address] [facility] [address] [place] [address] Care Team Providers Care Radiation Control Health Physicist Name Role Phone Priscilla Barrera MD Primary Care Provider [phone] Reason for Visit * Reason Comments Atrial Fibrillation Peripheral Artery Disease Hypertension Hyperlipidemia Encounter Details Date Type Department Care Team (Latest Contact Info) Description 04/20/2018 9:30 AM CDT Office Visit [facility] [address] [facility] [address] [place] [address] Andrade Brown MD [facility] [place] [id number] HTN (hypertension), benign (Primary Dx); 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; PAD (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) ([facility]) Social History Tobacco Use Types Packs/Day Years Used Date Smoking Tobacco: Former Smokeless Tobacco: Never Alcohol Use Standard Drinks/Week Comments Yes 0 (1 standard drink = 0.6 oz pur e alcohol) Comments Unknown Sex and Gender Information Value Date Recorded Sex Assigned at Not on file Legal Sex Female 8:30 AM BLOOD BANK LABORATORY TECHNICIAN Gender Identity Female 10/06/2021 4:28 PM BLOOD BANK LABORATORY TECHNICIAN Sexual Orientation Choose not to disclose 2020 4:28 PM BLOOD BANK LABORATORY TECHNICIAN documented as of this encounter Last [...] x2 with recent success 3. 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 PAD (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/HCC) Mild femoral disease 5. 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 goal <100 6. HTN (hypertension), benign At goal 7.. Mild carotid artery disease PLAN/RECOMMENDATIONS 1. Stop simvastatin because of her rash. 2. 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
--- OUTSIDE RECORDS SUMMARY | 2024-10-22 14:55 | XMS_ITS | Encounter Summary ---
Author Organization [facility] Address [address] [address] [place] [address] Care Team Providers Care Regional Refrigerated Cdl Truck Driver Name Role Phone Priscilla Barrera MD Primary Care Provider [phone] Encounter Details Date Type Department Care Team (Late st Contact Info) Description 01/27/2017 [facility] Only [facility] [address] [facility] [address] [address] Oracio Love MD [address] [facility] [address] [place] [address] Social History Tobacco Use Types Packs/Day Years Used Date Smoking Tobacco: Former Cigarettes Q uit: 10/11/1977 Alcohol Use Standard Drinks/Week Comments Yes 0 (1 standard drink = 0.6 oz pur e alcohol) Comments Unknown Sex and Gender Information Value Date Recorded Sex Assigned at Not on file Legal Sex Female 8:30 AM SOCIAL SERVICE COORDINATOR Gender Identity Female 10/06/2021 4:28 PM SOCIAL SERVICE COORDINATOR Sexual Orientation Choose not to disclose 2020 4:28 PM SOCIAL SERVICE COORDINATOR documented as of this encounter Plan of Treatment Not on file documented as of this encounter Procedures Procedure Name Priority Date/Time Associated Diagnosis Comments DIFFERENTIAL AUTO Routine 01/27/2017 6:4 1 AM CDT documented in this encounter Results * (ABNORMAL) Differential, auto (01/27/2017 6:41 AM CDT) Neutrophil pct 70.7 44.0 - 80.0 % [facility] Imm gran pct 0.2 0.0 - 1.0 % [facility] Lymphocyte pct 17.8 13.0 - 44.0 % [facility] Monocyte pct 7.8 2.0 - 11.0 % [facility] Eosinophil pct 2.8 0.0 - 6.0 % [facility] Basophil pct 0.7 0.0 - 3.0 % [facility] Neutrophil abs 2.98 1.70 - 6.50 K/cumm [facility] Imm gran abs 0.01 0.00 - 0.10 K/cumm [facility] Lymphocyte abs 0.75(L) 0.80 - 3.30 K/cumm [facility] Monocyte abs 0.33 0.20 - 0.80 K/cumm [facility] Eosinophil abs 0.12 0.00 - 0.50 K/cumm [facility] Basophil abs 0.03 0.00 - 0.10 K/cumm [facility] Blood specimen (specimen) 01/27/2017 6:41 AM CDT 01/27/2017 6:52 AM CDT us Oracio Love MD LAB BLOOD ORDERABLES Fi nal Result [facility] [address] Department [place] [address] documented in this encounter Visit Diagnoses Not on filedocumented in this encounter Care Teams Regional Refrigerated Cdl Truck Driver Relationship Specialty Start Date End Date Priscilla Barrera MD [address] [place] [address] PCP - General 01/08/17 02/07/19 documented as of this encounter
--- OUTSIDE RECORDS SUMMARY | 2024-10-22 14:55 | XMS_ITS | Encounter Summary ---
Author Organization [facility] Address [address] [facility] [address] [place] [address] Care Team Providers Care Buffet Runner Name Role Phone Priscilla Barrera MD Primary Care Provider Encounter Details Date Type Department Care Team (Late st Contact Info) Description 01/28/2017 Orders Only [facility] [address] [facility] [address], [place] [address] Oracio Love MD [address] [facility] [address] [place] [address] Social History Tobacco Use Types Packs/Day Years Used Date Smoking Tobacco: Former Cigarettes Q uit: 10/11/1977 Alcohol Use Standard Drinks/Week Comments Yes 0 (1 standard drink = 0.6 oz pur e alcohol) Comments Unknown Sex and Gender Information Value Date Recorded Sex Assigned at Not on file Legal Sex Female 8:30 AM PULPWOOD BUYER Gender Identity Female 10/06/2021 4:28 PM PULPWOOD BUYER Sexual Orientation Choose not to disclose 2020 4:28 PM PULPWOOD BUYER documented as of this encounter Plan of Treatment Not on file documented as of this encounter Procedures Procedure Name Priority Date/Time Associated Diagnosis Comments BASIC METABOLIC PANEL Routine 01/28/2017 5:53 AM CDT documented in this encounter Results * (ABNORMAL) Basic metabolic panel (01/28/2017 5:53 AM CDT) Sodium 141 135 - 145 mmol/L [facility] Potassium, pl 3.3(L) 3.6 - 5.2 mmol/L [facility] Chloride 102 97 - 110 mmol/L [facility] CO2 24 22 - 32 mmol/L [facility] BUN 13.8 8.0 - 25.0 mg/dL [facility] Glucose 108 70 - 199 mg/dL [facility] Comment: Interpretive Data Glucose is assumed to be non-fasting. Current interpretive data was last revised 2017. Creatinine 1.21(H) 0.60 - 1.10 mg/dL [facility] Calcium 7.7(L) 8.5 - 10.3 mg/dL [facility] Anion gap 15 2 - 15 mmol/L [facility] Blood specimen (specimen) 01/28/2017 5:53 AM CDT 01/28/2017 6:11 AM CDT us Oracio Love MD LAB BLOOD ORDERABLES Fi nal Result [facility] [address] Department [place] [address] documented in this encounter Visit Diagnoses Not on filedocumented in this encounter Care Teams Buffet Runner Relationship Specialty Start Date End Date Priscilla Barrera MD [address] [place] [address] PCP - General 01/08/17 02/07/19 documented as of this encounter
--- OUTSIDE RECORDS SUMMARY | 2024-10-22 14:55 | XMS_ITS | Encounter Summary ---
Author Organization [facility] Address [address] [facility] [address] [place] [address] Care Team Providers Care Accessories Repairer Name Role Phone Priscilla Barrera MD Primary Care Provider [phone] Encounter Details Date Type Department Care Team (Late st Contact Info) Description 01/27/2017 Orders Only [facility] [address] [facility] [address] [address] Oracio Love MD [address] [facility] [address] [place] [address] Social History Tobacco Use Types Packs/Day Years Used Date Smoking Tobacco: Former Cigarettes Q uit: 10/11/1977 Alcohol Use Standard Drinks/Week Comments Yes 0 (1 standard drink = 0.6 oz pur e alcohol) Comments Unknown Sex and Gender Information Value Date Recorded Sex Assigned at Not on file Legal Sex Female 8:30 AM FEATHER WASHER Gender Identity Female 10/06/2021 4:28 PM FEATHER WASHER Sexual Orientation Choose not to disclose 2020 4:28 PM FEATHER WASHER documented as of this encounter Plan of Treatment Not on file documented as of this encounter Procedures Procedure Name Priority Date/Time Associated Diagnosis Comments BASIC METABOLIC PANEL Routine 01/27/2017 6:41 AM CDT documented in this encounter Results * (ABNORMAL) Basic metabolic panel (01/27/2017 6:41 AM CDT) Sodium 141 135 - 145 mmol/L [facility] Potassium, pl 3.6 3.6 - 5.2 mmol/L [facility] Chloride 100 97 - 110 mmol/L [facility] CO2 26 22 - 32 mmol/L [facility] BUN 20.5 8.0 - 25.0 mg/dL [facility] Glucose 110 70 - 199 mg/dL [facility] Comment: Interpretive Data Glucose is assumed to be non-fasting. Current interpretive data was last revised 2017. Creatinine 1.23(H) 0.60 - 1.10 mg/dL [facility] Calcium 9.0 8.5 - 10.3 mg/dL [facility] Anion gap 15 2 - 15 mmol/L [facility] Blood specimen (specimen) 01/27/2017 6:41 AM CDT 01/27/2017 6:52 AM CDT us Oracio Love MD LAB BLOOD ORDERABLES Fi nal Result [facility] [address] [place] [address] documented in this encounter Visit Diagnoses Not on filedocumented in this encounter Care Teams Accessories Repairer Relationship Specialty Start Date End Date Priscilla Barrera MD [address] [place] [address] PCP - General 01/08/17 02/07/19 documented as of this encounter
--- OUTSIDE RECORDS SUMMARY | 2024-10-22 14:55 | XMS_ITS | Encounter Summary ---
Author Organization [facility] Address [address] [place] [address] Care Team Providers Care Procurement Clerk Name Role Phone Priscilla Barrera MD Primary Care Provider [phone] Reason for Visit * Reason Comments Atrial Fibrillation Encounter Details Date Type Department Care Team (Latest Contact Info) Description 08/19/2017 11:00 AM CLINICAL STATISTICAL PROGRAMMER Office Visit [facility] [address] [place] [address] Kath Byrd, ENTERPRISE RECORDS ANALYST [address] [facility] [address] [place] [address] Paroxysmal atrial fibrillation (CMS/HCC) (Primary Dx); HTN (hypertension), benign; 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 Social History Tobacco Use Types Packs/Day Years Used Date Smoking Tobacco: Former Smokeless Tobacco: Never Alcohol Use Standard Drinks/Week Comments Yes 0 (1 standard drink = 0.6 oz pur e alcohol) Comments Unknown Sex and Gender Information Value Date Recorded Sex Assigned at Not on file Legal Sex Female 8:30 AM CLINICAL STATISTICAL PROGRAMMER Gender Identity Female 10/06/2021 4:28 PM CLINICAL STATISTICAL PROGRAMMER Sexual Orientation Choose not to disclose 2020 4:28 PM CLINICAL STATISTICAL PROGRAMMER documented as of this encounter Last Filed Vital Signs Vital Sign Reading Time Taken Comments Blood Pressure 140/68 08/19/2017 9:55 AM CLINICAL STATISTICAL PROGRAMMER Pulse 59 08/19/2017 9:55 AM CLINICAL STATISTICAL PROGRAMMER Temperature - - Respiratory Rate - - Oxygen Saturation - - Inhaled Oxygen Concentration - - Weight 89.8 kg (198 lb) 08/19/2017 9:55 AM CLINICAL STATISTICAL PROGRAMMER Height 167.6 cm (5' 6 ) 08/19/2017 9:55 AM CLINICAL STATISTICAL PROGRAMMER Body Mass Index 31.96 08/19/2017 9:55 AM CLINICAL STATISTICAL PROGRAMMER documented in this encounter Patient Instructions * Patient Instructions* Aimee Gomez MA - 08/19/2017 9:39 AM CLINICAL STATISTICAL PROGRAMMER Images from the original note were not included. Patient Education A-fib (Atrial Fibrillation) AIRLINE CAPTAIN: Atrial fibrillation (a-fib) is an irregular heartbeat. [...] in your arm or leg. Contact your railway signal technician or healthcare provider if: ?? Your target [...] plan for you. Follow up with your railway signal technician as directed: You will need regular blood tests and monitoring. Write down your questions so you remember to ask them during your visits. ?? 2016 [employer]. Information is for End User's use only and may not be sold, redistributed or otherwise used for commercial purposes. All illustrations and images included in CareNotes?? are the copyrighted property of [employer]. or [employer]. The above information is an public aid eligibility assistant only. It is not intended as medical advice for individual conditions or treatments. Talk to your doctor, nurse or pharmacist before following any medical regimen to see if it is safe and effective for you. ICAL STATISTICAL PROGRAMMER ICAL STATISTICAL PROGRAMMER documented in this encounter Progress Notes * [...] 12 lead 2. HTN (hypertension), benign 3. intermediate current use of anticoagulant therapy Assessment & Plan: She remains anticoagulated on Coumadin. She has a CKT1WA-PZEh score of 4, therefore it is recommended that she remain anticoagulated for thromboprophylaxis. ICAL STATISTICAL PROGRAMMER documented in this encounter Miscellaneous Notes * Assessment & Plan Note - Kath Byrd NP - 08/19/2017 10:05 AM CLINICAL STATISTICAL PROGRAMMER Associated Problem(s): Atrial fibrillation (CMS/HCC) [I48.91] Post [...] an office visit and 12 lead EKG. 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 She has a UTO0AC-MIJv score of 4, therefore it is recommended that she remain anticoagulated for thromboprophylaxis. ICAL STATISTICAL PROGRAMMER documented in this encounter Plan of Treatment [...] fibrillation HTN (hypertension), benign Essential hypertension, benign intermediate current use of anticoagulant therapy documented in this encounter Care Teams Procurement Clerk Relationship Specialty Start Date End Date Priscilla Barrera MD [address] [place] [address] PCP - General 01/08/17 02/07/19 documented as of this encounter
--- OUTSIDE RECORDS SUMMARY | 2024-10-22 14:55 | XMS_ITS | Encounter Summary ---
Author Organization [facility] Address [address] [place] [address] Care Team Providers Care Derrick Man Name Role Phone Priscilla Barrera MD Primary Care Provider [phone] Encounter Details Date Type Department Care Team (Late st Contact Info) Description 01/27/2017 Orders Only [facility] [address], [place] [address] Oracio Love MD [address] [facility] [address] [place] [address] Social History Tobacco Use Types Packs/Day Years Used Date Smoking Tobacco: Former Cigarettes Q uit: 10/11/1977 Alcohol Use Standard Drinks/Week Comments Yes 0 (1 standard drink = 0.6 oz pur e alcohol) Comments Unknown Sex and Gender Information Value Date Recorded Sex Assigned at Not on file Legal Sex Female 8:30 AM GAMEPLAY PROGRAMMER Gender Identity Female 10/06/2021 4:28 PM GAMEPLAY PROGRAMMER Sexual Orientation Choose not to disclose 2020 4:28 PM GAMEPLAY PROGRAMMER documented as of this encounter Plan of Treatment Not on file documented as of this encounter Procedures Procedure Name Priority Date/Time Associated Diagnosis Comments EGFR Routine 01/27/2017 6:41 AM CDT documented in this encounter Results * eGFR (01/27/2017 6:41 AM CDT) eGFR 42 mL/min/1.7 3 m2 [facility] Comment: Interpretive Data Reference Interval Normal ?>/= 90 mL/min/1.73m2 Mildly decreased* ? 60 - 89 mL/min/1.73m2 Mildly to moderately decreased ?45 - 59 mL/min/1.73m2 Moderately to severely decreased ??30 - 44 mL/min/1.73m2 Severely decreased ?15 - 29 mL/min/1.73m2 Kidney Failure ?< 15 ??mL/min/1.73m2 *Relative to young adult level If -[place] Ze[place] multiply value by 1.16. Estimated glomerular filtration [...] [address] Department of Laboratories [place], [place] [id number] documented in this encounter Visit Diagnoses Not on filedocumented in this encounter Care Teams Derrick Man Relationship Specialty Start Date End Date Priscilla Barrera MD [address] [place] [address] PCP - General 01/08/17 02/07/19 documented as of this encounter
--- OUTSIDE RECORDS SUMMARY | 2024-10-22 14:55 | XMS_ITS | Encounter Summary ---
Author Organization [facility] Address [address] [place] [address] Care Team Providers Care Pacs Administrator Name Role Phone Priscilla Barrera MD Primary Care Provider [phone] Encounter Details Date Type Department Care Team (Late st Contact Info) Description 01/28/2017 Orders Only [facility] [address] [facility] [address], [place] [address] Oracio Love MD [address] [facility] [address] [place] [address] Social History Tobacco Use Types Packs/Day Years Used Date Smoking Tobacco: Former Cigarettes Q uit: 10/11/1977 Alcohol Use Standard Drinks/Week Comments Yes 0 (1 standard drink = 0.6 oz pur e alcohol) Comments Unknown Sex and Gender Information Value Date Recorded Sex Assigned at Not on file Legal Sex Female 8:30 AM WORD PROCESSING OPERATOR Gender Identity Female 10/06/2021 4:28 PM WORD PROCESSING OPERATOR Sexual Orientation Choose not to disclose 2020 4:28 PM WORD PROCESSING OPERATOR documented as of this encounter Plan of Treatment Not on file documented as of this encounter Procedures Procedure Name Priority Date/Time Associated Diagnosis Comments CBC WITH AUTO DIFFERENTIAL Routine 01/28/2017 5:53 AM CDT documented in this encounter Results * (ABNORMAL) CBC with auto differential (01/28/2017 5:53 AM CDT) WBC 4.73 3.80 - 9.90 K/cumm [facility] RBC 3.89(L) 3.90 - 5.20 M/cumm [facility] Hgb 10.8(L) 11.9 - 15.5 g/dL [facility] Hct 33.7(L) 35.6 - 45.5 % [facility] MCV 86.6 81.3 - 96.4 fL [facility] MCH 27.8 27.1 - 33.3 pg [facility] MCHC 32.0(L) 32.3 - 35.7 g/dL [facility] RDW CV 14.4 11.1 - 14.9 % [facility] RDW SD 45.5 35.7 - 48.1 fL [facility] Plt 178 150 - 400 K/cumm [facility] MPV 9.7 9.1 - 12.3 fL [facility] NRBC 0.00 0.00 - 0.20 % [facility] NRBC abs 0.00 0.00 - 0.01 K/cumm [facility] Blood specimen (specimen) 01/28/2017 5:53 AM CDT 01/28/2017 6:12 AM CDT us Oracio Love MD LAB BLOOD ORDERABLES Fi nal Result [facility] [address] Department [place] [address] documented in this encounter Visit Diagnoses Not on filedocumented in this encounter Care Teams Pacs Administrator Relationship Specialty Start Date End Date Priscilla Barrera MD [address] [place] [address] PCP - General 01/08/17 02/07/19 documented as of this encounter
--- OUTSIDE RECORDS SUMMARY | 2024-10-22 14:55 | XMS_ITS | Encounter Summary ---
Author Organization [facility] Facility Care Team Providers Care Linotype Machinist Apprentice Name Role Phone Priscilla Barrera MD Primary Care Provider [phone] Encounter Details Date Type Department Care Team (Latest Contact Info) Description 07/22/2016 6:00 AM CDT - 07/23/2016 3:34 PM CDT Hospital Encounter [facility] Kate, Oracio Veliz MD [address] [place] [address] Paroxysmal atrial fibrillation (CMS/HCC); emt intermediate current use of anticoagulant Social History Tobacco Use Types Packs/Day Years Used Date Smoking Tobacco: Former Cigarettes Q uit: 10/11/1977 Alcohol Use Standard Drinks/Week Comments Yes 0 (1 standard drink = 0.6 oz pur e alcohol) Comments Unknown Sex and Gender Information Value Date Recorded Sex Assigned at Not on file Legal Sex Female 8:30 AM COMPUTER NETWORK SUPPORT SPECIALIST Gender Identity Female 10/06/2021 4:28 PM COMPUTER NETWORK SUPPORT SPECIALIST Sexual Orientation Choose not to disclose 2020 4:28 PM COMPUTER NETWORK SUPPORT SPECIALIST documented as of this encounter Last [...] to 3.0 Myocardial Infarction 2.0 to 3.0 Non-picayune Valves 2.0 to 3.5 TREATMENT OF VENOUS [...] Narrative 07/23/2016 Ordered by an unspecified provider. [facility] Provider LAB BLOOD ORDERABLES Noris l Result * ELECTROCARDIOGRAPHY (ECG) (07/23/2016) Narrative 07/23/2016 Ordered by an unspecified provider. [facility] Provider ECG ORDERABLES Final Res [...] ORDERABLES Fi nal Result Performing Organization Address [facility] de Phone Number CDR [...] to 3.0 Myocardial Infarction 2.0 to 3.0 Non-picayune Valves 2.0 to 3.5 TREATMENT OF VENOUS THRMBOSIS Deep Vein Thrombosis 2.0 to 3.0 Pulmonary Embolism 2.0 to 3.0 Plasma 07/22/2016 7:09 AM CDT Oracio Love MD LAB BLOOD ORDERABLES Fi nal Result Performing Organization Address [facility] de Phone Number CDR [...] RESULTS Plasma 07/22/2016 7:09 AM CDT Result [facility] Oracio Love MD LAB BLOOD [...] Paroxysmal atrial fibrillation (CMS/HCC) (HCC) Atrial fibrillation emt intermediate current use of anticoagulant documented in this encounter Care Teams Linotype Machinist Apprentice Relationship Specialty Start Date End Date Priscilla Barrera MD [address] [place] [address] PCP - General 01/30/16 08/26/16 documented as of this encounter
--- OUTSIDE RECORDS SUMMARY | 2024-10-22 14:55 | XMS_ITS | Encounter Summary ---
Author Organization [facility] Address [address] [place] [address] Care Team Providers Care Agriscience Teacher Name Role Phone Priscilla Barrera MD Primary Care Provider [phone] Priscilla Barrera MD Primary Care Provider [phone] Priscilla Barrera MD Primary Care Provider [phone] Kali Hunt MD Primary Care Provider [phone] Devaughn Macias MD Primary Care Provider Denis Platt MD Primary Care Provide r Gideon Campbell MD Primary Care Provider [phone] Encounter Details Date Type Department Care Team (Late st Contact Info) Description 06/24/2016 Orders Only [facility] Provider, MD Peggy [address] [place] [address] Social History Tobacco Use Types Packs/Day Years Used Date Smoking Tobacco: Former Cigarettes Q uit: 10/11/1977 Alcohol Use Standard Drinks/Week Comments Yes 0 (1 standard drink = 0.6 oz pur e alcohol) Comments Unknown Sex and Gender Information Value Date Recorded Sex Assigned at Not on file Legal Sex Female 8:30 AM MACHINE ADJUSTER Gender Identity Female 10/06/2021 4:28 PM MACHINE ADJUSTER Sexual Orientation Choose not to disclose 2020 4:28 PM MACHINE ADJUSTER documented as of this encounter Plan of [...] on filedocumented in this encounter Care Teams Agriscience Teacher Relationship Specialty Start Date End Date Priscilla Barrera MD [address] [place] [address] PCP - General 01/08/17 02/07/19 Priscilla Barrera MD [address] [place] [address] PCP - General 08/27/16 01/07/17 Priscilla Barrera MD [address] [place] [address] PCP - General 01/30/16 08/26/16 Kali Hutn MD [address] [place] [address] PCP - General Family Medicine 02/08/19 01/30/20 Devaughn Macias MD [address] [place] [address] PCP - General Family Medicine 01/31/20 01/13/22 Denis Platt MD [address] [place] [address] PCP - General Family Medicine 01/14/22 07/18/23 Gideon Campbell MD [address] [facility] [address] [place] [address] PCP - General Family Medicine 07/19/23 documented as of this encounter
--- OUTSIDE RECORDS SUMMARY | 2024-10-22 14:55 | XMS_ITS | Encounter Summary ---
Author Organization [facility] Address [address] [place] [address] Care Team Providers Care Metal Fabrication Supervisor Name Role Phone Priscilla Barrera MD Primary Care Provider [phone] Encounter Details Date Type Department Care Team (Latest Contact Info) Description 01/27/2017 6:03 AM CDT - 01/28/2017 12:31 PM CDT Hospital Encounter [facility] [address] [place] [address] Oracio Love MD [address] [address] Discharge Disposition: Discharge to home or self care Social History Tobacco Use Types Packs/Day Years Used Date Smoking Tobacco: Former Cigarettes Q uit: 10/11/1977 Alcohol Use Standard Drinks/Week Comments Yes 0 (1 standard drink = 0.6 oz pur e alcohol) Comments Unknown Sex and Gender Information Value Date Recorded Sex Assigned at Not on file Legal Sex Female 8:30 AM COST CLERK Gender Identity Female 10/06/2021 4:28 PM COST CLERK Sexual Orientation Choose not to disclose 2020 4:28 PM COST CLERK documented as of this encounter Last [...] on filedocumented in this encounter Care Teams Metal Fabrication Supervisor Relationship Specialty Start Date End Date Priscilla Barrera MD [address] [place] [address] PCP - General 01/08/17 02/07/19 documented as of this encounter
--- OUTSIDE RECORDS SUMMARY | 2024-10-22 14:55 | XMS_ITS | Encounter Summary ---
Author Organization [facility] Facility Care Team Providers Care Wet Machine Tender Name Role Phone Priscilla Barrera MD Primary Care Provider [phone] Encounter Details Date Type Department Care Team (Latest Contact Info) Description 07/15/2016 12:54 PM CDT - 07/15/2016 11:59 PM CDT Hospital Encounter [facility] Kate, Wendi Veliz MD [address] [address] Chronic atrial fibrillation (CMS/HCC) Social History Tobacco Use Types Packs/Day Years Used Date Smoking Tobacco: Former Cigarettes Q uit: 10/11/1977 Alcohol Use Standard Drinks/Week Comments Yes 0 (1 standard drink = 0.6 oz pur e alcohol) Comments Unknown Sex and Gender Information Value Date Recorded Sex Assigned at Not on file Legal Sex Female 8:30 AM TECHNICAL SALES ADVISOR Gender Identity Female 10/06/2021 4:28 PM TECHNICAL SALES ADVISOR Sexual Orientation Choose not to disclose 2020 4:28 PM TECHNICAL SALES ADVISOR documented as of this encounter Medications at [...] WENDI BULL Requesting Fax: ?? Requesting ID: [id number] Attending Fax: ?? Attending ID: ?? [id number] Completed Time: ?? 07/15/2016 2:29 PM Dictated [...] BULL Requesting: WENDI BULL Requesting Requesting ID: [id number] Attending Attending ID: [id number] Completed Time: 07/15/2016 2:29 PM Dictated Time: [...] fibrillation documented in this encounter Care Teams Wet Machine Tender Relationship Specialty Start Date End Date Priscilla Barrera MD [facility] [place] [address] PCP - General 01/30/16 08/26/16 documented as of this encounter
--- OUTSIDE RECORDS SUMMARY | 2024-10-22 14:55 | XMS_ITS | Encounter Summary ---
Author Organization [facility] Address [address] [place] [address] Care Team Providers Care Aluminum Polisher Name Role Phone Priscilla Barrera MD Primary Care Provider [phone] Encounter Details Date Type Department Care Team (Late st Contact Info) Description 01/27/2017 Orders Only [facility] [address] [facility] [address], [place] [address] Oracio Love MD [address] [facility] [address] [place] [address] Social History Tobacco Use Types Packs/Day Years Used Date Smoking Tobacco: Former Cigarettes Q uit: 10/11/1977 Alcohol Use Standard Drinks/Week Comments Yes 0 (1 standard drink = 0.6 oz pur e alcohol) Comments Unknown Sex and Gender Information Value Date Recorded Sex Assigned at Not on file Legal Sex Female 8:30 AM PATCHER WOOD WELDER Gender Identity Female 10/06/2021 4:28 PM PATCHER WOOD WELDER Sexual Orientation Choose not to disclose 2020 4:28 PM PATCHER WOOD WELDER documented as of this encounter Plan of Treatment Not on file documented as of this encounter Procedures Procedure Name Priority Date/Time Associated Diagnosis Comments CBC WITH AUTO DIFFERENTIAL Routine 01/27/2017 6:41 AM CDT documented in this encounter Results * CBC with auto differential (01/27/2017 6:41 AM CDT) WBC 4.22 3.80 - 9.90 K/cumm [facility] RBC 4.67 3.90 - 5.20 M/cumm [facility] Hgb 12.9 11.9 - 15.5 g/dL [facility] Hct 39.8 35.6 - 45.5 % [facility] MCV 85.2 81.3 - 96.4 fL [facility] MCH 27.6 27.1 - 33.3 pg [facility] MCHC 32.4 32.3 - 35.7 g/dL [facility] RDW CV 14.1 11.1 - 14.9 % [facility] RDW SD 43.3 35.7 - 48.1 fL [facility] Plt 233 150 - 400 K/cumm [facility] MPV 9.2 9.1 - 12.3 fL [facility] NRBC 0.00 0.00 - 0.20 % [facility] NRBC abs 0.00 0.00 - 0.01 K/cumm [facility] Blood specimen (specimen) 01/27/2017 6:41 AM CDT 01/27/2017 6:52 AM CDT us Oracio Love MD LAB BLOOD ORDERABLES Fi nal Result [facility] [address] Department [place] [address] documented in this encounter Visit Diagnoses Not on filedocumented in this encounter Care Teams Aluminum Polisher Relationship Specialty Start Date End Date Priscilla Barrera MD [address] [place] [address] PCP - General 01/08/17 02/07/19 documented as of this encounter
--- OUTSIDE RECORDS SUMMARY | 2024-10-22 14:55 | XMS_ITS | Encounter Summary ---
Author Organization [facility] Address [address] [place] [address] Care Team Providers Care Armhole Sewer Name Role Phone Priscilla Barrera MD Primary Care Provider [phone] Encounter Details Date Type Department Care Team (Latest Contact Info) Description 10/01/2017 Anticoagulation Visit [facility] [address] [facility] [facility] [address] [place] [address] Andrade Brown MD [facility] [place] [address] Paroxysmal atrial fibrillation (CMS/HCC); FDC current use of anticoagulant therapy Social History Tobacco Use Types Packs/Day Years Used Date Smoking Tobacco: Former Smokeless Tobacco: Never Alcohol Use Standard Drinks/Week Comments Yes 0 (1 standard drink = 0.6 oz pur e alcohol) Comments Unknown Sex and Gender Information Value Date Recorded Sex Assigned at Not on file Legal Sex Female 8:30 AM BACON SKINNER Gender Identity Female 10/06/2021 4:28 PM BACON SKINNER Sexual Orientation Choose not to disclose 2020 4:28 PM BACON SKINNER documented as of this encounter Plan of [...] therapy documented in this encounter Care Teams Armhole Sewer Relationship Specialty Start Date End Date Priscilla Barrera MD [address] [place] [address] PCP - General 01/08/17 02/07/19 documented as of this encounter
--- OUTSIDE RECORDS SUMMARY | 2024-10-22 14:55 | XMS_ITS | Encounter Summary ---
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 Social History Tobacco Use Types Packs/Day Years Used Date Smoking Tobacco: Former Smokeless Tobacco: Never Alcohol Use Standard Drinks/Week Comments Yes 0 (1 standard drink = 0.6 oz pur e alcohol) Comments Unknown Sex and Gender Information Value Date Recorded Sex Assigned at Not on file Legal Sex Female 8:30 AM FEATHER STITCHER Gender Identity Female 10/06/2021 4:28 PM FEATHER STITCHER Sexual Orientation Choose not to disclose 2020 4:28 PM FEATHER STITCHER documented as of this encounter Plan of [...] atrial fibrillation (CMS/HCC) (HCC) Atrial fibrillation 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
--- OUTSIDE RECORDS SUMMARY | 2024-10-22 14:55 | XMS_ITS | Encounter Summary ---
Author Organization [facility] Medical [facility] Address [address] [facility] [address] [place] [address] Care Team Providers Care Group Segment Consultant Name Role Phone Priscilla Barrera MD Primary Care Provider [phone] Priscilla Barrera MD Primary Care Provider [phone] Kali Hunt MD Primary Care Provider [phone] Devaughn Macias MD Primary Care Provider Denis Platt MD Primary Care Provide r Gideon Campbell MD Primary Care Provider [phone] Encounter Details Date Type Department Care Team (Late st Contact Info) Description 10/29/2016 Orders Only [facility] Provider, MD Peggy [address] [place] [address] Social History Tobacco Use Types Packs/Day Years Used Date Smoking Tobacco: Former Cigarettes Q uit: 10/11/1977 Alcohol Use Standard Drinks/Week Comments Yes 0 (1 standard drink = 0.6 oz pur e alcohol) Comments Unknown Sex and Gender Information Value Date Recorded Sex Assigned at Not on file Legal Sex Female 8:30 AM ASSOCIATE CHIEF NURSE Gender Identity Female 10/06/2021 4:28 PM ASSOCIATE CHIEF NURSE Sexual Orientation Choose not to disclose 2020 4:28 PM ASSOCIATE CHIEF NURSE documented as of this encounter Plan [...] on filedocumented in this encounter Care Teams Group Segment Consultant Relationship Specialty Start Date End Date Priscilla Barrera MD [address] [place] [address] PCP - General 01/08/17 02/07/19 Priscilla Barrera MD [address] [place] [address] PCP - General 08/27/16 01/07/17 Kali Hunt MD [address] [employer] [place] [address] PCP - General Family Medicine 02/08/19 01/30/20 Devaughn Macias MD [address] [employer] [place] [address] PCP - General Family Medicine 01/31/20 01/13/22 Denis Platt MD [address] [place] [address] PCP - General Family Medicine 01/14/22 07/18/23 Gideon Campbell MD [address] [place] [address] [place] [address] PCP - General Family Medicine 07/19/23 documented as of this encounter
--- OUTSIDE RECORDS SUMMARY | 2024-10-22 14:55 | XMS_ITS | Encounter Summary ---
Author Organization [facility] Medical Group Address [address] [facility] [address] [place] [address] Care Team Providers Care Outsole Compressor Name Role Phone Priscilla Barrera MD Primary Care Provider [phone] Encounter Details Date Type Department Care Team (Late st Contact Info) Description 01/28/2017 Orders Only [facility] Center [address] [facility] [address] [address] Oracio Love MD [address] [facility] [address] [place] [address] Social History Tobacco Use Types Packs/Day Years Used Date Smoking Tobacco: Former Cigarettes Q uit: 10/11/1977 Alcohol Use Standard Drinks/Week Comments Yes 0 (1 standard drink = 0.6 oz pur e alcohol) Comments Unknown Sex and Gender Information Value Date Recorded Sex Assigned at Not on file Legal Sex Female 8:30 AM BRAZER INDUCTION Gender Identity Female 10/06/2021 4:28 PM BRAZER INDUCTION Sexual Orientation Choose not to disclose 2020 4:28 PM BRAZER INDUCTION documented as of this encounter Plan of Treatment Not on file documented as of this encounter Procedures Procedure Name Priority Date/Time Associated Diagnosis Comments DIFFERENTIAL AUTO Routine 01/28/2017 5:5 3 AM CDT documented in this encounter Results * Differential, auto (01/28/2017 5:53 AM CDT) Neutrophil pct 69.5 44.0 - 80.0 % [facility] Imm gran pct 0.4 0.0 - 1.0 % [facility] Lymphocyte pct 16.9 13.0 - 44.0 % [facility] Monocyte pct 10.1 2.0 - 11.0 % [facility] Eosinophil pct 2.5 0.0 - 6.0 % [facility] Basophil pct 0.6 0.0 - 3.0 % [facility] Neutrophil abs 3.28 1.70 - 6.50 K/cumm [facility] Imm gran abs 0.02 0.00 - 0.10 K/cumm [facility] Lymphocyte abs 0.80 0.80 - 3.30 K/cumm [facility] Monocyte abs 0.48 0.20 - 0.80 K/cumm [facility] Eosinophil abs 0.12 0.00 - 0.50 K/cumm [facility] Basophil abs 0.03 0.00 - 0.10 K/cumm [facility] Blood specimen (specimen) 01/28/2017 5:53 AM CDT 01/28/2017 6:12 AM CDT us Oracio Love MD LAB BLOOD ORDERABLES Fi nal Result [facility] [address] Department [place] [address] documented in this encounter Visit Diagnoses Not on filedocumented in this encounter Care Teams Outsole Compressor Relationship Specialty Start Date End Date Priscilla Barrera MD [address] [place] [address] PCP - General 01/08/17 02/07/19 documented as of this encounter
--- OUTSIDE RECORDS SUMMARY | 2024-10-22 14:55 | XMS_ITS | Encounter Summary ---
Author Organization [facility] Medical Group Address [address] [facility] [address] [place] [address] Care Team Providers Care Bradley Linebacker Crewmember Name Role Phone Priscilla Barrera MD Primary Care Provider [phone] Encounter Details Date Type Department Care Team (Latest Contact Info) Description 07/23/2017 Anticoagulation Visit [facility] [address] [facility] [address] [place] [address] Andrade Brown MD [facility] [place] [address] Paroxysmal atrial fibrillation (CMS/HCC) Social History Tobacco Use Types Packs/Day Years Used Date Smoking Tobacco: Former Smokeless Tobacco: Never Alcohol Use Standard Drinks/Week Comments Yes 0 (1 standard drink = 0.6 oz pur e alcohol) Comments Unknown Sex and Gender Information Value Date Recorded Sex Assigned at Not on file Legal Sex Female 8:30 AM FISHER LOBSTER Gender Identity Female 10/06/2021 4:28 PM FISHER LOBSTER Sexual Orientation Choose not to disclose 2020 4:28 PM FISHER LOBSTER documented as of this encounter Plan of Treatment Not on file documented as of this encounter Procedures Procedure Name Priority Date/Time Associated Diagnosis Comments PROTIME-INR Routine 07/23/2017 8:50 AM CDT documented in this encounter Results * (ABNORMAL) Protime-INR (07/23/2017 8:50 AM CDT) INR 2.16(A) 0.9 - 1.1 EX[facility]NAL LAB Comment:pt [phone] Blood specimen (specimen) us Historical Provider LAB BLOOD ORDERABLES Noris l Result EXTERNAL LAB documented in this encounter Visit Diagnoses Diagnosis Paroxysmal atrial fibrillation (CMS/HCC) (HCC) Atrial fibrillation documented in this encounter Care Teams Bradley Linebacker Crewmember Relationship Specialty Start Date End Date Priscilla Barrera MD [address] [place] [address] PCP - General 01/08/17 02/07/19 documented as of this encounter
--- OUTSIDE RECORDS SUMMARY | 2024-10-22 14:55 | XMS_ITS | Encounter Summary ---
Author Organization [facility] Medical Group Address [address] [facility] [address] [place] [address] Care Team Providers Care Hogshead Head Matcher Name Role Phone Priscilla Barrera MD Primary Care Provider [phone] Reason for Visit * Reason Comments Atrial Fibrillation Encounter Details Date Type Department Care Team (Latest Contact Info) Description 05/13/2017 10:30 AM CDT Office Visit [facility] [address] [facility] [address] [place] [address] Kath Byrd, CABINETMAKER MAINTENANCE [address] [facility] [address] [place] [address] Paroxysmal atrial fibrillation (CMS/HCC) (Primary Dx); 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 Patient Education A-fib (Atrial Fibrillation) WRAPPER STRIPPER: Atrial fibrillation (a-fib) is an irregular heartbeat. [...] in your arm or leg. Contact your donor relations manager or healthcare provider if: ?? Your target [...] plan for you. Follow up with your donor relations manager as directed: You will need regular blood tests and monitoring. Write down your questions so you remember to ask them during your visits. ?? 2016 [employer]. Information is for End User's use only and may not be sold, redistributed or otherwise used for commercial purposes. All illustrations and images included in CareNotes?? are the copyrighted property of [employer]. or [employer]. The above information is an educational manager only. It is not intended as medical [...] EKG. Orders: - ECG 12 lead 2. 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 3. Ventricular ectopy 4. PAD (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/HCC) documented in this encounter Miscellaneous Notes * Assessment & Plan Note - Kath Byrd NP - 05/17/2017 2:09 PM CDT Associated Problem(s): heel molder current use of anticoagulant therapy She remains anticoagulated with Coumadin.She has a [id number] score of 4(annualized stroke risk of 4%), therefore it is recommended that she remain anticoagulated for thromboprophylaxis. * Assessment & Plan Note - Kath Byrd NP - 05/17/2017 2:09 PM CDT Associated Problem(s): Atrial fibrillation ([facility]) [I48.91] Post repeat ablation of her highly [...] ECG ORDERABLES Edited Res ult - Final [facility] documented in this encounter Visit Diagnoses Diagnosis Paroxysmal atrial fibrillation (CMS/HCC) (HCC)- Primary Atrial fibrillation heel molder (current) use of anticoagulants [Z79.01] Long-term (current) [...] documented as of this encounter Care Teams Hogshead Head Matcher Relationship Specialty Start Date End Date Priscilla Barrera MD [address] [place] [address] PCP - General 01/08/17 02/07/19 documented as of this encounter
--- OUTSIDE RECORDS SUMMARY | 2024-10-22 14:55 | XMS_ITS | Encounter Summary ---
Author Organization [facility] Medical Group Address [address] [facility] [address] [place] [address] Care Team Providers Care Cashier Greeter Name Role Phone Priscilla Barrera MD Primary Care Provider [phone] Encounter Details Date Type Department Care Team (Late st Contact Info) Description 01/27/2017 Orders Only [facility]rhythmia Center [address] [facility] [address] [address] Oracio Love MD [address] [facility] [address] [place] [address] Social History Tobacco Use Types Packs/Day Years Used Date Smoking Tobacco: Former Cigarettes Q uit: 10/11/1977 Alcohol Use Standard Drinks/Week Comments Yes 0 (1 standard drink = 0.6 oz pur e alcohol) Comments Unknown Sex and Gender Information Value Date Recorded Sex Assigned at Not on file Legal Sex Female 8:30 AM PHOTOCOMPOSING KEYBOARD OPERATOR Gender Identity Female 10/06/2021 4:28 PM PHOTOCOMPOSING KEYBOARD OPERATOR Sexual Orientation Choose not to disclose 2020 4:28 PM PHOTOCOMPOSING KEYBOARD OPERATOR documented as of this encounter Plan of Treatment Not on file documented as of this encounter Procedures Procedure Name Priority Date/Time Associated Diagnosis Comments APTT Routine 01/27/2017 6:41 AM CDT documented in this encounter Results * aPTT (01/27/2017 6:41 AM CDT) aPTT 33.0 26.0 - 36.0 sec [facility] Comment: Interpretive Data Therapeutic Heparin Range: ??52-80 [...] LAB BLOOD ORDERABLES Fi nal Result [facility] [address] Department [place] [address] documented in this encounter Visit Diagnoses Not on filedocumented in this encounter Care Teams Cashier Greeter Relationship Specialty Start Date End Date Priscilla Barrera MD [address] [place] [address] PCP - General 01/08/17 02/07/19 documented as of this encounter
--- OUTSIDE RECORDS SUMMARY | 2024-10-22 14:55 | XMS_ITS | Encounter Summary ---
Author Organization [facility] Medical Group Address [address] [facility] [address] [place] [address] Care Team Providers Care Plaster Whittler Name Role Phone Priscilla Barrera MD Primary Care Provider [phone] Priscilla Barrera MD Primary Care Provider Priscilla Barrera MD Primary Care Provider [phone] Kali Hunt MD Primary Care Provider [phone] Devaughn Macias MD Primary Care Provider Denis Platt MD Primary Care Provide r Gideon Campbell MD Primary Care Provider [phone] Encounter Details Date Type Department Care Team (Late st Contact Info) Description 07/22/2016 Orders Only [facility] Provider, MD Peggy [address] [place] [address] Social History Tobacco Use Types Packs/Day Years Used Date Smoking Tobacco: Former Cigarettes Q uit: 10/11/1977 Alcohol Use Standard Drinks/Week Comments Yes 0 (1 standard drink = 0.6 oz pur e alcohol) Comments Unknown Sex and Gender Information Value Date Recorded Sex Assigned at Not on file Legal Sex Female 8:30 AM HUMAN RESOURCES MANAGER Gender Identity Female 10/06/2021 4:28 PM HUMAN RESOURCES MANAGER Sexual Orientation Choose not to disclose 2020 4:28 PM HUMAN RESOURCES MANAGER documented as of this encounter Plan [...] on filedocumented in this encounter Care Teams Plaster Whittler Relationship Specialty Start Date End Date Priscilla Barrera MD [address] [place] [address] PCP - General 01/08/17 02/07/19 Priscilla Barrera MD [address] [place] [address] PCP - General 08/27/16 01/07/17 Priscilla Barrera MD [address] [place] [address] PCP - General 01/30/16 08/26/16 Kali Hunt MD [address] [place] [address] PCP - General Family Medicine 02/08/19 01/30/20 Devaughn Macias MD [address] [place] [address] PCP - General Family Medicine 01/31/20 01/13/22 Denis Platt MD [address] [place] [address] PCP - General Family Medicine 01/14/22 07/18/23 Gideon Campbell MD [address] [facility] [address] [place] [address] PCP - General Family Medicine 07/19/23 documented as of this encounter
--- OUTSIDE RECORDS SUMMARY | 2024-10-22 14:55 | XMS_ITS | Encounter Summary ---
Author Organization [facility] Medical Group Address [address] [facility] [address] [place] [address] Care Team Providers Care Cable Installer Name Role Phone Priscilla Barrera MD Primary Care Provider [phone] Encounter Details Date Type Department Care Team (Latest Contact Info) Description 04/26/2017 Anticoagulation Visit [facility] [address] [facility] [address] [place] [address] Andrade Brown MD [facility] [place] [address] Paroxysmal atrial fibrillation (CMS/HCC); senior living (current) use of anticoagulants Social History Tobacco Use Types Packs/Day Years Used Date Smoking Tobacco: Former Cigarettes Q uit: 10/11/1977 Alcohol Use Standard Drinks/Week Comments Yes 0 (1 standard drink = 0.6 oz pur e alcohol) Comments Unknown Sex and Gender Information Value Date Recorded Sex Assigned at Not on file Legal Sex Female 8:30 AM DIE REPAIRER TRIMMER DIES Gender Identity Female 10/06/2021 4:28 PM DIE REPAIRER TRIMMER DIES Sexual Orientation Choose not to disclose 2020 4:28 PM DIE REPAIRER TRIMMER DIES documented as of this encounter Plan [...] Paroxysmal atrial fibrillation (CMS/HCC) (HCC) 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
--- OUTSIDE RECORDS SUMMARY | 2024-10-22 14:55 | XMS_ITS | Encounter Summary ---
Author Organization [facility] Address [address] [facility] [address] [place] [address] Care Team Providers Care Storage Consultant Name Role Phone Priscilla Barrera MD Primary Care Provider [phone] Encounter Details Date Type Department Care Team (Late st Contact Info) Description 05/28/2017 Telephone [facility] [address] [address] [address] [place] [address] Andrade Brown MD [facility] [place] [address] Social History Tobacco Use Types Packs/Day Years Used Date Smoking Tobacco: Former Smokeless Tobacco: Never Alcohol Use Standard Drinks/Week Comments Yes 0 (1 standard drink = 0.6 oz pur e alcohol) Comments Unknown Sex and Gender Information Value Date Recorded Sex Assigned at Not on file Legal Sex Female 8:30 AM MACHINE MILKER Gender Identity Female 10/06/2021 4:28 PM MACHINE MILKER Sexual Orientation Choose not to disclose 2020 4:28 PM MACHINE MILKER documented as of this encounter Miscellaneous Notes * Telephone Encounter - Nalini Zazueta RN - 05/28/2017 11:09 AM CDT Will fax standing order to [facility] per request documented in this encounter Plan of Treatment Not on file documented as of this encounter Visit Diagnoses Not on filedocumented in this encounter Care Teams Storage Consultant Relationship Specialty Start Date End Date Priscilla Barrera MD [address] [place] [address] PCP - General 01/08/17 02/07/19 documented as of this encounter
--- OUTSIDE RECORDS SUMMARY | 2024-10-22 14:55 | XMS_ITS | Encounter Summary ---
Author Organization [facility] Medical [facility] Address [address] [facility] [address] [place] [address] Care Team Providers Care Polisher Apprentice Name Role Phone Priscilla Barrera MD Primary Care Provider [phone] Encounter Details Date Type Department Care Team (Late st Contact Info) Description 01/28/2017 Orders Only Arrhythmia Center [address] [facility] [address], [place] [address] Oracio Love MD [address] [facility] [address] [place] [address] Social History Tobacco Use Types Packs/Day Years Used Date Smoking Tobacco: Former Cigarettes Q uit: 10/11/1977 Alcohol Use Standard Drinks/Week Comments Yes 0 (1 standard drink = 0.6 oz pur e alcohol) Comments Unknown Sex and Gender Information Value Date Recorded Sex Assigned at Not on file Legal Sex Female 8:30 AM WOOD BARKER Gender Identity Female 10/06/2021 4:28 PM WOOD BARKER Sexual Orientation Choose not to disclose 2020 4:28 PM WOOD BARKER documented as of this encounter Plan of Treatment Not on file documented as of this encounter Procedures Procedure Name Priority Date/Time Associated Diagnosis Comments EGFR Routine 01/28/2017 5:53 AM CDT documented in this encounter Results * eGFR (01/28/2017 5:53 AM CDT) eGFR 43 mL/min/1.7 3 m2 [facility] Comment: Interpretive Data Reference Interval Normal ?>/= 90 mL/min/1.73m2 Mildly decreased* ? 60 - 89 mL/min/1.73m2 Mildly to moderately decreased ?45 - 59 mL/min/1.73m2 Moderately to severely decreased ??30 - 44 mL/min/1.73m2 Severely decreased ?15 - 29 mL/min/1.73m2 Kidney Failure ?< 15 ??mL/min/1.73m2 *Relative to young adult level If -Finnish multiply value by 1.16. Estimated glomerular filtration [...] MD LAB BLOOD ORDERABLES Fi nal Result [facility] [address] Department of [place] [address] documented in this encounter Visit Diagnoses Not on filedocumented in this encounter Care Teams Polisher Apprentice Relationship Specialty Start Date End Date Priscilla Barrera MD [address] [place] [address] PCP - General 01/08/17 02/07/19 documented as of this encounter
--- OUTSIDE RECORDS SUMMARY | 2024-10-22 14:55 | XMS_ITS | Encounter Summary ---
Author Organization [facility] Medical Group Address [address] [facility] [address] [place] [address] Care Team Providers Care Gravity Prospector Name Role Phone Priscilla Barrera MD Primary Care Provider [phone] Reason for Visit * Reason Comments Follow-up 4 mo follow up a-fib Encounter Details Date Type Department Care Team (Latest Contact Info) Description 04/07/2017 10:45 AM CDT Office Visit [facility] [address] [facility] [address] [place] [address] Andrade Brown MD [facility] [place] [id number] Hyperlipidemia, unspecified hyperlipidemia type (Primary Dx); Paroxysmal atrial fibrillation (CMS/HCC); 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
--- OUTSIDE RECORDS SUMMARY | 2024-10-22 14:55 | XMS_ITS | Encounter Summary ---
Author Organization [facility] Medical Group Address [address] [facility] [address] [place] [address] Care Team Providers Care Care Director Name Role Phone Priscilla Barrera MD Primary Care Provider [phone] Priscilla Barrera MD Primary Care Provider Kali Hunt MD Primary Care Provider Devaughn Macias MD Primary Care Provider Denis Platt MD Primary Care Provide r Gideon Campbell MD Primary Care Provider [phone] Encounter Details Date Type Department Care Team (Late st Contact Info) Description 12/24/2016 Orders Only [facility] Provider, MD Peggy [address] [place] [address] Social History Tobacco Use Types Packs/Day Years Used Date Smoking Tobacco: Former Cigarettes Q uit: 10/11/1977 Alcohol Use Standard Drinks/Week Comments Yes 0 (1 standard drink = 0.6 oz pur e alcohol) Comments Unknown Sex and Gender Information Value Date Recorded Sex Assigned at Not on file Legal Sex Female 8:30 AM SEARCH ENGINE MARKETING SPECIALIST Gender Identity Female 10/06/2021 4:28 PM SEARCH ENGINE MARKETING SPECIALIST Sexual Orientation Choose not to disclose 2020 4:28 PM SEARCH ENGINE MARKETING SPECIALIST documented as of this encounter Plan [...] filedocumented in this encounter Care Teams Care Director Relationship Specialty Start Date End Date Priscilla Barrera MD [address] [place] [address] PCP - General 01/08/17 02/07/19 Priscilla Barrera MD [address] [place] [address] PCP - General 08/27/16 01/07/17 Kali Hunt MD [id number] [place] [address] PCP - General Family Medicine 02/08/19 01/30/20 Devaughn Macias MD [id number] [place] [address] PCP - General Family Medicine 01/31/20 01/13/22 Denis Platt MD [address] [place] [address] PCP - General Family Medicine 01/14/22 07/18/23 Gideon Campbell MD [address] [place] [address] [place] [address] PCP - General Family Medicine 07/19/23 documented as of this encounter
--- OUTSIDE RECORDS SUMMARY | 2024-10-22 14:55 | XMS_ITS | Encounter Summary ---
Author Organization [facility] Address [address] [facility] [address] [place] [address] Care Team Providers Care Machine Adjuster Leader Case Trim Name Role Phone Priscilla Barrera MD Primary Care Provider Encounter Details Date Type Department Care Team (Late st Contact Info) Description 01/27/2017 Orders Only [facility] [address] [facility] [address] [place] [address] Oracio Love MD [address] [facility] [address] [place] [address] Social History Tobacco Use Types Packs/Day Years Used Date Smoking Tobacco: Former Cigarettes Q uit: 10/11/1977 Alcohol Use Standard Drinks/Week Comments Yes 0 (1 standard drink = 0.6 oz pur e alcohol) Comments Unknown Sex and Gender Information Value Date Recorded Sex Assigned at Not on file Legal Sex Female 8:30 AM COIL REPAIR TECHNICIAN Gender Identity Female 10/06/2021 4:28 PM COIL REPAIR TECHNICIAN Sexual Orientation Choose not to disclose 2020 4:28 PM COIL REPAIR TECHNICIAN documented as of this encounter Plan of Treatment Not on file documented as of this encounter Procedures Procedure Name Priority Date/Time Associated Diagnosis Comments PROTIME-INR Routine 01/27/2017 6:41 AM CDT documented in this encounter Results * Protime-INR (01/27/2017 6:41 AM CDT) PT 12.1 10.0 - 13.0 sec [facility] Comment: Note: Coagulation specimens must be [...] any questions. INR 1.0 0.9 - 1.2 [facility] Comment: INDICATION: ORTHOPEDIC Total Hip and Knee Arthroplasty ?? 1.8 to 2.6 Hip Fracture ?1.8 to 2.6 CARDIOLOGY Atrial Fibrillation ? 2.0 to 3.0 Cardiomyopathy ?2.0 to 3.0 Myocardial Infarction ? 2.5 to 3.0 Non-[place] Heart Valve ?2.0 to 3.5 TREATMENT OF [...] MD LAB BLOOD ORDERABLES Fi nal Result [facility] [address] [place] [address] documented in this encounter Visit Diagnoses Not on filedocumented in this encounter Care Teams Machine Adjuster Leader Case Trim Relationship Specialty Start Date End Date Priscilla Barrera MD [address] [place] [address] PCP - General 01/08/17 02/07/19 documented as of this encounter
--- OUTSIDE RECORDS SUMMARY | 2024-10-22 14:55 | XMS_ITS | Encounter Summary ---
Author Organization [facility] Address [address] [facility] [address] [place] [address] Care Team Providers Care Quality Control Name Role Phone Priscilla Barrera MD Primary Care Provider [phone] Priscilla Barrera MD Primary Care Provider [phone] Priscilla Barrera MD Primary Care Provider [phone] Kali Hunt MD Primary Care Provider [phone] Devaughn Macias MD Primary Care Provider Denis Platt MD Primary Care Provide r Gideon Campbell MD Primary Care Provider [phone] Encounter Details Date Type Department Care Team (Late st Contact Info) Description 07/23/2016 Orders Only [facility] Provider, MD Peggy [address] [place] [address] Social History Tobacco Use Types Packs/Day Years Used Date Smoking Tobacco: Former Cigarettes Q uit: 10/11/1977 Alcohol Use Standard Drinks/Week Comments Yes 0 (1 standard drink = 0.6 oz pur e alcohol) Comments Unknown Sex and Gender Information Value Date Recorded Sex Assigned at Not on file Legal Sex Female 8:30 AM COST CONTROLLER Gender Identity Female 10/06/2021 4:28 PM COST CONTROLLER Sexual Orientation Choose not to disclose 2020 4:28 PM COST CONTROLLER documented as of this encounter Plan of [...] on filedocumented in this encounter Care Teams Quality Control Relationship Specialty Start Date End Date Priscilla Barrera MD [address] [place] [address] PCP - General 01/08/17 02/07/19 Priscilla Barrera MD [address] [place] [address] PCP - General 08/27/16 01/07/17 Priscilla Barrera MD [address] [place] [address] PCP - General 01/30/16 08/26/16 Kali Hunt MD [address] [place] [address] PCP - General Family Medicine 02/08/19 01/30/20 Devaughn Macias MD [address] [place] [address] PCP - General Family Medicine 01/31/20 01/13/22 Denis Platt MD [address] [place] [address] PCP - General Family Medicine 01/14/22 07/18/23 Gideon Campbell MD [address] [facility] [address] [place] [address] PCP - General Family Medicine 07/19/23 documented as of this encounter
--- OUTSIDE RECORDS SUMMARY | 2024-10-22 14:55 | XMS_ITS | Encounter Summary ---
Author Organization [facility] Address [address] [facility] [address] [place] [address] Care Team Providers Care Lens Cleaner Name Role Phone Priscilla Barrera MD Primary Care Provider [phone] Encounter Details Date Type Department Care Team (Latest Contact Info) Description 03/29/2017 Anticoagulation Visit [facility] [address] [facility] [address] [place] [address] Andrade Brown MD [facility] [place] [address] Paroxysmal atrial fibrillation (CMS/HCC); snf (current) use of anticoagulants Social History Tobacco Use Types Packs/Day Years Used Date Smoking Tobacco: Former Cigarettes Q uit: 10/11/1977 Alcohol Use Standard Drinks/Week Comments Yes 0 (1 standard drink = 0.6 oz pur e alcohol) Comments Unknown Sex and Gender Information Value Date Recorded Sex Assigned at Not on file Legal Sex Female 8:30 AM CONTROL SYSTEMS DEVELOPER Gender Identity Female 10/06/2021 4:28 PM CONTROL SYSTEMS DEVELOPER Sexual Orientation Choose not to disclose 2020 4:28 PM CONTROL SYSTEMS DEVELOPER documented as of this encounter Plan [...] Paroxysmal atrial fibrillation (CMS/HCC) (HCC) 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
--- OUTSIDE RECORDS SUMMARY | 2024-10-22 14:55 | XMS_ITS | Encounter Summary ---
Author Organization [facility] Address [address] [facility] [address] [place] [address] Care Team Providers Care Black Oxide Operator Name Role Phone Priscilla Barrera MD Primary Care Provider [phone] Encounter Details Date Type Department Care Team (Latest Contact Info) Description 05/26/2017 Anticoagulation Visit [facility] [address] [facility] [address] [place] [address] Andrade Brown MD [facility] [place] [address] Paroxysmal atrial fibrillation (CMS/HCC); care home (current) use of anticoagulants Social History Tobacco Use Types Packs/Day Years Used Date Smoking Tobacco: Former Smokeless Tobacco: Never Alcohol Use Standard Drinks/Week Comments Yes 0 (1 standard drink = 0.6 oz pur e alcohol) Comments Unknown Sex and Gender Information Value Date Recorded Sex Assigned at Not on file Legal Sex Female 8:30 AM FAMILY INDEPENDENCE CASE MANAGER Gender Identity Female 10/06/2021 4:28 PM FAMILY INDEPENDENCE CASE MANAGER Sexual Orientation Choose not to disclose 2020 4:28 PM FAMILY INDEPENDENCE CASE MANAGER documented as of this encounter [...] Paroxysmal atrial fibrillation (CMS/HCC) (HCC) 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
--- OUTSIDE RECORDS SUMMARY | 2024-10-22 14:55 | XMS_ITS | Encounter Summary ---
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 [...] file Legal Sex Female 8:30 AM SUPERVISOR HARD CANDY Gender Identity Female 10/06/2021 4:28 PM SUPERVISOR HARD CANDY Sexual Orientation Choose not to disclose 2020 4:28 PM SUPERVISOR HARD CANDY documented as of this encounter Plan of Treatment Not on file documented as of this encounter Procedures Procedure Name Priority Date/Time Associated Diagnosis Comments PROTIME-INR Routine 08/27/2017 3:08 PM SUPERVISOR HARD CANDY documented in this encounter Results * (ABNORMAL) Protime-INR (08/27/2017 3:08 PM SUPERVISOR HARD CANDY) INR 2.36(A) 0.9 - 1.1 EXTERNAL LAB Blood specimen (specimen) us Historical Provider LAB BLOOD ORDERABLES Noris mauro Result EXTERNAL LAB documented in this encounter Visit Diagnoses Diagnosis Paroxysmal atrial fibrillation (CMS/HCC) (HCC) Atrial fibrillation [facility] current use of anticoagulant therapy documented in this encounter Care Teams Golf Ball Inspector Relationship Specialty Start Date End Date Priscilla Barrera MD [address] [place] [address] PCP - General 01/08/17 02/07/19 documented as of this encounter
== END 2024-10-19 08:33 | disposition swing bed (61) | DRG 280 ==
LOC: CHSED 08:13 → CHS2ND 10-16 07:29
PROVIDERS: Internal Medicine Critical Care Medicine; Nurse Practitioner Family; Admitting Provider Internal Medicine; Emergency Provider Family Medicine; Visit Provider Nurse Practitioner Acute Care
DX: I13.0 Hypertensive heart and chronic kidney disease with heart failure and stage 1 through stage 4 chronic kidney disease, or unspecified chronic kidney disease (principal); I50.33 Acute on chronic diastolic (congestive) heart failure; I21.4 Non-ST elevation (NSTEMI) myocardial infarction; E46 Unspecified protein-calorie malnutrition; I48.20 Chronic 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, unspecified; N17.9 Acute kidney failure, unspecified; D50.9 Iron deficiency anemia, unspecified; E88.09 Other disorders of plasma-protein metabolism, not elsewhere classified; E78.5 Hyperlipidemia, unspecified; Z87.891 Personal history of nicotine dependence; Z79.01 Long term (current) use of anticoagulants
CPT/HCPCS: 36415; 36430; 71045; 80053; 81003; 82272; 82550; 82728; 83540; 83550; 83690; 83880; 84443; 84484; 85014; 85018; 85025; 85027; 85610; 85730; 86850; 86900; 86901; 86920; 87637; 93005; 93306; 96361; 96372; 96374; 96375; 97110; 97161; 97165; 97530; 97535; 99285; A9270; G0378; J1650; J1756; J1940; J2060; J2270; J7050; P9016; P9047

== ENCOUNTER 2024-12-12 13:47 | Outpatient (CLI) | payer MEDICARE, SELFPAY ==
--- NOTE | ~2024-12-12 | XR_ITS ---
[id number] Ordering provider: Gwyn Kim DO History: . Polyarthritis,GENERAL WEAR AND TEAR PAIN . Comparison: None. FINDINGS: BONES: No acute fracture or dislocation. Osteopenia of the bones. JOINT SPACES: Severe narrowing of the medial and lateral compartments. SOFT TISSUES: Fluid in the suprapatellar bursa. IMPRESSION: No acute osseous abnormality right knee. Severe osteoarthritic changes. Reviewed, dictated and finalized at location A. OR MARKETING SPECIALIST
--- NOTE | ~2024-12-12 | XR_ITS ---
XR shoulder RT min 2V Ordering provider: Gwyn Kim DO History: . Polyarthritis,GENERAL WEAR AND TEAR PAIN . Comparison: None. FINDINGS: BONES: No acute fracture or dislocation. JOINT SPACES: The acromioclavicular joint is normal. The glenohumeral joint is severely narrowed. SOFT TISSUES: Normal. IMPRESSION: No acute osseous abnormality right shoulder. Severe osteoarthritic changes. Reviewed, dictated and finalized at location A. PHONIC NURSE
--- NOTE | ~2024-12-12 | XR_ITS ---
XR shoulder LT min 2V Ordering provider: Gwyn Kim DO History: . Polyarthritis,GENERAL WEAR AND TEAR PAIN . Comparison: None. FINDINGS: BONES: Osteolytic lesions are seen in the proximal left humerus which may indicate metastatic lesions . Osteolytic lesion is also seen in the greater tuberosity and in the lateral scapula. JOINT SPACES: The acromioclavicular joint is normal. The glenohumeral joint is severely narrowed. SOFT TISSUES: Normal. IMPRESSION: No acute osseous abnormality left shoulder. Multiple osteolytic lesions in the scapula and left humerus. Metastatic lesions cannot be excluded. C linical correlation advised. Severe osteoarthritic changes. Reviewed, dictated and finalized at location A. SOLDERER IMPRESSION: No acute osseous abnormality left shoulder. Multiple osteolytic lesions in the scapula and left humerus. Metastatic lesions cannot be excluded. Clinical correlation advised. Severe osteoarthritic changes.
--- NOTE | ~2024-12-12 | XR_ITS ---
[id number] Ordering provider: Gwyn Kim DO History: . Polyarthritis,GENERAL WEAR AND TEAR PAIN . Comparison: None. FINDINGS: BONES: No acute fracture or dislocation. Osteopenia of the bones. JOINT SPACES: Severe Narrowing of the medial and lateral compartment. SOFT TISSUES: Normal. IMPRESSION: No acute osseous abnormality left knee. Severe osteoarthritic changes. Reviewed, dictated and finalized at location A. ISTRY FACULTY MEMBER
--- OUTSIDE RECORDS SUMMARY | 2024-12-12 15:56 | XMS_ITS | Encounter Summary ---
Author Organization [facility] Address [address] [place] [address] Phone Care Team Providers Care Health Information Clerk Name Role Phone Provider, Not On File Primary Care Provider Unav ailable Denis Platt MD Primary Care Provider Gideon Campbell MD Primary Care Provider Encounter Details Date Type Department Care Team (Late st Contact Info) Description 03/24/2022 Transcribe Orders [facility] Preop[facility]Pacu [facility] [address] [place] [phone] Herber Knott MD [address] [place] [address], [address] [place] [address] Pre-op testing (Primary Dx) Social [...] ABO TYPING O 04/04/2022 11:22 AM CDT [facility]OD [facility] RH Positive 04/04/2022 11:22 AM CDT [facility] ABSC Negative 04/04/2022 11:22 AM CDT [facility] Blood Venipuncture / Unknown 04/04/2022 9:50 AM CDT 04/04/2022 10:04 AM CDT Herber Knott MD BLOOD BANK ORDERABLES Edited R esult - Final [facility]OD [facility] #[address] [place] [address] * SARS-COV-2 BY MOLECULAR (04/04/2022 9:46 AM CDT) Pathologist [facility] SARSCOV2 NOT DETECTED (Referenc e Range for this test is Not Detected) [facility] [place] ID NOW 04/04/2022 10:33 AM CDT [facility] Comment:This test was perfor med by a MOLECULAR, NON-PCR method Other NASAL STRUCTURE / Unknown Non-Phlebotomy Collection / Unknown 04/04/2022 9:46 AM CDT 04/04/2022 10:04 AM CDT Narrative [facility] - 04/04/2022 10:33 AM CDT This [...] information for Clinicians can be found at: https://www.fda.gov/media/333927/download Additional information for Patients can be found at: https://www.fda.gov/media/310812/download us Herber Knott MD MICROBIOLOGY - GENERAL ORDERAB LES Final Result [facility] [address] [place] [address] documented in this encounter Visit Diagnoses Diagnosis Pre-op testing- Primary Preoperative examination, unspecified documented in this encounter Care Teams Health Information Clerk Relationship Specialty Start Date End Date Provider, Not On File [place] PCP - General 03/19/22 04/07/22 Denis Platt MD [address] [place] [address] PCP - General Pediatrics 04/08/22 02/15/24 Gideon Campbell MD [address] [place] [address] [place] [address] PCP - General Line Installation Supervisor 02/16/24 documented as of this encounter
--- OUTSIDE RECORDS SUMMARY | 2024-12-12 15:56 | XMS_ITS | Encounter Summary ---
Author Organization [facility] Address [address] [facility] [address] [place] [address] Care Team Providers Care Ror Engineer Name Role Phone Priscilla Barrera MD Primary Care Provider [phone] Priscilla Barrera MD Primary Care Provider [phone] Kali Hunt MD Primary Care Provider Devaughn Macias MD Primary Care Provider Denis Platt MD Primary Care Provide r Gideon Campbell MD Primary Care Provider [phone] Encounter Details Date Type Department Care Team (Late st Contact Info) Description 10/29/2016 Orders Only [facility] Provider, MD Peggy [address] [place] [address] Social History Tobacco Use Types Packs/Day Years Used Date Smoking Tobacco: Former Cigarettes Q uit: 10/11/1977 Alcohol Use Standard Drinks/Week Comments Yes 0 (1 standard drink = 0.6 oz pur e alcohol) Comments Unknown Sex and Gender Information Value Date Recorded Sex Assigned at Not on file Legal Sex Female 8:30 AM PARQUET FLOOR LAYER'S HELPER Gender Identity Female 10/06/2021 4:28 PM PARQUET FLOOR LAYER'S HELPER Sexual Orientation Choose not to disclose 2020 4:28 PM PARQUET FLOOR LAYER'S HELPER documented as of this encounter Plan [...] on filedocumented in this encounter Care Teams Ror Engineer Relationship Specialty Start Date End Date Priscilla Barrera MD [address] [place] [address] PCP - General 01/08/17 02/07/19 Priscilla Barrera MD [address] [place] [address] PCP - General 08/27/16 01/07/17 Kali Hunt MD [address] [place] [address] PCP - General Family Medicine 02/08/19 01/30/20 Devaughn Macias MD [address] [place] [address] PCP - General Family Medicine 01/31/20 01/13/22 Denis Platt MD [address] [place] [address] PCP - General Family Medicine 01/14/22 07/18/23 Gideon Campbell MD [address] [place] [address] [place] [address] PCP - General Family Medicine 07/19/23 documented as of this encounter
--- OUTSIDE RECORDS SUMMARY | 2024-12-12 15:56 | XMS_ITS | Continuity of Care Document ---
Author Organization [facility] Address [address] [place] [address] Phone Care Team Providers Care Contestant Coordinator Name Role Phone Zimmer OD, Heber Unavailable [...] Diagnoses Date Provider Providers Copied on Encounter [facility], [address], [place], [place], [id number], [place] tel:[phone] [facility] No Information [phone] Zimmer OD Heber. [address] , [address], [place], [address], [place]. tel:[phone] [facility], [address] [place] [address] [address], [place], [place], [id number], tel:[phone] [facility] No Information [phone] Zimmer OD Heber. [address] , [address], [place], [place], [facility], [place]. tel:[phone] [facility], [address] [place] [address] [address], [place], [place], [id number], [place] tel:[phone] [facility] No Information [phone] Doisy Edward. [address] , [address], [place], [facility] [place], [place]. tel:[phone] Referring Provider: Heber Zimmer OD A, [facility] [address], [place], [facility]. tel:[phone] Office/outpat ient Visit, [facility], [address] [place] [address] [address], [place], [place], [id number], tel:[phone] [facility] No Information 201 0 Doisy Edward. [address], [place], [facility] [place], [place]. tel:[phone] Referring Provider: Heber Zimmer OD A, [facility] [address], [place], [facility]. tel:[phone] [facility], [address] [place] [address] [address], [place], [place], [address], [place] tel:[phone] [facility] No Information [phone] Zimmer OD Heber. [address] , [address], [place], [facility] [place], [place]. tel:[phone] [facility], [address] [place] [address] [address], [place], [place], [id number], [place] tel:[phone] [facility] No Information [phone] Doisy Edward. [address] , [address], [place], [facility], . tel:[phone] [facility], [address] [place] [address] [address], [place], [place], [id number], tel:[phone] [facility] No Information 8[address] Sathya Nain. [address] [facility] [address], [address], [place], [facility], . tel:[phone] Referring Provider: Heber Plunkett, [address], [place], [facility]. tel:[phone] Office/outpat ient Visit, [facility], [address] [place] [address] [address], [place], [place], [id number], tel:[phone] [facility] No Information [address] [facility] Nain. [facility] [address], [address], [place], [facility], . tel:[phone] Referring Provider: Heber Plunkett, [address], [place], [facility]. tel:[phone] [facility], [address] [place] [address] [address], [place], [place], [address], tel:[phone] [facility] No Information 5200 9 Zimmer OD Heber. [facility] [address] [address], [address], [place], [facility], [place]. tel:[phone] Family History Family Member Type Diagnosis Age [...]
--- OUTSIDE RECORDS SUMMARY | 2024-12-12 15:56 | XMS_ITS | Encounter Summary ---
Author Organization [facility] Address [address] [facility] [address] [place] [address] Care Team Providers Care Bilingual Inside Sales Representative Name Role Phone Priscilla Barrera MD Primary Care Provider [phone] Priscilla Barrera MD Primary Care Provider [phone] Kali Hunt MD Primary Care Provider [phone] Devaughn Macias MD Primary Care Provider Denis Platt MD Primary Care Provide r Gideon Campbell MD Primary Care Provider [phone] Encounter Details Date Type Department Care Team (Late st Contact Info) Description 12/24/2016 Orders Only [facility] Provider, MD Peggy [address] [place] [address] Social History Tobacco Use Types Packs/Day Years Used Date Smoking Tobacco: Former Cigarettes Q uit: 10/11/1977 Alcohol Use Standard Drinks/Week Comments Yes 0 (1 standard drink = 0.6 oz pur e alcohol) Comments Unknown Sex and Gender Information Value Date Recorded Sex Assigned at Not on file Legal Sex Female 8:30 AM TRAILER BODY ASSEMBLER Gender Identity Female 10/06/2021 4:28 PM TRAILER BODY ASSEMBLER Sexual Orientation Choose not to disclose 2020 4:28 PM TRAILER BODY ASSEMBLER documented as of this encounter Plan [...] on filedocumented in this encounter Care Teams Bilingual Inside Sales Representative Relationship Specialty Start Date End Date Priscilla Barrera MD [address] [place] [address] PCP - General 01/08/17 02/07/19 Priscilla Barrera MD [address] [place] [address] PCP - General 08/27/16 01/07/17 Kali Hunt MD [address] [place] [address] PCP - General Family Medicine 02/08/19 01/30/20 Devaughn Macias MD [address] [place] [address] PCP - General Family Medicine 01/31/20 01/13/22 Denis Platt MD [address] [place] [address] PCP - General Family Medicine 01/14/22 07/18/23 Gideon Campbell MD [address] [place] [address] [place] [address] PCP - General Family Medicine 07/19/23 documented as of this encounter
--- OUTSIDE RECORDS SUMMARY | 2024-12-12 15:56 | XMS_ITS | Encounter Summary ---
Author Organization [facility] Address [address] [place] [address] Care Team Providers Care Road Service Locksmith Name Role Phone Devaughn Macias MD Primary Care Provider Denis Platt MD Primary Care Provide r Gideon Campbell MD Primary Care Provider [phone] Encounter Details Date Type Department Care Team (Late st Contact Info) Description 10/17/2021 Telephone [facility] [address] [place] [address] Katie Hendrix, DORINDA Social History Tobacco Use Types Packs/Day Years Used Date Smoking Tobacco: Former Cigarettes Q uit: 09/28/1978 Smokeless Tobacco: Never Alcohol Use Standard Drinks/Week Comments Yes 0 (1 standard drink = 0.6 oz pur e alcohol) Comments Unknown Sex and Gender Information Value Date Recorded Sex Assigned at Not on file Legal Sex Female 8:30 AM SENIOR WIND ENERGY CONSULTANT Gender Identity Female 10/06/2021 4:28 PM SENIOR WIND ENERGY CONSULTANT Sexual Orientation Choose not to disclose 2020 4:28 PM SENIOR WIND ENERGY CONSULTANT documented as of this encounter Plan of Treatment Not on file documented as of this encounter Visit Diagnoses Not on filedocumented in this encounter Care Teams Road Service Locksmith Relationship Specialty Start Date End Date Devaughn Macias MD PCP - General Family Medicine 01/31/20 01/13/22 Denis Platt MD [address] [place] [address] PCP - General Family Medicine 01/14/22 07/18/23 Gideon Campbell MD [address] [facility] [address] [address] PCP - General Family Medicine 07/19/23 documented as of this encounter
--- OUTSIDE RECORDS SUMMARY | 2024-12-12 15:56 | XMS_ITS | Referral Summary ---
Author Organization [facility] Address [address] [place] [address] Care Team Providers Care Hr Representative Name Role Phone Gideon Campbell MD Primary Care Provider [phone] Allergies No known active allergies Medications ascorbic [...] 06/15/2023 Assessment & Plan (10/18/2023 2:47 PM MEAT HANGER): Worsening sx at this time Weight loss 01/27/2023 Assessment & Plan (10/18/2023 2:38 PM MEAT HANGER): Wt Readings from Last 3 Encounters: 10/18/23 [...] is recommended that he remain anticoagulated for thromboprophylaxis.[id number]=6. Left carotid bruit 10/13/2017 Ventricular ectopy 05/17/2017 [...] 04/07/2017 Assessment & Plan (10/18/2023 2:39 PM MEAT HANGER): BP Readings from Last 3 Encounters: 10/18/23 160/78 10/18/23 168/68 07/29/23 130/60 Vitals BP 160/78 (BP Location: Left arm, Patient Position: Sitting) Pulse 63 Resp 16 Ht 161.3 cm (5' 3.5 ) Wt 59.1 kg (130 lb 4.8 oz) SpO2 99% BMI 22.72 kg/m Lab Results Component Value Date POTASSIUM 4.0 [...] lb 4.8 oz) SpO2 99% BMI 22.19 kg/m Lab Results Component Value Date POTASSIUM 4.0 [...] EKG. Assessment & Plan (08/19/2017 10:05 AM MEAT HANGER): Post repeat ablation of her highly symptomatic [...] an office visit and 12 lead EKG. longterm current use of anticoagulant therapy 0 03/29/2017 [...] bleeding Assessment & Plan (08/19/2017 10:05 AM MEAT HANGER): She remains anticoagulated on Coumadin. She has a IFC7ZW-UAZw score of 4, therefore it is recommended that she remain anticoagulated for thromboprophylaxis. Assessment & Plan (05/17/2017 2:10 PM CDT): She remains anticoagulated with Coumadin.She has a VGM9XW5-PDPj score of 4(annualized stroke risk of 4%), therefore it is recommended that she remain anticoagulated for thromboprophylaxis. Resolved Problems Problem Noted Date Diagnosed Date Resolved Date Primary osteoarthritis of left hip 09/12/2020 04/21/2022 Immunizations Immunization Administration Dates Next Due Influenza, Quad, Adjuvantate [...] on file Legal Sex Female 8:30 AM MEAT HANGER Gender Identity Female 10/06/2021 4:28 PM MEAT HANGER Sexual Orientation Choose not to disclose 2020 4:28 PM MEAT HANGER Last Filed Vital Signs Vital Sign Reading Time Taken Comments Blood Pressure 153/58 01/31/2024 9:55 AM CDT Pulse 71 01/31/2024 9:55 AM CDT Temperature 36.4 C (97.6 F) 01/31/2024 9:55 AM CDT Respiratory Rate 20 01/31/2024 9:55 AM CDT Oxygen Saturation 98% 01/31/2024 9:55 AM CDT Inhaled Oxygen Concentration - - Weight 56 kg (123 lb 6.4 oz) 01/31/2024 9:55 AM CDT Height 161.3 cm (5' 3.5 ) 12/13/2023 10:47 AM CS T Body Mass Index 21.52 12/13/2023 10:47 AM MEAT HANGER Plan of Treatment Not on file Insurance MEDICARE [facility] MEDICARE SOLUTIONS MEDICARE SOLUTIONS Care Teams Hr Representative Relationship Specialty Start Date End Date Gideon Campbell MD [address] [place] [address] [place] [address] PCP - General Family Medicine 07/19/23
--- OUTSIDE RECORDS SUMMARY | 2024-12-12 15:56 | XMS_ITS | Encounter Summary ---
Author Organization [facility] Address [address] [facility] [address] [place] [address] Care Team Providers Care Prop And Scenery Maker Name Role Phone Priscilla Barrera MD Primary Care Provider [phone] Priscilla Barrera MD Primary Care Provider [phone] Priscilla Barrera MD Primary Care Provider [phone] Kali Hunt MD Primary Care Provider [phone] Devaughn Macias MD Primary Care Provider Denis Platt MD Primary Care Provide r Gideon Campbell MD Primary Care Provider [phone] Encounter Details Date Type Department Care Team (Late st Contact Info) Description 07/23/2016 Orders Only [facility] Provider, MD Peggy [address] [place] [address] Social History Tobacco Use Types Packs/Day Years Used Date Smoking Tobacco: Former Cigarettes Q uit: 10/11/1977 Alcohol Use Standard Drinks/Week Comments Yes 0 (1 standard drink = 0.6 oz pur e alcohol) Comments Unknown Sex and Gender Information Value Date Recorded Sex Assigned at Not on file Legal Sex Female 8:30 AM ARTIFICIAL PEARL MAKER Gender Identity Female 10/06/2021 4:28 PM ARTIFICIAL PEARL MAKER Sexual Orientation Choose not to disclose 2020 4:28 PM ARTIFICIAL PEARL MAKER documented as of this encounter Plan [...] on filedocumented in this encounter Care Teams Prop And Scenery Maker Relationship Specialty Start Date End Date Priscilla Barrera MD [address] [place] [address] PCP - General 01/08/17 02/07/19 Priscilla Barrera MD [address] [place] [address] PCP - General 08/27/16 01/07/17 Priscilla Barrera MD [address] [place] [address] PCP - General 01/30/16 08/26/16 Kali Hunt MD [address] [place] [address] PCP - General Family Medicine 02/08/19 01/30/20 Devaughn Macias MD [address] [place] [address] PCP - General Family Medicine 01/31/20 01/13/22 Denis Platt MD [address] [place] [address] PCP - General Family Medicine 01/14/22 07/18/23 Gideon Campbell MD [address] [facility] [address] [place] [address] PCP - General Family Medicine 07/19/23 documented as of this encounter
--- OUTSIDE RECORDS SUMMARY | 2024-12-12 15:56 | XMS_ITS | Encounter Summary ---
Author Organization [facility] Healthcare Address [address] [place] [address] Care Team Providers Care Grout Worker Name Role Phone Devaughn Macias MD Primary Care Provider Denis Platt MD Primary Care Provide r Gideon Campbell MD Primary Care Provider [phone] Encounter Details Date Type Department Care Team (Late st Contact Info) Description 06/18/2020 Telephone [facility] [address] [place] [address] Jagdish Ortega RT Social History Tobacco Use Types Packs/Day Years Used Date Smoking Tobacco: Former Cigarettes Q uit: 09/28/1978 Smokeless Tobacco: Never Alcohol Use Standard Drinks/Week Comments Yes 0 (1 standard drink = 0.6 oz pur e alcohol) Comments Unknown Sex and Gender Information Value Date Recorded Sex Assigned at Not on file Legal Sex Female 8:30 AM BUNK HOUSE WORKER Gender Identity Female 10/06/2021 4:28 PM BUNK HOUSE WORKER Sexual Orientation Choose not to disclose 2020 4:28 PM BUNK HOUSE WORKER documented as of this encounter Plan of Treatment Not on file documented as of this encounter Visit Diagnoses Not on filedocumented in this encounter Care Teams Grout Worker Relationship Specialty Start Date End Date Devaughn Macias MD PCP - General Family Medicine 01/31/20 01/13/22 Denis Platt MD [address] [place] [address] PCP - General Family Medicine 01/14/22 07/18/23 Gideon Campbell MD [address] [facility] [address] [place] [address] PCP - General Family Medicine 07/19/23 documented as of this encounter
--- OUTSIDE RECORDS SUMMARY | 2024-12-12 15:56 | XMS_ITS | Encounter Summary ---
Author Organization [facility] Healthcare Address [address] [place] [address] Care Team Providers Care Contact Acid Plant Operator Helper Name Role Phone Priscilla Barrera MD Primary Care Provider [phone] Kali Hunt MD Primary Care Provider [phone] Devaughn Macias MD Primary Care Provider Denis Platt MD Primary Care Provide r Gideon Campbell MD Primary Care Provider [phone] Encounter Details Date Type Department Care Team (Late st Contact Info) Description 12/15/2017 Orders Only [facility] Health Information Management [address] [place] [address] Scanning, Provider Social History Tobacco Use Types Packs/Day Years Used Date Smoking Tobacco: Former Smokeless Tobacco: Never Alcohol Use Standard Drinks/Week Comments Yes 0 (1 standard drink = 0.6 oz pur e alcohol) Comments Unknown Sex and Gender Information Value Date Recorded Sex Assigned at Not on file Legal Sex Female 8:30 AM PALEONTOLOGY TEACHER Gender Identity Female 10/06/2021 4:28 PM PALEONTOLOGY TEACHER Sexual Orientation Choose not to disclose 2020 4:28 PM PALEONTOLOGY TEACHER documented as of this encounter Plan of Treatment Not on file documented as of this encounter Procedures Procedure Name Priority Date/Time Associated Diagnosis Comments SCAN - RADIOLOGY/IMAGING 12/18/2017 1:20 AM PALEONTOLOGY TEACHER documented in this encounter Results * SCAN - RADIOLOGY/IMAGING (12/18/2017 1:20 AM PALEONTOLOGY TEACHER) Anatomical Region Laterality Modality Other us Provider Scanning Edited Result - Final documented in this encounter Visit Diagnoses Not on filedocumented in this encounter Care Teams Contact Acid Plant Operator Helper Relationship Specialty Start Date End Date Priscilla Barrera MD [address] [place] [address] PCP - General 01/08/17 02/07/19 Kali Hunt MD [address] [place] [address] PCP - General Family Medicine 02/08/19 01/30/20 Devaughn Macias MD [address] [place] [address] PCP - General Family Medicine 01/31/20 01/13/22 Denis Platt MD [address] [place] [address] PCP - General Family Medicine 01/14/22 07/18/23 Gideon Campbell MD [address] [place] [address] [address] [place] [address] PCP - General Family Medicine 07/19/23 documented as of this encounter
--- OUTSIDE RECORDS SUMMARY | 2024-12-12 15:56 | XMS_ITS | Clinical Summary ---
Author Organization [facility] Address [address] [place] [address] Care Team Providers Care Crewman Main Battle Tank Name Role Phone Gideon Campbell MD Primary Care Provider [phone] Allergies No known active allergies Medications ascorbic [...] 06/15/2023 Assessment & Plan (10/18/2023 2:47 PM PRESCHOOL PRINCIPAL): Worsening sx at this time Weight loss 01/27/2023 Assessment & Plan (10/18/2023 2:38 PM PRESCHOOL PRINCIPAL): Wt Readings from Last 3 Encounters: 10/18/23 [...] is recommended that he remain anticoagulated for thromboprophylaxis.[id number]=4. Left carotid bruit 10/13/2017 Ventricular ectopy 05/17/2017 [...] 04/07/2017 Assessment & Plan (10/18/2023 2:39 PM PRESCHOOL PRINCIPAL): BP Readings from Last 3 Encounters: 10/18/23 [...] EKG. Assessment & Plan (08/19/2017 10:05 AM PRESCHOOL PRINCIPAL): Post repeat ablation of her highly symptomatic [...] an office visit and 12 lead EKG. [facility] current use of anticoagulant therapy 0 03/29/2017 [...] bleeding Assessment & Plan (08/19/2017 10:05 AM PRESCHOOL PRINCIPAL): She remains anticoagulated on Coumadin. She has a PUD1ES-KPTp score of 4, therefore it is recommended that she remain anticoagulated for thromboprophylaxis. Assessment & Plan (05/17/2017 2:10 PM CDT): She remains anticoagulated with Coumadin.She has a IBS4CM5-NMPp score of 4(annualized stroke risk of 4%), [...] ca rtlage Hypertension Arthritis Iron deficiency anemia penitentiary current use of anticoagulant Family History Medical [...] on file Legal Sex Female 8:30 AM PRESCHOOL PRINCIPAL Gender Identity Female 10/06/2021 4:28 PM PRESCHOOL PRINCIPAL Sexual Orientation Choose not to disclose 2020 4:28 PM PRESCHOOL PRINCIPAL Obstetrics History Last Filed Vital Signs Vital [...] Body Mass Index 21.52 12/13/2023 10:47 AM PRESCHOOL PRINCIPAL Plan of Treatment Health Maintenance Due Date Last Done Comments DTaP/Tdap/Td Vaccine (1 - Tdap) 1946 Hepatitis B Screening 1953 Pneumococcal vaccine 65+ (1 of 1 - PCV) 1987 Zoster Vaccine (1 of 2) 1987 Covid-19 Vaccine (5 - 2023-2 5 season) 2024 03/16/2022, 08/13/2021, 12/06/2020, Additional history exists Influenza Vaccine (#1) 2024 , 06/18/2023, 08/06/2022, Additional history exists Fall Risk Assessment 07/29/2024 07/29/2023, 07/08/20 23 Well Visit 65+ 07/29/2024 07/29/2023 Depression Screening 10/18/2024 10/18/2023, 07/29/2023, 07/08/2023 Insurance MEDICARE [facility] MEDICARE SOLUTIONS MEDICARE SOLUTIONS Care Teams Crewman Main Battle Tank Relationship Specialty Start Date End Date Gideon Campbell MD [address] [facility] [address] PCP - General Family Medicine 07/19/23
--- OUTSIDE RECORDS SUMMARY | 2024-12-12 15:56 | XMS_ITS | Clinical Summary ---
Author Organization [facility] Address [address] [place] [address] Phone Care Team Providers Care Hunter Trapper Name Role Phone Gideon Campbell MD Primary Care Provider Allergies No known active allergies Medications warfarin [...] 70 04/22/2022 12:08 PM CDT Temperature 35.6 C (96 F) 04/22/2022 12:08 PM CDT Respiratory Rate 18 [...] this topic Medical Devices Implanted Type Area Heel Builder Machine Device Identifier Shelf Expiration Date Model / Serial / Lot Shell Actb 54mm Hip Sector Gription [place] - [id number] Implanted:Qty: 1 on 04/07/2022 by Herber Knott MD at [facility] IMPLANT Left: Hip [employer] 02/08/2032 [id number] / [id number] / [id number] Liner Actb Altrx [place] Neutral 54mm 36mm Hip - [id number] Implanted:Qty: 1 on 04/07/2022 by Herber Knott MD at [facility] IMPLANT Left: Hip [employer] 08/10/2026 [id number] / [id number] / [id number] Screw Bone 6.5mm 35mm [place] Dome 4 Point Cut Flute Hip Actb Canc Slftp Hex Head Blunt Tip - [id number] Implanted:Qty: 1 on 04/07/2022 by Herber Knott MD at [facility] IMPLANT Left: Hip [employer] 09/09/2031 [id number] / [id number] / [id number] Head Fem 1.5mm / Taper 36mm Hip Cementless Biolox Delta Articul/Warren - [id number] Implanted:Qty: 1 on 04/07/2022 by Herber Knott MD at [facility] IMPLANT Left: Hip [employer] 02/07/2027 [id number] / [id number] / [id number] Depuy Femoral Stem 09/23 Taper Actis Duofix Hip Prothesis Cementless, High Vollar Implanted:Qty: 1 on 04/07/2022 by Herber Knott MD at [facility] Left: Hip [employer] 12/09/2031 / / [id number] Insurance [facility] on file Advance Directives * Full Code (Latest Code Status on File) Date Activated Date Inactivated Comments 04/17/2022 9:30 AM Care Teams Hunter Trapper Relationship Specialty Start Date End Date Gideon Campbell MD [address] [facility] [address] [place] [address] PCP - General Director Water And Waste Services 02/16/24
--- OUTSIDE RECORDS SUMMARY | 2024-12-12 15:56 | XMS_ITS | Encounter Summary ---
Author Organization [facility] Address [address] [facility] [address] [place] [address] Care Team Providers Care Certified Histologic Technician Name Role Phone Prsicilla Barrera MD Primary Care Provider [phone] Priscilla Barrera MD Primary Care Provider [phone] Priscilla Barrera MD Primary Care Provider [phone] Kali Hunt MD Primary Care Provider [phone] Devaughn Macias MD Primary Care Provider Denis Platt MD Primary Care Provide r Gideon Campbell MD Primary Care Provider [phone] Encounter Details Date Type Department Care Team (Late st Contact Info) Description 06/24/2016 Orders Only [facility] Provider, MD Peggy [address] [place] [address] Social History Tobacco Use Types Packs/Day Years Used Date Smoking Tobacco: Former Cigarettes Q uit: 10/11/1977 Alcohol Use Standard Drinks/Week Comments Yes 0 (1 standard drink = 0.6 oz pur e alcohol) Comments Unknown Sex and Gender Information Value Date Recorded Sex Assigned at Not on file Legal Sex Female 8:30 AM WHEELCHAIR VAN OPERATOR FIRST RESPONDER Gender Identity Female 10/06/2021 4:28 PM WHEELCHAIR VAN OPERATOR FIRST RESPONDER Sexual Orientation Choose not to disclose 2020 4:28 PM WHEELCHAIR VAN OPERATOR FIRST RESPONDER documented as of this encounter Plan of [...] filedocumented in this encounter Care Teams Certified Histologic Technician Relationship Specialty Start Date End Date Priscilla Barrera MD [address] [place] [address] PCP - General 01/08/17 02/07/19 Priscilla Barrera MD [address] [place] [address] PCP - General 08/27/16 01/07/17 Priscilla Barrera MD [address] [place] [address] PCP - General 01/30/16 08/26/16 Kali Hunt MD [address] [place] [address] PCP - General Family Medicine 02/08/19 01/30/20 Devaughn Macias MD [address] [place] [address] PCP - General Family Medicine 01/31/20 01/13/22 Denis Platt MD [address] [place] [address] PCP - General Family Medicine 01/14/22 07/18/23 Gideon Campbell MD [address] [facility] [address] [place] [address] PCP - General Family Medicine 07/19/23 documented as of this encounter
--- OUTSIDE RECORDS SUMMARY | 2024-12-12 15:56 | XMS_ITS | Encounter Summary ---
Author Organization [facility] Healthcare Address [address] [place] [address] Care Team Providers Care Nematology Teacher Name Role Phone Devaughn Macias MD Primary Care Provider Denis Platt MD Primary Care Provide r Gideon Campbell MD Primary Care Provider [phone] Encounter Details Date Type Department Care Team (Late st Contact Info) Description 10/15/2021 Telephone [facility] [address] [place] [address] Katie Hendrix, DORINDA Social History Tobacco Use Types Packs/Day Years Used Date Smoking Tobacco: Former Cigarettes Q uit: 09/28/1978 Smokeless Tobacco: Never Alcohol Use Standard Drinks/Week Comments Yes 0 (1 standard drink = 0.6 oz pur e alcohol) Comments Unknown Sex and Gender Information Value Date Recorded Sex Assigned at Not on file Legal Sex Female 8:30 AM SPEECH COMMUNICATION INSTRUCTOR Gender Identity Female 10/06/2021 4:28 PM SPEECH COMMUNICATION INSTRUCTOR Sexual Orientation Choose not to disclose 2020 4:28 PM SPEECH COMMUNICATION INSTRUCTOR documented as of this encounter Plan of Treatment Not on file documented as of this encounter Visit Diagnoses Not on filedocumented in this encounter Care Teams Nematology Teacher Relationship Specialty Start Date End Date Devaughn Macias MD PCP - General Family Medicine 01/31/20 01/13/22 Denis Platt MD [address] [place] [address] PCP - General Family Medicine 01/14/22 07/18/23 Gideon Campbell MD 2 [facility] [address] [address] PCP - General Family Medicine 07/19/23 documented as of this encounter
--- OUTSIDE RECORDS SUMMARY | 2024-12-12 15:56 | XMS_ITS | Encounter Summary ---
Author Organization [facility] Address [address] [facility] [address] [place] [address] Care Team Providers Care Shooting Gallery Operator Name Role Phone Priscilla Barrera MD Primary Care Provider [phone] Priscilla Barrera MD Primary Care Provider [phone] Priscilla Barrera MD Primary Care Provider [phone] Kali Hunt MD Primary Care Provider [phone] Devaughn Macias MD Primary Care Provider Denis Platt MD Primary Care Provide r Gideon Campbell MD Primary Care Provider Encounter Details Date Type Department Care Team (Late st Contact Info) Description 07/22/2016 Orders Only [facility] Provider, MD Peggy [address] [place] [address] Social History Tobacco Use Types Packs/Day Years Used Date Smoking Tobacco: Former Cigarettes Q uit: 10/11/1977 Alcohol Use Standard Drinks/Week Comments Yes 0 (1 standard drink = 0.6 oz pur e alcohol) Comments Unknown Sex and Gender Information Value Date Recorded Sex Assigned at Not on file Legal Sex Female 8:30 AM FUNDRAISER Gender Identity Female 10/06/2021 4:28 PM FUNDRAISER Sexual Orientation Choose not to disclose 2020 4:28 PM FUNDRAISER documented as of this encounter Plan of [...] on filedocumented in this encounter Care Teams Shooting Gallery Operator Relationship Specialty Start Date End Date Priscilla Barrera MD [address] [place] [address] PCP - General 01/08/17 02/07/19 Priscilla Barrera MD [address] [place] [address] PCP - General 08/27/16 01/07/17 Priscilla Barrera MD [address] [place] [address] PCP - General 01/30/16 08/26/16 Kali Hunt MD [address] [place] [address] PCP - General Family Medicine 02/08/19 01/30/20 Devaughn Macias MD [address] [place] [address] PCP - General Family Medicine 01/31/20 01/13/22 Denis Platt MD [address] [place] [address] PCP - General Family Medicine 01/14/22 07/18/23 Gideon Campbell MD [address] [facility] [address] [place] [address] PCP - General Family Medicine 07/19/23 documented as of this encounter
== END 2024-12-12 13:48 | disposition home or self-care (01) ==
LOC: CHSIMG 13:48
PROVIDERS: PCP Family Medicine; Visit Provider Family Medicine
DX: M13.0 Polyarthritis, unspecified (principal); M89.9 Disorder of bone, unspecified
CPT/HCPCS: 73030; 73560

== ENCOUNTER 2025-06-12 08:14 | Day surgery (SDC) | payer MEDICARE, SELFPAY ==
--- OUTSIDE RECORDS SUMMARY | 2009-11-28 04:00 | XMS_ITS | Continuity of Care Document ---
Author Organization [facility] Address [address] [place] [address] Phone Care Team Providers Care Heading Up Machine Operator Name Role Phone Zimmer OD, Heber Unavailable [...] Diagnoses Date Provider Providers Copied on Encounter [facility], [address], [place], [place], [address], [place] tel:[phone] SEC [facility] No Information 8-201 0 Zimmer OD Heber. [address], [place], [address], [place]. tel:[phone] [facility], [address] [place] [address] [address], [place], [place], [address], tel:[phone] SEC [facility] No Information 0 [phone] 0 Zimmer OD Heber. [address] , [address], [place], [facility], [place]. tel:[phone] [facility], [address] [place] [address] [address], [place], [place], [address], [place] tel:[phone] [facility] No Information 0 4-201 0 Doisy Edward. [address] , [address], [place], [facility], [place]. tel:[phone] Referring Provider: Heber Zimmer OD A, [facility] [address], [place], [facility]. tel:[phone] Office/outpat ient Visit, [facility], [address] [place] [address] [address], [place], [place], [address], tel:[phone] [facility] No Information 201 0 Doisy Edward. [address], [place], [facility], [place]. tel:[phone] Referring Provider: Heber Zimmer OD A, [facility] [address], [place], [facility]. tel:[phone] [facility], [address] [place] [address] [address], [place], [place], [address], [place] tel:[phone] [facility] No Information 3-200 9 Zimmer OD Heber. [address], [place], [facility], [place]. tel:[phone] [facility], [address] [place] [address] [address], [place], [place], [address], [place] tel:[phone] [facility] No Information 9-200 9 Doisy Edward. [address] , [address], [place], [facility], . tel:[phone] [facility], [address] [place] [address] [address], [place], [place], [address], tel:[phone] [facility] No Information 8200 9 Sathya Nain. [address] [facility] [address], [address], [place], [facility], . tel:[phone] Referring Provider: Heber Plunkett, [address], [place], [facility]. tel:[phone] Office/outpat ient Visit, [facility], [address] [place] [address] [address], [place], [place], [address], tel:[phone] [facility] No Information 200 9 [facility] Nain. [facility] [address] [address], [address], [place], [facility], . tel:[phone] Referring Provider: Heber Plunkett, [employer] [address], [place], [facility]. tel:[phone] [facility] Eye [facility], [address] [place] [address] [address], [place], [place], [address], tel:[phone] [facility] No Information 5200 9 Zimmer OD Heber. [facility] [address] [address], [address], [place], [facility], [place]. tel:[phone] Family History Family Member Type Diagnosis Age At Onset No Information Payers Payer name Insurance type Covered democrat ID Authoriza tion(s) No Information Social History [...]
[2025-05-31 12:32] VITALS: BMI 21.6
--- NOTE | ~2025-06-12 | XR_ITS ---
EXAM: XR fluoroscopy no charge - 06/12/2025 9:40 CDT History: 89 years old Female with DIAG/PROG SANA GENICULAR NERVE BLK Fluoroscopy time: 126.1 seconds FINDINGS/ IMPRESSION: Multiple fluoroscopic images of nerve block. Reviewed, dictated and finalized at location N.
--- OUTSIDE RECORDS SUMMARY | 2025-06-12 08:22 | XMS_ITS | Clinical Summary ---
Author Organization [facility] Address [address] [place] [address] Phone Care Team Providers Care Handicapper Harness Racing Name Role Phone Gideon Campbell MD Primary Care Provider [phone] Allergies No known active allergies Medications warfarin [...] 1:56 PM CDT Height 162.6 cm (5' 4) 04/09/2022 1:56 PM CDT Body Mass Index 30.9 04/09/2022 1:56 PM CDT Plan of Treatment Health Maintenance Due Date Last Done Comments Hepatitis C Virus (HCV) Screening 1935 TdaP Immunization 1935 Pneumococcal Immunization (50+ years) (1 of 1 - PCV) 1987 Zoster Immunization (1 of 2) 1987 Respiratory Syncytial Virus (RSV) Immunization (Adult) (1 - 1-dose 75+ series) 2012 SARS-COV-2 Immunization ( season) 2024 03/16/2022, 08/13/2021, 12/06/2020, Additional history exists Influenza Immunization (#1) 2025 Hepatitis B Immunization Aged Out No longer eligible based on patient's age to complete this topic Human Papillomavirus (HPV) Immunization Aged Out No longer eligible based on patient's age to complete this topic Meningococcal Immunization (ACWY) Aged Out No longer eligible based on patient's age to complete this topic Rotavirus Immunization Aged Out No lo nger eligible based on patient's age to complete this topic Medical Devices Implanted Type Area Utility Mechanic Device Identifier Shelf Expiration Date Model / Serial / Lot Shell Actb 54mm Hip Sector Gription [place] - [id number] Implanted:Qty: 1 on 04/07/2022 by Herber Knott MD at [facility] IMPLANT Left: Hip [employer] 02/08/2032 [id number] / [id number] / [id number] Liner Actb Altrx [place] Neutral 54mm 36mm Hip - [id number] Implanted:Qty: 1 on 04/07/2022 by Herber Knott MD at [facility] IMPLANT Left: Hip [employer] 08/10/2026 [id number] / [id number] / [id number] Screw Bone 6.5mm 35mm [place] Dome 4 Point Cut Flute Hip Actb Canc Slftp Hex Head Blunt Tip - [id number] Implanted:Qty: 1 on 04/07/2022 by Herber Knott MD at [facility] IMPLANT Left: Hip [employer] 09/09/2031 [id number] / [id number] / [id number] Head Fem 1.5mm /14 Taper 36mm Hip Cementless Biolox Delta Articul/Warren - [id number] Implanted:Qty: 1 on 04/07/2022 by Herber Knott MD at [facility] IMPLANT Left: Hip [employer] 02/07/2027 [id number] / [id number] / [id number] Depuy Femoral Stem /14 Taper Actis Duofix Hip Prothesis Cementless, High Vollar Implanted:Qty: 1 on 04/07/2022 by Herber Knott MD at [facility] Left: Hip [employer] 12/09/2031 [id number] / [id number] / [id number] Insurance [facility] on file Advance Directives * Full Code (Latest Code Status on File) Date Activated Date Inactivated Comments 04/17/2022 9:30 AM Care Teams Handicapper Harness Racing Relationship Specialty Start Date End Date Gideon Campbell MD [address] [place] [address] [place] [address] PCP - General Glass Loading Equipment Tender 02/16/24
--- OUTSIDE RECORDS SUMMARY | 2025-06-12 08:22 | XMS_ITS | Encounter Summary ---
Author Organization [facility] Healthcare Address [address] [place] [address] Care Team Providers Care Bundler Seasonal Greenery Name Role Phone Priscilla Barrera MD Primary Care Provider [phone] Kali Hunt MD Primary Care Provider [phone] Devaughn Macias MD Primary Care Provider Denis Platt MD Primary Care Provide r Gideon Campbell MD Primary Care Provider [phone] Encounter Details Date Type Department Care Team (Late st Contact Info) Description 12/15/2017 Orders Only [facility] [place] Information Management [address] [place] [address] Scanning, Provider Social History Tobacco Use Types Packs/Day Years Used Date Smoking Tobacco: Former Smokeless Tobacco: Never Alcohol Use Standard Drinks/Week Comments Yes 0 (1 standard drink = 0.6 oz pur e alcohol) Comments Unknown Sex and Gender Information Value Date Recorded Sex Assigned at Not on file Legal Sex Female 8:30 AM POWER SEWING MACHINE OPERATOR Gender Identity Female 10/06/2021 4:28 PM POWER SEWING MACHINE OPERATOR Sexual Orientation Choose not to disclose 2020 4:28 PM POWER SEWING MACHINE OPERATOR documented as of this encounter Plan of Treatment Not on file documented as of this encounter Procedures Procedure Name Priority Date/Time Associated Diagnosis Comments SCAN - RADIOLOGY/IMAGING 12/18/2017 1:20 AM POWER SEWING MACHINE OPERATOR documented in this encounter Results * SCAN - RADIOLOGY/IMAGING (12/18/2017 1:20 AM POWER SEWING MACHINE OPERATOR) Anatomical Region Laterality Modality Other us Provider Scanning Edited Result - Final documented in this encounter Visit Diagnoses Not on filedocumented in this encounter Care Teams Bundler Seasonal Greenery Relationship Specialty Start Date End Date Priscilla Barrera MD [address] [place] [address] PCP - General 01/08/17 02/07/19 Kali Hunt MD [address] [place] [address] PCP - General Family Medicine 02/08/19 01/30/20 Devaughn Macias MD [address] [place] [address] PCP - General Family Medicine 01/31/20 01/13/22 Denis Platt MD [address] [place] [address] PCP - General Family Medicine 01/14/22 07/18/23 Gideon Campbell MD [address] [place] [address] [address] [place] [address] PCP - General Family Medicine 07/19/23 documented as of this encounter
--- OUTSIDE RECORDS SUMMARY | 2025-06-12 08:22 | XMS_ITS | Encounter Summary ---
Author Organization [facility] Address [address] [facility] [address] [place] [address] Care Team Providers Care Plater Printed Circuit Board Panels Name Role Phone Priscilla Barrera MD Primary Care Provider [phone] Priscilla Barrera MD Primary Care Provider [phone] Priscilla Barrera MD Primary Care Provider [phone] Kali Hunt MD Primary Care Provider [phone] Devaughn Macias MD Primary Care Provider Denis Platt MD Primary Care Provide r Gideon Campbell MD Primary Care Provider [phone] Encounter Details Date Type Department Care Team (Late st Contact Info) Description 06/24/2016 Orders Only [facility] Provider, MD Peggy [address] [place] [address] Social History Tobacco Use Types Packs/Day Years Used Date Smoking Tobacco: Former Cigarettes Q uit: 10/11/1977 Alcohol Use Standard Drinks/Week Comments Yes 0 (1 standard drink = 0.6 oz pur e alcohol) Comments Unknown Sex and Gender Information Value Date Recorded Sex Assigned at Not on file Legal Sex Female 8:30 AM INVESTOR RELATIONS COORDINATOR Gender Identity Female 10/06/2021 4:28 PM INVESTOR RELATIONS COORDINATOR Sexual Orientation Choose not to disclose 2020 4:28 PM INVESTOR RELATIONS COORDINATOR documented as of this encounter Plan [...] on filedocumented in this encounter Care Teams Plater Printed Circuit Board Panels Relationship Specialty Start Date End Date Priscilla Barrera MD [address] [place] [address] PCP - General 01/08/17 02/07/19 Priscilla Barrera MD [address] [place] [address] PCP - General 08/27/16 01/07/17 Priscilla Barrera MD [address] [place] [address] PCP - General 01/30/16 08/26/16 Kali Hunt MD [address] [place] [address] PCP - General Family Medicine 02/08/19 01/30/20 Devaughn Macias MD [address] [place] [address] PCP - General Family Medicine 01/31/20 01/13/22 Denis Platt MD [address] [place] [address] PCP - General Family Medicine 01/14/22 07/18/23 Gideon Campbell MD 2 [facility] [address] [place] [address] PCP - General Family Medicine 07/19/23 documented as of this encounter
--- OUTSIDE RECORDS SUMMARY | 2025-06-12 08:22 | XMS_ITS | Encounter Summary ---
Author Organization [facility] Healthcare Address [address] [place] [address] Care Team Providers Care Conference Assistant Name Role Phone Devaughn Macias MD Primary Care Provider Denis Platt MD Primary Care Provide r Gideon Campbell MD Primary Care Provider [phone] Encounter Details Date Type Department Care Team (Late st Contact Info) Description 10/15/2021 Telephone [facility] Imaging Center [address] [place] [address] Katie Hendrix, DORINDA Social History Tobacco Use Types Packs/Day Years Used Date Smoking Tobacco: Former Cigarettes Q uit: 09/28/1978 Smokeless Tobacco: Never Alcohol Use Standard Drinks/Week Comments Yes 0 (1 standard drink = 0.6 oz pur e alcohol) Comments Unknown Sex and Gender Information Value Date Recorded Sex Assigned at Not on file Legal Sex Female 8:30 AM ELECTRICAL APPLIANCE REPAIRER Gender Identity Female 10/06/2021 4:28 PM ELECTRICAL APPLIANCE REPAIRER Sexual Orientation Choose not to disclose 2020 4:28 PM ELECTRICAL APPLIANCE REPAIRER documented as of this encounter Plan of Treatment Not on file documented as of this encounter Visit Diagnoses Not on filedocumented in this encounter Care Teams Conference Assistant Relationship Specialty Start Date End Date Devaughn Macias MD PCP - General Family Medicine 01/31/20 01/13/22 Denis Platt MD [address] [place] [address] PCP - General Family Medicine 01/14/22 07/18/23 Gideon Campbell MD 2 [facility] [address] [address] PCP - General Family Medicine 07/19/23 documented as of this encounter
--- OUTSIDE RECORDS SUMMARY | 2025-06-12 08:22 | XMS_ITS | Encounter Summary ---
Author Organization [facility] Address [address] [facility] [address] [place] [address] Care Team Providers Care Physician Relations Representative Name Role Phone Priscilla Barrera MD Primary Care Provider [phone] Priscilla Barrera MD Primary Care Provider [phone] Priscilla Barrera MD Primary Care Provider [phone] Kali Hunt MD Primary Care Provider [phone] Devaughn Macias MD Primary Care Provider Denis Platt MD Primary Care Provide r Gideon Campbell MD Primary Care Provider [phone] Encounter Details Date Type Department Care Team (Late st Contact Info) Description 07/23/2016 Orders Only [facility] Provider, MD Peggy [address] [place] [address] Social History Tobacco Use Types Packs/Day Years Used Date Smoking Tobacco: Former Cigarettes Q uit: 10/11/1977 Alcohol Use Standard Drinks/Week Comments Yes 0 (1 standard drink = 0.6 oz pur e alcohol) Comments Unknown Sex and Gender Information Value Date Recorded Sex Assigned at Not on file Legal Sex Female 8:30 AM GLOBAL SAFETY OFFICER Gender Identity Female 10/06/2021 4:28 PM GLOBAL SAFETY OFFICER Sexual Orientation Choose not to disclose 2020 4:28 PM GLOBAL SAFETY OFFICER documented as of this encounter Plan [...] on filedocumented in this encounter Care Teams Physician Relations Representative Relationship Specialty Start Date End Date Priscilla Barrera MD [address] [place] [address] PCP - General 01/08/17 02/07/19 Priscilla Barrera MD [address] [place] [address] PCP - General 08/27/16 01/07/17 Priscilla Barrera MD [address] [place] [address] PCP - General 01/30/16 08/26/16 Kali Hunt MD [address] [place] [address] PCP - General Family Medicine 02/08/19 01/30/20 Devaughn Macias MD [address] [place] [address] PCP - General Family Medicine 01/31/20 01/13/22 Denis Platt MD [address] [place] [address] PCP - General Family Medicine 01/14/22 07/18/23 Gideon Campbell MD [address] [facility] [address] [place] [address] PCP - General Family Medicine 07/19/23 documented as of this encounter
--- OUTSIDE RECORDS SUMMARY | 2025-06-12 08:22 | XMS_ITS | Clinical Summary ---
Author Organization [facility] Address [address] [place] [address] Care Team Providers Care Safety Net Maker Name Role Phone Gideon Campbell MD Primary Care Provider [phone] Allergies No known active allergies Medications ascorbic [...] Annual Wellness Visit has been performed today. uQin Thomasonner is up to date on screening [...] 06/15/2023 Assessment & Plan (10/18/2023 2:47 PM PARTS WASHER): Worsening sx at this time Weight loss 01/27/2023 Assessment & Plan (10/18/2023 2:38 PM PARTS WASHER): Wt Readings from Last 3 Encounters: 10/18/23 [...] is recommended that he remain anticoagulated for thromboprophylaxis.[id number]=5. Left carotid bruit 10/13/2017 Ventricular ectopy 05/17/2017 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 goal <100 04/07/2017 Assessment & Plan (07/08/2023 12:52 PM CDT): No results found for: CHOL, POCCHOL Lab Results Component Value Date POCHDL 46 04/07/2017 Lab Results Component Value Date POCLDL 105 04/07/2017 Lab Results Component Value Date POCTRIG 176 04/07/2017 Lab Results Component Value Date POCCHDLR 4.0 04/07/2017 Lab Results Component Value Date POCNONHDL 140 04/07/2017 Lab Results Component Value Date POCCHLPL 186 04/07/2017 PAD (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) 04/07/2017 Essential hypertension 04/07/2017 Assessment & Plan (10/18/2023 2:39 PM PARTS WASHER): BP Readings from Last 3 Encounters: 10/18/23 160/78 10/18/23 168/68 07/29/23 130/60 Vitals BP 160/78 (BP Location: Left arm, Patient Position: Sitting) Pulse 63 Resp 16 Ht 161.3 cm (5' 3.5) Wt 59.1 kg (130 lb 4.8 oz) [...] 69 Resp 16 Ht 161.3 cm (5' 3.5) Wt 57.7 kg (127 lb 4.8 oz) [...] EKG. Assessment & Plan (08/19/2017 10:05 AM PARTS WASHER): Post repeat ablation of her highly symptomatic [...] an office visit and 12 lead EKG. 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 She has a NZX4OU-[id number] score of 4, therefore it is recommended that she remain anticoagulated for thromboprophylaxis. Assessment & Plan (05/17/2017 2:10 PM CDT): She remains anticoagulated with Coumadin.She has a [id number]-OAQx score of 4(annualized stroke risk of 4%), [...] ca rtlage Hypertension Arthritis Iron deficiency anemia MCC current use of anticoagulant Family History Medical [...] file Legal Sex Female 8:30 AM PARTS WASHER Gender Identity Female 10/06/2021 4:28 PM PARTS WASHER Sexual Orientation Choose not to disclose 2020 4:28 PM PARTS WASHER Obstetrics History Last Filed Vital Signs Vital [...] 9:55 AM CDT Height 161.3 cm (5' 3.5) 12/13/2023 10:47 AM CS T Body Mass Index 21.52 12/13/2023 10:47 AM PARTS WASHER Plan of Treatment Health Maintenance Due Date Last Done Comments Osteoporosis Screening-Bone Density Scan 1935 DTaP/Tdap/Td Vaccine (1 - Tdap) 1948 Hepatitis B Screening 1953 Pneumococcal vaccine 65+ (1 of 1 - PCV) 1987 Zoster Vaccine (1 of 2) 1987 Fall Risk Assessment 07/29/2024 07/29/2023, 07/08/20 23 Well Visit 65+ 07/29/2024 07/29/2023 Depression Screening 10/18/2024 10/18/2023, 07/29/2023, 07/08/2023 Covid-19 Vaccine (5 - 2024-2 6 season) 2025 03/16/2022, 08/13/2021, 12/06/2020, Additional history exists Influenza Vaccine (#1) 2025 , 06/18/2023, 08/06/2022, Additional history exists Insurance MEDICARE [facility] MEDICARE ADVANTAGE [facility] MEDICARE ADVANTAGE Care Teams Safety Net Maker Relationship Specialty Start Date End Date Gideon Campbell MD [address] [place] [address] [address] [place] [address] PCP - General Family Medicine 07/19/23
--- OUTSIDE RECORDS SUMMARY | 2025-06-12 08:22 | XMS_ITS | Encounter Summary ---
Author Organization [facility] Address [address] [facility] [address] [place] [address] Care Team Providers Care Chimney Supervisor Brick Name Role Phone Priscilla Barrera MD Primary Care Provider [phone] Priscilla Barrera MD Primary Care Provider [phone] Kali Hunt MD Primary Care Provider [phone] Devaughn Macias MD Primary Care Provider Denis Platt MD Primary Care Provide r Gideon Campbell MD Primary Care Provider [phone] Encounter Details Date Type Department Care Team (Late st Contact Info) Description 10/29/2016 Orders Only [facility] Provider, MD Peggy [address] [place] [address] Social History Tobacco Use Types Packs/Day Years Used Date Smoking Tobacco: Former Cigarettes Q uit: 10/11/1977 Alcohol Use Standard Drinks/Week Comments Yes 0 (1 standard drink = 0.6 oz pur e alcohol) Comments Unknown Sex and Gender Information Value Date Recorded Sex Assigned at Not on file Legal Sex Female 8:30 AM CLIP ON SUNGLASSES INSPECTOR Gender Identity Female 10/06/2021 4:28 PM CLIP ON SUNGLASSES INSPECTOR Sexual Orientation Choose not to disclose 2020 4:28 PM CLIP ON SUNGLASSES INSPECTOR documented as of this encounter Plan [...] on filedocumented in this encounter Care Teams Chimney Supervisor Brick Relationship Specialty Start Date End Date Priscilla Barrera MD [address] [place] [address] PCP - General 01/08/17 02/07/19 Priscilla Barrera MD [address] [place] [address] PCP - General 08/27/16 01/07/17 Kali Hunt MD [address] [place] [address] PCP - General Family Medicine 02/08/19 01/30/20 Devaughn Macias MD [address] [place] [address] PCP - General Family Medicine 01/31/20 01/13/22 Denis Platt MD [address] [place] [address] PCP - General Family Medicine 01/14/22 07/18/23 Gideon Campbell MD [address] [place] [address] [place] [address] PCP - General Family Medicine 07/19/23 documented as of this encounter
--- OUTSIDE RECORDS SUMMARY | 2025-06-12 08:22 | XMS_ITS | Encounter Summary ---
Author Organization [facility] Address [address] [place] [address] Phone Care Team Providers Care Sound Editor Name Role Phone Provider, Not On File Primary Care Provider Unav ailable Denis Platt MD Primary Care Provider Gideon Campbell MD Primary Care Provider Encounter Details Date Type Department Care Team (Late st Contact Info) Description 03/24/2022 Transcribe Orders [facility] Preop/Pacu II [address] [place] [phone] Herber Knott MD [address] [place] [address], [address] [place] [address] Pre-op testing (Primary Dx) Social [...] ABO TYPING O 04/04/2022 11:22 AM CDT [facility] RH Positive 04/04/2022 11:22 AM CDT [facility] ABSC Negative 04/04/2022 11:22 AM CDT [facility] Blood Venipuncture / Unknown 04/04/2022 9:50 AM CDT 04/04/2022 10:04 AM CDT Herber Knott MD BLOOD BANK ORDERABLES Ed ited Result - Final [facility] #[address] [place] [address] * SARS-COV-2 BY MOLECULAR (04/04/2022 9:46 AM CDT) Pathologist [facility] SARSCOV2 NOT DETECTED (Referenc e Range for this test is Not Detected) [facility] [place] ID NOW 04/04/2022 10:33 AM CDT [facility] Comment:This test was perfor med by a MOLECULAR, NON-PCR method Other NASAL STRUCTURE / Unknown Non-Phlebotomy Collection / Unknown 04/04/2022 9:46 AM CDT 04/04/2022 10:04 AM CDT Narrative [facility] - 04/04/2022 10:33 AM [...] information for Clinicians can be found at: https://www.fda.gov/media/021647/download Additional information for Patients can be found at: https://www.fda.gov/media/496894/download Herber Knott MD MICROBIOLOGY - GENERAL O RDERABLES Final Result [facility] [address] [place] [address] documented in this encounter Visit Diagnoses Diagnosis Pre-op testing- Primary Preoperative examination, unspecified documented in this encounter Care Teams Sound Editor Relationship Specialty Start Date End Date Provider, Not On File [place] PCP - General 03/19/22 04/07/22 Denis Platt MD [address] [place] [address] PCP - General Pediatrics 04/08/22 02/15/24 Gideon Campbell MD [address] [place] [address] [place] [address] PCP - General Oven Tender 02/16/24 documented as of this encounter
--- OUTSIDE RECORDS SUMMARY | 2025-06-12 08:22 | XMS_ITS | Encounter Summary ---
Author Organization [facility] Healthcare Address [address] [place] [address] Care Team Providers Care Senior Ios Developer Name Role Phone Devaughn Macias MD Primary Care Provider Denis Platt MD Primary Care Provide r Gideon Campbell MD Primary Care Provider [phone] Encounter Details Date Type Department Care Team (Late st Contact Info) Description 10/17/2021 Telephone [facility] Imaging Center [address] [place] [address] Katie Hendrix, DORINDA Social History Tobacco Use Types Packs/Day Years Used Date Smoking Tobacco: Former Cigarettes Q uit: 09/28/1978 Smokeless Tobacco: Never Alcohol Use Standard Drinks/Week Comments Yes 0 (1 standard drink = 0.6 oz pur e alcohol) Comments Unknown Sex and Gender Information Value Date Recorded Sex Assigned at Not on file Legal Sex Female 8:30 AM ASSISTANT PROFESSOR OF GERMAN Gender Identity Female 10/06/2021 4:28 PM ASSISTANT PROFESSOR OF GERMAN Sexual Orientation Choose not to disclose 2020 4:28 PM ASSISTANT PROFESSOR OF GERMAN documented as of this encounter Plan of Treatment Not on file documented as of this encounter Visit Diagnoses Not on filedocumented in this encounter Care Teams Senior Ios Developer Relationship Specialty Start Date End Date Devaughn Macias MD PCP - General Family Medicine 01/31/20 01/13/22 Denis Platt MD [address] [place] [address] PCP - General Family Medicine 01/14/22 07/18/23 Gideon Campbell MD 2 [facility] [address] [address] PCP - General Family Medicine 07/19/23 documented as of this encounter
--- OUTSIDE RECORDS SUMMARY | 2025-06-12 08:22 | XMS_ITS | Encounter Summary ---
Author Organization [facility] Healthcare Address [address] [place] [address] Care Team Providers Care Roof Fitter Name Role Phone Devaughn Macias MD Primary Care Provider Denis Platt MD Primary Care Provide r Gideon Campbell MD Primary Care Provider [phone] Encounter Details Date Type Department Care Team (Late st Contact Info) Description 06/18/2020 Telephone [facility] Imaging Center [address] [place] [address] Jagdish Ortega RT Social History Tobacco Use Types Packs/Day Years Used Date Smoking Tobacco: Former Cigarettes Q uit: 09/28/1978 Smokeless Tobacco: Never Alcohol Use Standard Drinks/Week Comments Yes 0 (1 standard drink = 0.6 oz pur e alcohol) Comments Unknown Sex and Gender Information Value Date Recorded Sex Assigned at Not on file Legal Sex Female 8:30 AM OVERHEAD CRANE OPERATOR Gender Identity Female 10/06/2021 4:28 PM OVERHEAD CRANE OPERATOR Sexual Orientation Choose not to disclose 2020 4:28 PM OVERHEAD CRANE OPERATOR documented as of this encounter Plan of Treatment Not on file documented as of this encounter Visit Diagnoses Not on filedocumented in this encounter Care Teams Roof Fitter Relationship Specialty Start Date End Date Devaughn Macias MD PCP - General Family Medicine 01/31/20 01/13/22 Denis Platt MD [address] [place] [address] PCP - General Family Medicine 01/14/22 07/18/23 Gideon Campbell MD [address] [facility] [address] [place] [address] PCP - General Family Medicine 07/19/23 documented as of this encounter
--- OUTSIDE RECORDS SUMMARY | 2025-06-12 08:22 | XMS_ITS | Encounter Summary ---
Author Organization [facility] Medical [facility] Address [address] [facility] [address] [place] [address] Care Team Providers Care Shipping Lead Name Role Phone Priscilla Barrera MD Primary Care Provider [phone] Priscilla Barrera MD Primary Care Provider [phone] Kali Hunt MD Primary Care Provider [phone] Devaughn Macias MD Primary Care Provider Denis Platt MD Primary Care Provide r Gideon Campbell MD Primary Care Provider [phone] Encounter Details Date Type Department Care Team (Late st Contact Info) Description 12/24/2016 Orders Only [facility] Provider, MD Peggy [address] [place] [address] Social History Tobacco Use Types Packs/Day Years Used Date Smoking Tobacco: Former Cigarettes Q uit: 10/11/1977 Alcohol Use Standard Drinks/Week Comments Yes 0 (1 standard drink = 0.6 oz pur e alcohol) Comments Unknown Sex and Gender Information Value Date Recorded Sex Assigned at Not on file Legal Sex Female 8:30 AM ROOM MANAGER Gender Identity Female 10/06/2021 4:28 PM ROOM MANAGER Sexual Orientation Choose not to disclose 2020 4:28 PM ROOM MANAGER documented as of this encounter Plan [...] on filedocumented in this encounter Care Teams Shipping Lead Relationship Specialty Start Date End Date Priscilla Barrera MD [address] [place] [address] PCP - General 01/08/17 02/07/19 Priscilla Barrera MD [address] [place] [address] PCP - General 08/27/16 01/07/17 Kali Hunt MD [address] [place] [address] PCP - General Family Medicine 02/08/19 01/30/20 Devaughn Macias MD [address] [place] [address] PCP - General Family Medicine 01/31/20 01/13/22 Denis Platt MD [address] [place] [address] PCP - General Family Medicine 01/14/22 07/18/23 Gideon Campbell MD [address] [place] [address] [place] [address] PCP - General Family Medicine 07/19/23 documented as of this encounter
--- OUTSIDE RECORDS SUMMARY | 2025-06-12 08:22 | XMS_ITS | Encounter Summary ---
Author Organization [facility] Medical [facility] Address [address] [facility] [address] [place] [address] Care Team Providers Care Hand Glass Cutter Name Role Phone Priscilla Barrera MD Primary Care Provider Priscilla Barrera MD Primary Care Provider [phone] Priscilla Barrera MD Primary Care Provider [phone] Kali Hunt MD Primary Care Provider [phone] Devaughn Macias MD Primary Care Provider Denis Platt MD Primary Care Provide r Gideon Campbell MD Primary Care Provider [phone] Encounter Details Date Type Department Care Team (Late st Contact Info) Description 07/22/2016 Orders Only [facility] Provider, MD Peggy [address] [place] [address] Social History Tobacco Use Types Packs/Day Years Used Date Smoking Tobacco: Former Cigarettes Q uit: 10/11/1977 Alcohol Use Standard Drinks/Week Comments Yes 0 (1 standard drink = 0.6 oz pur e alcohol) Comments Unknown Sex and Gender Information Value Date Recorded Sex Assigned at Not on file Legal Sex Female 8:30 AM DIRECTOR TELEVISION NEWS Gender Identity Female 10/06/2021 4:28 PM DIRECTOR TELEVISION NEWS Sexual Orientation Choose not to disclose 2020 4:28 PM DIRECTOR TELEVISION NEWS documented as of this encounter Plan of [...] filedocumented in this encounter Care Teams Hand Glass Cutter Relationship Specialty Start Date End Date Priscilla Barrera MD [address] [place] [address] PCP - General 01/08/17 02/07/19 Priscilla Barrera MD [address] [place] [address] PCP - General 08/27/16 01/07/17 Priscilla Barrera MD [address] [place] [address] PCP - General 01/30/16 08/26/16 Kali Hunt MD [address] [place] [address] PCP - General Family Medicine 02/08/19 01/30/20 Devaughn Macias MD [address] [place] [address] PCP - General Family Medicine 01/31/20 01/13/22 Denis Platt MD [address] [place] [address] PCP - General Family Medicine 01/14/22 07/18/23 Gideon Campbell MD 2 [facility] [address] [place] [address] PCP - General Family Medicine 07/19/23 documented as of this encounter
[2025-06-12 08:41] VITALS: BP 152/66; PULSE 62; RESP 15; TEMP 37.4; O2SAT 96
--- NOTE | 2025-06-12 09:26 | P.HP_ITS ---
History of Present Illness History of Present Illness Consent: Risks, benefits, and alternatives have been discussed and questions answered. Patient agrees to proceed with procedure. Chief complaint: Bilateral Primary Osteoarthritis of Knee, arthralg Narrative: Quin Talley is a 89 year old female with chronic, recalcitrant and disabling bilateral knee pain secondary to degenerative osteoarthritis with failure to respond to aggressive conservative measures including PT, oral and topical analgesics, opioid and nonopioid analgesics, rest, time and activity/behavioral modification over the past 1-2 years who presents for diagnostic/prognostic blocks (# 1) of the genicular/vastus intermedius nerves supplying the bilateral knee joints under fluoroscopic guidance and with contrast. Review of Systems Review of Systems: All systems reviewed & are unremarkable except as noted in HPI and below PMFSH Past Medical History Medical History Anemia JUSTYN (acute kidney injury) COVID-19 Pneumonia Atrial fibrillation, chronic Hypertension Hyperlipidemia Surgical History Surgical History History of cardiac ablation for atrial fibrillation Hx of tonsillectomy Family History Family History Father Family history of malignant neoplasm Social History Social History Smoking packs per day: 1 Smoking cigarettes per day: 20.0 Years smoked: 20 Smoking pack-years: 20.00 Smoking status: Never smoker Tobacco type: cigarettes Second hand tobacco smoke exposure: No Smoking end date: 10/15/24 Alcohol intake: never Drinks per week: 7 Substance use: never Substance use type: does not use Do You Feel Safe in your Home?: Yes Lack of Transportation: No Lack of Food: Never True Current Housing: I Have Housing Concerned About Future Housing: No Difficulty Paying Gas/Electric Bills: No Difficulty Paying for Meds: No Currently Unemployed: No Education: High School Diploma/GED Difficulty w/ Childcare or Family Care: No Living arrangements: alone Gender identity (if verbalized by the patient): Female Spiritual care concerns: No Meds Home Medications and Allergies Home Medications ?Medication ?Instructions ?Recorded ?Confirmed ?Type multivitamin 1 tablet PO DAILY 12/07/24 0 06/12/25 History amlodipine 5 mg tablet See Rx Instructions .Route 0 03/20/25 06/12/25 Rx .COMPLEX #90 tabs losartan 100 mg tablet See Rx Instructions .Route 0 03/20/25 06/12/25 Rx .COMPLEX #90 tabs torsemide 10 mg tablet 10 mg PO QAM swelling #30 ta bs 03/20/25 06/12/25 Rx oxycodone 10 mg tablet 10 mg PO BID PRN pain #60 ta bs 05/18/25 06/12/25 Rx docusate sodium 100 mg capsule 100 mg PO DAILY 5 06/12/25 History (Colace) ferrous sulfate 325 mg (65 mg 325 mg PO DAILY 05/31/25 06/12/25 History iron) tablet (Iron (ferrous sulfate)) Allergies Allergy/AdvReac Type Severity Reaction Status Date / Time No Known Allergies Allergy Unknown Verified 06/12/25 08:40 Vital Signs Vital Signs - 24 hr 06/12/25 08:41 Temperature 99.3 F Pulse Rate 62 Respiratory Rate 15 Blood Pressure 152/66 H Pulse Oximetry 96 Oxygen Delivery Room Air Exam Narrative: The patient's physical exam is essentially unchanged from prior examination on 05/09/2025. Specifically, patient demonstrates normal lung capacity, tidal volume and respiratory rate without wheezes, crackles, rales or rubs. Heart rate and rhythm are regular without murmurs, gallops or rubs. No JVD. Pulses 2+ globally without increasing peripheral edema. AAOx3 with no evidence of confusion, intoxication or altered mental state, NC/AT without acute distress or altered consciousness. Speech, cognition, mood, insight and judgment at baseline and within normal limits. Assessment and Plan Assessment and plan (1) Polyarthritis: Code(s): M13.0 - Polyarthritis, unspecified Status: Acute Assessment and Plan: Proceed as planned with diagnostic/prognostic blocks (# 1) of the genicular/vastus intermedius nerves supplying the bilateral knee joints under fluoroscopic guidance and with contrast. (2) Arthralgia: Qualifiers: Joint pain location: unspecified Qualified Code(s): M25.50 - Pain in unspecified joint Code(s): M25.50 - Pain in unspecified joint Status: Acute
--- NOTE | 2025-06-12 09:29 | WPDHPUPDATE1 ---
History and Physical Update Update Date/Time: 06/12/25 09:29 History and Physical has been reviewed, including an updated exam of the patient. There are NO changes in the patient's condition. Risks, benefits, and alternatives have been discussed and questions answered. Patient agrees to proceed with procedure.
--- NOTE | 2025-06-12 09:30 | P.OP_ITS ---
Procedure Note - Detailed Date of Procedure 06/12/25 Pre-op Diagnosis Bilateral Primary Osteoarthritis of Knee, arthralg Post-op Diagnosis Same Procedure Performed Diagnostic Blockade of the bilateral Superior Medial, Inferior Medial and Superior Lateral Genicular Nerves, Vastus Intermedius nerve under Fluoroscopic Guidance (8 nerves blocked). Surgeon Karan Early MD Anesthesia Local Description of Procedure INFORMED CONSENT: Risks, benefits and alternatives to the procedure were discussed in detail with the patient who expressed explicit understanding and consent to proceed. Patient was informed verbally and in written form regarding the risks associated with the procedure including the low risk of serious infection, bleeding/bruising, allergic reaction, nerve injury, paralysis, procedural site pain or discomfort, worsening pain and/or mobility, failure to treat and disfigurement. The patient expressed explicit understanding and consent to proceed. All materials required for the procedure were available prior to procedure start. Site and side was marked prior to procedure and con firmed in the presence of the patient. PROCEDURE IN DETAIL: The patient was brought to the procedural suite and placed in the supine position. Patient was made comfortable with use of pillows under the head/shoulder, knees and ankles. Skin overlying anterior, medial and lateral surface of the knee joint on the right side was prepared broadly with ChloraPrep applicator and draped in a sterile manner. Aseptic technique was used throughout. The intersection between the femoral shaft and the medial femoral condyle, lateral femoral condyle and between the medial tibial plateau and tibial shaft were visualized in the AP view on the right knee, as well as the line bisecting the femur and perpendicular to the short axis of the joint space 6cm proximal to the superior border of the patella with the knee partially flexed at 120 degrees. Local anesthesia was established by infiltration with approximately 3 mL of 2% lidocaine via a 1-1/2 inch 27-gauge needle at the skin and soft tissues overlying each site. A 25-gauge 3.5 inch quincke spinal needle was advanced until the needle tip contacted periosteum at each location, and was then walked off medially to approximate the position of the Superior and Inferior Medial Genicular nerves or laterally to approximate the position of the Superior Lateral Genicular nerve, and just superficial to femoral periosteum 6cm proximal to the patella to block the Vastus intermedius nerve. Needle depth was verified in the lateral view revealing appropriate needle positioning at each location. 0.5ml of Omnipaque 300 contrast medium was injected at each site confirming appropriate perineural spread of contrast without evidence of intravascular or intra-articular spread. After repeat negative aspiration, 0.5- 1.0ml of 0.5% PF Bupivacaine was injected at each site to block the respective nerves. Needle was removed completely intact without difficulty. The same exact procedure was then repeated on the contralateral side, left knee, modified only for contralateral procedure location with similar results and no evidence of complication. Patient tolerated this well. Images were saved and documented in the patient chart. Patient's skin was cleansed and sterile bandage applied. The patient tolerated the procedure well. The patient was transported to the recovery area in stable condition where they were observed for an appropriate amount of time prior to discharge, without evidence of complication. Patient was instructed on the appropriate completion of a pain diary over the next 12-24 hours. The patient was instructed to avoid excessive activity for the next 48 hours, including climbing and frequent use of stairs. Showers only for 48 hours. They were instructed not to drive or operate heavy machinery for 24 hours. They are to monitor for severe headaches, fevers, chills, night sweats, erythema/swelling at the site or any other signs of infection, bleeding/bruising, bowel or bladder changes as well as new pain, weakness or numbness in the upper or lower extremity. Should they notice these changes, they are instructed to call our office immediately or report directly to the nearest Emergency Department if no answer or if after posted office hours. CONTRAST WASTED: 26 mL Omnipaque 300. Complications No immediate complications Condition Stable [facility] Billing Surgery - Charge Forward: Surgery Billing
[2025-06-12] MEDS: LIDOCAINE 1% PF INJ 5 ML VIAL INFILTRATE (09:48)
[2025-06-12 09:49] VITALS: BP 195/84; PULSE 76; RESP 12; O2SAT 97
[2025-06-12] MEDS: BUPivacaine HCL 0.5% 10 ML AMP INFILTRATE (09:52)
[2025-06-12 09:57] VITALS: BP 198/83; PULSE 48; RESP 16; O2SAT 99
[2025-06-12 10:02] VITALS: BP 174/74; PULSE 40; RESP 16; O2SAT 99
[2025-06-12 10:12] VITALS: BP 178/76; PULSE 58; RESP 14; O2SAT 100
== END 2025-06-12 10:40 | disposition home or self-care (01) ==
PROVIDERS: PCP Family Medicine; Visit Provider Anesthesiology Pain Medicine
PROC: (CPT 64454; principal; 2025-06-12 09:30)
DX: M17.0 Bilateral primary osteoarthritis of knee (principal); M25.562 Pain in left knee; M25.561 Pain in right knee
CPT/HCPCS: 64454; 99199

== ENCOUNTER 2025-07-09 07:06 | Day surgery (SDC) | payer MEDICARE, SELFPAY ==
--- OUTSIDE RECORDS SUMMARY | 2009-11-28 04:00 | XMS_ITS | Continuity of Care Document ---
Author Organization [facility] Address [address] [place] [address] Phone Care Team Providers Care Charter Representative Name Role Phone Zimmer OD, Heber Unavailable [...] Diagnoses Date Provider Providers Copied on Encounter [facility], [address], [place], [place], [address], [place] tel:[phone] SEC [facility] No Information 8-201 0 Zimmer OD Heber. [address] , [address], [place], [address], [place]. tel:[phone] [facility], [address] [place] [address] [address], [place], [place], [address], tel:[phone] SEC [facility] No Information 0 5-201 0 Zimmer OD Heber. [address] , [address], [place], [facility], [place]. tel:[phone] [facility], [address] [place] [address] [address], [place], [place], [address], [place] tel:[phone] [facility] No Information 0 4-201 0 Doisy Edward. [address] , [address], [place], [facility], [place]. tel:[phone] Referring Provider: Heber Zimmer OD A, [facility] [address], [place], [facility]. tel:[phone] Office/outpat ient Visit, [facility], [address] [place] [address] [address], [place], [place], [address], tel:[phone] [facility] No Information 201 0 Doisy Edward. [address], [place], [facility], [place]. tel:[phone] Referring Provider: Heber Zimmer OD A, [facility] [address], [place], [facility]. tel:[phone] [facility], [address] [place] [address] [address], [place], [place], [address], [place] tel:[phone] [facility] No Information 3-200 9 Zimmer OD Heber. [address] , [address], [place], [facility], [place]. tel:[phone] [facility], [address] [place] [address] [address], [place], [place], [address], [place] tel:[phone] [facility] No Information 9-200 9 Doisy Edward. [address] , [address], [place], [facility], . tel:[phone] [facility], [address] [place] [address] [address], [place], [place], [address], tel:[phone] [facility] No Information 8200 9 Sathya Nain. [address] [facility] [address], [address], [place], [facility], . tel:[phone] Referring Provider: Heber Plunkett, [address], [place], [facility]. tel:[phone] Office/outpat ient Visit, [facility], [address] [place] [address] [address], [place], [place], [address], tel:[phone] [facility] No Information 200 9 [facility] Nain. [facility] [address] [address], [address], [place], [facility], . tel:[phone] Referring Provider: Heber Plunkett, [employer] [address], [place], [facility]. tel:[phone] [facility] Eye [facility], [address] [place] [address] [address], [place], [place], [address], tel:[phone] [facility] No Information 5200 9 Zimmer OD Heber. [facility] [address] [address], [address], [place], [facility], [place]. tel:[phone] Family History Family Member Type Diagnosis Age At Onset No Information Payers Payer name Insurance type Covered republican ID Authoriza tion(s) No Information Social History [...]
[2025-07-02 14:15] VITALS: BMI 20.5
--- NOTE | ~2025-07-09 | XR_ITS ---
EXAMINATION: XR fluoroscopy no charge DATE: 07/09/2025 08:58 INDICATION: Nerve blocks at the bilateral knees. TECHNIQUE: 19 fluoroscopic images of the bilateral knees were obtained during procedure performed by Dr. Early. Radiologist was not present for the imaging or procedure. The amount of fluoroscopy time used during this procedure was 1.8 minutes. 2 mm radiation dose was 4.81 mGy. COMPARISON: None. FINDINGS: Images demonstrate needle advanced with distal tips and small amount of injected contrast extending along the cortices at the anterior, left and right sides of the distal right and left femoral metaphyses and the cortices along the medial size of the proximal apices of the left and right tibia. IMPRESSION: 1. Fluoroscopy utilized during pain management procedures at the bilateral knees. See procedure note for further detail. Reviewed, dictated and finalized at location A. IMPRESSION: 1. Fluoroscopy utilized during pain management procedures at the bilateral knee s. See procedure note for further detail.
--- OUTSIDE RECORDS SUMMARY | 2025-07-09 07:54 | XMS_ITS | Encounter Summary ---
Author Organization [facility] Healthcare Address [address] [place] [address] Care Team Providers Care Wholesale Loan Processor Name Role Phone Priscilla Barrera MD Primary Care Provider [phone] Kali Hunt MD Primary Care Provider [phone] Devaughn Macias MD Primary Care Provider Denis Platt MD Primary Care Provide r Gideon Campbell MD Primary Care Provider [phone] Encounter Details Date Type Department Care Team (Late st Contact Info) Description 12/15/2017 Orders Only [facility] Information Management [address] [place] [address] Scanning, Provider Social History Tobacco Use Types Packs/Day Years Used Date Smoking Tobacco: Former Smokeless Tobacco: Never Alcohol Use Standard Drinks/Week Comments Yes 0 (1 standard drink = 0.6 oz pur e alcohol) Comments Unknown Sex and Gender Information Value Date Recorded Sex Assigned at Not on file Legal Sex Female 8:30 AM HARPOON ENGAGEMENT PLANNING OPERATOR Gender Identity Female 10/06/2021 4:28 PM HARPOON ENGAGEMENT PLANNING OPERATOR Sexual Orientation Choose not to disclose 2020 4:28 PM HARPOON ENGAGEMENT PLANNING OPERATOR documented as of this encounter Plan of Treatment Not on file documented as of this encounter Procedures Procedure Name Priority Date/Time Associated Diagnosis Comments SCAN - RADIOLOGY/IMAGING 12/18/2017 1:20 AM HARPOON ENGAGEMENT PLANNING OPERATOR documented in this encounter Results * SCAN - RADIOLOGY/IMAGING (12/18/2017 1:20 AM HARPOON ENGAGEMENT PLANNING OPERATOR) Anatomical Region Laterality Modality Other us Provider Scanning Edited Result - Final documented in this encounter Visit Diagnoses Not on filedocumented in this encounter Care Teams Wholesale Loan Processor Relationship Specialty Start Date End Date Priscilla Barrera MD [address] [place] [address] PCP - General 01/08/17 02/07/19 Kali Hunt MD [address] [place] [address] PCP - General Family Medicine 02/08/19 01/30/20 Devaughn Macias MD [address] [place] [address] PCP - General Family Medicine 01/31/20 01/13/22 Denis Platt MD [address] [place] [address] PCP - General Family Medicine 01/14/22 07/18/23 Gideon Campbell MD [address] [place] [address] [address] [place] [address] PCP - General Family Medicine 07/19/23 documented as of this encounter
--- OUTSIDE RECORDS SUMMARY | 2025-07-09 07:54 | XMS_ITS | Clinical Summary ---
Author Organization [facility] Address [address] [place] [address] Phone Care Team Providers Care Regulatory Submissions Associate Name Role Phone Gideon Campbell MD Primary Care Provider [phone] Allergies No known active allergies Medications warfarin [...] 1-dose 75+ series) 2012 Influenza Immunization (#1) 2025 SARS-COV-2 Immunization ( season) 2025 03/16/2022, 08/13/2021, 12/06/2020, Additional history exists Hepatitis [...] topic Medical Devices Implanted Type Area Manager Child Device Identifier Shelf Expiration Date Model / Serial / Lot Shell Actb 54mm Hip Sector Gription [place] - [id number] Implanted:Qty: 1 on 04/07/2022 by Herber Knott MD at [facility] IMPLANT Left: Hip [employer] 02/08/2032 [id number] / [id number] / [id number] Liner Actb Altrx [place] Neutral 54mm 36mm Hip - [id number] Implanted:Qty: 1 on 04/07/2022 by Herber Knott MD at [facility] IMPLANT Left: Hip [employer] 08/10/2026 [id number] / [id number] / [id number] Screw Bone 6.5mm 35mm [place] Dome 4 Point Cut Flute Hip Actb Canc Slftp Hex Head Blunt Tip - [id number] Implanted:Qty: 1 on 04/07/2022 by Herber Knott MD at [facility] IMPLANT Left: Hip [employer] 09/09/2031 [id number] / [id number] / [id number] Head Fem 1.5mm /14 Taper 36mm Hip Cementless Biolox Delta Articul/Warren - [id number] Implanted:Qty: 1 on 04/07/2022 by Herber Knott MD at [facility] IMPLANT Left: Hip [employer] 02/07/2027 [id number] / [id number] / [id number] Depuy Femoral Stem /14 Taper Actis Duofix Hip Prothesis Cementless, High Vollar Implanted:Qty: 1 on 04/07/2022 by Herber Knott MD at [facility] Left: Hip [employer] 12/09/2031 [id number] / [id number] / [id number] Insurance [facility] on file Advance Directives * Full Code (Latest Code Status on File) Date Activated Date Inactivated Comments 04/17/2022 9:30 AM Care Teams Regulatory Submissions Associate Relationship Specialty Start Date End Date Gideon Campbell MD [address] [place] [address] [place] [address] PCP - General Chief Petroleum Engineer 02/16/24
--- OUTSIDE RECORDS SUMMARY | 2025-07-09 07:54 | XMS_ITS | Encounter Summary ---
Author Organization [facility] Address [address] [place] [address] Phone Care Team Providers Care Policy Cancellation Clerk Name Role Phone Provider, Not On File Primary Care Provider Unav ailable Denis Platt MD Primary Care Provider [phone] Gideon Campbell MD Primary Care Provider Encounter Details Date Type Department Care Team (Late st Contact Info) Description 03/24/2022 Transcribe Orders [facility] [address] [place] [id number] Herber Knott MD [address] [place] [address], [address] [place] [address] Pre-op testing (Primary Dx) Social [...] ABO TYPING O 04/04/2022 11:22 AM CDT [facility] RH Positive 04/04/2022 11:22 AM CDT [facility] ABSC Negative 04/04/2022 11:22 AM CDT [facility] Blood Venipuncture / Unknown 04/04/2022 9:50 AM CDT 04/04/2022 10:04 AM CDT Herber Knott MD BLOOD BANK ORDERABLES Ed ited Result - Final [facility] [address] [place] [address] * SARS-COV-2 BY MOLECULAR (04/04/2022 9:46 AM CDT) Pathologist [facility] SARSCOV2 NOT DETECTED (Referenc e Range for this test is Not Detected) [facility] ID NOW 04/04/2022 10:33 AM CDT [facility] Comment:This test was perfor med by a MOLECULAR, NON-PCR method Other NASAL STRUCTURE / Unknown Non-Phlebotomy Collection / Unknown 04/04/2022 9:46 AM CDT 04/04/2022 10:04 AM CDT Narrative [facility] - 04/04/2022 10:33 AM CDT [...] information for Clinicians can be found at: https://www.fda.gov/media/982599/download Additional information for Patients can be found at: https://www.fda.gov/media/281448/download Herber Knott MD MICROBIOLOGY - GENERAL O RDERABLES Final Result [facility] [address] [place] [address] documented in this encounter Visit Diagnoses Diagnosis Pre-op testing- Primary Preoperative examination, unspecified documented in this encounter Care Teams Policy Cancellation Clerk Relationship Specialty Start Date End Date Provider, Not On File [place] PCP - General 03/19/22 04/07/22 Denis Platt MD [address] [place] [address] PCP - General Pediatrics 04/08/22 02/15/24 Gideon Campbell MD [address] [place] [address] [place] [address] PCP - General Model Artists' 02/16/24 documented as of this encounter
--- OUTSIDE RECORDS SUMMARY | 2025-07-09 07:54 | XMS_ITS | Encounter Summary ---
Author Organization [facility] Healthcare Address [address] [place] [address] Care Team Providers Care Reel Winder Name Role Phone Devaughn Macias MD Primary Care Provider Denis Platt MD Primary Care Provide r Gideon Campbell MD Primary Care Provider [phone] Encounter Details Date Type Department Care Team (Late st Contact Info) Description 10/15/2021 Telephone [facility] [address] [place] [address] Katie Hendrix, DORINDA Social History Tobacco Use Types Packs/Day Years Used Date Smoking Tobacco: Former Cigarettes Q uit: 09/28/1978 Smokeless Tobacco: Never Alcohol Use Standard Drinks/Week Comments Yes 0 (1 standard drink = 0.6 oz pur e alcohol) Comments Unknown Sex and Gender Information Value Date Recorded Sex Assigned at Not on file Legal Sex Female 8:30 AM SALES MARKET LEADER Gender Identity Female 10/06/2021 4:28 PM SALES MARKET LEADER Sexual Orientation Choose not to disclose 2020 4:28 PM SALES MARKET LEADER documented as of this encounter Plan of Treatment Not on file documented as of this encounter Visit Diagnoses Not on filedocumented in this encounter Care Teams Reel Winder Relationship Specialty Start Date End Date Devaughn Macias MD PCP - General Family Medicine 01/31/20 01/13/22 Denis Platt MD [address] [place] [address] PCP - General Family Medicine 01/14/22 07/18/23 Gideon Campbell MD 2 [facility] [address] [address] PCP - General Family Medicine 07/19/23 documented as of this encounter
--- OUTSIDE RECORDS SUMMARY | 2025-07-09 07:54 | XMS_ITS | Encounter Summary ---
Author Organization [facility] Healthcare Address [address] [place] [address] Care Team Providers Care Director Of Sustainability Name Role Phone Devaughn Macias MD Primary Care Provider Denis Platt MD Primary Care Provide r Gideon Campbell MD Primary Care Provider [phone] Encounter Details Date Type Department Care Team (Late st Contact Info) Description 10/17/2021 Telephone [facility] [address] [place] [address] Katie Hendrix, DORINDA Social History Tobacco Use Types Packs/Day Years Used Date Smoking Tobacco: Former Cigarettes Q uit: 09/28/1978 Smokeless Tobacco: Never Alcohol Use Standard Drinks/Week Comments Yes 0 (1 standard drink = 0.6 oz pur e alcohol) Comments Unknown Sex and Gender Information Value Date Recorded Sex Assigned at Not on file Legal Sex Female 8:30 AM PERSONNEL ANALYST Gender Identity Female 10/06/2021 4:28 PM PERSONNEL ANALYST Sexual Orientation Choose not to disclose 2020 4:28 PM PERSONNEL ANALYST documented as of this encounter Plan of Treatment Not on file documented as of this encounter Visit Diagnoses Not on filedocumented in this encounter Care Teams Director Of Sustainability Relationship Specialty Start Date End Date Devaughn Macias MD PCP - General Family Medicine 01/31/20 01/13/22 Denis Platt MD [address] [place] [address] PCP - General Family Medicine 01/14/22 07/18/23 Gideon Campbell MD 2 [facility] [address] [address] PCP - General Family Medicine 07/19/23 documented as of this encounter
--- OUTSIDE RECORDS SUMMARY | 2025-07-09 07:54 | XMS_ITS | Encounter Summary ---
Author Organization [facility] Address [address] [facility] [address] [place] [address] Care Team Providers Care Bottle Blowing Machine Tender Name Role Phone Priscilla Barrera MD Primary Care Provider [phone] Priscilla Barrera MD Primary Care Provider [phone] Kali Hunt MD Primary Care Provider [phone] Devaughn Macias MD Primary Care Provider Denis Platt MD Primary Care Provide r Gideon Campbell MD Primary Care Provider [phone] Encounter Details Date Type Department Care Team (Late st Contact Info) Description 10/29/2016 Orders Only [facility] Provider, MD Peggy [address] [place] [address] Social History Tobacco Use Types Packs/Day Years Used Date Smoking Tobacco: Former Cigarettes Q uit: 10/11/1977 Alcohol Use Standard Drinks/Week Comments Yes 0 (1 standard drink = 0.6 oz pur e alcohol) Comments Unknown Sex and Gender Information Value Date Recorded Sex Assigned at Not on file Legal Sex Female 8:30 AM CUSTOMER ASSOCIATE Gender Identity Female 10/06/2021 4:28 PM CUSTOMER ASSOCIATE Sexual Orientation Choose not to disclose 2020 4:28 PM CUSTOMER ASSOCIATE documented as of this encounter Plan [...] filedocumented in this encounter Care Teams Bottle Blowing Machine Tender Relationship Specialty Start Date End Date Priscilla Barrera MD [address] [place] [address] PCP - General 01/08/17 02/07/19 Priscilla Barrera MD [address] [place] [address] PCP - General 08/27/16 01/07/17 Kali Hunt MD [email or web address] [place] [address] PCP - General Family Medicine 02/08/19 01/30/20 Devaughn Macias MD [email or web address] [place] [address] PCP - General Family Medicine 01/31/20 01/13/22 Denis Platt MD [address] [place] [address] PCP - General Family Medicine 01/14/22 07/18/23 Gideon Campbell MD [address] [place] [address] [place] [address] PCP - General Family Medicine 07/19/23 documented as of this encounter
--- OUTSIDE RECORDS SUMMARY | 2025-07-09 07:54 | XMS_ITS | Encounter Summary ---
Author Organization [facility] Address [address] [facility] [address] [place] [address] Care Team Providers Care Hammerer Name Role Phone Priscilla Barrera MD Primary Care Provider [phone] Priscilla Barrera MD Primary Care Provider [phone] Kali Hunt MD Primary Care Provider [phone] Devaughn Macias MD Primary Care Provider Denis Platt MD Primary Care Provide r Gideon Campbell MD Primary Care Provider [phone] Encounter Details Date Type Department Care Team (Late st Contact Info) Description 12/24/2016 Orders Only [facility] Provider, MD Peggy [address] [place] [address] Social History Tobacco Use Types Packs/Day Years Used Date Smoking Tobacco: Former Cigarettes Q uit: 10/11/1977 Alcohol Use Standard Drinks/Week Comments Yes 0 (1 standard drink = 0.6 oz pur e alcohol) Comments Unknown Sex and Gender Information Value Date Recorded Sex Assigned at Not on file Legal Sex Female 8:30 AM EVP STRATEGY Gender Identity Female 10/06/2021 4:28 PM EVP STRATEGY Sexual Orientation Choose not to disclose 2020 4:28 PM EVP STRATEGY documented as of this encounter Plan of [...] on filedocumented in this encounter Care Teams Hammerer Relationship Specialty Start Date End Date Priscilla Barrera MD [address] [place] [address] PCP - General 01/08/17 02/07/19 Priscilla Barrera MD [address] [place] [address] PCP - General 08/27/16 01/07/17 Kali Hunt MD [address] [place] [address] PCP - General Family Medicine 02/08/19 01/30/20 Devaughn Macias MD [address] [place] [address] PCP - General Family Medicine 01/31/20 01/13/22 Denis Platt MD [address] [place] [address] PCP - General Family Medicine 01/14/22 07/18/23 Gideon Campbell MD [address] [place] [address] [place] [address] PCP - General Family Medicine 07/19/23 documented as of this encounter
--- OUTSIDE RECORDS SUMMARY | 2025-07-09 07:55 | XMS_ITS | Encounter Summary ---
Author Organization [facility] Address [address] [facility] [address] [place] [address] Care Team Providers Care Site Operations Manager Name Role Phone Priscilla Barrera MD Primary Care Provider [phone] Priscilla Barrera MD Primary Care Provider [phone] Priscilla Barrera MD Primary Care Provider [phone] Kali Hunt MD Primary Care Provider [phone] Devaughn Macias MD Primary Care Provider Denis Platt MD Primary Care Provide r Gideon Campbell MD Primary Care Provider [phone] Encounter Details Date Type Department Care Team (Late st Contact Info) Description 07/23/2016 Orders Only [facility] Provider, MD Peggy [address] [place] [address] Social History Tobacco Use Types Packs/Day Years Used Date Smoking Tobacco: Former Cigarettes Q uit: 10/11/1977 Alcohol Use Standard Drinks/Week Comments Yes 0 (1 standard drink = 0.6 oz pur e alcohol) Comments Unknown Sex and Gender Information Value Date Recorded Sex Assigned at Not on file Legal Sex Female 8:30 AM MOTION AND TIME STUDY TEACHER Gender Identity Female 10/06/2021 4:28 PM MOTION AND TIME STUDY TEACHER Sexual Orientation Choose not to disclose 2020 4:28 PM MOTION AND TIME STUDY TEACHER documented as of this encounter Plan [...] filedocumented in this encounter Care Teams Site Operations Manager Relationship Specialty Start Date End Date Priscilla Barrera MD [address] [place] [address] PCP - General 01/08/17 02/07/19 Priscilla Barrera MD [address] [place] [address] PCP - General 08/27/16 01/07/17 Priscilla Barrera MD [address] [place] [address] PCP - General 01/30/16 08/26/16 Kali Hunt MD [address] [place] [address] PCP - General Family Medicine 02/08/19 01/30/20 Devaughn Macias MD [address] [place] [address] PCP - General Family Medicine 01/31/20 01/13/22 Denis Platt MD [address] [place] [address] PCP - General Family Medicine 01/14/22 07/18/23 Gideon Campbell MD [address] [facility] [address] [place] [address] PCP - General Family Medicine 07/19/23 documented as of this encounter
--- OUTSIDE RECORDS SUMMARY | 2025-07-09 07:55 | XMS_ITS | Encounter Summary ---
Author Organization [facility] Address [address] [facility] [address] [place] [address] Care Team Providers Care Customer Insight Analyst Name Role Phone Priscilla Barrera MD Primary Care Provider [phone] Priscilla Barrera MD Primary Care Provider [phone] Priscilla Barrera MD Primary Care Provider [phone] Kali Hunt MD Primary Care Provider [phone] Devaughn Macias MD Primary Care Provider Denis Platt MD Primary Care Provide r Gideon Campbell MD Primary Care Provider Encounter Details Date Type Department Care Team (Late st Contact Info) Description 07/22/2016 Orders Only [facility] Provider, MD Peggy [address] [place] [address] Social History Tobacco Use Types Packs/Day Years Used Date Smoking Tobacco: Former Cigarettes Q uit: 10/11/1977 Alcohol Use Standard Drinks/Week Comments Yes 0 (1 standard drink = 0.6 oz pur e alcohol) Comments Unknown Sex and Gender Information Value Date Recorded Sex Assigned at Not on file Legal Sex Female 8:30 AM THROUGH FREIGHT ENGINEER Gender Identity Female 10/06/2021 4:28 PM THROUGH FREIGHT ENGINEER Sexual Orientation Choose not to disclose 2020 4:28 PM THROUGH FREIGHT ENGINEER documented as of this encounter Plan [...] filedocumented in this encounter Care Teams Customer Insight Analyst Relationship Specialty Start Date End Date Priscilla Barrera MD [address] [place] [address] PCP - General 01/08/17 02/07/19 Priscilla Barrera MD [address] [place] [address] PCP - General 08/27/16 01/07/17 Priscilla Barrera MD [address] [place] [address] PCP - General 01/30/16 08/26/16 Kali Hunt MD [address] [place] [address] PCP - General Family Medicine 02/08/19 01/30/20 Devaughn Macias MD [address] [place] [address] PCP - General Family Medicine 01/31/20 01/13/22 Denis Platt MD [address] [place] [address] PCP - General Family Medicine 01/14/22 07/18/23 Gideon Campbell MD [address] [facility] [address] [place] [address] PCP - General Family Medicine 07/19/23 documented as of this encounter
--- OUTSIDE RECORDS SUMMARY | 2025-07-09 07:55 | XMS_ITS | Clinical Summary ---
Author Organization [facility] Address [address] [place] [address] Care Team Providers Care Architecture Internship Name Role Phone Gideon Campbell MD Primary Care Provider [phone] Allergies No known active allergies Medications ascorbic [...] 06/15/2023 Assessment & Plan (10/18/2023 2:47 PM ATHLETIC COORDINATOR): Worsening sx at this time Weight loss 01/27/2023 Assessment & Plan (10/18/2023 2:38 PM ATHLETIC COORDINATOR): Wt Readings from Last 3 Encounters: 10/18/23 [...] is recommended that he remain anticoagulated for thromboprophylaxis.[id number]. Left carotid bruit 10/13/2017 Ventricular ectopy 05/17/2017 [...] 04/07/2017 Assessment & Plan (10/18/2023 2:39 PM ATHLETIC COORDINATOR): BP Readings from Last 3 Encounters: 10/18/23 [...] EKG. Assessment & Plan (08/19/2017 10:05 AM ATHLETIC COORDINATOR): Post repeat ablation of her highly symptomatic [...] an office visit and 12 lead EKG. group home current use of anticoagulant therapy 0 03/29/2017 [...] bleeding Assessment & Plan (08/19/2017 10:05 AM ATHLETIC COORDINATOR): She remains anticoagulated on Coumadin. She has a [id number] score of 4, therefore it is recommended that she remain anticoagulated for thromboprophylaxis. 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 Family History Medical [...] on file Legal Sex Female 8:30 AM ATHLETIC COORDINATOR Gender Identity Female 10/06/2021 4:28 PM ATHLETIC COORDINATOR Sexual Orientation Choose not to disclose 2020 4:28 PM ATHLETIC COORDINATOR Obstetrics History Last Filed Vital Signs Vital [...] Body Mass Index 21.52 12/13/2023 10:47 AM ATHLETIC COORDINATOR Plan of Treatment Health Maintenance Due Date [...] 06/18/2023, 08/06/2022, Additional history exists Insurance MEDICARE [facility] Address: [address] [address] [place] [address] [facility] Address: [address] [address] [place] [address] Care Teams Architecture Internship Relationship Specialty Start Date End Date Gideon Campbell MD [address] [place] [address] [address] [place] [address] PCP - General Family Medicine 07/19/23
--- OUTSIDE RECORDS SUMMARY | 2025-07-09 07:55 | XMS_ITS | Encounter Summary ---
Author Organization [facility] Address [address] [place] [address] Care Team Providers Care Final Inspector Balance Wheel Name Role Phone Devaughn Macias MD Primary Care Provider Denis Platt MD Primary Care Provide r Gideon Campbell MD Primary Care Provider [phone] Encounter Details Date Type Department Care Team (Late st Contact Info) Description 06/18/2020 Telephone [facility] [address] [place] [address] Jagdish Ortega RT Social History Tobacco Use Types Packs/Day Years Used Date Smoking Tobacco: Former Cigarettes Q uit: 09/28/1978 Smokeless Tobacco: Never Alcohol Use Standard Drinks/Week Comments Yes 0 (1 standard drink = 0.6 oz pur e alcohol) Comments Unknown Sex and Gender Information Value Date Recorded Sex Assigned at Not on file Legal Sex Female 8:30 AM CORPORATION OFFICER Gender Identity Female 10/06/2021 4:28 PM CORPORATION OFFICER Sexual Orientation Choose not to disclose 2020 4:28 PM CORPORATION OFFICER documented as of this encounter Plan of Treatment Not on file documented as of this encounter Visit Diagnoses Not on filedocumented in this encounter Care Teams Final Inspector Balance Wheel Relationship Specialty Start Date End Date Devaughn Macias MD PCP - General Family Medicine 01/31/20 01/13/22 Denis Platt MD [address] [place] [address] PCP - General Family Medicine 01/14/22 07/18/23 Gideon Campbell MD [address] [facility] [address] [place] [address] PCP - General Family Medicine 07/19/23 documented as of this encounter
--- OUTSIDE RECORDS SUMMARY | 2025-07-09 07:55 | XMS_ITS | Encounter Summary ---
Author Organization [facility] Address [address] [facility] [address] [place] [address] Care Team Providers Care Head Grower Name Role Phone Priscilla Barrera MD Primary Care Provider [phone] Priscilla Barrera MD Primary Care Provider [phone] Priscilla Barrera MD Primary Care Provider [phone] Kali Hunt MD Primary Care Provider [phone] Devaughn Macias MD Primary Care Provider Denis Platt MD Primary Care Provide r Gideon Campbell MD Primary Care Provider [phone] Encounter Details Date Type Department Care Team (Late st Contact Info) Description 06/24/2016 Orders Only [facility] Provider, MD Peggy [address] [place] [address] Social History Tobacco Use Types Packs/Day Years Used Date Smoking Tobacco: Former Cigarettes Q uit: 10/11/1977 Alcohol Use Standard Drinks/Week Comments Yes 0 (1 standard drink = 0.6 oz pur e alcohol) Comments Unknown Sex and Gender Information Value Date Recorded Sex Assigned at Not on file Legal Sex Female 8:30 AM ZIPPER SETTER CHAINSTITCH Gender Identity Female 10/06/2021 4:28 PM ZIPPER SETTER CHAINSTITCH Sexual Orientation Choose not to disclose 2020 4:28 PM ZIPPER SETTER CHAINSTITCH documented as of this encounter Plan of [...] filedocumented in this encounter Care Teams Head Grower Relationship Specialty Start Date End Date Priscilla Barrera MD [address] [place] [address] PCP - General 01/08/17 02/07/19 Priscilla Barrera MD [address] [place] [address] PCP - General 08/27/16 01/07/17 Priscilla Barrera MD [address] [place] [address] PCP - General 01/30/16 08/26/16 Kali Hunt MD [address] [place] [address] PCP - General Family Medicine 02/08/19 01/30/20 Devaughn Macias MD [address] [place] [address] PCP - General Family Medicine 01/31/20 01/13/22 Denis Platt MD [address] [place] [address] PCP - General Family Medicine 01/14/22 07/18/23 Gideon Campbell MD [address] [facility] [address] [place] [address] PCP - General Family Medicine 07/19/23 documented as of this encounter
--- NOTE | 2025-07-09 08:03 | P.OP_ITS ---
Procedure Note - Detailed Date of Procedure 07/09/25 Pre-op Diagnosis Primary Arthritis Bilateral Knee, arthralgia bilateral knee Post-op Diagnosis Same Procedure Performed Diagnostic Blockade of the bilateral Superior Medial, Inferior Medial and Superior Lateral Genicular Nerves, Vastus Intermedius nerve under Fluoroscopic Guidance (8 nerves blocked). Surgeon Karan Early MD Anesthesia Local Description of Procedure INFORMED CONSENT: Risks, benefits and alternatives to the procedure were dis cussed in detail with the patient who expressed explicit understanding and consent to proceed. Patient was informed verbally and in written form regarding the risks associated with the procedure including the low risk of serious infection, bleeding/bruising, allergic reaction, nerve injury, paralysis, procedural site pain or discomfort, worsening pain and/or mobility, failure to treat and disfigurement. The patient expressed explicit understanding and consent to proceed. All materials required for the procedure were available prior to procedure start. Site and side was marked prior to procedure and confirmed in the presence of the patient. PROCEDURE IN DETAIL: The patient was brought to the procedural suite and placed in the supine position. Patient was made comfortable with use of pillows under the head/shoulder, knees and ankles. Skin overlying anterior, medial and lateral surface of the knee joint on the right side was prepared broadly with ChloraPrep applicator and draped in a sterile manner. Aseptic technique was used throughout. The intersection between the femoral shaft and the medial femoral condyle, lateral femoral condyle and between the medial tibial plateau and tibial shaft were visualized in the AP view, as well as the line bisecting the femur and perpendicular to the short axis of the joint space 6cm proximal to the superior border of the patella with the knee partially flexed at 120 degrees. Local anesthesia was established by infiltration with approximately 3 mL of 2% lidocaine via a 1-1/2 inch 27-gauge needle at the skin and soft tissues overlying each site. A 25-gauge 3.5 inch quincke spinal needle was advanced until the needle tip contacted periosteum at each location, and was then walked off medially to approximate the position of the Superior and Inferior Medial Genicular nerves or laterally to approximate the position of the Superior Lateral Genicular nerve, and just superficial to femoral periosteum 6cm proximal to the patella to block the Vastus intermedius nerve. Needle depth was verified in the lateral view revealing appropriate needle positioning at each location. 0.5ml of Omnipaque 300 contrast medium was injected at each site confirming appropriate perineural spread of contrast without evidence of intravascular or intra-articular spread. After repeat negative aspiration, 0.5-1.0ml of 2.0% PF lidocaine was injected at each site to block the respective nerves. Needle was removed completely intact without difficulty. The same exact procedure was repeated on the contralateral side (left knee) under fluoroscopic guidance in a similar manner modified only it to accommodate contralateral procedure location without evidence of complication. Patient tolerated this well. Images were saved and documented in the patient chart. Patient's skin was cleansed and sterile bandage applied. The patient tolerated the procedure well. The patient was transported to the recovery area in stable condition where they were observed for an appropriate amount of time prior to discharge, without evidence of complication. Patient was instructed on the appropriate completion of a pain diary over the next 12-24 hours. The patient was instructed to avoid excessive activity for the next 48 hours, including climbing and frequent use of stairs. Showers only for 48 hours. They were instructed not to drive or operate heavy machinery for 24 hours. They are to monitor for severe headaches, fevers, chills, night sweats, erythema/swelling at the site or any other signs of infection, bleeding/bruising, bowel or bladder changes as well as new pain, weakness or numbness in the upper or lower extremity. Should they notice these changes, they are instructed to call our office immediately or report directly to the nearest Emergency Department if no answer or if after posted office hours. CONTRAST WASTED: 26 mL Omnipaque 300. Complications No immediate complications Condition Stable Disposition Same day [facility] Billing Surgery - Charge Forward: Surgery Billing
--- NOTE | 2025-07-09 08:03 | WPDHPUPDATE1 ---
History and Physical Update Update Date/Time: 07/09/25 08:03 History and Physical has been reviewed, including an updated exam of the patient. There are NO changes in the patient's condition. Risks, benefits, and alternatives have been discussed and questions answered. Patient agrees to proceed with procedure.
[2025-07-09 08:13] VITALS: BP 156/63; PULSE 70; RESP 16; TEMP 37.6; O2SAT 100
[2025-07-09 08:38] VITALS: BP 199/84; PULSE 70; RESP 16; O2SAT 96
[2025-07-09] MEDS: LIDOCAINE 1% PF INJ 5 ML VIAL 10 ML INFILTRATE (08:40)
[2025-07-09] MEDS: LIDOCAINE 2% PF LOCAL INJ 5 ML VIAL INFILTRATE (08:41)
[2025-07-09 08:46] VITALS: BP 186/73; PULSE 62; RESP 12; O2SAT 98
[2025-07-09 08:54] VITALS: PULSE 61; RESP 97; O2SAT 96
[2025-07-09 09:02] VITALS: BP 171/71; PULSE 68; RESP 18; O2SAT 100
== END 2025-07-09 09:20 | disposition home or self-care (01) ==
PROVIDERS: PCP Family Medicine; Visit Provider Anesthesiology Pain Medicine
PROC: (CPT 64454; principal; 2025-07-09 08:30)
DX: M17.0 Bilateral primary osteoarthritis of knee (principal)
CPT/HCPCS: 64454; 99199

== ENCOUNTER 2025-07-11 07:44 | Observation (INO) | payer MEDICARE, SELFPAY ==
--- OUTSIDE RECORDS SUMMARY | 2009-11-28 04:00 | XMS_ITS | Continuity of Care Document ---
Author Organization [facility] Address [address] [place] [address] Phone Care Team Providers Care Bone Plant Supervisor Name Role Phone Zimmer OD, Heber Unavailable Unavailable Procedures Procedure Date Post-op Follow-up Visit Refraction Post-op Follow-up Visit Remove Cataract, Insert Lens PreOp Assessment Performed Office/outpatient Visit, Est IOLMaster-Professional Post-op Follow-up Visit Post-op Follow-up Visit Remove Cataract, Insert Lens PreOp Assessment Performed Office/outpatient Visit, Est No Script IOLMaster Cataract Kit SEC MV Tax - Medical Eye Exam, New Patient No Script Advance Directives Directive Yes / No Effective Date File Name No Information Encounters Encounter Description Practice Location Reason(s) For Visit Diagnoses Date Provider Providers Copied on Encounter [facility], [address], [place], [place], [address], [place] tel:[phone] SEC [facility] No Information 8-201 0 Zimmer OD Heber. [address], [place], [address], [place]. tel:[phone] [facility], [address] [place] [address] [address], [place], [place], [address], tel:[phone] SEC [facility] No Information [phone] Zimmer OD Heber. [address], [place], [place], [facility], [place]. tel:[phone] [facility], [address] [place] [address] [address], [place], [place], [address], [place] tel:[phone] [facility] No Information 0 [phone] Doisy Edward. [address], [place], [facility], [place]. tel:[phone] Referring Provider: Heber Zimmer OD A, [facility] [address], [place], [facility]. tel:[phone] Office/outpat ient Visit, [facility], [address] [place] [address] [address], [place], [place], [address], tel:[phone] [facility] No Information 201 0 Doisy Edward. [address], [place], [facility], [place]. tel:[phone] Referring Provider: Heber Zimmer OD A, [facility] [address], [place], [facility]. tel:[phone] [facility], [address] [place] [address] [address], [place], [place], [address], [place] tel:[phone] [facility] No Information 3-200 9 Zimmer OD Heber. [address], [place], [facility], [place]. tel:[phone] [facility], [address] [place] [address] [address], [place], [place], [address], [place] tel:[phone] [facility] No Information 9-200 9 Doisy Edward. [address], [place], [facility], . tel:[phone] [facility], [address] [place] [address] [address], [place], [place], [address], tel:[phone] [facility] No Information 8200 9 Sathya Nain. [address] [facility] [address], [address], [place], [facility], . tel:[phone] Referring Provider: Heber Plunkett, [address], [place], [facility]. tel:[phone] Office/outpat ient Visit, [facility], [address] [place] [address] [address], [place], [place], [address], tel:[phone] [facility] No Information 200 9 [facility] Nain. [facility] [address], [address], [place], [facility], . tel:[phone] Referring Provider: Heber Plunkett, [address], [place], [facility]. tel:[phone] [facility] Eye [facility], [address] [place] [address] [address], [place], [place], [address], tel:[phone] [facility] No Information 5200 9 Zimmer OD Heber. [facility] [address], [address], [place], [facility], [place]. tel:[phone] Family History Family Member Type Diagnosis Age At Onset No Information Payers Payer name Insurance type Covered constitution party ID Authoriza tion(s) No Information Social History Type Description Quantity Date Captured Comments Sex Female Smoking Status No Information Chief Complaint And Reason For Visit No Information Reason For Referral Reason For Referral No Information History Of Present Illness Encounter Date Complaint History Of Prese nt Illness No Information Functional Status Date Functional Assessmen t No Information Instructions Date Instruction Additional Infor mation No Information Assessments Type Assessment Date No Information Patient Care Teams Name Effective Dates (start - stop) Status Members No Information
--- OUTSIDE RECORDS SUMMARY | 2009-11-28 04:00 | XMS_ITS | Continuity of Care Document ---
Author Organization [facility] Address [address] [place] [address] Phone Care Team Providers Care Customs Manager Name Role Phone Zimmer OD, Heber Unavailable [...] Diagnoses Date Provider Providers Copied on Encounter [facility], [address], [place], [place], [address], [place] tel:[phone] SEC [facility] No Information 8-201 0 Zimmer OD Heber. [address], [place], [address], [place]. tel:[phone] [facility], [address] [place] [address] [address], [place], [place], [address], tel:[phone] SEC [facility] No Information 0 5-201 0 Zimmer OD Heber. [address] , [address], [place], [facility], [place]. tel:[phone] [facility], [address] [place] [address] [address], [place], [place], [address], [place] tel:[phone] [facility] No Information 0 4-201 0 Doisy Edward. [address] , [address], [place], [facility], [place]. tel:[phone] Referring Provider: Heber Zimmer OD A, [facility] [address], [place], [facility]. tel:[phone] Office/outpat ient Visit, [facility], [address] [place] [address] [address], [place], [place], [address], tel:[phone] [facility] No Information 201 0 Doisy Edward. [address], [place], [facility], [place]. tel:[phone] Referring Provider: Heber Zimmer OD A, [facility] [address], [place], [facility]. tel:[phone] [facility], [address] [place] [address] [address], [place], [place], [address], [place] tel:[phone] [facility] No Information 3-200 9 Zimmer OD Heber. [address] , [address], [place], [facility], [place]. tel:[phone] [facility], [address] [place] [address] [address], [place], [place], [address], [place] tel:[phone] [facility] No Information 9-200 9 Doisy Edward. [address] , [address], [place], [facility], . tel:[phone] [facility], [address] [place] [address] [address], [place], [place], [address], tel:[phone] [facility] No Information 8200 9 Sathya Nain. [address] [facility] [address] [address], [address], [place], [facility], . tel:[phone] Referring Provider: Heber Plunkett, [address], [place], [facility]. tel:[phone] Office/outpat ient Visit, [facility], [address] [place] [address] [address], [place], [place], [address], tel:[phone] [facility] No Information 200 9 [facility] Nain. [facility] [address], [address], [place], [facility], . tel:[phone] Referring Provider: Heber Plunkett, [address] [address], [place], [facility]. tel:[phone] [facility] Eye [facility], [address] [place] [address] [address], [place], [place], [address], tel:[phone] [facility] No Information 5200 9 Zimmer OD Heber. [facility] [address], [address], [place], [facility], [place]. tel:[phone] Family History Family Member Type Diagnosis Age [...]
[2025-07-11] VITALS (12 sets, daily range): BP systolic 137–174; BP diastolic 56–81; PULSE 39–198; RESP 12–22; TEMP 36.2–36.6; O2SAT 96–98; BMI 20.3
--- NOTE | ~2025-07-11 | XR_ITS ---
Examination: XR chest 1V portable Clinical History: sob Comparison: 10/15/2024 Technique: Portable AP Findings: Heart size normal. Minimally increased interstitial markings. No acute bony abnormality. IMPRESSION: 1. Mild interstitial pulmonary edema and/or pneumonitis. Reviewed, dictated and finalized at location R.
--- NOTE | ~2025-07-11 | CT_ITS ---
EXAMINATION: CT brain wo laura, 07/11/2025 8:00 CDT HISTORY: ams COMPARISON: No comparisons available. Technique: Axial images obtained of the brain without contrast. One or more of the following dose reduction techniques were used: automated exposure control, adjustment of the mA and/or kV according to patient size, use of iterative reconstruction technique. Findings: No acute infarct or parenchymal hemorrhage. No abnormal mass or mass effect. No midline shift. No extra-axial fluid collections. No hydrocephalus. Mastoid air cells unremarkable. Sinuses and orbits unremarkable. No acute fracture. No significant facial or scalp soft tissue swelling evident. No radiopaque foreign body is seen. Impression: 1. Motion artifact limits evaluation, no acute infarct or hemorrhage Reviewed, dictated and finalized at location P. Impression: 1. Motion artifact limits evaluation, no acute infarct or hemorrhage
--- OUTSIDE RECORDS SUMMARY | 2025-07-11 07:49 | XMS_ITS | Encounter Summary ---
Author Organization [facility] Address [address] [place] [address] Care Team Providers Care Cloth Roll Winder Name Role Phone Devaughn Macias MD Primary Care Provider Denis Platt MD Primary Care Provide r Gideon Campbell MD Primary Care Provider [phone] Encounter Details Date Type Department Care Team (Late st Contact Info) Description 10/17/2021 Telephone 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 Gender Identity Female 10/06/2021 4:28 PM PRESIDENT [employer] Sexual Orientation Choose not to disclose 2020 4:28 PM PRESIDENT CON[employer]ER [employer] documented as of this encounter Plan of Treatment Not on file documented as of this encounter Visit Diagnoses Not on filedocumented in this encounter Care Teams Cloth Roll Winder Relationship Specialty Start Date End Date Devaughn Macias MD PCP - General Family Medicine 01/31/20 01/13/22 Denis Platt MD [address] [place] [address] PCP - General Family Medicine 01/14/22 07/18/23 Gideon Campbell MD 2 [facility] [address] [address] PCP - General Family Medicine 07/19/23 documented as of this encounter
--- OUTSIDE RECORDS SUMMARY | 2025-07-11 07:49 | XMS_ITS | Clinical Summary ---
Author Organization [facility] Address [address] [place] [address] Care Team Providers Care Cost Accounting Manager Name Role Phone Gideon Campbell MD Primary Care Provider [phone] Allergies No known active allergies Medications ascorbic [...] 06/15/2023 Assessment & Plan (10/18/2023 2:47 PM SPRAY PAINTER): Worsening sx at this time Weight loss 01/27/2023 Assessment & Plan (10/18/2023 2:38 PM SPRAY PAINTER): Wt Readings from Last 3 Encounters: 10/18/23 [...] is recommended that he remain anticoagulated for thromboprophylaxis.[id number]. Left carotid bruit 10/13/2017 Ventricular ectopy 05/17/2017 [...] 04/07/2017 Assessment & Plan (10/18/2023 2:39 PM SPRAY PAINTER): BP Readings from Last 3 Encounters: 10/18/23 [...] EKG. Assessment & Plan (08/19/2017 10:05 AM SPRAY PAINTER): Post repeat ablation of her highly symptomatic [...] an office visit and 12 lead EKG. jail current use of anticoagulant therapy 0 03/29/2017 [...] bleeding Assessment & Plan (08/19/2017 10:05 AM SPRAY PAINTER): She remains anticoagulated on Coumadin. She has a COG9OG-FGGq score of 4, therefore it is recommended that she remain anticoagulated for thromboprophylaxis. 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 Family History Medical [...] on file Legal Sex Female 8:30 AM SPRAY PAINTER Gender Identity Female 10/06/2021 4:28 PM SPRAY PAINTER Sexual Orientation Choose not to disclose 2020 4:28 PM SPRAY PAINTER Obstetrics History Last Filed Vital Signs Vital [...] Body Mass Index 21.52 12/13/2023 10:47 AM SPRAY PAINTER Plan of Treatment Health Maintenance Due Date [...] 06/18/2023, 08/06/2022, Additional history exists Insurance MEDICARE [facility] MEDICARE ADVANTAGE [facility] MEDICARE ADVANTAGE Care Teams Cost Accounting Manager Relationship Specialty Start Date End Date Gideon Campbell MD [address] [place] [address] [address] [place] [address] PCP - General Family Medicine 07/19/23
--- OUTSIDE RECORDS SUMMARY | 2025-07-11 07:49 | XMS_ITS | Clinical Summary ---
Author Organization [facility] Address [address] [place] [address] Phone Care Team Providers Care Manager Industrial Name Role Phone Gideon Campbell MD Primary Care Provider [phone] Allergies No known active allergies Medications warfarin [...] this topic Medical Devices Implanted Type Area Targeting Acquisition Officer Device Identifier Shelf Expiration Date Model / Serial / Lot Shell Actb 54mm Hip Sector Gription [place] - [id number] Implanted:Qty: 1 on 04/07/2022 by Herber Knott MD at [facility] IMPLANT Left: Hip [employer] 02/08/2032 [id number] / [id number] / [id number] Liner Actb Altrx [place] Neutral 54mm 36mm Hip - [id number] Implanted:Qty: 1 on 04/07/2022 by Herber Knott MD at [facility] IMPLANT Left: Hip [employer] 08/10/2026 [id number] / [id number] / [id number] Screw Bone 6.5mm 35mm [place] Dome 4 Point Cut Flute Hip Actb Canc Slftp Hex Head Blunt Tip - [id number] Implanted:Qty: 1 on 04/07/2022 by Herber Knott MD at [facility] IMPLANT Left: Hip [employer] 09/09/2031 [id number] / [id number] / [id number] Head Fem 1.5mm /14 Taper 36mm Hip Cementless Biol[employer] Delta Articul/Warren - [id number] Implanted:Qty: 1 on 04/07/2022 by Herber Knott MD at [facility] IMPLANT Left: Hip [employer] 02/07/2027 [id number] / [id number] / [id number] Depuy Femoral Stem /14 Taper Actis Duofix Hip Prothesis Cementless, High Vollar Implanted:Qty: 1 on 04/07/2022 by Herber Knott MD at [facility] Left: Hip [employer] 12/09/2031 [id number] / [id number] / [id number] Insurance [facility] on file Advance Directives * Full Code (Latest Code Status on File) Date Activated Date Inactivated Comments 04/17/2022 9:30 AM Care Teams Manager Industrial Relationship Specialty Start Date End Date Gideon Campbell MD [address] [place] [address] [place] [address] PCP - General Breaker Oiler 02/16/24
--- OUTSIDE RECORDS SUMMARY | 2025-07-11 07:49 | XMS_ITS | Encounter Summary ---
Author Organization [facility] Address [address] [facility] [address] [place] [address] Care Team Providers Care Sleeve Presser Operator Name Role Phone Priscilla Barrera MD Primary Care Provider [phone] Priscilla Barrera MD Primary Care Provider [phone] Kali Hunt MD Primary Care Provider [phone] Devaughn Macias MD Primary Care Provider Denis Platt MD Primary Care Provide r Gideon Campblel MD Primary Care Provider [phone] Encounter Details Date Type Department Care Team (Late st Contact Info) Description 12/24/2016 Orders Only [facility] Provider, MD Peggy [address] [place] [address] Social History Tobacco Use Types Packs/Day Years Used Date Smoking Tobacco: Former Cigarettes Q uit: 10/11/1977 Alcohol Use Standard Drinks/Week Comments Yes 0 (1 standard drink = 0.6 oz pur e alcohol) Comments Unknown Sex and Gender Information Value Date Recorded Sex Assigned at Not on file Legal Sex Female 8:30 AM WAX ROOM SUPERVISOR Gender Identity Female 10/06/2021 4:28 PM WAX ROOM SUPERVISOR Sexual Orientation Choose not to disclose 2020 4:28 PM WAX ROOM SUPERVISOR documented as of this encounter [...] on filedocumented in this encounter Care Teams Sleeve Presser Operator Relationship Specialty Start Date End Date Priscilla Barrera MD [address] [place] [address] PCP - General 01/08/17 02/07/19 Priscilla Barrera MD [address] [place] [address] PCP - General 08/27/16 01/07/17 Kali Hunt MD [address] [employer] [address] [place] [address] PCP - General Family Medicine 02/08/19 01/30/20 Devaughn Macias MD [address] [employer] [place] [address] PCP - General Family Medicine 01/31/20 01/13/22 Denis Platt MD [address] [place] [address] PCP - General Family Medicine 01/14/22 07/18/23 Gideon Campbell MD [address] [place] [address] [place] [address] PCP - General Family Medicine 07/19/23 documented as of this encounter
--- OUTSIDE RECORDS SUMMARY | 2025-07-11 07:49 | XMS_ITS | Encounter Summary ---
Author Organization [facility] Address [address] [facility] [address] [place] [address] Care Team Providers Care Surface Grinder Tender Name Role Phone Priscilla Barrera MD Primary Care Provider [phone] Priscilla Barrera MD Primary Care Provider [phone] Priscilla Barrera MD Primary Care Provider [phone] Kali Hunt MD Primary Care Provider [phone] Devaughn Macias MD Primary Care Provider Denis Platt MD Primary Care Provide r Gideon Campbell MD Primary Care Provider [phone] Encounter Details Date Type Department Care Team (Late st Contact Info) Description 07/23/2016 Orders Only [facility] Provider, MD Peggy [address] [place] [address] Social History Tobacco Use Types Packs/Day Years Used Date Smoking Tobacco: Former Cigarettes Q uit: 10/11/1977 Alcohol Use Standard Drinks/Week Comments Yes 0 (1 standard drink = 0.6 oz pur e alcohol) Comments Unknown Sex and Gender Information Value Date Recorded Sex Assigned at Not on file Legal Sex Female 8:30 AM WORKPLACE REHABILITATION OFFICER Gender Identity Female 10/06/2021 4:28 PM WORKPLACE REHABILITATION OFFICER Sexual Orientation Choose not to disclose 2020 4:28 PM WORKPLACE REHABILITATION OFFICER documented as of this encounter Plan [...] on filedocumented in this encounter Care Teams Surface Grinder Tender Relationship Specialty Start Date End Date Priscilla Barrera MD [address] [place] [address] PCP - General 01/08/17 02/07/19 Priscilla Barrera MD [address] [place] [address] PCP - General 08/27/16 01/07/17 Priscilla Barrera MD [address] [place] [address] PCP - General 01/30/16 08/26/16 Kali Hunt MD [address] [place] [address] PCP - General Family Medicine 02/08/19 01/30/20 Devaughn Macias MD [address] [place] [address] PCP - General Family Medicine 01/31/20 01/13/22 Denis Platt MD [address] [place] [address] PCP - General Family Medicine 01/14/22 07/18/23 Gideon Campbell MD 2 [facility] [address] [place] [address] PCP - General Family Medicine 07/19/23 documented as of this encounter
--- OUTSIDE RECORDS SUMMARY | 2025-07-11 07:49 | XMS_ITS | Encounter Summary ---
Author Organization [facility] Address [address] [facility] [address] [place] [address] Care Team Providers Care Brewing Director Name Role Phone Priscilla Barrera MD Primary Care Provider [phone] Priscilla Barrera MD Primary Care Provider [phone] Kali Hunt MD Primary Care Provider [phone] Devaughn Macias MD Primary Care Provider Denis Platt MD Primary Care Provide r Gideon Campbell MD Primary Care Provider [phone] Encounter Details Date Type Department Care Team (Late st Contact Info) Description 10/29/2016 Orders Only [facility] Provider, MD Peggy [address] [place] [address] Social History Tobacco Use Types Packs/Day Years Used Date Smoking Tobacco: Former Cigarettes Q uit: 10/11/1977 Alcohol Use Standard Drinks/Week Comments Yes 0 (1 standard drink = 0.6 oz pur e alcohol) Comments Unknown Sex and Gender Information Value Date Recorded Sex Assigned at Not on file Legal Sex Female 8:30 AM INSTRUMENT MAKER AND REPAIRER Gender Identity Female 10/06/2021 4:28 PM INSTRUMENT MAKER AND REPAIRER Sexual Orientation Choose not to disclose 2020 4:28 PM INSTRUMENT MAKER AND REPAIRER documented as of this encounter Plan [...] on filedocumented in this encounter Care Teams Brewing Director Relationship Specialty Start Date End Date Priscilla Barrera MD [address] [place] [address] PCP - General 01/08/17 02/07/19 Priscilla Barrera MD [address] [place] [address] PCP - General 08/27/16 01/07/17 Kali Hunt MD [address] [employer] [place] [address] PCP - General Family Medicine 02/08/19 01/30/20 Devaughn Macias MD [address] [place] [address] PCP - General Family Medicine 01/31/20 01/13/22 Denis Platt MD [address] [place] [address] PCP - General Family Medicine 01/14/22 07/18/23 Gideon Campbell MD [address] [place] [address] [place] [address] PCP - General Family Medicine 07/19/23 documented as of this encounter
--- OUTSIDE RECORDS SUMMARY | 2025-07-11 07:49 | XMS_ITS | Encounter Summary ---
Author Organization [facility] Address [address] [place] [address] Care Team Providers Care Registered Dietitian Name Role Phone Devaughn Macias MD Primary Care Provider Denis Platt MD Primary Care Provide r Gideon Campbell MD Primary Care Provider [phone] Encounter Details Date Type Department Care Team (Late st Contact Info) Description 10/15/2021 Telephone [facility] [address] [place] [address] Katie Hendrix, DORINDA Social History Tobacco Use Types Packs/Day Years Used Date Smoking Tobacco: Former Cigarettes Q uit: 09/28/1978 Smokeless Tobacco: Never Alcohol Use Standard Drinks/Week Comments Yes 0 (1 standard drink = 0.6 oz pur e alcohol) Comments Unknown Sex and Gender Information Value Date Recorded Sex Assigned at Not on file Legal Sex Female 8:30 AM PAINTER MIRROR Gender Identity Female 10/06/2021 4:28 PM PAINTER MIRROR Sexual Orientation Choose not to disclose 2020 4:28 PM PAINTER MIRROR documented as of this encounter Plan of Treatment Not on file documented as of this encounter Visit Diagnoses Not on filedocumented in this encounter Care Teams Registered Dietitian Relationship Specialty Start Date End Date Devaughn Macias MD PCP - General Family Medicine 01/31/20 01/13/22 Denis Platt MD [address] [place] [address] PCP - General Family Medicine 01/14/22 07/18/23 Gideon Campbell MD 2 [facility] [address] [address] PCP - General Family Medicine 07/19/23 documented as of this encounter
--- OUTSIDE RECORDS SUMMARY | 2025-07-11 07:49 | XMS_ITS | Encounter Summary ---
Author Organization [facility] Healthcare Address [address] [place] [address] Care Team Providers Care Web Development Manager Name Role Phone Priscilla Barrera MD Primary Care Provider [phone] Kali Hunt MD Primary Care Provider [phone] Devaughn Macias MD Primary Care Provider Denis Platt MD Primary Care Provide r Gideon Campbell MD Primary Care Provider [phone] Encounter Details Date Type Department Care Team (Late st Contact Info) Description 12/15/2017 Orders Only [facility] Health Information Management [address] [place] [address] Scanning, Provider Social History Tobacco Use Types Packs/Day Years Used Date Smoking Tobacco: Former Smokeless Tobacco: Never Alcohol Use Standard Drinks/Week Comments Yes 0 (1 standard drink = 0.6 oz pur e alcohol) Comments Unknown Sex and Gender Information Value Date Recorded Sex Assigned at Not on file Legal Sex Female 8:30 AM DONATIONS ATTENDANT Gender Identity Female 10/06/2021 4:28 PM DONATIONS ATTENDANT Sexual Orientation Choose not to disclose 2020 4:28 PM DONATIONS ATTENDANT documented as of this encounter Plan of Treatment Not on file documented as of this encounter Procedures Procedure Name Priority Date/Time Associated Diagnosis Comments SCAN - RADIOLOGY/IMAGING 12/18/2017 1:20 AM DONATIONS ATTENDANT documented in this encounter Results * SCAN - RADIOLOGY/IMAGING (12/18/2017 1:20 AM DONATIONS ATTENDANT) Anatomical Region Laterality Modality Other us Provider Scanning Edited Result - Final documented in this encounter Visit Diagnoses Not on filedocumented in this encounter Care Teams Web Development Manager Relationship Specialty Start Date End Date Priscilla Barrera MD [address] [place] [address] PCP - General 01/08/17 02/07/19 Kali Hunt MD [address] [place] [address] PCP - General Family Medicine 02/08/19 01/30/20 Devaughn Macias MD [address] [place] [address] PCP - General Family Medicine 01/31/20 01/13/22 Denis Platt MD [address] [place] [address] PCP - General Family Medicine 01/14/22 07/18/23 Gideon Campbell MD [address] [place] [address] DR [address] [place] [address] PCP - General Family Medicine 07/19/23 documented as of this encounter
--- OUTSIDE RECORDS SUMMARY | 2025-07-11 07:49 | XMS_ITS | Encounter Summary ---
Author Organization [facility] Healthcare Address [address] [place] [address] Care Team Providers Care Material Controller Name Role Phone Devaughn Macias MD Primary Care Provider Denis Platt MD Primary Care Provide r Gideon Campbell MD Primary Care Provider [phone] Encounter Details Date Type Department Care Team (Late st Contact Info) Description 06/18/2020 Telephone [facility] [address] [place] [address] Jagdish Ortega RT Social History Tobacco Use Types Packs/Day Years Used Date Smoking Tobacco: Former Cigarettes Q uit: 09/28/1978 Smokeless Tobacco: Never Alcohol Use Standard Drinks/Week Comments Yes 0 (1 standard drink = 0.6 oz pur e alcohol) Comments Unknown Sex and Gender Information Value Date Recorded Sex Assigned at Not on file Legal Sex Female 8:30 AM ELECTRONIC DEVELOPMENT TECHNICIAN Gender Identity Female 10/06/2021 4:28 PM ELECTRONIC DEVELOPMENT TECHNICIAN Sexual Orientation Choose not to disclose 2020 4:28 PM ELECTRONIC DEVELOPMENT TECHNICIAN documented as of this encounter Plan of Treatment Not on file documented as of this encounter Visit Diagnoses Not on filedocumented in this encounter Care Teams Material Controller Relationship Specialty Start Date End Date Devaughn Macias MD PCP - General Family Medicine 01/31/20 01/13/22 Denis Platt MD [address] [place] [address] PCP - General Family Medicine 01/14/22 07/18/23 Gideon Campbell MD 2 [facility] [address] [place] [address] PCP - General Family Medicine 07/19/23 documented as of this encounter
--- OUTSIDE RECORDS SUMMARY | 2025-07-11 07:49 | XMS_ITS | Encounter Summary ---
Author Organization [facility] Address [address] [facility] [address] [place] [address] Care Team Providers Care Ems Driver Name Role Phone Priscilla Barrera MD Primary Care Provider [phone] Priscilla Barrera MD Primary Care Provider [phone] Priscilla Barrera MD Primary Care Provider [phone] Kali Hunt MD Primary Care Provider [phone] Devaughn Macias MD Primary Care Provider Denis Platt MD Primary Care Provide r Gideon Campbell MD Primary Care Provider [phone] Encounter Details Date Type Department Care Team (Late st Contact Info) Description 06/24/2016 Orders Only [facility] Provider, MD Peggy [address] [place] [address] Social History Tobacco Use Types Packs/Day Years Used Date Smoking Tobacco: Former Cigarettes Q uit: 10/11/1977 Alcohol Use Standard Drinks/Week Comments Yes 0 (1 standard drink = 0.6 oz pur e alcohol) Comments Unknown Sex and Gender Information Value Date Recorded Sex Assigned at Not on file Legal Sex Female 8:30 AM APARTMENT LEASING SPECIALIST Gender Identity Female 10/06/2021 4:28 PM APARTMENT LEASING SPECIALIST Sexual Orientation Choose not to disclose 2020 4:28 PM APARTMENT LEASING SPECIALIST documented as of this encounter Plan [...] on filedocumented in this encounter Care Teams Ems Driver Relationship Specialty Start Date End Date Priscilla Barrera MD [address] [place] [address] PCP - General 01/08/17 02/07/19 Priscilla Barrera MD [address] [place] [address] PCP - General 08/27/16 01/07/17 Priscilla Barrera MD [address] [place] [address] PCP - General 01/30/16 08/26/16 Kali Hunt MD [address] [place] [address] PCP - General Family Medicine 02/08/19 01/30/20 Devaughn Macias MD [address] [place] [address] PCP - General Family Medicine 01/31/20 01/13/22 Denis Platt MD [address] [place] [address] PCP - General Family Medicine 01/14/22 07/18/23 Gideon Campbell MD [address] [facility] [address] [place] [address] PCP - General Family Medicine 07/19/23 documented as of this encounter
--- OUTSIDE RECORDS SUMMARY | 2025-07-11 07:49 | XMS_ITS | Encounter Summary ---
Author Organization [facility] Address [address] [facility] [address] [place] [address] Care Team Providers Care Operations Logistics Analyst Name Role Phone Priscilla Barrera MD Primary Care Provider [phone] Priscilla Barrera MD Primary Care Provider [phone] Priscilla Barrera MD Primary Care Provider [phone] Kali Hunt MD Primary Care Provider [phone] Devaughn Macias MD Primary Care Provider Denis Platt MD Primary Care Provide r Gideon Campbell MD Primary Care Provider [phone] Encounter Details Date Type Department Care Team (Late st Contact Info) Description 07/22/2016 Orders Only [facility] Provider, MD Peggy [address] [place] [address] Social History Tobacco Use Types Packs/Day Years Used Date Smoking Tobacco: Former Cigarettes Q uit: 10/11/1977 Alcohol Use Standard Drinks/Week Comments Yes 0 (1 standard drink = 0.6 oz pur e alcohol) Comments Unknown Sex and Gender Information Value Date Recorded Sex Assigned at Not on file Legal Sex Female 8:30 AM CHEMICAL ENGINEERING TEACHER Gender Identity Female 10/06/2021 4:28 PM CHEMICAL ENGINEERING TEACHER Sexual Orientation Choose not to disclose 2020 4:28 PM CHEMICAL ENGINEERING TEACHER documented as of this encounter Plan [...] on filedocumented in this encounter Care Teams Operations Logistics Analyst Relationship Specialty Start Date End Date Priscilla Barrera MD [address] [place] [address] PCP - General 01/08/17 02/07/19 Priscilla Barrera MD [address] [place] [address] PCP - General 08/27/16 01/07/17 Priscilla Barrera MD [address] [place] [address] PCP - General 01/30/16 08/26/16 Kali Hunt MD [address] [place] [address] PCP - General Family Medicine 02/08/19 01/30/20 Devaughn Macias MD [address] [place] [address] PCP - General Family Medicine 01/31/20 01/13/22 Denis Platt MD [address] [place] [address] PCP - General Family Medicine 01/14/22 07/18/23 Gideon Campbell MD [address] [facility] [address] [place] [address] PCP - General Family Medicine 07/19/23 documented as of this encounter
--- OUTSIDE RECORDS SUMMARY | 2025-07-11 07:49 | XMS_ITS | Encounter Summary ---
Author Organization [facility] Address [address] [place] [address] Phone Care Team Providers Care Engraving Operator Name Role Phone Provider, Not On File Primary Care Provider Unav ailable Denis Platt MD Primary Care Provider Gideon Campbell MD Primary Care Provider [phone] Encounter Details Date Type Department Care Team (Late st Contact Info) Description 03/24/2022 [facility]cribe [facility] [address] [place] [id number] Herber Knott MD [address] [place] [address], [address] [place] [address] Pre-op testing (Primary Dx) Social [...] ABO TYPING O 04/04/2022 11:22 AM CDT [facility] RH Positive 04/04/2022 11:22 AM CDT [facility] ABSC Negative 04/04/2022 11:22 AM CDT [facility] Blood Venipuncture / Unknown 04/04/2022 9:50 AM CDT 04/04/2022 10:04 AM CDT Herber Knott MD BLOOD BANK ORDERABLES Ed ited Result - Final [facility] [place] [address] * SARS-COV-2 BY MOLECULAR (04/04/2022 9:46 AM CDT) Pathologist [facility] SARSCOV2 NOT DETECTED (Referenc e Range for this test is Not Detected) [facility] [place] ID NOW 04/04/2022 10:33 AM CDT [facility] Comment:This test was perfor med by a MOLECULAR, NON-PCR method Other NASAL STRUCTURE / Unknown Non-Phlebotomy Collection / Unknown 04/04/2022 9:46 AM CDT 04/04/2022 10:04 AM CDT Narrative [facility] - 04/04/2022 10:33 AM CDT [...] information for Clinicians can be found at: https://www.fda.gov/media/639924/download Additional information for Patients can be found at: https://www.fda.gov/media/587514/download Herber Knott MD MICROBIOLOGY - GENERAL O RDERABLES Final Result [facility] [place] [address] documented in this encounter Visit Diagnoses Diagnosis Pre-op testing- Primary Preoperative examination, unspecified documented in this encounter Care Teams Engraving Operator Relationship Specialty Start Date End Date Provider, Not On File [place] PCP - General 03/19/22 04/07/22 Denis Platt MD [address] [place] [address] PCP - General Pediatrics 04/08/22 02/15/24 Gideon Campbell MD [address] [place] [address] [place] [address] PCP - General Processing Supervisor 02/16/24 documented as of this encounter
[2025-07-11] MEDS: ONDANSETRON INJ 4 MG/2 ML VIAL IV PUSH ×2 (07:54→10:00)
--- NOTE | 2025-07-11 07:54 | ECG_ITS ---
Test Date: 2025-07-11 07:51:29 Measurements Intervals Buena Rate: 78 P: 0 AR: 0 QRS: -74 QRSD: 145 T: 82 QT: 374 QTc: 428 Interpretive Statements SINU RHYTHM WITH SECOND DEGREE AV BLOCK TYPE I OR II WITH VENTRICULAR BIGEMINY RIGHT BUNDLE BRANCH BLOCK LEFT ANTERIOR FASCICULAR BLOCK ANTEROSEPTAL INFARCT, AGE INDETERMINATE BASELINE ARTIFACT- AVR, AVL, V2-V3 ABNORMAL ECG Compared to ECG 10/15/2024 01:43:36 SECOND DEGREE AV BLOCK NOW PRESENT Electronically Signed On 07-11-2025 08:31:39 CDT by Adán Gunter D.O.
--- NOTE | 2025-07-11 08:06 | ED.GENADULT ---
HPI - General Adult General Chief complaint: Altered Mental Status Stated complaint: Altered Mental Status Time Seen by Provider: 07/11/25 07:54 Source: EMS Mode of arrival: EMS Limitations: clinical condition History of Present Illness HPI narrative: Patient is an 89-year-old female who became unresponsive to the emergency room and was thought to be in the field but found to be responsive to touch. She is brought in for further evaluation and treatment. She was hooked up to the monitor and found to be in ventricular arrhythmia to include bigeminy and then tachycardia and also an event of fibrillation. She was in and out of responsiveness. Patient had a DNR with selective treatment to repair arrhythmias acceptable. Family present. Family called 911 when she was unresponsive and felt that she looked like she was having a stroke. EMS did not find any stroke symptoms. ER presentation did not see any stroke signs. Onset (ago): day(s) (One) Location: chest (Patient was having recurrent chest pain when she was responsive and correlated with V-tach events) and abdomen (Patient was having abdominal pain after she became responsive) Radiation: non-radiation Severity: moderate Severity scale (1-10): 5 Quality: sharp Pain Consistency: intermittent Relieving factors: other (Amiodarone slowed the ventricular arrhythmia and symptoms; the abdominal pain was unclear and she was chose to be care and comfort measure (full DNR) at that point before further evaluation of the abdominal pain) Exacerbating factors: none (Patient was brittle with her arrhythmia and heart block) Associated symptoms: confusion, chest pain, malaise, nausea/vomiting, shortness of breath, syncope and weakness (Generalized) Treatments prior to arrival: none Related Data Home Medications ?Medication ?Instructions ?Recorded ?Confirmed ?Last Taken ?Type multivitamin 1 tablet PO DAILY 12/07/24 07/11/25 07/09/25 History docusate sodium 100 mg capsule 100 mg PO DAILY 05/31/25 07/11/25 07/09/25 History (Colace) ferrous sulfate 325 mg (65 mg 325 mg PO DAILY 05/31/25 07/11/25 07/09/25 History iron) tablet (Iron (ferrous sulfate)) amlodipine 5 mg tablet 5 mg PO DAILY 07/02/25 07/11/25 07/09/25 History losartan 100 mg tablet 100 mg PO DAILY 07/02/25 07/11/25 07/09/25 History Allergies Allergy/AdvReac Type Severity Reaction Status Date / Time No Known Allergies Allergy Unknown Verified 07/11/25 08:00 Review of Systems Review of Systems: All systems reviewed & are unremarkable except as noted in HPI and below Constitutional: Constitutional: Reports no additional constitutional complaints Eyes: Eyes: Reports no additional eye complaints ENT: Reports system reviewed and no additional complaints, except as documented Cardiovascular: Cardiovascular: Reports no additional cardiovascular complaints Respiratory: Respiratory: Reports no additional respiratory complaints Gastrointestinal: Gastrointestinal: Reports no additional gastrointestinal complaints Genitourinary: Genitourinary: Reports no additional female genitourinary complaints Musculoskeletal: Musculoskeletal: Reports no additional musculoskeletal complaints Integumentary/Breasts: Skin/Breast: Reports system reviewed and no additional complaints, except as docu Neurologic: Reports system reviewed and no additional complaints, except as documented Psychiatric: Psychiatric: Reports no additional psychiatric complaints Endocrine: Endocrine: Reports no additional endocrine complaints Hematologic/Lymphatic: Hematologic/Lymphatic: Reports no additional hematologic/lymphatic complaints Allergic/Immunologic: Allergic/Immunologic: Reports no additional allergic/immunologic complaints PMFSH Past Medical History Medical History Anemia JUSTYN (acute kidney injury) COVID-19 Pneumonia Atrial fibrillation, chronic Hypertension Hyperlipidemia Surgical History Surgical History History of cardiac ablation for atrial fibrillation Hx of tonsillectomy Family History Family History Father Family history of malignant neoplasm Social History Social History Smoking packs per day: 1 Smoking cigarettes per day: 20.0 Years smoked: 20 Smoking pack-years: 20.00 Smoking status: Never smoker Tobacco type: cigarettes Second hand tobacco smoke exposure: No Smoking end date: 10/15/24 Alcohol intake: former Drinks per week: 7 Substance use: former Substance use type: does not use Do You Feel Safe in your Home?: Yes Lack of Transportation: No Lack of Food: Never True Current Housing: I Have Housing Concerned About Future Housing: No Difficulty Paying Gas/Electric Bills: No Difficulty Paying for Meds: No Currently Unemployed: No Education: High School Diploma/GED Difficulty w/ Childcare or Family Care: No Living arrangements: with family Gender identity (if verbalized by the patient): Female Spiritual care concerns: No Exam Const: General: ill appearing Nutritional Appearance: thin Limitations: altered mental status and other limitations (Clinical condition) HENMT: Head: normal to inspection Ears: external ears normal Face/Nose/Sinus: Normal external nose present Eyes: Conjunctivae: conjunctivae normal Pupils: Equal, round and reactive pupils present EOM: EOMs intact bilaterally Neck: Neck: normal visual inspection Chest: Chest palpation & inspection: normal inspection of the chest Resp: Effort & Inspection: normal respiratory effort and not labored Auscultation: not clear to auscultation bilaterally, no crackles, rales, no rhonchi, no wheezes, breath sounds present and diminished lung sounds Cardio: Rate: bradycardic (Variable) and tachycardic (Variable) Rhythm: regular rhythm (Irregular) Heart sounds: no murmurs GI: Inspection: non-distended GI Palp: Yes Soft to palpation and No Tenderness to palpation present (GI) Auscultation: normal bowel sounds : General: Yes bladder normal to palpation Back/Spine/Pelvis: Back: no CVA tenderness Skin: General skin exam: normal color Rashes: no rashes Wounds: no wounds Neuro: General: moves all extremities, no meningeal signs, no focal motor deficits and CN's II-XI intact bilaterally Other: Fast exam negative, NIH is 0, GCS is 9 Extrem: General: normal to inspection, no clubbing, cyanosis or edema and no pedal edema Psych: Affect: Anxious affect present Course Vital Signs Vital signs: Vital Signs Temperature 36.2 C L 07/11/25 07:55 Pulse Rate 98 07/11/25 07:55 Respiratory Rate 22 H 07/11/25 07:55 Blood Pressure 171/81 H 07/11/25 07:55 Pulse Oximetry 98 07/11/25 07:55 Oxygen Delivery Room Air 07/11/25 07:55 Temperature 36.7 C 07/12/25 00:00 Pulse Rate 51 L 07/12/25 00:00 Respiratory Rate 17 07/12/25 00:00 Blood Pressure 158/68 H 07/12/25 00:00 Pulse Oximetry 95 07/12/25 00:00 Oxygen Delivery Room Air 07/12/25 00:00 Oxygen Flow Rate 4 07/11/25 14:00 Medical Decision Making MDM Narrative Medical decision making narrative: Patient is an 89-year-old female with unresponsiveness and ventricular tachycardia with 1 bout of ventricular fib and found to be in [place] 2. Patient stabilized on the amiodarone drip and family changed her from a DNR selective to a full DNR and care and comfort measures. She will be admitted for monitoring and changing the hospice while admitted. ACLS protocol followed for illness. Medications required were amiodarone for the ventricular tachycardia a. Patient required resuscitation without CPR 1 time. As a whole, the patient had a poor quality of life according the family due to chronic pain. Vital Signs Vital Signs: Vital Signs Temperature 36.2 C L 07/11/25 07:55 Pulse Rate 98 07/11/25 07:55 Respiratory Rate 22 H 07/11/25 07:55 Blood Pressure 171/81 H 07/11/25 07:55 Pulse Oximetry 98 07/11/25 07:55 Oxygen Delivery Room Air 07/11/25 07:55 Temperature 36.7 C 07/12/25 00:00 Pulse Rate 51 L 07/12/25 00:00 Respiratory Rate 17 07/12/25 00:00 Blood Pressure 158/68 H 07/12/25 00:00 Pulse Oximetry 95 07/12/25 00:00 Oxygen Delivery Room Air 07/12/25 00:00 Oxygen Flow Rate 4 07/11/25 14:00 Lab Data Lab results reviewed: Yes I reviewed the patient's lab results. 07/11/25 08:15 07/11/25 08:15 Labs: Lab Results 07/11/25 Range/Units 08:15 WBC 14.5 H (4.8-10.8) K/mm3 RBC 4.11 L (4.20-5.40) M/mm3 Hgb 9.3 L (11.7-13.8) g/dL Hct 31.9 L (35.0-42.0) % MCV 77.6 L (78.0-102.0) fL MCH 22.6 L (27.0-31.0) pg MCHC 29.2 L (32-36) g/dL RDW 18.6 H (11.6-14.4) % Plt Count 586 H (150-420) K/mm3 MPV 9.0 L (9.2-11.8) fl Immature Gran % (Auto) 1.2 H (0.0-0.0) % Neut % (Auto) 85.2 H (50.0-70.0) % Lymph % (Auto) 8.5 L (18.0-42.0) % Mccormick % (Auto) 4.2 (2.0-11.0) % Eos % (Auto) 0.6 L (1.0-6.0) % Baso % (Auto) 0.3 (0.0-1.0) % Lymph # (Auto) 1.23 (1.10-4.50) K/mm3 Mccormick # (Auto) 0.61 (0.10-0.90) K/mm3 Eos # (Auto) 0.08 (0.02-0.50) K/mm3 Baso # (Auto) 0.05 (0.00-0.10) K/mm3 Abs Immat Gran (auto) 0.17 H (0.00-0.00) K/mm3 Absolute Neuts (auto) 12.38 H (1.70-7.20) K/mm3 Absolute Nucleated RBC 0.00 (0.00-0.00) K/mm3 Nucleated RBC % 0.0 (0-0.0) % % Immature Plt Fraction 0.8 L (1.0-7.0) % PT 12.3 H (9.50-12.1) Seconds INR 1.1 APTT 27.5 (23.9-30.70) Sec Sodium 144 (137-145) mmol/L Potassium 2.6 L* (3.4-5.0) mmol/L Chloride 104 (98-107) mmol/L Carbon Dioxide 24 (22-30) mmol/L Anion Gap 16 H (4-12) mmol/L BUN 15 (7-17) mg/dL Creatinine 0.88 (0.7-1.0) mg/dL Estim Creat Clear Calc 36 ml/min Estimated GFR > 60 (59 - ) Glucose 152 H (65-110) mg/dL Calculated Osmolality 301 H (285-295) mOsm/kg Lactic Acid 5.1 H (0.4-2.0) mmol/L Calcium 9.1 (8.4-10.2) mg/dL Magnesium 2.1 (1.6-2.3) mg/dL Total Bilirubin 1.4 H (0.2-1.3) mg/dL AST 33 (14-36) U/L ALT 23 (6-35) U/L Alkaline Phosphatase 177 H (38-126) U/L Total Creatine Kinase 35 (30-135) U/L Troponin I 0.038 H* (0.000-0.034) ng/mL NT-Pro-B Natriuret Pep 69193 H (19.9-100) pg/mL Total Protein 6.9 (6.3-8.2) g/dL Albumin 3.5 (3.5-5.1) g/dL Influenza A (RT-PCR) Negative (Negative) Influenza B (RT-PCR) Negative (Negative) RSV (RT-PCR) Negative (Negative) SARS-CoV-2 RNA (RT-PCR) Negative (Negative) ABG Data ABG results: 07/11/25 08:39 Puncture Site Right radial ABG pH 7.71 H* ABG pCO2 21.6 L ABG pO2 92.9 H ABG HCO3 26.5 ABG O2 Saturation 97.8 H ABG Base Excess 7.2 H Oxyhemoglobin 97.2 O2 Delivery Device Nasal cannula O2 Liters/Min 2.5 Attestation: I personally reviewed and interpreted this ABG as follows: Interpretation: PH 7.71, pCO2 was 21.6, PO2 92.9, bicarb 26.5 Imaging Data Attestation: I personally reviewed and interpreted this imaging study as follows: Radiologist's impression: CT scan of the head was negative for acute process Chest x-ray shows IMPRESSION: 1. Mild interstitial pulmonary edema and/or pneumonitis. Critical Care Time Critical Care Time Critical Care Time: Yes Total Critical Care Time: 60 Discharge Plan Discharge Clinical Impression: Heart block AV second degree, Pneumonitis, Admission for end of life care Arrhythmia Qualifiers: Arrhythmia type: other ventricular tachycardia Qualified Code(s): I47.29 - Other ventricular tachycardia CHF (congestive heart failure) Qualifiers: Heart failure type: unspecified Heart failure chronicity: unspecified Qualified Code(s): I50.9 - Heart failure, unspecified Patient Disposition: [facility] Condition: Critical Time of Disposition: 10:26
[2025-07-11 08:21] LABS: Hematocrit 31.9 % (35.0-42.0); Hemoglobin 9.3 g/dL (11.7-13.8); Immature Granulocyte Percent A 1.2 % (0.0-0.0); Immature Platelet Fraction Pct 0.8 % (1.0-7.0); Lymphocytes Absolute Auto 1.23 K/mm3 (1.10-4.50); Mean Corpuscular HGB Conc 29.2 g/dL (32-36); Mean Corpuscular Hemoglobin 22.6 pg (27.0-31.0); Mean Corpuscular Volume 77.6 fL (78.0-102.0); Nucleated Red Blood Cells Absolute Auto 0.00 K/mm3 (0.00-0.00); Nucleated Red Blood Cells Perc 0.0 % (0-0.0); Platelet Count Result 586 K/mm3 (150-420); Red Blood Count 4.11 M/mm3 (4.20-5.40); White Blood Count 14.5 K/mm3 (4.8-10.8)
--- OUTSIDE RECORDS SUMMARY | 2025-07-11 08:26 | XMS_ITS | Encounter Summary ---
Author Organization [facility] Address [address] [facility] [address] [place] [address] Care Team Providers Care Home Decorator Name Role Phone Priscilla Barrera MD Primary Care Provider [phone] Priscilla Barrera MD Primary Care Provider [phone] Kali Hunt MD Primary Care Provider [phone] Devaughn Macias MD Primary Care Provider Denis Platt MD Primary Care Provide r Gideon Campbell MD Primary Care Provider [phone] Encounter Details Date Type Department Care Team (Late st Contact Info) Description 12/24/2016 Orders Only [facility] Provider, MD Peggy [address] [place] [address] Social History Tobacco Use Types Packs/Day Years Used Date Smoking Tobacco: Former Cigarettes Q uit: 10/11/1977 Alcohol Use Standard Drinks/Week Comments Yes 0 (1 standard drink = 0.6 oz pur e alcohol) Comments Unknown Sex and Gender Information Value Date Recorded Sex Assigned at Not on file Legal Sex Female 8:30 AM OPEN SOAPER TENDER Gender Identity Female 10/06/2021 4:28 PM OPEN SOAPER TENDER Sexual Orientation Choose not to disclose 2020 4:28 PM OPEN SOAPER TENDER documented as of this encounter Plan [...] on filedocumented in this encounter Care Teams Home Decorator Relationship Specialty Start Date End Date Priscilla Barrera MD [address] [place] [address] PCP - General 01/08/17 02/07/19 Priscilla Barrera MD [address] [place] [address] PCP - General 08/27/16 01/07/17 Kali Hunt MD [id number] [place] [address] PCP - General Family Medicine 02/08/19 01/30/20 Devaughn Macias MD [email or web address] [place] [address] PCP - General Family Medicine 01/31/20 01/13/22 Denis Platt MD [address] [place] [address] PCP - General Family Medicine 01/14/22 07/18/23 Gideon Campbell MD [address] [place] [address] [place] [address] PCP - General Family Medicine 07/19/23 documented as of this encounter
--- OUTSIDE RECORDS SUMMARY | 2025-07-11 08:26 | XMS_ITS | Encounter Summary ---
Author Organization [facility] Address [address] [place] [address] Phone Care Team Providers Care Inspector Integrated Circuits Name Role Phone Provider, Not On File Primary Care Provider Unav ailable Denis Platt MD Primary Care Provider Gideon Campbell MD Primary Care Provider [phone] Encounter Details Date Type Department Care Team (Late st Contact Info) Description 03/24/2022 Transcribe [facility] [address] [place] [id number] Herber Knott MD [address] [place] [address], [address] [place] [address] Pre-op testing (Primary Dx) Social [...] ABO TYPING O 04/04/2022 11:22 AM CDT [facility] RH Positive 04/04/2022 11:22 AM CDT [facility] ABSC Negative 04/04/2022 11:22 AM CDT [facility] Blood Venipuncture / Unknown 04/04/2022 9:50 AM CDT 04/04/2022 10:04 AM CDT Herber Knott MD BLOOD BANK ORDERABLES Ed ited Result - Final [facility] [place] [address] * SARS-COV-2 BY MOLECULAR (04/04/2022 9:46 AM CDT) Pathologist [facility] [place] SARSCOV2 NOT DETECTED (Referenc e Range for this test is Not Detected) [facility] ID NOW 04/04/2022 10:33 AM CDT [facility] Comment:This test was perfor med by a MOLECULAR, NON-PCR method Other NASAL STRUCTURE / Unknown Non-Phlebotomy Collection / Unknown 04/04/2022 9:46 AM CDT 04/04/2022 10:04 AM CDT Narrative [facility] - 04/04/2022 10:33 AM CDT This [...] information for Clinicians can be found at: https://www.fda.gov/media/753548/download Additional information for Patients can be found at: https://www.fda.gov/media/582105/download Herber Knott MD MICROBIOLOGY - GENERAL O RDERABLES Final Result [facility] [address] [place] [place] [address] documented in this encounter Visit Diagnoses Diagnosis Pre-op testing- Primary Preoperative examination, unspecified documented in this encounter Care Teams Inspector Integrated Circuits Relationship Specialty Start Date End Date Provider, Not On File [place] PCP - General 03/19/22 04/07/22 Denis Platt MD [address] [place] [address] PCP - General Pediatrics 04/08/22 02/15/24 Gideon Campbell MD [address] [place] [address] [place] [address] PCP - General Pelletizer Operator 02/16/24 documented as of this encounter
--- OUTSIDE RECORDS SUMMARY | 2025-07-11 08:26 | XMS_ITS | Encounter Summary ---
Author Organization [facility] Address [address] [place] [address] Care Team Providers Care Nail Specialist Name Role Phone Priscilla Barrera MD Primary Care Provider [phone] Kali Hunt MD Primary Care Provider [phone] Devaughn Macias MD Primary Care Provider Denis Platt MD Primary Care Provide r Gideon Campbell MD Primary Care Provider [phone] Encounter Details Date Type Department Care Team (Late st Contact Info) Description 12/15/2017 Orders Only [facility] Health Information Management [address] [place] [address] Scanning, Provider Social History Tobacco Use Types Packs/Day Years Used Date Smoking Tobacco: Former Smokeless Tobacco: Never Alcohol Use Standard Drinks/Week Comments Yes 0 (1 standard drink = 0.6 oz pur e alcohol) Comments Unknown Sex and Gender Information Value Date Recorded Sex Assigned at Not on file Legal Sex Female 8:30 AM ROLL OFF DRIVER Gender Identity Female 10/06/2021 4:28 PM ROLL OFF DRIVER Sexual Orientation Choose not to disclose 2020 4:28 PM ROLL OFF DRIVER documented as of this encounter Plan of Treatment Not on file documented as of this encounter Procedures Procedure Name Priority Date/Time Associated Diagnosis Comments SCAN - RADIOLOGY/IMAGING 12/18/2017 1:20 AM ROLL OFF DRIVER documented in this encounter Results * SCAN - RADIOLOGY/IMAGING (12/18/2017 1:20 AM ROLL OFF DRIVER) Anatomical Region Laterality Modality Other us Provider Scanning Edited Result - Final documented in this encounter Visit Diagnoses Not on filedocumented in this encounter Care Teams Nail Specialist Relationship Specialty Start Date End Date Priscilla Barrera MD [address] [place] [address] PCP - General 01/08/17 02/07/19 Kali Hunt MD [address] [place] [address] PCP - General Family Medicine 02/08/19 01/30/20 Devaughn Macias MD [address] [place] [address] PCP - General Family Medicine 01/31/20 01/13/22 Denis Platt MD [address] [place] [address] PCP - General Family Medicine 01/14/22 07/18/23 Gideon Campbell MD [address] [place] [address] [address] [place] [address] PCP - General Family Medicine 07/19/23 documented as of this encounter
--- OUTSIDE RECORDS SUMMARY | 2025-07-11 08:26 | XMS_ITS | Clinical Summary ---
Author Organization [facility] Address [address] [place] [address] Care Team Providers Care Farm Consultant Name Role Phone Gideon Campbell MD Primary Care Provider [phone] Allergies No known active allergies Medications ascorbic [...] 06/15/2023 Assessment & Plan (10/18/2023 2:47 PM SHUTTLECOCK ASSEMBLER): Worsening sx at this time Weight loss 01/27/2023 Assessment & Plan (10/18/2023 2:38 PM SHUTTLECOCK ASSEMBLER): Wt Readings from Last 3 Encounters: 10/18/23 [...] is recommended that he remain anticoagulated for thromboprophylaxis.[id number]=1. Left carotid bruit 10/13/2017 Ventricular ectopy 05/17/2017 [...] 04/07/2017 Assessment & Plan (10/18/2023 2:39 PM SHUTTLECOCK ASSEMBLER): BP Readings from Last 3 Encounters: 10/18/23 [...] EKG. Assessment & Plan (08/19/2017 10:05 AM SHUTTLECOCK ASSEMBLER): Post repeat ablation of her highly symptomatic [...] bleeding Assessment & Plan (08/19/2017 10:05 AM SHUTTLECOCK ASSEMBLER): She remains anticoagulated on Coumadin. She has a [id number] score of 4, therefore it is recommended that she remain anticoagulated for thromboprophylaxis. 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 Family History [...] on file Legal Sex Female 8:30 AM SHUTTLECOCK ASSEMBLER Gender Identity Female 10/06/2021 4:28 PM SHUTTLECOCK ASSEMBLER Sexual Orientation Choose not to disclose 2020 4:28 PM SHUTTLECOCK ASSEMBLER Obstetrics History Last Filed Vital Signs Vital [...] Body Mass Index 21.52 12/13/2023 10:47 AM SHUTTLECOCK ASSEMBLER Plan of Treatment Health Maintenance Due Date [...] 06/18/2023, 08/06/2022, Additional history exists Insurance [facility] MEDICARE ADVANTAGE [facility] MEDICARE ADVANTAGE Care Teams Farm Consultant Relationship Specialty Start Date End Date Gideon Campbell MD [address] [place] [address] [address] [place] [address] PCP - General Family Medicine 07/19/23
--- OUTSIDE RECORDS SUMMARY | 2025-07-11 08:26 | XMS_ITS | Encounter Summary ---
Author Organization [facility] Address [address] [facility] [address] [place] [address] Care Team Providers Care Highway Painter Helper Name Role Phone Priscilla Barrera MD Primary Care Provider [phone] Priscilla Barrera MD Primary Care Provider [phone] Priscilla Barrera MD Primary Care Provider [phone] Kali Hunt MD Primary Care Provider [phone] Devaughn Macias MD Primary Care Provider Denis Platt MD Primary Care Provide r Gideon Campbell MD Primary Care Provider [phone] Encounter Details Date Type Department Care Team (Late st Contact Info) Description 06/24/2016 Orders Only [facility] Provider, MD Peggy [address] [place] [address] Social History Tobacco Use Types Packs/Day Years Used Date Smoking Tobacco: Former Cigarettes Q uit: 10/11/1977 Alcohol Use Standard Drinks/Week Comments Yes 0 (1 standard drink = 0.6 oz pur e alcohol) Comments Unknown Sex and Gender Information Value Date Recorded Sex Assigned at Not on file Legal Sex Female 8:30 AM ADMINISTRATIVE OFFICE SPECIALIST Gender Identity Female 10/06/2021 4:28 PM ADMINISTRATIVE OFFICE SPECIALIST Sexual Orientation Choose not to disclose 2020 4:28 PM ADMINISTRATIVE OFFICE SPECIALIST documented as of this encounter Plan [...] on filedocumented in this encounter Care Teams Highway Painter Helper Relationship Specialty Start Date End Date Priscilla Barrera MD [address] [place] [address] PCP - General 01/08/17 02/07/19 Priscilla Barrera MD [address] [place] [address] PCP - General 08/27/16 01/07/17 Priscilla Barrera MD [address] [place] [address] PCP - General 01/30/16 08/26/16 Kali Hunt MD [address] [place] [address] PCP - General Family Medicine 02/08/19 01/30/20 Devaughn Macias MD [address] [place] [address] PCP - General Family Medicine 01/31/20 01/13/22 Denis Platt MD [address] [place] [address] PCP - General Family Medicine 01/14/22 07/18/23 Gideon Campbell MD [address] [facility] [address] [place] [address] PCP - General Family Medicine 07/19/23 documented as of this encounter
--- OUTSIDE RECORDS SUMMARY | 2025-07-11 08:26 | XMS_ITS | Clinical Summary ---
Author Organization [facility] Address [address] [place] [address] Phone Care Team Providers Care Stationary Engineer Name Role Phone Gideon Campbell MD Primary Care Provider [phone] Allergies No known active allergies Medications warfarin [...] this topic Medical Devices Implanted Type Area Unclaimed Property Manager Device Identifier Shelf Expiration Date Model / Serial / Lot Shell Actb 54mm Hip Sector Gription Wirt - [id number] Implanted:Qty: 1 on 04/07/2022 by Herber Knott MD at [facility] IMPLANT Left: Hip [employer] 02/08/2032 [id number] / [id number] / [id number] Liner Actb Altrx Wirt Neutral 54mm 36mm Hip - [id number] Implanted:Qty: 1 on 04/07/2022 by Herber Knott MD at [facility] IMPLANT Left: Hip [employer] 08/10/2026 [id number] / [id number] / [id number] Screw Bone 6.5mm 35mm Wirt Dome 4 Point Cut Flute Hip Actb Canc Slftp Hex Head Blunt Tip - [id number] Implanted:Qty: 1 on 04/07/2022 by Herber Knott MD at [facility] IMPLANT Left: Hip [employer] 09/09/2031 [id number] / [id number] / [id number] Head Fem 1.5mm /14 Taper 36mm Hip Cementless Biolox Delta Articul/Warren - [id number] Implanted:Qty: 1 on 04/07/2022 by Herber Knott MD at [facility] IMPLANT Left: Hip [employer] 02/07/2027 [id number] / [id number] / [id number] Depuy Femoral Stem /14 Taper Actis Duofix Hip Prothesis Cementless, High Vollar Implanted:Qty: 1 on 04/07/2022 by Herber Knott MD at [facility] Left: Hip [employer] 12/09/2031 [id number] / [id number] / [id number] Insurance [facility] on file Advance Directives * Full Code (Latest Code Status on File) Date Activated Date Inactivated Comments 04/17/2022 9:30 AM Care Teams Stationary Engineer Relationship Specialty Start Date End Date Gideon Campbell MD [address] [place] [address] [place] [address] PCP - General Button Pusher 02/16/24
--- OUTSIDE RECORDS SUMMARY | 2025-07-11 08:26 | XMS_ITS | Encounter Summary ---
Author Organization [facility] Medical [facility] Address [address] [facility] [address] [place] [address] Care Team Providers Care Director Media Name Role Phone Priscilla Barrera MD Primary Care Provider Priscilla Barrera MD Primary Care Provider [phone] Priscilla Barrera MD Primary Care Provider [phone] Kali Hunt MD Primary Care Provider [phone] Devaughn Macias MD Primary Care Provider Denis Platt MD Primary Care Provide r Gideon Campbell MD Primary Care Provider [phone] Encounter Details Date Type Department Care Team (Late st Contact Info) Description 07/22/2016 Orders Only [facility] Provider, MD Peggy [address] [place] [address] Social History Tobacco Use Types Packs/Day Years Used Date Smoking Tobacco: Former Cigarettes Q uit: 10/11/1977 Alcohol Use Standard Drinks/Week Comments Yes 0 (1 standard drink = 0.6 oz pur e alcohol) Comments Unknown Sex and Gender Information Value Date Recorded Sex Assigned at Not on file Legal Sex Female 8:30 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 Gender Identity Female 10/06/2021 4:28 PM MARKETING TRAFFIC MANAGER Sexual Orientation Choose not to disclose 2020 4:28 PM MARKETING TRAFFIC MANAGER documented as of this encounter Plan [...] filedocumented in this encounter Care Teams Director Media Relationship Specialty Start Date End Date Priscilla Barrera MD [address] [place] [address] PCP - General 01/08/17 02/07/19 Priscilla Barrera MD [address] [place] [address] PCP - General 08/27/16 01/07/17 Priscilla Barrera MD [address] [place] [address] PCP - General 01/30/16 08/26/16 Kali Hunt MD [address] [place] [address] PCP - General Family Medicine 02/08/19 01/30/20 Devaughn Macias MD [address] [place] [address] PCP - General Family Medicine 01/31/20 01/13/22 Denis Platt MD [address] [place] [address] PCP - General Family Medicine 01/14/22 07/18/23 Gideon Campbell MD [address] [facility] [address] [place] [address] PCP - General Family Medicine 07/19/23 documented as of this encounter
--- OUTSIDE RECORDS SUMMARY | 2025-07-11 08:26 | XMS_ITS | Encounter Summary ---
Author Organization [facility] Healthcare Address [address] [place] [address] Care Team Providers Care Shotgun Shell Loading Machine Operator Name Role Phone Devaughn Macias MD Primary Care Provider Denis Platt MD Primary Care Provide r Gideon Campbell MD Primary Care Provider [phone] Encounter Details Date Type Department Care Team (Late st Contact Info) Description 10/15/2021 Telephone [facility] [address] [place] [address] Katie Hendrix, DORINDA Social History Tobacco Use Types Packs/Day Years Used Date Smoking Tobacco: Former Cigarettes Q uit: 09/28/1978 Smokeless Tobacco: Never Alcohol Use Standard Drinks/Week Comments Yes 0 (1 standard drink = 0.6 oz pur e alcohol) Comments Unknown Sex and Gender Information Value Date Recorded Sex Assigned at Not on file Legal Sex Female 8:30 AM ELEMENTARY SUPERVISOR Gender Identity Female 10/06/2021 4:28 PM ELEMENTARY SUPERVISOR Sexual Orientation Choose not to disclose 2020 4:28 PM ELEMENTARY SUPERVISOR documented as of this encounter Plan of Treatment Not on file documented as of this encounter Visit Diagnoses Not on filedocumented in this encounter Care Teams Shotgun Shell Loading Machine Operator Relationship Specialty Start Date End Date Devaughn Macias MD PCP - General Family Medicine 01/31/20 01/13/22 Denis Platt MD [address] [place] [address] PCP - General Family Medicine 01/14/22 07/18/23 Gideon Campbell MD 2 [facility] [address] [address] PCP - General Family Medicine 07/19/23 documented as of this encounter
--- OUTSIDE RECORDS SUMMARY | 2025-07-11 08:26 | XMS_ITS | Encounter Summary ---
Author Organization [facility] Medical [facility] Address [address] [facility] [address] [place] [address] Care Team Providers Care Production Intern Name Role Phone Priscilla Barrera MD Primary Care Provider [phone] Priscilla Barrera MD Primary Care Provider [phone] Kali Hunt MD Primary Care Provider [phone] Devaughn Macias MD Primary Care Provider Denis Platt MD Primary Care Provide r Gideon Campbell MD Primary Care Provider [phone] Encounter Details Date Type Department Care Team (Late st Contact Info) Description 10/29/2016 Orders Only [facility] Provider, MD Peggy [address] [place] [address] Social History Tobacco Use Types Packs/Day Years Used Date Smoking Tobacco: Former Cigarettes Q uit: 10/11/1977 Alcohol Use Standard Drinks/Week Comments Yes 0 (1 standard drink = 0.6 oz pur e alcohol) Comments Unknown Sex and Gender Information Value Date Recorded Sex Assigned at Not on file Legal Sex Female 8:30 AM JEWISH HISTORY PROFESSOR Gender Identity Female 10/06/2021 4:28 PM JEWISH HISTORY PROFESSOR Sexual Orientation Choose not to disclose 2020 4:28 PM JEWISH HISTORY PROFESSOR documented as of this encounter Plan of [...] filedocumented in this encounter Care Teams Production Intern Relationship Specialty Start Date End Date Priscilla Barrera MD [address] [place] [address] PCP - General 01/08/17 02/07/19 Priscilla Barrera MD [address] [place] [address] PCP - General 08/27/16 01/07/17 Kali Hunt MD [address] [place] [address] PCP - General Family Medicine 02/08/19 01/30/20 Devaughn Macias MD [address] [place] [address] PCP - General Family Medicine 01/31/20 01/13/22 Denis Platt MD [address] [place] [address] PCP - General Family Medicine 01/14/22 07/18/23 Gideon Campbell MD [address] [place] [address] [place] [address] PCP - General Family Medicine 07/19/23 documented as of this encounter
--- OUTSIDE RECORDS SUMMARY | 2025-07-11 08:26 | XMS_ITS | Encounter Summary ---
Author Organization [facility] Healthcare Address [address] [place] [address] Care Team Providers Care Venue Manager Name Role Phone Devaughn Macias MD Primary Care Provider Denis Platt MD Primary Care Provide r Gideon Campbell MD Primary Care Provider [phone] Encounter Details Date Type Department Care Team (Late st Contact Info) Description 06/18/2020 Telephone [facility] [address] [place] [address] Jagdish Ortega RT Social History Tobacco Use Types Packs/Day Years Used Date Smoking Tobacco: Former Cigarettes Q uit: 09/28/1978 Smokeless Tobacco: Never Alcohol Use Standard Drinks/Week Comments Yes 0 (1 standard drink = 0.6 oz pur e alcohol) Comments Unknown Sex and Gender Information Value Date Recorded Sex Assigned at Not on file Legal Sex Female 8:30 AM METAL HANDLER Gender Identity Female 10/06/2021 4:28 PM METAL HANDLER Sexual Orientation Choose not to disclose 2020 4:28 PM METAL HANDLER documented as of this encounter Plan of Treatment Not on file documented as of this encounter Visit Diagnoses Not on filedocumented in this encounter Care Teams Venue Manager Relationship Specialty Start Date End Date Devaughn Macias MD PCP - General Family Medicine 01/31/20 01/13/22 Denis Platt MD [address] [place] [address] PCP - General Family Medicine 01/14/22 07/18/23 Gideon Campbell MD [address] [facility] [address] [place] [address] PCP - General Family Medicine 07/19/23 documented as of this encounter
--- OUTSIDE RECORDS SUMMARY | 2025-07-11 08:26 | XMS_ITS | Encounter Summary ---
Author Organization [facility] Medical [facility] Address [address] [facility] [address] [place] [address] Care Team Providers Care Road Freight Firer Name Role Phone Priscilla Barrera MD Primary Care Provider [phone] Priscilla Barrera MD Primary Care Provider [phone] Priscilla Barrera MD Primary Care Provider [phone] Kali Hunt MD Primary Care Provider [phone] Devaughn Macias MD Primary Care Provider Denis Platt MD Primary Care Provide r Gideon Campbell MD Primary Care Provider [phone] Encounter Details Date Type Department Care Team (Late st Contact Info) Description 07/23/2016 Orders Only [facility] Provider, MD Peggy [address] [place] [address] Social History Tobacco Use Types Packs/Day Years Used Date Smoking Tobacco: Former Cigarettes Q uit: 10/11/1977 Alcohol Use Standard Drinks/Week Comments Yes 0 (1 standard drink = 0.6 oz pur e alcohol) Comments Unknown Sex and Gender Information Value Date Recorded Sex Assigned at Not on file Legal Sex Female 8:30 AM SCRATCH BRUSHER Gender Identity Female 10/06/2021 4:28 PM SCRATCH BRUSHER Sexual Orientation Choose not to disclose 2020 4:28 PM SCRATCH BRUSHER documented as of this encounter Plan of [...] filedocumented in this encounter Care Teams Road Freight Firer Relationship Specialty Start Date End Date Priscilla Barrera MD [address] [place] [address] PCP - General 01/08/17 02/07/19 Priscilla Barrera MD [address] [place] [address] PCP - General 08/27/16 01/07/17 Priscilla Barrera MD [address] [place] [address] PCP - General 01/30/16 08/26/16 Kali Hunt MD [address] [place] [address] PCP - General Family Medicine 02/08/19 01/30/20 Devaughn Macias MD [address] [place] [address] PCP - General Family Medicine 01/31/20 01/13/22 Denis Platt MD [address] [place] [address] PCP - General Family Medicine 01/14/22 07/18/23 Gideon Campbell MD [address] [facility] [address]JAS [address] [place] [address] PCP - General Family Medicine 07/19/23 documented as of this encounter
--- OUTSIDE RECORDS SUMMARY | 2025-07-11 08:26 | XMS_ITS | Encounter Summary ---
Author Organization [facility] Healthcare Address [address] [place] [address] Care Team Providers Care Test Puller Name Role Phone Devaughn Macias MD Primary Care Provider Denis Platt MD Primary Care Provide r Gideon Campbell MD Primary Care Provider [phone] Encounter Details Date Type Department Care Team (Late st Contact Info) Description 10/17/2021 Telephone [facility] [address] [place] [address] Katie Hendrix, DORINDA Social History Tobacco Use Types Packs/Day Years Used Date Smoking Tobacco: Former Cigarettes Q uit: 09/28/1978 Smokeless Tobacco: Never Alcohol Use Standard Drinks/Week Comments Yes 0 (1 standard drink = 0.6 oz pur e alcohol) Comments Unknown Sex and Gender Information Value Date Recorded Sex Assigned at Not on file Legal Sex Female 8:30 AM CHEMISTRY LABORATORY TECHNICIAN Gender Identity Female 10/06/2021 4:28 PM CHEMISTRY LABORATORY TECHNICIAN Sexual Orientation Choose not to disclose 2020 4:28 PM CHEMISTRY LABORATORY TECHNICIAN documented as of this encounter Plan of Treatment Not on file documented as of this encounter Visit Diagnoses Not on filedocumented in this encounter Care Teams Test Puller Relationship Specialty Start Date End Date Devaughn Macias MD PCP - General Family Medicine 01/31/20 01/13/22 Denis Platt MD [address] [place] [address] PCP - General Family Medicine 01/14/22 07/18/23 Gideon Campbell MD 2 [facility] [address] [address] PCP - General Family Medicine 07/19/23 documented as of this encounter
[2025-07-11 08:33] LABS: Magnesium 2.1 mg/dL (1.6-2.3)
[2025-07-11 08:34] LABS: Alanine Aminotransferase 23 U/L (6-35); Albumin Level 3.5 g/dL (3.5-5.1); Alkaline Phosphatase 177 U/L (38-126); Anion Gap 16 mmol/L (4-12); Aspartate Amino Transferase 33 U/L (14-36); Bilirubin,Total 1.4 mg/dL (0.2-1.3); Blood Urea Nitrogen 15 mg/dL (7-17); Calcium 9.1 mg/dL (8.4-10.2); Carbon Dioxide 24 mmol/L (22-30); Chloride 104 mmol/L (98-107); Creatine Kinase 35 U/L (30-135); Estimated CRCL calculation 36 ml/min; Estimated Glomerular Filt Rate > 60; Glucose 152 mg/dL (65-110); Osmolality Calculated 301 mOsm/kg (285-295); Sodium 144 mmol/L (137-145); Total Protein 6.9 g/dL (6.3-8.2)
[2025-07-11 08:36] LABS: INR 1.1; Partial Thromboplastin Time 27.5 Sec (23.9-30.70); Prothrombin Time 12.3 Seconds (9.50-12.1)
[2025-07-11 08:42] LABS: NT Pro B Type Natriuretic Pept 11400 pg/mL (19.9-100)
[2025-07-11 08:43] LABS: HCO3 ABG 26.5 mmol/L (23-29); Oxygen Saturation ABG 97.8 % (95-97); PCO2 ABG 21.6 mmHg (35-45); PO2 ABG 92.9 mmHg (75-85)
--- NOTE | 2025-07-11 08:45 | PC.NURSE ---
Pt in VFib. 1 Shock delivered
--- NOTE | 2025-07-11 08:46 | PC.NURSE ---
Rhythm returns to SR with 2nd degree block.
[2025-07-11 08:47] LABS: Potassium 2.6 mmol/L (3.4-5.0)
[2025-07-11 08:48] LABS: Troponin I 0.038 ng/mL (0.000-0.034)
[2025-07-11 08:48] LABS: Liters per Minute 2.5 LPM; Modified Allen's Test Pass; Site Drawn RIGHT RADIAL
[2025-07-11] MEDS: KCL 20 MEQ/SW 100 ML 100 ML 50 MEQ IVPB (08:52)
[2025-07-11 08:55] LABS: Influenza A QL RT-PCR Negative (Negative); Influenza B QL RT-PCR Negative (Negative); RSV RNA, RT-PCR Negative (Negative); SARS-CoV-2 RNA PCR Negative (Negative)
--- NOTE | 2025-07-11 09:00 | PC.NURSE ---
Family in room with pt. Pt is awake and conscious visiting.
[2025-07-11] MEDS: MORPHINE SULFATE (*CRX) 2 MG/ML INJ IV PUSH (09:17)
[2025-07-11] MEDS: HYDROmorphone HCL INJ (*CRX) 2 MG/ML VIAL 0.25 MG IV PUSH ×2 (09:25→09:26)
[2025-07-11] MEDS: HYDROmorphone HCL INJ (*CRX) 2 MG/ML VIAL 0.5 MG IV PUSH ×3 (09:49→20:00)
[2025-07-11] MEDS: SODIUM CHLORIDE 0.9% IV 1,000 ML 999 ML IV CONT (09:54)
--- NOTE | 2025-07-11 10:23 | PC.NURSE ---
Charge nurse called for bed placement. Pt assigned room 203
--- NOTE | 2025-07-11 10:46 | PC.NURSE ---
Pt taken to 2nd floor for admission. Family taken to waiting room.
--- NOTE | 2025-07-11 11:36 | PC.NURSE ---
Patient came to floor at 1055 today on comfort care. She is alert and oriented with confusion, no complaints of pain. Family at bedside. Awaiting new orders at this time.
[2025-07-11] MEDS: SCOPOLAMINE 1 MG PATCH 1 PATCH TRANSDERM (12:55)
--- NOTE | 2025-07-11 13:36 | PM.IMHP ---
H&P: HPI History of Present Illness Date/Time: 07/11/25 13:36 Chief Complaint: unresponsive Narrative: Patient is an 89 year old female with PMH of HTN, HLD, anemia ,chronic atrial fibrillation s/p ablation. Patient presented to the ER by EMS after having an episode of altered mental status and seizure like activity before becoming unconscious. She was conscious on arrival to the ED and was reporting chest pain and abdominal pain. In the ER patient was found to be and ventricular arrhythmias including bigeminy, then tachycardia and then any events of ventricular fibrillation. Patient required resuscitation with IV amiodarone and 1 shock. Patient was in and out of consciousness while in the ER. Patient's EKG showed that she has a second degree heart block type 2.Patient's was a DNR and family was present. Family opted to make patient is a DNR with comfort measures as she has a poor quality of life due to pain from her polyarthritis. Patient was kept on an amiodarone drip to allow time for additional family to arrive to the hospital. The decision was made for patient to be taken off of the amiodarone drip once family had arrived and be placed on comfort measures with a hospice consult if time allows. Patient had complaints of pain in the chest which correlated with events of V-tach in the ER. patient also complains of abdominal pain while in the ER. Patient arrived to the floor on amiodarone drip. Patient is alert and oriented x 2-3. Patient denies pain currently but has chronic pain at home from polyarthritis. Goals of care were confirmed with patient and family. Patient is to be DNR with comfort measures. Amiodarone drip will be stopped as all family members have arrived. Patient does not want any further treatment, testing or interventions. Hospice will be consulted as well. Orders placed for comfort medications. Review of Systems Review of Systems: All systems reviewed & are unremarkable except as noted in HPI and below PMFSH Past Medical History Medical History Anemia JUSTYN (acute kidney injury) COVID-19 Pneumonia Atrial fibrillation, chronic Hypertension Hyperlipidemia Surgical History Surgical History History of cardiac ablation for atrial fibrillation Hx of tonsillectomy Family History Family History Father Family history of malignant neoplasm Social History Social History Smoking packs per day: 1 Smoking cigarettes per day: 20.0 Years smoked: 20 Smoking pack-years: 20.00 Smoking status: Never smoker Tobacco type: cigarettes Second hand tobacco smoke exposure: No Smoking end date: 10/15/24 Alcohol intake: former Drinks per week: 7 Substance use: former Substance use type: does not use Do You Feel Safe in your Home?: Yes Lack of Transportation: No Lack of Food: Never True Current Housing: I Have Housing Concerned About Future Housing: No Difficulty Paying Gas/Electric Bills: No Difficulty Paying for Meds: No Currently Unemployed: No Education: High School Diploma/GED Difficulty w/ Childcare or Family Care: No Living arrangements: with family Gender identity (if verbalized by the patient): Female Spiritual care concerns: No Meds Home Medications and Allergies Home Medications ?Medication ?Instructions ?Recorded ?Confirmed ?Type multivitamin 1 tablet PO DAILY 12/07/24 07/11/25 History torsemide 10 mg tablet 10 mg PO QAM swelling #30 tabs 03/20/25 07/11/25 Rx docusate sodium 100 mg capsule 100 mg PO DAILY 05/31/25 07/11/25 History (Colace) ferrous sulfate 325 mg (65 mg 325 mg PO DAILY 05/31/25 07/11/25 History iron) tablet (Iron (ferrous sulfate)) oxycodone 10 mg tablet 10 mg PO BID PRN pain #60 tabs 06/22/25 07/11/25 Rx amlodipine 5 mg tablet 5 mg PO DAILY 07/02/25 07/11/25 History losartan 100 mg tablet 100 mg PO DAILY 07/02/25 07/11/25 History Allergies Allergy/AdvReac Type Severity Reaction Status Date / Time No Known Allergies Allergy Unknown Verified 07/11/25 08:00 Vital Signs Vital Signs - 24 hr 07/11/25 07:55 07/11/25 07:55 07/11/25 08:04 Temperature 97.1 F L Pulse Rate 98 97 95 Respiratory Rate 22 H Blood Pressure 171/81 H 171/81 H 174/57 H Pulse Oximetry 98 Oxygen Delivery Room Air Oxygen Flow Rate 10/01/25 08:09 07/11/25 08:14 07/11/25 08:20 Temperature Pulse Rate 45 L 40 L 82 Respiratory Rate 12 Blood Pressure Pulse Oximetry 96 Oxygen Delivery Nasal Cannula Oxygen Flow Rate 2 07/11/25 08:40 07/11/25 08:42 07/11/25 08:43 Temperature Pulse Rate 65 39 L 198 H Respiratory Rate Blood Pressure Pulse Oximetry Oxygen Delivery Oxygen Flow Rate 07/11/25 11:58 Temperature Pulse Rate Respiratory Rate Blood Pressure Pulse Oximetry 98 Oxygen Delivery Nasal Cannula Oxygen Flow Rate 4 Exam Const: General: no acute distress HENMT: Face/Nose/Sinus: Normal nares present Mouth: Yes dry mucous membranes Eyes: General: appearance normal, both eyes and all related structures Sclera: sclerae normal Neck: Neck: supple Resp: Effort & Inspection: normal respiratory effort Auscultation: diminished lung sounds Cardio: Rhythm: abnormal rhythm GI: GI Palp: Yes Soft to palpation Auscultation: normal bowel sounds Urinary Catheter: Urinary Catheter: patent and draining Skin: General skin exam: normal color and no rashes or lesions noted Neuro: Speech: normal speech Motor exam (neuro): 5/5 motor strength present throughout Sensory Exam: normal sensation Extrem: General: normal to inspection Psych: Mental Status: mental status grossly normal H&P: Results Labs Labs: Short CBC 07/11/25 Range/Units 08:15 WBC 14.5 H (4.8-10.8) K/mm3 Hgb 9.3 L (11.7-13.8) g/dL Hct 31.9 L (35.0-42.0) % Plt Count 586 H (150-420) K/mm3 BMP 07/11/25 08:15 Sodium 144 Potassium 2.6 L* Chloride 104 Carbon Dioxide 24 BUN 15 Creatinine 0.88 Glucose 152 H Calcium 9.1 Cardiac Enzymes 07/11/25 Range/Units 08:15 Total Creatine Kinase 35 (30-135) U/L Troponin I 0.038 H* (0.000-0.034) ng/mL Liver Function 07/11/25 Range/Units 08:15 Total Bilirubin 1.4 H (0.2-1.3) mg/dL AST 33 (14-36) U/L ALT 23 (6-35) U/L Alkaline Phosphatase 177 H (38-126) U/L Albumin 3.5 (3.5-5.1) g/dL Assessment and Plan Assessment and plan (1) Heart block AV second degree: Code(s): I44.1 - Atrioventricular block, second degree Status: Acute Assessment and Plan: patient does not want any further testing, interventions or treatment patient and family wish for patient to be DNR with comfort measures only patient came to floor with amiodarone drip to allow family time to arrive, family has arrived, drip will be stopped comfort medications ordered hospice consult (2) Arrhythmia: Qualifiers: Arrhythmia type: other ventricular tachycardia Qualified Code(s): I47.29 - Other ventricular tachycardia Code(s): I49.9 - Cardiac arrhythmia, unspecified Status: Acute Assessment and Plan: patient experienced multiple ventricular arrythmias in the ER including bigeminy, tachycardia and v-fib (treated with amiodarone and 1 shock) patient arrived to the floor with an amiodarone drip to allow family to arrive to the hospital family has arrived so amiodarone will be stopped patient does not want any further testing, intervention or treatments orders placed for comfort medications hospice consulted (3) Iron deficiency anemia: Code(s): D50.9 - Iron deficiency anemia, unspecified Status: Acute Assessment and Plan: comfort measures only (4) CHF (congestive heart failure): Qualifiers: Heart failure chronicity: unspecified Heart failure type: unspecified Qualified Code(s): I50.9 - Heart failure, unspecified Code(s): I50.9 - Heart failure, unspecified Status: Acute Assessment and Plan: comfort measures only if patient appears fluid overloaded will consider furosemide for comfort (5) Atrial fibrillation, chronic: Code(s): I48.20 - Chronic atrial fibrillation, unspecified Status: Chronic Assessment and Plan: comfort measures only (6) Polyarthritis: Code(s): M13.0 - Polyarthritis, unspecified Status: Acute Assessment and Plan: pain control comfort measures Quality VTE Prophylaxis VTE prophylaxis: mechanical ordered
--- NOTE | 2025-07-11 15:43 | PC.NURSE ---
Patient not wanting oxygen on at this time. Removed it per her request. Educated she could reapply at any time.
--- NOTE | 2025-07-11 16:48 | PC.NURSE ---
Patient feeling dizzy, daughter concerned she will have episode like she did before coming to ED. Patient informs she feels OK, offered to reapply oxygen, patient refuses. Patient calm and resting with respiration even and unlabored.
[2025-07-12] VITALS: BP 158/68; PULSE 51; RESP 17; TEMP 36.7; O2SAT 95
[2025-07-12] MEDS: LORazepam (*CRX) 2 MG/ML ORAL CONCENTRATE 1 ML SYRINGE 0.5 MG PO ×3 (00:55→12:43)
--- NOTE | 2025-07-12 01:10 | PC.NURSE ---
Patient noted screaming/crying in room. Call light in reach. Pt states she is in so much pain and she can't turn over. PRNs given for anxiety and pain, attempted to reposition pt in bed without success. Assisted pt to recliner, crying and yelling out persist, pt now states she is screaming because it hurts so much to breathe, SPO2 at 95% on room air O2 applied for comfort at 2L/NC, with little effectiveness, pt encouraged to allow medication time to work.
[2025-07-12] MEDS: HYDROmorphone HCL INJ (*CRX) 2 MG/ML VIAL 0.5 MG IV PUSH ×5 (01:19→12:44)
[2025-07-12] MEDS: ONDANSETRON INJ 4 MG/2 ML VIAL IV PUSH (01:27)
[2025-07-12 05:30] VITALS: O2SAT 95
[2025-07-12 08:00] VITALS: BP 164/54; PULSE 38; RESP 20; TEMP 36.9; O2SAT 100
--- NOTE | 2025-07-12 13:37 | P.DS_ITS ---
DS: Admitting Diagnosis Discharge Date 07/12/2025 Admitting Diagnosis ventricular arrthymia DS: Discharge Diagnosis Discharge Diagnosis (1) Heart block AV second degree: Code(s): I44.1 - Atrioventricular block, second degree Status: Acute Assessment and Plan: patient does not want any further testing, interventions or treatment patient and family wish for patient to be DNR with comfort measures only patient came to floor with amiodarone drip to allow family time to arrive, family has arrived, drip will be stopped comfort medications ordered hospice consult patient discharging into inpatient hospice services (2) Arrhythmia: Qualifiers: Arrhythmia type: other ventricular tachycardia Qualified Code(s): I47.29 - Other ventricular tachycardia Code(s): I49.9 - Cardiac arrhythmia, unspecified Status: Acute Assessment and Plan: patient experienced multiple ventricular arrythmias in the ER including bigeminy, tachycardia and v-fib (treated with amiodarone and 1 shock) patient arrived to the floor with an amiodarone drip to allow family to arrive to the hospital family has arrived so amiodarone will be stopped patient does not want any further testing, intervention or treatments orders placed for comfort medications hospice consulted patient discharging into inpatient hospice services today (3) Iron deficiency anemia: Code(s): D50.9 - Iron deficiency anemia, unspecified Status: Acute Assessment and Plan: comfort measures only (4) CHF (congestive heart failure): Qualifiers: Heart failure chronicity: unspecified Heart failure type: unspecified Qualified Code(s): I50.9 - Heart failure, unspecified Code(s): I50.9 - Heart failure, unspecified Status: Acute Assessment and Plan: comfort measures only if patient appears fluid overloaded will consider furosemide for comfort (5) Atrial fibrillation, chronic: Code(s): I48.20 - Chronic atrial fibrillation, unspecified Status: Chronic Assessment and Plan: comfort measures only (6) Polyarthritis: Code(s): M13.0 - Polyarthritis, unspecified Status: Acute Assessment and Plan: comfort measures pain control DS: Summary Hospital Course Reason for hospitalization: unresponsive Hospital Course: Patient is an 89 year old female with PMH of HTN, HLD, anemia ,chronic atrial fibrillation s/p ablation. Patient presented to the ER by EMS after having an episode of altered mental status and seizure like activity before becoming unconscious. She was conscious on arrival to the ED and was reporting chest pain and abdominal pain. In the ER patient was found to be and ventricular arrhythmias including bigeminy, then tachycardia and then any events of ventricular fibrillation. Patient required resuscitation with IV amiodarone and 1 shock. Patient was in and out of consciousness while in the ER. Patient's EKG showed that she has a second degree heart block type 2.Patient's was a DNR and family was present. Family opted to make patient is a DNR with comfort measures as she has a poor quality of life due to pain from her polyarthritis. Patient was kept on an amiodarone drip to allow time for additional family to arrive to the hospital. The decision was made for patient to be taken off of the amiodarone drip once family had arrived and be placed on comfort measures with a hospice consult if time allows. Patient had complaints of pain in the chest which correlated with events of V-tach in the ER. patient also complains of abdominal pain while in the ER. Patient was taken off the amiodarone drip. Patient was given hydromorphone IV for pain control. Patient has remained comfortable. Patient with heart rates in the 30's today and more sleepy. Patient being discharged from inpatient status to inpatient hospice. Time Spent with Patient Time attestation: Total time spent providing and/or coordinating discharge services: Exam Const: General: comfortable and no acute distress HENMT: Face/Nose/Sinus: Normal nares present Mouth: Yes dry mucous membranes Eyes: General: appearance normal, both eyes and all related structures Sclera: sclerae normal Neck: Neck: supple Resp: Effort & Inspection: normal respiratory effort Auscultation: diminished lung sounds Cardio: Rate: bradycardic Rhythm: abnormal rhythm Heart sounds: Murmur heart sound present systolic GI: GI Palp: Yes Soft to palpation Auscultation: normal bowel sounds Urinary Catheter: Urinary Catheter: patent and draining Skin: General skin exam: normal color and no rashes or lesions noted Neuro: Other: responds to touch, moans at times Discharge Plan Discharge Attending physician on discharge: Dat Babin Consulting providers: Becca Glez; Saul Ballesteros; Sergio Syed; Adán Gunter Discharging Clinician: Becca Glez Patient Disposition: Hospice - Medical Facility Activity: as tolerated Diet: as tolerated Patient Language: Canadian Stand Alone Forms: General Discharge Information Discharge Medications: Discontinued multivitamin Tablet 1 tablet PO DAILY torsemide 10 mg tablet 10 mg PO QAM Qty: 30 3RF oxycodone 10 mg tablet 10 mg PO BID PRN (Reason: pain) Qty: 60 0RF amlodipine 5 mg tablet 5 mg PO DAILY Rx Instructions: TAKE ONE TABLET BY MOUTH DAILY losartan 100 mg tablet 100 mg PO DAILY Rx Instructions: TAKE ONE TABLET BY MOUTH DAILY docusate sodium [Colace] 100 mg capsule 100 mg PO DAILY ferrous sulfate [Iron (ferrous sulfate)] 325 mg (65 mg iron) tablet 325 mg PO DAILY No Action No Home Medications Date of admission: 07/11/25 10:21 Primary Care Provider: Gwyn Kim Admitting Provider: Dat Babin Attending physician on admission: Dat Babin Condition: Terminal Quality VTE Prophylaxis VTE prophylaxis: mechanical ordered
--- NOTE | 2025-07-12 14:44 | PC.NURSE ---
Discharged to inpatient hospice
== END 2025-07-12 13:35 | disposition hospice, inpatient (51) ==
LOC: CHSED 08:19 → CHS2ND 10:24
PROVIDERS: Admitting Provider Internal Medicine; Emergency Provider Emergency Medicine; PCP Family Medicine; Visit Provider Internal Medicine
DX: I44.1 Atrioventricular block, second degree (principal); I47.29 Other ventricular tachycardia; Z51.5 Encounter for palliative care; J98.4 Other disorders of lung; I50.9 Heart failure, unspecified; I48.20 Chronic 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, unspecified; I11.0 Hypertensive heart disease with heart failure; D50.9 Iron deficiency anemia, unspecified; M13.0 Polyarthritis, unspecified; E78.5 Hyperlipidemia, unspecified; Z20.822 Contact with and (suspected) exposure to COVID-19; Z87.891 Personal history of nicotine dependence
CPT/HCPCS: 36415; 36600; 70450; 71045; 80053; 82550; 82805; 82948; 83605; 83735; 83880; 84484; 85025; 85055; 85610; 85730; 87040; 87637; 93005; 96365; 96366; 96367; 96375; 96376; 99285; A9270; G0378; J0283; J1171; J2270; J2405; J3480; J7030

== ENCOUNTER 2025-07-12 13:36 | HOS | payer OTHER, SELFPAY ==
--- OUTSIDE RECORDS SUMMARY | 2009-11-28 04:00 | XMS_ITS | Continuity of Care Document ---
Author Organization [facility] Address [address] [place] [address] Phone Care Team Providers Care Advertising Sales Associate Name Role Phone Zimmer OD, Heber Unavailable [...] Diagnoses Date Provider Providers Copied on Encounter [facility], [address], [place], [place], [address], [place] tel:[phone] SEC [facility] No Information 8-201 0 Zimmer OD Heber. [address], [place], [address], [place]. tel:[phone] [facility], [address] [place] [address] [address], [place], [place], [address], tel:[phone] SEC [facility] No Information 0 5-201 0 Zimmer OD Heber. [address] , [address], [place], [facility], [place]. tel:[phone] [facility], [address] [place] [address] [address], [place], [place], [address], [place] tel:[phone] [facility] No Information 0 4-201 0 Doisy Edward. [address] , [address], [place], [facility], [place]. tel:[phone] Referring Provider: Heber Zimmer OD A, [facility] [address], [place], [facility]. tel:[phone] Office/outpat ient Visit, [facility], [address] [place] [address] [address], [place], [place], [address], tel:[phone] [facility] No Information 201 0 Doisy Edward. [address] [facility] [address], [place], [facility], [place]. tel:[phone] Referring Provider: Heber Zimmer OD A, [facility] [address], [place], [facility]. tel:[phone] [facility], [address] [place] [address] [address], [place], [place], [address], [place] tel:[phone] [facility] No Information 3-200 9 Zimmer OD Heber. [address] , [address], [place], [facility], [place]. tel:[phone] [facility], [address] [place] [address] [address], [place], [place], [address], [place] tel:[phone] [facility] No Information 9-200 9 Doisy Edward. [address] , [address], [place], [facility], . tel:[phone] [facility], [address] [place] [address] [address], [place], [place], [address], tel:[phone] [facility] No Information 8200 9 Sathya Nain. [address] [facility] [address], [address], [place], [facility], . tel:[phone] Referring Provider: Heber Plunkett, [address], [place], [facility]. tel:[phone] Office/outpat ient Visit, [facility], [address] [place] [address] [address], [place], [place], [address], tel:[phone] [facility] No Information 200 9 [facility] Nain. [facility] [address], [address], [place], [facility], . tel:[phone] Referring Provider: Heber Plunkett, [employer] [address], [place], [facility]. tel:[phone] [facility] Eye [facility], [address] [place] [address] [address], [place], [place], [address], tel:[phone] [facility] No Information 5200 9 Zimmer OD Heber. [facility] [address] [address], [address], [place], [facility], [place]. tel:[phone] Family History Family Member Type Diagnosis Age At Onset No Information Payers Payer name Insurance type Covered green party ID Authoriza tion(s) No Information Social [...]
--- OUTSIDE RECORDS SUMMARY | 2025-07-12 14:15 | XMS_ITS | Encounter Summary ---
Author Organization [facility] Healthcare Address [address] [place] [address] Care Team Providers Care Test Fixture Assembler Name Role Phone Priscilla Barrera MD Primary Care Provider [phone] Kali Hunt MD Primary Care Provider [phone] Devaughn Macias MD Primary Care Provider Denis Platt MD Primary Care Provide r Gideon Campbell MD Primary Care Provider [phone] Encounter Details Date Type Department Care Team (Late st Contact Info) Description 12/15/2017 Orders Only [facility] Health Information Management [address] [place] [address] Scanning, Provider Social History Tobacco Use Types Packs/Day Years Used Date Smoking Tobacco: Former Smokeless Tobacco: Never Alcohol Use Standard Drinks/Week Comments Yes 0 (1 standard drink = 0.6 oz pur e alcohol) Comments Unknown Sex and Gender Information Value Date Recorded Sex Assigned at Not on file Legal Sex Female 8:30 AM PUBLIC RECORDS RESEARCHER Gender Identity Female 10/06/2021 4:28 PM PUBLIC RECORDS RESEARCHER Sexual Orientation Choose not to disclose 2020 4:28 PM PUBLIC RECORDS RESEARCHER documented as of this encounter Plan of Treatment Not on file documented as of this encounter Procedures Procedure Name Priority Date/Time Associated Diagnosis Comments SCAN - RADIOLOGY/IMAGING 12/18/2017 1:20 AM PUBLIC RECORDS RESEARCHER documented in this encounter Results * SCAN - RADIOLOGY/IMAGING (12/18/2017 1:20 AM PUBLIC RECORDS RESEARCHER) Anatomical Region Laterality Modality Other us Provider Scanning Edited Result - Final documented in this encounter Visit Diagnoses Not on filedocumented in this encounter Care Teams Test Fixture Assembler Relationship Specialty Start Date End Date Priscilla Barrera MD [address] [place] [address] PCP - General 01/08/17 02/07/19 Kali Hunt MD [address] [place] [address] PCP - General Family Medicine 02/08/19 01/30/20 Devaughn Macias MD [address] [place] [address] PCP - General Family Medicine 01/31/20 01/13/22 Denis Platt MD [address] [place] [address] PCP - General Family Medicine 01/14/22 07/18/23 Gideon Campbell MD [address] [place] [address] [address] [place] [address] PCP - General Family Medicine 07/19/23 documented as of this encounter
--- OUTSIDE RECORDS SUMMARY | 2025-07-12 14:15 | XMS_ITS | Encounter Summary ---
Author Organization [facility] Healthcare Address [address] [place] [address] Care Team Providers Care Science Technicians Name Role Phone Devaughn Macias MD Primary Care Provider Denis Platt MD Primary Care Provide r Gideon Campbell MD Primary Care Provider [phone] Encounter Details Date Type Department Care Team (Late st Contact Info) Description 10/15/2021 Telephone [facility] Center [address] [place] [address] Katie Hendrix, DORINDA Social History Tobacco Use Types Packs/Day Years Used Date Smoking Tobacco: Former Cigarettes Q uit: 09/28/1978 Smokeless Tobacco: Never Alcohol Use Standard Drinks/Week Comments Yes 0 (1 standard drink = 0.6 oz pur e alcohol) Comments Unknown Sex and Gender Information Value Date Recorded Sex Assigned at Not on file Legal Sex Female 8:30 AM REFERENCE LIBRARY ASSISTANT Gender Identity Female 10/06/2021 4:28 PM REFERENCE LIBRARY ASSISTANT Sexual Orientation Choose not to disclose 2020 4:28 PM REFERENCE LIBRARY ASSISTANT documented as of this encounter Plan of Treatment Not on file documented as of this encounter Visit Diagnoses Not on filedocumented in this encounter Care Teams Science Technicians Relationship Specialty Start Date End Date Devaughn Macias MD PCP - General Family Medicine 01/31/20 01/13/22 Denis Platt MD [address] [place] [address] PCP - General Family Medicine 01/14/22 07/18/23 Gideon Campbell MD 2 [facility] [address] [address] PCP - General Family Medicine 07/19/23 documented as of this encounter
--- OUTSIDE RECORDS SUMMARY | 2025-07-12 14:15 | XMS_ITS | Encounter Summary ---
Author Organization [facility] Address [address] [place] [address] Phone Care Team Providers Care Supervisor Veneer Name Role Phone Provider, Not On File Primary Care Provider Unav ailable Densi Platt MD Primary Care Provider Gideon Campbell MD Primary Care Provider [phone] Encounter Details Date Type Department Care Team (Late st Contact Info) Description 03/24/2022 Transcribe Orders [facility] Pre[facility] [address] [place] [id number] Herber Knott MD [address] [place] [address], [address] [place] [address] Pre-op testing (Primary Dx) Social [...] ABO TYPING O 04/04/2022 11:22 AM CDT [facility] BLOOD BANK RH Positive 04/04/2022 11:22 AM CDT [facility]OD [facility] ABSC Negative 04/04/2022 11:22 AM CDT [facility]OD [facility] Blood Venipuncture / Unknown 04/04/2022 9:50 AM CDT 04/04/2022 10:04 AM CDT Herber Knott MD BLOOD BANK ORDERABLES Ed ited Result - Final [facility] BLOOD BANK #[address] [place] [address] * SARS-COV-2 BY MOLECULAR (04/04/2022 9:46 AM CDT) Pathologist [facility] SARSCOV2 NOT DETECTED (Referenc e Range for this test is Not Detected) [facility] [place] ID NOW 04/04/2022 10:33 AM CDT [facility] Comment:This test was perfor med by a MOLECULAR, NON-PCR method Other NASAL STRUCTURE / Unknown Non-Phlebotomy Collection / Unknown 04/04/2022 9:46 AM CDT 04/04/2022 10:04 AM CDT Narrative [facility] - 04/04/2022 10:33 AM CDT [...] information for Clinicians can be found at: https://www.fda.gov/media/748891/download Additional information for Patients can be found at: https://www.fda.gov/media/500142/download Herber Knott MD MICROBIOLOGY - GENERAL O RDERABLES Final Result [facility] [address] [place] [address] documented in this encounter Visit Diagnoses Diagnosis Pre-op testing- Primary Preoperative examination, unspecified documented in this encounter Care Teams Supervisor Veneer Relationship Specialty Start Date End Date Provider, Not On File [place] PCP - General 03/19/22 04/07/22 Denis Platt MD [address] [place] [address] PCP - General Pediatrics 04/08/22 02/15/24 Gideon Campbell MD [address] [place] [address] [place] [address] PCP - General Home Restoration Service Cleaner 02/16/24 documented as of this encounter
--- OUTSIDE RECORDS SUMMARY | 2025-07-12 14:15 | XMS_ITS | Clinical Summary ---
Author Organization [facility] Address [address] [place] [address] Phone Care Team Providers Care Auto Driver Name Role Phone Gideon Campbell MD Primary Care Provider [phone] Allergies No known active allergies Medications warfarin [...] this topic Medical Devices Implanted Type Area Strategic Marketing Associate Device Identifier Shelf Expiration Date Model / Serial / Lot Shell Actb 54mm Hip Sector Gription Black - [id number] Implanted:Qty: 1 on 04/07/2022 by Herber Knott MD at [facility] IMPLANT Left: Hip [employer] 02/08/2032 [id number] / [id number] / [id number] Liner Actb Altrx Black Neutral 54mm 36mm Hip - [id number] Implanted:Qty: 1 on 04/07/2022 by Herber Knott MD at [facility] IMPLANT Left: Hip [employer] 08/10/2026 [id number] / [id number] / [id number] Screw Bone 6.5mm 35mm Black Dome 4 Point Cut Flute Hip Actb Canc Slftp Hex Head Blunt Tip - [id number] Implanted:Qty: 1 on 04/07/2022 by Herber Knott MD at [facility] IMPLANT Left: Hip [employer] 09/09/2031 [id number] / [id number] / [id number] Head Fem 1.5mm /14 Taper 36mm Hip Cementless Biolox Delta Articul/Warren - [id number] Implanted:Qty: 1 on 04/07/2022 by Herber Knott MD at [facility] IMPLANT Left: Hip [employer] 02/07/2027 [id number] / [id number] / [id number] Depuy Femoral Stem /14 Taper Actis Duofix Hip Prothesis Cementless, High Vollar Implanted:Qty: 1 on 04/07/2022 by Herber Knott MD at [facility] Left: Hip [employer] 12/09/2031 [id number] / [id number] / [id number] Insurance [facility] on file Advance Directives * Full Code (Latest Code Status on File) Date Activated Date Inactivated Comments 04/17/2022 9:30 AM Care Teams Auto Driver Relationship Specialty Start Date End Date Gideon Campbell MD [address] [place] [address] [place] [address] PCP - General Fundraiser 02/16/24
--- OUTSIDE RECORDS SUMMARY | 2025-07-12 14:15 | XMS_ITS | Encounter Summary ---
Author Organization [facility] Address [address] [facility] [address] [place] [address] Care Team Providers Care Change Attendant Name Role Phone Priscilla Barrera MD Primary Care Provider [phone] Priscilla Barrera MD Primary Care Provider [phone] Kali Hunt MD Primary Care Provider [phone] Devaughn Macias MD Primary Care Provider Denis Platt MD Primary Care Provide r Gideon Campbell MD Primary Care Provider [phone] Encounter Details Date Type Department Care Team (Late st Contact Info) Description 10/29/2016 Orders Only [facility] Provider, MD Peggy [address] [place] [address] Social History Tobacco Use Types Packs/Day Years Used Date Smoking Tobacco: Former Cigarettes Q uit: 10/11/1977 Alcohol Use Standard Drinks/Week Comments Yes 0 (1 standard drink = 0.6 oz pur e alcohol) Comments Unknown Sex and Gender Information Value Date Recorded Sex Assigned at Not on file Legal Sex Female 8:30 AM SHREDDED FILLER HOPPER FEEDER Gender Identity Female 10/06/2021 4:28 PM SHREDDED FILLER HOPPER FEEDER Sexual Orientation Choose not to disclose 2020 4:28 PM SHREDDED FILLER HOPPER FEEDER documented as of this encounter Plan [...] on filedocumented in this encounter Care Teams Change Attendant Relationship Specialty Start Date End Date Priscilla Barrera MD [address] [place] [address] PCP - General 01/08/17 02/07/19 Priscilla Barrera MD [address] [place] [address] PCP - General 08/27/16 01/07/17 Kali Hunt MD [address] [place] [address] PCP - General Family Medicine 02/08/19 01/30/20 Devaughn Macias MD [address] [place] [address] PCP - General Family Medicine 01/31/20 01/13/22 Denis Platt MD [address] [place] [address] PCP - General Family Medicine 01/14/22 07/18/23 Gideon Campbell MD [address] [place] [address] [place] [address] PCP - General Family Medicine 07/19/23 documented as of this encounter
--- OUTSIDE RECORDS SUMMARY | 2025-07-12 14:15 | XMS_ITS | Encounter Summary ---
Author Organization [facility] Healthcare Address [address] [place] [address] Care Team Providers Care Application Penetration Tester Name Role Phone Devaughn Macias MD Primary Care Provider Denis Platt MD Primary Care Provide r Gideon Campbell MD Primary Care Provider [phone] Encounter Details Date Type Department Care Team (Late st Contact Info) Description 10/17/2021 Telephone [facility] Imaging Center [address] [place] [address] Katie Hendrix, DORINDA Social History Tobacco Use Types Packs/Day Years Used Date Smoking Tobacco: Former Cigarettes Q uit: 09/28/1978 Smokeless Tobacco: Never Alcohol Use Standard Drinks/Week Comments Yes 0 (1 standard drink = 0.6 oz pur e alcohol) Comments Unknown Sex and Gender Information Value Date Recorded Sex Assigned at Not on file Legal Sex Female 8:30 AM EXTENSION SERVICE SPECIALIST IN CHARGE Gender Identity Female 10/06/2021 4:28 PM EXTENSION SERVICE SPECIALIST IN CHARGE Sexual Orientation Choose not to disclose 2020 4:28 PM EXTENSION SERVICE SPECIALIST IN CHARGE documented as of this encounter Plan of Treatment Not on file documented as of this encounter Visit Diagnoses Not on filedocumented in this encounter Care Teams Application Penetration Tester Relationship Specialty Start Date End Date Devaughn Macias MD PCP - General Family Medicine 01/31/20 01/13/22 Denis Platt MD [address] [place] [address] PCP - General Family Medicine 01/14/22 07/18/23 Gideon Campbell MD [facility] [address] [address] PCP - General Family Medicine 07/19/23 documented as of this encounter
--- OUTSIDE RECORDS SUMMARY | 2025-07-12 14:16 | XMS_ITS | Encounter Summary ---
Author Organization [facility] Healthcare Address [address] [place] [address] Care Team Providers Care Allied Health Instructor Name Role Phone Devaughn Macias MD Primary Care Provider Denis Platt MD Primary Care Provide r Gideon Campbell MD Primary Care Provider [phone] Encounter Details Date Type Department Care Team (Late st Contact Info) Description 06/18/2020 Telephone [facility] Imaging Center [address] [place] [address] Jagdish Ortega RT Social History Tobacco Use Types Packs/Day Years Used Date Smoking Tobacco: Former Cigarettes Q uit: 09/28/1978 Smokeless Tobacco: Never Alcohol Use Standard Drinks/Week Comments Yes 0 (1 standard drink = 0.6 oz pur e alcohol) Comments Unknown Sex and Gender Information Value Date Recorded Sex Assigned at Not on file Legal Sex Female 8:30 AM MEDICAL FACILITIES SECTION DIRECTOR Gender Identity Female 10/06/2021 4:28 PM MEDICAL FACILITIES SECTION DIRECTOR Sexual Orientation Choose not to disclose 2020 4:28 PM MEDICAL FACILITIES SECTION DIRECTOR documented as of this encounter Plan of Treatment Not on file documented as of this encounter Visit Diagnoses Not on filedocumented in this encounter Care Teams Allied Health Instructor Relationship Specialty Start Date End Date Devaughn Macias MD PCP - General Family Medicine 01/31/20 01/13/22 Denis Paltt MD [address] [place] [address] PCP - General Family Medicine 01/14/22 07/18/23 Gideon Campbell MD [address] [facility] [address] [place] [address] PCP - General Family Medicine 07/19/23 documented as of this encounter
--- OUTSIDE RECORDS SUMMARY | 2025-07-12 14:16 | XMS_ITS | Encounter Summary ---
Author Organization [facility] Address [address] [facility] [address] [place] [address] Care Team Providers Care Reversal Print Inspector Name Role Phone Priscilla Barrera MD Primary Care Provider [phone] Priscilla Barrera MD Primary Care Provider [phone] Kali Hunt MD Primary Care Provider [phone] Devaughn Macias MD Primary Care Provider Denis Platt MD Primary Care Provide r Gideon Campbell MD Primary Care Provider [phone] Encounter Details Date Type Department Care Team (Late st Contact Info) Description 12/24/2016 Orders Only [facility] Provider, MD Peggy [address] [place] [address] Social History Tobacco Use Types Packs/Day Years Used Date Smoking Tobacco: Former Cigarettes Q uit: 10/11/1977 Alcohol Use Standard Drinks/Week Comments Yes 0 (1 standard drink = 0.6 oz pur e alcohol) Comments Unknown Sex and Gender Information Value Date Recorded Sex Assigned at Not on file Legal Sex Female 8:30 AM CITY CARRIER ASSISTANT Gender Identity Female 10/06/2021 4:28 PM CITY CARRIER ASSISTANT Sexual Orientation Choose not to disclose 2020 4:28 PM CITY CARRIER ASSISTANT documented as of this encounter Plan [...] on filedocumented in this encounter Care Teams Reversal Print Inspector Relationship Specialty Start Date End Date Priscilla Barrera MD [address] [place] [address] PCP - General 01/08/17 02/07/19 Priscilla Barrera MD [address] [place] [address] PCP - General 08/27/16 01/07/17 Kali Hunt MD [address] [place] [address] PCP - General Family Medicine 02/08/19 01/30/20 Devaughn Macias MD [address] [place] [address] PCP - General Family Medicine 01/31/20 01/13/22 Denis Platt MD [address] [place] [address] PCP - General Family Medicine 01/14/22 07/18/23 Gideon Campbell MD [address] [place] [address] [place] [address] PCP - General Family Medicine 07/19/23 documented as of this encounter
--- OUTSIDE RECORDS SUMMARY | 2025-07-12 14:16 | XMS_ITS | Encounter Summary ---
Author Organization [facility] Address [address] [facility] [address] [place] [address] Care Team Providers Care Fabric Designer Name Role Phone Priscilla Barrera MD Primary Care Provider [phone] Priscilla Barrera MD Primary Care Provider [phone] Priscilla Barrera MD Primary Care Provider [phone] Kali Hunt MD Primary Care Provider [phone] Devaughn Macias MD Primary Care Provider Denis Platt MD Primary Care Provide r Gideon Campbell MD Primary Care Provider [phone] Encounter Details Date Type Department Care Team (Late st Contact Info) Description 06/24/2016 Orders Only [facility] Provider, MD Peggy [address] [place] [id number] Social History Tobacco Use Types Packs/Day Years Used Date Smoking Tobacco: Former Cigarettes Q uit: 10/11/1977 Alcohol Use Standard Drinks/Week Comments Yes 0 (1 standard drink = 0.6 oz pur e alcohol) Comments Unknown Sex and Gender Information Value Date Recorded Sex Assigned at Not on file Legal Sex Female 8:30 AM LACQUER COATER Gender Identity Female 10/06/2021 4:28 PM LACQUER COATER Sexual Orientation Choose not to disclose 2020 4:28 PM LACQUER COATER documented as of this encounter Plan of [...] on filedocumented in this encounter Care Teams Fabric Designer Relationship Specialty Start Date End Date Priscilla Barrera MD [address] [place] [address] PCP - General 01/08/17 02/07/19 Priscilla Barrera MD [address] [place] [address] PCP - General 08/27/16 01/07/17 Priscilla Barrera MD [address] [place] [address] PCP - General 01/30/16 08/26/16 Kali Hunt MD [address] [place] [address] PCP - General Family Medicine 02/08/19 01/30/20 Devaughn Macias MD [address] [place] [address] PCP - General Family Medicine 01/31/20 01/13/22 Denis Platt MD [address] [place] [address] PCP - General Family Medicine 01/14/22 07/18/23 Gideon Campbell MD [address] [facility] [address] [place] [address] PCP - General Family Medicine 07/19/23 documented as of this encounter
--- OUTSIDE RECORDS SUMMARY | 2025-07-12 14:16 | XMS_ITS | Encounter Summary ---
Author Organization [facility] Address [address] [facility] [address] [place] [address] Care Team Providers Care Wood Getter Name Role Phone Priscilla Barrera MD Primary Care Provider [phone] Priscilla Barrera MD Primary Care Provider [phone] Priscilla Barrera MD Primary Care Provider [phone] Kali Hunt MD Primary Care Provider [phone] Devaughn Macias MD Primary Care Provider Denis Platt MD Primary Care Provide r Gideon Campbell MD Primary Care Provider [phone] Encounter Details Date Type Department Care Team (Late st Contact Info) Description 07/23/2016 Orders Only [facility] Provider, MD Peggy [address] [place] [address] Social History Tobacco Use Types Packs/Day Years Used Date Smoking Tobacco: Former Cigarettes Q uit: 10/11/1977 Alcohol Use Standard Drinks/Week Comments Yes 0 (1 standard drink = 0.6 oz pur e alcohol) Comments Unknown Sex and Gender Information Value Date Recorded Sex Assigned at Not on file Legal Sex Female 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 Gender Identity Female 10/06/2021 4:28 PM CREASING MACHINE OPERATOR Sexual Orientation Choose not to disclose 2020 4:28 PM CREASING MACHINE OPERATOR documented as of this encounter [...] filedocumented in this encounter Care Teams Wood Getter Relationship Specialty Start Date End Date Priscilla Barrera MD [address] [place] [address] PCP - General 01/08/17 02/07/19 Priscilla Barrera MD [address] [place] [address] PCP - General 08/27/16 01/07/17 Priscilla Barrera MD [address] [place] [address] PCP - General 01/30/16 08/26/16 Kali Hunt MD [address] [place] [address] PCP - General Family Medicine 02/08/19 01/30/20 Devaughn Macias MD [address] [place] [address] PCP - General Family Medicine 01/31/20 01/13/22 Denis Platt MD [address] [place] [address] PCP - General Family Medicine 01/14/22 07/18/23 Gideon Campbell MD [address] [facility] [address] [place] [address] PCP - General Family Medicine 07/19/23 documented as of this encounter
--- OUTSIDE RECORDS SUMMARY | 2025-07-12 14:16 | XMS_ITS | Encounter Summary ---
Author Organization [facility] Address [address] [facility] [address] [place] [address] Care Team Providers Care Proof Operator Name Role Phone Priscilla Barrera MD Primary Care Provider [phone] Priscilla Barrera MD Primary Care Provider [phone] Priscilla Barrera MD Primary Care Provider [phone] Kali Hunt MD Primary Care Provider Devaughn Macias MD Primary Care Provider Denis Platt MD Primary Care Provide r Gideon Campbell MD Primary Care Provider [phone] Encounter Details Date Type Department Care Team (Late st Contact Info) Description 07/22/2016 Orders Only [facility] Provider, MD Peggy [address] [place] [address] Social History Tobacco Use Types Packs/Day Years Used Date Smoking Tobacco: Former Cigarettes Q uit: 10/11/1977 Alcohol Use Standard Drinks/Week Comments Yes 0 (1 standard drink = 0.6 oz pur e alcohol) Comments Unknown Sex and Gender Information Value Date Recorded Sex Assigned at Not on file 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 Sex Female 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 Gender Identity Female 10/06/2021 4:28 PM FRAME REPAIRER Sexual Orientation Choose not to disclose 2020 4:28 PM FRAME REPAIRER documented as of this encounter Plan [...] on filedocumented in this encounter Care Teams Proof Operator Relationship Specialty Start Date End Date Priscilla Barrera MD [address] [place] [address] PCP - General 01/08/17 02/07/19 Priscilla Barrera MD [address] [place] [address] PCP - General 08/27/16 01/07/17 Priscilla Barrera MD [address] [place] [address] PCP - General 01/30/16 08/26/16 Kali Hunt MD [address] [place] [address] PCP - General Family Medicine 02/08/19 01/30/20 Devaughn Macias MD [address] [place] [address] PCP - General Family Medicine 01/31/20 01/13/22 Denis Platt MD [address] [place] [address] PCP - General Family Medicine 01/14/22 07/18/23 Gideon Campbell MD [address] [facility] [address] [place] [address] PCP - General Family Medicine 07/19/23 documented as of this encounter
--- OUTSIDE RECORDS SUMMARY | 2025-07-12 14:16 | XMS_ITS | Clinical Summary ---
Author Organization [facility] Address [address] [place] [address] Care Team Providers Care Multicraft Operator Name Role Phone Gideon Campbell MD Primary Care Provider [phone] Allergies No known active allergies Medications ascorbic [...] 06/15/2023 Assessment & Plan (10/18/2023 2:47 PM SEALING MACHINE OPERATOR): Worsening sx at this time Weight loss 01/27/2023 Assessment & Plan (10/18/2023 2:38 PM SEALING MACHINE OPERATOR): Wt Readings from Last 3 [...] is recommended that he remain anticoagulated for thromboprophylaxis.[id number]=3. Left carotid bruit 10/13/2017 Ventricular ectopy 05/17/2017 [...] 04/07/2017 Assessment & Plan (10/18/2023 2:39 PM SEALING MACHINE OPERATOR): BP Readings from Last 3 [...] EKG. Assessment & Plan (08/19/2017 10:05 AM SEALING MACHINE OPERATOR): Post repeat ablation of her [...] an office visit and 12 lead EKG. [facility] current use of anticoagulant therapy 0 03/29/2017 [...] bleeding Assessment & Plan (08/19/2017 10:05 AM SEALING MACHINE OPERATOR): She remains anticoagulated on Coumadin. She has a [id number]-[id number] score of 4, therefore it is recommended that she remain anticoagulated for thromboprophylaxis. 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 Family History Medical [...] on file Legal Sex Female 8:30 AM SEALING MACHINE OPERATOR Gender Identity Female 10/06/2021 4:28 PM SEALING MACHINE OPERATOR Sexual Orientation Choose not to disclose 2020 4:28 PM SEALING MACHINE OPERATOR Obstetrics History Last Filed Vital [...] Body Mass Index 21.52 12/13/2023 10:47 AM SEALING MACHINE OPERATOR Plan of Treatment Health Maintenance [...] 06/18/2023, 08/06/2022, Additional history exists Insurance MEDICARE [facility] MEDICARE ADVANTAGE [facility] MEDICARE ADVANTAGE Care Teams Multicraft Operator Relationship Specialty Start Date End Date Gideon Campbell MD [address] [place] [address] [address] [place] [address] PCP - General Family Medicine 07/19/23
[2025-07-12 14:34] VITALS: PULSE 34; RESP 18; O2SAT 94
[2025-07-12] MEDS: SODIUM CHLORIDE 0.9% IV 1,000 ML 20 ML IV CONT (14:35)
[2025-07-12] MEDS: LORazepam (*CRX) 2 MG/ML ORAL CONCENTRATE 1 ML SYRINGE 0.5 MG PO ×2 (15:30→19:11)
[2025-07-12] MEDS: MORPHINE SULFATE (*CRX) 2 MG/ML INJ IV PUSH ×3 (15:34→20:46)
[2025-07-12] MEDS: MORPHINE SULFATE (*CRX) 2 MG/ML INJ 1 MG IV PUSH (19:11)
--- NOTE | 2025-07-12 21:35 | PC.NURSE ---
Rounded to check on pt, family not in room as they went home for a bit. Upon reassessment after given pt her scheduled Morphine, no breathing or movement noted, no heart sounds noted. @nd Rn Dian, thoracic medicine physician called and verified pt w/ no pulses or resp present. TOD is [id number]
--- NOTE | 2025-08-29 22:28 | PM.DDS ---
Discharge Summary Date and Time Date of : 07/12/25 Time of : 21:35 Provider Pronounced By: 2 RNs Name of First RN That Pronounced: Nany Mcdowell Name of Second RN That Pronounced: Dian Salgado Probable Cause of Probable Cause of : 2nd degree AV block Summary Hospital Course: Patient is an 89 year old female with PMH of HTN, HLD, anemia ,chronic atrial fibrillation s/p ablation. Patient presented to the ER by EMS after having an episode of altered mental status and seizure like activity before becoming unconscious. She was conscious on arrival to the ED and was reporting chest pain and abdominal pain. In the ER patient was found to be and ventricular arrhythmias including bigeminy, then tachycardia and then any events of ventricular fibrillation. Patient required resuscitation with IV amiodarone and 1 shock. Patient was in and out of consciousness while in the ER. Patient's EKG showed that she has a second degree heart block type 2.Patient's was a DNR and family was present. Family opted to make patient is a DNR with comfort measures as she has a poor quality of life due to pain from her polyarthritis. Patient was kept on an amiodarone drip to allow time for additional family to arrive to the hospital. The decision was made for patient to be taken off of the amiodarone drip once family had arrived and be placed on comfort measures with a hospice consult if time allows. Patient had complaints of pain in the chest which correlated with events of V-tach in the ER. patient also complains of abdominal pain while in the ER. After arrival to the floor and family had arrived patient was taken off the amiodarone drip. Patient was given hydromorphone IV for pain control. Patient was transitioned to inpatient hospice. Patient was provided with comfort medications as needed. Patient was pronounced at 2135 by two RN's. No autopsy was requested. Family was present at the hospital. Additional Data Confirmation of as documented by pronouncing clinician: Pupillary Reflex, Palpable Pulses, Response to Stimuli, Heart Tones and Breath Sounds Name of Provider Notified: Becca Glez NP Time Provider Notified: 21:45 Provider Requests Autopsy: No Family Requests Autopsy: No Date [facility] Notified of : 07/12/25 Time [facility] Notified of : 22:02 Hospice patient?: Yes
== END 2025-07-12 21:35 | disposition expired | DRG 951 ==
PROVIDERS: Admitting Provider Internal Medicine; PCP Family Medicine; Visit Provider Internal Medicine
DX: Z51.5 Encounter for palliative care (principal); I44.1 Atrioventricular block, second degree; Z66 Do not resuscitate; D64.9 Anemia, unspecified; E78.5 Hyperlipidemia, unspecified; I10 Essential (primary) hypertension; R56.9 Unspecified convulsions; M13.0 Polyarthritis, unspecified
CPT/HCPCS: A9270; J2270; J7030